=== PATIENT | female | born 1990 | race African-American/Black ===

== ENCOUNTER 2018-08-12 08:35 | Observation (INO) | payer OTHER ==
--- OUTSIDE RECORDS SUMMARY | 2018-08-12 08:40 | XMS REPORT | Clinical Summary ---
:1990 Author Organization Formerly [facility] Address [address] [place] [address] Care Team Providers Name Role Phone Radha Campos MD Primary Care Provider Allergies Active Allergy Reactions Severity Noted Date Comments Ondansetron Hcl (Pf) Nausea And Vomiting Low 07/10/2015 Medications Medication Sig Dispensed Refills Start Date End Date Status folic acid (FOLVITE) 1 MG Take 2 mg by 0 Active tabletIndications: folate mouth daily. deficiency penicillin v potassium Take 250 mg by 0 Active (VEETID) 250 MG tablet mouth every 12 (twelve) hours. HYDROmorphone (DILAUDID) Take 8 mg by 0 Active 8 MG tablet mouth every 6 (six) hours as needed for Pain. apixaban (ELIQUIS) 2.5 mg Take 2.5 mg by 0 Active Tab tablet mouth 2 (two) times daily. ALPRAZolam (XANAX) 1 MG Take 1 mg by 0 Active tablet mouth 2 (two) times daily as needed for Anxiety. PROAIR HFA 90 Inhale 1 puff 0 07/04/2018 Active mcg/actuation inhaler by mouth via inhaler every 6 (six) hours as needed. VITAMIN D2 50,000 unit Take 1 capsule 0 07/07/2018 Active capsule by mouth once a week. prochlorperazine Take 1 tablet 0 05/26/2018 Active (COMPAZINE) 10 MG tablet by mouth every 8 (eight) hours as needed nausea. Active Problems Problem Noted Date Leukocytosis 11/03/2015 Pneumonia 11/03/2015 Sickle cell anemia 07/11/2015 Sickle cell crisis 07/10/2015 Encounters Date Type Specialty Care Team Description 08/02/2018 - Hospital Encounter Oncology Dustin Jordan Sickle cell crisis (HCC) (Primary Dx); 08/10/2018 MD Woody Leukocytosis, unspecified type; Peter Reyes, Sickle cell pain crisis (HCC); Tamera Castano MD Sickle cell anemia with pain (HCC) Laith Mejia MD Changela, Kinjal M., MD 08/02/2018 Travel after 08/11/2017 Family History Medical History Relation Name Comments Unremarkable Brother Seizures Father Sickle cell trait Father Sickle cell trait Mother Unremarkable Sister Unremarkable Sister Relation Name Status Comments Brother Alive Father Alive Mother Alive Sister Alive Sister Alive Social History Tobacco Use Types Packs/Day Years Used Date Never Smoker Smokeless Tobacco: Never Used Alcohol Use Drinks/Week oz/Week Comments No Sex Assigned at Date Recorded Not on file Job Start Date Occupation Industry Not on file Not on file Not on file Travel History Travel Start Travel End No recent travel history available. Last Filed Vital Signs Vital Sign Reading Time Taken Blood Pressure 123/74 08/10/2018 11:00 AM CDT Pulse 75 08/10/2018 11:00 AM CDT Temperature 36.1 C (97 F) 08/10/2018 11:00 AM CDT Respiratory Rate 19 08/10/2018 11:59 AM CDT Oxygen Saturation 100% 08/10/2018 11:59 AM CDT Inhaled Oxygen Concentration - - Weight 74.8 kg (164 lb 12.8 oz) 08/04/2018 7:45 AM CDT Height 157.5 cm (5' 2") 08/02/2018 6:17 AM CDT Body Mass Index 30.14 08/04/2018 7:45 AM CDT Plan of Treatment Not on file Procedures Procedure Name Priority Date/Time Associated Comments Diagnosis TRANSFUSION SERVICE 08/10/2018 6:00 REPORT - SCAN PM CDT (CELLAVISION MANUAL Routine 08/10/2018 5:31 Results for this DIFF) AM CDT procedure are in the results section. CBC W/PLT COUNT & AUTO Routine 08/10/2018 5:31 Results for this DIFFERENTIAL AM CDT procedure are in the results section. CBC W/PLT COUNT & AUTO Routine 08/10/2018 5:31 Results for this DIFFERENTIAL AM CDT procedure are in the results section. RETICULOCYTE COUNT Routine 08/10/2018 5:31 Results for this AM CDT procedure are in the results section. PREPARE LEUKO-REDUCED Routine 08/09/2018 11:54 Results for this RBC PM CDT procedure are in the results section. TRANSFUSION SERVICE 08/09/2018 6:01 REPORT - SCAN PM CDT (CELLAVISION MANUAL Routine 08/09/2018 3:23 Results for this DIFF) AM CDT procedure are in the results section. CBC W/PLT COUNT & AUTO Routine 08/09/2018 3:23 Results for this DIFFERENTIAL AM CDT procedure are in the results section. CBC W/PLT COUNT & AUTO Routine 08/09/2018 3:23 Results for this DIFFERENTIAL AM CDT procedure are in the results section. RETICULOCYTE COUNT Routine 08/09/2018 3:23 Results for this AM CDT procedure are in the results section. TRANSFUSE Routine 08/08/2018 7:28 LEUKO-REDUCED RED PM CDT BLOOD CELLS TYPE AND SCREEN, Routine 08/08/2018 12:04 Results for this AUTOMATED PM CDT procedure are in the results section. CBC (HEMOGRAM ONLY) Routine 08/08/2018 9:48 Results for this AM CDT procedure are in the results section. (CELLAVISION MANUAL Routine 08/08/2018 5:20 Results for this DIFF) AM CDT procedure are in the results section. CBC W/PLT COUNT & AUTO Routine 08/08/2018 5:20 Results for this DIFFERENTIAL AM CDT procedure are in the results section. CBC W/PLT COUNT & AUTO Routine 08/08/2018 5:20 Results for this DIFFERENTIAL AM CDT procedure are in the results section. RETICULOCYTE COUNT Routine 08/08/2018 5:20 Results for this AM CDT procedure are in the results section. (CELLAVISION MANUAL CRISTINA 08/07/2018 4:31 Results for this DIFF) AM CDT procedure are in the results section. CBC W/PLT COUNT & AUTO Add-On 08/07/2018 4:31 Results for this DIFFERENTIAL AM CDT procedure are in the results section. CBC W/PLT COUNT & AUTO Add-On 08/07/2018 4:31 Results for this DIFFERENTIAL AM CDT procedure are in the results section. RETICULOCYTE COUNT Routine 08/07/2018 4:31 Results for this AM CDT procedure are in the results section. RETICULOCYTE COUNT Routine 08/06/2018 6:31 Results for this AM CDT procedure are in the results section. (CELLAVISION MANUAL Routine 08/05/2018 5:02 Results for this DIFF) AM CDT procedure are in the results section. CBC W/PLT COUNT & AUTO Routine 08/05/2018 5:02 Results for this DIFFERENTIAL AM CDT procedure are in the results section. RETICULOCYTE COUNT Routine 08/05/2018 5:02 Results for this AM CDT procedure are in the results section. CBC W/PLT COUNT & AUTO Routine 08/05/2018 5:02 Results for this DIFFERENTIAL AM CDT procedure are in the results section. PHOSPHORUS Routine 08/05/2018 5:02 Results for this AM CDT procedure are in the results section. MAGNESIUM Routine 08/05/2018 5:02 Results for this AM CDT procedure are in the results section. BASIC METABOLIC PANEL Routine 08/05/2018 5:02 Results for this (7) AM CDT procedure are in the results section. (CELLAVISION MANUAL Routine 08/04/2018 3:18 Results for this DIFF) AM CDT procedure are in the results section. CBC W/PLT COUNT & AUTO Routine 08/04/2018 3:18 Results for this DIFFERENTIAL AM CDT procedure are in the results section. RETICULOCYTE COUNT Routine 08/04/2018 3:18 Results for this AM CDT procedure are in the results section. CBC W/PLT COUNT & AUTO Routine 08/04/2018 3:18 Results for this DIFFERENTIAL AM CDT procedure are in the results section. PHOSPHORUS Routine 08/04/2018 3:18 Results for this AM CDT procedure are in the results section. MAGNESIUM Routine 08/04/2018 3:18 Results for this AM CDT procedure are in the results section. BASIC METABOLIC PANEL Routine 08/04/2018 3:18 Results for this (7) AM CDT procedure are in the results section. CBC W/PLT COUNT & AUTO Routine 08/03/2018 5:54 Results for this DIFFERENTIAL PM CDT procedure are in the results section. CBC W/PLT COUNT & AUTO Routine 08/03/2018 5:54 Results for this DIFFERENTIAL PM CDT procedure are in the results section. (CELLAVISION MANUAL Routine 08/03/2018 7:43 Results for this DIFF) AM CDT procedure are in the results section. CBC W/PLT COUNT & AUTO Routine 08/03/2018 7:43 Results for this DIFFERENTIAL AM CDT procedure are in the results section. CBC W/PLT COUNT & AUTO Routine 08/03/2018 7:43 Results for this DIFFERENTIAL AM CDT procedure are in the results section. RETICULOCYTE COUNT Routine 08/03/2018 7:43 Results for this AM CDT procedure are in the results section. (CELLAVISION MANUAL Routine 08/03/2018 2:46 Results for this DIFF) AM CDT procedure are in the results section. CBC W/PLT COUNT & AUTO Routine 08/03/2018 2:46 Results for this DIFFERENTIAL AM CDT procedure are in the results section. CBC W/PLT COUNT & AUTO Routine 08/03/2018 2:46 Results for this DIFFERENTIAL AM CDT procedure are in the results section. PHOSPHORUS Routine 08/03/2018 2:46 Results for this AM CDT procedure are in the results section. MAGNESIUM Routine 08/03/2018 2:46 Results for this AM CDT procedure are in the results section. BASIC METABOLIC PANEL Routine 08/03/2018 2:46 Results for this (7) AM CDT procedure are in the results section. CT CHEST PE TEST STAT 08/02/2018 1:37 Results for this DESIGN PM CDT procedure are in the results section. BLOOD CULTURE Routine 08/02/2018 11:18 Results for this AM CDT procedure are in the results section. SCREEN, Routine 08/02/2018 10:34 Results for this URINE AM CDT procedure are in the results section. URINALYSIS W/ REFLEX Routine 08/02/2018 10:34 Results for this URINE CULTURE AM CDT procedure are in the results section. BLOOD CULTURE Routine 08/02/2018 10:04 Results for this AM CDT procedure are in the results section. XR CHEST 2 VIEWS STAT 08/02/2018 3:49 Results for this AM CDT procedure are in the results section. CBC W/PLT COUNT & AUTO STAT 08/02/2018 2:23 Results for this DIFFERENTIAL AM CDT procedure are in the results section. RETICULOCYTE COUNT STAT 08/02/2018 2:23 Results for this AM CDT procedure are in the results section. COMPREHENSIVE STAT 08/02/2018 2:23 Results for this METABOLIC PANEL AM CDT procedure are in the results section. CBC W/PLT COUNT & AUTO STAT 08/02/2018 2:23 Results for this DIFFERENTIAL AM CDT procedure are in the results section. after 08/11/2017 Results TRANSFUSION SERVICE REPORT - SCAN (08/10/2018 6:00 PM CDT)Only the most recent of2 resultswithin the time period is included. Narrative Performed At Manual Differential (08/10/2018 5:31 AM CDT)Only the most recent of8 resultswithin the time period is included. % Neutros 55 % [facility] % Lymphs 26 % [facility] % Monos 13 % [facility] % Eos 1 % [facility] % Baso 2 % [facility] % Myelo 2 (H) 0 - 0 % [facility] % Promyelo 1 (H) 0 - 0 % [facility] # Neutros 7.26 (H) 1.56 - 6.13 K/ul [facility] # Lymphs 3.43 1.18 - 3.74 K/ul [facility] # Monos 1.72 (H) 0.24 - 0.36 K/uL [facility] # Eos 0.13 0.04 - 0.36 K/uL [facility] # Baso 0.26 (H) 0.01 - 0.08 K/uL [facility] # Myelo 0.26 (H) 0.00 - 0.00 K/uL [facility] # Promyelo 0.13 (H) 0.00 - 0.00 K/uL [facility] Total Counted 100 [facility] nRBC (manual) 20 (H) 0 - 0 /100 WBC [facility] WBC Morphology Normal [facility] Giant Platelet Present [facility] Polychromasia 2+ moderate [facility] Anisocytosis 1+ few [facility] Microcytes 1+ few [facility] Macrocytes 1+ few [facility] Poikilocytes 2+ moderate [facility] Target Cells 1+ few [facility] Schistocytes 1+ few [facility] Sickle Cells 2+ moderate [facility] Isabel Cells 1+ few [facility] Artifact Present [facility] Platelet Conc Adequate [facility] Specimen Blood Narrative Performed At Received comment: [facility] User comments: Slide comments: Performing Organization Address City/State/Zipcode Phone Number [facility] [address] [place] [address] [phone] CENTER CBC with platelet count + automated diff (08/10/2018 5:31 AM CDT)Only the most recent of10 resultswithin the time period is included. WBC 13.2 (H) 3.5 - 10.5 K/L [facility] RBC 2.47 (L) 3.93 - 5.22 M/L [facility] Hemoglobin 8.4 (L) 11.2 - 15.7 GM/DL [facility] Hematocrit 23.4 (L) 34.1 - 44.9 % [facility] MCV 94.7 79.4 - 94.8 fL [facility] MCH 34.0 (H) 25.6 - 32.2 pg [facility] MCHC 35.9 (H) 32.2 - 35.5 GM/DL [facility] RDW 22.4 (H) 11.7 - 14.4 % [facility] Platelets 448 150 - 450 K/CU MM [facility] MPV 10.9 9.4 - 12.3 fL [facility] nRBC 13 (H) 0 - 0 /100 WBC [facility] Specimen Blood Performing Organization Address [facility] Phone Number [address] [address] CENTER Reticulocyte count (08/10/2018 5:31 AM CDT)Only the most recent of9 resultswithin the time period is included. % Retic 25.0 (H) 0.5 - 1.7 % [facility] Specimen Blood Performing Organization Address [facility] Phone Number [facility] [address] [place] [phone] CENTER Prepare Leuko-Red RBC (08/09/2018 11:54 PM CDT) CROSSMATCH COMPATIBLE SAFETRACE TX Unit ABO O Pos SAFET[facility]ACE TX UNIT NUMBER [id number] [facility]ET[facility] TX Status TX_TIMEINCHART [facility] TX Blood Bank Product RED BLOOD CELLS [facility] [place] PRODUCT CODE [id number] [facility] [place] Specimen Other Performing Organization Address [facility] Phone Number [employer]AF[employer] [place] Transfuse Leuko-Red RBC (08/08/2018 7:28 PM CDT)Only the most recent of2 resultswithin the time period is included.Type and screen, automated (2018 12:04 PM CDT) ABO/RH AUTOMATED (BEAKER) O POSITIVE [facility] Ab Scrn NEGATIVE [facility] Specimen Blood - Portacath Performing Organization Address [facility] Phone Number [facility] [address] [place] [phone] CBC (Hemogram only) (08/08/2018 9:48 AM CDT) WBC 21.0 (H) 3.5 - 10.5 K/L [facility] RBC 1.77 (L) 3.93 - 5.22 M/L [facility] Hemoglobin 6.0 (LL) 11.2 - 15.7 GM/DL [facility] Hematocrit 16.9 (L) 34.1 - 44.9 % [facility] MCV 95.5 (H) 79.4 - 94.8 fL [facility] MCH 33.9 (H) 25.6 - 32.2 pg [facility] MCHC 35.5 32.2 - 35.5 GM/DL [facility] RDW 27.1 (H) 11.7 - 14.4 % [facility] Platelets 484 (H) 150 - 450 K/CU MM [facility] MPV 10.2 9.4 - 12.3 fL [facility] nRBC 13 (H) 0 - 0 /100 WBC [facility] Specimen Blood - Portacath Performing Organization Address City/[facility] Phone Number [address] [address] [phone] CENTER Phosphorus (08/05/2018 5:02 AM CDT)Only the most recent of3 resultswithin the time period is included. Phosphorus 3.8 2.3 - 4.7 mg/dL [facility] Specimen Blood - Central Venous Line Performing Organization Address [facility] Phone Number [address] [address] CENTER Magnesium (08/05/2018 5:02 AM CDT)Only the most recent of3 resultswithin the time period is included. Magnesium 1.8 1.6 - 2.6 mg/dL [facility] Specimen Blood - Central Venous Line Performing Organization Address [facility] Phone Number [address] [address] CENTER Basic metabolic panel (08/05/2018 5:02 AM CDT)Only the most recent of3 resultswithin the time period is included. Sodium 140 136 - 145 meq/L [facility] Potassium 3.6 3.5 - 5.1 meq/L [facility] Chloride 107 98 - 107 meq/L [facility] CO2 26 22 - 29 meq/L [facility] BUN 4 (L) 7 - 21 mg/dL [facility] Creatinine 0.57 0.57 - 1.25 mg/dL [facility] Glucose 109 (H) 70 - 105 mg/dL [facility] Calcium 8.8 8.4 - 10.2 mg/dL [facility] EGFR 155Comment: ESTIMATED GFR IS mL/min/1.73 sq m [facility] NOT ACCURATE [facility] CLE[facility] IN PREDICTING GLOMERULAR FILTRATION RATE. ESTIMATED GFR IS NOT APPLICABLE FOR DIALYSIS PATIENTS. Specimen Blood - Central Venous Line Narrative Performed At Specimen moderately icteric [facility] Performing Organization Address City/State/Zipcode Phone Number [facility] [address] [place] [address] chest for pulmonary embolus (08/02/2018 1:37 PM CDT) Narrative Performed At FINAL REPORT [employer] [facility] CT scan of the chest. MEDICAL HISTORY: Chest pain. COMPARISON STUDY: November 15, 2015. TECHNIQUE: Contiguous helical slices were acquired through the thorax post ministration of intravenous contrast. This exam was performed according to our department dose optimization program which includes automated exposure control, adjustment of the mA and/or kV according to the patient's size and/or use of iterative reconstruction technique. FINDINGS: The mediastinum demonstrates a 5 mm nodule in the left lobe of the thyroid gland for which no follow-up imaging is recommended. There is a small amount of pericardial fluid measuring approximately 7 mm. The heart is prominent in size. A left-sided Port-A-Cath is present. Some residual thymic tissue is seen. There are no pleural effusions. 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 The tracheobronchial tree is clear with no endobronchial lesions. The pulmonary parenchyma demonstrates a 1 cm cavitary lesion (previously 4.4 x 4.4 cm) in the right upper lobe. There is a 7 mm subpleural nodule in the left upper lobe, stable from previous on image 12. Other reticulonodular markings are seen scattered throughout the lung cruz with small groundglass opacities. Atelectasis or fibrosis in the lung bases. Bone windows demonstrate no acute abnormality. IMPRESSION: 1. Reticulonodular pulmonary opacities for which some degree of scarring or inflammatory change cannot be excluded but this is significantly less pronounced than on previous. 2. Cavitary lesion in the right upper lung field, significantly smaller than on previous. Signed: Ej Elaine MD Report Verified Date/Time:08/02/2018 14:01:29 Reading Location: [facility] [id number] Ortho Consult Reading Room Procedure Note Interface, External Ris In - 08/02/2018 2:03 PM CDT FINAL REPORT CT scan of the chest. MEDICAL HISTORY: Chest pain. COMPARISON STUDY: November 15, 2015. TECHNIQUE: Contiguous helical slices were acquired through the thorax post ministration of intravenous contrast. This exam was performed according to our department dose optimization program which includes automated exposure control, adjustment of the mA and/or kV according to the patient's size and/or use of iterative reconstruction technique. FINDINGS: The mediastinum demonstrates a 5 mm nodule in the left lobe of the thyroid gland for which no follow-up imaging is recommended. There is a small amount of pericardial fluid measuring approximately 7 mm. The heart is prominent in size. A left-sided Port-A-Cath is present. Some residual thymic tissue is seen. There are no pleural effusions. 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 The tracheobronchial tree is clear with no endobronchial lesions. The pulmonary parenchyma demonstrates a 1 cm cavitary lesion (previously 4.4 x 4.4 cm) in the right upper lobe. There is a 7 mm subpleural nodule in the left upper lobe, stable from previous on image 12. Other reticulonodular markings are seen scattered throughout the lung cruz with small groundglass opacities. Atelectasis or fibrosis in the lung bases. Bone windows demonstrate no acute abnormality. IMPRESSION: 1. Reticulonodular pulmonary opacities for which some degree of scarring or inflammatory change cannot be excluded but this is significantly less pronounced than on previous. 2. Cavitary lesion in the right upper lung field, significantly smaller than on previous. Signed: Ej Elaine MD Report Verified Date/Time: 08/02/2018 14:01:29 Reading Location: [address] Ortho Consult Reading Room Performing Organization Address [facility] Phone Number [facility] Blood Culture - Routine (Right Venipuncture) (08/02/2018 11:18 AM CDT)Only the most recent of2 resultswithin the time period is included. Result No growth in 5 days [facility] Specimen Blood - Central Venous Line Performing Organization Address [facility] [place] [address] [phone] CENTER Urinalysis w/Microscopic + Reflex to Culture (08/02/2018 10:34 AM CDT) Color, UA Yellow [facility] Clarity, UA Clear [facility] Specific [place], UA 1.008 1.001 - 1.035 [facility] pH, UA 5.5 5.0 - 8.0 [facility] Protein, UA 10 mg/dL (A) Negative [facility] Glucose, UA Negative Negative [facility] Ketones, UA Negative Negative [facility] Bilirubin, UA Negative Negative [facility] Blood, UA Negative Negative [facility] Nitrite, UA Negative Negative [facility] Leukocytes, UA Negative Negative [facility] Urobilinogen, UA 0.2 0.2 - 1.0 mg/dL [facility] RBC, UA 0 /HPF [facility] WBC, UA 1 /HPF [facility] Mucus Rare [facility] Squam Epithel, UA 1 /HPF [facility] Specimen Source [facility] Specimen Urine Performing Organization Address City/State/Zipcode Phone Number [facility] [address] [place] [phone] [facility] Screen, urine (08/02/2018 10:34 AM CDT) Preg Test, Ur Negative [facility] Specimen Urine Performing Organization Address [facility] Phone Number [address] [address] [facility] XR chest 2 views (08/02/2018 3:49 AM CDT) Narrative Performed At FINAL REPORT [facility] Examination: Two view Chest X-ray. CLINICAL HISTORY: Chest pain, history of sickle cell anemia COMPARISON: 7516 The cardiac silhouette is stable in its prominent size. There is central pulmonary vascular engorgement and bilateral perihilar interstitial opacity, suggesting pulmonary edema. There is no focal consolidation, pneumothorax, large pleural effusion or acute bony abnormality. A right upper lobe cavitary lesion seen on imaging at 2016 has resolved. A left IJ chest port is in place. Signed: Costa Ferris MD Report Verified Date/Time:08/02/2018 03:54:52 Reading Location: [address] Reading Room Procedure Note Interface, External Ris In - 08/02/2018 3:57 AM CDT FINAL REPORT Examination: Two view Chest X-ray. CLINICAL HISTORY: Chest pain, history of sickle cell anemia COMPARISON: 7516 The cardiac silhouette is stable in its prominent size. There is central pulmonary vascular engorgement and bilateral perihilar interstitial opacity, suggesting pulmonary edema. There is no focal consolidation, pneumothorax, large pleural effusion or acute bony abnormality. A right upper lobe cavitary lesion seen on imaging at 2016 has resolved. A left IJ chest port is in place. Signed: Costa Ferris MD Report Verified Date/Time: 08/02/2018 03:54:52 Reading Location: [address] Reading Room Performing Organization Address City/State/Zipcode Phone Number [facility] Comprehensive metabolic panel (08/02/2018 2:23 AM CDT) Protein, Total 9.0 (H) 6.0 - 8.5 gm/dL [facility] Albumin 4.9 3.5 - 5.0 g/dL [facility] Alkaline Phosphatase 66 30 - 115 U/L [facility] Total Bilirubin 3.1 (H) 0.1 - 1.2 mg/dL [facility] Sodium 143 135 - 148 meq/L [facility] Potassium 3.8 3.6 - 5.5 meq/L [facility] [facility] Chloride 109 (H) 98 - 106 meq/L [facility] CO2 26 24 - 32 meq/L [facility] BUN 2 (L) 10 - 26 mg/dL [facility] Creatinine 0.42 (L) 0.50 - 1.20 mg/dL [facility] Glucose 104 70 - 110 mg/dL [facility] Calcium 9.5 8.5 - 10.5 mg/dL [facility] AST 25 5 - 40 U/L [facility], [facility], [facility] ALT 18 5 - 50 U/L [facility], [facility], [facility] EGFR 221Comment: ESTIMATED mL/min/1.73 sq m [facility] [place] GFR IS NOT ACCURATE [facility], [facility] IN [facility], GLOMERULAR FILTRATION [facility] RATE. ESTIMATED GFR IS NOT APPLICABLE FOR DIALYSIS PATIENTS. Specimen Blood - Arm, Right Performing Organization Address City/State/Zipcode Phone Number [facility] [place] [id number] [place] [address] [facility], [facility], [facility] after 08/11/2017 Insurance Payer Benefit Plan / Subscriber ID Type Phone Address Group MEDICAID - MEDICAID [facility] [facility] xxxxxxxxx Medicaid Contracted [facility]GD CARE PLAN Advance Directives For more information, please contact:[facility] [place], [place] [phone] Code Status Date Activated Date Inactivated Comments Full Code 08/02/2018 7:12 AM 08/10/2018 4:40 PM This code status was determined by: Patient Full Code 07/10/2015 11:45 PM 07/14/2015 10:45 PM This code status was determined by: Patient
--- OUTSIDE RECORDS SUMMARY | 2018-08-12 08:42 | XMS REPORT | Continuity of Care Document ---
:1990 Author Organization Interface Problems Problem Status Onset Classification Date Comments Source Date Reported Abdominal pain Active Problem 05/08/2018 [facility] Acute bronchitis Active Problem 05/08/2018 [facility] Acute chest Active Problem 05/08/2018 [facility] syndrome [facility] Acute Active Problem 05/08/2018 [facility] streptococcal [facility] pharyngitis [facility] Anemia Active Problem 05/08/2018 [facility] Aphthous ulcer Active Problem 05/08/2018 [facility] Asthma Active Problem 05/08/2018 [facility] Bacteremia Active Problem 05/08/2018 [facility] Body aches Active Problem 05/08/2018 [facility] Bronchitis Active Problem 05/08/2018 [facility] Cannabis abuse Active Problem 05/08/2018 [facility] Chest pain Active Problem 05/08/2018 [facility] Constipation Active Problem 05/08/2018 [facility] Cough Active Problem 05/08/2018 [facility] DVT prophylaxis Active Problem 05/08/2018 [facility] Dehydration Active Problem 05/08/2018 [facility] Elevated Active Problem 05/08/2018 [facility] bilirubin [facility] Extremity pain Active Problem 05/08/2018 [facility] Fever Active Problem 05/08/2018 [facility] Generalized pain Active Problem 05/08/2018 [facility] 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 [facility] Hypokalemia Active Problem 05/08/2018 [facility] Hypotension Resolved Problem 05/08/2018 [facility] [id number] Active Problem 05/08/2018 [facility] [id number] Active Problem 05/08/2018 [facility] Itching Resolved Problem 05/08/2018 [facility] Leucocytosis Active Problem 05/08/2018 [facility] Leukocytosis Active Problem 05/08/2018 [facility] Pharyngitis Resolved Problem 05/08/2018 [facility] Pneumonia Active Problem 05/08/2018 [facility] Pneumonia Active Problem 05/08/2018 [facility] involving right [facility] lung [facility] Right lower lobe Active Problem 05/08/2018 [facility] pneumonia [facility] Sickle cell Active Problem 05/08/2018 [facility] anemia [facility] Sickle cell Active Problem 05/08/2018 [place] anemia with [facility] Sickle cell Active Problem 05/08/2018 [facility] disease [facility] Sickle cell pain Active Problem 05/08/2018 [facility] UTI Active Problem 05/08/2018 [facility] Pulmonary Resolved Problem 05/08/2018 [facility] embolism [facility] Upper Resolved Problem 05/08/2018 [facility] respiratory [facility] infection [facility] [id number] Diagnosis 04/11/2018 [facility] [id number] Diagnosis 04/11/2018 [facility] [id number] Diagnosis 04/11/2018 [facility] [id number] Diagnosis 04/11/2018 [facility] [id number] Diagnosis 04/11/2018 [facility] [id number] Diagnosis 04/11/2018 [facility] [id number] Diagnosis 04/11/2018 [facility] [id number] Diagnosis 04/11/2018 [facility] Medications Medication Details Route Status Patient Ordering Order Source Instructions Provider Date Alprazolam Twice A Day ORAL Active [facility] (Alprazolam*) 1 018 [facility] Mg Tab, 1 Mg Medical Oral Center Fluconazole For One Dose ORAL Active Castrejon [facility] (Diflucan 150 Only for 018 [facility] Mg *) 150 Mg Candidiasis Medical Tab, 1 Tab Oral Center Fluconazole For One Dose ORAL Active Castrejon [facility] (Diflucan 150 Only for 018 [facility] Mg *) 150 Mg Candidiasis Medical Tab Center Apixaban * Twice A Day ORAL Active Castrejon [facility] (Eliquis *) 5 for Pulmonary 018 [facility] Mg Tab Embolism Medical Center Cefdinir Twice A Day ORAL Active Castrejon [facility] (Omnicef) 300 for Uri 018 [facility] Mg Cap, 1 Cap Medical Oral Center Cefdinir Twice A Day ORAL Active Castrejon [facility] (Omnicef) 300 for [place] 018 Regional Mg Cap Medical Center Acetamin/Codein Every 6 Hours ORAL Active [place] [facility] e 300/30 Mg * As Needed for 018 Regional (Tylenol With Pain Medical Codeine #3 Center 300/30 Mg *) Tab, 1 Tab Oral Cefdinir Twice A Day ORAL Active [place] [facility] (Omnicef) 300 for Uti 018 Regional Mg Cap, 1 Cap Medical Oral Center Acetamin/Codein Every 6 Hours ORAL Active [place] [facility] e 300/30 Mg * As Needed for 018 [facility] (Tylenol With Pain Medical Codeine #3 Center 300/30 Mg *) Tab Cefdinir Twice A Day ORAL Active [place] [facility] (Omnicef) 300 for Uti 018 Regional Mg Cap Medical Center Hydromorphone Every 4 Hours ORAL Active [place] Hcl As Needed as 018 Regional (Hydromorphone needed for Ad Medical Hcl 4 Mg) 4 Mg Center Tab, 1 Tab Oral Rivaroxaban Daily ORAL Active [place] (Xarelto *) 20 018 [facility] Mg Tab, 1 Tab Medical Oral Center Rivaroxaban Active [facility] (Xarelto *) 15 018 [facility] Mg Tab, Medical Center Cefdinir Twice A Day ORAL Active Ben [facility] (Omnicef) 300 for Infection 017 Regional Mg Cap, 1 Cap Medical Oral Center Amoxicillin/Cla Twice A Day ORAL Active [place] [facility] vulanate for 017 Regional 875/125MG * Leukocytosis Medical (Augmentin*) Center 875 Mg Tab, 1 Tab Oral Cefdinir Every 12 Hours ORAL Active Castrejon [facility] (Omnicef) 300 for 016 [facility] Mg Cap, 300 Mg Pharyngitis Medical Oral Center Penicillin V Every 12 Hours ORAL Active [place] Potassium (Pen 016 [facility] V-K 250 Mg*) Medical 250 Mg Tab, 250 Center Mg Oral Folic Acid 1 Mg Daily ORAL Active [place] Tab, 2 Mg Oral 016 [facility] Folic Acid Daily ORAL Active [place] (Folic Acid 1 016 Regional Mg) 1 Mg Tab, 2 Medical Tab Oral Center Folic Acid 1 Mg Daily ORAL Active [place] Tab 016 [facility] Levofloxacin Daily ORAL Active Carlitos [facility] (Levaquin 500 016 Regional Mg*) 500 Mg Medical Tab, 1 Tab Oral Center Amoxicillin & Twice A Day ORAL Active Tonio [facility] Pot Clavulanate 016 Regional * (Augmentin *) Medical 875 Mg Tab, 1 Center Tab Oral Dextromethorpha Every 12 Hours ORAL Active Tonio [place] n-Guaifenesin * As Needed 015 Regional (Mucinex Dm Er Medical 30/600 Mg*) 1 Center Tab Tab, 1 Tab Oral Levofloxacin Once Daily ORAL Active Tonio [place] (Levaquin 500 015 Regional Mg*) 500 Mg Medical Tab, 500 Mg Center Oral Penicillin V Twice A Day ORAL Active [place] Potassium (Pen 015 [facility] V-K 250 Mg*) Medical 250 Mg Tab, 1 Center Tab Oral Hydromorphone Three Times ORAL Active Castrejon [facility] Hcl (Dilaudid 2 Daily As 015 Regional Mg*) 2 Mg Tab, Needed Medical 1 Tab Oral Center Acetaminophen Every 4 Hrs As ORAL Active Tonio [facility] W/ Codeine #3 * Needed as 015 [facility] (Tylenol needed for Medical Codeine #3 Pain Scale 3-7 Center 300MG/30MG *) 1 Tab Tab, 1 Tab Oral Acetaminophen Every 4 Hrs As ORAL Active Tonio [place] W/ Codeine #3 * Needed 015 Regional (Tylenol Medical Codeine #3 Center 300MG/30MG *) 1 Tab Tab, 1 Tab Oral Levofloxacin Daily ORAL Active Tonio [place] (Levaquin 500 015 Regional Mg*) 500 Mg Medical Tab, 500 Mg Center Oral Acetaminophen Every 4-6 ORAL Active Tonio [place] (Tylenol 325 Hours As 014 Regional Mg*) 325 Mg Needed as Medical Tab, 650 Mg needed for Center Oral Pain Scale 1-3 Pantoprazole * Daily ORAL Active Tonio [place] (Protonix Ec 40 014 Regional Mg*) 40 Mg Tab, Medical 40 Mg Oral Center Levofloxacin Daily ORAL Active Carlitos [facility] (Levaquin 500 014 Regional Mg*) 500 Mg Medical Tab, 500 Mg Center Oral Hydrocodone-Jorje Every 6 Hours ORAL Active Raslan [facility] taminophen As Needed 014 Regional 10/325MG* Medical ([place] 10/325 Center Mg *) 1 Tab Tab, 1 Tab Oral Levofloxacin Daily ORAL Active Raslan [place] (Levaquin 500 014 Regional Mg*) 500 Mg Medical Tab, 500 Mg Center Oral Cefdinir Every 12 Hours ORAL Active Raslan [place] (Omnicef) 300 014 Regional Mg Cap, 300 Mg Medical Oral Center Benzonatate Every 6 Hours ORAL Active Raslan [facility] (Tessalon *) As Needed as 013 Regional 100 Mg Cap, 100 needed for Medical Mg Oral Cough Center Cefdinir Every 12 Hours ORAL Active Raslan [place] (Omnicef) 300 013 Regional Mg Cap, 300 Mg Medical Oral Center Folic Acid Once Daily ORAL Active Raslan [place] (Folic Acid 1 013 Regional Mg) 1 Mg Tab, 1 Medical Mg Oral Center Hydromorphone Every 6 Hours ORAL Active [place] Hcl (Dilaudid 4 As Needed Regional Mg *) 4 Mg Tab Medical Center Alprazolam Twice A Day ORAL Active [place] (Alprazolam*) 1 Regional Mg Tab Medical Center Allergies, Adverse Reactions, Alerts Substance Category Reaction Severity Reaction Status Date Comments Source type Reported Ondansetron Severe Allergy to Active [facility] ([id number]) Substance 5 [facility] Sulfabenzamid Severe Allergy to Active [place] e Substance 8 [facility] ([id number]) [facility] Sulfacetamide Severe Allergy to Active [facility] ([id number]) Substance 8 [facility] Sulfathiazole Severe Allergy to Active [facility] ([id number]) Substance 8 [facility] Urea Severe Allergy to Active [facility] Substance 8 [facility] Immunizations Immunization Date Given Site Status Last Updated Comments Source Results Order Results Value Reference Date Interpretation Comments Source Name Range White blood 15.3 4.0 - 11.5 05/08 [place] cell count /2017 [facility] RBC count 2.28 3.80 - 05/08 [facility] 5.20 /2017 [facility] Blood 8.3 10.5 - 05/08 [place] hemoglobin 15.7 /2017 [facility] measurement Medical (mass/volume) Center Hematocrit 22.3 34.0 - 05/08 [place] 50.0 [facility] MCV (mean 97.8 78 - 98 05/08 [place] corpuscular /2017 [facility]) Medical determination Center Mean 36.2 26.2 - 05/08 [place] corpuscular 33.4 [facility] hemoglobin Medical ([facility]) Center determination Mean 37.0 31.5 - 05/08 [place] corpuscular 36.2 [facility] hemoglobin Medical concentration Center (MCHC) determination RDW 18.9 11.5 - 05/08 [place] 15.5 [facility] Platelets bld 317 137 - 338 05/08 [place] /2017 [facility] Blood platelet 6.1 8.4 - 11.8 05/08 [facility] mean volume /2017 [facility] Neutrophil 45 37.0 - 05/08 [place] count 80.0 [facility] Lymphocyte 53 10 - 50 05/08 [place] percentage /2017 [facility] Eosinophil 2 0 - 7 05/08 [place] count /2017 [facility] Absolute 2 0 05/08 [place] nucleated red /2017 [facility] blood cell Medical count Center Automated blood ADEQUATE ADEQUATE 05/08 [place] platelet count /2017 [facility] (count/volume) [facility] Blood 1+ 05/08 [place] polychromasia /2017 [facility] detection by Medical light Center microscopy Hypochromatic 1+ 05/08 [place] red blood cell /2017 [facility] detection Medical Center Poikilocyte 2+ 05/[place] detection [facility] Blood 1+ 05/08a anisocytosis /2017 [facility] Microcytosis SLIGHT 05/08a evaluation [facility] Macrocytes SLIGHT 05/[place] detection [facility] Target cell OCCASSIONAL 05/08rda detection [facility] Teardrop cell OCCASSIONAL 05/08rda detection [facility] Ovalocyte 1+ 05/08[place] detection [facility] Red blood cell OCCASSIONAL 05/08 stomatocyte /2017 [facility] Erythrocyte 1+ 05/08 sickle cell [facility] Glucose 86 74 - 106 05/08rda measurement [facility] Serum or plasma 6 - 05/08 urea nitrogen [facility] Medical (mass/volume) Center Osmolality ser 282 280 - 300 05/08 [facility] Creatinine 0.3 0.50 - 05/08 blood 0.90 [facility] Estimated null 05/08 glomerular Regional filtration rate Medical (GFR) Center determination Serum or plasma 20.0 - 05/08 urea [facility] nitrogen/creati Medical nine ratio Center Sodium level 143 135 - 145 05/08 [facility] Body fluid 4.2 3.5 - 5.2 05/08 potassium [facility] Chloride 109 98 - 108 05/08rda measurement [facility] CO2 23 21 - 32 05/08a [facility] Anion gap 15.2 - 05/08[place] measurement [facility] Calcium level 8.8 8.6 - 10.0 05/08[place] [facility] Total protein 6.4 6.6 - 8.7 05/08[place] [facility] Albumin 3.9 3.5 - 5.2 05/08[place] [facility] Globulin ser 2.5 05/08[place] [facility] Albumin-globuli 1.6 >1.0 12/27 [facility] n ratio ser [facility] Bilirubin total 4.4 0.0 - 1.2 05/08 [place] AST 21 15 - 32 05/08 [place] [facility] ALT (SGPT) 8 0 - 33 05/08 [place] ser/plas /2017 [facility] ALP ser/plas 69 35 - 105 05/08 [place] [facility] Color of Urine LIGHT YELLOW 05/07 [place] by Auto [facility] Medical Center Urine CLEAR CLEAR 05/07 [place] appearance [facility] determination [facility] Glucose NEGATIVE NEGATIVE 05/07 [facility] [Presence] in Regional Urine by Medical Automated test Center strip Urine total NEGATIVE NEGATIVE 05/07 [place] bilirubin [facility] measurement Medical (mass/volume) Center Ketones NEGATIVE NEGATIVE 05/07 [facility] [Mass/volume] Regional in Urine by Medical Automated test Center strip Specific 1.008 1.003 - 05/07 [place] gravity of 1.030 [facility] Urine by Medical Automated test Center strip Urine blood 2+ (MODERATE) NEGATIVE 05/07 [place] detection by [facility] dipstick Medical Center Urine pH 7.500 5 - 9 05/07 [facility] measurement /2017 [facility] Urine protein NEGATIVE NEGATIVE 05/07 [place] test by [facility] dipstick Medical Center Urine NORMAL 0.2 - 1.0 05/07 [place] urobilinogen [facility] detection Medical Center Nitrite ur NEGATIVE NEGATIVE 05/07 [place] dipstick [facility] Urine leukocyte NEGATIVE NEGATIVE 05/07 [place] esterase [facility] detection by Medical automated test Center strip RBC count ur null 0 - 5 05/07 [place] auto /2017 [facility] Leukocytes null 0 - 5 05/07 [place] [#/area] in Regional Urine sediment Medical by Automated Center count Epithelial null 0 - 5 05/07 [place] cells detection /2017 [facility] in urine Medical sediment by Center light microscopy Automated urine None Detected None 05/07 [place] sediment casts Detect Regional (number/area) Medical Center Urine Culture NO 05/07 [place] Reflexed [facility] Blood monocytes 8 0 - 12 12/26 [facility] manual count /2017 [facility] (number/volume) Medical Center Schistocytes RARE 05/07[place] detection [facility] Automated 2 0.00 - 20 05/07a erythrocyte [facility] sedimentation Medical rate (ESR) Center Serum beta NEGATIVE NEG 05/07 human chorionic [facility] gonadotropic [facility] ([facility]) Center detection Blood band 43.4 44.4 - 04/10a neutrophils/100 80.1 [facility] leukocytes Medical Center Body fluid 48.9 10.0 - 04/10a lymphocytes/100 50.0 [facility] leukocytes Medical Center [place] % 3.6 3.6 - 04/10 [place] 12.04 [facility] Eosinophil % 2.5 0.0 - 5.41 04/10 [place] [facility] Basophil % 1.7 0.0 - 0.79 04/10 [facility] Atypical 3 0 04/10a lymphocyte [facility] percentage Medical Center Phosphorus 3.9 2.5 - 4.5 04/10 [facility] Magnesium 1.8 1.6 - 2.6 04/10 [place] [facility] White blood 21.1 4.0 - 11.5 04/10a cell count [facility] RBC count 2.77 3.80 - 04/10[place] 5.20 [facility] Blood 9.0 10.5 - 04/10 [place] hemoglobin 15.7 [facility] measurement Medical (mass/volume) Center Hematocrit 26.6 34.0 - 04/10rda 50.0 [facility] MCV (mean 95.8 78 - 98 04/10[place] corpuscular /2017 [facility] volume) Medical determination Center Mean 32.4 26.2 - 04/10a corpuscular 33.4 [facility] hemoglobin Medical (MCH) Center determination Mean 33.8 31.5 - 04/10 [place] corpuscular 36.2 [facility] hemoglobin Medical concentration Center (MCHC) determination RDW 18.2 11.5 - 04/10[place] 15.5 [facility] Platelets bld 756 137 - 338 04/10rda [facility] Blood platelet 5.7 8.4 - 11.8 04/10 [place] mean volume /2017 [facility] Blood band 43.4 44.4 - 04/10a neutrophils/100 80.1 [facility] leukocytes [facility] Body fluid 48.9 10.0 - 04/10 [place] lymphocytes/100 50.0 [facility] leukocytes Medical [facility] [place] % 3.6 3.6 - 04/10 [place] 12.04 [facility] Eosinophil % 2.5 0.0 - 5.41 04/10 [place] [facility] Basophil % 1.7 0.0 - 0.79 04/10a [facility] Neutrophil 31 37.0 - 04/10a count 80.0 [facility] Lymphocyte 37 10 - 50 04/10 [place] percentage /2017 [facility] Atypical 3 0 04/10 [place] lymphocyte /2017 [facility] percentage [facility] Blood monocytes 20 0 - 12 04/10 [place] manual count /2017 [facility] (number/volume) Medical Center Eosinophil 9 0 - 7 04/10 [place] count /2017 [facility] Automated blood APPEAR ADEQUATE 04/10 [place] platelet count INCREASED /2017 [facility] (count/volume) Medical Center Blood 1+ 04/10[place] anisocytosis /2017 [facility] detection [facility] Erythrocyte 1+ 04/10 [place] sickle cell /2017 [facility] detection [facility] Serum or plasma 113 74 - 106 04/10a glucose /2017 [facility] measurement Medical (mass/volume) Center Serum or plasma 8 6 - 20 04/10a urea nitrogen [facility] measurement Medical (mass/volume) Center Osmolality ser 277 280 - 300 04/10 [place] [facility] Creatinine 0.5 0.50 - 04/10[place] measurement 0.90 [facility] Center Estimated null 04/10 glomerular /2017 [facility] filtration rate Medical (GFR) Center determination Serum or plasma 16.0 12 - 20 04/10 [place] urea /2017 [facility] nitrogen/creati Medical nine ratio Center Sodium level 139 135 - 145 04/10 [facility] Potassium 4.1 3.5 - 5.2 04/10 [facility] Chloride 105 98 - 108 04/10 [place] measurement [facility] CO2 24 21 - 32 04/10 [place] [facility] Anion gap 14.1 12 - 04/10[place] measurement [facility] Calcium level 9.0 8.6 - 10.0 04/10a [facility] Phosphorus 3.9 2.5 - 4.5 04/10a [facility] Magnesium 1.8 1.6 - 2.6 04/10 [facility] AST 16 15 - 32 04/10a [facility] ALP ser/plas 67 35 - 105 04/10a [facility] Vancomycin 5.7 04/06[place] trough [facility] Vancomycin 5.7 04/06 [place] trough [facility] Basophil % 1 0 - 3 04/05 [place] manual [facility] Basophil % 1 0 - 3 04/05 [place] manual [facility] Hypochromatic 1+ 04/05 [place] red blood cell [facility] Manual blood 1 0 - 3 04/04rda band [facility] neutrophils Medical form/100 Center leukocytes Automated blood LARGE NORMAL 04/04 platelet count [facility] (count/volume) [facility] Creatine kinase 27 20 - 180 04/04[place] measurement [facility] Troponin I null 0.0 - 0.5 04/04[place] ser/plas [facility] Serum or plasma null 0.0 - 3.6 04/04 creatine kinase [facility] MB (CK-MB) Medical measurement by Center immunoassay (mass/volume) Manual blood 1 0 - 3 04/04[place] band [facility] neutrophils Medical form/100 Center leukocytes Automated blood LARGE NORMAL 04/04a platelet count [facility] (count/volume) [facility] Troponin I null 0.0 - 0.5 04/04 [place] ser/plas 2018 [facility] Serum or plasma null 0.0 - 3.6 04/04a creatine kinase Regional MB (CK-MB) Medical measurement by Center immunoassay (mass/volume) Color of Urine YELLOW 04/04 [place] by Auto [facility] Medical Center Urine CLEAR CLEAR 04/04 [place] appearance [facility] determination Medical Center Glucose NEGATIVE NEGATIVE 04/04 [place] [Presence] in Regional Urine by Medical Automated test Center strip Urine total NEGATIVE NEGATIVE 04/04 [place] bilirubin [facility] measurement Medical (mass/volume) Center Ketones NEGATIVE NEGATIVE 04/04 [place] [Mass/volume] Regional in Urine by Medical Automated test Center strip Specific 1.014 1.003 - 04/04 [place] gravity of 1.030 [facility] Urine by Medical Automated test Center strip Urine blood 1+ (SMALL) NEGATIVE 04/04 [place] detection by [facility] [facility] Urine pH 6.000 5 - 9 04/04 [place] measurement /2017 [facility] Urine protein 1+ (30 mg/dL) NEGATIVE 04/04 [place] test by [facility] Urine NORMAL 0.2 - 1.0 04/04 [place] urobilinogen /2017 [facility] detection [facility] Center Nitrite ur NEGATIVE NEGATIVE 04/04 [place] dipstick /2017 [facility] Urine leukocyte NEGATIVE NEGATIVE 04/04 [place] esterase Regional detection by Medical automated test Center strip RBC count ur null 0 - 5 04/04 [place] auto [facility] Leukocytes null 0 - 5 04/04 [place] [#/area] in Regional Urine sediment Medical by Automated Center count Epithelial null 0 - 5 04/04 [place] cells detection Regional in urine Medical sediment by Center light microscopy Automated urine None Detected None 04/04 [place] sediment casts Detect [facility] (number/area) [facility] Center Urine Culture NO 04/04 [place] Reflexed [facility] Center Blood culture FINAL REPORT. 04/03 [place] /2017 [facility] Center Differential PATH REVIEW - 04/03 [place] Comment NEUTROPHILIA - Regional ANEMIA WITH Medical OCCASSIONAL Center SICKLE CELLS Differential PATH REVIEW - 04/03 [place] Comment NEUTROPHILIA - Regional ANEMIA WITH Medical OCCASSIONAL Center SICKLE CELLS Poikilocyte 2+ 04/02 [place] detection /2017 [facility] Target cell 2+ 04/02 [place] detection /2017 [facility] Prothrombin 10.9 10.3 - 04/01 [place] time 12. [facility] Whole blood INR 0.99 04/01 [place] measurement [facility] Whole blood INR 31.3 22. - 04/01 [place] measurement 37.0 [facility] Absolute 2 0 04/01 [place] nucleated red /2017 [facility] blood cell Medical count Center Schistocytes 1+ 04/01 [place] detection [facility] Prothrombin 10.9 10.3 - 04/01 [place] time 12. [facility] Whole blood INR 0.99 04/01 [place] measurement [facility] Whole blood INR 31.3 . - 04/01 [place] measurement 37.0 [facility] Platelet 1+ MACRO NORMAL 03/31 [place] morphology RBC. /2017 [facility] Platelet 1+ MACRO NORMAL 03/31 [place] morphology RBC. [facility] Bacterial urine Urine Bacteria [place] culture [facility] Vital Signs Vital Sign Value Date Comments Source Encounters Location Location Encounter Encounter Reason Attending ADM DC Status Source Details Type Number For Provider Date Date Visit Discharged [id number] [place] 03/31 04/11 [place] In[facility] 72 NAIMA MULLEN /2017 [facility] Discharged [id number] [place] 05/07 05/08 [place] In[facility] 93 NAIMA MULLEN /2017 [facility] (obs) [facility] Procedures Procedure Code Date Perfomer Comments Source X-ray of chest, [id number] 05/07/2018 IZZY [place] single view [facility] X-ray of chest, [id number] 04/09/2018 ISABELLA [facility] view [facility] TRANSFUSE NONAUT [id number] 04/03/2018 CARLITOS [place] RED BLOOD CELLS [facility], [id number] 04/03/2018 BEN [place] single view [facility] X-ray of chest, [id number] [facility] X-ray of chest, [id number] 03/31/2018 RIDDLE [place] single view [facility] Computed [id number] 03/31/2018 RIDDLE [place] tomography Regional angiography of [facility] chest for pulmonary embolism
--- OUTSIDE RECORDS SUMMARY | 2018-08-12 08:42 | XMS REPORT | Continuity of Care Document ---
:1990 Author Organization [facility] Address [address] [place] [address] Phone Unavailable Care Team Providers Name Role Phone TRAY SIDDIQUI PA-C Primary Care Physician Insurance Providers Guarantor Gume Ortega Address [address] [place] [address] Email [email or web address] Payer [facility] Policy Number [id number] Subscriber's Name Gume Ortega Relationship Self / Same As Patient Group Number [id number] Group Name NA Advance Directives Directive Response Recorded Date/Time Advance Directives No 01/29/16 12:37pm Advance Directive on File No 03/31/18 10:03pm Resuscitation Status Full Code 04/01/18 2:43pm Directive to Physicians/Living Will No 01/29/16 12:37pm Health Care Proxy No 01/29/16 12:37pm Organ Donor No 01/29/16 12:37pm Medical Power of Associate Chief Nurse No 01/29/16 12:37pm Patient/Family Given Education Material R/T Y - 03/31/18..AW 03/31/18 10: 03pm Directives? Chief Complaint and Reason for Visit Chief Complaint SICKLE CELL,PE Reason for Visit Anemia Sickle cell pain crisis Sickle cell disease Abdominal pain Fever Cough Acute chest syndrome Right lower lobe pneumonia Problems Medical Problem Onset Date Status Abdominal pain Unknown Acute Acute bronchitis Unknown Acute Acute chest syndrome Unknown Acute Acute streptococcal pharyngitis Unknown Acute Anemia Unknown Acute Aphthous ulcer Unknown Acute Asthma Unknown Acute Bacteremia Unknown Acute Body aches Unknown Acute Bronchitis Unknown Acute Cannabis abuse Unknown Acute Chest pain Unknown Acute Chest pain Unknown Acute Constipation Unknown Acute Cough Unknown Acute DVT prophylaxis Unknown Acute Dehydration Unknown Acute Elevated bilirubin Unknown Acute Extremity pain Unknown Acute Fever Unknown Acute Generalized pain Unknown Acute Generalized pain Unknown Acute 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 Hypokalemia Unknown Acute Hypotension Unknown Resolved [id number] Unknown Acute [id number] Unknown Acute Itching Unknown Resolved Leucocytosis Unknown Acute Leukocytosis Unknown Acute Pharyngitis Unknown Resolved Pneumonia Unknown Acute Pneumonia involving right lung Unknown Acute Right lower lobe pneumonia Unknown Sickle cell anemia Unknown Acute Sickle cell anemia Unknown Chronic Sickle cell anemia with crisis Unknown Acute Sickle cell disease Unknown Chronic Sickle cell pain crisis Unknown Acute Sickle cell pain crisis Unknown Acute Sickle cell pain crisis Unknown Acute Sickle cell pain crisis Unknown Acute Sickle cell pain crisis Unknown Acute Sickle cell pain crisis Unknown Acute Sickle cell pain crisis Unknown Acute Sickle cell pain crisis Unknown Acute Sickle cell pain crisis Unknown Acute Sickle cell pain crisis Unknown Acute Sickle cell pain crisis Unknown Acute Sickle cell pain crisis Unknown Acute Sickle cell pain crisis Unknown Chronic UTI (urinary tract infection) Unknown Acute UTI (urinary tract infection) Unknown Acute Past Problems Medical Problem Onset Date Status Pulmonary embolism Unknown Acute Upper respiratory infection Unknown Acute Medications Current Home Medications Medication Dose Units Route Directions Days Qty Instructions Start Date Acetamin/Codeine 1 Tab ORAL Every 6 Hours 30 Tablet 11/18/17 300/30 Mg * As Needed for (Tylenol With Pain Codeine #3 300/30 Mg *) Tab Alprazolam 1 Mg ORAL Twice A Day 60 Tablet (Alprazolam*) 1 Mg Tab Apixaban * 5 Mg ORAL Twice A Day 60 Tablet 04/10/18 (Eliquis *) 5 Mg for Pulmonary Tab Embolism Cefdinir 1 Cap ORAL Twice A Day 14 Cap 11/18/17 (Omnicef) 300 Mg for Uti Cap Cefdinir 1 Cap ORAL Twice A Day 10 Days 20 Cap 04/10/18 (Omnicef) 300 Mg for Uri Cap Fluconazole 1 Tab ORAL For One Dose 1 Days 1 Tablet 04/11/18 (Diflucan 150 Mg Only for *) 150 Mg Tab Candidiasis Folic Acid 1 Mg 2 Mg ORAL Daily 30 03/31/16 Tab Hydromorphone Hcl 8 Mg ORAL Every 4 Hours (Dilaudid 4 Mg *) As Needed 4 Mg Tab Past Home Medications Medication Directions Ordered Status Acetaminophen (Tylenol 325 Mg*) Every 4-6 Hours As Needed as 03/28/14 Discontinued 325 Mg Tab, 650 Mg Oral needed for Pain Scale 1-3 Acetaminophen W/ Codeine #3 * Every 4 Hrs As Needed as needed 09/22/14 Discontinued (Tylenol Codeine #3 300MG/30MG for Pain Scale 3-7 *) 1 Tab Tab, 1 Tab Oral Acetaminophen W/ Codeine #3 * Every 4 Hrs As Needed 08/14/14 Discontinued (Tylenol Codeine #3 300MG/30MG *) 1 Tab Tab, 1 Tab Oral Amoxicillin & Pot Clavulanate * Twice A Day 05/14/15 Discontinued (Augmentin *) 875 Mg Tab, 1 Tab Oral Amoxicillin/Clavulanate Twice A Day for Leukocytosis 06/20/16 Discontinued 875/125MG * (Augmentin*) 875 Mg Tab, 1 Tab Oral Benzonatate (Tessalon *) 100 Mg Every 6 Hours As Needed as 04/24/13 Discontinued Cap, 100 Mg Oral needed for Cough Cefdinir (Omnicef) 300 Mg Cap, 1 Twice A Day for Infection 07/13/16 Discontinued Cap Oral Cefdinir (Omnicef) 300 Mg Cap, Every 12 Hours for Pharyngitis 05/09/16 Discontinued 300 Mg Oral Cefdinir (Omnicef) 300 Mg Cap, Every 12 Hours 07/13/13 Discontinued 300 Mg Oral Cefdinir (Omnicef) 300 Mg Cap, Every 12 Hours 04/24/13 Discontinued 300 Mg Oral Dextromethorphan-Guaifenesin * Every 12 Hours As Needed 03/17/15 Discontinued (Mucinex Dm Er 30/600 Mg*) 1 Tab Tab, 1 Tab Oral Folic Acid (Folic Acid 1 Mg) 1 Daily Discontinued Mg Tab, 2 Tab Oral Folic Acid (Folic Acid 1 Mg) 1 Once Daily 04/24/13 Discontinued Mg Tab, 1 Mg Oral Hydrocodone-Acetaminophen Every 6 Hours As Needed 10/24/13 Discontinued 10/325MG* ([place] 10/325 Mg *) 1 Tab Tab, 1 Tab Oral Hydromorphone Hcl (Hydromorphone Every 4 Hours As Needed as Discontinued Hcl 4 Mg) 4 Mg Tab, 1 Tab Oral needed for Ad Hydromorphone Hcl (Dilaudid 2 Three Times Daily As Needed 12/14/14 Discontinued Mg*) 2 Mg Tab, 1 Tab Oral Levofloxacin (Levaquin 500 Mg*) Daily 02/10/16 Discontinued 500 Mg Tab, 1 Tab Oral Levofloxacin (Levaquin 500 Mg*) Once Daily 03/17/15 Discontinued 500 Mg Tab, 500 Mg Oral Levofloxacin (Levaquin 500 Mg*) Daily 08/14/14 Discontinued 500 Mg Tab, 500 Mg Oral Levofloxacin (Levaquin 500 Mg*) Daily 02/01/14 Discontinued 500 Mg Tab, 500 Mg Oral Levofloxacin (Levaquin 500 Mg*) Daily 10/24/13 Discontinued 500 Mg Tab, 500 Mg Oral Pantoprazole * (Protonix Ec 40 Daily 03/28/14 Discontinued Mg*) 40 Mg Tab, 40 Mg Oral Penicillin V Potassium (Pen V-K Every 12 Hours Discontinued 250 Mg*) 250 Mg Tab, 250 Mg Oral Penicillin V Potassium (Pen V-K Twice A Day Discontinued 250 Mg*) 250 Mg Tab, 1 Tab Oral Rivaroxaban (Xarelto *) 20 Mg Daily Discontinued Tab, 1 Tab Oral Rivaroxaban (Xarelto *) 15 Mg Discontinued Tab, Social History Social History Problem Response Recorded Date/Time Onset Date Status Hx Alcohol Use Yes 03/31/2018 10:03pm Not Applicable Not Applicable Hx Physical Abuse No 03/31/2018 10:03pm Not Applicable Not Applicable Smoking Status Start Date Stop Date Former smoker Hospital Discharge Instructions No hospital discharge instruction information available. Plan of Care Discharge Date 04/11/18 4:39pm Disposition PATIENT DISCHARGE HOME OR SELF Instructions/Education Provided Cefdinir capsules Pulmonary Embolism Apixaban oral tablets Community-Acquired Pneumonia, Adult, [id number] Forms Provided Portal Welcome Letter Prescriptions See Medication Section Care Plan and Goals OK TO DC IV AND DC HOME if Labs are improved FOLLOW-UP WITH PRIMARY CARE PROVIDER IN 1-2 WEEKS FOLLOW-UP WITH [facility] IN 1-2 WEEKS RETURN TO THE ER IF symptoms worsen CALL DR. MASON AT [phone] IF ANY QUESTIONS REGARDING HOSPITAL STAY. PLEASE CALL THE FLOOR AT [phone] IF ANY MEDICATION OR NURSING QUESTIONS Functional Status No functional status information available. Allergies, Adverse Reactions, Alerts Allergen Type Severity Reaction Status Last Updated Sulfabenzamide ([id number]) Allergy Severe Active 07/16/17 Sulfacetamide ([id number]) Allergy Severe Active 07/16/17 Sulfathiazole ([id number]) Allergy Severe Active 07/16/17 Urea Allergy Severe Active 07/16/17 Ondansetron ([id number]) Allergy Severe Active 08/11/14 Immunizations No immunization information available. Vital Signs Acute Vital Signs Vital Response Date/Time Blood Pressure 128/68 mm Hg 04/11/2018 4:14pm Pulse Pulse Rate (adult) 94 beats per minute (60 - 100) 04/11/2018 4:14pm Respiratory Rate 16 breaths per minute (10 - 24) 04/11/2018 4:14pm Temperature Source Oral 04/11/2018 4:14pm Results Laboratory Results Test Name Result Units Flags Reference Collection Result Comments Date/Time Date/Time White Blood 21.1 K/ul H 4.0-11.5 04/10/2018 04/10/2018 Count 8:07am 8:29am Red Blood 2.77 M/ul L 3.80-5.20 04/10/2018 04/10/2018 Count 8:07am 8:29am Hemoglobin 9.0 g/dl L 10.5-15.7 04/10/2018 04/10/2018 8:07am 8:29am Hematocrit 26.6 % L 34.0-50.0 04/10/2018 04/10/2018 8:07am 8:29am Mean 95.8 fl 78-98 04/10/2018 04/10/2018 Corpuscular 8:07am 8:29am Volume Mean 32.4 pg 26.2-33.4 04/10/2018 04/10/2018 Corpuscular 8:07am 8:29am Hemoglobin Mean 33.8 g/dl 31.5-36.2 04/10/2018 04/10/2018 Corpuscular 8:07am 8:29am Hemoglobin Concent Red Cell 18.2 % H 11.5-15.5 04/10/2018 04/10/2018 Distribution 8:07am 8:29am Width Platelet 756 K/ul H 137-338 04/10/2018 04/10/2018 Count 8:07am 8:29am Mean 5.7 fl L 8.4-11.8 04/10/2018 04/10/2018 Platelet 8:07am 8:29am Volume Neutrophils 43.4 % L 44.4-80.1 04/10/2018 04/10/2018 (%) (Auto) 8:07am 8:29am Lymphocytes 48.9 % 10.0-50.0 04/10/2018 04/10/2018 (%) (Auto) 8:07am 8:29am Monocytes 3.6 % 3.6-12.04 04/10/2018 04/10/2018 (%) (Auto) 8:07am 8:29am Eosinophils 2.5 % 0.0-5.41 04/10/2018 04/10/2018 (%) (Auto) 8:07am 8:29am Basophils 1.7 % H 0.0-0.79 04/10/2018 04/10/2018 (%) (Auto) 8:07am 8:29am Neutrophils 31 L 37.0-80.0 04/10/2018 04/10/2018 8:07am 11:00am Band 1 0-3 04/04/2018 04/04/2018 Neutrophils 5:08am 5:57am Lymphocytes 37 10-50 04/10/2018 04/10/2018 (Manual) 8:07am 11:00am Atypical 3 H 0 04/10/2018 04/10/2018 Lymphocytes 8:07am 11:00am Monocytes 20 H 0-12 04/10/2018 04/10/2018 (Manual) 8:07am 11:00am Eosinophils 9 H 0-7 04/10/2018 04/10/2018 (Manual) 8:07am 11:00am Basophils 1 0-3 04/05/2018 04/05/2018 (Manual) 4:02am 5:03am Nucleated 2 /100 WBC H 0 04/01/2018 04/01/2018 Red Blood 7:24am 8:29am Cells N/A 1+ MACRO NORMAL 03/31/2018 03/31/2018 RBC. 6:44pm 7:21pm 1+ ANISO NORMAL 03/31/2018 03/31/2018 RBC. 6:44pm 7:21pm 2+ POIK NORMAL 03/31/2018 03/31/2018 RBC. 6:44pm 7:21pm 1+ SICKLE NORMAL 03/31/2018 03/31/2018 CELLS RBC. 6:44pm 7:21pm 1+ ROULX NORMAL 03/31/2018 03/31/2018 RBC. 6:44pm 7:21pm Platelet APPEAR ADEQUATE 04/10/2018 04/10/2018 Estimate INCREASED 8:07am 11:00am Abnormal LARGE NORMAL 04/04/2018 04/04/2018 Platelet 5:08am 5:57am Morphology Hypochromasi 1+ H 04/05/2018 04/05/2018 a 4:02am 5:03am Poikilocytos 2+ 04/02/2018 04/02/2018 is 6:44am 7:48am Anisocytosis 1+ H 04/10/2018 04/10/2018 8:07am 11:00am Schistocytes 1+ H 04/01/2018 04/01/2018 7:24am 8:29am Target Cells 2+ H 04/02/2018 04/02/2018 6:44am 7:48am Sickle Cells 1+ H 04/10/2018 04/10/2018 8:07am 11:00am Differential PATH REVIEW 04/03/2018 04/09/2018 Comment 3:26am 5:05am - NEUTROPHILIA - ANEMIA WITH OCCASSIONAL SICKLE CELLS Prothrombin 10.9 SECONDS 10.3-12.3 04/01/2018 04/01/2018 Time 7:24am 7:57am THERAPEUTIC LEVEL: 1.5 to 1.9 times normal range of PT Prothromb 0.99 04/01/2018 04/01/2018 Time 7:24am 7:57am Recommended therapeutic range for patients receiving Internationa warfarin (coumadin) therapy: INR is 2.0 to 3.0 l Ratio Recommended range for patients with mechanical prosthetic heart valves: INR is 2.5 to 3.5 Activated 31.3 SECONDS 22.5-37.0 04/01/2018 04/01/2018 Partial 7:24am 7:57am Thromboplast Time Urine Color YELLOW 04/04/2018 04/04/2018 2:30am 2:43am Urine CLEAR CLEAR 04/04/2018 04/04/2018 Appearance 2:30am 2:43am Urine NEGATIVE NEGATIVE 04/04/2018 04/04/2018 Glucose 2:30am 2:43am Urine NEGATIVE NEGATIVE 04/04/2018 04/04/2018 Bilirubin 2:30am 2:43am Urine NEGATIVE NEGATIVE 04/04/2018 04/04/2018 Ketones 2:30am 2:43am Urine 1.014 1.003-1.03 04/04/2018 04/04/2018 Specific 0 2:30am 2:43am [place] Urine Blood 1+ (SMALL) H NEGATIVE 04/04/2018 04/04/2018 2:30am 2:43am Urine pH 6.000 5-9 04/04/2018 04/04/2018 2:30am 2:43am Urine 1+ (30 mg/dL) H NEGATIVE 04/04/2018 04/04/2018 Protein 2:30am 2:43am Urine NORMAL mg/dL 0.2-1.0 04/04/2018 04/04/2018 Urobilinogen 2:30am 2:43am Urine NEGATIVE NEGATIVE 04/04/2018 04/04/2018 Nitrate 2:30am 2:43am Urine NEGATIVE NEGATIVE 04/04/2018 04/04/2018 Leukocyte 2:30am 2:43am Esterase Urine RBC 1-5 /hpf 0-5 04/04/2018 04/04/2018 2:30am 2:43am Urine WBC 1-5 /hpf 0-5 04/04/2018 04/04/2018 2:30am 2:43am Urine 1-5 /hpf 0-5 04/04/2018 04/04/2018 Epithelial 2:30am 2:43am Cells Urine None Detected /hpf None 04/04/2018 04/04/2018 Bacteria Detect 2:30am 2:43am Urine Casts None Detected /lpf None 04/04/2018 04/04/2018 Detect 2:30am 2:43am Urine NO 04/04/2018 04/04/2018 Culture 2:30am 2:43am Reflexed Random 113 mg/dL H 74-106 04/10/2018 04/10/2018 Glucose 8:07am 8:43am Blood Urea 8 mg/dL 6-20 04/10/2018 04/10/2018 Nitrogen 8:07am 8:43am Serum 277 L 280-300 04/10/2018 04/10/2018 Osmolality 8:07am 8:43am Creatinine 0.5 mg/dL 0.50-0.90 04/10/2018 04/10/2018 8:07am 8:43am Glomerular > 60.00 04/10/2018 04/10/2018 GFR RESULTS ARE REPORTED IN mL/min/1.73m2. Filtration 8:07am 8:43am Rate Calc Normal GFR: >60mL/min Moderately decreased GFR: 30-59 mL/min Severely decreased GFR: 15-29 mL/min Kidney Failure (or Dialysis): <15 mL/min The calculated eGFR is not valid for patients younger than 18 years or older than 75 years. BUN/Creatini 16.0 12-04/10/2018 04/10/2018 ne Ratio 8:07am 8:43am Sodium Level 139 mmol/L 135-145 04/10/2018 04/10/2018 8:07am 8:43am Potassium 4.1 mmol/L 3.5-5.2 04/10/2018 04/10/2018 Level 8:07am 8:43am Chloride 105 mmol/L 98-108 04/10/2018 04/10/2018 Level 8:07am 8:43am Carbon 24 mmol/L 21-32 04/10/2018 04/10/2018 Dioxide 8:07am 8:43am Level Anion Gap 14.1 mEq/L 12-04/10/2018 04/10/2018 8:07am 8:43am Calcium 9.0 mg/dL 8.6-10.0 04/10/2018 04/10/2018 Level 8:07am 8:43am Phosphorus 3.9 mg/dL 2.5-4.5 04/10/2018 04/10/2018 Level 8:07am 8:43am Magnesium 1.8 mg/dL 1.6-2.6 04/10/2018 04/10/2018 Level 8:07am 8:43am Total 6.9 g/dL 6.6-8.7 04/10/2018 04/10/2018 Protein 8:07am 8:43am Albumin 3.3 g/dL L 3.5-5.2 04/10/2018 04/10/2018 8:07am 8:43am Globulin 3.6 gm/dL 04/10/2018 04/10/2018 8:07am 8:43am Albumin/Glob 0.9 >1.0 04/10/2018 04/10/2018 ulin Ratio 8:07am 8:43am Total 1.7 mg/dL H 0.0-1.2 04/10/2018 04/10/2018 Bilirubin 8:07am 8:43am Aspartate 16 U/L 15-32 04/10/2018 04/10/2018 Amino Transf 8:07am 8:43am (AST/SGOT) Alanine 11 U/L 0-33 04/10/2018 04/10/2018 Aminotransfe 8:07am 8:43am rase (ALT/SGPT) Total 67 U/L 35-105 04/10/2018 04/10/2018 Alkaline 8:07am 8:43am Phosphatase Vancomycin 5.7 ug/mL L 10-20 04/06/2018 04/06/2018 Level Trough 8:43pm 9:08pm Creatine 27 U/L 20-180 04/04/2018 04/04/2018 Kinase 5:08am 5:47am Troponin I < 0.30 ng/mL 0.0-0.5 04/04/2018 04/04/2018 Published clinical studies have shown elevations of cTnI in 5:08am 5:51am patients with myocardial injury, as seen in unstable angina pectoris, cardiac contusions, and heart transplants. Elevations have also been seen in patients with rhabdomyolysis and polymyositis. Elevated troponin levels point to myocardial injury, but are not necessarily indicative of an ischemic mechanism. The term TN should be used when there is evidence of cardiac damage, as detected by marker proteins in a clinical setting consistent with myocardial ischemia. If the clinical circumstance suggests that an ischemic mechanism is unlikely, other causes of cardiac injury should be considered. For diagnostic purposes, the results should always be assessed in conjunction with the patient's medical history, clinical examination and other findings. Creatine < 1.0 ng/ml 0.0-3.6 04/04/2018 04/04/2018 Kinase MB 5:08am 5:51am DIAGNOSTIC CITERIA: CKMB CKMB RELATIVE INDEX SUGGESTIVE OF NON-AMI < or=5 N/A CANO ZONE (INCONCLUSIVE) > 5 < or=4 SUGGESTIVE OF AMI >5 > 4 Microbiology Results Procedure Source Organism/Result Collection Result Date/Time Result Status Date/Time Blood Culture Blood FINAL REPORT. 04/03/2018 6:06pm 04/03/2018 6:12pm Final Procedures Procedure Status Date Provider(s) X-ray of chest, single view Completed 03/31/18 MEENU MONTALVOP Computed tomography angiography of chest Completed 03/31/18 MEENU MONTALVO ACNP for pulmonary embolism X-ray of chest, two views Completed 04/01/18 MEENU MONTALVO ACNP X-ray of chest, single view Completed 04/03/18 LEFTY CONTRERAS SOC ANALYST-C X-ray of chest, single view Completed 04/09/18 TYRON MASON MD Encounters Encounter Location Arrival/Admit Date Discharge/Depart Date Attending Provider Discharged [place] 03/31/18 8:01pm 04/11/18 4:39pm [place] MCNAMARA [facility] MD Medical Ctr Recent Diagnosis Anemia Sickle cell pain crisis Sickle cell disease Abdominal pain Fever Cough Acute chest syndrome Right lower lobe pneumonia
--- OUTSIDE RECORDS SUMMARY | 2018-08-12 08:43 | XMS REPORT | Continuity of Care Document ---
:1990 Author Organization [facility] Address [address] [place] [address] Phone Unavailable Care Team Providers Name Role Phone PHYSICIAN, NO Primary Care Physician Unavailable Insurance Providers Guarantor Gume Ortega Address [address] [place] [address] Email [email or web address] Policy Number [id number] Subscriber's Name Gume Ortega Relationship Self / Same As Patient Group Number [id number] Group Name NA Advance Directives Directive Response Recorded Date/Time Advance Directives No 01/29/16 12:37pm Advance Directive on File No 05/07/18 4:46am Directive to Physicians/Living Will No 01/29/16 12:37pm Health Care Proxy No 01/29/16 12:37pm Organ Donor No 01/29/16 12:37pm Medical Power of Tariff Publishing Agent No 01/29/16 12:37pm Patient/Family Given Education Material R/T Y - 05/07/18..AW 05/07/18 4: 46am Directives? Problems Medical Problem Onset Date Status Abdominal [...] Acute Hypokalemia Unknown Acute Hypotension Unknown Resolved [id number] Unknown Acute [id number] Unknown Acute Itching Unknown Resolved Leucocytosis Unknown [...] Route Directions Days Qty Instructions Start Date Apixaban * 5 Mg ORAL Twice A Day 60 Tablet 04/10/18 (Eliquis *) 5 Mg for Pulmonary Tab Embolism Hydromorphone Hcl 8 Mg ORAL Every 6 Hours (Dilaudid 4 Mg *) As Needed 4 Mg Tab Past Home Medications Medication Directions Ordered Status Acetamin/Codeine 300/30 Mg * Every 6 Hours As Needed for 11/18/17 Discontinued (Tylenol With Codeine #3 300/30 Pain Mg *) Tab, 1 Tab Oral Acetaminophen (Tylenol 325 Mg*) Every 4-6 Hours [...] *) 1 Tab Tab, 1 Tab Oral Alprazolam (Alprazolam*) 1 Mg Twice A Day Discontinued Tab, 1 Mg Oral Amoxicillin & Pot Clavulanate * Twice [...] Mg Cap, 1 Twice A Day for Uti 11/18/17 Discontinued Cap Oral Cefdinir (Omnicef) 300 Mg Cap, 1 Twice A Day for Uri 04/10/18 Discontinued Cap Oral Cefdinir (Omnicef) 300 Mg Cap, 1 Twice [...] Mg*) 1 Tab Tab, 1 Tab Oral Fluconazole (Diflucan 150 Mg *) For One Dose Only for 04/11/18 Discontinued 150 Mg Tab, 1 Tab Oral Candidiasis Folic Acid 1 Mg Tab, 2 Mg Oral Daily 03/31/16 Discontinued Folic Acid (Folic Acid 1 Mg) 1 Daily Discontinued Mg Tab, 2 Tab Oral Folic Acid (Folic Acid 1 Mg) 1 Once Daily 04/24/13 Discontinued Mg Tab, 1 Mg Oral Hydrocodone-Acetaminophen Every 6 Hours As Needed 10/24/13 Discontinued 10/325MG* (Whitney 10/325 Mg *) 1 Tab Tab, 1 [...] Onset Date Status Hx Alcohol Use Yes 05/07/2018 4:05am Not Applicable Not Applicable Hx Physical Abuse No 05/07/2018 4:05am Not Applicable Not Applicable Smoking Status Start Date Stop Date Former smoker Hospital Discharge Instructions No hospital discharge instruction information available. Plan of Care Discharge Date 05/08/18 2:06pm Disposition PATIENT DISCHARGE HOME OR SELF Instructions/Education Provided Sickle Cell Anemia, Adult, [id number] Forms Provided Portal Welcome Letter Prescriptions See Medication Section Additional Instructions/Education FOLLOW UP WITH PCP WITHIN 7 DAYS Functional Status No functional status information available. Allergies, Adverse Reactions, Alerts Allergen Type Severity Reaction Status Last Updated Sulfabenzamide ([id number]) Allergy Severe Active 07/16/17 Sulfacetamide ([id number]) Allergy Severe Active 07/16/17 Sulfathiazole ([id number]) Allergy Severe Active 07/16/17 Urea Allergy Severe Active 07/16/17 Ondansetron ([id number]) Allergy Severe Active 08/11/14 Immunizations No immunization information available. Vital Signs Acute Vital Signs Vital Response Date/Time Blood Pressure 110/54 mm Hg 05/08/2018 11:33am Pulse Pulse Rate (adult) 95 beats per minute (60 - 100) 05/08/2018 11:33am Respiratory Rate 17 breaths per minute (10 - 24) 05/08/2018 11:33am Temperature Source Oral 05/08/2018 11:33am Height 5 ft 4 in 05/07/2018 2:53am Weight 163.06 lb 05/08/2018 4:43am Body Mass Index 28.0 kg/m^2 05/08/2018 4:43am Results Laboratory Results Test Name Result Units Flags Reference Collection Result Comments Date/Time Date/Time White Blood 15.3 K/ul H 4.0-11.5 05/08/2018 05/08/2018 Count 5:31am 5:59am Red Blood 2.28 M/ul L 3.80-5.20 05/08/2018 05/08/2018 Count 5:31am 5:59am Hemoglobin 8.3 g/dl L 10.5-15.7 05/08/2018 05/08/2018 5:31am 5:59am Hematocrit 22.3 % L 34.0-50.0 05/08/2018 05/08/2018 5:31am 5:59am Mean 97.8 fl 78-98 05/08/2018 05/08/2018 Corpuscular 5:31am 5:59am Volume Mean 36.2 pg H 26.2-33.4 05/08/2018 05/08/2018 Corpuscular 5:31am 5:59am Hemoglobin Mean 37.0 g/dl H 31.5-36.2 05/08/2018 05/08/2018 Corpuscular 5:31am 5:59am Hemoglobin Concent Red Cell 18.9 % H 11.5-15.5 05/08/2018 05/08/2018 Distribution 5:31am 5:59am Width Platelet 317 K/ul # 137-338 05/08/2018 05/08/2018 Count 5:31am 5:59am Mean 6.1 fl L 8.4-11.8 05/08/2018 05/08/2018 Platelet 5:31am 5:59am Volume Neutrophils 45 37.0-80.0 05/08/2018 05/08/2018 5:31am 6:25am Lymphocytes 53 H 10-50 05/08/2018 05/08/2018 (Manual) 5:31am 6:25am Monocytes 8 0-12 05/07/2018 05/07/2018 (Manual) 3:13am 3:56am Eosinophils 2 0-7 05/08/2018 05/08/2018 (Manual) 5:31am 6:25am Nucleated 2 /100 WBC H 0 05/08/2018 05/08/2018 Red Blood 5:31am 6:25am Cells Platelet ADEQUATE ADEQUATE 05/08/2018 05/08/2018 Estimate 5:31am 6:25am Polychromasi 1+ 05/08/2018 05/08/2018 a 5:31am 6:25am Hypochromasi 1+ H 05/08/2018 05/08/2018 a 5:31am 6:25am Poikilocytos 2+ 05/08/2018 05/08/2018 is 5:31am 6:25am Anisocytosis 1+ H 05/08/2018 05/08/2018 5:31am 6:25am Microcytosis SLIGHT 05/08/2018 05/08/2018 5:31am 6:25am Macrocytosis SLIGHT H 05/08/2018 05/08/2018 5:31am 6:25am Schistocytes RARE H 05/07/2018 05/07/2018 3:13am 3:56am Target Cells OCCASSIONAL H 05/08/2018 05/08/2018 5:31am 6:25am Tear Drop OCCASSIONAL H 05/08/2018 05/08/2018 Cells 5:31am 6:25am Ovalocytes 1+ H 05/08/2018 05/08/2018 5:31am 6:25am Stomatocytes OCCASSIONAL H 05/08/2018 05/08/2018 5:31am 6:25am Sickle Cells 1+ H 05/08/2018 05/08/2018 5:31am 6:25am Erythrocyte 2 mm/hr 0.00-20 05/07/2018 05/07/2018 Sedimentatio 3:13am 4:00am n Rate Urine Color LIGHT YELLOW 05/07/2018 05/07/2018 4:17am 4:22am Urine CLEAR CLEAR 05/07/2018 05/07/2018 Appearance 4:17am 4:22am Urine NEGATIVE NEGATIVE 05/07/2018 05/07/2018 Glucose 4:17am 4:22am Urine NEGATIVE NEGATIVE 05/07/2018 05/07/2018 Bilirubin 4:17am 4:22am Urine NEGATIVE NEGATIVE 05/07/2018 05/07/2018 Ketones 4:17am 4:22am Urine 1.008 1.003-1.03 05/07/2018 05/07/2018 Specific 0 4:17am 4:22am [place] Urine Blood 2+ (MODERATE) H NEGATIVE 05/07/2018 05/07/2018 4:17am 4:22am Urine pH 7.500 5-9 05/07/2018 05/07/2018 4:17am 4:22am Urine NEGATIVE NEGATIVE 05/07/2018 05/07/2018 Protein 4:17am 4:22am Urine NORMAL mg/dL 0.2-1.0 05/07/2018 05/07/2018 Urobilinogen 4:17am 4:22am Urine NEGATIVE NEGATIVE 05/07/2018 05/07/2018 Nitrate 4:17am 4:22am Urine NEGATIVE NEGATIVE 05/07/2018 05/07/2018 Leukocyte 4:17am 4:22am Esterase Urine RBC 1-5 /hpf 0-5 05/07/2018 05/07/2018 4:17am 4:25am Urine WBC 1-5 /hpf 0-5 05/07/2018 05/07/2018 4:17am 4:25am Urine 1-5 /hpf 0-5 05/07/2018 05/07/2018 Epithelial 4:17am 4:25am Cells Urine None Detected /hpf None 05/07/2018 05/07/2018 Bacteria Detect 4:17am 4:25am Urine Casts None Detected /lpf None 05/07/2018 05/07/2018 Detect 4:17am 4:25am Urine NO 05/07/2018 05/07/2018 Culture 4:17am 4:25am Reflexed Random 86 mg/dL 74-106 05/08/2018 05/08/2018 Glucose 5:31am 6:18am Blood Urea 6 mg/dL 6-20 05/08/2018 05/08/2018 Nitrogen 5:31am 6:18am Serum 282 280-300 05/08/2018 05/08/2018 Osmolality 5:31am 6:18am Creatinine 0.3 mg/dL L 0.50-0.90 05/08/2018 05/08/2018 5:31am 6:18am Glomerular > 60.00 05/08/2018 05/08/2018 GFR RESULTS ARE REPORTED IN mL/min/1.73m2. Filtration 5:31am 6:18am Rate Calc Normal GFR: >60mL/min Moderately decreased GFR: 30-59 mL/min Severely decreased GFR: 15-29 mL/min Kidney Failure (or Dialysis): <15 mL/min The calculated eGFR is not valid for patients younger than 18 years or older than 75 years. BUN/Creatini 20.0 12-05/08/2018 05/08/2018 ne Ratio 5:31am 6:18am Sodium Level 143 mmol/L 135-145 05/08/2018 05/08/2018 5:31am 6:18am Potassium 4.2 mmol/L 3.5-5.2 05/08/2018 05/08/2018 Level 5:31am 6:18am Chloride 109 mmol/L H 98-108 05/08/2018 05/08/2018 Level 5:31am 6:18am Carbon 23 mmol/L 21-32 05/08/2018 05/08/2018 Dioxide 5:31am 6:18am Level Anion Gap 15.2 mEq/L 05-0105/08/2018 05/08/2018 5:31am 6:18am Calcium 8.8 mg/dL 8.6-10.0 05/08/2018 05/08/2018 Level 5:31am 6:18am Total 6.4 g/dL L 6.6-8.7 05/08/2018 05/08/2018 Protein 5:31am 6:18am Albumin 3.9 g/dL 3.5-5.2 05/08/2018 05/08/2018 5:31am 6:18am Globulin 2.5 gm/dL 05/08/2018 05/08/2018 5:31am 6:18am Albumin/Glob 1.6 >1.0 05/08/2018 05/08/2018 ulin Ratio 5:31am 6:18am Total 4.4 mg/dL H 0.0-1.2 05/08/2018 05/08/2018 Bilirubin 5:31am 6:18am Aspartate 21 U/L 15-32 05/08/2018 05/08/2018 Amino Transf 5:31am 6:18am (AST/SGOT) Alanine 8 U/L 0-33 05/08/2018 05/08/2018 Aminotransfe 5:31am 6:18am rase (ALT/SGPT) Total 69 U/L 35-105 05/08/2018 05/08/2018 Alkaline 5:31am 6:18am Phosphatase Serum NEGATIVE NEG 05/07/2018 05/07/2018 3:13am 3:42am If a negative result is obtained but is suspected, Test, a new specimen should be collected after 48-72 hours and Qualitative tested. If waiting 48 hrs is not medically advisable , the test result should be confirmed with at quantitative hCG assay. Neutrophils 43.4 % L 44.4-80.1 04/10/2018 04/10/2018 (%) (Auto) 8:07am 8:29am Lymphocytes 48.9 % 10.0-50.0 04/10/2018 04/10/2018 (%) (Auto) 8:07am 8:29am Monocytes 3.6 % 3.6-12.04 04/10/2018 04/10/2018 (%) (Auto) 8:07am 8:29am Eosinophils 2.5 % 0.0-5.41 04/10/2018 04/10/2018 (%) (Auto) 8:07am 8:29am Basophils 1.7 % H 0.0-0.79 04/10/2018 04/10/2018 (%) (Auto) 8:07am 8:29am Band 1 0-3 04/04/2018 04/04/2018 Neutrophils 5:08am 5:57am Atypical 3 H 0 04/10/2018 04/10/2018 Lymphocytes 8:07am 11:00am Basophils 1 0-3 04/05/2018 04/05/2018 (Manual) 4:02am 5:03am N/A 1+ MACRO NORMAL 03/31/2018 03/31/2018 RBC. 6:44pm 7:21pm 1+ ANISO NORMAL 03/31/2018 03/31/2018 RBC. 6:44pm 7:21pm 2+ POIK NORMAL 03/31/2018 03/31/2018 RBC. 6:44pm 7:21pm 1+ SICKLE NORMAL 03/31/2018 03/31/2018 CELLS RBC. 6:44pm 7:21pm 1+ ROULX NORMAL 03/31/2018 03/31/2018 RBC. 6:44pm 7:21pm Abnormal LARGE NORMAL 04/04/2018 04/04/2018 Platelet 5:08am 5:57am Morphology Differential PATH REVIEW 04/03/2018 04/09/2018 Comment 3:26am [...] 04/01/2018 04/01/2018 Partial 7:24am 7:57am Thromboplast Time Phosphorus 3.9 mg/dL 2.5-4.5 04/10/2018 04/10/2018 Level 8:07am 8:43am Magnesium 1.8 mg/dL 1.6-2.6 04/10/2018 04/10/2018 Level 8:07am 8:43am Vancomycin 5.7 ug/mL L 10-20 04/06/2018 04/06/2018 [...] indicative of an ischemic mechanism. The term [place] should be used when there is evidence [...] 6:12pm Final Procedures Procedure Status Date Provider(s) TRANSFUSE NONAUT RED BLOOD CELLS IN Completed 04/03/18 AMY ALONZO JR, MD PERIPH VEIN, PERC X-ray of chest, single view Completed 03/31/18 MEENU MONTALVO Computed tomography angiography of chest Completed 03/31/18 MEENU MONTALVOP for pulmonary embolism X-ray of chest, two views Completed 04/01/18 MEENU MONTALVO X-ray of chest, single view Completed 04/03/18 LEFTY CONTRERAS CNA CAREGIVER-C X-ray of chest, single view Completed 04/09/18 TYRON MASON MD X-ray of chest, single view Completed 05/07/18 CHAU MAGANA MD Encounters Encounter Location Arrival/Admit Date Discharge/Depart Date Attending Provider Discharged [place] 05/07/18 3:50am 05/08/18 2:06pm ORIANA MCNAMARA Inpatient (obs) [facility] Discharged [place] 03/31/18 8:01pm 04/11/18 4:39pm ORIANA MCNAMARA [facility]
--- OUTSIDE RECORDS SUMMARY | 2018-08-12 08:44 | XMS REPORT ---
:1990 Author Organization [facility] Address [address] [place] [address] Care Team Providers Name Role Phone ASHLEY WOODRUFF Unavailable Unavailable Payers Payer Name Policy Type Policy Number Effective Date Expiration Date Problems This patient has no known problems. Allergies, Adverse Reactions, Alerts Allergy Allergy Status Severity Reaction(s) Onset Inactive Treating Comments Name Type Date Date Clinician morphine DA Active SV 2009-07 00:00:0 0 TEGEDERM DA Active HI 2008-12 00:00:0 0 Medications This patient has no known medications. Results Test Description Test Time Test Comments Text Results Atomic Results Result Comments CBC W/PLT COUNT & AUTO DIFFERENTIAL 2018-08-10 08:25:00 Test Item Value Reference Range Comments WHITE BLOOD CELL COUNT (BEAKER) (test sqmy=417) 13.2 K/ L 3.5-10.5 RED BLOOD CELL COUNT (BEAKER) (test bres=604) 2.47 M/ L 3.93-5.22 HEMOGLOBIN (BEAKER) (test zdns=478) 8.4 GM/DL 11.2-15.7 HEMATOCRIT (BEAKER) (test qzdw=555) 23.4 % 34.1-44.9 MEAN CORPUSCULAR VOLUME (BEAKER) (test cpvb=890) 94.7 fL 79.4-94.8 MEAN CORPUSCULAR HEMOGLOBIN (BEAKER) (test usxj=215) 34.0 pg 25.6-32.2 MEAN CORPUSCULAR HEMOGLOBIN CONC (BEAKER) (test vexd=607) 35.9 GM/DL 32.2- 35.5 RED CELL DISTRIBUTION WIDTH (BEAKER) (test wsjo=539) 22.4 % 11.7-14.4 PLATELET COUNT (BEAKER) (test syur=601) 448 K/CU MM 150-450 MEAN PLATELET VOLUME (BEAKER) (test alvb=641) 10.9 fL 9.4-12.3 NUCLEATED RED BLOOD CELLS (BEAKER) (test ocln=958) 13 /100 WBC 0-0 (CELLAVISION MANUAL DIFF)2018-08-10 08:25:00 Test Item Value Reference Range Comments NEUTROPHILS - REL (CELLAVISION)(BEAKER) (test 55 % fyjj=2950) LYMPHOCYTES - REL (CELLAVISION)(BEAKER) (test 26 % vkyj=7482) MONOCYTES - REL (CELLAVISION)(BEAKER) (test 13 % rcfe=9925) EOSINOPHILS - REL (CELLAVISION)(BEAKER) (test 1 % fncm=1379) BASOPHILS - REL (CELLAVISION)(BEAKER) (test 2 % ngbv=1854) MYELOCYTES - REL (CELLAVISION)(BEAKER) (test 2 % 0-0 bkgc=9065) PROMYELOCYTES - REL (CELLAVSION)(BEAKER) (test 1 % 0-0 zyfv=6903) NEUTROPHILS - ABS (CELLAVISION)(BEAKER) (test 7.26 K/ul 1.56-6.13 mxir=8484) LYMPHOCYTES - ABS (CELLAVISION)(BEAKER) (test 3.43 K/ul 1.18-3.74 xpzw=7708) MONOCYTES - ABS (CELLAVISION)(BEAKER) (test 1.72 K/uL 0.24-0.36 ypts=2042) EOSINOPHILS - ABS (CELLAVISION)(BEAKER) (test 0.13 K/uL 0.04-0.36 youf=5142) BASOPHILS - ABS (CELLAVISION)(BEAKER) (test 0.26 K/uL 0.01-0.08 gfoe=8802) MYELOCYTES-ABS (CELLAVISION)(BEAKER) (test 0.26 K/uL 0.00-0.00 qgzs=7507) PROMYELOCYTES - ABS (CELLAVISION)(BEAKER) (test 0.13 K/uL 0.00-0.00 uslo=2643) TOTAL COUNTED (BEAKER) (test ggub=7386) 100 MANUAL NRBC PER 100 CELLS (BEAKER) (test 20 /100 WBC 0-0 zcbn=2489) WBC MORPHOLOGY (BEAKER) (test mpip=941) Normal GIANT PLATELETS (BEAKER) (test crjb=159) Present POLYCHROMATOPHILLIC RBCS(BEAKER) (test jhyu=655) 2+ moderate ANISOCYTOSIS (BEAKER) (test fkqe=623) 1+ few MICROCYTES (BEAKER) (test ysbq=715) 1+ few MACROCYTES (BEAKER) (test pgub=018) 1+ few POIKILOCYTES (BEAKER) (test bjjc=971) 2+ moderate TARGET CELLS (BEAKER) (test ffuo=340) 1+ few SCHISTOCYTES (BEAKER) (test lzdb=378) 1+ few SICKLE CELLS (BEAKER) (test bmhs=435) 2+ moderate MARISA CELLS (BEAKER) (test oyqi=780) 1+ few ARTIFACT (CELLAVISION)(BEAKER) (test thnb=0476) Present PLATELET CONCENTRATION (CELLAVISION)(BEAKER) Adequate (test oict=5576) Received comment: User comments: Slide comments:RETICULOCYTE [id number] 08: 06:00 Test Item Value Reference Range Comments RETICULOCYTE COUNT PCT (BEAKER) (test ikvo=487) 25.0 % 0.5-1.7 CBC W/PLT COUNT & AUTO [id number] 09:27:00 Test Item Value Reference Range Comments WHITE BLOOD CELL COUNT (BEAKER) (test uowm=916) 17.2 K/ L 3.5-10.5 RED BLOOD CELL COUNT (BEAKER) (test koeh=730) 2.38 M/ L 3.93-5.22 HEMOGLOBIN (BEAKER) (test sgpc=148) 8.0 GM/DL 11.2-15.7 HEMATOCRIT (BEAKER) (test inja=642) 22.6 % 34.1-44.9 MEAN CORPUSCULAR VOLUME (BEAKER) (test rkha=987) 95.0 fL 79.4-94.8 MEAN CORPUSCULAR HEMOGLOBIN (BEAKER) (test 33.6 pg 25.6-32.2 nidz=023) MEAN CORPUSCULAR HEMOGLOBIN CONC (BEAKER) (test 35.4 GM/DL 32.2-35.5 djrc=329) RED CELL DISTRIBUTION WIDTH (BEAKER) (test 23.0 % 11.7-14.4 vywn=962) PLATELET COUNT (BEAKER) (test etmz=811) 462 K/CU MM 150-450 MEAN PLATELET VOLUME (BEAKER) (test wvmk=988) 10.7 fL 9.4-12.3 NUCLEATED RED BLOOD CELLS (BEAKER) (test 16 /100 WBC 0-0 rrcw=973) (CELLAVISION MANUAL DIFF)2018-08-09 09:27:00 Test Item Value Reference Range Comments NEUTROPHILS - REL (CELLAVISION)(BEAKER) (test 58 % uijx=2604) LYMPHOCYTES - REL (CELLAVISION)(BEAKER) (test 22 % iedv=9104) MONOCYTES - REL (CELLAVISION)(BEAKER) (test 16 % jgxz=1293) BASOPHILS - REL (CELLAVISION)(BEAKER) (test 3 % rlff=2488) NEUTROPHILS - ABS (CELLAVISION)(BEAKER) (test 9.98 K/ul 1.56-6.13 yzmz=2568) LYMPHOCYTES - ABS (CELLAVISION)(BEAKER) (test 3.78 K/ul 1.18-3.74 dyni=0473) MONOCYTES - ABS (CELLAVISION)(BEAKER) (test 2.75 K/uL 0.24-0.36 bbzw=5959) BASOPHILS - ABS (CELLAVISION)(BEAKER) (test 0.52 K/uL 0.01-0.08 kvvr=3223) TOTAL COUNTED (BEAKER) (test fvml=0840) 100 MANUAL NRBC PER 100 CELLS (BEAKER) (test 29 /100 WBC 0-0 nfhb=7109) GIANT PLATELETS (BEAKER) (test zeab=849) Present PLASMACYTOID LYMPHS(BEAKER) (test ftsm=5177) Present POLYCHROMATOPHILLIC RBCS(BEAKER) (test viam=357) 2+ moderate HYPOCHROMIA (BEAKER) (test mxwo=566) 1+ few ANISOCYTOSIS (BEAKER) (test osvo=589) 2+ moderate MACROCYTES (BEAKER) (test opia=700) 2+ moderate POIKILOCYTES (BEAKER) (test rsvg=141) 2+ moderate TARGET CELLS (BEAKER) (test bjlf=597) 1+ few SICKLE CELLS (BEAKER) (test rqzq=324) 2+ moderate ELLIPTOCYTES (BEAKER) (test bcyc=733) 2+ moderate OVALOCYTES (BEAKER) (test zhrb=059) 1+ few BURT-JOLLY BODIES (BEAKER) (test uvxq=275) 2+ moderate ARTIFACT (CELLAVISION)(BEAKER) (test uzhv=6085) Present PAPPENHEIMER (CELLAVISION)(BEAKER) (test 1+ few bcly=2193) PLATELET CONCENTRATION (CELLAVISION)(BEAKER) Increased (test ruiy=2916) Received comment: User comments: Slide comments:RETICULOCYTE [id number] 05: 01:00 Test Item Value Reference Range Comments RETICULOCYTE COUNT PCT (BEAKER) (test noqq=044) 21.6 % 0.5-1.7 CBC W/PLT COUNT & AUTO [id number] 15:17:00 Test Item Value Reference Range Comments WHITE BLOOD CELL COUNT (BEAKER) (test coph=202) 23.1 K/ L 3.5-10.5 RED BLOOD CELL COUNT (BEAKER) (test huji=681) 1.76 M/ L 3.93-5.22 HEMOGLOBIN (BEAKER) (test fasv=162) 6.1 GM/DL 11.2-15.7 HEMATOCRIT (BEAKER) (test ndrf=607) 17.3 % 34.1-44.9 MEAN CORPUSCULAR VOLUME (BEAKER) (test fbdx=215) 98.3 fL 79.4-94.8 MEAN CORPUSCULAR HEMOGLOBIN (BEAKER) (test 34.7 pg 25.6-32.2 mzyh=820) MEAN CORPUSCULAR HEMOGLOBIN CONC (BEAKER) (test 35.3 GM/DL 32.2-35.5 kfbo=567) RED CELL DISTRIBUTION WIDTH (BEAKER) (test 27.9 % 11.7-14.4 lozp=963) PLATELET COUNT (BEAKER) (test ldpr=055) 502 K/CU MM 150-450 MEAN PLATELET VOLUME (BEAKER) (test qjnq=787) 10.9 fL 9.4-12.3 NUCLEATED RED BLOOD CELLS (BEAKER) (test 14 /100 WBC 0-0 uibl=682) (CELLAVISION MANUAL DIFF)2018-08-08 15:17:00 Test Item Value Reference Range Comments NEUTROPHILS - REL (CELLAVISION)(BEAKER) (test 52 % auum=2838) LYMPHOCYTES - REL (CELLAVISION)(BEAKER) (test 32 % pbgm=3479) MONOCYTES - REL (CELLAVISION)(BEAKER) (test 10 % wraa=6306) BASOPHILS - REL (CELLAVISION)(BEAKER) (test 3 % mwrd=4698) BANDS - REL (CELLAVISION)(BEAKER) (test 1 % 0-10 lyrh=2251) ATYPICAL LYMPHOCYTES - REL (CELLAVISION)(BEAKER) 2 % 0-0 (test xdhh=6694) NEUTROPHILS - ABS (CELLAVISION)(BEAKER) (test 12.01 K/ul 1.56-6.13 wncv=3281) LYMPHOCYTES - ABS (CELLAVISION)(BEAKER) (test 7.39 K/ul 1.18-3.74 wdmv=0236) MONOCYTES - ABS (CELLAVISION)(BEAKER) (test 2.31 K/uL 0.24-0.36 rcwm=5397) BASOPHILS - ABS (CELLAVISION)(BEAKER) (test 0.69 K/uL 0.01-0.08 dojd=0960) BANDS - ABS (CELLAVISION)(BEAKER) (test 0.23 K/uL 0.00-0.80 eyqd=3842) ATYPICAL LYMPHOCYTES - ABS (CELLAVISION)(BEAKER) 0.46 K/uL 0.00-0.00 (test jdob=1123) TOTAL COUNTED (BEAKER) (test bxay=0476) 100 MANUAL NRBC PER 100 CELLS (BEAKER) (test 14 /100 WBC 0-0 wehb=7493) WBC MORPHOLOGY (BEAKER) (test veoc=237) Normal GIANT PLATELETS (BEAKER) (test oyad=472) Present POLYCHROMATOPHILLIC RBCS(BEAKER) (test tmyb=876) 2+ moderate ANISOCYTOSIS (BEAKER) (test lmqo=443) 1+ few MACROCYTES (BEAKER) (test qxlh=896) 1+ few POIKILOCYTES (BEAKER) (test ubej=914) 2+ moderate TARGET CELLS (BEAKER) (test bfjp=902) 1+ few SICKLE CELLS (BEAKER) (test ujlo=571) 2+ moderate ELLIPTOCYTES (BEAKER) (test uhqi=761) 1+ few ARTIFACT (CELLAVISION)(BEAKER) (test ecjt=6647) Present PLATELET CONCENTRATION (CELLAVISION)(BEAKER) Increased (test scev=4356) Received comment: User comments: Slide comments:CBC (HEMOGRAM ONLY)2018-08-08 10 :10:00 Test Item Value Reference Range Comments WHITE BLOOD CELL COUNT (BEAKER) (test dgmg=644) 21.0 K/ L 3.5-10.5 RED BLOOD CELL COUNT (BEAKER) (test dpxi=257) 1.77 M/ L 3.93-5.22 HEMOGLOBIN (BEAKER) (test iaqu=058) 6.0 GM/DL 11.2-15.7 HEMATOCRIT (BEAKER) (test xkqa=470) 16.9 % 34.1-44.9 MEAN CORPUSCULAR VOLUME (BEAKER) (test dyzd=728) 95.5 fL 79.4-94.8 MEAN CORPUSCULAR HEMOGLOBIN (BEAKER) (test 33.9 pg 25.6-32.2 vusd=208) MEAN CORPUSCULAR HEMOGLOBIN CONC (BEAKER) (test 35.5 GM/DL 32.2-35.5 xnzn=124) RED CELL DISTRIBUTION WIDTH (BEAKER) (test 27.1 % 11.7-14.4 fjln=136) PLATELET COUNT (BEAKER) (test tkfg=751) 484 K/CU MM 150-450 MEAN PLATELET VOLUME (BEAKER) (test vizs=625) 10.2 fL 9.4-12.3 NUCLEATED RED BLOOD CELLS (BEAKER) (test 13 /100 WBC 0-0 dcyo=927) RETICULOCYTE [id number] 08:44:00 Test Item Value Reference Range Comments RETICULOCYTE COUNT PCT (BEAKER) (test giqk=864) 23.8 % 0.5-1.7 BLOOD [id number] 14:01:00 Test Item Value Reference Range Comments CULTURE (BEAKER) (test qdbr=0670) No growth in 5 days BLOOD [id number] 12:01:00 Test Item Value Reference Range Comments CULTURE (BEAKER) (test phte=2289) No growth in 5 days CBC W/PLT COUNT & AUTO [id number] 11:38:00 Test Item Value Reference Range Comments WHITE BLOOD CELL COUNT (BEAKER) (test psqm=524) 22.4 K/ L 3.5-10.5 RED BLOOD CELL COUNT (BEAKER) (test aqww=476) 1.95 M/ L 3.93-5.22 HEMOGLOBIN (BEAKER) (test ylyn=821) 6.6 GM/DL 11.2-15.7 HEMATOCRIT (BEAKER) (test baws=178) 18.8 % 34.1-44.9 MEAN CORPUSCULAR VOLUME (BEAKER) (test uscp=041) 96.4 fL 79.4-94.8 MEAN CORPUSCULAR HEMOGLOBIN (BEAKER) (test 33.8 pg 25.6-32.2 uylh=703) MEAN CORPUSCULAR HEMOGLOBIN CONC (BEAKER) (test 35.1 GM/DL 32.2-35.5 kjnl=592) RED CELL DISTRIBUTION WIDTH (BEAKER) (test 25.6 % 11.7-14.4 dghy=290) PLATELET COUNT (BEAKER) (test pdzn=862) 570 K/CU MM 150-450 MEAN PLATELET VOLUME (BEAKER) (test iftt=366) 11.1 fL 9.4-12.3 NUCLEATED RED BLOOD CELLS (BEAKER) (test 7 /100 WBC 0-0 srqq=617) (CELLAVISION MANUAL DIFF)2018-08-07 11:38:00 Test Item Value Reference Range Comments NEUTROPHILS - REL (CELLAVISION)(BEAKER) (test 42 % kkza=8985) LYMPHOCYTES - REL (CELLAVISION)(BEAKER) (test 44 % akjk=8842) MONOCYTES - REL (CELLAVISION)(BEAKER) (test 11 % qlia=4042) EOSINOPHILS - REL (CELLAVISION)(BEAKER) (test 2 % ztdy=7646) ATYPICAL LYMPHOCYTES - REL (CELLAVISION)(BEAKER) 1 % 0-0 (test saew=8940) NEUTROPHILS - ABS (CELLAVISION)(BEAKER) (test 9.41 K/ul 1.56-6.13 ojyj=9859) LYMPHOCYTES - ABS (CELLAVISION)(BEAKER) (test 9.86 K/ul 1.18-3.74 nkgx=4801) MONOCYTES - ABS (CELLAVISION)(BEAKER) (test 2.46 K/uL 0.24-0.36 oemg=6495) EOSINOPHILS - ABS (CELLAVISION)(BEAKER) (test 0.45 K/uL 0.04-0.36 yhhx=7277) ATYPICAL LYMPHOCYTES - ABS (CELLAVISION)(BEAKER) 0.22 K/uL 0.00-0.00 (test gxpc=9256) TOTAL COUNTED (BEAKER) (test pffw=1849) 100 MANUAL NRBC PER 100 CELLS (BEAKER) (test 10 /100 WBC 0-0 avic=0333) WBC MORPHOLOGY (BEAKER) (test pryn=863) Normal LARGE PLT(BEAKER) (test oxwa=6467) Present POLYCHROMATOPHILLIC RBCS(BEAKER) (test oqvf=889) 3+ many HYPOCHROMIA (BEAKER) (test xeng=138) 2+ moderate TARGET CELLS (BEAKER) (test vucj=528) 2+ moderate SICKLE CELLS (BEAKER) (test ikwk=599) 3+ many BURT-JOLLY BODIES (BEAKER) (test wonc=309) 1+ few ARTIFACT (CELLAVISION)(BEAKER) (test wfga=8130) Present PLATELET CONCENTRATION (CELLAVISION)(BEAKER) Increased (test ggay=5012) Received comment: User comments: Slide comments:RETICULOCYTE [id number] 07: 44:00 Test Item Value Reference Range Comments RETICULOCYTE COUNT PCT (BEAKER) (test rnvy=059) 27.0 % 0.5-1.7 RETICULOCYTE [id number] 07:19:00 Test Item Value Reference Range Comments RETICULOCYTE COUNT PCT (BEAKER) (test nurh=997) 22.7 % 0.5-1.7 CBC W/PLT COUNT & AUTO [id number] 12:07:00 Test Item Value Reference Range Comments WHITE BLOOD CELL COUNT (BEAKER) (test fgll=404) 19.2 K/ L 3.5-10.5 RED BLOOD CELL COUNT (BEAKER) (test qxtv=926) 1.96 M/ L 3.93-5.22 HEMOGLOBIN (BEAKER) (test bsjh=423) 6.7 GM/DL 11.2-15.7 HEMATOCRIT (BEAKER) (test lbaq=856) 18.3 % 34.1-44.9 MEAN CORPUSCULAR VOLUME (BEAKER) (test azzk=160) 93.4 fL 79.4-94.8 MEAN CORPUSCULAR HEMOGLOBIN (BEAKER) (test 34.2 pg 25.6-32.2 ugik=837) MEAN CORPUSCULAR HEMOGLOBIN CONC (BEAKER) (test 36.6 GM/DL 32.2-35.5 yetz=726) RED CELL DISTRIBUTION WIDTH (BEAKER) (test 21.9 % 11.7-14.4 uonz=588) PLATELET COUNT (BEAKER) (test iljy=233) 531 K/CU MM 150-450 MEAN PLATELET VOLUME (BEAKER) (test kjrd=091) 11.2 fL 9.4-12.3 NUCLEATED RED BLOOD CELLS (BEAKER) (test 2 /100 WBC 0-0 ejof=940) (CELLAVISION MANUAL DIFF)2018-08-05 12:07:00 Test Item Value Reference Range Comments NEUTROPHILS - REL (CELLAVISION)(BEAKER) (test 40 % xxym=6343) LYMPHOCYTES - REL (CELLAVISION)(BEAKER) (test 34 % exrv=1486) MONOCYTES - REL (CELLAVISION)(BEAKER) (test 14 % emfx=0988) EOSINOPHILS - REL (CELLAVISION)(BEAKER) (test 6 % mkti=8105) BASOPHILS - REL (CELLAVISION)(BEAKER) (test 2 % mrxo=3627) MYELOCYTES - REL (CELLAVISION)(BEAKER) (test 3 % 0-0 nvbq=5910) ATYPICAL LYMPHOCYTES - REL (CELLAVISION)(BEAKER) 2 % 0-0 (test qqip=9015) NEUTROPHILS - ABS (CELLAVISION)(BEAKER) (test 7.68 K/ul 1.56-6.13 vewk=2046) LYMPHOCYTES - ABS (CELLAVISION)(BEAKER) (test 6.53 K/ul 1.18-3.74 rjrr=8279) MONOCYTES - ABS (CELLAVISION)(BEAKER) (test 2.69 K/uL 0.24-0.36 wykr=2735) EOSINOPHILS - ABS (CELLAVISION)(BEAKER) (test 1.15 K/uL 0.04-0.36 npuf=7070) BASOPHILS - ABS (CELLAVISION)(BEAKER) (test 0.38 K/uL 0.01-0.08 fzhr=6156) MYELOCYTES-ABS (CELLAVISION)(BEAKER) (test 0.58 K/uL 0.00-0.00 qqln=8943) ATYPICAL LYMPHOCYTES - ABS (CELLAVISION)(BEAKER) 0.38 K/uL 0.00-0.00 (test vxch=3357) TOTAL COUNTED (BEAKER) (test kahs=6609) 100 MANUAL NRBC PER 100 CELLS (BEAKER) (test 1 /100 WBC 0-0 wevf=9655) SMUDGE CELLS (BEAKER) (test llsz=3784) Present GIANT PLATELETS (BEAKER) (test umbb=087) Present POLYCHROMATOPHILLIC RBCS(BEAKER) (test gmfg=202) 2+ moderate ANISOCYTOSIS (BEAKER) (test hezx=048) 2+ moderate POIKILOCYTES (BEAKER) (test wfeh=662) 2+ moderate SICKLE CELLS (BEAKER) (test exwr=982) 3+ many PLATELET CONCENTRATION (CELLAVISION)(BEAKER) Increased (test qpkh=5538) Received comment: User comments: Slide comments:RETICULOCYTE [id number] 06: 14:00 Test Item Value Reference Range Comments RETICULOCYTE COUNT PCT (BEAKER) (test ihch=462) 21.9 % 0.5-1.7 [id number] 06:02:00 Test Item Value Reference Range Comments PHOSPHORUS (BEAKER) (test rhqg=784) 3.8 mg/dL 2.3-4.7 [id number] 06:02:00 Test Item Value Reference Range Comments MAGNESIUM (BEAKER) (test wiyo=440) 1.8 mg/dL 1.6-2.6 BASIC METABOLIC [id number] 06:02:00 Test Item Value Reference Range Comments SODIUM (BEAKER) (test 140 meq/L 136-145 lhhg=854) POTASSIUM (BEAKER) (test 3.6 meq/L 3.5-5.1 mqzc=754) CHLORIDE (BEAKER) (test 107 meq/L 98-107 xurn=160) CO2 (BEAKER) (test 26 meq/L 22-29 jxmm=566) BLOOD UREA NITROGEN 4 mg/dL 7-21 (BEAKER) (test abfk=139) CREATININE (BEAKER) (test 0.57 mg/dL 0.57-1.25 ciyb=019) GLUCOSE RANDOM (BEAKER) 109 mg/dL 70-105 (test ixpv=911) CALCIUM (BEAKER) (test 8.8 mg/dL 8.4-10.2 blxo=795) EGFR (BEAKER) (test 155 mL/min/1.73 sq m ESTIMATED GFR IS NOT ardi=2107) ACCURATE CREATININE CLEARANCE IN PREDICTING GLOMERULAR FILTRATION RATE. ESTIMATED GFR IS NOT APPLICABLE FOR DIALYSIS PATIENTS. Specimen moderately ictericCBC W/PLT COUNT & AUTO [id number] 09: 09:00 Test Item Value Reference Range Comments WHITE BLOOD CELL COUNT (BEAKER) (test ssqb=806) 18.5 K/ L 3.5-10.5 RED BLOOD CELL COUNT (BEAKER) (test kzem=121) 2.02 M/ L 3.93-5.22 HEMOGLOBIN (BEAKER) (test maxd=374) 6.7 GM/DL 11.2-15.7 HEMATOCRIT (BEAKER) (test fumz=293) 18.7 % 34.1-44.9 MEAN CORPUSCULAR VOLUME (BEAKER) (test qoxf=376) 92.6 fL 79.4-94.8 MEAN CORPUSCULAR HEMOGLOBIN (BEAKER) (test 33.2 pg 25.6-32.2 kquc=708) MEAN CORPUSCULAR HEMOGLOBIN CONC (BEAKER) (test 35.8 GM/DL 32.2-35.5 myxn=215) RED CELL DISTRIBUTION WIDTH (BEAKER) (test 19.9 % 11.7-14.4 voqe=833) PLATELET COUNT (BEAKER) (test xlkj=928) 525 K/CU MM 150-450 MEAN PLATELET VOLUME (BEAKER) (test epjp=125) 10.9 fL 9.4-12.3 NUCLEATED RED BLOOD CELLS (BEAKER) (test 1 /100 WBC 0-0 fdht=024) (CELLAVISION MANUAL DIFF)2018-08-04 09:09:00 Test Item Value Reference Range Comments NEUTROPHILS - REL (CELLAVISION)(BEAKER) (test 28 % nqnt=2870) LYMPHOCYTES - REL (CELLAVISION)(BEAKER) (test 53 % mypx=9210) MONOCYTES - REL (CELLAVISION)(BEAKER) (test 13 % coea=7720) EOSINOPHILS - REL (CELLAVISION)(BEAKER) (test 3 % ktam=4223) BANDS - REL (CELLAVISION)(BEAKER) (test 3 % 0-10 whlu=1287) NEUTROPHILS - ABS (CELLAVISION)(BEAKER) (test 5.18 K/ul 1.56-6.13 jfaj=1245) LYMPHOCYTES - ABS (CELLAVISION)(BEAKER) (test 9.81 K/ul 1.18-3.74 zvtj=7715) MONOCYTES - ABS (CELLAVISION)(BEAKER) (test 2.41 K/uL 0.24-0.36 jjmv=8446) EOSINOPHILS - ABS (CELLAVISION)(BEAKER) (test 0.56 K/uL 0.04-0.36 moba=2824) BANDS - ABS (CELLAVISION)(BEAKER) (test 0.56 K/uL 0.00-0.80 genc=4881) TOTAL COUNTED (BEAKER) (test dpmc=0838) 100 MANUAL NRBC PER 100 CELLS (BEAKER) (test 2 /100 WBC 0-0 ptpy=2096) SMUDGE CELLS (BEAKER) (test unko=2607) Present GIANT PLATELETS (BEAKER) (test gaao=263) Present POLYCHROMATOPHILLIC RBCS(BEAKER) (test dxkr=426) 3+ many HYPOCHROMIA (BEAKER) (test teta=214) 1+ few ANISOCYTOSIS (BEAKER) (test lctu=448) 1+ few MICROCYTES (BEAKER) (test odog=486) 1+ few MACROCYTES (BEAKER) (test ohfl=222) 1+ few POIKILOCYTES (BEAKER) (test hkig=939) 3+ many SICKLE CELLS (BEAKER) (test qcxh=218) 2+ moderate BURT-JOLLY BODIES (BEAKER) (test whrj=921) 1+ few PLATELET CONCENTRATION (CELLAVISION)(BEAKER) Adequate (test oxbm=0371) Received comment: User comments: Slide comments:[id number] 04:11:00 Test Item Value Reference Range Comments PHOSPHORUS (BEAKER) (test etzo=362) 3.3 mg/dL 2.3-4.7 [id number] 04:11:00 Test Item Value Reference Range Comments MAGNESIUM (BEAKER) (test adga=544) 1.6 mg/dL 1.6-2.6 BASIC METABOLIC [id number] 04:11:00 Test Item Value Reference Range Comments SODIUM (BEAKER) (test 140 meq/L 136-145 xtra=579) POTASSIUM (BEAKER) (test 3.9 meq/L 3.5-5.1 fmix=670) CHLORIDE (BEAKER) (test 110 meq/L 98-107 tzua=490) CO2 (BEAKER) (test 22 meq/L 22-29 wxla=957) BLOOD UREA NITROGEN 4 mg/dL 7-21 (BEAKER) (test qvpd=329) CREATININE (BEAKER) (test 0.52 mg/dL 0.57-1.25 wynt=446) GLUCOSE RANDOM (BEAKER) 82 mg/dL 70-105 (test medm=337) CALCIUM (BEAKER) (test 8.6 mg/dL 8.4-10.2 mnkn=806) EGFR (BEAKER) (test 173 mL/min/1.73 sq m ESTIMATED GFR IS NOT nbmf=3162) ACCURATE CREATININE CLEARANCE IN PREDICTING GLOMERULAR FILTRATION RATE. ESTIMATED GFR IS NOT APPLICABLE FOR DIALYSIS PATIENTS. Specimen slightly ictericRETICULOCYTE [id number] 03:54:00 Test Item Value Reference Range Comments RETICULOCYTE COUNT PCT (BEAKER) (test hjmk=175) 20.4 % 0.5-1.7 CBC W/PLT COUNT & AUTO [id number] 18:30:00 Test Item Value Reference Range Comments WHITE BLOOD CELL COUNT (BEAKER) (test mcnt=487) 17.2 K/ L 3.5-10.5 RED BLOOD CELL COUNT (BEAKER) (test mtxf=214) 2.21 M/ L 3.93-5.22 HEMOGLOBIN (BEAKER) (test wzcy=556) 7.3 GM/DL 11.2-15.7 HEMATOCRIT (BEAKER) (test abrh=219) 20.5 % 34.1-44.9 MEAN CORPUSCULAR VOLUME (BEAKER) (test lqxy=154) 92.8 fL 79.4-94.8 MEAN CORPUSCULAR HEMOGLOBIN (BEAKER) (test 33.0 pg 25.6-32.2 vwdd=411) MEAN CORPUSCULAR HEMOGLOBIN CONC (BEAKER) (test 35.6 GM/DL 32.2-35.5 dfuy=706) RED CELL DISTRIBUTION WIDTH (BEAKER) (test 19.6 % 11.7-14.4 lcmv=854) PLATELET COUNT (BEAKER) (test yhxx=627) 550 K/CU MM 150-450 MEAN PLATELET VOLUME (BEAKER) (test aqmz=146) 11.0 fL 9.4-12.3 NUCLEATED RED BLOOD CELLS (BEAKER) (test 1 /100 WBC 0-0 rhec=746) CBC W/PLT COUNT & AUTO [id number] 10:51:00 Test Item Value Reference Range Comments WHITE BLOOD CELL COUNT (BEAKER) (test rahs=042) 15.2 K/ L 3.5-10.5 RED BLOOD CELL COUNT (BEAKER) (test zqrc=238) 2.01 M/ L 3.93-5.22 HEMOGLOBIN (BEAKER) (test wnru=301) 6.7 GM/DL 11.2-15.7 HEMATOCRIT (BEAKER) (test hadt=779) 18.8 % 34.1-44.9 MEAN CORPUSCULAR VOLUME (BEAKER) (test mtgo=095) 93.5 fL 79.4-94.8 MEAN CORPUSCULAR HEMOGLOBIN (BEAKER) (test 33.3 pg 25.6-32.2 vykm=540) MEAN CORPUSCULAR HEMOGLOBIN CONC (BEAKER) (test 35.6 GM/DL 32.2-35.5 qdss=853) RED CELL DISTRIBUTION WIDTH (BEAKER) (test 19.4 % 11.7-14.4 eomu=139) PLATELET COUNT (BEAKER) (test terb=687) 474 K/CU MM 150-450 MEAN PLATELET VOLUME (BEAKER) (test kbmn=841) 10.3 fL 9.4-12.3 NUCLEATED RED BLOOD CELLS (BEAKER) (test 1 /100 WBC 0-0 zamu=373) (CELLAVISION MANUAL DIFF)2018-08-03 10:51:00 Test Item Value Reference Range Comments NEUTROPHILS - REL (CELLAVISION)(BEAKER) (test 45 % udwh=3928) LYMPHOCYTES - REL (CELLAVISION)(BEAKER) (test 40 % kkhm=5021) MONOCYTES - REL (CELLAVISION)(BEAKER) (test 10 % suzk=8294) EOSINOPHILS - REL (CELLAVISION)(BEAKER) (test 2 % nhep=2032) BASOPHILS - REL (CELLAVISION)(BEAKER) (test 2 % zjuq=6286) ATYPICAL LYMPHOCYTES - REL (CELLAVISION)(BEAKER) 1 % 0-0 (test rbnv=8900) NEUTROPHILS - ABS (CELLAVISION)(BEAKER) (test 6.84 K/ul 1.56-6.13 aqkt=1433) LYMPHOCYTES - ABS (CELLAVISION)(BEAKER) (test 6.08 K/ul 1.18-3.74 psqd=2622) MONOCYTES - ABS (CELLAVISION)(BEAKER) (test 1.52 K/uL 0.24-0.36 inea=5989) EOSINOPHILS - ABS (CELLAVISION)(BEAKER) (test 0.30 K/uL 0.04-0.36 bhib=4761) BASOPHILS - ABS (CELLAVISION)(BEAKER) (test 0.30 K/uL 0.01-0.08 rzwl=9546) ATYPICAL LYMPHOCYTES - ABS (CELLAVISION)(BEAKER) 0.15 K/uL 0.00-0.00 (test gjgb=4020) TOTAL COUNTED (BEAKER) (test opmn=6919) 100 MANUAL NRBC PER 100 CELLS (BEAKER) (test 1 /100 WBC 0-0 ubfh=9148) WBC MORPHOLOGY (BEAKER) (test bgvj=593) Normal GIANT PLATELETS (BEAKER) (test jnaj=699) Present POLYCHROMATOPHILLIC RBCS(BEAKER) (test ospy=210) 2+ moderate HYPOCHROMIA (BEAKER) (test uilf=794) 1+ few ANISOCYTOSIS (BEAKER) (test yyzt=322) 2+ moderate MACROCYTES (BEAKER) (test zjjp=264) 1+ few POIKILOCYTES (BEAKER) (test binj=269) 2+ moderate TARGET CELLS (BEAKER) (test stur=897) 1+ few SCHISTOCYTES (BEAKER) (test ahah=336) 1+ few SICKLE CELLS (BEAKER) (test uxtj=743) 1+ few ELLIPTOCYTES (BEAKER) (test pnvf=246) 1+ few BURT-JOLLY BODIES (BEAKER) (test rwhd=972) 2+ moderate ARTIFACT (CELLAVISION)(BEAKER) (test toqu=9001) Present PLATELET CONCENTRATION (CELLAVISION)(BEAKER) Adequate (test puuq=6110) Received comment: User comments: Slide comments:RETICULOCYTE [id number] 10: 08:00 Test Item Value Reference Range Comments RETICULOCYTE COUNT PCT (BEAKER) (test idon=466) 14.4 % 0.5-1.7 CBC W/PLT COUNT & AUTO [id number] 09:30:00 Test Item Value Reference Range Comments WHITE BLOOD CELL COUNT 16.7 K/ L 3.5-10.5 (BEAKER) (test jkaj=311) RED BLOOD CELL COUNT (BEAKER) 2.13 M/ L 3.93-5.22 (test oykg=279) HEMOGLOBIN (BEAKER) (test 7.3 GM/DL 11.2-15.7 eoep=652) HEMATOCRIT (BEAKER) (test 20.1 % 34.1-44.9 xmkw=324) MEAN CORPUSCULAR VOLUME 94.4 fL 79.4-94.8 Discordant MCV results (BEAKER) (test kckt=879) compared to previous results; clinical correlation required. MEAN CORPUSCULAR HEMOGLOBIN 34.3 pg 25.6-32.2 (BEAKER) (test lyme=009) MEAN CORPUSCULAR HEMOGLOBIN 36.3 GM/DL 32.2-35.5 CONC (BEAKER) (test xtpr=486) RED CELL DISTRIBUTION WIDTH 18.7 % 11.7-14.4 (BEAKER) (test zffe=135) PLATELET COUNT (BEAKER) (test 512 K/CU MM 150-450 xfjt=092) MEAN PLATELET VOLUME (BEAKER) 10.5 fL 9.4-12.3 (test ohaz=432) NUCLEATED RED BLOOD CELLS 1 /100 WBC 0-0 (BEAKER) (test ddnq=433) (CELLAVISION MANUAL DIFF)2018-08-03 09:30:00 Test Item Value Reference Range Comments NEUTROPHILS - REL (CELLAVISION)(BEAKER) (test 28 % szip=6903) LYMPHOCYTES - REL (CELLAVISION)(BEAKER) (test 49 % ljjw=9984) MONOCYTES - REL (CELLAVISION)(BEAKER) (test 15 % kbfm=3818) EOSINOPHILS - REL (CELLAVISION)(BEAKER) (test 2 % obmb=4075) BASOPHILS - REL (CELLAVISION)(BEAKER) (test 3 % elww=3006) ATYPICAL LYMPHOCYTES - REL (CELLAVISION)(BEAKER) 3 % 0-0 (test mouo=1704) NEUTROPHILS - ABS (CELLAVISION)(BEAKER) (test 4.68 K/ul 1.56-6.13 ikpm=0537) LYMPHOCYTES - ABS (CELLAVISION)(BEAKER) (test 8.18 K/ul 1.18-3.74 sprn=1264) MONOCYTES - ABS (CELLAVISION)(BEAKER) (test 2.51 K/uL 0.24-0.36 mwfu=7048) EOSINOPHILS - ABS (CELLAVISION)(BEAKER) (test 0.33 K/uL 0.04-0.36 gtxe=3157) BASOPHILS - ABS (CELLAVISION)(BEAKER) (test 0.50 K/uL 0.01-0.08 iqnq=0153) ATYPICAL LYMPHOCYTES - ABS (CELLAVISION)(BEAKER) 0.50 K/uL 0.00-0.00 (test enqg=4994) TOTAL COUNTED (BEAKER) (test wlyc=6914) 100 WBC MORPHOLOGY (BEAKER) (test znxm=963) Normal GIANT PLATELETS (BEAKER) (test pftl=176) Present POLYCHROMATOPHILLIC RBCS(BEAKER) (test gorj=509) 1+ few ANISOCYTOSIS (BEAKER) (test vanm=692) 1+ few MACROCYTES (BEAKER) (test hgno=270) 1+ few POIKILOCYTES (BEAKER) (test kxjz=523) 2+ moderate TARGET CELLS (BEAKER) (test geok=442) 2+ moderate SICKLE CELLS (BEAKER) (test hslo=489) 1+ few ELLIPTOCYTES (BEAKER) (test ccve=844) 2+ moderate OVALOCYTES (BEAKER) (test ofic=853) 1+ few TEAR DROP CELLS (BEAKER) (test pgcy=204) 1+ few BURT-JOLLY BODIES (BEAKER) (test dydh=430) 1+ few ARTIFACT (CELLAVISION)(BEAKER) (test gjls=4131) Present PLATELET CONCENTRATION (CELLAVISION)(BEAKER) Increased (test nefs=2135) Received comment: User comments: Slide comments:[id number] 03:32:00 Test Item Value Reference Range Comments PHOSPHORUS (BEAKER) (test ftmf=914) 3.5 mg/dL 2.3-4.7 [id number] 03:32:00 Test Item Value Reference Range Comments MAGNESIUM (BEAKER) (test lyou=561) 1.8 mg/dL 1.6-2.6 BASIC METABOLIC [id number] 03:32:00 Test Item Value Reference Range Comments SODIUM (BEAKER) (test 141 meq/L 136-145 jdrs=521) POTASSIUM (BEAKER) (test 3.9 meq/L 3.5-5.1 jcgc=974) CHLORIDE (BEAKER) (test 111 meq/L 98-107 ovlr=024) CO2 (BEAKER) (test 23 meq/L 22-29 rwux=909) BLOOD UREA NITROGEN 5 mg/dL 7-21 (BEAKER) (test rvks=558) CREATININE (BEAKER) (test 0.54 mg/dL 0.57-1.25 tlwi=356) GLUCOSE RANDOM (BEAKER) 105 mg/dL 70-105 (test ppue=303) CALCIUM (BEAKER) (test 8.3 mg/dL 8.4-10.2 bcdh=038) EGFR (BEAKER) (test 165 mL/min/1.73 sq m ESTIMATED GFR IS NOT dpbx=6660) ACCURATE CREATININE CLEARANCE IN PREDICTING GLOMERULAR FILTRATION RATE. ESTIMATED GFR IS NOT APPLICABLE FOR DIALYSIS PATIENTS. Specimen slightly ictericCT, CHEST WITH IV CONTRAST- PE TEST [id number] 14 :01:00FINAL REPORT CT scan of the chest. MEDICAL HISTORY : Chest pain. COMPARISON STUDY: November 15, 2015. TECHNIQUE: Contiguous helical slices were acquired through the thorax post ministration of intravenous contrast. This exam was performed according to our department dose optimization program which includes automated exposure control, adjustment of the mA and/or kV according to the patient's size and/or use of iterative reconstruction technique. FINDINGS: The mediastinum demonstratesa 5 mm nodule in the left lobe [...] bases. Bone windows demonstrate no acute abnormality. IMPRESSION:1. Reticulonodular pulmonary opacities for which some degree of scarring or inflammatory change cannot be excluded but this is significantly less pronounced than on previous.2. Cavitary lesion in the right upper lung field, significantly smaller than on previous. Signed: jE Elaine Verified Date/Time: 08/02/2018 14:01:29 Reading Location: [address] Consult Reading Room Electronically signed by: EJ ELAINE M.D. on 02:01 PMURINALYSIS W/ REFLEX URINE [id number] 11:27:00 Test Item Value Reference Range Comments COLOR (BEAKER) (test ljxq=709) Yellow CLARITY (BEAKER) (test svbd=318) Clear SPECIFIC GRAVITY UA (BEAKER) (test xcrd=839) 1.008 1.001-1.035 PH UA (BEAKER) (test trzi=044) 5.5 5.0-8.0 PROTEIN UA (BEAKER) (test shoy=970) 10 mg/dL Negative GLUCOSE UA (BEAKER) (test bupa=174) Negative Negative KETONES UA (BEAKER) (test ytbr=722) Negative Negative BILIRUBIN UA (BEAKER) (test xyce=023) Negative Negative BLOOD UA (BEAKER) (test ejjd=900) Negative Negative NITRITE UA (BEAKER) (test hkee=764) Negative Negative LEUKOCYTE ESTERASE UA (BEAKER) (test gnnd=841) Negative Negative UROBILINOGEN UA (BEAKER) (test fwuw=387) 0.2 mg/dL 0.2-1.0 RBC UA (BEAKER) (test menc=845) 0 /HPF WBC UA (BEAKER) (test eqzp=688) 1 /HPF MUCUS (BEAKER) (test trhm=4921) Rare SQUAMOUS EPITHELIAL (BEAKER) (test sved=465) 1 /HPF SOURCE(BEAKER) (test nbco=9501) SCREEN, [id number] 11:15:00 Test Item Value Reference Range Comments TEST URINE (BEAKER) (test qzfm=886) Negative RETICULOCYTE [id number] 04:43:00 Test Item Value Reference Range Comments RETICULOCYTE COUNT PCT (BEAKER) (test djro=917) 13.2 % 0.5-1.7 RAD, CHEST, 2 [id number] 03:54:00Reason for exam:->SICKLE CELL PAIN CRISISIs the patient ?->UnknownShould this be performed at the bedside?->NoFINAL REPORT Examination: Two view Chest X-ray. CLINICAL [...] IJ chest port is in place. Signed: Marcy Ferris MDReport Verified Date/Time: 08/02/2018 03:54:52Reading Location: [address] Reading Room CBC W/PLT COUNT & AUTO [id number] 03:04:00 Test Item Value Reference Range Comments WHITE BLOOD CELL COUNT 17.8 K/ L 4.0-10.0 (BEAKER) (test wknv=845) RED BLOOD CELL COUNT (BEAKER) 2.76 M/ L 4.00-5.00 Morphology: 3+ ANISOCYTOSIS; (test ftse=537) 3+ POIKILOCYTOSIS; 2+ MACROCYTES; Few OVALOCYTES; 2+ SICKLE CELLS; 1+ Target Cells; and Few STOMATOCYTES seen on slide review. HEMOGLOBIN (BEAKER) (test 9.4 GM/DL 12.0-15.0 kkje=612) HEMATOCRIT (BEAKER) (test 29.1 % 36.0-45.0 ytsm=707) MEAN CORPUSCULAR VOLUME 105.3 fL 82.0-99.0 (BEAKER) (test gkvo=264) MEAN CORPUSCULAR HEMOGLOBIN 33.9 pg 27.0-33.0 (BEAKER) (test ixze=248) MEAN CORPUSCULAR HEMOGLOBIN 32.2 GM/DL 32.0-36.0 CONC (BEAKER) (test bbrr=576) RED CELL DISTRIBUTION WIDTH 13.3 % 10.3-14.2 (BEAKER) (test emhz=406) PLATELET COUNT (BEAKER) (test 687 K/CU MM 150-430 ndyc=494) MEAN PLATELET VOLUME (BEAKER) 7.8 fL 6.5-10.5 (test jenw=552) NEUTROPHILS RELATIVE PERCENT 56 % (BEAKER) (test anag=980) LYMPHOCYTES RELATIVE PERCENT 33 % (BEAKER) (test nncr=627) MONOCYTES RELATIVE PERCENT 8 % (BEAKER) (test bass=598) EOSINOPHILS RELATIVE PERCENT 1 % (BEAKER) (test vjrd=597) BASOPHILS RELATIVE PERCENT 1 % (BEAKER) (test kdpg=193) NEUTROPHILS ABSOLUTE COUNT 10.01 K/ L 1.80-8.00 (BEAKER) (test kjor=415) LYMPHOCYTES ABSOLUTE COUNT 5.89 K/ L 1.48-4.50 (BEAKER) (test agdo=511) MONOCYTES ABSOLUTE COUNT 1.44 K/ L 0.00-1.30 (BEAKER) (test bkmf=090) EOSINOPHILS ABSOLUTE COUNT 0.25 K/ L 0.00-0.50 (BEAKER) (test tkvw=028) BASOPHILS ABSOLUTE COUNT 0.20 K/ L 0.00-0.20 (BEAKER) (test vyue=883) COMPREHENSIVE METABOLIC [id number] 02:42:00 Test Item Value Reference Range Comments TOTAL PROTEIN (BEAKER) 9.0 gm/dL 6.0-8.5 (test iiwi=999) ALBUMIN (BEAKER) (test 4.9 g/dL 3.5-5.0 vttt=0374) ALKALINE PHOSPHATASE 66 U/L 30-115 (BEAKER) (test xnbt=051) BILIRUBIN TOTAL (BEAKER) 3.1 mg/dL 0.1-1.2 (test wltf=538) SODIUM (BEAKER) (test 143 meq/L 135-148 irhf=768) POTASSIUM (BEAKER) (test 3.8 meq/L 3.6-5.5 jtss=910) CHLORIDE (BEAKER) (test 109 meq/L 98-106 xihm=264) CO2 (BEAKER) (test 26 meq/L 24-32 pdir=150) BLOOD UREA NITROGEN 2 mg/dL 10-26 (BEAKER) (test hogu=943) CREATININE (BEAKER) (test 0.42 mg/dL 0.50-1.20 kdst=606) GLUCOSE RANDOM (BEAKER) 104 mg/dL 70-110 (test knat=480) CALCIUM (BEAKER) (test 9.5 mg/dL 8.5-10.5 edcd=751) AST (SGOT) (BEAKER) (test 25 U/L 5-40 snca=769) ALT (SGPT) (BEAKER) (test 18 U/L 5-50 okjt=701) EGFR (BEAKER) (test 221 mL/min/1.73 sq ESTIMATED GFR IS NOT fraj=6030) m ACCURATE CREATININE CLEARANCE IN PREDICTING GLOMERULAR FILTRATION RATE. ESTIMATED GFR IS NOT APPLICABLE FOR DIALYSIS PATIENTS.
[2018-08-12] MEDS ORDERED: PROMETHAZINE 25 MG/ML VIAL ONE (09:26)
[2018-08-12] MEDS ORDERED: NA CHLORIDE 0.9% 1,000 ML ONE ×2 (09:27→12:14)
[2018-08-12] MEDS ORDERED: MORPHINE 4 MG/ML SYR ONE (09:27)
[2018-08-12 09:29] LABS: Absolute Lymphocytes (CBC) 1.9 K/uL (0.7-4.9); Absolute Monocytes 2.7 K/uL (0.1-1.3); Absolute Neutrophil 14.6 K/uL (1.8-8.0); Basophils % 0.6 % (0-1.3); Eosinophils % 2.2 % (0-4.4); Hematocrit 31.2 % (36.0-45.0); Lymphocytes % 9.6 % (15.3-44.8); MPV 9.1 fL (7.6-11.3); Monocytes % 13.7 % (3.3-12.3); RBC Red Blood Cell Count 3.28 M/uL (3.86-4.86)
[2018-08-12 10:06] LABS: BUN Blood Urea Nitrogen 5 mg/dL (7-18); Bicarbonate 24 mmol/L (21-32); Glucose Level 100 mg/dL (74-106); Sodium Level 138 mmol/L (136-145)
[2018-08-12] MEDS ORDERED: HYDROMORPHONE HCL 1 MG/ML INJ ONE ×2 (10:16→11:17)
[2018-08-12 10:19] LABS: Potassium 2.9 mmol/L (3.5-5.1)
[2018-08-12] MEDS ORDERED: POTASSIUM CL SA 10 MEQ TAB PO ONE ×2 (10:37→18:00)
--- NOTE | 2018-08-12 10:48 | RAD REPORT ---
EXAM DESCRIPTION: RAD - Chest Single View - 08/12/2018 10:37 am CLINICAL HISTORY: pain, sickle cell Chest pain. COMPARISON: Chest Pa And Lat (2 Views) dated 09/11/2017; Chest Single View dated 11/25/2016; Chest Sing le View dated 11/02/2016; Chest Pa And Lat (2 Views) dated 09/22/2016 FINDINGS: Portable technique limits examination quality. The lungs are grossly clear. The heart is upper limit of normal in size. No displaced fractures.Left- sided port catheter has tip in the SVC. IMPRESSION: No acute intrathoracic process suspected.
[2018-08-12] MEDS ORDERED: NA CHLORIDE 0.9% 50 ML IV ONE (11:17)
[2018-08-12 11:31] LABS: Anisocytosis 2+; Blood Morphology Comment NOTED (NOT SEEN); Platelet Estimate ADEQ; Polychromasia 2+; Target Cells 1+
--- NOTE | 2018-08-12 11:42 | EDPHYS ---
Physician Documentation [facility] Name: Gume Ortega Age: 27 yrs Sex: Female : 1990 Arrival Date: 08/12/2018 Time: 08:37 Bed 14 Private MD: Kadeem Du ED Physician Nelson Duffy HPI: 08/12 09:42 This 27 yrs old Black Female presents to ER via Ambulatory with complaints of Vomiting, kb Nausea. 09:42 The patient presents to the emergency department with nausea, vomiting. Onset: The kb symptoms/episode began/occurred 2 week(s) ago. Possible causes: entire body pain. The symptoms are aggravated by nothing. The symptoms are alleviated by nothing. Associated signs and symptoms: Pertinent positives: nausea, vomiting, Pertinent negatives: abdominal pain, anorexia, belching, constipation, diarrhea, dysuria, fever, flatulence, GI bleeding, hematuria, vaginal discharge. Severity of symptoms: At their worst the symptoms were moderate in the emergency department the symptoms are unchanged. The patient has experienced similar episodes in the past. The patient has been recently seen by a physician:. Pt reports she had had pain to entire body since 08/02/18. States she was admitted to [facility] on 08/02/18 and discharged on 08/10/18, but was still having pain. Had blood transfusion while at [facility]. States she went to [facility] but they didn't do anything. . 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 - Social history:: Smoking status: . - Ebola Screening: : Patient denies travel to an Ebola-affected area in the 21 days before illness onset. ROS: 09:41 ENT: Negative for injury, pain, and discharge, Neck: Negative for injury, pain, and kb swelling, Cardiovascular: Negative for chest pain, palpitations, and edema, Respiratory: Negative for shortness of breath, cough, wheezing, and pleuritic chest pain, Back: Negative for injury and pain, MS/Extremity: Negative for injury and deformity, Skin: Negative for injury, rash, and discoloration, Neuro: Negative for headache, weakness, numbness, tingling, and seizure. 09:41 Constitutional: Positive for body aches, Negative for chills, fatigue, fever, malaise, poor PO intake, weight loss. 09:41 Abdomen/GI: Positive for nausea and vomiting, Negative for abdominal pain, diarrhea, constipation, abdominal cramps, abdominal distension, anorexia. Exam: 09:41 Constitutional: This is a well developed, well nourished patient who is awake, alert, kb and in no acute distress. Head/Face: Normocephalic, atraumatic. ENT: Nares patent. No nasal discharge, no septal abnormalities noted. Tympanic membranes are normal and external auditory canals are clear. Oropharynx with no redness, swelling, or masses, exudates, or evidence of obstruction, uvula midline. Mucous membranes moist. Neck: Trachea midline, no thyromegaly or masses palpated, and no cervical lymphadenopathy. Supple, full range of motion without nuchal rigidity, or vertebral point tenderness. No Meningismus. Chest/axilla: Normal chest wall appearance and motion. Nontender with no deformity. No lesions are appreciated. Cardiovascular: Regular rate and rhythm with a normal S1 and S2. No gallops, murmurs, or rubs. Normal PMI, no JVD. No pulse deficits. Respiratory: Lungs have equal breath sounds bilaterally, clear to auscultation and percussion. No rales, rhonchi or wheezes noted. No increased work of breathing, no retractions or nasal flaring. Abdomen/GI: Soft, non-tender, with normal bowel sounds. No distension or tympany. No guarding or rebound. No evidence of tenderness throughout. Skin: Warm, dry with normal turgor. Normal color with no rashes, no lesions, and no evidence of cellulitis. MS/ Extremity: Pulses equal, no cyanosis. Neurovascular intact. Full, normal range of motion. Neuro: Awake and alert, GCS 15, oriented to person, place, time, and situation. Cranial nerves II-XII grossly intact. Motor strength 5/5 in all extremities. Sensory grossly intact. Cerebellar exam normal. Normal gait. 11:45 ECG was reviewed by the Attending Physician. kb Vital Signs: 08:44 BP 144 / 99; Pulse 81; Resp 19; Temp 99.8(TE); Pulse Ox 98% on R/A; Weight 72.57 kg tw2 (R); Pain 10/10; 09:30 BP 149 / 91; Pulse 64; Resp 18; Pulse Ox 100% on R/A; rb1 10:30 BP 120 / 59; Pulse 61; Resp 17; Pulse Ox 97% on R/A; Pain 10/10; rb1 11:30 BP 147 / 91; Pulse 61; Resp 16; Pulse Ox 98% on R/A; rb1 12:30 BP 126 / 75; Pulse 57; Resp 16; Pulse Ox 96% on R/A; rb1 13:18 BP 138 / 80; Pulse 50; Resp 17; Pulse Ox 99% on R/A; rb1 14:13 BP 135 / 76; Pulse 63; Resp 16; Pulse Ox 99% on R/A; rb1 MDM: 08:45 Patient medically screened. kb 09:40 Data reviewed: vital signs, nurses notes. Data interpreted: Pulse oximetry: on room air kb is 98 %. Interpretation: normal. 11:38 Counseling: I had a detailed discussion with the patient and/or guardian regarding: the kb historical points, exam findings, and any diagnostic results supporting the discharge/admit diagnosis, lab results, radiology results, the need for further work-up and treatment in the hospital. ED course: Pt states pain is starting to get better. Dilaudid infusion in process. 11:39 Physician consultation: Candace Hunter MD was contacted at 11:39, regarding admission, kb to the medical/surgical unit. patient's condition, and will see patient in ED, shortly. 08/12 08:45 Order name: CBC with Diff; Complete Time: 11:36 kb 08/12 08:45 Order name: Basic Metabolic Panel; Complete Time: 10:20 kb 08/12 08:45 Order name: Retic Count; Complete Time: 11:36 kb 08/12 09:36 Order name: Manual Differential; Complete Time: 11:36 EDMS 08/12 10:03 Order name: Chest Single View XRAY; Complete Time: 11:02 kb 08/12 12:47 Order name: Test Serum, [facility] 08/12 10:03 Order name: EKG; Complete Time: 10:03 kb 08/12 08:45 Order name: IV Start; Complete Time: 09:25 kb 08/12 10:03 Order name: EKG - Nurse/Tech; Complete Time: 10:35 kb EC:45 Rate is 47 beats/min. Rhythm is regular. QRS [place] is Normal. GA interval is normal at kb 126 msec. QRS interval is normal at 84 msec. Clinical impression: Sinus bradycardia. Interpreted by me. Reviewed by me. Administered Medications: 09:24 Drug: morphine 4 mg Route: IVP; Site: Port-a-cath; rb1 09:40 Follow up: Response: No adverse reaction; Pain is unchanged, physician notified rb1 09:25 Drug: NS 0.9% 1000 ml Route: IV; Rate: 1000 ml; Site: Port-a-cath; rb1 10:44 Follow up: IV Status: Completed infusion rb1 09:25 Drug: Phenergan 12.5 mg Route: IVP; Site: Port-a-cath; rb1 09:40 Follow up: Response: No adverse reaction; Nausea is decreased rb1 10:08 Drug: Dilaudid 1 mg Route: IVP; Site: Port-a-cath; rb1 10:30 Follow up: Response: No adverse reaction; Pain is unchanged, physician notified rb1 10:31 Drug: Potassium Chloride 40 mEq Route: PO; rb1 11:00 Follow up: Response: No adverse reaction rb1 11:13 Drug: Dilaudid 1 mg Route: IVP; Site: Port-a-cath; rb1 11:30 Follow up: Response: No adverse reaction rb1 12:12 Follow up: Response: Pain is decreased rb1 12:10 Drug: NS 0.9% 1000 ml Route: IV; Rate: 1000 ml; Site: Port-a-cath; rb1 Disposition: 15:39 Co-signature as Attending Physician, Nelson Duffy MD I agree with the assessment and cassidy plan of care. Disposition: 08/12/18 11:41 Hospitalization ordered by Rita Mejia for Observation. Preliminary diagnosis are Other sickle-cell disorders with crisis, Acute pain, not elsewhere classified - intractable. - Bed requested for Telemetry/MedSurg (observation). - Status is Observation. rb1 - Condition is Stable. - Problem is new. - Symptoms are unchanged. UTI on Admission? No Signatures: Dispatcher [employer] EDMelissa Willoughby, HORACIO-C OCCASIONAL CAREGIVER-CkLuz Elena Ferrer, RN RN dw Nelson Duffy MD MD cha Barber, Rebecca, RN RN rb1 Tata Zarate RN RN tw2 Corrections: (The following items were deleted from the chart) 11:44 11:41 Hospitalization Ordered by Candace Hunter MD for Observation. Preliminary kb diagnosis is Other sickle-cell disorders with crisis; Acute pain, not elsewhere classified - intractable. Bed requested for Telemetry/MedSurg (observation). Status is Observation. Condition is Stable. Problem is new. Symptoms are unchanged. UTI on Admission? No. kb 13:13 11:44 08/12/2018 11:41 Hospitalization Ordered by Rita Mejia MD for Observation. dw Preliminary diagnosis is Other sickle-cell disorders with crisis; Acute pain, not elsewhere classified - intractable. Bed requested for Telemetry/MedSurg (observation). Status is Observation. Condition is Stable. Problem is new. Symptoms are unchanged. UTI on Admission? No. kb 14:13 13:13 08/12/2018 11:41 Hospitalization Ordered by Rita Mejia MD for Observation. rb1 Preliminary diagnosis is Other sickle-cell disorders with crisis; Acute pain, not elsewhere classified - intractable. Bed requested for Telemetry/MedSurg (observation). Status is Observation. Condition is Stable. Problem is new. Symptoms are unchanged. UTI on Admission? No. dw
--- NOTE | 2018-08-12 11:42 | ER ---
Nurse's Notes [facility] Name: Gume Ortega Age: 27 yrs Sex: Female : 1990 Arrival Date: 08/12/2018 Time: 08:37 Bed 14 Private MD: Kadeem Du Diagnosis: Other sickle-cell disorders with crisis;Acute pain, not elsewhere classified-intractable Presentation: 08/12 08:41 Presenting complaint: grandmother reports she was in the hospital and had sickle cell, tw2 she went to [place] but they gave me nausea medicines and i have been throwing up, i hurt everywhere. Transition of care: patient was not received from another setting of care. Onset of symptoms was August 12, 2018. Risk Assessment: Do you want to hurt yourself or someone else? Patient reports no desire to harm self or others. Initial Sepsis Screen: Does the patient meet any 2 criteria? Temp <36.0*C (96.8*F)) or > 38.3*C (100.9*F). No. Patient's initial sepsis screen is negative. Does the patient have a suspected source of infection? No. Patient's initial sepsis screen is negative. Care prior to arrival: None. 08:41 Method Of Arrival: Ambulatory tw2 08:41 Acuity: MARILUZ 3 tw2 Triage Assessment: 08:44 General: Appears uncomfortable, Behavior is anxious. Pain: Complains of pain in "all tw2 over". GI: Reports nausea, vomiting. RESEARCH ANTHROPOLOGIST: 08:44 LMP 08/07/2018 tw2 Historical: - Allergies: 08:43 Zofran; tw2 - Home Meds: 08:43 Dilaudid 8 mg oral tab 1 tab every 6 hours [Active]; folic acid 800 mcg Oral tab 1 tab tw2 once daily [Active]; Eliquis 2.5 mg oral tab 1 tab 2 times per day [Active]; - PMHx: 08:43 Sickle Cell; blood clot in lung; tw2 - PSHx: 08:43 port-a-cath right chest wall; tw2 08:45 Port-A-Cath left chest; rb1 - Immunization history:: Adult Immunizations. - Social history:: Smoking status: . - Ebola Screening: : Patient denies travel to an Ebola-affected area in the 21 days before illness onset. Screenin:46 Abuse screen: Denies threats or abuse. Nutritional screening: No deficits noted. rb1 Tuberculosis screening: No symptoms or risk factors identified. Fall Risk None identified. Assessment: 08:46 General: Appears uncomfortable, Behavior is cooperative, fussy. Pain: Complains of pain rb1 in generalized Pain currently is 10 out of 10 on a pain scale. Neuro: Level of Consciousness is awake, alert, obeys commands, Oriented to person, place, time, situation. Cardiovascular: Capillary refill < 3 seconds is brisk in bilateral fingers. Respiratory: Airway is patent Respiratory effort is even, unlabored, Respiratory pattern is tachypnea. GI: Abdomen is flat. : No signs and/or symptoms were reported regarding the genitourinary system. Derm: Skin is dry, Skin is normal, Skin temperature is warm. 09:45 Reassessment: Patient appears in no apparent distress at this time. No changes from rb1 previously documented assessment. 10:45 Reassessment: Patient appears in no apparent distress at this time. Patient and/or rb1 family updated on plan of care and expected duration. Pain level reassessed. Patient is alert, oriented x 3, equal unlabored respirations, skin warm/dry/pink. 11:00 Reassessment: Pt. is requesting pain medications; provider notified. rb1 11:33 Reassessment: Provider at bedside. rb1 12:00 Reassessment: Patient appears in no apparent distress at this time. Patient and/or rb1 family updated on plan of care and expected duration. Pain level reassessed. Patient is alert, oriented x 3, equal unlabored respirations, skin warm/dry/pink. 13:00 Reassessment: Pt. is resting with eyes closed, respirations even, unlabored. Call light rb1 within reach. Bed in low, locked position. 13:25 Reassessment: I tried to call report but was left on hold. rb1 13:30 Reassessment: I tried to call report but the nurse had taken a pt. downstairs because rb1 they were discharged. 13:37 Reassessment: Called report to SHYAM Haider. Information from the [facility] was given. All rb1 questions asked and answered. 14:00 Reassessment: Patient appears in no apparent distress at this time. Patient and/or rb1 family updated on plan of care and expected duration. Pain level reassessed. Patient is alert, oriented x 3, equal unlabored respirations, skin warm/dry/pink. Vital Signs: 08:44 BP 144 / 99; Pulse 81; Resp 19; Temp 99.8(TE); Pulse Ox 98% on R/A; Weight 72.57 kg tw2 (R); Pain 10/10; 09:30 BP 149 / 91; Pulse 64; Resp 18; Pulse Ox 100% on R/A; rb1 10:30 BP 120 / 59; Pulse 61; Resp 17; Pulse Ox 97% on R/A; Pain 10/10; rb1 11:30 BP 147 / 91; Pulse 61; Resp 16; Pulse Ox 98% on R/A; rb1 12:30 BP 126 / 75; Pulse 57; Resp 16; Pulse Ox 96% on R/A; rb1 13:18 BP 138 / 80; Pulse 50; Resp 17; Pulse Ox 99% on R/A; rb1 14:13 BP 135 / 76; Pulse 63; Resp 16; Pulse Ox 99% on R/A; rb1 ED Course: 08:37 Patient arrived in ED. mr 08:38 Kadeem Du is Private Physician. mr 08:42 Triage completed. tw2 08:42 Arm band placed on. tw2 08:45 [facility]C [facility]. kb 08:45 Nelson Duffy MD is Attending Physician. kb 08:46 Patient has correct armband on for positive identification. Placed in gown. Bed in low rb1 position. Call light in reach. Side rails up X 1. Pulse ox on. NIBP on. 08:54 Sadie Solis, RN is Primary Nurse. rb1 09:10 Accessed Port-a-Cath. using accessed w/ # 20 Peters needle, ,sterile technique, per [facility] protocol. Clean \\T\\ dry. Dressing intact. Good blood return. Flushes easily. 10:30 X-ray completed. Portable x-ray completed in exam room. jr1 10:31 Chest Single View XRAY In Process Unspecified. EDMS 10:39 EKG done, by bio medical technician. reviewed by Melissa OCONNELL. sm3 11:40 Candace Hunter MD is Hospitalizing Provider. kb 11:43 Rita Mejia MD is Hospitalizing Provider. kb 14:13 No provider procedures requiring assistance completed. Patient admitted, IV remains in rb1 place. Administered Medications: 09:24 Drug: morphine 4 mg Route: IVP; Site: Port-a-cath; rb1 09:40 Follow up: Response: No adverse reaction; Pain is unchanged, physician notified rb1 09:25 Drug: NS 0.9% 1000 ml Route: IV; Rate: 1000 ml; Site: Port-a-cath; rb1 10:44 Follow up: IV Status: Completed infusion rb1 09:25 Drug: Phenergan 12.5 mg Route: IVP; Site: Port-a-cath; rb1 09:40 Follow up: Response: No adverse reaction; Nausea is decreased rb1 10:08 Drug: Dilaudid 1 mg Route: IVP; Site: Port-a-cath; rb1 10:30 Follow up: Response: No adverse reaction; Pain is unchanged, physician notified rb1 10:31 Drug: Potassium Chloride 40 mEq Route: PO; rb1 11:00 Follow up: Response: No adverse reaction rb1 11:13 Drug: Dilaudid 1 mg Route: IVP; Site: Port-a-cath; rb1 11:30 Follow up: Response: No adverse reaction rb1 12:12 Follow up: Response: Pain is decreased rb1 12:10 Drug: NS 0.9% 1000 ml Route: IV; Rate: 1000 ml; Site: Port-a-cath; rb1 Outcome: 11:41 Decision to Hospitalize by Provider. kb 14:13 Patient left the ED. rb1 14:13 Admitted to Med/surg accompanied by tech, via wheelchair, room 230, with chart, Report rb1 called to SHYAM Haider 14:13 Condition: stable 14:13 Instructed on the need for admit. Signatures: Dispatcher [employer] EDMN Melissa Vazquez, ALICIAC FORGING DIE FINISHER-Harry YashLaura mr Dennis, Mamta jr1 Sadie Solis, RN RN rb1 Tata Zarate RN RN tw2 Ludy Mendez 3 Corrections: (The following items were deleted from the chart) 09:21 08:41 Presenting complaint: grandmother reports she was in the hospital and had sicle tw2 cell, she went to [place] but they gave me nausea medicines and i having been throwing up, i hurt everywhere tw2
[2018-08-12] MEDS ORDERED: ACETAMINOPHEN 500 MG TAB PO PRN (14:15)
[2018-08-12] MEDS: NA CHLORIDE 0.9% 1,000 ML IV SCH ×2 (14:44→23:53)
[2018-08-12] MEDS: HYDROMORPHONE HCL 1 MG/ML INJ IV PRN ×2 (14:49→21:06)
[2018-08-12] MEDS ORDERED: PROMETHAZINE 25 MG/ML VIAL IV ONE ×2 (15:24→21:25)
[2018-08-12 15:52] VITALS: BMI 28.0
[2018-08-12 15:52] LABS: Urine Appearance CLEAR; Urine Bilirubin NEGATIVE (NEG); Urine Blood 2+ (NEG); Urine Color DK YELLOW; Urine Glucose NEGATIVE (NEG); Urine Protein 2+ (NEG); Urine Urobilinogen 0.2 mg/dL (0.2-1.0)
[2018-08-12 15:59] LABS: Urine Microscopic Reflex ORDER UMIC
[2018-08-12 16:46] LABS: Urine Bacteria 20-50 /HPF (<20); Urine Culture Reflex Order REFLEXED
[2018-08-12 16:47] LABS: Urine Amorphous Sediment 2+ /HPF (NONE SEEN)
[2018-08-12] MEDS: APIXABAN 2.5 MG TABLET PO SCH (21:07)
--- NOTE | 2018-08-12 22:51 | HP ---
Date of Admission: 08/12/2018 The patient was seen and examined, chart reviewed, and case discussed with RN. Chief Complaint: Generalized pain, sickle cell crisis. History Of Present Illness: The patient is a 27-year-old female with past medical history of sickle cell disease, who was recently discharged from [facility] on 08/10/2018, for similar issues of sickle cell crisis. The patient spent a week over there and since discharge has gone to [facility] who gave her pain medications and released her. The patient comes in again with worsening symptoms, pain all over her body, shortness of breath, and not being able to tolerate a diet, having some nausea, has only thrown up once today , but not since she got to the ER. The patient's symptoms are constant, severe , and progressive. In the ER, her workup revealed a white count of 19,000, which is around her baseline. Hemoglobin was around 10.9. She has been transfused previously. Potassium was low at 2.9. The patient's chest x-ray did not show any acute intrathoracic process. The patient was then referred for admission. She was given Dilaudid through the IV diluted with normal saline and has had minimal relief. Past Medical History: Sickle cell disease, blood clot. Past Surgical History: Port-A-Cath placement. yeast pusher History: Last menstrual period is 08/07/2018. Allergies: TO ZOFRAN. Medications: List reviewed. The patient is on hydromorphone 8 mg p.o. q.6 hours, folic acid daily. Family History: Parents have sickle cell trait. Social History: The patient denies any tobacco use, alcohol use, or illicit drug use. Review of Systems: An 11-point system reviewed, negative except as per HPI. Physical Examination: Vital Signs: Blood pressure 144/99, pulse 81, respirations 19, temperature 98.8 , O2 98% on room air. General: Awake, alert, oriented x3, in some moderate distress. Ill-appearing female. HEENT: Normocephalic, atraumatic. PERRLA. EOMI. Moist mucous membranes. Oropharynx is clear. Conjunctivae are anicteric. Neck: Supple. No JVD. Trachea midline. CV: S1, S2. Regular rate and rhythm. No murmurs. Respiratory: Moving air well bilaterally. No wheezing or stridor. Gastrointestinal: Abdomen is soft, nontender, and nondistended. Positive bowel sounds. No guarding or rigidity. Extremities: No clubbing, cyanosis, or edema. No calf tenderness. Neuro: Cranial nerves 2-12 intact grossly. No focal neurological deficit. Speech is normal. Strength is 5/5 in bilateral upper and lower extremities. Musculoskeletal: Diffuse tenderness including lower extremities and upper extremities. Skin: No rashes. Normal skin turgor. Laboratory Data: Sodium 138, potassium 2.9, chloride 105, CO2 24, BUN 5, creatinine 0.54, glucose 100, calcium 9.4. WBC 19.8, H and H 10.9 and 31.2, platelets 497. Retic count is 9. Chest x-ray shows no acute intrathoracic process. Assessment And Plan: A 27-year-old female with: 1. Sickle cell crisis. We will continue with IV fluids. Monitor H and H. the patient was recently transfused at outside facility. We will monitor and follow retic count. 2. Acute hypokalemia, likely due to nausea and vomiting. We will replace and monitor. 3. Not intractable nausea and vomiting, improving. We will start her on diet , antiemetics p.r.n. 4. History of blood clots, apparently is on blood thinners. We will confirm dose and restart. Admit the patient to Med-Surg, place as observation. We will check serum test. The patient is allergic to Zofran. We will switch over to Phenergan for antiemetics. We will continue with IV fluid hydration, pain medications. The patient is narcotic dependent, takes 8 mg of p.o. Dilaudid every 6 hours. She follows with Dr. Inman in [place]. Likely discharge in the a.m. if the patient improves. /MARIA GUADALUPE Voice ID: [id number] JOSE
[2018-08-13] MEDS: HYDROMORPHONE HCL 1 MG/ML INJ IV PRN ×2 (03:01→09:33)
[2018-08-13 05:42] LABS: ALT/SGPT 35 U/L (12-78); AST/SGOT 20 U/L (15-37); Albumin 4.2 g/dL (3.4-5.0); Alkaline Phosphatase 82 U/L (45-117); BUN Blood Urea Nitrogen 4 mg/dL (7-18); Bicarbonate 26 mmol/L (21-32); Bilirubin Total 4.7 mg/dL (0.2-1.0); Glucose Level 105 mg/dL (74-106); Hematocrit 26.5 % (36.0-45.0); MPV 9.3 fL (7.6-11.3); Magnesium 1.8 mg/dL (1.8-2.4); Potassium 3.5 mmol/L (3.5-5.1); Protein, Total 7.7 g/dL (6.4-8.2); RBC Red Blood Cell Count 2.75 M/uL (3.86-4.86); Sodium Level 142 mmol/L (136-145)
[2018-08-13 06:54] LABS: Anisocytosis 2+; Blood Morphology Comment NOTED (NOT SEEN); Platelet Estimate ADEQ; Polychromasia 1+; Target Cells 1+
[2018-08-13] MEDS ORDERED: POTASSIUM 25 MEQ EFFERV TAB PO ONE (07:00)
[2018-08-13] MEDS ORDERED: MAGNESIUM SULFATE 1 gm IVPB 1 GM/100 ML BAG IV ONE (07:00)
[2018-08-13] MEDS: APIXABAN 2.5 MG TABLET PO SCH ×2 (09:34→21:48)
[2018-08-13] MEDS: FOLIC ACID 1 MG TABLET PO SCH (09:34)
[2018-08-13] MEDS: NA CHLORIDE 0.9% 1,000 ML IV SCH ×2 (09:35→21:00)
[2018-08-13] MEDS ORDERED: PROMETHAZINE 25 MG/ML VIAL IV ONE (11:26)
[2018-08-13] MEDS: HYDROMORPHONE ORAL 4 MG TAB PO PRN ×2 (15:27→21:48)
[2018-08-13] MEDS: METOCLOPRAMIDE 10 MG/2mL INJ IV PRN ×2 (17:48→23:21)
--- NOTE | 2018-08-13 20:50 | PN ---
Date of Progress Note: 08/13/2018 Subjective: The patient seen and examined. Chart reviewed and case discussed with RN. The patient having significant amount of nausea and vomiting, unable to tolerate any p.o. Complains of pain. Medications: List reviewed. Physical Examination: Vital Signs: Temperature 97.5, heart rate 54, blood pressure 145/76, respirations 18, O2 97% on room air. General: Awake, alert, oriented x3, ill-appearing female, in some mild distress. CV: S1 and S2. Regular rate and rhythm. Peripheral pulses present. Respiratory: Moving air well bilaterally. No wheezing or stridor. Gastrointestinal: Abdomen is soft, nontender, nondistended. Positive bowel sounds. Extremities: No clubbing, cyanosis, or edema. Neurologic: Nonfocal. Musculoskeletal: The patient has some tenderness of the upper extremities as well as the lower extre mities. Neurologic: Nonfocal. Laboratory Data: Sodium 142, potassium 3.5, chloride 110, CO2 26, BUN 4, creatinine 0.41, glucose 10 5, calcium 8.7, magnesium 1.8. WBC 19.4, H and H 9.3 and 26.5, platelets 383. Urine culture shows n o growth. Assessment And Plan: A 27-year-old female with: 1.Acute sickle cell crisis. We will continue with IV fluids. Adjust pain medications. Monitor H a nd H, transfuse as needed. 2.Acute hypokalemia, replaced. We will continue to monitor. 3.Non-intractable nausea and vomiting. The patient has significant amount of emesis, unable to tole rate p.o. We will switch down to liquid diet for now. Continue antiemetics. The patient claims she is allergic to Zofran. We will give Phenergan. 4.Apparent history of thromboembolism. Restart anticoagulation. 5.Deep venous thrombosis prophylaxis with blood thinner. Plan: Likely discharge once the patient is tolerating her diet and pain has improved. /MARIA GUADALUPE Voice ID: [id number] Report ID: [id number]
[2018-08-14] MEDS: NA CHLORIDE 0.9% 1,000 ML IV SCH (05:27)
[2018-08-14 05:51] LABS: BUN Blood Urea Nitrogen 4 mg/dL (7-18); Bicarbonate 28 mmol/L (21-32); Glucose Level 92 mg/dL (74-106); Magnesium 1.9 mg/dL (1.8-2.4); Potassium 3.4 mmol/L (3.5-5.1); Sodium Level 141 mmol/L (136-145)
[2018-08-14] MEDS: KCL 20 MEQ/100 mL IVPB 20 MEQ/100 ML BAG IV SCH ×2 (06:56→08:29)
[2018-08-14] MEDS: FOLIC ACID 1 MG TABLET PO SCH (08:28)
[2018-08-14] MEDS: METOCLOPRAMIDE 10 MG/2mL INJ IV PRN ×2 (08:29→14:43)
[2018-08-14] MEDS: APIXABAN 2.5 MG TABLET PO SCH (08:29)
[2018-08-14] MEDS: HYDROMORPHONE ORAL 4 MG TAB PO PRN ×2 (08:29→14:43)
[2018-08-14 11:04] VITALS: O2SAT 96
[2018-08-14 13:25] VITALS: BP 108/50; TEMP 96.9
[2018-08-14] MEDS ORDERED: HEPARIN 500 UNIT/5 ML SYR IV ONE (17:00)
--- NOTE | 2018-08-15 06:24 | DS ---
Date of Discharge: 08/14/2018 Discharge Diagnoses: 1. Acute sickle cell crisis, improved. 2. Acute hypokalemia, replaced. 3. Intractable nausea and vomiting, resolved. 4. History of thromboembolism, on anticoagulation. Hospital Course: The patient is a 27-year-old female with sickle cell disease, who was recently discharged from [facility] on 08/10/2018 after being admitted for a week for sickle cell anemia. The patient then went to [facility], was not admitted, and then came to [facility] for further evaluation. She was admitted for sickle cell crisis. Her white blood cell count was around her usual. She did have some hypokalemia, and she was unable to tolerate her diet due to nausea and vomiting. The patient was started on IV pain medications and antiemetics. The patient did improve and was able to tolerate a soft diet. White count remained stable as did her hemoglobin. Her urine culture grew out mixed hillary. Chest x-ray was clear. She did not seem to have acute chest syndrome. The patient states she used to follow up with Hematology in [place], has not gone due to inability to afford the appointment. The patient had slow improvement in her condition, however, was finally able to tolerate her diet, pain improved, and she was then cleared for discharge and was sent home in a stable condition. Activity: As tolerated. No driving or operating heavy machinery while on narcotics. Diet: Heart healthy. Followup: Follow up with primary care physician in 2-3 days. Follow up with employee development manager in 1-2 weeks. Return to ER for worsening condition. It should be noted that the patient did display behaviors, consistent with pain medication seeking behavior and does have narcotic dependency. Physical Examination: General: Awake, alert, oriented, no acute distress. CV: S1, S2. No murmurs. Respiratory: Moving air well bilaterally. Abdomen: Soft, nontender, nondistended. Positive bowel sounds. Extremities: No clubbing, cyanosis, edema. Neurologic: Nonfocal. SA/MODL Voice ID: [id number] Report ID: [id number] JOSE
--- NOTE | 2018-08-19 11:09 | EKG ---
Test Date: 2018-08-12 Test Time: 10:31:50 Heel Attacher: ELIZABETH MEASUREMENT RESULTS: Intervals: Rate: 47 OK: 126 QRSD: 84 QT: 510 QTc: 451 [place]: P: 27 OK: 126 QRS: 68 T: 81 INTERPRETIVE STATEMENTS: Marked sinus bradycardia T wave abnormality, consider anterior ischemia Abnormal ECG Compared to ECG 11/02/2016 19:03:05 T-wave abnormality now present Possible ischemia now present Electronically Signed On 08-12-18 17:01:03 CDT by Herman Gailndo
== END 2018-08-14 16:26 | disposition home or self-care (01) ==
LOC: ER 08:35 → ERHOLD 12:45 → 2ND 13:45
PROVIDERS: ADMIT Family Medicine; ATTEND Family Medicine
DX: D57.819 Other sickle-cell disorders with crisis, unspecified (principal); E87.6 Hypokalemia; R52 Pain, unspecified; Z79.01 Long term (current) use of anticoagulants; Z88.8 Allergy status to other drugs, medicaments and biological substances; Z86.718 Personal history of other venous thrombosis and embolism
CPT/HCPCS: 36415; 71045; 80048; 80053; 81003; 81015; 83735; 84132; 84703; 85025; 85044; 87086; 87088; 93005; 94760; 96361; 96374; 96375; 99285; G0378; J1170; J1642; J2550; J2765; J3475; J7030

== ENCOUNTER 2019-11-13 00:18 | Inpatient (IN) | payer OTHER ==
--- OUTSIDE RECORDS SUMMARY | 2019-11-13 00:21 | XMS REPORT | Clinical Summary ---
:[address] [facility] Address [address] [place] [address] Care Team Providers Name Role Phone Tasha Campos MD Primary Care Provider Allergies Active Allergy Reactions Severity Noted Date Comments Ondansetron Hcl (Pf) Nausea And Vomiting Low 07/10/2015 Medications Medication Sig Dispensed Refills Start Date End Date Status folic acid (FOLVITE) 1 MG Take 2 mg by 0 Active tabletIndications: mouth daily. inadequate folic acid penicillin v potassium Take 250 mg by [...] HFA 90 Inhale 1 puff 0 07/04/2018 A ctive mcg/actuation inhaler by mouth via inhaler every [...] cell anemia 07/11/2015 Sickle cell crisis 07/10/2015 Family History Medical History Relation Name Comments [...] travel history available. Last Filed Vital Signs Not on file Plan of Treatment Not on file Results Not on fileafter 11/12/2018 Insurance Payer Benefit Plan / Subscriber ID Type Phone Address Group MEDICAID - MEDICAID [employer] [facility] [employer] xxxxxxxxx Medicaid Contracted [facility] CARE PLAN Advance Directives For more information, please contact:[address] [phone] Code Status Date Activated Date Inactivated Comments Full Code 08/02/2018 7:12 AM 08/10/2018 4:40 PM This code status was determined by: Patient Full Code 07/10/2015 11:45 PM 07/14/2015 10:45 PM This code status was determined by: Patient
--- OUTSIDE RECORDS SUMMARY | 2019-11-13 00:24 | XMS REPORT | Continuity of Care Document ---
:1990 Author Organization [facility] t Address [address] [place] [address] Support Name Relationship Address Phone DENI Unavailable [address] [address] [facility] [phone] [address] [place] [address] DENI Unavailable 188[address] [address] [facility] [phone] [address] [facility] [place] [address] JORDAN Unavailable 108[address] Qgiv [facility] [phone] [place] [address] JORDAN Unavailable [address] [address] [facility] [phone] [place] [address] CLINTON DELEON MD E Admitting Provider [address] [facility] [address] [phone] [place] [address] JESSICA SIDDIQUI Primary Care Physician [address] [place] [address] [address] [place] [address] VIJAYA MULLEN, A Emergency Provider [address] [facility] [place] [place] [address] NAIMA MULLEN Attending Provider [address] [place] [address] JORDAN Next of Kin [address] [place] [address] IZZY MULLEN, E Emergency Provider [address] [facility] [address] [place] [address] PHYSICIAN Primary Care Physician Unavailable Unavailab chrissy GRISSOM MD Emergency Provider [address] [facility] [place] [address] OTHER, NAME IN NOTES Primary Care Physician Unavailable Sylvie caity SHIN MD, MD Emergency Provider [address] [facility] [phone] [place] [address] ISABELLA MULLEN, MORE Admitting Provider [address] [phone] [place] [address] [address] [place] [address] Care Team Providers Name Role Phone Shaikh PAZ, Tasha Primary Care Physician ERIBERTO WOODRUFF Attending Clinician Unavailable Antonia CARTER Admitting Clinician Unavailable Payers Payer Name Policy Type Policy Number Effective Date Expiration Date S ource Problems Condition Condition Condition Status Onset Resolution Last Treating Co mments Source Name Details Category Date Date Treatment Clinician Date Leukocytos Leukocytos Disease Active [facility] [place] Pneumonia Pneumonia Disease Active [facility] 00 [place] 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[facility] - anemia anemia 00:00: Medical 00 [place] 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[facility] 2- [facility] - crisis crisis 00:00: Medical 00 [place] Allergies, Adverse Reactions, Alerts Allergy Allergy Status Severity Reaction(s) Onset Inactive Treating Comm ents Source Name Type Date Date Clinician Ondanset Drug Active Nausea And [facility] brittney Hcl Intolera Vomiting 2 [facility] - (Pf) nce 00:00: Medical 00 [place] morphine DA Active [facility] 3[facility] [place] 00:00: d 00 [facility] TEGEDERM DA Active [facility] DRESSING [facility]- [place] 00:00: d 00 [facility] Family History Family Member Diagnosis Comments Start Date Stop Date Source Natural brother Unremarkable [facility] Natural father Seizures [facility] Natural father Sickle cell trait [facility] Natural mother Sickle cell trait [facility] Natural sister Unremarkable [facility] Social History Social Habit Start Date Stop Date Quantity Comments Source Sex Assigned At [facility] Smoking Status Start Date Stop Date Source [facility] smoker [facility] Ordered Filled Start Stop Current Ordering Indication Dosage Frequency Signature Comments Components Source Medication Medication Date Date Medication? Clinician (SIG) Name Name HYDROmorpho Yes 8mg Take [address] ne 3-23 by mouth [facility] - (DILAUDID) 06:08: every 6 Medi rita 8 MG tablet 04 (six) Center hours as needed for Pain. apixaban Yes 2.5mg Q.5D Take 2.[address] [facility] (ELIQUIS) 3-23 mg by [facility] - 2.5 mg Tab 06:08: mouth 2 [facility]i rita tablet 04 (two) Center times daily. ALPRAZolam 2018- Yes 1mg Take [address] (XANAX) 1 3-23 by mouth 2 Luke s - MG tablet 06:08: (two) Medical 04 times Center daily as needed for Anxiety. VITAMIN D2 2018- Yes 1{capsu Q7D Take [address] 50,000 unit 2-25 le} capsule by Ariana kes - capsule 00:00: mouth once Medi rita 00 a week. Center PROAIR HFA Yes 1{puff} Inhale [address] 90 2-22 puff by [facility] - mcg/actuati 00:00: mouth via M edical on inhaler 00 inhaler Center every 6 (six) hours as needed. prochlorper Yes 1{tbl} Take [address] azine 1-14 tablet by [facility] - (COMPAZINE) 00:00: mouth Medic al 10 MG 00 every 8 Center tablet (eight) hours as needed nausea. penicillin 2015- Yes 250mg Take [address] v potassium 2-28 mg by [facility] - (VEETID) 23:51: mouth Medical 250 MG 08 every 12 Center tablet (twelve) hours. folic acid Yes inadequate 2mg QD Take [address] (FOLVITE) 1 2-28 folic acid by mouth [facility] - MG tablet 23:51: daily. Medica l 07 Center Procedures This patient has no known procedures. Encounters Start End Encounter Admission Attending Care Care Encounter Source Date/Time Date/Time Type Type Clinicians Facility Department ID 2019-06-14 2019-06-14 Emergency E [facility] [id number] [facility]BL 16:16:00 16:16:00 2019-06-09 2019-06-09 Inpatient E [facility] [id number] [facility] 09:53:00 05:29:00 2019-06-05 2019-06-05 Emergency E [facility] [id number] [facility]BL 00:19:00 00:19:00 2019-04-29 2019-04-29 Emergency E SW SW 7517 SW 19:58:00 19:58:00 2019-03-26 2019-03-26 Emergency E [facility] [id number] [facility]BL 18:25:00 18:25:00 2019-03-09 2019-03-09 Emergency E [facility] [id number] MHBL 21:18:00 21:18:00 2019-03-07 2019-03-07 Emergency E [facility] [id number] MHBL 16:46:00 16:46:00 2019-01-12 2019-01-12 Emergency E [facility] [id number] MHBL 20:51:00 20:51:00 2019-01-05 2019-01-05 Emergency E [facility] [id number] MHBL 06:56:00 06:56:00 2019-01-03 2019-01-03 Emergency E [facility] [id number] MHBL 04:27:00 04:27:00 2018-07-20 2018-07-20 Emergency E [facility] [id number] [facility]BL 10:30:00 10:30:00 Results Test Description Test Time Test Comments Results Result Comments Source CBC W/PLT COUNT & AUTO DIFFERENTIAL 2018-08-10 08:25:00 Test Item Value Reference Range Interpretation Comme nts WHITE BLOOD CELL COUNT (BEAKER) (test code = 775) 13.2 K/ L 3.5- 10.5 H RED BLOOD CELL COUNT (BEAKER) (test code = 761) 2.47 M/ L 3.93-5 .22 L HEMOGLOBIN (BEAKER) (test code = 410) 8.4 GM/DL 11.2-15.7 L HEMATOCRIT (BEAKER) (test code = 411) 23.4 % 34.1-44.9 L MEAN CORPUSCULAR VOLUME (BEAKER) (test code = 753) 94.7 fL 79. 4-94.8 MEAN CORPUSCULAR HEMOGLOBIN (BEAKER) (test code = 751) 34.0 pg 25.6-32.2 H MEAN CORPUSCULAR HEMOGLOBIN CONC (BEAKER) (test code = 752) 35.9 GM/DL 32.2-35.5 H RED CELL DISTRIBUTION WIDTH (BEAKER) (test code = 412) 22.4 % 11.7-14.4 H PLATELET COUNT (BEAKER) (test code = 756) 448 K/CU MM 150-450 MEAN PLATELET VOLUME (BEAKER) (test code = 754) 10.9 fL 9.4-12 .3 NUCLEATED RED BLOOD CELLS (BEAKER) (test code = 413) 13 /100 WBC 0 -0 H (CELLAVISION MANUAL DIFF)2018-08-10 08:25:00 Test Item Value Reference Range Interpretation Comments NEUTROPHILS - REL 55 % (CELLAVISION)(BEAKER) (test code = 2816) LYMPHOCYTES - REL 26 % (CELLAVISION)(BEAKER) (test code = 2817) MONOCYTES - REL 13 % (CELLAVISION)(BEAKER) (test code = 2818) EOSINOPHILS - REL 1 % (CELLAVISION)(BEAKER) (test code = 2819) BASOPHILS - REL 2 % (CELLAVISION)(BEAKER) (test code = 2820) MYELOCYTES - REL 2 % 0-0 H (CELLAVISION)(BEAKER) (test code = 2822) PROMYELOCYTES - REL 1 % 0-0 H (CELLAVSION)(BEAKER) (test code = 2825) NEUTROPHILS - ABS 7.26 K/ul 1.56-6.13 H (CELLAVISION)(BEAKER) (test code = 2830) LYMPHOCYTES - ABS 3.43 K/ul 1.18-3.74 (CELLAVISION)(BEAKER) (test code = 2831) MONOCYTES - ABS 1.72 K/uL 0.24-0.36 H (CELLAVISION)(BEAKER) (test code = 2832) EOSINOPHILS - ABS 0.13 K/uL 0.04-0.36 (CELLAVISION)(BEAKER) (test code = 2834) BASOPHILS - ABS 0.26 K/uL 0.01-0.08 H (CELLAVISION)(BEAKER) (test code = 2835) MYELOCYTES-ABS 0.26 K/uL 0.00-0.00 H (CELLAVISION)(BEAKER) (test code = 2837) PROMYELOCYTES - ABS 0.13 K/uL 0.00-0.00 H (CELLAVISION)(BEAKER) (test code = 2838) TOTAL COUNTED (BEAKER) (test code 100 = 1351) MANUAL NRBC PER 100 CELLS 20 /100 WBC 0-0 H (BEAKER) (test code = 1353) WBC MORPHOLOGY (BEAKER) (test Normal code = 487) GIANT PLATELETS (BEAKER) (test Present code = 313) POLYCHROMATOPHILLIC RBCS(BEAKER) 2+ moderate (test code = 478) ANISOCYTOSIS (BEAKER) (test code 1+ few = 961) MICROCYTES (BEAKER) (test code = 1+ few 965) MACROCYTES (BEAKER) (test code = 1+ few 964) POIKILOCYTES (BEAKER) (test code 2+ moderate = 966) TARGET CELLS (BEAKER) (test code 1+ few = 480) SCHISTOCYTES (BEAKER) (test code 1+ few = 765) SICKLE CELLS (BEAKER) (test code 2+ moderate = 767) MARISA CELLS (BEAKER) (test code = 1+ few 474) ARTIFACT (CELLAVISION)(BEAKER) Present (test code = 3432) PLATELET CONCENTRATION Adequate (CELLAVISION)(BEAKER) (test code = 3438) Received comment: User comments: Slide comments:RETICULOCYTE [id number] 08:06:00 Test Item Value Reference Range Interpretation Comments RETICULOCYTE COUNT PCT (BEAKER) (test 25.0 % 0.5-1.7 H code = 575) CBC W/PLT COUNT & AUTO [id number] 09:27:00 Test Item Value Reference Range Interpretation Comments WHITE BLOOD CELL COUNT (BEAKER) 17.2 K/ L 3.5-10.5 H (test code = 775) RED BLOOD CELL COUNT (BEAKER) 2.38 M/ L 3.93-5.22 L (test code = 761) HEMOGLOBIN (BEAKER) (test code = 8.0 GM/DL 11.2-15.7 L 410) HEMATOCRIT (BEAKER) (test code = 22.6 % 34.1-44.9 L 411) MEAN CORPUSCULAR VOLUME (BEAKER) 95.0 fL 79.4-94.8 H (test code = 753) MEAN CORPUSCULAR HEMOGLOBIN 33.6 pg 25.6-32.2 H (BEAKER) (test code = 751) MEAN CORPUSCULAR HEMOGLOBIN CONC 35.4 GM/DL 32.2-35.5 (BEAKER) (test code = 752) RED CELL DISTRIBUTION WIDTH 23.0 % 11.7-14.4 H (BEAKER) (test code = 412) PLATELET COUNT (BEAKER) (test 462 K/CU MM 150-450 H code = 756) MEAN PLATELET VOLUME (BEAKER) 10.7 fL 9.4-12.3 (test code = 754) NUCLEATED RED BLOOD CELLS 16 /100 WBC 0-0 H (BEAKER) (test code = 413) (CELLAVISION MANUAL DIFF)2018-08-09 09:27:00 Test Item Value Reference Range Interpretation Comments NEUTROPHILS - REL 58 % (CELLAVISION)(BEAKER) (test code = 2816) LYMPHOCYTES - REL 22 % (CELLAVISION)(BEAKER) (test code = 2817) MONOCYTES - REL 16 % (CELLAVISION)(BEAKER) (test code = 2818) BASOPHILS - REL 3 % (CELLAVISION)(BEAKER) (test code = 2820) NEUTROPHILS - ABS 9.98 K/ul 1.56-6.13 H (CELLAVISION)(BEAKER) (test code = 2830) LYMPHOCYTES - ABS 3.78 K/ul 1.18-3.74 H (CELLAVISION)(BEAKER) (test code = 2831) MONOCYTES - ABS 2.75 K/uL 0.24-0.36 H (CELLAVISION)(BEAKER) (test code = 2832) BASOPHILS - ABS 0.52 K/uL 0.01-0.08 H (CELLAVISION)(BEAKER) (test code = 2835) TOTAL COUNTED (BEAKER) (test code 100 = 1351) MANUAL NRBC PER 100 CELLS 29 /100 WBC 0-0 H (BEAKER) (test code = 1353) GIANT PLATELETS (BEAKER) (test Present code = 313) PLASMACYTOID LYMPHS(BEAKER) (test Present code = 1677) POLYCHROMATOPHILLIC RBCS(BEAKER) 2+ moderate (test code = 478) HYPOCHROMIA (BEAKER) (test code = 1+ few 963) ANISOCYTOSIS (BEAKER) (test code 2+ moderate = 961) MACROCYTES (BEAKER) (test code = 2+ moderate 964) POIKILOCYTES (BEAKER) (test code 2+ moderate = 966) TARGET CELLS (BEAKER) (test code 1+ few = 480) SICKLE CELLS (BEAKER) (test code 2+ moderate = 767) ELLIPTOCYTES (BEAKER) (test code 2+ moderate = 962) OVALOCYTES (BEAKER) (test code = 1+ few 477) BURT-JOLLY BODIES (BEAKER) 2+ moderate (test code = 475) ARTIFACT (CELLAVISION)(BEAKER) Present (test code = 3432) PAPPENHEIMER 1+ few (CELLAVISION)(BEAKER) (test code = 3435) PLATELET CONCENTRATION Increased (CELLAVISION)(BEAKER) (test code = 3438) Received comment: User comments: Slide comments:RETICULOCYTE [id number] 05:01:00 Test Item Value Reference Range Interpretation Comments RETICULOCYTE COUNT PCT (BEAKER) (test 21.6 % 0.5-1.7 H code = 575) CBC W/PLT COUNT & AUTO [id number] 15:17:00 Test Item Value Reference Range Interpretation Comments WHITE BLOOD CELL COUNT (BEAKER) 23.1 K/ L 3.5-10.5 H (test code = 775) RED BLOOD CELL COUNT (BEAKER) 1.76 M/ L 3.93-5.22 L (test code = 761) HEMOGLOBIN (BEAKER) (test code = 6.1 GM/DL 11.2-15.7 L 410) HEMATOCRIT (BEAKER) (test code = 17.3 % 34.1-44.9 L 411) MEAN CORPUSCULAR VOLUME (BEAKER) 98.3 fL 79.4-94.8 H (test code = 753) MEAN CORPUSCULAR HEMOGLOBIN 34.7 pg 25.6-32.2 H (BEAKER) (test code = 751) MEAN CORPUSCULAR HEMOGLOBIN CONC 35.3 GM/DL 32.2-35.5 (BEAKER) (test code = 752) RED CELL DISTRIBUTION WIDTH 27.9 % 11.7-14.4 H (BEAKER) (test code = 412) PLATELET COUNT (BEAKER) (test 502 K/CU MM 150-450 H code = 756) MEAN PLATELET VOLUME (BEAKER) 10.9 fL 9.4-12.3 (test code = 754) NUCLEATED RED BLOOD CELLS 14 /100 WBC 0-0 H (BEAKER) (test code = 413) (CELLAVISION MANUAL DIFF)2018-08-08 15:17:00 Test Item Value Reference Range Interpretation Comments NEUTROPHILS - REL 52 % (CELLAVISION)(BEAKER) (test code = 2816) LYMPHOCYTES - REL 32 % (CELLAVISION)(BEAKER) (test code = 2817) MONOCYTES - REL 10 % (CELLAVISION)(BEAKER) (test code = 2818) BASOPHILS - REL 3 % (CELLAVISION)(BEAKER) (test code = 2820) BANDS - REL (CELLAVISION)(BEAKER) 1 % 0-10 (test code = 2826) ATYPICAL LYMPHOCYTES - REL 2 % 0-0 H (CELLAVISION)(BEAKER) (test code = 2829) NEUTROPHILS - ABS 12.01 K/ul 1.56-6.13 H (CELLAVISION)(BEAKER) (test code = 2830) LYMPHOCYTES - ABS 7.39 K/ul 1.18-3.74 H (CELLAVISION)(BEAKER) (test code = 2831) MONOCYTES - ABS 2.31 K/uL 0.24-0.36 H (CELLAVISION)(BEAKER) (test code = 2832) BASOPHILS - ABS 0.69 K/uL 0.01-0.08 H (CELLAVISION)(BEAKER) (test code = 2835) BANDS - ABS (CELLAVISION)(BEAKER) 0.23 K/uL 0.00-0.80 (test code = 2840) ATYPICAL LYMPHOCYTES - ABS 0.46 K/uL 0.00-0.00 H (CELLAVISION)(BEAKER) (test code = 2858) TOTAL COUNTED (BEAKER) (test code 100 = 1351) MANUAL NRBC PER 100 CELLS 14 /100 WBC 0-0 H (BEAKER) (test code = 1353) WBC MORPHOLOGY (BEAKER) (test Normal code = 487) GIANT PLATELETS (BEAKER) (test Present code = 313) POLYCHROMATOPHILLIC RBCS(BEAKER) 2+ moderate (test code = 478) ANISOCYTOSIS (BEAKER) (test code 1+ few = 961) MACROCYTES (BEAKER) (test code = 1+ few 964) POIKILOCYTES (BEAKER) (test code 2+ moderate = 966) TARGET CELLS (BEAKER) (test code 1+ few = 480) SICKLE CELLS (BEAKER) (test code 2+ moderate = 767) ELLIPTOCYTES (BEAKER) (test code 1+ few = 962) ARTIFACT (CELLAVISION)(BEAKER) Present (test code = 3432) PLATELET CONCENTRATION Increased (CELLAVISION)(BEAKER) (test code = 3438) Received comment: User comments: Slide comments:CBC (HEMOGRAM ONLY)2018-08-08 10:10:00 Test Item Value Reference Range Interpretation Comments WHITE BLOOD CELL COUNT (BEAKER) 21.0 K/ L 3.5-10.5 H (test code = 775) RED BLOOD CELL COUNT (BEAKER) 1.77 M/ L 3.93-5.22 L (test code = 761) HEMOGLOBIN (BEAKER) (test code = 6.0 GM/DL 11.2-15.7 LL 410) HEMATOCRIT (BEAKER) (test code = 16.9 % 34.1-44.9 L 411) MEAN CORPUSCULAR VOLUME (BEAKER) 95.5 fL 79.4-94.8 H (test code = 753) MEAN CORPUSCULAR HEMOGLOBIN 33.9 pg 25.6-32.2 H (BEAKER) (test code = 751) MEAN CORPUSCULAR HEMOGLOBIN CONC 35.5 GM/DL 32.2-35.5 (BEAKER) (test code = 752) RED CELL DISTRIBUTION WIDTH 27.1 % 11.7-14.4 H (BEAKER) (test code = 412) PLATELET COUNT (BEAKER) (test 484 K/CU MM 150-450 H code = 756) MEAN PLATELET VOLUME (BEAKER) 10.2 fL 9.4-12.3 (test code = 754) NUCLEATED RED BLOOD CELLS 13 /100 WBC 0-0 H (BEAKER) (test code = 413) RETICULOCYTE [id number] 08:44:00 Test Item Value Reference Range Interpretation Comments RETICULOCYTE COUNT PCT (BEAKER) (test 23.8 % 0.5-1.7 H code = 575) BLOOD [id number] 14:01:00 Test Item Value Reference Range Interpretation Comments CULTURE (BEAKER) (test No growth in 5 days code = 1095) BLOOD [id number] 12:01:00 Test Item Value Reference Range Interpretation Comments CULTURE (BEAKER) (test No growth in 5 days code = 1095) CBC W/PLT COUNT & AUTO [id number] 11:38:00 Test Item Value Reference Range Interpretation Comments WHITE BLOOD CELL COUNT (BEAKER) 22.4 K/ L 3.5-10.5 H (test code = 775) RED BLOOD CELL COUNT (BEAKER) 1.95 M/ L 3.93-5.22 L (test code = 761) HEMOGLOBIN (BEAKER) (test code = 6.6 GM/DL 11.2-15.7 L 410) HEMATOCRIT (BEAKER) (test code = 18.8 % 34.1-44.9 L 411) MEAN CORPUSCULAR VOLUME (BEAKER) 96.4 fL 79.4-94.8 H (test code = 753) MEAN CORPUSCULAR HEMOGLOBIN 33.8 pg 25.6-32.2 H (BEAKER) (test code = 751) MEAN CORPUSCULAR HEMOGLOBIN CONC 35.1 GM/DL 32.2-35.5 (BEAKER) (test code = 752) RED CELL DISTRIBUTION WIDTH 25.6 % 11.7-14.4 H (BEAKER) (test code = 412) PLATELET COUNT (BEAKER) (test 570 K/CU MM 150-450 H code = 756) MEAN PLATELET VOLUME (BEAKER) 11.1 fL 9.4-12.3 (test code = 754) NUCLEATED RED BLOOD CELLS 7 /100 WBC 0-0 H (BEAKER) (test code = 413) (CELLAVISION MANUAL DIFF)2018-08-07 11:38:00 Test Item Value Reference Range Interpretation Comments NEUTROPHILS - REL 42 % (CELLAVISION)(BEAKER) (test code = 2816) LYMPHOCYTES - REL 44 % (CELLAVISION)(BEAKER) (test code = 2817) MONOCYTES - REL 11 % (CELLAVISION)(BEAKER) (test code = 2818) EOSINOPHILS - REL 2 % (CELLAVISION)(BEAKER) (test code = 2819) ATYPICAL LYMPHOCYTES - REL 1 % 0-0 H (CELLAVISION)(BEAKER) (test code = 2829) NEUTROPHILS - ABS 9.41 K/ul 1.56-6.13 H (CELLAVISION)(BEAKER) (test code = 2830) LYMPHOCYTES - ABS 9.86 K/ul 1.18-3.74 H (CELLAVISION)(BEAKER) (test code = 2831) MONOCYTES - ABS 2.46 K/uL 0.24-0.36 H (CELLAVISION)(BEAKER) (test code = 2832) EOSINOPHILS - ABS 0.45 K/uL 0.04-0.36 H (CELLAVISION)(BEAKER) (test code = 2834) ATYPICAL LYMPHOCYTES - ABS 0.22 K/uL 0.00-0.00 H (CELLAVISION)(BEAKER) (test code = 2858) TOTAL COUNTED (BEAKER) (test code 100 = 1351) MANUAL NRBC PER 100 CELLS 10 /100 WBC 0-0 H (BEAKER) (test code = 1353) WBC MORPHOLOGY (BEAKER) (test Normal code = 487) LARGE PLT(BEAKER) (test code = Present 2156) POLYCHROMATOPHILLIC RBCS(BEAKER) 3+ many (test code = 478) HYPOCHROMIA (BEAKER) (test code = 2+ moderate 963) TARGET CELLS (BEAKER) (test code 2+ moderate = 480) SICKLE CELLS (BEAKER) (test code 3+ many = 767) BURT-JOLLY BODIES (BEAKER) 1+ few (test code = 475) ARTIFACT (CELLAVISION)(BEAKER) Present (test code = 3432) PLATELET CONCENTRATION Increased (CELLAVISION)(BEAKER) (test code = 3438) Received comment: User comments: Slide comments:RETICULOCYTE [id number] 07:44:00 Test Item Value Reference Range Interpretation Comments RETICULOCYTE COUNT PCT (BEAKER) (test 27.0 % 0.5-1.7 H code = 575) RETICULOCYTE [id number] 07:19:00 Test Item Value Reference Range Interpretation Comments RETICULOCYTE COUNT PCT (BEAKER) (test 22.7 % 0.5-1.7 H code = 575) CBC W/PLT COUNT & AUTO [id number] 12:07:00 Test Item Value Reference Range Interpretation Comments WHITE BLOOD CELL COUNT (BEAKER) 19.2 K/ L 3.5-10.5 H (test code = 775) RED BLOOD CELL COUNT (BEAKER) 1.96 M/ L 3.93-5.22 L (test code = 761) HEMOGLOBIN (BEAKER) (test code = 6.7 GM/DL 11.2-15.7 L 410) HEMATOCRIT (BEAKER) (test code = 18.3 % 34.1-44.9 L 411) MEAN CORPUSCULAR VOLUME (BEAKER) 93.4 fL 79.4-94.8 (test code = 753) MEAN CORPUSCULAR HEMOGLOBIN 34.2 pg 25.6-32.2 H (BEAKER) (test code = 751) MEAN CORPUSCULAR HEMOGLOBIN CONC 36.6 GM/DL 32.2-35.5 H (BEAKER) (test code = 752) RED CELL DISTRIBUTION WIDTH 21.9 % 11.7-14.4 H (BEAKER) (test code = 412) PLATELET COUNT (BEAKER) (test 531 K/CU MM 150-450 H code = 756) MEAN PLATELET VOLUME (BEAKER) 11.2 fL 9.4-12.3 (test code = 754) NUCLEATED RED BLOOD CELLS 2 /100 WBC 0-0 H (BEAKER) (test code = 413) (CELLAVISION MANUAL DIFF)2018-08-05 12:07:00 Test Item Value Reference Range Interpretation Comments NEUTROPHILS - REL 40 % (CELLAVISION)(BEAKER) (test code = 2816) LYMPHOCYTES - REL 34 % (CELLAVISION)(BEAKER) (test code = 2817) MONOCYTES - REL 14 % (CELLAVISION)(BEAKER) (test code = 2818) EOSINOPHILS - REL 6 % (CELLAVISION)(BEAKER) (test code = 2819) BASOPHILS - REL 2 % (CELLAVISION)(BEAKER) (test code = 2820) MYELOCYTES - REL 3 % 0-0 H (CELLAVISION)(BEAKER) (test code = 2822) ATYPICAL LYMPHOCYTES - REL 2 % 0-0 H (CELLAVISION)(BEAKER) (test code = 2829) NEUTROPHILS - ABS 7.68 K/ul 1.56-6.13 H (CELLAVISION)(BEAKER) (test code = 2830) LYMPHOCYTES - ABS 6.53 K/ul 1.18-3.74 H (CELLAVISION)(BEAKER) (test code = 2831) MONOCYTES - ABS 2.69 K/uL 0.24-0.36 H (CELLAVISION)(BEAKER) (test code = 2832) EOSINOPHILS - ABS 1.15 K/uL 0.04-0.36 H (CELLAVISION)(BEAKER) (test code = 2834) BASOPHILS - ABS 0.38 K/uL 0.01-0.08 H (CELLAVISION)(BEAKER) (test code = 2835) MYELOCYTES-ABS 0.58 K/uL 0.00-0.00 H (CELLAVISION)(BEAKER) (test code = 2837) ATYPICAL LYMPHOCYTES - ABS 0.38 K/uL 0.00-0.00 H (CELLAVISION)(BEAKER) (test code = 2858) TOTAL COUNTED (BEAKER) (test code 100 = 1351) MANUAL NRBC PER 100 CELLS 1 /100 WBC 0-0 H (BEAKER) (test code = 1353) SMUDGE CELLS (BEAKER) (test code Present = 1371) GIANT PLATELETS (BEAKER) (test Present code = 313) POLYCHROMATOPHILLIC RBCS(BEAKER) 2+ moderate (test code = 478) ANISOCYTOSIS (BEAKER) (test code 2+ moderate = 961) POIKILOCYTES (BEAKER) (test code 2+ moderate = 966) SICKLE CELLS (BEAKER) (test code 3+ many = 767) PLATELET CONCENTRATION Increased (CELLAVISION)(BEAKER) (test code = 3438) Received comment: User comments: Slide comments:RETICULOCYTE [id number] 06:14:00 Test Item Value Reference Range Interpretation Comments RETICULOCYTE COUNT PCT (BEAKER) (test 21.9 % 0.5-1.7 H code = 575) [id number] 06:02:00 Test Item Value Reference Range Interpretation Comments PHOSPHORUS (BEAKER) (test code = 3.8 mg/dL 2.3-4.7 604) [id number] 06:02:00 Test Item Value Reference Range Interpretation Comments MAGNESIUM (BEAKER) (test code = 1.8 mg/dL 1.6-2.6 627) BASIC METABOLIC [id number] 06:02:00 Test Item Value Reference Range Interpretation Comments SODIUM (BEAKER) 140 meq/L 136-145 (test code = 381) POTASSIUM (BEAKER) 3.6 meq/L 3.5-5.1 (test code = 379) CHLORIDE (BEAKER) 107 meq/L 98-107 (test code = 382) CO2 (BEAKER) (test 26 meq/L 22-29 code = 355) BLOOD UREA NITROGEN 4 mg/dL 7-21 L (BEAKER) (test code = 354) CREATININE (BEAKER) 0.57 mg/dL 0.57-1.25 (test code = 358) GLUCOSE RANDOM 109 mg/dL 70-105 H (BEAKER) (test code = 652) CALCIUM (BEAKER) 8.8 mg/dL 8.4-10.2 (test code = 697) EGFR (BEAKER) (test 155 mL/min/1.73 ESTIM ATED GFR IS code = 1092) sq m NOT ACCURATE CREATININE CLEARANCE IN PREDICTING GLOMERULAR FILTRATION RATE . ESTIMATED GFR I S NOT APPLICABLE FOR DIALYSIS PATIEN TS. Specimen moderately ictericCBC W/PLT COUNT & AUTO [id number] 09:09:00 Test Item Value Reference Range Interpretation Comments WHITE BLOOD CELL COUNT (BEAKER) 18.5 K/ L 3.5-10.5 H (test code = 775) RED BLOOD CELL COUNT (BEAKER) 2.02 M/ L 3.93-5.22 L (test code = 761) HEMOGLOBIN (BEAKER) (test code = 6.7 GM/DL 11.2-15.7 L 410) HEMATOCRIT (BEAKER) (test code = 18.7 % 34.1-44.9 L 411) MEAN CORPUSCULAR VOLUME (BEAKER) 92.6 fL 79.4-94.8 (test code = 753) MEAN CORPUSCULAR HEMOGLOBIN 33.2 pg 25.6-32.2 H (BEAKER) (test code = 751) MEAN CORPUSCULAR HEMOGLOBIN CONC 35.8 GM/DL 32.2-35.5 H (BEAKER) (test code = 752) RED CELL DISTRIBUTION WIDTH 19.9 % 11.7-14.4 H (BEAKER) (test code = 412) PLATELET COUNT (BEAKER) (test 525 K/CU MM 150-450 H code = 756) MEAN PLATELET VOLUME (BEAKER) 10.9 fL 9.4-12.3 (test code = 754) NUCLEATED RED BLOOD CELLS 1 /100 WBC 0-0 H (BEAKER) (test code = 413) (CELLAVISION MANUAL DIFF)[id number] 09:09:00 Test Item Value Reference Range Interpretation Comments NEUTROPHILS - REL 28 % (CELLAVISION)(BEAKER) (test code = 2816) LYMPHOCYTES - REL 53 % (CELLAVISION)(BEAKER) (test code = 2817) MONOCYTES - REL 13 % (CELLAVISION)(BEAKER) (test code = 2818) EOSINOPHILS - REL 3 % (CELLAVISION)(BEAKER) (test code = 2819) BANDS - REL (CELLAVISION)(BEAKER) 3 % 0-10 (test code = 2826) NEUTROPHILS - ABS 5.18 K/ul 1.56-6.13 (CELLAVISION)(BEAKER) (test code = 2830) LYMPHOCYTES - ABS 9.81 K/ul 1.18-3.74 H (CELLAVISION)(BEAKER) (test code = 2831) MONOCYTES - ABS 2.41 K/uL 0.24-0.36 H (CELLAVISION)(BEAKER) (test code = 2832) EOSINOPHILS - ABS 0.56 K/uL 0.04-0.36 H (CELLAVISION)(BEAKER) (test code = 2834) BANDS - ABS (CELLAVISION)(BEAKER) 0.56 K/uL 0.00-0.80 (test code = 2840) TOTAL COUNTED (BEAKER) (test code 100 = 1351) MANUAL NRBC PER 100 CELLS 2 /100 WBC 0-0 H (BEAKER) (test code = 1353) SMUDGE CELLS (BEAKER) (test code Present = 1371) GIANT PLATELETS (BEAKER) (test Present code = 313) POLYCHROMATOPHILLIC RBCS(BEAKER) 3+ many (test code = 478) HYPOCHROMIA (BEAKER) (test code = 1+ few 963) ANISOCYTOSIS (BEAKER) (test code 1+ few = 961) MICROCYTES (BEAKER) (test code = 1+ few 965) MACROCYTES (BEAKER) (test code = 1+ few 964) POIKILOCYTES (BEAKER) (test code 3+ many = 966) SICKLE CELLS (BEAKER) (test code 2+ moderate = 767) BURT-JOLLY BODIES (BEAKER) 1+ few (test code = 475) PLATELET CONCENTRATION Adequate (CELLAVISION)(BEAKER) (test code = 3438) Received comment: User comments: Slide comments:[id number] 04:11:00 Test Item Value Reference Range Interpretation Comments PHOSPHORUS (BEAKER) (test code = 3.3 mg/dL 2.3-4.7 604) [id number] 04:11:00 Test Item Value Reference Range Interpretation Comments MAGNESIUM (BEAKER) (test code = 1.6 mg/dL 1.6-2.6 627) BASIC METABOLIC [id number] 04:11:00 Test Item Value Reference Range Interpretation Comments SODIUM (BEAKER) 140 meq/L 136-145 (test code = 381) POTASSIUM (BEAKER) 3.9 meq/L 3.5-5.1 (test code = 379) CHLORIDE (BEAKER) 110 meq/L 98-107 H (test code = 382) CO2 (BEAKER) (test 22 meq/L 22-29 code = 355) BLOOD UREA NITROGEN 4 mg/dL 7-21 L (BEAKER) (test code = 354) CREATININE (BEAKER) 0.52 mg/dL 0.57-1.25 L (test code = 358) GLUCOSE RANDOM 82 mg/dL 70-105 (BEAKER) (test code = 652) CALCIUM (BEAKER) 8.6 mg/dL 8.4-10.2 (test code = 697) EGFR (BEAKER) (test 173 mL/min/1.73 ESTIM ATED GFR IS code = 1092) sq m NOT ACCURATE CREATININE CLEARANCE IN PREDICTING GLOMERULAR FILTRATION RATE . ESTIMATED GFR I S NOT APPLICABLE FOR DIALYSIS PATIEN TS. Specimen slightly ictericRETICULOCYTE [id number] 03:54:00 Test Item Value Reference Range Interpretation Comments RETICULOCYTE COUNT PCT (BEAKER) (test 20.4 % 0.5-1.7 H code = 575) CBC W/PLT COUNT & AUTO [id number] 18:30:00 Test Item Value Reference Range Interpretation Comments WHITE BLOOD CELL COUNT (BEAKER) 17.2 K/ L 3.5-10.5 H (test code = 775) RED BLOOD CELL COUNT (BEAKER) 2.21 M/ L 3.93-5.22 L (test code = 761) HEMOGLOBIN (BEAKER) (test code = 7.3 GM/DL 11.2-15.7 L 410) HEMATOCRIT (BEAKER) (test code = 20.5 % 34.1-44.9 L 411) MEAN CORPUSCULAR VOLUME (BEAKER) 92.8 fL 79.4-94.8 (test code = 753) MEAN CORPUSCULAR HEMOGLOBIN 33.0 pg 25.6-32.2 H (BEAKER) (test code = 751) MEAN CORPUSCULAR HEMOGLOBIN CONC 35.6 GM/DL 32.2-35.5 H (BEAKER) (test code = 752) RED CELL DISTRIBUTION WIDTH 19.6 % 11.7-14.4 H (BEAKER) (test code = 412) PLATELET COUNT (BEAKER) (test 550 K/CU MM 150-450 H code = 756) MEAN PLATELET VOLUME (BEAKER) 11.0 fL 9.4-12.3 (test code = 754) NUCLEATED RED BLOOD CELLS 1 /100 WBC 0-0 H (BEAKER) (test code = 413) CBC W/PLT COUNT & AUTO [id number] 10:51:00 Test Item Value Reference Range Interpretation Comments WHITE BLOOD CELL COUNT (BEAKER) 15.2 K/ L 3.5-10.5 H (test code = 775) RED BLOOD CELL COUNT (BEAKER) 2.01 M/ L 3.93-5.22 L (test code = 761) HEMOGLOBIN (BEAKER) (test code = 6.7 GM/DL 11.2-15.7 L 410) HEMATOCRIT (BEAKER) (test code = 18.8 % 34.1-44.9 L 411) MEAN CORPUSCULAR VOLUME (BEAKER) 93.5 fL 79.4-94.8 (test code = 753) MEAN CORPUSCULAR HEMOGLOBIN 33.3 pg 25.6-32.2 H (BEAKER) (test code = 751) MEAN CORPUSCULAR HEMOGLOBIN CONC 35.6 GM/DL 32.2-35.5 H (BEAKER) (test code = 752) RED CELL DISTRIBUTION WIDTH 19.4 % 11.7-14.4 H (BEAKER) (test code = 412) PLATELET COUNT (BEAKER) (test 474 K/CU MM 150-450 H code = 756) MEAN PLATELET VOLUME (BEAKER) 10.3 fL 9.4-12.3 (test code = 754) NUCLEATED RED BLOOD CELLS 1 /100 WBC 0-0 H (BEAKER) (test code = 413) (CELLAVISION MANUAL DIFF)2018-08-03 10:51:00 Test Item Value Reference Range Interpretation Comments NEUTROPHILS - REL 45 % (CELLAVISION)(BEAKER) (test code = 2816) LYMPHOCYTES - REL 40 % (CELLAVISION)(BEAKER) (test code = 2817) MONOCYTES - REL 10 % (CELLAVISION)(BEAKER) (test code = 2818) EOSINOPHILS - REL 2 % (CELLAVISION)(BEAKER) (test code = 2819) BASOPHILS - REL 2 % (CELLAVISION)(BEAKER) (test code = 2820) ATYPICAL LYMPHOCYTES - REL 1 % 0-0 H (CELLAVISION)(BEAKER) (test code = 2829) NEUTROPHILS - ABS 6.84 K/ul 1.56-6.13 H (CELLAVISION)(BEAKER) (test code = 2830) LYMPHOCYTES - ABS 6.08 K/ul 1.18-3.74 H (CELLAVISION)(BEAKER) (test code = 2831) MONOCYTES - ABS 1.52 K/uL 0.24-0.36 H (CELLAVISION)(BEAKER) (test code = 2832) EOSINOPHILS - ABS 0.30 K/uL 0.04-0.36 (CELLAVISION)(BEAKER) (test code = 2834) BASOPHILS - ABS 0.30 K/uL 0.01-0.08 H (CELLAVISION)(BEAKER) (test code = 2835) ATYPICAL LYMPHOCYTES - ABS 0.15 K/uL 0.00-0.00 H (CELLAVISION)(BEAKER) (test code = 2858) TOTAL COUNTED (BEAKER) (test code 100 = 1351) MANUAL NRBC PER 100 CELLS 1 /100 WBC 0-0 H (BEAKER) (test code = 1353) WBC MORPHOLOGY (BEAKER) (test Normal code = 487) GIANT PLATELETS (BEAKER) (test Present code = 313) POLYCHROMATOPHILLIC RBCS(BEAKER) 2+ moderate (test code = 478) HYPOCHROMIA (BEAKER) (test code = 1+ few 963) ANISOCYTOSIS (BEAKER) (test code 2+ moderate = 961) MACROCYTES (BEAKER) (test code = 1+ few 964) POIKILOCYTES (BEAKER) (test code 2+ moderate = 966) TARGET CELLS (BEAKER) (test code 1+ few = 480) SCHISTOCYTES (BEAKER) (test code 1+ few = 765) SICKLE CELLS (BEAKER) (test code 1+ few = 767) ELLIPTOCYTES (BEAKER) (test code 1+ few = 962) BURT-JOLLY BODIES (BEAKER) 2+ moderate (test code = 475) ARTIFACT (CELLAVISION)(BEAKER) Present (test code = 3432) PLATELET CONCENTRATION Adequate (CELLAVISION)(BEAKER) (test code = 3438) Received comment: User comments: Slide comments:RETICULOCYTE [id number] 10:08:00 Test Item Value Reference Range Interpretation Comments RETICULOCYTE COUNT PCT (BEAKER) (test 14.4 % 0.5-1.7 H code = 575) CBC W/PLT COUNT & AUTO [id number] 09:30:00 Test Item Value Reference Range Interpretation Comments WHITE BLOOD CELL COUNT 16.7 K/ L 3.5-10.5 H (BEAKER) (test code = 775) RED BLOOD CELL COUNT 2.13 M/ L 3.93-5.22 L (BEAKER) (test code = 761) HEMOGLOBIN (BEAKER) 7.3 GM/DL 11.2-15.7 L (test code = 410) HEMATOCRIT (BEAKER) 20.1 % 34.1-44.9 L (test code = 411) MEAN CORPUSCULAR 94.4 fL 79.4-94.8 Discordant MCV VOLUME (BEAKER) (test result s compared to code = 753) previous result s; clinical correl ation required. MEAN CORPUSCULAR 34.3 pg 25.6-32.2 H HEMOGLOBIN (BEAKER) (test code = 751) MEAN CORPUSCULAR 36.3 GM/DL 32.2-35.5 H HEMOGLOBIN CONC (BEAKER) (test code = 752) RED CELL DISTRIBUTION 18.7 % 11.7-14.4 H WIDTH (BEAKER) (test code = 412) PLATELET COUNT 512 K/CU MM 150-450 H (BEAKER) (test code = 756) MEAN PLATELET VOLUME 10.5 fL 9.4-12.3 (BEAKER) (test code = 754) NUCLEATED RED BLOOD 1 /100 WBC 0-0 H CELLS (BEAKER) (test code = 413) (CELLAVISION MANUAL DIFF)2018-08-03 09:30:00 Test Item Value Reference Range Interpretation Comments NEUTROPHILS - REL 28 % (CELLAVISION)(BEAKER) (test code = 2816) LYMPHOCYTES - REL 49 % (CELLAVISION)(BEAKER) (test code = 2817) MONOCYTES - REL 15 % (CELLAVISION)(BEAKER) (test code = 2818) EOSINOPHILS - REL 2 % (CELLAVISION)(BEAKER) (test code = 2819) BASOPHILS - REL 3 % (CELLAVISION)(BEAKER) (test code = 2820) ATYPICAL LYMPHOCYTES - REL 3 % 0-0 H (CELLAVISION)(BEAKER) (test code = 2829) NEUTROPHILS - ABS 4.68 K/ul 1.56-6.13 (CELLAVISION)(BEAKER) (test code = 2830) LYMPHOCYTES - ABS 8.18 K/ul 1.18-3.74 H (CELLAVISION)(BEAKER) (test code = 2831) MONOCYTES - ABS 2.51 K/uL 0.24-0.36 H (CELLAVISION)(BEAKER) (test code = 2832) EOSINOPHILS - ABS 0.33 K/uL 0.04-0.36 (CELLAVISION)(BEAKER) (test code = 2834) BASOPHILS - ABS 0.50 K/uL 0.01-0.08 H (CELLAVISION)(BEAKER) (test code = 2835) ATYPICAL LYMPHOCYTES - ABS 0.50 K/uL 0.00-0.00 H (CELLAVISION)(BEAKER) (test code = 2858) TOTAL COUNTED (BEAKER) (test code 100 = 1351) WBC MORPHOLOGY (BEAKER) (test Normal code = 487) GIANT PLATELETS (BEAKER) (test Present code = 313) POLYCHROMATOPHILLIC RBCS(BEAKER) 1+ few (test code = 478) ANISOCYTOSIS (BEAKER) (test code 1+ few = 961) MACROCYTES (BEAKER) (test code = 1+ few 964) POIKILOCYTES (BEAKER) (test code 2+ moderate = 966) TARGET CELLS (BEAKER) (test code 2+ moderate = 480) SICKLE CELLS (BEAKER) (test code 1+ few = 767) ELLIPTOCYTES (BEAKER) (test code 2+ moderate = 962) OVALOCYTES (BEAKER) (test code = 1+ few 477) TEAR DROP CELLS (BEAKER) (test 1+ few code = 481) BURT-JOLLY BODIES (BEAKER) 1+ few (test code = 475) ARTIFACT (CELLAVISION)(BEAKER) Present (test code = 3432) PLATELET CONCENTRATION Increased (CELLAVISION)(BEAKER) (test code = 3438) Received comment: User comments: Slide comments:[id number] 03:32:00 Test Item Value Reference Range Interpretation Comments PHOSPHORUS (BEAKER) (test code = 3.5 mg/dL 2.3-4.7 604) [id number] 03:32:00 Test Item Value Reference Range Interpretation Comments MAGNESIUM (BEAKER) (test code = 1.8 mg/dL 1.6-2.6 627) BASIC METABOLIC [id number] 03:32:00 Test Item Value Reference Range Interpretation Comments SODIUM (BEAKER) 141 meq/L 136-145 (test code = 381) POTASSIUM (BEAKER) 3.9 meq/L 3.5-5.1 (test code = 379) CHLORIDE (BEAKER) 111 meq/L 98-107 H (test code = 382) CO2 (BEAKER) (test 23 meq/L 22-29 code = 355) BLOOD UREA NITROGEN 5 mg/dL 7-21 L (BEAKER) (test code = 354) CREATININE (BEAKER) 0.54 mg/dL 0.57-1.25 L (test code = 358) GLUCOSE RANDOM 105 mg/dL 70-105 (BEAKER) (test code = 652) CALCIUM (BEAKER) 8.3 mg/dL 8.4-10.2 L (test code = 697) EGFR (BEAKER) (test 165 mL/min/1.73 ESTIM ATED GFR IS code = 1092) sq m NOT ACCURATE CREATININE CLEARANCE IN PREDICTING GLOMERULAR FILTRATION RATE . ESTIMATED GFR I S NOT APPLICABLE FOR DIALYSIS PATIEN TS. Specimen slightly ictericCT, CHEST WITH IV CONTRAST- PE TEST [id number] 14:01:00FINAL REPORT CT scan of the chest. MEDICAL [...] smaller than on previous. Signed: Ej Elaine MDReport Verified Date/Time: 08/02/2018 14:01:29 Reading Location: [facility] [id number] Ortho Consult Reading Room URINALYSIS W/ REFLEX URINE [id number] 11:27:00 Test Item Value Reference Range Interpretation Comments COLOR (BEAKER) (test code = 470) Yellow CLARITY (BEAKER) (test code = 469) Clear SPECIFIC GRAVITY UA (BEAKER) (test 1.008 1.001-1.035 code = 468) PH UA (BEAKER) (test code = 467) 5.5 5.0-8.0 PROTEIN UA (BEAKER) (test code = 10 mg/dL Negative A 464) GLUCOSE UA (BEAKER) (test code = Negative Negative 365) KETONES UA (BEAKER) (test code = Negative Negative 371) BILIRUBIN UA (BEAKER) (test code = Negative Negative 462) BLOOD UA (BEAKER) (test code = 461) Negative Negative NITRITE UA (BEAKER) (test code = Negative Negative 465) LEUKOCYTE ESTERASE UA (BEAKER) Negative Negative (test code = 466) UROBILINOGEN UA (BEAKER) (test code 0.2 mg/dL 0.2-1.0 = 463) RBC UA (BEAKER) (test code = 519) 0 /HPF WBC UA (BEAKER) (test code = 520) 1 /HPF MUCUS (BEAKER) (test code = 1574) Rare SQUAMOUS EPITHELIAL (BEAKER) (test 1 /HPF code = 516) SOURCE(BEAKER) (test code = 2795) SCREEN, [id number] 11:15:00 Test Item Value Reference Range Interpretation Comments TEST URINE (BEAKER) (test Negative code = 583) RETICULOCYTE [id number] 04:43:00 Test Item Value Reference Range Interpretation Comments RETICULOCYTE COUNT PCT (BEAKER) (test 13.2 % 0.5-1.7 H code = 575) RAD, CHEST, 2 [id number] 03:54:00Reason for exam:->SICKLE CELL PAIN CRISISIs the patient ?->UnknownShould this be performed at the bedside?->NoFINAL REPORT Examination: Two view Chest X-ray. CLINICAL HISTORY: Chest pain, history of sickle cell anemia COMPARISON: [id number] The cardiac silhouette is stable in its prominent size. There is central pulmonary vascular engorgement and bilateral perihilar interstitial opacity, sug gesting pulmonary edema. There is no focal consolidation, pneumothorax, large pleural effusion or acute bony abnormality. A right upper lobe cavitary lesion seen on imaging at 2016 has resolved. A left IJ chest port is in place. Signed: Costa Ferris MDReport Verified Date/Time: 08/02/2018 03:54:52Reading Location: [address] Reading Room CBC W/PLT COUNT & AUTO DIFFERENTIAL 2018-08-02 03:04:00 Test Item Value Reference Range Interpretation Comments WHITE BLOOD CELL 17.8 K/ L 4.0-10.0 H COUNT (BEAKER) (test code = 775) RED BLOOD CELL COUNT 2.76 M/ L 4.00-5.00 L Morphol ogy: 3+ (BEAKER) (test code = ANISOC YTOSIS; 3+ 761) POIKILOCYTOSIS; 2+ MACROCYTES; Few OVALOCYTES; 2+ SICKLE CELLS; 1+ Targe t Cells; and Few STOMATOCYTES se en on slide review. HEMOGLOBIN (BEAKER) 9.4 GM/DL 12.0-15.0 L (test code = 410) HEMATOCRIT (BEAKER) 29.1 % 36.0-45.0 L (test code = 411) MEAN CORPUSCULAR 105.3 fL 82.0-99.0 H VOLUME (BEAKER) (test code = 753) MEAN CORPUSCULAR 33.9 pg 27.0-33.0 H HEMOGLOBIN (BEAKER) (test code = 751) MEAN CORPUSCULAR 32.2 GM/DL 32.0-36.0 HEMOGLOBIN CONC (BEAKER) (test code = 752) RED CELL DISTRIBUTION 13.3 % 10.3-14.2 WIDTH (BEAKER) (test code = 412) PLATELET COUNT 687 K/CU MM 150-430 H (BEAKER) (test code = 756) MEAN PLATELET VOLUME 7.8 fL 6.5-10.5 (BEAKER) (test code = 754) NEUTROPHILS RELATIVE 56 % PERCENT (BEAKER) (test code = 429) LYMPHOCYTES RELATIVE 33 % PERCENT (BEAKER) (test code = 430) MONOCYTES RELATIVE 8 % PERCENT (BEAKER) (test code = 431) EOSINOPHILS RELATIVE 1 % PERCENT (BEAKER) (test code = 432) BASOPHILS RELATIVE 1 % PERCENT (BEAKER) (test code = 437) NEUTROPHILS ABSOLUTE 10.01 K/ L 1.80-8.00 H COUNT (BEAKER) (test code = 670) LYMPHOCYTES ABSOLUTE 5.89 K/ L 1.48-4.50 H COUNT (BEAKER) (test code = 414) MONOCYTES ABSOLUTE 1.44 K/ L 0.00-1.30 H COUNT (BEAKER) (test code = 415) EOSINOPHILS ABSOLUTE 0.25 K/ L 0.00-0.50 COUNT (BEAKER) (test code = 416) BASOPHILS ABSOLUTE 0.20 K/ L 0.00-0.20 COUNT (BEAKER) (test code = 417) COMPREHENSIVE METABOLIC [id number] 02:42:00 Test Item Value Reference Range Interpretation Comments TOTAL PROTEIN 9.0 gm/dL 6.0-8.5 H (BEAKER) (test code = 770) ALBUMIN (BEAKER) 4.9 g/dL 3.5-5.0 (test code = 1145) ALKALINE PHOSPHATASE 66 U/L 30-115 (BEAKER) (test code = 346) BILIRUBIN TOTAL 3.1 mg/dL 0.1-1.2 H (BEAKER) (test code = 377) SODIUM (BEAKER) (test 143 meq/L 135-148 code = 381) POTASSIUM (BEAKER) 3.8 meq/L 3.6-5.5 (test code = 379) CHLORIDE (BEAKER) 109 meq/L 98-106 H (test code = 382) CO2 (BEAKER) (test 26 meq/L 24-32 code = 355) BLOOD UREA NITROGEN 2 mg/dL 10-26 L (BEAKER) (test code = 354) CREATININE (BEAKER) 0.42 mg/dL 0.50-1.20 L (test code = 358) GLUCOSE RANDOM 104 mg/dL 70-110 (BiophytisAKER) (test code = 652) CALCIUM (BiophytisAKER) 9.5 mg/dL 8.5-10.5 (test code = 697) AST (SGOT) (BiophytisAKER) 25 U/L 5-40 (test code = 353) ALT (SGPT) (BiophytisAKER) 18 U/L 5-50 (test code = 347) EGFR (Talkable) (test 221 ESTIMATE D GFR IS code = 1092) mL/min/1.73 sq NOT ACCURA TE m CREATININE CLEARANCE IN PREDICTING GLOMERULAR FILTRATION RATE . ESTIMATED GFR I S NOT APPLICABLE FOR DIALYSIS PATIEN TS.
--- OUTSIDE RECORDS SUMMARY | 2019-11-13 00:25 | XMS REPORT | Continuity of Care Document ---
:1990 Author Organization [facility] Address [address] [place] [address] Care Team Providers Name Role Phone OTHER, NAME IN NOTES Primary Care Physician Unavailable Allergies, Adverse Reactions, Alerts Allergen Type Severity Reaction Last Verified Status Updated Sulfabenzamide Allergy Severe July 16, Yes Acti ve ([id number]) 2018 Morphine Allergy Moderate ITCHING September 17, Yes Active ([id number]) 2019 Sulfacetamide Allergy Severe July 16, Yes Activ e ([id number]) 2018 Sulfathiazole Allergy Severe July 16, Yes Activ e ([id number]) 2018 Urea ([id number]) Allergy Severe July 16, Yes Active 2018 Ondansetron Allergy Severe August 11, Yes Active ([id number]) 2014 Medications Medication Status Dose Units Route Sig Qty Days Start End Instruct ions Date Date Folic Acid Active 1 ORAL Daily 90 Hydromorphone Active 8 ORAL Every 6 Hcl Hours As Needed Acetamin/Codei Discontinu 1 ORAL Every 6 09 December Dece mbe ne 300/30 Mg * ed Hours 9th, r 26th, As 2017 2017 Needed 1:59pm for Pain Acetaminophen Discontinu 650 ORAL Every 14 March Calixto bruna ed 4-6 16th, 27th, Hours 2013 2014 As 12:10pm Needed as needed for Pain Scale 1-3 Acetaminophen Discontinu 1 ORAL Every 4 September W/ Codeine #3 ed Hrs As 13, 31, * Needed 2014 2014 as 11:57am needed for Pain Scale 3-7 Acetaminophen Discontinu 1 ORAL Every 4 August W/ Codeine #3 ed Hrs As 4th, 8th, * Needed 2014 2014 12:36pm Alprazolam Discontinu 1 ORAL Twice A 60 e ed Day r , 2018 Amoxicillin/Cl Discontinu 1 ORAL Twice A 14 June F ebruar avulanate ed Day for 8th, y 21st, Potassium Leukocy 2016 2017 tosis 12:21pm Amoxicillin/Cl Discontinu 1 ORAL Twice A 26 May Ma y avulanate ed Day 2nd, 3rd, Potassium 2016 2015 12:12pm Apixaban Discontinu 2.5 ORAL Twice A 60 09 October ed Day 2019 Apixaban Discontinu 5 ORAL Twice A 60 March ed Day for 29, 26th, Pulmona 2017 2018 ry 1:40am Embolis m Benzonatate Discontinu 100 ORAL Every 6 April ed Hours 13, 26, As 2012 2013 Needed 2:09pm as needed for Cough Cefdinir Discontinu 300 ORAL Twice A 20 November ed Day for 4th, 8th, Bronchi 2018 2019 tis 10:40am Cefdinir Discontinu 1 ORAL Twice A 10 August ed Day for 30, , Bronchi 2018 2018 tis 11:32am Cefdinir Discontinu 1 ORAL Twice A 23 November [facility] ed Day for 9, r 26, Uti 2017 2017 1:59pm Cefdinir Discontinu 1 ORAL Twice A 20 22 March [facility] ed Day for 29, r 26, Uri 2017 2017 1:40am Cefdinir Discontinu 1 ORAL Twice A July ed Day for 3rd, 6th, Infecti 2016 2018 on 1:16pm Cefdinir Discontinu 300 ORAL Every 21 April Februar ed 12 28th, y 21st, Hours 2015 2017 for 10:42am Pharyng itis Cefdinir Discontinu 300 ORAL Every July ed 12 3rd, 26th, Hours 2013 2013 12:08pm Cefdinir Discontinu 300 ORAL Every April ed 12 13th, 3rd, Hours 2012 2013 2:09pm Dextromethorph Discontinu 1 ORAL Every 22 March Dec embe an-Guaifenesin ed 12 5th, r 23rd, * Hours 2014 2014 As 10:09am Needed Fluconazole Discontinu 1 ORAL For One March Dece e ed Dose 30, r 26th, Only 2017 2018 for 4:37pm Candidi asis Folic Acid Discontinu 2 ORAL Daily 11 April Decembe ed 19, r , 2015 2017 12:28pm Folic Acid Discontinu 2 ORAL Daily Novembe ed r , 2015 Folic Acid Discontinu 1 ORAL Once April ed Daily , , 2012 2015 2:09pm Hydrocodone-Ac Discontinu 1 ORAL Every 6 30 October Octo anirudh etaminophen ed Hours 14, , 10/325MG* As 2013 2013 Needed 1:21pm Hydromorphone Discontinu 1 ORAL Every 4 60 November Hcl ed Hours 6th, As 2017 Needed as needed for Ad Hydromorphone Discontinu 1 ORAL Three 60 December Februa r Hcl ed Times , y 27, Daily 2014 2015 As 12:26pm Needed Levofloxacin Discontinu 1 ORAL Daily 10 Dece be ed r 30, r , 2015 2015 12:15pm Levofloxacin Discontinu 500 ORAL Once 19 March Dece be ed Daily , r , 2014 2014 10:09am Levofloxacin Discontinu 500 ORAL Daily August ed , , 2014 2014 12:36pm Levofloxacin Discontinu 500 ORAL Daily 10 Octob er ed r , , 2013 2013 4:04pm Levofloxacin Discontinu 500 ORAL Daily October ed 14, , 2013 2013 1:21pm Pantoprazole Discontinu 40 ORAL Daily 11 April Janua ry Sodium ed 16, , 2013 2014 12:10pm Penicillin V Discontinu 250 ORAL Every Decembe Potassium ed 12 r 28th, Hours 2015 Penicillin V Discontinu 1 ORAL Twice A 40 Octobe r Potassium ed Day 2014 Rivaroxaban Discontinu 1 ORAL Daily 09 December ed 2017 Rivaroxaban Discontinu July ed 2017 Problems Active Problems Medical Problem Onset Date Status [id number] Active [id number] Active Leukocytosis Active Sickle cell pain crisis Active Aphthous ulcer Active Pharyngitis Resolved Sickle cell pain crisis Active Sickle cell pain crisis Active Sickle cell pain crisis Active Acute bronchitis Active Chest pain Active Sickle cell pain crisis Active UTI (urinary tract infection) Active Pneumonia Active Sickle cell pain crisis Active Cannabis abuse Active Abdominal pain Active Constipation Active Sickle cell anemia Active Generalized pain Active Sickle cell pain crisis Active Chest pain Active Sickle cell pain crisis Active Sickle cell pain crisis Active Sickle cell pain crisis Active Sickle cell anemia Active Body aches Active Generalized pain Active Sickle cell pain crisis Active Anemia Active Elevated bilirubin Active Sickle cell pain crisis Active Asthma Active Sickle cell pain crisis Active Bronchitis Active Sickle cell anemia with crisis Active Hypokalemia Active Leucocytosis Active Homozygous sickle cell (SS) Active disease Acute streptococcal pharyngitis Active Pneumonia involving right lung Active Extremity pain Active Dehydration Active DVT prophylaxis Active Sickle cell disease Active Hypotension Resolved Bacteremia Active Itching Resolved UTI (urinary tract infection) Active Fever Active Cough Active Acute chest syndrome Active Right lower lobe pneumonia Active Respiratory infection Active Inactive/Resolved Problems Medical Problem Onset Date Status Upper respiratory infection Resolved Pulmonary embolism Resolved Procedures Procedure Date Performed Status X-ray of chest, single view September 18, 2019 completed X-ray of chest, single view September 23, 2019 completed Relevant Diagnostic Tests and/or Laboratory Data Laboratory Results Test Date/Time Result Interpretation Reference Result Perfo rming Range Comment Site White Blood September 20, 13.7 4.0-11.5 [facility], [address] [place] [address] X [address] 4:45am Red Blood September 20, 2.72 3.80-5.20 [facility], [address] [place] [address] X 24042 4:45am Hemoglobin September 20, 9.0 10.5-15.7 [facility], [address] [place] [address] X 50750 4:45am Hematocrit September 20, 25.3 34.0-50.0 [facility], [address] [place] [address] X 45516 4:45am Mean September 20, 93.0 86-100 [facility], 104 [facility] Corpuscular [address] [place] [address] Volume 4:45am Mean September 20, 33.1 26.2-33.4 [facility], 104 [facility] Corpuscular [address] [place] [address]92 Hemoglobin 4:45am Mean September 20, 35.6 30-34 [facility], 104 [facility] Corpuscular [address] [place] [address] Hemoglobin 4:45am Concent Red Cell September 20, 18.2 12.0-15.5 [facility], 104 [facility] Distribution [address] [place] [address] [place] [address] Width 4:45am Platelet September 20, 356 165-450 [facility], [address] [place] [address] X 17768 4:45am Absolute September 19, 27.4 [facility], [address] Immature 2019 [facility] X 28924 Platelet 4:03am Fraction Immature September 19, 12.3 0-8 [facility], [address] Platelet 2019 [facility] X 26827 Fraction 4:03am Mean Platelet September 20, 10.5 9.4-12.6 [facility], [address] Volume 2019 [facility] X 47643 4:45am Neutrophils September 20, 53.6 44.4-80.1 [facility], [address] (%) (Auto) 2019 [place] [id number] 4:45am Immature September 20, 0.4 0.0-0.4 [facility], [address] Granulocyte % 2019 [place] [address] (Auto) 4:45am Lymphocytes September 20, 30.5 10.0-50.0 [facility], [address] (%) (Auto) 2019 [place] [address] 4:45am Monocytes (%) September 20, 12.3 3.6-12.0 [facility], [address] (Auto) [address] [place] [address] X [address] 4:45am Eosinophils September 20, 2.3 0.0-5.4 [facility], [address] (%) (Auto) [address] [place], [place] [address] 4:45am Basophils (%) September 20, 0.9 0.1-1.2 [facility], [address] [facility] [address] (Auto) [address] [place] [address] X 27[address] 4:45am Neutrophils # September 20, 7.35 1.56-6.13 [facility], [address] (Auto) [address] [place] [address] X 69153 4:45am Absolute September 20, 0.1 0.0-0.03 [facility], [address] Immature 2019 [facility] X 77173 Granulocyte 4:45am (auto Lymphocytes # September 20, 4.2 1.18-3.74 [facility], [address] [facility] [address] (Auto) [address] [place] [address] X 83319 4:45am Monocytes # September 20, 1.69 0.24-0.86 [facility], [address] (Auto) [address] [place] [address] X 15034 4:45am Eosinophils # September 20, 0.31 0.04-0.36 [facility], [address] [facility] [address] (Auto) [address] [place] [address] X 14774 4:45am Basophils # September 20, 0.13 0.01-0.08 [facility], [address] (Auto) 2020 [facility] X 33737 4:45am Neutrophils September 18, 48 37.0-80.0 [facility], [address] 2020 [facility] X 90791 7:09am Band September 18, 1 0-3 [facility], [address] Neutrophils 2019 [facility] 39457 7:09am Lymphocytes September 18, 42 10-50 [facility], 10 4 [address] (Manual) 2020 [facility] X 81606 7:09am Monocytes September 18, 8 0-12 [facility], [address] (Manual) 2020 [facility] X 57421 7:09am Eosinophils September 18, 1 0-7 [facility], 10 4 [facility] (Manual) 2020 [facility] X 26959 7:09am Nucleated Red September 18, 2 0 [facility], [address] Blood Cells 2019 [facility] 33859 7:09am Nucleated Red September 20, 1 0-0.2 [facility], [address] Blood Cells % 2019 [facility] 68412 4:45am Nucleated Red September 20, 0 0 [facility], [address] Blood Cells # 2020 [facility] 51304 4:45am N/A September 17, 2+ NORMAL [facility], 104 2019 [place] [address] 1:24pm September 17, 1+ SICKLE NORMAL [facility], [address] 2020 CELLS RBC. [facility] 69408 1:24pm September 17, 1+ OVALOCYTES NORMAL [facility], [address] 2019 RBC. [facility] X 99560 1:24pm September 17, FEW TARGET NORMAL [facility], [address] 2020 CELLS RBC. [facility] X 87488 1:24pm September 17, FEW LARGE NORMAL [facility], [address] 2019 PLATELETS RBC. [facility] X 48022 1:24pm Differential September 18, [facility], [address] Comment 2019 [facility] X 97357 7:09am Platelet September 18, ADEQUATE [facility], [address] Estimate 2020 [facility] X 91344 7:09am Abnormal September 18, NORMAL [facility], [address] Platelet 2019 [facility] [address] Morphology 7:09am Hypochromasia September 18, [facility], 104 2019 [facility] X 42035 7:09am Poikilocytosi September 18, CALLED [facility], 104 2019 ();[place] [address] 7:09am RESULTS BROADCASTED TO (LOCATION) BY () Anisocytosis September 18, [facility], 1 04 2019 [facility] X 11622 7:09am Schistocytes September 18, [facility], 1 04 2019 [facility] X 66050 7:09am Target Cells September 18, [facility], 1 04 [place] [address] 7:09am Sickle Cells September 18, [facility], 1 04 2019 [place] [address] 7:09am Prothrombin September 17, 10.3-12.3 THERAPEUTIC [facility], 104 2019 LEVEL: 1.5 [facility] [address] 1:24pm to 1.9 times normal range of PT Prothromb September 17, Recommended [facility], 10 4 2019 therapeutic [facility] [address] International 1:24pm range for Ratio patients receiving warfarin (coumadin) therapy: INR is 2.0 to 3.0Recommende d range for patients with mechanical prosthetic heart valves: INR is 2.5 to 3.5 Activated September 17, 22.5-37.0 [facility], 104 Partial 2019 [place] [address] Thromboplast 1:24pm Time Urine Color September 17, [facility], 10 4 2019 [facility] X 88073 12:56pm Urine September 17, CLEAR [facility], 104 Appearance 2019 [place] [address] 12:56pm Urine Glucose September 17, NEGATIVE [facility], 104 (UA) 2019 [place] [address] 12:56pm Urine September 17, NEGATIVE [facility], 104 Bilirubin 2019 [place] [address] 12:56pm Urine Ketones September 17, NEGATIVE [facility], 104 2019 [facility] X 95502 12:56pm Urine September 17, 1.003-1.03 [facility], 104 Specific 2019 0 [place] [address] [place] 12:56pm Urine Blood September 17, NEGATIVE [facility], 10 4 2019 [facility] X 62197 12:56pm Urine pH September 17, 5-9 [facility], [address] [place] [address] X 71099 12:56pm Urine Protein September 17, NEGATIVE [facility], [address] [place] [address] T X 31553 12:56pm Urine September 17, 0.2-1.0 [facility], 104 [facility] Urobilinogen [address] [place] [address] 12:56pm Urine Nitrate September 17, NEGATIVE [facility], 104 2019 [place] X [address] 12:56pm Urine September 17, NEGATIVE [facility], 104 [facility] Leukocyte [address] [place] [address] X 408[address] Esterase 12:56pm Urine RBC September 17, 0-5 [facility], [address] [place] [address] X 19492 12:56pm Urine WBC September 17, 0-5 [facility], [address] [place] [address] X 76062 12:56pm Urine September 17, 0-5 [facility], 104 [facility] Epithelial 2019 [place] [address] Cells 12:56pm Urine September 17, None [facility], 104 Bacteria 2019 Detect [facility] X 37979 12:56pm Urine Casts September 17, None [facility], 10 4 2019 Detect [facility] X 05954 12:56pm Urine Culture September 17, [facility], 104 [facility] Reflexed [address] [place] [address] X 91896 12:56pm Random September 19, 74-106 [facility], 104 [facility] Glucose [address] [place] [address] X 57514 4:03am Blood Urea September 19, 6-20 [facility], 104 Nitrogen 2019 [facility] X 84112 4:03am Serum September 19, 280-300 [facility], 104 [facility] Osmolality 2019 [place] [address] 4:03am Creatinine September 19, 0.50-0.90 TEST RESULT [facility], [address] [place] [address] 4:03am DUE TO ICTERIC SPECIMEN. Glomerular September 19, GFR RESULTS [facility], Filtration 2019 [place] [address] Rate Calc 4:03am IN mL/min/1.73m2 .Normal GFR: >60mL/minMode rately decreased GFR: 30-59 mL/minSeverel y decreased GFR: 15-29 mL/minKidney Failure (or Dialysis): <15 mL/minThe calculated eGFR is not valid for patients younger than 18 years or older than 75 years. BUN/Creatinin September 19, 12- [facility], 104 e Ratio 2019 [facility] X 03470 4:03am Sodium Level September 19, 135-145 [facility], [address] X [address] 4:03am Potassium September 19, 3.5-5.2 [facility], [address] [place] [address] X 19134 4:03am Chloride September 19, 98-108 [facility], 104 [facility] Level [address] [place] [address] X 44595 4:03am Carbon September 19, 21-32 [facility], 104 [facility] Dioxide Level 2020 [place] [address] 4:03am Anion Gap September 19, 12- [facility], [address] X [address] 4:03am Calcium Level September 19, 8.6-10.0 [facility], [address] X [address] 4:03am Total Protein September 17, 6.6-8.7 [facility], [address] X [address] 1:24pm Albumin September 17, 3.5-5.2 [facility], [address] X [address] 1:24pm Globulin September 17, [facility], [address] [place] [address] X [address]9849 1:24pm Albumin/Globu September 17, >1.0 [facility], 104 [facility] william Ratio 2019 [facility] X 04819 1:24pm Total September 17, 0.0-1.2 [facility], 104 [facility] Bilirubin [address] [place] [address] X 96569 1:24pm Aspartate September 17, 15-32 [facility], 104 [facility] Amino Transf [address] [place] [address] (AST/SGOT) 1:24pm Alanine September 8th, 0-33 [facility], 104 [facility] Aminotransfer [address] [place] [address] ase 1:24pm (ALT/SGPT) Total September 17, 35-105 [facility], 104 [facility] Alkaline [address] [place] [address] X 79203 Phosphatase 1:24pm Diagnostic Imaging Reports Report Dictated Date/Time Dictated By Status September 18, 2019 3:16pm TONYA CHRISTIANSON MD completed Patient: GUME ORTEGA MMR#: [id number] : [address] AMY ALONZO JR, MD Pt Status: REG ER Pt Location: ER Date/Time: 09/18/19 1422 Primary Care Physician: TITA OTHER Technologist(s): DEMETRICE GONZALES Procedure(s): [id number] RAD/CHEST 1 VIEW Signed EXAMINATION: CHEST 1 VIEW. INDICATION: 29-year-old female with shor tness of breath. History of sickle cell anemia. COMPARISON: Chest radiograph dated 019. FINDINGS: Mild cardiomegaly; a left IJ approach ce ntral venous port is noted with tip in the right atrium. Slightly increased int erstitial markings bilaterally. No evidence of consolidation. No pleural ef fusion. No pneumothorax. No acute osseous abnormality. Visualized soft tis sues are unremarkable. IMPRESSION: Mild cardiomegaly with slightly increase d interstitial markings bilaterally. Findings are nonspecific but can be seen in the setting of acute chest syndrome in a patient with sickle cell anemia. Signed by: Tonya Christianson MD on 09/18/2019 3:16 PM Transcribed By: [employer] SIGNED <electronically signed by TONYA CHRISTIANSON MD> [id number] TONYA CHRISTIANSON MD September 21, 2019 11:04pm MATHIEU BLOUNT MD Patient: GUME ORTEGA MMR#: [id number] : 1990 Pt Location: [facility] Date/Time: 09/18/19 Primary Care Physician: TITA OTHER Signed [facility] Test Date: 2019-09-18 Pat Name: GUME Grimaldo epartment: KANU R oom: 224 M Gender: Female T echnician: TG : 1990 R equested By: MD SHIN Order Number: [id number] Tino alexandra MD: Mathieu Blount M.D. F.A.A.C Measurements Intervals A xis Rate: 67 P : -12 MA: 130 Q RS: 62 QRSD: 93 T : 58 QT: 412 QTc: 435 Interpretive Statements Sinus rhythm Electronically Signed On 09-21-2019 23:04 :31 CDT by [place].[facility] Transcribed By: [employer] SIGNED <electronically signed by MATHIEU BLOUNT MD> 03 03 MATHIEU BLOUNT MD Health Concerns Health Concerns may be documented in an alternate section. Advance Directives Advance Directive Response Recorded Date/Time Advance Directives No January 29, 2016 12:37pm Advance Directive on File No September 18, 2019 5:40pm Directive to Physicians/Living No January 29, 2016 12:37pm Will Health Care Proxy No January 29, 2016 12:37pm Organ Donor No January 29, 2016 12:37pm Medical Power of Malted Milk Supervisor No January 12:37pm Patient/Family Given Education No September 18, 2019 5:40pm Material R/T Directives? Chief Complaint and Reason for Visit Chief Complaint SICKLE CELL ANEMIA WITH NOLBERTO IS Reason for Visit Sickle cell pain crisis Anemia Sickle cell anemia with nolberto is Encounters Encounter Location(s) Arrival/Admit Date Discharge/Depart Date Provider(s) Discharged [place] September 18, 2019 September 23, 2019 3:38pm CLINTON DELEON, Inpatient (obs) [facility] 2:45pm AMY Castellanos MD Ctr Recent Diagnosis Onset Date Sickle cell pain crisis Anemia Sickle cell anemia with crisis Assessments Diagnosis Onset Date Resolution Status Sickle cell pain crisis Active Anemia Active Sickle cell anemia with Active crisis Functional Status No Functional Status information available Goals Acute Goals -OK TO DC IV AND DC HOME IF CXR IS NEGAT AYUSH -FOLLOW-UP WITH PCP IN 1-2 WEEKS -FOLLOW-UP WITH HEMATOLOGY TO DISCUSS TH E USE OF Crizanlizumab TO PREVENT SICKLE CELL PAIN CRISIS -RETURN TO THE ER IF SYMPTOMS WORSENS -CALL DR. MASON AT [phone] IF ANY QU ESTIONS REGARDING HOSPITAL STAY -PLEASE CALL THE FLOOR AT [phone] I F ANY MEDICATION OR NURSING QUESTIONS Immunizations No Immunization Information Available Mental Status No Mental Status Information Available Medical Equipment No Medical Equipment Information available Insurance Providers Guarantor Gume Ortega Address [address] [facility] [address] Contact Info. Home Phone: Payer Policy Id Coverage Id Subscriber's Subscriber Effective Expi ration Name Id Date Date [place] [id number] [place] [id number] [facility] Gume Cabrera [place] Plan of Treatment Oxbryta 1000mg po daily -to limit sickle cell pain crisis Future Tests Future scheduled test information is unavailable Pending Tests Pending diagnostic test information is unavailable Future Visits Future appointment information is unavailable Referrals to Other Providers Referral information is unavailable Future Procedures Future procedure information is unavailable Future Medications Future medication information is unavailable Patient Instructions Sickle Cell Anemia, Adult Social History Smoking Status Status Date of Observation Ex-smoker (finding) September 18, 2019 5:40pm Observation Status Observation Response Date of Response Hx Alcohol Use No September 18, 2019 6:15pm Hx Physical Abuse No September 18, 2019 6:15pm Assigned Sex Female Vital Signs Vital Reading Result Collection Date/Time Hospital Discharge Instructions Additional Instructions Instructions Physician Documentation [facility] follow up instructions * If you have any questions or concerns, please contact [phone] and ask for the hospitalist on duty. If you are having a medical emergency, please report to the nearest emergency room in your area. * Access your patient portal or follow up with your PCP regarding any procedures or tests that have not yet been resulted. Follow up with: PCP Follow up appointment in: 7 days Activity on discharge: as tolerated Diet on discharge: cardiac Condition on discharge: stable
[2019-11-13] MEDS ORDERED: NA CHLORIDE 0.9% 1,000 ML ONE ×2 (01:11→01:21)
[2019-11-13] MEDS ORDERED: MORPHINE 4 MG/ML SYR ONE (01:11)
[2019-11-13] MEDS ORDERED: PROMETHAZINE INJ 25 MG/ML AMP ONE (01:20)
[2019-11-13] MEDS ORDERED: FENTANYL CITR 100 MCG/2 ML ONE (01:21)
[2019-11-13 01:25] LABS: Absolute Lymphocytes (CBC) 6.7 K/uL (0.7-4.9); Basophils % 1.7 % (0-1.3); Hematocrit 22.5 % (36.0-45.0); Lymphocytes % 33.9 % (15.3-44.8); MPV 9.6 fL (7.6-11.3); RBC Red Blood Cell Count 2.28 M/uL (3.86-4.86)
[2019-11-13 01:40] LABS: ALT/SGPT 37 U/L (12-78); AST/SGOT 44 U/L (15-37); Albumin 3.9 g/dL (3.4-5.0); Alkaline Phosphatase 110 U/L (45-117); BUN Blood Urea Nitrogen 8 mg/dL (7-18); Bicarbonate 26 mmol/L (21-32); Bilirubin Direct 0.4 mg/dL (0-0.2); Bilirubin Total 2.5 mg/dL (0.2-1.0); Glucose Level 85 mg/dL (74-106); Lipase 70 U/L (73-393); Potassium 4.1 mmol/L (3.5-5.1); Protein, Total 7.3 g/dL (6.4-8.2); Sodium Level 141 mmol/L (136-145)
[2019-11-13] MEDS ORDERED: HYDROMORPHONE HCL 1 MG/ML INJ ONE (01:59)
[2019-11-13] MEDS ORDERED: DIPHENHYDRAMINE 50 MG/ML VIAL ONE ×2 (02:09→03:16)
[2019-11-13 02:11] LABS: Anisocytosis 1+; Blood Morphology Comment NOTED (NOT SEEN); Elliptocytes 2+; Hypochromasia 1+; Platelet Estimate ADEQ; Poikilocytosis 1+; Target Cells 1+; Urine White Blood Cell Casts OK
[2019-11-13] MEDS ORDERED: ACETAMINOPHEN 500 MG TAB PO PRN (02:35)
[2019-11-13] MEDS ORDERED: PROMETHAZINE 25 MG TABLET PO PRN (02:35)
--- NOTE | 2019-11-13 02:37 | ER ---
Nurse's Notes [facility] Name: Gume Ortega Age: 29 yrs Sex: Female : 1990 Arrival Date: 11/13/2019 Time: 00:25 Bed 2 Private MD: Diagnosis: Sickle-cell disorders-acute pain, elevated retic Presentation: 11/12 00:26 Chief complaint: EMS states: "The pt reported having a sickle cell crisis. she is jd3 reporting 10/10 pain all over. we tried 3 times for IV access with no success. we gave 50 mcg of Fentanyl X 2 internasal for pain and she is still reporting 10/10 pain. otherwise she has stable vitals and denies any COVID-19 symptoms.". Coronavirus screen: Proceed with normal triage. Ebola Screen: Patient negative for fever greater than or equal to 101.5 degrees Fahrenheit, and additional compatible Ebola Virus Disease symptoms. Initial Sepsis Screen: Does the patient meet any 2 criteria? No. Patient's initial sepsis screen is negative. Does the patient have a suspected source of infection? No. Patient's initial sepsis screen is negative. Risk Assessment: Do you want to hurt yourself or someone else? Patient reports no desire to harm self or others. Onset of symptoms was November 13, 2019. 00:26 Method Of Arrival: EMS: [facility] jd3 00:26 Acuity: MARILUZ 3 jd3 Triage Assessment: 03:40 General: Appears. jd3 03:41 General: Behavior is cooperative. Pain: Complains of pain in generalized. Neuro: Level rv of Consciousness is awake, alert, obeys commands, Oriented to person, place, time, situation. 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 - Social history:: Smoking status: Patient denies any tobacco usage or history of. Screenin:35 Abuse screen: Denies threats or abuse. Nutritional screening: No deficits noted. jd3 Tuberculosis screening: No symptoms or risk factors identified. Fall Risk Ambulatory Aid- None/Bed Rest/Nurse Assist (0 pts). Gait- Normal/Bed Rest/Wheelchair (0 pts) Mental Status- Oriented to own ability (0 pts). Total Jaime Fall Scale indicates No Risk (0-24 pts). Assessment: 02:00 Reassessment: Patient is alert, oriented x 3, equal unlabored respirations, skin rv warm/dry/pink. PATIENT IS STILL COMPLAINING OF GENERALIZED PAIN. Patient states symptoms have not improved. 02:00 Neuro: Level of Consciousness is awake, alert, obeys commands, Oriented to person, rv place, time, situation. Cardiovascular: Patient's skin is warm and dry. Rhythm is sinus rhythm. Respiratory: Airway is patent Respiratory effort is even, unlabored, Respiratory pattern is regular, symmetrical, Breath sounds are clear bilaterally. Vital Signs: 00:33 BP 107 / 80; Pulse 93; Resp 23 S; Temp 97.7(TE); Pulse Ox 95% on R/A; Weight 64.86 kg jd3 (R); Height 5 ft. 2 in. (157.48 cm) (R); Pain 10/10; 01:30 BP 130 / 95; Pulse 81; Resp 18; Pulse Ox 100% on 2 lpm NC; jd3 03:00 BP 137 / 34; Pulse 61; Resp 19; Pulse Ox 100% on 2 lpm NC; jd3 03:30 BP 100 / 52; Pulse 62; Resp 17; Temp 98; Pulse Ox 100% on 2 lpm NC; jd3 00:33 Body Mass Index 26.15 (64.86 kg, 157.48 cm) jd3 ED Course: 00:25 Patient arrived in ED. jd3 00:32 Triage completed. jd3 00:32 Mega Henry, SHYAM is Primary Nurse. rv 00:33 Accessed Port-a-Cath. using accessed w/ # 20 Peters needle, ,sterile technique, per hospital protocol. Good blood return. Flushes easily. 00:35 Arm band placed on. jd3 00:35 Patient has correct armband on for positive identification. Placed in gown. Bed in low jd3 position. Call light in reach. Side rails up X2. electronic device monitor on. Pulse ox on. NIBP on. 01:06 Gilbert Hassan MD is Attending Physician. tw4 02:36 Apolinar Castrejon MD is Hospitalizing Provider. snw 03:41 No provider procedures requiring assistance completed. IV is patent, with fluids rv infusing freely, with good blood return, Patient admitted, IV remains in place. Administered Medications: 01:03 CANCELLED (Other Intervention Used): morphine 5 mg IM once; RASS on ADMIN: Combtv4, snw Very Agttd3, Agttd2, Rstlss1, AlertClm0, Drwsy-1, Lt Sdtn-2, Mod Sdtn-3, Dp Sdtn-4, UnArsble-5 01:05 Drug: NS 0.9% 1000 ml Route: IV; Rate: 1 bolus; Site: Port-a-cath; mg2 03:37 Follow up: IV Status: Completed infusion; IV Intake: 1000ml rv 01:05 Drug: morphine 4 mg Route: IVP; Site: Port-a-cath; mg2 01:15 Follow up: Response: No adverse reaction; Marked relief of symptoms; Pain is unchanged, rv physician notified; RASS: Alert and Calm (0) 01:15 Drug: fentaNYL (PF) 50 mcg Route: IVP; Site: Port-a-cath; mg2 02:00 Follow up: Response: No adverse reaction; Pain is unchanged, physician notified; RASS: rv Alert and Calm (0) 01:15 Drug: Phenergan 25 mg Route: IVP; Site: Port-a-cath; mg2 03:38 Follow up: Response: No adverse reaction rv 01:24 Drug: NS 0.9% 1000 ml Route: IV; Rate: 1 bolus; Site: Port-a-cath; rv 03:38 Follow up: IV Status: Completed infusion; IV Intake: 1000ml rv 01:52 Drug: Dilaudid 1 mg {Note: rass 1.} Route: IVP; Site: Port-a-cath; rv 03:38 Follow up: Response: No adverse reaction; Marked relief of symptoms; Pain is decreased; rv RASS: Drowsy (-1) 02:00 Drug: Benadryl 25 mg Route: IVP; Site: Port-a-cath; rv 03:38 Follow up: Response: No adverse reaction rv 03:31 Drug: Benadryl 25 mg Route: IVP; Site: Port-a-cath; rv 03:39 Follow up: Response: Medication administered at discharge. rv Intake: 03:37 IV: 1000ml; Total: 1000ml. rv 03:38 IV: 1000ml; Total: 2000ml. rv Outcome: 02:37 Decision to Hospitalize by Provider. snw 03:41 Admitted to Med/surg accompanied by nurse, via wheelchair, room 206, on monitor, Report rv called to SATHYA HOWE 03:41 Condition: good 03:41 Instructed on the need for admit. 03:55 Patient left the ED. rv Signatures: Brooke Tinajero, HORACIO-C INVENTORY PLANNER-Csnw Gumaro Guzmán, RN RN jd3 Gilbert Hassan MD MD tw4 Mateusz Mccarthy RN RN mg2 Mega Henry RN RN rv
--- NOTE | 2019-11-13 02:37 | EDPHYS ---
Physician Documentation [facility] Name: Gume Ortega Age: 29 yrs Sex: Female : 1990 Arrival Date: 11/13/2019 Time: 00:25 Bed 2 Private MD: ED Physician Gilbert Hassan HPI: 11/12 03:18 This 29 yrs old Black Female presents to ER via EMS with complaints of Sickle Cell tw4 Crisis. 03:18 pain all over similar ot sickle cell crisis. Onset: The symptoms/episode began/occurred tw4 today. Severity of symptoms: At their worst the symptoms were moderate in the emergency department the symptoms are unchanged. The patient has not experienced similar symptoms in the past. 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 - Social history:: Smoking status: Patient denies any tobacco usage or history of. ROS: 03:18 Cardiovascular: Negative for chest pain, palpitations, and edema, Respiratory: Negative tw4 for shortness of breath, cough, wheezing, and pleuritic chest pain, Abdomen/GI: Negative for abdominal pain, nausea, vomiting, diarrhea, and constipation. 03:18 Skin: Negative for injury, rash, and discoloration, Neuro: Negative for headache, weakness, numbness, tingling, and seizure. 03:18 Constitutional: Positive for body aches, Negative for chills, fatigue, fever, malaise. 03:18 Abdomen/GI: Positive for 03:18 Back: Positive for pain at rest, Negative for injury or acute deformity, decreased range of motion, radiated pain, acute changes. 03:18 MS/extremity: Positive for pain, Negative for acute changes, decreased range of motion, deformity, ecchymosis. Exam: 03:18 Head/Face: Normocephalic, atraumatic. tw4 03:18 Chest/axilla: Normal chest wall appearance and motion. Nontender with no deformity. No lesions are appreciated. Cardiovascular: Regular rate and rhythm with a normal S1 and S2. No gallops, murmurs, or rubs. Normal PMI, no JVD. No pulse deficits. Respiratory: Lungs have equal breath sounds bilaterally, clear to auscultation and percussion. No rales, rhonchi or wheezes noted. No increased work of breathing, no retractions or nasal flaring. Abdomen/GI: Soft, non-tender, with normal bowel sounds. No distension or tympany. No guarding or rebound. No evidence of tenderness throughout. Back: No spinal tenderness. No costovertebral tenderness. Full range of motion. MS/ Extremity: Pulses equal, no cyanosis. Neurovascular intact. Full, normal range of motion. Neuro: Awake and alert, GCS 15, oriented to person, place, time, and situation. Cranial nerves II-XII grossly intact. Motor strength 5/5 in all extremities. Sensory grossly intact. Cerebellar exam normal. Normal gait. 03:18 Constitutional: The patient appears in obvious distress, moderately distressed. Vital Signs: 00:33 BP 107 / 80; Pulse 93; Resp 23 S; Temp 97.7(TE); Pulse Ox 95% on R/A; Weight 64.86 kg jd3 (R); Height 5 ft. 2 in. (157.48 cm) (R); Pain 10/10; 01:30 BP 130 / 95; Pulse 81; Resp 18; Pulse Ox 100% on 2 lpm NC; jd3 03:00 BP 137 / 34; Pulse 61; Resp 19; Pulse Ox 100% on 2 lpm NC; jd3 03:30 BP 100 / 52; Pulse 62; Resp 17; Temp 98; Pulse Ox 100% on 2 lpm NC; jd3 00:33 Body Mass Index 26.15 (64.86 kg, 157.48 cm) jd3 MDM: 01:28 Patient medically screened. tw4 03:19 Differential Diagnosis sepsis, flu, sickle cell crisis, myalgias, viral illness. Data tw4 reviewed: vital signs, nurses notes. Data reviewed: lab test result(s), CBC, electrolytes, hepatic panel. Data interpreted: Pulse oximetry: Interpretation: normal. Counseling: I had a detailed discussion with the patient and/or guardian regarding: the historical points, exam findings, and any diagnostic results supporting the discharge/admit diagnosis, lab results. Physician consultation: Apolinar Castrejon MD regarding admission, to the medical/surgical unit. patient's condition, and will see patient in ED. 11/12 01:07 Order name: Basic Metabolic Panel; Complete Time: 02:29 tw4 11/12 01:07 Order name: CBC with Diff; Complete Time: 02:29 tw4 11/12 01:07 Order name: Hepatic Function; Complete Time: 02:29 tw4 11/12 01:07 Order name: Lipase; Complete Time: 02:29 tw4 11/12 01:07 Order name: Retic Count; Complete Time: 02:29 tw4 11/12 02:11 Order name: CBC Smear Scan; Complete Time: 02:29 EDMS 11/12 02:39 Order name: CBC with Automated Diff EDMS 11/12 02:39 Order name: Comprehensive Metabolic Panel EDMS 11/12 02:39 Order name: Magnesium EDMS 11/12 02:39 Order name: Retic Count EDMS 11/12 00:56 Order name: Oxygen: 15L NRB; Complete Time: 01:17 snw 11/12 01:07 Order name: IV Saline Lock; Complete Time: 01:15 tw4 11/12 01:07 Order name: Labs collected and sent; Complete Time: 01:15 tw4 11/12 01:07 Order name: Oxygen: 2L NC; Complete Time: 01:15 tw4 11/12 02:37 Order name: CONS Pharmacy Consult EDGA 11/12 02:37 Order name: Regular EDMS Administered Medications: 01:03 CANCELLED (Other Intervention Used): morphine 5 mg IM once; RASS on ADMIN: Combtv4, snw Very Agttd3, Agttd2, Rstlss1, AlertClm0, Drwsy-1, Lt Sdtn-2, Mod Sdtn-3, Dp Sdtn-4, UnArsble-5 01:05 Drug: NS 0.9% 1000 ml Route: IV; Rate: 1 bolus; Site: Port-a-cath; mg2 03:37 Follow up: IV Status: Completed infusion; IV Intake: 1000ml rv 01:05 Drug: morphine 4 mg Route: IVP; Site: Port-a-cath; mg2 01:15 Follow up: Response: No adverse reaction; Marked relief of symptoms; Pain is unchanged, rv physician notified; RASS: Alert and Calm (0) 01:15 Drug: fentaNYL (PF) 50 mcg Route: IVP; Site: Port-a-cath; mg2 02:00 Follow up: Response: No adverse reaction; Pain is unchanged, physician notified; RASS: rv Alert and Calm (0) 01:15 Drug: Phenergan 25 mg Route: IVP; Site: Port-a-cath; mg2 03:38 Follow up: Response: No adverse reaction rv 01:24 Drug: NS 0.9% 1000 ml Route: IV; Rate: 1 bolus; Site: Port-a-cath; rv 03:38 Follow up: IV Status: Completed infusion; IV Intake: 1000ml rv 01:52 Drug: Dilaudid 1 mg {Note: rass 1.} Route: IVP; Site: Port-a-cath; rv 03:38 Follow up: Response: No adverse reaction; Marked relief of symptoms; Pain is decreased; rv RASS: Drowsy (-1) 02:00 Drug: Benadryl 25 mg Route: IVP; Site: Port-a-cath; rv 03:38 Follow up: Response: No adverse reaction rv 03:31 Drug: Benadryl 25 mg Route: IVP; Site: Port-a-cath; rv 03:39 Follow up: Response: Medication administered at discharge. rv Disposition: 11/13/19 02:37 Hospitalization ordered by Apolinar Castrejon for Observation. Preliminary diagnosis is Sickle-cell disorders - acute pain, elevated retic. - Bed requested for Telemetry/MedSurg (observation). - Status is Observation. rv - Condition is Stable. - Problem is chronic. - Symptoms have worsened. Signatures: Dispatcher [employer] EDMS Brooke Tinajero FNP-C WILDLIFE VETERINARIAN-Csnw Wendy Bar RN RN tl1 Gumaro Guzmán RN RN jd3 Gilbert Hassan MD MD tw4 Mateusz Mccarthy RN RN mg2 Mega Henry RN RN rv Corrections: (The following items were deleted from the chart) 01:03 00:55 morphine 5 mg IM once; RASS on ADMIN: Combtv4, Very Agttd3, Agttd2, Rstlss1, snw AlertClm0, Drwsy-1, Lt Sdtn-2, Mod Sdtn-3, Dp Sdtn-4, UnArsble-5 ordered. snw 02:42 02:37 Hospitalization Ordered by Apolinar Castrejon MD for Observation. Preliminary tl1 diagnosis is Sickle-cell disorders - acute pain, elevated retic. Bed requested for Telemetry/MedSurg (observation). Status is Observation. Condition is Stable. Problem is chronic. Symptoms have worsened. snw 03:55 02:42 11/13/2019 02:37 Hospitalization Ordered by Apolinar Castrejon MD for Observation. rv Preliminary diagnosis is Sickle-cell disorders - acute pain, elevated retic. Bed requested for Telemetry/MedSurg (observation). Status is Observation. Condition is Stable. Problem is chronic. Symptoms have worsened. tl1
[2019-11-13 04:13] VITALS: BMI 28.0
[2019-11-13] MEDS: HYDROMORPHONE HCL 2 MG/ML inj IV PRN ×5 (04:32→22:03)
[2019-11-13] MEDS: NA CHLORIDE 0.9% 1,000 ML IV SCH ×3 (04:33→14:23)
[2019-11-13 06:06] LABS: Absolute Lymphocytes (CBC) 7.2 K/uL (0.7-4.9); Basophils % 1.5 % (0-1.3); Lymphocytes % 37.7 % (15.3-44.8); MPV 8.7 fL (7.6-11.3); RBC Red Blood Cell Count 2.04 M/uL (3.86-4.86)
[2019-11-13 06:21] LABS: ALT/SGPT 30 U/L (12-78); Albumin 3.7 g/dL (3.4-5.0); Alkaline Phosphatase 99 U/L (45-117); BUN Blood Urea Nitrogen 8 mg/dL (7-18); Bicarbonate 25 mmol/L (21-32); Bilirubin Total 2.7 mg/dL (0.2-1.0); Glucose Level 91 mg/dL (74-106); Protein, Total 6.6 g/dL (6.4-8.2); Sodium Level 144 mmol/L (136-145)
[2019-11-13 06:24] LABS: AST/SGOT 41 U/L (15-37); Potassium 3.9 mmol/L (3.5-5.1)
[2019-11-13 07:06] LABS: Hematocrit 20.1 % (36.0-45.0)
[2019-11-13] MEDS: DIPHENHYDRAMINE 50 MG/ML VIAL IV PRN ×2 (08:17→18:19)
[2019-11-13] MEDS: FOLIC ACID 1 MG TABLET PO SCH (08:18)
[2019-11-13] MEDS: APIXABAN 2.5 MG TABLET PO SCH ×2 (08:18→21:42)
--- NOTE | 2019-11-13 09:22 | P.HP ---
Certification for Inpatient Patient admitted to: Inpatient With expected LOS: >2 Midnights Patient will require the following post-hospital care: None Practitioner: I am a practitioner with admitting privileges, knowledge of patient current condition, hospital course, and medical plan of care. Services: Services provided to patient in accordance with Admission requirements found in Title 42 Section 412.3 of the Code of Federal Regulations Patient History Date of Service: 11/13/19 Reason for admission: Sickle cell pain crisis History of Present Illness: Patient is a 21-year-old female well known to me who admits to the hospital with sickle cell pain crisis. Patient has a history of sickle cell. Patient gets admitted to the hospital about 3 to 4 times a year for flare ups. She is on chronic pain medications at home. She came to the hospital for further evaluation. In the emergency room her reticulocyte count was elevated. Patient was having severe pain. Decision was made to admit the patient to the hospital for further evaluation. Allergies ondansetron HCl [From Zofran] Allergy (Mild, Verified 08/02/12 16:51) Nausea/Vomiting ondansetron [From Zofran (as hydrochloride)] Allergy (Verified 09/17/16 02:07) Unknown Zofran (a Allergy (Uncoded 11/25/16 06:30) Unknown Zofran (as hyd Allergy (Uncoded 11/02/16 22:57) Unknown Home Medications: Folic Acid [Folic Acid*] 1 mg PO DAILY 08/01/12 Apixaban [Eliquis *] 1 tab PO BID 08/12/18 Hydromorphone [Dilaudid*] 8 mg PO Q6HR PRN 08/12/18 Promethazine HCl 1 tab PO PRN 11/13/19 - Past Medical/Surgical History Has patient received pneumonia vaccine in the past: No Diabetic: No -: sickle cell -: pneumonia -: port-a-cath placement - Family History Mother Medical History: Other (see notes) Notes: sickle cell trait Father Medical History: Other (see notes) Notes: sickle cell trait - Social History Smoking Status: Current some day smoker Alcohol use: Yes CD- Drugs: Yes Caffeine use: Yes Place of Residence: Home Review of Systems 10-point ROS is otherwise unremarkable Physical Examination - Vital Signs Temperature: 98.2 F Blood Pressure: 103/49 Pulse: 65 Respirations: 16 Pulse Ox (%): 93 - Physical Exam General: Alert, In no apparent distress, Oriented x3 HEENT: Atraumatic, PERRLA, Mucous membr. moist/pink, EOMI, Sclerae nonicteric Neck: Supple, 2+ carotid pulse no bruit, No LAD, Without JVD or thyroid abnormality Respiratory: Clear to auscultation bilaterally, Normal air movement Cardiovascular: Regular rate/rhythm, Normal S1 S2, No murmurs Gastrointestinal: Normal bowel sounds, Soft and benign, Non-distended, Tenderness Musculoskeletal: No clubbing, No swelling, Tenderness Integumentary: Tenderness/swelling Neurological: Normal gait, Normal speech, Normal strength at 5/5 x4 extr, Normal tone, Cranial nerves 3-12 intact, Normal affect Lymphatics: No axilla or inguinal lymphadenopathy - Studies Laboratory Data (last 24 hrs) 11/13/19 00:55: WBC 19.7 H, Hgb 8.2 L, Hct 22.5 L, Plt Count 435 H 11/13/19 00:55: Sodium 141, Potassium 4.1, BUN 8, Creatinine 0.55, Glucose 85, Total Bilirubin 2.5 H, AST 44 H, ALT 37, Alkaline Phosphatase 110, Lipase 70 L Assessment & Plan - Problems (Diagnosis) (1) Sickle cell pain crisis Current Visit: Yes Status: Acute - Plan Plan: 1. Continue with pain medication 2. Gentle hydration 3. Folic acid 4. Anti emetics 5. Monitor labs closely including retic count and hemoglobin 6. Monitor H&H closely 7. Type and screen for 2 units 8. GI and DVT prophylaxis Discharge Plan: Home Plan to discharge in: Greater than 2 days - Advance Directives Does patient have a Living Will: No Does patient have a Durable POA for Healthcare: No - Code Status/Comfort Care Code Status Assessed: Yes Code Status: Full Code Critical Care: No Time Spent Managing PTS Care (In Minutes): 45
[2019-11-13 11:23] LABS: Absolute Lymphocytes (CBC) 6.5 K/uL (0.7-4.9); Basophils % 0.5 % (0-1.3); Lymphocytes % 41.2 % (15.3-44.8); MPV 8.9 fL (7.6-11.3); RBC Red Blood Cell Count 1.87 M/uL (3.86-4.86)
[2019-11-13 11:52] LABS: Hematocrit 18.2 % (36.0-45.0)
[2019-11-13 12:41] LABS: Anisocytosis 2+; Blood Morphology Comment NOTED (NOT SEEN); Hypochromasia 1+; Poikilocytosis 1+; Polychromasia 1+; Urine White Blood Cell Casts OK
[2019-11-13 12:42] LABS: Platelet Estimate ADEQ
[2019-11-13] MEDS ORDERED: NA CHLORIDE 0.9% 250 ML ONE (21:08)
[2019-11-14] MEDS: NA CHLORIDE 0.9% 1,000 ML IV SCH ×3 (00:14→17:38)
[2019-11-14] MEDS: DIPHENHYDRAMINE 50 MG/ML VIAL IV PRN ×5 (00:14→22:18)
[2019-11-14] MEDS: HYDROMORPHONE HCL 2 MG/ML inj IV PRN ×6 (02:06→21:16)
[2019-11-14] MEDS: FOLIC ACID 1 MG TABLET PO SCH (09:08)
[2019-11-14] MEDS: APIXABAN 2.5 MG TABLET PO SCH ×2 (09:08→20:15)
--- NOTE | 2019-11-14 10:09 | P.PN ---
Subjective Date of Service: 11/14/19 Subjective: No new changes, No C/O voiced, Improving Review of Systems 10-point ROS is otherwise unremarkable Physical Examination - Vital Signs Temperature: 97.3 F Blood Pressure: 105/52 Pulse: 64 Respirations: 17 Pulse Ox (%): 99 - Physical Exam General: Alert, In no apparent distress, Oriented x3 Respiratory: Clear to auscultation bilaterally, Normal air movement Cardiovascular: Regular rate/rhythm, Normal S1 S2 Gastrointestinal: Normal bowel sounds, No tenderness Musculoskeletal: No tenderness Integumentary: No rashes Neurological: Normal speech, Normal tone, Normal affect Lymphatics: No axilla or inguinal lymphadenopathy - Studies Medications List Reviewed: Yes Assessment & Plan - Problems (Diagnosis) (1) Sickle cell pain crisis Current Visit: Yes Status: Acute - Plan Plan: 1. Continue with pain medication 2. Gentle hydration 3. Folic acid 4. Anti emetics 5. Monitor labs closely including retic count and hemoglobin 6. Monitor H&H closely 7. Transfuse 2 units of PRBCs 8. GI and DVT prophylaxis Discharge Plan: Home Plan to discharge in: 48 Hours - Advance Directives Does patient have a Living Will: No Does patient have a Durable POA for Healthcare: No - Code Status/Comfort Care Code Status: Full Code Critical Care: No Time Spent Managing PTS Care (In Minutes): 30
[2019-11-14] MEDS ORDERED: HYDROCORTISONE SUC 100 MG INJ IV ONE (11:00)
[2019-11-14] MEDS: hydrOXYzine HCL 25 MG TAB PO PRN (20:15)
[2019-11-15] MEDS ORDERED: NA CHLORIDE 0.9% 1,000 ML IV SCH (01:00)
[2019-11-15] MEDS: HYDROMORPHONE HCL 2 MG/ML inj IV PRN ×2 (01:22→05:15)
[2019-11-15 02:38] VITALS: O2SAT 98
[2019-11-15] MEDS: DIPHENHYDRAMINE 50 MG/ML VIAL IV PRN (04:04)
[2019-11-15] MEDS: NA CHLORIDE 0.9% 1,000 ML IV SCH ×2 (04:59→08:17)
[2019-11-15 06:23] LABS: Absolute Lymphocytes (CBC) 5.7 K/uL (0.7-4.9); Basophils % 0.9 % (0-1.3); Hematocrit 22.3 % (36.0-45.0); Lymphocytes % 41.7 % (15.3-44.8); MPV 9.2 fL (7.6-11.3); RBC Red Blood Cell Count 2.36 M/uL (3.86-4.86)
[2019-11-15 06:26] LABS: ALT/SGPT 112 U/L (12-78); AST/SGOT 154 U/L (15-37); Albumin 3.2 g/dL (3.4-5.0); Alkaline Phosphatase 114 U/L (45-117); BUN Blood Urea Nitrogen 9 mg/dL (7-18); Bicarbonate 27 mmol/L (21-32); Bilirubin Total 2.6 mg/dL (0.2-1.0); Glucose Level 90 mg/dL (74-106); Potassium 3.9 mmol/L (3.5-5.1); Sodium Level 140 mmol/L (136-145)
[2019-11-15] MEDS ORDERED: HYDROMORPHONE HCL 1 MG/ML INJ IV PRN (07:35)
[2019-11-15] MEDS ORDERED: HYDROCORTISONE SUC 100 MG INJ IV ONE (08:00)
[2019-11-15] MEDS ORDERED: HYDROMORPHONE ORAL 4 MG TAB PO PRN (08:00)
[2019-11-15] MEDS: APIXABAN 2.5 MG TABLET PO SCH (08:14)
[2019-11-15] MEDS: FOLIC ACID 1 MG TABLET PO SCH (08:14)
[2019-11-15 09:09] VITALS: BP 112/53; TEMP 97.1
[2019-11-15] MEDS: hydrOXYzine HCL 25 MG TAB PO PRN (09:28)
[2019-11-15] MEDS ORDERED: HEPARIN 500 UNIT/5 ML SYR IV PRN (10:41)
== END 2019-11-15 11:40 | disposition home or self-care (01) | DRG 812 ==
LOC: ER 00:18 → 2ND 03:42
PROVIDERS: ADMIT Hospitalist; ATTEND Hospitalist
PROC: 30233N1 Transfusion of Nonautologous Red Blood Cells into Peripheral Vein, Percutaneous Approach (ICD-10-PCS; principal; 2019-11-14)
DX: D57.00 Hb-SS disease with crisis, unspecified (principal); F17.200 Nicotine dependence, unspecified, uncomplicated; Z88.8 Allergy status to other drugs, medicaments and biological substances; Z79.01 Long term (current) use of anticoagulants; Z79.899 Other long term (current) drug therapy; Z11.59 Encounter for screening for other viral diseases
CPT/HCPCS: 36415; 36430; 80048; 80053; 80076; 83010; 83615; 83690; 83735; 85014; 85018; 85025; 85044; 86850; 86900; 86901; 96361; 96374; 96375; 99285; J1170; J1200; J1642; J1720; J2550; J3010; J7030; P9016; Q0169; U0002

== ENCOUNTER 2020-01-22 06:37 | Inpatient (IN) | payer OTHER ==
--- OUTSIDE RECORDS SUMMARY | 2020-01-22 06:40 | XMS REPORT | Clinical Summary ---
:1990 Author Organization [facility] Address [address] [place] [address] Care Team Providers Name Role Phone Tasha [...] Encounters Date Type Specialty Care Team Description 11/14/2019 Lab Requisition Lab after 01/21/2019 Family History Medical History Relation Name Comments [...] file Plan of Treatment Not on file Procedures Procedure Name Priority Date/Time Associated Diagnosis Comme nts SARS-COV2/RT-PCR Routine 11/13/2019 5:40 AM Resu lts for this ([facility]) CDT procedure are in the results section. after 01/21/2019 Results SARS-CoV2/RT-PCR ([facility]) (11/13/2019 5:40 AM CDT) SARS-COV2/RT-PCR Negative Not Detected, Negative [facility] SARS-COV-2 PERFORMING LAB [facility] Specimen Other Narrative Performed At Negative results do not preclude SARS-CoV-2 [facility] infection and should not be used as the sole basis for patient management decisions. Negative results must be combined with clinical observations, patient history, and epidemiological information. A false negative result may occur if a specimen is improperly collected, transported or handled. The limit of detection for this assay is 250 copies/mL. This SARS CoV-2 test is a rapid, real-time RT-PCR test intended for the qualitative detection of nucleic acid from SARS-CoV-2 in a nasopharyngeal swab specimen collected from individuals suspected of COVID-19 by their healthcare provider. This test has not been Food and Drug Administration (FDA) cleared or approved and has been authorized by FDA under an Emergency Use Authorization (EUA). This EUA will be effective until the declaration that circumstances exist justifying the authorization of the emergency use of in vitro diagnostic tests for detection and/or diagnosis of COVID-19 is terminated under Section 564(b)(2) of the Act or the EUA is revoked under Section 564(g) of the Act. Fact Sheet for Healthcare Providers: https://www.[employer]/Documents/Xpert%20Xpre ss%20SARS%20CoV-2/Fact%20Sheets/302-3802%20SAR S-COV-2%20HEALTHCARE%20PROVIDERS%20FACT%20SHEE T.pdf Fact Sheet for Healthcare Patients: https://www.[employer]/Documents/Xpert%20Xpre ss%20SARS%20CoV-2/Fact%20Sheets/302-3801%20SAR S-COV-2%20PATIENT%20FACT%20SHEET.pdf Performing Laboratory: [address] [place] [address] Performing Organization Address City/State/Zipcode Phone Number [address] [address] CENTER after 01/21/2019 Insurance Payer Benefit Plan / Subscriber ID Type Phone Address Group MEDICAID - MEDICAID [employer] [facility] [employer] xxxxxxxxx Medicaid Contracted [facility]GD CARE PLAN Advance Directives For more information, please contact:[address] [phone] Code Status Date Activated Date Inactivated Comments Full Code 08/02/2018 7:12 AM 08/10/2018 4:40 PM This code status was determined by: Patient Full Code 07/10/2015 11:45 PM 07/14/2015 10:45 PM This code status was determined by: Patient
--- OUTSIDE RECORDS SUMMARY | 2020-01-22 06:41 | XMS REPORT | Continuity of Care Document ---
:1990 Author Organization [facility] t Address [address] [place] [place] [address] Support Name Relationship Address Phone DENI Unavailable [id number] [facility] [phone] [address] [place] [address] DENI Unavailable [address] [facility] [phone] [address] [facility] [place] [address] JORDAN Unavailable [id number] [facility] [phone] [place] [address] JORDAN Unavailable [address] [facility] [phone] [place] [address] CLINTON DELEON MD E Admitting Provider [address] [facility] [address] [place] [address] JESSCIA SIDDIQUI Primary Care Physician [address] [place] [address] [address] [place] [address] VIJAYA MULLEN, A Emergency Provider [address] [place] [address] NAIMA MULLEN Attending Provider [address] [place] [address] JORDAN Next of Kin [address] [place] [address] IZZY MULLEN, E Emergency Provider [address] [facility] [address] [place] [address] PHYSICIAN Primary Care Physician Unavailable Unavailab chrissy GRISSOM MD Emergency Provider [address] [place] [address] OTHER, NAME IN NOTES Primary Care Physician Unavailable Sylvie caity SHIN MD, MD Emergency Provider [address] [place] [address] ISABELLA MULLEN, MORE Admitting Provider [address] [place] [address] [address] [place] [address] Care Team Providers Name Role Phone Shaikh PAZ, [facility] Primary [facility] Physician ERIBERTO WOODRUFF Attending Clinician Unavailable Antonia CARTER Admitting Clinician Unavailable Payers Payer Name Policy Policy Number Effective Expiration Source Type Date Date MEDICAID - MEDICAID MGD xxxxxxxxx [facility] - PLANxxxxxxxxxMedicaid Med ical Contracted Center Problems Condition Condition Condition Status Onset Resolution Last Treating Co mments Source Name Details Category Date Date Treatment Clinician Date Leukocytos Leukocytos Disease Active [facility] 00 [facility] Pneumonia Pneumonia Disease Active [facility] 00 [facility] 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[facility] 2[facility]29 [facility] - anemia anemia 00:00: Medical 00 [facility] 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[facility] 2[facility]28 [facility] - crisis crisis 00:00: Medical 00 [facility] Allergies, Adverse Reactions, Alerts Allergy Allergy Status Severity Reaction(s) Onset Inactive Treating Comm ents Source Name Type Date Date Clinician Ondanset Drug Active Nausea And [facility] brittney Hcl Intolera Vomiting 07-10 [facility] - (Pf) nce 00:00: Medical 00 [facility] morphine DA Active [facility] 3[facility]11 [place] 00:00: d 00 [facility] TEGEDERM DA Active [facility] DRESS[facility] 8-23 [place] 00:00: d 00 [facility] Family History Family Member Diagnosis Comments Start Date Stop Date Source Natural brother Unremarkable [facility] Natural father Seizures [facility] Natural father Sickle cell trait [facility] Natural mother Sickle cell trait [facility] Natural sister Unremarkable [facility] Social History Social Habit Start Date Stop Date Quantity Comments Source Sex Assigned At [facility] Smoking Status Start Date Stop Date Source Never smoker [facility] Medications Ordered Filled Start Stop Current Ordering Indication Dosage Frequency Signature Comments Components Source Medication Medication Date Date Medication? Clinician (SIG) Name Name HYDROmorpho Yes 8mg Take [address] ne 3-23 by mouth [facility] - (DILAUDID) 06:08: every 6 Medi rita 8 MG tablet 04 (six) Center hours as needed for Pain. apixaban 2019- Yes 2.5mg Q.5D Take 2.[address] [...] 23:51: daily. Medica l 07 Center Procedures Procedure Date / Time Performed Performing Clinician Sourc e SARS-COV2/RT-PCR ([facility] 2019-11-13 05:40:00 [facility] Encounters Start End Encounter Admission Attending Care Care Encounter Source Date/Time Date/Time Type Type Clinicians Facility Department ID 2019-06-14 2019-06-14 Emergency E [facility]BL MHBL [id number] [facility]BL 16:16:00 16:16:00 2019-06-09 2019-06-09 Inpatient E [facility] MED [id number] [facility] 09:53:00 05:29:00 2019-06-05 2019-06-05 Emergency E [facility]BL [facility]BL [id number] MHBL 00:19:00 00:19:00 2019-04-29 2019-04-29 Emergency E [facility] M[facility] [id number] MHSW 19:58:00 19:58:00 2019-03-26 2019-03-26 Emergency E [facility]BL [...] Time Test Comments Results Result Comments Source SARS-CoV2/RT-PCR ([facility] & Ref Labs) 2019-11-14 17:47:00 Test Item Value Reference Range Interpretation Comme nts SARS-COV2/RT-PCR (test code = Negative Not Detected, Negative 60991-1) SARS-COV-[address] [facility] (test code = 98339-0) RUSLAN (test code = RUSLAN) Negative results do not preclude SARS-CoV-2 infection and should not be used as [...] of the Act. Fact Sheet for Healthcare Providers:https://www.[facility]/Documents/Xpert%20Xpress %20SARS%20CoV-2/Fact%20Sheets /302-3802%01BJEL-XTX-9%20HEAL THCARE%20PROVIDERS%20FACT%20S HEET.pdf Fact Sheet for Healthcare Patients:https://www.[employer]/Documents/Xpert%20Xpress% 20SARS%20CoV-2/Fact%20Sheets/ 3023801%25LYWG-OOB-9%20PATIE NT%20FACT%20SHEET.pdf Performing Laboratory:[facility] [place] [address].[place], [place] [address] [place], [place] [address]ARS-COV2/RT-PCR ([facility] & REF LABS)2019-11-14 17:47:00 Test Item Value Reference Range Interpretation Comments SARS-COV2/RT-PCR (test code = Negative Not Detected, Negative 1432421) SARS-COV-[address] [facility] (test code = 1203132) Negative results do not preclude SARS-CoV-2 infection and should not be used as the sole basis for patient management decisions. Negative results must be combined with clinical observations, patient history, and epidemiological information. A false negative result may occur if a specimen is improperly collected, transported or handled.The limit of detection for this assay is 250 copies/mL.This SARS CoV-2 test is a rapid, real-time RT-PCR test intended for the qualitative detection of nucleic acid from SARS-CoV-2 in a nasopharyngeal swab specimen collected from individuals suspected of COVID-19 by their healthcare provider.This test has not been Food and Drug [...] is revoked under Section 564(g) of the Act.Fact Sheet for Healthcare Pro viders:https://www.[employer]/Documents/Xpert%20Xpress%20SARS%20CoV-2/Fact%20Sh eets/302-3802%02RVXZ-VVF-5%20HEALTHCARE%20PROVIDERS%20FACT%20SHEET.pdfFact Sheet for Healthcare Patients:https://www.[employer]/Documents/Xpert%20Xpress%20SARS%20CoV-2/Fact%20Sheets/302-3801%20SARS-COV -2%20PATIENT%20FACT%20SHEET.pdfPerforming Laboratory:[place] [address] [address] [place], [place] [address]WUT W/PLT COUNT & AUTO DIFFERENTIAL 2018-08-10 08:25:00 Test Item Value Reference Range Interpretation Comments WHITE BLOOD CELL COUNT (BEAKER) 13.2 K/ L 3.5-10.5 H (test code = 775) RED BLOOD CELL COUNT (BEAKER) 2.47 M/ L 3.93-5.22 L (test code = 761) HEMOGLOBIN (BEAKER) (test code = 8.4 GM/DL 11.2-15.7 L 410) HEMATOCRIT (BEAKER) (test code = 23.4 % 34.1-44.9 L 411) MEAN CORPUSCULAR VOLUME (BEAKER) 94.7 fL 79.4-94.8 (test code = 753) MEAN CORPUSCULAR HEMOGLOBIN 34.0 pg 25.6-32.2 H (BEAKER) (test code = 751) MEAN CORPUSCULAR HEMOGLOBIN CONC 35.9 GM/DL 32.2-35.5 H (BEAKER) (test code = 752) RED CELL DISTRIBUTION WIDTH 22.4 % 11.7-14.4 H (BEAKER) (test code = 412) PLATELET COUNT (BEAKER) (test 448 K/CU MM 150-450 code = 756) MEAN PLATELET VOLUME (BEAKER) 10.9 fL 9.4-12.3 (test code = 754) NUCLEATED RED BLOOD CELLS 13 /100 WBC 0-0 H (BEAKER) (test code = 413) (CELLAVISION MANUAL DIFF)2018-08-10 08:25:00 Test Item Value [...] 3438) Received comment: User comments: Slide comments:RETICULOCYTE [id number] 08:06:00 Test Item Value Reference Range Interpretation Comments RETICULOCYTE COUNT PCT (BEAKER) (test 25.0 % 0.5-1.7 H code = 575) CBC W/PLT COUNT & AUTO [id number] 09:27:00 Test Item Value Reference Range Interpretation [...] 3438) Received comment: User comments: Slide comments:RETICULOCYTE [id number] 05:01:00 Test Item Value Reference Range Interpretation Comments RETICULOCYTE COUNT PCT (BEAKER) (test 21.6 % 0.5-1.7 H code = 575) CBC W/PLT COUNT & AUTO [id number] 15:17:00 Test Item Value Reference Range Interpretation [...] H (BEAKER) (test code = 413) RETICULOCYTE [id number] 08:44:00 Test Item Value Reference Range Interpretation Comments RETICULOCYTE COUNT PCT (BEAKER) (test 23.8 % 0.5-1.7 H code = 575) BLOOD [id number] 14:01:00 Test Item Value Reference Range Interpretation Comments CULTURE (BEAKER) (test No growth in 5 days code = 1095) BLOOD [id number] 12:01:00 Test Item Value Reference Range Interpretation Comments CULTURE (BEAKER) (test No growth in 5 days code = 1095) CBC W/PLT COUNT & AUTO [id number] 11:38:00 Test Item Value Reference Range Interpretation [...] 3438) Received comment: User comments: Slide comments:RETICULOCYTE [id number] 07:44:00 Test Item Value Reference Range Interpretation Comments RETICULOCYTE COUNT PCT (BEAKER) (test 27.0 % 0.5-1.7 H code = 575) RETICULOCYTE [id number] 07:19:00 Test Item Value Reference Range Interpretation Comments RETICULOCYTE COUNT PCT (BEAKER) (test 22.7 % 0.5-1.7 H code = 575) CBC W/PLT COUNT & AUTO [id number] 12:07:00 Test Item Value Reference Range Interpretation [...] 3438) Received comment: User comments: Slide comments:RETICULOCYTE [id number] 06:14:00 Test Item Value Reference Range Interpretation Comments RETICULOCYTE COUNT PCT (BEAKER) (test 21.9 % 0.5-1.7 H code = 575) [id number] 06:02:00 Test Item Value Reference Range Interpretation Comments PHOSPHORUS (BEAKER) (test code = 3.8 mg/dL 2.3-4.7 604) [id number] 06:02:00 Test Item Value Reference Range Interpretation Comments MAGNESIUM (BEAKER) (test code = 1.8 mg/dL 1.6-2.6 627) BASIC METABOLIC [id number] 06:02:00 Test Item Value Reference Range Interpretation [...] Specimen moderately ictericCBC W/PLT COUNT & AUTO [id number] 09:09:00 Test Item Value Reference Range Interpretation [...] = 3438) Received comment: User comments: Slide comments:[id number] 04:11:00 Test Item Value Reference Range Interpretation Comments PHOSPHORUS (BEAKER) (test code = 3.3 mg/dL 2.3-4.7 604) [id number] 04:11:00 Test Item Value Reference Range Interpretation Comments MAGNESIUM (BEAKER) (test code = 1.6 mg/dL 1.6-2.6 627) BASIC METABOLIC [id number] 04:11:00 Test Item Value Reference Range Interpretation [...] FOR DIALYSIS PATIEN TS. Specimen slightly ictericRETICULOCYTE [id number] 03:54:00 Test Item Value Reference Range Interpretation Comments RETICULOCYTE COUNT PCT (BEAKER) (test 20.4 % 0.5-1.7 H code = 575) CBC W/PLT COUNT & AUTO [id number] 18:30:00 Test Item Value Reference Range Interpretation [...] = 413) CBC W/PLT COUNT & AUTO [id number] 10:51:00 Test Item Value Reference Range Interpretation [...] 3438) Received comment: User comments: Slide comments:RETICULOCYTE [id number] 10:08:00 Test Item Value Reference Range Interpretation Comments RETICULOCYTE COUNT PCT (BEAKER) (test 14.4 % 0.5-1.7 H code = 575) CBC W/PLT COUNT & AUTO [id number] 09:30:00 Test Item Value Reference Range Interpretation [...] = 3438) Received comment: User comments: Slide comments:[id number] 03:32:00 Test Item Value Reference Range Interpretation Comments PHOSPHORUS (BEAKER) (test code = 3.5 mg/dL 2.3-4.7 604) [id number] 03:32:00 Test Item Value Reference Range Interpretation Comments MAGNESIUM (BEAKER) (test code = 1.8 mg/dL 1.6-2.6 627) BASIC METABOLIC [id number] 03:32:00 Test Item Value Reference Range Interpretation [...] ictericCT, CHEST WITH IV CONTRAST- PE TEST [id number] 14:01:00FINAL REPORT CT scan of the chest. [...] MDReport Verified Date/Time: 08/02/2018 14:01:29 Reading Location: [facility] C013X Ortho Consult Reading Room URINALYSIS W/ REFLEX URINE [id number] 11:27:00 Test Item Value Reference Range Interpretation [...] 516) SOURCE(BEAKER) (test code = 2795) SCREEN, [id number] 11:15:00 Test Item Value Reference Range Interpretation Comments TEST URINE (BEAKER) (test Negative code = 583) RETICULOCYTE [id number] 04:43:00 Test Item Value Reference Range Interpretation Comments RETICULOCYTE COUNT PCT (BEAKER) (test 13.2 % 0.5-1.7 H code = 575) RAD, CHEST, 2 [id number] 03:54:00Reason for exam:->SICKLE CELL PAIN CRISISIs the [...] Ferris MDReport Verified Date/Time: 08/02/2018 03:54:52Reading Location: [address] Reading Room CBC W/PLT COUNT & [...] (BEAKER) (test code = 417) COMPREHENSIVE METABOLIC [id number] 02:42:00 Test Item Value Reference Range Interpretation [...] = 358) GLUCOSE RANDOM 104 mg/dL 70-110 (Quick2LAUNCHAKER) (test code = 652) CALCIUM (Quick2LAUNCHAKER) 9.5 mg/dL 8.5-10.5 (test code = 697) AST (SGOT) (Quick2LAUNCHAKER) 25 U/L 5-40 (test code = 353) ALT (SGPT) (Quick2LAUNCHAKER) 18 U/L 5-50 (test code = 347) EGFR (TimeLynes) (test 221 ESTIMATE D GFR IS code = 1092) mL/min/1.73 sq NOT ACCURA TE m CREATININE CLEARANCE IN PREDICTING GLOMERULAR FILTRATION RATE . ESTIMATED GFR I S NOT APPLICABLE FOR DIALYSIS PATIEN TS.
[2020-01-22 07:00] LABS: Hematocrit 21.1 % (36.0-45.0); Lymphocytes % 38.4 % (15.3-44.8); MPV 8.9 fL (7.6-11.3)
[2020-01-22] MEDS ORDERED: MORPHINE 4 MG/ML SYR ONE (07:02)
[2020-01-22] MEDS ORDERED: NA CHLORIDE 0.9% 1,000 ML ONE ×2 (07:02→10:20)
[2020-01-22 07:08] LABS: Protime INR 0.99
[2020-01-22 07:11] LABS: ALT/SGPT 62 U/L (12-78); AST/SGOT 78 U/L (15-37); Albumin 3.9 g/dL (3.4-5.0); Alkaline Phosphatase 123 U/L (45-117); BUN Blood Urea Nitrogen 9 mg/dL (7-18); Bicarbonate 24 mmol/L (21-32); Bilirubin Direct 0.5 mg/dL (0-0.2); Bilirubin Total 3.9 mg/dL (0.2-1.0); Glucose Level 104 mg/dL (74-106); Magnesium 2.2 mg/dL (1.8-2.4); Potassium 3.9 mmol/L (3.5-5.1); Protein, Total 7.3 g/dL (6.4-8.2); Sodium Level 138 mmol/L (136-145); Troponin (Emerg Dept Use Only) < 0.02 ng/mL (0.0-0.045)
[2020-01-22] MEDS ORDERED: DIPHENHYDRAMINE 50 MG/ML VIAL ONE (07:20)
--- NOTE | 2020-01-22 07:36 | EDPHYS ---
Physician Documentation [facility] Name: Gume Ortega Age: 29 yrs Sex: Female : 1990 Arrival Date: 01/22/2020 Time: 06:40 Bed 7 Private MD: ED Physician Apolinar Castro HPI: 01/21 06:49 This 29 yrs old Black Female presents to ER via EMS with complaints of Pain All Over. cp 06:49 Pain all over. cp 06:49 Onset: The symptoms/episode began/occurred this morning. Severity of symptoms: in the emergency department the symptoms are unchanged despite home interventions. The patient has experienced similar episodes in the past, multiple times. 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 - Social history:: Smoking status: Patient reports the use of cigarette tobacco products, WEED, Patient uses street drugs, marijuana. ROS: 06:49 Constitutional: Negative for body aches, chills, fever, poor PO intake. cp 06:50 Eyes: Negative for injury, pain, redness, and discharge. cp 06:50 ENT: Negative for ear pain, sore throat, difficulty swallowing, difficulty handling secretions. 06:50 Cardiovascular: Negative for edema, palpitations. 06:50 Respiratory: Negative for cough, shortness of breath, wheezing. 06:50 Abdomen/GI: Negative for vomiting, diarrhea, constipation. 06:50 Back: Negative for injury or acute deformity. 06:50 MS/extremity: Positive for pain all over, Negative for injury or acute deformity. 06:50 Neuro: Negative for altered mental status, headache, weakness. 06:50 All other systems are negative. cp Exam: 06:55 Constitutional: The patient appears in no acute distress, alert, awake, cp non-diaphoretic, non-toxic, well developed, well nourished, uncomfortable. 06:55 Head/Face: Normocephalic, atraumatic. cp 06:55 Eyes: Periorbital structures: appear normal, Conjunctiva: normal, no exudate, no injection, Sclera: no appreciated abnormality, Lids and lashes: appear normal, bilaterally. 06:55 ENT: External ear(s): are unremarkable, Nose: is normal, Mouth: Lips: moist, Oral mucosa: moist, Posterior pharynx: Airway: no evidence of obstruction, patent. 06:55 Neck: ROM/movement: is normal, is supple, no meningismus, no nuchal rigidity. 06:55 Chest/axilla: Inspection: normal, Palpation: is normal, no crepitus, no tenderness. 06:55 Cardiovascular: Rate: normal, Rhythm: regular, Edema: is not appreciated, JVD: is not appreciated. 06:55 Respiratory: the patient does not display signs of respiratory distress, Respirations: normal, no use of accessory muscles, no retractions, labored breathing, is not present, Breath sounds: are clear throughout, no decreased breath sounds, no stridor, no wheezing. 06:55 Abdomen/GI: Inspection: abdomen appears normal, Bowel sounds: active, all quadrants, Palpation: soft, in all quadrants, mild abdominal tenderness, in all quadrants. 06:55 Skin: cellulitis, is not appreciated, no rash present. 06:55 Neuro: Orientation: to person, place \T\ time. Mentation: is normal, Motor: moves all fours, strength is normal. 07:08 ECG was reviewed by the Attending Physician. cp Vital Signs: 06:40 BP 121 / 70; Pulse 77; Resp 17; Temp 97.8(TE); Pulse Ox 97% ; Weight 77.11 kg; rv 07:30 BP 104 / 58; Pulse 72; Resp 18; Pulse Ox 95% on R/A; em 09:45 BP 108 / 87; Pulse 82; Resp 18; Pulse Ox 98% on R/A; em MDM: 06:44 Patient medically screened. cp 07:33 Physician consultation: Apolinar Castrejon MD was called at 07:30, was contacted at 07:30, cp regarding admission, to the medical/surgical unit. patient's condition. 07:33 Data reviewed: vital signs, nurses notes, lab test result(s), EKG, and as a result, I will admit patient. 01/21 06:48 Order name: Basic Metabolic Panel; Complete Time: 07:21 cp 01/21 07:21 Interpretation: Normal except: CL 108; CA 8.3. cp 01/21 06:48 Order name: CBC with Diff 01/21 07:27 Interpretation: Normal except: WBC 20.8; RBC 2.20; HGB 7.8; HCT 21.1; MCH 35.2; MCHC cp 36.8; RDW 21.6; BASO% 2.0; NEUT A 10.0; LYMA 8.0; MNA 2.0. 01/21 06:48 Order name: LFT's; Complete Time: 07:21 cp 01/21 07:21 Interpretation: Normal except: AST 78; ALK 123; BILIT 3.9; BILID 0.5. 01/21 06:48 Order name: Magnesium; Complete Time: 07:21 01/21 06:48 Order name: PT-INR; Complete Time: 07:21 01/21 06:48 Order name: Troponin (emerg Dept Use Only); Complete Time: 07:21 01/21 06:48 Order name: Retic Count 01/21 09:16 Interpretation: Abnormal: RETIC% 17.02; RETICA 0.38. 01/21 06:48 Order name: UDS; Complete Time: 17:36 01/21 06:50 Order name: COVID-19 01/21 06:50 Order name: CORONAVIRUS; Complete Time: 17:36 EDMO 01/21 06:53 Order name: PTT, Activated Partial Thromb; Complete Time: 07:21 EDMS 01/21 08:07 Order name: Comprehensive Metabolic Panel EDMS 01/21 08:07 Order name: Comprehensive Metabolic Panel EDMS 01/21 08:07 Order name: Magnesium EDMS 01/21 08:07 Order name: Magnesium EDMS 01/21 08:07 Order name: Phosphorus EDMS 01/21 08:07 Order name: Phosphorus EDMS 01/21 08:07 Order name: Protime (+INR) EDMS 01/21 08:07 Order name: Protime (+INR) EDMS 01/21 08:07 Order name: PTT, Activated Partial Thromb EDMS 01/21 08:07 Order name: PTT, Activated Partial Thromb EDMS 01/21 08:08 Order name: Urinalysis; Complete Time: 17:36 EDMS 01/21 08:08 Order name: CBC with Automated Diff EDMS 01/21 08:08 Order name: CBC with Automated Diff EDMS 01/21 09:25 Order name: Manual Differential EDMS 01/21 10:17 Order name: Urine Dipstick--Ancillary (enter results) bd 01/21 10:17 Order name: Urine --Ancillary (enter results) bd 01/21 10:20 Order name: Urine --Ancillary; Complete Time: 17:36 EDMS 01/21 10:20 Order name: Urine Dipstick-Ancillary; Complete Time: 17:36 EDMS 01/21 06:48 Order name: XRAY Chest (1 view); Complete Time: 09:15 cp 01/21 06:48 Order name: EKG; Complete Time: 06:48 cp 01/21 06:48 Order name: Cardiac monitoring; Complete Time: 06:48 cp 01/21 06:48 Order name: EKG - Nurse/Tech; Complete Time: 07:04 cp 01/21 06:48 Order name: IV Saline Lock; Complete Time: 06:48 cp 01/21 06:48 Order name: Labs collected and sent; Complete Time: 06:48 cp 01/21 06:48 Order name: O2 Per Protocol; Complete Time: 06:48 cp 01/21 06:48 Order name: O2 Sat Monitoring; Complete Time: 06:48 cp 01/21 06:48 Order name: Urine Dipstick-Ancillary (obtain specimen); Complete Time: 10:41 cp 01/21 06:48 Order name: Urine Test (obtain specimen); Complete Time: 10:41 cp 01/21 07:24 Order name: US Abdomen Limited; Complete Time: 09:15 cp 01/21 08:07 Order name: Regular EDMS EC:08 Rate is 68 beats/min. Rhythm is regular. NC interval is normal. QRS interval is normal. cp QT interval is normal. T waves are Inverted in lead aVR. Interpreted by me. Reviewed by me. Administered Medications: 06:56 Drug: NS 0.9% 1000 ml Route: IV; Rate: 1 bolus; Site: right wrist; ea 09:30 Follow up: IV Status: Completed infusion; IV Intake: 1000ml em 06:56 Drug: morphine 4 mg {Note: rass 1.} Route: IVP; Site: right wrist; ea 07:10 Follow up: Response: No adverse reaction; Pain is unchanged, physician notified em 07:21 Drug: Benadryl 25 mg Route: IVP; Site: right wrist; em 07:30 Follow up: Response: No adverse reaction; Marked relief of symptoms em 07:30 Drug: Dilaudid 1 mg Route: IVP; Site: right wrist; em 09:30 Follow up: Response: No adverse reaction em 10:30 Drug: Rocephin 1 grams Route: IV; Rate: calculated rate; Site: Port-a-cath; em 10:41 Follow up: Response: No adverse reaction; IV Status: Completed infusion; IV Intake: 10mlem 10:30 Drug: NS 0.9% 1000 ml Route: IV; Rate: 1 bolus; Site: Port-a-cath; em 11:20 Follow up: IV Status: Completed infusion; IV Intake: 1000ml em 10:32 Drug: Dilaudid 1 mg Route: IVP; Site: Port-a-cath; em 11:20 Follow up: Response: No adverse reaction em Disposition: 16:19 Co-signature as Attending Physician, Apolinar Castro MD. [facility] Disposition: 01/22/20 07:35 Hospitalization ordered by Apolinar Castrejon for Inpatient Admission. Preliminary diagnosis is Other sickle-cell disorders with crisis, unspecified. - Bed requested for Telemetry/MedSurg (Inpatient). - Status is Inpatient Admission. em - Condition is Stable. - Problem is an acute exacerbation. - Symptoms have improved. Signatures: Dispatcher [employer] EDMS Carol Ann Crouch Edgar RN RN em Nelson Michaud PA PA cp Antunez, Elena, RN RN ea Alzahri, Mohammad, MD MD utMega Almonte RN RN rv Corrections: (The following items were deleted from the chart) 06:53 06:49 PTT, ACTIVATED+COAG.LAB.BRZ ordered. EDMS EDMS 07:22 07:21 Normal except: CL 108. cp cp 07:28 07:21 Normal except: WBC 20.8; RBC 2.20; HGB 7.8; HCT 21.1; MCH 35.2; MCHC 36.8; RDW cp 21.6; BASO% 2.0. cp 09:15 07:35 Hospitalization Ordered by Apolinar Castrejon MD for Inpatient Admission. Preliminary bd diagnosis is Other sickle-cell disorders with crisis, unspecified. Bed requested for Telemetry/MedSurg (Inpatient). Status is Inpatient Admission. Condition is Stable. Problem is an acute exacerbation. Symptoms have improved. cp 11:21 09:15 01/22/2020 07:35 Hospitalization Ordered by Apolinar Castrejon MD for Inpatient em Admission. Preliminary diagnosis is Other sickle-cell disorders with crisis, unspecified. Bed requested for Telemetry/MedSurg (Inpatient). Status is Inpatient Admission. Condition is Stable. Problem is an acute exacerbation. Symptoms have improved. bd
--- NOTE | 2020-01-22 07:36 | ER ---
Nurse's Notes [facility] Name: Gume Ortega Age: 29 yrs Sex: Female : 1990 Arrival Date: 01/22/2020 Time: 06:40 Bed 7 Private MD: Diagnosis: Other sickle-cell disorders with crisis, unspecified Presentation: 01/21 06:40 Chief complaint: EMS states: PATIENT IS COMPLAINING OF PAIN ALL OVER. HISTORY OF SICKLE rv CELL DSE. Coronavirus screen: Client denies travel out of the [place] in the last 14 days. Ebola Screen: No symptoms or risks identified at this time. Initial Sepsis Screen: Does the patient meet any 2 criteria? No. Patient's initial sepsis screen is negative. Does the patient have a suspected source of infection? No. Patient's initial sepsis screen is negative. Risk Assessment: Do you want to hurt yourself or someone else? Patient reports no desire to harm self or others. Onset of symptoms was January 22, 2020 at 06:00. 06:40 Method Of Arrival: EMS: [facility] 06:40 Acuity: MARILUZ 2 rv Triage Assessment: 06:42 General: Appears uncomfortable, ill, Behavior is calm, cooperative. Pain: Complains of rv pain in GENERALIZED. EENT: No signs and/or symptoms were reported regarding the EENT system. Neuro: Level of Consciousness is awake, alert, obeys commands, Oriented to person, place, time, situation. Cardiovascular: Patient's skin is warm and dry. Respiratory: Airway is patent Respiratory effort is even, Respiratory pattern is tachypnea. Derm: Skin is intact. 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 - Social history:: Smoking status: Patient reports the use of cigarette tobacco products, WEED, Patient uses street drugs, marijuana. Screenin:44 Abuse screen: Denies threats or abuse. Denies injuries from another. Nutritional rv screening: No deficits noted. Tuberculosis screening: No symptoms or risk factors identified. Fall Risk None identified. Assessment: 07:05 General: Appears in no apparent distress. uncomfortable, Behavior is cooperative, em crying, Denies fever. Pain: Complains of pain in "everywhere" Pain currently is 10 out of 10 on a pain scale. Neuro: Level of Consciousness is awake, alert, obeys commands, Oriented to person, place, time, situation, Appropriate for age. Cardiovascular: Capillary refill < 3 seconds Patient's skin is warm and dry. Respiratory: Airway is patent Respiratory effort is even, unlabored, Respiratory pattern is regular, symmetrical. Derm: Skin is intact, is healthy with good turgor, Skin is pink, warm \\T\\ dry. Musculoskeletal: Capillary refill < 3 seconds, Range of motion: intact in all extremities. 07:10 Reassessment: reports itchiness and pain is unchanged, provider notified. em 07:30 Reassessment: Patient appears in no apparent distress at this time. Patient and/or em family updated on plan of care and expected duration. Pain level reassessed. Patient is alert, oriented x 3, equal unlabored respirations, skin warm/dry/pink. Patient states feeling better. Patient states symptoms have improved. 08:30 Reassessment: Patient appears in no apparent distress at this time. Patient and/or em family updated on plan of care and expected duration. Pain level reassessed. Patient is alert, oriented x 3, equal unlabored respirations, skin warm/dry/pink. 10:15 Reassessment: Patient appears in no apparent distress at this time. reports pain em everywhere, provider notified, received new medication orders. Vital Signs: 06:40 BP 121 / 70; Pulse 77; Resp 17; Temp 97.8(TE); Pulse Ox 97% ; Weight 77.11 kg; rv 07:30 BP 104 / 58; Pulse 72; Resp 18; Pulse Ox 95% on R/A; em 09:45 BP 108 / 87; Pulse 82; Resp 18; Pulse Ox 98% on R/A; em ED Course: 06:40 Patient arrived in ED. rv 06:41 Nelson Michaud PA is PHCP. cp 06:41 Adriel Mcfadden MD is Attending Physician. cp 06:42 Triage completed. rv 06:44 Arm band placed on right wrist. Patient placed in the treatment room, on a stretcher, rv Patient notified of wait time. 06:44 Maintain EMS IV. Dressing intact. Good blood return noted. Site clean \\T\\ dry. Gauge \\T\\ rv site: G20 RIGHT WRIST. 06:46 Patient has correct armband on for positive identification. Pulse ox on. NIBP on. rv 06:56 XRAY Chest (1 view) In Process Unspecified. EDMS 07:09 Attending Physician role handed off by Adriel Mcfadden MD cp 07:09 Apolinar Castro MD is Attending Physician. cp 07:10 Haile Villafana RN is Primary Nurse. em 07:34 Apolinar Castrejon MD is Hospitalizing Provider. cp 07:48 US Abdomen Limited In Process Unspecified. EDMS 09:46 Diet: Patient given a regular meal tray. bd 10:25 No provider procedures requiring assistance completed. IV discontinued, intact, em bleeding controlled, No redness/swelling at site. Pressure dressing applied. 10:28 Accessed Port-a-Cath. using accessed w/ # 20 Peters needle, Clean \\T\\ dry. Dressing em intact. Good blood return. Flushes easily. 10:51 Urine --Ancillary (enter results) Sent. mh5 10:52 Urine Dipstick--Ancillary (enter results) Sent. 5 10:53 COVID-19 Sent. 5 Administered Medications: 06:56 Drug: NS 0.9% 1000 ml Route: IV; Rate: 1 bolus; Site: right wrist; ea 09:30 Follow up: IV Status: Completed infusion; IV Intake: 1000ml em 06:56 Drug: morphine 4 mg {Note: rass 1.} Route: IVP; Site: right wrist; ea 07:10 Follow up: Response: No adverse reaction; Pain is unchanged, physician notified em 07:21 Drug: Benadryl 25 mg Route: IVP; Site: right wrist; em 07:30 Follow up: Response: No adverse reaction; Marked relief of symptoms em 07:30 Drug: Dilaudid 1 mg Route: IVP; Site: right wrist; em 09:30 Follow up: Response: No adverse reaction em 10:30 Drug: Rocephin 1 grams Route: IV; Rate: calculated rate; Site: Port-a-cath; em 10:41 Follow up: Response: No adverse reaction; IV Status: Completed infusion; IV Intake: 10mlem 10:30 Drug: NS 0.9% 1000 ml Route: IV; Rate: 1 bolus; Site: Port-a-cath; em 11:20 Follow up: IV Status: Completed infusion; IV Intake: 1000ml em 10:32 Drug: Dilaudid 1 mg Route: IVP; Site: Port-a-cath; em 11:20 Follow up: Response: No adverse reaction em Intake: 09:30 IV: 1000ml; Total: 1000ml. em 10:41 IV: 10ml; Total: 1010ml. em 11:20 IV: 1000ml; Total: 2010ml. em Outcome: 07:35 Decision to Hospitalize by Provider. cp 11:16 Admitted to Med/surg accompanied by tech, via wheelchair, Report called to SHYAM Ayon em 11:16 Condition: stable 11:16 Instructed on the need for admit, Demonstrated understanding of instructions. 11:21 Patient left the ED. em Addendum: 01/25/2020 13:07 Addendum: COVID-19 Result: Negative result given to RN to notify pt. Notified pt of i w negative COVID 19 swab results. Pt advised that even with a negative test result they should remain in isolation until symptom free for 3 days without medication. Pt also advised to return to the ED for worsening symptoms. Signatures: Dispatcher [facility] EDCarol Ann Dietrich Edgar, RN RN em Williams, Irene, RN RN iw Page, Corey, PA PA cp Martinez, [facility] Irene Castro RN RN ea Vicente, Ronaldo, RN RN rv
[2020-01-22] MEDS ORDERED: HYDROMORPHONE HCL 1 MG/ML INJ ONE ×2 (07:37→10:20)
[2020-01-22] MEDS ORDERED: ONDANSETRON 4 MG/2 ML VIAL IV PRN (08:05)
--- NOTE | 2020-01-22 08:09 | P.HP ---
Certification for Inpatient Patient admitted to: Inpatient With expected LOS: >2 Midnights Patient will require the following post-hospital care: None Practitioner: I am a practitioner with admitting privileges, knowledge of patient current condition, hospital course, and medical plan of care. Services: Services provided to patient in accordance with Admission requirements found in Title 42 Section 412.3 of the Code of Federal Regulations Patient History Date of Service: 01/22/20 Reason for admission: Sickle cell pain crisis History of Present Illness: Patient is a 29yo who was admitted to the ER with diffuse pain. Patient's history of sickle cell disease. Patient apparently is going to a sickle cell pain crisis. Her hemoglobin is normally around 10. She is at 7.8. She has a leukocytosis. She is subjectively in excruciating pain. Heart rate is elevated. She had normally takes Dilaudid at home. She takes about 8 mg t.i.d.. She is not on hydroxyurea. She is not on any other sickle cell medications. Her drug screen also came back positive for marijuana. At this time, she will be admitted to the hospital for further evaluation. Will need to get her pain control. Her pain normally lasts from 3-7 days. Will monitor her closely and hopefully we can get her pain controlled over the next 48-72 hrs. Allergies ondansetron HCl [From Zofran] Allergy (Mild, Verified 08/02/12 16:51) Nausea/Vomiting Home Medications: Folic Acid [Folic Acid*] 1 mg PO DAILY 08/01/12 Apixaban [Eliquis *] 1 tab PO BID 08/12/18 Promethazine Tab [Phenergan*] 25 mg PO Q4H PRN #30 tab 11/15/19 Hydromorphone HCl [Dilaudid] 8 mg PO BID 01/22/20 hydrOXYzine HCL [Atarax*] 25 mg PO Q6HP PRN 01/22/20 - Past Medical/Surgical History Diabetic: No -: sickle cell -: pneumonia -: port-a-cath placement - Family History Mother Medical History: Other (see notes) Notes: sickle cell trait Father Medical History: Other (see notes) Notes: sickle cell trait - Social History Alcohol use: Yes CD- Drugs: Yes Caffeine use: Yes Review of Systems 10-point ROS is otherwise unremarkable Physical Examination - Vital Signs Temperature: 98 F Blood Pressure: 180/80 Pulse: 90 Respirations: 18 Pulse Ox (%): 97 - Physical Exam General: Alert, In no apparent distress, Oriented x3 HEENT: Atraumatic, PERRLA, Mucous membr. moist/pink, EOMI, Sclerae nonicteric Neck: Supple, 2+ carotid pulse no bruit, No LAD, Without JVD or thyroid abnormality Respiratory: Clear to auscultation bilaterally, Normal air movement Cardiovascular: Regular rate/rhythm, Normal S1 S2 Gastrointestinal: Normal bowel sounds, Soft and benign, Non-distended, No tenderness Musculoskeletal: No clubbing, No swelling, No tenderness Integumentary: No rashes Neurological: Normal gait, Normal speech, Normal strength at 5/5 x4 extr, Normal tone, Sensation intact, Cranial nerves 3-12 intact, Normal affect Lymphatics: No axilla or inguinal lymphadenopathy - Studies Laboratory Data (last 24 hrs) 01/22/20 06:49: APTT Cancelled 01/22/20 06:40: PT 11.7, INR 0.99, APTT 26.3 01/22/20 06:40: WBC 20.8 H*, Hgb 7.8 L*, Hct 21.1 L, Plt Count 335 01/22/20 06:40: Sodium 138, Potassium 3.9, BUN 9, Creatinine 0.68, Glucose 104, Magnesium 2.2, Total Bilirubin 3.9 H, AST 78 H, ALT 62, Alkaline Phosphatase 123 H Assessment & Plan - Problems (Diagnosis) (1) Hemolytic anemia Current Visit: Yes Status: Acute (2) Leucocytosis Current Visit: No Status: Acute (3) Sickle cell pain crisis Current Visit: No Status: Acute - Plan PLAN: 1. Continue with pain control 2. Continue with anti emetics 3. Monitor H&H and leukocytosis 4. Folic acid and will need to talk with patient regarding considering hydroxy urea. 5. Start Eliquis and patient will no longer need Lovenox 6. GI and DVT prophylaxis Discharge Plan: Home Plan to discharge in: Greater than 2 days - Advance Directives Does patient have a Living Will: No Does patient have a Durable POA for Healthcare: No - Code Status/Comfort Care Code Status Assessed: Yes Code Status: Full Code Critical Care: No Time Spent Managing PTS Care (In Minutes): 45
--- NOTE | 2020-01-22 08:22 | RAD REPORT ---
EXAM DESCRIPTION: RAD - Chest Single View - 01/22/2020 6:57 am CLINICAL HISTORY: PAIN Chest pain. COMPARISON: Chest Single View dated 08/12/2018; Chest Pa And Lat (2 Views) dated 09/11/2017; Chest Singl e View dated 11/25/2016; Chest Single View dated 11/02/2016 FINDINGS: Portable technique limits examination quality. The lungs are grossly clear. The heart is mildly prominent in size. No displaced fractures.Left-sided port catheter is unchanged in position. IMPRESSION: No acute intrathoracic process suspected.
--- NOTE | 2020-01-22 08:25 | RAD REPORT ---
EXAM DESCRIPTION: US - Abdomen Exam Limited - 01/22/2020 7:48 am CLINICAL HISTORY: elevated liver enzymes Abdominal pain COMPARISON: No comparisons FINDINGS: The gallbladder demonstrates several shadowing gallstones. No pericholecystic fluid or gal lbladder wall thickening. The common bile duct is mildly prominent measuring 6-7 mm. The liver demonstrates no findings of intrahepatic biliary dilatation. IMPRESSION: Extensive cholelithiasis. Mildly prominent common bile duct measuring 6-7 mm. If clinically indicated, followup MRCP may be of value.
[2020-01-22] MEDS ORDERED: CEFTRIAXONE/SWI 1gm 1 GM/10 ML SYR ONE (08:35)
[2020-01-22 09:24] LABS: Anisocytosis 2+; Blood Morphology Comment NOTED (NOT SEEN); Platelet Estimate ADEQ; Polychromasia 2+; Target Cells 1+
[2020-01-22 10:20] LABS: Urine Blood TRACE (NEG); Urine Glucose NEGATIVE (NEG); Urine Protein NEGATIVE (NEG); Urine Specific Gravity 1.015 (1.005-1.030)
[2020-01-22 10:45] LABS: Barbiturates NEGATIVE (NEGATIVE); Benzodiazepines NEGATIVE (NEGATIVE); Cocaine NEGATIVE (NEGATIVE); METHAMPHETAM NEGATIVE (NEGATIVE); Methadone NEGATIVE (NEGATIVE); Opiates POSITIVE (NEGATIVE); Phencyclidine NEGATIVE (NEGATIVE); THC Cannibis POSITIVE (NEGATIVE)
[2020-01-22 11:32] VITALS: BMI 31.1
[2020-01-22] MEDS: NA CHLORIDE 0.9% 1,000 ML IV SCH ×2 (11:53→20:19)
[2020-01-22] MEDS: ENOXAPARIN 40 MG/0.4 ML SQ SCH (11:56)
[2020-01-22 14:05] LABS: Urine Appearance CLEAR; Urine Bilirubin NEGATIVE (NEG); Urine Blood NEGATIVE (NEG); Urine Color YELLOW; Urine Glucose NEGATIVE (NEG); Urine Protein NEGATIVE (NEG)
[2020-01-22] MEDS: HYDROMORPHONE HCL 2 MG/ML inj IV PRN ×3 (14:23→22:00)
[2020-01-22 14:33] LABS: Urine Microscopic Reflex NO UMIC
[2020-01-22] MEDS: DIPHENHYDRAMINE 50 MG/ML VIAL IV PRN ×2 (16:06→23:27)
[2020-01-22] MEDS ORDERED: PROMETHAZINE 25 MG TABLET PO PRN (17:29)
[2020-01-22] MEDS: PROMETHAZINE INJ 25 MG/ML AMP IV PRN (20:19)
[2020-01-23] MEDS: HYDROMORPHONE HCL 2 MG/ML inj IV PRN ×6 (01:54→23:33)
[2020-01-23] MEDS: DIPHENHYDRAMINE 50 MG/ML VIAL IV PRN ×3 (03:28→20:25)
[2020-01-23 05:31] LABS: Absolute Lymphocytes (CBC) 5.8 K/uL (0.7-4.9); Basophils % 2.1 % (0-1.3); Hematocrit 19.2 % (36.0-45.0); Lymphocytes % 33.8 % (15.3-44.8); MPV 9.1 fL (7.6-11.3); RBC Red Blood Cell Count 2.01 M/uL (3.86-4.86)
[2020-01-23 05:35] LABS: Protime INR 1.03
[2020-01-23 05:52] LABS: ALT/SGPT 48 U/L (12-78); AST/SGOT 49 U/L (15-37); Albumin 3.7 g/dL (3.4-5.0); Alkaline Phosphatase 90 U/L (45-117); BUN Blood Urea Nitrogen 5 mg/dL (7-18); Bicarbonate 26 mmol/L (21-32); Bilirubin Total 4.1 mg/dL (0.2-1.0); Glucose Level 82 mg/dL (74-106); Magnesium 2.1 mg/dL (1.8-2.4); Phosphorus 3.2 mg/dL (2.5-4.9); Potassium 4.3 mmol/L (3.5-5.1); Protein, Total 7.4 g/dL (6.4-8.2); Sodium Level 139 mmol/L (136-145)
[2020-01-23] MEDS: NA CHLORIDE 0.9% 1,000 ML IV SCH ×2 (06:46→15:28)
[2020-01-23] MEDS: PROMETHAZINE INJ 25 MG/ML AMP IV PRN ×2 (08:53→21:30)
[2020-01-23] MEDS: ENOXAPARIN 40 MG/0.4 ML SQ SCH (08:53)
--- NOTE | 2020-01-23 09:15 | P.PN ---
Subjective Date of Service: 01/23/20 Patient's hemoglobin is decreased to 6.9. Patient will require blood transfusion. Will need to follow up as an outpatient with Hematology to discuss starting hydroxyurea. Other new sickle cell medications are out and she will need to talk with them to consider these as well. Review of Systems 10-point ROS is otherwise unremarkable Physical Examination - Vital Signs Temperature: 98 F Blood Pressure: 180/80 Pulse: 90 Respirations: 18 Pulse Ox (%): 97 - Physical Exam General: Alert, In no apparent distress, Oriented x3 Respiratory: Clear to auscultation bilaterally, Normal air movement Cardiovascular: Regular rate/rhythm, Normal S1 S2 Gastrointestinal: Normal bowel sounds, Soft and benign, Non-distended, No tenderness Musculoskeletal: No clubbing, No swelling, No tenderness Neurological: Normal speech, Normal strength at 5/5 x4 extr - Studies Laboratory Data (last 24 hrs) 01/22/20 06:40: WBC 20.8 H*, Hgb 7.8 L*, Hct 21.1 L, Plt Count 335 Microbiology Data (last 24 hrs): 01/22/20 07:00 Nasopharnyx Coronavirus COVID-19 PCR - Final Medications List Reviewed: Yes Assessment & Plan - Problems (Diagnosis) (1) Hemolytic anemia Current Visit: Yes Status: Acute (2) Leucocytosis Current Visit: No Status: Acute (3) Sickle cell pain crisis Current Visit: No Status: Acute - Plan PLAN: Continue with Benadryl as mentioned below: 1. Continue with pain control 2. Continue with anti emetics 3. Transfuse 2 units of packed red blood cells 4. Folic acid and will need to talk with patient regarding considering hydroxy urea. 5. Start Eliquis and patient will no longer need Lovenox 6. GI and DVT prophylaxis Discharge Plan: Home - Advance Directives Does patient have a Living Will: No Does patient have a Durable POA for Healthcare: No - Code Status/Comfort Care Code Status: Full Code Critical Care: No Time Spent Managing PTS Care (In Minutes): 35
[2020-01-23] MEDS ORDERED: NA CHLORIDE 0.9% 250 ML ONE (11:38)
[2020-01-23 18:05] LABS: Hematocrit 23.5 % (36.0-45.0)
[2020-01-23] MEDS: APIXABAN 2.5 MG TABLET PO SCH (20:20)
[2020-01-24] MEDS: NA CHLORIDE 0.9% 1,000 ML IV SCH ×3 (00:17→11:00)
[2020-01-24] MEDS: HYDROMORPHONE HCL 2 MG/ML inj IV PRN ×4 (03:39→16:52)
[2020-01-24 03:49] VITALS: O2SAT 97
[2020-01-24] MEDS: DIPHENHYDRAMINE 50 MG/ML VIAL IV PRN ×2 (04:28→10:46)
[2020-01-24] MEDS: APIXABAN 2.5 MG TABLET PO SCH (07:47)
[2020-01-24] MEDS ORDERED: FOLIC ACID 1 MG TABLET PO SCH (09:00)
[2020-01-24] MEDS: PROMETHAZINE INJ 25 MG/ML AMP IV PRN (09:12)
--- NOTE | 2020-01-24 09:49 | EKG ---
Test Date: 2020-01-22 Test Time: 06:58:08 Doughnut Machine Operator: KHOA MEASUREMENT RESULTS: Intervals: Rate: 68 GA: 124 QRSD: 82 QT: 402 QTc: 427 [place]: P: 18 GA: 124 QRS: 68 T: 61 INTERPRETIVE STATEMENTS: Normal sinus rhythm Normal ECG Compared to ECG 08/12/2018 10:31:50 Sinus bradycardia no longer present T-wave abnormality no longer present Possible ischemia no longer present Electronically Signed On 01-24-20 09:44:55 CDT by Jeremie Pan
[2020-01-24] MEDS ORDERED: hydrOXYzine HCL 25 MG TAB PO PRN (11:45)
[2020-01-24] MEDS ORDERED: PROMETHAZINE 25 MG TABLET PO PRN (11:45)
--- NOTE | 2020-01-24 11:53 | P.DS ---
Discharge Date: 01/24/20 Disposition: ROUTINE DISCHARGE Discharge Condition: GOOD Reason for Admission: Sickle cell pain crisis - Problems (1) Hemolytic anemia Current Visit: Yes Status: Acute (2) Leucocytosis Current Visit: No Status: Acute (3) Sickle cell pain crisis Current Visit: No Status: Acute Brief History of Present Illness: Patient is a 29yo who was admitted to the ER with diffuse pain. Patient's history of sickle cell disease. Patient apparently is going to a sickle cell pain crisis. Her hemoglobin is normally around 10. She is at 7.8. She has a leukocytosis. She is subjectively in excruciating pain. Heart rate is elevated. She had normally takes Dilaudid at home. She takes about 8 mg t.i.d.. She is not on hydroxyurea. She is not on any other sickle cell medications. Her drug screen also came back positive for marijuana. At this time, she will be admitted to the hospital for further evaluation. Will need to get her pain control. Her pain normally lasts from 3-7 days. Will monitor her closely and hopefully we can get her pain controlled over the next 48-72 hrs. Hospital Course: PATIENT'S PAIN IS IMPROVED. PATIENT REQUIRED 2 UNITS OF PACKED RED BLOOD CELLS AND HAS DONE WELL. AT THIS TIME, PATIENT IS STABLE FOR DISCHARGE WITH OUTPATIENT FOLLOW-UP. PATIENT IS OUT OF PAIN MEDICATION AND WILL ASSIST UNTIL SHE CAN SEE THE INFORMATION SUPPORT PROJECT MANAGER IN 1-2 WEEKS. Vital Signs/Physical Exam: Temp Pulse Resp BP Pulse Ox 98 F 90 18 180/80 H 97 01/24/20 11:48 01/24/20 11:48 01/24/20 11:48 01/24/20 11:48 01/24/20 11:48 General: Alert, In no apparent distress, Oriented x3 Laboratory Data at Discharge: WBC 17.1 K/uL (4.3-10.9) H D 01/23/20 04:56 Hgb 8.2 g/dL (12.0-15.0) L 01/23/20 17:35 Hgb Cancelled 01/23/20 17:35 Hct 23.5 % (36.0-45.0) L D 01/23/20 17:35 Hct Cancelled 01/23/20 17:35 Plt Count 319 K/uL (152-406) 01/23/20 04:56 PT 12.2 SECONDS (9.5-12.5) 01/23/20 04:56 INR 1.03 01/23/20 04:56 APTT 26.9 SECONDS (24.3-36.9) 01/23/20 04:56 Sodium 139 mmol/L (136-145) 01/23/20 04:56 Potassium 4.3 mmol/L (3.5-5.1) 01/23/20 04:56 BUN 5 mg/dL (7-18) L 01/23/20 04:56 Creatinine 0.45 mg/dL (0.55-1.3) L 01/23/20 04:56 Glucose 82 mg/dL (74-106) 01/23/20 04:56 Phosphorus 3.2 mg/dL (2.5-4.9) 01/23/20 04:56 Magnesium 2.1 mg/dL (1.8-2.4) 01/23/20 04:56 Total Bilirubin 4.1 mg/dL (0.2-1.0) H 01/23/20 04:56 AST 49 U/L (15-37) H 01/23/20 04:56 ALT 48 U/L (12-78) 01/23/20 04:56 Alkaline Phosphatase 90 U/L (45-117) 01/23/20 04:56 Home Medications: Folic Acid [Folic Acid*] 1 mg PO DAILY 08/01/12 Apixaban [Eliquis *] 1 tab PO BID 08/12/18 Promethazine Tab [Phenergan*] 25 mg PO Q4H PRN #30 tab 11/15/19 Hydromorphone HCl [Dilaudid] 8 mg PO BID 01/22/20 hydrOXYzine HCL [Atarax*] 25 mg PO Q6HP PRN 01/22/20 Patient Discharge Instructions: -OK TO DC IV AND DC HOME. -FOLLOW-UP WITH PRIMARY CARE PROVIDER IN 1-2 WEEKS. -FOLLOW-UP WITH HEMATOLOGY IN 1-2 WEEKS. - RETURN TO THE ER IF SYMPTOMS WORSEN. -CALL or TEXT DR. MASON AT [phone] IF ANY QUESTIONS REGARDING HOSPITAL STAY. -PLEASE CALL THE FLOOR AT [phone] IF ANY MEDICATION OR NURSING QUESTIONS. Diet: Regular Activity: Fall precautions Time spent managing pt's care (in minutes): 35
[2020-01-24 17:25] VITALS: BP 110/66; TEMP 97.4
[2020-01-24] MEDS ORDERED: HEPARIN 500 UNIT/5 ML SYR IV PRN (17:33)
[2020-01-24] MEDS ORDERED: HYDROMORPHONE ORAL 4 MG TAB PO SCH (21:00)
== END 2020-01-24 18:21 | disposition home or self-care (01) | DRG 812 ==
LOC: ER 06:37 → ERHOLD 08:12 → 2ND 10:54
PROVIDERS: ADMIT Hospitalist; ATTEND Hospitalist
PROC: 30233N1 Transfusion of Nonautologous Red Blood Cells into Peripheral Vein, Percutaneous Approach (ICD-10-PCS; principal; 2020-01-23)
DX: D57.00 Hb-SS disease with crisis, unspecified (principal); D72.829 Elevated white blood cell count, unspecified; Z88.8 Allergy status to other drugs, medicaments and biological substances; Z79.01 Long term (current) use of anticoagulants; Z79.899 Other long term (current) drug therapy; Z20.828 Contact with and (suspected) exposure to other viral communicable diseases
CPT/HCPCS: 36415; 36430; 71045; 76705; 80048; 80053; 80076; 80307; 81003; 81025; 83735; 84100; 84484; 85014; 85018; 85025; 85044; 85610; 85730; 86850; 86900; 86901; 93005; 99285; J0696; J1170; J1200; J1642; J1650; J2550; J7030; J7050; P9016; Q0169; U0002

== ENCOUNTER 2020-04-10 01:10 | Emergency (ER) | payer OTHER ==
--- OUTSIDE RECORDS SUMMARY | 2020-04-10 01:13 | XMS REPORT | Clinical Summary ---
:1990 Author Organization [facility] Address [address] [place] [address] Care Team Providers Name Role Phone Tasha [...] Team Description 11/14/2019 Lab Requisition Lab after 04/10/2019 Family History Medical History Relation Name Comments [...] Assigned at Date Recorded Not on file Last Filed Vital Signs Not on file Plan of Treatment Health Maintenance Due Date Last Done Comments PNEUMOCOCCAL VACCINE 0-64 YRS (1 of 3 - PCV13) 09/05/1997 LIPID PANEL 2011 CERVICAL CANCER SCREENING PAP ONLY (Age 21-65) 09/05/2012 INFLUENZA VACCINE (#1) 2020 Procedures Procedure Name Priority Date/Time Associated Diagnosis Comme nts SARS-COV2/RT-PCR Routine 11/13/2019 5:40 AM Resu lts for this ([facility]) CDT procedure are in the results section. after 04/10/2019 Results SARS-CoV2/RT-PCR ([facility]) (11/13/2019 5:40 AM CDT) SARS-COV2/RT-PCR Negative Not Detected, [facility] Negative [facility] SARS-COV-2 [facility] PERFORMING LAB [facility] Specimen Other - Nasopharyngeal wall structure (b fam structure) Narrative Performed At Negative results do not preclude SARS-CoV-2 [facility] infection and should not be used as [...] the Act. Fact Sheet for Healthcare Providers: https://www.HashTip/Documents/Xpert%20Xpre ss%20SARS%20CoV-2/Fact%20Sheets/3023802%20SAR S-COV-2%20HEALTHCARE%20PROVIDERS%20FACT%20SHEE T.pdf Fact Sheet for Healthcare Patients: https://www.HashTip/Documents/Xpert%20Xpre ss%20SARS%20CoV-2/Fact%20Sheets/3023801%20SAR S-COV-2%20PATIENT%20FACT%20SHEET.pdf Performing Laboratory: [address] [place] [address] Performing Organization Address City/State/Zipcode Phone Number [address] [address] CENTER after 04/10/2019 Insurance Payer Benefit Plan Subscriber ID Effective Dates Phone Address Type / Group MEDICAID - [facility] COMM [id number] 2015-Jose Juan Cabrera edicaid MEDICAID [id number] [employer] [facility] Advance Directives For more information, please contact: [phone] Code Status Date Activated Date Inactivated Comments Full Code 08/02/2018 7:12 AM 08/10/2018 4:40 PM This code status was determined by: Patient Full Code 07/10/2015 11:45 PM 07/14/2015 10:45 PM This code status was determined by: Patient
--- OUTSIDE RECORDS SUMMARY | 2020-04-10 01:15 | XMS REPORT | Continuity of Care Document ---
:1990 Author Organization [facility] t Address [address] [place] [address] Support Name Relationship Address Phone DENI Unavailable [phone] [address] [facility] [phone] [address] [facility] [place] [address] DENI Unavailable [id number] [email or web address] [facility] [phone] [address] [facility] [place] [address] JORDAN Unavailable [phone] [employer] [facility] [phone] [place] [address] JORDAN Unavailable [address] [employer] [facility] [phone] [place] [address] CLINTON DELEON MD E Admitting Provider [address] [facility] [address] [place] [address] JESSICA SIDDIQUI Primary Care Physician [address] [place] [address] [address] [place] [address] VIJAYA MULLEN, A Emergency Provider [address] [phone] [place] [address] NAIMA MULLEN Attending Provider [address] [place] [address] JORDAN Next of Kin N Y [address] [place] [address] IZZY MULLEN, E Emergency Provider [address] [facility] [address] [place] [address] PHYSICIAN Primary Care Physician Unavailable Unavailab chrissy GRISSOM MD, MD Emergency Provider [address] [place] [address] [phone] [place] [address] OTHER, NAME IN NOTES Primary Care Physician Unavailable Sylvie caity SHIN MD, MD Emergency Provider [address] [facility] [phone] [place] [address] ISABELLA MULLEN, MORE Admitting Provider [address] [place] [address] FRANCIS Primary Care Physician [address] [facility] [phone] [place] [address] [address] [place] [address] Care Team Providers Name Role Phone Shaikh PAZ, Tasha Primary Care Physician ERIBERTO WOODRUFF Attending Clinician Unavailable Antonia CARTER Admitting Clinician Unavailable Payers Payer Name Policy Type Policy Effective Date Expiration Date Sour ce Number MEDICAID - [id number] 2015 [facility] MEDICAID MGD 00:00:00 - Medical CAREMCD [facility] STAR [id number]/2015-PresentMedic aid Contracted Problems Condition Condition Condition Status Onset Resolution Last Treating Co mments Source Name Details Category Date Date Treatment Clinician Date Leukocytos Leukocytos Disease Active [facility] - 00:[facility]: Medical 00 [place] Pneumonia Pneumonia Disease Active [facility] 00 [place] 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[facility] cell 2-29 [facility] - anemia anemia 00:00: Medical 00 [place] 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[facility] cell 2-28 [facility] - crisis crisis 00:00: Medical 00 [place] Allergies, Adverse Reactions, Alerts Allergy Allergy Status Severity Reaction(s) Onset Inactive Treating Comm ents Source Name Type Date Date Clinician Ondanset Drug Active Nausea And [facility] Hcl Intolera Vomiting 2-28 [facility] - (Pf) nce 00:00: Medical 00 [place] morphine DA Active [facility] 3[facility]11 [place] 00:00: d 00 [facility] TEGEDERM DA Active [facility] DRESSING 8-23 [place] 00:00: d 00 [facility] Family History Family Member Diagnosis Comments Start Date Stop Date Source Natural brother Unremarkable [facility] Natural father Seizures [facility] Natural father Sickle cell trait [facility] Natural mother Sickle cell trait [facility] Natural sister Unremarkable [facility] Social History Social Habit Start Date Stop Date Quantity Comments Source Sex Assigned At [facility] Tobacco use and 2018-08-02 2018-08-[address] [facility] - exposure 00:00:00 00:00:00 [facility] Center Alcohol intake 2018-08-02 2018-08-[address] [facility] - 00:00:00 00:00:00 non-drinker of Medical Ce nter alcohol (finding) Smoking Status Start Date Stop Date Source Never smoker [facility] St kes - [facility] Medications Ordered Filled Start Stop Current Ordering Indication Dosage Frequency Signature Comments Components Source Medication Medication Date Date Medication? Clinician (SIG) Name Name folic acid Yes folate 2mg QD Take [address] (FOLVITE) 1 3-31 deficiency by mouth [facility] - MG tablet 14:39: daily. Medica l 58 Center penicillin Yes 250mg Take [address] v potassium 3-31 mg by [facility] - (VEETID) 14:39: mouth Medical 250 MG 58 every 12 Center tablet (twelve) hours. HYDROmorpho Yes 8mg Take [address] ne 3-31 by mouth [facility] - (DILAUDID) 14:39: every 6 Medi rita 8 MG tablet 58 (six) Center hours as needed for Pain. apixaban Yes 2.5mg Q.5D Take 2.[address] (ELIQUIS) 3-31 mg by [facility] - 2.5 mg Tab 14:39: mouth 2 Medi rita tablet 58 (two) Center times daily. ALPRAZolam Yes 1mg Take [address] (XANAX) 1 3-31 by mouth 2 Luke s - MG tablet 14:39: (two) Medical 58 times Center daily as needed for Anxiety. VITAMIN D2 Yes 1{capsu Q7D Take [address] 50,000 unit 2-25 le} capsule by Ariana kes - capsule 00:00: mouth once Medi rita 00 a week. Center PROAIR HFA 2018- Yes 1{puff} Inhale [address] 90 2-22 puff by [facility]ukes - mcg/actuati 00:00: mouth via M edical on inhaler 00 inhaler Center every 6 (six) hours as needed. prochlorper 2019- Yes 1{tbl} Take [address] azine 1-14 tablet by [place] - (COMPAZINE) 00:00: mouth Medic al 10 MG 00 every 8 Center tablet (eight) hours as needed nausea. Procedures Procedure Date / Time Performed Performing Clinician Sourc e SARS-COV2/RT-PCR ([facility] 2019-11-13 05:40:00 [facility] Center Plan of Care Planned Activity Planned Date Details Comments Source Future Scheduled 2020-01-12 INFLUENZA VACCINE (#1) [facility] - Test 00:00:00 [code = INFLUENZA Medical Ce nter VACCINE (#1)] Future Scheduled 2012-09-[address] [facility] - Test 00:00:00 malignant neoplasm of Medica l Center cervix (procedure) [code = 408235315] Future Scheduled [address] [facility] - Test 00:00:00 (procedure) [code = [facility] 37712280] Future Scheduled 1997-09-[address] [facility] - Test 00:00:00 0-64 YRS (1 of 3 - Medical C enter PCV13) [code = PNEUMOCOCCAL VACCINE 0-64 YRS (1 of 3 - PCV13)] Encounters Start End Encounter Admission Attending Care [...] MHBL 06:56:00 06:56:00 2019-01-03 2019-01-03 Emergency E [facility]BL [address] [facility] 04:27:00 04:27:00 2018-07-20 2018-07-20 [facility] 10:30:00 10:30:00 Results Test Description Test Time Test Comments Results Result Comments Source SARS-CoV2/RT-PCR ([facility] & Ref Labs) 2019-11-14 17:47:00 Test Item Value Reference Range Interpretation Comme nts SARS-COV2/RT-PCR (test code = Negative Not Detected, Negative 77915-1) SARS-COV-2 PERFORMING LAB [facility] (test code = 34274-0) RUSLAN (test code = RUSLAN) Negative results [...] of the Act. Fact Sheet for Healthcare Providers:https://www.TeraFirrma .EstatesDirect.com/Documents/Xpert%20Xpress %20SARS%20CoV-2/Fact%20Sheets /302-1102%78ZPXT-EST-7%20HEAL THCARE%20PROVIDERS%20FACT%20S HEET.pdf Fact Sheet for Healthcare Patients:https://www.PageLever/Documents/Xpert%20Xpress% 20SARS%20CoV-2/Fact%20Sheets/ 3023801%02GXIB-GRI-9%20PATIE NT%20FACT%20SHEET.pdf Performing Laboratory:[facility] [place] [address] [facility] & REF LABS)2019-11-14 17:47:00 Test Item Value Reference Range Interpretation Comments SARS-COV2/RT-PCR (test code = Negative Not Detected, Negative 1969739) SARS-COV-2 PERFORMING LAB [facility] (test code = 3031313) Negative results do not preclude SARS-CoV-2 infection [...] of the Act.Fact Sheet for Healthcare Pro viders:https://www.The New Hive/Documents/Xpert%20Xpress%20SARS%20CoV-2/Fact%20Sh eets/3023802%29KFKR-CJB-1%20HEALTHCARE%20PROVIDERS%20FACT%20SHEET.pdfFact Sheet for Healthcare Patients:https://www.[employer]/Documents/Xpert%20Xpress%20SARS%20CoV-2/Fact%20Sheets/3023801%20SARS-COV -2%20PATIENT%20FACT%20SHEET.pdfPerforming Laboratory:[facility], [place] [address]JSI W/PLT COUNT & AUTO DIFFERENTIAL 2018-08-10 08:25:00 [...] 3438) Received comment: User comments: Slide comments:RETICULOCYTE [id number] 08:06:00 Test Item Value Reference Range Interpretation Comments RETICULOCYTE COUNT PCT (BEAKER) (test 25.0 % 0.5-1.7 H code = 575) CBC W/PLT COUNT & AUTO [id number] 09:27:00 Test Item Value Reference Range Interpretation [...] 3438) Received comment: User comments: Slide comments:RETICULOCYTE [id number] 05:01:00 Test Item Value Reference Range Interpretation Comments RETICULOCYTE COUNT PCT (BEAKER) (test 21.6 % 0.5-1.7 H code = 575) CBC W/PLT COUNT & AUTO [id number] 15:17:00 Test Item Value Reference Range Interpretation [...] H (BEAKER) (test code = 413) RETICULOCYTE [id number] 08:44:00 Test Item Value Reference Range Interpretation Comments RETICULOCYTE COUNT PCT (BEAKER) (test 23.8 % 0.5-1.7 H code = 575) BLOOD [id number] 14:01:00 Test Item Value Reference Range Interpretation Comments CULTURE (BEAKER) (test No growth in 5 days code = 1095) BLOOD [id number] 12:01:00 Test Item Value Reference Range Interpretation Comments CULTURE (BEAKER) (test No growth in 5 days code = 1095) CBC W/PLT COUNT & AUTO [id number] 11:38:00 Test Item Value Reference Range Interpretation [...] 3438) Received comment: User comments: Slide comments:RETICULOCYTE [id number] 07:44:00 Test Item Value Reference Range Interpretation Comments RETICULOCYTE COUNT PCT (BEAKER) (test 27.0 % 0.5-1.7 H code = 575) RETICULOCYTE [id number] 07:19:00 Test Item Value Reference Range Interpretation Comments RETICULOCYTE COUNT PCT (BEAKER) (test 22.7 % 0.5-1.7 H code = 575) CBC W/PLT COUNT & AUTO [id number] 12:07:00 Test Item Value Reference Range Interpretation [...] 3438) Received comment: User comments: Slide comments:RETICULOCYTE [id number] 06:14:00 Test Item Value Reference Range Interpretation Comments RETICULOCYTE COUNT PCT (BEAKER) (test 21.9 % 0.5-1.7 H code = 575) [id number] 06:02:00 Test Item Value Reference Range Interpretation Comments PHOSPHORUS (BEAKER) (test code = 3.8 mg/dL 2.3-4.7 604) [id number] 06:02:00 Test Item Value Reference Range Interpretation Comments MAGNESIUM (BEAKER) (test code = 1.8 mg/dL 1.6-2.6 627) BASIC METABOLIC [id number] 06:02:00 Test Item Value Reference Range Interpretation [...] Specimen moderately ictericCBC W/PLT COUNT & AUTO [id number] 09:09:00 Test Item Value Reference Range Interpretation [...] = 3438) Received comment: User comments: Slide comments:[id number] 04:11:00 Test Item Value Reference Range Interpretation Comments PHOSPHORUS (BEAKER) (test code = 3.3 mg/dL 2.3-4.7 604) [id number] 04:11:00 Test Item Value Reference Range Interpretation Comments MAGNESIUM (BEAKER) (test code = 1.6 mg/dL 1.6-2.6 627) BASIC METABOLIC [id number] 04:11:00 Test Item Value Reference Range Interpretation [...] FOR DIALYSIS PATIEN TS. Specimen slightly ictericRETICULOCYTE [id number] 03:54:00 Test Item Value Reference Range Interpretation Comments RETICULOCYTE COUNT PCT (BEAKER) (test 20.4 % 0.5-1.7 H code = 575) CBC W/PLT COUNT & AUTO [id number] 18:30:00 Test Item Value Reference Range Interpretation [...] = 413) CBC W/PLT COUNT & AUTO [id number] 10:51:00 Test Item Value Reference Range Interpretation [...] 3438) Received comment: User comments: Slide comments:RETICULOCYTE [id number] 10:08:00 Test Item Value Reference Range Interpretation Comments RETICULOCYTE COUNT PCT (BEAKER) (test 14.4 % 0.5-1.7 H code = 575) CBC W/PLT COUNT & AUTO [id number] 09:30:00 Test Item Value Reference Range Interpretation [...] = 3438) Received comment: User comments: Slide comments:[id number] 03:32:00 Test Item Value Reference Range Interpretation Comments PHOSPHORUS (BEAKER) (test code = 3.5 mg/dL 2.3-4.7 604) [id number] 03:32:00 Test Item Value Reference Range Interpretation Comments MAGNESIUM (BEAKER) (test code = 1.8 mg/dL 1.6-2.6 627) BASIC METABOLIC [id number] 03:32:00 Test Item Value Reference Range Interpretation [...] ictericCT, CHEST WITH IV CONTRAST- PE TEST [id number] 14:01:00FINAL REPORT CT scan of the chest. [...] MDReport Verified Date/Time: 08/02/2018 14:01:29 Reading Location: [facility] C013X [facility] Consult Reading Room URINALYSIS W/ REFLEX URINE [id number] 11:27:00 Test Item Value Reference Range Interpretation [...] 516) SOURCE(BEAKER) (test code = 2795) SCREEN, [id number] 11:15:00 Test Item Value Reference Range Interpretation Comments TEST URINE (BEAKER) (test Negative code = 583) RETICULOCYTE [id number] 04:43:00 Test Item Value Reference Range Interpretation Comments RETICULOCYTE COUNT PCT (BEAKER) (test 13.2 % 0.5-1.7 H code = 575) RAD, CHEST, 2 [id number] 03:54:00Reason for exam:->SICKLE CELL PAIN CRISISIs the [...] Ferris MDReport Verified Date/Time: 08/02/2018 03:54:52Reading Location: [address] Reading Room CBC W/PLT COUNT & [...] (BEAKER) (test code = 417) COMPREHENSIVE METABOLIC [id number] 02:42:00 Test Item Value Reference Range Interpretation [...] = 358) GLUCOSE RANDOM 104 mg/dL 70-110 (BEAKER) (test code = 652) CALCIUM (BEAKER) 9.5 mg/dL 8.5-10.5 (test code = 697) AST (SGOT) (BEAKER) 25 U/L 5-40 (test code = 353) ALT (SGPT) (BEAKER) 18 U/L 5-50 (test code = 347) EGFR (BEAKER) (test 221 ESTIMATE D GFR IS code = 1092) mL/min/1.73 sq NOT ACCURA TE m CREATININE CLEARANCE IN PREDICTING GLOMERULAR FILTRATION RATE . ESTIMATED GFR I S NOT APPLICABLE FOR DIALYSIS PATIEN TS.
--- OUTSIDE RECORDS SUMMARY | 2020-04-10 01:15 | XMS REPORT | Continuity of Care Document ---
:1990 Author Organization [facility] Address [address] [place] [address] Care Team Providers Name Role Phone PENNY Primary Care Physician Allergies, Adverse Reactions, Alerts Allergen Type Severity Reaction Last Verified Status Updated Sulfabenzamide Allergy Severe July 16, Yes Acti ve ([id number]) 2017 Morphine Allergy Moderate ITCHING September 17, Yes Active ([id number]) 2019 Sulfacetamide Allergy Severe July 16, Yes Activ e ([id number]) 2017 Sulfathiazole Allergy Severe July 16, Yes Activ e ([id number]) 2018 Urea ([id number]) Allergy Severe July 16, Yes Active 2018 Ondansetron Allergy Severe August 11, Yes Active ([id number]) 2014 Medications Medication Status Dose Units Route Sig Qty Days Start End Instruct ions Date Date Azithromycin Active 1 ORAL As 1 KATHLEEN E 2 Directe r , TABLETS ON d for 2019 DAY 1, THEN 1 Infecti 9:42pm TABLET ON on DAYS 2-5 Folic Acid Active 1 ORAL Daily 90 Hydromorphone Active 8 ORAL Every 6 Hcl Hours As Needed Acetamin/Codei Discontinu 1 ORAL Every November Dece mbe ne 300/30 Mg * ed Hours 9, r 26, As 2017 2017 Needed 1:59pm for Pain Acetaminophen Discontinu 650 ORAL Every 26 March Calixto bruna ed 4-6 16th, 27th, Hours 2013 2014 As 12:10pm Needed as needed for Pain Scale 1-3 Acetaminophen Discontinu 1 ORAL Every 4 September W/ Codeine #3 ed Hrs As 13, 31st, * Needed 2014 2014 as 11:57am needed for Pain Scale 3-7 Acetaminophen Discontinu 1 ORAL Every 4 August W/ Codeine #3 ed Hrs As 4th, , * Needed 2014 2014 12:36pm Alprazolam Discontinu 1 ORAL Twice A 60 mb ed Day r , 2017 Amoxicillin/Cl Discontinu 1 ORAL Twice A 14 June F ebruar avulanate ed Day for 8th, y 21st, Potassium Leukocy 2016 2016 tosis 12:21pm Amoxicillin/Cl Discontinu 1 ORAL Twice A 26 May Ma y avulanate ed Day 2nd, 3rd, Potassium 2016 2015 12:12pm Apixaban Discontinu 2.5 ORAL Twice A 60 09 October ed Day , 2019 Apixaban Discontinu 5 ORAL Twice A 60 March ed Day for , 26, Pulmona 2017 2018 ry 1:40am Emb[place] m Benzonatate Discontinu 100 ORAL Every 6 April ed Hours 13, , As 2012 2013 Needed 2:09pm as needed for Cough Cefdinir Discontinu 300 ORAL Twice A 20 November ed Day for 4th, 8th, Bronchi 2018 2019 tis 10:40am Cefdinir Discontinu 1 ORAL Twice A 10 August ed Day for 30, , Bronchi 2018 2018 tis 11:32am Cefdinir Discontinu 1 ORAL Twice A 23 November [facility] ed Day for 9, r 26, Uti 2017 2017 1:59pm Cefdinir Discontinu 1 ORAL Twice A 20 22 March [facility] ed Day for 29, r 26th, Uri 2017 2017 1:40am Cefdinir Discontinu 1 ORAL Twice A July ed Day for 3rd, 6th, Infecti 2016 2018 on 1:16pm Cefdinir Discontinu 300 ORAL Every 21 April Februar ed 12 28th, y 21st, Hours 2015 2017 for 10:42am Pharyng itis Cefdinir Discontinu 300 ORAL Every July ed 12 , 26th, Hours 2013 2013 12:08pm Cefdinir Discontinu 300 ORAL Every April ed 12 13th, 3rd, Hours 2012 2013 2:09pm Dextromethorph Discontinu 1 ORAL Every 22 March Dec embe an-Guaifenesin ed 12 5th, r 23rd, * Hours 2014 2014 As 10:09am Needed Fluconazole Discontinu 1 ORAL For One 1 13 March Dece e ed Dose 30, r 26, Only 2017 2017 for 4:37pm Candidi asis Folic Acid Discontinu 2 ORAL Daily 11 April Decembe ed , r , 2015 2017 12:28pm Folic Acid Discontinu 2 ORAL Daily 90 Novembe ed r 19, 2015 Folic Acid Discontinu 1 ORAL Once April ed Daily 13, , 2012 2015 2:09pm Hydrocodone-Ac Discontinu 1 ORAL Every 6 20 October Octo anirudh etaminophen ed Hours 14th, 10th, 10/325MG* As 2013 2013 Needed 1:21pm Hydromorphone Discontinu 1 ORAL Every 4 60 November Hcl ed Hours , As 2017 Needed as needed for Ad Hydromorphone Discontinu 1 ORAL Three 60 Decemberua r Hcl ed Times , y 27, Daily 2014 2015 As 12:26pm Needed Levofloxacin Discontinu 1 ORAL Daily 10 Dece be ed r 30, r , 2015 2015 12:15pm Levofloxacin Discontinu 500 ORAL Once 19 March Dece be ed Daily , r , 2014 2014 10:09am Levofloxacin Discontinu 500 ORAL Daily 5 August ed 4th, , 2014 2014 12:36pm Levofloxacin Discontinu 500 ORAL Daily 10 Octob er ed r , , 2013 2013 4:04pm Levofloxacin Discontinu 500 ORAL Daily October ed 14, , 2013 2013 1:21pm Pantoprazole Discontinu 40 ORAL Daily Marchua ry Sodium ed 16, , 2013 2014 12:10pm Penicillin V Discontinu 250 ORAL Every Decembe Potassium ed 12 r 28th, Hours 2015 Penicillin V Discontinu 1 ORAL Twice A 40 Octobe r Potassium ed Day 2014 Rivaroxaban Discontinu 1 ORAL Daily 09 December ed 2017 Rivaroxaban Discontinu July ed 2017 Problems Active Problems Medical Problem Onset Date Status [id number] Active [id number] Active Leukocytosis Active Sickle cell pain crisis [...] Performed Status X-ray of chest, single view February 08, 2020 completed Relevant Diagnostic Tests and/or Laboratory Data Laboratory Results Test Date/Time Result Interpretation Reference Result Comment Performing Range Site White Blood Count January 4.0-11.5 [facility], [address] [facility] 85229 8:31pm Red Blood Count January 3.80-5.20 [facility] , 104 2019 [facility] 18603 8:31pm Hemoglobin January 10.5-15.7 [facility], 104 [address] [facility] 80976 8:31pm Hematocrit January 34.0-50.0 [facility], 2019 [facility] 81621 8:31pm Mean Corpuscular January 86-100 [facility], 104 Volume 2019 [facility] 38825 8:31pm Mean Corpuscular January 26.2-33.4 [facility], 104 [facility] Hemoglobin 2019 [facility] 28441 8:31pm Mean Corpuscular January 30-34 [facility], 104 [facility] Hemoglobin 2019 [facility] [address]128 Concent 8:31pm Red Cell January 12.0-15.5 [facility], 104 [facility] Distribution 2019 [facility] [address] Width 8:31pm Platelet Count January 165-450 [facility], 104 [facility] 2019 [facility] 60171 8:31pm Absolute Immature January MR , 104 Platelet Fraction 2019 [facility] 25188 8:31pm Immature Platelet Janine 0-8 [facility], [address] Fraction 2019 [facility] 03627 8:31pm Mean Platelet Janine 9.4-12.6 [facility], [address] Volume 2019 [facility] 57537 8:31pm Neutrophils Janine 37.0-80.0 [facility], [address] 2019 [facility] 70070 8:31pm Lymphocytes Janine 10-50 [facility], [address] (Manual) 2019 [facility] 40273 8:31pm Monocytes Janine 0-12 [facility], [address] (Manual) 2019 [facility] 75589 8:31pm Eosinophils Janine 0-7 [facility], [address] (Manual) 2019 [facility] 26030 8:31pm Nucleated Red Janine 0-0.2 [facility], [address] Blood Cells % 2019 [place] [address] 8:31pm Nucleated Red Janine 0 [facility], [address] Blood Cells # 2019 [place] [address] 8:31pm Platelet Estimate Janine [facility]DEQUATE MR , [address] 2019 [facility] 22317 8:31pm Polychromasia Janine [facility], [address] [facility] 69013 8:31pm Hypochromasia Janine [facility], [address] [facility] 62344 8:31pm Poikilocytosis Janine CALLED (SHYAM HYDE , 104 2019 A[facility]);[place] [address] 8:31pm RESULTS BROADCASTED TO (ED) BY (CT) Anisocytosis January CALLED (HSYAM CALVO, 104 2019 [facility]);[place] [id number] 8:31pm RESULTS BROADCASTED TO (ED) BY (CT) Macrocytosis January [facility], 1 04 2019 [facility] 43918 8:31pm Target Cells January [facility], 1 04 2019 [facility] 52554 8:31pm Ovalocytes Janine CALLED (SHYAM CALVO, 10 4 2019 [facility]);[place] [id number] 8:31pm RESULTS BROADCASTED TO (ED) BY (CT) Smudge Cells January [facility], 1 2019 [facility] 78762 8:31pm Giant Platelets January [facility] , 104 2019 [facility] 45574 8:31pm Sickle Cells January [facility], 2019 (ARNAV);[place] [facility] [address] 8:31pm wilfred Critical RESULTS to (ED) By (CT) Random Glucose January 74-106 [facility], 2019 [facility] 21451 8:31pm Blood Urea January 16- [facility], [address] Nitrogen 2019 [facility] 68568 8:31pm Serum Osmolality January 280-300 [facility], ST 2019 [facility] 51996 8:31pm Creatinine January 0.50-0.90 TEST RESULT [facility], 2019 [facility] 03468 8:31pm DUE TO ICTERIC SPECIMEN. Glomerular January GFR RESULTS ARE [facility], Filtration Rate 2019 REPORTED IN [place] [id number] Calc 8:31pm mL/min/1.73m2.N ormal GFR: >60mL/minModera tely decreased GFR: 30-59 mL/minSeverely decreased GFR: 15-29 mL/minKidney Failure (or Dialysis): <15 mL/minThe calculated eGFR is not valid for patients younger than 18 years or older than 75 years. BUN/Creatinine January 22 [facility], 104 Ratio 2019 [facility] 63328 8:31pm Sodium Level January 135-145 [facility], 2019 [facility] 17923 8:31pm Potassium Level January 3.5-5.2 [facility] , 2019 [facility] 33832 8:31pm Chloride Level January 98-108 [facility], 2019 [facility] 99487 8:31pm Carbon Dioxide January 21-32 [facility], 104 Level 2019 [facility] 71252 8:31pm Anion Gap January 22- [facility], 104 2019 [facility] 33538 8:31pm Calcium Level January 8.6-10.0 [facility], 2019 [facility] 33892 8:31pm Magnesium Level Janine 1.6-2.6 [facility] , [address] 2019 [facility] 86495 8:31pm Total Protein Janine 6.6-8.7 [facility], 104 2019 [facility] 64751 8:31pm Albumin Janine 3.5-5.2 [facility], [address] [facility] 59530 8:31pm Globulin Janine [facility], [address] [facility] 92989 8:31pm Albumin/Globulin Janine >1.0 [facility] , [address] Ratio 2019 [facility] 25060 8:31pm Total Bilirubin Janine 0.0-1.2 [facility] , 104 [address] [facility] 02239 8:31pm Aspartate Amino Janine 15-32 [facility] , [address] Transf (AST/SGOT) 2019 [facility] 15979 8:31pm Alanine Janine 0-33 [facility], 104 Aminotransferase 2019 [facility] 28479 (ALT/SGPT) 8:31pm VI-Lnn-L-Type Janine 0-125 [facility], 104 [facility] Natriuretic 2019 [facility] [address] Peptide 8:31pm Total Alkaline Janine 35-105 [facility], 104 [facility] Phosphatase 2019 [facility] 60981 8:31pm Creatine Kinase Janine 20-180 [facility] , 104 [facility] 2019 [facility] 50466 8:31pm Troponin I Janine 0.0-0.5 Published [facility], 104 [facility] 2019 [facility] 0[address] 8:31pm studies have shown elevations of cTnI in patients with myocardial injury, as seen in unstable angina pectoris, cardiac contusions, and heart transplants. Elevations have also been seen in patients with rhabdomyolysis and polymyositis.El evated troponin levels point to myocardial injury, but are not necessarily indicative of an ischemic mechanism. The term NE should be used when there is evidence of cardiac damage, as detected by marker proteins in a clinical setting consistent with myocardial ischemia. If the clinical circumstance suggests that an ischemic mechanism is unlikely, other causes of cardiac injury should be considered.For diagnostic purposes, the results should always be assessed in conjunction with the patient's medical history, clinical examination and other findings. Creatine Kinase Janine 0.0-3.6 DIAGNOSTIC [facility], [address] 2019 CITERIA: [facility] 94801 8:31pm CKMB CKMB RELATIVE INDEX -----SUGGESTIVE OF NON-AMI < or = 5 N/AGRAY ZONE (INCONCLUSIVE) > 5 < or = 4SUGGESTIVE OF AMI >5 > 4 Myoglobin February 04 [facility], [address] 2019 [facility] 61422 8:31pm Health Concerns Health Concerns may be documented in an alternate section. Advance Directives Advance Directive Response Recorded Date/Time Advance Directives No January 29, 2016 12:37pm Advance Directive on File No January 5:52pm Directive to Physicians/Living No January 29, 2016 12:37pm Will Health Care Proxy No January 29, 2016 12:37pm Organ Donor No January 29, 2016 12:37pm Medical Power of It Systems Manager No January 12:37pm Chief Complaint and Reason for Visit Chief Complaint General Complaint Reason for Visit [id number] Encounters Encounter Location(s) Arrival/Admit Date Discharge/Depart Date Provider(s) Departed [place] February 07, February 08, 2020 AMARILIS BE PH, MD Emergency Room [place] [address] 5:31pm 10:19pm Ctr Assessments No Assessments Information Available Functional Status No Functional Status information available Goals Goals may be documented in an alternate section. Immunizations No Immunization Information Available Mental Status No Mental Status Information Available Medical Equipment No Medical Equipment Information available Insurance Providers Guarantor Gume Ortega Address [address] [facility] [address] Contact Info. Home Phone: Payer Policy Id Coverage Id Subscriber's Subscriber Effective Expi ration Name Id Date Date Lindsey [id number] [place] [id number] [facility] Gume Cabrera [place] Plan of Treatment Future Tests Future scheduled test information is unavailable Pending Tests Pending diagnostic test information is unavailable Future Visits Future appointment information is unavailable Referrals to Other Providers Reason for Referral Start Provider Provider Contact Provider Address Referral Date Information MORIS FRANCIS Work Phone: [phone] [facility] [address] [facility] [address] Future Procedures Future procedure information is unavailable Future Medications Future medication information is unavailable Patient Instructions Nonspecific Chest Pain, Adult Sickle Cell Testing Acute Bronchitis, Adult Social History Smoking Status Status Date of Observation Ex-smoker (finding) February 08, 2020 5:52pm Observation Status Observation Response Date of Response Hx Alcohol Use No September 18, 2019 6:15pm Hx Physical Abuse No February 08, 2020 5:52pm Assigned Sex Female Vital Signs Vital Reading Result Collection Date/Time Weight 156 [lb_av] February 08, 2020 5:52pm BMI (Body Mass Index) 28.5 kg/m2 February 07 5:52pm
[2020-04-10] MEDS ORDERED: NA CHLORIDE 0.9% 1,000 ML ONE ×2 (01:42→03:47)
[2020-04-10] MEDS ORDERED: PROMETHAZINE INJ 25 MG/ML AMP ONE (01:42)
[2020-04-10] MEDS ORDERED: HYDROMORPHONE HCL 1 MG/ML INJ ONE ×2 (01:42→03:47)
[2020-04-10] MEDS ORDERED: FOLIC ACID 5 MG/ML VIAL ONE (01:43)
[2020-04-10] MEDS ORDERED: NA CHLORIDE 0.9% 50 ML ONE (01:44)
[2020-04-10 02:38] LABS: Protime INR 1.06
[2020-04-10 02:44] LABS: C-Reactive Protein 6.21 mg/L (<3.00)
[2020-04-10 02:53] LABS: Absolute Lymphocytes (CBC) 6.3 K/uL (0.7-4.9)
[2020-04-10] MEDS ORDERED: DIPHENHYDRAMINE 50 MG/ML VIAL ONE (02:56)
[2020-04-10 03:00] LABS: ALT/SGPT 17 U/L (12-78); AST/SGOT 25 U/L (15-37); Albumin 3.9 g/dL (3.4-5.0); Alkaline Phosphatase 82 U/L (45-117); BUN Blood Urea Nitrogen 5 mg/dL (7-18); Bicarbonate 27 mmol/L (21-32); Bilirubin Direct 0.4 mg/dL (0-0.2); Bilirubin Total 4.1 mg/dL (0.2-1.0); Glucose Level 101 mg/dL (74-106); Magnesium 2.3 mg/dL (1.8-2.4); NT PRO-BNP 103 pg/mL (<125); Potassium 3.4 mmol/L (3.5-5.1); Protein, Total 7.4 g/dL (6.4-8.2); Sodium Level 140 mmol/L (136-145); Troponin (Emerg Dept Use Only) < 0.02 ng/mL (0.0-0.045)
[2020-04-10 03:01] LABS: Basophils % 1.7 % (0-1.3); Hematocrit 22.3 % (36.0-45.0); Lymphocytes % 43.5 % (15.3-44.8); MPV 8.9 fL (7.6-11.3); RBC Red Blood Cell Count 2.27 M/uL (3.86-4.86)
[2020-04-10 03:18] LABS: Anisocytosis 1+; Blood Morphology Comment NOTED (NOT SEEN); Hypochromasia 2+; Platelet Estimate ADEQ; Poikilocytosis 1+; White Blood Cell Scan OK (OK)
[2020-04-10 03:19] LABS: Elliptocytes 2+
--- NOTE | 2020-04-10 06:42 | EDPHYS ---
Physician Documentation [facility] Name: Gume Ortega Age: 29 yrs Sex: Female : 1990 Arrival Date: 04/10/2020 Time: 01:12 Bed 16 Private MD: ED Physician Adriel Mcfadden HPI: 04/10 01:28 This 29 yrs old Black Female presents to ER via EMS with complaints of Sickle Cell snw Crisis. 01:28 Pt with generalized pain, sickle cell disease.. Onset: The symptoms/episode snw began/occurred suddenly, today. Severity of symptoms: At their worst the symptoms were moderate severe in the emergency department the symptoms are unchanged. The patient has experienced similar episodes in the past, chronically. sees PCP in [place]. Historical: - Allergies: 01:18 Zofran; lp1 - Home Meds: 01:18 Dilaudid 8 mg Oral tab 1 tab every 6 hours [Active]; Eliquis 2.5 mg Oral tab 1 tab 2 lp1 times per day [Active]; folic acid 800 mcg Oral tab 1 tab once daily [Active]; - PMHx: 01:18 blood clot in lung; Sickle Cell; lp1 - Immunization history:: Adult Immunizations up to date. - Social history:: Smoking status: Patient denies any tobacco usage or history of. Patient uses street drugs, marijuana. ROS: 01:22 Constitutional: Negative for fever, chills, and weight loss, bodyaches started this am snw but it didn't seem too bad. Pt states all of the sudden she had severe pain everywhere. Last po dilaudid yesterday. Pt is taking folate, eliquis, and two different sickle cell "sprinkles" Exam: 01:20 Constitutional: This is a well developed, well nourished patient who is awake, alert, snw and in no acute distress. Head/Face: Normocephalic, atraumatic. Eyes: Pupils equal round and reactive to light, extra-ocular motions intact. Lids and lashes normal. Conjunctiva and sclera are non-icteric and not injected. Cornea within normal limits. Periorbital areas with no swelling, redness, or edema. ENT: Nares patent. No nasal discharge, no septal abnormalities noted. Tympanic membranes are normal and external auditory canals are clear. Oropharynx with no redness, swelling, or masses, exudates, or evidence of obstruction, uvula midline. Mucous membranes moist. Neck: Trachea midline, no thyromegaly or masses palpated, and no cervical lymphadenopathy. Supple, full range of motion without nuchal rigidity, or vertebral point tenderness. No Meningismus. Chest/axilla: Normal chest wall appearance and motion. Nontender with no deformity. No lesions are appreciated. Cardiovascular: Regular rate and rhythm with a normal S1 and S2. No gallops, murmurs, or rubs. Normal PMI, no JVD. No pulse deficits. Respiratory: Lungs have equal breath sounds bilaterally, clear to auscultation and percussion. No rales, rhonchi or wheezes noted. No increased work of breathing, no retractions or nasal flaring. Abdomen/GI: Soft, non-tender, with normal bowel sounds. No distension or tympany. No guarding or rebound. No evidence of tenderness throughout. Back: No spinal tenderness. No costovertebral tenderness. Full range of motion. Skin: Warm, dry with normal turgor. Normal color with no rashes, no lesions, and no evidence of cellulitis. MS/ Extremity: Pulses equal, no cyanosis. Neurovascular intact. Full, normal range of motion. Neuro: Awake and alert, GCS 15, oriented to person, place, time, and situation. Cranial nerves II-XII grossly intact. Motor strength 5/5 in all extremities. Sensory grossly intact. Cerebellar exam normal. Normal gait. Psych: Awake, alert, with orientation to person, place and time. Behavior, mood, and affect are within normal limits. 01:39 ECG was reviewed by the Attending Physician. [facility] Vital Signs: 01:15 BP 117 / 76; Pulse 73; Resp 18; Temp 98.4(O); Pulse Ox 97% on R/A; Weight 69.4 kg (R); lp1 Height 5 ft. 2 in. (157.48 cm); Pain 10/10; 03:30 BP 119 / 47; Pulse 60; Resp 16; Pulse Ox 100% on 2 lpm NC; lp1 04:00 BP 112 / 41; Pulse 84; Resp 14; Pulse Ox 100% on 2 lpm NC; lp1 04:59 BP 104 / 57; Pulse 56; Resp 14; Pulse Ox 100% on 2 lpm NC; lp1 05:46 BP 88 / 64; Pulse 60; Resp 14; Pulse Ox 100% on 2 lpm NC; Pain 7/10; lp1 06:11 BP 98 / 54; Pulse 64; Resp 16; Pulse Ox 100% on 2 lpm NC; lp1 06:36 BP 95 / 57; Pulse 61; Resp 16; Pulse Ox 100% on 2 lpm NC; lp1 06:42 BP 103 / 59; Pulse 60; Resp 16; Pulse Ox 99% on R/A; lp1 01:15 Body Mass Index 27.98 (69.40 kg, 157.48 cm) lp1 MDM: 01:55 Patient medically screened. 04/10 01:17 Order name: Basic Metabolic Panel; Complete Time: 03:20 04/10 01:17 Order name: CBC with Diff; Complete Time: 03:20 04/10 01:17 Order name: LFT's; Complete Time: 03:20 04/10 01:17 Order name: Magnesium; Complete Time: 03:20 04/10 01:17 Order name: NT PRO-BNP; Complete Time: 03:20 04/10 01:17 Order name: PT-INR; Complete Time: 03:20 04/10 01:17 Order name: Troponin (emerg Dept Use Only); Complete Time: 03:20 04/10 01:17 Order name: Retic Count; Complete Time: 03:20 04/10 01:19 Order name: CRP; Complete Time: 03:20 04/10 01:19 Order name: Procalcitonin 04/10 01:19 Order name: Blood Culture Adult (2) 04/10 01:17 Order name: XRAY Chest (1 view) 04/10 01:17 Order name: EKG; Complete Time: 01:17 04/10 01:17 Order name: Cardiac monitoring; Complete Time: 01:25 04/10 01:17 Order name: EKG - Nurse/Tech; Complete Time: 02:12 04/10 01:17 Order name: IV Saline Lock; Complete Time: 02:12 04/10 01:19 Order name: Lipase; Complete Time: 03:20 04/10 01:20 Order name: COVID-19 snw 04/10 03:04 Order name: CBC Smear Scan; Complete Time: 03:20 EDMS 04/10 01:17 Order name: Labs collected and sent; Complete Time: 02:12 snw 04/10 01:17 Order name: O2 Per Protocol; Complete Time: 01:25 snw 04/10 01:17 Order name: O2 Sat Monitoring; Complete Time: 01:25 snw EC:39 Rate is 57 beats/min. Rhythm is regular. QRS [place] is Normal. MS interval is normal. QRS snw interval is normal. QT interval is normal. T waves are Normal. No ST changes noted. Clinical impression: Sinus bradycardia. Administered Medications: 01:50 Drug: foLIC Acid 1 mg Route: IVPB; Site: Port-a-cath; lp1 02:30 Follow up: IV Status: Completed infusion lp1 01:50 Drug: Dilaudid 1 mg {Note: RASS 0.} Route: IVP; Site: Port-a-cath; lp1 03:00 Follow up: Response: No adverse reaction; No change in condition lp1 01:50 Drug: NS 0.9% 1000 ml Route: IV; Rate: 1 bolus; Site: Port-a-cath; lp1 03:30 Follow up: IV Status: Completed infusion; IV Intake: 1000ml lp1 01:50 Drug: Phenergan 25 mg Route: IVP; Site: Port-a-cath; lp1 03:15 Follow up: Response: No change in condition lp1 02:45 Drug: Benadryl 25 mg Route: IVP; Site: Port-a-cath; lp1 03:30 Follow up: Response: No adverse reaction lp1 03:35 Drug: Dilaudid 1 mg Route: IVP; Site: Port-a-cath; sg 04:30 Follow up: Response: No adverse reaction lp1 03:35 Drug: NS 0.9% 1000 ml Route: IV; Rate: 1000 ml; Site: Port-a-cath; sg 05:15 Follow up: IV Status: Completed infusion; IV Intake: 1000ml lp1 06:55 Drug: Hep-Lock 100 units {Note: For removal of port; per patient, given with removal of lp1 access.} Route: IVP; Site: Port-a-cath; 06:55 Follow up: Response: No adverse reaction lp1 Disposition: 06:41 Co-signature as Attending Physician, Adriel Mcfadden MD. [email or web address] Disposition: 04/10/20 06:42 Discharged to Home. Impression: Sickle Cell Pain Crisis. - Condition is Stable. - Discharge Instructions: Sickle Cell Anemia, Adult, [id number]. - Medication Reconciliation Form, Thank You Letter, Antibiotic Education, Prescription Opioid Use form. - Follow up: Private Physician; When: 1 - 2 days; Reason: Worsening of condition, Recheck today's complaints, Continuance of care, Re-evaluation by your physician. - Problem is an acute exacerbation. - Symptoms have improved. Signatures: Dispatcher [employer] EDMS Reyes Richards, RN RN Brooke Laureano, SENIOR MEDICAL BILLING SPECIALIST-C SENIOR MEDICAL BILLING SPECIALIST-Csnw Noy Pretty RN RN lp1 Adriel Mcfadden MD MD 7 Corrections: (The following items were deleted from the chart) 07:21 06:42 04/10/2020 06:42 Discharged to Home. Impression: Sickle Cell Pain Crisis. lp1 Condition is Stable. Forms are Medication Reconciliation Form, Thank You Letter, Antibiotic Education, Prescription Opioid Use. Follow up: Private Physician; When: 1 - 2 days; Reason: Worsening of condition, Recheck today's complaints, Continuance of care, Re-evaluation by your physician. Problem is an acute exacerbation. Symptoms have improved. [facility]
--- NOTE | 2020-04-10 06:42 | ER ---
Nurse's Notes [facility] Name: Gume Ortega Age: 29 yrs Sex: Female : 1990 Arrival Date: 04/10/2020 Time: 01:12 Bed 16 Private MD: Diagnosis: Sickle Cell Pain Crisis Presentation: 04/10 01:15 Chief complaint: EMS states: Called for patient with hx of sickle cell crisis, reports lp1 minor pain throughout day, but has become severe tonight. Coronavirus screen: Client denies travel out of the [place] in the last 14 days. At this time, the client does not indicate any symptoms associated with coronavirus-19. Ebola Screen: No symptoms or risks identified at this time. Initial Sepsis Screen: Does the patient meet any 2 criteria? No. Patient's initial sepsis screen is negative. Does the patient have a suspected source of infection? No. Patient's initial sepsis screen is negative. Risk Assessment: Do you want to hurt yourself or someone else? Patient reports no desire to harm self or others. Onset of symptoms was April 09, 2020. 01:15 Method Of Arrival: EMS: [facility] lp1 01:15 Acuity: MARILUZ 3 lp1 Historical: - Allergies: 01:18 Zofran; lp1 - Home Meds: 01:18 Dilaudid 8 mg Oral tab 1 tab every 6 hours [Active]; Eliquis 2.5 mg Oral tab 1 tab 2 lp1 times per day [Active]; folic acid 800 mcg Oral tab 1 tab once daily [Active]; - PMHx: 01:18 blood clot in lung; Sickle Cell; lp1 - Immunization history:: Adult Immunizations up to date. - Social history:: Smoking status: Patient denies any tobacco usage or history of. Patient uses street drugs, marijuana. Screenin:18 Abuse screen: Denies threats or abuse. Denies injuries from another. Nutritional lp1 screening: No deficits noted. Tuberculosis screening: No symptoms or risk factors identified. Fall Risk None identified. Assessment: 01:30 General: Appears uncomfortable, Behavior is restless. Pain: Complains of pain in lp1 generalized body Pain currently is 10 out of 10 on a pain scale. Noted to be crying, grimacing, moaning. Neuro: Level of Consciousness is awake, alert, obeys commands, Oriented to person, place, time, situation. Cardiovascular: Patient's skin is warm and dry. Respiratory: Respiratory effort is even, unlabored, Respiratory pattern is regular, Breath sounds are clear bilaterally. GI: Abdomen is non-distended. : No signs and/or symptoms were reported regarding the genitourinary system. EENT: No signs and/or symptoms were reported regarding the EENT system. Derm: Skin is intact, Skin is dry, Skin is normal. Musculoskeletal: No deficits noted. 02:20 Reassessment: provider notified of patient complaint of itching, states "that happens lp1 sometimes with the Phenergan, but Benadryl helps"; Verbal order from Provider for Benadryl 25mg IV now. 03:03 Reassessment:. sg 03:19 Reassessment: Patient appears in no apparent distress at this time. pt on her call sg light, reports that still hurting. notified that the patient is complaining of pain at this time. no new orders received. 03:35 Reassessment: pt medicated for pain as ordered, see EMAR, pt reports will feel better sg after this round of medication. 04:06 Reassessment: Patient appears drowsy, reports continued pain at this time. lp1 05:10 Reassessment: Patient appears in no apparent distress at this time. Patient resting, lp1 eyes closed, respirations even. 05:46 Reassessment: Patient resting, quietly on arrival to room, awakened and complaint of lp1 continued pain to generalized body, rated 7/10. 06:36 Reassessment: Dr. mcfadden at bedside to reassess patient, expresses wanting to go home. lp1 Vital Signs: 01:15 BP 117 / 76; Pulse 73; Resp 18; Temp 98.4(O); Pulse Ox 97% on R/A; Weight 69.4 kg (R); lp1 Height 5 ft. 2 in. (157.48 cm); Pain 10/10; 03:30 BP 119 / 47; Pulse 60; Resp 16; Pulse Ox 100% on 2 lpm NC; lp1 04:00 BP 112 / 41; Pulse 84; Resp 14; Pulse Ox 100% on 2 lpm NC; lp1 04:59 BP 104 / 57; Pulse 56; Resp 14; Pulse Ox 100% on 2 lpm NC; lp1 05:46 BP 88 / 64; Pulse 60; Resp 14; Pulse Ox 100% on 2 lpm NC; Pain 7/10; lp1 06:11 BP 98 / 54; Pulse 64; Resp 16; Pulse Ox 100% on 2 lpm NC; lp1 06:36 BP 95 / 57; Pulse 61; Resp 16; Pulse Ox 100% on 2 lpm NC; lp1 06:42 BP 103 / 59; Pulse 60; Resp 16; Pulse Ox 99% on R/A; lp1 01:15 Body Mass Index 27.98 (69.40 kg, 157.48 cm) lp1 ED Course: 01:12 Patient arrived in ED. am2 01:12 Adriel Mcfadden MD is Attending Physician. [facility] 01:15 Noy Pretty, RN is Primary Nurse. lp1 01:17 Triage completed. lp1 01:17 Arm band placed on. lp1 01:18 Patient has correct armband on for positive identification. french polisher on. Pulse lp1 ox on. NIBP on. 01:50 Accessed Port-a-Cath. using accessed w/ # 20 Peters needle, ,sterile technique, per [facility] protocol. Clean \\T\\ dry. Dressing intact. Good blood return. Flushes easily. 01:50 Initial lab(s) drawn, by me, sent to lab. lp1 01:55 Brooke Michelle FNP-C is PHCP. snw 02:02 XRAY Chest (1 view) In Process Unspecified. EDMS 02:13 COVID swab sent to lab. lp1 03:03 Notified ED physician of a critical lab result(s). Hgb 7.8. sg 05:25 No provider procedures requiring assistance completed. lp1 Administered Medications: 01:50 Drug: foLIC Acid 1 mg Route: IVPB; Site: Port-a-cath; lp1 02:30 Follow up: IV Status: Completed infusion lp1 01:50 Drug: Dilaudid 1 mg {Note: RASS 0.} Route: IVP; Site: Port-a-cath; lp1 03:00 Follow up: Response: No adverse reaction; No change in condition lp1 01:50 Drug: NS 0.9% 1000 ml Route: IV; Rate: 1 bolus; Site: Port-a-cath; lp1 03:30 Follow up: IV Status: Completed infusion; IV Intake: 1000ml lp1 01:50 Drug: Phenergan 25 mg Route: IVP; Site: Port-a-cath; lp1 03:15 Follow up: Response: No change in condition lp1 02:45 Drug: Benadryl 25 mg Route: IVP; Site: Port-a-cath; lp1 03:30 Follow up: Response: No adverse reaction lp1 03:35 Drug: Dilaudid 1 mg Route: IVP; Site: Port-a-cath; sg 04:30 Follow up: Response: No adverse reaction lp1 03:35 Drug: NS 0.9% 1000 ml Route: IV; Rate: 1000 ml; Site: Port-a-cath; sg 05:15 Follow up: IV Status: Completed infusion; IV Intake: 1000ml lp1 06:55 Drug: Hep-Lock 100 units {Note: For removal of port; per patient, given with removal of lp1 access.} Route: IVP; Site: Port-a-cath; 06:55 Follow up: Response: No adverse reaction lp1 Intake: 03:30 IV: 1000ml; Total: 1000ml. lp1 05:15 IV: 1000ml; Total: 2000ml. lp1 Outcome: 06:42 Discharge ordered by . mhSasha 07:21 Patient left the ED. lp1 Signatures: Dispatcher [employer] Reyes Metz RN RN sg Brooke Michelle, PACKAGE DELIVERY DRIVER-C PACKAGE DELIVERY DRIVER-Noy Sainz RN RN lp1 Ching Matt Maurice, MD MD 7
[2020-04-10] MEDS ORDERED: HEPARIN 500 UNIT/5 ML SYR IV ONE (06:55)
--- NOTE | 2020-04-10 09:19 | RAD REPORT ---
EXAM DESCRIPTION: RAD - Chest Single View - 04/10/2020 2:02 am CLINICAL HISTORY: PAIN, sickle cell crisis COMPARISON: Portable January 21 TECHNIQUE: AP portable chest image was obtained 04/10/2020 2:02 am . FINDINGS: No diffuse pulmonary edema, mass or consolidation. Interstitial markings are mildly promin ent. Heart size is upper normal. Upper vasculature also mildly prominent. Left-sided Port-A-Cath chad ins in place. No measurable pleural effusion and no pneumothorax. No acute bony abnormality seen. No acute aortic findings suspected. IMPRESSION: Heart, vasculature and lung markings are all minimally prominent, similar or fractionall y increased from comparison. Mild edema or volume overload is suspected.
[2020-04-10 09:58] VITALS: TEMP 98.4
[2020-04-10 10:10] VITALS: BP 103/59; O2SAT 99
== END 2020-04-10 07:21 | disposition home or self-care (01) ==
LOC: ER 01:10
DX: D57.00 Hb-SS disease with crisis, unspecified (principal); Z20.828 Contact with and (suspected) exposure to other viral communicable diseases; Z86.711 Personal history of pulmonary embolism; Z79.01 Long term (current) use of anticoagulants; Z79.891 Long term (current) use of opiate analgesic
CPT/HCPCS: 36415; 71045; 80048; 80076; 83690; 83735; 83880; 84145; 84484; 85025; 85044; 85610; 86140; 86850; 86900; 86901; 87040; 93005; 96361; 96365; 96375; 99285; J1170; J1200; J1642; J2550; J7030; U0002

== ENCOUNTER 2020-04-10 07:58 | Inpatient (IN) | payer OTHER ==
--- OUTSIDE RECORDS SUMMARY | 2020-04-10 08:01 | XMS REPORT | Clinical Summary ---
:1990 Author Organization [facility] Address [address] [place] [address] Care Team Providers Name Role Phone Tasha [...] the results section. after 04/10/2019 Results SARS-CoV2/RT-PCR ([facility]) (11/13/2019 5:40 AM CDT) SARS-COV2/RT-PCR Negative Not Detected, [facility] Negative [facility] SARS-COV-2 [facility] PERFORMING LAB [facility] Specimen Other - Nasopharyngeal wall structure (b fam structure) Narrative Performed At Negative results do not preclude SARS-CoV-2 [facility] infection and should not be used as [...] the Act. Fact Sheet for Healthcare Providers: https://www.Just[employer]/Documents/Xpert%20Xpre ss%20SARS%20CoV-2/Fact%20Sheets/3023802%20SAR S-COV-2%20HEALTHCARE%20PROVIDERS%20FACT%20SHEE T.pdf Fact Sheet for Healthcare Patients: https://www.[employer]/Documents/Xpert%20Xpre ss%20SARS%20CoV-2/Fact%20Sheets/3023801%20SAR S-COV-2%20PATIENT%20FACT%20SHEET.pdf Performing Laboratory: [address] [place] [address] Performing Organization Address City/State/Zipcode Phone Number [address] [address] CENTER after 04/10/2019 Insurance Payer Benefit Plan Subscriber ID Effective Dates Phone Address Type / Group MEDICAID - [facility] [id number] 2015-Jose Juan Cabrera edicaid MEDICAID MGD STAR PLAN [facility] Advance Directives For more information, please contact: [phone] Code Status Date Activated Date Inactivated Comments Full Code 08/02/2018 7:12 AM 08/10/2018 4:40 PM This code status was determined by: Patient Full Code 07/10/2015 11:45 PM 07/14/2015 10:45 PM This code status was determined by: Patient
--- OUTSIDE RECORDS SUMMARY | 2020-04-10 08:03 | XMS REPORT | Continuity of Care Document ---
:1990 Author Organization [facility] t Address [address] [place] [address] Support Name Relationship Address Phone DENI Unavailable [id number] [address] [facility] [phone] [address] [facility] [place] [address] DENI Unavailable [id number] [address] [facility] [phone] [address] [facility] [place] [address] JORDAN Unavailable [address] i-nexus [facility] [phone] [place] [address] JORDAN Unavailable [phone] i-nexus [facility] [phone] [place] [address] CLINTON DELEON MD E Admitting Provider [address] [facility] [address] [phone] [place] [address] JESSICA SIDDIQUI Primary Care Physician [address] [place] [address] [address] [place] [address] VIJAYA MULLEN, A Emergency Provider [address] [phone] [place] [address] NAIMA MULLEN Attending Provider [address] [place] [address] JORDAN Next of Kin [address] [place] [address] IZZY MULLEN, E Emergency Provider [address] [place] [address] PHYSICIAN Primary Care Physician Unavailable Unavailab chrissy GRISSOM MD, MD Emergency Provider [address] [place] [address] [phone] [place] [address] OTHER, NAME IN NOTES Primary Care Physician Unavailable Sylvie caity SHIN MD, MD Emergency Provider [address] [facility] [place] [address] ISABELLA MULLEN, MORE Admitting Provider [address] [phone] [place] [address] FRANCIS Primary Care Physician [address] [facility] [phone] [place] [address] [address] [place] [address] Care Team Providers Name Role Phone Shaikh PAZ, Tasha Primary Care Physician ERIBERTO WOODRUFF Attending Clinician Unavailable Antonia CARTER Admitting Clinician Unavailable Payers Payer Name Policy Type Policy Effective Date Expiration Date Sour ce Number MEDICAID - [id number] 2015 [facility] MEDICAID MGD 00:00:00 - Medical CAREMCD [facility] STAR [id number]/2015-PresentMedic aid Contracted Problems Condition Condition Condition Status Onset Resolution Last Treating Co mments Source Name Details Category Date Date Treatment Clinician Date Leukocytos Leukocytos Disease Active [facility] 00 [facility] Pneumonia Pneumonia Disease Active [facility] 00 [facility] 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[facility]29 [facility] - anemia anemia 00:00: Medical 00 [facility] 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[facility]28 [facility] - crisis crisis 00:00: Medical 00 [facility] Allergies, Adverse Reactions, Alerts Allergy Allergy Status Severity Reaction(s) Onset Inactive Treating Comm ents Source Name Type Date Date Clinician Ondanset Drug Active Nausea And [facility] Hcl Intolera Vomiting 2-28 [facility] - (Pf) nce 00:00: Medical 00 [facility] morphine DA Active [facility] 3[facility] [place] 00:00: d 00 [facility] TEGEDERM DA Active [facility] DRESSING 8-23 [place] 00:00: d 00 [facility] Family History Family Member Diagnosis Comments Start Date Stop Date Source Natural brother Unremarkable [facility] Natural father Seizures [facility] Natural father Sickle cell trait [facility] Natural mother Sickle cell trait [facility] Natural sister Unremarkable [facility] Social History Social Habit Start Date Stop Date Quantity Comments Source Sex Assigned At [facility] Tobacco use and 2018-08-02 2018-08-[address] [facility] - exposure 00[facility]00:00 [facility]:00 [facility] Alcohol intake 2018-08-02 2018-08-[address] [facility] - 00:00:00 00:00:00 non-drinker of Medical Ce nter alcohol (finding) Smoking Status Start Date Stop Date Source Never smoker [facility] - [facility] Medications Ordered Filled Start Stop Current Ordering [...] Time Performed Performing Clinician Sourc e SARS-COV2/RT-PCR ([facility] 2019-11-13 05:40:00 [facility] [...] Medica l Center cervix (procedure) [code = 978736872] Future Scheduled [address] [facility] - Test 00:00:00 (procedure) [code = [facility] 35697236] Future Scheduled 1997-09-[address] [...] MHBL 06:56:00 06:56:00 2019-01-03 2019-01-03 Emergency E [facility] MHBL [address] [facility] 04:27:00 04:27:00 2018-07-20 2018-07-20 [facility] 10:30:00 10:30:00 Results Test Description Test Time Test Comments Results Result Comments Source SARS-CoV2/RT-PCR ([facility]) 2019-11-14 17:47:00 Test Item Value Reference Range Interpretation Comme nts SARS-COV2/RT-PCR (test code = Negative Not Detected, Negative 94085-1) SARS-COV-[address] [facility] (test code = 45452-5) RUSLAN (test code = RUSLAN) Negative results [...] of the Act. Fact Sheet for Healthcare Providers:https://www.Par[employer] .[employer] ([employer])/Documents/Xpert%20Xpress %20SARS%20CoV-2/Fact%20Sheets /302-7652%06OMIJ-IUG-4%20HEAL THCARE%20PROVIDERS%20FACT%20S HEET.pdf Fact Sheet for Healthcare Patients:https://www.[employer]/Documents/Xpert%20Xpress% 20SARS%20CoV-2/Fact%20Sheets/ 3023801%41CMTR-ALS-2%20PATIE NT%20FACT%20SHEET.pdf Performing Laboratory:[facility] [place] [address] [facility])2019-11-14 17:47:00 Test Item Value Reference Range Interpretation Comments SARS-COV2/RT-PCR (test code = Negative Not Detected, Negative 1674690) SARS-COV-[address] [facility] (test code = 5954670) Negative results do not preclude SARS-CoV-2 infection [...] of the Act.Fact Sheet for Healthcare Pro viders:https://www.[employer]Wed [employer])/Documents/Xpert%20Xpress%20SARS%20CoV-2/Fact%20Sh eets/3023802%20KLDM-WHR-3%20HEALTHCARE%20PROVIDERS%20FACT%20SHEET.pdfFact Sheet for Healthcare Patients:https://www.DrawQuest/Documents/Xpert%20Xpress%20SARS%20CoV-2/Fact%20Sheets/3023801%20SARS-COV -2%20PATIENT%20FACT%20SHEET.pdfPerforming Laboratory:[facility], [place] [address]JQK W/PLT COUNT & AUTO DIFFERENTIAL 2018-08-10 08:25:00 [...] 3438) Received comment: User comments: Slide comments:RETICULOCYTE [id number] 08:06:00 Test Item Value Reference Range Interpretation Comments RETICULOCYTE COUNT PCT (BEAKER) (test 25.0 % 0.5-1.7 H code = 575) CBC W/PLT COUNT & AUTO [id number] 09:27:00 Test Item Value Reference Range Interpretation [...] 3438) Received comment: User comments: Slide comments:RETICULOCYTE [id number] 05:01:00 Test Item Value Reference Range Interpretation Comments RETICULOCYTE COUNT PCT (BEAKER) (test 21.6 % 0.5-1.7 H code = 575) CBC W/PLT COUNT & AUTO [id number] 15:17:00 Test Item Value Reference Range Interpretation [...] H (BEAKER) (test code = 413) RETICULOCYTE [id number] 08:44:00 Test Item Value Reference Range Interpretation Comments RETICULOCYTE COUNT PCT (BEAKER) (test 23.8 % 0.5-1.7 H code = 575) BLOOD [id number] 14:01:00 Test Item Value Reference Range Interpretation Comments CULTURE (BEAKER) (test No growth in 5 days code = 1095) BLOOD [id number] 12:01:00 Test Item Value Reference Range Interpretation Comments CULTURE (BEAKER) (test No growth in 5 days code = 1095) CBC W/PLT COUNT & AUTO [id number] 11:38:00 Test Item Value Reference Range Interpretation [...] 3438) Received comment: User comments: Slide comments:RETICULOCYTE [id number] 07:44:00 Test Item Value Reference Range Interpretation Comments RETICULOCYTE COUNT PCT (BEAKER) (test 27.0 % 0.5-1.7 H code = 575) RETICULOCYTE [id number] 07:19:00 Test Item Value Reference Range Interpretation Comments RETICULOCYTE COUNT PCT (BEAKER) (test 22.7 % 0.5-1.7 H code = 575) CBC W/PLT COUNT & AUTO [id number] 12:07:00 Test Item Value Reference Range Interpretation [...] 3438) Received comment: User comments: Slide comments:RETICULOCYTE [id number] 06:14:00 Test Item Value Reference Range Interpretation Comments RETICULOCYTE COUNT PCT (BEAKER) (test 21.9 % 0.5-1.7 H code = 575) [id number] 06:02:00 Test Item Value Reference Range Interpretation Comments PHOSPHORUS (BEAKER) (test code = 3.8 mg/dL 2.3-4.7 604) [id number] 06:02:00 Test Item Value Reference Range Interpretation Comments MAGNESIUM (BEAKER) (test code = 1.8 mg/dL 1.6-2.6 627) BASIC METABOLIC [id number] 06:02:00 Test Item Value Reference Range Interpretation [...] Specimen moderately ictericCBC W/PLT COUNT & AUTO [id number] 09:09:00 Test Item Value Reference Range Interpretation [...] = 3438) Received comment: User comments: Slide comments:[id number] 04:11:00 Test Item Value Reference Range Interpretation Comments PHOSPHORUS (BEAKER) (test code = 3.3 mg/dL 2.3-4.7 604) [id number] 04:11:00 Test Item Value Reference Range Interpretation Comments MAGNESIUM (BEAKER) (test code = 1.6 mg/dL 1.6-2.6 627) BASIC METABOLIC [id number] 04:11:00 Test Item Value Reference Range Interpretation [...] FOR DIALYSIS PATIEN TS. Specimen slightly ictericRETICULOCYTE [id number] 03:54:00 Test Item Value Reference Range Interpretation Comments RETICULOCYTE COUNT PCT (BEAKER) (test 20.4 % 0.5-1.7 H code = 575) CBC W/PLT COUNT & AUTO [id number] 18:30:00 Test Item Value Reference Range Interpretation [...] = 413) CBC W/PLT COUNT & AUTO [id number] 10:51:00 Test Item Value Reference Range Interpretation [...] 3438) Received comment: User comments: Slide comments:RETICULOCYTE [id number] 10:08:00 Test Item Value Reference Range Interpretation Comments RETICULOCYTE COUNT PCT (BEAKER) (test 14.4 % 0.5-1.7 H code = 575) CBC W/PLT COUNT & AUTO [id number] 09:30:00 Test Item Value Reference Range Interpretation [...] = 3438) Received comment: User comments: Slide comments:[id number] 03:32:00 Test Item Value Reference Range Interpretation Comments PHOSPHORUS (BEAKER) (test code = 3.5 mg/dL 2.3-4.7 604) [id number] 03:32:00 Test Item Value Reference Range Interpretation Comments MAGNESIUM (BEAKER) (test code = 1.8 mg/dL 1.6-2.6 627) BASIC METABOLIC [id number] 03:32:00 Test Item Value Reference Range Interpretation [...] ictericCT, CHEST WITH IV CONTRAST- PE TEST [id number] 14:01:00FINAL REPORT CT scan of the chest. [...] MDReport Verified Date/Time: 08/02/2018 14:01:29 Reading Location: [facility] C013X [facility] Consult Reading Room URINALYSIS W/ REFLEX URINE [id number] 11:27:00 Test Item Value Reference Range Interpretation [...] 516) SOURCE(BEAKER) (test code = 2795) SCREEN, [id number] 11:15:00 Test Item Value Reference Range Interpretation Comments TEST URINE (BEAKER) (test Negative code = 583) RETICULOCYTE [id number] 04:43:00 Test Item Value Reference Range Interpretation Comments RETICULOCYTE COUNT PCT (BEAKER) (test 13.2 % 0.5-1.7 H code = 575) RAD, CHEST, 2 [id number] 03:54:00Reason for exam:->SICKLE CELL PAIN CRISISIs the [...] [place] MDReport Verified Date/Time: 08/02/2018 03:54:52Reading Location: [address] Reading Room CBC W/PLT COUNT & [...] (BEAKER) (test code = 417) COMPREHENSIVE METABOLIC [id number] 02:42:00 Test Item Value Reference Range Interpretation [...]
--- NOTE | 2020-04-10 08:39 | ER ---
Nurse's Notes [facility] Name: Gume Ortgea Age: 29 yrs Sex: Female : 1990 Arrival Date: 04/10/2020 Time: 07:59 Bed 14 Private MD: Diagnosis: Other sickle-cell disorders with crisis, unspecified Presentation: 04/10 08:09 Chief complaint: Patient states: was just d/c from the ER for pain all over, was given iw Dilaudid and Phenergan, was feeling better but when she went to the lobby the pain came back. Coronavirus screen: At this time, the client does not indicate any symptoms associated with coronavirus-19. Ebola Screen: Patient negative for fever greater than or equal to 101.5 degrees Fahrenheit, and additional compatible Ebola Virus Disease symptoms Patient denies exposure to infectious person. Patient denies travel to an Ebola-affected area in the 21 days before illness onset. No symptoms or risks identified at this time. Initial Sepsis Screen: Does the patient meet any 2 criteria? No. Patient's initial sepsis screen is negative. Does the patient have a suspected source of infection? No. Patient's initial sepsis screen is negative. Risk Assessment: Do you want to hurt yourself or someone else? Patient reports no desire to harm self or others. Onset of symptoms was April 10, 2020. 08:09 Method Of Arrival: Wheelchair iw 08:09 Acuity: MARILUZ 3 iw Historical: - Allergies: 08:12 Zofran; iw - Home Meds: 08:12 Dilaudid 8 mg Oral tab 1 tab every 6 hours [Active]; Eliquis 2.5 mg Oral tab 1 tab 2 iw times per day [Active]; folic acid 800 mcg Oral tab 1 tab once daily [Active]; - PMHx: 08:12 blood clot in lung; Sickle Cell; iw - PSHx: 08:12 None; iw - Immunization history:: Adult Immunizations Adult Immunizations. - Social history:: Smoking status: Patient uses street drugs, marijuana. - Family history:: not pertinent. - Hospitalizations: : No recent hospitalization is reported. Screenin:20 Abuse screen: Denies threats or abuse. Nutritional screening: No deficits noted. rb3 Tuberculosis screening: No symptoms or risk factors identified. Fall Risk None identified. Assessment: 08:20 General: Appears distressed, uncomfortable, Behavior is crying. Pain: Complains of pain rb3 in generalized Pain currently is 10 out of 10 on a pain scale. Neuro: Level of Consciousness is awake, alert, obeys commands, Oriented to person, place, time, situation. Cardiovascular: Capillary refill < 3 seconds. Respiratory: Airway is patent Respiratory effort is even, unlabored, Respiratory pattern is regular, symmetrical. GI: No signs and/or symptoms were reported involving the gastrointestinal system. : No signs and/or symptoms were reported regarding the genitourinary system. Derm: Skin is dry, Skin is normal, Skin temperature is warm. 09:30 Reassessment: Patient appears in no apparent distress at this time. No changes from rb3 previously documented assessment. 10:30 Reassessment: Pt. is resting with eyes closed, respirations even, unlabored. rb3 11:30 Reassessment: Patient appears in no apparent distress at this time. Patient and/or rb3 family updated on plan of care and expected duration. Pain level reassessed. Patient is alert, oriented x 3, equal unlabored respirations, skin warm/dry/pink. 12:30 Reassessment: Pt. is resting with eyes closed, respirations even, unlabored. rb3 13:30 Reassessment: Patient appears in no apparent distress at this time. No changes from rb3 previously documented assessment. 14:00 Reassessment: Tried to call report, left on hold. rb3 14:05 Reassessment: Pt. is resting with eyes, closed. Respirations even, unlabored. rb3 14:13 Reassessment: Gave report to SHYAM Shay. Information from the [facility] was given. All rb3 questions asked and answered. 16:21 Reassessment: Called pharmacy to credit the pt. for Zofran that was pulled around rb3 12:00, unable to administer due to an allergy. They will credit the pt. Vital Signs: 08:09 BP 116 / 98; Pulse 81; Resp 16; Temp 97.6; Pulse Ox 100% on R/A; Weight 69.4 kg; Height iw 5 ft. 2 in. (157.48 cm); Pain 10/10; 09:30 BP 118 / 55; Pulse 82; Resp 19; Pulse Ox 98% ; rb3 10:30 BP 104 / 56; Pulse 75; Resp 15; Pulse Ox 96% ; rb3 11:30 BP 110 / 64; Pulse 66; Resp 14; Pulse Ox 96% ; rb3 12:30 BP 108 / 55; Pulse 71; Resp 15; Pulse Ox 97% ; rb3 13:30 BP 110 / 70; Pulse 66; Resp 15; Pulse Ox 96% ; rb3 14:14 BP 116 / 69; Pulse 72; Resp 17; Pulse Ox 96% ; rb3 08:09 Body Mass Index 27.98 (69.40 kg, 157.48 cm) iw ED Course: 07:59 Patient arrived in ED. as 08:11 Triage completed. iw 08:12 Arm band placed on. iw 08:20 Patient has correct armband on for positive identification. Bed in low position. Call rb3 light in reach. Side rails up X 1. Pulse ox on. NIBP on. Warm blanket given. 08:23 Ariel Moreno MD is Attending Physician. rn 08:36 Sadie Solis, SHYAM is Primary Nurse. rb3 08:38 Damian Hart MD is Hospitalizing Provider. rn 08:50 Inserted Port-A-Cath left upper chest. rb3 14:26 No provider procedures requiring assistance completed. Patient admitted, IV remains in rb3 place. Administered Medications: 08:55 Drug: Dilaudid 1 mg Route: IVP; Site: Port-a-cath; rb3 09:10 Follow up: Response: No adverse reaction; Pain is decreased rb3 08:55 Drug: NS 0.9% 1000 ml Route: IV; Rate: 75 ml/hr; Site: Port-a-cath; rb3 14:26 Follow up: IV Status: Infusion continued upon admission; rate changed 100 ml/h rb3 Intake: Outcome: 08:39 Decision to Hospitalize by Provider. rn 14:26 Admitted to Med/surg accompanied by tech, via wheelchair, room 217, with chart, Report rb3 called to SHYAM Shay 14:26 Condition: stable 14:26 Instructed on the need for admit. 14:27 Patient left the ED. rb3 Signatures: Eufemia Lyle Irene, RN RN iw Ariel Moreno MD MD rn Barber, Rebecca, SHYAM RN rb3 Corrections: (The following items were deleted from the chart) 08:12 08:09 Chief complaint: Patient states: was just d/c from the hospital for pain all iw over, was given Dilaudid and Phenergan, was feeling better but when she went to the lobby the pain came back iw : 09:04 General: Appears distressed, uncomfortable, Behavior is crying, rb3 rb3 : 09:04 Pain: Complains of pain in generalized Pain currently is 10 out of 10 on a pain rb3 scale. rb3 09:04 Neuro: Level of Consciousness is awake, alert, obeys commands, Oriented to rb3 person, place, time, situation, rb3 : 09:04 Cardiovascular: rb3 rb3 09:04 Cardiovascular: Capillary refill < 3 seconds rb3 rb3 09:04 Respiratory: Airway is patent Respiratory effort is even, unlabored, Respiratory rb3 pattern is regular, symmetrical, rb3 : 09:04 GI: No signs and/or symptoms were reported involving the gastrointestinal system. rb3 rb3 :04 : No signs and/or symptoms were reported regarding the genitourinary system. [id number] :04 Derm: Skin is dry, Skin is normal, Skin temperature is warm rb3 rb3
--- NOTE | 2020-04-10 08:39 | EDPHYS ---
Physician Documentation [facility] Name: Gume Ortega Age: 29 yrs Sex: Female : 1990 Arrival Date: 04/10/2020 Time: 07:59 Bed 14 Private MD: ED Physician Ariel Moreno HPI: 04/10 08:34 This 29 yrs old Black Female presents to ER via Wheelchair with complaints of Pain All rn Over. 08:34 Pt seen just before signing back in by Dr. Mcfadden, offered admission overnight for rn sickle cell pain/crisis, declined admission, as soon as discharged, signed back in for pain, pain all over, identical to previous pain, non-focal, no sob or productive cough. No fever or recent illness. . Onset: The symptoms/episode began/occurred at an unknown time. Severity of symptoms: At their worst the symptoms were moderate in the emergency department the symptoms are unchanged. The patient has experienced similar episodes in the past. The patient has been recently seen by a physician: The patient has been recently seen at the [facility] Emergency Department. Historical: - Allergies: 08:12 Zofran; iw - Home Meds: 08:12 Dilaudid 8 mg Oral tab 1 tab every 6 hours [Active]; Eliquis 2.5 mg Oral tab 1 tab 2 iw times per day [Active]; folic acid 800 mcg Oral tab 1 tab once daily [Active]; - PMHx: 08:12 blood clot in lung; Sickle Cell; iw - PSHx: 08:12 None; iw - Immunization history:: Adult Immunizations Adult Immunizations. - Social history:: Smoking status: Patient uses street drugs, marijuana. - Family history:: not pertinent. - Hospitalizations: : No recent hospitalization is reported. ROS: 08:34 Constitutional: Negative for fever, chills, and weight loss, Eyes: Negative for injury, rn pain, redness, and discharge, Neck: Negative for injury, pain, and swelling, Cardiovascular: Negative for chest pain, palpitations, and edema, Respiratory: Negative for shortness of breath, cough, wheezing, and pleuritic chest pain, Abdomen/GI: Negative for abdominal pain, diarrhea, and constipation, Back: Negative for injury and pain, : Negative for injury, bleeding, discharge, and swelling, MS/Extremity: Negative for injury and deformity, Skin: Negative for injury, rash, and discoloration, Neuro: Negative for headache, weakness, numbness, tingling, and seizure. Exam: 08:34 Constitutional: This is a well developed, well nourished patient who is awake, alert, rn crying in pain Head/Face: Normocephalic, atraumatic. Eyes: Pupils equal round and reactive to light, extra-ocular motions intact. Periorbital areas with no swelling, redness, or edema. ENT: MMM Cardiovascular: Regular rate and rhythm. No pulse deficits. Respiratory: Hyperventilating Abdomen/GI: soft, non-tender Skin: Warm, dry MS/ Extremity: Pulses equal, no cyanosis. Neurovascular intact. Full, normal range of motion. Equal circumference. Neuro: Awake and alert, GCS 15 Vital Signs: 08:09 BP 116 / 98; Pulse 81; Resp 16; Temp 97.6; Pulse Ox 100% on R/A; Weight 69.4 kg; Height iw 5 ft. 2 in. (157.48 cm); Pain 10/10; 09:30 BP 118 / 55; Pulse 82; Resp 19; Pulse Ox 98% ; rb3 10:30 BP 104 / 56; Pulse 75; Resp 15; Pulse Ox 96% ; rb3 11:30 BP 110 / 64; Pulse 66; Resp 14; Pulse Ox 96% ; rb3 12:30 BP 108 / 55; Pulse 71; Resp 15; Pulse Ox 97% ; rb3 13:30 BP 110 / 70; Pulse 66; Resp 15; Pulse Ox 96% ; rb3 14:14 BP 116 / 69; Pulse 72; Resp 17; Pulse Ox 96% ; rb3 08:09 Body Mass Index 27.98 (69.40 kg, 157.48 cm) iw MDM: 08:23 Patient medically screened. rn 08:34 Differential Diagnosis sickle cell disease, sickle cell crisis. Data reviewed: vital rn signs, nurses notes, old medical records, lab test result(s), and as a result, I will admit patient. Counseling: I had a detailed discussion with the patient and/or guardian regarding: the historical points, exam findings, and any diagnostic results supporting the discharge/admit diagnosis, lab results, the need for further work-up and treatment in the hospital. Response to treatment: the patient's symptoms have mildly improved after treatment, and as a result, I will admit patient. Admission orders: after a detailed discussion of the patient's condition and case, the admit orders are written by me. ED course: Pt with intractable pain, just discharged, stable, admitted to Dr. Hart for intractable pain . 04/10 09:14 Order name: Urinalysis EDMS 04/10 09:14 Order name: CBC with Automated Diff EDMS 04/10 09:14 Order name: CBC with Automated Diff EDMS 04/10 09:14 Order name: Comprehensive Metabolic Panel EDMD 04/10 09:14 Order name: Comprehensive Metabolic Panel EDMD 04/10 09:14 Order name: Blood Culture EDMD 04/10 08:31 Order name: IV Start; Complete Time: 08:58 rn 04/10 09:14 Order name: CONS Pharmacy Consult EDMD 04/10 09:14 Order name: CONS Pharmacy Consult EDMD 04/10 09:14 Order name: Regular EDMS Administered Medications: 08:55 Drug: Dilaudid 1 mg Route: IVP; Site: Port-a-cath; rb3 09:10 Follow up: Response: No adverse reaction; Pain is decreased rb3 08:55 Drug: NS 0.9% 1000 ml Route: IV; Rate: 75 ml/hr; Site: Port-a-cath; rb3 14:26 Follow up: IV Status: Infusion continued upon admission; rate changed 100 ml/h rb3 Disposition: 04/10/20 08:39 Hospitalization ordered by Damian Hart for Observation. Preliminary diagnosis is Other sickle-cell disorders with crisis, unspecified. - Bed requested for Telemetry/MedSurg (observation). - Status is Observation. rb3 - Condition is Stable. - Problem is an acute exacerbation. - Symptoms have improved. Signatures: Dispatcher [employer] EDMD Kayla Kohler RN RN iw Nieto, Roman, MD MD rn Botello, Elizabeth eb Barber, Rebecca, RN RN rb3 Corrections: (The following items were deleted from the chart) 13:39 08:39 Hospitalization Ordered by Damian Hart MD for Observation. Preliminary eb diagnosis is Other sickle-cell disorders with crisis, unspecified. Bed requested for Telemetry/MedSurg (observation). Status is Observation. Condition is Stable. Problem is an acute exacerbation. Symptoms have improved. rn 14:27 13:39 04/10/2020 08:39 Hospitalization Ordered by Damian Hart MD for Observation. rb3 Preliminary diagnosis is Other sickle-cell disorders with crisis, unspecified. Bed requested for Telemetry/MedSurg (observation). Status is Observation. Condition is Stable. Problem is an acute exacerbation. Symptoms have improved. eb
[2020-04-10] MEDS ORDERED: HYDROMORPHONE HCL 1 MG/ML INJ ONE (08:52)
[2020-04-10] MEDS ORDERED: NA CHLORIDE 0.9% 1,000 ML ONE (08:52)
[2020-04-10] MEDS ORDERED: CEFTRIAXONE 1 GM/NS 50 ML 1 GM/50 ML BAG IV SCH (09:00)
[2020-04-10] MEDS ORDERED: ONDANSETRON 4 MG/2 ML VIAL IV PRN (09:13)
--- NOTE | 2020-04-10 09:19 | P.HP ---
Certification for Inpatient With expected LOS: >2 Midnights Patient will require the following post-hospital care: None Practitioner: I am a practitioner with admitting privileges, knowledge of patient current condition, hospital course, and medical plan of care. Services: Services provided to patient in accordance with Admission requirements found in Title 42 Section 412.3 of the Code of Federal Regulations Patient History Date of Service: 04/10/20 Reason for admission: Generalize pain sickle cell crisis History of Present Illness: Patient is 29 years of age admitted with generalized pain he was here last [facility] discharged came back here to the emergency room she is hurting all over severe pain the history of sickle cell with crisis last relapse was in November appears to be in significant distress Allergies ondansetron HCl [From Zofran] Allergy (Mild, Verified 08/02/12 16:51) Nausea/Vomiting Home Medications: Folic Acid [Folic Acid*] 1 mg PO DAILY 08/01/12 Apixaban [Eliquis *] 1 tab PO BID 08/12/18 Promethazine Tab [Phenergan*] 25 mg PO Q4H PRN #30 tab 11/15/19 Hydromorphone HCl [Dilaudid] 8 mg PO BID 01/22/20 hydrOXYzine HCL [Atarax*] 25 mg PO Q6HP PRN 01/22/20 Hydromorphone HCl [Dilaudid] 8 mg PO BID 15 Days #30 tablet 01/24/20 - Past Medical/Surgical History Diabetic: No -: sickle cell -: pneumonia -: port-a-cath placement - Family History Mother -: Other (see notes) Notes: sickle cell trait Father -: Other (see notes) Notes: sickle cell trait - Social History Alcohol use: Yes CD- Drugs: Yes Caffeine use: Yes Review of Systems is unable to be obtained Physical Examination - Physical Exam General: Severe distress Neck: Supple Respiratory: Clear to auscultation bilaterally Cardiovascular: No edema, Regular rate/rhythm Gastrointestinal: Normal bowel sounds, Soft and benign Musculoskeletal: No clubbing, No swelling, No warmth Integumentary: No breakdown Assessment and Plan - Problems (Diagnosis) (1) Sickle cell crisis Onset Date: 09/17/16 Current Visit: No Status: Acute Plan: Patient is 29 years of age admitted with sickle cell crisis patient's chest x- rays clear with admit for IV antibiotics cultures blood and urine pain relief IV fluids oxygen - Advance Directives Does patient have a Living Will: No Does patient have a Durable POA for Healthcare: No
[2020-04-10] MEDS: NA CHLORIDE 0.9% 1,000 ML IV SCH ×2 (10:00→20:03)
[2020-04-10] MEDS: MORPHINE 4 MG/ML SYR IV PRN ×2 (12:15→16:43)
[2020-04-10] MEDS ORDERED: MORPHINE 4 MG/ML SYR ONE (12:16)
[2020-04-10] MEDS ORDERED: ONDANSETRON 4 MG/2 ML VIAL ONE (12:17)
[2020-04-10] MEDS: KETOROLAC 30 MG/ML INJ IV PRN ×2 (14:36→20:03)
[2020-04-10 14:43] VITALS: BMI 28.0
[2020-04-10] MEDS: CEFTRIAXONE/SWI 1gm 1 GM/10 ML SYR IV SCH (15:41)
[2020-04-10] MEDS: HYDROMORPHONE HCL 2 MG/ML inj IV PRN ×2 (17:55→22:07)
[2020-04-11] MEDS: KETOROLAC 30 MG/ML INJ IV PRN ×3 (01:08→22:12)
[2020-04-11] MEDS: HYDROMORPHONE HCL 2 MG/ML inj IV PRN ×5 (02:02→20:30)
[2020-04-11 04:27] LABS: Absolute Lymphocytes (CBC) 7.1 K/uL (0.7-4.9); Basophils % 0.6 % (0-1.3); Lymphocytes % 41.6 % (15.3-44.8); MPV 9.2 fL (7.6-11.3)
[2020-04-11 04:29] LABS: Hematocrit 17.7 % (36.0-45.0)
[2020-04-11 04:36] LABS: ALT/SGPT 16 U/L (12-78); AST/SGOT 30 U/L (15-37); Albumin 3.5 g/dL (3.4-5.0); Alkaline Phosphatase 70 U/L (45-117); BUN Blood Urea Nitrogen 3 mg/dL (7-18); Bicarbonate 26 mmol/L (21-32); Bilirubin Total 3.5 mg/dL (0.2-1.0); Glucose Level 92 mg/dL (74-106); Protein, Total 7.1 g/dL (6.4-8.2); Sodium Level 145 mmol/L (136-145)
[2020-04-11] MEDS: NA CHLORIDE 0.9% 1,000 ML IV SCH ×2 (05:03→18:51)
[2020-04-11] MEDS: PROMETHAZINE INJ 25 MG/ML AMP IV PRN ×2 (05:32→13:24)
[2020-04-11 05:35] LABS: Anisocytosis 1+; Blood Morphology Comment NOTED (NOT SEEN); Platelet Estimate ADEQ; Polychromasia 3+; Target Cells 2+; White Blood Cell Scan OK (OK)
[2020-04-11] MEDS: CEFTRIAXONE/SWI 1gm 1 GM/10 ML SYR IV SCH (08:15)
[2020-04-11] MEDS ORDERED: CEFTRIAXONE/SWI 1gm 1 GM/10 ML SYR IV SCH (09:00)
[2020-04-11 12:00] LABS: Absolute Lymphocytes (CBC) 2.8 K/uL (0.7-4.9); Basophils % 1.3 % (0-1.3); Lymphocytes % 16.9 % (15.3-44.8); MPV 8.5 fL (7.6-11.3); RBC Red Blood Cell Count 1.77 M/uL (3.86-4.86)
[2020-04-11 12:04] LABS: Hematocrit 16.3 % (36.0-45.0)
[2020-04-11 15:52] LABS: Ferritin 1242.4 ng/mL (8-388)
[2020-04-11 18:31] LABS: Urine Appearance CLOUDY; Urine Bilirubin NEGATIVE (NEG); Urine Blood 3+ (NEG); Urine Color DK YELLOW; Urine Glucose NEGATIVE (NEG); Urine Protein NEGATIVE (NEG); Urine Urobilinogen 0.2 mg/dL (0.2-1.0); Urine pH 5.5 (5.0-7.0)
[2020-04-11 18:35] LABS: Urine Bacteria <20 /HPF (<20); Urine Microscopic Reflex ORDER UMIC; Urine Mucus 1+ /HPF (NONE SEEN); Urine RBC <5 /HPF (NONE SEEN)
[2020-04-11 22:32] LABS: Hematocrit 19.7 % (36.0-45.0)
[2020-04-12] MEDS: HYDROMORPHONE HCL 2 MG/ML inj IV PRN ×6 (00:59→22:42)
[2020-04-12] MEDS: NA CHLORIDE 0.9% 1,000 ML IV SCH ×4 (02:00→20:34)
[2020-04-12] MEDS: PROMETHAZINE INJ 25 MG/ML AMP IV PRN ×3 (05:29→21:27)
[2020-04-12] MEDS: KETOROLAC 30 MG/ML INJ IV PRN (06:20)
[2020-04-12] MEDS: CEFTRIAXONE/SWI 1gm 1 GM/10 ML SYR IV SCH (08:10)
--- NOTE | 2020-04-12 08:33 | P.PN ---
Subjective Date of Service: 04/11/20 Subjective: No new changes, No C/O voiced, Improving Review of Systems 10-point ROS is otherwise unremarkable Physical Examination - Vital Signs Temperature: 97.9 F Blood Pressure: 118/76 Pulse: 69 Respirations: 16 Pulse Ox (%): 92 - Physical Exam General: Alert, In no apparent distress, Oriented x3 Respiratory: Clear to auscultation bilaterally, Normal air movement Cardiovascular: Regular rate/rhythm, Normal S1 S2, No murmurs Gastrointestinal: Normal bowel sounds, Soft and benign, Non-distended, No tenderness Musculoskeletal: No clubbing, No swelling, No tenderness Neurological: Sensation intact, Cranial nerves 3-12 intact - Studies Medications List Reviewed: Yes Assessment & Plan - Problems (Diagnosis) (1) Hemolytic anemia Current Visit: No Status: Acute (2) Sickle cell pain crisis Current Visit: No Status: Acute - Plan Plan: 1. Proceed with blood transfusion 2. Monitor H&H 3. Pain control 4. O2 per protocol 5. GI and DVT prophylaxis Discharge Plan: Home Plan to discharge in: Greater than 2 days - Advance Directives Does patient have a Living Will: No Does patient have a Durable POA for Healthcare: No - Code Status/Comfort Care Code Status Assessed: Yes Code Status: Full Code Critical Care: No Time Spent Managing PTS Care (In Minutes): 35
[2020-04-12] MEDS ORDERED: PROMETHAZINE 25 MG TABLET PO PRN (08:34)
[2020-04-12] MEDS ORDERED: hydrOXYzine HCL 25 MG TAB PO PRN (08:34)
[2020-04-12] MEDS: HYDROMORPHONE ORAL 4 MG TAB PO SCH ×2 (09:00→20:33)
[2020-04-12] MEDS: VENLAFAXINE HCL 25 MG PO SCH ×2 (09:00→20:45)
[2020-04-12] MEDS ORDERED: HYDROCODONE/APAP 10/325 TAB PO PRN (10:24)
[2020-04-12] MEDS: FOLIC ACID 1 MG TABLET PO SCH (10:27)
[2020-04-12] MEDS: APIXABAN 2.5 MG TABLET PO SCH ×2 (10:27→20:33)
[2020-04-12 12:10] LABS: BUN Blood Urea Nitrogen 2 mg/dL (7-18); Bicarbonate 28 mmol/L (21-32); Glucose Level 82 mg/dL (74-106); Sodium Level 145 mmol/L (136-145)
[2020-04-12 12:14] LABS: Potassium 3.7 mmol/L (3.5-5.1)
[2020-04-12 12:46] LABS: Absolute Lymphocytes (CBC) 3.2 K/uL (0.7-4.9); Basophils % 1.8 % (0-1.3); Lymphocytes % 22.6 % (15.3-44.8); MPV 9.2 fL (7.6-11.3); RBC Red Blood Cell Count 2.15 M/uL (3.86-4.86)
[2020-04-12] MEDS ORDERED: NA CHLORIDE 0.9% 250 ML ONE (15:40)
[2020-04-12] MEDS ORDERED: FUROSEMIDE 20 MG/ 2ML VIAL IV ONE (18:19)
[2020-04-12 20:49] LABS: Hematocrit 24.8 % (36.0-45.0)
[2020-04-12 22:00] VITALS: TEMP 98.5
[2020-04-13] MEDS: KETOROLAC 30 MG/ML INJ IV PRN (00:58)
[2020-04-13] MEDS: HYDROMORPHONE HCL 2 MG/ML inj IV PRN ×2 (02:59→06:31)
[2020-04-13 03:03] VITALS: BP 136/76
[2020-04-13] MEDS: NA CHLORIDE 0.9% 1,000 ML IV SCH (04:58)
--- NOTE | 2020-04-13 08:57 | P.PN ---
Subjective Date of Service: 04/12/20 Patient still having significant pain. Her hemoglobin is still low. Will go ahead and transfuse an additional unit of packed red blood cells. I have spoken with her and she does not have her pain medication at home. Will give her 1 week supply and anticipate being able to discharge her tomorrow. Review of Systems 10-point ROS is otherwise unremarkable Physical Examination - Vital Signs Temperature: 98.5 F Blood Pressure: 136/76 Pulse: 56 Respirations: 18 Pulse Ox (%): 99 - Physical Exam General: Alert, In no apparent distress, Oriented x3 Respiratory: Clear to auscultation bilaterally, Normal air movement Cardiovascular: Regular rate/rhythm, Normal S1 S2 Gastrointestinal: Normal bowel sounds, Soft and benign, Non-distended, No tenderness Musculoskeletal: No clubbing, No swelling, No tenderness Integumentary: No rashes Neurological: Normal speech, Normal tone, Normal affect Lymphatics: No axilla or inguinal lymphadenopathy - Studies Medications List Reviewed: Yes Assessment & Plan - Problems (Diagnosis) (1) Hemolytic anemia Current Visit: No Status: Acute (2) Sickle cell pain crisis Current Visit: No Status: Acute - Plan Plan: 1. Proceed with blood transfusion 2. Monitor H&H 3. Pain control 4. O2 per protocol 5. GI and DVT prophylaxis - Advance Directives Does patient have a Living Will: No Does patient have a Durable POA for Healthcare: No - Code Status/Comfort Care Code Status: Full Code
[2020-04-13] MEDS: VENLAFAXINE HCL 25 MG PO SCH (09:00)
[2020-04-13] MEDS: FOLIC ACID 1 MG TABLET PO SCH (09:01)
[2020-04-13] MEDS: APIXABAN 2.5 MG TABLET PO SCH (09:01)
[2020-04-13] MEDS: CEFTRIAXONE/SWI 1gm 1 GM/10 ML SYR IV SCH (09:01)
[2020-04-13] MEDS: HYDROMORPHONE ORAL 4 MG TAB PO SCH (09:02)
[2020-04-13 09:13] VITALS: O2SAT 97
[2020-04-13] MEDS ORDERED: HEPARIN 500 UNIT/5 ML SYR IV PRN (11:41)
--- NOTE | 2020-04-21 15:03 | P.DS ---
Discharge Date: 04/13/20 Disposition: ROUTINE DISCHARGE Discharge Condition: GOOD Reason for Admission: Generalize pain sickle cell crisis - Problems (1) Hemolytic anemia Status: Acute (2) Sickle cell pain crisis Status: Acute Brief History of Present Illness: Patient is a 29-year-old female with a history of sickle cell. She was admitted to the hospital for sickle cell pain crisis. She was treated with IV fluids and pain control. Patient will be admitted to the hospital for inpatient treatment. Hospital Course: At this time, patient is clinically doing well. Patient's symptoms are improved. Patient's pain is controlled. At this time, patient is stable for discharge home with outpatient follow with hematology. Vital Signs/Physical Exam: Temp Pulse Resp BP Pulse Ox 98.5 F 56 18 136/76 99 04/21/20 15:01 04/21/20 15:01 04/21/20 15:01 04/21/20 15:01 04/21/20 15:01 General: Alert, In no apparent distress, Oriented x3 Laboratory Data at Discharge: WBC 14.3 K/uL (4.3-10.9) H D 04/12/20 11:00 Hgb 9.1 g/dL (12.0-15.0) L 04/12/20 20:35 Hct 24.8 % (36.0-45.0) L D 04/12/20 20:35 Plt Count 339 K/uL (152-406) 04/12/20 11:00 Sodium 145 mmol/L (136-145) 04/12/20 11:00 Potassium 3.7 mmol/L (3.5-5.1) 04/12/20 11:00 BUN 2 mg/dL (7-18) L 04/12/20 11:00 Creatinine 0.40 mg/dL (0.55-1.3) L 04/12/20 11:00 Glucose 82 mg/dL (74-106) 04/12/20 11:00 Total Bilirubin 3.5 mg/dL (0.2-1.0) H 04/11/20 03:34 AST 30 U/L (15-37) 04/11/20 03:34 ALT 16 U/L (12-78) 04/11/20 03:34 Alkaline Phosphatase 70 U/L (45-117) 04/11/20 03:34 Home Medications: Folic Acid [Folic Acid*] 1 mg PO DAILY 08/01/12 Apixaban [Eliquis *] 1 tab PO BID 08/12/18 Promethazine Tab [Phenergan*] 25 mg PO Q4H PRN #30 tab 11/15/19 hydrOXYzine HCL [Atarax*] 25 mg PO Q6HP PRN 01/22/20 Venlafaxine HCl [Effexor] 25 mg PO BID 04/10/20 Hydrocodone Bit/Acetaminophen [Hydrocodon-Acetaminophn 10-325] 10 - 325 mg PO Q4H PRN 04/12/20 Hydromorphone HCl [Dilaudid] 8 mg PO BID PRN #20 04/13/20 New Medications: Hydromorphone HCl [Dilaudid] 8 mg PO BID PRN #20 PRN Reason: Pain Scale 8-10 (Severe) Patient Discharge Instructions: OK TO DC IV AND DC HOME. FOLLOW-UP WITH PRIMARY CARE PROVIDER IN 1-2 WEEKS. FOLLOW-UP WITH PAINT FACTORY WORKER IN 1-2 WEEKS. RETURN TO THE ER IF SYMPTOMS WORSEN. CALL or TEXT DR. MASON AT [phone] IF ANY QUESTIONS REGARDING HOSPITAL STAY. PLEASE CALL THE FLOOR AT [phone] IF ANY MEDICATION OR NURSING QUESTIONS. Diet: Regular Activity: Ad gina Time spent managing pt's care (in minutes): 35
== END 2020-04-13 12:10 | disposition home or self-care (01) | DRG 812 ==
LOC: ER 07:58 → ERHOLD 09:22 → 2ND 14:12
PROVIDERS: ADMIT Internal Medicine Sleep Medicine; ATTEND Hospitalist
PROC: 30233N1 Transfusion of Nonautologous Red Blood Cells into Peripheral Vein, Percutaneous Approach (ICD-10-PCS; principal; 2020-04-11)
DX: D57.00 Hb-SS disease with crisis, unspecified (principal); Z79.01 Long term (current) use of anticoagulants; Z79.899 Other long term (current) drug therapy
CPT/HCPCS: 36415; 36430; 71045; 80048; 80053; 80076; 81003; 81015; 82728; 83540; 83690; 83735; 83880; 84145; 84466; 84484; 85014; 85018; 85025; 85044; 85610; 86140; 86850; 86900; 86901; 86922; 87040; 87086; 87088; 93005; 94760; 96361; 96365; 96374; 96375; 99285; J0696; J1170; J1200; J1642; J1940; J2405; J2550; J7030; J7050; P9016; U0002

== ENCOUNTER 2020-05-19 11:12 | Emergency (ER) | payer OTHER ==
--- OUTSIDE RECORDS SUMMARY | 2020-05-19 11:16 | XMS REPORT | Clinical Summary ---
:1990 Author Organization [facility] Address [address] [place] [address] Care Team Providers Name Role Phone Tasha [...] Team Description 11/14/2019 Lab Requisition Lab after 05/19/2019 Family History Medical History Relation Name Comments [...] procedure are in the results section. after 05/19/2019 Results SARS-CoV2/RT-PCR ([facility]) (11/13/2019 5:40 AM CDT) SARS-COV2/RT-PCR Negative Not Detected, [facility] Negative [facility] [facility]OV-2 [facility] [place] Specimen Other - Nasopharyngeal wall structure (b fam structure) Narrative Performed At Negative results do not preclude SARS-CoV-2 [facility] infection and should not be [...] the Act. Fact Sheet for Healthcare Providers: https://www.[employer]/Documents/Xpert%20Xpre ss%20SARS%20CoV-2/Fact%20Sheets/3023802%20SAR S-COV-2%20HEALTHCARE%20PROVIDERS%20FACT%20SHEE T.pdf Fact Sheet for Healthcare Patients: https://www.[employer]/Documents/Xpert%20Xpre ss%20SARS%20CoV-2/Fact%20Sheets/3023801%20SAR S-COV-2%20PATIENT%20FACT%20SHEET.pdf Performing Laboratory: [address] [place] [address] Performing Organization Address City/State/Zipcode Phone Number [address] [address] CENTER after 05/19/2019 Insurance Payer Benefit Plan Subscriber ID Effective Dates Phone Address Type / Group MEDICAID - [facility] COMM [id number] 2015-Jose Juan Cabrera edicaid MEDICAID [employer] [facility] Advance Directives For more information, please contact: [phone] Code Status Date Activated Date Inactivated Comments Full Code 08/02/2018 7:12 AM 08/10/2018 4:40 PM This code status was determined by: Patient Full Code 07/10/2015 11:45 PM 07/14/2015 10:45 PM This code status was determined by: Patient
--- OUTSIDE RECORDS SUMMARY | 2020-05-19 11:17 | XMS REPORT | Continuity of Care Document ---
:1990 Author Organization [facility] t Address [address] [place] [address] Support Name Relationship Address Phone DENI Unavailable [address] [address] [facility] [phone] [address] [facility] [place] [address] DENI Unavailable [address] [address] [facility] [phone] [address] [facility] [place] [address] JORDAN Unavailable [address] [facility] [phone] [place] [address] JORDAN Unavailable [address] [facility] [phone] [place] [address] CLINTON DELEON MD E Admitting Provider [address] [facility] [address] [phone] [place] [address] JESSICA SIDDIQUI Primary Care Physician [address] [place] [address] [address] [place] [address] VIJAYA MULLEN, A Emergency Provider [address] [place] [address] NAIMA MULLEN Attending Provider [address] [place] [address] JORDAN Next of Kin N Y [address] [place] [address] IZZY MULLEN, E Emergency Provider [address] [facility] [address] [place] [address] PHYSICIAN Primary Care Physician Unavailable Unavailab chrissy GRISSOM MD, MD Emergency Provider [address] [place] [address] [phone] [place] [address] OTHER, NAME IN NOTES Primary Care Physician Unavailable Sylvie caity SHIN MD, MD Emergency Provider [address] [place] [address] ISABELLA MULLEN, MORE Admitting Provider [address] [place] [address] FRANCIS Primary Care Physician [address] [facility] [phone] [place] [address] [address] [place] [address] Care Team Providers Name Role Phone Tasha Campos MD Primary Care Physician ERIBERTO WOODRUFF Attending Clinician Unavailable Antonia CARTER Admitting Clinician Unavailable Payers Payer Name Policy Type Policy Effective Date Expiration Date Sour ce Number MEDICAID - [id number] 2015 [facility] MEDICAID MGD 00:00:00 - Medical CAREMCD COMM Center STAR [id number]/2015-PresentMedic aid Contracted Problems Condition Condition Condition Status Onset Resolution Last Treating Co mments Source Name Details Category Date Date Treatment Clinician Date Leukocytos Leukocytos Disease Active [facility] - 00:00: Medical 00 [facility] Pneumonia Pneumonia Disease Active [facility] - 00:[facility]: Medical 00 [facility] 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[facility] cell 2[facility]29 [facility] - anemia anemia 00:00: Medical 00 [facility] 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[facility] cell cell 2-28 [facility] - crisis crisis 00:00: Medical 00 [facility] Allergies, Adverse Reactions, Alerts Allergy Allergy Status Severity Reaction(s) Onset Inactive Treating Comm ents Source Name Type Date Date Clinician Ondanset Drug Active Nausea And [facility] brittney Hcl Intolera Vomiting 2-28 [facility] - (Pf) nce 00:00: Medical 00 [facility] morphine DA Active [facility] 3[facility]11 [place] 00:00: d 00 [facility] TEGEDERM DA Active [facility] DR[facility] 8-23 [place] 00:00: d 00 [facility] Family History Family Member Diagnosis Comments Start Date Stop Date Source Natural brother Unremarkable [facility] Natural father Seizures [facility] Natural father Sickle cell trait [facility] Natural mother Sickle cell trait [facility] Natural sister Unremarkable [facility] Social History Social Habit Start Date Stop Date Quantity Comments Source Sex Assigned At [facility] Tobacco use and 2018-08-02 2018-08-02 Never used JUDITH Torres Ariana kes - exposure 00:00:00 00:00:00 [facility] Center Alcohol intake 2018-08-02 2018-08-02 Current JUDITH Torres Gladys es - 00:00:00 00:00:00 non-drinker of Medical Ce nter alcohol (finding) Smoking Status Start Date Stop Date Source Never smoker [facility] Medications Ordered Filled Start Stop Current Ordering Indication Dosage Frequency Signature Comments Components Source Medication Medication Date Date Medication? Clinician (SIG) Name Name folic acid 2018- Yes folate 2mg QD Take [address] (FOLVITE) 1 3-31 deficiency by mouth [facility] - MG tablet 14:39: daily. Medica l 58 Center penicillin 2018- Yes 250mg Take [address] v potassium 3-31 mg by [facility] - (VEETID) 14:39: mouth Medical 250 MG 58 every 12 Center tablet (twelve) hours. HYDROmorpho 2019- Yes 8mg Take [address] ne 3-31 by mouth [facility] - (DILAUDID) 14:39: every 6 Medi rita 8 MG tablet 58 (six) Center hours as needed for Pain. apixaban 2018- Yes 2.5mg Q.5D Take 2.[address] (ELIQUIS) 3-31 mg by [facility]ukes - 2.5 mg Tab 14:39: mouth 2 Medi rita tablet 58 (two) Center times daily. ALPRAZolam 2018- Yes 1mg Take [address] (XANAX) 1 3-31 by mouth 2 Luke s - MG tablet 14:39: (two) Medical 58 times Center daily as needed for Anxiety. VITAMIN D2 2019- Yes 1{capsu Q7D Take [address] 50,000 unit 2-25 le} capsule by Ariana kes - capsule 00:00: mouth once Medi rita 00 a week. Center PROAIR HFA 2019-0 Yes 1{puff} Inhale [address] 90 2-22 puff by [facility]ukes - mcg/actuati 00:00: mouth via M edical on inhaler 00 inhaler Center every 6 (six) hours as needed. prochlorper 2019-0 Yes 1{tbl} Take [address] azine 1-14 tablet by Rufina - (COMPAZINE) 00:00: mouth Medic al 10 MG 00 every 8 Center tablet (eight) hours as needed nausea. Procedures Procedure Date / Time Performed Performing Clinician Sourc e SARS-COV2/RT-PCR ([facility] 2019-11-13 05:40:00 [facility] REF [facility]) Medical [facility] Plan of Care Planned Activity Planned Date Details Comments Source Future Scheduled 2020-01-12 INFLUENZA VACCINE (#1) [facility] - Test 00:00:00 [code = INFLUENZA Medical Ce nter VACCINE (#1)] Future Scheduled 2012-09-[address] Gladys es - Test 00:00:00 malignant neoplasm of Medica [facility] cervix (procedure) [code = 540048159] Future Scheduled [address] [facility] - Test 00:00:00 (procedure) [code = [facility] 20013622] Future Scheduled 1997-09-[address] [...] [facility]BL 20:51:00 20:51:00 2019-01-05 2019-01-05 Emergency [facility] 06:56:00 06:56:00 2019-01-03 2019-01-03 Emergency E [facility] 04:27:00 04:27:00 2018-07-20 2018-07-20 Emergency E [facility] 10:30:00 10:30:00 Results Test Description Test Time Test Comments Results Result Comments Source SARS-CoV2/RT-PCR ([facility] & Ref Labs) 2019-11-14 17:47:00 Test Item Value Reference Range Interpretation Comme nts SARS-COV2/RT-PCR (test code = Negative Not Detected, Negative 63702-2) SARS-COV-2 [facility] (test code = 60877-1) RUSLAN (test code = RUSLAN) Negative results [...] of the Act. Fact Sheet for Healthcare Providers:https://www.SquareOne .Hover 3D/Documents/Xpert%20Xpress %20SARS%20CoV-2/Fact%20Sheets /302-3802%12HONH-AJV-9%20HEAL THCARE%20PROVIDERS%20FACT%20S HEET.pdf Fact Sheet for Healthcare Patients:https://www.O'ol Blue/Documents/Xpert%20Xpress% 20SARS%20CoV-2/Fact%20Sheets/ 302-3801%99IYBO-VFO-1%20PATIE NT%20FACT%20SHEET.pdf Performing Laboratory:[facility] [place] [address] [facility]F [facility]2019-11-14 17:47:00 Test Item Value Reference Range Interpretation Comments SARS-COV2/RT-PCR (test code = Negative Not Detected, Negative 8399294) SARS-COV-2 PERFORMING LAB [facility] (test code = 7879113) Negative results do not preclude SARS-CoV-2 infection [...] of the Act.Fact Sheet for Healthcare Pro viders:https://www.SquareOne.Hover 3D/Documents/Xpert%20Xpress%20SARS%20CoV-2/Fact%20Sh eets/302-3802%26GYRU-ODA-9%20HEALTHCARE%20PROVIDERS%20FACT%20SHEET.pdfFact Sheet for Healthcare Patients:https://www.Ebury.Hover 3D/Documents/Xpert%20Xpress%20SARS%20CoV-2/Fact%20Sheets/302-3801%20SARS-COV -2%20PATIENT%20FACT%20SHEET.pdfPerforming Laboratory:[facility], [place] [address]BWL W/PLT COUNT & AUTO DIFFERENTIAL 2018-08-10 08:25:00 [...] 3438) Received comment: User comments: Slide comments:RETICULOCYTE [id number] 08:06:00 Test Item Value Reference Range Interpretation Comments RETICULOCYTE COUNT PCT (BEAKER) (test 25.0 % 0.5-1.7 H code = 575) CBC W/PLT COUNT & AUTO [id number] 09:27:00 Test Item Value Reference Range Interpretation [...] 3438) Received comment: User comments: Slide comments:RETICULOCYTE [id number] 05:01:00 Test Item Value Reference Range Interpretation Comments RETICULOCYTE COUNT PCT (BEAKER) (test 21.6 % 0.5-1.7 H code = 575) CBC W/PLT COUNT & AUTO [id number] 15:17:00 Test Item Value Reference Range Interpretation [...] H (BEAKER) (test code = 413) RETICULOCYTE [id number] 08:44:00 Test Item Value Reference Range Interpretation Comments RETICULOCYTE COUNT PCT (BEAKER) (test 23.8 % 0.5-1.7 H code = 575) BLOOD [id number] 14:01:00 Test Item Value Reference Range Interpretation Comments CULTURE (BEAKER) (test No growth in 5 days code = 1095) BLOOD [id number] 12:01:00 Test Item Value Reference Range Interpretation Comments CULTURE (BEAKER) (test No growth in 5 days code = 1095) CBC W/PLT COUNT & AUTO [id number] 11:38:00 Test Item Value Reference Range Interpretation [...] 3438) Received comment: User comments: Slide comments:RETICULOCYTE [id number] 07:44:00 Test Item Value Reference Range Interpretation Comments RETICULOCYTE COUNT PCT (BEAKER) (test 27.0 % 0.5-1.7 H code = 575) RETICULOCYTE [id number] 07:19:00 Test Item Value Reference Range Interpretation Comments RETICULOCYTE COUNT PCT (BEAKER) (test 22.7 % 0.5-1.7 H code = 575) CBC W/PLT COUNT & AUTO [id number] 12:07:00 Test Item Value Reference Range Interpretation [...] 3438) Received comment: User comments: Slide comments:RETICULOCYTE [id number] 06:14:00 Test Item Value Reference Range Interpretation Comments RETICULOCYTE COUNT PCT (BEAKER) (test 21.9 % 0.5-1.7 H code = 575) [id number] 06:02:00 Test Item Value Reference Range Interpretation Comments PHOSPHORUS (BEAKER) (test code = 3.8 mg/dL 2.3-4.7 604) [id number] 06:02:00 Test Item Value Reference Range Interpretation Comments MAGNESIUM (BEAKER) (test code = 1.8 mg/dL 1.6-2.6 627) BASIC METABOLIC [id number] 06:02:00 Test Item Value Reference Range Interpretation [...] Specimen moderately ictericCBC W/PLT COUNT & AUTO [id number] 09:09:00 Test Item Value Reference Range Interpretation [...] = 3438) Received comment: User comments: Slide comments:[id number] 04:11:00 Test Item Value Reference Range Interpretation Comments PHOSPHORUS (BEAKER) (test code = 3.3 mg/dL 2.3-4.7 604) [id number] 04:11:00 Test Item Value Reference Range Interpretation Comments MAGNESIUM (BEAKER) (test code = 1.6 mg/dL 1.6-2.6 627) BASIC METABOLIC [id number] 04:11:00 Test Item Value Reference Range Interpretation [...] FOR DIALYSIS PATIEN TS. Specimen slightly ictericRETICULOCYTE [id number] 03:54:00 Test Item Value Reference Range Interpretation Comments RETICULOCYTE COUNT PCT (BEAKER) (test 20.4 % 0.5-1.7 H code = 575) CBC W/PLT COUNT & AUTO [id number] 18:30:00 Test Item Value Reference Range Interpretation [...] = 413) CBC W/PLT COUNT & AUTO [id number] 10:51:00 Test Item Value Reference Range Interpretation [...] 3438) Received comment: User comments: Slide comments:RETICULOCYTE [id number] 10:08:00 Test Item Value Reference Range Interpretation Comments RETICULOCYTE COUNT PCT (BEAKER) (test 14.4 % 0.5-1.7 H code = 575) CBC W/PLT COUNT & AUTO [id number] 09:30:00 Test Item Value Reference Range Interpretation [...] = 3438) Received comment: User comments: Slide comments:[id number] 03:32:00 Test Item Value Reference Range Interpretation Comments PHOSPHORUS (BEAKER) (test code = 3.5 mg/dL 2.3-4.7 604) [id number] 03:32:00 Test Item Value Reference Range Interpretation Comments MAGNESIUM (BEAKER) (test code = 1.8 mg/dL 1.6-2.6 627) BASIC METABOLIC [id number] 03:32:00 Test Item Value Reference Range Interpretation [...] ictericCT, CHEST WITH IV CONTRAST- PE TEST [id number] 14:01:00FINAL REPORT CT scan of the chest. [...] MDReport Verified Date/Time: 08/02/2018 14:01:29 Reading Location: [facility] C013X [facility] Reading Room URINALYSIS W/ REFLEX URINE [id number] 11:27:00 Test Item Value Reference Range Interpretation [...] 516) SOURCE(BEAKER) (test code = 2795) SCREEN, [id number] 11:15:00 Test Item Value Reference Range Interpretation Comments TEST URINE (BEAKER) (test Negative code = 583) RETICULOCYTE [id number] 04:43:00 Test Item Value Reference Range Interpretation Comments RETICULOCYTE COUNT PCT (BEAKER) (test 13.2 % 0.5-1.7 H code = 575) RAD, CHEST, 2 [id number] 03:54:00Reason for exam:->SICKLE CELL PAIN CRISISIs the [...] chest port is in place. Signed: Costa Eaton MDReport Verified Date/Time: 08/02/2018 03:54:52Reading Location: [address] Reading Room CBC W/PLT COUNT & [...] (BEAKER) (test code = 417) COMPREHENSIVE METABOLIC [id number] 02:42:00 Test Item Value Reference Range Interpretation [...]
[2020-05-19] MEDS ORDERED: PROMETHAZINE INJ 25 MG/ML AMP ONE (12:55)
[2020-05-19] MEDS ORDERED: NA CHLORIDE 0.9% 1,000 ML ONE (12:56)
[2020-05-19] MEDS ORDERED: HYDROMORPHONE HCL 1 MG/ML INJ ONE ×3 (12:56→16:45)
[2020-05-19 13:24] LABS: Absolute Lymphocytes (CBC) 5.1 K/uL (0.7-4.9); Basophils % 1.6 % (0-1.3); Hematocrit 25.9 % (36.0-45.0); Lymphocytes % 32.4 % (15.3-44.8); MPV 9.3 fL (7.6-11.3); RBC Red Blood Cell Count 2.65 M/uL (3.86-4.86)
[2020-05-19 13:36] LABS: BUN Blood Urea Nitrogen 3 mg/dL (7-18); Bicarbonate 27 mmol/L (21-32); Glucose Level 87 mg/dL (74-106); Potassium 3.3 mmol/L (3.5-5.1); Sodium Level 142 mmol/L (136-145)
[2020-05-19] MEDS ORDERED: DIPHENHYDRAMINE 50 MG/ML VIAL ONE (16:06)
--- NOTE | 2020-05-19 16:35 | ER ---
Nurse's Notes [facility] Name: Gume Ortega Age: 29 yrs Sex: Female : 1990 Arrival Date: 05/19/2020 Time: 11:12 Bed 26 [facility] MD: Diagnosis: Sickle-cell disorders;Other sickle-cell disorders with crisis Presentation: 05/19 11:21 Chief complaint: Patient states: sickle cell crisis that started today at 0800, reports em pain everywhere, denies N/V or fever. Coronavirus screen: Client denies travel out of the [place] in the last 14 days. Ebola Screen: Patient negative for fever greater than or equal to 101.5 degrees Fahrenheit, and additional compatible Ebola Virus Disease symptoms Patient denies exposure to infectious person. Patient denies travel to an Ebola-affected area in the 21 days before illness onset. No symptoms or risks identified at this time. Initial Sepsis Screen: Does the patient meet any 2 criteria? No. Patient's initial sepsis screen is negative. Does the patient have a suspected source of infection? No. Patient's initial sepsis screen is negative. Risk Assessment: Do you want to hurt yourself or someone else? Patient reports no desire to harm self or others. Onset of symptoms. 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 - Social history:: Smoking status: Patient denies any tobacco usage or history of. Patient uses street drugs, marijuana. Screenin:45 Abuse screen: Denies threats or abuse. Nutritional screening: No deficits noted. vg1 Tuberculosis screening: No symptoms or risk factors identified. Fall Risk No fall in past 12 months (0 pts). No secondary diagnosis (0 pts). IV access (20 points). Ambulatory Aid- None/Bed Rest/Nurse Assist (0 pts). Gait- Weak (10 pts.). Mental Status- Oriented to own ability (0 pts). Total Jaime Fall Scale indicates No Risk (0-24 pts). Assessment: 12:40 General: Appears uncomfortable, Behavior is cooperative, anxious. Pain: Complains of vg1 pain in generalized pain. Pain currently is 10 out of 10 on a pain scale. Neuro: Level of Consciousness is awake, alert, obeys commands, Oriented to person, place, time, situation. Cardiovascular: Patient's skin is warm and dry. Respiratory: Airway is patent Respiratory effort is even, labored, Respiratory pattern is regular, symmetrical, tachypnea. GI: No signs and/or symptoms were reported involving the gastrointestinal system. : No signs and/or symptoms were reported regarding the genitourinary system. EENT: No signs and/or symptoms were reported regarding the EENT system. Derm: Skin is intact, is healthy with good turgor. Musculoskeletal: Circulation, motion, and sensation intact. 13:26 Reassessment: Patient states is still in pain. States pain medication did not help. vg1 Provider Notified. 14:30 Reassessment: Patient states is still in pain. Rates pain 10/10. Provider Notified. vg1 15:36 Reassessment: Patient appears in no apparent distress at this time. No changes from vg1 previously documented assessment. States feels a little better, but body still hurts. Rated pain 7/10. Patient requested for Benadryl. Stated that Dr Castrejon usually gives her Benadryl with Dilaudid and Phenergan. Provider Notified. 15:48 Reassessment: Received VO from Dr Menezes to administer 25mg of Benadryl IVP x1. vg1 17:11 Reassessment: Patient appears in no apparent distress at this time. Patient up for d/c. 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 Patient states feeling better. Vital Signs: 11:21 BP 153 / 95; Pulse 64; Resp 18; Temp 98.9(O); Pulse Ox 99% on R/A; Weight 72.57 kg; em Height 5 ft. 2 in. (157.48 cm); Pain 10/10; 13:00 BP 115 / 66; Pulse 66; Resp 22; Pulse Ox 100% on 2 lpm NC; vg1 14:30 BP 112 / 64; Pulse 62; Resp 14; Pulse Ox 100% on 2 lpm NC; vg1 15:00 BP 103 / 53; Pulse 50; Resp 16; Pulse Ox 100% on 2 lpm NC; vg1 15:30 BP 107 / 62; Pulse 52; Resp 12; Pulse Ox 100% on 2 lpm NC; vg1 16:00 BP 109 / 57; Pulse 51; Resp 22; Pulse Ox 100% on 2 lpm NC; vg1 16:30 BP 108 / 54; Pulse 50; Resp 16; Pulse Ox 100% on 2 lpm NC; vg1 11:21 Body Mass Index 29.26 (72.57 kg, 157.48 cm) em ED Course: 11:12 Patient arrived in ED. rg4 11:23 Triage completed. em 11:24 Arm band placed on. em 12:22 Cihco Menezes MD is Attending Physician. kdr 12:34 Yi Cardozo RN is Primary Nurse. vg1 12:45 Patient has correct armband on for positive identification. Placed in gown. Bed in low vg1 position. Call light in reach. Side rails up X2. front desk monitor on. Pulse ox on. NIBP on. 16:44 No provider procedures requiring assistance completed. vg1 17:12 IV discontinued, intact, bleeding controlled, No redness/swelling at site. Pressure vg1 dressing applied. Administered Medications: 13:10 Drug: Dilaudid 1 mg {Note: rass 1.} Route: IVP; Site: left subclavian; vg1 14:36 Follow up: Response: No adverse reaction; Pain is unchanged, physician notified vg1 13:10 Drug: Phenergan 12.5 mg Route: IVP; Site: left subclavian; vg1 14:37 Follow up: Response: No adverse reaction vg1 13:10 Drug: NS 0.9% 1000 ml Route: IV; Rate: 1 bolus; Site: left subclavian; vg1 14:37 Follow up: IV Status: Completed infusion; IV Intake: 1000ml vg1 14:45 Drug: Dilaudid 1 mg {Note: rass 1.} Route: IVP; Site: left subclavian; vg1 15:49 Follow up: Response: No adverse reaction; Anxiety decreased; RASS: Alert and Calm (0) vg1 15:57 Drug: Benadryl 25 mg Route: IVP; Site: left subclavian; vg1 17:13 Follow up: Response: No adverse reaction vg1 16:34 Drug: Dilaudid 1 mg Route: IVP; Site: left subclavian; vg1 17:13 Follow up: Response: Anxiety decreased; RASS: Alert and Calm (0) vg1 Intake: 14:37 IV: 1000ml; Total: 1000ml. vg1 Outcome: 16:35 Discharge ordered by . kdr 17:13 Discharged to home via wheelchair. vg1 17:13 Condition: good 17:13 Discharge instructions given to patient, Instructed on discharge instructions, follow up and referral plans. Demonstrated understanding of instructions, follow-up care. 17:45 Patient left the ED. vg1 Signatures: Chico Menezes MD MD kdr Munoz, Edgar, RN RN em Garcia, Rubi rg4 Garcia, Victoria RN RN vg1 Corrections: (The following items were deleted from the chart) 13:20 13:05 General: Appears uncomfortable, Behavior is cooperative, anxious, vg1 vg1 13:20 13:05 Pain: Complains of pain in generalized pain. Pain currently is 10 out of 10 on a vg1 pain scale. vg1 13:20 13:05 Neuro: Level of Consciousness is awake, alert, obeys commands, Oriented to vg1 person, place, time, situation, vg1 13:20 13:05 Cardiovascular: Patient's skin is warm and dry. vg1 vg1 13:20 13:05 Respiratory: Airway is patent Respiratory effort is even, labored, Respiratory vg1 pattern is regular, symmetrical, tachypnea vg1 13:20 13:05 GI: No signs and/or symptoms were reported involving the gastrointestinal system. vg1 vg1 13:20 13:05 : No signs and/or symptoms were reported regarding the genitourinary system. vg1vg1 13:20 13:05 EENT: No signs and/or symptoms were reported regarding the EENT system. vg1 vg1 13:20 13:05 Derm: Skin is intact, is healthy with good turgor, vg1 vg1 13:20 13:05 Musculoskeletal: Circulation, motion, and sensation intact. vg1 vg1
--- NOTE | 2020-05-19 16:35 | EDPHYS ---
Physician Documentation [facility] Name: Gume Ortega Age: 29 yrs Sex: Female : 1990 Arrival Date: 05/19/2020 Time: 11:12 Bed 26 Private MD: ED Physician Chico Menezes HPI: 05/19 12:47 This 29 yrs old Black Female presents to ER via Wheelchair with complaints of Sickle kdr Cell Crisis. 12:47 The patient started to have pain at 8:00 AM today. she tried to go back to sleep but kdr couldn't really rest secondary to the pain.. Onset: The symptoms/episode began/occurred suddenly, at 08:00. Severity of symptoms: At their worst the symptoms were moderate in the emergency department the symptoms are unchanged. The patient has experienced similar episodes in the past, multiple times. The patient has not recently seen a physician. 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 - Social history:: Smoking status: Patient denies any tobacco usage or history of. Patient uses street drugs, marijuana. ROS: 12:47 Constitutional: Negative for fever, chills, and weight loss, Eyes: Negative for injury, kdr pain, redness, and discharge, Neck: Negative for injury, pain, and swelling, Cardiovascular: Negative for chest pain, palpitations, and edema, Respiratory: Negative for shortness of breath, cough, wheezing, and pleuritic chest pain, Abdomen/GI: Negative for abdominal pain, nausea, vomiting, diarrhea, and constipation, Back: Negative for injury and pain, : Negative for injury, bleeding, discharge, and swelling, MS/Extremity: Negative for injury and deformity, Skin: Negative for injury, rash, and discoloration, Psych: Negative for depression, anxiety, suicide ideation, homicidal ideation, and hallucinations, Allergy/Immunology: Negative for hives, rash, and allergies, Endocrine: Negative for neck swelling, polydipsia, polyuria, polyphagia, and marked weight changes, Hematologic/Lymphatic: Negative for swollen nodes, abnormal bleeding, and unusual bruising. 12:47 Neuro: Positive for altered mental status, dizziness, seizure activity, speech changes, weakness. Exam: 12:47 Constitutional: This is a well developed, well nourished patient who is awake, alert, kdr and in moderate distress. Head/Face: Normocephalic, atraumatic. Eyes: Pupils equal round and reactive to light, extra-ocular motions intact. Lids and lashes normal. Conjunctiva and sclera are non-icteric and not injected. Cornea within normal limits. Periorbital areas with no swelling, redness, or edema. Neck: Trachea midline, no thyromegaly or masses palpated, and no cervical lymphadenopathy. Supple, full range of motion without nuchal rigidity, or vertebral point tenderness. No Meningismus. Chest/axilla: Normal chest wall appearance and motion. Nontender with no deformity. No lesions are appreciated. Cardiovascular: Regular rate and rhythm with a normal S1 and S2. No gallops, murmurs, or rubs. Normal PMI, no JVD. No pulse deficits. Respiratory: Lungs have equal breath sounds bilaterally, clear to auscultation and percussion. No rales, rhonchi or wheezes noted. No increased work of breathing, no retractions or nasal flaring. Abdomen/GI: Soft, non-tender, with normal bowel sounds. No distension or tympany. No guarding or rebound. No evidence of tenderness throughout. Back: No spinal tenderness. No costovertebral tenderness. Full range of motion. Skin: Warm, dry with normal turgor. Normal color with no rashes, no lesions, and no evidence of cellulitis. MS/ Extremity: Pulses equal, no cyanosis. Neurovascular intact. Full, normal range of motion. Neuro: Awake and alert, GCS 15, oriented to person, place, time, and situation. Cranial nerves II-XII grossly intact. Motor strength 5/5 in all extremities. Sensory grossly intact. Cerebellar exam normal. Gait limited by cast on right foot Psych: Awake, alert, with orientation to person, place and time. Behavior, mood, and affect are within normal limits. 14:28 ECG was reviewed by the Attending Physician. kdr Vital Signs: 11:21 BP 153 / 95; Pulse 64; Resp 18; Temp 98.9(O); Pulse Ox 99% on R/A; Weight 72.57 kg; em Height 5 ft. 2 in. (157.48 cm); Pain 10/10; 13:00 BP 115 / 66; Pulse 66; Resp 22; Pulse Ox 100% on 2 lpm NC; vg1 14:30 BP 112 / 64; Pulse 62; Resp 14; Pulse Ox 100% on 2 lpm NC; vg1 15:00 BP 103 / 53; Pulse 50; Resp 16; Pulse Ox 100% on 2 lpm NC; vg1 15:30 BP 107 / 62; Pulse 52; Resp 12; Pulse Ox 100% on 2 lpm NC; vg1 16:00 BP 109 / 57; Pulse 51; Resp 22; Pulse Ox 100% on 2 lpm NC; vg1 16:30 BP 108 / 54; Pulse 50; Resp 16; Pulse Ox 100% on 2 lpm NC; vg1 11:21 Body Mass Index 29.26 (72.57 kg, 157.48 cm) em MDM: 16:35 Patient medically screened. kdr 17:46 Data reviewed: vital signs, nurses notes, lab test result(s). Counseling: I had a kdr detailed discussion with the patient and/or guardian regarding: the historical points, exam findings, and any diagnostic results supporting the discharge/admit diagnosis, lab results, radiology results, the need for outpatient follow up. 05/19 12:26 Order name: CBC with Diff; Complete Time: 14:21 kdr 05/19 12:26 Order name: Chem 7; Complete Time: 14:21 kdr 05/19 12:26 Order name: Retic Count; Complete Time: 14:21 kdr 05/19 14:22 Order name: Troponin (emerg Dept Use Only) kdr 05/19 12:26 Order name: Oxygen Per Protocol: 2 L NC; Complete Time: 13:11 kdr 05/19 14:22 Order name: EKG - Nurse/Tech; Complete Time: 14:36 kdr EC:28 Rate is 64 beats/min. Rhythm is regular, Sinus Rhythm with Unifocal PVCs. QRS [place] is kdr Normal. DE interval is normal. QRS interval is normal. QT interval is normal. Clinical impression: NSR w/ Non-specific ST/T Changes, No evidence of ischemia, and Bigeminy. Administered Medications: 13:10 Drug: Dilaudid 1 mg {Note: rass 1.} Route: IVP; Site: left subclavian; vg1 14:36 Follow up: Response: No adverse reaction; Pain is unchanged, physician notified vg1 13:10 Drug: Phenergan 12.5 mg Route: IVP; Site: left subclavian; vg1 14:37 Follow up: Response: No adverse reaction vg1 13:10 Drug: NS 0.9% 1000 ml Route: IV; Rate: 1 bolus; Site: left subclavian; vg1 14:37 Follow up: IV Status: Completed infusion; IV Intake: 1000ml vg1 14:45 Drug: Dilaudid 1 mg {Note: rass 1.} Route: IVP; Site: left subclavian; vg1 15:49 Follow up: Response: No adverse reaction; Anxiety decreased; RASS: Alert and Calm (0) vg1 15:57 Drug: Benadryl 25 mg Route: IVP; Site: left subclavian; vg1 17:13 Follow up: Response: No adverse reaction vg1 16:34 Drug: Dilaudid 1 mg Route: IVP; Site: left subclavian; vg1 17:13 Follow up: Response: Anxiety decreased; RASS: Alert and Calm (0) vg1 Disposition: 05/19/20 16:35 Discharged to Home. Impression: Sickle-cell disorders, Other sickle-cell disorders with crisis. - Condition is Stable. - Discharge Instructions: Sickle Cell Anemia, Adult, [id number]. - Medication Reconciliation Form, Thank You Letter form. - Follow up: Private Physician; When: 2 - 3 days; Reason: If symptoms return, Further diagnostic work-up, Recheck today's complaints, Continuance of care, Re-evaluation by your physician. - Problem is an acute exacerbation. - Symptoms have improved. Signatures: Dispatcher [employer] EDChico Alexis MD MD kdr Munoz, Edgar RN RN Yi Szymanski RN RN vg1 Corrections: (The following items were deleted from the chart) 13:12 12:47 Constitutional: This is a well developed, well nourished patient who is awake, kdr alert, and in no acute distress. Head/Face: Normocephalic, atraumatic. Eyes: Pupils equal round and reactive to light, extra-ocular motions intact. Lids and lashes normal. Conjunctiva and sclera are non-icteric and not injected. Cornea within normal limits. Periorbital areas with no swelling, redness, or edema. Neck: Trachea midline, no thyromegaly or masses palpated, and no cervical lymphadenopathy. Supple, full range of motion without nuchal rigidity, or vertebral point tenderness. No Meningismus. Chest/axilla: Normal chest wall appearance and motion. Nontender with no deformity. No lesions are appreciated. Cardiovascular: Regular rate and rhythm with a normal S1 and S2. No gallops, murmurs, or rubs. Normal PMI, no JVD. No pulse deficits. Respiratory: Lungs have equal breath sounds bilaterally, clear to auscultation and percussion. No rales, rhonchi or wheezes noted. No increased work of breathing, no retractions or nasal flaring. Abdomen/GI: Soft, non-tender, with normal bowel sounds. No distension or tympany. No guarding or rebound. No evidence of tenderness throughout. Back: No spinal tenderness. No costovertebral tenderness. Full range of motion. Skin: Warm, dry with normal turgor. Normal color with no rashes, no lesions, and no evidence of cellulitis. MS/ Extremity: Pulses equal, no cyanosis. Neurovascular intact. Full, normal range of motion. Neuro: Awake and alert, GCS 15, oriented to person, place, time, and situation. Cranial nerves II-XII grossly intact. Motor strength 5/5 in all extremities. Sensory grossly intact. Cerebellar exam normal. Gait limited by cast on right foot Psych: Awake, alert, with orientation to person, place and time. Behavior, mood, and affect are within normal limits. kdr 17:45 16:35 05/19/2020 16:35 Discharged to Home. Impression: Sickle-cell disorders; Other vg1 sickle-cell disorders with crisis. Condition is Stable. Forms are Medication Reconciliation Form, Thank You Letter, Antibiotic Education, Prescription Opioid Use. Follow up: Private Physician; When: 2 - 3 days; Reason: If symptoms return, Further diagnostic work-up, Recheck today's complaints, Continuance of care, Re-evaluation by your physician. Problem is an acute exacerbation. Symptoms have improved. kdr
[2020-05-19] MEDS ORDERED: HEPARIN 500 UNIT/5 ML SYR IV ONE (17:17)
[2020-05-19 17:52] VITALS: TEMP 98.9
[2020-05-19 17:57] VITALS: O2SAT 100
[2020-05-19 18:04] VITALS: BP 108/54
--- NOTE | 2020-05-20 22:35 | EKG ---
Test Date: 2020-05-19 Test Time: 14:05:19 Family Sociologist: JIMMY MEASUREMENT RESULTS: Intervals: Rate: 64 VA: 128 QRSD: 82 QT: 468 QTc: 482 [place]: P: 45 VA: 128 QRS: 43 T: 47 INTERPRETIVE STATEMENTS: Sinus rhythm with frequent premature ventricular complexes in a pattern of bigeminy Prolonged QT Abnormal ECG Compared to ECG 04/10/2020 01:34:55 Ventricular premature complex(es) now present Prolonged QT interval now present Sinus bradycardia no longer present Sinus arrhythmia no longer present Electronically Signed On 05-20-20 22:29:54 SUPERVISOR ENGINE REPAIR by Jeremie Pan
== END 2020-05-19 17:45 | disposition home or self-care (01) ==
LOC: ER 11:12
DX: D57.819 Other sickle-cell disorders with crisis, unspecified (principal); Z79.01 Long term (current) use of anticoagulants; Z86.718 Personal history of other venous thrombosis and embolism
CPT/HCPCS: 96361; 93005; 85025; 80048; 36415; 85044; 84484; 96375; 96374; 99284; J2550; J1200; J1170 ×3; J1642; J7030

== ENCOUNTER 2020-07-14 08:10 | Emergency (ER) | payer OTHER ==
--- OUTSIDE RECORDS SUMMARY | 2020-07-14 08:16 | XMS REPORT | Continuity of Care Document ---
:1990 Author Organization [facility] t Address [address] [place] [address] Support Name Relationship Address Phone DENI Unavailable [id number] [facility] [phone] [address] [facility] [place] [address] DENI Unavailable [address] [facility] [phone] [address] [facility] [place] [address] JORDAN Unavailable [id number] [facility] [phone] [place] [address] JORDAN Unavailable [address] [facility] [phone] [place] [address] CLINTON DELEON MD E Admitting Provider [address] [facility] [address] [place] [address] JESSICA SIDDIQUI Primary Care Physician [address] [place] [address] [address] [place] [address] VIJAYA MULLEN, A Emergency Provider [address] [facility] [address] [place] [address] NAIMA MULLEN Attending Provider [address] [place] [address] JORDAN Next of [address] [place] [address] IZZY MULLEN, E Emergency Provider [address] [facility] [address] [place] [address] PHYSICIAN Primary Care Physician Unavailable Unavailab chrissy GRISSOM MD, MD Emergency Provider [address] [place] [address] OTHER, NAME IN NOTES Primary Care Physician Unavailable Sylvie caity SHIN MD, MD Emergency Provider [address] [facility] [phone] [place] [address] ISABELLA MULLEN MD MORE Admitting Provider [address] [place] [address] FRANCIS Primary Care Physician [address] [facility] [phone] [place] [address] MD AMRITA A Emergency Provider [facility] [place] [address] [address] [place] [address] Care Team Providers Name Role Phone Shaikh PAZ, Tasha Primary Care Physician ERIBERTO WOODRUFF Attending Clinician Unavailable Antonia CARTER Admitting Clinician Unavailable Payers Payer Name Policy Type Policy Effective Date Expiration Date Sour ce Number MEDICAID - [id number] 2015 [facility] MEDICAID MGD 00:00:00 - Medical CAREFORMERLY [facility] Center STAR [id number]/2015-PresentMedic aid Contracted Problems Condition Condition Condition Status Onset Resolution Last Treating Co mments Source Name Details Category Date Date Treatment Clinician Date Leukocytos Leukocytos Disease Active [facility] 00 [place] Pneumonia Pneumonia Disease Active [facility] 00 [place] 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[facility] cell [facility]29 [facility] - anemia anemia 00:00: Medical 00 [place] 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[facility] cell cell 2[facility]28 [facility] - crisis crisis 00:00: Medical 00 Center Allergies, Adverse Reactions, Alerts Allergy Allergy Status Severity Reaction(s) Onset Inactive Treating Comm ents Source Name Type Date Date Clinician Ondanset Drug Active Nausea And [facility] Hcl Intolera Vomiting 2-28 [facility] - (Pf) nce 00:00: Medical 00 [place] morphine DA Active [facility] 3[facility]11 [place] 00:00: d 00 [facility] TEGEDERM DA Active [facility] DR[facility]23 [place] 00:00: d 00 [facility] Family History Family Member Diagnosis Comments Start Date Stop Date Source Natural sister Unremarkable [facility] Natural brother Unremarkable [facility] Natural father Seizures [facility] Natural father Sickle cell trait [facility] Natural mother Sickle cell trait [facility] Social History Social Habit Start Date Stop Date Quantity Comments Source Sex Assigned At JUDITH Hanley [facility] Tobacco use and 2018-08-02 2018-08-02 Never used JUDITH Hanley - exposure 00:00:00 00:00:00 [facility] Alcohol intake 2018-08-02 2018-08-02 Current JUDITH Nieves es - 00:00:00 00:00:00 non-drinker of Medical Ce nter alcohol (finding) Smoking Status Start Date Stop Date Source Never smoker [facility] Medications Ordered Filled Start Stop Current Ordering Indication Dosage Frequency Signature Comments Components Source Medication Medication Date Date Medication? Clinician (SIG) Name Name folic acid Yes folate 2mg QD Take [address] (FOLVITE) 1 3-31 deficiency by mouth [facility] - MG tablet 14:39: daily. Medica l [facility] Center penicillin 0 Yes 250mg Take [address] [...] daily as needed for Anxiety. VITAMIN D2 2019-0 Yes 1{capsu Q7D Take [address] 50,000 unit 2-25 le} capsule by Ariana henaos - capsule 00:00: mouth once Medi rita [...] Procedure Date / Time Performed Performing Clinician Sour e SARS-COV2/RT-PCR ([facility] 2019-11-13 05:40:00 [facility] [...] Medica l Center cervix (procedure) [code = 075764479] Future Scheduled [address] [facility] - Test 00:00:00 (procedure) [code = Medical Center 58413581] Future Scheduled 1997-09-[address] [...] [facility]BL 16:46:00 16:46:00 2019-01-12 2019-01-12 [facility] 20:51:00 20:51:00 2019-01-05 2019-01-05 Emergency E BL BL 7512 BL 06:56:00 06:56:00 2019-01-03 2019-01-03 Emergency E [facility] BL 7511 BL 04:27:00 04:27:00 2018-07-20 2018-07-20 [facility] 10:30:00 10:30:00 Results Test Description Test Time Test Comments Results Result Comments Source SARS-CoV2/RT-PCR ([facility] Ref Labs) 2019-11-14 17:47:00 Test Item Value Reference Range Interpretation Comme nts SARS-COV2/RT-PCR (test code = Negative Not Detected, Negative 46590-7) SARS-COV-2 PERFORMING LAB [facility] (test code = 22534-1) RUSLAN (test code = RUSLAN) Negative results [...] of the Act. Fact Sheet for Healthcare Providers:https://www.Fitocracy .Crystal Clear Vision/Documents/Xpert%20Xpress %20SARS%20CoV-2/Fact%20Sheets /302-3432%91LYMR-IQS-7%20HEAL THCARE%20PROVIDERS%20FACT%20S HEET.pdf Fact Sheet for Healthcare Patients:https://www.Klique/Documents/Xpert%20Xpress% 20SARS%20CoV-2/Fact%20Sheets/ 3023801%47IUQK-LNI-2%20PATIE NT%20FACT%20SHEET.pdf Performing Laboratory:[facility] [place] [address] [facility])2019-11-14 17:47:00 Test Item Value Reference Range Interpretation Comments SARS-COV2/RT-PCR (test code = Negative Not Detected, Negative 9482600) SARS-COV-2 PERFORMING LAB [facility] (test code = 4083143) Negative results do not preclude SARS-CoV-2 infection [...] of the Act.Fact Sheet for Healthcare Pro viders:https://www.Prospectvision/Documents/Xpert%20Xpress%20SARS%20CoV-2/Fact%20Sh eets/3023802%92OHNE-KLY-3%20HEALTHCARE%20PROVIDERS%20FACT%20SHEET.pdfFact Sheet for Healthcare Patients:https://www.Wear My Tags/Documents/Xpert%20Xpress%20SARS%20CoV-2/Fact%20Sheets/302-3801%20SARS-COV -2%20PATIENT%20FACT%20SHEET.pdfPerforming Laboratory:[facility], [place] [address]SNZ W/PLT COUNT & AUTO DIFFERENTIAL 2018-08-10 08:25:00 [...] 3438) Received comment: User comments: Slide comments:RETICULOCYTE [id number] 08:06:00 Test Item Value Reference Range Interpretation Comments RETICULOCYTE COUNT PCT (BEAKER) (test 25.0 % 0.5-1.7 H code = 575) CBC W/PLT COUNT & AUTO [id number] 09:27:00 Test Item Value Reference Range Interpretation [...] 3438) Received comment: User comments: Slide comments:RETICULOCYTE [id number] 05:01:00 Test Item Value Reference Range Interpretation Comments RETICULOCYTE COUNT PCT (BEAKER) (test 21.6 % 0.5-1.7 H code = 575) CBC W/PLT COUNT & AUTO [id number] 15:17:00 Test Item Value Reference Range Interpretation [...] H (BEAKER) (test code = 413) RETICULOCYTE [id number] 08:44:00 Test Item Value Reference Range Interpretation Comments RETICULOCYTE COUNT PCT (BEAKER) (test 23.8 % 0.5-1.7 H code = 575) BLOOD [id number] 14:01:00 Test Item Value Reference Range Interpretation Comments CULTURE (BEAKER) (test No growth in 5 days code = 1095) BLOOD [id number] 12:01:00 Test Item Value Reference Range Interpretation Comments CULTURE (BEAKER) (test No growth in 5 days code = 1095) CBC W/PLT COUNT & AUTO [id number] 11:38:00 Test Item Value Reference Range Interpretation [...] 3438) Received comment: User comments: Slide comments:RETICULOCYTE [id number] 07:44:00 Test Item Value Reference Range Interpretation Comments RETICULOCYTE COUNT PCT (BEAKER) (test 27.0 % 0.5-1.7 H code = 575) RETICULOCYTE [id number] 07:19:00 Test Item Value Reference Range Interpretation Comments RETICULOCYTE COUNT PCT (BEAKER) (test 22.7 % 0.5-1.7 H code = 575) CBC W/PLT COUNT & AUTO [id number] 12:07:00 Test Item Value Reference Range Interpretation [...] 3438) Received comment: User comments: Slide comments:RETICULOCYTE [id number] 06:14:00 Test Item Value Reference Range Interpretation Comments RETICULOCYTE COUNT PCT (BEAKER) (test 21.9 % 0.5-1.7 H code = 575) [id number] 06:02:00 Test Item Value Reference Range Interpretation Comments PHOSPHORUS (BEAKER) (test code = 3.8 mg/dL 2.3-4.7 604) [id number] 06:02:00 Test Item Value Reference Range Interpretation Comments MAGNESIUM (BEAKER) (test code = 1.8 mg/dL 1.6-2.6 627) BASIC METABOLIC [id number] 06:02:00 Test Item Value Reference Range Interpretation [...] Specimen moderately ictericCBC W/PLT COUNT & AUTO [id number] 09:09:00 Test Item Value Reference Range Interpretation [...] = 3438) Received comment: User comments: Slide comments:[id number] 04:11:00 Test Item Value Reference Range Interpretation Comments PHOSPHORUS (BEAKER) (test code = 3.3 mg/dL 2.3-4.7 604) [id number] 04:11:00 Test Item Value Reference Range Interpretation Comments MAGNESIUM (BEAKER) (test code = 1.6 mg/dL 1.6-2.6 627) BASIC METABOLIC [id number] 04:11:00 Test Item Value Reference Range Interpretation [...] FOR DIALYSIS PATIEN TS. Specimen slightly ictericRETICULOCYTE [id number] 03:54:00 Test Item Value Reference Range Interpretation Comments RETICULOCYTE COUNT PCT (BEAKER) (test 20.4 % 0.5-1.7 H code = 575) CBC W/PLT COUNT & AUTO [id number] 18:30:00 Test Item Value Reference Range Interpretation [...] = 413) CBC W/PLT COUNT & AUTO [id number] 10:51:00 Test Item Value Reference Range Interpretation [...] 3438) Received comment: User comments: Slide comments:RETICULOCYTE [id number] 10:08:00 Test Item Value Reference Range Interpretation Comments RETICULOCYTE COUNT PCT (BEAKER) (test 14.4 % 0.5-1.7 H code = 575) CBC W/PLT COUNT & AUTO [id number] 09:30:00 Test Item Value Reference Range Interpretation [...] = 3438) Received comment: User comments: Slide comments:[id number] 03:32:00 Test Item Value Reference Range Interpretation Comments PHOSPHORUS (BEAKER) (test code = 3.5 mg/dL 2.3-4.7 604) [id number] 03:32:00 Test Item Value Reference Range Interpretation Comments MAGNESIUM (BEAKER) (test code = 1.8 mg/dL 1.6-2.6 627) BASIC METABOLIC [id number] 03:32:00 Test Item Value Reference Range Interpretation [...] ictericCT, CHEST WITH IV CONTRAST- PE TEST [id number] 14:01:00FINAL REPORT CT scan of the chest. [...] MDReport Verified Date/Time: 08/02/2018 14:01:29 Reading Location: [address] Consult Reading Room URINALYSIS W/ REFLEX URINE [id number] 11:27:00 Test Item Value Reference Range Interpretation [...] 516) SOURCE(BEAKER) (test code = 2795) SCREEN, [id number] 11:15:00 Test Item Value Reference Range Interpretation Comments TEST URINE (BEAKER) (test Negative code = 583) RETICULOCYTE [id number] 04:43:00 Test Item Value Reference Range Interpretation Comments RETICULOCYTE COUNT PCT (BEAKER) (test 13.2 % 0.5-1.7 H code = 575) RAD, CHEST, 2 [id number] 03:54:00Reason for exam:->SICKLE CELL PAIN CRISISIs the [...] [place] MDReport Verified Date/Time: 08/02/2018 03:54:52Reading Location: [address] Reading Room CBC W/PLT COUNT & [...] (BEAKER) (test code = 417) COMPREHENSIVE METABOLIC [id number] 02:42:00 Test Item Value Reference Range Interpretation [...]
[2020-07-14] MEDS ORDERED: NA CHLORIDE 0.9% 1,000 ML ONE (08:56)
[2020-07-14] MEDS ORDERED: DIPHENHYDRAMINE 50 MG/ML VIAL ONE ×2 (09:02→11:09)
[2020-07-14] MEDS ORDERED: HYDROMORPHONE HCL 2 MG/ML inj ONE (09:03)
[2020-07-14] MEDS ORDERED: NA CHLORIDE 0.9% 100 ML ONE (09:03)
[2020-07-14] MEDS ORDERED: PROMETHAZINE INJ 25 MG/ML AMP ONE (09:03)
[2020-07-14 09:31] LABS: BUN Blood Urea Nitrogen 7 mg/dL (7-18); Bicarbonate 23 mmol/L (21-32); Glucose Level 90 mg/dL (74-106); Potassium 4.1 mmol/L (3.5-5.1); Sodium Level 141 mmol/L (136-145)
--- NOTE | 2020-07-14 09:40 | RAD REPORT ---
EXAM DESCRIPTION: RAD - Chest Single View - 07/14/2020 9:19 am CLINICAL HISTORY: CHEST PAIN, sickle cell disease COMPARISON: Portable March 2020 TECHNIQUE: AP portable chest image was obtained 07/14/2020 9:19 am . FINDINGS: No new mass, consolidation or pulmonary edema. Prominent interstitial pattern has not garcia ged. Mild cardiomegaly stable. Vasculature within normal limits. Left-sided Port-A-Cath is in place. No measurable pleural effusion and no pneumothorax. No acute bony abnormality seen. No acute aortic f indings suspected. IMPRESSION: No acute cardiopulmonary process. Chest findings are stable from March 2020.
[2020-07-14 10:02] LABS: Absolute Lymphocytes (CBC) 3.1 K/uL (0.7-4.9); Basophils % 3.1 % (0-1.3); Hematocrit 22.2 % (36.0-45.0); Lymphocytes % 25.7 % (15.3-44.8); MPV 9.5 fL (7.6-11.3); RBC Red Blood Cell Count 2.39 M/uL (3.86-4.86)
[2020-07-14 10:20] LABS: Platelet Estimate ADEQ
[2020-07-14 10:21] LABS: Anisocytosis 1+; Blood Morphology Comment NOTED (NOT SEEN); Platelets, Giant P; Target Cells 1+
[2020-07-14 10:22] LABS: Howell-Jolly Bodies NOTED
[2020-07-14] MEDS ORDERED: HYDROMORPHONE HCL 1 MG/ML INJ ONE (10:33)
[2020-07-14] MEDS ORDERED: NA CHLORIDE 0.9% 50 ML ONE (10:33)
--- NOTE | 2020-07-14 11:16 | ER ---
Nurse's Notes [facility] Name: Gume Ortega Age: 29 yrs Sex: Female : 1990 Arrival Date: 07/14/2020 Time: 08:14 Bed 13 Private MD: Neil Benitez E Diagnosis: Sickle-cell/Hb-C disease with crisis Presentation: 07/14 08:22 Chief complaint: Patient states: Pain all over since yesterday. Coronavirus screen: [facility] Client denies travel out of the [place] in the last 14 days. At this time, the client does not indicate any symptoms associated with coronavirus-19. Ebola Screen: No symptoms or risks identified at this time. Initial Sepsis Screen: Does the patient meet any 2 criteria? RR > 20 per min. HR > 90 bpm. Yes Does the patient have a suspected source of infection? No. Patient's initial sepsis screen is negative. Risk Assessment: Do you want to hurt yourself or someone else? Patient reports no desire to harm self or others. Onset of symptoms was July 13, 2020. Care prior to arrival: None. 08:22 Method Of Arrival: Ambulatory [facility] 08:22 Acuity: MARILUZ 2 [facility] Triage Assessment: 08:25 General: Appears in no apparent distress. uncomfortable, Behavior is cooperative, jl7 anxious. Pain: Complains of pain in all over Pain currently is 10 out of 10 on a pain scale. Pain began 1 day ago. Is continuous. Neuro: Level of Consciousness is awake, alert, obeys commands, Oriented to person, place, time, situation. Cardiovascular: Patient's skin is warm and dry. Respiratory: Airway is patent Respiratory effort is even, unlabored, Respiratory pattern is symmetrical, tachypnea. Derm: Skin is dry, Skin is normal, Skin temperature is warm. 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 - Social history:: Smoking status: Patient denies any tobacco usage or history of. Patient uses street drugs, marijuana. Screenin:30 Abuse screen: Denies threats or abuse. Denies injuries from another. Nutritional jl7 screening: No deficits noted. Tuberculosis screening: No symptoms or risk factors identified. Fall Risk IV access (20 points). Total Jaime Fall Scale indicates No Risk (0-24 pts). Assessment: 08:30 General: See triage assessment. jl7 09:39 Reassessment: Patient appears in no apparent distress at this time. Patient and/or jl7 family updated on plan of care and expected duration. Pain level reassessed. Patient is alert, oriented x 3, equal unlabored respirations, skin warm/dry/pink. pain rated 6/10 at this time Patient states feeling better. 10:08 Reassessment: Pt requesting more pain medication, ERD notified, see MAR for orders. jl7 10:14 Reassessment: Small abrasion to left thumb, pt requested a Band-Aid, band-aide applied jl7 to abrasion. 11:03 Reassessment: Pt requesting more Benadryl, ERD notified, see MAR for orders. jl7 11:52 Reassessment: Port-a-cath dc'd initially without being flushed. Patient told of need to sr5 reaccess port-a-cath in order to flush. Port-a-cath reaccessed with 20g Peters needles x 1 attempt, flushed with 10 mL NS and 4 mL Heparin 100units/mL. Port-a-cath then dc'd, bandage applied, no active bleeding at time of discharge. Patient discharged via wheelchair, and picked up by family. Vital Signs: 08:22 BP 129 / 78; Pulse 92; Resp 21 S; Temp 98.2(O); Pulse Ox 95% on R/A; Weight 63.5 kg; jl7 Height 5 ft. 2 in. (157.48 cm); Pain 10/10; 09:39 BP 98 / 56; Pulse 62; Resp 17; Pulse Ox 99% ; Pain 7/10; jl7 10:14 BP 103 / 56; Pulse 66; Resp 17; Pulse Ox 99% ; jl7 11:04 BP 109 / 61; Pulse 88; Resp 17; Pulse Ox 100% ; Pain 5/10; jl7 08:22 Body Mass Index 25.60 (63.50 kg, 157.48 cm) jl7 ED Course: 08:14 Patient arrived in ED. mr 08:14 Neil Benitez MD is Private Physician. mr 08:17 Mateusz Butler RN is Primary Nurse. jl7 08:24 Triage completed. jl7 08:25 Arm band placed on right wrist. jl7 08:30 Patient has correct armband on for positive identification. Placed in gown. Bed in low jl7 position. Call light in reach. Side rails up X 1. Pulse ox on. NIBP on. 08:36 Chico Menezes MD is Attending Physician. kdr 08:55 Initial lab(s) drawn, by ri, sent to lab. Accessed Port-a-Cath. using 20G Nexia IV jl7 catheter ,sterile technique, per hospital protocol. Clean \T\ dry. Dressing intact. Good blood return. Flushes easily. 09:19 CXR XRAY In Process Unspecified. EDMS 10:25 Dressings: Band aid x 1 left thumb. jl7 11:15 Neil Benitez MD is Referral Physician. kdr 11:53 No provider procedures requiring assistance completed. IV discontinued, intact, jl7 bleeding controlled, No redness/swelling at site. Pressure dressing applied, Cath flushed with 5mL Heplock. Administered Medications: 08:58 Drug: Benadryl 25 mg Route: IVP; Site: Port-a-cath; jl7 09:38 Follow up: Response: No adverse reaction 7 09:00 Drug: NS 0.9% 1000 ml Route: IV; Rate: 1 bolus; Site: Port-a-cath; jl7 09:04 Follow up: administered in 100 mL NS over 1 hour jl7 09:00 Drug: Phenergan 12.5 mg Route: IVP; Site: Port-a-cath; jl7 09:38 Follow up: Response: No adverse reaction jl7 09:04 Drug: Dilaudid 2 mg Route: IVP; Site: Port-a-cath; jl7 09:38 Follow up: Response: Pain is decreased jl7 10:03 Follow up: infusion completed jl7 10:23 Drug: Dilaudid 1 mg {Note: placed in 100 mL NS.} Route: IVP; Site: Port-a-cath; jl7 10:52 Follow up: Response: No adverse reaction; Pain is decreased jl7 10:55 Drug: Benadryl 25 mg Route: IVP; Site: Port-a-cath; jl7 11:06 Follow up: Response: No adverse reaction jl7 11:30 Drug: Benadryl 50 mg Route: PO; jl7 11:53 Follow up: Response: No adverse reaction jl7 Intake: Outcome: 11:15 Discharge ordered by . kdr 11:53 Discharged to home via wheelchair, with family. jl7 11:53 Condition: stable 11:53 Discharge instructions given to patient, Instructed on discharge instructions, follow up and referral plans. Demonstrated understanding of instructions, follow-up care. 11:54 Patient left the ED. jl7 Signatures: Dispatcher [employer] EDMS Chico Menezes MD MD kdr Rivera, Mary mr Nick Link, RN RN sr5 Mateusz Butler RN RN jl7 Corrections: (The following items were deleted from the chart) 09:39 08:30 Reassessment: Patient appears in no apparent distress at this time. Patient jl7 and/or family updated on plan of care and expected duration. Pain level reassessed. Patient is alert, oriented x 3, equal unlabored respirations, skin warm/dry/pink. pain rated 6/10 at this time Patient states feeling better. jl7
--- NOTE | 2020-07-14 11:16 | EDPHYS ---
Physician Documentation [facility] Name: Gume Ortega Age: 29 yrs Sex: Female : 1990 Arrival Date: 07/14/2020 Time: 08:14 Bed 13 Private MD: Neil Benitez E ED Physician Chico Menezes HPI: 07/14 09:01 This 29 yrs old Black Female presents to ER via Ambulatory with complaints of Sickle kdr Cell Crisis. 09:01 The patient started to have generalized pain similar to her prior SCC pain at 9:00 PM kdr last night. She denies any other recurrences since her last visit in May. Onset: The symptoms/episode began/occurred gradually, last night. Severity of symptoms: At their worst the symptoms were moderate severe incapacitating just prior to arrival, in the emergency department the symptoms are unchanged. The patient has experienced similar episodes in the past, multiple times. The patient has not recently seen a physician. 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 - Social history:: Smoking status: Patient denies any tobacco usage or history of. Patient uses street drugs, marijuana. ROS: 09:01 Constitutional: Negative for fever, chills, and weight loss - generalized pain similar kdr to her prior SCC discomfort Eyes: Negative for injury, pain, redness, and discharge, ENT: Negative for injury, pain, and discharge, Neck: Negative for injury, pain, and swelling, Cardiovascular: Negative for chest pain, palpitations, and edema, Respiratory: Negative for shortness of breath, cough, wheezing, and pleuritic chest pain, Abdomen/GI: Negative for abdominal pain, nausea, vomiting, diarrhea, and constipation, Back: Negative for injury and pain, : Negative for injury, bleeding, discharge, and swelling, MS/Extremity: Negative for injury and deformity, Skin: Negative for injury, rash, and discoloration, Neuro: Negative for headache, weakness, numbness, tingling, and seizure activity. Psych: Negative for depression, anxiety, suicide ideation, homicidal ideation, and hallucinations, Allergy/Immunology: Negative for hives, rash, and allergies, Endocrine: Negative for neck swelling, polydipsia, polyuria, polyphagia, and marked weight changes, Hematologic/Lymphatic: Negative for swollen nodes, abnormal bleeding, and unusual bruising. Exam: 09:01 Constitutional: This is a well developed, well nourished patient who is awake, alert, kdr and in mild distress. Head/Face: Normocephalic, atraumatic. Eyes: Pupils equal round and reactive to light, extra-ocular motions intact. Lids and lashes normal. Conjunctiva and sclera are non-icteric and not injected. Cornea within normal limits. Periorbital areas with no swelling, redness, or edema. Neck: Trachea midline, no thyromegaly or masses palpated, and no cervical lymphadenopathy. Supple, full range of motion without nuchal rigidity, or vertebral point tenderness. No Meningismus. Chest/axilla: Normal chest wall appearance and motion. Nontender with no deformity. No lesions are appreciated. Cardiovascular: Regular rate and rhythm with a normal S1 and S2. No gallops, murmurs, or rubs. Normal PMI, no JVD. No pulse deficits. Respiratory: Lungs have equal breath sounds bilaterally, clear to auscultation and percussion. No rales, rhonchi or wheezes noted. No increased work of breathing, no retractions or nasal flaring. Abdomen/GI: Soft, non-tender, with normal bowel sounds. No distension or tympany. No guarding or rebound. No evidence of tenderness throughout. Back: No spinal tenderness. No costovertebral tenderness. Full range of motion. Skin: Warm, dry with normal turgor. Normal color with no rashes, no lesions, and no evidence of cellulitis. MS/ Extremity: Pulses equal, no cyanosis. Neurovascular intact. Full, normal range of motion. Neuro: Awake and alert, GCS 15, oriented to person, place, time, and situation. Cranial nerves II-XII grossly intact. Motor strength 5/5 in all extremities. Sensory grossly intact. Cerebellar exam normal. Normal gait. Psych: Awake, alert, with orientation to person, place and time. Behavior, mood, and affect are within normal limits. Vital Signs: 08:22 BP 129 / 78; Pulse 92; Resp 21 S; Temp 98.2(O); Pulse Ox 95% on R/A; Weight 63.5 kg; jl7 Height 5 ft. 2 in. (157.48 cm); Pain 10/10; 09:39 BP 98 / 56; Pulse 62; Resp 17; Pulse Ox 99% ; Pain 7/10; jl7 10:14 BP 103 / 56; Pulse 66; Resp 17; Pulse Ox 99% ; jl7 11:04 BP 109 / 61; Pulse 88; Resp 17; Pulse Ox 100% ; Pain 5/10; jl7 08:22 Body Mass Index 25.60 (63.50 kg, 157.48 cm) [facility] MDM: 09:01 Data reviewed: vital signs, nurses notes, lab test result(s), radiologic studies. kdr Counseling: I had a detailed discussion with the patient and/or guardian regarding: the historical points, exam findings, and any diagnostic results supporting the discharge/admit diagnosis, lab results, radiology results. 11:15 Patient medically screened. kdr 07/14 08:37 Order name: CBC with Diff; Complete Time: 11:17 kdr 07/14 08:37 Order name: Chem 7; Complete Time: 09:41 kdr 07/14 08:37 Order name: Retic Count; Complete Time: 11:17 kdr 07/14 08:37 Order name: CXR XRAY; Complete Time: 09:41 kdr 07/14 10:19 Order name: Manual Differential; Complete Time: 11:17 EDMS Administered Medications: 08:58 Drug: Benadryl 25 mg Route: IVP; Site: Port-a-cath; 09:38 Follow up: Response: No adverse reaction 09:00 Drug: NS 0.9% 1000 ml Route: IV; Rate: 1 bolus; Site: Port-a-cath; 09:04 Follow up: administered in 100 mL NS over 1 hour 09:00 Drug: Phenergan 12.5 mg Route: IVP; Site: Port-a-cath; jl7 09:38 Follow up: Response: No adverse reaction jl7 09:04 Drug: Dilaudid 2 mg Route: IVP; Site: Port-a-cath; jl7 09:38 Follow up: Response: Pain is decreased jl7 10:03 Follow up: infusion completed 7 10:23 Drug: Dilaudid 1 mg {Note: placed in 100 mL NS.} Route: IVP; Site: Port-a-cath; jl7 10:52 Follow up: Response: No adverse reaction; Pain is decreased jl7 10:55 Drug: Benadryl 25 mg Route: IVP; Site: Port-a-cath; jl7 11:06 Follow up: Response: No adverse reaction jl7 11:30 Drug: Benadryl 50 mg Route: PO; jl7 11:53 Follow up: Response: No adverse reaction jl7 Disposition: 07/14/20 11:15 Discharged to Home. Impression: Sickle-cell/Hb-C disease with crisis. - Condition is Stable. - Discharge Instructions: Sickle Cell Anemia, Adult, [id number]. - Medication Reconciliation Form, Thank You Letter form. - Follow up: Neil Benitez MD; When: 2 - 3 days; Reason: If symptoms return, Further diagnostic work-up, Recheck today's complaints, Continuance of care, Re-evaluation by your physician. - Problem is an acute exacerbation. - Symptoms have improved. Signatures: Dispatcher [employer] EDMS Chico Menezes MD MD kdr Mateusz Butler RN RN jl7 Corrections: (The following items were deleted from the chart) 11:54 11:15 07/14/2020 11:15 Discharged to Home. Impression: Sickle-cell/Hb-C disease with jl7 crisis. Condition is Stable. Forms are Medication Reconciliation Form, Thank You Letter, Antibiotic Education, Prescription Opioid Use. Follow up: Neil Benitez; When: 2 - 3 days; Reason: If symptoms return, Further diagnostic work-up, Recheck today's complaints, Continuance of care, Re-evaluation by your physician. Problem is an acute exacerbation. Symptoms have improved. kdr
[2020-07-14] MEDS ORDERED: DIPHENHYDRAMINE 25 MG TAB/CAP ONE (11:43)
[2020-07-14] MEDS ORDERED: HEPARIN 500 UNIT/5 ML SYR IV ONE (11:44)
[2020-07-14 12:01] VITALS: TEMP 98.2
[2020-07-14 12:05] VITALS: BP 109/61; O2SAT 100
== END 2020-07-14 11:54 | disposition home or self-care (01) ==
LOC: ER 08:10
DX: D57.00 Hb-SS disease with crisis, unspecified (principal); Z86.711 Personal history of pulmonary embolism
CPT/HCPCS: 85025; 80048; 36415; 85044; 71045; 96375; 96374; 99284; J2550; J1200 ×2; J1170 ×2; J1642; J7030

== ENCOUNTER 2020-08-31 13:59 | Emergency (ER) | payer OTHER ==
--- OUTSIDE RECORDS SUMMARY | 2020-08-31 14:04 | XMS REPORT | Continuity of Care Document ---
:1990 Author Organization [facility] t Address [address] [place] [address] Support Name Relationship Address Phone DENI Unavailable [id number] [facility] [phone] [address] [facility] [place] [address] DENI Unavailable [address] [facility] [phone] [address] [facility] [place] [address] JORDAN Unavailable [address] [facility] [phone] [place] [address] JORDAN Unavailable [address] [facility] [phone] [place] [address] CLINTON DELEON MD E Admitting Provider 1717 [facility] [address] [place] [address] JESSICA SIDDIQUI Primary Care Physician [address] [facility] [address] [place] [address] VIJAYA MULLEN MD A Emergency Provider [address] [facility] [place] [address] NAIMA MULLEN Attending Provider [address] [place] [address] JORDAN Next of Kin N Y [address] [place] [address] IZZY MULLEN, E Emergency Provider [address] [facility] [place] [place] [address] [place] [address] PHYSICIAN Primary Care Physician Unavailable Unavailab chrissy GRISSOM MD, MD Emergency Provider [address] [place] [address] OTHER, NAME IN NOTES Primary Care Physician Unavailable Sylvie caity SHIN MD, MD Emergency Provider [address] [place] [address] ISABELLA MULLEN MD MORE Admitting Provider [address] [place] [address] FRANCIS Primary Care Physician [address] [facility] [place] [address] MD AMRITA A Emergency Provider [facility] [place] [address] [address] [place] [address] Care Team Providers Name Role Phone Shaikh PAZ, Tasha Primary Care Physician ERIBERTO WOODRUFF Attending Clinician Unavailable Antonia CARTER Admitting Clinician Unavailable Payers Payer Name Policy Type Policy Effective Date Expiration Date Sour ce Number MEDICAID - [id number] 2015 [facility] MEDICAID MGD 00:00:00 - Medical [facility] Center STAR [id number]/2015-PresentMedic aid Contracted Problems Condition Condition Condition Status Onset Resolution Last Treating Co mments Source Name Details Category Date Date Treatment Clinician Date Leukocytos Leukocytos Disease Active [facility] Pneumonia Pneumonia Disease Active [facility] 00 [place] 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[facility]29 [facility] - anemia anemia 00:00: Medical 00 [place] 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[facility] 2[facility]28 [facility] - crisis crisis 00:00: Medical 00 Center Allergies, Adverse Reactions, Alerts Allergy Allergy Status Severity Reaction(s) Onset Inactive Treating Comm ents Source Name Type Date Date Clinician Ondanset Drug Active Nausea And [facility]ney Hcl Intolera Vomiting 2-28 [facility] - (Pf) nce 00:00: Medical 00 Center morphine DA Active [facility] 3[facility]11 [place] 00:00: d 00 [facility] TEGEDERM DA Active [facility] DRESSING 8-23 [place] 00:00: d 00 Medical [place] Family History Family Member Diagnosis Comments Start Date Stop Date Source Natural sister Unremarkable [facility] Natural brother Unremarkable [facility] Natural father Seizures [facility] Natural father Sickle cell trait [facility] Natural mother Sickle cell trait [facility] Social History Social Habit Start Date Stop Date Quantity Comments Source Sex Assigned At [facility] St Ariana ashford [facility] Tobacco use and 2018-08-02 2018-08-02 Never used [facility] Ariana dejon - exposure 00:00:00 00:00:00 [facility] Alcohol intake 2018-08-02 2018-08-02 Current JUDITH Nieves es - 00:00:00 00:00:00 non-drinker of Medical Ce nter alcohol (finding) Smoking Status Start Date Stop Date Source Never smoker [facility] dejon [facility] Center Medications Ordered Filled Start Stop Current [...] St 50,000 unit 2-25 le} capsule by [facility] - capsule 00:00: mouth once Medi rita 00 a week. Center PROAIR HFA 2018-0 Yes 1{puff} Inhale [address] 90 2-22 puff by [facility] - mcg/actuati 00:00: mouth via M edical on inhaler 00 inhaler Center every 6 (six) hours as needed. prochlorper 2018-0 Yes 1{tbl} Take [address] azine 1-14 tablet by [facility] - (COMPAZINE) 00:00: mouth Medic al 10 MG 00 every 8 Center tablet (eight) hours as needed nausea. Procedures Procedure Date / Time Performed Performing Clinician Sour e SARS-COV2/RT-PCR ([facility] 2019-11-13 05:40:00 [facility] [...] Medica l Center cervix (procedure) [code = 636534385] Future Scheduled [address] [facility] - Test 00:00:00 (procedure) [code = Medical Center 61007440] Future Scheduled 1997-09-[address] [...] 2019-06-09 2019-06-09 Inpatient E [facility] MED [id number] SW 09:53:00 05:29:00 2019-06-05 2019-06-05 Emergency E MHBL MHBL 7518 MHBL 00:19:00 00:19:00 2019-04-29 2019-04-29 Emergency E MHSW MHSW 7517 MHSW 19:58:00 19:58:00 2019-03-26 2019-03-26 Emergency E MHBL MHBL 7516 MHBL 18:25:00 18:25:00 2019-03-09 2019-03-09 Emergency E MHBL MHBL 7515 MHBL 21:18:00 21:18:00 2019-03-07 2019-03-07 Emergency E MHBL MHBL 7514 MHBL 16:46:00 16:46:00 2019-01-12 2019-01-12 Emergency E BL MHBL 7513 BL 20:51:00 20:51:00 2019-01-05 2019-01-05 Emergency E MHBL BL 7512 BL 06:56:00 06:56:00 2019-01-03 2019-01-03 Emergency E MHBL BL 7511 BL 04:27:00 04:27:00 2018-07-20 2018-07-20 Emergency E BL BL 7510 BL 10:30:00 10:30:00 Results Test Description Test Time Test Comments Results Result Comments Source SARS-CoV2/RT-PCR ([facility]) 2019-11-14 17:47:00 Test Item Value Reference Range Interpretation Comme nts SARS-COV2/RT-PCR (test code = Negative Not Detected, Negative 91655-7) SARS-COV-2 [facility] (test code = 47267-2) RUSLAN (test code = RUSLAN) Negative results [...] of the Act. Fact Sheet for Healthcare Providers:https://www.IQ Elite .RECESS./Documents/Xpert%20Xpress %20SARS%20CoV-2/Fact%20Sheets /302-3802%37HIFB-GPB-3%20HEAL THCARE%20PROVIDERS%20FACT%20S HEET.pdf Fact Sheet for Healthcare Patients:https://www.Responsys/Documents/Xpert%20Xpress% 20SARS%20CoV-2/Fact%20Sheets/ 3023801%32FONH-JFH-7%20PATIE NT%20FACT%20SHEET.pdf Performing Laboratory:[facility], [place] [address] [place], [place] [address]ARS-COV2/RT-PCR ([facility])2019-11-14 17:47:00 Test Item Value Reference Range Interpretation Comments SARS-COV2/RT-PCR (test code = Negative Not Detected, Negative 4482156) SARS-COV-2 PERFORMING LAB [facility] (test code = 7763036) Negative results do not preclude SARS-CoV-2 infection [...] of the Act.Fact Sheet for Healthcare Pro viders:https://www.SendUs/Documents/Xpert%20Xpress%20SARS%20CoV-2/Fact%20Sh eets/3023802%46EMWD-BIS-5%20HEALTHCARE%20PROVIDERS%20FACT%20SHEET.pdfFact Sheet for Healthcare Patients:https://www.Gezlong/Documents/Xpert%20Xpress%20SARS%20CoV-2/Fact%20Sheets/302-3801%20SARS-COV -2%20PATIENT%20FACT%20SHEET.pdfPerforming Laboratory:[facility], [place] [address]HTP W/PLT COUNT & AUTO DIFFERENTIAL 2018-08-10 08:25:00 [...] 3438) Received comment: User comments: Slide comments:RETICULOCYTE [id number] 08:06:00 Test Item Value Reference Range Interpretation Comments RETICULOCYTE COUNT PCT (BEAKER) (test 25.0 % 0.5-1.7 H code = 575) CBC W/PLT COUNT & AUTO [id number] 09:27:00 Test Item Value Reference Range Interpretation [...] 3438) Received comment: User comments: Slide comments:RETICULOCYTE [id number] 05:01:00 Test Item Value Reference Range Interpretation Comments RETICULOCYTE COUNT PCT (BEAKER) (test 21.6 % 0.5-1.7 H code = 575) CBC W/PLT COUNT & AUTO [id number] 15:17:00 Test Item Value Reference Range Interpretation [...] H (BEAKER) (test code = 413) RETICULOCYTE [id number] 08:44:00 Test Item Value Reference Range Interpretation Comments RETICULOCYTE COUNT PCT (BEAKER) (test 23.8 % 0.5-1.7 H code = 575) BLOOD [id number] 14:01:00 Test Item Value Reference Range Interpretation Comments CULTURE (BEAKER) (test No growth in 5 days code = 1095) BLOOD [id number] 12:01:00 Test Item Value Reference Range Interpretation Comments CULTURE (BEAKER) (test No growth in 5 days code = 1095) CBC W/PLT COUNT & AUTO [id number] 11:38:00 Test Item Value Reference Range Interpretation [...] 3438) Received comment: User comments: Slide comments:RETICULOCYTE [id number] 07:44:00 Test Item Value Reference Range Interpretation Comments RETICULOCYTE COUNT PCT (BEAKER) (test 27.0 % 0.5-1.7 H code = 575) RETICULOCYTE [id number] 07:19:00 Test Item Value Reference Range Interpretation Comments RETICULOCYTE COUNT PCT (BEAKER) (test 22.7 % 0.5-1.7 H code = 575) CBC W/PLT COUNT & AUTO [id number] 12:07:00 Test Item Value Reference Range Interpretation [...] 3438) Received comment: User comments: Slide comments:RETICULOCYTE [id number] 06:14:00 Test Item Value Reference Range Interpretation Comments RETICULOCYTE COUNT PCT (BEAKER) (test 21.9 % 0.5-1.7 H code = 575) [id number] 06:02:00 Test Item Value Reference Range Interpretation Comments PHOSPHORUS (BEAKER) (test code = 3.8 mg/dL 2.3-4.7 604) [id number] 06:02:00 Test Item Value Reference Range Interpretation Comments MAGNESIUM (BEAKER) (test code = 1.8 mg/dL 1.6-2.6 627) BASIC METABOLIC [id number] 06:02:00 Test Item Value Reference Range Interpretation [...] Specimen moderately ictericCBC W/PLT COUNT & AUTO [id number] 09:09:00 Test Item Value Reference Range Interpretation [...] = 3438) Received comment: User comments: Slide comments:[id number] 04:11:00 Test Item Value Reference Range Interpretation Comments PHOSPHORUS (BEAKER) (test code = 3.3 mg/dL 2.3-4.7 604) [id number] 04:11:00 Test Item Value Reference Range Interpretation Comments MAGNESIUM (BEAKER) (test code = 1.6 mg/dL 1.6-2.6 627) BASIC METABOLIC [id number] 04:11:00 Test Item Value Reference Range Interpretation [...] FOR DIALYSIS PATIEN TS. Specimen slightly ictericRETICULOCYTE [id number] 03:54:00 Test Item Value Reference Range Interpretation Comments RETICULOCYTE COUNT PCT (BEAKER) (test 20.4 % 0.5-1.7 H code = 575) CBC W/PLT COUNT & AUTO [id number] 18:30:00 Test Item Value Reference Range Interpretation [...] = 413) CBC W/PLT COUNT & AUTO [id number] 10:51:00 Test Item Value Reference Range Interpretation [...] 3438) Received comment: User comments: Slide comments:RETICULOCYTE [id number] 10:08:00 Test Item Value Reference Range Interpretation Comments RETICULOCYTE COUNT PCT (BEAKER) (test 14.4 % 0.5-1.7 H code = 575) CBC W/PLT COUNT & AUTO [id number] 09:30:00 Test Item Value Reference Range Interpretation [...] = 3438) Received comment: User comments: Slide comments:[id number] 03:32:00 Test Item Value Reference Range Interpretation Comments PHOSPHORUS (BEAKER) (test code = 3.5 mg/dL 2.3-4.7 604) [id number] 03:32:00 Test Item Value Reference Range Interpretation Comments MAGNESIUM (BEAKER) (test code = 1.8 mg/dL 1.6-2.6 627) BASIC METABOLIC [id number] 03:32:00 Test Item Value Reference Range Interpretation [...] ictericCT, CHEST WITH IV CONTRAST- PE TEST [id number] 14:01:00FINAL REPORT CT scan of the chest. [...] MDReport Verified Date/Time: 08/02/2018 14:01:29 Reading Location: [place] [address]X [facility] Reading Room URINALYSIS W/ REFLEX URINE [id number] 11:27:00 Test Item Value Reference Range Interpretation [...] 516) SOURCE(BEAKER) (test code = 2795) SCREEN, [id number] 11:15:00 Test Item Value Reference Range Interpretation Comments TEST URINE (BEAKER) (test Negative code = 583) RETICULOCYTE [id number] 04:43:00 Test Item Value Reference Range Interpretation Comments RETICULOCYTE COUNT PCT (BEAKER) (test 13.2 % 0.5-1.7 H code = 575) RAD, CHEST, 2 [id number] 03:54:00Reason for exam:->SICKLE CELL PAIN CRISISIs the [...] Ferris MDReport Verified Date/Time: 08/02/2018 03:54:52Reading Location: [address] Reading Room CBC W/PLT COUNT & [...] (BEAKER) (test code = 417) COMPREHENSIVE METABOLIC [id number] 02:42:00 Test Item Value Reference Range Interpretation [...]
[2020-08-31] MEDS ORDERED: PROMETHAZINE INJ 25 MG/ML AMP ONE (17:22)
[2020-08-31 17:23] LABS: Absolute Lymphocytes (CBC) 4.1 K/uL (0.7-4.9); Basophils % 0.5 % (0-1.3); Hematocrit 25.2 % (36.0-45.0); Lymphocytes % 25.8 % (15.3-44.8); MPV 8.2 fL (7.6-11.3); RBC Red Blood Cell Count 2.64 M/uL (3.86-4.86)
[2020-08-31] MEDS ORDERED: NA CHLORIDE 0.9% 1,000 ML ONE (17:23)
[2020-08-31] MEDS ORDERED: HYDROMORPHONE HCL 1 MG/ML INJ ONE ×2 (17:23→18:33)
[2020-08-31 17:59] LABS: BUN Blood Urea Nitrogen 6 mg/dL (7-18); Bicarbonate 26 mmol/L (21-32); Glucose Level 96 mg/dL (74-106); Potassium 3.4 mmol/L (3.5-5.1); Sodium Level 139 mmol/L (136-145)
--- NOTE | 2020-08-31 18:29 | EDPHYS ---
Physician Documentation [facility] Name: Gume Ortega Age: 29 yrs Sex: Female : 1990 Arrival Date: 08/31/2020 Time: 14:01 Bed 7 Private MD: Neil Benitez E ED Physician Ariel Moreno HPI: 08/31 17:01 This 29 yrs old Black Female presents to ER via Ambulatory with complaints of Sickle rn Cell Crisis. 17:01 Reports 2 days of generalized pain identical to previous sickle cell crises. Does not rn feel sick, no fever, no cough or sob. Last blood transfusion this past month. . Onset: The symptoms/episode began/occurred yesterday. Severity of symptoms: At their worst the symptoms were moderate in the emergency department the symptoms are unchanged. The patient has experienced similar episodes in the past. The patient has been recently seen by a physician:. Historical: - Allergies: 14:21 Zofran; ll1 - Home Meds: 16:16 alprazolam 1 mg Oral tab [Active]; Dilaudid 8 mg Oral tab 1 tab every 6 hours [Active]; tr6 Eliquis 2.5 mg Oral tab 1 tab 2 times per day [Active]; folic acid 800 mcg Oral tab 1 tab once daily [Active]; Vitamin D Oral [Active]; - PMHx: 14:21 blood clot in lung; Sickle Cell; ll1 - PSHx: 14:21 port-a-cath; ll1 - Immunization history:: Flu vaccine is not up to date. - Social history:: Smoking status: Patient denies any tobacco usage or history of. - Family history:: not pertinent. - Hospitalizations: : No recent hospitalization is reported. ROS: 17:01 Constitutional: Negative for fever, chills, and weight loss, Eyes: Negative for injury, rn pain, redness, and discharge, Neck: Negative for injury, pain, and swelling, Cardiovascular: Negative for chest pain, palpitations, and edema, Respiratory: Negative for shortness of breath, cough, wheezing, and pleuritic chest pain, Abdomen/GI: Negative for abdominal pain, nausea, vomiting, diarrhea, and constipation, Back: Negative for injury and pain, MS/Extremity: Negative for injury and deformity, Skin: Negative for injury, rash, and discoloration, Neuro: Negative for headache, weakness, numbness, tingling, and seizure. Exam: 17:01 Constitutional: This is a well developed, well nourished patient who is awake, alert, rn and in no acute distress. Head/Face: Normocephalic, atraumatic. Cardiovascular: Regular rate and rhythm. No pulse deficits. Respiratory: No increased work of breathing, no retractions or nasal flaring. Abdomen/GI: soft, non-tender Skin: Warm, dry with normal turgor. Normal color with no rashes, no lesions, and no evidence of cellulitis. MS/ Extremity: Pulses equal, no cyanosis. Neurovascular intact. Full, normal range of motion. Equal circumference. Neuro: Awake and alert, GCS 15 Vital Signs: 14:21 BP 107 / 72; Pulse 70; Resp 17; Temp 98.3; Pulse Ox 98% ; Weight 72.57 kg; Height 5 ft. ll1 2 in. (157.48 cm); Pain 10/10; 17:18 BP 116 / 61; Pulse 85; Resp 16; Pulse Ox 100% ; tr6 18:29 BP 106 / 70; Pulse 61; Resp 17; Pulse Ox 100% on R/A; tw2 14:21 Body Mass Index 29.26 (72.57 kg, 157.48 cm) ll1 MDM: 16:22 Patient medically screened. rn 18:28 Differential Diagnosis sickle cell crisis. Data reviewed: vital signs, nurses notes, staff internist office based only test result(s), and as a result, I will discharge patient. Counseling: I had a detailed discussion with the patient and/or guardian regarding: the historical points, exam findings, and any diagnostic results supporting the discharge/admit diagnosis, lab results, the need for outpatient follow up, to return to the emergency department if symptoms worsen or persist or if there are any questions or concerns that arise at home. Response to treatment: the patient's symptoms have markedly improved after treatment, and as a result, I will discharge patient. Special discussion: I discussed with the patient/guardian in detail that at this point there is no indication for admission to the hospital. It is understood, however, that if the symptoms persist or worsen the patient needs to return immediately for re-evaluation. 08/31 16:36 Order name: CBC with Diff; Complete Time: 17:54 rn 08/31 16:36 Order name: BMP rn 08/31 16:36 Order name: Retic Count; Complete Time: 17:54 rn 08/31 16:36 Order name: IV Start: access port; Complete Time: 17:17 rn Administered Medications: 17:17 Drug: Dilaudid (HYDROmorphone) 1 mg Route: IVP; Site: Port-a-cath; tr6 17:30 Follow up: Response: No adverse reaction; Pain is decreased tr6 17:18 Drug: Phenergan 25 mg Route: IVP; Site: Port-a-cath; tr6 17:18 Drug: NS 0.9% 1000 ml Route: IV; Rate: 1000 ml; Site: Port-a-cath; tr6 18:42 Follow up: IV Intake: 1000ml tw2 18:18 Drug: Dilaudid (HYDROmorphone) 1 mg Route: IVP; Site: Port-a-cath; tr6 18:42 Follow up: Response: No adverse reaction; Marked relief of symptoms; Pain is decreased; tw2 Other 18:30 Drug: Benadryl (diphenhydrAMINE) 25 mg Route: IVP; Site: Port-a-cath; tw2 18:46 Follow up: Response: No adverse reaction; Marked relief of symptoms tw2 Disposition: 08/31/20 18:28 Discharged to Home. Impression: Other sickle-cell disorders with crisis, unspecified. - Condition is Stable. - Discharge Instructions: Sickle Cell Anemia, Adult, Kfxu-[id number]-Hlie. - Medication Reconciliation Form, Thank You Letter, Antibiotic Education, Prescription Opioid Use, Work release form, Family Work Release form. - Follow up: Private Physician; When: As needed; Reason: Recheck today's complaints, Re-evaluation by your physician. - Problem is chronic. - Symptoms have improved. Signatures: Dispatcher [employer] EDMS Ariel Moreno MD MD rn Wise, Tara, RN RN tw2 Mariposa Urbina RN RN ll1 Judi Craven RN RN tr6 Corrections: (The following items were deleted from the chart) 18:49 18:28 08/31/2020 18:28 Discharged to Home. Impression: Other sickle-cell disorders with tw2 crisis, unspecified. Condition is Stable. Discharge Instructions: Sickle Cell Anemia, Adult, [id number]. Forms are Medication Reconciliation Form, Thank You Letter, Antibiotic Education, Prescription Opioid Use. Follow up: Private Physician; When: As needed; Reason: Recheck today's complaints, Re-evaluation by your physician. Problem is chronic. Symptoms have improved. rn
--- NOTE | 2020-08-31 18:29 | ER ---
Nurse's Notes [facility] Name: Gume Ortega Age: 29 yrs Sex: Female : 1990 Arrival Date: 08/31/2020 Time: 14:01 Bed 7 Private MD: Neil Benitez E Diagnosis: Other sickle-cell disorders with crisis, unspecified Presentation: 08/31 14:21 Chief complaint: Patient states: Pain all over since yesterday. No SOB or cough. States ll1 she is having a sickle cell crisis. Coronavirus screen: Client denies travel out of the [place] in the last 14 days. At this time, the client does not indicate any symptoms associated with coronavirus-19. Ebola Screen: Patient denies travel to an Ebola-affected area in the 21 days before illness onset. Initial Sepsis Screen: Does the patient meet any 2 criteria? No. Patient's initial sepsis screen is negative. Does the patient have a suspected source of infection? No. Patient's initial sepsis screen is negative. Risk Assessment: Do you want to hurt yourself or someone else? Patient reports no desire to harm self or others. Onset of symptoms was August 30, 2020. 14:21 Method Of Arrival: Ambulatory ll1 14:21 Acuity: MARILUZ 3 ll1 Historical: - Allergies: 14:21 Zofran; ll1 - Home Meds: 16:16 alprazolam 1 mg Oral tab [Active]; Dilaudid 8 mg Oral tab 1 tab every 6 hours [Active]; tr6 Eliquis 2.5 mg Oral tab 1 tab 2 times per day [Active]; folic acid 800 mcg Oral tab 1 tab once daily [Active]; Vitamin D Oral [Active]; - PMHx: 14:21 blood clot in lung; Sickle Cell; ll1 - PSHx: 14:21 port-a-cath; ll1 - Immunization history:: Flu vaccine is not up to date. - Social history:: Smoking status: Patient denies any tobacco usage or history of. - Family history:: not pertinent. - Hospitalizations: : No recent hospitalization is reported. Screenin:14 Nutritional screening: No deficits noted. Tuberculosis screening: No symptoms or risk tr6 factors identified. Fall Risk None identified. 18:44 Abuse screen: pt denies any abuse. tw2 Assessment: 16:18 General: Appears pt c/o generalized pain. Pain: Aggravated by pt c/o generalized pain. tr6 Neuro: No deficits noted. Cardiovascular: No deficits noted. Respiratory: No deficits noted. GI: No deficits noted. : No deficits noted. EENT: No deficits noted. Derm: No deficits noted. Musculoskeletal: No deficits noted. Injury Description:. 18:44 Reassessment: Patient appears in no apparent distress at this time. No changes from tw2 previously documented assessment. Patient and/or family updated on plan of care and expected duration. Pain level reassessed. Patient is alert, oriented x 3, equal unlabored respirations, skin warm/dry/pink. Patient denies pain at this time. Patient states feeling better. Patient states symptoms have improved. discharge instructions reviewed with pt. pt verbalized understanding. Vital Signs: 14:21 BP 107 / 72; Pulse 70; Resp 17; Temp 98.3; Pulse Ox 98% ; Weight 72.57 kg; Height 5 ft. ll1 2 in. (157.48 cm); Pain 10/10; 17:18 BP 116 / 61; Pulse 85; Resp 16; Pulse Ox 100% ; tr6 18:29 BP 106 / 70; Pulse 61; Resp 17; Pulse Ox 100% on R/A; tw2 14:21 Body Mass Index 29.26 (72.57 kg, 157.48 cm) ll1 ED Course: 14:01 Patient arrived in ED. am2 14:01 Neil Benitez MD is Private Physician. am2 14:21 Arm band placed on. ll1 14:22 Triage completed. ll1 16:11 Judi Craven, SHYAM is Primary Nurse. jl7 16:12 Patient has correct armband on for positive identification. Placed in gown. Bed in low tr6 position. Call light in reach. Side rails up X2. Pulse ox on. NIBP on. Door closed. Noise minimized. Visitors limited. Lights dimmed. Warm blanket given. Head of bed. Diet: Patient is NPO. npo pending w/u. 16:20 No apparent distress. pt resting comfortably in bed. pending MD orders. will continue tr6 to monitor. 16:22 Ariel Moreno MD is Attending Physician. rn 17:00 Inserted klarissa cath to left chest successfully accessed by this RN. tr6 17:17 Retic Count Sent. tr6 17:17 BMP Sent. tr6 17:17 CBC with Diff Sent. tr6 18:43 IV discontinued, bleeding controlled, No redness/swelling at site. Pressure dressing tw2 applied. Administered Medications: 17:17 Drug: Dilaudid (HYDROmorphone) 1 mg Route: IVP; Site: Port-a-cath; tr6 17:30 Follow up: Response: No adverse reaction; Pain is decreased tr6 17:18 Drug: Phenergan 25 mg Route: IVP; Site: Port-a-cath; tr6 17:18 Drug: NS 0.9% 1000 ml Route: IV; Rate: 1000 ml; Site: Port-a-cath; tr6 18:42 Follow up: IV Intake: 1000ml tw2 18:18 Drug: Dilaudid (HYDROmorphone) 1 mg Route: IVP; Site: Port-a-cath; tr6 18:42 Follow up: Response: No adverse reaction; Marked relief of symptoms; Pain is decreased; tw2 Other 18:30 Drug: Benadryl (diphenhydrAMINE) 25 mg Route: IVP; Site: Port-a-cath; tw2 18:46 Follow up: Response: No adverse reaction; Marked relief of symptoms tw2 Intake: 18:42 IV: 1000ml; Total: 1000ml. tw2 Outcome: 18:28 Discharge ordered by . rn 18:49 Patient left the ED. tw2 Signatures: Ariel Moreno MD MD rn Wise, Tara, RN RN tw2 Mateusz Butler RN RN jl7 Ching Matt 2 Mariposa Urbina RN RN ll1 Judi Craven RN RN tr6
[2020-08-31] MEDS ORDERED: DIPHENHYDRAMINE 50 MG/ML VIAL ONE (18:50)
[2020-08-31] MEDS ORDERED: HEPARIN 500 UNIT/5 ML SYR IV ONE (18:55)
[2020-08-31 18:56] VITALS: TEMP 98.3
[2020-08-31 18:57] VITALS: O2SAT 100
[2020-08-31 18:58] VITALS: BP 106/70
== END 2020-08-31 18:49 | disposition home or self-care (01) ==
LOC: ER 13:59
DX: D57.819 Other sickle-cell disorders with crisis, unspecified (principal); Z79.02 Long term (current) use of antithrombotics/antiplatelets; Z88.8 Allergy status to other drugs, medicaments and biological substances
CPT/HCPCS: 85025; 80048; 36415; 85044; J2550; J1200; J1170 ×2; J1642; J7030; 96374; 96375; 99284

== ENCOUNTER 2020-09-29 22:32 | Inpatient (IN) | payer OTHER ==
--- OUTSIDE RECORDS SUMMARY | 2020-09-29 22:37 | XMS REPORT | Continuity of Care Document ---
:1990 Author Organization [facility] t Address [address] [place] [address] Support Name Relationship Address Phone DENI Unavailable [id number] [facility] [phone] [address] [place] [address] DENI Unavailable [phone] [facility] [phone] [address] [facility] [place] [address] JORDAN Unavailable [phone] [facility] [phone] [place] [address] JORDAN Unavailable [phone] [facility] [phone] [place] [address] CLINTON DELEON MD E Admitting Provider [address] [facility] [address] [place] [address] JESSICA SIDDIQUI Primary Care Physician [address] [facility] [address] [place] [address] VIJAYA MULLEN MD A Emergency Provider [address] [facility] [place] [address] NAIMA MULLEN Attending Provider [address] [place] [address] JORDAN Next of Kin [address] [place] [address] IZZY MULLEN, E Emergency Provider [address] [facility] [address] [place] [address] PHYSICIAN Primary Care Physician Unavailable Unavailab chrissy GRISSOM MD, MD Emergency Provider [address] [place] [address] OTHER, NAME IN NOTES Primary Care Physician Unavailable Sylvie vailable KIP MULLEN MD Emergency Provider [address] [place] [address] ISABELLA MULLEN MD MORE Admitting Provider [address] [place] [address] FRANCIS Primary Care Physician [address] [facility] [place] [address] MD AMRITA A Emergency Provider [place] [address] [address] [place] [address] Care Team Providers Name Role Phone Shaikh PAZ, Tasha Primary Care Physician ERIBERTO WOODRUFF Attending Clinician Unavailable Antonia CARTER Admitting Clinician Unavailable Payers Payer Name Policy Type Policy Effective Date Expiration Date Sour ce Number MEDICAID - [id number] 2015 [facility] MEDICAID MGD 00:00:00 [facility] [id number]/2015-PresentMedic aid Contracted Problems Condition Condition Condition Status Onset Resolution Last Treating Co mments Source Name Details Category Date Date Treatment Clinician Date Leukocytos Leukocytos Disease Active [facility] 00 [place] Pneumonia Pneumonia Disease [facility] 00 [place] 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[facility] - anemia anemia 00:00: Medical 00 [place] 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[facility] - crisis crisis 00:00: Medical 00 Center Allergies, Adverse Reactions, Alerts Allergy Allergy Status Severity Reaction(s) Onset Inactive Treating Comm ents Source Name Type Date Date Clinician Ondanset Drug Active Nausea And [facility] Hcl Intolera Vomiting 2-28 [facility] - (Pf) nce 00:00: Medical 00 [place] morphine DA Active [facility] 3[facility]11 [place] 00:00: d 00 [facility] TEGEDERM DA Active [facility] DRESS[facility]23 [place] 00:00: d 00 [facility] Family History Family Member Diagnosis Comments Start Date Stop Date Source Natural sister Unremarkable [facility] Natural brother Unremarkable [facility] Natural father Seizures [facility] Natural father Sickle cell trait [facility] Natural mother Sickle cell trait [facility] Social History Social Habit Start Date Stop Date Quantity Comments Source [facility] Tobacco use and 2018-08-02 2018-08-02 Never used [facility] dejon - exposure 00:00:00 00:00:00 [facility] Alcohol intake 2018-08-02 2018-08-02 Current [facility] Gladys es - 00:00:00 00:00:00 non-drinker of Medical Ce nter alcohol (finding) Smoking Status Start Date Stop Date Source Never smoker [facility] dejon [facility] Center Medications Ordered Filled Start Stop Current [...] 2.5 mg Tab 14:39: mouth 2 Medi riat tablet 58 (two) Center times daily. ALPRAZolam [...] Time Performed Performing Clinician Sourc e SARS-COV2/RT-PCR ([facility] 2019-11-13 05:40:00 [facility] [...] Medica l Center cervix (procedure) [code = 379880189] Future Scheduled [address] [facility] - Test 00:00:00 (procedure) [code = Medical Center 94456186] Future Scheduled 1997-09-[address] [...] 16:46:00 16:46:00 2019-01-12 2019-01-12 Emergency E BL BL [id number] BL 20:51:00 20:51:00 2019-01-05 2019-01-05 Emergency E MHBL BL 7512 BL 06:56:00 06:56:00 2019-01-03 2019-01-03 Emergency E MHBL BL 7511 BL 04:27:00 04:27:00 2018-07-20 2018-07-20 Emergency E BL BL 7510 BL 10:30:00 10:30:00 Results Test Description Test Time Test Comments Results Result Comments Source SARS-CoV2/RT-PCR ([facility]) 2019-11-14 17:47:00 Test Item Value Reference Range Interpretation Comme nts SARS-COV2/RT-PCR (test code = Negative Not Detected, Negative 69205-3) SARS-COV-2 [facility] (test code = 83906-5) RUSLAN (test code = RUSLAN) Negative results [...] of the Act. Fact Sheet for Healthcare Providers:https://www.[employer] .[employer]/Documents/Xpert%20Xpress %20SARS%20CoV-2/Fact%20Sheets /302-2702%54ANNW-UGA-8%20HEAL THCARE%20PROVIDERS%20FACT%20S HEET.pdf Fact Sheet for Healthcare Patients:https://www.[employer]/Documents/Xpert%20Xpress% 20SARS%20CoV-2/Fact%20Sheets/ 3023801%02RJMK-ZRG-2%20PATIE NT%20FACT%20SHEET.pdf Performing Laboratory:[facility] [place] [address] [facility])2019-11-14 17:47:00 Test Item Value Reference Range Interpretation Comments SARS-COV2/RT-PCR (test code = Negative Not Detected, Negative 5159347) SARS-COV-[address] [facility] (test code = 5500009) Negative results do not preclude SARS-CoV-2 infection [...] of the Act.Fact Sheet for Healthcare Pro viders:https://www.[employer]/Documents/Xpert%20Xpress%20SARS%20CoV-2/Fact%20Sh eets/302-2572%37QUBK-DIA-8%20HEALTHCARE%20PROVIDERS%20FACT%20SHEET.pdfFact Sheet for Healthcare Patients:https://www.[employer]/Documents/Xpert%20Xpress%20SARS%20CoV-2/Fact%20Sheets/302-3801%20SARS-COV -2%20PATIENT%20FACT%20SHEET.pdfPerforming Laboratory:[facility], [place] [address]XBM W/PLT COUNT & AUTO DIFFERENTIAL 2018-08-10 08:25:00 [...] 3438) Received comment: User comments: Slide comments:RETICULOCYTE [id number] 08:06:00 Test Item Value Reference Range Interpretation Comments RETICULOCYTE COUNT PCT (BEAKER) (test 25.0 % 0.5-1.7 H code = 575) CBC W/PLT COUNT & AUTO [id number] 09:27:00 Test Item Value Reference Range Interpretation [...] 3438) Received comment: User comments: Slide comments:RETICULOCYTE [id number] 05:01:00 Test Item Value Reference Range Interpretation Comments RETICULOCYTE COUNT PCT (BEAKER) (test 21.6 % 0.5-1.7 H code = 575) CBC W/PLT COUNT & AUTO [id number] 15:17:00 Test Item Value Reference Range Interpretation [...] H (BEAKER) (test code = 413) RETICULOCYTE [id number] 08:44:00 Test Item Value Reference Range Interpretation Comments RETICULOCYTE COUNT PCT (BEAKER) (test 23.8 % 0.5-1.7 H code = 575) BLOOD [id number] 14:01:00 Test Item Value Reference Range Interpretation Comments CULTURE (BEAKER) (test No growth in 5 days code = 1095) BLOOD [id number] 12:01:00 Test Item Value Reference Range Interpretation Comments CULTURE (BEAKER) (test No growth in 5 days code = 1095) CBC W/PLT COUNT & AUTO [id number] 11:38:00 Test Item Value Reference Range Interpretation [...] 3438) Received comment: User comments: Slide comments:RETICULOCYTE [id number] 07:44:00 Test Item Value Reference Range Interpretation Comments RETICULOCYTE COUNT PCT (BEAKER) (test 27.0 % 0.5-1.7 H code = 575) RETICULOCYTE [id number] 07:19:00 Test Item Value Reference Range Interpretation Comments RETICULOCYTE COUNT PCT (BEAKER) (test 22.7 % 0.5-1.7 H code = 575) CBC W/PLT COUNT & AUTO [id number] 12:07:00 Test Item Value Reference Range Interpretation [...] 3438) Received comment: User comments: Slide comments:RETICULOCYTE [id number] 06:14:00 Test Item Value Reference Range Interpretation Comments RETICULOCYTE COUNT PCT (BEAKER) (test 21.9 % 0.5-1.7 H code = 575) [id number] 06:02:00 Test Item Value Reference Range Interpretation Comments PHOSPHORUS (BEAKER) (test code = 3.8 mg/dL 2.3-4.7 604) [id number] 06:02:00 Test Item Value Reference Range Interpretation Comments MAGNESIUM (BEAKER) (test code = 1.8 mg/dL 1.6-2.6 627) BASIC METABOLIC [id number] 06:02:00 Test Item Value Reference Range Interpretation [...] Specimen moderately ictericCBC W/PLT COUNT & AUTO [id number] 09:09:00 Test Item Value Reference Range Interpretation [...] = 3438) Received comment: User comments: Slide comments:[id number] 04:11:00 Test Item Value Reference Range Interpretation Comments PHOSPHORUS (BEAKER) (test code = 3.3 mg/dL 2.3-4.7 604) [id number] 04:11:00 Test Item Value Reference Range Interpretation Comments MAGNESIUM (BEAKER) (test code = 1.6 mg/dL 1.6-2.6 627) BASIC METABOLIC [id number] 04:11:00 Test Item Value Reference Range Interpretation [...] FOR DIALYSIS PATIEN TS. Specimen slightly ictericRETICULOCYTE [id number] 03:54:00 Test Item Value Reference Range Interpretation Comments RETICULOCYTE COUNT PCT (BEAKER) (test 20.4 % 0.5-1.7 H code = 575) CBC W/PLT COUNT & AUTO [id number] 18:30:00 Test Item Value Reference Range Interpretation [...] = 413) CBC W/PLT COUNT & AUTO [id number] 10:51:00 Test Item Value Reference Range Interpretation [...] 3438) Received comment: User comments: Slide comments:RETICULOCYTE [id number] 10:08:00 Test Item Value Reference Range Interpretation Comments RETICULOCYTE COUNT PCT (BEAKER) (test 14.4 % 0.5-1.7 H code = 575) CBC W/PLT COUNT & AUTO [id number] 09:30:00 Test Item Value Reference Range Interpretation [...] = 3438) Received comment: User comments: Slide comments:[id number] 03:32:00 Test Item Value Reference Range Interpretation Comments PHOSPHORUS (BEAKER) (test code = 3.5 mg/dL 2.3-4.7 604) [id number] 03:32:00 Test Item Value Reference Range Interpretation Comments MAGNESIUM (BEAKER) (test code = 1.8 mg/dL 1.6-2.6 627) BASIC METABOLIC [id number] 03:32:00 Test Item Value Reference Range Interpretation [...] ictericCT, CHEST WITH IV CONTRAST- PE TEST [id number] 14:01:00FINAL REPORT CT scan of the chest. [...] MDReport Verified Date/Time: 08/02/2018 14:01:29 Reading Location: [address] Reading Room URINALYSIS W/ REFLEX URINE [id number] 11:27:00 Test Item Value Reference Range Interpretation [...] 516) SOURCE(BEAKER) (test code = 2795) SCREEN, [id number] 11:15:00 Test Item Value Reference Range Interpretation Comments TEST URINE (BEAKER) (test Negative code = 583) RETICULOCYTE [id number] 04:43:00 Test Item Value Reference Range Interpretation Comments RETICULOCYTE COUNT PCT (BEAKER) (test 13.2 % 0.5-1.7 H code = 575) RAD, CHEST, 2 [id number] 03:54:00Reason for exam:->SICKLE CELL PAIN CRISISIs the [...] chest port is in place. Signed: Costa Ferriseport Verified Date/Time: 08/02/2018 03:54:52Reading Location: [address] Reading Room CBC W/PLT COUNT & [...] (BEAKER) (test code = 417) COMPREHENSIVE METABOLIC [id number] 02:42:00 Test Item Value Reference Range Interpretation [...]
[2020-09-30] MEDS ORDERED: FOLIC ACID 5 MG/ML VIAL ONE (00:04)
[2020-09-30] MEDS ORDERED: HYDROMORPHONE HCL 1 MG/ML INJ ONE ×3 (00:04→09:28)
[2020-09-30] MEDS ORDERED: PROMETHAZINE INJ 25 MG/ML AMP ONE ×2 (00:04→09:27)
[2020-09-30 00:19] LABS: Absolute Lymphocytes (CBC) 6.1 K/uL (0.7-4.9); Basophils % 1.4 % (0-1.3); Hematocrit 27.4 % (36.0-45.0); Lymphocytes % 39.6 % (15.3-44.8); MPV 8.2 fL (7.6-11.3); RBC Red Blood Cell Count 2.85 M/uL (3.86-4.86)
[2020-09-30 00:23] LABS: Protime INR 1.05
[2020-09-30 00:37] LABS: ALT/SGPT 26 U/L (12-78); AST/SGOT 18 U/L (15-37); Albumin 3.7 g/dL (3.4-5.0); Alkaline Phosphatase 81 U/L (45-117); BUN Blood Urea Nitrogen 6 mg/dL (7-18); Bicarbonate 27 mmol/L (21-32); Bilirubin Direct 0.3 mg/dL (0-0.2); Bilirubin Total 1.8 mg/dL (0.2-1.0); Glucose Level 88 mg/dL (74-106); NT PRO-BNP 20 pg/mL (<125); Potassium 3.9 mmol/L (3.5-5.1); Protein, Total 7.4 g/dL (6.4-8.2); Sodium Level 140 mmol/L (136-145); Troponin (Emerg Dept Use Only) < 0.02 ng/mL (0.0-0.045)
--- NOTE | 2020-09-30 01:56 | ER ---
Nurse's Notes [facility] Name: Gume Ortega Age: 30 yrs Sex: Female : 1990 Arrival Date: 09/29/2020 Time: 22:35 Bed 7 Private MD: Diagnosis: Sickle-cell/Hb-C disease;Sickle-cell/Hb-C disease with crisis Presentation: 09/29 22:47 Chief complaint: Patient states: I think I am having a sickle cell crisis that started iw today. Pain all over and I lost my dilaudid and I have been out for 1 week. Coronavirus screen: Client denies travel out of the [place] in the last 14 days. Ebola Screen: Patient negative for fever greater than or equal to 101.5 degrees Fahrenheit, and additional compatible Ebola Virus Disease symptoms Patient denies exposure to infectious person. Patient denies travel to an Ebola-affected area in the 21 days before illness onset. Initial Sepsis Screen: Does the patient meet any 2 criteria? No. Patient's initial sepsis screen is negative. Does the patient have a suspected source of infection? No. Patient's initial sepsis screen is negative. Risk Assessment: Do you want to hurt yourself or someone else? Patient reports no desire to harm self or others. Onset of symptoms was September 29, 2020. 22:47 Method Of Arrival: Ambulatory iw 22:47 Acuity: MARILUZ 3 iw Triage Assessment: 23:38 General: Appears in no apparent distress. Behavior is calm, cooperative. Pain: ak2 Complains of pain in generalized. 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 - Social history:: Smoking status: Patient uses street drugs, marijuana. Screenin:37 Abuse screen: Denies threats or abuse. Denies injuries from another. Nutritional ak2 screening: No deficits noted. Tuberculosis screening: No symptoms or risk factors identified. Fall Risk None identified. Vital Signs: 22:50 BP 124 / 67; Pulse 77; Resp 20; Temp 98.5; Pulse Ox 100% ; Weight 72.57 kg; Height 5 iw ft. 2 in. (157.48 cm); Pain 10/10; 09/30 02:44 BP 110 / 63; Pulse 60; Resp 16; Temp 98.7; Pulse Ox 98% on R/A; ak2 09/29 22:50 Body Mass Index 29.26 (72.57 kg, 157.48 cm) iw ED Course: 09/29 22:35 Patient arrived in ED. bp1 22:48 Triage completed. iw 22:51 Arm band placed on right wrist. iw 23:31 Nelson Duffy MD is Attending Physician. cassidy 23:32 Garcia Oakes is Primary Nurse. ak2 23:37 Patient has correct armband on for positive identification. ak2 23:37 No provider procedures requiring assistance completed. Inserted saline lock: 20 gauge ak2 in left. 09/30 00:10 XRAY Chest (1 view) In Process Unspecified. EDMS 01:54 Jas Redd is Hospitalizing Provider. cassidy 10:38 Patient admitted, IV remains in place. ld1 Administered Medications: 09/29 23:46 Drug: Phenergan (promethazine) 12.5 mg Route: IVP; Site: right antecubital; ak2 09/30 00:40 Follow up: Response: No adverse reaction rr5 09/29 23:47 Drug: foLIC Acid 1 mg Route: IVPB; Site: right antecubital; ak2 09/30 00:40 Follow up: IV Status: Completed infusion rr5 09/29 23:47 Drug: Dilaudid (HYDROmorphone) 1 mg Route: IVP; Site: right antecubital; ak2 09/30 00:40 Follow up: Response: No adverse reaction; Pain is decreased; RASS: Alert and Calm (0) rr5 02:19 Drug: Phenergan (promethazine) 12.5 mg Route: IVP; Site: left antecubital; ak2 03:20 Follow up: Response: No adverse reaction rr5 02:19 Drug: Rocephin (cefTRIAXone) 1 grams Route: IV; Rate: per protocol; Site: left ak2 antecubital; 03:00 Follow up: Response: No adverse reaction; IV Status: Completed infusion; IV Intake: 46kxac2 02:20 Drug: NS 0.9% 1000 ml Route: IV; Rate: 1 bolus; Site: left antecubital; ak2 03:20 Follow up: Response: No adverse reaction; IV Status: Completed infusion; IV Intake: rr5 1000ml 02:20 Drug: NS 0.9% 1000 ml Route: IV; Rate: 125 ml/hr; Site: left antecubital; ak2 06:25 Follow up: Response: No adverse reaction; IV Status: Infusion continued upon admission; rr5 IV Intake: 500ml 02:20 Drug: Dilaudid (HYDROmorphone) 1 mg Route: IVP; Site: left antecubital; ak2 03:20 Follow up: Response: No adverse reaction; Pain is decreased; RASS: Alert and Calm (0) rr5 03:31 CANCELLED (cancelled): Dilaudid (HYDROmorphone) 0.5 mg IVP once; RASS on ADMIN: ak2 Combtv4, Very Agttd3, Agttd2, Rstlss1, AlertClm0, Drwsy-1, Lt Sdtn-2, Mod Sdtn-3, Dp Sdtn-4, UnArsble-5 Intake: 03:00 IV: 10ml; Total: 10ml. rr5 03:20 IV: 1000ml; Total: 1010ml. rr5 06:25 IV: 500ml; Total: 1510ml. rr5 Outcome: 01:55 Decision to Hospitalize by Provider. cassidy 10:37 Admitted to Med/surg accompanied by tech, via wheelchair, room 216, on monitor, with ld1 chart, Report called to SHYAM Horner 10:37 Condition: stable 10:37 Discharge instructions given to patient, Instructed on discharge instructions, follow up and referral plans. Demonstrated understanding of instructions, follow-up care. 10:56 Patient left the ED. ld1 Signatures: Dispatcher [employer] Nelson Montiel MD MD cha Williams, Irene, RN RN iw Roque, Raymond, RN RN rr5 Kaylee Edwards Lauren, RN RN ld1 Garcia Oakes2 Corrections: (The following items were deleted from the chart) 09/29 22:50 22:47 Chief complaint: Patient states: I think I am having a sickle cell crisis that iw started today. Pain all over iw 22:50 22:47 Initial Sepsis Screen: Does the patient meet any 2 criteria? No. Patient's iw initial sepsis screen is negative. Does the patient have a suspected source of infection? No. Patient's initial sepsis screen is negative. iw
--- NOTE | 2020-09-30 01:56 | EDPHYS ---
Physician Documentation [facility] Name: Gume Ortega Age: 30 yrs Sex: Female : 1990 Arrival Date: 09/29/2020 Time: 22:35 Bed 7 Private MD: ED Physician Nelson Duffy HPI: 09/29 23:43 This 30 yrs old Black Female presents to ER via Ambulatory with complaints of Sickle cassidy Cell Crisis. 23:43 pain all over. Onset: The symptoms/episode began/occurred 2 day(s) ago. Severity of cassdiy symptoms: At their worst the symptoms were mild moderate in the emergency department the symptoms are unchanged. The patient has not experienced similar symptoms in the past. [employer]: 22:50 LMP 09/26/2020 iw Historical: - Allergies: 22:49 Zofran; iw - Home Meds: 22:49 alprazolam 1 mg Oral tab [Active]; Dilaudid 8 mg Oral tab 1 tab every 6 hours [Active]; iw Eliquis 2.5 mg Oral tab 1 tab 2 times per day [Active]; folic acid 800 mcg Oral tab 1 tab once daily [Active]; Vitamin D Oral [Active]; - PMHx: 22:49 blood clot in lung; Sickle Cell; iw - Immunization history:: Adult Immunizations up to date. - Social history:: Smoking status: Patient uses street drugs, marijuana. ROS: 23:43 Constitutional: Negative for fever, chills, and weight loss, Eyes: Negative for injury, cassidy pain, redness, and discharge, ENT: Negative for injury, pain, and discharge, Neck: Negative for injury, pain, and swelling, Cardiovascular: Negative for chest pain, palpitations, and edema, Respiratory: Negative for shortness of breath, cough, wheezing, and pleuritic chest pain, Abdomen/GI: Negative for abdominal pain, nausea, vomiting, diarrhea, and constipation, Back: Negative for injury and pain, : Negative for injury, bleeding, discharge, and swelling, MS/Extremity: Negative for injury and deformity, Skin: Negative for injury, rash, and discoloration, Neuro: Negative for headache, weakness, numbness, tingling, and seizure, Allergy/Immunology: Negative for hives, rash, and allergies, Endocrine: Negative for neck swelling, polydipsia, polyuria, polyphagia, and marked weight changes, Hematologic/Lymphatic: Negative for swollen nodes, abnormal bleeding, and unusual bruising. Exam: 23:43 Constitutional: This is a well developed, well nourished patient who is awake, alert, cassidy and in no acute distress. Head/Face: Normocephalic, atraumatic. Eyes: Pupils equal round and reactive to light, extra-ocular motions intact. Lids and lashes normal. Conjunctiva and sclera are non-icteric and not injected. Cornea within normal limits. Periorbital areas with no swelling, redness, or edema. ENT: Nares patent. No nasal discharge, no septal abnormalities noted. Tympanic membranes are normal and external auditory canals are clear. Oropharynx with no redness, swelling, or masses, exudates, or evidence of obstruction, uvula midline. Mucous membranes moist. Neck: Trachea midline, no thyromegaly or masses palpated, and no cervical lymphadenopathy. Supple, full range of motion without nuchal rigidity, or vertebral point tenderness. No Meningismus. Chest/axilla: Normal chest wall appearance and motion. Nontender with no deformity. No lesions are appreciated. Cardiovascular: Regular rate and rhythm with a normal S1 and S2. No gallops, murmurs, or rubs. Normal PMI, no JVD. No pulse deficits. Respiratory: Lungs have equal breath sounds bilaterally, clear to auscultation and percussion. No rales, rhonchi or wheezes noted. No increased work of breathing, no retractions or nasal flaring. Abdomen/GI: Soft, non-tender, with normal bowel sounds. No distension or tympany. No guarding or rebound. No evidence of tenderness throughout. Back: No spinal tenderness. No costovertebral tenderness. Full range of motion. Skin: Warm, dry with normal turgor. Normal color with no rashes, no lesions, and no evidence of cellulitis. MS/ Extremity: Pulses equal, no cyanosis. Neurovascular intact. Full, normal range of motion. Neuro: Awake and alert, GCS 15, oriented to person, place, time, and situation. Cranial nerves II-XII grossly intact. Motor strength 5/5 in all extremities. Sensory grossly intact. Cerebellar exam normal. Normal gait. Psych: Awake, alert, with orientation to person, place and time. Behavior, mood, and affect are within normal limits. Vital Signs: 22:50 BP 124 / 67; Pulse 77; Resp 20; Temp 98.5; Pulse Ox 100% ; Weight 72.57 kg; Height 5 iw ft. 2 in. (157.48 cm); Pain 10; 09/30 02:44 BP 110 / 63; Pulse 60; Resp 16; Temp 98.7; Pulse Ox 98% on R/A; ak2 09/29 22:50 Body Mass Index 29.26 (72.57 kg, 157.48 cm) iw MDM: 09/29 23:31 Patient medically screened. [facility] 23:44 Data reviewed: vital signs, nurses notes, lab test result(s), EKG, radiologic studies, cassidy plain films. Data interpreted: specialist physicians: rate is 77 beats/min, rhythm is regular. Test interpretation: by ED physician or midlevel provider: ECG, plain radiologic studies. Counseling: I had a detailed discussion with the patient and/or guardian regarding: the historical points, exam findings, and any diagnostic results supporting the discharge/admit diagnosis, lab results, radiology results. 09/29 23:42 Order name: Basic Metabolic Panel [facility] 09/29 23:42 Order name: CBC with Diff [facility] 09/29 23:42 Order name: LFT's [facility] 09/29 23:42 Order name: Magnesium [facility] 09/29 23:42 Order name: NT PRO-BNP [facility] 09/29 23:42 Order name: PT-INR [facility] 09/29 23:42 Order name: Troponin (emerg Dept Use Only); Complete Time: 01:36 [facility] 09/29 23:42 Order name: Retic Count; Complete Time: 01:36 [facility] 09/29 23:43 Order name: Basic Metabolic Panel; Complete Time: 01:36 [facility] 09/29 23:43 Order name: CBC with Automated Diff; Complete Time: 01:36 [facility] 09/29 23:43 Order name: Liver (Hepatic) Function; Complete Time: 01:36 [facility] 09/29 23:43 Order name: Magnesium; Complete Time: 01:36 [facility] 09/29 23:43 Order name: NT PRO-BNP; Complete Time: 01:36 [facility] 09/29 23:43 Order name: Protime (+INR); Complete Time: 01:36 [facility] 09/29 23:42 Order name: XRAY Chest (1 view) [facility] 09/30 01:53 Order name: Blood Culture Adult (2) [facility] 09/30 04:00 Order name: SARS-COV-2 RT PCR [facility] 09/30 06:04 Order name: Hemoglobin [facility] 09/30 06:04 Order name: Hematocrit [facility] 09/30 06:27 Order name: Comprehensive Metabolic Panel [facility] 09/29 23:42 Order name: EKG; Complete Time: 23:43 [facility] 09/29 23:42 Order name: Cardiac monitoring; Complete Time: 06:33 [facility] 09/29 23:42 Order name: EKG - Nurse/Tech; Complete Time: 06:33 [facility] 09/29 23:42 Order name: IV Saline Lock; Complete Time: 06:33 [facility] 09/29 23:42 Order name: Labs collected and sent; Complete Time: 06:33 [facility] 09/29 23:42 Order name: O2 Per Protocol; Complete Time: 06:33 [facility] 09/29 23:42 Order name: O2 Sat Monitoring; Complete Time: 06:33 [facility] 09/29 23:42 Order name: Oxygen; Complete Time: 06:32 [facility] Administered Medications: 23:46 Drug: Phenergan (promethazine) 12.5 mg Route: IVP; Site: right antecubital; mo2 09/30 00:40 Follow up: Response: No adverse reaction rr 09/29 23:47 Drug: foLIC Acid 1 mg Route: IVPB; Site: right antecubital; [facility] 09/30 00:40 Follow up: IV Status: Completed infusion rr 09/29 23:47 Drug: Dilaudid (HYDROmorphone) 1 mg Route: IVP; Site: right antecubital; mo2 09/30 00:40 Follow up: Response: No adverse reaction; Pain is decreased; RASS: Alert and Calm (0) rr5 02:19 Drug: Phenergan (promethazine) 12.5 mg Route: IVP; Site: left antecubital; mo2 03:20 Follow up: Response: No adverse reaction rr5 02:19 Drug: Rocephin (cefTRIAXone) 1 grams Route: IV; Rate: per protocol; Site: left ak2 antecubital; 03:00 Follow up: Response: No adverse reaction; IV Status: Completed infusion; IV Intake: 15mxty0 02:20 Drug: NS 0.9% 1000 ml Route: IV; Rate: 1 bolus; Site: left antecubital; ak2 03:20 Follow up: Response: No adverse reaction; IV Status: Completed infusion; IV Intake: rr5 1000ml 02:20 Drug: NS 0.9% 1000 ml Route: IV; Rate: 125 ml/hr; Site: left antecubital; ak2 06:25 Follow up: Response: No adverse reaction; IV Status: Infusion continued upon admission; rr5 IV Intake: 500ml 02:20 Drug: Dilaudid (HYDROmorphone) 1 mg Route: IVP; Site: left antecubital; ak2 03:20 Follow up: Response: No adverse reaction; Pain is decreased; RASS: Alert and Calm (0) rr5 03:31 CANCELLED (cancelled): Dilaudid (HYDROmorphone) 0.5 mg IVP once; RASS on ADMIN: ak2 Combtv4, Very Agttd3, Agttd2, Rstlss1, AlertClm0, Drwsy-1, Lt Sdtn-2, Mod Sdtn-3, Dp Sdtn-4, UnArsble-5 Disposition: 09/30/20 01:55 Hospitalization ordered by Jas Redd for Observation. Preliminary diagnosis are Sickle-cell/Hb-C disease, Sickle-cell/Hb-C disease with crisis. - Bed requested for Telemetry/MedSurg (observation). - Status is Observation. ld1 - Condition is Stable. - Problem is new. - Symptoms have improved. Signatures: Dispatcher [employer] EDIN Luz Elena Charlton RN RN dw Anderson, Corey, MD MD cha Williams, Irene RN Wendy Meyer RN RN tl1 Livia Worthy RN RN ld1 Garcia Oakes ak2 Moshe An RN rr5 Corrections: (The following items were deleted from the chart) 03:17 02:55 CORONAVIRUS+ ordered. [facility] EDMS 03:31 03:29 Dilaudid (HYDROmorphone) 0.5 mg IVP once; RASS on ADMIN: Combtv4, Very Agttd3, ak2 Agttd2, Rstlss1, AlertClm0, Drwsy-1, Lt Sdtn-2, Mod Sdtn-3, Dp Sdtn-4, UnArsble-5 ordered. ak2 04:04 01:55 Hospitalization Ordered by Jas Redd for Observation. Preliminary diagnosis tl1 is Sickle-cell/Hb-C disease; Sickle-cell/Hb-C disease with crisis. Bed requested for Telemetry/MedSurg (observation). Status is Observation. Condition is Stable. Problem is new. Symptoms have improved. cassidy 10:07 04:04 09/30/2020 01:55 Hospitalization Ordered by Jas Redd for Observation. dw Preliminary diagnosis is Sickle-cell/Hb-C disease; Sickle-cell/Hb-C disease with crisis. Bed requested for [facility] ER HOLD. Status is Observation. Condition is Stable. Problem is new. Symptoms have improved. tl1 10:56 10:07 09/30/2020 01:55 Hospitalization Ordered by Jas Redd for Observation. ld1 Preliminary diagnosis is Sickle-cell/Hb-C disease; Sickle-cell/Hb-C disease with crisis. Bed requested for Telemetry/MedSurg (observation). Status is Observation. Condition is Stable. Problem is new. Symptoms have improved. dw
--- NOTE | 2020-09-30 04:43 | P.HP ---
Certification for Inpatient Patient admitted to: Observation With expected LOS: <2 Midnights Patient will require the following post-hospital care: None Practitioner: I am a practitioner with admitting privileges, knowledge of patient current condition, hospital course, and medical plan of care. Services: Services provided to patient in accordance with Admission requirements found in Title 42 Section 412.3 of the Code of Federal Regulations Patient History Date of Service: 09/30/20 Reason for admission: sickle cell crisis History of Present Illness: Ms. Ortega is a 30 yo F with sickle cell disease here today for sickle cell pain crisis. She reports 10 full body pain and SOB. WBC 15.4. H/H 9.2/27.4. Allergies ondansetron HCl [From Zofran] Allergy (Mild, Verified 08/02/12 16:51) Nausea/Vomiting Home Medications: Folic Acid [Folic Acid*] 1 mg PO DAILY 08/01/12 Apixaban [Eliquis *] 1 tab PO BID 08/12/18 Promethazine Tab [Phenergan*] 25 mg PO Q4H PRN #30 tab 11/15/19 hydrOXYzine HCL [Atarax*] 25 mg PO Q6HP PRN 01/22/20 Venlafaxine HCl [Effexor] 25 mg PO BID 04/10/20 Hydrocodone Bit/Acetaminophen [Hydrocodon-Acetaminophn 10-325] 10 - 325 mg PO Q4H PRN 04/12/20 Hydromorphone HCl [Dilaudid] 8 mg PO TID #40 tablet 09/16/20 - Past Medical/Surgical History Diabetic: No -: sickle cell -: port-a-cath placement - Family History Mother -: Other (see notes) Notes: sickle cell trait Father -: Other (see notes) Notes: sickle cell trait - Social History Alcohol use: Yes CD- Drugs: Yes Caffeine use: Yes Place of Residence: Home Review of Systems 10-point ROS is otherwise unremarkable Respiratory: Shortness of Breath Musculoskeletal: Neck Pain, Shoulder Pain, Arm Pain, Back Pain, Hand Pain, Leg Pain, Foot Pain, As per HPI Physical Examination - Physical Exam General: Alert, Oriented x3, Cooperative HEENT: Atraumatic, Normocephalic, PERRLA, Mucous membr. moist/pink, EOMI, Sclerae nonicteric Neck: Supple, 2+ carotid pulse no bruit, JVD not distended, No Thyromegaly, No LAD Respiratory: Clear to auscultation bilaterally, Normal air movement Cardiovascular: No edema, Normal pulses, Regular rate/rhythm, Normal S1 S2, No gallops, No rubs, No murmurs Capillary refill: <2 Seconds Gastrointestinal: Normal bowel sounds, Soft and benign, Non-distended, No ascites, No tenderness, No masses, No rebound, No guarding Musculoskeletal: No clubbing, No swelling, No contractures, No erythema, No warmth, Tenderness Integumentary: No rashes, No breakdown, No significant lesion, No tenderness/swelling, No erythema, No warmth, No cyanosis Neurological: Normal speech, Normal strength at 5/5 x4 extr, Normal tone, Sensation intact, Cranial nerves 3-12 intact, Normal affect Lymphatics: No axilla or inguinal lymphadenopathy - Studies Laboratory Data (last 24 hrs) 09/29/20 23:55: PT 12.1, INR 1.05 09/29/20 23:55: WBC 15.40 H, Hgb 9.2 L, Hct 27.4 L, Plt Count 527 H 09/29/20 23:55: Sodium 140, Potassium 3.9, BUN 6 L, Creatinine 0.45 L, Glucose 88, Magnesium 2.0, Total Bilirubin 1.8 H, AST 18, ALT 26, Alkaline Phosphatase 81 Assessment and Plan - Problems (Diagnosis) (1) Anemia, sickle cell with crisis Current Visit: No Status: Acute (2) Hemolytic anemia Current Visit: No Status: Acute Qualifiers: Hemolytic anemia type: hereditary hemolytic anemia, other Qualified Code(s): D58.8 - Other specified hereditary hemolytic anemias (3) Leucocytosis Current Visit: No Status: Acute Qualifiers: Leukocytosis type: unspecified Qualified Code(s): D72.829 - Elevated white blood cell count, unspecified - Plan 1.5 dilaudid IV q4hr phenergan PRN for nausea trend H/H O2 as needed gentle IVF hydration urinalysis pending continue eliquis 2.5 BID, alprazolam 1mg daily pRN Discharge Plan: Home Plan to discharge in: 24 Hours - Advance Directives Does patient have a Living Will: No Does patient have a Durable POA for Healthcare: No - Code Status/Comfort Care Code Status Assessed: Yes (full code) Critical Care: No Time Spent Managing Pts Care (In Minutes): 70
[2020-09-30] MEDS ORDERED: ALPRAZOLAM 1 MG TABLET PO PRN (05:02)
[2020-09-30] MEDS: NA CHLORIDE 0.9% 1,000 ML IV SCH ×3 (05:02→20:51)
[2020-09-30 05:20] VITALS: BMI 29.2
[2020-09-30] MEDS: HYDROMORPHONE HCL 1 MG/ML INJ IV PRN ×5 (05:36→22:29)
[2020-09-30 05:58] LABS: Hematocrit 26.1 % (36.0-45.0)
[2020-09-30] MEDS ORDERED: HYDROMORPHONE HCL 0.5 MG/0.5 ML INJ ONE (05:58)
[2020-09-30 06:27] LABS: ALT/SGPT 25 U/L (12-78); AST/SGOT 21 U/L (15-37); Albumin 3.4 g/dL (3.4-5.0); Alkaline Phosphatase 80 U/L (45-117); BUN Blood Urea Nitrogen 6 mg/dL (7-18); Bicarbonate 26 mmol/L (21-32); Bilirubin Total 1.5 mg/dL (0.2-1.0); Glucose Level 95 mg/dL (74-106); Potassium 4.1 mmol/L (3.5-5.1); Protein, Total 6.8 g/dL (6.4-8.2); Sodium Level 141 mmol/L (136-145)
--- NOTE | 2020-09-30 08:40 | RAD REPORT ---
EXAM DESCRIPTION: RAD - Chest Single View - 09/30/2020 12:09 am CLINICAL HISTORY: COUGH Chest pain. COMPARISON: Chest Single View dated 07/14/2020; Chest Single View dated 04/10/2020; Chest Single View dated 01/22/2020; Chest Single View dated 08/12/2018 FINDINGS: Portable technique limits examination quality. The lungs are grossly clear. The heart is normal in size. Left-sided port catheter has tip in the rig ht atrium. IMPRESSION: No acute intrathoracic process suspected.
[2020-09-30] MEDS: APIXABAN 2.5 MG TABLET PO SCH ×2 (09:00→20:50)
[2020-09-30] MEDS: PROMETHAZINE INJ 25 MG/ML AMP IV PRN ×4 (09:17→22:30)
[2020-09-30] MEDS ORDERED: APIXABAN 5 MG TABLET ONE (09:28)
[2020-09-30 18:33] LABS: Urine Appearance CLEAR (Clear); Urine Bilirubin NEGATIVE (Negataive); Urine Blood 2+ (Negative); Urine Color YELLOW (Yellow); Urine Glucose NEGATIVE (Negative); Urine Protein NEGATIVE (Negative); Urine Urobilinogen 0.2 mg/dL (0.2-1.0); Urine pH 5.5 (5.0-7.0)
[2020-09-30 18:42] LABS: Urine Microscopic Reflex ORDER UMIC
[2020-09-30 18:54] LABS: Urine Bacteria <20 /HPF (<20)
[2020-09-30 18:55] LABS: Urine Amorphous Sediment TRACE /HPF (NONE SEEN)
--- NOTE | 2020-09-30 18:56 | P.PN ---
Date of Service: 09/30/20 Patient seen and examined. She is complaining of itching. No complain of pain to me. Sclerae not icteric. UA no bilirubin and urobilinogen. Reticulocyte count elevated. Nucleated RBC likely contributing to Leukocytosis. Continue supportive measures. IV hydrate Pain management as needed. Patient requesting for Benadryl for pruritus. Ordered oral Benadryl. Monitor for 1 more day. Possible discharge in am.
[2020-09-30] MEDS: DIPHENHYDRAMINE 25 MG TAB/CAP PO PRN (20:50)
[2020-10-01] MEDS: PROMETHAZINE INJ 25 MG/ML AMP IV PRN ×6 (02:38→22:58)
[2020-10-01] MEDS: HYDROMORPHONE HCL 1 MG/ML INJ IV PRN ×6 (02:40→22:57)
[2020-10-01] MEDS: NA CHLORIDE 0.9% 1,000 ML IV SCH ×3 (06:37→21:02)
[2020-10-01 07:46] LABS: Hematocrit 23.9 % (36.0-45.0)
[2020-10-01 07:48] LABS: ALT/SGPT 22 U/L (12-78); AST/SGOT 24 U/L (15-37); Albumin 3.1 g/dL (3.4-5.0); Alkaline Phosphatase 75 U/L (45-117); BUN Blood Urea Nitrogen 8 mg/dL (7-18); Bicarbonate 26 mmol/L (21-32); Bilirubin Total 1.5 mg/dL (0.2-1.0); Glucose Level 85 mg/dL (74-106); Phosphorus 4.1 mg/dL (2.5-4.9); Potassium 4.3 mmol/L (3.5-5.1); Protein, Total 6.2 g/dL (6.4-8.2); Sodium Level 144 mmol/L (136-145)
[2020-10-01] MEDS: APIXABAN 2.5 MG TABLET PO SCH ×2 (10:00→20:11)
--- NOTE | 2020-10-01 16:36 | P.PN ---
Subjective Date of Service: 10/01/20 Chief Complaint: sickle cell crisis Patient still complaining of generalized body pains. Hemoglobin dropped from 9 to 8. Blood pressure is on the low side. Intermittently hypotensive. Physical Examination - Vital Signs Temperature: 98.3 F Blood Pressure: 84/47 Pulse: 63 Respirations: 16 Pulse Ox (%): 96 - Physical Exam General: Alert, In no apparent distress Neck: JVD not distended Respiratory: Other (Nonlabored breathing.) Cardiovascular: No edema, Regular rate/rhythm, Normal S1 S2 Gastrointestinal: Soft and benign, Non-distended Musculoskeletal: No swelling Integumentary: No rashes Assessment And Plan - Current Problems (Diagnosis) (1) Chronic anemia Current Visit: Yes Status: Acute (2) Sickle cell crisis Onset Date: 09/17/16 Current Visit: No Status: Acute (3) Leucocytosis Current Visit: No Status: Acute Qualifiers: Leukocytosis type: unspecified Qualified Code(s): D72.829 - Elevated white blood cell count, unspecified - Plan No significant evidence of hemolysis. Continue supportive measures for sickle cell painful crisis. Continue IV hydration. IV opiates p.r.n. for pain. Antipruritics as needed. Monitor CBC daily. Transfuse p.r.n. for hemoglobin less than 7. Check BMP in a.m.
[2020-10-01] MEDS: DIPHENHYDRAMINE 25 MG TAB/CAP PO PRN (20:11)
[2020-10-02] MEDS: NA CHLORIDE 0.9% 1,000 ML IV SCH ×2 (00:58→09:45)
[2020-10-02] MEDS: PROMETHAZINE INJ 25 MG/ML AMP IV PRN ×4 (03:14→14:45)
[2020-10-02] MEDS: HYDROMORPHONE HCL 1 MG/ML INJ IV PRN ×4 (03:15→14:45)
[2020-10-02] MEDS: APIXABAN 2.5 MG TABLET PO SCH (08:49)
[2020-10-02 10:43] VITALS: O2SAT 94
--- NOTE | 2020-10-02 15:35 | P.DS ---
Admission Date: 09/30/20 Discharge Date: 10/02/20 Disposition: ROUTINE DISCHARGE Discharge Condition: FAIR Reason for Admission: sickle cell crisis - Problems (1) Chronic anemia Current Visit: Yes Status: Acute (2) Sickle cell crisis Onset Date: 09/17/16 Current Visit: No Status: Acute (3) Leucocytosis Current Visit: No Status: Acute Qualifiers: Leukocytosis type: unspecified Qualified Code(s): D72.829 - Elevated white blood cell count, unspecified Brief History of Present Illness: 30-year-old woman with a history of sickle cell disease presented to the emergency department with a complaint of stiffness and pain crisis. Patient reported 10/10 whole-body pain and shortness of breath. WBC count was 15.4. Chest x-ray shows no acute infiltrate. Patient hospitalized for further management. Hospital Course: Patient admitted to the medical floor and treated with supportive measures including IV hydration, IV hydromorphone p.r.n. for pain. Patient clinically improved with treatment. Vital stable, hemoglobin stable. UA and blood chemistry did not suggest hemolysis. Patient deemed stable for discharge. Vital Signs/Physical Exam: Temp Pulse Resp BP Pulse Ox 98.6 F 75 18 101/45 L 95 10/02/20 12:00 10/02/20 12:00 10/02/20 14:45 10/02/20 12:00 10/02/20 14:45 General: Alert, In no apparent distress, Oriented x3 HEENT: Mucous membr. moist/pink Neck: JVD not distended Respiratory: Clear to auscultation bilaterally, Normal air movement Cardiovascular: No edema, Regular rate/rhythm, Normal S1 S2 Gastrointestinal: Normal bowel sounds, Soft and benign, Non-distended, No tenderness Musculoskeletal: No swelling Integumentary: No rashes, No erythema Neurological: Normal strength at 5/5 x4 extr, Cranial nerves 3-12 intact Laboratory Data at Discharge: WBC 15.40 K/uL (4.3-10.9) H 09/29/20 23:55 Hgb 8.0 g/dL (12.0-15.0) L 10/01/20 06:40 Hct 23.9 % (36.0-45.0) L 10/01/20 06:40 Plt Count 527 K/uL (152-406) H 09/29/20 23:55 PT 12.1 SECONDS (9.5-12.5) 09/29/20 23:55 INR 1.05 09/29/20 23:55 Sodium 144 mmol/L (136-145) 10/01/20 06:40 Potassium 4.3 mmol/L (3.5-5.1) 10/01/20 06:40 BUN 8 mg/dL (7-18) 10/01/20 06:40 Creatinine 0.43 mg/dL (0.55-1.3) L 10/01/20 06:40 Glucose 85 mg/dL (74-106) 10/01/20 06:40 Phosphorus 4.1 mg/dL (2.5-4.9) 10/01/20 06:40 Magnesium 2.0 mg/dL (1.8-2.4) 10/01/20 06:40 Total Bilirubin 1.5 mg/dL (0.2-1.0) H 10/01/20 06:40 AST 24 U/L (15-37) 10/01/20 06:40 ALT 22 U/L (12-78) 10/01/20 06:40 Alkaline Phosphatase 75 U/L (45-117) 10/01/20 06:40 Home Medications: Folic Acid [Folic Acid*] 1 mg PO DAILY 08/01/12 Apixaban [Eliquis *] 1 tab PO BID 08/12/18 Promethazine Tab [Phenergan*] 25 mg PO Q4H PRN #30 tab 11/15/19 Hydromorphone HCl [Dilaudid] 8 mg PO TID #40 tablet 09/16/20 ALPRAZolam [Xanax*] 1 mg PO BIDP PRN 09/30/20 Cholecalciferol (Vitamin D3) [Vitamin D 1000 Iu Tab*] 1,000 unit PO EVERY 7TH DAY 09/30/20 Diet: Regular Activity: Ad gina Followup: Neil Benitez MD [Primary Care Provider] - 1 Week Time spent managing pt's care (in minutes): 28
[2020-10-02] MEDS ORDERED: HEPARIN SOD 100 UNIT/ML FLUSH IV PRN (16:37)
[2020-10-02] MEDS ORDERED: HEPARIN 500 UNIT/5 ML SYR IV ONE (17:06)
[2020-10-02 18:48] VITALS: BP 114/56; TEMP 98.9
== END 2020-10-02 16:53 | disposition home or self-care (01) | DRG 812 ==
LOC: ER 22:32 → ERHOLD 09-30 03:46 → 2ND 09-30 10:24
PROVIDERS: ADMIT Internal Medicine; ATTEND Internal Medicine
DX: D57.00 Hb-SS disease with crisis, unspecified (principal); D72.829 Elevated white blood cell count, unspecified; Z88.8 Allergy status to other drugs, medicaments and biological substances; Z79.01 Long term (current) use of anticoagulants; Z79.899 Other long term (current) drug therapy; Z20.822 Contact with and (suspected) exposure to COVID-19
CPT/HCPCS: 36415; 71045; 80048; 80053; 80076; 81003; 81015; 83735; 83880; 84100; 84484; 85014; 85018; 85025; 85044; 85610; 87040; 93005; 94760; 99285; J1170; J1642; J2550; J7030; U0003

== ENCOUNTER 2020-10-12 07:01 | Emergency (ER) | payer OTHER ==
--- OUTSIDE RECORDS SUMMARY | 2020-10-12 07:05 | XMS REPORT | Continuity of Care Document ---
:1990 Author Organization [facility] t Address [address] [place] [place] [address] Support Name Relationship Address Phone DENI Unavailable [id number] [facility] [phone] [address] [facility] [place] [address] DENI Unavailable [address] [facility] [phone] [address] [facility] [place] [address] JORDAN Unavailable [phone] [facility] [phone] [place] [address] JORDAN Unavailable [id number] [facility] [phone] [place] [address] CLINTON DELEON MD E Admitting Provider [address] [facility] [address] [place] [address] JESSICA SIDDIQUI Primary Care Physician [address] [facility] [address] [phone] [place] [address] VIJAYA MULLEN MD A Emergency Provider [address] [facility] [place] [address] NAIMA MULLEN Attending Provider [address] [place] [address] JORDAN Next of Kin N Y [address] [place] [address] IZZY MULLEN, E Emergency Provider [address] [facility] [address] [place] [address] PHYSICIAN Primary Care Physician Unavailable Unavailab chrissy GRISSOM MD, MD Emergency Provider [address] [phone] [place] [address] OTHER, NAME IN NOTES Primary Care Physician Unavailable Sylvie caity SHIN MD, MD Emergency Provider [address] [facility] [phone] [place] [address] ISABELLA MULLEN MD MORE Admitting Provider [address] [place] [address] FRANCIS Primary Care Physician [address] [facility] [place] [address] MD AMRITA A Emergency Provider [facility] [phone] [place] [address] [address] [place] [address] Care Team Providers Name Role Phone Shaikh PAZ, Tasha Primary Care Physician ERIBERTO WOODRUFF Attending Clinician Unavailable Antonia CARTER Admitting Clinician Unavailable Payers Payer Name Policy Type Policy Effective Date Expiration Date Sour ce Number MEDICAID - [id number] 2015 [facility] MEDICAID MGD 00:00:00 - Medical [facility]EMCD [facility] Center STAR AHALsncha88803/2015-PresentMedic aid Contracted Problems Condition Condition Condition Status Onset Resolution Last Treating Co mments Source Name Details Category Date Date Treatment Clinician Date Leukocytos Leukocytos Disease Active [facility] Pneumonia Pneumonia Disease [facility] 00 [place] 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[facility] - anemia anemia 00:00: Medical 00 [place] 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[facility] cell [...] SV [facility] 3[facility] [place] 00:00: d 00 [facility] TEGEDERM DA Active IN [facility] DRESSING 8-23 [place] 00:00: d 00 Medical [place] Family History Family Member Diagnosis Comments Start Date Stop Date Source Natural sister Unremarkable [facility] Natural brother Unremarkable [facility] Natural father Seizures [facility] Natural father Sickle cell trait [facility] Natural mother Sickle cell trait [facility] Social History Social Habit Start Date Stop Date Quantity Comments Source Sex Assigned At [facility] St Ariana ashford [facility] Tobacco use and 2018-08-02 2018-08-02 Never used [facility] Ariana dejon - exposure 00:00:00 00:00:00 [facility] Alcohol intake 2018-08-02 2018-08-02 Current JUDITH Nieves es - 00:00:00 00:00:00 non-drinker of Medical Ce nter alcohol (finding) Smoking Status Start Date Stop Date Source Never smoker [facility] dejon [facility] Medications Ordered Filled Start Stop [...] St 50,000 unit 2-25 le} capsule by [facility] - capsule 00:00: mouth once [...] Time Performed Performing Clinician Sour e SARS-COV2/RT-PCR ([facility] 2019-11-13 05:40:00 [facility] [...] Medica l Center cervix (procedure) [code = 320138781] Future Scheduled [address] [facility] - Test 00:00:00 (procedure) [code = Medical Center 59413358] Future Scheduled 1997-09-[address] [...] Test Comments Results Result Comments Source SARS-CoV2/RT-PCR ([facility] & Ref Labs) 2019-11-14 17:47:00 Test Item Value Reference Range Interpretation Comme nts SARS-COV2/RT-PCR (test code = Negative Not Detected, Negative 10326-0) SARS-COV-2 [facility] (test code = 88309-5) RUSLAN (test code = RUSLAN) Negative results [...] of the Act. Fact Sheet for Healthcare Providers:https://www.[employer] .Rent Here/Documents/Xpert%20Xpress %20SARS%20CoV-2/Fact%20Sheets /302-3802%46VYHQ-GLF-9%20HEAL THCARE%20PROVIDERS%20FACT%20S HEET.pdf Fact Sheet for Healthcare Patients:https://www.Shopperception/Documents/Xpert%20Xpress% 20SARS%20CoV-2/Fact%20Sheets/ 3023801%00HGZB-QNN-4%20PATIE NT%20FACT%20SHEET.pdf Performing Laboratory:[facility], [place] [address] [place], [place] [address]ARS-COV2/RT-PCR ([facility])2019-11-14 17:47:00 Test Item Value Reference Range Interpretation Comments SARS-COV2/RT-PCR (test code = Negative Not Detected, Negative 5389542) SARS-COV-2 PERFORMING LAB [facility] (test code = 5327380) Negative results do not preclude SARS-CoV-2 infection [...] of the Act.Fact Sheet for Healthcare Pro viders:https://www.Yeexoo/Documents/Xpert%20Xpress%20SARS%20CoV-2/Fact%20Sh eets/3023802%06HBTQ-CWJ-5%20HEALTHCARE%20PROVIDERS%20FACT%20SHEET.pdfFact Sheet for Healthcare Patients:https://www.Big Stage/Documents/Xpert%20Xpress%20SARS%20CoV-2/Fact%20Sheets/302-3801%20SARS-COV -2%20PATIENT%20FACT%20SHEET.pdfPerforming Laboratory:[facility], [place] [address]YWS W/PLT COUNT & AUTO DIFFERENTIAL 2018-08-10 08:25:00 [...] 3438) Received comment: User comments: Slide comments:RETICULOCYTE [id number] 08:06:00 Test Item Value Reference Range Interpretation Comments RETICULOCYTE COUNT PCT (BEAKER) (test 25.0 % 0.5-1.7 H code = 575) CBC W/PLT COUNT & AUTO [id number] 09:27:00 Test Item Value Reference Range Interpretation [...] 3438) Received comment: User comments: Slide comments:RETICULOCYTE [id number] 05:01:00 Test Item Value Reference Range Interpretation Comments RETICULOCYTE COUNT PCT (BEAKER) (test 21.6 % 0.5-1.7 H code = 575) CBC W/PLT COUNT & AUTO [id number] 15:17:00 Test Item Value Reference Range Interpretation [...] H (BEAKER) (test code = 413) RETICULOCYTE [id number] 08:44:00 Test Item Value Reference Range Interpretation Comments RETICULOCYTE COUNT PCT (BEAKER) (test 23.8 % 0.5-1.7 H code = 575) BLOOD [id number] 14:01:00 Test Item Value Reference Range Interpretation Comments CULTURE (BEAKER) (test No growth in 5 days code = 1095) BLOOD [id number] 12:01:00 Test Item Value Reference Range Interpretation Comments CULTURE (BEAKER) (test No growth in 5 days code = 1095) CBC W/PLT COUNT & AUTO [id number] 11:38:00 Test Item Value Reference Range Interpretation [...] 3438) Received comment: User comments: Slide comments:RETICULOCYTE [id number] 07:44:00 Test Item Value Reference Range Interpretation Comments RETICULOCYTE COUNT PCT (BEAKER) (test 27.0 % 0.5-1.7 H code = 575) RETICULOCYTE [id number] 07:19:00 Test Item Value Reference Range Interpretation Comments RETICULOCYTE COUNT PCT (BEAKER) (test 22.7 % 0.5-1.7 H code = 575) CBC W/PLT COUNT & AUTO [id number] 12:07:00 Test Item Value Reference Range Interpretation [...] 3438) Received comment: User comments: Slide comments:RETICULOCYTE [id number] 06:14:00 Test Item Value Reference Range Interpretation Comments RETICULOCYTE COUNT PCT (BEAKER) (test 21.9 % 0.5-1.7 H code = 575) [id number] 06:02:00 Test Item Value Reference Range Interpretation Comments PHOSPHORUS (BEAKER) (test code = 3.8 mg/dL 2.3-4.7 604) [id number] 06:02:00 Test Item Value Reference Range Interpretation Comments MAGNESIUM (BEAKER) (test code = 1.8 mg/dL 1.6-2.6 627) BASIC METABOLIC [id number] 06:02:00 Test Item Value Reference Range Interpretation [...] Specimen moderately ictericCBC W/PLT COUNT & AUTO [id number] 09:09:00 Test Item Value Reference Range Interpretation [...] = 3438) Received comment: User comments: Slide comments:[id number] 04:11:00 Test Item Value Reference Range Interpretation Comments PHOSPHORUS (BEAKER) (test code = 3.3 mg/dL 2.3-4.7 604) [id number] 04:11:00 Test Item Value Reference Range Interpretation Comments MAGNESIUM (BEAKER) (test code = 1.6 mg/dL 1.6-2.6 627) BASIC METABOLIC [id number] 04:11:00 Test Item Value Reference Range Interpretation [...] FOR DIALYSIS PATIEN TS. Specimen slightly ictericRETICULOCYTE [id number] 03:54:00 Test Item Value Reference Range Interpretation Comments RETICULOCYTE COUNT PCT (BEAKER) (test 20.4 % 0.5-1.7 H code = 575) CBC W/PLT COUNT & AUTO [id number] 18:30:00 Test Item Value Reference Range Interpretation [...] = 413) CBC W/PLT COUNT & AUTO [id number] 10:51:00 Test Item Value Reference Range Interpretation [...] 3438) Received comment: User comments: Slide comments:RETICULOCYTE [id number] 10:08:00 Test Item Value Reference Range Interpretation Comments RETICULOCYTE COUNT PCT (BEAKER) (test 14.4 % 0.5-1.7 H code = 575) CBC W/PLT COUNT & AUTO [id number] 09:30:00 Test Item Value Reference Range Interpretation [...] = 3438) Received comment: User comments: Slide comments:[id number] 03:32:00 Test Item Value Reference Range Interpretation Comments PHOSPHORUS (BEAKER) (test code = 3.5 mg/dL 2.3-4.7 604) [id number] 03:32:00 Test Item Value Reference Range Interpretation Comments MAGNESIUM (BEAKER) (test code = 1.8 mg/dL 1.6-2.6 627) BASIC METABOLIC [id number] 03:32:00 Test Item Value Reference Range Interpretation [...] ictericCT, CHEST WITH IV CONTRAST- PE TEST [id number] 14:01:00FINAL REPORT CT scan of the chest. [...] MDReport Verified Date/Time: 08/02/2018 14:01:29 Reading Location: [place] [address] [facility] Reading Room URINALYSIS W/ REFLEX URINE [id number] 11:27:00 Test Item Value Reference Range Interpretation [...] 516) SOURCE(BEAKER) (test code = 2795) SCREEN, [id number] 11:15:00 Test Item Value Reference Range Interpretation Comments TEST URINE (BEAKER) (test Negative code = 583) RETICULOCYTE [id number] 04:43:00 Test Item Value Reference Range Interpretation Comments RETICULOCYTE COUNT PCT (BEAKER) (test 13.2 % 0.5-1.7 H code = 575) RAD, CHEST, 2 [id number] 03:54:00Reason for exam:->SICKLE CELL PAIN CRISISIs the [...] [place]is MDReport Verified Date/Time: 08/02/2018 03:54:52Reading Location: [address] Reading Room CBC W/PLT COUNT & [...] (BEAKER) (test code = 417) COMPREHENSIVE METABOLIC [id number] 02:42:00 Test Item Value Reference Range Interpretation [...]
[2020-10-12] MEDS ORDERED: MORPHINE 4 MG/ML SYR ONE (08:23)
[2020-10-12] MEDS ORDERED: NA CHLORIDE 0.9% 1,000 ML ONE ×2 (08:24→09:48)
[2020-10-12 08:43] LABS: Absolute Lymphocytes (CBC) 3.7 K/uL (0.7-4.9); Basophils % 1.2 % (0-1.3); Hematocrit 25.5 % (36.0-45.0); Lymphocytes % 18.2 % (15.3-44.8); MPV 8.5 fL (7.6-11.3); RBC Red Blood Cell Count 2.67 M/uL (3.86-4.86)
[2020-10-12] MEDS ORDERED: HYDROMORPHONE HCL 1 MG/ML INJ ONE ×2 (08:50→09:48)
[2020-10-12 08:54] LABS: ALT/SGPT 24 U/L (12-78); AST/SGOT 23 U/L (15-37); Albumin 3.9 g/dL (3.4-5.0); Alkaline Phosphatase 90 U/L (45-117); BUN Blood Urea Nitrogen 13 mg/dL (7-18); Bicarbonate 27 mmol/L (21-32); Bilirubin Total 2.9 mg/dL (0.2-1.0); Glucose Level 95 mg/dL (74-106); Potassium 4.1 mmol/L (3.5-5.1); Protein, Total 7.3 g/dL (6.4-8.2); Sodium Level 139 mmol/L (136-145)
--- NOTE | 2020-10-12 09:10 | RAD REPORT ---
EXAM DESCRIPTION: RAD - Chest Single View - 10/12/2020 9:02 am CLINICAL HISTORY: CHEST PAIN Chest pain. COMPARISON: Chest Single View dated 09/29/2020; Chest Single View dated 07/14/2020; Chest Single View d ated 04/10/2020; Chest Single View dated 01/22/2020 FINDINGS: Portable technique limits examination quality. The lungs are grossly clear. The heart is normal in size. No displaced fractures.Left-sided port cath eter its tip at the junction of the SVC and right atrium. IMPRESSION: No acute intrathoracic process suspected.
[2020-10-12] MEDS ORDERED: PROMETHAZINE INJ 25 MG/ML AMP ONE (09:15)
[2020-10-12 09:16] LABS: Blood Morphology Comment NOTED (NOT SEEN); Platelet Estimate ADEQ
[2020-10-12 09:17] LABS: Anisocytosis SLIGHT; Basophilic Stippling 1+; Howell-Jolly Bodies NOTED; Polychromasia SLIGHT
--- NOTE | 2020-10-12 11:29 | EDPHYS ---
Physician Documentation [facility] Name: Gume Ortega Age: 30 yrs Sex: Female : 1990 Arrival Date: 10/12/2020 Time: 07:04 Bed 8 Private MD: ED Physician Gilbert Hassan HPI: 10/12 18:26 This 30 yrs old Black Female presents to ER via Ambulatory with complaints of Sickle tw4 Cell Crisis. 18:26 "pain all over". Onset: The symptoms/episode began/occurred just prior to arrival, tw4 today. Severity of symptoms: At their worst the symptoms were moderate in the emergency department the symptoms are unchanged. The patient has not experienced similar symptoms in the past. 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 - Social history:: Smoking status: unknown. ROS: 18:26 Constitutional: Negative for fever, chills, and weight loss, Eyes: Negative for injury, tw4 pain, redness, and discharge, Cardiovascular: Negative for chest pain, palpitations, and edema, Respiratory: Negative for shortness of breath, cough, wheezing, and pleuritic chest pain, Abdomen/GI: Negative for abdominal pain, nausea, vomiting, diarrhea, and constipation, Back: Negative for injury and pain. 18:26 Skin: Negative for injury, rash, and discoloration, Neuro: Negative for headache, weakness, numbness, tingling, and seizure. 18:26 MS/extremity: Positive for pain, of the right arm, left arm, right leg and left leg, Negative for injury or acute deformity, abrasion, bite, contusion, decreased range of motion. Exam: 18:26 Constitutional: This is a well developed, well nourished patient who is awake, alert, tw4 and in no acute distress. Head/Face: Normocephalic, atraumatic. Neck: Trachea midline, no thyromegaly or masses palpated, and no cervical lymphadenopathy. Supple, full range of motion without nuchal rigidity, or vertebral point tenderness. No Meningismus. Chest/axilla: Normal chest wall appearance and motion. Nontender with no deformity. No lesions are appreciated. Cardiovascular: Regular rate and rhythm with a normal S1 and S2. No gallops, murmurs, or rubs. Normal PMI, no JVD. No pulse deficits. Respiratory: Lungs have equal breath sounds bilaterally, clear to auscultation and percussion. No rales, rhonchi or wheezes noted. No increased work of breathing, no retractions or nasal flaring. Abdomen/GI: Soft, non-tender, with normal bowel sounds. No distension or tympany. No guarding or rebound. No evidence of tenderness throughout. Skin: Warm, dry with normal turgor. Normal color with no rashes, no lesions, and no evidence of cellulitis. MS/ Extremity: Pulses equal, no cyanosis. Neurovascular intact. Full, normal range of motion. Neuro: Awake and alert, GCS 15, oriented to person, place, time, and situation. Cranial nerves II-XII grossly intact. Motor strength 5/5 in all extremities. Sensory grossly intact. Cerebellar exam normal. Normal gait. Vital Signs: 07:14 BP 115 / 74; Pulse 78; Resp 18; Temp 98.4; Pulse Ox 98% on R/A; Weight 72.57 kg; Height ph 5 ft. 2 in. (157.48 cm); Pain 10/10; 08:30 BP 110 / 79; Pulse 61; Resp 21; Pulse Ox 99% ; Pain 10/10; jl7 09:00 BP 114 / 69; Pulse 61; Resp 15; Pulse Ox 59% ; Pain 8/10; jl7 10:13 BP 113 / 62; Pulse 56; Resp 16 S; Pulse Ox 97% on R/A; ca1 11:06 BP 95 / 58; Pulse 63; Resp 18 S; Pulse Ox 98% on R/A; ca1 11:19 BP 105 / 60; Pulse 55; Resp 18 S; Pulse Ox 98% on R/A; ca1 12:09 BP 94 / 56; Pulse 62; Resp 16 S; Weight 44.45 kg (M); ca1 12:09 Body Mass Index 17.92 (44.45 kg, 157.48 cm) ca1 MDM: 07:28 Patient medically screened. tw4 18:27 Differential Diagnosis altered mental status. Data reviewed: vital signs, nurses notes. tw Data interpreted: Pulse oximetry: Interpretation: normal. Counseling: I had a detailed discussion with the patient and/or guardian regarding: the historical points, exam findings, and any diagnostic results supporting the discharge/admit diagnosis. Medication response: diluadid. Response to treatment: the patient's symptoms have markedly improved after treatment, and as a result, I will discharge patient, administer pain medication. Special discussion: I discussed with the patient/guardian in detail that at this point there is no indication for admission to the hospital. It is understood, however, that if the symptoms persist or worsen the patient needs to return immediately for re-evaluation. 10/12 07:37 Order name: CBC with Diff; Complete Time: 09:26 10/12 07:37 Order name: CMP; Complete Time: 09:10/12 07:37 Order name: Retic Count; Complete Time: 09:26 10/12 08:52 Order name: CXR XRAY; Complete Time: 09:10/12 09:17 Order name: Manual Differential; Complete Time: 09: EDMS Administered Medications: 08:10 Drug: NS 0.9% 1000 ml Route: IV; Rate: 1 bolus; Site: Port-a-cath; 08:30 Drug: Dilaudid (HYDROmorphone) 1 mg Route: IVP; Site: Port-a-cath; 09:00 Follow up: Response: No adverse reaction; Pain is decreased jl 08:36 Not Given (pt reports allergy to med): morphine 4 mg IVP once; RASS on ADMIN: Combtv4, jl7 Very Agttd3, Agttd2, Rstlss1, AlertClm0, Drwsy-1, Lt Sdtn-2, Mod Sdtn-3, Dp Sdtn-4, UnArsble-5 08:50 Drug: Phenergan (promethazine) 25 mg Route: IVP; Site: Port-a-cath; 09:00 Follow up: Response: No adverse reaction; Nausea is decreased jl7 09:30 Drug: Dilaudid (HYDROmorphone) 1 mg Route: IVP; Site: Port-a-cath; [facility] 11:06 Follow up: Response: No adverse reaction; Pain is unchanged, physician notified; RASS: ca1 Restless (+1) 09:30 Drug: NS 0.9% 1000 ml Route: IV; Rate: 1 bolus; Site: Port-a-cath; [facility] 11:30 Follow up: Response: No adverse reaction; IV Status: Completed infusion; IV Intake: ca1 2000ml 11:20 Drug: fentaNYL (PF) 50 mcg {Note: rass 0.} Route: IVP; Site: Port-a-cath; [facility] 12:07 Follow up: Response: No adverse reaction; Pain is decreased; RASS: Alert and Calm (0) ca1 12:07 Drug: HEParin Flush (100 units/mL) 500 units Route: IVP; Site: Port-a-cath; [facility] 12:07 Follow up: Response: Medication administered at discharge. ca1 Disposition: 10/12/20 11:28 Discharged to Home. Impression: Sickle-cell/Hb-C disease with crisis. - Condition is Stable. - Discharge Instructions: Sickle Cell Anemia, Adult. - Prescriptions for Tylenol- Codeine #3 300-30 mg Oral Tablet - take 2 tablets by ORAL route every 4-6 hours As needed; 10 tablet. Ibuprofen 800 mg Oral Tablet - take 1 tablet by ORAL route every 12 hours As needed take with food; 20 tablet. - Medication Reconciliation Form, Thank You Letter, Antibiotic Education, Prescription Opioid Use form. - Follow up: Private Physician; When: Upon discharge from the Emergency Department; Reason: Recheck today's complaints, Continuance of care, Re-evaluation by your physician. - Problem is an ongoing problem. - Symptoms have improved. Signatures: Dispatcher [employer] Lexis Blair RN RN aMteusz Butler RN RN jl7 Gilbert Hassan MD MD tw4 Carolina Cerda RN RN ca1 Corrections: (The following items were deleted from the chart) 12:13 11:28 10/12/2020 11:28 Discharged to Home. Impression: Sickle-cell/Hb-C disease with ca1 crisis. Condition is Stable. Forms are Medication Reconciliation Form, Thank You Letter, Antibiotic Education, Prescription Opioid Use. Follow up: Private Physician; When: Upon discharge from the Emergency Department; Reason: Recheck today's complaints, Continuance of care, Re-evaluation by your physician. Problem is an ongoing problem. Symptoms have improved. tw4
--- NOTE | 2020-10-12 11:29 | ER ---
Nurse's Notes [facility] Name: Gume Ortega Age: 30 yrs Sex: Female : 1990 Arrival Date: 10/12/2020 Time: 07:04 Bed 8 Private MD: Diagnosis: Sickle-cell/Hb-C disease with crisis Presentation: 10/12 07:14 Chief complaint: Patient states: Pain all over that started a few hours ago, hx of ph sickle cell, also reports N/V, denies fever. Coronavirus screen: Client denies travel out of the [place] in the last 14 days. Ebola Screen: No symptoms or risks identified at this time. Initial Sepsis Screen: Does the patient meet any 2 criteria? No. Patient's initial sepsis screen is negative. Does the patient have a suspected source of infection? No. Patient's initial sepsis screen is negative. Risk Assessment: Do you want to hurt yourself or someone else? Patient reports no desire to harm self or others. Onset of symptoms was October 12, 2020. 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 - Social history:: Smoking status: unknown. Screenin:10 Abuse screen: Denies threats or abuse. Denies injuries from another. Nutritional jl7 screening: No deficits noted. Tuberculosis screening: No symptoms or risk factors identified. Fall Risk IV access (20 points). Total Jaime Fall Scale indicates No Risk (0-24 pts). Assessment: 07:45 General: Appears in no apparent distress. uncomfortable, Behavior is calm, cooperative, jl7 appropriate for age. Pain: Complains of pain in all over Pain currently is 10 out of 10 on a pain scale. Neuro: Level of Consciousness is awake, alert, obeys commands, Oriented to person, place, time, situation. Cardiovascular: Denies chest pain, Patient's skin is warm and dry. Respiratory: Airway is patent Respiratory effort is even, unlabored, Respiratory pattern is regular, symmetrical, Denies shortness of breath. Derm: Skin is dry, Skin is normal, Skin temperature is warm. 08:45 Reassessment: Pt reports nausea, ERD notified, see MAR for orders. jl7 09:25 Reassessment: Pt requesting more pain medication, reports pain level of an 8/10, ERD jl7 notified, see MAR for oders. 10:13 Reassessment: Patient appears in no apparent distress at this time. Patient and/or ca1 family updated on plan of care and expected duration. Pain level reassessed. Patient is alert, oriented x 3, equal unlabored respirations, skin warm/dry/pink. 11:05 Reassessment: Patient appears in no apparent distress at this time. Patient and/or ca1 family updated on plan of care and expected duration. Pain level reassessed. Patient is alert, oriented x 3, equal unlabored respirations, skin warm/dry/pink. Patient states symptoms have not improved. 11:18 Reassessment: VO Fentanyl 50 mcg when SBP >100. See MAR. ca1 12:09 Reassessment: Patient appears in no apparent distress at this time. Patient is alert, ca1 oriented x 3, equal unlabored respirations, skin warm/dry/pink. Vital Signs: 07:14 BP 115 / 74; Pulse 78; Resp 18; Temp 98.4; Pulse Ox 98% on R/A; Weight 72.57 kg; Height ph 5 ft. 2 in. (157.48 cm); Pain 10/10; 08:30 BP 110 / 79; Pulse 61; Resp 21; Pulse Ox 99% ; Pain 10/10; jl7 09:00 BP 114 / 69; Pulse 61; Resp 15; Pulse Ox 59% ; Pain 8/10; jl7 10:13 BP 113 / 62; Pulse 56; Resp 16 S; Pulse Ox 97% on R/A; ca1 11:06 BP 95 / 58; Pulse 63; Resp 18 S; Pulse Ox 98% on R/A; ca1 11:19 BP 105 / 60; Pulse 55; Resp 18 S; Pulse Ox 98% on R/A; ca1 12:09 BP 94 / 56; Pulse 62; Resp 16 S; Weight 44.45 kg (M); ca1 12:09 Body Mass Index 17.92 (44.45 kg, 157.48 cm) ca1 ED Course: 07:04 Patient arrived in ED. as 07:16 Triage completed. ph 07:17 Mateusz Butler, RN is Primary Nurse. jl7 07:17 Arm band placed on Patient placed in an exam room, on a stretcher, on pulse oximetry. ph 07:17 Patient has correct armband on for positive identification. Bed in low position. Call ph light in reach. Side rails up X 1. Pulse ox on. NIBP on. Door closed. Noise minimized. Warm blanket given. 07:28 Gilbert Hassan MD is Attending Physician. tw4 08:10 Initial lab(s) drawn, by me, sent to lab. Accessed Port-a-Cath. using ,sterile [facility] technique, per hospital protocol. Clean \T\ dry. Dressing intact. Good blood return. Flushes easily. 20G 1.5 in. PowerLoc Max. 09:01 CXR XRAY In Process Unspecified. EDMS 12:09 No provider procedures requiring assistance completed. IV discontinued, intact, ca1 bleeding controlled, No redness/swelling at site. Pressure dressing applied. Administered Medications: 08:10 Drug: NS 0.9% 1000 ml Route: IV; Rate: 1 bolus; Site: Port-a-cath; 7 08:30 Drug: Dilaudid (HYDROmorphone) 1 mg Route: IVP; Site: Port-a-cath; 7 09:00 Follow up: Response: No adverse reaction; Pain is decreased jl7 08:36 Not Given (pt reports allergy to med): morphine 4 mg IVP once; RASS on ADMIN: Combtv4, jl7 Very Agttd3, Agttd2, Rstlss1, AlertClm0, Drwsy-1, Lt Sdtn-2, Mod Sdtn-3, Dp Sdtn-4, UnArsble-5 08:50 Drug: Phenergan (promethazine) 25 mg Route: IVP; Site: Port-a-cath; jl7 09:00 Follow up: Response: No adverse reaction; Nausea is decreased jl7 09:30 Drug: Dilaudid (HYDROmorphone) 1 mg Route: IVP; Site: Port-a-cath; jl7 11:06 Follow up: Response: No adverse reaction; Pain is unchanged, physician notified; RASS: ca1 Restless (+1) 09:30 Drug: NS 0.9% 1000 ml Route: IV; Rate: 1 bolus; Site: Port-a-cath; jl7 11:30 Follow up: Response: No adverse reaction; IV Status: Completed infusion; IV Intake: ca1 2000ml 11:20 Drug: fentaNYL (PF) 50 mcg {Note: rass 0.} Route: IVP; Site: Port-a-cath; ca1 12:07 Follow up: Response: No adverse reaction; Pain is decreased; RASS: Alert and Calm (0) ca1 12:07 Drug: HEParin Flush (100 units/mL) 500 units Route: IVP; Site: Port-a-cath; ca1 12:07 Follow up: Response: Medication administered at discharge. ca1 Intake: 11:30 IV: 2000ml; Total: 2000ml. ca1 Outcome: 11:28 Discharge ordered by . katlyn 12:09 Discharged to home via wheelchair, with family. ca1 12:09 Condition: stable 12:09 Discharge instructions given to patient, Instructed on discharge instructions, follow up and referral plans. no drinking with medication, no driving heavy equipment, medication usage, Demonstrated understanding of instructions, follow-up care, medications, Prescriptions given X 2. 12:13 Patient left the ED. ca1 Signatures: Dispatcher [employer] EDEufemia Meehan Patricia, RN SHYAM Mateusz Butler RN RN jl7 Gilbert Hassan MD MD tw4 Acob, Cheryl, RN RN ca1 Corrections: (The following items were deleted from the chart) 12:10 12:09 Discharge instructions given to patient, Instructed on discharge instructions, ca1 follow up and referral plans. medication usage, Demonstrated understanding of instructions, follow-up care, medications, Prescriptions given X 2, ca1
[2020-10-12] MEDS ORDERED: FENTANYL CITR 100 MCG/2 ML ONE (11:42)
[2020-10-12] MEDS ORDERED: HEPARIN 500 UNIT/5 ML SYR IV ONE (12:12)
[2020-10-12 12:23] VITALS: TEMP 98.4
[2020-10-12 12:41] VITALS: O2SAT 98
[2020-10-12 12:43] VITALS: BP 94/56
== END 2020-10-12 12:13 | disposition home or self-care (01) ==
LOC: ER 07:01
DX: D57.219 Sickle-cell/Hb-C disease with crisis, unspecified (principal); Z86.711 Personal history of pulmonary embolism; Z79.01 Long term (current) use of anticoagulants; Z88.5 Allergy status to narcotic agent; Z88.8 Allergy status to other drugs, medicaments and biological substances
CPT/HCPCS: 85025; 36415; 85044; 80053; 71045; J2550; J3010; J1170 ×2; J1642; J7030 ×2; 96361; 96374; 96375; 99284

== ENCOUNTER 2020-11-24 14:22 | Inpatient (IN) | payer OTHER ==
--- OUTSIDE RECORDS SUMMARY | 2020-11-24 14:26 | XMS REPORT | Continuity of Care Document ---
:1990 Author Organization [facility] t Address [address] [place] [address] Support Name Relationship Address Phone DENI Unavailable [id number] [facility] [phone] [address] [place] [address] DENI Unavailable [address] [facility] [phone] [address] [place] [address] JORDAN Unavailable [address] [facility] [phone] [place] [address] JORDAN Unavailable [address] [facility] [phone] [place] [address] CLINTON DELEON MD E Admitting Provider [address] [facility] [address] [place] [address] JESSICA SIDDIQUI Primary Care Physician [address] [facility] [address] [place] [address] VIJAYA MULLEN MD A Emergency Provider [address] [facility] [place] [address] NAIMA MULLEN Attending Provider [address] [place] [address] JORDAN Next of Kin [address] [place] [address] IZZY MULLEN, E Emergency Provider [address] [facility] [address] [place] [address] PHYSICIAN Primary Care Physician Unavailable Unavailab chrissy GRISSOM MD, MD Emergency Provider [address] [phone] [place] [address] OTHER, NAME IN NOTES Primary Care Physician Unavailable Sylvie caity SHIN MD, MD Emergency Provider [address] [facility] [phone] [place] [address] ISABELLA MULLEN MD MORE Admitting Provider [address] [place] [address] FRANCIS Primary Care Physician [address] [facility] [facility] [place] [address] MD AMRITA A Emergency Provider [facility] [phone] [place] [address] [place] [address] Care Team Providers Name Role Phone Shaikh [...] is [facility] 00 [place] Pneumonia Pneumonia Disease Active [facility] 00 [place] 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[facility] cell 2-29 [facility] - anemia anemia 00:00: Medical 00 [place] 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[facility] cell cell 2-28 [facility] - crisis crisis 00:00: Medical 00 Center Allergies, Adverse Reactions, Alerts Allergy Allergy Status Severity Reaction(s) Onset Inactive Treating Comm ents Source Name Type Date Date Clinician Ondanset Drug Active Nausea And [facility] Hcl Intolera Vomiting 2-28 [facility] - (Pf) nce 00:00: Medical 00 [place] morphine DA Active [facility] 3[facility]11 [place] 00:00: d 00 [facility] TEGEDERM DA Active [facility] DRESSING 8-23 [place] 00:00: d 00 [facility] Family History Family Member Diagnosis Comments Start Date Stop Date Source Natural brother Unremarkable [facility] Natural father Seizures [facility] Natural father Sickle cell trait [facility] Natural mother Sickle cell trait [facility] Natural sister Unremarkable [facility] Social History Social Habit Start Date Stop Date Quantity Comments Source Sex Assigned [facility] Tobacco use and 2018-08-02 2018-08-02 Never used [facility] - exposure 00:00:00 00:00:00 Medical Center Alcohol intake 2018-08-02 2018-08-[address] [facility] - 00:00:00 00:00:00 non-drinker of Medical Ce nter alcohol (finding) Smoking Status Start Date Stop Date Source Never sm[facility] Medications Ordered Filled Start Stop Current Ordering Indication Dosage Frequency Signature Comments Components Source Medication Medication Date Date Medication? Clinician (SIG) Name Name folic acid Yes folate 2mg QD Take [address] (FOLVITE) 1 3-31 deficiency by mouth [facility] - MG tablet 14:39: daily. Medica l 58 Center penicillin 2019- Yes 250mg Take [address] [...] rita 00 a week. Center PROAIR HFA 2019- Yes 1{puff} Inhale [address] 90 2-22 puff by [facility] - mcg/actuati 00:00: mouth via M edical on inhaler 00 inhaler Center every 6 (six) hours as needed. prochlorper 2019- Yes 1{tbl} Take [address] azine 1-14 tablet by [facility] - (COMPAZINE) 00:00: mouth Medic al 10 MG 00 every 8 Center tablet (eight) hours as needed nausea. Procedures This patient has no known procedures. Plan of Care Planned Activity Planned Date Details Comments Source Future Scheduled 2020-01-12 INFLUENZA VACCINE (#1) [facility] - Test 00:00:00 [code = INFLUENZA Medical Ce nter VACCINE (#1)] Future Scheduled 2012-09-[address] [facility] - Test 00:00:00 malignant neoplasm of Medica l Center cervix (procedure) [code = 422837340] Future Scheduled [address] [facility] - Test 00:00:00 (procedure) [code = Medical Center 11293071] Future Scheduled 1997-09-[address] [address] [...] [facility]BL 04:27:00 04:27:00 2018-07-20 2018-07-20 Emergency E [facility] [address] [facility] 10:30:00 10:30:00 Results Test Description Test Time Test Comments Results Result Comments Source SARS-COV2/RT-PCR ([facility]) 2019-11-14 17:47:00 Test Item Value Reference Range Interpretation Comme nts SARS-COV2/RT-PCR (test code = 2941787) Negative Not Detected, N egative SARS-COV-2 PERFORMING LAB (test code = 2998864) [facility] Negative results do not preclude SARS-CoV-2 infection [...] of the Act.Fact Sheet for Healthcare Pro viders:https://www.Contraqer.GrayBug/Documents/Xpert%20Xpress%20SARS%20CoV-2/Fact%20Sh eets/302-3242%64WDMY-HSK-7%20HEALTHCARE%20PROVIDERS%20FACT%20SHEET.pdfFact Sheet for Healthcare Patients:https://www.Visual Mining.GrayBug/Documents/Xpert%20Xpress%20SARS%20CoV-2/Fact%20Sheets/3023801%20SARS-COV -2%20PATIENT%20FACT%20SHEET.pdfPerforming Laboratory:[place] [address], [place] [address]VHA W/PLT COUNT & AUTO DIFFERENTIAL 2018-08-10 08:25:00 [...] 3438) Received comment: User comments: Slide comments:RETICULOCYTE [id number] 08:06:00 Test Item Value Reference Range Interpretation Comments RETICULOCYTE COUNT PCT (BEAKER) (test 25.0 % 0.5-1.7 H code = 575) CBC W/PLT COUNT & AUTO [id number] 09:27:00 Test Item Value Reference Range Interpretation [...] 3438) Received comment: User comments: Slide comments:RETICULOCYTE [id number] 05:01:00 Test Item Value Reference Range Interpretation Comments RETICULOCYTE COUNT PCT (BEAKER) (test 21.6 % 0.5-1.7 H code = 575) CBC W/PLT COUNT & AUTO [id number] 15:17:00 Test Item Value Reference Range Interpretation [...] H (BEAKER) (test code = 413) RETICULOCYTE [id number] 08:44:00 Test Item Value Reference Range Interpretation Comments RETICULOCYTE COUNT PCT (BEAKER) (test 23.8 % 0.5-1.7 H code = 575) BLOOD [id number] 14:01:00 Test Item Value Reference Range Interpretation Comments CULTURE (BEAKER) (test No growth in 5 days code = 1095) BLOOD [id number] 12:01:00 Test Item Value Reference Range Interpretation Comments CULTURE (BEAKER) (test No growth in 5 days code = 1095) CBC W/PLT COUNT & AUTO [id number] 11:38:00 Test Item Value Reference Range Interpretation [...] 3438) Received comment: User comments: Slide comments:RETICULOCYTE [id number] 07:44:00 Test Item Value Reference Range Interpretation Comments RETICULOCYTE COUNT PCT (BEAKER) (test 27.0 % 0.5-1.7 H code = 575) RETICULOCYTE [id number] 07:19:00 Test Item Value Reference Range Interpretation Comments RETICULOCYTE COUNT PCT (BEAKER) (test 22.7 % 0.5-1.7 H code = 575) CBC W/PLT COUNT & AUTO [id number] 12:07:00 Test Item Value Reference Range Interpretation [...] 3438) Received comment: User comments: Slide comments:RETICULOCYTE [id number] 06:14:00 Test Item Value Reference Range Interpretation Comments RETICULOCYTE COUNT PCT (BEAKER) (test 21.9 % 0.5-1.7 H code = 575) [id number] 06:02:00 Test Item Value Reference Range Interpretation Comments PHOSPHORUS (BEAKER) (test code = 3.8 mg/dL 2.3-4.7 604) [id number] 06:02:00 Test Item Value Reference Range Interpretation Comments MAGNESIUM (BEAKER) (test code = 1.8 mg/dL 1.6-2.6 627) BASIC METABOLIC [id number] 06:02:00 Test Item Value Reference Range Interpretation [...] Specimen moderately ictericCBC W/PLT COUNT & AUTO [id number] 09:09:00 Test Item Value Reference Range Interpretation [...] = 3438) Received comment: User comments: Slide comments:[id number] 04:11:00 Test Item Value Reference Range Interpretation Comments PHOSPHORUS (BEAKER) (test code = 3.3 mg/dL 2.3-4.7 604) [id number] 04:11:00 Test Item Value Reference Range Interpretation Comments MAGNESIUM (BEAKER) (test code = 1.6 mg/dL 1.6-2.6 627) BASIC METABOLIC [id number] 04:11:00 Test Item Value Reference Range Interpretation [...] FOR DIALYSIS PATIEN TS. Specimen slightly ictericRETICULOCYTE [id number] 03:54:00 Test Item Value Reference Range Interpretation Comments RETICULOCYTE COUNT PCT (BEAKER) (test 20.4 % 0.5-1.7 H code = 575) CBC W/PLT COUNT & AUTO [id number] 18:30:00 Test Item Value Reference Range Interpretation [...] = 413) CBC W/PLT COUNT & AUTO [id number] 10:51:00 Test Item Value Reference Range Interpretation [...] 3438) Received comment: User comments: Slide comments:RETICULOCYTE [id number] 10:08:00 Test Item Value Reference Range Interpretation Comments RETICULOCYTE COUNT PCT (BEAKER) (test 14.4 % 0.5-1.7 H code = 575) CBC W/PLT COUNT & AUTO [id number] 09:30:00 Test Item Value Reference Range Interpretation [...] = 3438) Received comment: User comments: Slide comments:[id number] 03:32:00 Test Item Value Reference Range Interpretation Comments PHOSPHORUS (BEAKER) (test code = 3.5 mg/dL 2.3-4.7 604) [id number] 03:32:00 Test Item Value Reference Range Interpretation Comments MAGNESIUM (BEAKER) (test code = 1.8 mg/dL 1.6-2.6 627) BASIC METABOLIC [id number] 03:32:00 Test Item Value Reference Range Interpretation [...] ictericCT, CHEST WITH IV CONTRAST- PE TEST [id number] 14:01:00FINAL REPORT CT scan of the chest. [...] MDReport Verified Date/Time: 08/02/2018 14:01:29 Reading Location: [address] Reading Room URINALYSIS W/ REFLEX URINE [id number] 11:27:00 Test Item Value Reference Range Interpretation [...] 516) SOURCE(BEAKER) (test code = 2795) SCREEN, [id number] 11:15:00 Test Item Value Reference Range Interpretation Comments TEST URINE (BEAKER) (test Negative code = 583) RETICULOCYTE [id number] 04:43:00 Test Item Value Reference Range Interpretation Comments RETICULOCYTE COUNT PCT (BEAKER) (test 13.2 % 0.5-1.7 H code = 575) RAD, CHEST, 2 [id number] 03:54:00Reason for exam:->SICKLE CELL PAIN CRISISIs the [...] port is in place. Signed: Costa Ferris Verified Date/Time: 08/02/2018 03:54:52Reading Location: [address] Reading Room CBC W/PLT COUNT & [...] (BEAKER) (test code = 417) COMPREHENSIVE METABOLIC [id number] 02:42:00 Test Item Value Reference Range Interpretation [...]
[2020-11-24] MEDS ORDERED: PROMETHAZINE INJ 25 MG/ML AMP ONE ×2 (15:56→20:30)
[2020-11-24] MEDS ORDERED: NA CHLORIDE 0.9% 1,000 ML ONE ×2 (15:57→20:31)
[2020-11-24] MEDS ORDERED: HYDROMORPHONE HCL 1 MG/ML INJ ONE ×4 (15:57→23:47)
[2020-11-24 18:15] LABS: Absolute Lymphocytes (CBC) 2.9 K/uL (0.7-4.9); Basophils % 0.7 % (0-1.3); Lymphocytes % 11.4 % (15.3-44.8); MPV 7.9 fL (7.6-11.3)
[2020-11-24 18:26] LABS: Hematocrit 20.9 % (36.0-45.0)
[2020-11-24 18:48] LABS: ALT/SGPT 21 U/L (12-78); AST/SGOT 21 U/L (15-37); Albumin 4.1 g/dL (3.4-5.0); Alkaline Phosphatase 65 U/L (45-117); BUN Blood Urea Nitrogen 6 mg/dL (7-18); Bicarbonate 25 mmol/L (21-32); Glucose Level 91 mg/dL (74-106); Potassium 3.7 mmol/L (3.5-5.1); Protein, Total 7.5 g/dL (6.4-8.2); Sodium Level 143 mmol/L (136-145)
[2020-11-24 18:50] LABS: Bilirubin Total 5.2 mg/dL (0.2-1.0)
--- NOTE | 2020-11-24 19:50 | EDPHYS ---
Physician Documentation [facility] Name: Gume Ortega Age: 30 yrs Sex: Female : 1990 Arrival Date: 11/24/2020 Time: 14:23 Bed 14 Private MD: Neil Benitez E ED Physician Chico Menezes HPI: 11/24 15:20 This 30 yrs old Black Female presents to ER via Wheelchair with complaints of Sickle pm1 Cell Crisis, Nausea/Vomiting. 15:20 The patient presents to the emergency department with nausea, vomiting. Onset: The pm1 symptoms/episode began/occurred 2 day(s) ago. Possible causes: unknown. The symptoms are aggravated by nothing. The symptoms are alleviated by nothing. Associated signs and symptoms: Pertinent positives: generalized bodyaches, Pertinent negatives: abdominal pain, dysuria, fever. Severity of symptoms: in the emergency department the symptoms are worse. The patient has experienced similar episodes in the past, several times, sickle cell crisis. The patient has not recently seen a physician. Historical: - Allergies: 14:37 Morphine; aa5 14:37 Zofran; aa5 - Home Meds: 14:37 alprazolam 1 mg Oral tab [Active]; Dilaudid 8 mg Oral tab 1 tab every 6 hours [Active]; aa5 Eliquis 2.5 mg Oral tab 1 tab 2 times per day [Active]; folic acid 800 mcg Oral tab 1 tab once daily [Active]; Vitamin D Oral [Active]; - PMHx: 14:37 blood clot in lung; Sickle Cell; aa5 - Immunization history:: Adult Immunizations unknown. - Social history:: Smoking status: Patient/guardian denies using tobacco, Patient uses street drugs, marijuana. ROS: 15:20 Constitutional: Negative for fever, chills, and weight loss, Cardiovascular: Negative pm1 for chest pain, palpitations, and edema, Respiratory: Negative for shortness of breath, cough, wheezing, and pleuritic chest pain. 15:20 Back: Negative for injury and pain, : Negative for injury, bleeding, discharge, and swelling, Skin: Negative for injury, rash, and discoloration, Neuro: Negative for headache, weakness, numbness, tingling, and seizure. 15:20 Constitutional: Positive for body aches. 15:20 Abdomen/GI: Positive for nausea and vomiting, Negative for abdominal pain, diarrhea, constipation. 15:20 MS/extremity: Positive for joint pain, Negative for injury or acute deformity, decreased range of motion. 15:20 All other systems are negative. Exam: 15:20 Constitutional: This is a well developed, well nourished patient who is awake, alert, pm1 and in no acute distress. Head/Face: Normocephalic, atraumatic. 15:20 Back: No spinal tenderness. No costovertebral tenderness. Full range of motion. Skin: Warm, dry with normal turgor. Normal color with no rashes, no lesions, and no evidence of cellulitis. MS/ Extremity: Pulses equal, no cyanosis. Neurovascular intact. Full, normal range of motion. 15:20 Eyes: Exam is negative for acute changes, Extraocular movements: intact throughout, Conjunctiva: no acute changes, no injection. 15:20 ENT: Mouth: Lips: cracked, Oral mucosa: normal, pink and intact, dry. 15:20 Chest/axilla: Exam negative for acute changes, Palpation: no acute changes. 15:20 Cardiovascular: Rate: normal, Rhythm: regular, Pulses: no pulse deficits are appreciated, Edema: is not appreciated. 15:20 Respiratory: Exam negative for acute changes, respiratory distress, shortness of breath, Breath sounds: are clear throughout. 15:20 Abdomen/GI: Inspection: abdomen appears normal, Palpation: abdomen is soft and non-tender, in all quadrants. 15:20 Neuro: Exam negative for acute changes, Orientation: is normal, Mentation: is normal, Motor: is normal, moves all fours. Vital Signs: 14:37 BP 133 / 78; Pulse 80; Resp 24 S; Temp 98.8(TE); Pulse Ox 100% on R/A; aa5 16:00 BP 107 / 57; Pulse 54; Resp 15; Pulse Ox 100% on R/A; bb 16:30 BP 105 / 63; Pulse 50; Resp 20; Pulse Ox 100% on R/A; bb 17:00 BP 107 / 63; Pulse 59; Resp 20; Pulse Ox 100% on R/A; bb 17:30 BP 105 / 50; Pulse 59; Resp 17; Pulse Ox 99% on R/A; bb 17:45 Pain 6/10; kg 18:00 BP 95 / 51; Pulse 61; Resp 17; Pulse Ox 98% on R/A; bb 18:30 BP 103 / 61; Pulse 54; Resp 16; Pulse Ox 99% on R/A; bb 19:21 BP 110 / 73; Pulse 74; Resp 16; Pulse Ox 98% on R/A; ak2 21:34 BP 105 / 69; Pulse 67; Resp 16; Pulse Ox 98% on 2 lpm NC; ak2 23:13 BP 111 / 59; Pulse 70; Resp 16; Pulse Ox 99% on R/A; ak2 MDM: 14:58 Patient medically screened. pm1 19:03 Counseling: I had a detailed discussion with the patient and/or guardian regarding: the pm1 historical points, exam findings, and any diagnostic results supporting the discharge/admit diagnosis, lab results, the need for further work-up and treatment in the hospital. 19:49 Data reviewed: vital signs. pm1 19:49 Physician consultation: Han AGUILAR regarding admission, patient's condition, and pm1 will see patient in ED. 11/24 15:20 Order name: Urine Microscopic Only pm1 11/24 15:20 Order name: Urine Microscopic Only EDKS 11/24 15:22 Order name: CBC with Diff; Complete Time: 00:08 pm1 11/24 15:22 Order name: Retic Count; Complete Time: 00:08 pm1 11/24 15:22 Order name: CMP; Complete Time: 18:50 pm1 11/24 18:52 Order name: Flu; Complete Time: 00:08 pm11/24 20:06 Order name: Manual Differential; Complete Time: 00:08 EDKS 11/24 21:37 Order name: SARS-COV-2 RT PCR; Complete Time: 00:08 EDKS 11/25 03:55 Order name: Type and Screen EDKS 11/25 06:28 Order name: Urinalysis EDKS 11/25 06:31 Order name: CBC with Automated Diff EDKS 11/25 06:40 Order name: Urine Microscopic Only EDKS 11/25 06:59 Order name: Comprehensive Metabolic Panel EDKS 11/24 15:20 Order name: EKG; Complete Time: 15:20 pm11/24 15:20 Order name: EKG - Nurse/Tech; Complete Time: 20:08 pm11/24 19:13 Order name: Chest Single View XRAY; Complete Time: 00:08 pm1 11/25 06:59 Order name: Phosphorus EDMS 11/25 06:59 Order name: Magnesium EDMS Administered Medications: 15:44 Drug: Phenergan (promethazine) 12.5 mg Route: IVP; Site: Port-a-cath; kg 20:08 Follow up: Response: Marked relief of symptoms kg 15:45 Drug: NS 0.9% 1000 ml Route: IV; Rate: 1000 ml; Site: Port-a-cath; kg 17:03 Follow up: Response: No adverse reaction; IV Status: Completed infusion; IV Intake: kg 1000ml 15:46 Drug: Dilaudid (HYDROmorphone) 1 mg Route: IVP; Site: Port-a-cath; kg 16:00 Follow up: Response: No adverse reaction; No change in condition kg 17:03 Drug: Dilaudid (HYDROmorphone) 1 mg Route: IVP; Site: Port-a-cath; kg 17:45 Follow up: Pain 6/10 Adult; Response: No adverse reaction; Pain is decreased kg 19:15 Drug: Dilaudid (HYDROmorphone) 1 mg Route: IVP; Site: Port-a-cath; kg 21:35 Follow up: Response: Pain is decreased ak2 19:18 Drug: NS 0.9% 1000 ml Route: IV; Rate: 1000 ml; Site: Port-a-cath; kg 21:35 Drug: Phenergan (promethazine) 12.5 mg Route: IVP; Site: Port-a-cath; ak2 21:36 Follow up: Response: Nausea is decreased ak2 23:27 Drug: Dilaudid (HYDROmorphone) 1 mg Route: IVP; Site: Port-a-cath; ak2 23:28 Follow up: Response: Pain is decreased ak2 Disposition: 11/25 18:03 Co-signature as Attending Physician, Chico Menezes MD I agree with the assessment and kdr plan of care. Disposition Summary: 11/24/20 19:50 Hospitalization Ordered Hospitalization Status: Inpatient Admission pm1 Provider: Han Curry pm1 Condition: Stable pm1 Problem: new pm1 Symptoms: have improved pm1 Bed/Room Type: Standard pm1 Location: Telemetry/MedSurg (Inpatient)(11/25/20 12:41) dw Room Assignment: 208(11/25/20 12:41) dw Diagnosis - Other sickle-cell disorders with crisis pm1 - Vomiting pm1 Forms: - Medication Reconciliation Form pm1 - SBAR form pm1 Signatures: Dispatcher [employer] EDMS Luz Elena Charlton RN RN dw Chico Menezes MD MD kdr Calderon, Audri, RN RN aa5 Nelson Michaud PA PA Phoenix Grubbs NP DECORATOR HAND pm1 Trim, Ted tt3 Lisa Prince RN RN kg Garcia Oakes ak2 Corrections: (The following items were deleted from the chart) 11/24 20:42 18:52 CORONAVIRUS+MR.LAB.BRZ ordered. EDKS EDKS 23:29 19:50 Telemetry/MedSurg (Inpatient) pm1 tt3 23:29 19:50 pm1 tt3 11/25 12:41 11/24 23:29 [facility] ER HOLD tt3 dw 11/25 12:41 11/24 23:29 ERHOLD- tt3 dw
--- NOTE | 2020-11-24 19:50 | ER ---
Nurse's Notes [facility] Name: Gume Ortega Age: 30 yrs Sex: Female : 1990 Arrival Date: 11/24/2020 Time: 14:23 Bed 14 Private MD: Neil Benitez E Diagnosis: Other sickle-cell disorders with crisis;Vomiting Presentation: 11/24 14:37 Chief complaint: Patient states: sickle cell crisis, increased pain, nausea and aa5 vomiting x 2 days ago. 14:37 Coronavirus screen: nausea, vomiting. Ebola Screen: Patient negative for fever greater aa5 than or equal to 101.5 degrees Fahrenheit, and additional compatible Ebola Virus Disease symptoms. Initial Sepsis Screen: Does the patient meet any 2 criteria? RR > 20 per min. Does the patient have a suspected source of infection? No. Patient's initial sepsis screen is negative. Risk Assessment: Do you want to hurt yourself or someone else? Patient reports no desire to harm self or others. Onset of symptoms was November 2020. 14:37 Acuity: MARILUZ 3 aa5 14:37 Method Of Arrival: Wheelchair aa5 Triage Assessment: 19:21 General: Appears in no apparent distress. Behavior is calm, cooperative. ak2 Historical: - Allergies: 14:37 Morphine; aa5 14:37 Zofran; aa5 - Home Meds: 14:37 alprazolam 1 mg Oral tab [Active]; Dilaudid 8 mg Oral tab 1 tab every 6 hours [Active]; aa5 Eliquis 2.5 mg Oral tab 1 tab 2 times per day [Active]; folic acid 800 mcg Oral tab 1 tab once daily [Active]; Vitamin D Oral [Active]; - PMHx: 14:37 blood clot in lung; Sickle Cell; aa5 - Immunization history:: Adult Immunizations unknown. - Social history:: Smoking status: Patient/guardian denies using tobacco, Patient uses street drugs, marijuana. Screenin:21 Abuse screen: Denies threats or abuse. Denies injuries from another. Nutritional ak2 screening: No deficits noted. Tuberculosis screening: No symptoms or risk factors identified. Fall Risk None identified. Assessment: 15:25 General: Appears distressed, uncomfortable, Behavior is cooperative, appropriate for kg age, anxious, restless. Pain: Complains of pain in Generalized Pain currently is 103 out of 10 on a pain scale. at worst was 10 out of 10 on a pain scale. level that patient reports is acceptable is 6 out of 10 on a pain scale. Quality of pain is described as burning, aching, sharp, shooting, Pain began 2-3 days ago. Alleviated by medications. Neuro: No deficits noted. Cardiovascular: No deficits noted. Heart tones S1 S2. Respiratory: No deficits noted. Airway is patent Breath sounds are clear bilaterally. GI: Abdomen is flat, Pt is actively vomiting bile, Bowel sounds present X 4 quads. : No deficits noted. EENT: No deficits noted. Derm: No deficits noted. Musculoskeletal: No deficits noted. 19:20 Reassessment: Patient and/or family updated on plan of care and expected duration. Pain ak2 level reassessed. Pain: Complains of pain in face, scalp, back, chest, abdomen, right arm, left arm, right leg and left leg. 23:13 Reassessment: Patient and/or family updated on plan of care and expected duration. Pain ak2 level reassessed. 23:28 Reassessment: Patient and/or family updated on plan of care and expected duration. Pain ak2 level reassessed. 11/25 06:59 General: t bili:6.2, physician aware. ak2 Vital Signs: 11/24 14:37 BP 133 / 78; Pulse 80; Resp 24 S; Temp 98.8(TE); Pulse Ox 100% on R/A; aa5 16:00 BP 107 / 57; Pulse 54; Resp 15; Pulse Ox 100% on R/A; bb 16:30 BP 105 / 63; Pulse 50; Resp 20; Pulse Ox 100% on R/A; bb 17:00 BP 107 / 63; Pulse 59; Resp 20; Pulse Ox 100% on R/A; bb 17:30 BP 105 / 50; Pulse 59; Resp 17; Pulse Ox 99% on R/A; bb 17:45 Pain 6/10; kg 18:00 BP 95 / 51; Pulse 61; Resp 17; Pulse Ox 98% on R/A; bb 18:30 BP 103 / 61; Pulse 54; Resp 16; Pulse Ox 99% on R/A; bb 19:21 BP 110 / 73; Pulse 74; Resp 16; Pulse Ox 98% on R/A; ak2 21:34 BP 105 / 69; Pulse 67; Resp 16; Pulse Ox 98% on 2 lpm NC; ak2 23:13 BP 111 / 59; Pulse 70; Resp 16; Pulse Ox 99% on R/A; ak2 ED Course: 14:23 Patient arrived in ED. am2 14:23 Neil Benitez MD is Private Physician. am2 14:37 Arm band placed on. aa5 14:39 Phoenix Reis NP is PHCP. pm1 14:39 Chico Menezes MD is Attending Physician. pm1 14:44 Triage completed. aa5 14:52 Lisa Prince, SHYAM is Primary Nurse. kg 17:37 EKG done, by ED staff, reviewed by Phoenix Reis NP. mb4 19:21 Patient has correct armband on for positive identification. ak2 19:21 No provider procedures requiring assistance completed. ak2 19:50 Han Curry PA is Hospitalizing Provider. pm1 19:54 Chest Single View XRAY In Process Unspecified. EDMS 20:03 Inserted saline lock: ,using aseptic technique. Accessed PORT Left chest. kg Administered Medications: 15:44 Drug: Phenergan (promethazine) 12.5 mg Route: IVP; Site: Port-a-cath; kg 20:08 Follow up: Response: Marked relief of symptoms kg 15:45 Drug: NS 0.9% 1000 ml Route: IV; Rate: 1000 ml; Site: Port-a-cath; kg 17:03 Follow up: Response: No adverse reaction; IV Status: Completed infusion; IV Intake: kg 1000ml 15:46 Drug: Dilaudid (HYDROmorphone) 1 mg Route: IVP; Site: Port-a-cath; kg 16:00 Follow up: Response: No adverse reaction; No change in condition kg 17:03 Drug: Dilaudid (HYDROmorphone) 1 mg Route: IVP; Site: Port-a-cath; kg 17:45 Follow up: Pain 6/10 Adult; Response: No adverse reaction; Pain is decreased kg 19:15 Drug: Dilaudid (HYDROmorphone) 1 mg Route: IVP; Site: Port-a-cath; kg 21:35 Follow up: Response: Pain is decreased ak2 19:18 Drug: NS 0.9% 1000 ml Route: IV; Rate: 1000 ml; Site: Port-a-cath; kg 21:35 Drug: Phenergan (promethazine) 12.5 mg Route: IVP; Site: Port-a-cath; ak2 21:36 Follow up: Response: Nausea is decreased ak2 23:27 Drug: Dilaudid (HYDROmorphone) 1 mg Route: IVP; Site: Port-a-cath; ak2 23:28 Follow up: Response: Pain is decreased ak2 Intake: 17:03 IV: 1000ml; Total: 1000ml. kg Outcome: 19:50 Decision to Hospitalize by Provider. pm1 11/25 14:22 Patient left the ED. iw Signatures: Dispatcher [employer] EDKorin Gtz RN RN bb Kayla Kohler RN RN iw Johanne Mascorro RN RN aa5 Phoenix Reis, CANDELARIO [employer] REPAIRER pm1 Ching Matt am2 Gena Henry mb4 Lisa Prince RN RN kg Garcia Oakes nj2
[2020-11-24 20:07] LABS: Blood Morphology Comment NOTED (NOT SEEN); Platelet Estimate ADEQ
--- NOTE | 2020-11-24 20:40 | RAD REPORT ---
EXAM DESCRIPTION: RAD - Chest Single View - 11/24/2020 7:54 pm CLINICAL HISTORY: PAIN COMPARISON: Portable October 12 TECHNIQUE: AP portable chest image was obtained 11/24/2020 7:54 pm . FINDINGS: No dense mass or consolidation. Interstitial markings are not substantially different from comparison. Heart size is prominent. Pulmonary vasculature within normal limits. Left-sided Port-A-C ath is in place. No measurable pleural effusion and no pneumothorax. No acute bony abnormality seen. No acute aortic findings suspected. IMPRESSION: No acute cardiopulmonary process. Chest is not substantially different from comparison.
--- NOTE | 2020-11-24 23:44 | P.HP ---
Certification for Inpatient Patient admitted to: Inpatient With expected LOS: >2 Midnights Patient will require the following post-hospital care: None Practitioner: I am a practitioner with admitting privileges, knowledge of patient current condition, hospital course, and medical plan of care. Services: Services provided to patient in accordance with Admission requirements found in Title 42 Section 412.3 of the Code of Federal Regulations Patient History Date of Service: 11/24/20 Reason for admission: vaso-occlusive crisis History of Present Illness: Ms. Ortega is a 30 yo F with sickle cell anemia here today for 1 day of intractable nausea and vomiting and whole body pain. She reports night sweats and chills. Denies abdominal pain. Allergies ondansetron HCl [From Zofran] Allergy (Mild, Verified 08/02/12 16:51) Nausea/Vomiting Home Medications: Folic Acid [Folic Acid*] 1 mg PO DAILY 08/01/12 Apixaban [Eliquis *] 1 tab PO BID 08/12/18 Promethazine Tab [Phenergan*] 25 mg PO Q4H PRN #30 tab 11/15/19 Hydromorphone HCl [Dilaudid] 8 mg PO TID #40 tablet 09/16/20 ALPRAZolam [Xanax*] 1 mg PO BIDP PRN 09/30/20 Cholecalciferol (Vitamin D3) [Vitamin D 1000 Iu Tab*] 1,000 unit PO EVERY 7TH DAY 09/30/20 - Past Medical/Surgical History Diabetic: No -: sickle cell -: port-a-cath placement - Family History Mother -: Other (see notes) Notes: sickle cell trait Father -: Other (see notes) Notes: sickle cell trait - Social History Smoking Status: Never smoker Alcohol use: Yes CD- Drugs: Yes Caffeine use: Yes Place of Residence: Home Review of Systems General: Chills, Sweats Gastrointestinal: Nausea, Vomiting Musculoskeletal: Neck Pain, Shoulder Pain, Arm Pain, Back Pain, Hand Pain, Leg Pain, Foot Pain Physical Examination - Physical Exam General: Alert, In no apparent distress HEENT: Atraumatic, PERRLA, Mucous membr. moist/pink, EOMI, Sclerae nonicteric Neck: Supple, 2+ carotid pulse no bruit, No LAD, Without JVD or thyroid abnormality Respiratory: Clear to auscultation bilaterally, Normal air movement Cardiovascular: Regular rate/rhythm, Normal S1 S2 Gastrointestinal: Normal bowel sounds, No tenderness Musculoskeletal: Tenderness Integumentary: No rashes Neurological: Normal speech, Normal strength at 5/5 x4 extr, Normal tone, Normal affect Lymphatics: No axilla or inguinal lymphadenopathy - Studies Laboratory Data (last 24 hrs) 11/24/20 17:50: Sodium 143, Potassium 3.7, BUN 6 L, Creatinine 0.42 L, Glucose 91, Total Bilirubin 5.2 H*, AST 21, ALT 21, Alkaline Phosphatase 65 11/24/20 17:50: WBC 25.10 H*, Hgb 7.2 L, Hct 20.9 L*, Plt Count 362 Microbiology Data (last 24 hrs): 11/24/20 19:51 Nasopharnyx Influenza Type A Antigen Screen - Final 11/24/20 19:51 Nasopharnyx Influenza Type B Antigen Screen - Final Assessment and Plan - Plan Assessment vaso-occlusive crisis, sickle cell anemia Plan continue IV pain medication, IV antiemetics and benadryl continue home eliquis dose type + screen, will transfuse for Hgb <7 continue IVF, O2 prn blood cultures, urinalysis pending Discharge Plan: Home Plan to discharge in: 48 Hours - Advance Directives Does patient have a Living Will: No Does patient have a Durable POA for Healthcare: No - Code Status/Comfort Care Code Status Assessed: Yes (full code) Critical Care: No Time Spent Managing Pts Care (In Minutes): 70
[2020-11-24] MEDS ORDERED: ACETAMINOPHEN 500 MG TAB PO PRN (23:48)
[2020-11-24] MEDS: APIXABAN 2.5 MG TABLET PO SCH (23:48)
[2020-11-24] MEDS: NA CHLORIDE 0.9% 1,000 ML IV SCH (23:48)
[2020-11-25 00:04] VITALS: BMI 28.0
[2020-11-25] MEDS ORDERED: APIXABAN 5 MG TABLET ONE ×2 (01:34→09:42)
[2020-11-25] MEDS: PROMETHAZINE INJ 25 MG/ML AMP IV PRN ×4 (02:46→18:10)
[2020-11-25] MEDS: HYDROMORPHONE HCL 1 MG/ML INJ IV PRN ×5 (02:46→21:09)
[2020-11-25] MEDS ORDERED: PROMETHAZINE INJ 25 MG/ML AMP ONE ×3 (02:58→11:42)
[2020-11-25] MEDS ORDERED: HYDROMORPHONE HCL 1 MG/ML INJ ONE ×3 (02:58→11:42)
[2020-11-25 06:20] LABS: Absolute Lymphocytes (CBC) 4.7 K/uL (0.7-4.9); Basophils % 1.3 % (0-1.3); Lymphocytes % 18.8 % (15.3-44.8); MPV 8.4 fL (7.6-11.3); RBC Red Blood Cell Count 2.14 M/uL (3.86-4.86)
[2020-11-25 06:27] LABS: Urine Appearance CLOUDY (Clear); Urine Bilirubin NEGATIVE (Negative); Urine Blood NEGATIVE (Negative); Urine Color DK YELLOW (Yellow); Urine Glucose NEGATIVE (Negative); Urine Protein NEGATIVE (Negative); Urine Urobilinogen 0.2 mg/dL (0.2-1.0); Urine pH 5.5 (5.0-7.0)
[2020-11-25 06:28] LABS: Urine Microscopic Reflex ORDER UMIC
[2020-11-25 06:31] LABS: Hematocrit 20.2 % (36.0-45.0)
[2020-11-25 06:39] LABS: Urine Bacteria 20-50 /HPF (<20); Urine RBC NONE SEEN /HPF (NONE SEEN); Urine Trichomonas PRESENT (NONE SEEN)
[2020-11-25] MEDS: DIPHENHYDRAMINE 50 MG/ML VIAL IV PRN ×2 (06:44→18:14)
[2020-11-25 06:51] LABS: ALT/SGPT 20 U/L (12-78); AST/SGOT 22 U/L (15-37); Alkaline Phosphatase 62 U/L (45-117); BUN Blood Urea Nitrogen 6 mg/dL (7-18); Bicarbonate 25 mmol/L (21-32); Glucose Level 86 mg/dL (74-106); Phosphorus 2.6 mg/dL (2.5-4.9); Potassium 3.6 mmol/L (3.5-5.1); Sodium Level 142 mmol/L (136-145)
[2020-11-25 06:59] LABS: Bilirubin Total 6.2 mg/dL (0.2-1.0)
[2020-11-25] MEDS ORDERED: DIPHENHYDRAMINE 50 MG/ML VIAL ONE (07:04)
[2020-11-25] MEDS: APIXABAN 2.5 MG TABLET PO SCH ×2 (09:00→21:11)
[2020-11-25] MEDS ORDERED: PNEUMOCOCCAL VACCINE 0.5 ML IMVAC ONE (09:00)
[2020-11-25] MEDS ORDERED: NA CHLORIDE 0.9% 1,000 ML ONE (09:43)
[2020-11-25] MEDS: NA CHLORIDE 0.9% 1,000 ML IV SCH ×2 (09:48→18:11)
--- NOTE | 2020-11-25 11:44 | EKG ---
Test Date: 2020-11-24 Test Time: 17:31:44 Glass Artist: CHASTITY MEASUREMENT RESULTS: Intervals: Rate: 59 HI: 130 QRSD: 82 QT: 462 QTc: 457 [place]: P: -3 HI: 130 QRS: 54 T: 55 INTERPRETIVE STATEMENTS: Sinus bradycardia Otherwise normal ECG Compared to ECG 09/30/2020 00:17:00 No significant changes Electronically Signed On 11-25-20 11:42:07 CDT by Jeremie Pan
--- NOTE | 2020-11-25 17:41 | P.PN ---
Subjective Date of Service: 11/25/20 Chief Complaint: vaso-occlusive crisis Patient complaining of pain all over. She has severe leukocytosis. Bilirubin trended up. No fever. Blood pressure is borderline low. Physical Examination - Vital Signs Temperature: 97.6 F Blood Pressure: 105/53 Pulse: 62 Respirations: 18 Pulse Ox (%): 95 - Physical Exam General: Alert, In no apparent distress, Oriented x3 HEENT: PERRLA, Scleral icterus Neck: JVD not distended Respiratory: Clear to auscultation bilaterally, Normal air movement Cardiovascular: No edema, Regular rate/rhythm, Normal S1 S2 Gastrointestinal: Normal bowel sounds, Soft and benign, Non-distended, No tenderness Musculoskeletal: No swelling Integumentary: No rashes Neurological: Normal strength at 5/5 x4 extr - Studies Laboratory Data (last 24 hrs) 11/24/20 17:50: Sodium 143, Potassium 3.7, BUN 6 L, Creatinine 0.42 L, Glucose 91, Total Bilirubin 5.2 H*, AST 21, ALT 21, Alkaline Phosphatase 65 11/24/20 17:50: WBC 25.10 H*, Hgb 7.2 L, Hct 20.9 L*, Plt Count 362 Microbiology Data (last 24 hrs): 11/24/20 19:51 Nasopharnyx Influenza Type A Antigen Screen - Final 11/24/20 19:51 Nasopharnyx Influenza Type B Antigen Screen - Final Assessment And Plan - Current Problems (Diagnosis) (1) Anemia, sickle cell with crisis Current Visit: No Status: Acute (2) Sickle cell pain crisis Current Visit: No Status: Acute (3) Hemolytic anemia Current Visit: No Status: Acute Qualifiers: Hemolytic anemia type: hereditary hemolytic anemia, other Qualified Code(s): D58.8 - Other specified hereditary hemolytic anemias - Plan Continue supportive measures with aggressive IV hydration Pain management as needed. Empiric IV antibiotic Monitor CBC, blood chemistry and LFT.
[2020-11-25] MEDS: CEFTRIAXONE/SWI 1gm 1 GM/10 ML SYR IVP SCH (18:16)
[2020-11-25] MEDS: VANCOMYCIN 1.25 GM in NA CHLORIDE 0.9% 250 ML IVPB SCH (21:06)
[2020-11-26] MEDS: HYDROCODONE/APAP 10/325 TAB PO PRN ×3 (00:37→20:23)
[2020-11-26] MEDS: NA CHLORIDE 0.9% 1,000 ML IV SCH ×3 (00:38→16:40)
[2020-11-26] MEDS: HYDROMORPHONE HCL 1 MG/ML INJ IV PRN ×5 (01:48→22:23)
[2020-11-26] MEDS: DIPHENHYDRAMINE 50 MG/ML VIAL IV PRN ×3 (01:52→22:22)
[2020-11-26] MEDS: PROMETHAZINE INJ 25 MG/ML AMP IV PRN ×5 (01:55→22:18)
[2020-11-26 06:28] LABS: BUN Blood Urea Nitrogen 3 mg/dL (7-18); Bicarbonate 25 mmol/L (21-32); Glucose Level 82 mg/dL (74-106); Potassium 3.4 mmol/L (3.5-5.1); Sodium Level 143 mmol/L (136-145)
[2020-11-26] MEDS ORDERED: POTASSIUM CL SA 10 MEQ TAB PO ONE (08:00)
[2020-11-26] MEDS: APIXABAN 2.5 MG TABLET PO SCH ×2 (08:54→20:23)
[2020-11-26] MEDS: CEFTRIAXONE/SWI 1gm 1 GM/10 ML SYR IVP SCH (08:54)
[2020-11-26] MEDS: VANCOMYCIN 1.25 GM in NA CHLORIDE 0.9% 250 ML IVPB SCH ×2 (10:04→20:24)
--- NOTE | 2020-11-26 14:03 | P.PN ---
Subjective Date of Service: 11/26/20 Chief Complaint: vaso-occlusive crisis Patient reports no changes from yesterday. She reports generalized body aches. She has severe leukocytosis. Bilirubin trended up. No fever. . Physical Examination - Vital Signs Temperature: 97.6 F Blood Pressure: 105/53 Pulse: 62 Respirations: 18 Pulse Ox (%): 95 - Physical Exam General: Alert, In no apparent distress HEENT: Mucous membr. moist/pink Neck: JVD not distended Respiratory: Clear to auscultation bilaterally, Normal air movement Cardiovascular: No edema, Regular rate/rhythm, Normal S1 S2 Gastrointestinal: Soft and benign, Non-distended, No tenderness Musculoskeletal: No swelling Integumentary: No rashes, No erythema Neurological: Normal speech, Normal strength at 5/5 x4 extr Assessment And Plan - Current Problems (Diagnosis) (1) Anemia, sickle cell with crisis Current Visit: No Status: Acute (2) Sickle cell pain crisis Current Visit: No Status: Acute (3) Hemolytic anemia Current Visit: No Status: Acute Qualifiers: Hemolytic anemia type: hereditary hemolytic anemia, other Qualified Code(s): D58.8 - Other specified hereditary hemolytic anemias (4) Gram-positive bacteremia Current Visit: Yes Status: Acute - Plan Continue supportive measures with aggressive IV hydration Pain management as needed. Empiric IV vancomycin and Rocephin. Repeat blood cultures. Follow blood culture 11/25 for organism identification and sensitivity. Monitor CBC, blood chemistry and LFT.
[2020-11-27] MEDS: HYDROCODONE/APAP 10/325 TAB PO PRN ×3 (02:19→22:57)
[2020-11-27] MEDS: NA CHLORIDE 0.9% 1,000 ML IV SCH ×3 (02:19→17:25)
[2020-11-27] MEDS: HYDROMORPHONE HCL 1 MG/ML INJ IV PRN ×5 (02:24→20:29)
[2020-11-27] MEDS: PROMETHAZINE INJ 25 MG/ML AMP IV PRN ×3 (02:57→17:31)
[2020-11-27 05:48] LABS: Basophils % 0.6 % (0-1.3); Lymphocytes % 31.1 % (15.3-44.8); MPV 8.6 fL (7.6-11.3); RBC Red Blood Cell Count 1.87 M/uL (3.86-4.86)
[2020-11-27 05:58] LABS: Hematocrit 17.9 % (36.0-45.0)
[2020-11-27 06:07] LABS: ALT/SGPT 21 U/L (12-78); AST/SGOT 25 U/L (15-37); Albumin 3.1 g/dL (3.4-5.0); Alkaline Phosphatase 54 U/L (45-117); BUN Blood Urea Nitrogen 2 mg/dL (7-18); Bicarbonate 26 mmol/L (21-32); Bilirubin Total 3.8 mg/dL (0.2-1.0); Glucose Level 82 mg/dL (74-106); Potassium 3.5 mmol/L (3.5-5.1); Protein, Total 5.8 g/dL (6.4-8.2); Sodium Level 144 mmol/L (136-145)
[2020-11-27] MEDS: CEFTRIAXONE/SWI 1gm 1 GM/10 ML SYR IVP SCH (08:36)
[2020-11-27] MEDS: APIXABAN 2.5 MG TABLET PO SCH ×2 (08:37→20:29)
[2020-11-27] MEDS ORDERED: POTASSIUM CL SA 10 MEQ TAB PO ONE (09:00)
[2020-11-27] MEDS: VANCOMYCIN 1.25 GM in NA CHLORIDE 0.9% 250 ML IVPB SCH (10:07)
[2020-11-27] MEDS: DIPHENHYDRAMINE 50 MG/ML VIAL IV PRN (12:15)
--- NOTE | 2020-11-27 14:20 | P.PN ---
Subjective Date of Service: 11/27/20 Chief Complaint: vaso-occlusive crisis Patient states she is feeling better. Hemoglobin dropped to 6.3. Leukocytosis is improving. Bilirubin is not trending down. No fever. . Physical Examination - Vital Signs Temperature: 98.0 F Blood Pressure: 89/45 Pulse: 65 Respirations: 18 Pulse Ox (%): 92 - Physical Exam General: Alert, In no apparent distress, Oriented x3 HEENT: Mucous membr. moist/pink Neck: JVD not distended Respiratory: Clear to auscultation bilaterally, Normal air movement Cardiovascular: Regular rate/rhythm, Normal S1 S2 Gastrointestinal: Normal bowel sounds, Soft and benign, Non-distended, No tenderness Musculoskeletal: No swelling, No tenderness Integumentary: No rashes, No erythema Neurological: Normal strength at 5/5 x4 extr Assessment And Plan - Current Problems (Diagnosis) (1) Anemia, sickle cell with crisis Current Visit: No Status: Acute (2) Sickle cell pain crisis Current Visit: No Status: Acute (3) Hemolytic anemia Current Visit: No Status: Acute Qualifiers: Hemolytic anemia type: hereditary hemolytic anemia, other Qualified Code(s): D58.8 - Other specified hereditary hemolytic anemias (4) Gram-positive bacteremia Current Visit: Yes Status: Acute - Plan Continue supportive measures with aggressive IV hydration. Transfuse 1 unit PRBC. Pain management as needed. Blood cultures growing coagulase negative Staph. IV vancomycin and Rocephin. Awaiting repeat blood cultur result. Monitor CBC, blood chemistry and LFT.
[2020-11-27] MEDS: VANCOMYCIN 1.5 GM in NA CHLORIDE 0.9% 500 ML IVPB SCH (22:54)
[2020-11-27 23:51] LABS: Hematocrit 22.7 % (36.0-45.0)
[2020-11-28] MEDS: HYDROMORPHONE HCL 1 MG/ML INJ IV PRN ×6 (00:48→21:09)
[2020-11-28] MEDS: PROMETHAZINE INJ 25 MG/ML AMP IV PRN ×6 (00:48→21:09)
[2020-11-28] MEDS: DIPHENHYDRAMINE 50 MG/ML VIAL IV PRN ×3 (01:35→19:34)
[2020-11-28] MEDS: NA CHLORIDE 0.9% 1,000 ML IV SCH ×3 (04:50→17:39)
[2020-11-28 05:30] LABS: Basophils % 0.7 % (0-1.3); Hematocrit 22.7 % (36.0-45.0); Lymphocytes % 32.5 % (15.3-44.8); MPV 9.2 fL (7.6-11.3); RBC Red Blood Cell Count 2.32 M/uL (3.86-4.86)
[2020-11-28 05:48] LABS: ALT/SGPT 31 U/L (12-78); AST/SGOT 36 U/L (15-37); Albumin 3.3 g/dL (3.4-5.0); Alkaline Phosphatase 62 U/L (45-117); BUN Blood Urea Nitrogen 5 mg/dL (7-18); Bicarbonate 27 mmol/L (21-32); Bilirubin Total 2.9 mg/dL (0.2-1.0); Glucose Level 110 mg/dL (74-106); Potassium 3.3 mmol/L (3.5-5.1); Sodium Level 144 mmol/L (136-145)
[2020-11-28] MEDS: APIXABAN 2.5 MG TABLET PO SCH ×2 (08:55→20:40)
[2020-11-28] MEDS: CEFTRIAXONE/SWI 1gm 1 GM/10 ML SYR IVP SCH (08:55)
[2020-11-28] MEDS: FOLIC ACID 1 MG TABLET PO SCH (08:55)
[2020-11-28] MEDS ORDERED: POTASSIUM 25 MEQ EFFERV TAB PO ONE (09:00)
[2020-11-28] MEDS ORDERED: POTASSIUM CL SA 10 MEQ TAB PO ONE ×2 (09:00→17:00)
[2020-11-28] MEDS ORDERED: VITAMIN D 1000 UNIT TAB PO SCH (09:00)
[2020-11-28] MEDS: VANCOMYCIN 1.5 GM in NA CHLORIDE 0.9% 500 ML IVPB SCH ×2 (12:28→21:14)
--- NOTE | 2020-11-28 14:13 | P.PN ---
Subjective Date of Service: 11/28/20 Chief Complaint: vaso-occlusive crisis Patient feels she is improving. Status post 1 unit PRBC transfusion. Posttransfusion hemoglobin up to 7.7. Leukocytosis is improving. Bilirubin is trending down. No fever. . Physical Examination - Vital Signs Temperature: 97.9 F Blood Pressure: 109/58 Pulse: 62 Respirations: 18 Pulse Ox (%): 98 - Physical Exam General: Alert, In no apparent distress HEENT: Mucous membr. moist/pink Neck: Supple, JVD not distended Respiratory: Clear to auscultation bilaterally, Normal air movement, Diminished Cardiovascular: No edema, Regular rate/rhythm, Normal S1 S2 Gastrointestinal: Normal bowel sounds, Soft and benign, Non-distended Musculoskeletal: No swelling, No tenderness Integumentary: No rashes, No erythema Neurological: Normal strength at 5/5 x4 extr Assessment And Plan - Current Problems (Diagnosis) (1) Anemia, sickle cell with crisis Current Visit: No Status: Acute (2) Sickle cell pain crisis Current Visit: No Status: Acute (3) Hemolytic anemia Current Visit: No Status: Acute Qualifiers: Hemolytic anemia type: hereditary hemolytic anemia, other Qualified Code(s): D58.8 - Other specified hereditary hemolytic anemias (4) Gram-positive bacteremia Current Visit: Yes Status: Acute - Plan Continue supportive measures with aggressive IV hydration. Transfuse 1 unit PRBC. Posttransfusion hemoglobin up to 7 Pain management as needed. Blood cultures growing coagulase negative Staph. IV vancomycin and Rocephin. Awaiting repeat blood culture result. Monitor CBC, blood chemistry and LFT.
[2020-11-29] MEDS: PROMETHAZINE INJ 25 MG/ML AMP IV PRN ×6 (01:10→21:32)
[2020-11-29] MEDS: HYDROMORPHONE HCL 1 MG/ML INJ IV PRN ×6 (01:12→21:32)
[2020-11-29] MEDS: DIPHENHYDRAMINE 50 MG/ML VIAL IV PRN ×3 (02:21→18:46)
[2020-11-29] MEDS: NA CHLORIDE 0.9% 1,000 ML IV SCH ×3 (02:25→12:35)
[2020-11-29 06:19] LABS: Absolute Lymphocytes (CBC) 4.9 K/uL (0.7-4.9); BUN Blood Urea Nitrogen 6 mg/dL (7-18); Basophils % 1.2 % (0-1.3); Bicarbonate 28 mmol/L (21-32); Glucose Level 84 mg/dL (74-106); Hematocrit 22.1 % (36.0-45.0); Lymphocytes % 28.6 % (15.3-44.8); MPV 9.6 fL (7.6-11.3); Potassium 3.6 mmol/L (3.5-5.1); RBC Red Blood Cell Count 2.27 M/uL (3.86-4.86); Sodium Level 144 mmol/L (136-145)
--- NOTE | 2020-11-29 07:58 | P.PN ---
Subjective Date of Service: 11/29/20 Chief Complaint: vaso-occlusive crisis Subjective: No new changes (feels about the same, a little better. pain medication helps. no new complaints.) Physical Examination - Vital Signs Temperature: 98.2 F Blood Pressure: 126/67 Pulse: 50 Respirations: 16 Pulse Ox (%): 98 Assessment & Plan Physician Review Additional Text: Physical Exam General: Alert, appears uncomfortable HEENT: Mucous membr. moist/pink Respiratory: Clear to auscultation bilaterally, Normal air movement, Diminished Cardiovascular: No edema, Regular rate/rhythm, Normal S1 S2 Gastrointestinal: soft, nontender, nondistended Musculoskeletal: No swelling, No tenderness Integumentary: No rashes, No erythema Problem List Anemia, sickle cell pain with crisis Hemolytic anemia, sickle cell Gram-positive bacteremia -continue supportive measures - IVF hydration -s/p 1uPRBC, maintain hgb >7.0 -pain management PRN -blood cx: staph epi, resistant / intermediate resistant to vanc/rocephin that patient is receiving -discussed with ID, given immuno-compromised due to sickle cell, recommends holding antibiotics and observing for now -repeat blood culture pending Dispo: anticipate dc home in ~ 2 days Time Spent Managing Pts Care (In Minutes): 40
[2020-11-29] MEDS ORDERED: POTASSIUM CL SA 10 MEQ TAB PO ONE (09:00)
[2020-11-29] MEDS: FOLIC ACID 1 MG TABLET PO SCH (09:27)
[2020-11-29] MEDS: CEFTRIAXONE/SWI 1gm 1 GM/10 ML SYR IVP SCH (09:27)
[2020-11-29] MEDS: APIXABAN 2.5 MG TABLET PO SCH ×2 (09:27→20:25)
[2020-11-29] MEDS: VANCOMYCIN 1.5 GM in NA CHLORIDE 0.9% 500 ML IVPB SCH (10:06)
--- NOTE | 2020-11-29 11:18 | P.CNS ---
Date of Consult: 11/29/20 Chief Complaint: vaso-occlusive crisis History of Present Illness: Stew is a 30-year-old female with a past medical history of sickle cell anemia who presented to the emergency department with nausea vomiting and pain crisis. Patient states she had pain throughout her whole body. WBC elevated on admission, afebrile. Blood cultures taken grew Staph epi and both anaerobic and anaerobic bottles. Repeat code blood cultures obtained. Patient empirically started on vancomycin and Rocephin. Antibiotics had been discontinued, patient remains afebrile. Continue to monitor closely. Patient currently denies nausea, vomiting, diarrhea, shortness breath, chest pain. Allergies ondansetron HCl [From Zofran] Allergy (Mild, Verified 08/02/12 16:51) Nausea/Vomiting Home Medications: Folic Acid [Folic Acid*] 1 mg PO DAILY 08/01/12 Apixaban [Eliquis *] 1 tab PO BID 08/12/18 Promethazine Tab [Phenergan*] 25 mg PO Q4H PRN #30 tab 11/15/19 Hydromorphone HCl [Dilaudid] 8 mg PO TID #40 tablet 09/16/20 ALPRAZolam [Xanax*] 1 mg PO BIDP PRN 09/30/20 Cholecalciferol (Vitamin D3) [Vitamin D 1000 Iu Tab*] 1,000 unit PO EVERY 7TH DAY 09/30/20 - Past Medical/Surgical History Diabetic: No -: sickle cell -: port-a-cath placement - Family History Mother Medical History: Other (see notes) Notes: sickle cell trait Father Medical History: Other (see notes) Notes: sickle cell trait - Social History Smoking Status: Unknown if ever smoked Alcohol use: Yes CD- Drugs: Yes Caffeine use: Yes Place of Residence: Home Review of Systems 10-point ROS is otherwise unremarkable Physical Examination Temp Pulse Resp BP Pulse Ox 97.3 F 56 18 108/67 98 11/29/20 08:00 11/29/20 08:00 11/29/20 09:57 11/29/20 08:00 11/29/20 09:57 General: Alert, In no apparent distress, Oriented x3 HEENT: Atraumatic, Normocephalic Neck: Supple, JVD not distended Respiratory: Clear to auscultation bilaterally, Normal air movement Cardiovascular: Normal pulses Capillary refill: <2 Seconds Gastrointestinal: Normal bowel sounds, Soft and benign Musculoskeletal: No clubbing, No swelling Conclusions/Impression: Assessment: -positive blood cultures likely contamination -sickle cell crisis Plan: -blood cultures taken on 11/25 grew Staph epidermidis and anaerobic and anaerobic bottles. Repeat cultures taken on 11/28 are pending. UA negative. Patient remains afebrile, continue to monitor. No antibiotics needed at this time. -medical management per primary team continue monitor CBC and BMP -continue monitor for signs infection Plan of care discussed with Dr. Jurado Thank you for consultation.
[2020-11-29] MEDS ORDERED: LINEZOLID 600 MG IVPB 600 MG/300 ML BAG IV SCH (21:00)
[2020-11-30] MEDS: NA CHLORIDE 0.9% 1,000 ML IV SCH ×3 (00:48→21:16)
[2020-11-30 05:23] LABS: ALT/SGPT 50 U/L (12-78); AST/SGOT 34 U/L (15-37); Albumin 3.3 g/dL (3.4-5.0); Alkaline Phosphatase 73 U/L (45-117); BUN Blood Urea Nitrogen 5 mg/dL (7-18); Bicarbonate 30 mmol/L (21-32); Bilirubin Total 2.1 mg/dL (0.2-1.0); Glucose Level 88 mg/dL (74-106); Magnesium 1.6 mg/dL (1.8-2.4); Potassium 3.6 mmol/L (3.5-5.1); Protein, Total 6.1 g/dL (6.4-8.2); Sodium Level 143 mmol/L (136-145)
[2020-11-30] MEDS: PROMETHAZINE INJ 25 MG/ML AMP IV PRN ×5 (05:37→21:52)
[2020-11-30] MEDS: HYDROMORPHONE HCL 1 MG/ML INJ IV PRN ×5 (05:37→21:52)
[2020-11-30 06:21] LABS: Absolute Lymphocytes (CBC) 3.5 K/uL (0.7-4.9); Basophils % 1.4 % (0-1.3); Hematocrit 21.7 % (36.0-45.0); MPV 8.7 fL (7.6-11.3); RBC Red Blood Cell Count 2.22 M/uL (3.86-4.86)
[2020-11-30] MEDS: APIXABAN 2.5 MG TABLET PO SCH ×2 (08:52→21:15)
[2020-11-30] MEDS: FOLIC ACID 1 MG TABLET PO SCH (08:52)
[2020-11-30] MEDS ORDERED: POTASSIUM CL SA 10 MEQ TAB PO ONE (09:00)
[2020-11-30] MEDS ORDERED: MAGNESIUM SULFATE 1 gm IVPB 1 GM/100 ML BAG IV ONE (09:00)
--- NOTE | 2020-11-30 09:30 | P.PN ---
Subjective Date of Service: 11/30/20 Chief Complaint: vaso-occlusive crisis Patient seen examined at bedside, blood cultures show no growth at 24 hr, Continue to monitor. Review of Systems 10-point ROS is otherwise unremarkable Physical Examination - Vital Signs Temperature: 98.5 F Blood Pressure: 100/48 Pulse: 69 Respirations: 17 Pulse Ox (%): 95 - Studies Laboratory Last Values WBC 25.10 K/uL (4.3-10.9) H* 11/24/20 17:50 RBC 2.20 M/uL (3.86-4.86) L 11/24/20 17:50 Hgb 7.2 g/dL (12.0-15.0) L 11/24/20 17:50 Hct 20.9 % (36.0-45.0) L* 11/24/20 17:50 MCV 95.0 fL (80-100) 11/24/20 17:50 MCH 32.7 pg (27.0-35.0) 11/24/20 17:50 MCHC 34.4 g/dL (32.0-36.0) 11/24/20 17:50 RDW 19.6 % (12.1-15.2) H 11/24/20 17:50 Plt Count 362 K/uL (152-406) 11/24/20 17:50 MPV 7.9 fL (7.6-11.3) 11/24/20 17:50 Neutrophils % 73.8 % (41.7-73.7) H 11/24/20 17:50 Lymphocytes % 11.4 % (15.3-44.8) L 11/24/20 17:50 Monocytes % 13.8 % (3.3-12.3) H 11/24/20 17:50 Eosinophils % 0.3 % (0-4.4) 11/24/20 17:50 Basophils % 0.7 % (0-1.3) 11/24/20 17:50 Absolute Neutrophils 18.6 K/uL (1.8-8.0) H 11/24/20 17:50 Segmented Neutrophils 79 % (40-80) 11/24/20 17:50 Absolute Lymphocytes 2.9 K/uL (0.7-4.9) 11/24/20 17:50 Lymphocytes 11 % (15-42) L 11/24/20 17:50 Monocytes 10 % (0-10) 11/24/20 17:50 Absolute Monocytes 3.5 K/uL (0.1-1.3) H 11/24/20 17:50 Absolute Eosinophils 0.1 K/uL (0-0.5) 11/24/20 17:50 Absolute Basophils 0.2 K/uL (0-0.5) 11/24/20 17:50 Platelet Estimate Adeq 11/24/20 17:50 Sickle Cells 1+ (NONE SEEN) H 11/24/20 17:50 Morphology Comment Noted (NOT SEEN) 11/24/20 17:50 Absolute Retic 0.23 M/uL (0.02-0.11) H 11/24/20 17:50 Percent Retic 10.52 % (0.4-2.05) H 11/24/20 17:50 Sodium 143 mmol/L (136-145) 11/24/20 17:50 Potassium 3.7 mmol/L (3.5-5.1) 11/24/20 17:50 Chloride 112 mmol/L (98-107) H 11/24/20 17:50 Carbon Dioxide 25 mmol/L (21-32) 11/24/20 17:50 BUN 6 mg/dL (7-18) L 11/24/20 17:50 Creatinine 0.42 mg/dL (0.55-1.3) L 11/24/20 17:50 Estimated GFR > 90 mL/min (=/>90) 11/24/20 17:50 Glucose 91 mg/dL (74-106) 11/24/20 17:50 Calcium 8.5 mg/dL (8.5-10.1) 11/24/20 17:50 Total Bilirubin 5.2 mg/dL (0.2-1.0) H* 11/24/20 17:50 AST 21 U/L (15-37) 11/24/20 17:50 ALT 21 U/L (12-78) 11/24/20 17:50 Alkaline Phosphatase 65 U/L (45-117) 11/24/20 17:50 Serum Total Protein 7.5 g/dL (6.4-8.2) 11/24/20 17:50 Albumin 4.1 g/dL (3.4-5.0) 11/24/20 17:50 Globulin 3.4 g/dL (2.3-3.5) 11/24/20 17:50 Albumin/Globulin Ratio 1.2 (1.1-1.8) 11/24/20 17:50 Urine RBC Cancelled 11/24/20 15:20 Urine WBC Cancelled 11/24/20 15:20 Ur Squamous Epith Cells Cancelled 11/24/20 15:20 Ur Urothelial Cells Cancelled 11/24/20 15:20 Calcium Oxalate Crystal Cancelled 11/24/20 15:20 Uric Acid Crystals Cancelled 11/24/20 15:20 Triple Phos Crystals Cancelled 11/24/20 15:20 Other Crystals Cancelled 11/24/20 15:20 Amorphous Sediment Cancelled 11/24/20 15:20 Glitter Cells Cancelled 11/24/20 15:20 Urine Bacteria Cancelled 11/24/20 15:20 Hyaline Casts Cancelled 11/24/20 15:20 Fine Granular Casts Cancelled 11/24/20 15:20 Coarse Granular Casts Cancelled 11/24/20 15:20 Waxy Casts Cancelled 11/24/20 15:20 RBC Casts Cancelled 11/24/20 15:20 WBC Casts Cancelled 11/24/20 15:20 Urine Mucus Cancelled 11/24/20 15:20 Urine Other Cancelled 11/24/20 15:20 Urine Trichomonas Cancelled 11/24/20 15:20 Urine Yeast Cancelled 11/24/20 15:20 Ur Yeast w Hyphae Cancelled 11/24/20 15:20 Urine Yeast (Budding) Cancelled 11/24/20 15:20 Urine Sperm Cancelled 11/24/20 15:20 Urine Culture Reflexed Cancelled 11/24/20 15:20 Urine Total Volume Cancelled 11/24/20 15:20 SARS-CoV-2 RNA (RT-PCR) Negative (NEGATIVE) 11/24/20 19:50 Assessment And Plan - Plan Physical Exam: General: Alert, In no apparent distress, Oriented x3 HEENT: Atraumatic, Normocephalic Neck: Supple, JVD not distended Respiratory: Clear to auscultation bilaterally, Normal air movement Cardiovascular: Normal pulses Capillary refill: <2 Seconds Gastrointestinal: Normal bowel sounds, Soft and benign Musculoskeletal: No clubbing, No swelling Conclusions/Impression: Assessment: -positive blood cultures likely contamination -sickle cell crisis Plan: -blood cultures taken on 11/25 grew Staph epidermidis and anaerobic and anaerobic bottles. Repeat cultures taken on 11/28: NG @ 24hr. UA negative. Patient remains afebrile, continue to monitor. No antibiotics needed at this time. -medical management per primary team continue monitor CBC and BMP -continue monitor for signs infection Plan of care discussed with Dr. Jurado Thank you for consultation. Physician Review Additional Text: Physical Exam General: Alert, appears uncomfortable HEENT: Mucous membr. moist/pink Respiratory: Clear to auscultation bilaterally, Normal air movement, Diminished Cardiovascular: No edema, Regular rate/rhythm, Normal S1 S2 Gastrointestinal: soft, nontender, nondistended Musculoskeletal: No swelling, No tenderness Integumentary: No rashes, No erythema Problem List Anemia, sickle cell pain with crisis Hemolytic anemia, sickle cell Gram-positive bacteremia -continue supportive measures - IVF hydration -s/p 1uPRBC, maintain hgb >7.0 -pain management PRN -blood cx: staph epi, resistant / intermediate resistant to vanc/rocephin that patient is receiving -discussed with ID, given immuno-compromised due to sickle cell, recommends holding antibiotics and observing for now -repeat blood culture pending Dispo: anticipate dc home in ~ 2 days
[2020-11-30] MEDS: DIPHENHYDRAMINE 50 MG/ML VIAL IV PRN ×2 (09:52→17:45)
--- NOTE | 2020-11-30 11:16 | P.PN ---
Subjective Date of Service: 11/30/20 Chief Complaint: vaso-occlusive crisis Subjective: Improving (slight improvement in pain, eating ok, ambulating in room. still occasionally up to 8-10 /10 pain) Review of Systems 10-point ROS is otherwise unremarkable Physical Examination - Vital Signs Temperature: 98.5 F Blood Pressure: 114/61 Pulse: 69 Respirations: 17 Pulse Ox (%): 95 Assessment & Plan Physician Review Additional Text: Physical Exam General: Alert, appears uncomfortable HEENT: Mucous membr. moist/pink Respiratory: Clear to auscultation bilaterally, Normal air movement, nonlabored on rom air Cardiovascular: No edema, Regular rate/rhythm, Normal S1 S2 Gastrointestinal: soft, nontender, nondistended Musculoskeletal: No swelling Integumentary: No rashes, No erythema Problem List Anemia, sickle cell pain with crisis Hemolytic anemia, sickle cell Gram-positive bacteremia -continue supportive measures - IVF hydration decreased on 11/29 -s/p 1uPRBC, maintain hgb >7.0 -pain management PRN -blood cx: staph epi, resistant / intermediate resistant to vanc/rocephin that patient is receiving -discussed with ID, recommends holding antibiotics and observing for now - remains afebrile, repeat blood cultures no growth x24 hours Dispo: anticipate dc home in ~ 2 days Time Spent Managing Pts Care (In Minutes): 35
[2020-11-30] MEDS: metroNIDAZOLE 500 MG TABLET PO SCH ×2 (16:49→21:15)
[2020-12-01] MEDS: HYDROMORPHONE HCL 1 MG/ML INJ IV PRN ×4 (01:46→18:49)
[2020-12-01] MEDS: DIPHENHYDRAMINE 50 MG/ML VIAL IV PRN ×4 (01:46→21:58)
[2020-12-01] MEDS: PROMETHAZINE INJ 25 MG/ML AMP IV PRN ×5 (01:47→21:50)
[2020-12-01] MEDS: NA CHLORIDE 0.9% 1,000 ML IV SCH ×2 (04:35→06:04)
[2020-12-01 06:30] LABS: Absolute Lymphocytes (CBC) 3.7 K/uL (0.7-4.9); Basophils % 1.4 % (0-1.3); Hematocrit 22.7 % (36.0-45.0); Lymphocytes % 22.1 % (15.3-44.8); MPV 9.7 fL (7.6-11.3); RBC Red Blood Cell Count 2.31 M/uL (3.86-4.86)
[2020-12-01 06:35] LABS: BUN Blood Urea Nitrogen 9 mg/dL (7-18); Bicarbonate 28 mmol/L (21-32); Glucose Level 88 mg/dL (74-106); Magnesium 1.9 mg/dL (1.8-2.4); Potassium 3.7 mmol/L (3.5-5.1); Sodium Level 142 mmol/L (136-145)
[2020-12-01] MEDS: FOLIC ACID 1 MG TABLET PO SCH (08:57)
[2020-12-01] MEDS: APIXABAN 2.5 MG TABLET PO SCH ×2 (08:57→21:50)
[2020-12-01] MEDS: metroNIDAZOLE 500 MG TABLET PO SCH ×2 (08:57→21:50)
[2020-12-01] MEDS ORDERED: POTASSIUM CL SA 10 MEQ TAB PO ONE (09:00)
--- NOTE | 2020-12-01 09:41 | P.PN ---
Subjective Date of Service: 12/01/20 Chief Complaint: vaso-occlusive crisis Patient seen examined at bedside, afebrile, leukocytosis down trending. Review of Systems 10-point ROS is otherwise unremarkable Physical Examination - Vital Signs Temperature: 97.6 F Blood Pressure: 103/62 Pulse: 56 Respirations: 15 Pulse Ox (%): 96 - Studies Laboratory Last Values WBC 25.10 K/uL (4.3-10.9) H* 11/24/20 17:50 RBC 2.20 M/uL (3.86-4.86) L 11/24/20 17:50 Hgb 7.2 g/dL (12.0-15.0) L 11/24/20 17:50 Hct 20.9 % (36.0-45.0) L* 11/24/20 17:50 MCV 95.0 fL (80-100) 11/24/20 17:50 MCH 32.7 pg (27.0-35.0) 11/24/20 17:50 MCHC 34.4 g/dL (32.0-36.0) 11/24/20 17:50 RDW 19.6 % (12.1-15.2) H 11/24/20 17:50 Plt Count 362 K/uL (152-406) 11/24/20 17:50 MPV 7.9 fL (7.6-11.3) 11/24/20 17:50 Neutrophils % 73.8 % (41.7-73.7) H 11/24/20 17:50 Lymphocytes % 11.4 % (15.3-44.8) L 11/24/20 17:50 Monocytes % 13.8 % (3.3-12.3) H 11/24/20 17:50 Eosinophils % 0.3 % (0-4.4) 11/24/20 17:50 Basophils % 0.7 % (0-1.3) 11/24/20 17:50 Absolute Neutrophils 18.6 K/uL (1.8-8.0) H 11/24/20 17:50 Segmented Neutrophils 79 % (40-80) 11/24/20 17:50 Absolute Lymphocytes 2.9 K/uL (0.7-4.9) 11/24/20 17:50 Lymphocytes 11 % (15-42) L 11/24/20 17:50 Monocytes 10 % (0-10) 11/24/20 17:50 Absolute Monocytes 3.5 K/uL (0.1-1.3) H 11/24/20 17:50 Absolute Eosinophils 0.1 K/uL (0-0.5) 11/24/20 17:50 Absolute Basophils 0.2 K/uL (0-0.5) 11/24/20 17:50 Platelet Estimate Adeq 11/24/20 17:50 Sickle Cells 1+ (NONE SEEN) H 11/24/20 17:50 Morphology Comment Noted (NOT SEEN) 11/24/20 17:50 Absolute Retic 0.23 M/uL (0.02-0.11) H 11/24/20 17:50 Percent Retic 10.52 % (0.4-2.05) H 11/24/20 17:50 Sodium 143 mmol/L (136-145) 11/24/20 17:50 Potassium 3.7 mmol/L (3.5-5.1) 11/24/20 17:50 Chloride 112 mmol/L (98-107) H 11/24/20 17:50 Carbon Dioxide 25 mmol/L (21-32) 11/24/20 17:50 BUN 6 mg/dL (7-18) L 11/24/20 17:50 Creatinine 0.42 mg/dL (0.55-1.3) L 11/24/20 17:50 Estimated GFR > 90 mL/min (=/>90) 11/24/20 17:50 Glucose 91 mg/dL (74-106) 11/24/20 17:50 Calcium 8.5 mg/dL (8.5-10.1) 11/24/20 17:50 Total Bilirubin 5.2 mg/dL (0.2-1.0) H* 11/24/20 17:50 AST 21 U/L (15-37) 11/24/20 17:50 ALT 21 U/L (12-78) 11/24/20 17:50 Alkaline Phosphatase 65 U/L (45-117) 11/24/20 17:50 Serum Total Protein 7.5 g/dL (6.4-8.2) 11/24/20 17:50 Albumin 4.1 g/dL (3.4-5.0) 11/24/20 17:50 Globulin 3.4 g/dL (2.3-3.5) 11/24/20 17:50 Albumin/Globulin Ratio 1.2 (1.1-1.8) 11/24/20 17:50 Urine RBC Cancelled 11/24/20 15:20 Urine WBC Cancelled 11/24/20 15:20 Ur Squamous Epith Cells Cancelled 11/24/20 15:20 Ur Urothelial Cells Cancelled 11/24/20 15:20 Calcium Oxalate Crystal Cancelled 11/24/20 15:20 Uric Acid Crystals Cancelled 11/24/20 15:20 Triple Phos Crystals Cancelled 11/24/20 15:20 Other Crystals Cancelled 11/24/20 15:20 Amorphous Sediment Cancelled 11/24/20 15:20 Glitter Cells Cancelled 11/24/20 15:20 Urine Bacteria Cancelled 11/24/20 15:20 Hyaline Casts Cancelled 11/24/20 15:20 Fine Granular Casts Cancelled 11/24/20 15:20 Coarse Granular Casts Cancelled 11/24/20 15:20 Waxy Casts Cancelled 11/24/20 15:20 RBC Casts Cancelled 11/24/20 15:20 WBC Casts Cancelled 11/24/20 15:20 Urine Mucus Cancelled 11/24/20 15:20 Urine Other Cancelled 11/24/20 15:20 Urine Trichomonas Cancelled 11/24/20 15:20 Urine Yeast Cancelled 11/24/20 15:20 Ur Yeast w Hyphae Cancelled 11/24/20 15:20 Urine Yeast (Budding) Cancelled 11/24/20 15:20 Urine Sperm Cancelled 11/24/20 15:20 Urine Culture Reflexed Cancelled 11/24/20 15:20 Urine Total Volume Cancelled 11/24/20 15:20 SARS-CoV-2 RNA (RT-PCR) Negative (NEGATIVE) 11/24/20 19:50 Assessment And Plan - Plan Physical Exam: General: Alert, In no apparent distress, Oriented x3 HEENT: Atraumatic, Normocephalic Neck: Supple, JVD not distended Respiratory: Clear to auscultation bilaterally, Normal air movement Cardiovascular: Normal pulses Capillary refill: <2 Seconds Gastrointestinal: Normal bowel sounds, Soft and benign Musculoskeletal: No clubbing, No swelling Conclusions/Impression: Assessment: -positive blood cultures likely contamination -sickle cell crisis Plan: -blood cultures taken on 11/25 grew Staph epidermidis and anaerobic and anaerobic bottles. Repeat cultures taken on 11/28: NGTD. UA negative. Patient remains afebrile, continue to monitor. No antibiotics needed at this time. -medical management per primary team continue monitor CBC and BMP -continue monitor for signs infection Plan of care discussed with Dr. Jurado Thank you for consultation.
[2020-12-01] MEDS ORDERED: HYDROMORPHONE HCL 1 MG/ML INJ IV PRN (13:31)
--- NOTE | 2020-12-01 13:34 | P.PN ---
Subjective Date of Service: 12/01/20 Chief Complaint: vaso-occlusive crisis Subjective: Improving (reports feels slightly better, PO pain medication doesn't seem to help much, but states dilaudid helps. states she has been eating/ambulating. no nausea/vomiting, no new symptoms) Review of Systems 10-point ROS is otherwise unremarkable Physical Examination - Vital Signs Temperature: 97.0 F Blood Pressure: 109/51 Pulse: 63 Respirations: 16 Pulse Ox (%): 94 Assessment & Plan Physician Review Additional Text: Physical Exam General: Alert, NAD HEENT: Mucous membr. moist/pink Respiratory: Clear to auscultation bilaterally, Normal air movement, nonlabored on rom air Cardiovascular: No edema, Regular rate/rhythm, Normal S1 S2 Gastrointestinal: soft, nontender, nondistended Musculoskeletal: No swelling Integumentary: No rashes, No erythema Problem List Anemia, sickle cell pain with crisis Hemolytic anemia, sickle cell Gram-positive bacteremia -continue supportive measures -dc IVF -s/p 1uPRBC, maintain hgb >7.0 -pain management PRN - will decrease frequency of dilaudid -blood cx: staph epi, resistant / intermediate resistant to vanc/rocephin that patient was receiving -discussed with ID, recommends holding antibiotics and observing -remains afebrile, repeat blood cultures no growth -continue to hold antibiotics -review of EMR reveals urine + trichomonas on admission, patient denies any symptoms, flagyl started 11/30 Dispo: anticipate dc home in ~ 1-2 days Time Spent Managing Pts Care (In Minutes): 30
[2020-12-01] MEDS: HYDROMORPHONE ORAL 4 MG TAB PO PRN ×2 (15:46→23:26)
[2020-12-02] MEDS: HYDROMORPHONE HCL 1 MG/ML INJ IV PRN ×2 (02:58→10:59)
[2020-12-02] MEDS: PROMETHAZINE INJ 25 MG/ML AMP IV PRN ×2 (05:51→10:58)
[2020-12-02] MEDS: HYDROMORPHONE ORAL 4 MG TAB PO PRN (05:51)
[2020-12-02] MEDS: DIPHENHYDRAMINE 50 MG/ML VIAL IV PRN (05:57)
[2020-12-02 06:24] LABS: Hematocrit 23.7 % (36.0-45.0); MPV 9.3 fL (7.6-11.3); RBC Red Blood Cell Count 2.42 M/uL (3.86-4.86)
[2020-12-02 06:47] LABS: BUN Blood Urea Nitrogen 10 mg/dL (7-18); Bicarbonate 27 mmol/L (21-32); Glucose Level 106 mg/dL (74-106); Magnesium 1.8 mg/dL (1.8-2.4); Potassium 3.5 mmol/L (3.5-5.1); Sodium Level 141 mmol/L (136-145)
[2020-12-02] MEDS ORDERED: MAGNESIUM SULFATE 1 gm IVPB 1 GM/100 ML BAG IV ONE (09:00)
[2020-12-02] MEDS ORDERED: POTASSIUM CL SA 10 MEQ TAB PO ONE (09:00)
[2020-12-02] MEDS: FOLIC ACID 1 MG TABLET PO SCH (10:21)
[2020-12-02] MEDS: metroNIDAZOLE 500 MG TABLET PO SCH (10:21)
[2020-12-02] MEDS: APIXABAN 2.5 MG TABLET PO SCH (10:22)
--- NOTE | 2020-12-02 11:00 | P.PN ---
Subjective Date of Service: 12/02/20 Chief Complaint: vaso-occlusive crisis Patient seen examined at bedside, no acute complaints. States pain is improving. Review of Systems 10-point ROS is otherwise unremarkable Physical Examination - Vital Signs Temperature: 98.0 F Blood Pressure: 107/62 Pulse: 56 Respirations: 15 Pulse Ox (%): 97 - Studies Laboratory Last Values WBC 25.10 K/uL (4.3-10.9) H* 11/24/20 17:50 RBC 2.20 M/uL (3.86-4.86) L 11/24/20 17:50 Hgb 7.2 g/dL (12.0-15.0) L 11/24/20 17:50 Hct 20.9 % (36.0-45.0) L* 11/24/20 17:50 MCV 95.0 fL (80-100) 11/24/20 17:50 MCH 32.7 pg (27.0-35.0) 11/24/20 17:50 MCHC 34.4 g/dL (32.0-36.0) 11/24/20 17:50 RDW 19.6 % (12.1-15.2) H 11/24/20 17:50 Plt Count 362 K/uL (152-406) 11/24/20 17:50 MPV 7.9 fL (7.6-11.3) 11/24/20 17:50 Neutrophils % 73.8 % (41.7-73.7) H 11/24/20 17:50 Lymphocytes % 11.4 % (15.3-44.8) L 11/24/20 17:50 Monocytes % 13.8 % (3.3-12.3) H 11/24/20 17:50 Eosinophils % 0.3 % (0-4.4) 11/24/20 17:50 Basophils % 0.7 % (0-1.3) 11/24/20 17:50 Absolute Neutrophils 18.6 K/uL (1.8-8.0) H 11/24/20 17:50 Segmented Neutrophils 79 % (40-80) 11/24/20 17:50 Absolute Lymphocytes 2.9 K/uL (0.7-4.9) 11/24/20 17:50 Lymphocytes 11 % (15-42) L 11/24/20 17:50 Monocytes 10 % (0-10) 11/24/20 17:50 Absolute Monocytes 3.5 K/uL (0.1-1.3) H 11/24/20 17:50 Absolute Eosinophils 0.1 K/uL (0-0.5) 11/24/20 17:50 Absolute Basophils 0.2 K/uL (0-0.5) 11/24/20 17:50 Platelet Estimate Adeq 11/24/20 17:50 Sickle Cells 1+ (NONE SEEN) H 11/24/20 17:50 Morphology Comment Noted (NOT SEEN) 11/24/20 17:50 Absolute Retic 0.23 M/uL (0.02-0.11) H 11/24/20 17:50 Percent Retic 10.52 % (0.4-2.05) H 11/24/20 17:50 Sodium 143 mmol/L (136-145) 11/24/20 17:50 Potassium 3.7 mmol/L (3.5-5.1) 11/24/20 17:50 Chloride 112 mmol/L (98-107) H 11/24/20 17:50 Carbon Dioxide 25 mmol/L (21-32) 11/24/20 17:50 BUN 6 mg/dL (7-18) L 11/24/20 17:50 Creatinine 0.42 mg/dL (0.55-1.3) L 11/24/20 17:50 Estimated GFR > 90 mL/min (=/>90) 11/24/20 17:50 Glucose 91 mg/dL (74-106) 11/24/20 17:50 Calcium 8.5 mg/dL (8.5-10.1) 11/24/20 17:50 Total Bilirubin 5.2 mg/dL (0.2-1.0) H* 11/24/20 17:50 AST 21 U/L (15-37) 11/24/20 17:50 ALT 21 U/L (12-78) 11/24/20 17:50 Alkaline Phosphatase 65 U/L (45-117) 11/24/20 17:50 Serum Total Protein 7.5 g/dL (6.4-8.2) 11/24/20 17:50 Albumin 4.1 g/dL (3.4-5.0) 11/24/20 17:50 Globulin 3.4 g/dL (2.3-3.5) 11/24/20 17:50 Albumin/Globulin Ratio 1.2 (1.1-1.8) 11/24/20 17:50 Urine RBC Cancelled 11/24/20 15:20 Urine WBC Cancelled 11/24/20 15:20 Ur Squamous Epith Cells Cancelled 11/24/20 15:20 Ur Urothelial Cells Cancelled 11/24/20 15:20 Calcium Oxalate Crystal Cancelled 11/24/20 15:20 Uric Acid Crystals Cancelled 11/24/20 15:20 Triple Phos Crystals Cancelled 11/24/20 15:20 Other Crystals Cancelled 11/24/20 15:20 Amorphous Sediment Cancelled 11/24/20 15:20 Glitter Cells Cancelled 11/24/20 15:20 Urine Bacteria Cancelled 11/24/20 15:20 Hyaline Casts Cancelled 11/24/20 15:20 Fine Granular Casts Cancelled 11/24/20 15:20 Coarse Granular Casts Cancelled 11/24/20 15:20 Waxy Casts Cancelled 11/24/20 15:20 RBC Casts Cancelled 11/24/20 15:20 WBC Casts Cancelled 11/24/20 15:20 Urine Mucus Cancelled 11/24/20 15:20 Urine Other Cancelled 11/24/20 15:20 Urine Trichomonas Cancelled 11/24/20 15:20 Urine Yeast Cancelled 11/24/20 15:20 Ur Yeast w Hyphae Cancelled 11/24/20 15:20 Urine Yeast (Budding) Cancelled 11/24/20 15:20 Urine Sperm Cancelled 11/24/20 15:20 Urine Culture Reflexed Cancelled 11/24/20 15:20 Urine Total Volume Cancelled 11/24/20 15:20 SARS-CoV-2 RNA (RT-PCR) Negative (NEGATIVE) 11/24/20 19:50 Assessment And Plan - Plan Physical Exam: General: Alert, In no apparent distress, Oriented x3 HEENT: Atraumatic, Normocephalic Neck: Supple, JVD not distended Respiratory: Clear to auscultation bilaterally, Normal air movement Cardiovascular: Normal pulses Capillary refill: <2 Seconds Gastrointestinal: Normal bowel sounds, Soft and benign Musculoskeletal: No clubbing, No swelling Conclusions/Impression: Assessment: -positive blood cultures likely contamination -sickle cell crisis Plan: -blood cultures taken on 11/25 grew Staph epidermidis and anaerobic and anaerobic bottles. Repeat cultures taken on 11/28: NGTD. UA negative. Patient remains afebrile, continue to monitor. No antibiotics needed at this time. -medical management per primary team continue monitor CBC and BMP -continue monitor for signs infection Plan of care discussed with Dr. Jurado Thank you for consultation.
--- NOTE | 2020-12-02 12:09 | P.DS ---
Admission Date: 11/24/20 Discharge Date: 12/02/20 Disposition: ROUTINE DISCHARGE Discharge Condition: GOOD Reason for Admission: vaso-occlusive crisis Procedures: CXR (11/24): No acute cardiopulmonary process. No dense mass or consolidation. Interstitial markings are not substantially different from comparison. Heart size is prominent. Pulmonary vasculature within normal limits. Left-sided Port-A-Cath is in place. No measurable pleural effusion and no pneumothorax. No acute bony abnormality seen. No acute aortic findings suspected. Problem List Anemia, sickle cell pain with crisis Hemolytic anemia, sickle cell Gram-positive bacteremia, contaminant Trichomonos+ urine without symptoms Brief History of Present Illness: Ms. Ortega is a 30 yo F with sickle cell anemia here today for 1 day of intractable nausea and vomiting and whole body pain. She reports night sweats and chills. Denies abdominal pain. Found to be in sickle cell crisis. Admitted for further management. Hospital Course: Patient was admitted and treated for sickle cell crisis. She was empirically covered with antibiotics. She had eventual improvement of her symptoms. Her hospitalization was complicated by acute on chronic anemia, hemoglobin decreased to 6.3, requiring 1 unit PRBC transfusion. Patient's hemoglobin was stable after receiving the transfusion. Patient's pain medications were transitioned to an oral regimen, the patient was eventually discharged home to continue on. Initial blood culture was positive for coagulase-negative staph. Patient did not have any fever, but did have leukocytosis on admission. She had no skin lesions or cellulitis. Case was discussed with infectious disease. Repeat blood cultures were negative. ID recommended discontinuation of antibiotics as this finding is likely contamination. Patient was monitored off antibiotics and remained afebrile and continued to improve. On admission her urine was positive for trichomonas. Patient denied any symptoms. She was started on Flagyl for empiric treatment, and discharged to complete a total of 7 days. Vital Signs/Physical Exam: Temp Pulse Resp BP Pulse Ox 98.0 F 56 16 107/62 97 12/02/20 11:01 12/02/20 11:01 12/02/20 11:29 12/02/20 11:01 12/02/20 11:29 General: Alert, In no apparent distress, Oriented x3 HEENT: Mucous membr. moist/pink Respiratory: Clear to auscultation bilaterally, Normal air movement Cardiovascular: No edema, Regular rate/rhythm, Normal S1 S2 Gastrointestinal: Soft and benign, Non-distended, No tenderness Musculoskeletal: No erythema, No tenderness Integumentary: No rashes, No significant lesion Neurological: Normal speech, Normal strength at 5/5 x4 extr, Normal affect Laboratory Data at Discharge: WBC 18.00 K/uL (4.3-10.9) H 12/02/20 05:51 Hgb 8.3 g/dL (12.0-15.0) L 12/02/20 05:51 Hct 23.7 % (36.0-45.0) L 12/02/20 05:51 Plt Count 437 K/uL (152-406) H 12/02/20 05:51 Sodium 141 mmol/L (136-145) 12/02/20 05:51 Potassium 3.5 mmol/L (3.5-5.1) 12/02/20 05:51 BUN 10 mg/dL (7-18) 12/02/20 05:51 Creatinine 0.50 mg/dL (0.55-1.3) L 12/02/20 05:51 Glucose 106 mg/dL (74-106) 12/02/20 05:51 Phosphorus 2.6 mg/dL (2.5-4.9) 11/25/20 06:02 Magnesium 1.8 mg/dL (1.8-2.4) 12/02/20 05:51 Total Bilirubin 2.1 mg/dL (0.2-1.0) H 11/30/20 04:28 AST 34 U/L (15-37) 11/30/20 04:28 ALT 50 U/L (12-78) 11/30/20 04:28 Alkaline Phosphatase 73 U/L (45-117) 11/30/20 04:28 Home Medications: Folic Acid [Folic Acid*] 1 mg PO DAILY 08/01/12 Apixaban [Eliquis *] 1 tab PO BID 08/12/18 Promethazine Tab [Phenergan*] 25 mg PO Q4H PRN #30 tab 11/15/19 ALPRAZolam [Xanax*] 1 mg PO BIDP PRN 09/30/20 Cholecalciferol (Vitamin D3) [Vitamin D 1000 Iu Tab*] 1,000 unit PO EVERY 7TH DAY 09/30/20 Hydromorphone HCl [Dilaudid] 8 mg PO TID PRN 5 Days #15 tablet 12/02/20 metroNIDAZOLE [Flagyl*] 500 mg PO BID 5 Days #10 tablet 12/02/20 New Medications: Hydromorphone HCl [Dilaudid] 8 mg PO TID PRN 5 Days #15 tablet PRN Reason: Pain Scale 8-10 (Severe) metroNIDAZOLE [Flagyl*] 500 mg PO BID 5 Days #10 tablet Physician Discharge Instructions: PROBLEM: Sickle Cell Crisis GOAL: Clear understanding of disease process INSTRUCTIONS: Diet: Regular Activity: As tolerated Call 911 or go to the ED if your symptoms worsen. You were found to be in a sickle cell crisis. You were treated with IV fluid and pain medication. One of your blood cultures grew some bacteria that was likely a contamination and not a true infection. Infectious disease team was consulted and agreed. You were monitored off antibiotics and continued to improve. Your urine was positive for trichomonas, which you were asymptomatic from. You are discharged with 5 more days of flagyl to treat this. follow up with your PCP in 3-5 days Diet: Regular Activity: Ad gina Followup: Neil Benitez MD [Primary Care Provider] - Time spent managing pt's care (in minutes): 40
[2020-12-02 12:46] VITALS: O2SAT 98
[2020-12-02] MEDS ORDERED: HEPARIN 500 UNIT/5 ML SYR IV PRN (13:08)
[2020-12-02 13:58] VITALS: BP 110/56; TEMP 97.6
== END 2020-12-02 13:45 | disposition home or self-care (01) | DRG 812 ==
LOC: ER 14:22 → ERHOLD 20:08 → 2ND 11-25 13:58
PROVIDERS: ADMIT Internal Medicine; ATTEND Hospitalist
PROC: 30233N1 Transfusion of Nonautologous Red Blood Cells into Peripheral Vein, Percutaneous Approach (ICD-10-PCS; principal; 2020-11-27)
DX: D57.00 Hb-SS disease with crisis, unspecified (principal); R78.81 Bacteremia; D72.829 Elevated white blood cell count, unspecified; B95.7 Other staphylococcus as the cause of diseases classified elsewhere; B96.89 Other specified bacterial agents as the cause of diseases classified elsewhere; Z88.5 Allergy status to narcotic agent; Z88.8 Allergy status to other drugs, medicaments and biological substances; Z79.01 Long term (current) use of anticoagulants; Z79.899 Other long term (current) drug therapy; Z20.822 Contact with and (suspected) exposure to COVID-19
CPT/HCPCS: 36415; 71045; 80048; 80053; 80202; 81003; 81015; 83735; 84100; 84132; 85014; 85018; 85025; 85027; 85044; 86850; 86900; 86901; 87040; 87077; 87086; 87088; 87186; 87205; 87804; 93005; 94760; 96361; 96374; 96375; 99284; J0696; J1170; J1200; J1642; J2550; J3370; J3475; J7030; J7040; J7050; P9016; U0003

== ENCOUNTER 2020-12-15 05:18 | Emergency (ER) | payer OTHER ==
--- OUTSIDE RECORDS SUMMARY | 2020-12-15 05:22 | XMS REPORT | Continuity of Care Document ---
:1990 Author Organization [facility] t Address [address] [place] [address] Support Name Relationship Address Phone DENI Unavailable [id number] [facility] [phone] [address] [address] [facility] [place] [address] DENI Unavailable [id number] [facility] [phone] [address] [facility] [place] [address] JORDAN Unavailable [id number] [facility] [phone] [place] [address] JORDAN Unavailable [address] [facility] [phone] [place] [address] CLINTON DELEON MD E Admitting Provider [address] [facility] [address] [place] [address] JESSICA SIDDIQUI Primary Care Physician [address] [facility] [address] [place] [address] VIJAYA MULLEN MD A Emergency Provider [address] [facility] [place] [address] NAIMA MULLEN Attending Provider [address] [place] [address] JORDAN Next of Kin [address] [place] [address] IZZY MULLEN, E Emergency Provider [address] [facility] [address] [place] [address] PHYSICIAN Primary Care Physician Unavailable Unavailab chrissy GRISSOM MD, MD Emergency Provider [address] [phone] [place] [address] OTHER, NAME IN NOTES Primary Care Physician Unavailable Sylvie caity SHIN MD, MD Emergency Provider [address] [place] [address] ISABELLA MULLEN MD MORE Admitting Provider [address] [place] [address] FRANCIS Primary Care Physician [address] [facility] [place] [address] MD AMRITA A Emergency Provider [facility] [place] [address] [address] [place] [address] Care Team Providers Name Role Phone Shaikh [...] [facility] 00 [place] Pneumonia Pneumonia Disease Active [facility] 00 [place] 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[facility] anemia anemia 00:00: Medical 00 [place] 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[facility] crisis crisis 00:00: Medical 00 Center Allergies, Adverse Reactions, Alerts Allergy Allergy Status Severity Reaction(s) Onset Inactive Treating Comm ents Source Name Type Date Date Clinician Ondanset Drug Active Nausea And [facility] Hcl Intolera Vomiting 2-28 [facility] - (Pf) nce 00:00: Medical 00 [place] morphine DA Active [facility] 3[facility]11 [place] 00:00: d 00 [facility] TEGEDERM DA Active [place] [facility] 8-23 [place] 00:00: d 00 [facility] Family History Family Member Diagnosis Comments Start Date Stop Date Source Natural brother Unremarkable [facility] Natural father Seizures [facility] Natural father Sickle cell trait [facility] Natural mother Sickle cell trait [facility] Natural sister Unremarkable [facility] Social History Social Habit Start Date Stop Date Quantity Comments Source Sex Assigned At [facility] Tobacco use and 2018-08-02 2018-08-02 Never used [facility] - exposure 00:00:00 00:00:00 Medical Center Alcohol [...] Medica l Center cervix (procedure) [code = 393391282] Future Scheduled [address] [facility] - Test 00:00:00 (procedure) [code = Medical Center 47464892] Future Scheduled 1997-09-[address] [facility] [address] [...] [facility] 04:27:00 04:27:00 2018-07-20 2018-07-20 Emergency E [facility] [address] [facility] 10:30:00 10:30:00 Results Test Description Test Time Test Comments Results Result Comments Source SARS-COV2/RT-PCR ([facility]) 2019-11-14 17:47:00 Test Item Value Reference Range Interpretation Comme nts SARS-COV2/RT-PCR (test code = 5616136) Negative Not Detected, N egative SARS-COV-2 PERFORMING LAB (test code = 1224779) [facility] Negative results do not preclude SARS-CoV-2 infection [...] of the Act.Fact Sheet for Healthcare Pro viders:https://www.Realitycheck.[employer]cal [employer]/Documents/Xpert%20Xpress%20SARS%20CoV-2/Fact%20Sh eets/302-4452%86NFIJ-JRD-7%20HEALTHCARE%20PROVIDERS%20FACT%20SHEET.pdfFact Sheet for Healthcare Patients:https://www.Happy Kidz.[employer]/Documents/Xpert%20Xpress%20SARS%20CoV-2/Fact%20Sheets/3023801%20SARS-COV -2%20PATIENT%20FACT%20SHEET.pdfPerforming Laboratory:[place] [address], [place] [address]VPA W/PLT COUNT & AUTO DIFFERENTIAL 2018-08-10 08:25:00 [...] 3438) Received comment: User comments: Slide comments:RETICULOCYTE [id number] 08:06:00 Test Item Value Reference Range Interpretation Comments RETICULOCYTE COUNT PCT (BEAKER) (test 25.0 % 0.5-1.7 H code = 575) CBC W/PLT COUNT & AUTO [id number] 09:27:00 Test Item Value Reference Range Interpretation [...] 3438) Received comment: User comments: Slide comments:RETICULOCYTE [id number] 05:01:00 Test Item Value Reference Range Interpretation Comments RETICULOCYTE COUNT PCT (BEAKER) (test 21.6 % 0.5-1.7 H code = 575) CBC W/PLT COUNT & AUTO [id number] 15:17:00 Test Item Value Reference Range Interpretation [...] H (BEAKER) (test code = 413) RETICULOCYTE [id number] 08:44:00 Test Item Value Reference Range Interpretation Comments RETICULOCYTE COUNT PCT (BEAKER) (test 23.8 % 0.5-1.7 H code = 575) BLOOD [id number] 14:01:00 Test Item Value Reference Range Interpretation Comments CULTURE (BEAKER) (test No growth in 5 days code = 1095) BLOOD [id number] 12:01:00 Test Item Value Reference Range Interpretation Comments CULTURE (BEAKER) (test No growth in 5 days code = 1095) CBC W/PLT COUNT & AUTO [id number] 11:38:00 Test Item Value Reference Range Interpretation [...] 3438) Received comment: User comments: Slide comments:RETICULOCYTE [id number] 07:44:00 Test Item Value Reference Range Interpretation Comments RETICULOCYTE COUNT PCT (BEAKER) (test 27.0 % 0.5-1.7 H code = 575) RETICULOCYTE [id number] 07:19:00 Test Item Value Reference Range Interpretation Comments RETICULOCYTE COUNT PCT (BEAKER) (test 22.7 % 0.5-1.7 H code = 575) CBC W/PLT COUNT & AUTO [id number] 12:07:00 Test Item Value Reference Range Interpretation [...] 3438) Received comment: User comments: Slide comments:RETICULOCYTE [id number] 06:14:00 Test Item Value Reference Range Interpretation Comments RETICULOCYTE COUNT PCT (BEAKER) (test 21.9 % 0.5-1.7 H code = 575) [id number] 06:02:00 Test Item Value Reference Range Interpretation Comments PHOSPHORUS (BEAKER) (test code = 3.8 mg/dL 2.3-4.7 604) [id number] 06:02:00 Test Item Value Reference Range Interpretation Comments MAGNESIUM (BEAKER) (test code = 1.8 mg/dL 1.6-2.6 627) BASIC METABOLIC [id number] 06:02:00 Test Item Value Reference Range Interpretation [...] Specimen moderately ictericCBC W/PLT COUNT & AUTO [id number] 09:09:00 Test Item Value Reference Range Interpretation [...] = 3438) Received comment: User comments: Slide comments:[id number] 04:11:00 Test Item Value Reference Range Interpretation Comments PHOSPHORUS (BEAKER) (test code = 3.3 mg/dL 2.3-4.7 604) [id number] 04:11:00 Test Item Value Reference Range Interpretation Comments MAGNESIUM (BEAKER) (test code = 1.6 mg/dL 1.6-2.6 627) BASIC METABOLIC [id number] 04:11:00 Test Item Value Reference Range Interpretation [...] FOR DIALYSIS PATIEN TS. Specimen slightly ictericRETICULOCYTE [id number] 03:54:00 Test Item Value Reference Range Interpretation Comments RETICULOCYTE COUNT PCT (BEAKER) (test 20.4 % 0.5-1.7 H code = 575) CBC W/PLT COUNT & AUTO [id number] 18:30:00 Test Item Value Reference Range Interpretation [...] = 413) CBC W/PLT COUNT & AUTO [id number] 10:51:00 Test Item Value Reference Range Interpretation [...] 3438) Received comment: User comments: Slide comments:RETICULOCYTE [id number] 10:08:00 Test Item Value Reference Range Interpretation Comments RETICULOCYTE COUNT PCT (BEAKER) (test 14.4 % 0.5-1.7 H code = 575) CBC W/PLT COUNT & AUTO [id number] 09:30:00 Test Item Value Reference Range Interpretation [...] = 3438) Received comment: User comments: Slide comments:[id number] 03:32:00 Test Item Value Reference Range Interpretation Comments PHOSPHORUS (BEAKER) (test code = 3.5 mg/dL 2.3-4.7 604) [id number] 03:32:00 Test Item Value Reference Range Interpretation Comments MAGNESIUM (BEAKER) (test code = 1.8 mg/dL 1.6-2.6 627) BASIC METABOLIC [id number] 03:32:00 Test Item Value Reference Range Interpretation [...] ictericCT, CHEST WITH IV CONTRAST- PE TEST [id number] 14:01:00FINAL REPORT CT scan of the chest. [...] MDReport Verified Date/Time: 08/02/2018 14:01:29 Reading Location: [address] Reading Room URINALYSIS W/ REFLEX URINE [id number] 11:27:00 Test Item Value Reference Range Interpretation [...] 516) SOURCE(BEAKER) (test code = 2795) SCREEN, [id number] 11:15:00 Test Item Value Reference Range Interpretation Comments TEST URINE (BEAKER) (test Negative code = 583) RETICULOCYTE [id number] 04:43:00 Test Item Value Reference Range Interpretation Comments RETICULOCYTE COUNT PCT (BEAKER) (test 13.2 % 0.5-1.7 H code = 575) RAD, CHEST, 2 [id number] 03:54:00Reason for exam:->SICKLE CELL PAIN CRISISIs the [...] [place] Verified Date/Time: 08/02/2018 03:54:52Reading Location: [address] Reading Room CBC W/PLT COUNT & [...] (BEAKER) (test code = 417) COMPREHENSIVE METABOLIC [id number] 02:42:00 Test Item Value Reference Range Interpretation [...]
[2020-12-15] MEDS ORDERED: PROMETHAZINE INJ 25 MG/ML AMP ONE ×2 (06:44→09:29)
[2020-12-15] MEDS ORDERED: HYDROMORPHONE HCL 1 MG/ML INJ ONE ×2 (06:44→08:38)
[2020-12-15] MEDS ORDERED: KETOROLAC 30 MG/ML INJ ONE (06:44)
[2020-12-15 06:47] LABS: Absolute Lymphocytes (CBC) 5.9 K/uL (0.7-4.9); Basophils % 0.9 % (0-1.3); Lymphocytes % 34.6 % (15.3-44.8); MPV 8.5 fL (7.6-11.3); RBC Red Blood Cell Count 2.74 M/uL (3.86-4.86)
[2020-12-15 06:48] LABS: ALT/SGPT 53 U/L (12-78); AST/SGOT 39 U/L (15-37); Alkaline Phosphatase 91 U/L (45-117); BUN Blood Urea Nitrogen 8 mg/dL (7-18); Bicarbonate 26 mmol/L (21-32); Bilirubin Direct 0.5 mg/dL (0-0.2); Glucose Level 95 mg/dL (74-106); Potassium 3.8 mmol/L (3.5-5.1); Protein, Total 7.4 g/dL (6.4-8.2); Sodium Level 142 mmol/L (136-145)
[2020-12-15] MEDS ORDERED: DIPHENHYDRAMINE 50 MG/ML VIAL ONE (07:18)
[2020-12-15] MEDS ORDERED: NA CHLORIDE 0.9% 0 ML ONE (08:05)
[2020-12-15] MEDS ORDERED: NA CHLORIDE 0.9% 1,000 ML ONE (08:08)
--- NOTE | 2020-12-15 11:04 | EDPHYS ---
Physician Documentation [facility] Name: Gume Ortega Age: 30 yrs Sex: Female : 1990 Arrival Date: 12/15/2020 Time: 05:20 Bed Treatment Private MD: ED Physician Yrn Jacobsen HPI: 12/15 07:59 This 30 yrs old Black Female presents to ER via Wheelchair with complaints of Sickle jr8 Cell Crisis. 07:59 This is a 30-year-old female with a history of sickle cell disease that presented to [facility] the emergency room with acute diffuse pain throughout her body. Stated that she had her normal sickle cell infusion but could not give us the medication yesterday to help with her crisis but does not seem to be helping. Stated that she is having diffuse pain everywhere at this time. Denies shortness of breath or any other complaints.. Severity of symptoms: At their worst the symptoms were moderate in the emergency department the symptoms are unchanged. The patient has experienced similar episodes in the past, several times. The patient has been recently seen by a physician:. 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 - Social history:: Smoking status: Patient denies any tobacco usage or history of. Patient uses street drugs, marijuana, Patient/guardian denies using alcohol. ROS: 07:59 Eyes: Negative for injury, pain, redness, and discharge, ENT: Negative for injury, jr8 pain, and discharge, Neck: Negative for injury, pain, and swelling, Cardiovascular: Negative for chest pain, palpitations, and edema, Respiratory: Negative for shortness of breath, cough, wheezing, and pleuritic chest pain, Abdomen/GI: Negative for abdominal pain, nausea, vomiting, diarrhea, and constipation, Back: Negative for injury and pain, MS/Extremity: Negative for injury and deformity, Skin: Negative for injury, rash, and discoloration, Neuro: Negative for headache, weakness, numbness, tingling, and seizure. 07:59 Constitutional: Positive for Diffuse joint pain and myalgias. Exam: 07:59 Eyes: Pupils equal round and reactive to light, extra-ocular motions intact. Lids and jr8 lashes normal. Conjunctiva and sclera are non-icteric and not injected. Cornea within normal limits. Periorbital areas with no swelling, redness, or edema. ENT: Nares patent. No nasal discharge, no septal abnormalities noted. Tympanic membranes are normal and external auditory canals are clear. Oropharynx with no redness, swelling, or masses, exudates, or evidence of obstruction, uvula midline. Mucous membranes moist. Neck: Trachea midline, no thyromegaly or masses palpated, and no cervical lymphadenopathy. Supple, full range of motion without nuchal rigidity, or vertebral point tenderness. No Meningismus. Cardiovascular: Regular rate and rhythm with a normal S1 and S2. No gallops, murmurs, or rubs. Normal PMI, no JVD. No pulse deficits. Respiratory: Lungs have equal breath sounds bilaterally, clear to auscultation and percussion. No rales, rhonchi or wheezes noted. No increased work of breathing, no retractions or nasal flaring. Abdomen/GI: Soft, non-tender, with normal bowel sounds. No distension or tympany. No guarding or rebound. No evidence of tenderness throughout. Back: No spinal tenderness. No costovertebral tenderness. Full range of motion. Skin: Warm, dry with normal turgor. Normal color with no rashes, no lesions, and no evidence of cellulitis. MS/ Extremity: Pulses equal, no cyanosis. Neurovascular intact. Full, normal range of motion. Neuro: Awake and alert, GCS 15, oriented to person, place, time, and situation. Cranial nerves II-XII grossly intact. Motor strength 5/5 in all extremities. Sensory grossly intact. 07:59 Constitutional: The patient appears alert, awake, in obvious pain, uncomfortable. Vital Signs: 05:45 BP 120 / 42; Pulse 78; Resp 20 S; Temp 98.3(O); Pulse Ox 98% on R/A; Weight 69.4 kg bb (R); Height 5 ft. 2 in. (157.48 cm) (R); Pain 10/10; 06:30 BP 129 / 66; Pulse 76; Resp 16; Pulse Ox 99% on R/A; jb4 08:37 BP 104 / 65; Pulse 62; Resp 16; Pulse Ox 100% on R/A; ss 10:10 BP 89 / 47; Pulse 62; Resp 13; Pulse Ox 100% on Nebulizer Mask; Pain 6/10; ss 10:24 BP 93 / 45; Pulse 68; Resp 14; ss 11:02 BP 117 / 81; Pulse 71; Resp 15; Pulse Ox 97% on R/A; ss 05:45 Body Mass Index 27.98 (69.40 kg, 157.48 cm) bb MDM: 06:10 Patient medically screened. jr8 10:57 Data reviewed: vital signs, nurses notes, lab test result(s), and as a result, I will jr8 discharge patient. Data interpreted: Pulse oximetry: on room air is 100 %. Interpretation: normal. Counseling: I had a detailed discussion with the patient and/or guardian regarding: the historical points, exam findings, and any diagnostic results supporting the discharge/admit diagnosis, lab results, the need for outpatient follow up, a family practitioner, to return to the emergency department if symptoms worsen or persist or if there are any questions or concerns that arise at home. Response to treatment: the patient's symptoms have markedly improved after treatment. ED course: Patient's reticulocyte count within normal limits. Hemodynamically stable at this time. Pain well controlled at this time. No other concerning findings on labs. Will send patient home to follow-up with primary care and specialist.. 12/15 06:12 Order name: CBC with Diff; Complete Time: 07:18 12/15 06:12 Order name: Basic Metabolic Panel; Complete Time: 07:18 12/15 06:12 Order name: LFT's; Complete Time: 07:18 12/15 06:12 Order name: Retic Count; Complete Time: 07:18 12/15 06:12 Order name: IV; Complete Time: 06:34 Administered Medications: 06:15 Not Given (Physician Discretion): fentaNYL (PF) 50 mcg IVP once; RASS on ADMIN: jr8 Combtv4, Very Agttd3, Agttd2, Rstlss1, AlertClm0, Drwsy-1, Lt Sdtn-2, Mod Sdtn-3, Dp Sdtn-4, UnArsble-5 06:39 Drug: Promethazine 12.5 mg Route: IVP; Site: Port-a-cath; jb4 07:30 Follow up: Response: No adverse reaction; Nausea is decreased ss 06:42 Drug: Ketorolac 30 mg Route: IVP; Site: Port-a-cath; jb4 09:01 Follow up: Response: No adverse reaction; No change in condition ss 06:45 Drug: Dilaudid (HYDROmorphone) 1 mg Route: IVP; Site: Port-a-cath; jb4 07:30 Follow up: Response: No adverse reaction; No change in condition ss 06:54 Drug: Benadryl (diphenhydrAMINE) 25 mg Route: IVP; Site: Port-a-cath; bb 09:01 Follow up: Response: No adverse reaction ss 08:04 Drug: NS 0.9% 1000 ml Route: IV; Rate: 1000 ml; Site: Port-a-cath; ss 10:19 Follow up: IV Status: Completed infusion; IV Intake: 1000ml ss 08:20 Drug: Dilaudid (HYDROmorphone) 1 mg Route: IVP; Site: Port-a-cath; jb4 09:01 Follow up: Response: No adverse reaction; Pain is decreased ss 09:14 Drug: Phenergan (promethazine) 12.5 mg Route: IVP; Site: Port-a-cath; ss 09:30 Follow up: Response: No adverse reaction ss Disposition Summary: 12/15/20 11:02 Discharge Ordered Location: Home jr8 Problem: new jr8 Symptoms: have improved jr8 Condition: Stable jr8 Diagnosis - Sickle-cell thalassemia with crisis jr8 Followup: jr8 - With: Private Physician - When: 2 - 3 days - Reason: Recheck today's complaints, Continuance of care, Re-evaluation by your physician Discharge Instructions: - Discharge Summary Sheet jr8 - Sickle Cell Anemia, Adult jr8 Forms: - Medication Reconciliation Form jr8 - Thank You Letter jr8 - Antibiotic Education jr8 - Prescription Opioid Use jr8 Addendum: 12/16/2020 19:05 Co-signature as Attending Physician, Yrn caballero Signatures: Dispatcher [employer] EDYrn Gandhi MD MD pkl Ballard, Brenda, RN RN bb Radha Ram, RN RN ss Georges Benavidez PA PA jr8 Steve Villavicencio, RN RN jb4
--- NOTE | 2020-12-15 11:04 | ER ---
Nurse's Notes [facility] Name: Gume Ortega Age: 30 yrs Sex: Female : 1990 Arrival Date: 12/15/2020 Time: 05:20 Bed Treatment Private MD: Diagnosis: Sickle-cell thalassemia with crisis Presentation: 12/15 05:45 Chief complaint: Patient states: she is having a sickle cell pain crisis which started bb 2 days ago she had a treatment by her waste salvager yesterday but it is not helping pain is 10/10. Coronavirus screen: At this time, the client does not indicate any symptoms associated with coronavirus-19. Ebola Screen: No symptoms or risks identified at this time. Initial Sepsis Screen: Does the patient meet any 2 criteria? No. Patient's initial sepsis screen is negative. Does the patient have a suspected source of infection? No. Patient's initial sepsis screen is negative. Risk Assessment: Do you want to hurt yourself or someone else? Patient reports no desire to harm self or others. Onset of symptoms was December 12, 2020. 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 - Social history:: Smoking status: Patient denies any tobacco usage or history of. Patient uses street drugs, marijuana, Patient/guardian denies using alcohol. Screenin:00 Abuse screen: Denies threats or abuse. Nutritional screening: No deficits noted. jb4 Tuberculosis screening: No symptoms or risk factors identified. Fall Risk None identified. Assessment: 06:00 General: Appears in no apparent distress. uncomfortable, Behavior is calm, cooperative, jb4 appropriate for age. Pain: Complains of pain in Generalized body aches. Pain does not radiate. Pain currently is 10 out of 10 on a pain scale. Neuro: Level of Consciousness is awake, alert, obeys commands, Oriented to person, place, time, situation. Cardiovascular: Patient's skin is warm and dry. Respiratory: Airway is patent Respiratory effort is even, unlabored, Respiratory pattern is regular, symmetrical. GI: No signs and/or symptoms were reported involving the gastrointestinal system. : No signs and/or symptoms were reported regarding the genitourinary system. EENT: No signs and/or symptoms were reported regarding the EENT system. Derm: Skin is intact, Skin is dry, Skin is normal, Skin temperature is warm. Musculoskeletal: Circulation, motion, and sensation intact. Range of motion: intact in all extremities. 09:22 Reassessment: NRB \T\ 15 L placed on patient per verbal order from LAUREN Chaudhari to see if it will help improve patient even more. Will reevaluate in 15-20 minutes. 10:10 Reassessment: Pt is resting with eyes closed, lights off for comfort. Resting with ss blanket over her head. Awakens easily. Reports feeling better. pain has decreased to 6/10. Vital Signs: 05:45 BP 120 / 42; Pulse 78; Resp 20 S; Temp 98.3(O); Pulse Ox 98% on R/A; Weight 69.4 kg bb (R); Height 5 ft. 2 in. (157.48 cm) (R); Pain 10/10; 06:30 BP 129 / 66; Pulse 76; Resp 16; Pulse Ox 99% on R/A; jb4 08:37 BP 104 / 65; Pulse 62; Resp 16; Pulse Ox 100% on R/A; ss 10:10 BP 89 / 47; Pulse 62; Resp 13; Pulse Ox 100% on Nebulizer Mask; Pain 6/10; ss 10:24 BP 93 / 45; Pulse 68; Resp 14; ss 11:02 BP 117 / 81; Pulse 71; Resp 15; Pulse Ox 97% on R/A; ss 05:45 Body Mass Index 27.98 (69.40 kg, 157.48 cm) bb ED Course: 05:20 Patient arrived in ED. wm 05:47 Triage completed. bb 05:47 Arm band placed on Patient placed in an exam room, on a stretcher, on pulse oximetry. bb 05:50 Yrn Jacobsen MD is Attending Physician. pkl 06:00 Patient has correct armband on for positive identification. Bed in low position. Call jb4 light in reach. Side rails up X 1. Pulse ox on. NIBP on. 06:00 Accessed Port-a-Cath. using accessed w/ # 20 Peters needle, ,sterile technique, per [facility] protocol. Clean \T\ dry. Good blood return. Flushes easily. 06:10 Georges Benaviedz PA is PHCP. jr8 06:10 Yrn Jacobsen MD is Attending Physician. jr8 06:18 Steve Villavicencio, SHYAM is Primary Nurse. jb4 11:03 No provider procedures requiring assistance completed. ss 11:20 IV discontinued, intact, bleeding controlled, No redness/swelling at site. Pressure ss dressing applied. Administered Medications: 06:15 Not Given (Physician Discretion): fentaNYL (PF) 50 mcg IVP once; RASS on ADMIN: jr8 Combtv4, Very Agttd3, Agttd2, Rstlss1, AlertClm0, Drwsy-1, Lt Sdtn-2, Mod Sdtn-3, Dp Sdtn-4, UnArsble-5 06:39 Drug: Promethazine 12.5 mg Route: IVP; Site: Port-a-cath; [facility] 07:30 Follow up: Response: No adverse reaction; Nausea is decreased ss 06:42 Drug: Ketorolac 30 mg Route: IVP; Site: Port-a-cath; 4 09:01 Follow up: Response: No adverse reaction; No change in condition ss 06:45 Drug: Dilaudid (HYDROmorphone) 1 mg Route: IVP; Site: Port-a-cath; [facility] 07:30 Follow up: Response: No adverse reaction; No change in condition ss 06:54 Drug: Benadryl (diphenhydrAMINE) 25 mg Route: IVP; Site: Port-a-cath; 09:01 Follow up: Response: No adverse reaction ss 08:04 Drug: NS 0.9% 1000 ml Route: IV; Rate: 1000 ml; Site: Port-a-cath; 10:19 Follow up: IV Status: Completed infusion; IV Intake: 1000ml ss 08:20 Drug: Dilaudid (HYDROmorphone) 1 mg Route: IVP; Site: Port-a-cath; [facility] 09:01 Follow up: Response: No adverse reaction; Pain is decreased ss 09:14 Drug: Phenergan (promethazine) 12.5 mg Route: IVP; Site: Port-a-cath; 09:30 Follow up: Response: No adverse reaction ss Intake: 10:19 IV: 1000ml; Total: 1000ml. ss Outcome: 11:02 Discharge ordered by . christie 11:20 Discharged to home ambulatory. ss 11:20 Condition: improved 11:20 Discharge instructions given to patient, Instructed on discharge instructions, follow up and referral plans. Demonstrated understanding of instructions, follow-up care. 11:20 Patient left the ED. ss Signatures: Yrn Jacobsen MD MD pkl Ballard, Brenda, RN RN Radha Mcgee RN RN ss Georges Benavidez PA PA jr8 Steve Villavicencio RN RN jbMona Blum
[2020-12-15 11:27] VITALS: TEMP 98.3
[2020-12-15] MEDS ORDERED: HEPARIN 500 UNIT/5 ML SYR IV ONE (11:30)
[2020-12-15 11:35] VITALS: BP 117/81; O2SAT 97
== END 2020-12-15 11:20 | disposition home or self-care (01) ==
LOC: ER 05:18
DX: D57.418 Sickle-cell thalassemia, unspecified, with crisis with other specified complication (principal); Z88.2 Allergy status to sulfonamides; Z88.5 Allergy status to narcotic agent; Z88.8 Allergy status to other drugs, medicaments and biological substances
CPT/HCPCS: 96361; 85025; 80048; 36415; 85044; 80076; 96375; 96374; 99284; J2550 ×2; J1200; J1170 ×2; J1642; J7030

== ENCOUNTER 2020-12-20 23:16 | Observation (INO) | payer OTHER ==
--- OUTSIDE RECORDS SUMMARY | 2020-12-20 23:20 | XMS REPORT | Continuity of Care Document ---
:1990 Author Organization [facility] t Address [address] [place] [address] Support Name Relationship Address Phone DENI [facility]available [address] [facility] [phone] [address] [facility] [place] [address] DENI Unavailable [phone] [facility] [phone] [address] [facility] [place] [address] JORDAN Unavailable [address] [facility] [phone] [place] [address] JORDAN Unavailable [phone] [facility] [phone] [place] [address] CLINTON DELEON MD E Admitting Provider [address] [facility] [address] [phone] [place] [address] JESSICA SIDDIQUI Primary Care Physician [address] [facility] [address] [place] [address] VIJAYA MULLEN MD A Emergency Provider [address] [facility] [place] [address] NAIMA MULLEN Attending Provider [address] [place] [address] JORDAN Next of Kin N Y [address] [place] [address] IZZY MULLEN, E Emergency Provider [address] [facility] [address] [place] [address] PHYSICIAN Primary Care Physician Unavailable Unavailab chrissy GRISSOM MD, MD Emergency Provider [address] [place] [address] OTHER, NAME IN NOTES Primary Care Physician Unavailable Sylvie caity SHIN MD, MD Emergency Provider [address] [facility] [phone] [place] [address] ISABELLA MULLEN MD MORE Admitting Provider [address] [place] [address] FRANCIS Primary Care Physician [address] [facility] [phone] [place] [address] MD AMRITA A Emergency Provider [facility] [phone] [place] [address] MD ADRIANA Emergency Provider Unavailable Unavailable Jordan Brother [address] [place] [address] Care Team Providers Name Role Phone Shaikh [...] is [facility] 00 [place] Pneumonia Pneumonia Disease Active [facility] 00 [place] 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[facility] - anemia anemia 00:00: Medical 00 [place] 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[facility] - crisis crisis 00:00: Medical 00 [place] Allergies, Adverse Reactions, Alerts Allergy Allergy Status Severity Reaction(s) Onset Inactive Treating Comm ents Source Name Type Date Date Clinician Ondanset Drug Active Nausea And [facility] Hcl Intolera Vomiting 2-28 [facility] - (Pf) nce 00:00: Medical 00 [place] morphine DA Active [facility] 3[facility]11 [place] 00:00: d 00 [facility] TEGEDERM DA Active [place] [facility] 8[facility]23 [place] 00:00: d 00 [facility] Family History Family Member Diagnosis Comments Start Date Stop Date Source Natural brother Unremarkable [facility] Natural father Seizures [facility] Natural father Sickle cell trait [facility] Natural mother Sickle cell trait [facility] Natural sister Unremarkable [facility] Social History Social Habit Start Date Stop Date Quantity Comments Source Sex Assigned At [facility] Tobacco use and 2018-08-02 2018-08-[address] [facility] kes - exposure 00:00:00 00:00:00 [facility] Alcohol intake 2018-08-02 2018-08-[address] [facility] - 00:00:00 00:00:00 non-drinker of Medical Ce nter alcohol (finding) Smoking Status Start Date Stop Date Source Never smoker [facility] kes - [facility] Medications Ordered Filled Start Stop [...] Medica l Center cervix (procedure) [code = 194092340] Future Scheduled [address] [facility] - Test 00:00:00 (procedure) [code = Medical Center 34098105] Future Scheduled 1997-09-[address] [...] [facility] 04:27:00 04:27:00 2018-07-20 2018-07-20 Emergency E [facility] [address] [facility] 10:30:00 10:30:00 Results Test Description Test Time Test Comments Results Result Comments Source SARS-COV2/RT-PCR ([facility]) 2019-11-14 17:47:00 Test Item Value Reference Range Interpretation Comme nts SARS-COV2/RT-PCR (test code = 5145527) Negative Not Detected, N egative SARS-COV-2 PERFORMING LAB (test code = 6511939) [facility] Negative results do not preclude [...] of the Act.Fact Sheet for Healthcare Pro viders:https://www.[employer].Gizmoz/Documents/Xpert%20Xpress%20SARS%20CoV-2/Fact%20Sh eets/302-8042%71ITFB-ZTW-3%20HEALTHCARE%20PROVIDERS%20FACT%20SHEET.pdfFact Sheet for Healthcare Patients:https://www.[employer].Gizmoz/Documents/Xpert%20Xpress%20SARS%20CoV-2/Fact%20Sheets/3023801%20SARS-COV -2%20PATIENT%20FACT%20SHEET.pdfPerforming Laboratory:[facility], [place] [address]PAO W/PLT COUNT & AUTO DIFFERENTIAL 2018-08-10 08:25:00 [...] 3438) Received comment: User comments: Slide comments:RETICULOCYTE [id number] 08:06:00 Test Item Value Reference Range Interpretation Comments RETICULOCYTE COUNT PCT (BEAKER) (test 25.0 % 0.5-1.7 H code = 575) CBC W/PLT COUNT & AUTO [id number] 09:27:00 Test Item Value Reference Range Interpretation [...] 3438) Received comment: User comments: Slide comments:RETICULOCYTE [id number] 05:01:00 Test Item Value Reference Range Interpretation Comments RETICULOCYTE COUNT PCT (BEAKER) (test 21.6 % 0.5-1.7 H code = 575) CBC W/PLT COUNT & AUTO [id number] 15:17:00 Test Item Value Reference Range Interpretation [...] H (BEAKER) (test code = 413) RETICULOCYTE [id number] 08:44:00 Test Item Value Reference Range Interpretation Comments RETICULOCYTE COUNT PCT (BEAKER) (test 23.8 % 0.5-1.7 H code = 575) BLOOD [id number] 14:01:00 Test Item Value Reference Range Interpretation Comments CULTURE (BEAKER) (test No growth in 5 days code = 1095) BLOOD [id number] 12:01:00 Test Item Value Reference Range Interpretation Comments CULTURE (BEAKER) (test No growth in 5 days code = 1095) CBC W/PLT COUNT & AUTO [id number] 11:38:00 Test Item Value Reference Range Interpretation [...] 3438) Received comment: User comments: Slide comments:RETICULOCYTE [id number] 07:44:00 Test Item Value Reference Range Interpretation Comments RETICULOCYTE COUNT PCT (BEAKER) (test 27.0 % 0.5-1.7 H code = 575) RETICULOCYTE [id number] 07:19:00 Test Item Value Reference Range Interpretation Comments RETICULOCYTE COUNT PCT (BEAKER) (test 22.7 % 0.5-1.7 H code = 575) CBC W/PLT COUNT & AUTO [id number] 12:07:00 Test Item Value Reference Range Interpretation [...] 3438) Received comment: User comments: Slide comments:RETICULOCYTE [id number] 06:14:00 Test Item Value Reference Range Interpretation Comments RETICULOCYTE COUNT PCT (BEAKER) (test 21.9 % 0.5-1.7 H code = 575) [id number] 06:02:00 Test Item Value Reference Range Interpretation Comments PHOSPHORUS (BEAKER) (test code = 3.8 mg/dL 2.3-4.7 604) [id number] 06:02:00 Test Item Value Reference Range Interpretation Comments MAGNESIUM (BEAKER) (test code = 1.8 mg/dL 1.6-2.6 627) BASIC METABOLIC [id number] 06:02:00 Test Item Value Reference Range Interpretation [...] Specimen moderately ictericCBC W/PLT COUNT & AUTO [id number] 09:09:00 Test Item Value Reference Range Interpretation [...] = 3438) Received comment: User comments: Slide comments:[id number] 04:11:00 Test Item Value Reference Range Interpretation Comments PHOSPHORUS (BEAKER) (test code = 3.3 mg/dL 2.3-4.7 604) [id number] 04:11:00 Test Item Value Reference Range Interpretation Comments MAGNESIUM (BEAKER) (test code = 1.6 mg/dL 1.6-2.6 627) BASIC METABOLIC [id number] 04:11:00 Test Item Value Reference Range Interpretation [...] FOR DIALYSIS PATIEN TS. Specimen slightly ictericRETICULOCYTE [id number] 03:54:00 Test Item Value Reference Range Interpretation Comments RETICULOCYTE COUNT PCT (BEAKER) (test 20.4 % 0.5-1.7 H code = 575) CBC W/PLT COUNT & AUTO [id number] 18:30:00 Test Item Value Reference Range Interpretation [...] = 413) CBC W/PLT COUNT & AUTO [id number] 10:51:00 Test Item Value Reference Range Interpretation [...] 3438) Received comment: User comments: Slide comments:RETICULOCYTE [id number] 10:08:00 Test Item Value Reference Range Interpretation Comments RETICULOCYTE COUNT PCT (BEAKER) (test 14.4 % 0.5-1.7 H code = 575) CBC W/PLT COUNT & AUTO [id number] 09:30:00 Test Item Value Reference Range Interpretation [...] = 3438) Received comment: User comments: Slide comments:[id number] 03:32:00 Test Item Value Reference Range Interpretation Comments PHOSPHORUS (BEAKER) (test code = 3.5 mg/dL 2.3-4.7 604) [id number] 03:32:00 Test Item Value Reference Range Interpretation Comments MAGNESIUM (BEAKER) (test code = 1.8 mg/dL 1.6-2.6 627) BASIC METABOLIC [id number] 03:32:00 Test Item Value Reference Range Interpretation [...] ictericCT, CHEST WITH IV CONTRAST- PE TEST [id number] 14:01:00FINAL REPORT CT scan of the chest. [...] MDReport Verified Date/Time: 08/02/2018 14:01:29 Reading Location: [facility] C013X [facility] Consult Reading Room URINALYSIS W/ REFLEX URINE [id number] 11:27:00 Test Item Value Reference Range Interpretation [...] 516) SOURCE(BEAKER) (test code = 2795) SCREEN, [id number] 11:15:00 Test Item Value Reference Range Interpretation Comments TEST URINE (BEAKER) (test Negative code = 583) RETICULOCYTE [id number] 04:43:00 Test Item Value Reference Range Interpretation Comments RETICULOCYTE COUNT PCT (BEAKER) (test 13.2 % 0.5-1.7 H code = 575) RAD, CHEST, 2 [id number] 03:54:00Reason for exam:->SICKLE CELL PAIN CRISISIs the [...] [place] MDReport Verified Date/Time: 08/02/2018 03:54:52Reading Location: [address] Reading Room CBC W/PLT COUNT & [...] (BEAKER) (test code = 417) COMPREHENSIVE METABOLIC [id number] 02:42:00 Test Item Value Reference Range Interpretation [...]
[2020-12-21] MEDS ORDERED: PROMETHAZINE INJ 25 MG/ML AMP ONE ×5 (02:24→17:11)
[2020-12-21] MEDS ORDERED: HYDROMORPHONE HCL 1 MG/ML INJ ONE ×3 (02:24→17:12)
[2020-12-21] MEDS ORDERED: FOLIC ACID 5 MG/ML VIAL ONE (02:25)
[2020-12-21] MEDS ORDERED: NA CHLORIDE 0.9% 1,000 ML ONE ×2 (02:25→08:28)
[2020-12-21] MEDS ORDERED: NA CHLORIDE 0.9% 50 ML ONE (02:25)
[2020-12-21 02:38] LABS: Protime INR 1.1
[2020-12-21 02:40] LABS: Absolute Lymphocytes (CBC) 6.4 K/uL (0.7-4.9); Basophils % 1.2 % (0-1.3); Hematocrit 23.1 % (36.0-45.0); Lymphocytes % 31.4 % (15.3-44.8); MPV 8.8 fL (7.6-11.3); RBC Red Blood Cell Count 2.36 M/uL (3.86-4.86)
[2020-12-21 02:52] LABS: ALT/SGPT 34 U/L (12-78); AST/SGOT 19 U/L (15-37); Albumin 4.3 g/dL (3.4-5.0); Alkaline Phosphatase 93 U/L (45-117); BUN Blood Urea Nitrogen 9 mg/dL (7-18); Bicarbonate 25 mmol/L (21-32); Bilirubin Direct 0.5 mg/dL (0-0.2); Bilirubin Total 2.5 mg/dL (0.2-1.0); Glucose Level 90 mg/dL (74-106); NT PRO-BNP 100 pg/mL (<125); Potassium 3.9 mmol/L (3.5-5.1); Protein, Total 7.6 g/dL (6.4-8.2); Sodium Level 143 mmol/L (136-145); Troponin (Emerg Dept Use Only) < 0.02 ng/mL (0.0-0.045)
--- NOTE | 2020-12-21 03:18 | ER ---
Nurse's Notes [facility] Name: Gume Ortega Age: 30 yrs Sex: Female : 1990 Arrival Date: 12/20/2020 Time: 23:18 Bed 30 Private MD: Diagnosis: Other sickle-cell disorders with crisis;Anemia, unspecified;Elevated white blood cell count;Other malaise and fatigue Presentation: 12/20 23:32 Chief complaint: Patient states: Pain all over. Sickle cell crisis. Pt stated, " I've kg had this pain for a month. I 'm on a new treatment but it isn't working. My regular Dr. can't get me in till the .". Coronavirus screen: Client denies travel out of the [place] in the last 14 days. At this time, unable to obtain information related to travel outside the [place] At this time, the client does not indicate any symptoms associated with coronavirus-19. Ebola Screen: Patient negative for fever greater than or equal to 101.5 degrees Fahrenheit, and additional compatible Ebola Virus Disease symptoms Patient denies exposure to infectious person. Patient denies travel to an Ebola-affected area in the 21 days before illness onset. Initial Sepsis Screen: Does the patient meet any 2 criteria? No. Patient's initial sepsis screen is negative. Does the patient have a suspected source of infection? No. Patient's initial sepsis screen is negative. Risk Assessment: Do you want to hurt yourself or someone else? Patient reports no desire to harm self or others. Onset of symptoms was December 20, 2020 at 19:00. 23:32 Method Of Arrival: Wheelchair kg 23:32 Acuity: MARILUZ 3 kg Triage Assessment: 23:34 General: Appears uncomfortable, Behavior is cooperative, appropriate for age, anxious, kg restless. Pain: Complains of pain in Generalized Pain currently is 10 out of 10 on a pain scale. at worst was 10 out of 10 on a pain scale. level that patient reports is acceptable is 5 out of 10 on a pain scale. Quality of pain is described as Pt stated. " I feel like my bones are breaking or getting ran over." Pain began 4 hours ago. Pt stated its been going on for a month but got out of control tonight at 1900. 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 - Social history:: Smoking status: Patient denies any tobacco usage or history of. Patient uses street drugs, marijuana. Screenin:38 Abuse screen: Denies threats or abuse. Denies injuries from another. Nutritional kg screening: No deficits noted. Tuberculosis screening: No symptoms or risk factors identified. Fall Risk None identified. Assessment: 12/21 06:00 General: Appears in no apparent distress. Behavior is calm, cooperative, appropriate lp1 for age. Neuro: Level of Consciousness is awake, alert, obeys commands. Respiratory: Respiratory effort is even, unlabored. Derm: Skin is intact, Skin is dry, Skin is normal. 06:00 Musculoskeletal: No deficits noted. lp1 Vital Signs: 12/20 23:32 BP 129 / 94; Pulse 92; Resp 22; Temp 98.5(O); Pulse Ox 100% on R/A; Weight 70.76 kg kg (R); Height 5 ft. 2 in. (157.48 cm) (R); Pain 10/10; 23:32 Body Mass Index 28.53 (70.76 kg, 157.48 cm) kg ED Course: 23:18 Patient arrived in ED. wm 23:34 Triage completed. kg 23:34 Arm band placed on right wrist. kg 23:38 Patient has correct armband on for positive identification. kg 23:38 No provider procedures requiring assistance completed. kg 12/21 01:31 Nelson Duffy MD is Attending Physician. [facility] 01:40 Noy Pretty, SHYAM is Primary Nurse. lp1 01:52 XRAY Chest (1 view) In Process Unspecified. EDMS 02:00 Accessed Port-a-Cath. using ,sterile technique. lp1 03:12 Jas Redd is Hospitalizing Provider. cassidy 06:30 Patient admitted, IV remains in place. lp1 15:04 Primary Nurse role handed off by Noy Pretty RN bd Administered Medications: 02:23 Drug: Phenergan (promethazine) 12.5 mg Route: IVP; Site: left subclavian; lp1 04:32 Follow up: Response: No adverse reaction lp1 02:24 Drug: NS 0.9% 1000 ml Route: IV; Rate: 1 bolus; Site: Port-a-cath; lp1 06:23 Follow up: IV Status: Completed infusion; IV Intake: 1000ml lp1 02:24 Drug: Dilaudid (HYDROmorphone) 1 mg Route: IVP; Site: left subclavian; lp1 04:32 Follow up: Response: No adverse reaction lp1 02:25 Drug: foLIC Acid 1 mg Route: IVPB; Site: Port-a-cath; lp1 06:23 Follow up: IV Status: Completed infusion; IV Intake: 50ml lp1 03:51 Drug: Dilaudid (HYDROmorphone) 1 mg Route: IVP; Site: Port-a-cath; lp1 04:32 Follow up: Response: No adverse reaction lp1 03:51 Drug: Phenergan (promethazine) 12.5 mg Route: IVP; Site: Port-a-cath; lp1 04:32 Follow up: Response: No adverse reaction lp1 06:22 Follow up: Response: No adverse reaction lp1 Intake: 06:23 IV: 1000ml; Total: 1000ml. lp1 06:23 IV: 50ml; Total: 1050ml. lp1 Outcome: 03:17 Decision to Hospitalize by Provider. cassidy 06:30 Admitted to ER Hold. Please see [facility] for further documentation. lp1 06:30 Condition: stable 06:30 Instructed on the need for admit. 18:20 Patient left the ED. aa5 Signatures: Dispatcher [employer] EDMS Carol Ann Crouch Corey, MD MD cha Calderon, Audri RN RN aa5 Noy Pretty, RN RN lp1 Lisa Prince, RN RN kg Vernon, Mona
--- NOTE | 2020-12-21 03:18 | EDPHYS ---
Physician Documentation [facility] Name: Gume Ortega Age: 30 yrs Sex: Female : 1990 Arrival Date: 12/20/2020 Time: 23:18 Bed 30 Private MD: ED Physician Nelson Duffy HPI: 12/21 01:35 This 30 yrs old Black Female presents to ER via Wheelchair with complaints of Sickle cassidy Cell Crisis. 01:35 pain all over, ssd. Onset: The symptoms/episode began/occurred 1 day(s) ago. Severity cassidy of symptoms: At their worst the symptoms were mild moderate in the emergency department the symptoms are unchanged. The patient has not experienced similar symptoms in the past. The patient has experienced similar episodes in the past, multiple times. 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 - Social history:: Smoking status: Patient denies any tobacco usage or history of. Patient uses street drugs, marijuana. ROS: 12/21 01:35 Constitutional: Negative for fever, chills, and weight loss, Eyes: Negative for injury, cassidy pain, redness, and discharge, ENT: Negative for injury, pain, and discharge, Neck: Negative for injury, pain, and swelling, Cardiovascular: Negative for chest pain, palpitations, and edema, Respiratory: Negative for shortness of breath, cough, wheezing, and pleuritic chest pain, Abdomen/GI: Negative for abdominal pain, nausea, vomiting, diarrhea, and constipation, Back: Negative for injury and pain, : Negative for injury, bleeding, discharge, and swelling, Skin: Negative for injury, rash, and discoloration, Neuro: Negative for headache, weakness, numbness, tingling, and seizure, Psych: Negative for depression, anxiety, suicide ideation, homicidal ideation, and hallucinations, Allergy/Immunology: Negative for hives, rash, and allergies, Endocrine: Negative for neck swelling, polydipsia, polyuria, polyphagia, and marked weight changes, Hematologic/Lymphatic: Negative for swollen nodes, abnormal bleeding, and unusual bruising. MS/extremity: Positive for decreased range of motion, pain, of the right arm, left arm, right leg and left leg. Exam: 01:35 Constitutional: This is a well developed, well nourished patient who is awake, alert, cassidy and in no acute distress. Head/Face: Normocephalic, atraumatic. Eyes: Pupils equal round and reactive to light, extra-ocular motions intact. Lids and lashes normal. Conjunctiva and sclera are non-icteric and not injected. Cornea within normal limits. Periorbital areas with no swelling, redness, or edema. ENT: Nares patent. No nasal discharge, no septal abnormalities noted. Tympanic membranes are normal and external auditory canals are clear. Oropharynx with no redness, swelling, or masses, exudates, or evidence of obstruction, uvula midline. Mucous membranes moist. Neck: Trachea midline, no thyromegaly or masses palpated, and no cervical lymphadenopathy. Supple, full range of motion without nuchal rigidity, or vertebral point tenderness. No Meningismus. Chest/axilla: Normal chest wall appearance and motion. Nontender with no deformity. No lesions are appreciated. Cardiovascular: Regular rate and rhythm with a normal S1 and S2. No gallops, murmurs, or rubs. Normal PMI, no JVD. No pulse deficits. Respiratory: Lungs have equal breath sounds bilaterally, clear to auscultation and percussion. No rales, rhonchi or wheezes noted. No increased work of breathing, no retractions or nasal flaring. Abdomen/GI: Soft, non-tender, with normal bowel sounds. No distension or tympany. No guarding or rebound. No evidence of tenderness throughout. Back: No spinal tenderness. No costovertebral tenderness. Full range of motion. Female : Normal external genitalia. Skin: Warm, dry with normal turgor. Normal color with no rashes, no lesions, and no evidence of cellulitis. MS/ Extremity: Pulses equal, no cyanosis. Neurovascular intact. Full, normal range of motion. Neuro: Awake and alert, GCS 15, oriented to person, place, time, and situation. Cranial nerves II-XII grossly intact. Motor strength 5/5 in all extremities. Sensory grossly intact. Cerebellar exam normal. Normal gait. Psych: Awake, alert, with orientation to person, place and time. Behavior, mood, and affect are within normal limits. 01:35 Musculoskeletal/extremity: Extremities: all appear grossly normal, with no appreciated pain with palpation, DVT Exam: No signs of deep vein thrombosis. no pain, no swelling, no tenderness, negative Homans' sign noted on exam, no appreciated bluish discoloration, no erythema, no increased warmth. 05:14 ECG was reviewed by the Attending Physician. [facility] Vital Signs: 12/20 23:32 BP 129 / 94; Pulse 92; Resp 22; Temp 98.5(O); Pulse Ox 100% on R/A; Weight 70.76 kg kg (R); Height 5 ft. 2 in. (157.48 cm) (R); Pain 10; 23:32 Body Mass Index 28.53 (70.76 kg, 157.48 cm) kg MDM: 12/21 01:36 Differential Diagnosis. Data reviewed: vital signs, nurses notes, lab test result(s), [facility] EKG, radiologic studies, plain films. Data interpreted: shelter monitor: rate is 92 beats/min, rhythm is regular. Test interpretation: by ED physician or midlevel provider: ECG, plain radiologic studies. Counseling: I had a detailed discussion with the patient and/or guardian regarding: the historical points, exam findings, and any diagnostic results supporting the discharge/admit diagnosis, the presence of at least one elevated blood pressure reading (>120/80) during this emergency department visit, lab results, radiology results, the need for outpatient follow up, for definitive care, 01:38 Patient medically screened. [facility] 12/21 01:34 Order name: Basic Metabolic Panel [facility] 12/21 01:34 Order name: CBC with Diff [facility] 12/21 01:34 Order name: LFT's [facility] 12/21 01:34 Order name: Magnesium [facility] 12/21 01:34 Order name: NT PRO-BNP [facility] 12/21 01:34 Order name: PT-INR; Complete Time: 03:09 [facility] 12/21 01:34 Order name: Troponin (emerg Dept Use Only); Complete Time: 03:09 [facility] 12/21 01:34 Order name: Retic Count [facility] 12/21 01:34 Order name: Basic Metabolic Panel; Complete Time: 03:09 [facility] 12/21 01:34 Order name: CBC with Automated Diff [facility] 12/21 01:34 Order name: Liver (Hepatic) Function; Complete Time: 03:09 [facility] 12/21 01:34 Order name: Magnesium; Complete Time: 03:09 [facility] 12/21 01:34 Order name: NT PRO-BNP; Complete Time: 03:09 [facility] 12/21 02:52 Order name: Manual Differential [facility] 12/21 01:34 Order name: XRAY Chest (1 view) [facility] 12/21 03:51 Order name: Blood Culture [facility] 12/21 03:51 Order name: Urinalysis W/Microscopic [facility] 12/21 05:23 Order name: COVID-19 : Document "Date of Symptom Onset" if Symptomatic. [facility] 12/21 06:33 Order name: Urine Dipstick-Ancillary [facility] 12/21 08:00 Order name: SARS-COV-2 RT PCR [facility] 12/21 08:38 Order name: Comprehensive Metabolic Panel [facility] 12/21 08:38 Order name: Phosphorus [facility] 12/21 08:38 Order name: Magnesium [facility] 12/21 13:44 Order name: Type and Screen [facility] 12/21 01:34 Order name: EKG; Complete Time: 01:34 [facility] 12/21 01:34 Order name: Cardiac monitoring; Complete Time: 07:32 [facility] 12/21 01:34 Order name: EKG - Nurse/Tech; Complete Time: 05:04 [facility] 12/21 01:34 Order name: IV Saline Lock; Complete Time: 02:59 [facility] 12/21 01:34 Order name: Labs collected and sent; Complete Time: 03:00 [facility] 12/21 01:34 Order name: O2 Per Protocol; Complete Time: 01:47 [facility] 12/21 01:34 Order name: O2 Sat Monitoring; Complete Time: 01:47 [facility] 12/21 01:34 Order name: Urine Dipstick-Ancillary (obtain specimen); Complete Time: 06:48 cassidy 12/21 01:34 Order name: Urine Test (obtain specimen); Complete Time: 06:28 cassidy 12/21 01:34 Order name: Oxygen; Complete Time: 07:32 [facility] EC:14 Rate is 75 beats/min. Rhythm is regular. QRS [place] is Normal. RI interval is normal. QRS cassidy interval is normal. QT interval is normal. No Q waves. T waves are Normal. No ST changes noted. Clinical impression: Normal ECG, NSR w/ Non-specific ST/T Changes, and No evidence of ischemia. Interpreted by me. Reviewed by me. Administered Medications: 02:23 Drug: Phenergan (promethazine) 12.5 mg Route: IVP; Site: left subclavian; lp1 04:32 Follow up: Response: No adverse reaction lp1 02:24 Drug: NS 0.9% 1000 ml Route: IV; Rate: 1 bolus; Site: Port-a-cath; lp1 06:23 Follow up: IV Status: Completed infusion; IV Intake: 1000ml lp1 02:24 Drug: Dilaudid (HYDROmorphone) 1 mg Route: IVP; Site: left subclavian; lp1 04:32 Follow up: Response: No adverse reaction lp1 02:25 Drug: foLIC Acid 1 mg Route: IVPB; Site: Port-a-cath; lp1 06:23 Follow up: IV Status: Completed infusion; IV Intake: 50ml lp1 03:51 Drug: Dilaudid (HYDROmorphone) 1 mg Route: IVP; Site: Port-a-cath; lp1 04:32 Follow up: Response: No adverse reaction lp1 03:51 Drug: Phenergan (promethazine) 12.5 mg Route: IVP; Site: Port-a-cath; lp1 04:32 Follow up: Response: No adverse reaction lp1 06:22 Follow up: Response: No adverse reaction lp1 Disposition Summary: 12/21/20 03:17 Hospitalization Ordered Hospitalization Status: Observation cassidy Provider: Jas Redd cha Condition: Stable cassidy Problem: new cassidy Symptoms: have improved cassidy Bed/Room Type: Standard cassidy Location: Telemetry/MedSurg (Inpatient)(12/21/20 17:20) aa5 Room Assignment: [facility](12/21/20 17:20) aa5 Diagnosis - Other sickle-cell disorders with crisis cassidy - Anemia, unspecified cassidy - Elevated white blood cell count cassidy - Other malaise and fatigue cassidy Discharge Instructions: - Discharge Summary Sheet cassidy - Anemia cassidy - Sickle Cell Anemia, Adult cassidy - Sickle Cell Anemia, Adult, [id number] cassidy Forms: - Medication Reconciliation Form cassidy - SBAR form cassidy Signatures: Dispatcher [employer] EDMS Nelson Duffy MD MD cha Ballard, Brenda RN RN bb Johanne Mascorro RN RN aa5 Noy Pretty RN RN lp1 Lisa Prince RN RN kg Corrections: (The following items were deleted from the chart) 06:59 05:23 CORONAVIRUS ordered. [facility] EDMS 07:22 03:17 Telemetry/MedSurg (observation) [facility] bb 07:22 03:17 cassidy bb 17:20 07:22 [facility] ER HOLD bb aa5 17:20 07:22 ERHOLD- bb aa5
[2020-12-21 03:27] LABS: Blood Morphology Comment NOTED (NOT SEEN); Platelet Estimate ADEQ; Polychromasia 3+
[2020-12-21] MEDS ORDERED: HYDROMORPHONE HCL 2 MG/ML inj ONE ×2 (03:38→13:16)
--- NOTE | 2020-12-21 04:24 | P.HP ---
Certification for Inpatient Patient admitted to: Inpatient With expected LOS: <2 Midnights Patient will require the following post-hospital care: None Practitioner: I am a practitioner with admitting privileges, knowledge of patient current condition, hospital course, and medical plan of care. Services: Services provided to patient in accordance with Admission requirements found in Title 42 Section 412.3 of the Code of Federal Regulations <Han Curry - Last Filed: 12/21/20 04:20> Patient History Date of Service: 12/21/20 Reason for admission: sickle cell crisis History of Present Illness: Ms. Ortega is a 30 yo F with sickle cell anemia who presents with two weeks of increased pain. She is unable to see her locator until January and he cannot refill her dilaudid over the phone so she has been out of pain medication. She denies night sweats, chills, nausea, vomiting, diarrhea and abdominal pain. WBC 20.5. Hemoglobin 8.0. - Past Medical/Surgical History Diabetic: No -: sickle cell -: port-a-cath placement - Family History Mother -: Other (see notes) Notes: sickle cell trait Father -: Other (see notes) Notes: sickle cell trait - Social History Smoking Status: Never smoker Alcohol use: Yes CD- Drugs: Yes Caffeine use: Yes Place of Residence: Home <Han Curry - Last Filed: 12/21/20 04:20> Date of Service: 12/22/20 <Apolinar Castrejon - Last Filed: 12/22/20 15:07> Allergies ondansetron HCl [From Zofran] Allergy (Mild, Verified 08/02/12 16:51) Nausea/Vomiting morphine Allergy (Verified 12/21/20 21:22) Nausea/Vomiting Sulfa (Sulfonamide Antibiotics) Allergy (Verified 12/21/20 21:22) Nausea/Vomiting Home Medications: Folic Acid [Folic Acid*] 1 mg PO DAILY 08/01/12 Apixaban [Eliquis *] 1 tab PO BID 08/12/18 Promethazine Tab [Phenergan*] 25 mg PO Q4H PRN #30 tab 11/15/19 ALPRAZolam [Xanax*] 1 mg PO BIDP PRN 09/30/20 Cholecalciferol (Vitamin D3) [Vitamin D 1000 Iu Tab*] 1,000 unit PO EVERY 7TH DAY 09/30/20 Apixaban [Eliquis *] 2.5 mg PO BID #60 tablet 12/21/20 Cefdinir [Omnicef] 300 mg PO BID #20 capsule 12/21/20 Hydromorphone HCl [Dilaudid] 8 mg PO TID PRN 30 Days #60 tablet 12/21/20 Hydromorphone [Dilaudid] 8 mg PO Q8HP PRN #60 tab 12/21/20 Review of Systems 10-point ROS is otherwise unremarkable Musculoskeletal: Neck Pain, Shoulder Pain, Arm Pain, Back Pain, Hand Pain, Leg Pain, Foot Pain <Han Curry - Last Filed: 12/21/20 04:20> Physical Examination - Physical Exam General: Alert, In no apparent distress HEENT: Atraumatic, PERRLA, Mucous membr. moist/pink, EOMI, Sclerae nonicteric Neck: Supple, 2+ carotid pulse no bruit, No LAD, Without JVD or thyroid abnormality Respiratory: Clear to auscultation bilaterally, Normal air movement Cardiovascular: Regular rate/rhythm, Normal S1 S2 Gastrointestinal: Normal bowel sounds, No tenderness Musculoskeletal: Tenderness Integumentary: No rashes Neurological: Normal gait, Normal speech, Normal strength at 5/5 x4 extr, Normal tone, Normal affect Lymphatics: No axilla or inguinal lymphadenopathy - Studies Laboratory Data (last 24 hrs) 12/21/20 02:10: PT 12.7 H, INR 1.10 12/21/20 02:10: WBC 20.50 H* D, Hgb 8.0 L, Hct 23.1 L, Plt Count 508 H 12/21/20 02:10: Sodium 143, Potassium 3.9, BUN 9, Creatinine 0.61, Glucose 90, Magnesium 2.0, Total Bilirubin 2.5 H, AST 19, ALT 34, Alkaline Phosphatase 93 <Han Curry - Last Filed: 12/21/20 04:20> Assessment and Plan - Problems (Diagnosis) (1) Anemia, sickle cell with crisis Status: Chronic (2) Leucocytosis Status: Chronic Qualifiers: Leukocytosis type: unspecified (3) Sickle cell crisis Onset Date: 09/17/16 Status: Chronic - Plan IV dilaudid PRN, phenergan PRN, benadryl PRN eliquis 2.5 BID continue IVF, O2 as needed UA, type + screen, blood cultures pending Discharge Plan: Home Plan to discharge in: 48 Hours - Advance Directives Does patient have a Living Will: No Does patient have a Durable POA for Healthcare: No - Code Status/Comfort Care Code Status Assessed: Yes (full code ) Critical Care: No Time Spent Managing Pts Care (In Minutes): 70 <Han Curry - Last Filed: 12/21/20 04:20> - Problems (Diagnosis) (1) Sickle cell pain crisis Status: Acute (2) Chronic pain Status: Acute <Apolinar Castrejon - Last Filed: 12/22/20 15:07> Date of Service: 12/21/20 Subjective Agree with plan of care as mentioned above Review of Systems 10-point ROS is otherwise unremarkable Physical Examination - Vital Signs Reviewed - Physical Exam General: Alert, In no apparent distress, Oriented x3 Respiratory: Clear to auscultation bilaterally, Normal air movement Cardiovascular: Regular rate/rhythm, Normal S1 S2 Gastrointestinal: Normal bowel sounds, No tenderness Neurological: Normal speech, Normal tone, Normal affect Assessment & Plan - Problems (Diagnosis) (1) Sickle cell pain crisis Current Visit: Yes Status: Acute (2) Chronic pain Current Visit: Yes Status: Acute - Plan Plan: 1. Continue with pain control 2. Gentle hydration 3. Blood transfusion 4. Anticipate discharge home after transfusion 5. GI and DVT prophylaxis <Apolinar Castrejon - Last Filed: 12/22/20 15:07>
[2020-12-21] MEDS ORDERED: DIPHENHYDRAMINE 50 MG/ML VIAL ONE ×4 (04:27→17:11)
[2020-12-21 06:33] LABS: Urine Blood Negative (Negative); Urine Glucose Negative (Negative); Urine Protein Negative (Negative)
[2020-12-21] MEDS: NA CHLORIDE 0.9% 1,000 ML IV SCH ×3 (07:21→21:20)
[2020-12-21] MEDS ORDERED: DIPHENHYDRAMINE 50 MG/ML VIAL IV PRN (07:21)
[2020-12-21] MEDS ORDERED: ACETAMINOPHEN 500 MG TAB PO PRN (07:21)
[2020-12-21] MEDS ORDERED: HYDROMORPHONE HCL 1 MG/ML INJ IV PRN (07:21)
--- NOTE | 2020-12-21 07:34 | RAD REPORT ---
EXAM DESCRIPTION: RAD - Chest Single View - 12/21/2020 1:52 am CLINICAL HISTORY: PALPITATIONS COMPARISON: Chest Single View dated 11/24/2020; Chest Single View dated 10/12/2020; Chest Single View d ated 09/29/2020; Chest Single View dated 07/14/2020 FINDINGS: No evidence of edema or pneumonia. The heart size is within normal limits.No acute osseous abnormality. No significant pleural effusions or pneumothorax. Left IJ approach Port-A-Cath with tip overlying the right atrium. IMPRESSION: No acute cardiopulmonary disease.
[2020-12-21 08:37] LABS: ALT/SGPT 30 U/L (12-78); AST/SGOT 18 U/L (15-37); Albumin 3.9 g/dL (3.4-5.0); Alkaline Phosphatase 84 U/L (45-117); BUN Blood Urea Nitrogen 8 mg/dL (7-18); Bicarbonate 25 mmol/L (21-32); Bilirubin Total 2.7 mg/dL (0.2-1.0); Glucose Level 83 mg/dL (74-106); Magnesium 2.1 mg/dL (1.8-2.4); Phosphorus 3.8 mg/dL (2.5-4.9); Potassium 3.9 mmol/L (3.5-5.1); Sodium Level 143 mmol/L (136-145)
[2020-12-21] MEDS: APIXABAN 2.5 MG TABLET PO SCH ×2 (09:00→21:27)
[2020-12-21 11:53] VITALS: BMI 28.5
--- NOTE | 2020-12-21 13:00 | EKG ---
Test Date: 2020-12-21 Test Time: 04:57:39 Dictaphone Transcriber: RODY MEASUREMENT RESULTS: Intervals: Rate: 75 OR: 146 QRSD: 78 QT: 408 QTc: 455 Sunset: P: 24 OR: 146 QRS: 53 T: 50 INTERPRETIVE STATEMENTS: Normal sinus rhythm Normal ECG Compared to ECG 11/24/2020 17:31:44 Sinus bradycardia no longer present Electronically Signed On 12-21-20 12:59:17 CDT by Jeremie Pan
[2020-12-21] MEDS: DIPHENHYDRAMINE 50 MG/ML VIAL IV PRN ×3 (13:02→21:15)
[2020-12-21] MEDS: HYDROMORPHONE HCL 1 MG/ML INJ IV PRN ×3 (13:02→21:15)
[2020-12-21] MEDS: PROMETHAZINE INJ 25 MG/ML AMP IV PRN ×3 (13:03→21:14)
[2020-12-21] MEDS ORDERED: NA CHLORIDE 0.9% 250 ML ONE (22:42)
[2020-12-22] MEDS: PROMETHAZINE INJ 25 MG/ML AMP IV PRN ×4 (01:00→13:21)
[2020-12-22] MEDS: HYDROMORPHONE HCL 1 MG/ML INJ IV PRN ×4 (01:00→13:21)
[2020-12-22] MEDS: DIPHENHYDRAMINE 50 MG/ML VIAL IV PRN ×4 (01:00→13:21)
[2020-12-22] MEDS ORDERED: NA CHLORIDE 0.9% 250 ML ONE (03:11)
--- NOTE | 2020-12-22 03:29 | P.PN ---
Subjective Date of Service: 12/21/20 Subjective: No new changes, No C/O voiced Patient doing well & awaiting blood transfusion to be completed and then can discharge home Review of Systems 10-point ROS is otherwise unremarkable Physical Examination - Vital Signs Temperature: 98.0 F Blood Pressure: 123/55 Pulse: 80 Respirations: 18 Pulse Ox (%): 98 - Physical Exam General: Alert, In no apparent distress, Oriented x3 HEENT: Atraumatic, PERRLA, EOMI Neck: Supple, JVD not distended Respiratory: Clear to auscultation bilaterally, Normal air movement Cardiovascular: Regular rate/rhythm, Normal S1 S2 Gastrointestinal: Normal bowel sounds, No tenderness Musculoskeletal: No tenderness Integumentary: No rashes Neurological: Normal speech, Normal tone, Normal affect Lymphatics: No axilla or inguinal lymphadenopathy - Studies Medications List Reviewed: Yes Assessment & Plan - Problems (Diagnosis) (1) Sickle cell pain crisis Current Visit: Yes Status: Acute (2) Chronic pain Current Visit: Yes Status: Acute - Plan Plan: 1. Continue with pain control 2. Gentle hydration 3. Blood transfusion 4. Anticipate discharge home after transfusion 5. GI and DVT prophylaxis - Advance Directives Does patient have a Living Will: No Does patient have a Durable POA for Healthcare: No
[2020-12-22] MEDS: APIXABAN 2.5 MG TABLET PO SCH (09:22)
[2020-12-22 10:56] LABS: Absolute Lymphocytes (CBC) 6.5 K/uL (0.7-4.9); Basophils % 0.9 % (0-1.3); Hematocrit 26.8 % (36.0-45.0); Lymphocytes % 35.4 % (15.3-44.8); MPV 9.5 fL (7.6-11.3); RBC Red Blood Cell Count 2.85 M/uL (3.86-4.86)
--- NOTE | 2020-12-22 11:00 | P.PN ---
Subjective Date of Service: 12/22/20 Patient doing well & awaiting blood transfusion to be completed and then can discharge home Review of Systems 10-point ROS is otherwise unremarkable Genitourinary: Hematuria Physical Examination - Vital Signs Temperature: 97.7 F Blood Pressure: 121/77 Pulse: 93 Respirations: 22 Pulse Ox (%): 90 - Physical Exam General: Alert, In no apparent distress, Oriented x3 Respiratory: Clear to auscultation bilaterally, Normal air movement Cardiovascular: Regular rate/rhythm, Normal S1 S2 Gastrointestinal: Normal bowel sounds, Soft and benign, Non-distended, No tenderness Musculoskeletal: No clubbing, No swelling - Studies Medications List Reviewed: Yes Assessment & Plan - Problems (Diagnosis) (1) Sickle cell pain crisis Status: Acute (2) Chronic pain Status: Acute - Plan Plan: Continue with plan of care as mentioned below: 1. Continue with pain control; will go ahead and prescribe her oral narcotics at discharge 2. Gentle hydration; status post blood transfusion. 2 units of packed red blood cells pending. Afterwards can Hep-Lock IV 3. Prophylactic antibiotic therapy 4. Anticipate discharge home after transfusion 5. GI and DVT prophylaxis Discharge Plan: Home Plan to discharge in: Greater than 2 days - Advance Directives Does patient have a Living Will: No Does patient have a Durable POA for Healthcare: No - Code Status/Comfort Care Code Status Assessed: Yes Code Status: Full Code Critical Care: No Time Spent Managing PTS Care (In Minutes): 35
[2020-12-22 11:09] LABS: ALT/SGPT 30 U/L (12-78); AST/SGOT 22 U/L (15-37); Albumin 3.8 g/dL (3.4-5.0); Alkaline Phosphatase 78 U/L (45-117); BUN Blood Urea Nitrogen 7 mg/dL (7-18); Bicarbonate 27 mmol/L (21-32); Bilirubin Total 3.2 mg/dL (0.2-1.0); Glucose Level 98 mg/dL (74-106); Magnesium 1.9 mg/dL (1.8-2.4); Phosphorus 3.6 mg/dL (2.5-4.9); Potassium 3.6 mmol/L (3.5-5.1); Sodium Level 141 mmol/L (136-145)
[2020-12-22] MEDS ORDERED: POTASSIUM CL SA 10 MEQ TAB PO ONE (11:44)
[2020-12-22] MEDS ORDERED: HEPARIN 500 UNIT/5 ML SYR IV PRN (12:03)
[2020-12-22 12:31] VITALS: O2SAT 96
[2020-12-22 15:07] VITALS: BP 121/77; TEMP 97.7
--- NOTE | 2020-12-22 15:15 | P.DS ---
Discharge Date: 12/22/20 Disposition: ROUTINE DISCHARGE Discharge Condition: GOOD Reason for Admission: sickle cell crisis - Problems (1) Sickle cell pain crisis Status: Acute (2) Chronic pain Status: Acute Brief History of Present Illness: Patient is a 30-year-old female who was well known to me from multiple admissions for sickle cell pain crisis. She normally requires blood transfusion as she hemolyzed his whenever she goes into a pain crisis. Her hemoglobin was 8.0 on arrival. We went ahead and transfused her 2 units of packed red blood cells. Patient was admitted for sickle cell pain crisis management. Hospital Course: Patient was hydrated and because of her low hemoglobin we went ahead and transfused her 2 units of packed red blood cells. She also receives prophylaxis that she had a significant leukocytosis. She follows up with a lithographic retoucher apprentice in [place] but has not been able to see him lately. Will go ahead and restart her pain medication and after the blood transfusion she should be stable for discharge. Outpatient follow with her lithographic retoucher apprentice in 2-4 weeks. Vital Signs/Physical Exam: Temp Pulse Resp BP Pulse Ox 97.7 F 93 H 22 H 121/77 90 L 12/22/20 15:06 12/22/20 15:06 12/22/20 15:06 12/22/20 15:06 12/22/20 15:06 General: Alert, In no apparent distress, Oriented x3 Laboratory Data at Discharge: WBC 18.30 K/uL (4.3-10.9) H 12/22/20 09:20 Hgb 9.3 g/dL (12.0-15.0) L 12/22/20 09:20 Hct 26.8 % (36.0-45.0) L D 12/22/20 09:20 Plt Count 412 K/uL (152-406) H 12/22/20 09:20 PT 12.7 SECONDS (9.5-12.5) H 12/21/20 02:10 INR 1.10 12/21/20 02:10 Sodium 141 mmol/L (136-145) 12/22/20 09:20 Potassium Cancelled 12/22/20 Unknown BUN 7 mg/dL (7-18) 12/22/20 09:20 Creatinine 0.54 mg/dL (0.55-1.3) L 12/22/20 09:20 Glucose 98 mg/dL (74-106) 12/22/20 09:20 Phosphorus 3.6 mg/dL (2.5-4.9) 12/22/20 09:20 Magnesium 1.9 mg/dL (1.8-2.4) 12/22/20 09:20 Total Bilirubin 3.2 mg/dL (0.2-1.0) H 12/22/20 09:20 AST 22 U/L (15-37) 12/22/20 09:20 ALT 30 U/L (12-78) 12/22/20 09:20 Alkaline Phosphatase 78 U/L (45-117) 12/22/20 09:20 Home Medications: Folic Acid [Folic Acid*] 1 mg PO DAILY 08/01/12 Apixaban [Eliquis *] 1 tab PO BID 08/12/18 Promethazine Tab [Phenergan*] 25 mg PO Q4H PRN #30 tab 11/15/19 ALPRAZolam [Xanax*] 1 mg PO BIDP PRN 09/30/20 Cholecalciferol (Vitamin D3) [Vitamin D 1000 Iu Tab*] 1,000 unit PO EVERY 7TH DAY 09/30/20 Apixaban [Eliquis *] 2.5 mg PO BID #60 tablet 12/21/20 Cefdinir [Omnicef] 300 mg PO BID #20 capsule 12/21/20 Hydromorphone HCl [Dilaudid] 8 mg PO TID PRN 30 Days #60 tablet 12/21/20 Hydromorphone [Dilaudid] 8 mg PO Q8HP PRN #60 tab 12/21/20 New Medications: Hydromorphone HCl [Dilaudid] 8 mg PO TID PRN 30 Days #60 tablet PRN Reason: Pain Scale 8-10 (Severe) Hydromorphone [Dilaudid] 8 mg PO Q8HP PRN #60 tab PRN Reason: Pain Apixaban [Eliquis *] 2.5 mg PO BID #60 tablet Cefdinir [Omnicef] 300 mg PO BID #20 capsule Diet: Regular Activity: Fall precautions Followup: Neil Benitez MD [Primary Care Provider] - Time spent managing pt's care (in minutes): 35
== END 2020-12-22 13:43 | disposition home or self-care (01) ==
LOC: ER 23:16 → INTOOBSV 12-21 03:51 → ERHOLD 12-21 03:51 → 2ND 12-21 17:49
PROVIDERS: ADMIT Hospitalist; ATTEND Hospitalist
DX: D57.00 Hb-SS disease with crisis, unspecified (principal); Z79.01 Long term (current) use of anticoagulants; Z88.6 Allergy status to analgesic agent; Z88.2 Allergy status to sulfonamides
CPT/HCPCS: 36430 ×2; 93005; 87040; 85025 ×2; 80048; 36415 ×2; 86900; 83735 ×3; 86850; 84100 ×2; 85610; 85044; 86901; 80076; 81003; 84484; 80053 ×2; 83880; 71045; 94760 ×2; 99285; U0003; J2550 ×10; J1200 ×9; J1170 ×10; J1642; G0378 ×2; P9016 ×2; J7050 ×2; J7030 ×3

== ENCOUNTER 2021-01-22 00:03 | Emergency (ER) | payer OTHER ==
--- OUTSIDE RECORDS SUMMARY | 2021-01-22 00:09 | XMS REPORT | Continuity of Care Document ---
:[address] [facility] t Address [address] [place] [address] Support Name Relationship Address Phone DENI Unavailable [id number] [facility] [facility] [phone] [place] [address] DENI Unavailable [phone] ARNALDO [facility] [phone] [address] [facility] [address] [place] [address] JORDAN Unavailable [address] WINNIETEETEE [facility] [phone] [place] [address] JORDAN Unavailable [address] [facility] [phone] [place] [address] [address] [place] [address] CLINTON DELEON MD E Admitting Provider [address] [facility] [address] [place] [address] JESSICA SIDDIQUI Primary Care Physician [address] [place] [address] [phone] [place] [address] VIJAYA MULLEN MD A Emergency Provider [address] [place] [address] NAIMA MULLEN Attending Provider [address] [place] [address] JORDAN Next of Kin [address] [place] [address] IZZY MULLEN, E Emergency Provider [address] [facility] [address] [place] [address] PHYSICIAN Primary Care Physician Unavailable Unavailab chrissy GRISSOM MD, MD Emergency Provider [address] [phone] [place] [address] OTHER, NAME IN NOTES Primary Care Physician Unavailable Sylvie caity SHIN MD, MD Emergency Provider [address] [place] [address] ISABELLA MULLEN MD MORE Admitting Provider [address] [phone] [place] [address] FRANCIS Primary Care Physician [address] [facility] [phone] [place] [address] MD AMRITA A Emergency Provider [facility] [phone] [place] [address] MD ADRIANA Emergency Provider Unavailable Unavailable Care Team Providers Name Role Phone Shaikh PAZ, [facility] Primary Care Physician ERIBERTO WOODRUFF Attending Clinician Unavailable Antonia CARTER Admitting Clinician Unavailable Payers Payer Name Policy Type Policy Number Effective Date Expiration Date S ource Problems Condition Condition Condition Status Onset Resolution Last Treating Co mments Source Name Details Category Date Date Treatment Clinician Date Leukocytos Leukocytos Disease Active [facility] 00 [place] Pneumonia Pneumonia Disease Active [facility] - [facility] 00 [place] 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[facility] cell 2-29 [facility] - anemia anemia 00:00: Medical 00 [place] 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[facility] cell 2-28 [facility] - crisis crisis 00:00: Medical 00 [place] Allergies, Adverse Reactions, Alerts Allergy Allergy Status Severity Reaction(s) Onset Inactive Treating Comm ents Source Name Type Date Date Clinician Ondanset Drug Active Nausea And [facility]ney Hcl Intolera Vomiting 2-28 [facility] - (Pf) nce 00:00: Medical 00 [place] morphine DA Active [facility] 3[facility]11 [place] 00:00: d 00 [facility] TEGEDERM DA Active [facility] DRESSING 8-23 [place] 00:00: d 00 [facility] Family History Family Member Diagnosis Comments Start Date Stop Date Source Natural father Sickle cell trait [facility] Natural father Seizures [facility] Natural mother Sickle cell trait [facility] Natural sister Unremarkable [facility] [place] [facility] Natural brother Unremarkable [facility] Social History Social Habit Start Date Stop Date Quantity Comments Source Alcohol intake 2018-08-02 2018-08-02 Current [facility] - 00:00:00 00:00:00 non-drinker of Medical Ce nter alcohol (finding) Tobacco use and 2015-07-10 2015-07-10 Never used JUDITH Arellano kes - exposure 00:00:00 00:00:00 Medical Center Sex [birth year] JUD[facility] - 00:00:00 [facility]:00 [facility] Center Smoking Status Start Date Stop Date Source Never smoker [facility] Medications Ordered Filled Start Stop Current Ordering Indication Dosage Frequency Signature Comments Components Source Medication Medication Date Date Medication? Clinician (SIG) Name Name folic acid Yes folate 2mg QD Take [address] (FOLVITE) 1 3-31 deficiency by mouth [facility] - MG tablet 14:39: daily. Medica l 58 Center penicillin 2018-0 Yes 250mg Take [address] v potassium 3-31 mg by [facility] - (VEETID) 14:39: mouth Medical 250 MG 58 every 12 Center tablet (twelve) hours. HYDROmorpho 2019-0 Yes 8mg Take [address] ne 3-31 by mouth [facility] - (DILAUDID) 14:39: every 6 Medi rita 8 MG tablet 58 (six) Center hours as needed for Pain. apixaban 2019-0 Yes 2.5mg Q.5D Take 2.[address] (ELIQUIS) 3-31 mg by [facility] - 2.5 mg Tab 14:39: mouth 2 Medi rita tablet 58 (two) Center times daily. ALPRAZolam 2019-0 Yes 1mg Take [address] (XANAX) 1 3-31 by mouth 2 Luke s - MG tablet 14:39: (two) Medical 58 times Center daily as needed for Anxiety. folic acid 0 Yes folate 2mg QD Take [address] (FOLVITE) 1 3-31 deficiency by mouth [facility] - MG tablet 14:39: daily. Medica l 58 Center penicillin 2019-0 Yes 250mg Take [address] v potassium 3-31 mg by [facility] - (VEETID) 14:39: mouth Medical 250 MG 58 every 12 Center tablet (twelve) hours. HYDROmorpho 2019-0 Yes 8mg Take [address] ne 3-31 by mouth [facility] - (DILAUDID) 14:39: every 6 Medi rita 8 MG tablet 58 (six) Center hours as needed for Pain. apixaban 2019-0 Yes 2.5mg Q.5D Take 2.[address] (ELIQUIS) 3-31 mg by [facility]ukes - 2.5 mg Tab 14:39: mouth 2 Medi rita tablet 58 (two) Center times daily. ALPRAZolam 2019-0 Yes 1mg Take [address] (XANAX) 1 3-31 by mouth 2 Luke s - MG tablet 14:39: (two) Medical 58 times Center daily as needed for Anxiety. folic acid 2019-0 Yes folate 2mg QD Take [address] (FOLVITE) 1 3-31 deficiency by mouth [facility] - MG tablet 14:39: daily. Medica l 58 Center penicillin 2019-0 Yes 250mg Take [address] v potassium 3-31 mg by [facility] - (VEETID) 14:39: mouth Medical 250 MG 58 every 12 Center tablet (twelve) hours. HYDROmorpho 2019-0 Yes 8mg Take [address] ne 3-31 by mouth [facility] - (DILAUDID) 14:39: every 6 Medi rita 8 MG tablet 58 (six) Center hours as needed for Pain. apixaban 2019-0 Yes 2.5mg Q.5D Take 2.[address] (ELIQUIS) 3-31 mg by [facility]ukes - 2.5 mg Tab 14:39: mouth 2 Medi rita tablet 58 (two) Center times daily. ALPRAZolam 2019-0 Yes 1mg Take [address] (XANAX) 1 3-31 by mouth 2 Luke s - MG tablet 14:39: (two) Medical 58 times Center daily as needed for Anxiety. VITAMIN D2 2019-0 Yes 1{capsu Q7D Take [address] 50,000 unit 2-25 le} capsule by Ariana kes - capsule 00:00: mouth once Medi rita 00 a week. Center VITAMIN D2 2019-0 Yes 1{capsu Q7D Take [address] 50,000 unit 2-25 le} capsule by Ariana kes - capsule 00:00: mouth once Medi rita 00 a week. Center VITAMIN D2 2019-0 Yes 1{capsu Q7D Take [address] 50,000 unit 2-25 le} capsule by Ariana kes - capsule 00:00: mouth once Medi rita 00 a week. Center PROAIR HFA Yes 1{puff} Inhale [address] 90 2-22 puff by [facility]ukes - mcg/actuati 00:00: mouth via M edical on inhaler 00 inhaler Center every 6 (six) hours as needed. PROAIR HFA Yes 1{puff} Inhale [address] 90 2-22 puff by [facility]ukes - mcg/actuati 00:00: mouth via M edical on inhaler 00 inhaler Center every 6 (six) hours as needed. PROAIR HFA Yes 1{puff} Inhale [address] 90 2-22 puff by [facility]ukes - mcg/actuati 00:00: mouth via M edical on inhaler 00 inhaler Center every 6 (six) hours as needed. prochlorper Yes 1{tbl} Take [address] azine 1-14 tablet by [facility]ukes - (COMPAZINE) 00:00: mouth Medic al 10 MG 00 every 8 Center tablet (eight) hours as needed nausea. prochlorper Yes 1{tbl} Take [address] azine 1-14 tablet by [facility]ukes - (COMPAZINE) 00:00: mouth Medic al 10 MG 00 every 8 Center tablet (eight) hours as needed nausea. prochlorper Yes 1{tbl} Take 1 CH I [...] Medical Ce nter VACCINE (#1)] Future Scheduled 2020-01-12 INFLUENZA VACCINE (#1) [facility] - Test 00:00:00 [code = INFLUENZA Medical Ce nter VACCINE (#1)] Future Scheduled 2020-01-12 INFLUENZA VACCINE (#1) [facility] - Test 00:00:00 [code = INFLUENZA Medical Ce nter VACCINE (#1)] Future Scheduled 2012-09-[address] [facility] - Test 00:00:00 malignant neoplasm of Medica l Center cervix (procedure) [code = 404169261] Future Scheduled 2012-09-[address] [facility] - Test 00:00:00 malignant neoplasm of Medica l Center cervix (procedure) [code = 801820773] Future Scheduled 2012-09-[address] [facility] - Test 00:00:00 [facility] [code = 374960319] Future Scheduled [address] - Test 00:00:00 (procedure) [code = [facility] 28383705] Future Scheduled [address] - Test 00:00:00 (procedure) [code = [facility] 32391448] Future Scheduled [address] - Test 00:00:00 (procedure) [code = [facility] 73177488] Future Scheduled 1997-09-[address] [facility] - Test 00:00:00 0-64 YRS (1 of 3 - Medical C enter PCV13) [code = PNEUMOCOCCAL VACCINE 0-64 YRS (1 of 3 - PCV13)] Future Scheduled 1997-09-[address] [facility] - Test 00:00:00 0-64 YRS (1 of 3 - Medical C enter PCV13) [code = PNEUMOCOCCAL VACCINE 0-64 YRS (1 of 3 - PCV13)] Future Scheduled 1997-09-[address] [facility] - Test 00:00:00 0-64 YRS (1 of 3 - Medical C enter PCV13) [code = PNEUMOCOCCAL VACCINE 0-64 YRS (1 of 3 - PCV13)] Encounters Start End Encounter Admission Attending Care Care Encounter Source Date/Time Date/Time Type Type Clinicians Facility Department ID 2019-06-14 2019-06-14 Emergency E [facility] BL [id number] BL 16:16:00 16:16:00 2019-06-09 2019-06-09 Inpatient E SW MED [id number] SW 09:53:00 05:29:00 2019-06-05 2019-06-05 Emergency E MHBL [facility]BL [id number] [facility]BL 00:19:00 00:19:00 2019-04-29 2019-04-29 Emergency E SW [facility] [id number] [facility] 19:58:00 19:58:00 2019-03-26 2019-03-26 Emergency E [facility] [...] Test Comments Results Result Comments Source SARS-COV2/RT-PCR ([facility]) 2019-11-14 17:47:00 Test Item Value Reference Range Interpretation Comme nts SARS-COV2/RT-PCR (test code = 5750219) Negative Not Detected, N egative SARS-COV-2 PERFORMING LAB (test code = 7078763) [facility] [place] Negative results do not preclude SARS-CoV-2 infection [...] of the Act.Fact Sheet for Healthcare Pro viders:https://www.Floc[employer].Kredits/Documents/Xpert%20Xpress%20SARS%20CoV-2/Fact%20Sh eets/302-3802%60DACA-LUV-8%20HEALTHCARE%20PROVIDERS%20FACT%20SHEET.pdfFact Sheet for Healthcare Patients:https://www.[employer].Kredits/Documents/Xpert%20Xpress%20SARS%20CoV-2/Fact%20Sheets/302-3801%20SARS-COV -2%20PATIENT%20FACT%20SHEET.pdfPerforming Laboratory:[place] [address], [place] [address]GBX W/PLT COUNT & AUTO DIFFERENTIAL 2018-08-10 08:25:00 [...] 3438) Received comment: User comments: Slide comments:RETICULOCYTE [id number] 08:06:00 Test Item Value Reference Range Interpretation Comments RETICULOCYTE COUNT PCT (BEAKER) (test 25.0 % 0.5-1.7 H code = 575) CBC W/PLT COUNT & AUTO [id number] 09:27:00 Test Item Value Reference Range Interpretation [...] 3438) Received comment: User comments: Slide comments:RETICULOCYTE [id number] 05:01:00 Test Item Value Reference Range Interpretation Comments RETICULOCYTE COUNT PCT (BEAKER) (test 21.6 % 0.5-1.7 H code = 575) CBC W/PLT COUNT & AUTO [id number] 15:17:00 Test Item Value Reference Range Interpretation [...] K/uL 0.00-0.00 H (CELLAVISION)(BEAKER) (test code = 4818) TOTAL COUNTED (BEAKER) (test code 100 = [...] H (BEAKER) (test code = 413) RETICULOCYTE [id number] 08:44:00 Test Item Value Reference Range Interpretation Comments RETICULOCYTE COUNT PCT (BEAKER) (test 23.8 % 0.5-1.7 H code = 575) BLOOD [id number] 14:01:00 Test Item Value Reference Range Interpretation Comments CULTURE (BEAKER) (test No growth in 5 days code = 1095) BLOOD [id number] 12:01:00 Test Item Value Reference Range Interpretation Comments CULTURE (BEAKER) (test No growth in 5 days code = 1095) CBC W/PLT COUNT & AUTO [id number] 11:38:00 Test Item Value Reference Range Interpretation [...] 3438) Received comment: User comments: Slide comments:RETICULOCYTE [id number] 07:44:00 Test Item Value Reference Range Interpretation Comments RETICULOCYTE COUNT PCT (BEAKER) (test 27.0 % 0.5-1.7 H code = 575) RETICULOCYTE [id number] 07:19:00 Test Item Value Reference Range Interpretation Comments RETICULOCYTE COUNT PCT (BEAKER) (test 22.7 % 0.5-1.7 H code = 575) CBC W/PLT COUNT & AUTO [id number] 12:07:00 Test Item Value Reference Range Interpretation [...] 3438) Received comment: User comments: Slide comments:RETICULOCYTE [id number] 06:14:00 Test Item Value Reference Range Interpretation Comments RETICULOCYTE COUNT PCT (BEAKER) (test 21.9 % 0.5-1.7 H code = 575) [id number] 06:02:00 Test Item Value Reference Range Interpretation Comments PHOSPHORUS (BEAKER) (test code = 3.8 mg/dL 2.3-4.7 604) [id number] 06:02:00 Test Item Value Reference Range Interpretation Comments MAGNESIUM (BEAKER) (test code = 1.8 mg/dL 1.6-2.6 627) BASIC METABOLIC [id number] 06:02:00 Test Item Value Reference Range Interpretation [...] Specimen moderately ictericCBC W/PLT COUNT & AUTO [id number] 09:09:00 Test Item Value Reference Range Interpretation [...] = 3438) Received comment: User comments: Slide comments:[id number] 04:11:00 Test Item Value Reference Range Interpretation Comments PHOSPHORUS (BEAKER) (test code = 3.3 mg/dL 2.3-4.7 604) [id number] 04:11:00 Test Item Value Reference Range Interpretation Comments MAGNESIUM (BEAKER) (test code = 1.6 mg/dL 1.6-2.6 627) BASIC METABOLIC [id number] 04:11:00 Test Item Value Reference Range Interpretation [...] FOR DIALYSIS PATIEN TS. Specimen slightly ictericRETICULOCYTE [id number] 03:54:00 Test Item Value Reference Range Interpretation Comments RETICULOCYTE COUNT PCT (BEAKER) (test 20.4 % 0.5-1.7 H code = 575) CBC W/PLT COUNT & AUTO [id number] 18:30:00 Test Item Value Reference Range Interpretation [...] = 413) CBC W/PLT COUNT & AUTO [id number] 10:51:00 Test Item Value Reference Range Interpretation [...] 3438) Received comment: User comments: Slide comments:RETICULOCYTE [id number] 10:08:00 Test Item Value Reference Range Interpretation Comments RETICULOCYTE COUNT PCT (BEAKER) (test 14.4 % 0.5-1.7 H code = 575) CBC W/PLT COUNT & AUTO [id number] 09:30:00 Test Item Value Reference Range Interpretation [...] = 3438) Received comment: User comments: Slide comments:[id number] 03:32:00 Test Item Value Reference Range Interpretation Comments PHOSPHORUS (BEAKER) (test code = 3.5 mg/dL 2.3-4.7 604) [id number] 03:32:00 Test Item Value Reference Range Interpretation Comments MAGNESIUM (BEAKER) (test code = 1.8 mg/dL 1.6-2.6 627) BASIC METABOLIC [id number] 03:32:00 Test Item Value Reference Range Interpretation [...] ictericCT, CHEST WITH IV CONTRAST- PE TEST [id number] 14:01:00FINAL REPORT CT scan of the chest. [...] MDReport Verified Date/Time: 08/02/2018 14:01:29 Reading Location: [facility] B1 C013X Ortho Consult Reading Room URINALYSIS W/ REFLEX URINE [id number] 11:27:00 Test Item Value Reference Range Interpretation [...] 516) SOURCE(BEAKER) (test code = 2795) SCREEN, [id number] 11:15:00 Test Item Value Reference Range Interpretation Comments TEST URINE (BEAKER) (test Negative code = 583) RETICULOCYTE [id number] 04:43:00 Test Item Value Reference Range Interpretation Comments RETICULOCYTE COUNT PCT (BEAKER) (test 13.2 % 0.5-1.7 H code = 575) RAD, CHEST, 2 [id number] 03:54:00Reason for exam:->SICKLE CELL PAIN CRISISIs the [...] Ferris MDReport Verified Date/Time: 08/02/2018 03:54:52Reading Location: [address] Reading Room CBC W/PLT COUNT & [...] (BEAKER) (test code = 417) COMPREHENSIVE METABOLIC [id number] 02:42:00 Test Item Value Reference Range Interpretation [...] 8.5-10.5 (test code = 697) AST (SGOT) (Benu NetworksAKER) 25 U/L 5-40 (test code = 353) ALT (SGPT) (Benu NetworksAKER) 18 U/L 5-50 (test code = 347) EGFR (Benu NetworksAKER) (test 221 ESTIMATE D GFR IS code = 1092) mL/min/1.73 sq NOT ACCURA TE m CREATININE CLEARANCE IN PREDICTING GLOMERULAR FILTRATION RATE . ESTIMATED GFR I S NOT APPLICABLE FOR DIALYSIS PATIEN TS.
[2021-01-22] MEDS ORDERED: HYDROMORPHONE HCL 1 MG/ML INJ ONE ×3 (02:10→07:09)
[2021-01-22] MEDS ORDERED: NA CHLORIDE 0.9% 1,000 ML ONE (02:10)
[2021-01-22] MEDS ORDERED: METOCLOPRAMIDE 10 MG/2mL INJ ONE (02:39)
[2021-01-22 03:59] LABS: Absolute Lymphocytes (CBC) 1.4 K/uL (0.7-4.9); Basophils % 1.5 % (0-1.3); Hematocrit 22.7 % (36.0-45.0); Lymphocytes % 11.6 % (15.3-44.8); MPV 8.5 fL (7.6-11.3); RBC Red Blood Cell Count 2.41 M/uL (3.86-4.86)
--- NOTE | 2021-01-22 06:29 | EDPHYS ---
Physician Documentation [facility] Name: Gume Ortega Age: 30 yrs Sex: Female : 1990 Arrival Date: 01/22/2021 Time: 00:05 Bed 24 Private MD: ED Physician Gilbert Hassan HPI: 01/22 01:45 This 30 yrs old Black Female presents to ER via Ambulatory with complaints of Chest cp Pain, Sickle Cell Crisis. 01:45 The patient or guardian reports chest pain that is located primarily in the substernal cp area. 01:45 The pain does not radiate. Associated signs and symptoms: Pertinent positives: cp shortness of breath, Pertinent negatives: abdominal pain, cough, diaphoresis, lower extremity pain, lower extremity swelling, vomiting. 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 - Social history:: Smoking status: Patient denies any tobacco usage or history of. Patient uses street drugs, marijuana. ROS: 01:50 Constitutional: Negative for body aches, chills, fever, poor PO intake. cp 01:50 Eyes: Negative for injury, pain, redness, and discharge. cp 01:50 Cardiovascular: Positive for chest pain. 01:50 Respiratory: Negative for cough, shortness of breath, wheezing. 01:50 Abdomen/GI: Positive for nausea, Negative for abdominal pain, vomiting, diarrhea, constipation. 01:50 Back: Negative for radiated pain. cp 01:50 Neuro: Negative for altered mental status, headache, syncope, weakness. 01:50 All other systems are negative. Exam: 01:55 Constitutional: The patient appears in no acute distress, alert, awake, cp non-diaphoretic, non-toxic, well developed, well nourished, uncomfortable. 01:55 Head/Face: Normocephalic, atraumatic. cp 01:55 Eyes: Periorbital structures: appear normal, Conjunctiva: normal, no exudate, no injection, Sclera: no appreciated abnormality, Lids and lashes: appear normal, bilaterally. 01:55 ENT: External ear(s): are unremarkable, Nose: is normal, Mouth: Lips: moist, Oral mucosa: moist, Posterior pharynx: Airway: no evidence of obstruction, patent. 01:55 Chest/axilla: Palpation: crepitus, is not appreciated. 01:55 Cardiovascular: Rate: normal, Edema: is not appreciated, JVD: is not appreciated. 01:55 Respiratory: the patient does not display signs of respiratory distress, Respirations: shallow respirations, that is mild, Breath sounds: are clear throughout, no decreased breath sounds, no stridor, no wheezing. 01:55 Abdomen/GI: Inspection: abdomen appears normal, Palpation: abdomen is soft and non-tender, in all quadrants. 01:55 Back: pain, is absent, ROM is normal. cp 01:55 Neuro: Orientation: to person, place \T\ time. Mentation: is normal. cp 03:57 ECG was reviewed by the Attending Physician. cp Vital Signs: 00:59 BP 117 / 61; Pulse 99; Resp 18; Temp 100.0(O); Pulse Ox 98% on R/A; Weight 70.76 kg; em Height 5 ft. 2 in. (157.48 cm); 07:12 BP 110 / 68; Pulse 93; Resp 18; Pulse Ox 96% on R/A; lh3 00:59 Body Mass Index 28.53 (70.76 kg, 157.48 cm) em MDM: 01:39 Patient medically screened. cp 04:20 Transition of care: After a detail discussion of the patient's case, care is cp transferred to Gilbert Hassan MD. 04:20 Data reviewed: vital signs, nurses notes, lab test result(s). 01/22 01:35 Order name: CBC with Diff 01/22 04:20 Interpretation: Normal except: WBC 12.10; RBC 2.41; HGB 7.8; HCT 22.7; RDW 16.8; LYM% cp 11.6; MN% 24.4; BASO% 1.5; MNA 2.9. 01/22 01:35 Order name: XRAY Chest (1 view) 01/22 05:38 Order name: SARS-COV-2 RT PCR EDMS 01/22 01:35 Order name: EKG; Complete Time: 01:35 cp 01/22 01:35 Order name: Cardiac monitoring; Complete Time: 01:50 cp 01/22 01:35 Order name: EKG - Nurse/Tech; Complete Time: 04:39 cp 01/22 01:35 Order name: IV Saline Lock; Complete Time: 01:51 cp 01/22 01:35 Order name: Labs collected and sent; Complete Time: 01:51 cp 01/22 01:35 Order name: O2 Per Protocol; Complete Time: 01:51 cp 01/22 01:35 Order name: O2 Sat Monitoring; Complete Time: 01:51 cp EC:57 Rate is 78 beats/min. Rhythm is regular. NE interval is normal. QRS interval is normal. cp QT interval is normal. T waves are Inverted in lead aVR. Interpreted by me. Reviewed by me. Administered Medications: 01:50 Drug: Dilaudid (HYDROmorphone) 1 mg Route: IVP; Site: Port-a-cath; 3 04:36 Follow up: Response: No adverse reaction lh3 01:50 Drug: NS 0.9% 1000 ml Route: IV; Rate: 1 bolus; Site: Port-a-cath; lh3 02:40 Drug: Reglan (metoCLOPramide) 10 mg Route: IVP; Site: Port-a-cath; lh3 04:36 Follow up: Response: No adverse reaction lh3 03:55 Drug: Dilaudid (HYDROmorphone) 1 mg Route: IVP; Site: Port-a-cath; 3 05:05 Follow up: Response: No adverse reaction lh3 06:47 Drug: Dilaudid (HYDROmorphone) 1 mg Route: IVP; Site: Port-a-cath; lh3 06:49 Drug: HEParin Flush (100 units/mL) 500 units Route: IVP; Site: Port-a-cath; 3 Disposition: 01/23 06:46 Co-signature as Attending Physician, Gilbert Hassan MD I agree with the assessment and tw4 plan of care. Disposition Summary: 01/22/21 06:28 Discharge Ordered Location: Home tw4 Problem: new tw4 Symptoms: have improved tw4 Condition: Stable tw4 Diagnosis - Other sickle-cell disorders with crisis tw4 Followup: tw4 - With: Private Physician - When: Upon discharge from the Emergency Department - Reason: Recheck today's complaints, Continuance of care, Re-evaluation by your physician Discharge Instructions: - Discharge Summary Sheet tw4 - Sickle Cell Anemia, Adult tw4 Forms: - Medication Reconciliation Form tw4 - Thank You Letter tw4 - Antibiotic Education tw4 - Prescription Opioid Use 4 Signatures: Dispatcher [employer] Haile Tyler, RN RN em Nelson Michaud PA PA cp Wadley, Terrence, MD MD tw4 Hemalatha Colby RN RN lh3 Corrections: (The following items were deleted from the chart) 01/22 04:35 01:39 CORONAVIRUS+MR.LAB.BRZ ordered. EDMO EDMS
--- NOTE | 2021-01-22 06:29 | ER ---
Nurse's Notes [facility] Name: Gume Ortega Age: 30 yrs Sex: Female : 1990 Arrival Date: 01/22/2021 Time: 00:05 Bed 24 Private MD: Diagnosis: Other sickle-cell disorders with crisis Presentation: 01/22 00:59 Chief complaint: Patient states: chest pain that started few hours ago, hx of sickle em cell, also reports nausea, denies fever or cough. Coronavirus screen: Vaccine status: Patient reports being unvaccinated. Ebola Screen: Patient negative for fever greater than or equal to 101.5 degrees Fahrenheit, and additional compatible Ebola Virus Disease symptoms Patient denies exposure to infectious person. Patient denies travel to an Ebola-affected area in the 21 days before illness onset. No symptoms or risks identified at this time. Initial Sepsis Screen: Does the patient meet any 2 criteria? HR > 90 bpm. No. Patient's initial sepsis screen is negative. Does the patient have a suspected source of infection? No. Patient's initial sepsis screen is negative. Risk Assessment: Do you want to hurt yourself or someone else? Patient reports no desire to harm self or others. Onset of symptoms was January 22, 2021. 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 - Social history:: Smoking status: Patient denies any tobacco usage or history of. Patient uses street drugs, marijuana. Screenin:00 Abuse screen: Denies threats or abuse. Nutritional screening: No deficits noted. lh3 Tuberculosis screening: No symptoms or risk factors identified. Fall Risk None identified. Vital Signs: 00:59 BP 117 / 61; Pulse 99; Resp 18; Temp 100.0(O); Pulse Ox 98% on R/A; Weight 70.76 kg; em Height 5 ft. 2 in. (157.48 cm); 07:12 BP 110 / 68; Pulse 93; Resp 18; Pulse Ox 96% on R/A; lh3 00:59 Body Mass Index 28.53 (70.76 kg, 157.48 cm) ED Course: 00:05 Patient arrived in ED. cf2 01:00 Triage completed. em 01:00 Arm band placed on. em 01:34 Nelson Michaud PA is PHCP. cp 01:34 Gilbert Hassan MD is Attending Physician. cp 01:43 Hemalatha Colby RN is Primary Nurse. lh3 01:58 XRAY Chest (1 view) In Process Unspecified. EDMS 05:00 environmental monitoring technician on. Pulse ox on. NIBP on. lh3 05:00 No provider procedures requiring assistance completed. Inserted port-a-cath. Patient lh3 maintains SpO2 saturation greater than 95% on room air. 07:12 Patient has correct armband on for positive identification. Placed in gown. Bed in low lh3 position. Call light in reach. Side rails up X 1. Side rails up X2. Administered Medications: 01:50 Drug: Dilaudid (HYDROmorphone) 1 mg Route: IVP; Site: Port-a-cath; 3 04:36 Follow up: Response: No adverse reaction lh3 01:50 Drug: NS 0.9% 1000 ml Route: IV; Rate: 1 bolus; Site: Port-a-cath; 3 02:40 Drug: Reglan (metoCLOPramide) 10 mg Route: IVP; Site: Port-a-cath; lh3 04:36 Follow up: Response: No adverse reaction 3 03:55 Drug: Dilaudid (HYDROmorphone) 1 mg Route: IVP; Site: Port-a-cath; 3 05:05 Follow up: Response: No adverse reaction lh3 06:47 Drug: Dilaudid (HYDROmorphone) 1 mg Route: IVP; Site: Port-a-cath; 3 06:49 Drug: HEParin Flush (100 units/mL) 500 units Route: IVP; Site: Port-a-cath; 3 Outcome: 05:00 Discharged to home via wheelchair. 3 05:00 Condition: stable 05:00 Discharge instructions given to patient, Instructed on discharge instructions, follow up and referral plans. Demonstrated understanding of instructions, follow-up care. 06:28 Discharge ordered by . tw4 07:19 Patient left the ED. 3 Signatures: Dispatcher [employer] Haile Tyler, RN RN Nelson Freeman PA PA cp Wadley, Terrence, MD MD tw4 Myles Winston 2 Hemalatha Colby, SHYAM RN 3
[2021-01-22] MEDS ORDERED: HEPARIN 500 UNIT/5 ML SYR IV ONE (07:13)
[2021-01-22 07:24] VITALS: TEMP 100
[2021-01-22 07:25] VITALS: BP 110/68; O2SAT 96
--- NOTE | 2021-01-22 12:13 | RAD REPORT ---
EXAM DESCRIPTION: RAD - Chest Single View - 01/22/2021 1:59 am CLINICAL HISTORY: CHEST PAIN Chest pain. COMPARISON: Chest Single View dated 12/21/2020; Chest Single View dated 11/24/2020; Chest Single View dated 10/12/2020; Chest Single View dated 09/29/2020 FINDINGS: Portable technique limits examination quality. The lungs are grossly clear. The heart is normal in size. Left-sided port catheter has tip in the rig ht [facility]. IMPRESSION: No acute intrathoracic process suspected.
== END 2021-01-22 07:19 | disposition home or self-care (01) ==
LOC: ER 00:03
DX: U07.1 COVID-19 (principal); D57.819 Other sickle-cell disorders with crisis, unspecified; Z88.2 Allergy status to sulfonamides; Z88.5 Allergy status to narcotic agent; Z88.8 Allergy status to other drugs, medicaments and biological substances
CPT/HCPCS: 93005; 85025; 36415; 71045; 96375; 96374; 99284; U0003; J2765; J1170 ×3; J1642; J7030

== ENCOUNTER 2021-02-14 12:41 | Inpatient (IN) | payer OTHER ==
[2021-02-14] MEDS ORDERED: NA CHLORIDE 0.9% 1,000 ML ONE (13:53)
[2021-02-14] MEDS ORDERED: METOCLOPRAMIDE 10 MG/2mL INJ ONE (14:15)
[2021-02-14] MEDS ORDERED: HYDROMORPHONE HCL 2 MG/ML inj ONE (14:16)
[2021-02-14 14:31] LABS: BUN Blood Urea Nitrogen 5 mg/dL (7-18); Bicarbonate 24 mmol/L (21-32); Glucose Level 91 mg/dL (74-106); Potassium 3.7 mmol/L (3.5-5.1); Sodium Level 141 mmol/L (136-145)
[2021-02-14 14:37] LABS: Basophils % 1.3 % (0-1.3); Hematocrit 28.4 % (36.0-45.0); MPV 8.9 fL (7.6-11.3); RBC Red Blood Cell Count 3.05 M/uL (3.86-4.86)
[2021-02-14] MEDS ORDERED: HYDROMORPHONE HCL 1 MG/ML INJ ONE ×3 (14:54→21:13)
[2021-02-14] MEDS ORDERED: NA CHLORIDE 0.9% 50 ML ONE (14:57)
--- NOTE | 2021-02-14 15:34 | EDPHYS ---
Physician Documentation [facility] Name: Gume Ortega Age: 30 yrs Sex: Female : 1990 Arrival Date: 02/14/2021 Time: 12:43 Bed 11 Private MD: Neil Benitez E ED Physician Ariel Moreno HPI: 02/14 15:47 This 30 yrs old Black Female presents to ER via Ambulatory with complaints of Sickle kb Cell Crisis. 15:47 Pt reports she is having a sickle cell crisis. States she has had pain to entire body kb since this morning. Onset: The symptoms/episode began/occurred this morning. Severity of symptoms: At their worst the symptoms were moderate severe in the emergency department the symptoms are unchanged. The patient has experienced similar episodes in the past. The patient has not recently seen a physician. Historical: - Allergies: 12:44 Morphine; sv 12:44 Sulfa (Sulfonamide Antibiotics); sv 12:44 Zofran; sv - PMHx: 12:44 blood clot in lung; Sickle Cell; sv - PSHx: 12:44 Port placed to Left Chest; sv - Immunization history:: Adult Immunizations up to date. - Social history:: Smoking status: Patient denies any tobacco usage or history of. Patient uses street drugs, marijuana. ROS: 15:46 Constitutional: Negative for fever, chills, and weight loss. kb 15:46 Constitutional: Positive for pain all over. 15:46 All other systems are negative. Exam: 15:46 Head/Face: Normocephalic, atraumatic. ENT: Moist Mucous membranes Respiratory: kb Respirations even and unlabored. No increased work of breathing, no retractions or nasal flaring. Skin: Warm, dry with normal turgor. Normal color. MS/ Extremity: Pulses equal, no cyanosis. Neurovascular intact. Full, normal range of motion. Neuro: Awake and alert, GCS 15, oriented to person, place, time, and situation. Moves all extremities. Normal gait. Psych: Awake, alert, with orientation to person, place and time. Behavior, mood, and affect are within normal limits. 15:46 Constitutional: The patient appears alert, awake, in obvious pain. Vital Signs: 12:45 BP 125 / 58; Pulse 78; Resp 20; Temp 97.3; Pulse Ox 98% ; Weight 70.76 kg; Height 5 ft. sv 2 in. (157.48 cm); Pain 10/10; 14:20 Pain 8/10; oh 19:10 BP 99 / 63; Pulse 63; Resp 18; Pulse Ox 99% on R/A; oh 20:51 BP 91 / 67; Pulse 64; Resp 18; Temp 98.2; Pulse Ox 98% ; wr 12:45 Body Mass Index 28.53 (70.76 kg, 157.48 cm) sv MDM: 13:07 Patient medically screened. kb 15:45 Data reviewed: vital signs, nurses notes. Data interpreted: Pulse oximetry: on room air kb is 98 %. Interpretation: normal. Counseling: I had a detailed discussion with the patient and/or guardian regarding: the historical points, exam findings, and any diagnostic results supporting the discharge/admit diagnosis, lab results, the need for further work-up and treatment in the hospital. Physician consultation: was called at 15:45, Discussed case with CANDELARIO German who is doing admissions for hospitalist. Pt will be admitted to [facility]. 02/14 13:07 Order name: CBC with Diff kb 02/14 13:07 Order name: Basic Metabolic Panel kb 02/14 13:07 Order name: Retic Count kb 02/14 13:08 Order name: CBC with Automated Diff EDMS 02/14 13:08 Order name: Basic Metabolic Panel; Complete Time: 14:36 EDMS 02/14 13:08 Order name: Retic Count; Complete Time: 15:45 EDMS 02/14 15:37 Order name: Manual Differential EDMS 02/14 16:02 Order name: SARS-COV-2 RT PCR; Complete Time: 17:15 EDMS 02/14 17:46 Order name: T4 Free EDMS 02/14 17:46 Order name: Thyroid Stimulating Hormone EDMS 02/14 17:47 Order name: Urinalysis EDMS 02/14 17:47 Order name: Basic Metabolic Panel EDMS 02/14 17:47 Order name: Basic Metabolic Panel EDMS 02/14 13:07 Order name: IV Start; Complete Time: 13:58 kb 02/14 17:46 Order name: Regular EDMS 02/14 17:47 Order name: CBC with Automated Diff EDMS 02/14 17:47 Order name: CBC with Automated Diff EDMS 02/14 17:47 Order name: Troponin I EDMS 02/14 17:47 Order name: Troponin I EDMS Administered Medications: 13:47 Drug: NS 0.9% 1000 ml Route: IV; Rate: 1000 ml; Site: Port-a-cath; oh 13:57 Drug: Dilaudid (HYDROmorphone) 1 mg Route: IVP; Site: Port-a-cath; oh 14:20 Follow up: Pain 8/10 Adult; Response: No adverse reaction oh 13:57 Drug: Reglan (metoCLOPramide) 10 mg Route: IVP; Site: Port-a-cath; oh 14:21 Follow up: Response: No adverse reaction oh 14:35 Drug: Dilaudid (HYDROmorphone) 1 mg Route: IVP; Site: Port-a-cath; oh 17:23 Drug: Dilaudid (HYDROmorphone) 1 mg Route: IVP; Site: Port-a-cath; oh Disposition Summary: 02/14/21 15:33 Hospitalization Ordered Hospitalization Status: Observation kb Provider: Apolinar Castrejon Location: Telemetry/MedSurg (observation) kb Condition: Stable kb Symptoms: are unchanged kb Bed/Room Type: Standard kb Problem: an acute exacerbation(02/14/21 15:33) kb Room Assignment: 223(02/14/21 20:01) tl1 Diagnosis - Elevated white blood cell count kb - Other sickle-cell disorders with crisis kb Forms: - Medication Reconciliation Form kb - SBAR form kb Addendum: 02/17/2021 08:39 Co-signature as Attending Physician, Ariel Moreno MD. r n 08:39 I agree with the assessment and plan of care. Attestation: The patient's history, exam r n findings, diagnostics, and a summary of any interventions or procedures was reviewed in detail with Melissa OCONNELL. Signatures: Dispatcher [employer] FROILANME Melissa Vazquez FNP-C FNP-Ckb Verde, Stephanie RN Ariel Valle MD MD rn Lasagna, Tonya, RN RN tl1 Louis Lackey Oneka, RN RN oh Corrections: (The following items were deleted from the chart) 02/14 15:33 15:33 chronic kb kb 16:02 15:50 CORONAVIRUS+.BRZ ordered. EDMS EDMS 19:57 15:33 kb tl1 20:01 19:57 204 tl1 tl1
--- NOTE | 2021-02-14 15:34 | ER ---
Nurse's Notes [facility] Name: Gume Ortega Age: 30 yrs Sex: Female : 1990 Arrival Date: 02/14/2021 Time: 12:43 Bed 11 Private MD: Neil Benitez E Diagnosis: Elevated white blood cell count;Other sickle-cell disorders with crisis Presentation: 02/14 12:44 Chief complaint: Patient states: sickle cell crisis since 0600 today. Coronavirus sv screen: Vaccine status: Patient reports being unvaccinated. Client denies travel out of the [place] in the last 14 days. Ebola Screen: No symptoms or risks identified at this time. Risk Assessment: Do you want to hurt yourself or someone else? Patient reports no desire to harm self or others. Onset of symptoms was February 14, 2021. 12:44 Method Of Arrival: Ambulatory sv 12:44 Acuity: MARILUZ 3 sv 12:45 Initial Sepsis Screen: Does the patient meet any 2 criteria? No. Patient's initial sv sepsis screen is negative. Does the patient have a suspected source of infection? No. Patient's initial sepsis screen is negative. Triage Assessment: 12:46 General: Appears in no apparent distress. uncomfortable, Behavior is cooperative, sv restless. Neuro: Level of Consciousness is awake, alert, obeys commands, Gait is steady. Respiratory: Respiratory effort is even, unlabored. Historical: - Allergies: 12:44 Morphine; sv 12:44 Sulfa (Sulfonamide Antibiotics); sv 12:44 Zofran; sv - PMHx: 12:44 blood clot in lung; Sickle Cell; sv - PSHx: 12:44 Port placed to Left Chest; sv - Immunization history:: Adult Immunizations up to date. - Social history:: Smoking status: Patient denies any tobacco usage or history of. Patient uses street drugs, marijuana. Screenin:53 Abuse screen: Denies. Nutritional screening: No deficits noted. Tuberculosis screening: wr No symptoms or risk factors identified. Fall Risk None identified. Assessment: 13:58 Pain: Complains of pain in heand and generalize body ache, hx of sickle cell. oh 19:10 Reassessment: pt awaiting bed, report given to night rn. oh Vital Signs: 12:45 BP 125 / 58; Pulse 78; Resp 20; Temp 97.3; Pulse Ox 98% ; Weight 70.76 kg; Height 5 ft. sv 2 in. (157.48 cm); Pain 10/10; 14:20 Pain 8/10; oh 19:10 BP 99 / 63; Pulse 63; Resp 18; Pulse Ox 99% on R/A; oh 20:51 BP 91 / 67; Pulse 64; Resp 18; Temp 98.2; Pulse Ox 98% ; wr 12:45 Body Mass Index 28.53 (70.76 kg, 157.48 cm) sv ED Course: 12:43 Patient arrived in ED. mr 12:43 Neil Benitez MD is Private Physician. mr 12:44 Triage completed. sv 12:44 Arm band placed on. sv 12:47 Yoav Luther, SHYAM is Primary Nurse. oh 13:07 Melissa Vazquez FNP-C is PHCP. kb 13:07 Ariel Moreno MD is Attending Physician. kb 13:58 Accessed Port-a-Cath. Blood collected. oh 14:38 Notified Nurse Practitioner and/or Physician Media Developer of a critical lab result(s), sv [id number]-[id number]. 15:33 Apolinar Castrejon MD is Hospitalizing Provider. kb 20:54 Patient has correct armband on for positive identification. wr 20:55 Patient have Right Chem Port. wr Administered Medications: 13:47 Drug: NS 0.9% 1000 ml Route: IV; Rate: 1000 ml; Site: Port-a-cath; oh 13:57 Drug: Dilaudid (HYDROmorphone) 1 mg Route: IVP; Site: Port-a-cath; oh 14:20 Follow up: Pain 8/10 Adult; Response: No adverse reaction oh 13:57 Drug: Reglan (metoCLOPramide) 10 mg Route: IVP; Site: Port-a-cath; oh 14:21 Follow up: Response: No adverse reaction oh 14:35 Drug: Dilaudid (HYDROmorphone) 1 mg Route: IVP; Site: Port-a-cath; oh 17:23 Drug: Dilaudid (HYDROmorphone) 1 mg Route: IVP; Site: Port-a-cath; oh Outcome: 15:33 Decision to Hospitalize by Provider. kb 20:54 Condition: stable wr 20:55 Admitted to Med/surg wr 21:20 Patient left the ED. wr Signatures: Melissa Vazquez, ANISH LEONARD-Brandi Orozco, RN RN Laura Collado Willena wr Harriott, Oneka, RN RN oh Corrections: (The following items were deleted from the chart) 12:47 12:45 Pulse 78bpm; Resp 20bpm; Pulse Ox 98%; Temp 97.3F; 70.76 kg; Height 5 ft. 2 in.; sv BMI: 28.5; Pain 10/10; sv
[2021-02-14 15:37] LABS: Anisocytosis 1+; Blood Morphology Comment NOTED (NOT SEEN); Platelet Estimate INCR; Poikilocytosis 1+; Polychromasia SLIGHT; Target Cells 1+
[2021-02-14] MEDS ORDERED: LABETALOL 20 MG/4ML SYRINGE IV PRN (17:40)
[2021-02-14] MEDS ORDERED: ONDANSETRON 4 MG/2 ML VIAL IV PRN (17:43)
[2021-02-14] MEDS ORDERED: HYDROCODONE/APAP 10/325 TAB PO PRN (17:43)
[2021-02-14] MEDS ORDERED: ACETAMINOPHEN 500 MG TAB PO PRN (17:43)
[2021-02-14] MEDS ORDERED: ALPRAZOLAM 1 MG TABLET PO PRN (17:43)
[2021-02-14] MEDS ORDERED: HYDROMORPHONE HCL 1 MG/ML INJ IV PRN (17:48)
--- NOTE | 2021-02-14 17:49 | P.HP ---
Certification for Inpatient Patient admitted to: Inpatient With expected LOS: >2 Midnights Patient will require the following post-hospital care: None Practitioner: I am a practitioner with admitting privileges, knowledge of patient current condition, hospital course, and medical plan of care. Services: Services provided to patient in accordance with Admission requirements found in Title 42 Section 412.3 of the Code of Federal Regulations Patient History Date of Service: 02/15/21 Reason for admission: Sickle cell crisis History of Present Illness: Patient is 30-year-old female with a past medical history significant for PE, sickle cell anemia, cannabis use disorder who presents with complaint of generalized body pains onset this morning. Patient rated pain as 10/10 and described as aching in quality. Patient reports associated signs and symptoms of cough. Patient denies any other signs or symptoms. Symptoms are aggravated or relieved. Patient decided to present to the hospital due to worsening symptoms. Allergies ondansetron HCl [From Zofran] Allergy (Mild, Verified 08/02/12 16:51) Nausea/Vomiting morphine Allergy (Verified 12/21/20 21:22) Nausea/Vomiting Sulfa (Sulfonamide Antibiotics) Allergy (Verified 12/21/20 21:22) Nausea/Vomiting Home Medications: Folic Acid [Folic Acid*] 1 mg PO DAILY 08/01/12 Promethazine Tab [Phenergan*] 25 mg PO Q4H PRN #30 tab 11/15/19 ALPRAZolam [Xanax*] 1 mg PO BIDP PRN 09/30/20 Cholecalciferol (Vitamin D3) [Vitamin D 1000 Iu Tab*] 1,000 unit PO EVERY 7TH DAY 09/30/20 Apixaban [Eliquis *] 2.5 mg PO BID #60 tablet 12/21/20 Hydromorphone HCl [Dilaudid] 8 mg PO TID PRN 30 Days #60 tablet 12/21/20 - Past Medical/Surgical History Diabetic: No -: sickle cell -: pneumonia -: port-a-cath placement - Family History Mother -: Other (see notes) Notes: sickle cell trait Father -: Other (see notes) Notes: sickle cell trait - Social History Smoking Status: Current every day smoker Smoking therapy provided: Yes Patient receptive to therapy: Yes Alcohol use: Yes CD- Drugs: No Caffeine use: Yes Review of Systems General: As per HPI Eyes: Unremarkable ENT: Unremarkable Respiratory: Cough Cardiovascular: Unremarkable Gastrointestinal: Unremarkable Genitourinary: Unremarkable Musculoskeletal: Other (Generalized body pain) Integumentary: Unremarkable Lymphatics: Unremarkable Physical Examination - Physical Exam General: Alert, In no apparent distress HEENT: Atraumatic, PERRLA, Mucous membr. moist/pink, EOMI, Sclerae nonicteric Neck: Supple, 2+ carotid pulse no bruit, No LAD, Without JVD or thyroid abnormality Respiratory: Clear to auscultation bilaterally, Normal air movement Cardiovascular: Regular rate/rhythm, Normal S1 S2 Gastrointestinal: Normal bowel sounds, No tenderness Musculoskeletal: Tenderness Integumentary: No rashes, No breakdown Neurological: Normal gait, Normal speech, Normal tone, Normal affect Lymphatics: No axilla or inguinal lymphadenopathy - Studies Laboratory Data (last 24 hrs) 02/14/21 13:53: Sodium 141, Potassium 3.7, BUN 5 L, Creatinine 0.43 L, Glucose 91 02/14/21 13:53: WBC 21.80 H*, Hgb 9.9 L, Hct 28.4 L, Plt Count 527 H Assessment and Plan - Plan --Sickle cell crisis. Patient started on IV hydration. Continue home medications. --Acute pain. We will manage pain with current pain medication regimen --Leukocytosis. Chronic. Blood cultures to rule out any infectious process. Co ntinue supportive care. --Sickle cell anemia. H&H stable. We will continue to monitor hemoglobin and transfuse if less than 7. --Cannabis use disorder. Patient counseled on drug cessation. --Anxiety disorder. Xanax as needed. --History of PE. Continue Eliquis. --DVT prophylaxis with Eliquis I have had discussion about advanced directives with the patient during this hospital admission. Addressed code status and goals of care. Spent more than 30 minutes. Case discussed withpatient and nurse. The following document was completed using voice recognition software. This can produce farm demonstrator errors that can at times significantly distort words and phrases. Please interpret any aspect of the note that is nonsensical in light of this fact. Discharge Plan: Home Plan to discharge in: 48 Hours - Advance Directives Does patient have a Living Will: No Does patient have a Durable POA for Healthcare: No - Code Status/Comfort Care Code Status Assessed: Yes Code Status: Full Code Physician Review: Patient Assessed, Agree with Above Assessment and Plan Critical Care: No
[2021-02-14 18:24] LABS: Thyroid Stimulating Hormone 0.374 uIU/mL (0.360-3.740)
[2021-02-14] MEDS: HYDROMORPHONE HCL 1 MG/ML INJ IV PRN (21:00)
[2021-02-14] MEDS ORDERED: ONDANSETRON 4 MG/2 ML VIAL ONE (21:13)
[2021-02-14] MEDS ORDERED: POTASSIUM CL SA 10 MEQ TAB PO ONE (22:05)
[2021-02-14 22:15] VITALS: BMI 27.6
[2021-02-14] MEDS: APIXABAN 2.5 MG TABLET PO SCH (22:19)
[2021-02-14] MEDS: NA CHLORIDE 0.9% 1,000 ML IV SCH (22:19)
[2021-02-15] MEDS: PROMETHAZINE INJ 25 MG/ML AMP IV PRN ×4 (00:14→21:59)
[2021-02-15] MEDS: HYDROMORPHONE HCL 1 MG/ML INJ IV PRN ×8 (00:14→21:59)
[2021-02-15] MEDS ORDERED: DIPHENHYDRAMINE 25 MG TAB/CAP PO ONE (00:55)
[2021-02-15 01:04] LABS: Urine Appearance CLEAR (Clear); Urine Bilirubin NEGATIVE (Negative); Urine Blood NEGATIVE (Negative); Urine Color YELLOW (Yellow); Urine Glucose NEGATIVE (Negative); Urine Microscopic Reflex NO UMIC; Urine Protein NEGATIVE (Negative); Urine pH 6.5 (5.0-7.0)
[2021-02-15] MEDS: NA CHLORIDE 0.9% 1,000 ML IV SCH ×2 (06:12→16:43)
[2021-02-15 06:18] LABS: Basophils % 0.8 % (0-1.3); Lymphocytes % 38.5 % (15.3-44.8); MPV 8.5 fL (7.6-11.3)
[2021-02-15 06:27] LABS: BUN Blood Urea Nitrogen 6 mg/dL (7-18); Bicarbonate 25 mmol/L (21-32); Glucose Level 89 mg/dL (74-106); Potassium 3.9 mmol/L (3.5-5.1); Sodium Level 142 mmol/L (136-145); Troponin I < 0.02 ng/mL (0.0-0.045)
[2021-02-15] MEDS: FOLIC ACID 1 MG TABLET PO SCH (08:59)
[2021-02-15] MEDS: APIXABAN 2.5 MG TABLET PO SCH ×2 (08:59→20:33)
[2021-02-15] MEDS ORDERED: VITAMIN D 1000 UNIT TAB PO SCH (09:00)
[2021-02-15] MEDS ORDERED: POTASSIUM CL SA 10 MEQ TAB PO ONE (09:00)
--- NOTE | 2021-02-15 17:29 | P.PN ---
Subjective Date of Service: 02/15/21 Chief Complaint: Sickle cell crisis Patient complaining of generalized body pain. Physical Examination - Vital Signs Temperature: 98.2 F Blood Pressure: 109/54 Pulse: 73 Respirations: 16 Pulse Ox (%): 99 - Physical Exam General: Alert, In no apparent distress HEENT: Scleral icterus Neck: JVD not distended Respiratory: Other (Nonlabored breathing) Cardiovascular: Regular rate/rhythm, Normal S1 S2 Gastrointestinal: Soft and benign, Non-distended Musculoskeletal: No swelling Integumentary: No rashes Neurological: Normal strength at 5/5 x4 extr Assessment And Plan - Current Problems (Diagnosis) (1) Sickle cell pain crisis Current Visit: No Status: Acute (2) Leucocytosis Current Visit: No Status: Chronic Qualifiers: Leukocytosis type: unspecified - Plan Continue supportive measures. IV hydration. IV antibiotics given leukocytosis. Pain management as needed. Obtain blood cultures. UA is negative. Continue folic acid. Hemoglobin is down to 8.4. This is likely dilutional from IV fluid. Continue to monitor CBC. Physician Review: Patient Assessed, Agree with Above Assessment and Plan
[2021-02-16] MEDS: HYDROMORPHONE HCL 1 MG/ML INJ IV PRN ×7 (00:50→20:57)
[2021-02-16] MEDS: NA CHLORIDE 0.9% 1,000 ML IV SCH ×3 (00:52→20:56)
[2021-02-16 06:34] LABS: ALT/SGPT 26 U/L (12-78); AST/SGOT 22 U/L (15-37); Albumin 3.5 g/dL (3.4-5.0); Alkaline Phosphatase 92 U/L (45-117); BUN Blood Urea Nitrogen 7 mg/dL (7-18); Bicarbonate 26 mmol/L (21-32); Bilirubin Total 3.5 mg/dL (0.2-1.0); Glucose Level 93 mg/dL (74-106); Protein, Total 6.7 g/dL (6.4-8.2); Sodium Level 144 mmol/L (136-145)
[2021-02-16] MEDS: PROMETHAZINE INJ 25 MG/ML AMP IV PRN ×3 (06:46→17:54)
[2021-02-16] MEDS: FOLIC ACID 1 MG TABLET PO SCH (08:18)
[2021-02-16] MEDS: APIXABAN 2.5 MG TABLET PO SCH ×2 (08:18→20:56)
[2021-02-16 09:29] LABS: BUN Blood Urea Nitrogen 6 mg/dL (7-18); Bicarbonate 26 mmol/L (21-32); Glucose Level 98 mg/dL (74-106); Potassium 3.9 mmol/L (3.5-5.1); Sodium Level 142 mmol/L (136-145)
[2021-02-16 09:54] LABS: Basophils % 1.2 % (0-1.3); Hematocrit 23.4 % (36.0-45.0); Lymphocytes % 42.7 % (15.3-44.8); MPV 9.1 fL (7.6-11.3); RBC Red Blood Cell Count 2.52 M/uL (3.86-4.86)
[2021-02-16] MEDS ORDERED: HYDROMORPHONE HCL 1 MG/ML INJ IV PRN (15:34)
--- NOTE | 2021-02-16 15:37 | P.PN ---
Subjective Date of Service: 02/16/21 Chief Complaint: Sickle cell crisis Patient complaining of generalized body pain. Leukocytosis improved. Physical Examination - Vital Signs Temperature: 97.6 F Blood Pressure: 91/47 Pulse: 71 Respirations: 16 Pulse Ox (%): 96 - Physical Exam General: Alert, In no apparent distress HEENT: Mucous membr. moist/pink Neck: JVD not distended Respiratory: Clear to auscultation bilaterally, Normal air movement Cardiovascular: Regular rate/rhythm, Normal S1 S2 Gastrointestinal: Soft and benign, Non-distended Musculoskeletal: No swelling Neurological: Normal strength at 5/5 x4 extr Assessment And Plan - Current Problems (Diagnosis) (1) Sickle cell pain crisis Current Visit: No Status: Acute (2) Leucocytosis Current Visit: No Status: Chronic Qualifiers: Leukocytosis type: unspecified - Plan Continue supportive measures. IV hydration. IV antibiotics given leukocytosis. Pain management as needed. Wean IV opioid Blood cultures are pending. UA is negative. Continue folic acid. Continue to monitor CBC. Transfuse p.r.n. for hemoglobin less than 7.
[2021-02-17] MEDS: HYDROMORPHONE HCL 1 MG/ML INJ IV PRN ×6 (00:07→16:18)
[2021-02-17] MEDS: PROMETHAZINE INJ 25 MG/ML AMP IV PRN ×2 (00:49→09:06)
[2021-02-17 05:49] LABS: Absolute Lymphocytes (CBC) 7.3 K/uL (0.7-4.9); Basophils % 0.8 % (0-1.3); Hematocrit 23.1 % (36.0-45.0); Lymphocytes % 39.6 % (15.3-44.8); RBC Red Blood Cell Count 2.53 M/uL (3.86-4.86)
[2021-02-17] MEDS: NA CHLORIDE 0.9% 1,000 ML IV SCH (06:01)
[2021-02-17 07:03] LABS: ALT/SGPT 25 U/L (12-78); AST/SGOT 25 U/L (15-37); Albumin 3.7 g/dL (3.4-5.0); Alkaline Phosphatase 94 U/L (45-117); BUN Blood Urea Nitrogen 8 mg/dL (7-18); Bicarbonate 24 mmol/L (21-32); Bilirubin Total 3.7 mg/dL (0.2-1.0); Glucose Level 94 mg/dL (74-106); Sodium Level 142 mmol/L (136-145)
[2021-02-17] MEDS: APIXABAN 2.5 MG TABLET PO SCH (09:05)
[2021-02-17] MEDS: FOLIC ACID 1 MG TABLET PO SCH (09:10)
--- NOTE | 2021-02-17 10:33 | RAD REPORT ---
EXAM DESCRIPTION: RAD - Chest Single View - 02/17/2021 10:18 am CLINICAL HISTORY: Leukocytosis Chest pain. COMPARISON: Chest Single View dated 01/22/2021; Chest Single View dated 12/21/2020; Chest Single View dated 11/24/2020; Chest Single View dated 10/12/2020 FINDINGS: Portable technique limits examination quality. [id number] bilateral interstitial lung opacities are present. The heart is mildly enlarged in s ize. Left-sided port catheter is unchanged in position. IMPRESSION: Mild bilateral interstitial lung opacities has a more chronic appearance. However, a mil d bronchitis or viral infection could be present.
--- NOTE | 2021-02-17 11:30 | P.DS ---
Admission Date: 02/14/21 Discharge Date: 02/17/21 Disposition: ROUTINE DISCHARGE Discharge Condition: FAIR Reason for Admission: Sickle cell crisis - Problems (1) Sickle cell pain crisis Current Visit: No Status: Acute (2) Leucocytosis Current Visit: No Status: Chronic Qualifiers: Leukocytosis type: unspecified Qualified Code(s): D72.829 - Elevated white blood cell count, unspecified Brief History of Present Illness: 30-year-old woman with a past medical history significant for PE, sickle cell anemia, cannabis use disorder presented with complaint of generalized body pains. Patient rated pain as 10/10 and described as aching in quality. Blood work unremarkable except leukocytosis and anemia which is chronic for her. Patient hospitalized for further management of suspected sickle cell painful crisis. Hospital Course: Patient admitted to the medical floor and treated supportively IV fluids and opioids for pain. She has chronic leukocytosis likely secondary to hem atopoeisis. Blood cultures yielded no growth. UA negative for UTI. Chest x- ray demonstrated chronic findings. Patient's pain scale was consistent, 10/10 every 3 hrs at the time her Dilaudid is due. She will give a pain scale of 0 in between doses which appears inconsistent for a patient with chronic pain on oral Dilaudid 8 mg tid at home. Patient refused oral dilaudid even when I offered to put her on her home dose dilaudid. No sympathetic reaction to pain like tachycardia. These observations are suspicious for aberrant opioid use. Patient noted to be quite functional during my interaction. Noted no limit to her movement including sitting up in bed at ease with no back support. Patient discharged with Augmentin for possible upper respiratory infection. Vital Signs/Physical Exam: Temp Pulse Resp BP Pulse Ox 98.5 F 77 14 105/61 98 02/17/21 08:00 02/17/21 08:00 02/17/21 08:00 02/17/21 08:00 02/17/21 08:00 General: Alert, In no apparent distress, Oriented x3 Neck: JVD not distended Respiratory: Other (Nonlabored breathing) Cardiovascular: Regular rate/rhythm Gastrointestinal: Non-distended Musculoskeletal: No swelling Integumentary: No rashes Neurological: Other (No focal motor deficit.) Laboratory Data at Discharge: WBC 18.50 K/uL (4.3-10.9) H 02/17/21 05:42 Hgb 8.2 g/dL (12.0-15.0) L 02/17/21 05:42 Hct 23.1 % (36.0-45.0) L 02/17/21 05:42 Plt Count 465 K/uL (152-406) H 02/17/21 05:42 Sodium 142 mmol/L (136-145) 02/17/21 05:42 Potassium 4.0 mmol/L (3.5-5.1) 02/17/21 05:42 BUN 8 mg/dL (7-18) 02/17/21 05:42 Creatinine 0.60 mg/dL (0.55-1.3) 02/17/21 05:42 Glucose 94 mg/dL (74-106) 02/17/21 05:42 Total Bilirubin 3.7 mg/dL (0.2-1.0) H 02/17/21 05:42 AST 25 U/L (15-37) 02/17/21 05:42 ALT 25 U/L (12-78) 02/17/21 05:42 Alkaline Phosphatase 94 U/L (45-117) 02/17/21 05:42 Troponin I < 0.02 ng/mL (0.0-0.045) 02/15/21 05:55 Home Medications: Folic Acid [Folic Acid*] 1 mg PO DAILY 08/01/12 Promethazine Tab [Phenergan*] 25 mg PO Q4H PRN #30 tab 11/15/19 ALPRAZolam [Xanax*] 1 mg PO BIDP PRN 09/30/20 Cholecalciferol (Vitamin D3) [Vitamin D 1000 Iu Tab*] 1,000 unit PO EVERY 7TH DAY 09/30/20 Apixaban [Eliquis *] 2.5 mg PO BID #60 tablet 12/21/20 Hydromorphone HCl [Dilaudid] 8 mg PO TID PRN 30 Days #60 tablet 12/21/20 Amoxicillin/Potassium Clav [Augmentin 875-125 Tablet] 1 each PO BID #10 tablet 02/17/21 New Medications: Amoxicillin/Potassium Clav [Augmentin 875-125 Tablet] 1 each PO BID #10 tablet Diet: Regular Activity: Ad gina Followup: Neil Benitez MD [Primary Care Provider] - Time spent managing pt's care (in minutes): 32
[2021-02-17 16:42] VITALS: BP 112/66; TEMP 98.1
[2021-02-17] MEDS ORDERED: HEPARIN 500 UNIT/5 ML SYR IV SCH (17:00)
[2021-02-17 17:02] VITALS: O2SAT 96
== END 2021-02-17 18:17 | disposition home or self-care (01) | DRG 812 ==
LOC: ER 12:41 → 2ND 17:37
PROVIDERS: ADMIT Internal Medicine; ATTEND Internal Medicine
DX: D57.00 Hb-SS disease with crisis, unspecified (principal); D70.4 Cyclic neutropenia; J06.9 Acute upper respiratory infection, unspecified; F41.9 Anxiety disorder, unspecified; F12.90 Cannabis use, unspecified, uncomplicated; F17.210 Nicotine dependence, cigarettes, uncomplicated; Z86.711 Personal history of pulmonary embolism; Z88.2 Allergy status to sulfonamides; Z20.822 Contact with and (suspected) exposure to COVID-19
CPT/HCPCS: 36415; 71045; 80048; 80053; 81003; 84439; 84443; 84484; 85025; 85044; 87040; 96374; 96375; 99285; J1170; J1642; J2405; J2550; J2765; J7030; U0003

== ENCOUNTER 2021-04-13 08:53 | Emergency (ER) | payer OTHER ==
--- OUTSIDE RECORDS SUMMARY | 2021-04-13 08:57 | XMS REPORT | Continuity of Care Document ---
:1990 Author Organization [facility] t Address [address] [place] [address] Support Name Relationship Address Phone DENI Unavailable [address] [facility] [phone] [address] [facility] [place] [address] DENI Unavailable [address] [facility] [phone] [address] [facility] [place] [address] JORDAN OR [facility] [address] [phone] [place] [address] JORDAN Unavailable [address] [facility] [phone] [place] [address] JORDAN Unavailable [address] [facility] [phone] [place] [address] [address] [place] [address] CLINTON DELEON MD E Admitting Provider [address] [facility] [address] [place] [address] JESSICA SIDDIQUI Primary Care Physician Donna [address] [facility] [place] [address] VIJAYA MULLEN MD A Emergency Provider [address] [facility] [place] [address] NAIMA MULLEN Attending Provider [address] [place] [address] JORDAN Next of Kin [address] [place] [address] IZZY MULLEN, E Emergency Provider [address] [facility] [address] [place] [address] PHYSICIAN Primary Care Physician Unavailable Unavailab chrissy GRISSOM MD, MD Emergency Provider [address] [place] [address] OTHER, NAME IN NOTES Primary Care Physician Unavailable Sylvie vailable GIANNONE MD, MD Emergency Provider [address] [place] [address] ISABELLA MULLEN MD MORE Admitting Provider [address] [place] [address] FRANCIS Primary Care Physician [address] [place] [address] MD AMRITA A Emergency Provider [facility] [address] MD ADRIANA Emergency Provider Unavailable Unavailable MD Lester KUMAR Emergency Provider [address] [place] [address] [place] [address] MD AMAN Emergency Provider [address] [facility] [place] [place] [address] Care Team Providers Name Role Phone Tasha Campos MD Primary Care Physician [place] SHAH Attending Clinician Unavailable ERIBERTO WOODRUFF Attending Clinician Unavailable Antonia CARTER Admitting Clinician Unavailable Payers Payer Name Policy Type Policy Number Effective Date Expiration Date S ource Problems Condition Condition Condition Status Onset Resolution Last Treating Co mments Source Name Details Category Date Date Treatment Clinician Date Leukocytos Leukocytos Disease Active [facility] [place] Pneumonia Pneumonia Disease Active [facility] [place] 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[facility] - anemia anemia 00:00: Medical 00 [place] 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[facility] - crisis crisis 00:00: Medical 00 [place] Allergies, Adverse Reactions, Alerts Allergy Allergy Status Severity Reaction(s) Onset Inactive Treating Comm ents Source Name Type Date Date Clinician Ondanset Drug Active Nausea And [facility] Hcl Intolera Vomiting 2[facility]28 [facility] - (Pf) nce 00:00: Medical 00 [place] morphine DA Active [facility] 3[facility]11 [place] 00:00: d 00 [facility] TEGEDERM DA Active [facility] DRESSING 8-23 [place] 00:00: d 00 [facility] Family History Family Member Diagnosis Comments Start Date Stop Date Source Natural mother Sickle cell trait [facility] Natural sister Unremarkable [facility] Natural brother Unremarkable [facility] Natural father Seizures [facility] Natural father Sickle cell trait [facility] Social History Social Habit Start Date Stop Date Quantity Comments Source Alcohol intake 2018-08-02 2018-08-02 Current [facility] - 00:00:00 00:00:00 non-drinker of Medical Ce nter alcohol (finding) Tobacco use and 2015-07-10 2015-07-10 Never used [facility] julianos - exposure 00:00:00 00:00:00 [facility] Sex Assigned At [birth year] [facility] Ariana kes - 00:00:00 00:00:00 [facility] Smoking Status Start Date Stop Date Source Never smoker [facility] Medications Ordered Filled Start Stop [...] daily as needed for Anxiety. folic acid Yes folate 2mg QD Take [...] daily as needed for Anxiety. folic acid 2018-0 Yes folate 2mg QD Take 2 mg [...] mouth once Medi rita 00 a week. [place] VITAMIN D2 Yes 1{capsu Q7D Take [address] [facility],000 unit 2-25 le} capsule by Ariana kes - capsule 00:00: mouth once Medi rita 00 a week. [place] VITAMIN D2 Yes 1{capsu Q7D Take [address] 50,000 unit 2-25 le} capsule by Ariana kes - capsule 00:00: mouth once Medi rita 00 a week. [place] VITAMIN D2 Yes 1{capsu Q7D Take 1 [...] tablet (eight) hours as needed nausea. prochlorper 2019-0 Yes 1{tbl} Take [address] azine 1-14 tablet by [facility] - (COMPAZINE) 00:00: mouth Medic al 10 MG 00 every 8 Center tablet (eight) hours as needed nausea. prochlorper 2019-0 Yes 1{tbl} Take [address] azine 1-14 tablet by [facility] - (COMPAZINE) 00:00: mouth Medic al 10 MG 00 every 8 Center tablet (eight) hours as needed nausea. prochlorper 2019-0 Yes 1{tbl} Take [address] azine 1-14 tablet by [facility] - (COMPAZINE) 00:00: mouth Medic al 10 MG 00 every 8 Center tablet (eight) hours as needed nausea. prochlorper 2019-0 Yes 1{tbl} Take [address] azine 1-14 tablet by [facility] - (COMPAZINE) 00:00: mouth Medic al 10 MG 00 every 8 Center tablet (eight) hours as needed nausea. Procedures This patient has no known procedures. Plan of Care Planned Activity Planned Date Details Comments Source Future Scheduled 2021-01-11 INFLUENZA VACCINE (#1) [facility] 00:00:00 [code = INFLUENZA Medical Ce nter VACCINE (#1)] Future Scheduled 2021-01-11 INFLUENZA VACCINE (#1) [facility] Test 00:00:00 [code = INFLUENZA Medical Ce nter VACCINE (#1)] Future Scheduled 2020-05-[address] [facility] - Test 00:00:00 (12+) [code = Medical Center DEPRESSION SCREENING (12+)] Future Scheduled 2020-05-[address] [facility] - Test 00:00:00 (12+) [code = Medical Center DEPRESSION SCREENING (12+)] Future Scheduled 2020-01-12 INFLUENZA VACCINE (#1) C [...] Medica l Center cervix (procedure) [code = 445041602] Future Scheduled 2012-09-[address] [facility] - Test 00:00:00 malignant neoplasm of Medica l Center cervix (procedure) [code = 178147387] Future Scheduled 2012-09-[address] [facility] - Test 00:00:00 malignant neoplasm of Medica l Center cervix (procedure) [code = 106622125] Future Scheduled 2012-09-[address] [facility] - Test 00:00:00 malignant neoplasm of Medica l Center cervix (procedure) [code = 616777727] Future Scheduled 2012-09-[address] [facility] - Test 00:00:00 malignant neoplasm of Medica l Center cervix (procedure) [code = 099415007] Future Scheduled [address] [facility] - Test 00:00:00 (procedure) [code = [facility] [id number]] Future Scheduled [address] [facility] - Test 00:00:00 (procedure) [code = [facility] [id number]] Future Scheduled [address] [facility] - Test 00:00:00 (procedure) [code = [facility] 18819708] Future Scheduled [address] [facility] - Test 00:00:00 (procedure) [code = [facility] 58367129] Future Scheduled [address] [facility] - Test 00:00:00 (procedure) [code = [facility] [id number]] Future Scheduled 2010-09-05 DTAP/TDAP/TD VACCINES [facility] Test 00:00:00 (1 - Tdap) [code = Medical C enter DTAP/TDAP/TD VACCINES (1 - Tdap)] Future Scheduled 2010-09-05 DTAP/TDAP/TD VACCINES [facility] Test 00:00:00 (1 - Tdap) [code = Medical C enter DTAP/TDAP/TD VACCINES (1 - Tdap)] Future Scheduled 2003 COVID-19 VACCINE (1) [facility] - Test 00:00:00 [code = COVID-[address] VACCINE (1)] Future Scheduled 2003 COVID-19 VACCINE (1) [facility] Test 00:00:00 [code = COVID-[address] VACCINE (1)] Future Scheduled 1997-09-[address] [...] - Test 00:00:00 0-64 YRS (1 of 4 - Medical C enter PCV13) [code = PNEUMOCOCCAL VACCINE 0-64 YRS (1 of 4 - PCV13)] Future Scheduled 1997-09-[address] [facility] - Test 00:00:00 0-64 YRS (1 of 4 - Medical C enter PCV13) [code = PNEUMOCOCCAL VACCINE 0-64 YRS (1 of 4 - PCV13)] Encounters Start End Encounter Admission Attending Care Care Encounter Source Date/Time Date/Time Type Type Clinicians Facility Department ID 2021-04-04 2021-04-04 Emergency E JENNIFER [facility] BL [id number] [facility] 02:21:00 06:06:00 2021-02-18 2021-02-18 Inpatient E [facility] MED [id number] [facility] 16:11:00 11:44:00 2019-06-14 2019-06-14 Emergency E [facility]BL [facility]BL [id number] [facility]BL 16:16:00 16:16:00 2019-06-09 2019-06-09 Inpatient E [facility] MED [id number] [facility] 09:53:00 05:29:00 2019-06-05 2019-06-05 Emergency E [facility]BL [facility]BL [id number] [facility]BL 00:19:00 00:19:00 2019-04-29 2019-04-29 Emergency E [facility] SW [id number] [facility]W 19:58:00 19:58:00 2019-03-26 2019-03-26 Emergency [...] Test Comments Results Result Comments Source SARS-COV2/RT-PCR ([facility]) 2019-11-14 17:47:00 Test Item Value Reference Range Interpretation Comme nts SARS-COV2/RT-PCR (test code = 6556349) Negative Not Detected, N egative SARS-COV-2 PERFORMING LAB (test code = 7218463) [facility] Negative results do not preclude SARS-CoV-2 infection [...] of the Act.Fact Sheet for Healthcare Pro viders:https://www.[employer]/Documents/Xpert%20Xpress%20SARS%20CoV-2/Fact%20Sh eets/302-3802%51AVAF-VEG-9%20HEALTHCARE%20PROVIDERS%20FACT%20SHEET.pdfFact Sheet for Healthcare Patients:https://www.[facility]/Documents/Xpert%20Xpress%20SARS%20CoV-2/Fact%20Sheets/302-3801%20SARS-COV -2%20PATIENT%20FACT%20SHEET.pdfPerforming Laboratory:[address] [place], [place] [address]HSW W/PLT COUNT & AUTO DIFFERENTIAL 2018-08-10 08:25:00 [...] 3438) Received comment: User comments: Slide comments:RETICULOCYTE [id number] 08:06:00 Test Item Value Reference Range Interpretation Comments RETICULOCYTE COUNT PCT (BEAKER) (test 25.0 % 0.5-1.7 H code = 575) CBC W/PLT COUNT & AUTO [id number] 09:27:00 Test Item Value Reference Range Interpretation [...] 3438) Received comment: User comments: Slide comments:RETICULOCYTE [id number] 05:01:00 Test Item Value Reference Range Interpretation Comments RETICULOCYTE COUNT PCT (BEAKER) (test 21.6 % 0.5-1.7 H code = 575) CBC W/PLT COUNT & AUTO [id number] 15:17:00 Test Item Value Reference Range Interpretation [...] H (BEAKER) (test code = 413) RETICULOCYTE [id number] 08:44:00 Test Item Value Reference Range Interpretation Comments RETICULOCYTE COUNT PCT (BEAKER) (test 23.8 % 0.5-1.7 H code = 575) BLOOD [id number] 14:01:00 Test Item Value Reference Range Interpretation Comments CULTURE (BEAKER) (test No growth in 5 days code = 1095) BLOOD [id number] 12:01:00 Test Item Value Reference Range Interpretation Comments CULTURE (BEAKER) (test No growth in 5 days code = 1095) CBC W/PLT COUNT & AUTO [id number] 11:38:00 Test Item Value Reference Range Interpretation [...] 3438) Received comment: User comments: Slide comments:RETICULOCYTE [id number] 07:44:00 Test Item Value Reference Range Interpretation Comments RETICULOCYTE COUNT PCT (BEAKER) (test 27.0 % 0.5-1.7 H code = 575) RETICULOCYTE [id number] 07:19:00 Test Item Value Reference Range Interpretation Comments RETICULOCYTE COUNT PCT (BEAKER) (test 22.7 % 0.5-1.7 H code = 575) CBC W/PLT COUNT & AUTO [id number] 12:07:00 Test Item Value Reference Range Interpretation [...] 3438) Received comment: User comments: Slide comments:RETICULOCYTE [id number] 06:14:00 Test Item Value Reference Range Interpretation Comments RETICULOCYTE COUNT PCT (BEAKER) (test 21.9 % 0.5-1.7 H code = 575) [id number] 06:02:00 Test Item Value Reference Range Interpretation Comments PHOSPHORUS (BEAKER) (test code = 3.8 mg/dL 2.3-4.7 604) [id number] 06:02:00 Test Item Value Reference Range Interpretation Comments MAGNESIUM (BEAKER) (test code = 1.8 mg/dL 1.6-2.6 627) BASIC METABOLIC [id number] 06:02:00 Test Item Value Reference Range Interpretation [...] Specimen moderately ictericCBC W/PLT COUNT & AUTO [id number] 09:09:00 Test Item Value Reference Range Interpretation [...] = 3438) Received comment: User comments: Slide comments:[id number] 04:11:00 Test Item Value Reference Range Interpretation Comments PHOSPHORUS (BEAKER) (test code = 3.3 mg/dL 2.3-4.7 604) [id number] 04:11:00 Test Item Value Reference Range Interpretation Comments MAGNESIUM (BEAKER) (test code = 1.6 mg/dL 1.6-2.6 627) BASIC METABOLIC [id number] 04:11:00 Test Item Value Reference Range Interpretation [...] FOR DIALYSIS PATIEN TS. Specimen slightly ictericRETICULOCYTE [id number] 03:54:00 Test Item Value Reference Range Interpretation Comments RETICULOCYTE COUNT PCT (BEAKER) (test 20.4 % 0.5-1.7 H code = 575) CBC W/PLT COUNT & AUTO [id number] 18:30:00 Test Item Value Reference Range Interpretation [...] = 413) CBC W/PLT COUNT & AUTO [id number] 10:51:00 Test Item Value Reference Range Interpretation [...] 3438) Received comment: User comments: Slide comments:RETICULOCYTE [id number] 10:08:00 Test Item Value Reference Range Interpretation Comments RETICULOCYTE COUNT PCT (BEAKER) (test 14.4 % 0.5-1.7 H code = 575) CBC W/PLT COUNT & AUTO [id number] 09:30:00 Test Item Value Reference Range Interpretation [...] = 3438) Received comment: User comments: Slide comments:[id number] 03:32:00 Test Item Value Reference Range Interpretation Comments PHOSPHORUS (BEAKER) (test code = 3.5 mg/dL 2.3-4.7 604) [id number] 03:32:00 Test Item Value Reference Range Interpretation Comments MAGNESIUM (BEAKER) (test code = 1.8 mg/dL 1.6-2.6 627) BASIC METABOLIC [id number] 03:32:00 Test Item Value Reference Range Interpretation [...] ictericCT, CHEST WITH IV CONTRAST- PE TEST [id number] 14:01:00FINAL REPORT CT scan of the chest. [...] MDReport Verified Date/Time: 08/02/2018 14:01:29 Reading Location: [facility] B1 C013X Ortho Consult Reading Room URINALYSIS W/ REFLEX URINE [id number] 11:27:00 Test Item Value Reference Range Interpretation [...] 516) SOURCE(BEAKER) (test code = 2795) SCREEN, [id number] 11:15:00 Test Item Value Reference Range Interpretation Comments TEST URINE (BEAKER) (test Negative code = 583) RETICULOCYTE [id number] 04:43:00 Test Item Value Reference Range Interpretation Comments RETICULOCYTE COUNT PCT (BEAKER) (test 13.2 % 0.5-1.7 H code = 575) RAD, CHEST, 2 [id number] 03:54:00Reason for exam:->SICKLE CELL PAIN CRISISIs the [...] [place] MDReport Verified Date/Time: 08/02/2018 03:54:52Reading Location: [address] Reading Room CBC W/PLT COUNT & [...] (BEAKER) (test code = 417) COMPREHENSIVE METABOLIC [id number] 02:42:00 Test Item Value Reference Range Interpretation [...] = 358) GLUCOSE RANDOM 104 mg/dL 70-110 (ID90TAKER) (test code = 652) CALCIUM (ID90TAKER) 9.5 mg/dL 8.5-10.5 (test code = 697) AST (SGOT) (ID90TAKER) 25 U/L 5-40 (test code = 353) ALT (SGPT) ([employer]) 18 U/L 5-50 (test code = 347) EGFR ([employer]) (test 221 ESTIMATE D GFR IS code = 1092) mL/min/1.73 sq NOT ACCURA TE m CREATININE CLEARANCE IN PREDICTING GLOMERULAR FILTRATION RATE . ESTIMATED GFR I S NOT APPLICABLE FOR DIALYSIS PATIEN TS.
[2021-04-13] MEDS ORDERED: [UNRECOGNIZED DRUG - OTHER] IM ONE (09:19)
[2021-04-13] MEDS ORDERED: NA CHLORIDE 0.9% 1,000 ML ONE (09:23)
[2021-04-13 09:45] LABS: Absolute Lymphocytes (CBC) 3.4 K/uL (0.7-4.9); Hematocrit 38.4 % (36.0-45.0); Lymphocytes % 22.8 % (15.3-44.8); MPV 8.3 fL (7.6-11.3); RBC Red Blood Cell Count 4.11 M/uL (3.86-4.86)
[2021-04-13 10:07] LABS: ALT/SGPT 20 U/L (12-78); AST/SGOT 19 U/L (15-37); Albumin 3.7 g/dL (3.4-5.0); Alkaline Phosphatase 90 U/L (45-117); BUN Blood Urea Nitrogen 8 mg/dL (7-18); Bicarbonate 25 mmol/L (21-32); Bilirubin Direct 0.4 mg/dL (0-0.2); Bilirubin Total 2.1 mg/dL (0.2-1.0); Glucose Level 101 mg/dL (74-106); Potassium 3.7 mmol/L (3.5-5.1); Protein, Total 7.8 g/dL (6.4-8.2); Sodium Level 139 mmol/L (136-145)
[2021-04-13] MEDS ORDERED: HYDROMORPHONE HCL 2 MG/ML inj ONE ×2 (10:54→13:11)
[2021-04-13] MEDS ORDERED: ONDANSETRON 4 MG/2 ML VIAL ONE (10:55)
[2021-04-13 11:01] LABS: Anisocytosis SLIGHT; Blood Morphology Comment NOTED (NOT SEEN); Elliptocytes 1+; Platelet Estimate ADEQ; Poikilocytosis SLIGHT; White Blood Cell Scan OK (OK)
--- NOTE | 2021-04-13 13:40 | EDPHYS ---
Physician Documentation [facility] Name: Gume Ortega Age: 30 yrs Sex: Female : 1990 Arrival Date: 04/13/2021 Time: 08:55 Bed 15 Private MD: ED Physician Chico Menezes HPI: 04/13 10:45 This 30 yrs old Black Female presents to ER via Ambulatory with complaints of Sickle kdr Cell Crisis. 10:45 The patient complains of diffuse pain chest and abdomen.. She states that this is her kdr normal sickle cell pain. She has been out of her pain medications for about a month. She has no other associated symptoms. Onset: The symptoms/episode began/occurred gradually, 1 month(s) ago. Severity of symptoms: At their worst the symptoms were moderate in the emergency department the symptoms are unchanged. The patient has experienced similar episodes in the past, chronically. The patient has been recently seen by a physician: Patient related to the nursing staff that she had several admissions in the past month at other facility. 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 - Social history:: Smoking status: Patient denies any tobacco usage or history of. Patient uses street drugs, marijuana. ROS: 10:45 Constitutional: Negative for fever, chills, and weight loss, Eyes: Negative for injury, kdr pain, redness, and discharge, ENT: Negative for injury, pain, and discharge, Neck: Negative for injury, pain, and swelling, Respiratory: Negative for shortness of breath, cough, wheezing, and pleuritic chest pain, Abdomen/GI: Negative for abdominal pain, nausea, vomiting, diarrhea, and constipation, Back: Negative for injury and pain, : Negative for injury, bleeding, discharge, and swelling, MS/Extremity: Negative for injury and deformity, Skin: Negative for injury, rash, and discoloration, Neuro: Negative for headache, weakness, numbness, tingling, and seizure activity. Psych: Negative for depression, anxiety, suicide ideation, homicidal ideation, and hallucinations, Allergy/Immunology: Negative for hives, rash, and allergies, Endocrine: Negative for neck swelling, polydipsia, polyuria, polyphagia, and marked weight changes, Hematologic/Lymphatic: Negative for swollen nodes, abnormal bleeding, and unusual bruising. 10:45 Cardiovascular: Positive for chest pain, Typical sickle cell pain. Exam: 10:45 Constitutional: This is a well developed, well nourished patient who is awake, alert, kdr and in no acute distress. Head/Face: Normocephalic, atraumatic. Eyes: Pupils equal round and reactive to light, extra-ocular motions intact. Lids and lashes normal. Conjunctiva and sclera are non-icteric and not injected. Cornea within normal limits. Periorbital areas with no swelling, redness, or edema. Neck: Trachea midline, no thyromegaly or masses palpated, and no cervical lymphadenopathy. Supple, full range of motion without nuchal rigidity, or vertebral point tenderness. No Meningismus. Chest/axilla: Normal chest wall appearance and motion. Nontender with no deformity. No lesions are appreciated. Cardiovascular: Regular rate and rhythm with a normal S1 and S2. No gallops, murmurs, or rubs. Normal PMI, no JVD. No pulse deficits. Respiratory: Lungs have equal breath sounds bilaterally, clear to auscultation and percussion. No rales, rhonchi or wheezes noted. No increased work of breathing, no retractions or nasal flaring. Abdomen/GI: Soft, non-tender, with normal bowel sounds. No distension or tympany. No guarding or rebound. No evidence of tenderness throughout. Back: No spinal tenderness. No costovertebral tenderness. Full range of motion. Skin: Warm, dry with normal turgor. Normal color with no rashes, no lesions, and no evidence of cellulitis. MS/ Extremity: Pulses equal, no cyanosis. Neurovascular intact. Full, normal range of motion. Neuro: Awake and alert, GCS 15, oriented to person, place, time, and situation. Cranial nerves II-XII grossly intact. Motor strength 5/5 in all extremities. Sensory grossly intact. Cerebellar exam normal. Normal gait. Psych: Awake, alert, with orientation to person, place and time. Behavior, mood, and affect are within normal limits. Vital Signs: 08:59 BP 122 / 76; Pulse 71; Resp 15; Temp 97.6; Pulse Ox 100% ; Weight 71.21 kg; Height 5 jl7 ft. 2 in. (157.48 cm); Pain 10/10; 11:30 BP 118 / 58; Pulse 78; Resp 17; Temp 97.8; Pulse Ox 100% ; jh6 12:32 BP 116 / 62; Pulse 55; Resp 18; Pulse Ox 100% ; jh6 13:38 BP 101 / 61; Pulse 48; Resp 18; Temp 97.6(O); Pulse Ox 100% ; Pain 5/10; jh6 08:59 Body Mass Index 28.71 (71.21 kg, 157.48 cm) jl7 MDM: 10:45 Data reviewed: vital signs, nurses notes, lab test result(s), radiologic studies. kdr Counseling: I had a detailed discussion with the patient and/or guardian regarding: the historical points, exam findings, and any diagnostic results supporting the discharge/admit diagnosis, lab results, radiology results, the need for outpatient follow up. 13:39 Patient medically screened. [facility] 04/13 09:07 Order name: Basic Metabolic Panel [facility] 04/13 09:07 Order name: CBC with Diff kdr 04/13 09:07 Order name: Hepatic Function kdr 04/13 09:07 Order name: Retic Count kdr 04/13 09:08 Order name: Basic Metabolic Panel; Complete Time: 10:44 EDMS 04/13 09:08 Order name: CBC with Automated Diff; Complete Time: 13:37 EDMS 04/13 09:08 Order name: Liver (Hepatic) Function; Complete Time: 10:44 EDMS 04/13 11:01 Order name: CBC Smear Scan; Complete Time: 13:37 EDMS 04/13 12:14 Order name: US Carotid Artery Bilateral; Complete Time: 15:01 [facility] 04/13 09:07 Order name: IV Saline Lock; Complete Time: 09:38 kdr 04/13 09:07 Order name: Labs collected and sent; Complete Time: :38 kdr Administered Medications: 09:37 Drug: NS 0.9% 1000 ml Route: IV; Rate: 1 bolus; Site: Port-a-cath; 6 11:10 Not Given (Patient Refused; states that is makes her vomitt): Zofran (Ondansetron) 4 mg [facility] IVP once; over 2 minutes 11:11 Drug: Dilaudid (HYDROmorphone) 2 mg Route: IVP; Site: Port-a-cath; 6 13:28 Drug: Dilaudid (HYDROmorphone) 2 mg Route: IVP; Site: Port-a-cath; 6 13:43 Follow up: Response: Pain is decreased [facility] 13:55 Drug: Hep-Lock 500 units Route: IVP; Site: Port-a-cath; 6 14:07 Follow up: Response: No adverse reaction [facility] Disposition Summary: 04/13/21 13:39 Discharge Ordered Location: Home kdr Problem: an acute exacerbation kdr Symptoms: have improved kdr Condition: Stable kdr Diagnosis - Other sickle-cell disorders with crisis kdr - Dehydration kdr Followup: kdr - With: Private Physician - When: 2 - 3 days - Reason: If symptoms return, Further diagnostic work-up, Recheck today's complaints, Continuance of care, Re-evaluation by your physician Discharge Instructions: - Discharge Summary Sheet kdr - Sickle Cell Anemia, Adult kdr Forms: - Medication Reconciliation Form kdr - Thank You Letter kdr - Work release form [facility] Signatures: Dispatcher [employer] Chico Mazariegos MD MD kdr Kayla Kohler, RN Mateusz Donis RN RN jl7 [employer] HealthcareMamta baca RN RN jh6
--- NOTE | 2021-04-13 13:40 | RAD REPORT ---
EXAM DESCRIPTION: US - CP - 04/13/2021 1:02 pm CLINICAL HISTORY: Pain and swelling to the left superior carotid artery COMPARISON: No comparisons TECHNIQUE: Real-time sonographic evaluation of both carotid systems was performed. Doppler interroga tion was performed with waveform tracing bilaterally. FINDINGS: Normal high resistance waveforms are noted in both external carotid arteries. The common c arotid arteries and internal carotid arteries show normal low resistance waveforms. No significant plaque formation is seen. Peak systolic and end diastolic velocity values and the ICA/ CCA ratios are in the non-hemodynamically significant range. Antegrade flow seen in both vertebral arteries. Bilateral cervical chain lymph nodes are enlarged. One of the left cervical chain lymph nodes measure s 35 mm x 9 mm. IMPRESSION: No significant atherosclerotic changes noted. No evidence of a hemodynamically significant stenosis. Left cervical chain lymphadenopathy of uncertain etiology.
--- NOTE | 2021-04-13 13:40 | ER ---
Nurse's Notes [facility] Name: Gume Ortega Age: 30 yrs Sex: Female : 1990 Arrival Date: 04/13/2021 Time: 08:55 Bed 15 Private MD: Diagnosis: Other sickle-cell disorders with crisis;Dehydration Presentation: 04/13 08:59 Chief complaint: Patient states: Pain all over, swelling to left side of neck x 1 day, jl7 reports "This is where I had my first blood clot 5 years ago.". Coronavirus screen: At this time, the client does not indicate any symptoms associated with coronavirus-19. Ebola Screen: No symptoms or risks identified at this time. Initial Sepsis Screen: Does the patient meet any 2 criteria? No. Patient's initial sepsis screen is negative. Does the patient have a suspected source of infection? No. Patient's initial sepsis screen is negative. Risk Assessment: Do you want to hurt yourself or someone else? Patient reports no desire to harm self or others. Onset of symptoms was April 12, 2021. Care prior to arrival: None. 08:59 Method Of Arrival: Ambulatory [facility] 08:59 Acuity: MARILUZ 3 jl7 Triage Assessment: 09:02 General: Appears in no apparent distress. uncomfortable, Behavior is calm, cooperative, jl7 appropriate for age. Pain: Complains of pain in all over Pain currently is 10 out of 10 on a pain scale. 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 - Social history:: Smoking status: Patient denies any tobacco usage or history of. Patient uses street drugs, marijuana. Screenin:36 Abuse screen: Denies threats or abuse. Nutritional screening: No deficits noted. jh6 Tuberculosis screening: No symptoms or risk factors identified. Fall Risk None identified. Assessment: 09:35 General: Appears in no apparent distress. comfortable, Behavior is calm, cooperative. jh6 Pain: Complains of pain in left jaw Pain currently is 10 out of 10 on a pain scale. Quality of pain is described as aching. 11:39 Reassessment: Patient is alert, oriented x 3, equal unlabored respirations, skin jh6 warm/dry/pink. Patient states feeling better. 12:32 Reassessment: Patient is alert, oriented x 3, equal unlabored respirations, skin jh6 warm/dry/pink. Patient states symptoms have not improved. states that the pain is getting worse again. pt states that she normally takes Dilaudid at home 8mg but is out until the 23rd of this mo. States that she has pain meds at home but they do not work as well as the Dilaudid. 13:40 Reassessment: Patient is alert, oriented x 3, equal unlabored respirations, skin jh6 warm/dry/pink. Patient states symptoms have improved. General: Appears comfortable, Behavior is calm. Vital Signs: 08:59 BP 122 / 76; Pulse 71; Resp 15; Temp 97.6; Pulse Ox 100% ; Weight 71.21 kg; Height 5 jl7 ft. 2 in. (157.48 cm); Pain 10/10; 11:30 BP 118 / 58; Pulse 78; Resp 17; Temp 97.8; Pulse Ox 100% ; jh6 12:32 BP 116 / 62; Pulse 55; Resp 18; Pulse Ox 100% ; jh6 13:38 BP 101 / 61; Pulse 48; Resp 18; Temp 97.6(O); Pulse Ox 100% ; Pain 5/10; jh6 08:59 Body Mass Index 28.71 (71.21 kg, 157.48 cm) jl7 ED Course: 08:55 Patient arrived in ED. as 09:02 Triage completed. jl7 09:02 Arm band placed on right wrist. jl7 09:07 Chico Menezes MD is Attending Physician. kdr 09:09 Hastedt, Mamta, RN is Primary Nurse. jh6 09:34 Inserted port lt side of chest. jh6 09:35 Initial lab(s) drawn, by al, sent to lab. jh6 09:37 Side rails up X 1. Adult w/ patient. jh6 09:37 CBC with Automated Diff Sent. jh6 09:37 Liver (Hepatic) Function Sent. jh6 09:37 Basic Metabolic Panel Sent. jh6 13:01 US Carotid Artery Bilateral In Process Unspecified. EDMS 14:07 No provider procedures requiring assistance completed. IV discontinued, intact, jh6 bleeding controlled, No redness/swelling at site. Pressure dressing applied. Administered Medications: 09:37 Drug: NS 0.9% 1000 ml Route: IV; Rate: 1 bolus; Site: Port-a-cath; jh6 11:10 Not Given (Patient Refused; states that is makes her vomitt): Zofran (Ondansetron) 4 mg 6 IVP once; over 2 minutes 11:11 Drug: Dilaudid (HYDROmorphone) 2 mg Route: IVP; Site: Port-a-cath; 6 13:28 Drug: Dilaudid (HYDROmorphone) 2 mg Route: IVP; Site: Port-a-cath; 6 13:43 Follow up: Response: Pain is decreased jh6 13:55 Drug: Hep-Lock 500 units Route: IVP; Site: Port-a-cath; jh6 14:07 Follow up: Response: No adverse reaction 6 Outcome: 13:39 Discharge ordered by . kdr 14:08 Discharged to home ambulatory. jh6 14:08 Condition: good 14:08 Discharge instructions given to patient, Instructed on discharge instructions, follow up and referral plans. Demonstrated understanding of instructions, follow-up care. 14:09 Patient left the ED. jh6 Signatures: Dispatcher [employer] EDMS Chico Menezes MD MD kdr Martinez, Amelia as Leal, Jahala, RN RN jl7 Mamta Sam, RN RN jh6
[2021-04-13] MEDS ORDERED: HEPARIN 500 UNIT/5 ML SYR IV ONE (13:51)
[2021-04-13 14:32] VITALS: O2SAT 100
[2021-04-13 14:36] VITALS: BP 101/61; TEMP 97.6
== END 2021-04-13 14:09 | disposition home or self-care (01) ==
LOC: ER 08:53
DX: D57.819 Other sickle-cell disorders with crisis, unspecified (principal); E86.0 Dehydration; Z88.2 Allergy status to sulfonamides
CPT/HCPCS: 85025; 80048; 36415; 85044; 80076; 93880; 96375; 96374; 99284; J1170 ×2; J1642; J3315; J7030; J2405

== ENCOUNTER 2021-06-29 12:48 | Emergency (ER) | payer OTHER ==
--- OUTSIDE RECORDS SUMMARY | 2021-06-29 12:52 | XMS REPORT | Continuity of Care Document ---
:1990 Author Organization [facility] t Address [address] [place] [place] [address] Support Name Relationship Address Phone CLINTON DELEON MD E Admitting Provider 17[address] [facility] [address] [place] [address] JESSICA SIDDIQUI Primary Care Physician [address] [facility] [id number] [phone] [place] [address] VIJAYA MULLEN MD A Emergency Provider 2869 [facility] [place] [address] NAIMA MULLEN Attending Provider [address] [place] [address] JORDAN Next of Kin [address] [place] [address] IZZY MULLEN, E Emergency Provider [address] [facility] [address] [place] [address] PHYSICIAN Primary Care Physician Unavailable Unavailab chrissy GRISSOM MD, MD Emergency Provider [address] [phone] [place] [address] OTHER, NAME IN NOTES Primary Care Physician Unavailable Sylvie vailacharity SHIN MD, MD Emergency Provider [address] [place] [address] ISABELLA MULLEN MD MORE Admitting Provider [address] [phone] [place] [address] FRANCIS Primary Care Physician [address] [place] [address] MD AMRITA A Emergency Provider [place] [address] MD ADRIANA Emergency Provider Unavailable Unavailable MD STACY S Emergency Provider [address] [place] [id number] MD AMAN Emergency Provider [address] [phone] [place] [id number] [address] [place] [id number] [address] [phone] [place] [id number] [address] [place] [address] Jordan Brother [address] [place] [id number] DENI Unavailable [address] [facility] [phone] [place] [id number] JORDAN Unavailable [address] [facility] [phone] [place] [address] JORDAN Unavailable [address] [facility] [phone] [place] [address] Care Team Providers Name Role Phone Shaikh PAZ, [facility] Primary Care Physician BRENDA Attending Clinician Unavailable JOSE CORREA Attending Clinician Unavailable [place] SHAH Attending Clinician Unavailable Kaur MCCLOUD Attending Clinician Unavailable ERIBERTO WOODRUFF Attending Clinician Unavailable BRENDA Admitting Clinician Unavailable YANETH PEGUERO Admitting Clinician Unavailable Antonia CARTER Admitting Clinician Unavailable Payers Payer Name Policy Type Policy Number Effective Date Expiration Date S ource Problems Condition Condition Condition Status Onset Resolution Last Treating Co mments Source Name Details Category Date Date Treatment Clinician Date Leukocytos Leukocytos Disease Active [facility] [place] Pneumonia Pneumonia Disease [facility] [place] 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[facility] - anemia anemia 00:00: Medical 00 [place] 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[facility] - crisis crisis 00:00: Medical 00 [place] Allergies, Adverse Reactions, Alerts Allergy Allergy Status Severity Reaction(s) Onset Inactive Treating Comm ents Source Name Type Date Date Clinician Ondanset Drug Active Nausea And [facility] Hcl Intolera Vomiting 2- [facility] - (Pf) nce 00:00: Medical 00 [place] morphine DA Active SV 2009-0 [facility] 3[facility]11 [place] 00:00: d 00 [facility] TEGEDERM DA Active [place] 2008-0 [facility]ESS[facility] 8[facility]23 [place] 00:[facility] Family History Family Member Diagnosis Comments Start Date Stop Date Source Natural mother Sickle cell trait [facility] Natural sister Unremarkable [facility] Natural brother Unremarkable [facility] Natural father Seizures [facility] Natural father Sickle cell trait [facility] Social History Social Habit Start Date Stop Date Quantity Comments Source Alcohol intake 2018-08-02 2018-08-02 Current [facility] es - 00:00:00 00:00:00 non-drinker of Medical nter alcohol (finding) Tobacco use and 2015-07-10 2015-07-10 Never used [facility] Ariana kes - exposure 00:00:00 00:00:00 [facility] Sex Ass[birth year] [facility] - 00:00:00 00:00:00 [facility] Smoking Status Start Date Stop Date Source Never smoker [facility] Medications Ordered Filled Start Stop Current [...] mouth once Medi rita 00 a week. [place] VITAMIN D2 Yes 1{capsu Q7D Take [address] [facility]000 unit 2-25 le} capsule by Ariana kes - capsule 00:00: mouth once Medi rita 00 a week. [place] VITAMIN D2 Yes 1{capsu Q7D Take [address] [facility],000 unit 2-25 le} capsule by Ariana kes - capsule 00:00: mouth once Medi rita 00 a week. [place] VITAMIN D2 Yes 1{capsu Q7D Take [address] [facility],000 unit 2-25 le} capsule by Ariana kes - capsule 00:00: mouth once Medi rita 00 a week. [place] VITAMIN D2 Yes 1{capsu Q7D Take 1 [...] tablet (eight) hours as needed nausea. prochlorper 2019- Yes 1{tbl} Take 1 [facility] [...] [facility] cervix (procedure) [code = 905395556] Future Scheduled 2012-09-[address] [facility] - Test 00:00:00 malignant neoplasm of [facility] cervix (procedure) [code = 128598041] Future Scheduled 2012-09-[address] [facility] - Test 00:00:00 malignant ne[facility] cervix (procedure) [code = 993386388] Future Scheduled 2012-09-[address] [facility] - Test 00:00:00 malignant neoplasm of [facility] cervix (procedure) [code = 241225992] Future Scheduled 2012-09-[address] [facility] - Test 00:00:00 malignant neoplasm of [facility] Center cervix (procedure) [code = 231277417] Future Scheduled [address] [facility] - Test 00:00:00 (procedure) [code = [facility] 52906225] Future Scheduled [address] [facility] - Test 00:00:00 (procedure) [code = [facility] 20140078] Future Scheduled [address] [facility] - Test 00:00:00 (procedure) [code = [facility] 57038669] Future Scheduled [address] [facility] - Test 00:00:00 (procedure) [code = [facility] 26338033] Future Scheduled [address] [facility] - Test 00:00:00 (procedure) [code = [facility] 62458946] Future Scheduled 2010-09-05 DTAP/TDAP/TD VACCINES CH I [...] Date/Time Type Type Clinicians Facility Department ID 2021-06-05 2021-06-08 Inpatient E PERLITA GUTIERREZ MED 7526 [facility] 04:10:00 13:24:00 [facility] 2021-06-03 2021-06-03 Emergency E SUNNY GABRIELE [facility] 02:02:00 14:43:00 RAHEL 2021-04-04 2021-04-04 Emergency E JENNIFER SHAH [facility] 7524 [facility] 02:21:00 06:06:00 2021-02-26 2021-03-04 Inpatient E AME, [facility] 7523 [facility] 15:00:00 16:50:00 AAMIR 2021-02-18 2021-02-23 Inpatient E BRENDA, [facility] MED 7521 [facility] 16:11:00 16:32:00 [facility] 2019-06-14 2019-06-14 Emergency E MHBL [facility] 7520 [...] Test Comments Results Result Comments Source SARS-COV2/RT-PCR ([facility]) 2019-11-14 17:47:00 Test Item Value Reference Range Interpretation Comme nts SARS-COV2/RT-PCR (test code = 3191819) Negative Not Detected, N egative SARS-COV-2 PERFORMING LAB (test code = 6485792) [facility] Negative results do not preclude SARS-CoV-2 infection [...] of the Act.Fact Sheet for Healthcare Pro viders:https://www.[employer] ([employer]).[employer] ([employer]OOF)/Documents/Xpert%20Xpress%20SARS%20CoV-2/Fact%20Sh eets/302-3802%82DAXB-HCB-0%20HEALTHCARE%20PROVIDERS%20FACT%20SHEET.pdfFact Sheet for Healthcare Patients:https://www.[employer] ([employer])/Documents/Xpert%20Xpress%20SARS%20CoV-2/Fact%20Sheets/302-3801%20SARS-COV -2%20PATIENT%20FACT%20SHEET.pdfPerforming Laboratory:[address] StreetvanessaUniversity Of New [place] Hospitals, [place] [address]UGG W/PLT COUNT & AUTO DIFFERENTIAL 2018-08-10 08:25:00 [...] 3438) Received comment: User comments: Slide comments:RETICULOCYTE [id number] 08:06:00 Test Item Value Reference Range Interpretation Comments RETICULOCYTE COUNT PCT (BEAKER) (test 25.0 % 0.5-1.7 H code = 575) CBC W/PLT COUNT & AUTO [id number] 09:27:00 Test Item Value Reference Range Interpretation [...] 3438) Received comment: User comments: Slide comments:RETICULOCYTE [id number] 05:01:00 Test Item Value Reference Range Interpretation Comments RETICULOCYTE COUNT PCT (BEAKER) (test 21.6 % 0.5-1.7 H code = 575) CBC W/PLT COUNT & AUTO [id number] 15:17:00 Test Item Value Reference Range Interpretation [...] H (BEAKER) (test code = 413) RETICULOCYTE [id number] 08:44:00 Test Item Value Reference Range Interpretation Comments RETICULOCYTE COUNT PCT (BEAKER) (test 23.8 % 0.5-1.7 H code = 575) BLOOD [id number] 14:01:00 Test Item Value Reference Range Interpretation Comments CULTURE (BEAKER) (test No growth in 5 days code = 1095) BLOOD [id number] 12:01:00 Test Item Value Reference Range Interpretation Comments CULTURE (BEAKER) (test No growth in 5 days code = 1095) CBC W/PLT COUNT & AUTO [id number] 11:38:00 Test Item Value Reference Range Interpretation [...] (BEAKER) (test code 3+ many = 767) BUTR-JOLLY BODIES (BEAKER) 1+ few (test code = 475) ARTIFACT (CELLAVISION)(BEAKER) Present (test code = 3432) PLATELET CONCENTRATION Increased (CELLAVISION)(BEAKER) (test code = 3438) Received comment: User comments: Slide comments:RETICULOCYTE [id number] 07:44:00 Test Item Value Reference Range Interpretation Comments RETICULOCYTE COUNT PCT (BEAKER) (test 27.0 % 0.5-1.7 H code = 575) RETICULOCYTE [id number] 07:19:00 Test Item Value Reference Range Interpretation Comments RETICULOCYTE COUNT PCT (BEAKER) (test 22.7 % 0.5-1.7 H code = 575) CBC W/PLT COUNT & AUTO [id number] 12:07:00 Test Item Value Reference Range Interpretation [...] 3438) Received comment: User comments: Slide comments:RETICULOCYTE [id number] 06:14:00 Test Item Value Reference Range Interpretation Comments RETICULOCYTE COUNT PCT (BEAKER) (test 21.9 % 0.5-1.7 H code = 575) [id number] 06:02:00 Test Item Value Reference Range Interpretation Comments PHOSPHORUS (BEAKER) (test code = 3.8 mg/dL 2.3-4.7 604) [id number] 06:02:00 Test Item Value Reference Range Interpretation Comments MAGNESIUM (BEAKER) (test code = 1.8 mg/dL 1.6-2.6 627) BASIC METABOLIC [id number] 06:02:00 Test Item Value Reference Range Interpretation [...] Specimen moderately ictericCBC W/PLT COUNT & AUTO [id number] 09:09:00 Test Item Value Reference Range Interpretation [...] = 3438) Received comment: User comments: Slide comments:[id number] 04:11:00 Test Item Value Reference Range Interpretation Comments PHOSPHORUS (BEAKER) (test code = 3.3 mg/dL 2.3-4.7 604) [id number] 04:11:00 Test Item Value Reference Range Interpretation Comments MAGNESIUM (BEAKER) (test code = 1.6 mg/dL 1.6-2.6 627) BASIC METABOLIC [id number] 04:11:00 Test Item Value Reference Range Interpretation [...] FOR DIALYSIS PATIEN TS. Specimen slightly ictericRETICULOCYTE [id number] 03:54:00 Test Item Value Reference Range Interpretation Comments RETICULOCYTE COUNT PCT (BEAKER) (test 20.4 % 0.5-1.7 H code = 575) CBC W/PLT COUNT & AUTO [id number] 18:30:00 Test Item Value Reference Range Interpretation [...] = 413) CBC W/PLT COUNT & AUTO [id number] 10:51:00 Test Item Value Reference Range Interpretation [...] 3438) Received comment: User comments: Slide comments:RETICULOCYTE [id number] 10:08:00 Test Item Value Reference Range Interpretation Comments RETICULOCYTE COUNT PCT (BEAKER) (test 14.4 % 0.5-1.7 H code = 575) CBC W/PLT COUNT & AUTO [id number] 09:30:00 Test Item Value Reference Range Interpretation [...] = 3438) Received comment: User comments: Slide comments:[id number] 03:32:00 Test Item Value Reference Range Interpretation Comments PHOSPHORUS (BEAKER) (test code = 3.5 mg/dL 2.3-4.7 604) [id number] 03:32:00 Test Item Value Reference Range Interpretation Comments MAGNESIUM (BEAKER) (test code = 1.8 mg/dL 1.6-2.6 627) BASIC METABOLIC [id number] 03:32:00 Test Item Value Reference Range Interpretation [...] ictericCT, CHEST WITH IV CONTRAST- PE TEST [id number] 14:01:00FINAL REPORT CT scan of the chest. [...] Reading Location: [facility] C013X [facility] Consult Reading Room URINALYSIS W/ REFLEX URINE [id number] 11:27:00 Test Item Value Reference Range Interpretation [...] 516) SOURCE(BEAKER) (test code = 2795) SCREEN, [id number] 11:15:00 Test Item Value Reference Range Interpretation Comments TEST URINE (BEAKER) (test Negative code = 583) RETICULOCYTE [id number] 04:43:00 Test Item Value Reference Range Interpretation Comments RETICULOCYTE COUNT PCT (BEAKER) (test 13.2 % 0.5-1.7 H code = 575) RAD, CHEST, 2 [id number] 03:54:00Reason for exam:->SICKLE CELL PAIN CRISISIs the [...] [place] Verified Date/Time: 08/02/2018 03:54:52Reading Location: [address] Reading Room CBC W/PLT COUNT & [...] (BEAKER) (test code = 417) COMPREHENSIVE METABOLIC [id number] 02:42:00 Test Item Value Reference Range Interpretation [...]
[2021-06-29] MEDS ORDERED: HYDROMORPHONE HCL 2 MG/ML inj ONE ×5 (14:42→19:35)
[2021-06-29] MEDS ORDERED: NA CHLORIDE 0.9% 1,000 ML ONE (14:42)
[2021-06-29 14:54] LABS: Absolute Lymphocytes (CBC) 5.7 K/uL (0.7-4.9); Lymphocytes % 26.7 % (15.3-44.8); MPV 7.9 fL (7.6-11.3); RBC Red Blood Cell Count 2.63 M/uL (3.86-4.86)
[2021-06-29] MEDS ORDERED: PROMETHAZINE INJ 25 MG/ML AMP ONE (15:03)
[2021-06-29 15:04] LABS: Protime INR 1.18
[2021-06-29 15:16] LABS: ALT/SGPT 34 U/L (12-78); AST/SGOT 30 U/L (15-37); Albumin 3.7 g/dL (3.4-5.0); Alkaline Phosphatase 83 U/L (45-117); BUN Blood Urea Nitrogen 3 mg/dL (7-18); Bicarbonate 26 mmol/L (21-32); Bilirubin Direct 0.4 mg/dL (0-0.2); Bilirubin Total 4.3 mg/dL (0.2-1.0); Glucose Level 100 mg/dL (74-106); Magnesium 1.8 mg/dL (1.8-2.4); NT PRO-BNP 26 pg/mL (<125); Sodium Level 140 mmol/L (136-145)
--- NOTE | 2021-06-29 15:47 | RAD REPORT ---
EXAM DESCRIPTION: RAD - Chest Single View - 06/29/2021 2:37 pm CLINICAL HISTORY: CHEST PAIN, sickle cell crisis COMPARISON: Portable chest February 2021 TECHNIQUE: AP portable chest image was obtained 06/29/2021 2:37 pm . FINDINGS: No new mass or consolidation of the lung parenchyma. Interstitial pattern matches comparis on. Minimal edema or infiltrate could be masked in the lower lung cruz by the chronic interstitial pattern. Left-sided Port-A-Cath in place. Heart and vasculature are normal. No measurable pleural effusion and no pneumothorax. No acute bony abnormality seen. No acute aortic findings suspected. IMPRESSION: No acute cardiopulmonary process. No significant change from comparison.
[2021-06-29 15:50] LABS: Anisocytosis 1+; Blood Morphology Comment NOTED (NOT SEEN); Platelet Estimate INCR; Platelets, Giant PRESENT; Toxic Granulation 1+
[2021-06-29 15:58] LABS: RBC Red Blood Cell Count 2.61 M/uL (3.86-4.86)
[2021-06-29] MEDS ORDERED: POTASSIUM CL SA 10 MEQ TAB PO ONE (17:12)
[2021-06-29] MEDS ORDERED: KCL 20 MEQ/100 mL IVPB 100 ML IV ONE (17:13)
[2021-06-29] MEDS ORDERED: DIPHENHYDRAMINE 50 MG/ML VIAL ONE (17:27)
--- NOTE | 2021-06-29 19:23 | ER ---
Nurse's Notes [facility] Name: Gume Ortega Age: 30 yrs Sex: Female : 1990 Arrival Date: 06/29/2021 Time: 12:51 Bed 25 Private MD: Diagnosis: Other sickle-cell disorders with crisis Presentation: 06/29 13:51 Chief complaint: Patient states: she is hurting everywhere. Pt reports that she take ap3 Dilaudid and the medication is not helping. Coronavirus screen: At this time, the client does not indicate any symptoms associated with coronavirus-19. Ebola Screen: No symptoms or risks identified at this time. Initial Sepsis Screen: Does the patient meet any 2 criteria? No. Patient's initial sepsis screen is negative. Does the patient have a suspected source of infection? No. Patient's initial sepsis screen is negative. Risk Assessment: Do you want to hurt yourself or someone else? Patient reports no desire to harm self or others. Onset of symptoms was June 29, 2021. 13:51 Method Of Arrival: Wheelchair ap3 13:51 Acuity: MARILUZ 3 ap3 Triage Assessment: 13:53 General: Appears in no apparent distress. uncomfortable, Behavior is cooperative, ap3 appropriate for age. Pain: Complains of pain in "all over" Pain currently is 10 out of 10 on a pain scale. Neuro: Level of Consciousness is awake, alert, obeys commands, Oriented to person, place, time, situation, Appropriate for age Speech is normal. Cardiovascular: Patient's skin is warm and dry. Respiratory: Airway is patent. DATABASE ADMIN: 13:54 LMP 06/11/2021 ap3 Historical: - Allergies: 13:52 Morphine; ap3 13:52 Sulfa (Sulfonamide Antibiotics); ap3 13:52 Zofran; ap3 - Home Meds: 13:52 alprazolam 1 mg Oral tab [Active]; dilaudid 8 mg every 6 hours [Active]; Eliquis 2.5 mg ap3 Oral tab 1 tab 2 times per day [Active]; Folic Acid Oral [Active]; Vitamin D Oral [Active]; - PMHx: 13:52 Anxiety; blood clot in lung; Sickle Cell; ap3 - PSHx: 13:52 Port placed to Left Chest; ap3 - Immunization history:: Client reports receiving the 1st dose of the Covid vaccine, Pneumococcal vaccine is up to date. - Social history:: Smoking status: Patient denies any tobacco usage or history of. Patient uses street drugs, marijuana. Screenin:54 Abuse screen: Denies threats or abuse. Nutritional screening: No deficits noted. ap3 Tuberculosis screening: No symptoms or risk factors identified. 14:28 Fall Risk None identified. ab2 Assessment: 14:26 General: Appears in no apparent distress. uncomfortable, Behavior is calm, cooperative, ab2 appropriate for age, crying. Pain: Complains of pain in whole body. 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 Gait is steady, Speech is normal, Facial symmetry appears normal. Cardiovascular: No deficits noted. Heart tones S1 S2 Patient's skin is warm and dry. Respiratory: No deficits noted. Airway is patent Respiratory effort is even, unlabored, Respiratory pattern is regular, symmetrical, Breath sounds are clear bilaterally. GI: No deficits noted. No signs and/or symptoms were reported involving the gastrointestinal system. Abdomen is round non-distended, Bowel sounds present X 4 quads. : No deficits noted. No signs and/or symptoms were reported regarding the genitourinary system. EENT: No deficits noted. No signs and/or symptoms were reported regarding the EENT system. Derm: No deficits noted. No signs and/or symptoms reported regarding the dermatologic system. Skin is intact, is healthy with good turgor, Skin is dry, Skin is pink, warm \\T\\ dry. Skin temperature is warm. Musculoskeletal: No deficits noted. No signs and/or symptoms reported regarding the musculoskeletal system. 15:41 Reassessment: Patient appears in no apparent distress at this time. Port accessed in ab2 left chest. 18:43 Reassessment: Patient appears in no apparent distress at this time. Patient states ab2 symptoms have improved. 19:41 Reassessment: Port flushed with heparin and removed. pt tolerated well. ab2 Vital Signs: 13:51 BP 122 / 58; Pulse 81; Resp 17; Temp 98.5; Pulse Ox 98% ; Weight 70.76 kg; Height 5 ft. ap3 6 in. (167.64 cm); Pain 10/10; 15:28 BP 116 / 70; Pulse 55; Resp 16; Pulse Ox 99% on R/A; ab2 17:15 BP 107 / 48; Pulse 74; Resp 16; Pulse Ox 98% on R/A; ab2 18:22 BP 94 / 45; Pulse 67; Resp 16; Pulse Ox 98% on R/A; ab2 19:22 BP 103 / 64; Pulse 72; Resp 16; Pulse Ox 98% on R/A; ab2 13:51 Body Mass Index 25.18 (70.76 kg, 167.64 cm) ap3 ED Course: 12:51 Patient arrived in ED. ds1 13:52 Triage completed. ap3 13:54 Arm band placed on right wrist. ap3 14:21 Chico Menezes MD is Attending Physician. kdr 14:23 Piotr Perez is Primary Nurse. ab2 14:28 Patient has correct armband on for positive identification. Bed in low position. Call ab2 light in reach. Side rails up X2. 14:28 No provider procedures requiring assistance completed. ab2 14:37 XRAY Chest (1 view) In Process Unspecified. EDMS 14:50 Inserted. ab2 14:52 Basic Metabolic Panel Sent. ab2 14:52 CBC with Diff Sent. ab2 14:52 LFT's Sent. ab2 14:52 Magnesium Sent. ab2 14:52 NT PRO-BNP Sent. ab2 14:52 PT-INR Sent. ab2 14:52 Troponin HS Sent. ab2 19:42 IV discontinued, intact, bleeding controlled, No redness/swelling at site. Pressure ab2 dressing applied. Administered Medications: 14:49 Drug: NS 0.9% 1000 ml Route: IV; Rate: 1 bolus; Site: Other; ab2 18:44 Follow up: Response: No adverse reaction; IV Status: Completed infusion ab2 14:50 Drug: Dilaudid (HYDROmorphone) 2 mg Route: IVP; Site: Other; ab2 18:44 Follow up: Response: No adverse reaction ab2 15:05 Drug: Phenergan (promethazine) 25 mg Route: IVP; Site: Other; ab2 18:44 Follow up: Response: No adverse reaction ab2 15:39 Drug: Dilaudid (HYDROmorphone) 2 mg Route: IVP; Site: Other; ab2 18:44 Follow up: Response: No adverse reaction ab2 16:55 Drug: Dilaudid (HYDROmorphone) 2 mg Route: IVP; Site: Other; ab2 18:43 Follow up: Response: No adverse reaction ab2 17:16 Drug: Potassium Chloride 40 mEq Route: PO; ab2 18:44 Follow up: Response: No adverse reaction ab2 17:17 Drug: Potassium Chloride 20 mEq Route: IV; Rate: calculated rate; Site: Other; ab2 18:44 Follow up: Response: No adverse reaction; IV Status: Completed infusion ab2 17:32 Drug: Dilaudid (HYDROmorphone) 2 mg Route: IVP; Site: Other; ab2 18:43 Follow up: Response: No adverse reaction ab2 17:33 Drug: Benadryl (diphenhydrAMINE) 25 mg Route: IVP; Site: Other; ab2 18:43 Follow up: Response: No adverse reaction ab2 19:35 Drug: Dilaudid (HYDROmorphone) 2 mg Route: IVP; Site: Other; ab2 19:42 Follow up: Response: No adverse reaction ab2 Outcome: 19:22 Discharge ordered by MD. kdr 19:41 Discharged to home via wheelchair, with family. ab2 19:41 Condition: good 19:41 Discharge instructions given to patient, Instructed on discharge instructions, follow up and referral plans. medication usage, Demonstrated understanding of instructions, follow-up care, medications, Prescriptions given X 2. 19:43 Patient left the ED. ab2 Signatures: Dispatcher [employer] EDMS Chico Menezes MD MD kdr Sanford, Demi ds1 Ching Flores RN RN ap3 Piotr Perez ab2 Corrections: (The following items were deleted from the chart) 15:41 14:50 Inserted ab2 ab2
--- NOTE | 2021-06-29 19:23 | EDPHYS ---
Physician Documentation [facility] Name: Gume Ortega Age: 30 yrs Sex: Female : 1990 Arrival Date: 06/29/2021 Time: 12:51 Bed 25 Private MD: ED Physician Chico Menezes HPI: 06/29 20:02 This 30 yrs old Black Female presents to ER via Wheelchair with complaints of Sickle kdr Cell Crisis. 20:02 Patient has a history of sickle cell disease and periodically presents with an kdr exacerbation that is not controlled by her home medication regimen. That is the case today. She denies any unusual aspect of this presentation as compared to prior ED visits. Subsequently we began a a program of hydration and titrated pain management with Dilaudid IV. Patient responded well to this management. Onset: The symptoms/episode began/occurred 2 day(s) ago. Severity of symptoms: At their worst the symptoms were mild moderate in the emergency department the symptoms are unchanged. The patient has experienced similar episodes in the past, multiple times. The patient has not recently seen a physician. 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 - Social history:: Smoking status: Patient denies any tobacco usage or history of. Patient uses street drugs, marijuana. ROS: 20:02 Constitutional: Negative for fever, chills, and weight loss, Eyes: Negative for injury, kdr pain, redness, and discharge, ENT: Negative for injury, pain, and discharge, Neck: Negative for injury, pain, and swelling, Cardiovascular: Negative for chest pain, palpitations, and edema, Respiratory: Negative for shortness of breath, cough, wheezing, and pleuritic chest pain, Abdomen/GI: Negative for abdominal pain, nausea, vomiting, diarrhea, and constipation, Back: Negative for injury and pain, : Negative for injury, bleeding, discharge, and swelling, Skin: Negative for injury, rash, and discoloration, Neuro: Negative for headache, weakness, numbness, tingling, and seizure activity. Psych: Negative for depression, anxiety, suicide ideation, homicidal ideation, and hallucinations, Allergy/Immunology: Negative for hives, rash, and allergies, Endocrine: Negative for neck swelling, polydipsia, polyuria, polyphagia, and marked weight changes, Hematologic/Lymphatic: Negative for swollen nodes, abnormal bleeding, and unusual bruising. 20:02 MS/extremity: Positive for Patient generally hurting all over without any focal, localized pain site. This is typical for her sickle cell crisis presentation. Exam: 20:02 Constitutional: This is a well developed, well nourished patient who is awake, alert, kdr and in no acute distress. Head/Face: Normocephalic, atraumatic. Eyes: Pupils equal round and reactive to light, extra-ocular motions intact. Lids and lashes normal. Conjunctiva and sclera are non-icteric and not injected. Cornea within normal limits. Periorbital areas with no swelling, redness, or edema. Chest/axilla: Normal chest wall appearance and motion. Nontender with no deformity. No lesions are appreciated. Cardiovascular: Regular rate and rhythm with a normal S1 and S2. No gallops, murmurs, or rubs. Normal PMI, no JVD. No pulse deficits. Respiratory: Lungs have equal breath sounds bilaterally, clear to auscultation and percussion. No rales, rhonchi or wheezes noted. No increased work of breathing, no retractions or nasal flaring. Abdomen/GI: Soft, non-tender, with normal bowel sounds. No distension or tympany. No guarding or rebound. No evidence of tenderness throughout. Back: No spinal tenderness. No costovertebral tenderness. Full range of motion. Skin: Warm, dry with normal turgor. Normal color with no rashes, no lesions, and no evidence of cellulitis. MS/ Extremity: Pulses equal, no cyanosis. Neurovascular intact. Full, normal range of motion. Neuro: Awake and alert, GCS 15, oriented to person, place, time, and situation. Cranial nerves II-XII grossly intact. Motor strength 5/5 in all extremities. Sensory grossly intact. Cerebellar exam normal. Normal gait. Psych: Awake, alert, with orientation to person, place and time. Behavior, mood, and affect are within normal limits. Vital Signs: 13:51 BP 122 / 58; Pulse 81; Resp 17; Temp 98.5; Pulse Ox 98% ; Weight 70.76 kg; Height 5 ft. ap3 6 in. (167.64 cm); Pain 10/10; 15:28 BP 116 / 70; Pulse 55; Resp 16; Pulse Ox 99% on R/A; ab2 17:15 BP 107 / 48; Pulse 74; Resp 16; Pulse Ox 98% on R/A; ab2 18:22 BP 94 / 45; Pulse 67; Resp 16; Pulse Ox 98% on R/A; ab2 19:22 BP 103 / 64; Pulse 72; Resp 16; Pulse Ox 98% on R/A; ab2 13:51 Body Mass Index 25.18 (70.76 kg, 167.64 cm) ap3 MDM: 19:22 Patient medically screened. kdr 20:02 Data reviewed: vital signs, nurses notes, lab test result(s). Counseling: I had a kdr detailed discussion with the patient and/or guardian regarding: the historical points, exam findings, and any diagnostic results supporting the discharge/admit diagnosis, lab results, the need for outpatient follow up. 20:06 ED course: Patient responded well to the interventions given was happy with the care kdr provided the plan for discharge and follow-up. 20:21 ED course: The laboratory findings, it was noted that the patient's white count was kdr elevated similar to her prior visit. At that time of the prior visit, she was admitted to the hospital and given IV antibiotics though a source was not found. I contacted the patient at the number on the chart. I informed her of the elevated white count and that we had admitted her on her prior visit when it was at this level. She acknowledged that information. I invited her to return to the ED if she was feeling worse or not getting better in any way. I also informed her that I would call her tomorrow at about this time to check on her and make sure that she was still doing well. Again I reiterated that if she were getting worse in any way that she should come back as soon as possible. She indicated that she would do so if things were not improving.. 06/29 14:22 Order name: Basic Metabolic Panel; Complete Time: 16:13 kdr 06/29 14:22 Order name: CBC with Diff; Complete Time: 16: kdr 06/29 14:22 Order name: LFT's; Complete Time: 16: kdr 06/29 14:22 Order name: Magnesium; Complete Time: 16: kdr 06/29 14:22 Order name: NT PRO-BNP; Complete Time: 16: kdr 06/29 14:22 Order name: PT-INR; Complete Time: 16: kdr 06/29 14:22 Order name: Troponin HS; Complete Time: 16: kdr 06/29 14:22 Order name: XRAY Chest (1 view); Complete Time: 16: kdr 06/29 15:25 Order name: Retic Count; Complete Time: 16: kdr 06/29 15:50 Order name: Manual Differential; Complete Time: 16:13 EDMS 06/29 14:22 Order name: EKG; Complete Time: 14:23 kdr 06/29 14:22 Order name: Cardiac monitoring; Complete Time: 14:52 kdr 06/29 14:22 Order name: EKG - Nurse/Tech; Complete Time: 14:36 kdr 06/29 14:22 Order name: IV Saline Lock; Complete Time: 14:52 kdr 06/29 14:22 Order name: Labs collected and sent; Complete Time: 14:52 kdr 06/29 14:22 Order name: O2 Per Protocol; Complete Time: 14:52 kdr 06/29 14:22 Order name: O2 Sat Monitoring; Complete Time: 14:52 kdr 06/29 14:25 Order name: Oxygen; Complete Time: 14:52 kdr Administered Medications: 14:49 Drug: NS 0.9% 1000 ml Route: IV; Rate: 1 bolus; Site: Other; ab2 18:44 Follow up: Response: No adverse reaction; IV Status: Completed infusion ab2 14:50 Drug: Dilaudid (HYDROmorphone) 2 mg Route: IVP; Site: Other; ab2 18:44 Follow up: Response: No adverse reaction ab2 15:05 Drug: Phenergan (promethazine) 25 mg Route: IVP; Site: Other; ab2 18:44 Follow up: Response: No adverse reaction ab2 15:39 Drug: Dilaudid (HYDROmorphone) 2 mg Route: IVP; Site: Other; ab2 18:44 Follow up: Response: No adverse reaction ab2 16:55 Drug: Dilaudid (HYDROmorphone) 2 mg Route: IVP; Site: Other; ab2 18:43 Follow up: Response: No adverse reaction ab2 17:16 Drug: Potassium Chloride 40 mEq Route: PO; ab2 18:44 Follow up: Response: No adverse reaction ab2 17:17 Drug: Potassium Chloride 20 mEq Route: IV; Rate: calculated rate; Site: Other; ab2 18:44 Follow up: Response: No adverse reaction; IV Status: Completed infusion ab2 17:32 Drug: Dilaudid (HYDROmorphone) 2 mg Route: IVP; Site: Other; ab2 18:43 Follow up: Response: No adverse reaction ab2 17:33 Drug: Benadryl (diphenhydrAMINE) 25 mg Route: IVP; Site: Other; ab2 18:43 Follow up: Response: No adverse reaction ab2 19:35 Drug: Dilaudid (HYDROmorphone) 2 mg Route: IVP; Site: Other; ab2 19:42 Follow up: Response: No adverse reaction ab2 Disposition Summary: 06/29/21 19:22 Discharge Ordered Location: Home kdr Problem: new kdr Symptoms: have improved kdr Condition: Stable kdr Diagnosis - Other sickle-cell disorders with crisis kdr Followup: kdr - With: Private Physician - When: 2 - 3 days - Reason: If symptoms return, Further diagnostic work-up, Recheck today's complaints, Continuance of care, Re-evaluation by your physician Discharge Instructions: - Discharge Summary Sheet kdr - Sickle Cell Anemia, Adult, [id number] kdr Forms: - Medication Reconciliation Form kdr - Thank You Letter kdr - Prescription Opioid Use kdr Prescriptions: - promethazine 25 mg Oral Tablet - take 1 tablet by ORAL route every 6 hours As needed; 20 tablet; Refills: 0, kdr Product Selection Permitted - Tylenol-Codeine #3 300 mg-30 mg Oral - take 1 tablet by ORAL route every 4-6 hours As needed; 12 tablet; Refills: 0, kdr Product Selection Permitted Signatures: Dispatcher [employer] Chico Mazariegos MD MD kdr Prokisch, Amanda, RN RN ap3 Piotr Perez
[2021-06-29] MEDS ORDERED: HEPARIN 500 UNIT/5 ML SYR IV ONE (19:38)
[2021-06-29 20:05] VITALS: TEMP 98.5
[2021-06-29 20:08] VITALS: O2SAT 98
[2021-06-29 20:10] VITALS: BP 103/64
--- NOTE | 2021-06-30 13:07 | EKG ---
Test Date: 2021-06-29 Test Time: 14:50:29 Funding Coordinator: GIANNA MEASUREMENT RESULTS: Intervals: Rate: 68 SD: 126 QRSD: 76 QT: 394 QTc: 418 [place]: P: 35 SD: 126 QRS: 65 T: 57 INTERPRETIVE STATEMENTS: Normal sinus rhythm with sinus arrhythmia Normal ECG Compared to ECG 01/22/2021 03:51:45 No significant changes Electronically Signed On 06-30-21 13:03:07 CASTING AGENT by Jeremie Pan
== END 2021-06-29 19:43 | disposition home or self-care (01) ==
LOC: ER 12:48
DX: D57.819 Other sickle-cell disorders with crisis, unspecified (principal); F41.9 Anxiety disorder, unspecified; Z79.01 Long term (current) use of anticoagulants; Z88.2 Allergy status to sulfonamides; Z88.5 Allergy status to narcotic agent
CPT/HCPCS: 96365; 96361; 93005; 85025; 80048; 36415; 83735; 85610; 85044; 80076; 84484; 83880; 71045; 96375; 99284; J2550; J1200; J3480; J1170 ×5; J1642; J7030

== ENCOUNTER 2021-06-30 16:10 | Inpatient (IN) | payer OTHER ==
--- OUTSIDE RECORDS SUMMARY | 2021-06-30 16:14 | XMS REPORT | Continuity of Care Document ---
:1990 Author Organization [facility] t Address [address] [place] [address] Support Name Relationship Address Phone [address] [place] [address] [address] [place] [address] DENI Unavailable [phone] [facility] [phone] [place] [address] [place] [address] [address] [facility] [address] [phone] [place] [address] [place] [address] [address] [facility] [address] [phone] [place] [address] JORDAN Unavailable [id number] [facility] [phone] [place] [address] JORDAN Unavailable [phone] [facility] [phone] [place] [address] CLINTON DELEON MD E Admitting Provider [address] [facility] [address] [place] [address] JESSICA SIDDIQUI Primary Care Physician [address] [facility] [address] [phone] [place] [address] VIJAYA MULLEN MD A Emergency Provider [address] [place] [address] NAIMA MULLEN Attending Provider [address] [place] [address] IZZY MULLEN, E Emergency Provider [address] [facility] [address] [place] [address] PHYSICIAN Primary Care Physician Unavailable Unavailab chrissy GRISSOM MD, MD Emergency Provider [address] [place] [address] OTHER, NAME IN NOTES Primary Care Physician Unavailable Sylvie caity GRANTE MD, MD Emergency Provider [address] [place] [address] ISABELLA MULLEN MD MORE Admitting Provider [address] [phone] [place] [address] FRANCIS Primary Care Physician [address] [place] [address] MD AMRITA A Emergency Provider [facility] [address] MD ADRIANA Emergency Provider Unavailable Unavailable MD Lester KUMAR Emergency Provider [address] [place] [address] MD AMAN Emergency Provider [address] [phone] [place] [address] [place] [address] Care Team Providers Name Role Phone Tasha Campos MD Primary Care Physician BRENDA Attending Clinician Unavailable [...] [facility] 00 [place] Pneumonia Pneumonia Disease Active [facility] 00 [place] 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[facility] cell 2-29 [facility] - anemia anemia 00:00: Medical 00 [place] 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[facility] cell cell 2- [facility] - crisis crisis 00:00: Medical 00 [place] Allergies, Adverse Reactions, Alerts Allergy Allergy Status Severity Reaction(s) Onset Inactive Treating Comm ents Source Name Type Date Date Clinician Ondanset Drug Active Nausea And [facility] Hcl Intolera Vomiting - [facility] (Pf[facility] 00 Center morphine DA Active [facility] 2010-0 [facility] 3-11 [place] 00:00: d 00 Medical [place] TEGEDERM DA Active [facility] 2008-[facility]ESS[facility] 8[facility]23 [place] 00:[facility] Family History Family Member Diagnosis Comments Start Date Stop Date Source Natural mother Sickle cell trait [facility] Natural sister Unremarkable [facility] Natural brother Unremarkable [facility] Natural father Seizures [facility] Natural father Sickle cell trait [facility] Social History Social Habit Start Date Stop Date Quantity Comments Source Alcohol intake 2018-08-02 2018-08-[address] [facility] es - 00:00:00 00:00:00 non-drinker of Medical nter alcohol (finding) Tobacco use and 2015-07-10 2015-07-10 Never used [facility] St Ariana kes - exposure 00:00:00 00:00:00 [facility] Sex Ass[birth year] At [birth year] [facility] - 00:00:00 00:00:00 [facility] Smoking Status Start Date Stop Date Source Never smoker [facility] Medications Ordered Filled Start Stop Current [...] tablet 58 (two) Center times daily. ALPRAZolam 0 Yes 1mg Take 1 mg [facility] I [...] mouth once Medi rita 00 a week. [place] VITAMIN D2 Yes 1{capsu Q7D Take [address] [facility],000 unit 2-25 le} capsule by Ariana kes - capsule 00:00: mouth once Medi rtia 00 a week. [place] VITAMIN D2 Yes 1{capsu Q7D Take [address] 50,000 unit 2-25 le} capsule by Ariana kes - capsule 00:00: mouth once Medi rita 00 a week. [place] VITAMIN D2 Yes 1{capsu Q7D Take [address] 50,000 unit 2-25 le} capsule by Ariana kes - capsule 00:00: mouth once Medi rita 00 a week. [place] VITAMIN D2 Yes 1{capsu Q7D Take [address] 50,000 unit 2-25 le} capsule by Ariana kes - capsule 00:00: mouth once Medi rita 00 a week. [place] PROAIR HFA Yes 1{puff} Inhale 1 [facility] [...] [facility] l Center cervix (procedure) [code = 635393932] Future Scheduled 2012-09-[address] [facility] - Test 00:00:00 malignant neoplasm of [facility]ica [facility] Center cervix (procedure) [code = 895875808] Future Scheduled 2012-09-[address] [facility] - Test 00:00:00 malignant neoplasm of [facility] Center cervix (procedure) [code = 338858388] Future Scheduled 2012-09-[address] [facility] - Test 00:00:00 malignant neoplasm of [facility] Center cervix (procedure) [code = 326409974] Future Scheduled 2012-09-[address] [facility] - Test 00:00:00 malignant neoplasm of [facility] Center cervix (procedure) [code = 260310654] Future Scheduled [address] [facility] - Test 00:00:00 (procedure) [code = [facility] 15085858] Future Scheduled [address] [facility] - Test 00:00:00 (procedure) [code = [facility] 72251458] Future Scheduled [address] [facility] - Test 00:00:00 (procedure) [code = [facility] 02036838] Future Scheduled [address] [facility] - Test 00:00:00 (procedure) [code = [facility] 75619410] Future Scheduled [address] [facility] - Test 00:00:00 (procedure) [code = [facility] 76072544] Future Scheduled 2010-09-05 DTAP/TDAP/TD VACCINES CH I [...] 2021-06-08 Inpatient E PERLITA GUTIERREZ MED [address] [facility] 04:10:00 13:24:00 AUR[place]A 2021-06-03 2021-06-03 Emergency E SUNNY GABRIELE [facility] [facility] 02:02:00 14:43:00 RAHEL 2021-04-04 2021-04-04 Emergency E JENNIFER SHAH [facility]24 [facility] 02:21:00 06:06:00 2021-02-26 2021-03-04 Inpatient E AME [id number] 15:00:00 16:50:00 AAMIR 2021-02-18 [...] Test Comments Results Result Comments Source SARS-COV2/RT-PCR ([facility]) 2019-11-14 17:47:00 Test Item Value Reference Range Interpretation Comme nts SARS-COV2/RT-PCR (test code = 5234828) Negative Not Detected, N egative SARS-COV-2 PERFORMING LAB (test code = 5629453) [facility] Negative results do not preclude [...] of the Act.Fact Sheet for Healthcare Pro viders:https://www.[employer].Humansized/Documents/Xpert%20Xpress%20SARS%20CoV-2/Fact%20Sh eets/302-3802%99RYLT-MAL-2%20HEALTHCARE%20PROVIDERS%20FACT%20SHEET.pdfFact Sheet for Healthcare Patients:https://www.Sticky id.Humansized/Documents/Xpert%20Xpress%20SARS%20CoV-2/Fact%20Sheets/302-3801%20SARS-COV -2%20PATIENT%20FACT%20SHEET.pdfPerforming Laboratory:[facility] [place] [address], [place] [address]FET W/PLT COUNT & AUTO DIFFERENTIAL 2018-08-10 08:25:00 [...] 3438) Received comment: User comments: Slide comments:RETICULOCYTE [id number] 08:06:00 Test Item Value Reference Range Interpretation Comments RETICULOCYTE COUNT PCT (BEAKER) (test 25.0 % 0.5-1.7 H code = 575) CBC W/PLT COUNT & AUTO [id number] 09:27:00 Test Item Value Reference Range Interpretation [...] 3438) Received comment: User comments: Slide comments:RETICULOCYTE [id number] 05:01:00 Test Item Value Reference Range Interpretation Comments RETICULOCYTE COUNT PCT (BEAKER) (test 21.6 % 0.5-1.7 H code = 575) CBC W/PLT COUNT & AUTO [id number] 15:17:00 Test Item Value Reference Range Interpretation [...] H (BEAKER) (test code = 413) RETICULOCYTE [id number] 08:44:00 Test Item Value Reference Range Interpretation Comments RETICULOCYTE COUNT PCT (BEAKER) (test 23.8 % 0.5-1.7 H code = 575) BLOOD [id number] 14:01:00 Test Item Value Reference Range Interpretation Comments CULTURE (BEAKER) (test No growth in 5 days code = 1095) BLOOD [id number] 12:01:00 Test Item Value Reference Range Interpretation Comments CULTURE (BEAKER) (test No growth in 5 days code = 1095) CBC W/PLT COUNT & AUTO [id number] 11:38:00 Test Item Value Reference Range Interpretation [...] 3438) Received comment: User comments: Slide comments:RETICULOCYTE [id number] 07:44:00 Test Item Value Reference Range Interpretation Comments RETICULOCYTE COUNT PCT (BEAKER) (test 27.0 % 0.5-1.7 H code = 575) RETICULOCYTE [id number] 07:19:00 Test Item Value Reference Range Interpretation Comments RETICULOCYTE COUNT PCT (BEAKER) (test 22.7 % 0.5-1.7 H code = 575) CBC W/PLT COUNT & AUTO [id number] 12:07:00 Test Item Value Reference Range Interpretation [...] 3438) Received comment: User comments: Slide comments:RETICULOCYTE [id number] 06:14:00 Test Item Value Reference Range Interpretation Comments RETICULOCYTE COUNT PCT (BEAKER) (test 21.9 % 0.5-1.7 H code = 575) [id number] 06:02:00 Test Item Value Reference Range Interpretation Comments PHOSPHORUS (BEAKER) (test code = 3.8 mg/dL 2.3-4.7 604) [id number] 06:02:00 Test Item Value Reference Range Interpretation Comments MAGNESIUM (BEAKER) (test code = 1.8 mg/dL 1.6-2.6 627) BASIC METABOLIC [id number] 06:02:00 Test Item Value Reference Range Interpretation [...] Specimen moderately ictericCBC W/PLT COUNT & AUTO [id number] 09:09:00 Test Item Value Reference Range Interpretation [...] = 3438) Received comment: User comments: Slide comments:[id number] 04:11:00 Test Item Value Reference Range Interpretation Comments PHOSPHORUS (BEAKER) (test code = 3.3 mg/dL 2.3-4.7 604) [id number] 04:11:00 Test Item Value Reference Range Interpretation Comments MAGNESIUM (BEAKER) (test code = 1.6 mg/dL 1.6-2.6 627) BASIC METABOLIC [id number] 04:11:00 Test Item Value Reference Range Interpretation [...] FOR DIALYSIS PATIEN TS. Specimen slightly ictericRETICULOCYTE [id number] 03:54:00 Test Item Value Reference Range Interpretation Comments RETICULOCYTE COUNT PCT (BEAKER) (test 20.4 % 0.5-1.7 H code = 575) CBC W/PLT COUNT & AUTO [id number] 18:30:00 Test Item Value Reference Range Interpretation [...] = 413) CBC W/PLT COUNT & AUTO [id number] 10:51:00 Test Item Value Reference Range Interpretation [...] K/uL 0.00-0.00 H (CELLAVISION)(BEAKER) (test code = 1168) TOTAL COUNTED (BEAKER) (test code 100 = [...] 3438) Received comment: User comments: Slide comments:RETICULOCYTE [id number] 10:08:00 Test Item Value Reference Range Interpretation Comments RETICULOCYTE COUNT PCT (BEAKER) (test 14.4 % 0.5-1.7 H code = 575) CBC W/PLT COUNT & AUTO [id number] 09:30:00 Test Item Value Reference Range Interpretation [...] = 3438) Received comment: User comments: Slide comments:[id number] 03:32:00 Test Item Value Reference Range Interpretation Comments PHOSPHORUS (BEAKER) (test code = 3.5 mg/dL 2.3-4.7 604) [id number] 03:32:00 Test Item Value Reference Range Interpretation Comments MAGNESIUM (BEAKER) (test code = 1.8 mg/dL 1.6-2.6 627) BASIC METABOLIC [id number] 03:32:00 Test Item Value Reference Range Interpretation [...] ictericCT, CHEST WITH IV CONTRAST- PE TEST [id number] 14:01:00FINAL REPORT CT scan of the chest. [...] MDReport Verified Date/Time: 08/02/2018 14:01:29 Reading Location: [facility] C013X [facility] Consult Reading Room URINALYSIS W/ REFLEX URINE [id number] 11:27:00 Test Item Value Reference Range Interpretation [...] 516) SOURCE(BEAKER) (test code = 2795) SCREEN, [id number] 11:15:00 Test Item Value Reference Range Interpretation Comments TEST URINE (BEAKER) (test Negative code = 583) RETICULOCYTE [id number] 04:43:00 Test Item Value Reference Range Interpretation Comments RETICULOCYTE COUNT PCT (BEAKER) (test 13.2 % 0.5-1.7 H code = 575) RAD, CHEST, 2 [id number] 03:54:00Reason for exam:->SICKLE CELL PAIN CRISISIs the [...] [place] MDReport Verified Date/Time: 08/02/2018 03:54:52Reading Location: [address] Reading Room CBC W/PLT COUNT & [...] (BEAKER) (test code = 417) COMPREHENSIVE METABOLIC [id number] 02:42:00 Test Item Value Reference Range Interpretation [...]
[2021-06-30] MEDS ORDERED: HYDROMORPHONE HCL 2 MG/ML inj ONE ×2 (16:35→17:55)
[2021-06-30] MEDS ORDERED: PROMETHAZINE INJ 25 MG/ML AMP ONE (16:35)
[2021-06-30] MEDS ORDERED: NA CHLORIDE 0.9% 1,000 ML ONE (16:35)
[2021-06-30 16:58] LABS: Absolute Lymphocytes (CBC) 6.3 K/uL (0.7-4.9); Hematocrit 25.7 % (36.0-45.0); Lymphocytes % 34.2 % (15.3-44.8); MPV 8.8 fL (7.6-11.3)
[2021-06-30 17:12] LABS: BUN Blood Urea Nitrogen 3 mg/dL (7-18); Bicarbonate 27 mmol/L (21-32); Glucose Level 89 mg/dL (74-106); Potassium 3.7 mmol/L (3.5-5.1); Sodium Level 140 mmol/L (136-145)
--- NOTE | 2021-06-30 18:22 | EDPHYS ---
Physician Documentation [facility] Name: Gume Ortega Age: 30 yrs Sex: Female : 1990 Arrival Date: 06/30/2021 Time: 16:14 Bed 13 Private MD: ED Physician Ariel Moreno HPI: 06/30 17:35 This 30 yrs old Black Female presents to ER via EMS with complaints of pain all over. kb 17:35 Pt states she is having a sickle cell crisis. Reports pain all over. Came yesterday and kb didn't want to be admitted, was told to return for worsening symptoms. . Onset: The symptoms/episode began/occurred yesterday. Severity of symptoms: At their worst the symptoms were moderate severe in the emergency department the symptoms are unchanged. The patient has experienced similar episodes in the past, chronically. The patient has not recently seen a physician. Historical: - Allergies: 16:16 Morphine; ww 16:16 Sulfa (Sulfonamide Antibiotics); ww 16:16 Zofran; ww 16:16 Fentanyl; ww - Home Meds: 16:16 alprazolam 1 mg Oral tab [Active]; dilaudid 8 mg every 6 hours [Active]; Eliquis 2.5 mg ww Oral tab 1 tab 2 times per day [Active]; Folic Acid Oral [Active]; Vitamin D Oral [Active]; - PMHx: 16:16 Anxiety; Sickle Cell; blood clot in lung; ww - PSHx: 16:16 Port placed to Left Chest; ww - Immunization history:: Client reports receiving the 1st dose of the Covid vaccine. - Social history:: Smoking status: Patient denies any tobacco usage or history of. Patient uses street drugs, marijuana. ROS: 17:35 Constitutional: Negative for fever, chills, and weight loss. kb 17:35 Constitutional: Positive for pain all over. 17:35 All other systems are negative. Exam: 17:35 Constitutional: This is a well developed, well nourished patient who is awake, alert, kb and in no acute distress. Head/Face: Normocephalic, atraumatic. ENT: Moist Mucous membranes Cardiovascular: Regular rate and rhythm with a normal S1 and S2. No gallops, murmurs, or rubs. No pulse deficits. Respiratory: Respirations even and unlabored. No increased work of breathing. Talking in full sentences Skin: Warm, dry with normal turgor. Normal color. MS/ Extremity: Pulses equal, no cyanosis. Neurovascular intact. Full, normal range of motion. Neuro: Awake and alert, GCS 15, oriented to person, place, time, and situation. Moves all extremities. Normal gait. Psych: Awake, alert, with orientation to person, place and time. Behavior, mood, and affect are within normal limits. Vital Signs: 16:15 BP 141 / 53; Pulse 73; Resp 16; Temp 98.3; Pulse Ox 100% ; Weight 70.76 kg; Height 5 ww ft. 2 in. (157.48 cm); Pain 10/10; 17:04 BP 110 / 64; Pulse 67; Resp 18; Pulse Ox 95% on R/A; ww 17:18 BP 95 / 84; Pulse 57; Resp 18; Pulse Ox 100% on R/A; ww 17:57 BP 101 / 73; Pulse 53; Resp 18; Pulse Ox 99% on R/A; ww 19:58 BP 116 / 52 LA Sitting (auto/reg); Pulse 76 MON; Resp 15 S; Temp 98.2; Pulse Ox 97% on sv1 R/A; Pain 10/10; 16:15 Body Mass Index 28.53 (70.76 kg, 157.48 cm) MDM: 16:19 Patient medically screened. 17:33 Data reviewed: vital signs, nurses notes. Data interpreted: Pulse oximetry: on room air kb is 100 %. Interpretation: normal. Counseling: I had a detailed discussion with the patient and/or guardian regarding: the historical points, exam findings, and any diagnostic results supporting the discharge/admit diagnosis, lab results, the need for further work-up and treatment in the hospital. ED course: Adequate reticulocyte index. 18:21 Physician consultation: Enoch OCONNELL was contacted at 18:21, regarding admission, patient's condition, in the emergency department to see patient at 18:21. 06/30 16:20 Order name: CBC with Diff; Complete Time: 17:05 kb 06/30 16:20 Order name: Basic Metabolic Panel; Complete Time: 17:25 kb 06/30 16:20 Order name: Retic Count; Complete Time: 17:05 kb 06/30 16:41 Order name: SARS-COV-2 RT PCR (Document "Date of Onset" if Symptomatic); Complete Time: eb 18:39 06/30 16:20 Order name: IV Start; Complete Time: 16:35 kb Administered Medications: 16:35 Drug: NS 0.9% 1000 ml Route: IV; Rate: 1000 ml; Site: Port-a-cath; ww 16:35 Drug: Dilaudid (HYDROmorphone) 2 mg Route: IVP; Site: Port-a-cath; ww 16:48 Drug: Phenergan (promethazine) 12.5 mg Route: IVP; Site: Port-a-cath; ww 17:56 Drug: Dilaudid (HYDROmorphone) 2 mg Route: IVP; Site: Port-a-cath; ww 19:51 Drug: Benadryl (diphenhydrAMINE) 50 mg Route: IVP; Site: left subclavian; sv1 19:51 Follow up: Response: No adverse reaction sv1 Disposition: 07/01 07:09 Co-signature as Attending Physician, Ariel Moreno MD I agree with the assessment and rn plan of care. Attestation: The patient's history, exam findings, diagnostics, and a summary of any interventions or procedures was reviewed in detail with Melissa OCONNELL. Disposition Summary: 06/30/21 18:22 Hospitalization Ordered Hospitalization Status: Observation kb Provider: Mary Velez Location: Telemetry/MedSurg (observation) kb Condition: Stable kb Problem: new kb Symptoms: are unchanged kb Bed/Room Type: Standard Room Assignment: 220(06/30/21 19:45) Diagnosis - Other sickle-cell disorders with crisis kb - Elevated white blood cell count kb Forms: - Medication Reconciliation Form kb - SBAR form kb Signatures: Dispatcher [employer] Melissa Pickard FNP-C FNP-Ckb Nieto, Roman, MD MD rn Attema, Lee, FNP-C FNP-Niecy Bassett RN RN Reyes Madrid RN RN sv1 Carisa Espinoza RN RN ww Corrections: (The following items were deleted from the chart) 06/30 19:45 18:22 kb
--- NOTE | 2021-06-30 18:22 | ER ---
Nurse's Notes [facility] Name: Gume Ortega Age: 30 yrs Sex: Female : 1990 Arrival Date: 06/30/2021 Time: 16:14 Bed 13 Private MD: Diagnosis: Other sickle-cell disorders with crisis;Elevated white blood cell count Presentation: 06/30 16:15 Chief complaint: Patient states: Pain all over her body. Has Sickle Cell. Was here ww yesterday but did not want to be admitted and now the pain is getting worse. Coronavirus screen: Vaccine status: Patient reports receiving the 1st dose of the Covid vaccine. Ebola Screen: Patient denies travel to an Ebola-affected area in the 21 days before illness onset. Initial Sepsis Screen: Does the patient meet any 2 criteria? No. Patient's initial sepsis screen is negative. Does the patient have a suspected source of infection? No. Patient's initial sepsis screen is negative. Risk Assessment: Do you want to hurt yourself or someone else? Patient reports no desire to harm self or others. Onset of symptoms is unknown. 16:15 Method Of Arrival: EMS 16:15 Acuity: MARILUZ 3 Triage Assessment: 16:16 General: Appears uncomfortable, Behavior is cooperative. Pain: Complains of pain in ww generalized body pain. EENT: No signs and/or symptoms were reported regarding the EENT system. Neuro: Level of Consciousness is awake, alert, obeys commands, Oriented to person, place, time, situation, Moves all extremities. Speech is normal. Cardiovascular: Capillary refill < 3 seconds Patient's skin is warm and dry. Respiratory: Airway is patent Respiratory effort is even, unlabored, Respiratory pattern is regular, symmetrical. GI: No signs and/or symptoms were reported involving the gastrointestinal system. : No signs and/or symptoms were reported regarding the genitourinary system. Derm: No signs and/or symptoms reported regarding the dermatologic system. Skin is intact. Historical: - Allergies: 16:16 Morphine; ww 16:16 Sulfa (Sulfonamide Antibiotics); ww 16:16 Zofran; ww 16:16 Fentanyl; ww - Home Meds: 16:16 alprazolam 1 mg Oral tab [Active]; dilaudid 8 mg every 6 hours [Active]; Eliquis 2.5 mg ww Oral tab 1 tab 2 times per day [Active]; Folic Acid Oral [Active]; Vitamin D Oral [Active]; - PMHx: 16:16 Anxiety; Sickle Cell; blood clot in lung; ww - PSHx: 16:16 Port placed to Left Chest; ww - Immunization history:: Client reports receiving the 1st dose of the Covid vaccine. - Social history:: Smoking status: Patient denies any tobacco usage or history of. Patient uses street drugs, marijuana. Screenin:18 Abuse screen: Denies threats or abuse. Denies injuries from another. Nutritional ww screening: No deficits noted. Tuberculosis screening: No symptoms or risk factors identified. Fall Risk None identified. Assessment: 17:04 Reassessment: Patient appears in no apparent distress at this time. No changes from ww previously documented assessment. Patient and/or family updated on plan of care and expected duration. Pain level reassessed. Patient is alert, oriented x 3, equal unlabored respirations, skin warm/dry/pink. 18:48 Reassessment: Patient appears in no apparent distress at this time. No changes from ww previously documented assessment. Patient and/or family updated on plan of care and expected duration. Pain level reassessed. Patient is alert, oriented x 3, equal unlabored respirations, skin warm/dry/pink. assisted to bathroom and placed back in bed. 19:56 Reassessment: C/O pain 10/10. The provider has been notified. Report was called to sv1 Fiona HOWE . Vital Signs: 16:15 BP 141 / 53; Pulse 73; Resp 16; Temp 98.3; Pulse Ox 100% ; Weight 70.76 kg; Height 5 ww ft. 2 in. (157.48 cm); Pain 10/10; 17:04 BP 110 / 64; Pulse 67; Resp 18; Pulse Ox 95% on R/A; ww 17:18 BP 95 / 84; Pulse 57; Resp 18; Pulse Ox 100% on R/A; ww 17:57 BP 101 / 73; Pulse 53; Resp 18; Pulse Ox 99% on R/A; ww 19:58 BP 116 / 52 LA Sitting (auto/reg); Pulse 76 MON; Resp 15 S; Temp 98.2; Pulse Ox 97% on sv1 R/A; Pain 10/10; 16:15 Body Mass Index 28.53 (70.76 kg, 157.48 cm) ED Course: 16:14 Patient arrived in ED. ap3 16:14 Carisa Espinoza, RN is Primary Nurse. ww 16:16 Triage completed. ww 16:16 Arm band placed on right wrist. ww 16:18 Patient has correct armband on for positive identification. Placed in gown. Bed in low ww position. Call light in reach. Side rails up X 1. monitoring manager on. Pulse ox on. NIBP on. 16:19 [facility] Vazquez [facility]C [facility]. kb 16:19 Ariel Moreno MD is Attending Physician. kb 16:36 Accessed Port-a-Cath. using accessed w/ #19 Peters needle, ,sterile technique, per [address] protocol. Clean \T\ dry. Dressing intact. Good blood return. Flushes easily. 16:36 Retic Count Sent. ld1 16:36 Basic Metabolic Panel Sent. ld1 16:37 CBC with Diff Sent. ld1 18:22 Mary Velez MD is Hospitalizing Provider. kb Administered Medications: 16:35 Drug: NS 0.9% 1000 ml Route: IV; Rate: 1000 ml; Site: Port-a-cath; ww 16:35 Drug: Dilaudid (HYDROmorphone) 2 mg Route: IVP; Site: Port-a-cath; ww 16:48 Drug: Phenergan (promethazine) 12.5 mg Route: IVP; Site: Port-a-cath; ww 17:56 Drug: Dilaudid (HYDROmorphone) 2 mg Route: IVP; Site: Port-a-cath; ww 19:51 Drug: Benadryl (diphenhydrAMINE) 50 mg Route: IVP; Site: left subclavian; sv1 19:51 Follow up: Response: No adverse reaction sv1 Outcome: 18:22 Decision to Hospitalize by Provider. kb 20:15 Patient left the ED. mw2 Signatures: Melissa Vazquez FNP-C FNP-Ching Parikh RN SHYAM ap3 Marisol Kendall mw2 Livia Worthy RN RN ld1 Reyes [place] RN RN sv1 Carisa Espinoza RN RN
[2021-06-30] MEDS ORDERED: DIPHENHYDRAMINE 50 MG/ML VIAL ONE (19:20)
--- NOTE | 2021-06-30 20:07 | P.HP ---
Certification for Inpatient Patient admitted to: Inpatient With expected LOS: >2 Midnights Patient will require the following post-hospital care: None Practitioner: I am a practitioner with admitting privileges, knowledge of patient current condition, hospital course, and medical plan of care. Services: Services provided to patient in accordance with Admission requirements found in Title 42 Section 412.3 of the Code of Federal Regulations Patient History Date of Service: 06/30/21 Reason for admission: Sickle cell crisis History of Present Illness: 30-year-old -[place] female with history of sickle cell anemia, pulmonary embolism presents the emergency department for generalized pain. Patient reports she is currently in a sickle cell crisis was seen in the emergency department yesterday and given pain medications but has gotten worse and her home medications not helping. Patient was evaluated in the emergency department her labs were significant for white blood cell count 18.3 hemoglobin 8.7 medical 25.7 absolute retake 0.45% reticulocyte 17.35 Covid negative. Patient with severe generalized pain requiring multiple doses of IV narcotic pain medication, ED provider wishes to admit for further evaluation and management of sickle cell crisis. Allergies ondansetron HCl [From Zofran] Allergy (Mild, Verified 08/02/12 16:51) Nausea/Vomiting morphine Allergy (Verified 12/21/20 21:22) Nausea/Vomiting Sulfa (Sulfonamide Antibiotics) Allergy (Verified 12/21/20 21:22) Nausea/Vomiting Home Medications: Folic Acid [Folic Acid*] 1 mg PO DAILY 08/01/12 Promethazine Tab [Phenergan*] 25 mg PO Q4H PRN #30 tab 11/15/19 ALPRAZolam [Xanax*] 1 mg PO BIDP PRN 09/30/20 Cholecalciferol (Vitamin D3) [Vitamin D 1000 Iu Tab*] 1,000 unit PO EVERY 7TH DAY 09/30/20 Apixaban [Eliquis *] 2.5 mg PO BID #60 tablet 12/21/20 Hydromorphone HCl [Dilaudid] 8 mg PO TID PRN 30 Days #60 tablet 12/21/20 Amoxicillin/Potassium Clav [Augmentin 875-125 Tablet] 1 each PO BID #10 tablet 02/17/21 - Past Medical/Surgical History Diabetic: No -: sickle cell -: pneumonia -: blod clot left lung -: port-a-cath placement Psychosocial/ Personal History: Patient lives at home with her girlfriend - Family History Mother -: Other (see notes) Notes: sickle cell trait Father -: Other (see notes) Notes: sickle cell trait - Social History Smoking Status: Never smoker Alcohol use: Yes CD- Drugs: No Caffeine use: Yes Place of Residence: Home Review of Systems 10-point ROS is otherwise unremarkable General: Other (Severe generalized pain), As per HPI Physical Examination - Physical Exam General: Alert, In no apparent distress, Oriented x3 HEENT: Atraumatic, PERRLA, Mucous membr. moist/pink, EOMI, Sclerae nonicteric Neck: Supple, 2+ carotid pulse no bruit, No LAD, Without JVD or thyroid abnormality Respiratory: Clear to auscultation bilaterally, Normal air movement Cardiovascular: Regular rate/rhythm, Normal S1 S2 Gastrointestinal: Normal bowel sounds, No tenderness Musculoskeletal: No tenderness Integumentary: No rashes Neurological: Normal gait, Normal speech, Normal strength at 5/5 x4 extr, Normal tone, Normal affect Lymphatics: No axilla or inguinal lymphadenopathy - Studies Laboratory Data (last 24 hrs) 06/30/21 16:35: Sodium 140, Potassium 3.7, BUN 3 L, Creatinine 0.42 L, Glucose 89 06/30/21 16:35: WBC 18.30 H, Hgb 8.7 L, Hct 25.7 L, Plt Count 536 H Assessment and Plan - Plan Assessment: Sickle cell anemia with crisis History of pulmonary embolism Plan: Sickle cell anemia with crisis: IV Dilaudid, as needed antiemetics and Benadryl. Daily CBC, reticulocyte counts. Patient reports her typical hospitalizations are 3 to 5 days sometimes longer depending. Patient without signs of systemic infection denies fever reports pain is similar to previous sickle crisis. Will obtain chest x-ray. History of pulmonary embolism: Continue Eliquis 2.5 p.o. twice daily. DVT PPX: Continue Eliquis Code status: Full Discharge Plan: Home Plan to discharge in: 72 Hours - Advance Directives Does patient have a Living Will: No Does patient have a Durable POA for Healthcare: No - Code Status/Comfort Care Code Status Assessed: Yes (Full) Critical Care: No Time Spent Managing Pts Care (In Minutes): 55
[2021-06-30] MEDS ORDERED: ONDANSETRON 4 MG/2 ML VIAL IV PRN (20:20)
[2021-06-30] MEDS: HYDROMORPHONE HCL 2 MG/ML inj IV PRN (20:34)
[2021-06-30] MEDS: NA CHLORIDE 0.9% 1,000 ML IV SCH (20:35)
[2021-06-30 20:57] VITALS: BMI 28.5
[2021-06-30] MEDS: APIXABAN 2.5 MG TABLET PO SCH (21:08)
[2021-06-30] MEDS: PROMETHAZINE INJ 25 MG/ML AMP IV PRN (21:08)
--- NOTE | 2021-06-30 21:26 | RAD REPORT ---
EXAM DESCRIPTION: Lucretia Single View06/30/2021 9:12 pm CLINICAL HISTORY: Chest pain COMPARISON: June 29, 2021 FINDINGS: The lungs appear clear of acute infiltrate. The heart is mildly enlarged. Central venous catheter in place IMPRESSION: No acute abnormalities displayed
[2021-07-01] MEDS: HYDROMORPHONE HCL 2 MG/ML inj IV PRN ×6 (00:16→20:22)
[2021-07-01 03:50] LABS: Hematocrit 22.6 % (36.0-45.0); Lymphocytes % 36.9 % (15.3-44.8); MPV 8.7 fL (7.6-11.3); RBC Red Blood Cell Count 2.28 M/uL (3.86-4.86)
[2021-07-01] MEDS: PROMETHAZINE INJ 25 MG/ML AMP IV PRN ×5 (04:11→20:22)
[2021-07-01 04:14] LABS: ALT/SGPT 27 U/L (12-78); AST/SGOT 18 U/L (15-37); Albumin 3.1 g/dL (3.4-5.0); Alkaline Phosphatase 77 U/L (45-117); BUN Blood Urea Nitrogen 3 mg/dL (7-18); Bicarbonate 29 mmol/L (21-32); Bilirubin Total 3.1 mg/dL (0.2-1.0); Glucose Level 104 mg/dL (74-106); Potassium 3.5 mmol/L (3.5-5.1); Protein, Total 6.2 g/dL (6.4-8.2); Sodium Level 140 mmol/L (136-145); Thyroid Stimulating Hormone 0.648 uIU/mL (0.360-3.740)
[2021-07-01 04:29] LABS: Anisocytosis 1+; Blood Morphology Comment NOTED (NOT SEEN); Elliptocytes 2+; Hypochromasia 2+; Platelet Estimate INCR; Platelets, Giant FEW; Poikilocytosis 2+; Polychromasia 1+; Target Cells 2+; Teardrop Cell 1+
[2021-07-01 04:30] LABS: Burr Cells 1+
[2021-07-01] MEDS: DIPHENHYDRAMINE 50 MG/ML VIAL IV PRN ×5 (04:49→22:04)
[2021-07-01] MEDS: NA CHLORIDE 0.9% 1,000 ML IV SCH ×2 (05:13→16:42)
[2021-07-01] MEDS: APIXABAN 2.5 MG TABLET PO SCH ×2 (08:21→20:21)
[2021-07-01] MEDS ORDERED: POTASSIUM CL SA 10 MEQ TAB PO ONE (09:00)
--- NOTE | 2021-07-01 12:46 | P.PN ---
Subjective Date of Service: 07/01/21 Chief Complaint: Sickle cell crisis Subjective: No new changes Physical Examination - Vital Signs Temperature: 97.3 F Blood Pressure: 119/62 Pulse: 70 Respirations: 18 Pulse Ox (%): 100 - Studies Laboratory Data (last 24 hrs) 06/30/21 16:35: Sodium 140, Potassium 3.7, BUN 3 L, Creatinine 0.42 L, Glucose 89 06/30/21 16:35: WBC 18.30 H, Hgb 8.7 L, Hct 25.7 L, Plt Count 536 H Assessment And Plan Physician Review: Patient Assessed, Agree with Above Assessment and Plan Physician Review Additional Text: 07/01/21 12:44 - Physical Exam General: Alert, In no apparent distress, Oriented x3 HEENT: Atraumatic, PERRLA, Mucous membr. moist/pink, EOMI, Sclerae nonicteric Neck: Supple, 2+ carotid pulse no bruit, No LAD, Without JVD or thyroid abnormality Respiratory: Clear to auscultation bilaterally, Normal air movement Cardiovascular: Regular rate/rhythm, Normal S1 S2 Gastrointestinal: Normal bowel sounds, No tenderness Musculoskeletal: No tenderness Integumentary: No rashes Neurological: Normal gait, Normal speech, Normal strength at 5/5 x4 extr, Normal tone, Normal affect Lymphatics: No axilla or inguinal lymphadenopathy Assessment and Plan Sickle cell anemia with Acute pain crisis History of pulmonary embolism Leukocytosis Plan: Sickle cell anemia with crisis: See persistent pain symptoms Continue IV every 4 Dilaudid, as needed antiemetics and Benadryl. We will add OxyContin twice daily for better control of pain Continue gentle IV fluid Leukocytosis still persistent as well as trending the hemoglobin, continue to monitor Follow-up pending urinalysis to rule out associated UTI chest x-ray reviewedno acute infiltrate noted daily History of pulmonary embolism: Continue Eliquis 2.5 p.o. twice daily. DVT PPX: Continue Eliquis Code status: Full Discharge Plan: Home Plan to discharge in: 72 Hours Critical Care: No Time Spent Managing PTS Care (In Minutes): 35
[2021-07-01] MEDS: OXYCODONE *CR* 10 MG TAB PO SCH ×2 (13:53→22:04)
[2021-07-02] MEDS: PROMETHAZINE INJ 25 MG/ML AMP IV PRN ×6 (00:18→21:03)
[2021-07-02] MEDS: HYDROMORPHONE HCL 2 MG/ML inj IV PRN ×6 (00:19→21:04)
[2021-07-02 00:48] LABS: Urine Appearance CLEAR (Clear); Urine Bilirubin NEGATIVE (Negative); Urine Blood NEGATIVE (Negative); Urine Color YELLOW (Yellow); Urine Glucose NEGATIVE (Negative); Urine Protein NEGATIVE (Negative); Urine Urobilinogen 0.2 mg/dL (0.2-1.0); Urine pH 6.5 (5.0-7.0)
[2021-07-02 00:50] LABS: Urine Microscopic Reflex NO UMIC
[2021-07-02] MEDS: NA CHLORIDE 0.9% 1,000 ML IV SCH ×2 (02:00→08:37)
[2021-07-02] MEDS: DIPHENHYDRAMINE 50 MG/ML VIAL IV PRN ×4 (02:00→23:10)
[2021-07-02 04:45] LABS: Hematocrit 22.1 % (36.0-45.0); Lymphocytes % 38.7 % (15.3-44.8); MPV 8.4 fL (7.6-11.3); RBC Red Blood Cell Count 2.25 M/uL (3.86-4.86)
[2021-07-02 04:52] LABS: ALT/SGPT 23 U/L (12-78); AST/SGOT 17 U/L (15-37); Albumin 3.1 g/dL (3.4-5.0); Alkaline Phosphatase 74 U/L (45-117); BUN Blood Urea Nitrogen 8 mg/dL (7-18); Bicarbonate 30 mmol/L (21-32); Bilirubin Total 2.5 mg/dL (0.2-1.0); Glucose Level 98 mg/dL (74-106); Protein, Total 5.9 g/dL (6.4-8.2); Sodium Level 142 mmol/L (136-145)
[2021-07-02] MEDS: APIXABAN 2.5 MG TABLET PO SCH ×2 (08:36→21:06)
[2021-07-02] MEDS: OXYCODONE *CR* 10 MG TAB PO SCH ×2 (09:49→23:12)
--- NOTE | 2021-07-02 12:16 | P.PN ---
Subjective Date of Service: 07/02/21 Chief Complaint: Sickle cell crisis Subjective: No new changes (- c/o still pain but better with added oxycontin) Physical Examination - Vital Signs Temperature: 98.4 F Blood Pressure: 108/56 Pulse: 71 Respirations: 18 Pulse Ox (%): 93 - Physical Exam General: Alert, In no apparent distress, Oriented x3 HEENT: Atraumatic, Normocephalic Neck: Supple, 2+ carotid pulse no bruit Respiratory: Clear to auscultation bilaterally, Normal air movement Cardiovascular: No edema, Normal pulses, Regular rate/rhythm Gastrointestinal: Normal bowel sounds, Soft and benign Musculoskeletal: No clubbing, No swelling Assessment And Plan Physician Review: Patient Assessed, Agree with Above Assessment and Plan Physician Review Additional Text: 07/01/21 12:44 - Physical Exam General: Alert, In no apparent distress, Oriented x3 HEENT: Atraumatic, PERRLA, Mucous membr. moist/pink, EOMI, Sclerae nonicteric Neck: Supple, 2+ carotid pulse no bruit, No LAD, Without JVD or thyroid abnormality Respiratory: Clear to auscultation bilaterally, Normal air movement Cardiovascular: Regular rate/rhythm, Normal S1 S2 Gastrointestinal: Normal bowel sounds, No tenderness Musculoskeletal: No tenderness Integumentary: No rashes Neurological: Normal gait, Normal speech, Normal strength at 5/5 x4 extr, Normal tone, Normal affect Lymphatics: No axilla or inguinal lymphadenopathy Assessment and Plan Sickle cell anemia with Acute pain crisis History of pulmonary embolism Leukocytosis Plan: Sickle cell anemia with crisis: still persistent pain symptoms Continue IV every 4 Dilaudid, as needed antiemetics and Benadryl. increase OxyContin twice daily for better control of pain still persistent elevated WBC, but appears chronic , may be from reticulocytemia Continue gentle IV fluid UA negative for infection chest x-ray reviewedno acute infiltrate noted daily Will need pain clinic as outpt History of pulmonary embolism: Continue Eliquis 2.5 p.o. twice daily. DVT PPX: Continue Eliquis Code status: Full Discharge Plan: Home Plan to discharge in: 24-48 Hours
[2021-07-03] MEDS: PROMETHAZINE INJ 25 MG/ML AMP IV PRN ×6 (01:14→20:46)
[2021-07-03] MEDS: HYDROMORPHONE HCL 2 MG/ML inj IV PRN ×6 (01:16→20:44)
[2021-07-03 06:52] LABS: MPV 8.3 fL (7.6-11.3); RBC Red Blood Cell Count 2.11 M/uL (3.86-4.86)
[2021-07-03 06:58] LABS: Hematocrit 20.7 % (36.0-45.0)
[2021-07-03 07:06] LABS: ALT/SGPT 22 U/L (12-78); AST/SGOT 17 U/L (15-37); Albumin 3.2 g/dL (3.4-5.0); Alkaline Phosphatase 80 U/L (45-117); BUN Blood Urea Nitrogen 8 mg/dL (7-18); Bicarbonate 30 mmol/L (21-32); Bilirubin Total 3.2 mg/dL (0.2-1.0); Glucose Level 95 mg/dL (74-106); Sodium Level 140 mmol/L (136-145)
[2021-07-03] MEDS: APIXABAN 2.5 MG TABLET PO SCH ×2 (09:00→20:24)
[2021-07-03] MEDS: DIPHENHYDRAMINE 50 MG/ML VIAL IV PRN ×4 (09:32→20:47)
[2021-07-03] MEDS: OXYCODONE *CR* 10 MG TAB PO SCH ×2 (10:44→22:03)
[2021-07-03 12:27] LABS: Anisocytosis 2+; Blood Morphology Comment NOTED (NOT SEEN); Hypochromasia 1+; Platelet Estimate ADEQ; Poikilocytosis 2+; Polychromasia 1+; Target Cells FEW
[2021-07-03] MEDS: ALPRAZOLAM 1 MG TABLET PO PRN (12:45)
--- NOTE | 2021-07-03 17:06 | P.PN ---
Subjective Date of Service: 07/03/21 Subjective: No new changes, No C/O voiced, Improving Review of Systems 10-point ROS is otherwise unremarkable Physical Examination - Vital Signs Temperature: 98.2 F Blood Pressure: 107/58 Pulse: 80 Respirations: 20 Pulse Ox (%): 99 - Physical Exam General: Alert, In no apparent distress, Oriented x3 Respiratory: Clear to auscultation bilaterally, Normal air movement Cardiovascular: Regular rate/rhythm, Normal S1 S2 Gastrointestinal: Normal bowel sounds, Soft and benign, Non-distended, No tenderness Musculoskeletal: No clubbing, No swelling, No tenderness Integumentary: No rashes Neurological: Normal speech, Normal tone, Normal affect Lymphatics: No axilla or inguinal lymphadenopathy - Studies Medications List Reviewed: Yes Assessment & Plan - Problems (Diagnosis) (1) Sickle cell pain crisis Current Visit: No Status: Acute - Plan Plan: 1. Monitor H&H 2. Pain control 3. Gentle hydration 4. Monitor iron studies 5. GI DVT prophylaxis - Advance Directives Does patient have a Living Will: No Does patient have a Durable POA for Healthcare: No Physician Review: Patient Assessed, Agree with Above Assessment and Plan
[2021-07-03] MEDS: NA CHLORIDE 0.9% 1,000 ML IV SCH (17:22)
[2021-07-03] MEDS: clonazePAM 0.5 MG TAB PO SCH (20:45)
[2021-07-04] MEDS: NA CHLORIDE 0.9% 1,000 ML IV SCH ×4 (00:17→20:53)
[2021-07-04] MEDS: HYDROMORPHONE HCL 2 MG/ML inj IV PRN ×6 (00:34→20:48)
[2021-07-04] MEDS: PROMETHAZINE INJ 25 MG/ML AMP IV PRN ×6 (00:35→20:51)
[2021-07-04] MEDS: DIPHENHYDRAMINE 50 MG/ML VIAL IV PRN ×6 (00:35→20:51)
[2021-07-04 04:40] LABS: Absolute Lymphocytes (CBC) 6.1 K/uL (0.7-4.9); Lymphocytes % 31.4 % (15.3-44.8); MPV 8.8 fL (7.6-11.3); RBC Red Blood Cell Count 2.09 M/uL (3.86-4.86)
[2021-07-04 04:58] LABS: Hematocrit 20.5 % (36.0-45.0)
[2021-07-04 05:22] LABS: ALT/SGPT 18 U/L (12-78); AST/SGOT 20 U/L (15-37); Albumin 3.1 g/dL (3.4-5.0); Alkaline Phosphatase 81 U/L (45-117); BUN Blood Urea Nitrogen 10 mg/dL (7-18); Bicarbonate 28 mmol/L (21-32); Bilirubin Total 3.3 mg/dL (0.2-1.0); Folic Acid, (Folate) 7.9 ng/mL (3.1-17.5); Glucose Level 98 mg/dL (74-106); Magnesium 1.8 mg/dL (1.8-2.4); Protein, Total 6.1 g/dL (6.4-8.2); Sodium Level 140 mmol/L (136-145)
[2021-07-04] MEDS ORDERED: MAGNESIUM SULFATE 1 gm IVPB 1 GM/100 ML BAG IV ONE (07:00)
[2021-07-04] MEDS: clonazePAM 0.5 MG TAB PO SCH ×3 (08:43→20:04)
[2021-07-04] MEDS: APIXABAN 2.5 MG TABLET PO SCH ×2 (08:43→19:57)
[2021-07-04] MEDS: OXYCODONE *CR* 10 MG TAB PO SCH ×2 (09:48→20:03)
[2021-07-04] MEDS ORDERED: NA CHLORIDE 0.9% 250 ML ONE (12:36)
[2021-07-04 15:54] VITALS: O2SAT 96
[2021-07-05] MEDS: DIPHENHYDRAMINE 50 MG/ML VIAL IV PRN ×6 (00:48→21:11)
[2021-07-05] MEDS: HYDROMORPHONE HCL 2 MG/ML inj IV PRN ×6 (00:49→21:14)
[2021-07-05] MEDS: PROMETHAZINE INJ 25 MG/ML AMP IV PRN ×6 (00:51→21:12)
[2021-07-05] MEDS: NA CHLORIDE 0.9% 1,000 ML IV SCH ×3 (03:20→15:38)
[2021-07-05] MEDS ORDERED: NA CHLORIDE 0.9% 250 ML ONE (04:15)
[2021-07-05] MEDS: clonazePAM 0.5 MG TAB PO SCH ×3 (08:27→22:47)
[2021-07-05] MEDS: APIXABAN 2.5 MG TABLET PO SCH ×2 (08:30→21:00)
[2021-07-05] MEDS: OXYCODONE *CR* 10 MG TAB PO SCH (10:06)
[2021-07-05 10:41] LABS: Absolute Lymphocytes (CBC) 4.3 K/uL (0.7-4.9); Hematocrit 29.3 % (36.0-45.0); Lymphocytes % 24.8 % (15.3-44.8); MPV 8.1 fL (7.6-11.3); RBC Red Blood Cell Count 3.09 M/uL (3.86-4.86)
[2021-07-05 11:51] LABS: Anisocytosis 1+; Blood Morphology Comment NOTED (NOT SEEN); Platelet Estimate ADEQ; White Blood Cell Scan OK (OK)
--- NOTE | 2021-07-05 12:56 | P.PN ---
Date of Service: 07/04/21 Subjective Subjective: Pain better controlled. Anxiolytics have helped. Review of Systems 10-point ROS is otherwise unremarkable Physical Examination - Vital Signs Reviewed - Physical Exam General: Alert, In no apparent distress, Oriented x3 Respiratory: Clear to auscultation bilaterally, Normal air movement Cardiovascular: Regular rate/rhythm, Normal S1 S2 Gastrointestinal: Normal bowel sounds, Soft and benign, Non-distended, No tenderness Musculoskeletal: No clubbing, No swelling, No tenderness Integumentary: No rashes Neurological: Normal speech, Normal tone, Normal affect Lymphatics: No axilla or inguinal lymphadenopathy - Studies Medications List Reviewed: Yes Assessment & Plan - Problems (Diagnosis) (1) Sickle cell pain crisis Current Visit: No Status: Acute - Plan Plan to transfuse 2 units of packed red blood cells 1. Monitor H&H 2. Pain control 3. Gentle hydration 4. Monitor iron studies 5. GI DVT prophylaxis - Advance Directives Does patient have a Living Will: No Does patient have a Durable POA for Healthcare: No Physician Review: Patient Assessed, Agree with Above Assessment and Plan
--- NOTE | 2021-07-05 12:56 | P.DS ---
Discharge Date: 07/05/21 Disposition: ROUTINE DISCHARGE Discharge Condition: GOOD Reason for Admission: Sickle cell crisis - Problems (1) Sickle cell pain crisis Current Visit: No Status: Acute Brief History of Present Illness: 30-year-old -Luxembourger female with history of sickle cell anemia, pulmonary embolism presents the emergency department for generalized pain. Magno burk reports she is currently in a sickle cell crisis was seen in the emergency department yesterday and given pain medications but has gotten worse and her home medications not helping. Patient was evaluated in the emergency department her labs were significant for white blood cell count 18.3 hemoglobin 8.7 medical 25.7 absolute retake 0.45% reticulocyte 17.35 Covid negative. Patient with semaj re generalized pain requiring multiple doses of IV narcotic pain medication, ED provider wishes to admit for further evaluation and management of sickle cell crisis. Hospital Course: Patient is done well during hospital stay. Her pain is better controlled. She got 2 units of packed red blood cells. H&H is stable. Patient will be discharged on anxiolytics as well as pain medication. Outpatient follow-up with hematology. Vital Signs/Physical Exam: Temp Pulse Resp BP Pulse Ox 98.2 F 80 20 107/58 L 99 07/05/21 12:55 07/05/21 12:55 07/05/21 12:55 07/05/21 12:55 07/05/21 12:55 General: Alert, In no apparent distress, Oriented x3 Laboratory Data at Discharge: WBC 17.40 K/uL (4.3-10.9) H 07/05/21 10:31 Hgb 10.0 g/dL (12.0-15.0) L D 07/05/21 10:31 Hct 29.3 % (36.0-45.0) L D 07/05/21 10:31 Plt Count 435 K/uL (152-406) H 07/05/21 10:31 Sodium 140 mmol/L (136-145) 07/04/21 04:10 Potassium 4.0 mmol/L (3.5-5.1) 07/04/21 04:10 BUN 10 mg/dL (7-18) 07/04/21 04:10 Creatinine 0.56 mg/dL (0.55-1.3) 07/04/21 04:10 Glucose 98 mg/dL (74-106) 07/04/21 04:10 Magnesium Cancelled 07/04/21 05:00 Total Bilirubin 3.3 mg/dL (0.2-1.0) H 07/04/21 04:10 AST 20 U/L (15-37) 07/04/21 04:10 ALT 18 U/L (12-78) 07/04/21 04:10 Alkaline Phosphatase 81 U/L (45-117) 07/04/21 04:10 Home Medications: Folic Acid [Folic Acid*] 1 mg PO DAILY 08/01/12 Promethazine Tab [Phenergan*] 25 mg PO Q4H PRN #30 tab 11/15/19 ALPRAZolam [Xanax*] 1 mg PO BIDP PRN 09/30/20 Cholecalciferol (Vitamin D3) [Vitamin D 1000 Iu Tab*] 1,000 unit PO EVERY 7TH DAY 09/30/20 Apixaban [Eliquis *] 2.5 mg PO BID #60 tablet 12/21/20 Hydromorphone HCl [Dilaudid] 8 mg PO TID PRN 30 Days #60 tablet 12/21/20 Physician Discharge Instructions: -DC IV and DC home -Follow-up with PCP in 1 to 2 weeks -Please call Dr. Castrejon at [phone] if any questions regarding hospital stay -Please call nursing station at [phone] if any nursing or medication questions -Return to the emergency room if symptoms worsen Diet: AHA Activity: Fall precautions Followup: NONE,NONE [Primary Care Provider] - 1-2 Weeks (Follow up with your PCP, Dr. Inman - call to schedule an appointment ) Time spent managing pt's care (in minutes): 35
[2021-07-05] MEDS ORDERED: CYANOCOBALAMIN 1000MCG/ML INJ IM ONE (13:47)
--- NOTE | 2021-07-05 14:36 | RAD REPORT ---
EXAM DESCRIPTION: RAD - Chest Single View - 07/05/2021 2:24 pm CLINICAL HISTORY: pneumonia Chest pain. COMPARISON: Chest Single View dated 06/30/2021; Chest Single View dated 06/29/2021; Chest Single View dated 02/17/2021; Chest Single View dated 01/22/2021 FINDINGS: Portable technique limits examination quality. The lungs are grossly clear. The heart is normal in size. No displaced fractures.Left port catheter i ts tip in the SVC. IMPRESSION: No acute intrathoracic process suspected.
[2021-07-05] MEDS: OXYCODONE *CR* 20 MG TAB PO SCH (20:28)
[2021-07-06] MEDS: DIPHENHYDRAMINE 50 MG/ML VIAL IV PRN ×3 (01:27→09:21)
[2021-07-06] MEDS: HYDROMORPHONE HCL 2 MG/ML inj IV PRN ×3 (01:28→09:03)
[2021-07-06] MEDS: PROMETHAZINE INJ 25 MG/ML AMP IV PRN ×3 (01:30→09:17)
[2021-07-06] MEDS: ALPRAZOLAM 1 MG TABLET PO PRN (03:50)
[2021-07-06] MEDS: NA CHLORIDE 0.9% 1,000 ML IV SCH (03:50)
[2021-07-06 03:54] VITALS: TEMP 97.8
[2021-07-06 06:49] LABS: Absolute Lymphocytes (CBC) 4.6 K/uL (0.7-4.9); Hematocrit 28.6 % (36.0-45.0); MPV 8.2 fL (7.6-11.3); RBC Red Blood Cell Count 2.99 M/uL (3.86-4.86)
[2021-07-06 07:04] LABS: ALT/SGPT 18 U/L (12-78); AST/SGOT 20 U/L (15-37); Albumin 3.4 g/dL (3.4-5.0); Alkaline Phosphatase 79 U/L (45-117); BUN Blood Urea Nitrogen 10 mg/dL (7-18); Bicarbonate 28 mmol/L (21-32); Bilirubin Total 2.5 mg/dL (0.2-1.0); Glucose Level 96 mg/dL (74-106); Potassium 4.1 mmol/L (3.5-5.1); Protein, Total 6.4 g/dL (6.4-8.2); Sodium Level 139 mmol/L (136-145)
[2021-07-06] MEDS: OXYCODONE *CR* 20 MG TAB PO SCH (09:00)
[2021-07-06] MEDS: clonazePAM 0.5 MG TAB PO SCH (09:03)
[2021-07-06] MEDS: APIXABAN 2.5 MG TABLET PO SCH (09:04)
[2021-07-06] MEDS ORDERED: HEPARIN 500 UNIT/5 ML SYR IV PRN (11:23)
[2021-07-06 13:14] VITALS: BP 116/65
== END 2021-07-06 01:00 | disposition home or self-care (01) | DRG 812 ==
LOC: ER 16:10 → 2ND 20:05 → UNDODISIN 07-04 17:05
PROVIDERS: ADMIT Internal Medicine; ATTEND Hospitalist
DX: D57.00 Hb-SS disease with crisis, unspecified (principal); D72.829 Elevated white blood cell count, unspecified; Z88.5 Allergy status to narcotic agent; Z88.1 Allergy status to other antibiotic agents; Z88.8 Allergy status to other drugs, medicaments and biological substances; Z79.01 Long term (current) use of anticoagulants; Z79.899 Other long term (current) drug therapy; Z86.711 Personal history of pulmonary embolism; Z20.822 Contact with and (suspected) exposure to COVID-19
CPT/HCPCS: 36415; 36430; 71045; 80048; 80053; 80076; 81003; 82607; 82746; 83540; 83735; 83880; 84145; 84439; 84443; 84484; 85025; 85044; 85610; 85660; 86850; 86900; 86901; 86902; 93005; 96361; 96365; 96375; 99284; 99285; J1170; J1200; J1642; J2550; J3420; J3475; J3480; J7030; J7050; P9016; U0003

== ENCOUNTER 2021-07-09 00:50 | Inpatient (IN) | payer OTHER ==
--- OUTSIDE RECORDS SUMMARY | 2021-07-09 00:55 | XMS REPORT | Continuity of Care Document ---
:1990 Author Organization [facility] t Address [address] [place] [place] [address] Support Name Relationship Address Phone [address] [place] [address] [address] [place] [address] DENI Unavailable [address] [facility] [phone] [place] [address] RAE OT N [facility] [address] [phone] [place] [address] [place] [address] [address] [facility] [address] [place] [address] JORDAN Unavailable [address] [facility] [phone] [place] [address] JORDAN Unavailable [address] [facility] [phone] [place] [address] [address] [place] [address] CLINTON DELEON MD E Admitting Provider [address] [facility] [address] [place] [address] JESSICA SIDDIQUI Primary Care Physician [address] [facility] [address] [phone] [place] [address] VIJAYA MULLEN MD A Emergency Provider [address] [place] [address] NAIMA MULLEN Attending Provider [address] [place] [address] IZZY MULLEN, E Emergency Provider [address] [facility] [address] [place] [address] PHYSICIAN Primary Care Physician Unavailable Unavailab chrissy GRISSOM MD, MD Emergency Provider [address] [place] [address] OTHER, NAME IN NOTES Primary Care Physician Unavailable Sylvie vailable KIP MULLEN MD Emergency Provider [address] [place] [address] ISABELLA MULLEN MD MORE Admitting Provider [address] [place] [address] FRANCIS Primary Care Physician [address] [facility] [address] MD AMRITA A Emergency Provider [facility] [address] MD ADRIANA Emergency Provider Unavailable Unavailable MD STACY S Emergency Provider [address] [place] [address] MD AMAN Emergency Provider [address] [place] [address] Care Team Providers Name Role Phone Shaikh APZ, [facility] Primary Care Physician BRENDA Attending Clinician [...] is 6[facility] 00 [place] Pneumonia Pneumonia Disease Active [facility] 00 [place] 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[facility] - anemia anemia 00:00: Medical 00 [place] 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[facility] - crisis crisis 00:00: Medical 00 [place] Allergies, Adverse Reactions, Alerts Allergy Allergy Status Severity Reaction(s) Onset Inactive Treating Comm ents Source Name Type Date Date Clinician Ondanset Drug Active Nausea And [facility] Hcl Intolera Vomiting - [facility] - (Pf[facility] Medical 00 Center morphine DA Active SV 2010-0 [facility] 3[facility]11 [place] 00:00: d 00 Medical [place] TEGEDERM DA Active PA 2008-0 [facility] DRESSING 8[facility]23 [place] 00:[facility]: d 00 [facility] Family History Family Member Diagnosis Comments Start Date Stop Date Source Natural mother Sickle cell trait [facility] Natural sister Unremarkable [facility] Natural brother Unremarkable [facility] Natural father Seizures [facility] Natural father Sickle cell trait [facility] Social History Social Habit Start Date Stop Date Quantity Comments Source Alcohol intake 2018-08-02 2018-08-[address] [facility] es - 00:00:00 00:00:00 non-drinker of Medical nter alcohol (finding) Tobacco use and 2015-07-10 2015-07-[address] [facility] St Ariana kes - exposure 00:00:00 00:00:00 [facility] Sex Assigned At [address] [facility] [address] [facility] - 00:00:00 00:00:00 [facility] Smoking Status Start Date Stop Date Source Never smoker [facility] Medications Ordered Filled Start Stop [...] mouth once Medi rita 00 a week. [place] VITAMIN D2 Yes 1{capsu Q7D Take [address] 50,000 unit 2-25 le} capsule by Ariana kes - capsule 00:00: mouth once Medi rita 00 a week. [place] VITAMIN D2 Yes 1{capsu Q7D Take [address] 50,000 unit 2-25 le} capsule by Ariana kes - capsule 00:00: mouth once Medi rita 00 a week. [place] VITAMIN D2 Yes 1{capsu Q7D Take [address] 50,000 unit 2-25 le} capsule by Ariana kes - capsule 00:00: mouth once Medi rita 00 a week. [place] VITAMIN D2 Yes 1{capsu Q7D Take [address] 50,000 unit 2-25 le} capsule by Ariana kes - capsule 00:00: mouth once Medi rita 00 a week. [place] PROAIR HFA Yes 1{puff} Inhale 1 [facility] [...] [facility] cervix (procedure) [code = 590892158] Future Scheduled 2012-09-[address] [facility] - Test 00:00:00 malignant neoplasm of [facility]ica [facility] Center cervix (procedure) [code = 550380125] Future Scheduled 2012-09-[address] [facility] - Test 00:00:00 malignant neoplasm [facility] cervix (procedure) [code = 530334021] Future Scheduled 2012-09-[address] [facility] - Test 00:00:00 malignant neoplasm of [facility]ica [facility] Center cervix (procedure) [code = 428842053] Future Scheduled 2012-09-[address] [facility] - Test 00:00:00 malignant neoplasm of Medica [facility] Center cervix (procedure) [code = 780758010] Future Scheduled [address] [facility] - Test 00:00:00 (procedure) [code = [facility] 40819387] Future Scheduled [address] [facility] - Test 00:00:00 (procedure) [code = [facility] 55771456] Future Scheduled [address] [facility] - Test 00:00:00 (procedure) [code = [facility] 81255761] Future Scheduled [address] [facility] - Test 00:00:00 (procedure) [code = [facility] 88918010] Future Scheduled [address] [facility] - Test 00:00:00 (procedure) [code = [facility] 87395012] Future Scheduled 2010-09-05 DTAP/TDAP/TD VACCINES CH I [...] 2021-06-08 Inpatient E PERLITA GUTIERREZ MED [address] [facility] 04:10:00 13:24:00 [facility] 2021-06-03 2021-06-03 Emergency E SUNNY GABRIELE [facility] [address] [facility] 02:02:00 14:43:00 RAHEL 2021-04-04 2021-04-04 Emergency [...] Comments Results Result Comments Source SARS-COV2/RT-PCR ([facility]) 2019-11-14 17:47:00 Test Item Value Reference Range Interpretation Comme nts SARS-COV2/RT-PCR (test code = 0982468) Negative Not Detected, N egative SARS-COV-2 PERFORMING LAB (test code = 6242857) [facility] Negative results do not preclude [...] of the Act.Fact Sheet for Healthcare Pro viders:https://www.Realie.[employer]/Documents/Xpert%20Xpress%20SARS%20CoV-2/Fact%20Sh eets/302-3802%99EETO-QNF-5%20HEALTHCARE%20PROVIDERS%20FACT%20SHEET.pdfFact Sheet for Healthcare Patients:https://www.C-Note id.[employer]/Documents/Xpert%20Xpress%20SARS%20CoV-2/Fact%20Sheets/302-3801%20SARS-COV -2%20PATIENT%20FACT%20SHEET.pdfPerforming Laboratory:[facility] [place] [address], [place] [address] W/PLT COUNT & AUTO DIFFERENTIAL 2018-08-10 08:25:00 [...] 3438) Received comment: User comments: Slide comments:RETICULOCYTE [id number] 08:06:00 Test Item Value Reference Range Interpretation Comments RETICULOCYTE COUNT PCT (BEAKER) (test 25.0 % 0.5-1.7 H code = 575) CBC W/PLT COUNT & AUTO [id number] 09:27:00 Test Item Value Reference Range Interpretation [...] 3438) Received comment: User comments: Slide comments:RETICULOCYTE [id number] 05:01:00 Test Item Value Reference Range Interpretation Comments RETICULOCYTE COUNT PCT (BEAKER) (test 21.6 % 0.5-1.7 H code = 575) CBC W/PLT COUNT & AUTO [id number] 15:17:00 Test Item Value Reference Range Interpretation [...] H (BEAKER) (test code = 413) RETICULOCYTE [id number] 08:44:00 Test Item Value Reference Range Interpretation Comments RETICULOCYTE COUNT PCT (BEAKER) (test 23.8 % 0.5-1.7 H code = 575) BLOOD [id number] 14:01:00 Test Item Value Reference Range Interpretation Comments CULTURE (BEAKER) (test No growth in 5 days code = 1095) BLOOD [id number] 12:01:00 Test Item Value Reference Range Interpretation Comments CULTURE (BEAKER) (test No growth in 5 days code = 1095) CBC W/PLT COUNT & AUTO [id number] 11:38:00 Test Item Value Reference Range Interpretation [...] 3438) Received comment: User comments: Slide comments:RETICULOCYTE [id number] 07:44:00 Test Item Value Reference Range Interpretation Comments RETICULOCYTE COUNT PCT (BEAKER) (test 27.0 % 0.5-1.7 H code = 575) RETICULOCYTE [id number] 07:19:00 Test Item Value Reference Range Interpretation Comments RETICULOCYTE COUNT PCT (BEAKER) (test 22.7 % 0.5-1.7 H code = 575) CBC W/PLT COUNT & AUTO [id number] 12:07:00 Test Item Value Reference Range Interpretation [...] 3438) Received comment: User comments: Slide comments:RETICULOCYTE [id number] 06:14:00 Test Item Value Reference Range Interpretation Comments RETICULOCYTE COUNT PCT (BEAKER) (test 21.9 % 0.5-1.7 H code = 575) [id number] 06:02:00 Test Item Value Reference Range Interpretation Comments PHOSPHORUS (BEAKER) (test code = 3.8 mg/dL 2.3-4.7 604) [id number] 06:02:00 Test Item Value Reference Range Interpretation Comments MAGNESIUM (BEAKER) (test code = 1.8 mg/dL 1.6-2.6 627) BASIC METABOLIC [id number] 06:02:00 Test Item Value Reference Range Interpretation [...] Specimen moderately ictericCBC W/PLT COUNT & AUTO [id number] 09:09:00 Test Item Value Reference Range Interpretation [...] = 3438) Received comment: User comments: Slide comments:[id number] 04:11:00 Test Item Value Reference Range Interpretation Comments PHOSPHORUS (BEAKER) (test code = 3.3 mg/dL 2.3-4.7 604) [id number] 04:11:00 Test Item Value Reference Range Interpretation Comments MAGNESIUM (BEAKER) (test code = 1.6 mg/dL 1.6-2.6 627) BASIC METABOLIC [id number] 04:11:00 Test Item Value Reference Range Interpretation [...] FOR DIALYSIS PATIEN TS. Specimen slightly ictericRETICULOCYTE [id number] 03:54:00 Test Item Value Reference Range Interpretation Comments RETICULOCYTE COUNT PCT (BEAKER) (test 20.4 % 0.5-1.7 H code = 575) CBC W/PLT COUNT & AUTO [id number] 18:30:00 Test Item Value Reference Range Interpretation [...] = 413) CBC W/PLT COUNT & AUTO [id number] 10:51:00 Test Item Value Reference Range Interpretation [...] K/uL 0.00-0.00 H (CELLAVISION)(BEAKER) (test code = 3308) TOTAL COUNTED (BEAKER) (test code 100 = [...] 3438) Received comment: User comments: Slide comments:RETICULOCYTE [id number] 10:08:00 Test Item Value Reference Range Interpretation Comments RETICULOCYTE COUNT PCT (BEAKER) (test 14.4 % 0.5-1.7 H code = 575) CBC W/PLT COUNT & AUTO [id number] 09:30:00 Test Item Value Reference Range Interpretation [...] = 3438) Received comment: User comments: Slide comments:[id number] 03:32:00 Test Item Value Reference Range Interpretation Comments PHOSPHORUS (BEAKER) (test code = 3.5 mg/dL 2.3-4.7 604) [id number] 03:32:00 Test Item Value Reference Range Interpretation Comments MAGNESIUM (BEAKER) (test code = 1.8 mg/dL 1.6-2.6 627) BASIC METABOLIC [id number] 03:32:00 Test Item Value Reference Range Interpretation [...] ictericCT, CHEST WITH IV CONTRAST- PE TEST [id number] 14:01:00FINAL REPORT CT scan of the chest. [...] MDReport Verified Date/Time: 08/02/2018 14:01:29 Reading Location: [facility] C013X [facility] Consult Reading Room URINALYSIS W/ REFLEX URINE [id number] 11:27:00 Test Item Value Reference Range Interpretation [...] 516) SOURCE(BEAKER) (test code = 2795) SCREEN, [id number] 11:15:00 Test Item Value Reference Range Interpretation Comments TEST URINE (BEAKER) (test Negative code = 583) RETICULOCYTE [id number] 04:43:00 Test Item Value Reference Range Interpretation Comments RETICULOCYTE COUNT PCT (BEAKER) (test 13.2 % 0.5-1.7 H code = 575) RAD, CHEST, 2 [id number] 03:54:00Reason for exam:->SICKLE CELL PAIN CRISISIs the [...] [place] MDReport Verified Date/Time: 08/02/2018 03:54:52Reading Location: [address] Reading Room CBC W/PLT COUNT [...] (BEAKER) (test code = 417) COMPREHENSIVE METABOLIC [id number] 02:42:00 Test Item Value Reference Range Interpretation [...]
[2021-07-09] MEDS ORDERED: PROMETHAZINE INJ 25 MG/ML AMP ONE ×2 (01:10→03:07)
[2021-07-09] MEDS ORDERED: HYDROMORPHONE HCL 2 MG/ML inj ONE ×2 (01:10→02:12)
[2021-07-09] MEDS ORDERED: NA CHLORIDE 0.9% 1,000 ML ONE ×2 (01:10→03:07)
[2021-07-09 01:28] LABS: Absolute Lymphocytes (CBC) 3.3 K/uL (0.7-4.9); Hematocrit 24.8 % (36.0-45.0); Lymphocytes % 22.5 % (15.3-44.8); RBC Red Blood Cell Count 2.68 M/uL (3.86-4.86)
[2021-07-09 01:29] LABS: Protime INR 2.25
[2021-07-09] MEDS ORDERED: DIPHENHYDRAMINE 50 MG/ML VIAL ONE (01:35)
[2021-07-09 01:52] LABS: ALT/SGPT 19 U/L (12-78); AST/SGOT 27 U/L (15-37); Albumin 3.9 g/dL (3.4-5.0); Alkaline Phosphatase 81 U/L (45-117); BUN Blood Urea Nitrogen 7 mg/dL (7-18); Bicarbonate 22 mmol/L (21-32); Bilirubin Direct 0.5 mg/dL (0-0.2); Bilirubin Total 2.1 mg/dL (0.2-1.0); Glucose Level 90 mg/dL (74-106); Magnesium 1.7 mg/dL (1.8-2.4); NT PRO-BNP 17 pg/mL (<125); Potassium 3.5 mmol/L (3.5-5.1); Protein, Total 6.9 g/dL (6.4-8.2); Sodium Level 141 mmol/L (136-145)
--- NOTE | 2021-07-09 01:53 | EDPHYS ---
Physician Documentation [facility] Name: Gume Ortega Age: 30 yrs Sex: Female : 1990 Arrival Date: 07/09/2021 Time: 00:53 Bed 7 Private MD: ED Physician Adriel Mcfadden HPI: 07/09 01:01 This 30 yrs old Black Female presents to ER via EMS with complaints of pain all over. kb 01:01 Pt reports pain all over, exactly like other sickle cell crisis she has had in the kb past. Onset: The symptoms/episode began/occurred 1 week(s) ago. Severity of symptoms: At their worst the symptoms were moderate in the emergency department the symptoms are unchanged. The patient has not experienced similar symptoms in the past. The patient has been recently been admitted at [facility], was discharged earlier this week. CLERICAL GRADER: 01:22 LMP N/A - Irregular menses st1 Historical: - Allergies: 01:20 Fentanyl; st1 01:20 Morphine; st1 01:20 Sulfa (Sulfonamide Antibiotics); st1 01:20 Zofran; st1 - PMHx: 01:20 Anxiety; blood clot in lung; Sickle Cell; st1 - PSHx: 01:20 Port placed to Left Chest; st1 - Immunization history:: Client reports receiving the 1st dose of the Covid vaccine, Pfizer . - Social history:: Smoking status: Patient denies any tobacco usage or history of. Patient uses street drugs, marijuana, Patient/guardian denies using alcohol, IV drugs. ROS: 01:03 Constitutional: Negative for fever, chills, and weight loss. kb 01:03 Constitutional: Positive for pain all over. 01:03 Respiratory: Positive for shortness of breath, Negative for cough, dyspnea on exertion, hemoptysis, orthopnea, pleurisy, sputum production, wheezing. 01:03 All other systems are negative. Exam: 01:04 Constitutional: This is a well developed, well nourished patient who is awake, alert, kb and in no acute distress. Head/Face: Normocephalic, atraumatic. ENT: Moist Mucous membranes Cardiovascular: Regular rate and rhythm with a normal S1 and S2. No gallops, murmurs, or rubs. No pulse deficits. Respiratory: Respirations even and unlabored. No increased work of breathing. Talking in full sentences Skin: Warm, dry with normal turgor. Normal color. MS/ Extremity: Pulses equal, no cyanosis. Neurovascular intact. Full, normal range of motion. Neuro: Awake and alert, GCS 15, oriented to person, place, time, and situation. Moves all extremities. Normal gait. Psych: Awake, alert, with orientation to person, place and time. Behavior, mood, and affect are within normal limits. 01:33 ECG was reviewed by the Attending Physician. Vital Signs: 01:25 BP 109 / 61; Pulse 99; Resp 20; Temp 97.7; Pulse Ox 100% on R/A; Weight 70.76 kg; st1 Height 5 ft. 2 in. (157.48 cm); Pain 10/10; 03:27 BP 105 / 57; Pulse 84; Resp 16; Pulse Ox 99% on R/A; st1 01:25 Body Mass Index 28.53 (70.76 kg, 157.48 cm) st1 MDM: 00:56 Patient medically screened. 01:02 Data reviewed: vital signs, nurses notes. Data interpreted: Pulse oximetry: on room air kb is 100 %. Interpretation: normal. 01:51 Counseling: I had a detailed discussion with the patient and/or guardian regarding: the historical points, exam findings, and any diagnostic results supporting the discharge/admit diagnosis, lab results, radiology results, the need for further work-up and treatment in the hospital. 01:51 Physician consultation: Macie AGUILAR was contacted at 01:51, regarding admission, to the medical/surgical unit. patient's condition. 07/09 00:59 Order name: Basic Metabolic Panel 07/09 00:59 Order name: CBC with Diff 07/09 00:59 Order name: LFT's; Complete Time: :53 kb 07/09 00:59 Order name: Magnesium; Complete Time: :53 kb 07/09 00:59 Order name: NT PRO-BNP; Complete Time: :53 kb 07/09 00:59 Order name: PT-INR; Complete Time: 01:31 kb 07/09 00:59 Order name: Troponin HS; Complete Time: :53 kb 07/09 00:59 Order name: XRAY Chest (1 view) 07/09 00:59 Order name: Retic Count kb 07/09 01:02 Order name: Basic Metabolic Panel; Complete Time: 01:53 EDMS 07/09 01:31 Order name: CBC Smear Scan EDMS 07/09 02:17 Order name: COVID-19 SARS RT PCR (Document "Date of Onset" if Symptomatic) mw2 07/09 00:59 Order name: EKG; Complete Time: 01:02 kb 07/09 00:59 Order name: Cardiac monitoring; Complete Time: 01:29 kb 07/09 00:59 Order name: EKG - Nurse/Tech; Complete Time: 01:29 kb 07/09 00:59 Order name: IV Saline Lock; Complete Time: 01:17 kb 07/09 00:59 Order name: Labs collected and sent; Complete Time: 01:17 kb 07/09 00:59 Order name: O2 Per Protocol; Complete Time: 01:17 kb 07/09 00:59 Order name: O2 Sat Monitoring; Complete Time: 01:17 kb EC:33 Rate is 83 beats/min. Rhythm is regular. QRS [place] is Normal. [place] interval is normal at kb 122 msec. QRS interval is normal at 84 msec. QT interval is normal at 382 msec. Administered Medications: 01:18 Drug: Phenergan (promethazine) 12.5 mg Route: IVP; Site: Port-a-cath; st1 01:18 Drug: Dilaudid (HYDROmorphone) 2 mg Route: IVP; Site: Port-a-cath; st1 01:18 Drug: NS 0.9% 1000 ml Route: IV; Rate: 1000 ml; Site: Port-a-cath; st1 01:34 Drug: Benadryl (diphenhydrAMINE) 25 mg Route: IVP; Site: Port-a-cath; st1 02:07 Not Given (Duplicate Order): Dilaudid (HYDROmorphone) 1 mg IVP once; Mix into 50cc NS st1 and infuse over 30 minutes 02:14 Drug: Dilaudid (HYDROmorphone) 1 mg Route: IVP; Site: Port-a-cath; st1 Disposition: 05:03 Co-signature as Attending Physician, Adriel Mcfadden MD. mh7 Disposition Summary: 07/09/21 01:52 Hospitalization Ordered Hospitalization Status: Observation kb Provider: Jas Redd Location: Telemetry/MedSurg (observation) kb Condition: Stable kb Problem: an acute exacerbation kb Symptoms: are unchanged kb Bed/Room Type: Standard Room Assignment: 215(07/09/21 03:26) mw Diagnosis - Other sickle-cell disorders with crisis kb Forms: - Medication Reconciliation Form kb - SBAR form kb Signatures: Dispatcher [employer] Melissa Pickard, Chasity Carrasco RN RN Adriel Avila MD MD mh7 Hiwot Shah RN RN st1 Corrections: (The following items were deleted from the chart) 01:02 01:01 The patient has not recently seen a physician, itz 03:26 01:52 kb mw
--- NOTE | 2021-07-09 01:53 | ER ---
Nurse's Notes [facility] Name: Gume Ortega Age: 30 yrs Sex: Female : 1990 Arrival Date: 07/09/2021 Time: 00:53 Bed 7 Private MD: Diagnosis: Other sickle-cell disorders with crisis Presentation: 07/09 00:58 Chief complaint: EMS states: sickle cell pain which is generalized. Coronavirus screen: st1 Vaccine status: Patient reports receiving the 1st dose of the Covid vaccine. pfizer. Ebola Screen: No symptoms or risks identified at this time. Initial Sepsis Screen: Does the patient meet any 2 criteria? No. Patient's initial sepsis screen is negative. Does the patient have a suspected source of infection? No. Patient's initial sepsis screen is negative. Risk Assessment: Do you want to hurt yourself or someone else? Patient reports no desire to harm self or others. 00:58 Method Of Arrival: EMS: [facility] st1 00:58 Acuity: MARILUZ 3 st1 01:24 Onset of symptoms was July 08, 2021. st1 Triage Assessment: 01:21 General: Appears in no apparent distress. uncomfortable, slender, well groomed, st1 Behavior is calm, cooperative. Pain: Complains of pain in Generalized pain Pain currently is 10 out of 10 on a pain scale. at worst was 10 out of 10 on a pain scale. Quality of pain is described as aching. 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 - Social history:: Smoking status: Patient denies any tobacco usage or history of. Patient uses street drugs, marijuana, Patient/guardian denies using alcohol, IV drugs. Screenin:23 Abuse screen: Denies threats or abuse. Nutritional screening: No deficits noted. st1 Tuberculosis screening: No symptoms or risk factors identified. Fall Risk None identified. No fall in past 12 months (0 pts). Secondary diagnosis (15 points) Sickle Cell . IV access (20 points). Ambulatory Aid- None/Bed Rest/Nurse Assist (0 pts). Gait- Weak (10 pts.). Mental Status- Oriented to own ability (0 pts). Total Jaime Fall Scale indicates Low Risk Score (25-44 pts). Assessment: 01:23 Reassessment: Patient appears in no apparent distress at this time. Patient and/or st1 family updated on plan of care and expected duration. Pain level reassessed. Patient is alert, oriented x 3, equal unlabored respirations, skin warm/dry/pink. Respiratory: No deficits noted. Vital Signs: 01:25 BP 109 / 61; Pulse 99; Resp 20; Temp 97.7; Pulse Ox 100% on R/A; Weight 70.76 kg; st1 Height 5 ft. 2 in. (157.48 cm); Pain 10/10; 03:27 BP 105 / 57; Pulse 84; Resp 16; Pulse Ox 99% on R/A; st1 01:25 Body Mass Index 28.53 (70.76 kg, 157.48 cm) st1 ED Course: 00:53 Patient arrived in ED. mw2 00:56 Melissa Vazquez FNP-C [facility] kb 00:56 Adriel Mcfadden MD is Attending Physician. kb 00:58 Hiwot Shah, SHYAM is Primary Nurse. st1 01:00 Triage completed. st1 01:17 Troponin HS Sent. st1 01:17 PT-INR Sent. st1 01:17 NT PRO-BNP Sent. st1 01:17 Magnesium Sent. st1 01:17 LFT's Sent. st1 01:17 CBC with Diff Sent. st1 01:18 Basic Metabolic Panel Sent. st1 01:18 Retic Count Sent. st1 01:18 Basic Metabolic Panel Sent. st1 01:19 Inserted Port- left subclavian. st1 01:22 Arm band placed on left wrist. st1 01:24 Patient has correct armband on for positive identification. Placed in gown. Bed in low st1 position. Call light in reach. Side rails up X2. patient monitor on. Pulse ox on. NIBP on. :27 XRAY Chest (1 view) In Process Unspecified. EDMS 01:52 Jas Redd is Hospitalizing Provider. kb 02:30 COVID-19 SARS RT PCR (Document "Date of Onset" if Symptomatic) Sent. st1 03:29 No provider procedures requiring assistance completed. st1 03:35 Patient admitted, IV remains in place. st1 Administered Medications: 01:18 Drug: Phenergan (promethazine) 12.5 mg Route: IVP; Site: Port-a-cath; st1 01:18 Drug: Dilaudid (HYDROmorphone) 2 mg Route: IVP; Site: Port-a-cath; st1 01:18 Drug: NS 0.9% 1000 ml Route: IV; Rate: 1000 ml; Site: Port-a-cath; st1 01:34 Drug: Benadryl (diphenhydrAMINE) 25 mg Route: IVP; Site: Port-a-cath; st1 02:07 Not Given (Duplicate Order): Dilaudid (HYDROmorphone) 1 mg IVP once; Mix into 50cc NS st1 and infuse over 30 minutes 02:14 Drug: Dilaudid (HYDROmorphone) 1 mg Route: IVP; Site: Port-a-cath; st1 Outcome: 01:52 Decision to Hospitalize by Provider. kb 03:33 Admitted to Tele accompanied by tech, via stretcher, room 215, with chart, Report st1 called to SHYAM Dickens 03:33 Condition: stable 03:33 Instructed on the need for admit, Demonstrated understanding of Admission to hospital 03:47 Patient left the ED. st1 Signatures: Dispatcher [employer] EDMelissa Willoughby, [facility]-Marisol Hanson mw2 Hiwot Shah, RN RN st1
[2021-07-09 02:02] LABS: Anisocytosis 1+; Blood Morphology Comment NOTED (NOT SEEN); Burr Cells 1+; Elliptocytes 2+; Ovalocytes 1+; Platelet Estimate INCR; Poikilocytosis 1+; Stomatocytes 1+; White Blood Cell Scan OK (OK)
[2021-07-09] MEDS ORDERED: NA CHLORIDE 0.9% 50 ML ONE (02:13)
--- NOTE | 2021-07-09 02:32 | P.HP ---
Certification for Inpatient Patient admitted to: Inpatient With expected LOS: >2 Midnights Patient will require the following post-hospital care: None Practitioner: I am a practitioner with admitting privileges, knowledge of patient current condition, hospital course, and medical plan of care. Services: Services provided to patient in accordance with Admission requirements found in Title 42 Section 412.3 of the Code of Federal Regulations Patient History Date of Service: 07/09/21 Reason for admission: Sickle Cell Crsis History of Present Illness: Patient is a 30-year-old black female with sickle cell and history of pulmonary embolism who presents to the ED with complaints of pain all over and shortness of breath. She reports this is her typical sickle cell pain and denies any new symptoms. Labs significant for WBC 14.9, hemoglobin 8.6 (around baseline), magnesium 1.7, retic 0.09, chest x-ray pending. Will admit patient for pain management and IV fluid hydration. Allergies ondansetron HCl [From Zofran] Allergy (Mild, Verified 08/02/12 16:51) Nausea/Vomiting morphine Allergy (Verified 12/21/20 21:22) Nausea/Vomiting Sulfa (Sulfonamide Antibiotics) Allergy (Verified 12/21/20 21:22) Nausea/Vomiting Home medications list reviewed: Yes Home Medications: Folic Acid [Folic Acid*] 1 mg PO DAILY 08/01/12 Promethazine Tab [Phenergan*] 25 mg PO Q4H PRN #30 tab 11/15/19 ALPRAZolam [Xanax*] 1 mg PO BIDP PRN 09/30/20 Cholecalciferol (Vitamin D3) [Vitamin D 1000 Iu Tab*] 1,000 unit PO EVERY 7TH DAY 09/30/20 Apixaban [Eliquis *] 2.5 mg PO BID #60 tablet 12/21/20 Hydromorphone HCl [Dilaudid] 8 mg PO TID PRN 30 Days #60 tablet 12/21/20 clonazePAM [Klonopin] 0.5 mg PO BID PRN #40 tab 07/05/21 - Past Medical/Surgical History Diabetic: No -: sickle cell -: pneumonia -: blod clot left lung -: port-a-cath placement Psychosocial/ Personal History: Patient lives at home with her girlfriend - Family History Mother -: Other (see notes) Notes: sickle cell trait Father -: Other (see notes) Notes: sickle cell trait - Social History Smoking Status: Never smoker Alcohol use: No CD- Drugs: Yes Caffeine use: No Review of Systems 10-point ROS is otherwise unremarkable General: Weakness, As per HPI Respiratory: Shortness of Breath Physical Examination - Physical Exam General: Alert, In no apparent distress HEENT: Atraumatic, PERRLA, Mucous membr. moist/pink, EOMI, Sclerae nonicteric Neck: Supple, 2+ carotid pulse no bruit, No LAD, Without JVD or thyroid abnormality Respiratory: Clear to auscultation bilaterally, Normal air movement Cardiovascular: Regular rate/rhythm, Normal S1 S2 Gastrointestinal: Normal bowel sounds, No tenderness Musculoskeletal: Tenderness Integumentary: No rashes Neurological: Normal speech, Normal strength at 5/5 x4 extr, Normal tone, Normal affect - Studies Laboratory Data (last 24 hrs) 07/09/21 01:15: PT 26.1 H, INR 2.25 07/09/21 01:15: WBC 14.90 H, Hgb 8.6 L, Hct 24.8 L, Plt Count 415 H 07/09/21 01:15: Sodium 141, Potassium 3.5, BUN 7, Creatinine 0.48 L, Glucose 90, Magnesium 1.7 L, Total Bilirubin 2.1 H, AST 27, ALT 19, Alkaline Phosphatase 81 Assessment and Plan - Problems (Diagnosis) (1) History of pulmonary embolism Current Visit: No Status: Chronic (2) Sickle cell pain crisis Current Visit: Yes Status: Acute - Plan -Patient will be admitted for pain control Dilaudid 2 mg, promethazine 12.5, and diphenhydramine q4hr PRN -Patient's hemoglobin is 8 and appears around her baseline -Patient's WBC is 14 and appears below her baseline -Patient reports shortness of breath. chest x-ray pending. -Patient denies any new problems at this DVT PPx: Eliquis CODE STATUS: Full Discharge Plan: Home Plan to discharge in: Greater than 2 days - Advance Directives Does patient have a Living Will: No Does patient have a Durable POA for Healthcare: No - Code Status/Comfort Care Code Status Assessed: Yes (Full) Physician Review: Patient Assessed, Agree with Above Assessment and Plan Critical Care: No Time Spent Managing Pts Care (In Minutes): 70
[2021-07-09] MEDS ORDERED: MAGNESIUM SULFATE 1 gm IVPB 1 GM/100 ML BAG IV ONE (03:00)
[2021-07-09] MEDS: NA CHLORIDE 0.9% 1,000 ML IV SCH ×2 (03:00→12:22)
[2021-07-09] MEDS: PROMETHAZINE INJ 25 MG/ML AMP IV PRN ×4 (03:10→20:27)
[2021-07-09] MEDS: HYDROMORPHONE HCL 2 MG/ML inj IV PRN ×5 (04:28→20:27)
[2021-07-09] MEDS: DIPHENHYDRAMINE 50 MG/ML VIAL IV PRN ×5 (04:28→20:27)
[2021-07-09 05:13] LABS: RBC Red Blood Cell Count 2.92 M/uL (3.86-4.86)
[2021-07-09 05:38] VITALS: BMI 27.6
--- NOTE | 2021-07-09 08:44 | RAD REPORT ---
EXAM DESCRIPTION: RAD - Chest Single View - 07/09/2021 1:27 am CLINICAL HISTORY: PAIN COMPARISON: Chest Single View dated 07/05/2021; Chest Single View dated 06/30/2021; Chest Single View dated 06/29/2021; Chest Single View dated 02/17/2021 FINDINGS: Lines: Left IJ approach Port-A-Cath with tip overlying the right atrium. Lungs: No evidence of edema or pneumonia. Pleural: No significant pleural effusions or pneumothorax. Cardiac: The heart size is within normal limits. Bones: No acute fractures. Other: IMPRESSION: No acute cardiopulmonary disease.
[2021-07-09] MEDS: ALPRAZOLAM 1 MG TABLET PO SCH ×2 (08:49→20:26)
[2021-07-09] MEDS: APIXABAN 2.5 MG TABLET PO SCH ×2 (08:49→20:26)
[2021-07-09] MEDS ORDERED: INFLUENZA VACCINE (for 6+ mo) 0.5 ML DOSE IMVAC ONE (09:00)
[2021-07-09 12:44] LABS: Urine Appearance CLEAR (Clear); Urine Bilirubin NEGATIVE (Negative); Urine Blood NEGATIVE (Negative); Urine Color YELLOW (Yellow); Urine Glucose NEGATIVE (Negative); Urine Protein NEGATIVE (Negative); Urine Specific Gravity 1.015 (1.005-1.030); Urine Urobilinogen 0.2 mg/dL (0.2-1.0); Urine pH 6.5 (5.0-7.0)
[2021-07-09 12:51] LABS: Urine Microscopic Reflex NO UMIC
--- NOTE | 2021-07-09 15:10 | P.PN ---
Date of Service: 07/09/21 Patient seen and examined. She is complaining of generalized joint pains. Diagnosis: Sickle cell painful crisis History of pulmonary embolism. Plan: Continue IV hydration. Pain management as needed Continue apixaban Monitor blood chemistry, LFT and CBC.
[2021-07-10] MEDS: NA CHLORIDE 0.9% 1,000 ML IV SCH ×3 (00:25→16:15)
[2021-07-10] MEDS: DIPHENHYDRAMINE 50 MG/ML VIAL IV PRN ×6 (00:28→20:20)
[2021-07-10] MEDS: PROMETHAZINE INJ 25 MG/ML AMP IV PRN ×6 (00:28→20:18)
[2021-07-10] MEDS: HYDROMORPHONE HCL 2 MG/ML inj IV PRN ×6 (00:28→20:17)
[2021-07-10 05:11] LABS: Absolute Lymphocytes (CBC) 5.5 K/uL (0.7-4.9); Hematocrit 24.3 % (36.0-45.0); Lymphocytes % 38.2 % (15.3-44.8); MPV 8.9 fL (7.6-11.3); RBC Red Blood Cell Count 2.65 M/uL (3.86-4.86)
[2021-07-10 05:22] LABS: ALT/SGPT 25 U/L (12-78); AST/SGOT 31 U/L (15-37); Albumin 3.4 g/dL (3.4-5.0); Alkaline Phosphatase 83 U/L (45-117); BUN Blood Urea Nitrogen 11 mg/dL (7-18); Bicarbonate 27 mmol/L (21-32); Bilirubin Total 2.2 mg/dL (0.2-1.0); Glucose Level 90 mg/dL (74-106); Potassium 4.1 mmol/L (3.5-5.1); Protein, Total 6.5 g/dL (6.4-8.2); Sodium Level 141 mmol/L (136-145)
[2021-07-10] MEDS: ALPRAZOLAM 1 MG TABLET PO SCH ×2 (08:48→20:17)
[2021-07-10] MEDS: APIXABAN 2.5 MG TABLET PO SCH ×2 (08:49→20:16)
--- NOTE | 2021-07-10 08:50 | EKG ---
Test Date: 2021-07-09 Test Time: 01:29:26 Leather Cleaner: KVNG MEASUREMENT RESULTS: Intervals: Rate: 83 ME: 122 QRSD: 84 QT: 382 QTc: 448 Vici: P: 67 ME: 122 QRS: 80 T: 68 INTERPRETIVE STATEMENTS: Normal sinus rhythm Normal ECG Compared to ECG 06/29/2021 14:50:29 Sinus arrhythmia no longer present Electronically Signed On 07-10-21 08:47:48 MATTRESS INSPECTOR by Jeremie Pan
--- NOTE | 2021-07-10 17:18 | P.PN ---
Subjective Date of Service: 07/10/21 Chief Complaint: Sickle Cell Crsis Patient report persistent pain in her joints and abdomen. She has no fever. She is tolerating diet and wants her diet advanced. Physical Examination - Vital Signs Temperature: 97.7 F Blood Pressure: 112/58 Pulse: 74 Respirations: 22 Pulse Ox (%): 98 Assessment And Plan - Plan Physical Exam General: Alert, NAD HEENT: Mucous membr. moist/pink, Sclerae nonicteric Neck: Supple, No LAD, Without JVD. Respiratory: Clear to auscultation bilaterally, Normal air movement Cardiovascular: Regular rate/rhythm, Normal S1 S2 Gastrointestinal: Normal bowel sounds, No tenderness Musculoskeletal: Tenderness-shoulder joints. Integumentary: No rashes Neurological: Normal speech, Normal strength at 5/5 x4 extr, Normal tone, Normal affect Plan: Continue supportive measures with IV hydration. IV opiate as needed for pain. Advance diet as tolerated. Reticulocyte count significantly improved. Bilirubin level unchanged. UA negative for UTI. Chest x-ray is unremarkable. No indication for antibiotics. Continue to monitor CBC and CMP Possible discharge in a.m.
[2021-07-11] MEDS: PROMETHAZINE INJ 25 MG/ML AMP IV PRN ×6 (00:51→23:54)
[2021-07-11] MEDS: DIPHENHYDRAMINE 50 MG/ML VIAL IV PRN ×6 (00:52→23:54)
[2021-07-11] MEDS: HYDROMORPHONE HCL 2 MG/ML inj IV PRN ×6 (00:52→23:54)
[2021-07-11] MEDS: NA CHLORIDE 0.9% 1,000 ML IV SCH ×4 (00:52→21:03)
[2021-07-11 05:51] LABS: Absolute Lymphocytes (CBC) 5.8 K/uL (0.7-4.9); MPV 8.1 fL (7.6-11.3); RBC Red Blood Cell Count 2.66 M/uL (3.86-4.86)
[2021-07-11 06:08] LABS: ALT/SGPT 31 U/L (12-78); AST/SGOT 37 U/L (15-37); Albumin 3.6 g/dL (3.4-5.0); Alkaline Phosphatase 98 U/L (45-117); BUN Blood Urea Nitrogen 13 mg/dL (7-18); Bicarbonate 26 mmol/L (21-32); Glucose Level 87 mg/dL (74-106); Protein, Total 6.9 g/dL (6.4-8.2); Sodium Level 140 mmol/L (136-145)
--- NOTE | 2021-07-11 06:19 | P.PN ---
Date of Service: 07/11/21 Subjective: IV pain medication helps, but does not last long enough Overall feels about the same, maybe slightly better Continues with nausea, no diarrhea ROS: 10 point ROS as noted above, otherwise negative Physical exam GEN: Alert, oriented, appears uncomfortable HEENT: Normal conjunctiva, sclera anicteric CV: Regular rate and rhythm, no edema Pulm: Nonlabored respirations on room air ABD: Soft, nontender, nondistended Integumentary: No rashes Neuro: Normal speech, moves extremities Problem List Sickle cell crisis/pain h/o PE Continue IV hydration, diet as tolerated Antiemetics as needed Restart home p.o. Dilaudid regimen, 8 mg 3 times daily IV pain medication as needed for breakthrough WBC stable Hemoglobin and reticulocyte count stable/improved Work-up otherwise negative for acute infection, no indication for antibiotics Continue to monitor closely VTE: home eliquis Code: Full Dispo: home, likely 1-2 days Time Spent Managing Pts Care (In Minutes): 35
[2021-07-11] MEDS: ALPRAZOLAM 1 MG TABLET PO SCH ×2 (09:53→21:03)
[2021-07-11] MEDS: APIXABAN 2.5 MG TABLET PO SCH ×2 (09:53→21:03)
[2021-07-11] MEDS: HYDROMORPHONE ORAL 4 MG TAB PO SCH ×2 (11:49→17:37)
[2021-07-12] MEDS: HYDROMORPHONE ORAL 4 MG TAB PO SCH ×3 (01:01→16:47)
[2021-07-12] MEDS: DIPHENHYDRAMINE 50 MG/ML VIAL IV PRN ×4 (03:35→17:21)
[2021-07-12] MEDS: PROMETHAZINE INJ 25 MG/ML AMP IV PRN ×5 (03:35→20:58)
[2021-07-12] MEDS: HYDROMORPHONE HCL 2 MG/ML inj IV PRN ×3 (03:36→13:33)
[2021-07-12 03:46] LABS: Absolute Lymphocytes (CBC) 6.1 K/uL (0.7-4.9); Hematocrit 21.5 % (36.0-45.0); Lymphocytes % 33.4 % (15.3-44.8); MPV 8.5 fL (7.6-11.3); RBC Red Blood Cell Count 2.39 M/uL (3.86-4.86)
[2021-07-12 04:00] LABS: ALT/SGPT 35 U/L (12-78); AST/SGOT 34 U/L (15-37); Albumin 3.5 g/dL (3.4-5.0); Alkaline Phosphatase 90 U/L (45-117); BUN Blood Urea Nitrogen 13 mg/dL (7-18); Bicarbonate 27 mmol/L (21-32); Bilirubin Total 1.7 mg/dL (0.2-1.0); Glucose Level 85 mg/dL (74-106); Potassium 3.9 mmol/L (3.5-5.1); Protein, Total 6.7 g/dL (6.4-8.2); Sodium Level 140 mmol/L (136-145)
[2021-07-12] MEDS: NA CHLORIDE 0.9% 1,000 ML IV SCH ×2 (06:20→16:50)
--- NOTE | 2021-07-12 06:36 | P.PN ---
Date of Service: 07/12/21 Subjective: Reports improvement in pain control with combination of p.o. and IV Dilaudid Still with ongoing pain No new symptoms, no worsening of symptoms Hemoglobin slightly decreased today ROS: 10 point ROS as noted above, otherwise negative Physical exam GEN: Alert, oriented, appears uncomfortable CV: Regular rate and rhythm, no edema Pulm: Nonlabored respirations on room air ABD: Soft, nontender, nondistended Integumentary: No rashes Neuro: Normal speech, moves extremities Problem List Sickle cell crisis/pain h/o PE Continue IV hydration, diet as tolerated Antiemetics as needed Restarted home p.o. Dilaudid regimen, 8 mg 3 times daily on 07/11 IV pain medication as needed for breakthrough slight increase in leukocytosis Hgb slightly decreased, retic count slightly increased Work-up otherwise negative for acute infection, no indication for antibiotics, remains afebrile Continue to monitor closely if no significant improvement tomorrow, will consider heme consult VTE: home eliquis Code: Full Dispo: home, likely 2-3 days Time Spent Managing Pts Care (In Minutes): 35
[2021-07-12 07:44] LABS: RBC Red Blood Cell Count 2.42 M/uL (3.86-4.86)
[2021-07-12] MEDS: ALPRAZOLAM 1 MG TABLET PO SCH ×2 (09:04→20:54)
[2021-07-12] MEDS: APIXABAN 2.5 MG TABLET PO SCH ×2 (09:04→20:58)
[2021-07-12] MEDS ORDERED: HYDROMORPHONE HCL 0.5 MG/0.5 ML INJ ONE (20:29)
[2021-07-12] MEDS ORDERED: DIPHENHYDRAMINE 50 MG/ML VIAL ONE (20:30)
[2021-07-13] MEDS: HYDROMORPHONE HCL 2 MG/ML inj IV PRN ×6 (00:45→22:04)
[2021-07-13] MEDS: PROMETHAZINE INJ 25 MG/ML AMP IV PRN ×6 (00:56→22:03)
[2021-07-13] MEDS ORDERED: PROMETHAZINE INJ 25 MG/ML AMP ONE (00:56)
[2021-07-13] MEDS: HYDROMORPHONE ORAL 4 MG TAB PO SCH ×3 (01:00→17:00)
[2021-07-13] MEDS: DIPHENHYDRAMINE 50 MG/ML VIAL IV PRN ×5 (05:21→22:03)
--- NOTE | 2021-07-13 06:18 | P.PN ---
Date of Service: 07/13/21 Subjective: feels she is making improvement slowly current pain regimen is helping tolerating diet, ambulating to bathroom slowly ROS: 10 point ROS as noted above, otherwise negative Physical exam GEN: Alert, oriented, appears slightly uncomfortable, sitting up, eating breakfast CV: Regular rate and rhythm, no edema Pulm: Nonlabored respirations on room air ABD: Soft, nontender, nondistended Integumentary: No rashes Neuro: Normal speech, moves extremities Problem List Sickle cell crisis/pain h/o PE decrease IVF Antiemetics as needed Restarted home p.o. Dilaudid regimen, 8 mg 3 times daily on 07/11 IV pain medication as needed for breakthrough Hgb slightly decreased, retic count slightly increased. stable today Work-up otherwise negative for acute infection, no indication for antibiotics, remains afebrile Continue to monitor closely VTE: Home, Eliquis Code: Full Dispo: home, likely 2-3 days Time Spent Managing Pts Care (In Minutes): 35
[2021-07-13 06:55] LABS: Absolute Lymphocytes (CBC) 5.7 K/uL (0.7-4.9); Hematocrit 22.4 % (36.0-45.0); Lymphocytes % 35.3 % (15.3-44.8); MPV 8.8 fL (7.6-11.3); RBC Red Blood Cell Count 2.41 M/uL (3.86-4.86)
[2021-07-13] MEDS: NA CHLORIDE 0.9% 1,000 ML IV SCH ×3 (07:00→14:32)
[2021-07-13 07:07] LABS: ALT/SGPT 49 U/L (12-78); AST/SGOT 37 U/L (15-37); Albumin 3.8 g/dL (3.4-5.0); Alkaline Phosphatase 102 U/L (45-117); BUN Blood Urea Nitrogen 12 mg/dL (7-18); Bicarbonate 26 mmol/L (21-32); Bilirubin Total 1.9 mg/dL (0.2-1.0); Glucose Level 122 mg/dL (74-106); Potassium 3.7 mmol/L (3.5-5.1); Protein, Total 7.4 g/dL (6.4-8.2); Sodium Level 141 mmol/L (136-145)
[2021-07-13] MEDS ORDERED: POTASSIUM CL SA 10 MEQ TAB PO ONE (09:00)
[2021-07-13] MEDS: ALPRAZOLAM 1 MG TABLET PO SCH ×2 (09:38→20:56)
[2021-07-13] MEDS: APIXABAN 2.5 MG TABLET PO SCH ×2 (09:39→20:56)
[2021-07-14] MEDS: HYDROMORPHONE ORAL 4 MG TAB PO SCH ×3 (01:00→17:58)
[2021-07-14] MEDS: PROMETHAZINE INJ 25 MG/ML AMP IV PRN ×6 (02:20→23:46)
[2021-07-14] MEDS: HYDROMORPHONE HCL 2 MG/ML inj IV PRN ×6 (02:20→23:45)
[2021-07-14] MEDS: DIPHENHYDRAMINE 50 MG/ML VIAL IV PRN ×6 (02:20→23:45)
--- NOTE | 2021-07-14 06:24 | P.PN ---
Date of Service: 07/14/21 Subjective: in pain this morning, in between dosing. just received PO dilaudid Otherwise states he stays getting slightly better, slowly Tolerating p.o., able to ambulate to bathroom Denies any shortness of breath ROS: 10 point ROS as noted above, otherwise negative Physical exam GEN: Alert, oriented, appears slightly uncomfortable CV: Regular rate and rhythm, no edema Pulm: Nonlabored respirations on room air, clear to auscultation bilaterally ABD: Soft, nontender, nondistended Integumentary: No rashes / lesions Neuro: Normal speech, moves extremities Problem List Sickle cell crisis/pain h/o PE IV fluids decreased on 07/13, continue current Antiemetics as needed Restarted home p.o. Dilaudid regimen, 8 mg 3 times daily on 07/11 IV pain medication as needed for breakthrough Pain is slowly improving Hemoglobin stable Reticulocyte count slightly increasing Leukocytosis slightly increased as well Remains afebrile Work-up otherwise negative for acute infection, no indication for antibiotics, r emains afebrile Continue to monitor closely VTE: Home Eliquis Code: Full Dispo: home, likely 07/16-07/17 Time Spent Managing Pts Care (In Minutes): 35
[2021-07-14 07:32] LABS: Absolute Lymphocytes (CBC) 6.9 K/uL (0.7-4.9); Hematocrit 21.7 % (36.0-45.0); Lymphocytes % 34.8 % (15.3-44.8); MPV 9.8 fL (7.6-11.3); RBC Red Blood Cell Count 2.36 M/uL (3.86-4.86)
[2021-07-14 07:50] LABS: ALT/SGPT 59 U/L (12-78); AST/SGOT 52 U/L (15-37); Albumin 3.4 g/dL (3.4-5.0); Alkaline Phosphatase 115 U/L (45-117); BUN Blood Urea Nitrogen 13 mg/dL (7-18); Bicarbonate 29 mmol/L (21-32); Bilirubin Total 1.5 mg/dL (0.2-1.0); Glucose Level 86 mg/dL (74-106); Potassium 3.9 mmol/L (3.5-5.1); Protein, Total 6.6 g/dL (6.4-8.2); Sodium Level 139 mmol/L (136-145)
[2021-07-14] MEDS: ALPRAZOLAM 1 MG TABLET PO SCH ×2 (09:08→19:56)
[2021-07-14] MEDS: APIXABAN 2.5 MG TABLET PO SCH ×2 (09:45→19:57)
[2021-07-14 13:35] LABS: Platelet Estimate ADEQ
[2021-07-14 13:36] LABS: Anisocytosis 2+; Blood Morphology Comment NOTED (NOT SEEN); Hypochromasia 1+; Polychromasia 2+; Target Cells 1+
[2021-07-14] MEDS: NA CHLORIDE 0.9% 1,000 ML IV SCH (19:58)
[2021-07-15] MEDS: HYDROMORPHONE ORAL 4 MG TAB PO SCH ×3 (00:51→17:45)
[2021-07-15] MEDS: HYDROMORPHONE HCL 2 MG/ML inj IV PRN ×5 (03:41→20:26)
[2021-07-15] MEDS: PROMETHAZINE INJ 25 MG/ML AMP IV PRN ×5 (03:41→20:26)
[2021-07-15] MEDS: DIPHENHYDRAMINE 50 MG/ML VIAL IV PRN ×5 (03:41→20:26)
--- NOTE | 2021-07-15 06:39 | P.PN ---
Date of Service: 07/15/21 Subjective: Feels like each day getting chest very slightly better Still requiring scheduled p.o. Dilaudid, with IV breakthrough every 4 hours Leukocytosis and reticulocyte count up trending Hemoglobin stable Denies shortness of breath, reports right posterior chest feels discomfort with taking a deep breath ROS: 10 point ROS as noted above, otherwise negative Physical exam GEN: Alert, oriented, appears slightly uncomfortable, sitting up, eating break fast CV: Regular rate and rhythm, trace b/l pedal edema Pulm: Nonlabored respirations on room air, clear to auscultation bilaterally ABD: Soft, nontender, nondistended Integumentary: No rashes / lesions MSK: no posterior thoracic tenderness, no CVA tenderness Neuro: Normal speech, moves extremities Problem List Sickle cell crisis/pain h/o PE IV fluids decreased on 07/13, continue current rate @50 /hr Restarted home p.o. Dilaudid regimen, 8 mg 3 times daily on 07/11 IV pain medication as needed for breakthrough Pain is slowly improving Hemoglobin stable Leukocytosis, reticulocyte count increasing Remains afebrile Right-sided posterior thoracic discomfort, given ongoing pain, and increasing leukocytosis will obtain CT for further evaluation Work-up otherwise negative for acute infection, no indication for antibiotics, remains afebrile Continue to monitor closely VTE: Home Eliquis Code: Full Dispo: home, likely 07/17-07/18 Time Spent Managing Pts Care (In Minutes): 35
[2021-07-15 07:32] LABS: Absolute Lymphocytes (CBC) 6.4 K/uL (0.7-4.9); Hematocrit 21.4 % (36.0-45.0); MPV 8.3 fL (7.6-11.3)
[2021-07-15 07:53] LABS: ALT/SGPT 78 U/L (12-78); AST/SGOT 55 U/L (15-37); Albumin 3.4 g/dL (3.4-5.0); Alkaline Phosphatase 97 U/L (45-117); BUN Blood Urea Nitrogen 9 mg/dL (7-18); Bicarbonate 30 mmol/L (21-32); Bilirubin Total 1.4 mg/dL (0.2-1.0); Glucose Level 107 mg/dL (74-106); Potassium 3.9 mmol/L (3.5-5.1); Protein, Total 6.6 g/dL (6.4-8.2); Sodium Level 140 mmol/L (136-145)
[2021-07-15] MEDS: ALPRAZOLAM 1 MG TABLET PO SCH ×2 (08:46→21:29)
[2021-07-15] MEDS: APIXABAN 2.5 MG TABLET PO SCH ×2 (08:49→20:27)
[2021-07-15] MEDS: NA CHLORIDE 0.9% 1,000 ML IV SCH (08:49)
[2021-07-15 09:32] LABS: Platelet Estimate ADEQ; Platelets, Giant FEW
[2021-07-15 09:33] LABS: Anisocytosis 1+; Blood Morphology Comment NOTED (NOT SEEN); Elliptocytes 1+; Howell-Jolly Bodies NOTED; Polychromasia 2+
--- NOTE | 2021-07-15 17:45 | RAD REPORT ---
EXAM DESCRIPTION: CTChest Abdomen Pelvis W Cont - 07/15/2021 5:30 pm CLINICAL HISTORY: R posterior thoracic discomfort COMPARISON: No comparisons TECHNIQUE: CT of the chest, abdomen, and pelvis was performed. All CT scans are performed using dose optimization technique as appropriate and may include automated exposure control or mA/KV adjustment according to patient size. FINDINGS: Thorax: Chest Wall: No abnormal mass left upper chest wall Port-A-Cath. Lungs: Scattered prominent clusters of interstitial markings that may reflect scarring. No acute proc ess in the lungs identified . Pleura: No effusions or pneumothorax. Rosemary/Mediastinum: No lymphadenopathy. Aorta/Pulmonary Arteries: Unremarkable Heart: Normal size. Abdomen/Pelvis: Liver: No acute abnormality or suspicious lesions. Biliary: Cholelithiasis. The gallbladder is contracted. Stomach: No significant focal abnormality. Duodenum: No significant focal abnormality. Pancreas: No significant abnormality. 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 Adrenal: No suspicious lesions. Kidney/ureter: No hydronephrosis. No renal calculi. Retroperitoneum: No retroperitoneal adenopathy. Vascular: No aneurysm. Bowel: Large stool burden in the colon. No bowel obstruction. Normal appendix. Peritoneum: Pelvic free fluid. Bladder: Circumferential bladder wall thickening. Reproductive: No adnexal masses. Bones: No acute fracture. Other: n/a IMPRESSION: No acute findings within the chest, abdomen, or pelvis. Large colonic stool burden suggesting constipation. No bowel obstruction. Circumferential bladder wall thickening. Correlate with urinalysis to exclude cystitis. Cholelithiasis. No CT evidence of acute cholecystitis.
[2021-07-15] MEDS ORDERED: POLYETHYL GLY 3350 17 GM/DOSE PO PRN (18:06)
[2021-07-15] MEDS: BISACODYL E.C. 5 MG TAB PO SCH (20:27)
[2021-07-16] MEDS: DIPHENHYDRAMINE 50 MG/ML VIAL IV PRN ×6 (00:25→20:35)
[2021-07-16] MEDS: PROMETHAZINE INJ 25 MG/ML AMP IV PRN ×6 (00:25→20:34)
[2021-07-16] MEDS: HYDROMORPHONE HCL 2 MG/ML inj IV PRN ×6 (00:25→20:35)
[2021-07-16] MEDS: HYDROMORPHONE ORAL 4 MG TAB PO SCH ×3 (02:11→18:07)
[2021-07-16] MEDS: NA CHLORIDE 0.9% 1,000 ML IV SCH ×2 (04:32→08:34)
[2021-07-16 05:35] LABS: Absolute Lymphocytes (CBC) 6.4 K/uL (0.7-4.9); Lymphocytes % 32.4 % (15.3-44.8); MPV 8.1 fL (7.6-11.3); RBC Red Blood Cell Count 2.14 M/uL (3.86-4.86)
[2021-07-16 06:03] LABS: BUN Blood Urea Nitrogen 11 mg/dL (7-18); Bicarbonate 29 mmol/L (21-32); Glucose Level 96 mg/dL (74-106); Magnesium 1.9 mg/dL (1.8-2.4); Sodium Level 140 mmol/L (136-145)
[2021-07-16 06:12] LABS: Hematocrit 20.1 % (36.0-45.0)
--- NOTE | 2021-07-16 06:19 | P.PN ---
Date of Service: 07/16/21 Subjective: Reports feels some very mild improvement Has some spikes of pain when pain medication wears off Denies shortness of breath No new symptoms/no new pains No dysuria, no urinary frequency, no UTI complaints ROS: 10 point ROS as noted above, otherwise negative Physical exam GEN: Alert, oriented, uncomfortable appearing CV: Regular rate and rhythm, no edema Pulm: Nonlabored respirations on room air, clear to auscultation bilaterally ABD: Soft, nontender, nondistended Integumentary: No rashes / lesions MSK: no posterior thoracic tenderness, no CVA tenderness Neuro: Normal speech, moves extremities Problem List Sickle cell crisis/pain h/o PE, on eliquis IV fluids decreased on 07/13, continue current rate @50 /hr Restarted home p.o. Dilaudid regimen, 8 mg 3 times daily on 07/11, increased to 4 times daily on 07/16 IV pain medication as needed for breakthrough Pain is slowly improving Hgb slowly downtrending, now <7.0, will transfuse 1u PRBC, retic count increased remains afebrile CT chest/abd/pelvis: no acute process, mod stool burden, circumferential bladder wall thickening; started stool softeners. patient reports normal/regular BMs daily here Work-up otherwise negative for acute infection, no indication for antibiotics, remains afebrile Continue to monitor closely VTE: Home Eliquis Code: Full Dispo: home, ~2-3 days, pending further improvement in pain, hgb stable, improved cell counts Time Spent Managing Pts Care (In Minutes): 35
[2021-07-16] MEDS: APIXABAN 2.5 MG TABLET PO SCH ×2 (08:33→20:34)
[2021-07-16] MEDS: BISACODYL E.C. 5 MG TAB PO SCH (08:33)
[2021-07-16] MEDS: ALPRAZOLAM 1 MG TABLET PO SCH ×2 (09:02→20:34)
[2021-07-16 09:25] LABS: Platelet Estimate INCR; White Blood Cell Scan OK (OK)
[2021-07-16 09:26] LABS: Anisocytosis 1+; Blood Morphology Comment NOTED (NOT SEEN); Hypochromasia 1+; Platelets, Giant PRESENT; Poikilocytosis 1+; Polychromasia 2+
[2021-07-16] MEDS ORDERED: NA CHLORIDE 0.9% 250 ML IV SCH (11:00)
[2021-07-16] MEDS ORDERED: NA CHLORIDE 0.9% 250 ML ONE (20:55)
[2021-07-17] MEDS: PROMETHAZINE INJ 25 MG/ML AMP IV PRN ×6 (00:31→21:36)
[2021-07-17] MEDS: DIPHENHYDRAMINE 50 MG/ML VIAL IV PRN ×6 (00:34→21:35)
[2021-07-17] MEDS: HYDROMORPHONE HCL 2 MG/ML inj IV PRN ×6 (00:35→21:35)
[2021-07-17] MEDS: HYDROMORPHONE ORAL 4 MG TAB PO SCH ×4 (01:52→17:59)
[2021-07-17 05:06] LABS: Absolute Lymphocytes (CBC) 5.2 K/uL (0.7-4.9); Hematocrit 26.4 % (36.0-45.0); Lymphocytes % 24.9 % (15.3-44.8); MPV 8.3 fL (7.6-11.3); RBC Red Blood Cell Count 2.83 M/uL (3.86-4.86)
[2021-07-17 05:12] LABS: BUN Blood Urea Nitrogen 8 mg/dL (7-18); Bicarbonate 30 mmol/L (21-32); C-Reactive Protein 7.13 mg/L (<3.00); Glucose Level 73 mg/dL (74-106); Sodium Level 139 mmol/L (136-145)
[2021-07-17 05:35] LABS: Blood Morphology Comment NOTED (NOT SEEN); Platelet Estimate ADEQ; Polychromasia 3+; Target Cells 1+
--- NOTE | 2021-07-17 06:17 | P.PN ---
Date of Service: 07/17/21 Subjective: Feeling slightly better with increased regimen Denies dysuria, denies hematuria, denies any change in urinary habits, remains afebrile ROS: 10 point ROS as noted above, otherwise negative Physical exam GEN: Alert, oriented CV: Regular rate and rhythm, no edema Pulm: Nonlabored respirations on room air, clear to auscultation bilaterally ABD: Soft, nontender, nondistended Integumentary: No rashes / lesions MSK: no CVA tenderness Neuro: Normal speech, moves extremities Problem List Sickle cell crisis/pain h/o PE, on eliquis IV fluids decreased on 07/13, continue current rate @50 /hr Restarted home p.o. Dilaudid regimen, 8 mg 3 times daily on 07/11, increased to 4 times daily on 07/16 IV pain medication as needed for breakthrough Pain is slowly improving Hgb slowly downtrended, <7.0, s/p 1uPRBC on 07/16, hgb improved remains afebrile CT chest/abd/pelvis: no acute process, mod stool burden, circumferential bladder wall thickening; denies UTI symptoms started stool softeners. patient reports normal/regular BMs daily here Work-up otherwise negative for acute infection, no indication for antibiotics, remains afebrile Continue to monitor closely check UA, however patient states she is asymptomatic VTE: Home Eliquis Code: Full Dispo: home, ~2-3 days, pending further improvement in pain, hgb stable, improved cell counts Time Spent Managing Pts Care (In Minutes): 35
[2021-07-17] MEDS: BISACODYL E.C. 5 MG TAB PO SCH (08:48)
[2021-07-17] MEDS: ALPRAZOLAM 1 MG TABLET PO SCH ×2 (08:48→21:34)
[2021-07-17] MEDS: APIXABAN 2.5 MG TABLET PO SCH ×2 (08:48→21:34)
[2021-07-17] MEDS: NA CHLORIDE 0.9% 1,000 ML IV SCH (08:49)
[2021-07-17 16:02] LABS: Urine Appearance CLEAR (Clear); Urine Bilirubin NEGATIVE (Negative); Urine Blood 3+ (Negative); Urine Color YELLOW (Yellow); Urine Glucose NEGATIVE (Negative); Urine Protein NEGATIVE (Negative); Urine Urobilinogen 0.2 mg/dL (0.2-1.0); Urine pH 6.5 (5.0-7.0)
[2021-07-17 16:09] LABS: Urine Microscopic Reflex ORDER UMIC
[2021-07-17 16:38] LABS: Urine Bacteria <20 /HPF (<20); Urine Mucus 1+ /HPF (NONE SEEN)
[2021-07-18] MEDS: HYDROMORPHONE ORAL 4 MG TAB PO SCH ×4 (00:13→17:51)
[2021-07-18] MEDS: HYDROMORPHONE HCL 2 MG/ML inj IV PRN ×6 (01:47→22:47)
[2021-07-18] MEDS: DIPHENHYDRAMINE 50 MG/ML VIAL IV PRN ×6 (01:47→22:48)
[2021-07-18] MEDS: PROMETHAZINE INJ 25 MG/ML AMP IV PRN ×6 (01:47→22:50)
[2021-07-18] MEDS: NA CHLORIDE 0.9% 1,000 ML IV SCH ×3 (01:48→20:06)
[2021-07-18 05:29] LABS: Absolute Lymphocytes (CBC) 4.6 K/uL (0.7-4.9); Hematocrit 26.5 % (36.0-45.0); Lymphocytes % 25.7 % (15.3-44.8); MPV 7.9 fL (7.6-11.3); RBC Red Blood Cell Count 2.88 M/uL (3.86-4.86)
[2021-07-18 05:43] LABS: BUN Blood Urea Nitrogen 12 mg/dL (7-18); Bicarbonate 29 mmol/L (21-32); Glucose Level 93 mg/dL (74-106); Potassium 4.1 mmol/L (3.5-5.1); Sodium Level 139 mmol/L (136-145)
[2021-07-18] MEDS: APIXABAN 2.5 MG TABLET PO SCH ×2 (08:22→20:06)
[2021-07-18] MEDS: BISACODYL E.C. 5 MG TAB PO SCH (08:22)
--- NOTE | 2021-07-18 16:45 | P.PN ---
Subjective Date of Service: 07/18/21 Chief Complaint: Sickle Cell Crsis Patient report generalized bodily pain She has no fever. Physical Examination - Vital Signs Temperature: 98.1 F Blood Pressure: 112/57 Pulse: 88 Respirations: 14 Pulse Ox (%): 96 Assessment And Plan - Plan Physical Exam General: Alert, NAD HEENT: Mucous membr. moist/pink, Sclerae nonicteric Neck: Supple, No LAD, Without JVD. Respiratory: Clear to auscultation bilaterally, Normal air movement Cardiovascular: Regular rate/rhythm, Normal S1 S2 Gastrointestinal: Normal bowel sounds, No tenderness Musculoskeletal: Tenderness-shoulder joints. Integumentary: No rashes Neurological: Normal speech, Normal strength at 5/5 x4 extr, Normal tone, Normal affect Problem List Sickle cell crisis/pain h/o PE, on eliquis Plan: Continue supportive measures with IV hydration. Patient transition to oral pain regimen. She still has significant leukocytosis, elevated LDH and a high reticulocyte count. Continue supportive measures. UA with mild evidence of UTI. Monitor CBC to follow leukocytosis. We will give a shot of IV Rocephin empirically. Continue to monitor CBC and CMP Possible discharge in a.m. Physician Review: Patient Assessed, Agree with Above Assessment and Plan
[2021-07-18] MEDS: CEFTRIAXONE 1,000 MG in NA CHLORIDE 0.9% 50 ML IVPB SCH (17:06)
[2021-07-19] MEDS: DIPHENHYDRAMINE 50 MG/ML VIAL IV PRN ×3 (02:50→11:05)
[2021-07-19] MEDS: HYDROMORPHONE HCL 2 MG/ML inj IV PRN ×3 (02:50→11:06)
[2021-07-19] MEDS: PROMETHAZINE INJ 25 MG/ML AMP IV PRN ×3 (02:50→11:04)
[2021-07-19] MEDS: HYDROMORPHONE ORAL 4 MG TAB PO SCH ×2 (06:02)
[2021-07-19 06:10] LABS: Absolute Lymphocytes (CBC) 3.7 K/uL (0.7-4.9); Hematocrit 27.8 % (36.0-45.0); Lymphocytes % 22.2 % (15.3-44.8); MPV 8.1 fL (7.6-11.3); RBC Red Blood Cell Count 2.96 M/uL (3.86-4.86)
[2021-07-19 06:26] LABS: ALT/SGPT 145 U/L (12-78); AST/SGOT 94 U/L (15-37); Albumin 3.4 g/dL (3.4-5.0); Alkaline Phosphatase 128 U/L (45-117); BUN Blood Urea Nitrogen 12 mg/dL (7-18); Bicarbonate 29 mmol/L (21-32); Bilirubin Total 1.5 mg/dL (0.2-1.0); Glucose Level 86 mg/dL (74-106); Potassium 4.2 mmol/L (3.5-5.1); Sodium Level 139 mmol/L (136-145)
[2021-07-19] MEDS: APIXABAN 2.5 MG TABLET PO SCH (08:30)
[2021-07-19] MEDS: BISACODYL E.C. 5 MG TAB PO SCH (08:30)
[2021-07-19] MEDS: CEFTRIAXONE 1,000 MG in NA CHLORIDE 0.9% 50 ML IVPB SCH (08:30)
--- NOTE | 2021-07-19 08:50 | P.DS ---
Admission Date: 07/09/21 Discharge Date: 07/19/21 Disposition: ROUTINE DISCHARGE Discharge Condition: FAIR Reason for Admission: Sickle Cell Crsis Brief History of Present Illness: Patient is a 30-year-old black female with sickle cell and history of pulmonary embolism who presents to the ED with complaints of pain all over and shortness of breath. She reports this is her typical sickle cell pain and denies any new symptoms. Labs significant for WBC 14.9, hemoglobin 8.6 (around baseline), magnesium 1.7, retic 0.09, chest x-ray showed no acute infiltrate. Patient hospitalized for further management of sickle cell crisis. Hospital Course: Diagnosis Sickle cell crisis/pain History of pulmonary embolism Patient admitted to the medical floor and treated with supportive measures with IV hydration and IV opiate as needed for pain. Patient developed leukocytosis, blood cultures yielded no growth, initial UA did not suggest UTI, repeat UA was positive, followed by urine culture which yielded moderate GNR growth. Patient slowly improved with treatment. IV opioids was subsequently transitioned to oral. She received 2 doses of IV Rocephin for possible UTI. She also received 1 unit of PRBC transfusion for hemoglobin of 6.9. Posttransfusion hemoglobin was stable. She has clinically improved and deemed stable for discharge. Vital Signs/Physical Exam: Temp Pulse Resp BP Pulse Ox 97.1 F 79 17 99/57 L 97 07/19/21 08:00 07/19/21 08:00 07/19/21 08:00 07/19/21 08:00 07/19/21 08:00 General: Alert, In no apparent distress, Oriented x3 HEENT: Mucous membr. moist/pink Neck: JVD not distended Respiratory: Clear to auscultation bilaterally, Normal air movement Cardiovascular: No edema, Regular rate/rhythm, Normal S1 S2 Gastrointestinal: Soft and benign, Non-distended, No tenderness Musculoskeletal: No swelling Integumentary: No rashes Neurological: Normal strength at 5/5 x4 extr, Cranial nerves 3-12 intact Laboratory Data at Discharge: WBC 16.70 K/uL (4.3-10.9) H 07/19/21 05:40 Hgb 9.5 g/dL (12.0-15.0) L 07/19/21 05:40 Hct 27.8 % (36.0-45.0) L 07/19/21 05:40 Plt Count 532 K/uL (152-406) H 07/19/21 05:40 PT 26.1 SECONDS (9.5-12.5) H 07/09/21 01:15 INR 2.25 07/09/21 01:15 Sodium 139 mmol/L (136-145) 07/19/21 05:40 Potassium 4.2 mmol/L (3.5-5.1) 07/19/21 05:40 BUN 12 mg/dL (7-18) 07/19/21 05:40 Creatinine 0.47 mg/dL (0.55-1.3) L 07/19/21 05:40 Glucose 86 mg/dL (74-106) 07/19/21 05:40 Magnesium 1.9 mg/dL (1.8-2.4) 07/16/21 05:15 Total Bilirubin 1.5 mg/dL (0.2-1.0) H 07/19/21 05:40 AST 94 U/L (15-37) H 07/19/21 05:40 ALT 145 U/L (12-78) H 07/19/21 05:40 Alkaline Phosphatase 128 U/L (45-117) H 07/19/21 05:40 Home Medications: Folic Acid [Folic Acid*] 1 mg PO DAILY 08/01/12 Promethazine Tab [Phenergan*] 25 mg PO Q4H PRN #30 tab 11/15/19 ALPRAZolam [Xanax*] 1 mg PO BIDP PRN 09/30/20 Cholecalciferol (Vitamin D3) [Vitamin D 1000 Iu Tab*] 1,000 unit PO EVERY 7TH DAY 09/30/20 Apixaban [Eliquis *] 2.5 mg PO BID #60 tablet 12/21/20 Hydromorphone HCl [Dilaudid] 8 mg PO TID PRN 30 Days #60 tablet 12/21/20 clonazePAM [Klonopin*] 0.5 mg PO BID PRN #40 tab 07/05/21 Polyethyl Gly 3350 [Glycolax*] 17 gm PO DAILYPRN PRN #30 udbot 07/19/21 New Medications: Polyethyl Gly 3350 [Glycolax*] 17 gm PO DAILYPRN PRN #30 udbot PRN Reason: Constipation Diet: AHA Activity: Ad gina Time spent managing pt's care (in minutes): 36
[2021-07-19] MEDS: NA CHLORIDE 0.9% 1,000 ML IV SCH (10:32)
[2021-07-19] MEDS ORDERED: HEPARIN 500 UNIT/5 ML SYR IV PRN (11:03)
[2021-07-19 12:02] VITALS: O2SAT 95
[2021-07-19 12:37] VITALS: BP 105/69; TEMP 98.4
== END 2021-07-19 11:54 | disposition home or self-care (01) | DRG 812 ==
LOC: ER 00:50 → ERHOLD 02:38 → 2ND 03:34
PROVIDERS: ADMIT Internal Medicine; ATTEND Internal Medicine
PROC: 30233N1 Transfusion of Nonautologous Red Blood Cells into Peripheral Vein, Percutaneous Approach (ICD-10-PCS; principal; 2021-07-16)
DX: D57.00 Hb-SS disease with crisis, unspecified (principal); N39.0 Urinary tract infection, site not specified; Z86.711 Personal history of pulmonary embolism; Z79.01 Long term (current) use of anticoagulants; Z88.2 Allergy status to sulfonamides; Z20.822 Contact with and (suspected) exposure to COVID-19
CPT/HCPCS: 36415; 36430; 71045; 71260; 74177; 80048; 80053; 80076; 81003; 81015; 81025; 82947; 83615; 83735; 83880; 84484; 85025; 85044; 85610; 85660; 86140; 86850; 86900; 86901; 86902; 86922; 87086; 87088; 93005; 96374; 96375; 99285; J1170; J1200; J1642; J2550; J3475; J7030; J7050; P9016; Q9967; U0003

== ENCOUNTER 2021-09-02 16:18 | Emergency (ER) | payer OTHER ==
--- OUTSIDE RECORDS SUMMARY | 2021-09-02 16:22 | XMS REPORT | Continuity of Care Document ---
:[address] [facility] t Address [address] [place] [address] Support Name Relationship Address Phone DENI Unavailable [id number] [address] [facility] [phone] [place] [address] DENI Unavailable [phone] [facility] [phone] [address] [facility] [place] [address] JORDAN MO N [facility] [address] [place] [address] [place] [address] [address] [facility] [address] [phone] [place] [address] [place] [address] [address] [facility] [address] [place] [address] JORDAN Unavailable [phone] [facility] [phone] [place] [address] JORDAN Unavailable [address] [facility] [phone] [place] [address] [address] [place] [address] CLINTON DELEON MD E Admitting Provider [address] [facility] [address] [phone] [place] [address] JESSICA SIDDIQUI Primary Care Physician Donna [address] [place] [address] VIJAYA MULLEN MD A Emergency Provider [address] [place] [address] NAIMA MULLEN Attending Provider [address] [place] [address] JORDAN Next of Kin [address] [place] [address] IZZY MULLEN, E Emergency Provider [address] [facility] [address] [place] [address] PHYSICIAN Primary Care Physician Unavailable Unavailab chrissy GRISSOM MD, MD Emergency Provider [address] [place] [address] OTHER, NAME IN NOTES Primary Care Physician Unavailable Sylvie caity SHIN MD, MD Emergency Provider [address] [place] [address] ISABELLA MULLEN MD MORE Admitting Provider [address] [place] [address] FRANCIS Primary Care Physician [address] [facility] [place] [address] MD AMRITA A Emergency Provider [facility] [place] [address] MD ADRIANA Emergency Provider Unavailable Unavailable MD STACY S Emergency Provider [address] [place] [address] MD AAMN Emergency Provider [address] [phone] [place] [address] Care Team Providers Name Role Phone Shaikh PAZ, [facility] Primary Care Physician BRENDA Attending Clinician Unavailable [...] [facility] 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[facility] anemia anemia 00:[facility] Medical 00 Center 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[facility] crisis crisis 00:[facility]: Medical 00 Center Allergies, Adverse Reactions, Alerts Allergy Allergy Status Severity Reaction(s) Onset Inactive Treating Comm ents Source Name Type Date Date Clinician Ondanset Drug Active Nausea And [facility] Hcl Intolera Vomiting 2- [facility] - (Pf[facility] Medical 00 Center morphine DA Active SV 2009- [facility] 3[facility]11 [place] 00:00: d 00 Medical [place] TEGEDERM DA Active [facility] DRESSING 01-02 [place] [facility] Family History Family Member Diagnosis Comments Start Date Stop Date Source Natural mother Sickle cell trait [facility] Natural sister Unremarkable [facility] Natural brother Unremarkable [facility] Natural father Seizures [facility] Natural father Sickle cell trait [facility] Social History Social Habit Start Date Stop Date Quantity Comments Source Alcohol intake 2018-08-02 2018-08-02 Current [facility] - 00:00:00 00:00:00 non-drinker of Medical Ce nter alcohol (finding) Tobacco use and 2015-07-10 2015-07-10 Never used [facility] St kes - exposure 00:00:00 00:00:00 [facility] Center Sex Assigned At [birth year] [facility] [address] Ariana kes - 00:00:00 00:00:00 [facility] Center Smoking Status Start Date Stop Date Source Never smoker [facility] Medications Ordered Filled Start Stop [...] mouth once Medi rita 00 a week. [place] VITAMIN D2 Yes 1{capsu Q7D Take [address] 50,000 unit 2-25 le} capsule by Ariana kes - capsule 00:00: mouth once Medi rita 00 a week. [place] VITAMIN D2 Yes 1{capsu Q7D Take [address] 50,000 unit 2-25 le} capsule by Ariana kes - capsule 00:00: mouth once Medi rita 00 a week. [place] VITAMIN D2 Yes 1{capsu Q7D Take [address] 50,000 unit 2-25 le} capsule by Ariana kes - capsule 00:00: mouth once Medi rita 00 a week. [place] VITAMIN D2 Yes 1{capsu Q7D Take [address] 50,000 unit 2-25 le} capsule by Ariana kes - capsule 00:00: mouth once Medi rita 00 a week. [place] PROAIR HFA Yes 1{puff} Inhale 1 [facility] [...] tablet (eight) hours as needed nausea. prochlorper 2018- Yes 1{tbl} Take [address] [...] Medica l Center cervix (procedure) [code = 983021750] Future Scheduled 2012-09-[address] [facility] - Test 00:00:00 malignant neoplasm of Medica l Center cervix (procedure) [code = 810493182] Future Scheduled 2012-09-[address] [facility] - Test 00:00:00 malignant neoplasm of Medica [facility] Center cervix (procedure) [code = 727694463] Future Scheduled 2012-09-[address] [facility] - Test 00:00:00 malignant neoplasm of Medica [facility] Center cervix (procedure) [code = 808406091] Future Scheduled 2012-09-[address] [facility] - Test 00:00:00 malignant neoplasm of Medica [facility] Center cervix (procedure) [code = 557127483] Future Scheduled [address] [facility] - Test 00:00:00 (procedure) [code = [facility] 61235736] Future Scheduled [address] [facility] - Test 00:00:00 (procedure) [code = [facility] 41761334] Future Scheduled [address] [facility] - Test 00:00:00 (procedure) [code = [facility] 90599967] Future Scheduled [address] [facility] - Test 00:00:00 (procedure) [code = [facility] 13124477] Future Scheduled [address] - Test 00:00:00 (procedure) [code = [facility] 66206631] Future Scheduled 2010-09-05 DTAP/TDAP/TD VACCINES CH I [...] 2021-06-08 Inpatient E PERLITA GUTIERREZ MED 7526 [address] 04:10:00 13:24:00 [place] 2021-06-03 2021-06-03 Emergency E SUNNY, MHBL MHBL 7525 MHBL 02:02:00 14:43:00 RAHEL 2021-04-04 2021-04-04 Emergency E [...] Test Comments Results Result Comments Source SARS-COV2/RT-PCR ([facility]) 2019-11-14 17:47:00 Test Item Value Reference Range Interpretation Comme nts SARS-COV2/RT-PCR (test code = 9284740) Negative Not Detected, N egative SARS-COV-2 PERFORMING LAB (test code = 1983605) [facility] Negative results do not preclude SARS-CoV-2 infection [...] of the Act.Fact Sheet for Healthcare Pro viders:https://www.[employer]/Documents/Xpert%20Xpress%20SARS%20CoV-2/Fact%20Sh eets/3023802%20FDNU-OIH-9%20HEALTHCARE%20PROVIDERS%20FACT%20SHEET.pdfFact Sheet for Healthcare Patients:https://www.[employer]/Documents/Xpert%20Xpress%20SARS%20CoV-2/Fact%20Sheets/3023801%20SARS-COV -2%20PATIENT%20FACT%20SHEET.pdfPerforming Laboratory:[facility], [place] [address]EKQ W/PLT COUNT & AUTO DIFFERENTIAL 2018-08-10 08:25:00 [...] 3438) Received comment: User comments: Slide comments:RETICULOCYTE [id number] 08:06:00 Test Item Value Reference Range Interpretation Comments RETICULOCYTE COUNT PCT (BEAKER) (test 25.0 % 0.5-1.7 H code = 575) CBC W/PLT COUNT & AUTO [id number] 09:27:00 Test Item Value Reference Range Interpretation [...] 3438) Received comment: User comments: Slide comments:RETICULOCYTE [id number] 05:01:00 Test Item Value Reference Range Interpretation Comments RETICULOCYTE COUNT PCT (BEAKER) (test 21.6 % 0.5-1.7 H code = 575) CBC W/PLT COUNT & AUTO [id number] 15:17:00 Test Item Value Reference Range Interpretation [...] H (BEAKER) (test code = 413) RETICULOCYTE [id number] 08:44:00 Test Item Value Reference Range Interpretation Comments RETICULOCYTE COUNT PCT (BEAKER) (test 23.8 % 0.5-1.7 H code = 575) BLOOD [id number] 14:01:00 Test Item Value Reference Range Interpretation Comments CULTURE (BEAKER) (test No growth in 5 days code = 1095) BLOOD [id number] 12:01:00 Test Item Value Reference Range Interpretation Comments CULTURE (BEAKER) (test No growth in 5 days code = 1095) CBC W/PLT COUNT & AUTO [id number] 11:38:00 Test Item Value Reference Range Interpretation [...] 3438) Received comment: User comments: Slide comments:RETICULOCYTE [id number] 07:44:00 Test Item Value Reference Range Interpretation Comments RETICULOCYTE COUNT PCT (BEAKER) (test 27.0 % 0.5-1.7 H code = 575) RETICULOCYTE [id number] 07:19:00 Test Item Value Reference Range Interpretation Comments RETICULOCYTE COUNT PCT (BEAKER) (test 22.7 % 0.5-1.7 H code = 575) CBC W/PLT COUNT & AUTO [id number] 12:07:00 Test Item Value Reference Range Interpretation [...] 3438) Received comment: User comments: Slide comments:RETICULOCYTE [id number] 06:14:00 Test Item Value Reference Range Interpretation Comments RETICULOCYTE COUNT PCT (BEAKER) (test 21.9 % 0.5-1.7 H code = 575) [id number] 06:02:00 Test Item Value Reference Range Interpretation Comments PHOSPHORUS (BEAKER) (test code = 3.8 mg/dL 2.3-4.7 604) [id number] 06:02:00 Test Item Value Reference Range Interpretation Comments MAGNESIUM (BEAKER) (test code = 1.8 mg/dL 1.6-2.6 627) BASIC METABOLIC [id number] 06:02:00 Test Item Value Reference Range Interpretation [...] Specimen moderately ictericCBC W/PLT COUNT & AUTO [id number] 09:09:00 Test Item Value Reference Range Interpretation [...] = 3438) Received comment: User comments: Slide comments:[id number] 04:11:00 Test Item Value Reference Range Interpretation Comments PHOSPHORUS (BEAKER) (test code = 3.3 mg/dL 2.3-4.7 604) [id number] 04:11:00 Test Item Value Reference Range Interpretation Comments MAGNESIUM (BEAKER) (test code = 1.6 mg/dL 1.6-2.6 627) BASIC METABOLIC [id number] 04:11:00 Test Item Value Reference Range Interpretation [...] FOR DIALYSIS PATIEN TS. Specimen slightly ictericRETICULOCYTE [id number] 03:54:00 Test Item Value Reference Range Interpretation Comments RETICULOCYTE COUNT PCT (BEAKER) (test 20.4 % 0.5-1.7 H code = 575) CBC W/PLT COUNT & AUTO [id number] 18:30:00 Test Item Value Reference Range Interpretation [...] = 413) CBC W/PLT COUNT & AUTO [id number] 10:51:00 Test Item Value Reference Range Interpretation [...] K/uL 0.00-0.00 H (CELLAVISION)(BEAKER) (test code = 6758) TOTAL COUNTED (BEAKER) (test code 100 = [...] 3438) Received comment: User comments: Slide comments:RETICULOCYTE [id number] 10:08:00 Test Item Value Reference Range Interpretation Comments RETICULOCYTE COUNT PCT (BEAKER) (test 14.4 % 0.5-1.7 H code = 575) CBC W/PLT COUNT & AUTO [id number] 09:30:00 Test Item Value Reference Range Interpretation [...] = 3438) Received comment: User comments: Slide comments:[id number] 03:32:00 Test Item Value Reference Range Interpretation Comments PHOSPHORUS (BEAKER) (test code = 3.5 mg/dL 2.3-4.7 604) [id number] 03:32:00 Test Item Value Reference Range Interpretation Comments MAGNESIUM (BEAKER) (test code = 1.8 mg/dL 1.6-2.6 627) BASIC METABOLIC [id number] 03:32:00 Test Item Value Reference Range Interpretation [...] ictericCT, CHEST WITH IV CONTRAST- PE TEST [id number] 14:01:00FINAL REPORT CT scan of the chest. [...] MDReport Verified Date/Time: 08/02/2018 14:01:29 Reading Location: [address] Consult Reading Room URINALYSIS W/ REFLEX URINE [id number] 11:27:00 Test Item Value Reference Range Interpretation [...] 516) SOURCE(BEAKER) (test code = 2795) SCREEN, [id number] 11:15:00 Test Item Value Reference Range Interpretation Comments TEST URINE (BEAKER) (test Negative code = 583) RETICULOCYTE [id number] 04:43:00 Test Item Value Reference Range Interpretation Comments RETICULOCYTE COUNT PCT (BEAKER) (test 13.2 % 0.5-1.7 H code = 575) RAD, CHEST, 2 [id number] 03:54:00Reason for exam:->SICKLE CELL PAIN CRISISIs the [...] [place] MDReport Verified Date/Time: 08/02/2018 03:54:52Reading Location: [address] Reading Room CBC W/PLT COUNT & [...] (BEAKER) (test code = 417) COMPREHENSIVE METABOLIC [id number] 02:42:00 Test Item Value Reference Range Interpretation [...]
[2021-09-02] MEDS ORDERED: PROMETHAZINE INJ 25 MG/ML AMP ONE ×2 (17:52→21:14)
[2021-09-02] MEDS ORDERED: HYDROMORPHONE HCL 1 MG/ML INJ ONE ×3 (17:52→21:14)
[2021-09-02] MEDS ORDERED: NA CHLORIDE 0.9% 1,000 ML ONE (17:53)
[2021-09-02] MEDS ORDERED: DIPHENHYDRAMINE 50 MG/ML VIAL ONE ×2 (18:38→21:14)
[2021-09-02 18:58] LABS: Hematocrit 23.9 % (36.0-45.0); Lymphocytes % 27.6 % (15.3-44.8); MPV 7.8 fL (7.6-11.3); RBC Red Blood Cell Count 2.48 M/uL (3.86-4.86)
[2021-09-02 19:16] LABS: Bicarbonate 26 mmol/L (21-32); Potassium 4.1 mmol/L (3.5-5.1); Sodium Level 141 mmol/L (136-145)
[2021-09-02 19:17] LABS: ALT/SGPT 33 U/L (12-78); AST/SGOT 24 U/L (15-37); Albumin 3.6 g/dL (3.4-5.0); Alkaline Phosphatase 85 U/L (45-117); BUN Blood Urea Nitrogen 11 mg/dL (7-18); Bilirubin Direct 0.4 mg/dL (0-0.2); Bilirubin Total 3.3 mg/dL (0.2-1.0); Glucose Level 97 mg/dL (74-106); Protein, Total 6.7 g/dL (6.4-8.2)
[2021-09-02 19:31] LABS: Troponin High Sensitivity < 3.0 pg/mL (<58.9)
--- NOTE | 2021-09-02 21:03 | EDPHYS ---
Physician Documentation [facility] Name: Gume Ortega Age: 30 yrs Sex: Female : 1990 Arrival Date: 09/02/2021 Time: 16:20 Bed 13 Private MD: ED Physician Apolinar Castro HPI: 09/02 17:45 This 30 yrs old Black Female presents to ER via Wheelchair with complaints of Sickle ma2 Cell Crisis. 17:45 Patient has generalized body aches for 2 days describes as severe aches constant, both ma2 lower extremities, and both arms, she described as similar to her prior sickle cell crisis, denies chest pain cough or shortness of breath, denies fever. Denies joint pain. 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 - Social history:: Smoking status: Patient denies any tobacco usage or history of. Patient/guardian denies using alcohol, street drugs, The patient lives with family. - Family history:: not pertinent. ROS: 17:45 Constitutional: Negative for fever, chills, and weight loss. ma2 17:45 All other systems are negative. Exam: 17:45 Constitutional: This is a well developed, well nourished patient who is awake, alert, ma2 and in no acute distress. Head/Face: Normocephalic, atraumatic. Eyes: Pupils equal round and reactive to light, extra-ocular motions intact. Lids and lashes normal. Conjunctiva and sclera are non-icteric and not injected. Cornea within normal limits. Periorbital areas with no swelling, redness, or edema. ENT: Nares patent. No nasal discharge, no septal abnormalities noted. Tympanic membranes are normal and external auditory canals are clear. Oropharynx with no redness, swelling, or masses, exudates, or evidence of obstruction, uvula midline. Mucous membranes moist. Neck: Trachea midline, no thyromegaly or masses palpated, and no cervical lymphadenopathy. Supple, full range of motion without nuchal rigidity, or vertebral point tenderness. No Meningismus. Chest/axilla: Normal chest wall appearance and motion. Nontender with no deformity. No lesions are appreciated. Cardiovascular: Regular rate and rhythm with a normal S1 and S2. No gallops, murmurs, or rubs. Normal PMI, no JVD. No pulse deficits. Respiratory: Lungs have equal breath sounds bilaterally, clear to auscultation and percussion. No rales, rhonchi or wheezes noted. No increased work of breathing, no retractions or nasal flaring. Abdomen/GI: Soft, non-tender, with normal bowel sounds. No distension or tympany. No guarding or rebound. No evidence of tenderness throughout. Back: No spinal tenderness. No costovertebral tenderness. Full range of motion. Skin: Warm, dry with normal turgor. Normal color with no rashes, no lesions, and no evidence of cellulitis. MS/ Extremity: Pulses equal, no cyanosis. Neurovascular intact. Full, normal range of motion. Neuro: Awake and alert, GCS 15, oriented to person, place, time, and situation. Cranial nerves II-XII grossly intact. Motor strength 5/5 in all extremities. Sensory grossly intact. Cerebellar exam normal. Normal gait. Psych: Awake, alert, with orientation to person, place and time. Behavior, mood, and affect are within normal limits. Vital Signs: 16:44 BP 116 / 61; Pulse 74; Resp 16; Temp 99.3(TE); Pulse Ox 100% ; Weight 73.94 kg; Height vg1 5 ft. 2 in. (157.48 cm); Pain 10/10; 18:30 BP 112 / 68; Pulse 72; Resp 18; Pulse Ox 97% on R/A; ph 20:30 BP 100 / 53; Pulse 54; Resp 17; Pulse Ox 100% on R/A; ph 16:44 Body Mass Index 29.81 (73.94 kg, 157.48 cm) vg1 MDM: 17:45 Differential Diagnosis Sickle cell crisis versus anemia versus body aches, will check ma2 reticulocyte count as well. Data reviewed: vital signs, nurses notes. Counseling: I had a detailed discussion with the patient and/or guardian regarding: the historical points, exam findings, and any diagnostic results supporting the discharge/admit diagnosis, the presence of at least one elevated blood pressure reading (>120/80) during this emergency department visit, the need for further work-up and treatment in the hospital. Response to treatment: the patient's symptoms have markedly improved after treatment. 19:13 Patient medically screened. [facility] 09/02 16:50 Order name: Basic Metabolic Panel; Complete Time: 19:34 [facility] 09/02 16:50 Order name: CBC with Diff; Complete Time: 19:25 [facility] 09/02 16:50 Order name: LFT's; Complete Time: 19:34 [facility] 09/02 16:50 Order name: Troponin HS; Complete Time: 19:34 [facility] 09/02 16:50 Order name: Sed Rate; Complete Time: 19:25 [facility] 09/02 17:00 Order name: COVID-19 SARS RT PCR (Document "Date of Onset" if Symptomatic); Complete ss Time: 20:07 Administered Medications: 17:46 Not Given (Other Intervention Used): morphine 4 mg IVP once; RASS on ADMIN: Combtv4, ph Very Agttd3, Agttd2, Rstlss1, AlertClm0, Drwsy-1, Lt Sdtn-2, Mod Sdtn-3, Dp Sdtn-4, UnArsble-5 17:47 Not Given (Other Intervention Used): Zofran (Ondansetron) 4 mg IVP once; over 2 minutes ph 18:05 Drug: Phenergan (promethazine) 25 mg Route: IVP; Site: Port-a-cath; ph 19:23 Follow up: Response: No adverse reaction ph 18:07 Drug: Dilaudid (HYDROmorphone) 1 mg Route: IVP; Site: Port-a-cath; ph 19:23 Follow up: Response: No adverse reaction ph 18:45 Drug: NS 0.9% 1000 ml Route: IV; Rate: 1 bolus; Site: Port-a-cath; ph 21:27 Follow up: Response: No adverse reaction; IV Status: Completed infusion; IV Intake: ph 1000ml 18:45 Drug: Benadryl (diphenhydrAMINE) 50 mg Route: IVP; Site: Port-a-cath; ph 19:23 Follow up: Response: No adverse reaction ph 19:40 Drug: Dilaudid (HYDROmorphone) 1 mg Route: IVP; Site: Port-a-cath; ph 21:27 Follow up: Response: No adverse reaction ph 21:20 Drug: Dilaudid (HYDROmorphone) 1 mg Route: IVP; Site: Port-a-cath; ph 21:27 Follow up: Response: No adverse reaction ph 21:20 Drug: diphenhydrAMINE 50 mg Route: IVP; Site: Port-a-cath; ph 21:27 Follow up: Response: No adverse reaction ph 21:20 Drug: Promethazine 12.5 mg Route: IVP; Site: Port-a-cath; ph 21:27 Follow up: Response: No adverse reaction ph Disposition Summary: 09/02/21 21:02 Discharge Ordered Location: Home [facility] Condition: Stable [facility] Diagnosis - Other sickle-cell disorders with crisis [facility] Followup: ma2 - With: Private Physician - When: Tomorrow - Reason: Wound Recheck, If symptoms return Discharge Instructions: - Discharge Summary Sheet ma2 - Sickle Cell Anemia, Adult, [id number] [facility] Forms: - Medication Reconciliation Form [facility] - Thank You Letter [facility] - Antibiotic Education [facility] - Prescription Opioid Use [facility] Prescriptions: - Diclofenac Sodium 75 mg Oral Tablet Sustained Release - take 1 tablet by ORAL route 2 times per day; 30 tablet; Refills: 0, Product ma2 Selection Permitted Signatures: Dispatcher [employer] Domenic Elena PA PA jmm Hall, Patricia, RN RN ph Apolinar Castro MD MD ma2 Yi Cardozo RN RN vg1
--- NOTE | 2021-09-02 21:03 | ER ---
Nurse's Notes [facility] Name: Gume Ortega Age: 30 yrs Sex: Female : 1990 Arrival Date: 09/02/2021 Time: 16:20 Bed 13 Private MD: Diagnosis: Other sickle-cell disorders with crisis Presentation: 09/02 16:44 Chief complaint: Patient states: all over body pain; states "i have sickle cell and I vg1 know its acting up". Coronavirus screen: Vaccine status: Patient reports receiving the 1st dose of the Covid vaccine. Client denies travel out of the [place] in the last 14 days. Ebola Screen: Patient denies exposure to infectious person. Patient denies travel to an Ebola-affected area in the 21 days before illness onset. Initial Sepsis Screen: Does the patient meet any 2 criteria? No. Patient's initial sepsis screen is negative. Does the patient have a suspected source of infection? No. Patient's initial sepsis screen is negative. Risk Assessment: Do you want to hurt yourself or someone else? Patient reports no desire to harm self or others. Onset of symptoms was September 02, 2021. 16:44 Method Of Arrival: Wheelchair vg1 16:44 Acuity: MARILUZ 3 vg1 Triage Assessment: 16:45 General: Appears uncomfortable, Behavior is cooperative. Pain: Complains of pain in vg1 generalized body Pain currently is 10 out of 10 on a pain scale. 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 - Social history:: Smoking status: Patient denies any tobacco usage or history of. Patient/guardian denies using alcohol, street drugs, The patient lives with family. - Family history:: not pertinent. Screenin:04 Abuse screen: Denies threats or abuse. Denies injuries from another. Nutritional ph screening: No deficits noted. Tuberculosis screening: No symptoms or risk factors identified. Fall Risk None identified. Assessment: 18:25 General: Appears in no apparent distress. comfortable, Behavior is calm, cooperative, ph appropriate for age, Denies fever. Pain: Complains of pain in "all over". Neuro: Level of Consciousness is awake, alert, obeys commands, Oriented to person, place, time, situation. Cardiovascular: Capillary refill < 3 seconds in bilateral fingers Patient's skin is warm and dry. Respiratory: Airway is patent Respiratory effort is even, unlabored. GI: No signs and/or symptoms were reported involving the gastrointestinal system. Derm: Skin is intact, Skin is pink, warm \\T\\ dry. Musculoskeletal: Circulation, motion, and sensation intact. Range of motion: intact in all extremities. 19:44 Reassessment: Patient and/or family updated on plan of care and expected duration. Pain ph level reassessed. Patient is alert, oriented x 3, equal unlabored respirations, skin warm/dry/pink. C/o pain all over 10/10, ERP notified, medicated as oredered. 21:30 Reassessment: Patient and/or family updated on plan of care and expected duration. Pain ph level reassessed. Patient is alert, oriented x 3, equal unlabored respirations, skin warm/dry/pink. Patient states feeling better. Vital Signs: 16:44 BP 116 / 61; Pulse 74; Resp 16; Temp 99.3(TE); Pulse Ox 100% ; Weight 73.94 kg; Height vg1 5 ft. 2 in. (157.48 cm); Pain 10/10; 18:30 BP 112 / 68; Pulse 72; Resp 18; Pulse Ox 97% on R/A; ph 20:30 BP 100 / 53; Pulse 54; Resp 17; Pulse Ox 100% on R/A; ph 16:44 Body Mass Index 29.81 (73.94 kg, 157.48 cm) vg1 ED Course: 16:20 Patient arrived in ED. rg4 16:45 Triage completed. vg1 16:45 Arm band placed on Patient placed. vg1 16:49 Apolinar Castro MD is Attending Physician. ma2 17:03 Lexis Guerra RN is Primary Nurse. ph 17:05 Patient has correct armband on for positive identification. Placed in gown. Bed in low ph position. Call light in reach. Side rails up X 1. Pulse ox on. NIBP on. Door closed. Noise minimized. Warm blanket given. 18:26 Accessed Port-a-Cath. using accessed w/ # 20 Peters needle, ,sterile technique, Good ph blood return. Flushes easily. 19:03 Domenic Lacey PA is PHCP. [facility] 19:29 Primary Nurse role handed off by Lexis Guerra RN mw2 20:44 Lexis Guerra RN is Primary Nurse. ph 21:28 No provider procedures requiring assistance completed. Port-a-cath DC 'd, intact, no ph redness, swelling, or drainage, Band-Aid applied. Administered Medications: 17:46 Not Given (Other Intervention Used): morphine 4 mg IVP once; RASS on ADMIN: Combtv4, ph Very Agttd3, Agttd2, Rstlss1, AlertClm0, Drwsy-1, Lt Sdtn-2, Mod Sdtn-3, Dp Sdtn-4, UnArsble-5 17:47 Not Given (Other Intervention Used): Zofran (Ondansetron) 4 mg IVP once; over 2 minutes ph 18:05 Drug: Phenergan (promethazine) 25 mg Route: IVP; Site: Port-a-cath; ph 19:23 Follow up: Response: No adverse reaction ph 18:07 Drug: Dilaudid (HYDROmorphone) 1 mg Route: IVP; Site: Port-a-cath; ph 19:23 Follow up: Response: No adverse reaction ph 18:45 Drug: NS 0.9% 1000 ml Route: IV; Rate: 1 bolus; Site: Port-a-cath; ph 21:27 Follow up: Response: No adverse reaction; IV Status: Completed infusion; IV Intake: ph 1000ml 18:45 Drug: Benadryl (diphenhydrAMINE) 50 mg Route: IVP; Site: Port-a-cath; ph 19:23 Follow up: Response: No adverse reaction ph 19:40 Drug: Dilaudid (HYDROmorphone) 1 mg Route: IVP; Site: Port-a-cath; ph 21:27 Follow up: Response: No adverse reaction ph 21:20 Drug: Dilaudid (HYDROmorphone) 1 mg Route: IVP; Site: Port-a-cath; ph 21:27 Follow up: Response: No adverse reaction ph 21:20 Drug: diphenhydrAMINE 50 mg Route: IVP; Site: Port-a-cath; ph 21:27 Follow up: Response: No adverse reaction ph 21:20 Drug: Promethazine 12.5 mg Route: IVP; Site: Port-a-cath; ph 21:27 Follow up: Response: No adverse reaction ph Intake: 21:27 IV: 1000ml; Total: 1000ml. ph Outcome: 21:02 Discharge ordered by . hima 21:31 Discharged to home ambulatory, with significant other. ph 21:31 Condition: stable 21:31 Discharge instructions given to patient, family, Instructed on discharge instructions, follow up and referral plans. Demonstrated understanding of instructions, follow-up care. 21:31 Patient left the ED. ph Signatures: Domenic Lacey PA PA jmm Hall, Patricia RN RN ph Heide Cardozo rg4 Apolinar Castro MD MD ma2 Marisol Kendall 2 Yi Cardozo RN RN vg1
[2021-09-02] MEDS ORDERED: LIDOCAINE 1% MPF 2 ML AMPULE ONE (21:15)
[2021-09-02] MEDS ORDERED: HEPARIN 500 UNIT/5 ML SYR IV ONE (21:29)
[2021-09-02 21:36] VITALS: TEMP 99.3
[2021-09-02 21:38] VITALS: BP 100/53; O2SAT 100
== END 2021-09-02 21:31 | disposition home or self-care (01) ==
LOC: ER 16:18
DX: D57.819 Other sickle-cell disorders with crisis, unspecified (principal); F41.9 Anxiety disorder, unspecified; Z79.01 Long term (current) use of anticoagulants; Z88.2 Allergy status to sulfonamides; Z88.5 Allergy status to narcotic agent; Z88.8 Allergy status to other drugs, medicaments and biological substances; Z20.822 Contact with and (suspected) exposure to COVID-19
CPT/HCPCS: 96361; 85025; 80048; 36415; 80076; 85652; 84484; 96375; 96374; 99284; U0003; J2550 ×2; J1200 ×2; J1170 ×3; J1642; J7030

== ENCOUNTER 2021-09-15 01:59 | Inpatient (IN) | payer OTHER ==
--- OUTSIDE RECORDS SUMMARY | 2021-09-15 02:04 | XMS REPORT | Continuity of Care Document ---
:1990 Author Organization [facility] t Address [address] [place] [address] Support Name Relationship Address Phone DENI Unavailable [address] [facility] [phone] [address] [facility] [place] [address] DENI Unavailable [address] [facility] [phone] [address] [facility] [place] [address] JORDAN MO N [facility] [address] [place] [address] [place] [address] [phone] [place] [address] [place] [address] [facility] [address] [place] [address] JORDAN Unavailable [address] [facility] [phone] [place] [address] JORDAN Unavailable [phone] [facility] [phone] [place] [address] [address] [place] [address] CLINTON DELEON MD E Admitting Provider [address] [facility] [address] [place] [address] JESSICA SIDDIQUI Primary Care Physician [address] [facility] [address] [place] [address] VIJAYA MULLEN MD A Emergency Provider [address] [facility] [place] [address] NAIMA MULLEN Attending Provider [address] [place] [address] JORDAN Next of Kin [address] [place] [address] IZZY MULLEN, E Emergency Provider [address] [facility] [address] [place] [address] PHYSICIAN Primary Care Physician Unavailable Unavailab chrissy GRISSOM MD, MD Emergency Provider [address] [place] [address] OTHER, NAME IN NOTES Primary Care Physician Unavailable Sylvie franciscoilacharity SHIN MD, MD Emergency Provider [address] [place] [address] ISABELLA MULLEN MD MORE Admitting Provider [address] [place] [address] FRANCIS Primary Care Physician [address] [facility] [place] [address] MD AMRITA A Emergency Provider [facility] [address] MD ADRIANA Emergency Provider Unavailable Unavailable MD STACY S Emergency Provider [address] [place] [address] MD AMAN Emergency Provider [address] [place] [address] Care Team Providers Name Role Phone Shaikh PAZ, [facility] Primary Care Physician BRENDA Attending Clinician [...] [facility] Pneumonia [...] [facility] 3[facility]11 [place] 00:00: d 00 Medical [place] TEGEDERM DA Active [place] [facility]02 [place] 00:[facility]: d 00 [facility] Center Family History Family Member Diagnosis Comments Start Date Stop Date Source Natural mother Sickle cell trait [facility] Natural sister Unremarkable [facility] Natural brother Unremarkable [facility] Natural father Seizures [facility] Natural father Sickle cell trait [facility] Social History Social Habit Start Date Stop Date Quantity Comments Source Alcohol intake 2018-08-02 2018-08-[address] [facility] [address] [facility] - 00:00:00 00:00:00 non-drinker of Medical nter alcohol (finding) Tobacco use and 2015-07-10 2015-07-10 Never used [facility] - exposure 00:00:00 00:00:00 [facility] Center Sex Assigned At 1990 [address] [facility] [address] Ariana kes - 00:00:00 00:00:00 [facility] Center Smoking Status Start Date Stop Date Source Never smoker [facility] Medications Ordered Filled Start Stop [...] mouth once Medi rita 00 a week. [place] VITAMIN D2 Yes 1{capsu Q7D Take [address] [facility],000 unit 2-25 le} capsule by Ariana kes - capsule 00:00: mouth once Medi rita 00 a week. [place] VITAMIN D2 Yes 1{capsu Q7D Take [address] [facility],000 unit 2-25 le} capsule by Ariana kes - capsule 00:00: mouth once Medi riat 00 a week. [place] VITAMIN D2 Yes 1{capsu Q7D Take [address] [facility],000 unit 2-25 le} capsule by Ariana kes - capsule 00:00: mouth once Medi rita 00 a week. [place] VITAMIN D2 Yes 1{capsu Q7D Take 1 [...] 6 (six) hours as needed. PROAIR HFA 2019-0 Yes 1{puff} Inhale 1 [...] tablet (eight) hours as needed nausea. prochlorper 2018-0 Yes 1{tbl} Take 1 [facility] [...] Medica l Center cervix (procedure) [code = 754513255] Future Scheduled 2012-09-[address] [facility] - Test 00:00:00 malignant neoplasm of Medica l Center cervix (procedure) [code = 582422377] Future Scheduled 2012-09-[address] [facility] - Test 00:00:00 malignant neoplasm of Medica l Center cervix (procedure) [code = 960403322] Future Scheduled 2012-09-[address] [facility] - Test 00:00:00 malignant neoplasm of Medica [facility] Center cervix (procedure) [code = 922506397] Future Scheduled 2012-09-[address] [facility] - Test 00:00:00 malignant neoplasm of Medica l Center cervix (procedure) [code = 267785297] Future Scheduled [address] [facility] - Test 00:00:00 (procedure) [code = [facility] 26460214] Future Scheduled [address] [facility] - Test 00:00:00 (procedure) [code = [facility] 74558384] Future Scheduled [address] [facility] - Test 00:00:00 (procedure) [code = [facility] 46905136] Future Scheduled [address] [facility] - Test 00:00:00 (procedure) [code = [facility] 68936228] Future Scheduled [address] [facility] - Test 00:00:00 (procedure) [code = [facility] 07024966] Future Scheduled 2010-09-05 DTAP/TDAP/TD VACCINES CH I [...] Comments Results Result Comments Source SARS-COV2/RT-PCR ([facility]) 2019-11-14 17:47:00 Test Item Value Reference Range Interpretation Comme nts SARS-COV2/RT-PCR (test code = 3856711) Negative Not Detected, N egative SARS-COV-2 PERFORMING LAB (test code = 9225269) [facility] Negative results do not preclude SARS-CoV-2 [...] of the Act.Fact Sheet for Healthcare Pro viders:https://www.PutPlace/Documents/Xpert%20Xpress%20SARS%20CoV-2/Fact%20Sh eets/3023802%38THDH-LRV-1%20HEALTHCARE%20PROVIDERS%20FACT%20SHEET.pdfFact Sheet for Healthcare Patients:https://www.[employer]/Documents/Xpert%20Xpress%20SARS%20CoV-2/Fact%20Sheets/3023801%20SARS-COV -2%20PATIENT%20FACT%20SHEET.pdfPerforming Laboratory:[facility], [place] [address]PFC W/PLT COUNT & AUTO DIFFERENTIAL 2018-08-10 08:25:00 [...] 3438) Received comment: User comments: Slide comments:RETICULOCYTE [id number] 08:06:00 Test Item Value Reference Range Interpretation Comments RETICULOCYTE COUNT PCT (BEAKER) (test 25.0 % 0.5-1.7 H code = 575) CBC W/PLT COUNT & AUTO [id number] 09:27:00 Test Item Value Reference Range Interpretation [...] 3438) Received comment: User comments: Slide comments:RETICULOCYTE [id number] 05:01:00 Test Item Value Reference Range Interpretation Comments RETICULOCYTE COUNT PCT (BEAKER) (test 21.6 % 0.5-1.7 H code = 575) CBC W/PLT COUNT & AUTO [id number] 15:17:00 Test Item Value Reference Range Interpretation [...] H (BEAKER) (test code = 413) RETICULOCYTE [id number] 08:44:00 Test Item Value Reference Range Interpretation Comments RETICULOCYTE COUNT PCT (BEAKER) (test 23.8 % 0.5-1.7 H code = 575) BLOOD [id number] 14:01:00 Test Item Value Reference Range Interpretation Comments CULTURE (BEAKER) (test No growth in 5 days code = 1095) BLOOD [id number] 12:01:00 Test Item Value Reference Range Interpretation Comments CULTURE (BEAKER) (test No growth in 5 days code = 1095) CBC W/PLT COUNT & AUTO [id number] 11:38:00 Test Item Value Reference Range Interpretation [...] 3438) Received comment: User comments: Slide comments:RETICULOCYTE [id number] 07:44:00 Test Item Value Reference Range Interpretation Comments RETICULOCYTE COUNT PCT (BEAKER) (test 27.0 % 0.5-1.7 H code = 575) RETICULOCYTE [id number] 07:19:00 Test Item Value Reference Range Interpretation Comments RETICULOCYTE COUNT PCT (BEAKER) (test 22.7 % 0.5-1.7 H code = 575) CBC W/PLT COUNT & AUTO [id number] 12:07:00 Test Item Value Reference Range Interpretation [...] 3438) Received comment: User comments: Slide comments:RETICULOCYTE [id number] 06:14:00 Test Item Value Reference Range Interpretation Comments RETICULOCYTE COUNT PCT (BEAKER) (test 21.9 % 0.5-1.7 H code = 575) [id number] 06:02:00 Test Item Value Reference Range Interpretation Comments PHOSPHORUS (BEAKER) (test code = 3.8 mg/dL 2.3-4.7 604) [id number] 06:02:00 Test Item Value Reference Range Interpretation Comments MAGNESIUM (BEAKER) (test code = 1.8 mg/dL 1.6-2.6 627) BASIC METABOLIC [id number] 06:02:00 Test Item Value Reference Range Interpretation [...] Specimen moderately ictericCBC W/PLT COUNT & AUTO [id number] 09:09:00 Test Item Value Reference Range Interpretation [...] = 3438) Received comment: User comments: Slide comments:[id number] 04:11:00 Test Item Value Reference Range Interpretation Comments PHOSPHORUS (BEAKER) (test code = 3.3 mg/dL 2.3-4.7 604) [id number] 04:11:00 Test Item Value Reference Range Interpretation Comments MAGNESIUM (BEAKER) (test code = 1.6 mg/dL 1.6-2.6 627) BASIC METABOLIC [id number] 04:11:00 Test Item Value Reference Range Interpretation [...] FOR DIALYSIS PATIEN TS. Specimen slightly ictericRETICULOCYTE [id number] 03:54:00 Test Item Value Reference Range Interpretation Comments RETICULOCYTE COUNT PCT (BEAKER) (test 20.4 % 0.5-1.7 H code = 575) CBC W/PLT COUNT & AUTO [id number] 18:30:00 Test Item Value Reference Range Interpretation [...] = 413) CBC W/PLT COUNT & AUTO [id number] 10:51:00 Test Item Value Reference Range Interpretation [...] K/uL 0.00-0.00 H (CELLAVISION)(BEAKER) (test code = 9718) TOTAL COUNTED (BEAKER) (test code 100 = [...] 3438) Received comment: User comments: Slide comments:RETICULOCYTE [id number] 10:08:00 Test Item Value Reference Range Interpretation Comments RETICULOCYTE COUNT PCT (BEAKER) (test 14.4 % 0.5-1.7 H code = 575) CBC W/PLT COUNT & AUTO [id number] 09:30:00 Test Item Value Reference Range Interpretation [...] = 3438) Received comment: User comments: Slide comments:[id number] 03:32:00 Test Item Value Reference Range Interpretation Comments PHOSPHORUS (BEAKER) (test code = 3.5 mg/dL 2.3-4.7 604) [id number] 03:32:00 Test Item Value Reference Range Interpretation Comments MAGNESIUM (BEAKER) (test code = 1.8 mg/dL 1.6-2.6 627) BASIC METABOLIC [id number] 03:32:00 Test Item Value Reference Range Interpretation [...] ictericCT, CHEST WITH IV CONTRAST- PE TEST [id number] 14:01:00FINAL REPORT CT scan of the chest. [...] MDReport Verified Date/Time: 08/02/2018 14:01:29 Reading Location: [address] Reading Room URINALYSIS W/ REFLEX URINE [id number] 11:27:00 Test Item Value Reference Range Interpretation [...] 516) SOURCE(BEAKER) (test code = 2795) SCREEN, [id number] 11:15:00 Test Item Value Reference Range Interpretation Comments TEST URINE (BEAKER) (test Negative code = 583) RETICULOCYTE [id number] 04:43:00 Test Item Value Reference Range Interpretation Comments RETICULOCYTE COUNT PCT (BEAKER) (test 13.2 % 0.5-1.7 H code = 575) RAD, CHEST, 2 [id number] 03:54:00Reason for exam:->SICKLE CELL PAIN CRISISIs the [...] [place] MDReport Verified Date/Time: 08/02/2018 03:54:52Reading Location: [address] Reading Room CBC W/PLT COUNT & [...] (BEAKER) (test code = 417) COMPREHENSIVE METABOLIC [id number] 02:42:00 Test Item Value Reference Range Interpretation [...]
[2021-09-15] MEDS ORDERED: PROMETHAZINE INJ 25 MG/ML AMP ONE (02:27)
[2021-09-15] MEDS ORDERED: HYDROMORPHONE HCL 2 MG/ML inj ONE ×2 (02:28→03:49)
[2021-09-15] MEDS ORDERED: NA CHLORIDE 0.9% 1,000 ML ONE ×3 (02:28→10:50)
[2021-09-15] MEDS ORDERED: FAMOTIDINE 20 MG/2 ML VIAL IV ONE (02:28)
[2021-09-15] MEDS ORDERED: NA CHLORIDE 0.9% 100 ML IV ONE ×2 (02:28→03:49)
[2021-09-15] MEDS ORDERED: NA CHLORIDE 0.9% 50 ML ONE (02:28)
[2021-09-15 02:42] LABS: Absolute Lymphocytes (CBC) 6.8 K/uL (0.7-4.9); Hematocrit 23.2 % (36.0-45.0); Lymphocytes % 41.6 % (15.3-44.8); MPV 8.2 fL (7.6-11.3); RBC Red Blood Cell Count 2.38 M/uL (3.86-4.86)
[2021-09-15 02:56] LABS: BUN Blood Urea Nitrogen 4 mg/dL (7-18); Bicarbonate 27 mmol/L (21-32); Glomerular Filtration Rate > 90 mL/min (=/>90); Glucose Level 86 mg/dL (74-106); Potassium 4.4 mmol/L (3.5-5.1); Sodium Level 142 mmol/L (136-145); Troponin High Sensitivity 4.1 pg/mL (<58.9)
[2021-09-15] MEDS ORDERED: DIPHENHYDRAMINE 50 MG/ML VIAL ONE ×2 (03:49→06:56)
[2021-09-15] MEDS ORDERED: HYDROMORPHONE HCL 1 MG/ML INJ ONE ×3 (05:48→16:59)
--- NOTE | 2021-09-15 06:19 | EDPHYS ---
Physician Documentation [facility] Name: Gume Ortega Age: 31 yrs Sex: Female : 1990 Arrival Date: 09/15/2021 Time: 02:00 Bed 7 Private MD: ED Physician Chico Menezes HPI: 09/15 03:18 This 31 yrs old Black Female presents to ER via EMS with complaints of Chest pain, kdr sickle cell crisis. 03:18 Patient states she awoke around midnight with chest pain. This is a common presentation kdr for her with regard to her sickle cell disease. She denies any new aspect or changed aspect to her presentation this evening. Her last visit for such complaints was mid August she has been in her usual state of health over the last few days.. Onset: The symptoms/episode began/occurred suddenly, just prior to arrival. Severity of symptoms: At their worst the symptoms were mild moderate just prior to arrival, in the emergency department the symptoms are unchanged. The patient has not recently seen a physician. 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 - Social history:: Smoking status: unknown. ROS: 03:18 Constitutional: Negative for fever, chills, and weight loss, Eyes: Negative for injury, kdr pain, redness, and discharge, ENT: Negative for injury, pain, and discharge, Neck: Negative for injury, pain, and swelling, Respiratory: Negative for shortness of breath, cough, wheezing, and pleuritic chest pain, Abdomen/GI: Negative for abdominal pain, nausea, vomiting, diarrhea, and constipation, Back: Negative for injury and pain, : Negative for injury, bleeding, discharge, and swelling, MS/Extremity: Negative for injury and deformity, Skin: Negative for injury, rash, and discoloration, Neuro: Negative for headache, weakness, numbness, tingling, and seizure activity. Psych: Negative for depression, anxiety, suicide ideation, homicidal ideation, and hallucinations, Allergy/Immunology: Negative for hives, rash, and allergies, Endocrine: Negative for neck swelling, polydipsia, polyuria, polyphagia, and marked weight changes, Hematologic/Lymphatic: Negative for swollen nodes, abnormal bleeding, and unusual bruising. 03:18 Cardiovascular: Positive for chest pain, Negative for edema, orthopnea, palpitations, paroxysmal nocturnal dyspnea. Exam: 03:18 Constitutional: This is a well developed, well nourished patient who is awake, alert, kdr and in no acute distress. Head/Face: Normocephalic, atraumatic. Eyes: Pupils equal round and reactive to light, extra-ocular motions intact. Lids and lashes normal. Conjunctiva and sclera are non-icteric and not injected. Cornea within normal limits. Periorbital areas with no swelling, redness, or edema. Neck: Trachea midline, no thyromegaly or masses palpated, and no cervical lymphadenopathy. Supple, full range of motion without nuchal rigidity, or vertebral point tenderness. No Meningismus. Chest/axilla: Normal chest wall appearance and motion. Nontender with no deformity. No lesions are appreciated. Cardiovascular: Regular rate and rhythm with a normal S1 and S2. No gallops, murmurs, or rubs. Normal PMI, no JVD. No pulse deficits. Respiratory: Lungs have equal breath sounds bilaterally, clear to auscultation and percussion. No rales, rhonchi or wheezes noted. No increased work of breathing, no retractions or nasal flaring. Back: No spinal tenderness. No costovertebral tenderness. Full range of motion. Skin: Warm, dry with normal turgor. Normal color with no rashes, no lesions, and no evidence of cellulitis. MS/ Extremity: Pulses equal, no cyanosis. Neurovascular intact. Full, normal range of motion. Neuro: Awake and alert, GCS 15, oriented to person, place, time, and situation. Cranial nerves II-XII grossly intact. Motor strength 5/5 in all extremities. Sensory grossly intact. Cerebellar exam normal. Normal gait. Psych: Awake, alert, with orientation to person, place and time. Behavior, mood, and affect are within normal limits. 03:18 Abdomen/GI: Inspection: abdomen appears normal, Bowel sounds: normal, Palpation: soft. 05:41 ECG was reviewed by the Attending Physician. kdr Vital Signs: 02:00 BP 100 / 76; Pulse 95; Resp 21; Temp 98.4(TE); Pulse Ox 99% on R/A; Weight 73.94 kg; sm5 Height 5 ft. 2 in. (157.48 cm); Pain 10/10; 03:27 BP 111 / 41; Pulse 66; Resp 22; Pulse Ox 100% on 4 lpm NC; ll3 04:47 BP 90 / 59; Pulse 73; Resp 19; Pulse Ox 100% on R/A; sm5 05:51 BP 89 / 55; Pulse 60; Resp 18; Pulse Ox 100% on R/A; sm5 06:33 BP 102 / 71; Pulse 51; Resp 16; Pulse Ox 99% on R/A; sm5 02:00 Body Mass Index 29.81 (73.94 kg, 157.48 cm) 5 MDM: 03:18 Data reviewed: vital signs, nurses notes, lab test result(s), radiologic studies. kdr Counseling: I had a detailed discussion with the patient and/or guardian regarding: the historical points, exam findings, and any diagnostic results supporting the discharge/admit diagnosis, lab results, radiology results, the need for outpatient follow up. 06:18 Patient medically screened. kdr 09/15 02:03 Order name: Basic Metabolic Panel; Complete Time: 03:03 kdr 09/15 02:03 Order name: CBC with Diff; Complete Time: 03:03 kdr 09/15 02:03 Order name: Troponin HS; Complete Time: 03:03 kdr 09/15 02:03 Order name: Retic Count; Complete Time: 03:03 kdr 09/15 06:15 Order name: Troponin High Sensitivity kdr 09/15 02:03 Order name: XRAY Chest (1 view) kdr 09/15 06:52 Order name: SARS-COV-2 RT PCR EDMS 09/15 02:03 Order name: EKG; Complete Time: 02:03 kdr 09/15 02:03 Order name: Cardiac monitoring; Complete Time: 02:35 kdr 09/15 02:03 Order name: EKG - Nurse/Tech; Complete Time: 03:20 kdr 09/15 02:03 Order name: IV Saline Lock; Complete Time: 02:35 kdr 09/15 02:03 Order name: Labs collected and sent; Complete Time: 02:35 kdr 09/15 02:03 Order name: O2 Per Protocol; Complete Time: :18 kdr 09/15 02:03 Order name: O2 Sat Monitoring; Complete Time: :18 kdr 09/15 02:16 Order name: Oxygen: 4 l/NC; Complete Time: : kdr EC:41 Rate is 68 beats/min. Rhythm is regular, Sinus Rhythm with No ectopy. QRS Naches is kdr Normal. VA interval is normal. QRS interval is normal. Clinical impression: NSR w/ Non-specific ST/T Changes. Administered Medications: 02:35 Drug: Dilaudid (HYDROmorphone) 2 mg Route: IVP; Site: Port-a-cath; 5 04:04 Follow up: Response: Pain is unchanged, physician notified 5 02:35 Drug: Pepcid (famotidine) 20 mg Route: IVP; Site: Port-a-cath; sm5 04:05 Follow up: Response: No adverse reaction 5 02:35 Drug: Phenergan (promethazine) 25 mg Route: IVP; Site: Port-a-cath; sm5 04:05 Follow up: Response: No adverse reaction 5 03:18 Drug: NS 0.9% 1000 ml Route: IV; Rate: 1 bolus; Site: Port-a-cath; 3 06:57 Follow up: IV Status: Completed infusion; IV Intake: 1000ml sm5 03:57 Drug: Benadryl (diphenhydrAMINE) 25 mg Route: IVP; Site: Port-a-cath; sm5 04:47 Follow up: Response: No adverse reaction 5 03:57 Drug: Dilaudid (HYDROmorphone) 2 mg Route: IVP; Site: Port-a-cath; sm5 04:46 Follow up: Response: Pain is unchanged, physician notified 5 05:45 Drug: Dilaudid (HYDROmorphone) 1 mg Route: IVP; Site: Port-a-cath; [facility] 06:23 Follow up: Response: RASS: Drowsy (-1) [facility] 06:55 Drug: Benadryl (diphenhydrAMINE) 25 mg Route: IVP; Site: Port-a-cath; [facility] 17:16 Follow up: Response: No adverse reaction bp 06:55 Drug: SOLU-Medrol (methylPrednisoLONE) 125 mg Route: IVP; Site: Port-a-cath; [facility] 17:16 Follow up: Response: No adverse reaction bp 06:56 Drug: NS 0.9% 1000 ml Route: IV; Rate: 1 bolus; Site: Port-a-cath; [facility] 17:16 Follow up: IV Status: Completed infusion; IV Intake: 1000ml bp Disposition Summary: 09/15/21 06:18 Hospitalization Ordered Hospitalization Status: Observation kdr Provider: Apolinar Castrejon Condition: Fair kdr Problem: an acute exacerbation kdr Symptoms: have improved kdr Bed/Room Type: Standard kdr Location: Telemetry/MedSurg (observation)(09/15/21 16:43) kj1 Room Assignment: 229(09/15/21 16:43) kj1 Diagnosis - Chest pain, unspecified kdr - Other sickle-cell disorders with crisis kdr Forms: - Medication Reconciliation Form kdr - SBAR form kdr Signatures: Dispatcher [employer] EDMS Chasity Mariscal RN RN mw Chico Menezes MD MD kdr Jackson, Kandis kj1 Layton Travis RN RN ll3 Taylor Patel RN RN sm5 Macie Lakhani PA PA sb3 Mathew Navarrete RN bp Corrections: (The following items were deleted from the chart) 06:38 06:18 Telemetry/MedSurg (observation) kdr mw 06:38 06:18 kdr mw 06:52 06:33 COVID 19 CPL+MRKAREN.REBEKAH ordered. EDMS EDMS 16:43 06:38 [facility] ER HOLD mw kj1 16:43 06:38 ERHOLD- mw kj1
--- NOTE | 2021-09-15 06:19 | ER ---
Nurse's Notes [facility] Name: Gume Ortega Age: 31 yrs Sex: Female : 1990 Arrival Date: 09/15/2021 Time: 02:00 Bed 7 Private MD: Diagnosis: Chest pain, unspecified;Other sickle-cell disorders with crisis Presentation: 09/15 02:00 Chief complaint: EMS states: pt has hx of sickle cell and woke up at midnight in pain. [facility] Coronavirus screen: Vaccine status: Patient reports receiving the 1st dose of the Covid vaccine. Ebola Screen: No symptoms or risks identified at this time. Initial Sepsis Screen: Does the patient meet any 2 criteria? No. Patient's initial sepsis screen is negative. Does the patient have a suspected source of infection? No. Patient's initial sepsis screen is negative. Risk Assessment: Do you want to hurt yourself or someone else? Patient reports no desire to harm self or others. Onset of symptoms was September 15, 2021. 02:00 Method Of Arrival: EMS: [facility] 02:00 Acuity: MARILUZ 3 [facility] Triage Assessment: 02:04 General: Appears uncomfortable, Behavior is cooperative. Pain: Complains of pain in 5 generalized. Neuro: No deficits noted. Level of Consciousness is awake, alert, obeys commands, Oriented to person, place, time, situation. Cardiovascular: No deficits noted. Capillary refill < 3 seconds Patient's skin is warm and dry. Respiratory: No deficits noted. Airway is patent Trachea midline Respiratory effort is even. 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 - Social history:: Smoking status: unknown. Screenin:05 Abuse screen: Denies threats or abuse. Denies injuries from another. Nutritional 5 screening: No deficits noted. Tuberculosis screening: No symptoms or risk factors identified. Fall Risk None identified. Assessment: 02:04 General: See triage assessment.. ll3 03:27 Reassessment: Patient and/or family updated on plan of care and expected duration. Pain ll3 level reassessed. Patient is alert, oriented x 3, equal unlabored respirations, skin warm/dry/pink. C/o pain all over 02/19, states pain meds didn't help, ERP notified. 06:33 Reassessment: repeat ekg completed per Dr. Menezes's verbal order. 5 06:57 Reassessment: pt asleep in bed. 5 07:00 Reassessment: RECD REPORT FROM TAYLOR HOWE. 31YO BF P/W PAIN ALL OVER, H/O SICKLE CELL. bp 17:37 Reassessment: pt to 228 per floor nurse. jd3 Vital Signs: 02:00 BP 100 / 76; Pulse 95; Resp 21; Temp 98.4(TE); Pulse Ox 99% on R/A; Weight 73.94 kg; 5 Height 5 ft. 2 in. (157.48 cm); Pain 02/19; 03:27 BP 111 / 41; Pulse 66; Resp 22; Pulse Ox 100% on 4 lpm NC; ll3 04:47 BP 90 / 59; Pulse 73; Resp 19; Pulse Ox 100% on R/A; sm5 05:51 BP 89 / 55; Pulse 60; Resp 18; Pulse Ox 100% on R/A; sm5 06:33 BP 102 / 71; Pulse 51; Resp 16; Pulse Ox 99% on R/A; 5 02:00 Body Mass Index 29.81 (73.94 kg, 157.48 cm) [facility] ED Course: 02:00 Patient arrived in ED. 5 02:00 Chico Menezes MD is Attending Physician. kdr 02:03 Triage completed. 5 02:04 Arm band placed on right wrist. 5 02:05 Taylor Patel, SHYAM is Primary Nurse. 5 02:22 XRAY Chest (1 view) In Process Unspecified. EDMS 02:35 Accessed Medi-Port. using accessed w/ # 20 Peters needle, ,sterile technique, per [address] protocol. Clean \T\ dry. Dressing intact. Good blood return. Flushes easily. 02:36 Patient has correct armband on for positive identification. Bed in low position. Call [facility] light in reach. Side rails up X2. 02:37 Initial lab(s) drawn, by me, sent to lab. 5 06:17 Apolinar Castrejon MD is Hospitalizing Provider. kdr 06:43 Troponin High Sensitivity Sent. 5 17:14 No provider procedures requiring assistance completed. Patient admitted, IV remains in bp place. Administered Medications: 02:35 Drug: Dilaudid (HYDROmorphone) 2 mg Route: IVP; Site: Port-a-cath; 5 04:04 Follow up: Response: Pain is unchanged, physician notified [facility] 02:35 Drug: Pepcid (famotidine) 20 mg Route: IVP; Site: Port-a-cath; 5 04:05 Follow up: Response: No adverse reaction 5 02:35 Drug: Phenergan (promethazine) 25 mg Route: IVP; Site: Port-a-cath; 5 04:05 Follow up: Response: No adverse reaction 5 03:18 Drug: NS 0.9% 1000 ml Route: IV; Rate: 1 bolus; Site: Port-a-cath; 3 06:57 Follow up: IV Status: Completed infusion; IV Intake: 1000ml 5 03:57 Drug: Benadryl (diphenhydrAMINE) 25 mg Route: IVP; Site: Port-a-cath; 5 04:47 Follow up: Response: No adverse reaction 5 03:57 Drug: Dilaudid (HYDROmorphone) 2 mg Route: IVP; Site: Port-a-cath; 5 04:46 Follow up: Response: Pain is unchanged, physician notified 5 05:45 Drug: Dilaudid (HYDROmorphone) 1 mg Route: IVP; Site: Port-a-cath; 5 06:23 Follow up: Response: RASS: Drowsy (-1) [facility] 06:55 Drug: Benadryl (diphenhydrAMINE) 25 mg Route: IVP; Site: Port-a-cath; [facility] 17:16 Follow up: Response: No adverse reaction bp 06:55 Drug: SOLU-Medrol (methylPrednisoLONE) 125 mg Route: IVP; Site: Port-a-cath; 5 17:16 Follow up: Response: No adverse reaction bp 06:56 Drug: NS 0.9% 1000 ml Route: IV; Rate: 1 bolus; Site: Port-a-cath; 5 17:16 Follow up: IV Status: Completed infusion; IV Intake: 1000ml bp Intake: 06:57 IV: 1000ml; Total: 1000ml. 5 17:16 IV: 1000ml; Total: 2000ml. bp Outcome: 06:18 Decision to Hospitalize by Provider. kdr 17:14 Admitted to Med/surg accompanied by tech, via wheelchair, room 231, with chart, Report bp called to TJ RN 17:14 Condition: stable 17:14 Instructed on the need for admit. 17:25 Patient left the ED. bp Signatures: Dispatcher [employer] EDMS Chico Menezes MD MD kdr Davies, Jonathon RN RN jMathew Toribio, RN RN Judi Donnelly 5 Layton Travis RN RN ll3 Taylor Patel RN RN 5 Corrections: (The following items were deleted from the chart) 06:52 06:43 COVID 19 CPL+ drawn and sent. [facility] EDOK
[2021-09-15] MEDS ORDERED: METHYLPREDNISOLONE 125 MG INJ ONE (06:56)
[2021-09-15] MEDS ORDERED: ONDANSETRON 4 MG/2 ML VIAL IV PRN (09:13)
[2021-09-15] MEDS ORDERED: ACETAMINOPHEN 500 MG TAB PO PRN (09:13)
[2021-09-15] MEDS: ENOXAPARIN 40 MG/0.4 ML SQ SCH (09:13)
[2021-09-15] MEDS: NA CHLORIDE 0.9% 1,000 ML IV SCH ×2 (09:13→18:41)
[2021-09-15] MEDS: HYDROMORPHONE HCL 1 MG/ML INJ IV PRN ×3 (10:00→20:50)
[2021-09-15] MEDS ORDERED: ENOXAPARIN 40 MG/0.4 ML SQ ONE (10:50)
[2021-09-15] MEDS ORDERED: PROMETHAZINE INJ 25 MG/ML AMP IV PRN (12:52)
--- NOTE | 2021-09-15 14:33 | EKG ---
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
[2021-09-15] MEDS ORDERED: IPRATROPIUM BROM 0.5MG/2.5ML ONE (14:40)
[2021-09-15] MEDS ORDERED: Levofloxacin500mg IV 500 MG/100 ML BAG IV ONE (14:40)
[2021-09-15] MEDS ORDERED: ALBUTEROL 2.5 MG/3 ML NEB SOL ONE (14:40)
--- NOTE | 2021-09-15 15:44 | P.HP ---
Certification for Inpatient Patient admitted to: Inpatient With expected LOS: >2 Midnights Practitioner: I am a practitioner with admitting privileges, knowledge of patient current condition, hospital course, and medical plan of care. Services: Services provided to patient in accordance with Admission requirements found in Title 42 Section 412.3 of the Code of Federal Regulations Patient History Date of Service: 09/15/21 Reason for admission: Bodily pains History of Present Illness: 31-year-old woman with a history of sickle cell disease presented emergency department with a complaint of chest pain and generalized bodily pain which wakes her up from sleep in the middle of the night. Patient presented to the ED where blood work shows elevated reticulocyte count, leukocytosis and anemia. Patient diagnosed with sickle cell crisis, supportive measures initiated with IV fluids and IV opiate as needed for pain. Patient is admitted for further management. Allergies ondansetron HCl [From Zofran] Allergy (Mild, Verified 07/09/21 05:43) Nausea/Vomiting morphine Allergy (Verified 07/09/21 05:43) Nausea/Vomiting Sulfa (Sulfonamide Antibiotics) Allergy (Verified 07/09/21 05:43) Nausea/Vomiting Home Medications: Folic Acid [Folic Acid*] 1 mg PO DAILY 08/01/12 Promethazine Tab [Phenergan*] 25 mg PO Q4H PRN #30 tab 11/15/19 ALPRAZolam [Xanax*] 1 mg PO BIDP PRN 09/30/20 Cholecalciferol (Vitamin D3) [Vitamin D 1000 Iu Tab*] 1,000 unit PO EVERY 7TH DAY 09/30/20 Apixaban [Eliquis *] 2.5 mg PO BID #60 tablet 12/21/20 Hydromorphone HCl [Dilaudid] 8 mg PO TID PRN 30 Days #60 tablet 12/21/20 clonazePAM [Klonopin*] 0.5 mg PO BID PRN #40 tab 07/05/21 Polyethyl Gly 3350 [Glycolax*] 17 gm PO DAILYPRN PRN #30 udbot 07/19/21 - Past Medical/Surgical History Diabetic: No -: sickle cell -: pneumonia -: blod clot left lung -: port-a-cath placement Psychosocial/ Personal History: Patient lives at home with her girlfriend - Family History Mother -: Other (see notes) Notes: sickle cell trait Father -: Other (see notes) Notes: sickle cell trait - Social History Smoking Status: Current some day smoker Alcohol use: No CD- Drugs: Yes Caffeine use: No Review of Systems Other: Except as documented, all other systems reviewed and negative. Physical Examination - Vital Signs Blood Pressure: 107/59 Pulse: 73 Respirations: 15 Pulse Ox (%): 99 - Physical Exam General: Alert, In no apparent distress, Oriented x3 HEENT: Mucous membr. moist/pink Neck: Supple, JVD not distended Respiratory: Clear to auscultation bilaterally, Normal air movement Cardiovascular: No edema, Regular rate/rhythm, Normal S1 S2, No murmurs Capillary refill: <2 Seconds Gastrointestinal: Normal bowel sounds, Soft and benign, Non-distended, No tenderness Musculoskeletal: No swelling, No tenderness Integumentary: No rashes, No erythema Neurological: Normal speech, Normal strength at 5/5 x4 extr, Cranial nerves 3-12 intact Lymphatics: No axilla or inguinal lymphadenopathy - Studies Laboratory Data (last 24 hrs) 09/15/21 02:30: WBC 16.3 H, Hgb 8.0 L, Hct 23.2 L, Plt Count 374 D 09/15/21 02:30: Sodium 142, Potassium 4.4, BUN 4 L, Creatinine 0.48 L, Glucose 86 Assessment and Plan - Problems (Diagnosis) (1) Sickle cell pain crisis Current Visit: No Status: Acute (2) History of pulmonary embolism Current Visit: No Status: Chronic (3) Leucocytosis Current Visit: No Status: Chronic Qualifiers: Leukocytosis type: unspecified Qualified Code(s): D72.829 - Elevated white blood cell count, unspecified - Plan Admit patient to the medical floor. Supportive measures with IV hydration, IV opioids as needed for pain. Antiemetics as needed. Monitor CBC to follow hemoglobin, leukocytosis and reticulocyte count. Continue Eliquis for history of pulm embolism. Patient stated she has not been on hydroxyurea because it is giving her suicidal thoughts in the past. - Advance Directives Does patient have a Living Will: No Does patient have a Durable POA for Healthcare: No
[2021-09-15] MEDS ORDERED: HYDROMORPHONE HCL 1 MG/ML INJ IV ONE (21:15)
[2021-09-16] MEDS: NA CHLORIDE 0.9% 1,000 ML IV SCH ×2 (00:52→09:24)
[2021-09-16] MEDS: HYDROMORPHONE HCL 1 MG/ML INJ IV PRN ×5 (05:25→21:58)
[2021-09-16 05:54] LABS: Absolute Lymphocytes (CBC) 4.6 K/uL (0.7-4.9); Lymphocytes % 24.6 % (15.3-44.8); MPV 8.5 fL (7.6-11.3); RBC Red Blood Cell Count 2.01 M/uL (3.86-4.86)
[2021-09-16 06:12] LABS: Hematocrit 19.8 % (36.0-45.0)
[2021-09-16 06:16] LABS: ALT/SGPT 17 U/L (12-78); AST/SGOT 13 U/L (15-37); Albumin 3.3 g/dL (3.4-5.0); Alkaline Phosphatase 67 U/L (45-117); BUN Blood Urea Nitrogen 6 mg/dL (7-18); Bicarbonate 26 mmol/L (21-32); Bilirubin Total 3.7 mg/dL (0.2-1.0); Glomerular Filtration Rate > 90 mL/min (=/>90); Glucose Level 96 mg/dL (74-106); Magnesium 1.7 mg/dL (1.8-2.4); Phosphorus 2.8 mg/dL (2.5-4.9); Potassium 4.1 mmol/L (3.5-5.1); Protein, Total 5.9 g/dL (6.4-8.2); Sodium Level 158 mmol/L (136-145); Thyroid Stimulating Hormone 0.109 uIU/mL (0.360-3.740)
[2021-09-16 08:14] LABS: Anisocytosis 2+; Blood Morphology Comment NOTED (NOT SEEN); Platelet Estimate INCR; Polychromasia 1+
[2021-09-16 08:15] LABS: Howell-Jolly Bodies NOTED; Poikilocytosis 1+
[2021-09-16] MEDS ORDERED: MAGNESIUM SULFATE 1 gm IVPB 1 GM/100 ML BAG IV ONE (09:00)
[2021-09-16] MEDS: ENOXAPARIN 40 MG/0.4 ML SQ SCH (09:20)
[2021-09-16] MEDS: DIPHENHYDRAMINE 50 MG/ML VIAL IV PRN ×2 (10:14→16:54)
--- NOTE | 2021-09-16 13:53 | P.PN ---
Subjective Date of Service: 09/16/21 Chief Complaint: Bodily pains Patient is complaining of persistent generalized bodily pain. She states her urine color is clear. She has been afebrile. Serial sodium level has increased. Physical Examination - Vital Signs Temperature: 97.8 F Blood Pressure: 94/54 Pulse: 78 Respirations: 18 Pulse Ox (%): 94 - Physical Exam General: Alert, Oriented x3, Mild distress (Due to pain) HEENT: Mucous membr. moist/pink Neck: JVD not distended Respiratory: Clear to auscultation bilaterally, Normal air movement Cardiovascular: No edema, Regular rate/rhythm, Normal S1 S2 Gastrointestinal: Soft and benign, Non-distended, No tenderness Musculoskeletal: No swelling Integumentary: No rashes, No cyanosis Neurological: Normal speech, Normal strength at 5/5 x4 extr Assessment And Plan - Current Problems (Diagnosis) (1) Sickle cell pain crisis Current Visit: No Status: Acute (2) History of pulmonary embolism Current Visit: No Status: Chronic (3) Leucocytosis Current Visit: No Status: Chronic Qualifiers: Leukocytosis type: unspecified Qualified Code(s): D72.829 - Elevated white blood cell count, unspecified - Plan Continue supportive measures with IV hydration, IV opioids as needed for pain. Change IV normal saline to half-normal saline given hypernatremia. Monitor BMP. Hemoglobin dropped to 7. White cell count increased. Obtain blood cultures, start empiric IV Rocephin. Monitor CBC to follow hemoglobin, leukocytosis and reticulocyte count. Continue Eliquis for history of pulm embolism.
[2021-09-16] MEDS: NACHLORIDE 0.45% 1,000 ML IV SCH ×2 (14:23→22:04)
[2021-09-16] MEDS: CEFTRIAXONE 1,000 MG in NA CHLORIDE 0.9% 50 ML IVPB SCH (14:25)
[2021-09-16 18:47] LABS: Urine Bilirubin Negative (Negative); Urine Blood Trace-intact (Negative); Urine Color Yellow (Yellow); Urine Glucose Negative (Negative); Urine Protein Negative (Negative); Urine Specific Gravity 1.015 (1.005-1.030); Urine Urobilinogen 0.2 mg/dL (0.2-1.0)
[2021-09-16 19:03] LABS: Urine Appearance SL CLOUDY (Clear); Urine Bacteria 20-50 /HPF (<20); Urine Microscopic Reflex ORDER UMIC; Urine RBC <5 /HPF (NONE SEEN)
[2021-09-16 19:05] LABS: Urine Amorphous Sediment 1+ /HPF (NONE SEEN); Urine Mucus 1+ /HPF (NONE SEEN)
[2021-09-17] MEDS: HYDROMORPHONE HCL 1 MG/ML INJ IV PRN ×6 (02:02→22:13)
[2021-09-17] MEDS: DIPHENHYDRAMINE 50 MG/ML VIAL IV PRN ×3 (02:02→17:56)
[2021-09-17 06:24] LABS: BUN Blood Urea Nitrogen 8 mg/dL (7-18); Bicarbonate 29 mmol/L (21-32); Glomerular Filtration Rate > 90 mL/min (=/>90); Glucose Level 87 mg/dL (74-106); Magnesium 1.7 mg/dL (1.8-2.4); Potassium 3.8 mmol/L (3.5-5.1); Sodium Level 142 mmol/L (136-145)
[2021-09-17] MEDS ORDERED: MAGNESIUM SULFATE 1 gm IVPB 1 GM/100 ML BAG IV ONE (09:00)
[2021-09-17] MEDS ORDERED: POTASSIUM 25 MEQ EFFERV TAB PO ONE (09:00)
[2021-09-17] MEDS: NACHLORIDE 0.45% 1,000 ML IV SCH ×3 (09:56→21:53)
[2021-09-17] MEDS: CEFTRIAXONE 1,000 MG in NA CHLORIDE 0.9% 50 ML IVPB SCH (09:57)
[2021-09-17] MEDS: ENOXAPARIN 40 MG/0.4 ML SQ SCH (09:57)
[2021-09-17 10:16] LABS: Lymphocytes % 40.6 % (15.3-44.8); MPV 8.2 fL (7.6-11.3); RBC Red Blood Cell Count 2.05 M/uL (3.86-4.86)
[2021-09-17 10:31] LABS: Hematocrit 20.1 % (36.0-45.0)
[2021-09-17 10:42] VITALS: BMI 29.7
--- NOTE | 2021-09-17 12:30 | P.PN ---
Subjective Date of Service: 09/17/21 Chief Complaint: Bodily pains Patient reports no improvement in her pain. She has been afebrile. Leukocytosis is worse today. Reticulocyte count trended up. Physical Examination - Vital Signs Temperature: 98.1 F Blood Pressure: 109/58 Pulse: 66 Respirations: 14 Pulse Ox (%): 93 - Physical Exam General: Alert, In no apparent distress, Oriented x3 Neck: JVD not distended Respiratory: Clear to auscultation bilaterally, Normal air movement Cardiovascular: No edema, Regular rate/rhythm, Normal S1 S2 Gastrointestinal: Soft and benign, Non-distended Musculoskeletal: No swelling Integumentary: No rashes, No cyanosis Neurological: Normal strength at 5/5 x4 extr Assessment And Plan - Current Problems (Diagnosis) (1) Sickle cell pain crisis Current Visit: No Status: Acute (2) History of pulmonary embolism Current Visit: No Status: Chronic (3) Leucocytosis Current Visit: No Status: Chronic Qualifiers: Leukocytosis type: unspecified Qualified Code(s): D72.829 - Elevated white blood cell count, unspecified - Plan Leukocytosis trending up, reticulocyte count also trending up. Hypernatremia resolved. Continue supportive measures with IV wytahqjos-jqxo-jzuyuo saline, IV opioids as needed for pain. 1 blood culture bottle growing gram-positive cocci in clusters. Anaerobic culture bottle still pending Continue IV Rocephin. Added vancomycin. Monitor BMP. And CBC Hemoglobin dropped to 6.8. Continue to monitor and transfuse PRBC if hemoglobin continues to drop. Repeat blood cultures Continue Eliquis for history of pulm embolism.
[2021-09-17] MEDS ORDERED: VANCOMYCIN 1.75 GM in NA CHLORIDE 0.9% 500 ML IVPB ONE (16:00)
[2021-09-17] MEDS: PROMETHAZINE INJ 25 MG/ML AMP IV PRN (18:43)
[2021-09-18] MEDS: HYDROMORPHONE HCL 1 MG/ML INJ IV PRN ×6 (02:20→23:01)
[2021-09-18] MEDS: PROMETHAZINE INJ 25 MG/ML AMP IV PRN ×5 (02:21→23:02)
[2021-09-18] MEDS: DIPHENHYDRAMINE 50 MG/ML VIAL IV PRN ×3 (02:29→23:05)
[2021-09-18] MEDS: VANCOMYCIN 1.25 GM in NA CHLORIDE 0.9% 250 ML IVPB SCH ×2 (04:09→16:11)
[2021-09-18] MEDS: NACHLORIDE 0.45% 1,000 ML IV SCH ×4 (06:00→19:01)
[2021-09-18 06:40] LABS: Lymphocytes % 18.4 % (15.3-44.8); MPV 8.6 fL (7.6-11.3); RBC Red Blood Cell Count 2.01 M/uL (3.86-4.86)
[2021-09-18 07:02] LABS: BUN Blood Urea Nitrogen 5 mg/dL (7-18); Bicarbonate 31 mmol/L (21-32); Glomerular Filtration Rate > 90 mL/min (=/>90); Glucose Level 107 mg/dL (74-106); Potassium 3.5 mmol/L (3.5-5.1); Sodium Level 140 mmol/L (136-145)
[2021-09-18] MEDS ORDERED: POTASSIUM 25 MEQ EFFERV TAB PO ONE (09:00)
--- NOTE | 2021-09-18 09:03 | EKG ---
Test Date: 2021-09-15 Test Time: 06:16:55 Heavy Equipment Service Manager: APRIL MEASUREMENT RESULTS: Intervals: Rate: 54 MS: 138 QRSD: 86 QT: 446 QTc: 422 [place]: P: 2 MS: 138 QRS: 37 T: 36 INTERPRETIVE STATEMENTS: Sinus bradycardia with sinus arrhythmia Otherwise normal ECG Compared to ECG 09/15/2021 02:57:55 Sinus rhythm no longer present Myocardial infarct finding no longer present Electronically Signed On 09-18-21 08:57:10 CDT by Jeremie Pan
[2021-09-18] MEDS: ENOXAPARIN 40 MG/0.4 ML SQ SCH (10:07)
[2021-09-18] MEDS: CEFTRIAXONE 1,000 MG in NA CHLORIDE 0.9% 50 ML IVPB SCH (10:07)
--- NOTE | 2021-09-18 11:14 | RAD REPORT ---
EXAM DESCRIPTION: RAD - Chest Single View - 09/15/2021 2:20 am CLINICAL HISTORY: Chest pain COMPARISON: Chest 1 View AP 07/09/[address] chest 07/15/2021 report without images TECHNIQUE: Chest 1 View AP FINDINGS: Trachea midline. Heart size and pulmonary vessels within normal limits. Lungs clear without evidence of consolidation, mass, or significant pulmonary edema. No significant pleural effusion or pneumothorax. Mild symmetric bilateral lower lungs/chest density most likely represents overlying breast/chest wall attenuation artifact. Bones unremarkable. Left-sided port catheter with tip overlying right atrium. IMPRESSION: 1. Left-sided port catheter with tip overlying right atrium. 2. Otherwise, unremarkable chest radiograph. Electronically signed by: Cipriano Corona MD 09/15/2021 2:35 AM CDT Due to temporary technical issues with the PACS/Fluency reporting system, reports are being signed by the in house radiologist without review as a courtesy to ensure prompt reporting. The interpreting r adiologist is fully responsible for the content of the report.
--- NOTE | 2021-09-18 13:46 | P.PN ---
Subjective Date of Service: 09/18/21 Chief Complaint: Bodily pains Patient complaining of persistent generalized bodily pain. She has been afebrile. Oral intake is good. Physical Examination - Vital Signs Temperature: 99.3 F Blood Pressure: 109/56 Pulse: 89 Respirations: 18 Pulse Ox (%): 98 - Physical Exam General: Alert, In no apparent distress, Oriented x3 HEENT: Mucous membr. moist/pink Neck: JVD not distended Respiratory: Clear to auscultation bilaterally, Normal air movement Cardiovascular: No edema, Regular rate/rhythm, Normal S1 S2 Gastrointestinal: Soft and benign, Non-distended, No tenderness Musculoskeletal: No swelling Integumentary: No rashes Neurological: Normal strength at 5/5 x4 extr Assessment And Plan - Current Problems (Diagnosis) (1) Sickle cell pain crisis Current Visit: No Status: Acute (2) History of pulmonary embolism Current Visit: No Status: Chronic (3) Leucocytosis Current Visit: No Status: Chronic Qualifiers: Leukocytosis type: unspecified Qualified Code(s): D72.829 - Elevated white blood cell count, unspecified - Plan Leukocytosis significantly up. Hypernatremia resolved. Continue supportive measures with IV jgifdhcvj-sczp-seaucq saline, IV opioids as needed for pain. 1 blood culture bottle growing gram-positive cocci in clusters. Repeat blood culture is pending Continue IV Rocephin and vancomycin. Monitor BMP and CBC Hemoglobin at 6.9. Continue to monitor and transfuse PRBC if hemoglobin continues to drop. Continue Eliquis for history of pulm embolism.
[2021-09-19] MEDS: HYDROMORPHONE HCL 1 MG/ML INJ IV PRN ×6 (02:54→22:23)
[2021-09-19] MEDS: NACHLORIDE 0.45% 1,000 ML IV SCH ×3 (02:55→16:46)
[2021-09-19] MEDS: PROMETHAZINE INJ 25 MG/ML AMP IV PRN ×6 (02:55→22:23)
[2021-09-19 03:40] LABS: Absolute Lymphocytes (CBC) 5.6 K/uL (0.7-4.9); Lymphocytes % 38.3 % (15.3-44.8); MPV 8.7 fL (7.6-11.3); RBC Red Blood Cell Count 2.14 M/uL (3.86-4.86)
[2021-09-19 03:53] LABS: Albumin 3.2 g/dL (3.4-5.0); Magnesium 1.6 mg/dL (1.8-2.4); Phosphorus 3.6 mg/dL (2.5-4.9); Potassium 3.7 mmol/L (3.5-5.1); Protein, Total 5.9 g/dL (6.4-8.2)
[2021-09-19] MEDS: VANCOMYCIN 1.25 GM in NA CHLORIDE 0.9% 250 ML IVPB SCH (05:05)
[2021-09-19] MEDS ORDERED: MAGNESIUM SULFATE 1 gm IVPB 1 GM/100 ML BAG IV ONE (05:28)
--- NOTE | 2021-09-19 06:50 | P.PN ---
Date of Service: 09/19/21 Subjective: Reports pain is about the same, maybe slightly better No new/worsening symptoms, no focal area that is more severe Appetite improving ROS: 10 point ROS as noted above, otherwise negative Physical exam GEN: Alert, oriented, uncomfortable appearing HEENT: Normal conjunctiva, sclera anicteric CV: Regular rate and rhythm, no edema Pulm: Non-labored respirations on room air ABD: Soft, nontender, nondistended Integumentary: No rashes Neuro: Normal speech, normal affect Problem List sickle cell pain crisis h/o PE, on eliquis Leukocytosis Leukocytosis improving, likely reactive, and not truly infectious Hemoglobin stable Continue supportive measures with IV fluids, IV opioids as needed for pain, patient still requiring every 4 hours Blood culture growing cons, DC vancomycin, suspect contaminant monitor labs Transfuse if hemoglobin drops further Resume Eliquis VTE: eliquis Code: full Dispo: home, 2-3 days Time Spent Managing Pts Care (In Minutes): 35
[2021-09-19] MEDS ORDERED: POTASSIUM CL SA 10 MEQ TAB PO ONE ×2 (07:00→09:00)
[2021-09-19] MEDS: DIPHENHYDRAMINE 50 MG/ML VIAL IV PRN ×3 (07:45→22:23)
[2021-09-19] MEDS ORDERED: DOCUSATE NA 100 MG CAP PO PRN (09:28)
[2021-09-19] MEDS: ENOXAPARIN 40 MG/0.4 ML SQ SCH (09:31)
[2021-09-19] MEDS: CEFTRIAXONE 1,000 MG in NA CHLORIDE 0.9% 50 ML IVPB SCH (09:31)
[2021-09-19] MEDS: DOCUSATE NA 100 MG CAP PO SCH (10:08)
[2021-09-19] MEDS: APIXABAN 2.5 MG TABLET PO SCH (20:54)
[2021-09-20] MEDS: HYDROMORPHONE HCL 1 MG/ML INJ IV PRN ×6 (02:16→21:03)
[2021-09-20] MEDS: PROMETHAZINE INJ 25 MG/ML AMP IV PRN ×6 (02:16→21:03)
[2021-09-20 05:08] LABS: MPV 8.6 fL (7.6-11.3); RBC Red Blood Cell Count 2.02 M/uL (3.86-4.86)
[2021-09-20 05:12] LABS: Hematocrit 20.9 % (36.0-45.0)
[2021-09-20 05:44] LABS: Magnesium 1.5 mg/dL (1.8-2.4); Potassium 3.8 mmol/L (3.5-5.1)
--- NOTE | 2021-09-20 05:58 | P.PN ---
Date of Service: 09/20/21 Subjective: no significant change feels pain medication wears off and has moderate-severe pain before she can get next dose no new symptoms, +flatus, non dysuria, tolerating PO ROS: 10 point ROS as noted above, otherwise negative Physical exam GEN: Alert, oriented, uncomfortable appearing HEENT: Normal conjunctiva, sclera anicteric CV: Regular rate and rhythm, no edema Pulm: Non-labored respirations on room air ABD: Soft, nondistended Integumentary: No rashes Neuro: Normal speech, normal affect Problem List sickle cell pain /crisis h/o PE, on eliquis Leukocytosis Leukocytosis improving, likely reactive, and not truly infectious etiology Hemoglobin stable Continue supportive measures restarted home dilaudid dosing on 09/20, with IV dilaudid for breakthrough. Monitor blood pressure. patient runs low at baseline Blood culture growing CONS, DC vancomycin, suspect contaminant continue rocephin - f/u urine culture, patient denies UTI symptoms monitor labs Transfuse if hemoglobin drops further Resumed Riyaquis 09/19 VTE: eliquis Code: full Dispo: home, 2-3 days Time Spent Managing Pts Care (In Minutes): 35
[2021-09-20] MEDS: DIPHENHYDRAMINE 50 MG/ML VIAL IV PRN ×3 (06:08→21:03)
[2021-09-20] MEDS: NACHLORIDE 0.45% 1,000 ML IV SCH ×2 (06:16→12:44)
[2021-09-20] MEDS ORDERED: Magnesium Sulfate 2gm IVPB 2 G/50 ML BAG IV ONE (06:34)
[2021-09-20] MEDS ORDERED: POTASSIUM CL SA 10 MEQ TAB PO ONE (09:00)
[2021-09-20] MEDS: CEFTRIAXONE 1,000 MG in NA CHLORIDE 0.9% 50 ML IVPB SCH (09:43)
[2021-09-20] MEDS ORDERED: NA CHLORIDE 0.9% 50 ML ONE (09:44)
[2021-09-20] MEDS: APIXABAN 2.5 MG TABLET PO SCH ×2 (09:44→21:02)
[2021-09-20] MEDS: DOCUSATE NA 100 MG CAP PO SCH (09:44)
[2021-09-20] MEDS ORDERED: CEFTRIAXONE 1000 MG/VIAL ONE (09:45)
[2021-09-20] MEDS ORDERED: NA CHLORIDE 0.9% 500 ML IV ONE (12:54)
[2021-09-20] MEDS: HYDROMORPHONE ORAL 4 MG TAB PO PRN (14:39)
[2021-09-21] MEDS: NACHLORIDE 0.45% 1,000 ML IV SCH ×2 (00:49→18:38)
[2021-09-21] MEDS: PROMETHAZINE INJ 25 MG/ML AMP IV PRN ×6 (00:49→20:25)
[2021-09-21] MEDS: HYDROMORPHONE HCL 1 MG/ML INJ IV PRN ×6 (00:49→20:24)
[2021-09-21] MEDS: DIPHENHYDRAMINE 50 MG/ML VIAL IV PRN ×3 (04:33→18:38)
[2021-09-21 04:54] LABS: Hematocrit 21.8 % (36.0-45.0); MPV 8.9 fL (7.6-11.3); RBC Red Blood Cell Count 2.09 M/uL (3.86-4.86)
[2021-09-21 05:14] LABS: Albumin 3.2 g/dL (3.4-5.0); Magnesium 1.7 mg/dL (1.8-2.4); Potassium 3.9 mmol/L (3.5-5.1); Protein, Total 6.2 g/dL (6.4-8.2)
[2021-09-21] MEDS: CEFTRIAXONE 1,000 MG in NA CHLORIDE 0.9% 50 ML IVPB SCH (08:29)
[2021-09-21] MEDS: APIXABAN 2.5 MG TABLET PO SCH ×2 (08:29→20:19)
[2021-09-21] MEDS: DOCUSATE NA 100 MG CAP PO SCH (08:29)
[2021-09-21] MEDS ORDERED: POTASSIUM CL SA 10 MEQ TAB PO ONE (09:00)
[2021-09-21] MEDS: HYDROMORPHONE ORAL 4 MG TAB PO PRN ×2 (10:35→18:38)
--- NOTE | 2021-09-21 17:44 | P.PN ---
Date of Service: 09/21/21 Subjective: felt pain was slightly better when received PO dilaudid and IV breakthrough didn't get PO dilaudid overnight no new / worsening of symptoms ROS: 10 point ROS as noted above, otherwise negative Physical exam GEN: Alert, oriented, uncomfortable appearing at times HEENT: Normal conjunctiva, sclera anicteric CV: Regular rate and rhythm, no edema Pulm: Non-labored respirations on room air ABD: Soft, nondistended Integumentary: No rashes MSK: diffuse soreness/tenderness Neuro: Normal speech, normal affect Problem List sickle cell pain /crisis h/o PE, on eliquis Leukocytosis Leukocytosis improving, likely reactive, and not truly infectious etiology; cultures negative / blood grew CONS - contaminant. dc rocephin Hemoglobin stable Continue supportive measures restarted home dilaudid dosing on 09/20, with IV dilaudid for breakthrough. Monitor blood pressure. patient runs low at baseline continue gentle IVF Transfuse if hemoglobin drops further Resumed Eliquis 09/19 VTE: eliquis Code: full Dispo: home, ~2 days Time Spent Managing Pts Care (In Minutes): 35
[2021-09-22] MEDS: DIPHENHYDRAMINE 50 MG/ML VIAL IV PRN ×3 (00:30→21:24)
[2021-09-22] MEDS: HYDROMORPHONE HCL 1 MG/ML INJ IV PRN ×6 (00:30→21:07)
[2021-09-22] MEDS: PROMETHAZINE INJ 25 MG/ML AMP IV PRN ×6 (00:30→21:24)
[2021-09-22] MEDS ORDERED: MAGNESIUM SULFATE 1 gm IVPB 1 GM/100 ML BAG IV ONE (02:06)
[2021-09-22] MEDS: HYDROMORPHONE ORAL 4 MG TAB PO PRN (02:25)
[2021-09-22] MEDS: NACHLORIDE 0.45% 1,000 ML IV SCH (04:44)
[2021-09-22 05:16] LABS: Potassium 4.3 mmol/L (3.5-5.1)
--- NOTE | 2021-09-22 06:33 | P.PN ---
Date of Service: 09/22/21 Subjective: pain better controlled with PO dilaudid and IV for breakthrough ROS: 10 point ROS as noted above, otherwise negative Physical exam GEN: Alert, oriented HEENT: Normal conjunctiva, sclera anicteric CV: Regular rate and rhythm, no edema Pulm: Non-labored respirations on room air ABD: Soft, nondistended Integumentary: No rashes, no lesions MSK: diffuse soreness/tenderness Neuro: Normal speech, normal affect Problem List sickle cell pain /crisis h/o PE, on eliquis Leukocytosis Leukocytosis improved, likely reactive, and not truly infectious etiology; cultures negative / blood grew CONS - contaminant. dc'd rocephin on 09/21 Hemoglobin stable Continue supportive measures restarted home dilaudid dosing on 09/20, with IV dilaudid for breakthrough. Monitor blood pressure. patient runs low at baseline scheduled PO pain medication, IV for breakthrough dc IVF and monitor Transfuse if hemoglobin drops further Resumed Eliquis 09/19 repeat labs in AM VTE: eliquis Code: full Dispo: home, ~2 days Time Spent Managing Pts Care (In Minutes): 35
[2021-09-22] MEDS: APIXABAN 2.5 MG TABLET PO SCH ×2 (08:33→21:25)
[2021-09-22] MEDS: DOCUSATE NA 100 MG CAP PO SCH (08:33)
[2021-09-22] MEDS: HYDROMORPHONE ORAL 4 MG TAB PO SCH ×2 (11:33→18:00)
[2021-09-23] MEDS: HYDROMORPHONE HCL 1 MG/ML INJ IV PRN ×7 (01:07→23:45)
[2021-09-23] MEDS: PROMETHAZINE INJ 25 MG/ML AMP IV PRN ×7 (01:08→23:46)
[2021-09-23] MEDS: HYDROMORPHONE ORAL 4 MG TAB PO SCH ×3 (02:43→17:58)
[2021-09-23] MEDS: DIPHENHYDRAMINE 50 MG/ML VIAL IV PRN ×4 (05:08→23:46)
[2021-09-23 05:57] LABS: Absolute Lymphocytes (CBC) 4.3 K/uL (0.7-4.9); Lymphocytes % 26.2 % (15.3-44.8); MPV 8.8 fL (7.6-11.3); RBC Red Blood Cell Count 2.11 M/uL (3.86-4.86)
[2021-09-23 06:10] LABS: Albumin 3.6 g/dL (3.4-5.0); Potassium 4.3 mmol/L (3.5-5.1)
[2021-09-23 06:14] LABS: Hematocrit 20.7 % (36.0-45.0)
[2021-09-23 07:31] LABS: Smudge Cells FEW
[2021-09-23 07:32] LABS: Platelet Estimate ADEQ
[2021-09-23 07:33] LABS: ACANTHOCYTE 1+; Anisocytosis 1+; Blood Morphology Comment NOTED (NOT SEEN); Hypochromasia 1+; Platelets, Giant FEW; Poikilocytosis 1+
[2021-09-23] MEDS: APIXABAN 2.5 MG TABLET PO SCH ×2 (08:46→21:54)
[2021-09-23] MEDS: DOCUSATE NA 100 MG CAP PO SCH (08:47)
--- NOTE | 2021-09-23 12:41 | P.PN ---
Date of Service: 09/23/21 Subjective: pain better controlled with PO dilaudid and IV for breakthrough no new / worsening symptoms, no abdominal pain no constipation, no diarrhea, no nausea ROS: 10 point ROS as noted above, otherwise negative Physical exam GEN: Alert, oriented HEENT: Normal conjunctiva, sclera anicteric CV: Regular rate and rhythm, no edema Pulm: Non-labored respirations on room air ABD: Soft, nondistended, nontender MSK: diffuse soreness/tenderness Neuro: Normal speech, normal affect Problem List sickle cell pain /crisis h/o PE, on eliquis elevated LFTs Leukocytosis improved, likely reactive, and not truly infectious etiology; cultures negative / blood grew CONS - contaminant. dc'd rocephin on 09/21 Hemoglobin stable Continue supportive measures restarted home dilaudid dosing on 09/20, with IV dilaudid for breakthrough. Monitor blood pressure. patient runs low at baseline increase PO dilaudid to QID from TID, decrease IV dilaudid from 1mg to 0.5mg for breakthrough monitor hgb Resumed Eliquis 09/19 lfts slightly increased, have fluctuated in the past, no RUQ tenderness; repeat in AM, if increasing, will further evaluate with U/S VTE: eliquis Code: full Dispo: home, ~2 days Time Spent Managing Pts Care (In Minutes): 35
[2021-09-24] MEDS: HYDROMORPHONE ORAL 4 MG TAB PO SCH ×3 (02:39→17:45)
[2021-09-24] MEDS: HYDROMORPHONE HCL 1 MG/ML INJ IV PRN ×6 (03:47→23:25)
[2021-09-24] MEDS: PROMETHAZINE INJ 25 MG/ML AMP IV PRN ×6 (03:48→23:24)
[2021-09-24 05:42] LABS: MPV 8.4 fL (7.6-11.3); RBC Red Blood Cell Count 2.18 M/uL (3.86-4.86)
[2021-09-24 05:47] LABS: Hematocrit 20.6 % (36.0-45.0)
[2021-09-24 06:16] LABS: Albumin 3.9 g/dL (3.4-5.0); Bilirubin Direct 0.8 mg/dL (0-0.2); Bilirubin Total 3.6 mg/dL (0.2-1.0); Potassium 4.6 mmol/L (3.5-5.1); Protein, Total 7.5 g/dL (6.4-8.2)
[2021-09-24 06:31] LABS: Magnesium 1.9 mg/dL (1.8-2.4)
[2021-09-24] MEDS: DIPHENHYDRAMINE 50 MG/ML VIAL IV PRN ×3 (07:51→23:24)
[2021-09-24] MEDS: APIXABAN 2.5 MG TABLET PO SCH ×2 (07:51→20:45)
[2021-09-24] MEDS: DOCUSATE NA 100 MG CAP PO SCH (07:51)
[2021-09-24 12:01] LABS: Ferritin 3363.7 ng/mL (8-388)
--- NOTE | 2021-09-24 13:02 | P.PN ---
Date of Service: 09/24/21 Subjective: pain better controlled with PO dilaudid and IV for breakthrough, reports continued improvement no new / worsening symptoms, no abdominal pain, no diarrhea, no constipation, no vision changes ROS: 10 point ROS as noted above, otherwise negative Physical exam GEN: Alert, oriented HEENT: Normal conjunctiva, EOMI CV: Regular rate and rhythm, no edema Pulm: Non-labored respirations on room air ABD: Soft, nondistended, nontender Integumentary: no rash / no lesion Neuro: Normal speech, normal affect Problem List Sickle cell pain /crisis h/o PE, on eliquis elevated LFTs chronic leukocytosis, acute elevation likely reactive. blood grew CONS in only 1 bottle, afebrile - felt to be a contaminant. Initially received rocephin for empiric coverage, Vanc added due to blood culture prelim. Vanc (09/17-09/19), Rocephin (09/16- 09/21) Pain slowly improving, transitioned to PO dilaudid QID from TID on 09/23 still requiring iv breakthrough - weaned down to 0.5mg q4h patient reports 8-10/10 pain at times between PO dosing H/H, retic count stable no new pains / worsening of pain LFTs uptrending now no RUQ pain, no symptoms RUQ U/S to eval liver / gallbladder, prior CT 07/2021 with cholelithiasis check iron studies, may contribute if significantly elevated r/o hepatitis increased LFTs may be secondary to rocephin/vanc she received earlier in hospitalization. much less likely - from Eliquis, reported in ~1% of patients on eliquis; she has been on eliquis for quite some time, was initially held but restarted 09/19 VTE: eliquis Code: full Dispo: home, ~2 days Time Spent Managing Pts Care (In Minutes): 35
--- NOTE | 2021-09-24 18:09 | RAD REPORT ---
EXAM DESCRIPTION: US - Abdomen Exam Complete - 09/24/2021 5:52 pm CLINICAL HISTORY: Abdominal pain/elevated liver function test enzymes COMPARISON: July 2021 cat scan FINDINGS: The liver is enlarged with a normal echotexture Multiple gallstones. The gallbladder wall is upper limits normal thickness. The biliary tree is leslye l caliber. The pancreas is normal in size and echotexture The right kidney measures 11 centimeters with a normal echotexture. The left kidney measures 10 centimeters with a normal echotexture. The spleen is small and poorly visualized The abdominal aorta and inferior vena cava appear unremarkable IMPRESSION: Cholelithiasis Hepatomegaly
[2021-09-25] MEDS: HYDROMORPHONE ORAL 4 MG TAB PO SCH ×3 (02:19→18:38)
[2021-09-25] MEDS: HYDROMORPHONE HCL 1 MG/ML INJ IV PRN ×6 (03:35→23:19)
[2021-09-25] MEDS: PROMETHAZINE INJ 25 MG/ML AMP IV PRN ×6 (03:37→23:18)
[2021-09-25 05:41] LABS: Absolute Lymphocytes (CBC) 5.1 K/uL (0.7-4.9); Lymphocytes % 22.3 % (15.3-44.8); MPV 8.3 fL (7.6-11.3); RBC Red Blood Cell Count 2.22 M/uL (3.86-4.86)
[2021-09-25 05:48] LABS: Hematocrit 20.6 % (36.0-45.0)
[2021-09-25 05:55] LABS: Albumin 3.9 g/dL (3.4-5.0); Bilirubin Direct 0.9 mg/dL (0-0.2); Bilirubin Total 3.9 mg/dL (0.2-1.0); Potassium 4.5 mmol/L (3.5-5.1); Protein, Total 7.5 g/dL (6.4-8.2)
--- NOTE | 2021-09-25 06:33 | P.PN ---
Date of Service: 09/25/21 Subjective: generalized pain improving, no abd pain/tenderness no new or worsening symptoms ROS: 10 point ROS as noted above, otherwise negative Physical exam GEN: Alert, oriented HEENT: mild scleral icterus CV: Regular rate and rhythm, no edema Pulm: Non-labored respirations on room air ABD: Soft, nondistended, nontender Integumentary: no rash / no lesion Neuro: Normal speech, normal affect Problem List Sickle cell pain /crisis h/o PE, on eliquis elevated LFTs chronic leukocytosis, acute elevation likely reactive. blood grew CONS in only 1 bottle, afebrile - felt to be a contaminant. Initially received rocephin for empiric coverage, Vanc added due to blood culture prelim. Vanc (09/17-09/19), Rocephin (09/16- 09/21) Pain slowly improving, transitioned to PO dilaudid QID from TID on 09/23 still requiring iv breakthrough - weaned down to 0.5mg q4h patient reports 8-10/10 pain at times between PO dosing H/H, retic count stable no new pains / worsening of pain LFTs uptrending now no RUQ pain, no symptoms check iron studies, may contribute if significantly elevated RUQ U/S: hepatomegaly, +cholelithiasis, borderline GB wall thickening, prior CT 07/2021 with cholelithiasis r/o hepatitis, panel sent increased LFTs may be secondary to rocephin/vanc she received earlier in hospitalization. much less likely - from Eliquis, reported in ~1% of patients on eliquis; she has been on eliquis for quite some time, was initially held but restarted 09/19 MRCP ordered 09/25, r/o small stone in CBD GI consulted VTE: eliquis Code: full Dispo: home, ~2 days Time Spent Managing Pts Care (In Minutes): 35
[2021-09-25 07:20] LABS: Anisocytosis 1+; Blood Morphology Comment NOTED (NOT SEEN); Platelet Estimate INCR; Platelets, Giant FEW; Polychromasia 2+; Target Cells 1+
[2021-09-25 07:33] LABS: RBC Red Blood Cell Count 2.07 M/uL (3.86-4.86)
[2021-09-25] MEDS: DIPHENHYDRAMINE 50 MG/ML VIAL IV PRN ×3 (07:44→23:17)
[2021-09-25] MEDS: DOCUSATE NA 100 MG CAP PO SCH (11:03)
[2021-09-25] MEDS: APIXABAN 2.5 MG TABLET PO SCH ×2 (11:03→19:56)
--- NOTE | 2021-09-25 13:53 | RAD REPORT ---
EXAM DESCRIPTION: MRI - Cholangiogram - 09/25/2021 1:45 pm CLINICAL HISTORY: r/o choledocho Abdominal pain. COMPARISON: Abdomen Exam Complete dated 09/24/2021 FINDINGS: Three-dimensional MRCP was performed using maximum intensity projection reconstruction on the same work station. No intrahepatic biliary tree dilatation is seen. The common bile duct is normal caliber without evide nce of retained stone, stricture or mass. The pancreatic duct is not pathologically dilated. Cholelithiasis. Limited T2 sequences through the abdomen demonstrates no bulky adenopathy, significant free fluid or abscess. IMPRESSION: Cholelithiasis. No common bile duct stone or biliary dilatation.
[2021-09-26] MEDS: HYDROMORPHONE ORAL 4 MG TAB PO SCH ×3 (02:08→18:23)
[2021-09-26] MEDS: HYDROMORPHONE HCL 1 MG/ML INJ IV PRN ×5 (03:30→20:18)
[2021-09-26] MEDS: PROMETHAZINE INJ 25 MG/ML AMP IV PRN ×5 (03:31→20:19)
[2021-09-26 05:22] LABS: Absolute Lymphocytes (CBC) 5.5 K/uL (0.7-4.9); Lymphocytes % 24.7 % (15.3-44.8); MPV 8.2 fL (7.6-11.3); RBC Red Blood Cell Count 2.16 M/uL (3.86-4.86)
[2021-09-26 05:28] LABS: Hematocrit 20.1 % (36.0-45.0)
[2021-09-26 05:49] LABS: Albumin 3.9 g/dL (3.4-5.0); Bilirubin Total 3.3 mg/dL (0.2-1.0); Protein, Total 7.7 g/dL (6.4-8.2)
[2021-09-26 05:50] LABS: Magnesium 2.1 mg/dL (1.8-2.4); Potassium 4.6 mmol/L (3.5-5.1)
[2021-09-26] MEDS: DOCUSATE NA 100 MG CAP PO SCH (07:49)
[2021-09-26] MEDS: APIXABAN 2.5 MG TABLET PO SCH ×2 (07:49→20:19)
[2021-09-26] MEDS: DIPHENHYDRAMINE 50 MG/ML VIAL IV PRN ×2 (08:00→16:34)
--- NOTE | 2021-09-26 16:41 | P.PN ---
Subjective Date of Service: 09/26/21 Chief Complaint: Bodily pains Patient reports she is feeling about the same as yesterday. She reports generalized joint pains. She has been afebrile. Oral intake is good. Physical Examination - Vital Signs Temperature: 98.4 F Blood Pressure: 108/63 Pulse: 87 Respirations: 18 Pulse Ox (%): 96 - Physical Exam General: Alert, In no apparent distress, Oriented x3 HEENT: Mucous membr. moist/pink, EOMI, Sclerae nonicteric Neck: JVD not distended Respiratory: Clear to auscultation bilaterally, Normal air movement Cardiovascular: No edema, Regular rate/rhythm, Normal S1 S2, No murmurs Gastrointestinal: Normal bowel sounds, Soft and benign, Non-distended, No tenderness Musculoskeletal: No swelling, No tenderness Integumentary: No rashes, No erythema, No cyanosis Neurological: Normal speech, Normal strength at 5/5 x4 extr, Cranial nerves 3-12 intact Assessment And Plan - Current Problems (Diagnosis) (1) Sickle cell pain crisis Current Visit: No Status: Acute (2) History of pulmonary embolism Current Visit: No Status: Chronic (3) Leucocytosis Current Visit: No Status: Chronic Qualifiers: Leukocytosis type: unspecified Qualified Code(s): D72.829 - Elevated white blood cell count, unspecified - Plan Leukocytosis significantly up and not improving. Hypernatremia resolved. High reticulocyte count. LDH is elevated along with elevated LFT. LFTs trending down. Patient with suspected hemolytic crisis. Leukocytosis likely reactive. MRCP shows cholelithiasis, no CBD stone. Patient completed 5 days of IV Rocephin and a few days of IV vancomycin. Given persistent leukocytosis will treat empirically with oral Augmentin. Continue supportive measures with IV dbcwdvhdd-wheo-sbzipe saline, IV opioids as needed for pain. 1 blood culture bottle growing gram-positive cocci in clusters. Repeat blood culture: No growth. GI consulted for elevated liver enzymes. Case discussed with hematology oncology; Dr. Fulton. Given elevated LDH patient m ay be experiencing ongoing hemolytic crisis. Hemoglobin is stable around 7. Monitor BMP and CBC Continue Eliquis for history of pulm embolism.
--- NOTE | 2021-09-26 18:02 | RAD REPORT ---
EXAM DESCRIPTION: RAD - Chest Single View - 09/26/2021 5:42 pm CLINICAL HISTORY: Sickle cell with leukocytosis. Chest pain. COMPARISON: Chest Single View dated 09/15/2021; Chest Single View dated 07/09/2021; Chest Single View d ated 07/05/2021; Chest Single View dated 06/30/2021 FINDINGS: Portable technique limits examination quality. The lungs are grossly clear. The heart is normal in size. No displaced fractures.A port catheter has tip at the SVC/right atrial junction. IMPRESSION: No acute intrathoracic process suspected.
[2021-09-27] MEDS: PROMETHAZINE INJ 25 MG/ML AMP IV PRN ×6 (00:15→21:16)
[2021-09-27] MEDS: DIPHENHYDRAMINE 50 MG/ML VIAL IV PRN ×3 (00:17→17:11)
[2021-09-27] MEDS: HYDROMORPHONE HCL 1 MG/ML INJ IV PRN ×6 (00:18→21:09)
[2021-09-27] MEDS: HYDROMORPHONE ORAL 4 MG TAB PO SCH ×3 (02:01→18:15)
[2021-09-27 05:31] LABS: Absolute Lymphocytes (CBC) 8.1 K/uL (0.7-4.9); Hematocrit 21.6 % (36.0-45.0); Lymphocytes % 31.8 % (15.3-44.8); MPV 8.7 fL (7.6-11.3)
[2021-09-27 05:57] LABS: Albumin 3.8 g/dL (3.4-5.0); Bilirubin Total 3.1 mg/dL (0.2-1.0); Protein, Total 7.6 g/dL (6.4-8.2)
[2021-09-27 05:58] LABS: Potassium 4.1 mmol/L (3.5-5.1)
[2021-09-27] MEDS: DOCUSATE NA 100 MG CAP PO SCH (09:10)
[2021-09-27] MEDS: APIXABAN 2.5 MG TABLET PO SCH ×2 (09:10→20:14)
[2021-09-27] MEDS: NA CHLORIDE 0.9% 1,000 ML IV SCH ×2 (13:52→22:01)
--- NOTE | 2021-09-27 18:03 | P.PN ---
Subjective Date of Service: 09/27/21 Chief Complaint: Bodily pains No major changes from yesterday. She has been afebrile. Oral intake is good. She denies any loss of appetite. She denies any abdominal pain or shortness of breath. Physical Examination - Vital Signs Temperature: 97.7 F Blood Pressure: 101/51 Pulse: 86 Respirations: 18 Pulse Ox (%): 95 - Physical Exam General: Alert, In no apparent distress, Oriented x3 HEENT: Mucous membr. moist/pink Neck: JVD not distended Respiratory: Clear to auscultation bilaterally, Normal air movement Cardiovascular: No edema, Regular rate/rhythm, Normal S1 S2 Gastrointestinal: Normal bowel sounds, Soft and benign, Non-distended, No tenderness Musculoskeletal: No swelling, No tenderness Integumentary: No rashes, No cyanosis Neurological: Normal strength at 5/5 x4 extr Assessment And Plan - Current Problems (Diagnosis) (1) Sickle cell pain crisis Current Visit: No Status: Acute (2) History of pulmonary embolism Current Visit: No Status: Chronic (3) Leucocytosis Current Visit: No Status: Chronic Qualifiers: Leukocytosis type: unspecified Qualified Code(s): D72.829 - Elevated white blood cell count, unspecified - Plan Leukocytosis significantly up and not improving. Hypernatremia resolved. High reticulocyte count. LDH is elevated along with elevated LFT. LFTs trending down though. Patient with suspected hemolytic crisis. Leukocytosis likely reactive. MRCP shows cholelithiasis, no CBD stone. Patient completed 5 days of IV Rocephin and a few days of IV vancomycin. Given persistent leukocytosis will treat empirically with oral Augmentin. Repeat UA to evaluate for hemolysis and UTI Continue supportive measures with IV zsxbkaocx-mrxe-xnpqis saline, IV opioids as needed for pain. 1 blood culture bottle growing gram-positive cocci in clusters. Repeat blood culture: No growth. GI consulted for elevated liver enzymes. Hepatitis labs ordered. Case discussed with hematology oncology; Dr. Fulton. Given elevated LDH patient may be experiencing ongoing hemolytic crisis. Hemoglobin is stable around 7. Monitor BMP and CBC and LDH. Continue Eliquis for history of pulm embolism.
[2021-09-27] MEDS: AMOX/K CLAV 875 MG TAB PO SCH (20:13)
[2021-09-28] MEDS: DIPHENHYDRAMINE 50 MG/ML VIAL IV PRN ×3 (01:00→16:54)
[2021-09-28] MEDS: HYDROMORPHONE HCL 1 MG/ML INJ IV PRN ×6 (01:01→20:33)
[2021-09-28] MEDS: PROMETHAZINE INJ 25 MG/ML AMP IV PRN ×6 (01:02→20:33)
[2021-09-28] MEDS: HYDROMORPHONE ORAL 4 MG TAB PO SCH ×3 (01:48→18:00)
[2021-09-28] MEDS: NA CHLORIDE 0.9% 1,000 ML IV SCH ×3 (04:58→20:39)
[2021-09-28 05:45] LABS: Absolute Lymphocytes (CBC) 7.7 K/uL (0.7-4.9); Hematocrit 23.1 % (36.0-45.0); Lymphocytes % 35.9 % (15.3-44.8); MPV 7.9 fL (7.6-11.3); RBC Red Blood Cell Count 2.33 M/uL (3.86-4.86)
[2021-09-28 06:03] LABS: Potassium 4.2 mmol/L (3.5-5.1)
[2021-09-28 08:19] LABS: Anisocytosis 2+; Blood Morphology Comment NOTED (NOT SEEN); Platelet Estimate INCR
[2021-09-28 08:20] LABS: Hypochromasia 1+; Ovalocytes 1+; Polychromasia 2+; Target Cells 1+
[2021-09-28] MEDS: APIXABAN 2.5 MG TABLET PO SCH ×2 (09:02→20:33)
[2021-09-28] MEDS: DOCUSATE NA 100 MG CAP PO SCH (09:02)
[2021-09-28] MEDS: AMOX/K CLAV 875 MG TAB PO SCH ×2 (09:02→20:32)
--- NOTE | 2021-09-28 13:17 | P.PN ---
Subjective Date of Service: 09/28/21 Chief Complaint: Bodily pains Patient reports feeling better today She has been afebrile. Oral intake is good. Physical Examination - Vital Signs Temperature: 97.5 F Blood Pressure: 105/57 Pulse: 81 Respirations: 18 Pulse Ox (%): 95 - Physical Exam General: Alert, In no apparent distress, Oriented x3 HEENT: Mucous membr. moist/pink, Sclerae nonicteric Neck: JVD not distended Respiratory: Clear to auscultation bilaterally, Normal air movement Cardiovascular: No edema, Regular rate/rhythm, Normal S1 S2 Gastrointestinal: Soft and benign, Non-distended, No tenderness Musculoskeletal: No swelling, No tenderness Integumentary: No rashes, No erythema, No cyanosis Neurological: Normal strength at 5/5 x4 extr Assessment And Plan - Current Problems (Diagnosis) (1) Sickle cell pain crisis Current Visit: No Status: Acute (2) History of pulmonary embolism Current Visit: No Status: Chronic (3) Leucocytosis Current Visit: No Status: Chronic Qualifiers: Leukocytosis type: unspecified Qualified Code(s): D72.829 - Elevated white blood cell count, unspecified - Plan Leukocytosis trending down. High reticulocyte count. LDH is elevated along with elevated LFT. LFTs and LDH trending down though. Patient with suspected hemolytic crisis. Hopefully labs are on a downtrend. MRCP shows cholelithiasis, no CBD stone. Patient completed 5 days of IV Rocephin and a few days of IV vancomycin. Given persistent leukocytosis, continue with oral Augmentin. Repeat UA to evaluate for hemolysis and UTI Continue supportive measures with IV opgxcqzdj-yexi-asrsat saline, IV opioids as needed for pain. 1 blood culture bottle growing gram-positive cocci in clusters. Repeat blood culture: No growth. GI consulted for elevated liver enzymes. Tumor markers pending. Case discussed with hematology oncology; Dr. Fulton. Given elevated LDH patient may be experiencing ongoing hemolytic crisis. Hemoglobin has been stable. Aggressive IV hydration Monitor BMP and CBC and LDH. Continue Eliquis for history of pulm embolism. Planning to discharge once significant improvement seen in LDH, LFT and leukocytosis.
[2021-09-28 21:11] LABS: Urine Appearance Clear (Clear); Urine Bilirubin Negative (Negative); Urine Blood Negative (Negative); Urine Color Yellow (Yellow); Urine Glucose Negative (Negative); Urine Microscopic Reflex NO UMIC; Urine Protein Negative (Negative); Urine Specific Gravity 1.015 (1.005-1.030); Urine Urobilinogen 0.2 mg/dL (0.2-1.0)
[2021-09-29] MEDS: PROMETHAZINE INJ 25 MG/ML AMP IV PRN ×5 (00:30→20:34)
[2021-09-29] MEDS: HYDROMORPHONE HCL 1 MG/ML INJ IV PRN ×5 (00:30→20:33)
[2021-09-29] MEDS: DIPHENHYDRAMINE 50 MG/ML VIAL IV PRN ×3 (00:30→20:48)
[2021-09-29] MEDS: HYDROMORPHONE ORAL 4 MG TAB PO SCH ×3 (02:29→18:00)
[2021-09-29] MEDS: NA CHLORIDE 0.9% 1,000 ML IV SCH ×3 (05:08→20:35)
[2021-09-29] MEDS: AMOX/K CLAV 875 MG TAB PO SCH ×2 (08:30→20:35)
[2021-09-29] MEDS: DOCUSATE NA 100 MG CAP PO SCH (08:31)
[2021-09-29] MEDS: APIXABAN 2.5 MG TABLET PO SCH ×2 (08:31→20:35)
[2021-09-29 11:12] LABS: Absolute Lymphocytes (CBC) 8.1 K/uL (0.7-4.9); Hematocrit 23.1 % (36.0-45.0); Lymphocytes % 41.5 % (15.3-44.8); MPV 7.8 fL (7.6-11.3); RBC Red Blood Cell Count 2.33 M/uL (3.86-4.86)
[2021-09-29 11:28] LABS: Potassium 3.5 mmol/L (3.5-5.1)
[2021-09-29 11:56] LABS: Platelet Estimate ADEQ
[2021-09-29 11:57] LABS: Anisocytosis 3+; Blood Morphology Comment NOTED (NOT SEEN); Macrocytosis 1+
[2021-09-29 15:57] LABS: Alpha Fetoprotein-Tumor Marker 2.7 ng/mL (<6.1)
--- NOTE | 2021-09-29 17:20 | P.PN ---
Subjective Date of Service: 09/29/21 Chief Complaint: Bodily pains Patient states he feels better today. No reported fever. She denies abdominal pain or shortness of breath. She is ambulatory. Physical Examination - Vital Signs Temperature: 97.9 F Blood Pressure: 135/79 Pulse: 84 Respirations: 18 Pulse Ox (%): 97 - Physical Exam General: Alert, In no apparent distress HEENT: Mucous membr. moist/pink Neck: JVD not distended Respiratory: Clear to auscultation bilaterally, Normal air movement Cardiovascular: No edema, Regular rate/rhythm, Normal S1 S2 Gastrointestinal: Soft and benign, Non-distended, No tenderness Musculoskeletal: No swelling Integumentary: No rashes Neurological: Normal strength at 5/5 x4 extr Assessment And Plan - Current Problems (Diagnosis) (1) Sickle cell pain crisis Current Visit: No Status: Acute (2) History of pulmonary embolism Current Visit: No Status: Chronic (3) Leucocytosis Current Visit: No Status: Chronic Qualifiers: Leukocytosis type: unspecified Qualified Code(s): D72.829 - Elevated white blood cell count, unspecified - Plan Leukocytosis continue to trend down along with LDH. High reticulocyte count. LFT elevated but trending down. Patient with suspected hemolytic crisis. MRCP shows cholelithiasis, no CBD stone. Patient completed 5 days of IV Rocephin and a few days of IV vancomycin. Given persistent leukocytosis, restarted on oral Augmentin. Repeat UA suggestive for UTI but no evidence of hemolysis. Urine culture grew mixed hillary. Continue supportive measures with IV azknntqro-nixb-vkmkwj saline, IV opioids as needed for pain. 1 blood culture bottle growing gram-positive cocci in clusters. Repeat blood culture: No growth. GI consulted for elevated liver enzymes. Tumor markers pending. Case discussed with hematology oncology; Dr. Fulton. Given elevated LDH patient may be experiencing ongoing hemolytic crisis. Hemoglobin has been stable. Continue aggressive IV hydration Monitor BMP and CBC and LDH. Continue Eliquis for history of pulm embolism.
[2021-09-30] MEDS: PROMETHAZINE INJ 25 MG/ML AMP IV PRN ×4 (00:12→12:00)
[2021-09-30] MEDS: HYDROMORPHONE HCL 1 MG/ML INJ IV PRN ×4 (00:14→12:00)
[2021-09-30] MEDS: HYDROMORPHONE ORAL 4 MG TAB PO SCH ×2 (02:01→10:00)
[2021-09-30] MEDS: DIPHENHYDRAMINE 50 MG/ML VIAL IV PRN ×2 (04:14→12:00)
[2021-09-30] MEDS: NA CHLORIDE 0.9% 1,000 ML IV SCH ×2 (04:20→13:00)
[2021-09-30 05:34] VITALS: O2SAT 99
[2021-09-30 06:26] LABS: Absolute Lymphocytes (CBC) 7.3 K/uL (0.7-4.9); Lymphocytes % 38.1 % (15.3-44.8); RBC Red Blood Cell Count 1.99 M/uL (3.86-4.86)
[2021-09-30 06:31] LABS: Hematocrit 19.6 % (36.0-45.0)
[2021-09-30 06:46] LABS: Potassium 3.9 mmol/L (3.5-5.1)
[2021-09-30] MEDS ORDERED: POTASSIUM CL SA 10 MEQ TAB PO ONE (07:11)
[2021-09-30 07:29] LABS: Hematocrit 19.4 % (36.0-45.0)
[2021-09-30] MEDS: AMOX/K CLAV 875 MG TAB PO SCH (08:24)
[2021-09-30] MEDS: DOCUSATE NA 100 MG CAP PO SCH (08:24)
[2021-09-30] MEDS: APIXABAN 2.5 MG TABLET PO SCH (08:24)
--- NOTE | 2021-09-30 10:26 | P.DS ---
Admission Date: 09/15/21 Discharge Date: 09/30/21 Disposition: ROUTINE DISCHARGE Discharge Condition: FAIR Reason for Admission: Bodily pains - Problems (1) Sickle cell pain crisis Current Visit: No Status: Acute (2) History of pulmonary embolism Current Visit: No Status: Chronic (3) Leucocytosis Current Visit: No Status: Chronic Qualifiers: Leukocytosis type: unspecified Qualified Code(s): D72.829 - Elevated white blood cell count, unspecified Brief History of Present Illness: 31-year-old woman with a history of sickle cell disease presented emergency department with a complaint of chest pain and generalized bodily pain which wakes her up from sleep in the middle of the night. Patient presented to the ED where blood work shows elevated reticulocyte count, leukocytosis and anemia. Patient diagnosed with sickle cell crisis, supportive measures initiated with IV fluids and IV opiate as needed for pain. Patient admitted for further management. Hospital Course: Patient admitted to the medical floor and treated with supportive measures including IV normal saline, antiemetics and pain medications as needed. Patient developed severe leukocytosis, chest x-ray showed no infiltrate, initial UA no evidence of UTI. She was treated with empiric antibiotics briefly. Noted high reticulocyte count. LFT became elevated along with elevated LDH. Patient with suspected hemolytic crisis. MRCP down to evaluate the elevated liver enzyme showed cholelithiasis, no CBD stone. Patient completed 5 days of IV Rocephin and a few days of IV vancomycin due to leukocytosis. I suspect leukocytosis to be related to overestimated total white cell count due to presence of mutated immature red cells and also reactive bone marrow proliferation. Case was discussed with hematology-oncology Dr. Fulton who recommended hydration and supportive measures. Patient states that she has not tolerated hydroxyurea in the past due to suicidal thoughts. Repeat UA suggested the presence of UTI. Urine culture yielded mixed growth. Patient was started on oral Augmentin. Her LDH was elevated, UA showed normal urobilinogen or bilirubin to confirm hemolysis. Patient treated with aggressive IV fluid. LDH trended down. WBC also trended down. Patient noted to have iron overload with iron saturation of 79%. She was using IV hydromorphone and Benadryl [id number]. Suspected aberrant opioid use. 1 blood culture bottle growing gram-positive cocci in clusters. Repeat blood culture: No growth. GI consulted for elevated liver enzymes. Tumor markers -alpha-fetoprotein was within normal limits Continued Eliquis for history of pulm embolism. Vitals have been stable. Patient has been very functional, moving around in bed with ease, ambulatory, eating well. She is discharged to follow-up with her section hand Ana María. Plan of care, test results discussed with her and all questions answered. Patient plans to follow-up with her section hand next week. She is informed she will need repeat CBC next week. Vital Signs/Physical Exam: Temp Pulse Resp BP Pulse Ox 98.4 F 106 H 18 119/74 99 09/30/21 08:00 09/30/21 08:00 09/30/21 08:54 09/30/21 08:00 09/30/21 08:54 General: Alert, In no apparent distress, Oriented x3 HEENT: Mucous membr. moist/pink, Sclerae nonicteric Neck: JVD not distended Respiratory: Clear to auscultation bilaterally, Normal air movement Cardiovascular: No edema, Regular rate/rhythm, Normal S1 S2 Gastrointestinal: Soft and benign, Non-distended, No tenderness Musculoskeletal: No swelling, No tenderness Integumentary: No rashes, No erythema Neurological: Normal strength at 5/5 x4 extr Laboratory Data at Discharge: WBC 19.1 K/uL (4.3-10.9) H 09/30/21 06:15 Hgb 6.7 g/dL (12.0-15.0) L* 09/30/21 07:26 Hct 19.4 % (36.0-45.0) L* 09/30/21 07:26 Plt Count 444 K/uL (152-406) H 09/30/21 06:15 Sodium 141 mmol/L (136-145) 09/30/21 06:15 Potassium 3.9 mmol/L (3.5-5.1) 09/30/21 06:15 BUN 10 mg/dL (7-18) 09/30/21 06:15 Creatinine 0.47 mg/dL (0.55-1.3) L 09/30/21 06:15 Glucose 96 mg/dL (74-106) 09/30/21 06:15 Phosphorus 3.6 mg/dL (2.5-4.9) 09/19/21 03:05 Magnesium 2.1 mg/dL (1.8-2.4) 09/26/21 05:00 Total Bilirubin 3.1 mg/dL (0.2-1.0) H 09/27/21 04:46 AST 86 U/L (15-37) H 09/27/21 04:46 ALT 125 U/L (12-78) H 09/27/21 04:46 Alkaline Phosphatase 185 U/L (45-117) H 09/27/21 04:46 Home Medications: Folic Acid [Folic Acid*] 1 mg PO DAILY 08/01/12 Promethazine Tab [Phenergan*] 25 mg PO Q4H PRN #30 tab 11/15/19 ALPRAZolam [Xanax*] 1 mg PO BIDP PRN 09/30/20 Cholecalciferol (Vitamin D3) [Vitamin D 1000 Iu Tab*] 1,000 unit PO EVERY 7TH DAY 09/30/20 Apixaban [Eliquis *] 2.5 mg PO BID #60 tablet 12/21/20 Hydromorphone HCl [Dilaudid] 8 mg PO TID PRN 30 Days #60 tablet 12/21/20 clonazePAM [Klonopin*] 0.5 mg PO BID PRN #40 tab 07/05/21 Polyethyl Gly 3350 [Glycolax*] 17 gm PO DAILYPRN PRN #30 udbot 07/19/21 Amox/Clavulanate [Augmentin 875-125 Tab*] 875 mg PO BID #10 tab 09/30/21 New Medications: Amox/Clavulanate [Augmentin 875-125 Tab*] 875 mg PO BID #10 tab Diet: Regular Activity: Ad gina Followup: NONE,NONE [Primary Care Provider] - Time spent managing pt's care (in minutes): 38
[2021-09-30] MEDS ORDERED: HEPARIN SOD 100 UNIT/ML FLUSH IV PRN (11:00)
[2021-09-30] MEDS ORDERED: HEPARIN 500 UNIT/5 ML SYR IV PRN (12:00)
[2021-09-30 12:37] VITALS: BP 109/54; TEMP 97.5
== END 2021-09-30 13:20 | disposition home or self-care (01) | DRG 812 ==
LOC: ER 01:59 → ERHOLD 09:08 → 2ND 17:11
PROVIDERS: ADMIT Internal Medicine; ATTEND Internal Medicine
DX: D57.00 Hb-SS disease with crisis, unspecified (principal); N39.0 Urinary tract infection, site not specified; E87.0 Hyperosmolality and hypernatremia; D72.829 Elevated white blood cell count, unspecified; R79.89 Other specified abnormal findings of blood chemistry; K80.20 Calculus of gallbladder without cholecystitis without obstruction; Z86.711 Personal history of pulmonary embolism; Z79.01 Long term (current) use of anticoagulants; Z88.2 Allergy status to sulfonamides; Z20.822 Contact with and (suspected) exposure to COVID-19
CPT/HCPCS: 36415; 71045; 74181; 76700; 80048; 80053; 80074; 80202; 81003; 81015; 82103; 82105; 82248; 82390; 82728; 83010; 83540; 83615; 83735; 84100; 84443; 84466; 84484; 85014; 85018; 85025; 85027; 85044; 86038; 86255; 87040; 87086; 87088; 87205; 93005; 96361; 96374; 96375; 99285; J1170; J1200; J1642; J1650; J2550; J2930; J3370; J3475; J3490; J7030; J7040; J7050; U0003

== ENCOUNTER 2021-10-15 04:53 | Inpatient (IN) | payer OTHER ==
--- OUTSIDE RECORDS SUMMARY | 2021-10-15 04:58 | XMS REPORT | Continuity of Care Document ---
:1990 Author Organization [facility] t Address [address] [place] [address] Support Name Relationship Address Phone [address] [phone] [place] [address] [address] [place] [address] DENI Unavailable [address] [place] [phone] [place] [address] [place] [address] [address] [facility] [address] [phone] [place] [address] [place] [address] [address] [facility] [address] [place] [address] JORDAN Unavailable [phone] [facility] [phone] [place] [address] JORDAN Unavailable [phone] [facility] [phone] [place] [address] [address] [place] [address] CLINTON DELEON MD E Admitting Provider 17[address] [facility] [address] [place] [address] JESSICA SIDDIQUI Primary Care Physician [address] [facility] [address] [phone] [place] [address] VIJAYA MULLEN MD A Emergency Provider [address] [facility] [place] [address] NAIMA MULLEN Attending Provider [address] [place] [address] IZZY MULLEN, E Emergency Provider [address] [facility] [address] [place] [address] PHYSICIAN Primary Care Physician Unavailable Unavailab chrissy GRISSOM MD, MD Emergency Provider [address] [place] [address] OTHER, NAME IN NOTES Primary Care Physician Unavailable Sylvie vailable KIP MULLEN MD Emergency Provider [address] [place] [address] ISABELLA MULLEN MD MORE Admitting Provider [address] [place] [address] FRANCIS Primary Care Physician [address] [facility] [place] [address] MD AMRITA A Emergency Provider [facility] [place] [address] MD ADRIANA Emergency Provider Unavailable Unavailable MD STACY S Emergency Provider [address] [place] [address] MD AMAN Emergency Provider [phone] [place] [address] Care Team Providers Name Role Phone Shaikh PAZ, [facility] Primary Care Physician BRENDA Attending Clinician [...] [facility] is [facility] 00 [place] Pneumonia Pneumonia Disease Active [facility] 00 [place] 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 00:00: Medical [place] 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[facility] cell 2-28 [facility] crisis crisis 00:00: Medical 00 [place] Allergies, Adverse Reactions, Alerts Allergy Allergy Status Severity Reaction(s) Onset Inactive Treating Comm ents Source Name Type Date Date Clinician Ondanset Drug Active Nausea And [facility] Hcl Intolera Vomiting 2-28 [facility] (Pf) nce 00:[facility]: Medical 00 [place] morphine DA Active SV 2010-0 [facility] 3[facility]11 [place] [facility]: d [facility] TEGEDERM DA Active ID 2008-0 [facility] DRESSING 8-23 [place] [facility] Family History Family Member Diagnosis Comments Start Date Stop Date Source Natural mother Sickle cell trait [facility] Natural [facility] Natural brother Unremarkable [facility] Natural father Seizures [facility] Natural father Sickle cell trait [facility] Social History Social Habit Start Date Stop Date Quantity Comments Source Alcohol intake 2018-08-02 2018-08-[address] [facility] 00:[facility]00 00:00:00 non-drinker of Medical Ce nter alcohol (finding) Tobacco use and 2015-07-10 2015-07-[address] [facility] [address] [facility] exposure 00:00:00 00:00:00 [facility] Center Sex Assigned At [address] [facility] 00:[facility]00 [facility]00 [facility] Smoking Status Start Date Stop Date Source Never smoker [facility] Medications Ordered Filled Start Stop Current Ordering Indication Dosage Frequency Signature Comments Components Source Medication Medication Date Date Medication? Clinician (SIG) Name Name folic acid Yes folate 2mg QD Take [address] (FOLVITE) 1 3-31 deficiency by mouth [facility] MG tablet 14:39: daily. Medica l 58 Center penicillin 0 Yes 250mg Take [address] v potassium 3-31 mg by [facility] (VEETID) 14:39: mouth Medical 250 MG 58 every 12 Center tablet (twelve) hours. HYDROmorpho 2018-0 Yes 8mg Take [address] ne 3-31 by mouth [facility] (DILAUDID) 14:39: every 6 Medi rita 8 MG tablet 58 (six) Center hours as needed for Pain. apixaban 2018-0 Yes 2.5mg Q.5D Take 2.[address] (ELIQUIS) 3-31 mg by [facility] 2.5 mg Tab 14:39: mouth 2 Medi rita tablet 58 (two) Center times daily. ALPRAZolam 2018-0 Yes 1mg Take [address] (XANAX) 1 3-31 by mouth 2 Luke s MG tablet 14:39: (two) Medical 58 times Center daily as needed for Anxiety. folic acid 2019-0 Yes folate 2mg QD Take [address] (FOLVITE) 1 3-31 deficiency by mouth [facility] MG tablet 14:39: daily. Medica l 58 Center penicillin 2019-0 Yes 250mg Take [address] v potassium 3-31 mg by [facility]ukes (VEETID) 14:39: mouth Medical 250 MG 58 every 12 Center tablet (twelve) hours. HYDROmorpho 2019-0 Yes 8mg Take [address] ne 3-31 by mouth [facility] (DILAUDID) 14:39: every 6 Medi rita 8 MG tablet 58 (six) Center hours as needed for Pain. apixaban 2019-0 Yes 2.5mg Q.5D Take 2.[address] (ELIQUIS) 3-31 mg by [facility]ukes 2.5 mg Tab 14:39: mouth 2 Medi rita tablet 58 (two) Center times daily. ALPRAZolam 2019-0 Yes 1mg Take [address] (XANAX) 1 3-31 by mouth 2 Luke s MG tablet 14:39: (two) Medical 58 times Center daily as needed for Anxiety. folic acid 2018-0 Yes folate 2mg QD Take [address] (FOLVITE) 1 3-31 deficiency by mouth [facility] MG tablet 14:39: daily. Medica l 58 Center penicillin 2019-0 Yes 250mg Take [address] v potassium 3-31 mg by [facility]ukes (VEETID) 14:39: mouth Medical 250 MG 58 every 12 Center tablet (twelve) hours. HYDROmorpho 2019-0 Yes 8mg Take [address] ne 3-31 by mouth [facility] (DILAUDID) 14:39: every 6 Medi rita 8 MG tablet 58 (six) Center hours as needed for Pain. apixaban 2019-0 Yes 2.5mg Q.5D Take 2.[address] (ELIQUIS) 3-31 mg by [facility]ukes 2.5 mg Tab 14:39: mouth 2 Medi rita tablet 58 (two) Center times daily. ALPRAZolam 2019-0 Yes 1mg Take [address] (XANAX) 1 3-31 by mouth 2 Luke s MG tablet 14:39: (two) Medical 58 times Center daily as needed for Anxiety. folic acid 2019-0 Yes folate 2mg QD Take [address] (FOLVITE) 1 3-31 deficiency by mouth [facility] MG tablet 14:39: daily. Medica l 58 Center penicillin 2019-0 Yes 250mg Take [address] v potassium 3-31 mg by [facility]ukes (VEETID) 14:39: mouth Medical 250 MG 58 every 12 Center tablet (twelve) hours. HYDROmorpho 2019-0 Yes 8mg Take [address] ne 3-31 by mouth [facility] (DILAUDID) 14:39: every 6 Medi rita 8 MG tablet 58 (six) Center hours as needed for Pain. apixaban 2019-0 Yes 2.5mg Q.5D Take 2.[address] (ELIQUIS) 3-31 mg by [facility]ukes 2.5 mg Tab 14:39: mouth 2 Medi rita tablet 58 (two) Center times daily. ALPRAZolam 2019-0 Yes 1mg Take [address] (XANAX) 1 3-31 by mouth 2 Luke s MG tablet 14:39: (two) Medical 58 times Center daily as needed for Anxiety. folic acid 0 Yes folate 2mg QD Take [address] (FOLVITE) 1 3-31 deficiency by mouth [facility] MG tablet 14:39: daily. Medica l 58 Center penicillin 2019-0 Yes 250mg Take [address] v potassium 3-31 mg by [facility] (VEETID) 14:39: mouth Medical 250 MG 58 every 12 Center tablet (twelve) hours. HYDROmorpho 2019-0 Yes 8mg Take [address] ne 3-31 by mouth [facility] (DILAUDID) 14:39: every 6 Medi rita 8 MG tablet 58 (six) Center hours as needed for Pain. apixaban 2019-0 Yes 2.5mg Q.5D Take 2.[address] (ELIQUIS) 3-31 mg by [facility]ukes 2.5 mg Tab 14:39: mouth 2 Medi rita tablet 58 (two) Center times daily. ALPRAZolam 2019-0 Yes 1mg Take [address] (XANAX) 1 3-31 by mouth 2 Luke s MG tablet 14:39: (two) Medical 58 times Center daily as needed for Anxiety. VITAMIN D2 2019-0 Yes 1{capsu Q7D Take [address] 50,000 unit 2-25 le} capsule by [facility]ana kes capsule 00:00: mouth once Medi rita 00 a week. [place] VITAMIN D2 Yes 1{capsu Q7D Take [address] 50,000 unit 2-25 le} capsule by [facility]ana kes capsule 00:00: mouth once Medi rita 00 a week. [place] VITAMIN D2 Yes 1{capsu Q7D Take [address] 50,000 unit 2-25 le} capsule by [facility]ana kes capsule 00:00: mouth once Medi rita 00 a week. [place] VITAMIN D2 Yes 1{capsu Q7D Take [address] 50,000 unit 2-25 le} capsule by Ariana kes capsule 00:00: mouth once Medi rita 00 a week. [place] VITAMIN D2 Yes 1{capsu Q7D Take [address] 50,000 unit 2-25 le} capsule by Ariana kes capsule 00:00: mouth once Medi rita 00 a week. [place] PROAIR HFA Yes 1{puff} Inhale [address] 90 2-22 puff by [facility]ukes mcg/actuati 00:00: mouth via M edical on inhaler 00 inhaler Center every 6 (six) hours as needed. PROAIR HFA Yes 1{puff} Inhale [address] 90 2-22 puff by [facility]ukes mcg/actuati 00:00: mouth via M edical on inhaler 00 inhaler Center every 6 (six) hours as needed. PROAIR HFA Yes 1{puff} Inhale [address] 90 2-22 puff by Lukes mcg/actuati 00:00: mouth via M edical on inhaler 00 inhaler Center every 6 (six) hours as needed. PROAIR HFA Yes 1{puff} Inhale [address] 90 2-22 puff by Lukes mcg/actuati 00:00: mouth via M edical on inhaler 00 inhaler Center every 6 (six) hours as needed. PROAIR HFA Yes 1{puff} Inhale [address] 90 2-22 puff by Lukes mcg/actuati 00:00: mouth via M edical on inhaler 00 inhaler Center every 6 (six) hours as needed. prochlorper 2018- Yes 1{tbl} Take [address] azine 1-14 tablet by [facility]ukes (COMPAZINE) 00:00: mouth Medic al 10 MG 00 every 8 Center tablet (eight) hours as needed nausea. prochlorper 2019-0 Yes 1{tbl} Take [address] azine 1-14 tablet by [facility]ukes (COMPAZINE) 00:00: mouth Medic al 10 MG 00 every 8 Center tablet (eight) hours as needed nausea. prochlorper 2019-0 Yes 1{tbl} Take [address] azine 1-14 tablet by Lukes (COMPAZINE) 00:00: mouth Medic al 10 MG 00 every 8 Center tablet (eight) hours as needed nausea. prochlorper 2019-0 Yes 1{tbl} Take [address] azine 1-14 tablet by Lukes (COMPAZINE) 00:00: mouth Medic al 10 MG 00 every 8 Center tablet (eight) hours as needed nausea. prochlorper 2019-0 Yes 1{tbl} Take [address] azine 1-14 tablet by [facility]ukes (COMPAZINE) 00:00: mouth Medic al 10 MG 00 every 8 Center tablet (eight) hours as needed nausea. Procedures This patient has no known procedures. Plan of Care Planned Activity Planned Date Details Comments Source Future Scheduled 2021-01-11 INFLUENZA VACCINE (#1) [facility] 00:00:00 [code = INFLUENZA Medical Ce nter VACCINE (#1)] Future Scheduled 2021-01-11 INFLUENZA VACCINE (#1) [facility] 00:00:00 [code = INFLUENZA Medical Ce nter VACCINE (#1)] Future Scheduled 2020-05-[address] [facility] Test 00:00:00 (12+) [code = [facility] Center DEPRESSION SCREENING (12+)] Future Scheduled 2020-05-[address] [facility] Test 00:00:00 (12+) [code = Medical Center DEPRESSION SCREENING (12+)] Future Scheduled 2020-01-12 INFLUENZA VACCINE (#1) [facility] 00:00:00 [code = INFLUENZA Medical Ce nter VACCINE (#1)] Future Scheduled 2020-01-12 INFLUENZA VACCINE (#1) [facility] 00:00:00 [code = INFLUENZA Medical Ce nter VACCINE (#1)] Future Scheduled 2020-01-12 INFLUENZA VACCINE (#1) [facility] 00:00:00 [code = INFLUENZA Medical Ce nter VACCINE (#1)] Future Scheduled 2012-09-[address] [facility] 00:00:00 malignant neoplasm of Medica l Center cervix (procedure) [code = 288365364] Future Scheduled 2012-09-[address] [facility] Test 00:00:00 malignant neoplasm of Medica l Center cervix (procedure) [code = 350386899] Future Scheduled 2012-09-[address] [facility] Test 00:00:00 malignant neoplasm of Medica l Center cervix (procedure) [code = 402623431] Future Scheduled 2012-09-[address] [facility] Test 00:00:00 malignant neoplasm of Medica l Center cervix (procedure) [code = 757197642] Future Scheduled 2012-09-[address] [facility] Test 00:00:00 malignant neoplasm of Medica l Center cervix (procedure) [code = 621549481] Future Scheduled [address] [facility] Test 00:00:00 (procedure) [code = [facility] 16467902] Future Scheduled [address] [facility] Test 00:00:00 (procedure) [code = [facility] 02550178] Future Scheduled [address] [facility] Test 00:00:00 (procedure) [code = [facility] 49102840] Future Scheduled [address] [facility] Test 00:00:00 (procedure) [code = [facility] 32087449] Future Scheduled [address] [facility] Test 00:00:00 (procedure) [code = [facility] 92186226] Future Scheduled 2010-09-05 DTAP/TDAP/TD VACCINES [facility] 00:00:00 (1 - Tdap) [code = Medical C enter DTAP/TDAP/TD VACCINES (1 - Tdap)] Future Scheduled 2010-09-05 DTAP/TDAP/TD VACCINES [facility] 00:00:00 (1 - Tdap) [code = Medical C enter DTAP/TDAP/TD VACCINES (1 - Tdap)] Future Scheduled 2003 COVID-19 VACCINE (1) [facility] 00:00:00 [code = COVID-[address] VACCINE (1)] Future Scheduled 2003 COVID-19 VACCINE (1) [facility] 00:00:00 [code = COVID-[address] VACCINE (1)] Future Scheduled 1997-09-[address] [facility] Test 00:00:00 0-64 YRS (1 of 3 - Medical C enter PCV13) [code = PNEUMOCOCCAL VACCINE 0-64 YRS (1 of 3 - PCV13)] Future Scheduled 1997-09-[address] [facility] Test 00:00:00 0-64 YRS (1 of 3 - Medical C enter PCV13) [code = PNEUMOCOCCAL VACCINE 0-64 YRS (1 of 3 - PCV13)] Future Scheduled 1997-09-[address] [facility] Test 00:00:00 0-64 YRS (1 of 3 - Medical C enter PCV13) [code = PNEUMOCOCCAL VACCINE 0-64 YRS (1 of 3 - PCV13)] Future Scheduled 1997-09-[address] [facility] Test 00:00:00 0-64 YRS (1 of 4 - Medical C enter PCV13) [code = PNEUMOCOCCAL VACCINE 0-64 YRS (1 of 4 - PCV13)] Future Scheduled 1997-09-[address] [facility] Test 00:00:00 0-64 YRS (1 of 4 - Medical C enter PCV13) [code = PNEUMOCOCCAL VACCINE 0-64 YRS (1 of 4 - PCV13)] Encounters Start End Encounter Admission Attending Care Care Encounter Source Date/Time Date/Time Type Type Clinicians Facility Department ID 2021-06-05 2021-06-08 Inpatient E BRENDA, [facility] MED [id number] [facility] 04:10:00 13:24:00 AURORA 2021-06-03 2021-06-03 Emergency E SUNNY [facility] 7525 [facility] 02:02:00 14:43:00 RAHEL 2021-04-04 2021-04-04 Emergency E JENNIFER SHAH [facility] 7524 [facility] 02:21:00 06:06:00 2021-02-26 2021-03-04 Inpatient E AME [facility] 7523 [facility] 15:00:00 16:50:00 AAMIR 2021-02-18 2021-02-23 Inpatient E SAJJA, [facility] MED 7521 [facility] 16:11:00 16:32:00 AURORA [...] Time Test Comments Results Result Comments Source HEPATITIS C ANTIBODY 2021-09-26 11:45:17 Test Item Value Reference Range Interpretation Comme nts HEPATITIS C ANTIBODY (BEAKER) (test code = 367) Nonreactive Nonrea ctive Credit Consultant ID - DBHEPATITIS A ANTIBODY, [id number] 11:45:17 Test Item Value Reference Range Interpretation Comments HEPATITIS A IGM ANTIBODY (BEAKER) Nonreactive Nonreactive (test code = 498) Credit Consultant ID - DBHEPATITIS B CORE ANTIBODY, [id number] 11:45:17 Test Item Value Reference Range Interpretation Comments HEPATITIS B CORE TOTAL ANTIBODY Nonreactive Nonreactive (BEAKER) (test code = 497) Credit Consultant ID - DBHEPATITIS B SURFACE [id number] 11:45:12 Test Item Value Reference Range Interpretation Comments HEPATITIS B SURFACE ANTIGEN (2) Nonreactive Nonreactive (BEAKER) (test code = 2585) Specimen is considered negative for HBsAg.HEPATITIS PANEL, [id number] 19:51:14 Test Item Value Reference Range Interpretation Comments HEPATITIS A IGM ANTIBODY (BEAKER) Nonreactive Nonreactive (test code = 498) HEPATITIS B CORE IGM ANTIBODY Nonreactive Nonreactive (BEAKER) (test code = 645) HEPATITIS C ANTIBODY (BEAKER) Nonreactive Nonreactive (test code = 367) HEPATITIS B SURFACE ANTIGEN (2) Nonreactive Nonreactive (BEAKER) (test code = 2585) Credit Consultant ID - DBHEPATITIS A ANTIBODY, [id number] 19:51:14 Test Item Value Reference Range Interpretation Comments HEPATITIS A IGM ANTIBODY (BEAKER) Nonreactive Nonreactive (test code = 498) HEPATITIS B CORE ANTIBODY, [id number] 19:51:14 Test Item Value Reference Range Interpretation Comments HEPATITIS B CORE IGM ANTIBODY Nonreactive Nonreactive (BEAKER) (test code = 645) HEPATITIS B SURFACE [id number] 19:51:14 Test Item Value Reference Range Interpretation Comments HEPATITIS B SURFACE ANTIGEN (2) Nonreactive Nonreactive (BEAKER) (test code = 2585) Specimen is considered negative for HBsAg.HEPATITIS C [id number] 19:51:14 Test Item Value Reference Range Interpretation Comments HEPATITIS C ANTIBODY (BEAKER) Nonreactive Nonreactive (test code = 367) SARS-COV2/RT-PCR ([facility])2019-11-14 17:47:00 Test Item Value Reference Range Interpretation Comments SARS-COV2/RT-PCR (test code = Negative Not Detected, Negative [id number]) SARS-COV-2 PERFORMING LAB [facility] (test code = 1326901) Negative results do not preclude SARS-CoV-2 infection [...] of the Act.Fact Sheet for Healthcare Pro viders:https://www.CritiSense/Documents/Xpert%20Xpress%20SARS%20CoV-2/Fact%20Sh eets/3023802%05KAUA-XLK-6%20HEALTHCARE%20PROVIDERS%20FACT%20SHEET.pdfFact Sheet for Healthcare Patients:https://www.iHealthNetworks/Documents/Xpert%20Xpress%20SARS%20CoV-2/Fact%20Sheets/3023801%20SARS-COV -2%20PATIENT%20FACT%20SHEET.pdfPerforming Laboratory:[facility], [place] [address]PMP W/PLT COUNT & AUTO DIFFERENTIAL 2018-08-10 08:25:00 [...] 3438) Received comment: User comments: Slide comments:RETICULOCYTE [id number] 08:06:00 Test Item Value Reference Range Interpretation Comments RETICULOCYTE COUNT PCT (BEAKER) (test 25.0 % 0.5-1.7 H code = 575) CBC W/PLT COUNT & AUTO [id number] 09:27:00 Test Item Value Reference Range Interpretation [...] 3438) Received comment: User comments: Slide comments:RETICULOCYTE [id number] 05:01:00 Test Item Value Reference Range Interpretation Comments RETICULOCYTE COUNT PCT (BEAKER) (test 21.6 % 0.5-1.7 H code = 575) CBC W/PLT COUNT & AUTO [id number] 15:17:00 Test Item Value Reference Range Interpretation [...] H (BEAKER) (test code = 413) RETICULOCYTE [id number] 08:44:00 Test Item Value Reference Range Interpretation Comments RETICULOCYTE COUNT PCT (BEAKER) (test 23.8 % 0.5-1.7 H code = 575) BLOOD [id number] 14:01:00 Test Item Value Reference Range Interpretation Comments CULTURE (BEAKER) (test No growth in 5 days code = 1095) BLOOD [id number] 12:01:00 Test Item Value Reference Range Interpretation Comments CULTURE (BEAKER) (test No growth in 5 days code = 1095) CBC W/PLT COUNT & AUTO [id number] 11:38:00 Test Item Value Reference Range Interpretation [...] 3438) Received comment: User comments: Slide comments:RETICULOCYTE [id number] 07:44:00 Test Item Value Reference Range Interpretation Comments RETICULOCYTE COUNT PCT (BEAKER) (test 27.0 % 0.5-1.7 H code = 575) RETICULOCYTE [id number] 07:19:00 Test Item Value Reference Range Interpretation Comments RETICULOCYTE COUNT PCT (BEAKER) (test 22.7 % 0.5-1.7 H code = 575) CBC W/PLT COUNT & AUTO [id number] 12:07:00 Test Item Value Reference Range Interpretation [...] PLATELET CONCENTRATION Increased (CELLAVISION)(BEAKER) (test code = 6698) Received comment: User comments: Slide comments:RETICULOCYTE [id number] 06:14:00 Test Item Value Reference Range Interpretation Comments RETICULOCYTE COUNT PCT (BEAKER) (test 21.9 % 0.5-1.7 H code = 575) [id number] 06:02:00 Test Item Value Reference Range Interpretation Comments PHOSPHORUS (BEAKER) (test code = 3.8 mg/dL 2.3-4.7 604) [id number] 06:02:00 Test Item Value Reference Range Interpretation Comments MAGNESIUM (BEAKER) (test code = 1.8 mg/dL 1.6-2.6 627) BASIC METABOLIC [id number] 06:02:00 Test Item Value Reference Range Interpretation [...] Specimen moderately ictericCBC W/PLT COUNT & AUTO [id number] 09:09:00 Test Item Value Reference Range Interpretation [...] = 3438) Received comment: User comments: Slide comments:[id number] 04:11:00 Test Item Value Reference Range Interpretation Comments PHOSPHORUS (BEAKER) (test code = 3.3 mg/dL 2.3-4.7 604) [id number] 04:11:00 Test Item Value Reference Range Interpretation Comments MAGNESIUM (BEAKER) (test code = 1.6 mg/dL 1.6-2.6 627) BASIC METABOLIC [id number] 04:11:00 Test Item Value Reference Range Interpretation [...] FOR DIALYSIS PATIEN TS. Specimen slightly ictericRETICULOCYTE [id number] 03:54:00 Test Item Value Reference Range Interpretation Comments RETICULOCYTE COUNT PCT (BEAKER) (test 20.4 % 0.5-1.7 H code = 575) CBC W/PLT COUNT & AUTO [id number] 18:30:00 Test Item Value Reference Range Interpretation [...] = 413) CBC W/PLT COUNT & AUTO [id number] 10:51:00 Test Item Value Reference Range Interpretation [...] 3438) Received comment: User comments: Slide comments:RETICULOCYTE [id number] 10:08:00 Test Item Value Reference Range Interpretation Comments RETICULOCYTE COUNT PCT (BEAKER) (test 14.4 % 0.5-1.7 H code = 575) CBC W/PLT COUNT & AUTO [id number] 09:30:00 Test Item Value Reference Range Interpretation [...] = 3438) Received comment: User comments: Slide comments:[id number] 03:32:00 Test Item Value Reference Range Interpretation Comments PHOSPHORUS (BEAKER) (test code = 3.5 mg/dL 2.3-4.7 604) [id number] 03:32:00 Test Item Value Reference Range Interpretation Comments MAGNESIUM (BEAKER) (test code = 1.8 mg/dL 1.6-2.6 627) BASIC METABOLIC [id number] 03:32:00 Test Item Value Reference Range Interpretation [...] ictericCT, CHEST WITH IV CONTRAST- PE TEST [id number] 14:01:00FINAL REPORT CT scan of the chest. [...] MDReport Verified Date/Time: 08/02/2018 14:01:29 Reading Location: [place] [address]X [facility] Consult Reading Room URINALYSIS W/ REFLEX URINE [id number] 11:27:00 Test Item Value Reference Range Interpretation [...] 516) SOURCE(BEAKER) (test code = 2795) SCREEN, [id number] 11:15:00 Test Item Value Reference Range Interpretation Comments TEST URINE (BEAKER) (test Negative code = 583) RETICULOCYTE [id number] 04:43:00 Test Item Value Reference Range Interpretation Comments RETICULOCYTE COUNT PCT (BEAKER) (test 13.2 % 0.5-1.7 H code = 575) RAD, CHEST, 2 [id number] 03:54:00Reason for exam:->SICKLE CELL PAIN CRISISIs the [...] [place] MDReport Verified Date/Time: 08/02/2018 03:54:52Reading Location: [address] Reading Room CBC W/PLT COUNT & [...] (BEAKER) (test code = 417) COMPREHENSIVE METABOLIC [id number] 02:42:00 Test Item Value Reference Range Interpretation [...]
[2021-10-15] MEDS ORDERED: PROMETHAZINE INJ 25 MG/ML AMP ONE ×2 (05:39→07:29)
[2021-10-15] MEDS ORDERED: NA CHLORIDE 0.9% 50 ML ONE (05:40)
[2021-10-15] MEDS ORDERED: DIPHENHYDRAMINE 50 MG/ML VIAL ONE (05:40)
[2021-10-15] MEDS ORDERED: HYDROMORPHONE HCL 0.5 MG/0.5 ML INJ ONE ×2 (05:40→06:23)
[2021-10-15 05:50] LABS: Absolute Lymphocytes (CBC) 6.5 K/uL (0.7-4.9); Hematocrit 25.9 % (36.0-45.0); Lymphocytes % 40.8 % (15.3-44.8); MCV 98.2 fL (80-100); MPV 7.4 fL (7.6-11.3); RBC Red Blood Cell Count 2.64 M/uL (3.86-4.86)
[2021-10-15] MEDS ORDERED: Ringers Lactate 1,000 ML IV ONE ×2 (05:53→07:31)
[2021-10-15 06:00] LABS: Potassium 3.7 mmol/L (3.5-5.1)
[2021-10-15 06:25] LABS: Urine Blood Negative (Negative); Urine Glucose Negative (Negative); Urine Protein Negative (Negative)
--- NOTE | 2021-10-15 06:41 | EDPHYS ---
Physician Documentation [facility] Name: Gume Ortega Age: 31 yrs Sex: Female : 1990 Arrival Date: 10/15/2021 Time: 04:56 Bed 6 Private MD: ED Physician Miky Leahy HPI: 10/15 05:30 This 31 yrs old Black Female presents to ER via Ambulatory with complaints of Pain All ms3 Over. 05:30 31-year-old female with past medical history of sickle cell and pulmonary embolism ms3 presents for generalized body pain. Patient states her pain is severe. Patient denies alleviating or inciting factors.. Onset: The symptoms/episode began/occurred acutely, today. 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 - Social history:: Smoking status: Patient uses marijuana. ROS: 05:30 Constitutional: Negative for fever, and chills. Neck: Negative for injury, pain, and ms3 swelling, Cardiovascular: Negative for chest pain, and palpitations. Respiratory: Negative for shortness of breath, cough, wheezing, and pleuritic chest pain, Abdomen/GI: Negative for abdominal pain, nausea, vomiting, diarrhea, and constipation, Back: Negative for injury and pain, Skin: Negative for injury, rash, and discoloration. 05:30 MS/extremity: Positive for pain. 05:30 All other systems are negative. Exam: 05:30 Constitutional: This is a well developed, well nourished patient who is awake, alert, ms3 and in no acute distress. Head/Face: Normocephalic, atraumatic. Eyes: Pupils equal round and reactive to light, extra-ocular motions intact. Lids and lashes normal. Conjunctiva and sclera are non-icteric and not injected. Periorbital areas with no swelling, redness, or edema. Neck: Trachea midline, no cervical lymphadenopathy. Supple, full range of motion without nuchal rigidity, or vertebral point tenderness. No Meningismus. Chest/axilla: Normal chest wall appearance and motion. Nontender with no deformity. Cardiovascular: Regular rate and rhythm with a normal S1 and S2. No gallops, murmurs, or rubs. Normal PMI, no JVD. No pulse deficits. Respiratory: Lungs have equal breath sounds bilaterally, clear to auscultation and percussion. No rales, rhonchi or wheezes noted. No increased work of breathing, no retractions or nasal flaring. Abdomen/GI: Soft, non-tender, with normal bowel sounds. No distension or tympany. No guarding or rebound. No evidence of tenderness throughout. Skin: Warm, dry with normal turgor. Normal color with no rashes, no lesions, and no evidence of cellulitis. MS/ Extremity: Pulses equal, no cyanosis. Neurovascular intact. Full, normal range of motion. Psych: Awake, alert, with orientation to person, place and time. Behavior, mood, and affect are within normal limits. Vital Signs: 05:14 Weight 74.84 kg; Height 5 ft. 2 in. (157.48 cm); Pain 10/10; ke1 05:15 BP 126 / 90; Pulse 75; Resp 18; Temp 98.8(O); Pulse Ox 100% on R/A; Weight 74.84 kg; oe Height 5 ft. 2 in. (157.48 cm); Pain 10/10; 07:00 BP 98 / 56; Pulse 71; Resp 12 S; Pulse Ox 93% on 2 lpm NC; Pain 10/10; jg9 08:15 BP 101 / 50; Pulse 67; Resp 10 S; Pulse Ox 95% on 2 lpm NC; jg9 09:00 BP 115 / 78; Pulse 60; Resp 12 S; Pulse Ox 100% 2 lpm ; Pain 7/10; jg9 05:15 Body Mass Index 30.18 (74.84 kg, 157.48 cm) oe MDM: 05:14 Patient medically screened. ms3 05:30 Differential Diagnosis Sickle cell vs anemia . ms3 06:40 Data reviewed: vital signs, nurses notes, lab test result(s), and as a result, I will ms3 admit patient. Counseling: I had a detailed discussion with the patient and/or guardian regarding: the historical points, exam findings, and any diagnostic results supporting the discharge/admit diagnosis, lab results, the need for further work-up and treatment in the hospital. ED course: Discussed case with Dr eRdd and he accepts patient as inpatient admission. All questions answered. Discussed plan with patient and she agrees with plan. Patient states her pain remains an 810.. 10/15 05:29 Order name: CBC with Diff; Complete Time: 06:13 ms3 10/15 05:29 Order name: BMP; Complete Time: 06:13 ms3 10/15 05:29 Order name: Retic Count; Complete Time: 06:13 ms3 10/15 06:25 Order name: Urine --Ancillary (enter results) wm 10/15 06:25 Order name: Urine Dipstick-Ancillary; Complete Time: 06:36 EDMS 10/15 08:27 Order name: SARS-COV-2 RT PCR (Document "Date of Onset" if Symptomatic) eb 10/15 09:38 Order name: SARS-COV-2 RT PCR EDVT 10/15 05:29 Order name: Urine Dipstick-Ancillary (obtain specimen); Complete Time: 06:43 ms3 10/15 05:29 Order name: Urine Test (obtain specimen); Complete Time: 06:36 ms3 Administered Medications: 09:05 Discontinued: Lactated Ringers Solution 1000 ml IV at 150 ml/hr continuous jg9 05:32 Not Given (Other Intervention Used): Phenergan (promethazine) 25 mg IM once tw5 05:50 Drug: Dilaudid (HYDROmorphone) 1 mg Route: IVP; Site: Port-a-cath; tw5 07:21 Follow up: Response: No adverse reaction jg9 05:50 Drug: Benadryl (diphenhydrAMINE) 25 mg Route: IVP; Site: Port-a-cath; tw5 07:20 Follow up: Response: No adverse reaction jg9 05:50 Drug: Phenergan (promethazine) 12.5 mg Route: IVP; Site: Port-a-cath; tw5 07:15 Follow up: Response: No adverse reaction; Nausea is decreased jg9 05:50 Drug: Lactated Ringers Solution 1000 ml Route: IV; Rate: 4000 ml/hr; Site: Port-a-cath; tw5 07:33 Follow up: IV Status: Completed infusion; IV Intake: 1000ml jg9 06:21 Drug: Dilaudid (HYDROmorphone) 1 mg Route: IVP; Site: Port-a-cath; bb 07:20 Follow up: Response: No adverse reaction; Pain is unchanged, physician notified jg9 07:32 Drug: Phenergan (promethazine) 12.5 mg {Note: diluted in 10mL solution.} Route: IVP; jg9 Site: Other; 09:05 Follow up: Response: No adverse reaction; Nausea is decreased jg9 07:33 Drug: Dilaudid (HYDROmorphone) 1 mg {Note: RASS-0.} Route: IVP; Site: Other; jg9 09:05 Follow up: Response: No adverse reaction; Pain is decreased jg9 07:38 Drug: Lactated Ringers Solution 1000 ml Route: IV; Rate: 150 ml/hr; Site: Other; jg9 09:05 Follow up: IV Status: Order to discontinue infusion; IV Intake: 250ml jg9 Disposition Summary: 10/15/21 06:40 Hospitalization Ordered Hospitalization Status: Inpatient Admission ms3 Provider: Jas Redd ms3 [facility] ms3 Condition: Stable ms3 Problem: an acute exacerbation ms3 Symptoms: have improved ms3 Bed/Room Type: Standard ms3 Room Assignment: 221(10/15/21 12:52) dw Diagnosis - Other sickle-cell disorders with crisis, unspecified ms3 - Other specified anemias ms3 Forms: - Medication Reconciliation Form ms3 - SBAR form ms3 Signatures: Dispatcher [employer] Luz Elena Rodriguez RN RN dw Ballard, Brenda, RN RN bb Miky Leahy DO DO ms3 Judi Espinoza tw5 Mamta Vines RN RN jg9 Scooter Prescott RN RN ke1 Corrections: (The following items were deleted from the chart) 12:52 06:40 ms3 dw
--- NOTE | 2021-10-15 06:41 | ER ---
Nurse's Notes [facility] Name: Gume Ortega Age: 31 yrs Sex: Female : 1990 Arrival Date: 10/15/2021 Time: 04:56 Bed 6 Private MD: Diagnosis: Other sickle-cell disorders with crisis, unspecified;Other specified anemias Presentation: 10/15 05:11 Chief complaint: Patient states: i have sickle cell and i am hurting all over. ke1 Coronavirus screen: Vaccine status: Patient reports receiving the 1st dose of the Covid vaccine. Ebola Screen: No symptoms or risks identified at this time. Risk Assessment: Do you want to hurt yourself or someone else? Patient reports no desire to harm self or others. Onset of symptoms was October 15, 2021. 05:11 Method Of Arrival: Ambulatory [facility] 05:11 Acuity: MARILUZ 3 ke1 05:14 Initial Sepsis Screen: Does the patient meet any 2 criteria? No. Patient's initial [facility] sepsis screen is negative. Does the patient have a suspected source of infection? No. Patient's initial sepsis screen is negative. Triage Assessment: 05:14 General: Appears uncomfortable, Behavior is appropriate for age. Pain: Complains of ke1 pain in general body pain Pain currently is 10 out of 10 on a pain scale. at worst was 10 out of 10 on a pain scale. level that patient reports is acceptable is 5 out of 10 on a pain scale. 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 - Social history:: Smoking status: Patient uses marijuana. Screenin:16 Abuse screen: Denies threats or abuse. Nutritional screening: No deficits noted. ke1 Tuberculosis screening: No symptoms or risk factors identified. Fall Risk None identified. Assessment: 05:18 Reassessment: see triage. ke1 05:51 Pain: Complains of pain in "All over the body." Pain currently is 10 out of 10 on a tw5 pain scale. Cardiovascular: No deficits noted. Respiratory: No deficits noted. Vital Signs: 05:14 Weight 74.84 kg; Height 5 ft. 2 in. (157.48 cm); Pain 10/10; ke1 05:15 BP 126 / 90; Pulse 75; Resp 18; Temp 98.8(O); Pulse Ox 100% on R/A; Weight 74.84 kg; oe Height 5 ft. 2 in. (157.48 cm); Pain 10/10; 07:00 BP 98 / 56; Pulse 71; Resp 12 S; Pulse Ox 93% on 2 lpm NC; Pain 10/10; jg9 08:15 BP 101 / 50; Pulse 67; Resp 10 S; Pulse Ox 95% on 2 lpm NC; jg9 09:00 BP 115 / 78; Pulse 60; Resp 12 S; Pulse Ox 100% 2 lpm ; Pain 7/10; jg9 05:15 Body Mass Index 30.18 (74.84 kg, 157.48 cm) oe ED Course: 04:56 Patient arrived in ED. ja2 04:57 Miky Leahy DO is Attending Physician. ms3 05:04 Scooter Prescott, RN is Primary Nurse. ke1 05:12 Triage completed. ke1 05:16 Patient has correct armband on for positive identification. Bed in low position. Call [facility] light in reach. 05:16 No provider procedures requiring assistance completed. Accessed Port-a-Cath. by Judi hollis RN. 05:51 Pulse ox on. NIBP on. Door closed. Noise minimized. Lights dimmed. Moved to private tw5 room. Warm blanket given. Verbal reassurance given. 05:52 Retic Count Sent. tw5 05:52 BMP Sent. tw5 05:52 CBC with Diff Sent. tw5 05:52 Oxygen administration via nasal cannula \\T\\ 2L/min. tw5 06:38 Jas Redd is Hospitalizing Provider. ms3 07:00 Arm band placed on left wrist. jg9 09:10 SARS-COV-2 RT PCR (Document "Date of Onset" if Symptomatic) Sent. jg9 13:52 Patient admitted, IV remains in place. jg9 Administered Medications: 09:05 Discontinued: Lactated Ringers Solution 1000 ml IV at 150 ml/hr continuous jg9 05:32 Not Given (Other Intervention Used): Phenergan (promethazine) 25 mg IM once tw5 05:50 Drug: Dilaudid (HYDROmorphone) 1 mg Route: IVP; Site: Port-a-cath; tw5 07:21 Follow up: Response: No adverse reaction jg9 05:50 Drug: Benadryl (diphenhydrAMINE) 25 mg Route: IVP; Site: Port-a-cath; tw 07:20 Follow up: Response: No adverse reaction jg9 05:50 Drug: Phenergan (promethazine) 12.5 mg Route: IVP; Site: Port-a-cath; tw5 07:15 Follow up: Response: No adverse reaction; Nausea is decreased jg9 05:50 Drug: Lactated Ringers Solution 1000 ml Route: IV; Rate: 4000 ml/hr; Site: Port-a-cath; tw5 07:33 Follow up: IV Status: Completed infusion; IV Intake: 1000ml jg9 06:21 Drug: Dilaudid (HYDROmorphone) 1 mg Route: IVP; Site: Port-a-cath; bb 07:20 Follow up: Response: No adverse reaction; Pain is unchanged, physician notified jg9 07:32 Drug: Phenergan (promethazine) 12.5 mg {Note: diluted in 10mL solution.} Route: IVP; jg9 Site: Other; 09:05 Follow up: Response: No adverse reaction; Nausea is decreased jg9 07:33 Drug: Dilaudid (HYDROmorphone) 1 mg {Note: RASS-0.} Route: IVP; Site: Other; jg9 09:05 Follow up: Response: No adverse reaction; Pain is decreased jg9 07:38 Drug: Lactated Ringers Solution 1000 ml Route: IV; Rate: 150 ml/hr; Site: Other; jg9 09:05 Follow up: IV Status: Order to discontinue infusion; IV Intake: 250ml jg9 Medication: 05:51 VIS not applicable for this client. tw5 Intake: 07:33 IV: 1000ml; Total: 1000ml. jg9 09:05 IV: 250ml; Total: 1250ml. jg9 Outcome: 06:40 Decision to Hospitalize by Provider. ms3 13:51 Admitted to Med/surg accompanied by tech, via wheelchair, room 221, Report called to chad Ray RN 13:51 Condition: stable 13:52 Patient left the ED. jg9 Signatures: Korin Rosas, RN RN bb Herrera Baker Marcus, DO ms3 Dede Garrett Tiffany tw5 Mamta Vines RN RN jg9 Scooter Prescott RN RN ke1 Corrections: (The following items were deleted from the chart) 07:34 07:20 Response: No adverse reaction; Nausea is decreased jg9 jg9
[2021-10-15] MEDS ORDERED: HYDROMORPHONE HCL 1 MG/ML INJ ONE (07:30)
--- NOTE | 2021-10-15 08:30 | P.HP ---
Certification for Inpatient Patient admitted to: Inpatient With expected LOS: >2 Midnights Practitioner: I am a practitioner with admitting privileges, knowledge of patient current condition, hospital course, and medical plan of care. Services: Services provided to patient in accordance with Admission requirements found in Title 42 Section 412.3 of the Code of Federal Regulations Patient History Date of Service: 10/15/21 Allergies ondansetron HCl [From Zofran] Allergy (Mild, Verified 07/09/21 05:43) Nausea/Vomiting morphine Allergy (Verified 07/09/21 05:43) Nausea/Vomiting Sulfa (Sulfonamide Antibiotics) Allergy (Verified 07/09/21 05:43) Nausea/Vomiting Home Medications: Folic Acid [Folic Acid*] 1 mg PO DAILY 08/01/12 Promethazine Tab [Phenergan*] 25 mg PO Q4H PRN #30 tab 11/15/19 ALPRAZolam [Xanax*] 1 mg PO BIDP PRN 09/30/20 Cholecalciferol (Vitamin D3) [Vitamin D 1000 Iu Tab*] 1,000 unit PO EVERY 7TH DAY 09/30/20 Apixaban [Eliquis *] 2.5 mg PO BID #60 tablet 12/21/20 Hydromorphone HCl [Dilaudid] 8 mg PO TID PRN 30 Days #60 tablet 12/21/20 clonazePAM [Klonopin*] 0.5 mg PO BID PRN #40 tab 07/05/21 Polyethyl Gly 3350 [Glycolax*] 17 gm PO DAILYPRN PRN #30 udbot 07/19/21 Amox/Clavulanate [Augmentin 875-125 Tab*] 875 mg PO BID #10 tab 09/30/21 - Past Medical/Surgical History Diabetic: No -: sickle cell -: pneumonia -: blod clot left lung -: port-a-cath placement Psychosocial/ Personal History: Patient lives at home with her girlfriend - Family History Mother -: Other (see notes) Notes: sickle cell trait Father -: Other (see notes) Notes: sickle cell trait - Social History Alcohol use: No CD- Drugs: Yes Caffeine use: No Physical Examination - Studies Laboratory Data (last 24 hrs) 10/15/21 05:40: Sodium 142, Potassium 3.7, BUN 5 L, Creatinine 0.49 L, Glucose 101 10/15/21 05:40: WBC 16.0 H, Hgb 9.1 L, Hct 25.9 L, Plt Count 559 H Assessment and Plan - Advance Directives Does patient have a Living Will: No Does patient have a Durable POA for Healthcare: No
[2021-10-15] MEDS ORDERED: ONDANSETRON 4 MG/2 ML VIAL IV PRN (08:56)
[2021-10-15] MEDS ORDERED: ACETAMINOPHEN 500 MG TAB PO PRN (08:56)
[2021-10-15] MEDS ORDERED: HYDROMORPHONE HCL 1 MG/ML INJ IV PRN (08:56)
[2021-10-15] MEDS: NA CHLORIDE 0.9% 1,000 ML IV SCH ×2 (09:00→18:16)
[2021-10-15] MEDS: DIPHENHYDRAMINE 25 MG TAB/CAP PO PRN ×2 (12:00→14:50)
[2021-10-15] MEDS: HYDROMORPHONE HCL 1 MG/ML INJ IV PRN ×4 (12:00→22:14)
--- NOTE | 2021-10-15 12:07 | P.HP ---
Certification for Inpatient Patient admitted to: Inpatient With expected LOS: >2 Midnights Practitioner: I am a practitioner with admitting privileges, knowledge of patient current condition, hospital course, and medical plan of care. Services: Services provided to patient in accordance with Admission requirements found in Title 42 Section 412.3 of the Code of Federal Regulations Patient History Date of Service: 10/15/21 Reason for admission: General bodily pains History of Present Illness: 31-year-old with a history of sickle cell disease, multiple hospitalization for painful crisis presented to the emergency department with a complaint of uncontrolled generalized body pains with a concern for sickle cell crisis. Patient was hospitalized and discharged a couple of weeks ago for sickle cell painful crisis. She had a prolonged stay due to refractory leukocytosis and elevated LFT. Today patient has leukocytosis, elevated reticulocyte count, not hypoxic. No fever and does not meet criteria for sepsis. Her pain was uncontrolled in the ED and ED provider wishes to hospitalize her for further management. Allergies ondansetron HCl [From Zofran] Allergy (Mild, Verified 07/09/21 05:43) Nausea/Vomiting morphine Allergy (Verified 07/09/21 05:43) Nausea/Vomiting Sulfa (Sulfonamide Antibiotics) Allergy (Verified 07/09/21 05:43) Nausea/Vomiting Home Medications: Folic Acid [Folic Acid*] 1 mg PO DAILY 08/01/12 Promethazine Tab [Phenergan*] 25 mg PO Q4H PRN #30 tab 11/15/19 ALPRAZolam [Xanax*] 1 mg PO BIDP PRN 09/30/20 Cholecalciferol (Vitamin D3) [Vitamin D 1000 Iu Tab*] 1,000 unit PO EVERY 7TH DAY 09/30/20 Apixaban [Eliquis *] 2.5 mg PO BID #60 tablet 12/21/20 Hydromorphone HCl [Dilaudid] 8 mg PO TID PRN 30 Days #60 tablet 12/21/20 clonazePAM [Klonopin*] 0.5 mg PO BID PRN #40 tab 07/05/21 Polyethyl Gly 3350 [Glycolax*] 17 gm PO DAILYPRN PRN #30 udbot 07/19/21 Amox/Clavulanate [Augmentin 875-125 Tab*] 875 mg PO BID #10 tab 09/30/21 - Past Medical/Surgical History Has patient received pneumonia vaccine in the past: Yes Diabetic: No -: sickle cell -: pneumonia -: blood clot left lung -: port-a-cath placement Psychosocial/ Personal History: Patient lives at home with her girlfriend - Family History Mother -: Other (see notes) Notes: sickle cell trait Father -: Other (see notes) Notes: sickle cell trait - Social History Smoking Status: Current every day smoker Alcohol use: No CD- Drugs: No Caffeine use: No Review of Systems Other: Except as documented, all other systems reviewed and negative. Physical Examination - Physical Exam General: Alert, In no apparent distress, Oriented x3 HEENT: PERRLA, Mucous membr. moist/pink, Scleral icterus (Mild icterus) Neck: Supple, JVD not distended Respiratory: Clear to auscultation bilaterally, Normal air movement Cardiovascular: No edema, Regular rate/rhythm, Normal S1 S2 Capillary refill: <2 Seconds Gastrointestinal: Normal bowel sounds, Soft and benign, Non-distended, No tenderness Musculoskeletal: No swelling, No tenderness Integumentary: No rashes, No erythema, No cyanosis Neurological: Normal speech, Normal strength at 5/5 x4 extr Lymphatics: No axilla or inguinal lymphadenopathy - Studies Laboratory Data (last 24 hrs) 10/15/21 05:40: Sodium 142, Potassium 3.7, BUN 5 L, Creatinine 0.49 L, Glucose 101 10/15/21 05:40: WBC 16.0 H, Hgb 9.1 L, Hct 25.9 L, Plt Count 559 H Assessment and Plan - Problems (Diagnosis) (1) Sickle cell pain crisis Current Visit: No Status: Acute (2) History of pulmonary embolism Current Visit: No Status: Chronic (3) Leucocytosis Current Visit: No Status: Chronic Qualifiers: Leukocytosis type: unspecified Qualified Code(s): D72.829 - Elevated white blood cell count, unspecified - Plan Admit to the medical floor. Supportive measures with IV hydration with normal saline. Pain management as needed, antiemetics as needed. Obtain blood culture Continue Eliquis Monitor CBC to follow leukocytosis. Hematology oncology consulted. Plan is to discuss her multiple hospitalizations with her oncologist at [place] for her input. - Advance Directives Does patient have a Living Will: No Does patient have a Durable POA for Healthcare: No
[2021-10-15] MEDS ORDERED: DIPHENHYDRAMINE 25 MG TAB/CAP ONE (12:09)
[2021-10-15] MEDS: PROMETHAZINE INJ 25 MG/ML AMP IV PRN ×2 (18:25→22:14)
[2021-10-15] MEDS ORDERED: DIPHENHYDRAMINE 25 MG TAB/CAP PO PRN (18:29)
[2021-10-15] MEDS ORDERED: DIPHENHYDRAMINE 50 MG/ML VIAL IV PRN (19:20)
[2021-10-16] MEDS: PROMETHAZINE INJ 25 MG/ML AMP IV PRN ×6 (01:57→21:33)
[2021-10-16] MEDS: NA CHLORIDE 0.9% 1,000 ML IV SCH ×3 (01:58→17:15)
[2021-10-16] MEDS: HYDROMORPHONE HCL 1 MG/ML INJ IV PRN ×6 (01:59→21:29)
[2021-10-16] MEDS: DIPHENHYDRAMINE 50 MG/ML VIAL IV PRN ×4 (03:00→21:32)
[2021-10-16 04:49] LABS: Absolute Lymphocytes (CBC) 6.6 K/uL (0.7-4.9); Hematocrit 22.6 % (36.0-45.0); Lymphocytes % 39.7 % (15.3-44.8); MCV 97.5 fL (80-100); MPV 7.9 fL (7.6-11.3); RBC Red Blood Cell Count 2.32 M/uL (3.86-4.86)
[2021-10-16 04:59] LABS: Albumin 3.5 g/dL (3.4-5.0); Magnesium 1.8 mg/dL (1.8-2.4); Phosphorus 3.8 mg/dL (2.5-4.9); Protein, Total 6.4 g/dL (6.4-8.2)
[2021-10-16 05:02] LABS: Bilirubin Total 5.7 mg/dL (0.2-1.0)
[2021-10-16 11:14] VITALS: BMI 29.9
--- NOTE | 2021-10-16 17:15 | P.PN ---
Subjective Date of Service: 10/16/21 Chief Complaint: General bodily pains Patient reports no change in bodily pain. She is using the IV opioid [id number]. Physical Examination - Vital Signs Temperature: 98.0 F Blood Pressure: 106/51 Pulse: 82 Respirations: 16 Pulse Ox (%): 92 - Physical Exam General: Alert, In no apparent distress, Oriented x3 HEENT: Mucous membr. moist/pink Neck: JVD not distended Respiratory: Clear to auscultation bilaterally, Normal air movement Cardiovascular: No edema, Regular rate/rhythm, Normal S1 S2 Gastrointestinal: Soft and benign, Non-distended, No tenderness Musculoskeletal: No swelling Integumentary: No rashes Neurological: Normal strength at 5/5 x4 extr Assessment And Plan - Current Problems (Diagnosis) (1) Sickle cell pain crisis Current Visit: No Status: Acute (2) History of pulmonary embolism Current Visit: No Status: Chronic (3) Leucocytosis Current Visit: No Status: Chronic Qualifiers: Leukocytosis type: unspecified Qualified Code(s): D72.829 - Elevated white blood cell count, unspecified - Plan Continue supportive measures with IV hydration. Pain management as needed Antiemetic Monitor CBC Monitor renal function and LFTs. Noted elevated bilirubin but normal liver enzymes. Possible discharge in a.m.
[2021-10-17] MEDS: HYDROMORPHONE HCL 1 MG/ML INJ IV PRN ×6 (01:30→21:12)
[2021-10-17] MEDS: PROMETHAZINE INJ 25 MG/ML AMP IV PRN ×6 (01:31→21:15)
[2021-10-17] MEDS: DIPHENHYDRAMINE 50 MG/ML VIAL IV PRN ×4 (01:36→21:17)
[2021-10-17] MEDS: NA CHLORIDE 0.9% 1,000 ML IV SCH ×3 (01:36→17:39)
[2021-10-17 04:53] LABS: Absolute Lymphocytes (CBC) 6.2 K/uL (0.7-4.9); Hematocrit 21.8 % (36.0-45.0); Lymphocytes % 33.8 % (15.3-44.8); MCV 99.4 fL (80-100); MPV 7.9 fL (7.6-11.3); RBC Red Blood Cell Count 2.19 M/uL (3.86-4.86)
[2021-10-17 05:22] LABS: Albumin 3.1 g/dL (3.4-5.0); Bilirubin Direct 0.4 mg/dL (0-0.2); Bilirubin Total 4.3 mg/dL (0.2-1.0); Magnesium 1.7 mg/dL (1.8-2.4); Potassium 3.8 mmol/L (3.5-5.1); Protein, Total 5.7 g/dL (6.4-8.2)
[2021-10-17 05:36] LABS: Anisocytosis 1+; Blood Morphology Comment NOTED (NOT SEEN); Platelet Estimate INCR; Polychromasia 3+
--- NOTE | 2021-10-17 06:46 | P.PN ---
Date of Service: 10/17/21 Subjective: generalized pain, about the same no significant change getting IV dilaudid ROS: 10 point ROS as noted above, otherwise negative Physical exam GEN: Alert, oriented HEENT: normal conjunctiva, mild sclera icterus CV: Regular rate and rhythm, no edema Pulm: Non-labored respirations on room air ABD: Soft, nondistended, nontender Integumentary: no rash / no lesion Neuro: Normal speech, normal affect Problem List Sickle cell pain /crisis h/o PE, on eliquis hyperbilirubinemia h/o recent elevated LFTs chronic leukocytosis no focal symptom continue pain meds PRN retic count increased bili decreased continue IVF trend labs LFTs ok 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
[2021-10-17] MEDS ORDERED: POTASSIUM CL SA 10 MEQ TAB PO ONE (09:00)
[2021-10-17] MEDS ORDERED: MAGNESIUM SULFATE 1 gm IVPB 1 GM/100 ML BAG IV ONE (09:00)
[2021-10-18] MEDS: NA CHLORIDE 0.9% 1,000 ML IV SCH ×3 (01:08→17:46)
[2021-10-18] MEDS: HYDROMORPHONE HCL 1 MG/ML INJ IV PRN ×6 (01:09→21:31)
[2021-10-18] MEDS: PROMETHAZINE INJ 25 MG/ML AMP IV PRN ×6 (01:13→21:27)
[2021-10-18] MEDS: DIPHENHYDRAMINE 50 MG/ML VIAL IV PRN ×6 (01:18→21:32)
[2021-10-18 04:55] LABS: Absolute Lymphocytes (CBC) 4.6 K/uL (0.7-4.9); Lymphocytes % 28.1 % (15.3-44.8); MCV 100.9 fL (80-100); MPV 8.3 fL (7.6-11.3); RBC Red Blood Cell Count 2.05 M/uL (3.86-4.86)
[2021-10-18 05:11] LABS: Hematocrit 20.6 % (36.0-45.0)
[2021-10-18 05:21] LABS: Albumin 3.1 g/dL (3.4-5.0); Bilirubin Total 3.4 mg/dL (0.2-1.0); Magnesium 1.8 mg/dL (1.8-2.4); Protein, Total 5.8 g/dL (6.4-8.2)
--- NOTE | 2021-10-18 07:28 | P.PN ---
Date of Service: 10/18/21 Subjective: very severe painful episode this morning; was improving last night felt likes bones were breaking this morning - like she feels when bad sickle crisis generalized pain, not in particular area/location no abd pain ROS: 10 point ROS as noted above, otherwise negative Physical exam GEN: Alert, oriented HEENT: normal conjunctiva, mild sclera icterus CV: Regular rate and rhythm, no edema Pulm: Non-labored respirations on room air ABD: Soft, nondistended, nontender Integumentary: no rash / no lesion Neuro: Normal speech, normal affect Problem List Sickle cell pain /crisis h/o PE, on eliquis hyperbilirubinemia h/o recent elevated LFTs chronic leukocytosis, stable; afebrile no focal symptoms continue pain meds PRN retic count increased; stable hgb trend slowing down bili decreasing continue IVF trend labs LFTs ok 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
[2021-10-18] MEDS: APIXABAN 2.5 MG TABLET PO SCH ×2 (09:22→21:32)
[2021-10-19] MEDS: PROMETHAZINE INJ 25 MG/ML AMP IV PRN ×6 (01:17→21:27)
[2021-10-19] MEDS: HYDROMORPHONE HCL 1 MG/ML INJ IV PRN ×6 (01:20→21:26)
[2021-10-19] MEDS: DIPHENHYDRAMINE 50 MG/ML VIAL IV PRN ×6 (01:23→21:27)
[2021-10-19] MEDS: NA CHLORIDE 0.9% 1,000 ML IV SCH ×3 (01:25→17:40)
[2021-10-19 04:48] LABS: Hematocrit 22.1 % (36.0-45.0); Lymphocytes % 38.5 % (15.3-44.8); MCV 102.5 fL (80-100); MPV 8.4 fL (7.6-11.3); RBC Red Blood Cell Count 2.15 M/uL (3.86-4.86)
[2021-10-19 05:06] LABS: Albumin 3.4 g/dL (3.4-5.0); Bilirubin Total 3.2 mg/dL (0.2-1.0); Potassium 4.2 mmol/L (3.5-5.1); Protein, Total 6.4 g/dL (6.4-8.2)
--- NOTE | 2021-10-19 06:41 | P.PN ---
Date of Service: 10/19/21 Subjective: no acute events overnight slight improvement ROS: 10 point ROS as noted above, otherwise negative Physical exam GEN: Alert, oriented HEENT: normal conjunctiva, mild sclera icterus CV: Regular rate and rhythm, no edema Pulm: Non-labored respirations on room air ABD: Soft, nondistended, nontender Neuro: Normal speech, normal affect Problem List Sickle cell pain /crisis h/o PE, on eliquis hyperbilirubinemia h/o recent elevated LFTs chronic leukocytosis, stable; afebrile no focal symptoms continue pain meds PRN retic count increased; stable but remains elevated hgb stable today bili decreasing continue IVF trend labs LFTs ok 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
--- NOTE | 2021-10-19 07:36 | RAD REPORT ---
EXAM DESCRIPTION: RAD - Chest Single View - 10/19/2021 5:01 am CLINICAL HISTORY: eval pulm edema/effusions COMPARISON: Portable 09/26/2021 and 09/15/2021 TECHNIQUE: AP portable chest image was obtained 10/19/2021 5:01 am . FINDINGS: Left-sided Port-A-Cath remains in place, unchanged in positioning. No additional tube or l ine seen. Increased interstitial opacification is present compared to prior imaging. Patchy airspace opacities are present in the lower right lung field and minimally in the upper right lung field. Heart size is upper normal. Central vasculature is slightly increased. Trachea is midline. No measura ble pleural effusion and no pneumothorax. No acute bony abnormality seen. No acute aortic findings phelan spected. IMPRESSION: Mild diffuse pulmonary edema pattern is seen. There is additional airspace opacification in the right lower lung field that is probably part of the pulmonary edema but a concurrent pneumonia cannot be excluded.
[2021-10-19] MEDS ORDERED: MAGNESIUM SULFATE 1 gm IVPB 1 GM/100 ML BAG IV ONE (09:00)
[2021-10-19] MEDS: APIXABAN 2.5 MG TABLET PO SCH ×2 (09:24→21:27)
[2021-10-20] MEDS ORDERED: HYDROMORPHONE HCL 1 MG/ML INJ IV ONE ×2 (00:01→13:21)
[2021-10-20] MEDS: NA CHLORIDE 0.9% 1,000 ML IV SCH ×3 (01:24→13:59)
[2021-10-20] MEDS: PROMETHAZINE INJ 25 MG/ML AMP IV PRN ×6 (01:44→21:22)
[2021-10-20] MEDS: HYDROMORPHONE HCL 1 MG/ML INJ IV PRN ×4 (01:44→13:15)
[2021-10-20] MEDS: DIPHENHYDRAMINE 50 MG/ML VIAL IV PRN ×5 (01:44→21:21)
[2021-10-20 05:09] LABS: Absolute Lymphocytes (CBC) 2.4 K/uL (0.7-4.9); Hematocrit 22.6 % (36.0-45.0); Lymphocytes % 9.4 % (15.3-44.8); MCV 101.6 fL (80-100); MPV 8.4 fL (7.6-11.3); RBC Red Blood Cell Count 2.22 M/uL (3.86-4.86)
[2021-10-20 05:20] LABS: Bilirubin Total 2.9 mg/dL (0.2-1.0); Magnesium 1.7 mg/dL (1.8-2.4); Potassium 3.9 mmol/L (3.5-5.1); Protein, Total 7.1 g/dL (6.4-8.2)
[2021-10-20 05:41] LABS: Anisocytosis 2+; Blood Morphology Comment NOTED (NOT SEEN); Hypochromasia 2+; Platelet Estimate INCR; Polychromasia 1+; Target Cells 1+
[2021-10-20] MEDS ORDERED: MAGNESIUM SULFATE 1 gm IVPB 1 GM/100 ML BAG IV ONE (06:30)
--- NOTE | 2021-10-20 06:38 | P.PN ---
Date of Service: 10/20/21 Subjective: worsening pain, generalized, no specific area no abd pain, no nausea/vomiting feels like bones are breaking - similar to when she gets "bad episodes" ROS: 10 point ROS as noted above, otherwise negative Physical exam GEN: moderate distress HEENT: normal conjunctiva, mild sclera icterus CV: Regular rate and rhythm, no edema Pulm: Non-labored respirations on room air ABD: Soft, nondistended, nontender Neuro: Normal speech, normal affect Problem List Sickle cell pain /crisis h/o PE, on eliquis hyperbilirubinemia h/o recent elevated LFTs leukocytosis increased; suspect reactive, with worsening pain empirically cover with rocephin - started 10/20 no focal symptoms continue pain meds PRN; increase dilaudid to 2mg q4h retic count stable but remains elevated hgb stable bili decreasing decrease IVF rate trend labs LFTs ok patient unable to follow up with senior web services developer as outpatient due to timing, only discharged ~2 weeks ago VTE: eliquis Code: full Dispo: home, ~2-3 days Time Spent Managing Pts Care (In Minutes): 35
[2021-10-20] MEDS ORDERED: POTASSIUM CL SA 10 MEQ TAB PO ONE (09:00)
[2021-10-20] MEDS: CEFTRIAXONE 1,000 MG in NA CHLORIDE 0.9% 50 ML IVPB SCH (09:19)
[2021-10-20] MEDS: APIXABAN 2.5 MG TABLET PO SCH ×2 (09:19→20:20)
[2021-10-20] MEDS: HYDROMORPHONE HCL 2 MG/ML inj IV PRN ×2 (17:21→21:21)
[2021-10-21] MEDS: DIPHENHYDRAMINE 50 MG/ML VIAL IV PRN ×6 (01:19→21:28)
[2021-10-21] MEDS: PROMETHAZINE INJ 25 MG/ML AMP IV PRN ×5 (01:20→21:24)
[2021-10-21] MEDS: HYDROMORPHONE HCL 2 MG/ML inj IV PRN ×6 (01:20→21:26)
[2021-10-21 05:42] LABS: Absolute Lymphocytes (CBC) 7.4 K/uL (0.7-4.9); Lymphocytes % 29.8 % (15.3-44.8); MCV 99.6 fL (80-100); RBC Red Blood Cell Count 2.08 M/uL (3.86-4.86)
[2021-10-21 05:54] LABS: Hematocrit 20.7 % (36.0-45.0)
[2021-10-21 07:01] LABS: C-Reactive Protein 28.9 mg/L (<3.00); Magnesium 1.9 mg/dL (1.8-2.4)
[2021-10-21] MEDS: CEFTRIAXONE 1,000 MG in NA CHLORIDE 0.9% 50 ML IVPB SCH (09:29)
[2021-10-21] MEDS: APIXABAN 2.5 MG TABLET PO SCH ×2 (09:29→21:24)
[2021-10-21] MEDS: NA CHLORIDE 0.9% 1,000 ML IV SCH (09:32)
--- NOTE | 2021-10-21 16:09 | P.PN ---
Date of Service: 10/21/21 Subjective: pain stable, with increased dilaudid no worsening feels slightly longer pain lasting in left calf - feels better when she squeezes it no other focal pain - just generalized, throughout all bones/body ROS: 10 point ROS as noted above, otherwise negative Physical exam GEN: NAD HEENT: normal conjunctiva, sclerae anicteric CV: Regular rate and rhythm, no edema Pulm: Non-labored respirations on room air ABD: Soft, nondistended, nontender MSK: nontender along large bones/joints, nl ROM without pain Neuro: Normal speech, normal affect Problem List Sickle cell pain /crisis h/o PE, on eliquis hyperbilirubinemia h/o recent elevated LFTs leukocytosis increased; suspect reactive, with worsening pain empirically covered with rocephin - started 10/20; cultures obtained 10/20 no focal symptoms continue pain meds PRN; increase dilaudid to 2mg q4h on 10/20 retic elevated; slightly decreased today hgb stable bili decreasing dc IVF, patient euvolemic LFTs ok patient unable to follow up with medical parasitologist as outpatient due to timing, only discharged ~2 weeks ago VTE: eliquis Code: full Dispo: home, ~3-4 days Time Spent Managing Pts Care (In Minutes): 35
[2021-10-22] MEDS: PROMETHAZINE INJ 25 MG/ML AMP IV PRN ×6 (01:11→22:36)
[2021-10-22] MEDS: DIPHENHYDRAMINE 50 MG/ML VIAL IV PRN ×6 (01:12→22:39)
[2021-10-22] MEDS: HYDROMORPHONE HCL 2 MG/ML inj IV PRN ×2 (01:12→05:12)
[2021-10-22 05:25] LABS: Absolute Lymphocytes (CBC) 4.1 K/uL (0.7-4.9); Lymphocytes % 19.1 % (15.3-44.8); MCV 96.4 fL (80-100); MPV 7.8 fL (7.6-11.3); RBC Red Blood Cell Count 2.01 M/uL (3.86-4.86)
[2021-10-22 05:47] LABS: Hematocrit 19.4 % (36.0-45.0)
[2021-10-22 05:49] LABS: C-Reactive Protein 26.7 mg/L (<3.00)
[2021-10-22 07:48] LABS: Anisocytosis 2+; Blood Morphology Comment NOTED (NOT SEEN); Macrocytosis 1+; Platelet Estimate ADEQ; Platelets, Giant FEW; Poikilocytosis 1+; Polychromasia 1+
[2021-10-22 07:49] LABS: Howell-Jolly Bodies NOTED
[2021-10-22] MEDS: HYDROMORPHONE HCL 2 MG/ML inj IV SCH ×5 (08:02→22:38)
[2021-10-22] MEDS: APIXABAN 2.5 MG TABLET PO SCH ×2 (09:33→20:10)
[2021-10-22] MEDS: CEFTRIAXONE 1,000 MG in NA CHLORIDE 0.9% 50 ML IVPB SCH (09:33)
--- NOTE | 2021-10-22 17:05 | P.PN ---
Date of Service: 10/22/21 Subjective: pain remains high but not worsening, more comfortable on higher dilaudid, 2mg q4h PRN no focal symptoms, no new symptoms ROS: 10 point ROS as noted above, otherwise negative Physical exam GEN: uncomfortable appearing HEENT: normal conjunctiva, sclerae anicteric CV: Regular rate and rhythm, no edema Pulm: Non-labored respirations on room air ABD: Soft, nondistended, nontender MSK: nontender along large bones/joints, nl ROM without pain Neuro: Normal speech, normal affect Problem List Sickle cell pain /crisis h/o PE, on eliquis hyperbilirubinemia, improving h/o recent elevated LFTs leukocytosis increased; suspect reactive, with worsening pain empirically covered with rocephin - started 10/20; cultures obtained 10/20 - no growth to date remains afebrile no focal symptoms continue pain meds PRN; increase dilaudid to 2mg q4h on 10/20; schedule dilaudid on 10/22 retic elevated; slightly decreased hgb stable bili decreasing dc IVF 10/21, patient euvolemic LFTs ok patient unable to follow up with platform power technician as outpatient due to timing, only discharged ~2 weeks ago VTE: eliquis Code: full Dispo: home, ~3 days Time Spent Managing Pts Care (In Minutes): 35
[2021-10-23] MEDS: PROMETHAZINE INJ 25 MG/ML AMP IV PRN ×6 (02:31→22:32)
[2021-10-23] MEDS: HYDROMORPHONE HCL 2 MG/ML inj IV SCH ×6 (02:33→22:33)
[2021-10-23] MEDS: DIPHENHYDRAMINE 50 MG/ML VIAL IV PRN ×6 (02:35→22:33)
[2021-10-23 05:27] LABS: Absolute Lymphocytes (CBC) 3.9 K/uL (0.7-4.9); Lymphocytes % 23.2 % (15.3-44.8); MCV 95.8 fL (80-100); MPV 7.9 fL (7.6-11.3); RBC Red Blood Cell Count 1.84 M/uL (3.86-4.86)
[2021-10-23 05:39] LABS: Hematocrit 17.6 % (36.0-45.0)
[2021-10-23 05:59] LABS: Albumin 3.3 g/dL (3.4-5.0); Bilirubin Total 2.3 mg/dL (0.2-1.0); Potassium 3.9 mmol/L (3.5-5.1); Protein, Total 6.6 g/dL (6.4-8.2)
--- NOTE | 2021-10-23 06:36 | P.PN ---
Date of Service: 10/23/21 Subjective: pain slightly improved; on scheduled dilaudid still feels at times like her bones are breaking, but improved no focal pain - generalized. no abd pain/fullness, no n/v eating well ROS: 10 point ROS as noted above, otherwise negative Physical exam GEN: alert/oriented, slightly uncomfortable appearing HEENT: normal conjunctiva, sclerae anicteric CV: Regular rate and rhythm, no edema Pulm: Non-labored respirations on room air ABD: Soft, nondistended, nontender MSK: nontender along large bones/joints, nl ROM without pain Problem List Sickle cell pain /crisis h/o PE, on eliquis hyperbilirubinemia, improving h/o recent elevated LFTs leukocytosis increased; suspect reactive, with worsening pain; now downtrending empirically covered with rocephin - started 10/20; cultures obtained 10/20 - no growth to date remains afebrile no focal symptoms increased dilaudid to 2mg q4h on 10/20; schedule dilaudid on 10/22 retic elevated; slightly decreased today hgb down this morning, LDH down bili decreasing dc'd IVF 10/21, patient euvolemic LFTs ok patient unable to follow up with data scientist as outpatient due to timing, only discharged ~2 weeks ago discussed making appointment now, likely will take weeks to get in VTE: arabella Code: full Dispo: home, ~2-3 days Time Spent Managing Pts Care (In Minutes): 35
[2021-10-23] MEDS: APIXABAN 2.5 MG TABLET PO SCH ×2 (08:18→20:57)
[2021-10-23] MEDS: CEFTRIAXONE 1,000 MG in NA CHLORIDE 0.9% 50 ML IVPB SCH (08:19)
[2021-10-23] MEDS ORDERED: POTASSIUM CL SA 10 MEQ TAB PO ONE (09:00)
[2021-10-24] MEDS: DIPHENHYDRAMINE 50 MG/ML VIAL IV PRN ×6 (02:37→22:30)
[2021-10-24] MEDS: PROMETHAZINE INJ 25 MG/ML AMP IV PRN ×6 (02:37→22:31)
[2021-10-24] MEDS: HYDROMORPHONE HCL 2 MG/ML inj IV SCH ×6 (02:37→22:30)
[2021-10-24 02:58] LABS: Absolute Lymphocytes (CBC) 4.7 K/uL (0.7-4.9); Lymphocytes % 25.1 % (15.3-44.8); MCV 95.6 fL (80-100); MPV 8.1 fL (7.6-11.3); RBC Red Blood Cell Count 2.04 M/uL (3.86-4.86)
[2021-10-24 03:15] LABS: Hematocrit 19.5 % (36.0-45.0)
[2021-10-24 06:34] LABS: Albumin 3.6 g/dL (3.4-5.0); Bilirubin Total 2.2 mg/dL (0.2-1.0); Potassium 4.1 mmol/L (3.5-5.1); Protein, Total 7.2 g/dL (6.4-8.2)
[2021-10-24] MEDS: CEFTRIAXONE 1,000 MG in NA CHLORIDE 0.9% 50 ML IVPB SCH (08:25)
[2021-10-24] MEDS: APIXABAN 2.5 MG TABLET PO SCH ×2 (08:25→20:32)
--- NOTE | 2021-10-24 18:02 | P.PN ---
Subjective Date of Service: 10/24/21 Chief Complaint: General bodily pains No new complaint except generalized bodily pains. Physical Examination - Vital Signs Temperature: 98.0 F Blood Pressure: 132/58 Pulse: 94 Respirations: 16 Pulse Ox (%): 100 Assessment And Plan - Current Problems (Diagnosis) (1) Sickle cell pain crisis Current Visit: No Status: Acute (2) History of pulmonary embolism Current Visit: No Status: Chronic (3) Leucocytosis Current Visit: No Status: Chronic Qualifiers: Leukocytosis type: unspecified Qualified Code(s): D72.829 - Elevated white blood cell count, unspecified - Plan Physical exam GEN: alert/oriented. HEENT: normal conjunctiva, sclerae anicteric CV: Regular rate and rhythm, no edema Pulm: Non-labored respirations on room air, clear to auscultation bilaterally. ABD: Soft, nondistended, nontender MSK: nontender, ROM without pain Problem List Sickle cell pain /crisis h/o PE, on eliquis hyperbilirubinemia, improving h/o recent elevated LFTs I called her hematology oncologist office. Her white cell count usually elevated and she is currently at baseline. empirically covered with rocephin - started 10/20; cultures obtained 10/20 - no growth to date remains afebrile no focal symptoms Patient getting Dilaudid. Hemoglobin 6.9, Off IVF 10/21, patient euvolemic LFTs within normal limit.
[2021-10-25] MEDS: PROMETHAZINE INJ 25 MG/ML AMP IV PRN ×6 (02:30→22:40)
[2021-10-25] MEDS: DIPHENHYDRAMINE 50 MG/ML VIAL IV PRN ×6 (02:31→22:40)
[2021-10-25] MEDS: HYDROMORPHONE HCL 2 MG/ML inj IV SCH ×6 (02:31→22:39)
[2021-10-25 10:42] LABS: Absolute Lymphocytes (CBC) 6.2 K/uL (0.7-4.9); Lymphocytes % 32.8 % (15.3-44.8); MCV 96.4 fL (80-100); MPV 8.2 fL (7.6-11.3); RBC Red Blood Cell Count 2.15 M/uL (3.86-4.86)
[2021-10-25] MEDS: CEFTRIAXONE 1,000 MG in NA CHLORIDE 0.9% 50 ML IVPB SCH (10:46)
[2021-10-25 10:47] LABS: Hematocrit 20.7 % (36.0-45.0)
[2021-10-25] MEDS: APIXABAN 2.5 MG TABLET PO SCH ×2 (10:47→21:37)
[2021-10-25] MEDS ORDERED: NA CHLORIDE 0.9% 250 ML ONE (21:48)
[2021-10-26] MEDS: PROMETHAZINE INJ 25 MG/ML AMP IV PRN ×4 (02:41→15:03)
[2021-10-26] MEDS: HYDROMORPHONE HCL 2 MG/ML inj IV SCH ×4 (02:41→15:02)
[2021-10-26] MEDS: DIPHENHYDRAMINE 50 MG/ML VIAL IV PRN ×4 (02:41→15:03)
[2021-10-26 07:38] LABS: Absolute Lymphocytes (CBC) 8.3 K/uL (0.7-4.9); Hematocrit 25.8 % (36.0-45.0); Lymphocytes % 45.3 % (15.3-44.8); RBC Red Blood Cell Count 2.66 M/uL (3.86-4.86)
--- NOTE | 2021-10-26 07:50 | P.PN ---
Subjective Date of Service: 10/25/21 Patient known to me from multiple prior hospitalizations. History of sickle cell pain crisis. She is been in the hospital for over a week. She was in the hospital for over 2 weeks on last admission. She normally runs out of her pain medication and she is seeing Dr. Inman in [place]. She gets pain control from him as well as being on a trial for sickle cell. She gets an infusion once a month. She is slightly anemic and we will give her 1 unit. At this time, she is doing well and plan to discharge her home with outpatient follow-up. Review of Systems 10-point ROS is otherwise unremarkable Physical Examination - Vital Signs Temperature: 98.0 F Blood Pressure: 96/55 Pulse: 72 Respirations: 13 Pulse Ox (%): 94 - Physical Exam General: Alert, In no apparent distress HEENT: Atraumatic, PERRLA, EOMI Neck: Supple, JVD not distended Respiratory: Clear to auscultation bilaterally, Normal air movement Cardiovascular: Regular rate/rhythm, Normal S1 S2 Gastrointestinal: Normal bowel sounds, No tenderness Musculoskeletal: No tenderness Integumentary: No rashes Neurological: Normal speech, Normal tone, Normal affect Lymphatics: No axilla or inguinal lymphadenopathy - Studies Medications List Reviewed: Yes Assessment & Plan - Problems (Diagnosis) (1) Sickle cell pain crisis Current Visit: No Status: Acute - Plan Plan: 1. Pain control 2. Transfuse 1 unit of packed red blood cells 3. Continue with outpatient treatment with Dr. Inman 4. Pain control will continue as an outpatient 5. GI DVT prophylaxis - Advance Directives Does patient have a Living Will: No Does patient have a Durable POA for Healthcare: No
[2021-10-26 08:16] VITALS: O2SAT 93
[2021-10-26] MEDS: APIXABAN 2.5 MG TABLET PO SCH (09:11)
[2021-10-26 13:54] VITALS: BP 120/77; TEMP 98.7
[2021-10-26] MEDS ORDERED: HEPARIN 500 UNIT/5 ML SYR IV ONE (15:00)
== END 2021-10-26 16:51 | disposition home or self-care (01) | DRG 812 ==
LOC: ER 04:53 → ERHOLD 08:22 → 2ND 13:45
PROVIDERS: ADMIT Internal Medicine; ATTEND Internal Medicine
PROC: 30233N1 Transfusion of Nonautologous Red Blood Cells into Peripheral Vein, Percutaneous Approach (ICD-10-PCS; principal; 2021-10-25)
DX: D57.00 Hb-SS disease with crisis, unspecified (principal); D72.829 Elevated white blood cell count, unspecified; Z86.711 Personal history of pulmonary embolism; E80.6 Other disorders of bilirubin metabolism; F17.210 Nicotine dependence, cigarettes, uncomplicated; Z88.2 Allergy status to sulfonamides; Z20.822 Contact with and (suspected) exposure to COVID-19
CPT/HCPCS: 36415; 36430; 71045; 80048; 80053; 81003; 81025; 82248; 83010; 83615; 83735; 84100; 84145; 85025; 85044; 85660; 86140; 86850; 86900; 86901; 86902; 86922; 87040; 99285; J1170; J1200; J1642; J2550; J3475; J7030; J7050; J7120; P9016; U0003

== ENCOUNTER 2021-12-04 15:57 | Inpatient (IN) | payer OTHER ==
--- OUTSIDE RECORDS SUMMARY | 2021-12-04 16:02 | XMS REPORT | Continuity of Care Document ---
:1990 Author Organization [facility] t Address [address] [place] [address] Support Name Relationship Address Phone [phone] [place] [address] [place] [address] [place] [address] DENI Unavailable [address] [address] [phone] [place] [address] [place] [address] [address] [facility] [address] [phone] [place] [address] [place] [address] [address] [facility] [address] [place] [address] JORDAN Unavailable [address] [facility] [phone] [place] [address] JORDAN Unavailable [address] [facility] [phone] [place] [address] [address] [place] [address] CLINTON DELEON MD E Admitting Provider [address] [facility] [address] [place] [address] JESSICA SIDDIQUI Primary Care Physician [address] [facility] [address] [place] [address] VIJAYA MULLEN MD A Emergency Provider [address] [facility] [place] [address] NAIMA MULLEN Attending Provider [address] [place] [address] IZZY MULLEN, E Emergency Provider [address] [facility] [address] [place] [address] PHYSICIAN Primary Care Physician Unavailable Unavailab chrisys GRISSOM MD, MD Emergency Provider [address] [place] [address] OTHER, NAME IN NOTES Primary Care Physician Unavailable Sylvie vailable KIP MULLEN MD Emergency Provider [address] [place] [address] ISABELLA MULLEN MD MORE Admitting Provider [address] [phone] [place] [address] FRANCIS Primary Care Physician [address] [facility] [place] [address] MD AMRITA A Emergency Provider [facility] [place] [address] MD ADRIANA Emergency Provider Unavailable Unavailable MD STACY S Emergency Provider [address] [phone] [place] [address] MD AMAN Emergency Provider [address] [phone] [place] [address] Care Team Providers Name Role Phone Shaikh PAZ, [facility] Primary Care Physician BRENDA Attending Clinician [...] is is [facility] 00 [place] Pneumonia Pneumonia Disease Active [facility] 00 [place] 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 00:00: Medical [place] 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[facility] cell 2[facility]28 [facility] crisis crisis 00:00: Medical 00 [place] Allergies, Adverse Reactions, Alerts Allergy Allergy Status Severity Reaction(s) Onset Inactive Treating Comm ents Source Name Type Date Date Clinician Ondanset Drug Active Nausea And [facility] Hcl Intolera Vomiting 2-28 [facility] (Pf[facility]: Medical 00 [place] morphine DA Active SV 2010-0 [facility] 3[facility] [place] [facility] TEGEDERM DA Active IN 2008-0 [facility]ESSING 8[facility]23 [place] [facility] Family History Family Member Diagnosis Comments Start Date Stop Date Source Natural mother Sickle cell trait [facility] Natural [facility] Natural brother Unremarkable [facility] Natural father Seizures [facility] Natural father Sickle cell trait [facility] Social History Social Habit Start Date [...] Start Date Stop Date Source Never smoker [facility] Medications Ordered Filled Start Stop Current [...] mouth once Medi rita 00 a week. [place] VITAMIN D2 Yes 1{capsu Q7D Take [address] [facility]000 unit 2-25 le} capsule by Ariana kes capsule 00:00: mouth once Medi rita 00 a week. [place] VITAMIN D2 Yes 1{capsu Q7D Take [address] [facility],000 unit 2-25 le} capsule by Ariana kes capsule 00:00: mouth once Medi rita 00 a week. [place] VITAMIN D2 Yes 1{capsu Q7D Take [address] [facility],000 unit 2-25 le} capsule by Ariana kes capsule 00:00: mouth once Medi rita 00 a week. [place] VITAMIN D2 Yes 1{capsu Q7D Take [address] [facility],000 unit 2-25 le} capsule by Ariana kes capsule 00:00: mouth once Medi rita 00 a week. [place] PROAIR HFA Yes 1{puff} Inhale 1 [facility] Test 00:00:00 (12+) [code = [facility] DEPRESSION SCREENING (12+)] Future Scheduled 2020-05-13 [...] [facility] Center cervix (procedure) [code = 076939609] Future Scheduled 2012-09-[address] [facility] Test 00:00:00 malignant neoplasm of [facility] cervix (procedure) [code = 111237991] Future Scheduled 2012-09-[address] [facility] Test 00:00:00 malignant ne[facility] cervix (procedure) [code = 758847955] Future Scheduled 2012-09-[address] [facility] Test 00:00:00 malignant ne[facility] cervix (procedure) [code = 340633108] Future Scheduled 2012-09-[address] [facility] Test 00:00:00 malignant neoplasm of [facility] cervix (procedure) [code = 958784658] Future Scheduled [address] [facility] Test 00:00:00 (procedure) [code = [facility] 53977813] Future Scheduled [address] [facility] Test 00:00:00 (procedure) [code = [facility] 17089386] Future Scheduled [address] [facility] Test 00:00:00 (procedure) [code = [facility] 92708726] Future Scheduled [address] [facility] Test 00:00:00 (procedure) [code = [facility] 82724917] Future Scheduled [address] [facility] Test 00:00:00 (procedure) [code = [facility] 35304784] Future Scheduled 2010-09-05 DTAP/TDAP/TD VACCINES CH I [...] Department ID 2021-06-05 2021-06-08 Inpatient E BRENDA, [facility] MED [address] [facility] 04:10:00 13:24:00 AURORA 2021-06-03 2021-06-03 Emergency E [facility] [address] [facility] 02:02:00 14:43:00 RAHEL 2021-04-04 2021-04-04 Emergency E [facility] [address] [facility] 02:21:00 06:06:00 2021-02-26 2021-03-04 Inpatient E [facility] [address] [facility] 15:00:00 16:50:00 AAMIR 2021-02-18 2021-02-23 Inpatient E [...] (test code = 367) Nonreactive Nonrea ctive Slag Worker ID - DBHEPATITIS A ANTIBODY, [id number] 11:45:17 Test Item Value Reference Range Interpretation Comments HEPATITIS A IGM ANTIBODY (BEAKER) Nonreactive Nonreactive (test code = 498) Slag Worker ID - DBHEPATITIS B CORE ANTIBODY, [id number] 11:45:17 Test Item Value Reference Range Interpretation Comments HEPATITIS B CORE TOTAL ANTIBODY Nonreactive Nonreactive (BEAKER) (test code = 497) Slag Worker ID - DBHEPATITIS B SURFACE [id number] 11:45:12 Test Item Value Reference Range Interpretation Comments HEPATITIS B SURFACE ANTIGEN (2) Nonreactive Nonreactive (BEAKER) (test code = 2585) Specimen is considered negative for HBsAg.HEPATITIS PANEL, [id number] 19:51:14 Test Item Value Reference Range Interpretation Comments HEPATITIS A IGM ANTIBODY (BEAKER) Nonreactive Nonreactive (test code = 498) HEPATITIS B CORE IGM ANTIBODY Nonreactive Nonreactive (BEAKER) (test code = 645) HEPATITIS C ANTIBODY (BEAKER) Nonreactive Nonreactive (test code = 367) HEPATITIS B SURFACE ANTIGEN (2) Nonreactive Nonreactive (BEAKER) (test code = 2585) Slag Worker ID - DBHEPATITIS A ANTIBODY, [id number] 19:51:14 Test Item Value Reference Range Interpretation Comments HEPATITIS A IGM ANTIBODY (BEAKER) Nonreactive Nonreactive (test code = 498) HEPATITIS B CORE ANTIBODY, [id number] 19:51:14 Test Item Value Reference Range Interpretation Comments HEPATITIS B CORE IGM ANTIBODY Nonreactive Nonreactive (BEAKER) (test code = 645) HEPATITIS B SURFACE [id number] 19:51:14 Test Item Value Reference Range Interpretation Comments HEPATITIS B SURFACE ANTIGEN (2) Nonreactive Nonreactive (BEAKER) (test code = 2585) Specimen is considered negative for HBsAg.HEPATITIS C [id number] 19:51:14 Test Item Value Reference Range Interpretation Comments HEPATITIS C ANTIBODY (BEAKER) Nonreactive Nonreactive (test code = 367) SARS-COV2/RT-PCR ([facility])2019-11-14 17:47:00 Test Item Value Reference Range Interpretation Comments SARS-COV2/RT-PCR (test code = Negative Not Detected, Negative 8792124) SARS-COV-2 PERFORMING LAB [facility] (test code = 9057562) Negative results do not preclude SARS-CoV-2 infection [...] of the Act.Fact Sheet for Healthcare Pro viders:https://www.[employer]/Documents/Xpert%20Xpress%20SARS%20CoV-2/Fact%20Sh eets/3023802%48TXNM-MWW-6%20HEALTHCARE%20PROVIDERS%20FACT%20SHEET.pdfFact Sheet for Healthcare Patients:https://www.[employer]/Documents/Xpert%20Xpress%20SARS%20CoV-2/Fact%20Sheets/3023801%20SARS-COV -2%20PATIENT%20FACT%20SHEET.pdfPerforming Laboratory:[facility], [place] [address]DBI W/PLT COUNT & AUTO DIFFERENTIAL 2018-08-10 08:25:00 [...] 3438) Received comment: User comments: Slide comments:RETICULOCYTE [id number] 08:06:00 Test Item Value Reference Range Interpretation Comments RETICULOCYTE COUNT PCT (BEAKER) (test 25.0 % 0.5-1.7 H code = 575) CBC W/PLT COUNT & AUTO [id number] 09:27:00 Test Item Value Reference Range Interpretation [...] 3438) Received comment: User comments: Slide comments:RETICULOCYTE [id number] 05:01:00 Test Item Value Reference Range Interpretation Comments RETICULOCYTE COUNT PCT (BEAKER) (test 21.6 % 0.5-1.7 H code = 575) CBC W/PLT COUNT & AUTO [id number] 15:17:00 Test Item Value Reference Range Interpretation [...] H (BEAKER) (test code = 413) RETICULOCYTE [id number] 08:44:00 Test Item Value Reference Range Interpretation Comments RETICULOCYTE COUNT PCT (BEAKER) (test 23.8 % 0.5-1.7 H code = 575) BLOOD [id number] 14:01:00 Test Item Value Reference Range Interpretation Comments CULTURE (BEAKER) (test No growth in 5 days code = 1095) BLOOD [id number] 12:01:00 Test Item Value Reference Range Interpretation Comments CULTURE (BEAKER) (test No growth in 5 days code = 1095) CBC W/PLT COUNT & AUTO [id number] 11:38:00 Test Item Value Reference Range Interpretation [...] 3438) Received comment: User comments: Slide comments:RETICULOCYTE [id number] 07:44:00 Test Item Value Reference Range Interpretation Comments RETICULOCYTE COUNT PCT (BEAKER) (test 27.0 % 0.5-1.7 H code = 575) RETICULOCYTE [id number] 07:19:00 Test Item Value Reference Range Interpretation Comments RETICULOCYTE COUNT PCT (BEAKER) (test 22.7 % 0.5-1.7 H code = 575) CBC W/PLT COUNT & AUTO [id number] 12:07:00 Test Item Value Reference Range Interpretation [...] PLATELET CONCENTRATION Increased (CELLAVISION)(BEAKER) (test code = 7228) Received comment: User comments: Slide comments:RETICULOCYTE [id number] 06:14:00 Test Item Value Reference Range Interpretation Comments RETICULOCYTE COUNT PCT (BEAKER) (test 21.9 % 0.5-1.7 H code = 575) [id number] 06:02:00 Test Item Value Reference Range Interpretation Comments PHOSPHORUS (BEAKER) (test code = 3.8 mg/dL 2.3-4.7 604) [id number] 06:02:00 Test Item Value Reference Range Interpretation Comments MAGNESIUM (BEAKER) (test code = 1.8 mg/dL 1.6-2.6 627) BASIC METABOLIC [id number] 06:02:00 Test Item Value Reference Range Interpretation [...] Specimen moderately ictericCBC W/PLT COUNT & AUTO [id number] 09:09:00 Test Item Value Reference Range Interpretation [...] = 3438) Received comment: User comments: Slide comments:[id number] 04:11:00 Test Item Value Reference Range Interpretation Comments PHOSPHORUS (BEAKER) (test code = 3.3 mg/dL 2.3-4.7 604) [id number] 04:11:00 Test Item Value Reference Range Interpretation Comments MAGNESIUM (BEAKER) (test code = 1.6 mg/dL 1.6-2.6 627) BASIC METABOLIC [id number] 04:11:00 Test Item Value Reference Range Interpretation [...] FOR DIALYSIS PATIEN TS. Specimen slightly ictericRETICULOCYTE [id number] 03:54:00 Test Item Value Reference Range Interpretation Comments RETICULOCYTE COUNT PCT (BEAKER) (test 20.4 % 0.5-1.7 H code = 575) CBC W/PLT COUNT & AUTO [id number] 18:30:00 Test Item Value Reference Range Interpretation [...] = 413) CBC W/PLT COUNT & AUTO [id number] 10:51:00 Test Item Value Reference Range Interpretation [...] 3438) Received comment: User comments: Slide comments:RETICULOCYTE [id number] 10:08:00 Test Item Value Reference Range Interpretation Comments RETICULOCYTE COUNT PCT (BEAKER) (test 14.4 % 0.5-1.7 H code = 575) CBC W/PLT COUNT & AUTO [id number] 09:30:00 Test Item Value Reference Range Interpretation [...] = 3438) Received comment: User comments: Slide comments:[id number] 03:32:00 Test Item Value Reference Range Interpretation Comments PHOSPHORUS (BEAKER) (test code = 3.5 mg/dL 2.3-4.7 604) [id number] 03:32:00 Test Item Value Reference Range Interpretation Comments MAGNESIUM (BEAKER) (test code = 1.8 mg/dL 1.6-2.6 627) BASIC METABOLIC [id number] 03:32:00 Test Item Value Reference Range Interpretation [...] ictericCT, CHEST WITH IV CONTRAST- PE TEST [id number] 14:01:00FINAL REPORT CT scan of the chest. [...] MDReport Verified Date/Time: 08/02/2018 14:01:29 Reading Location: [place] [address]X [facility] Consult Reading Room URINALYSIS W/ REFLEX URINE [id number] 11:27:00 Test Item Value Reference Range Interpretation [...] 516) SOURCE(BEAKER) (test code = 2795) SCREEN, [id number] 11:15:00 Test Item Value Reference Range Interpretation Comments TEST URINE (BEAKER) (test Negative code = 583) RETICULOCYTE [id number] 04:43:00 Test Item Value Reference Range Interpretation Comments RETICULOCYTE COUNT PCT (BEAKER) (test 13.2 % 0.5-1.7 H code = 575) RAD, CHEST, 2 [id number] 03:54:00Reason for exam:->SICKLE CELL PAIN CRISISIs the [...] [place] MDReport Verified Date/Time: 08/02/2018 03:54:52Reading Location: [address] Reading Room CBC W/PLT COUNT & [...] (BEAKER) (test code = 417) COMPREHENSIVE METABOLIC [id number] 02:42:00 Test Item Value Reference Range Interpretation [...]
[2021-12-04 16:56] LABS: Urine Blood Trace-lysed (Negative); Urine Glucose Negative (Negative); Urine Protein Negative (Negative); Urine Specific Gravity 1.015 (1.005-1.030); Urine pH 6.5 (5.0-7.0)
[2021-12-04] MEDS ORDERED: PROMETHAZINE INJ 25 MG/ML AMP ONE (16:58)
[2021-12-04] MEDS ORDERED: NA CHLORIDE 0.9% 1,000 ML ONE ×2 (16:59→19:37)
[2021-12-04] MEDS ORDERED: HYDROMORPHONE HCL 1 MG/ML INJ ONE ×3 (16:59→19:45)
[2021-12-04 17:23] LABS: Albumin 3.9 g/dL (3.4-5.0); Bilirubin Direct 0.6 mg/dL (0-0.2); Bilirubin Total 3.6 mg/dL (0.2-1.0); Magnesium 1.9 mg/dL (1.8-2.4); Potassium 3.8 mmol/L (3.5-5.1); Troponin High Sensitivity 3.5 pg/mL (<58.9)
[2021-12-04 17:28] LABS: Urine Specific Gravity/Preg 1.015 (1.005-1.030)
[2021-12-04 17:43] LABS: Absolute Lymphocytes (CBC) 3.4 K/uL (0.7-4.9); Lymphocytes % 26.7 % (15.3-44.8); MPV 8.9 fL (7.6-11.3)
[2021-12-04] MEDS ORDERED: DIPHENHYDRAMINE 50 MG/ML VIAL ONE ×3 (17:49→22:47)
--- NOTE | 2021-12-04 17:50 | RAD REPORT ---
EXAM DESCRIPTION: RAD - Chest Single View - 12/04/2021 5:01 pm CLINICAL HISTORY: COUGH COMPARISON: Portable 10/19/2021 TECHNIQUE: AP portable chest image was obtained 12/04/2021 5:01 pm . FINDINGS: Baseline interstitial markings are prominent. Lung markings are more prominent in each bas e, similar to comparison. Focal scarring in the right upper lung field also without interval change. Left subclavian Port-A-Cath is in place. Mild cardiomegaly is present. Central vasculature is mildly prominent. These findings are not clearl y different from comparison. No measurable pleural effusion and no pneumothorax. No acute bony abnormality seen. No acute aortic findings suspected. IMPRESSION: No acute cardiopulmonary process. Baseline chest findings could mask mild edema or infiltrate.
[2021-12-04 18:29] LABS: Hematocrit 22.2 % (36.0-45.0); MCV 98.8 fL (80-100); RBC Red Blood Cell Count 2.24 M/uL (3.86-4.86)
--- NOTE | 2021-12-04 19:37 | EDPHYS ---
Physician Documentation [facility] Name: Gume Ortega Age: 31 yrs Sex: Female : 1990 Arrival Date: 12/04/2021 Time: 16:08 Bed 28 Private MD: ED Physician Nelson Duffy HPI: 12/04 16:25 This 31 yrs old Black Female presents to ER via EMS with complaints of Sickle Cell cp Crisis. 16:25 Pain all over. Patient with history of sickle cell disease. cp 16:25 Onset: The symptoms/episode began/occurred 4 day(s) ago. Severity of symptoms: in the cp emergency department the symptoms are unchanged despite home interventions. Patient denies fever. Historical: - Allergies: 16:10 Fentanyl; eh3 16:10 Morphine; eh3 16:10 Sulfa (Sulfonamide Antibiotics); eh3 16:10 Zofran; eh3 - Home Meds: 16:10 alprazolam 1 mg Oral tab [Active]; dilaudid 8 mg every 6 hours [Active]; Folic Acid eh3 Oral [Active]; Vitamin D Oral [Active]; - PMHx: 16:10 Anxiety; blood clot in lung; Sickle Cell; eh3 - PSHx: 16:10 Port placed to Left Chest; eh3 - Immunization history:: Adult Immunizations up to date, Client reports receiving the 1st dose of the Covid vaccine, Pneumococcal vaccine is up to date, Flu vaccine is not up to date. - Social history:: Patient uses marijuana, Patient/guardian denies using alcohol, tobacco products, Smoking status: Patient denies any tobacco usage or history of. ROS: 16:30 Constitutional: Positive for body aches, pain all over, Negative for body aches, cp chills, fever, poor PO intake. 16:30 Eyes: Negative for injury, pain, redness, and discharge. cp 16:30 ENT: Negative for drainage from ear(s), ear pain, sore throat, difficulty swallowing, difficulty handling secretions. 16:30 Cardiovascular: Negative for chest pain, edema, palpitations. 16:30 Respiratory: Negative for cough, shortness of breath, wheezing. 16:30 Abdomen/GI: Negative for abdominal pain, vomiting, diarrhea, constipation. 16:30 MS/extremity: Negative for injury or acute deformity. 16:30 Skin: Negative for cellulitis, rash. 16:30 Neuro: Negative for altered mental status, headache, weakness. 16:30 All other systems are negative. Exam: 16:35 Constitutional: The patient appears in no acute distress, alert, awake, cp non-diaphoretic, non-toxic, well developed, well nourished, in obvious pain, uncomfortable. 16:35 Head/Face: Normocephalic, atraumatic. cp 16:35 Eyes: Periorbital structures: appear normal, Pupils: equal, round, and reactive to light and accomodation, Extraocular movements: intact throughout, Conjunctiva: normal, no exudate, no injection, Sclera: no appreciated abnormality, Lids and lashes: appear normal, bilaterally. 16:35 ENT: External ear(s): are unremarkable, Nose: is normal, Mouth: Lips: moist, Oral mucosa: pink and intact, moist, Posterior pharynx: Airway: no evidence of obstruction, patent. 16:35 Neck: ROM/movement: Meningeal signs: are not present, nuchal rigidity, is not appreciated. 16:35 Chest/axilla: Inspection: normal. 16:35 Cardiovascular: Rate: normal, Rhythm: regular, Edema: is not appreciated, JVD: is not appreciated. 16:35 Respiratory: the patient does not display signs of respiratory distress, Respirations: normal, no use of accessory muscles, no retractions, labored breathing, is not present, Breath sounds: are clear throughout, no decreased breath sounds, no stridor, no wheezing. 16:35 Abdomen/GI: Inspection: abdomen appears normal, Bowel sounds: active, all quadrants, Palpation: abdomen is soft and non-tender, in all quadrants. 16:35 Neuro: Orientation: to person, place \\T\\ time. Mentation: is normal, Cerebellar function: is grossly normal, Motor: moves all fours, strength is normal, Sensation: is normal. 16:55 ECG was reviewed by the Attending Physician. cp Vital Signs: 16:09 BP 110 / 73; Pulse 72; Resp 20; Pulse Ox 94% on R/A; Pain 10/10; eh3 17:16 BP 107 / 68; Pulse 51; Resp 10; Temp 98.3(TE); Pulse Ox 93% on R/A; Weight 83.91 kg; ld1 Height 5 ft. 3 in. (160.02 cm); Pain 0/10; 17:48 BP 115 / 81; Pulse 62; Resp 18; Pulse Ox 93% on R/A; Pain 9/10; ld1 19:09 BP 102 / 71; Pulse 63; Resp 18; Pulse Ox 92% on R/A; ld1 17:16 Body Mass Index 32.77 (83.91 kg, 160.02 cm) ld1 MDM: 16:14 Patient medically screened. [facility] 19:35 Data reviewed: vital signs, nurses notes, lab test result(s), EKG, radiologic studies, cp plain films. 19:35 Test interpretation: by ED physician or midlevel provider: ECG, plain radiologic cp studies. Physician consultation: Macie AGUILAR regarding admission. 12/04 16:21 Order name: Basic Metabolic Panel; Complete Time: 17:39 cp 12/04 17:39 Interpretation: Normal except: BUN 4; CRE 0.46. cp 12/04 16:21 Order name: CBC with Diff; Complete Time: 21:51 cp 12/04 18:34 Interpretation: Normal except: WBC 12.9; RBC 2.24; HGB 7.8; HCT 22.2; PLT 455; RDW cp 19.8; MN% 16.8; BASO% 1.5; MNA 2.2. 12/04 16:21 Order name: LFT's; Complete Time: 17:39 cp 12/04 17:39 Interpretation: Normal except: BILIT 3.6; BILID 0.6. cp 12/04 16:21 Order name: Magnesium; Complete Time: 17:39 cp 12/04 16:21 Order name: Troponin HS; Complete Time: 17:39 cp 12/04 16:21 Order name: COVID-19 SARS RT PCR (Document "Date of Onset" if Symptomatic); Complete cp Time: 18:34 12/04 18:34 Interpretation: Abnormal: SARSCOV2 RT PCR POSITIVE. cp 12/04 16:21 Order name: Retic Count; Complete Time: 21:51 cp 12/04 18:35 Interpretation: Abnormal: RETIC% 18.79; RETICA 0.42. cp 12/04 16:56 Order name: Urine Dipstick-Ancillary; Complete Time: 17:39 EDAR 12/04 17:08 Order name: Urine --Ancillary (enter results); Complete Time: 17:39 bd 12/04 21:47 Order name: Manual Differential; Complete Time: 21:51 EDMS 12/05 03:19 Order name: Basic Metabolic Panel; Complete Time: 03:39 EDMS 12/05 03:19 Order name: Phosphorus; Complete Time: 03:39 EDMS 12/05 03:19 Order name: Magnesium; Complete Time: 03:39 EDMS 12/05 03:22 Order name: CBC with Automated Diff; Complete Time: 05:07 EDAR 12/04 16:21 Order name: XRAY Chest (1 view); Complete Time: 17:57 cp 12/04 17:57 Interpretation: Report review. 12/04 16:21 Order name: EKG; Complete Time: 16:22 cp 12/04 16:21 Order name: Cardiac monitoring; Complete Time: 16:26 cp 12/04 16:21 Order name: EKG - Nurse/Tech; Complete Time: 17:06 cp 12/05 03:22 Order name: Retic Count; Complete Time: 05:07 EDAR 12/05 03:56 Order name: Manual Differential; Complete Time: 05:07 EDAR 12/04 16:21 Order name: IV Saline Lock; Complete Time: 17:06 cp 12/04 16:21 Order name: Labs collected and sent; Complete Time: 17: cp 12/04 16:21 Order name: O2 Per Protocol; Complete Time: 16:26 cp 12/04 16:21 Order name: O2 Sat Monitoring; Complete Time: 16:26 cp 12/04 16:21 Order name: Urine Dipstick-Ancillary (obtain specimen); Complete Time: 17:06 cp 12/04 16:21 Order name: Urine Test (obtain specimen); Complete Time: 17:06 cp EC:55 Rate is 64 beats/min. Rhythm is regular. PA interval is normal. QRS interval is normal. cp QT interval is normal. T waves are Inverted in lead aVR. Interpreted by me. Reviewed by me. Administered Medications: 17:05 Drug: Phenergan (promethazine) 12.5 mg Route: IVP; Site: Port-a-cath; ld1 17:06 Drug: NS 0.9% 1000 ml Route: IV; Rate: 1000 ml/hr; Site: Port-a-cath; ld1 19:41 Follow up: Response: No adverse reaction; IV Status: Completed infusion; IV Intake: ld1 1000ml 17:06 Drug: Dilaudid (HYDROmorphone) 1 mg Route: IVP; Site: Port-a-cath; ld1 17:47 Drug: Dilaudid (HYDROmorphone) 1 mg Route: IVP; Site: Port-a-cath; ld1 19:41 Follow up: Response: No adverse reaction ld1 17:47 Drug: Benadryl (diphenhydrAMINE) 12.5 mg Route: IVP; Site: Port-a-cath; ld1 19:42 Follow up: Response: No adverse reaction ld1 19:28 Not Given (Patient Refused): Bebtelovimab 175 mg IV at calculated rate once; as a ld1 single dose 19:35 Drug: foLIC Acid 1 mg Route: IVPB; Site: Port-a-cath; ld1 19:42 Follow up: Response: No adverse reaction ld1 19:35 Drug: NS 0.9% 1000 ml Route: IV; Rate: 125 ml/hr; Site: Port-a-cath; ld1 19:41 Drug: Dilaudid (HYDROmorphone) 1 mg Route: IVP; Site: Port-a-cath; ld1 19:41 Drug: Benadryl (diphenhydrAMINE) 12.5 mg Route: IVP; Site: Port-a-cath; ld1 Disposition Summary: 12/04/21 19:35 Hospitalization Ordered Hospitalization Status: Inpatient Admission cp Provider: Macie Lakhani cp Condition: Stable cp Problem: new cp Symptoms: have improved cp Bed/Room Type: Standard cp Location: [facility] ER HOLD(12/04/21 20:09) Room Assignment: ERHOLD-(12/04/21 20:09) cg Diagnosis - SARS-associated coronavirus as the cause of diseases classified elsewhere cp - Other sickle-cell disorders with crisis, unspecified cp Forms: - Medication Reconciliation Form cp - SBAR form cp Signatures: Dispatcher [employer] EDNelson Vieira MD MD cha Page, Corey, PA PA cp Garcia, Cindy, RN RN Livia Worthy RN RN ld1 Macie Lakhani PA PA 3 Angely Guerra 3 Corrections: (The following items were deleted from the chart) :35 Telemetry/MedSurg (Inpatient) [facility] : [facility]
--- NOTE | 2021-12-04 19:37 | ER ---
Nurse's Notes [facility] Name: Gume Ortega Age: 31 yrs Sex: Female : 1990 Arrival Date: 12/04/2021 Time: 16:08 Bed 28 Private MD: Diagnosis: SARS-associated coronavirus as the cause of diseases classified elsewhere;Other sickle-cell disorders with crisis, unspecified Presentation: 12/04 16:09 Chief complaint: Patient states: sickle cell crisis, started 4 days ago. Pt complaining eh3 of 10/10 pain all over. Coronavirus screen: Vaccine status: Patient reports receiving the 1st dose of the Covid vaccine. At this time, the client does not indicate any symptoms associated with coronavirus-19. Ebola Screen: No symptoms or risks identified at this time. Initial Sepsis Screen: Does the patient meet any 2 criteria? No. Patient's initial sepsis screen is negative. Does the patient have a suspected source of infection? No. Patient's initial sepsis screen is negative. Risk Assessment: Do you want to hurt yourself or someone else? Patient reports no desire to harm self or others. Onset of symptoms was December 04, 2021. 16:09 Method Of Arrival: EMS: [facility] 3 16:09 Acuity: MARILUZ 3 eh3 Triage Assessment: 16:10 General: Appears distressed, uncomfortable, Behavior is cooperative, appropriate for eh3 age, restless. Pain: Complains of pain in all over Pain currently is 10 out of 10 on a pain scale. Pain began 2-3 days ago. Is continuous. Historical: - Allergies: 16:10 Fentanyl; eh3 16:10 Morphine; eh3 16:10 Sulfa (Sulfonamide Antibiotics); eh3 16:10 Zofran; eh3 - Home Meds: 16:10 alprazolam 1 mg Oral tab [Active]; dilaudid 8 mg every 6 hours [Active]; Folic Acid eh3 Oral [Active]; Vitamin D Oral [Active]; - PMHx: 16:10 Anxiety; blood clot in lung; Sickle Cell; eh3 - PSHx: 16:10 Port placed to Left Chest; eh3 - Immunization history:: Adult Immunizations up to date, Client reports receiving the 1st dose of the Covid vaccine, Pneumococcal vaccine is up to date, Flu vaccine is not up to date. - Social history:: Patient uses marijuana, Patient/guardian denies using alcohol, tobacco products, Smoking status: Patient denies any tobacco usage or history of. Screenin:15 Abuse screen: Denies threats or abuse. Denies injuries from another. Nutritional eh3 screening: No deficits noted. Tuberculosis screening: No symptoms or risk factors identified. Fall Risk None identified. Assessment: 17:49 General: Appears in no apparent distress. uncomfortable, Behavior is calm, cooperative, ld1 appropriate for age. Pain: Complains of pain in all over Pain does not radiate. Pain currently is 9 out of 10 on a pain scale. Quality of pain is described as aching, throbbing. Neuro: Level of Consciousness is awake, alert, obeys commands, Oriented to person, place, time, situation, Appropriate for age. Cardiovascular: Capillary refill < 3 seconds Patient's skin is warm and dry. Rhythm is sinus rhythm. Respiratory: Airway is patent Respiratory effort is even, unlabored. GI: Abdomen is flat, non-distended. : No signs and/or symptoms were reported regarding the genitourinary system. EENT: No signs and/or symptoms were reported regarding the EENT system. Derm: No signs and/or symptoms reported regarding the dermatologic system. Musculoskeletal: Reports pain in all over pain. Vital Signs: 16:09 BP 110 / 73; Pulse 72; Resp 20; Pulse Ox 94% on R/A; Pain 10/10; eh3 17:16 BP 107 / 68; Pulse 51; Resp 10; Temp 98.3(TE); Pulse Ox 93% on R/A; Weight 83.91 kg; ld1 Height 5 ft. 3 in. (160.02 cm); Pain 0/10; 17:48 BP 115 / 81; Pulse 62; Resp 18; Pulse Ox 93% on R/A; Pain 9/10; ld1 19:09 BP 102 / 71; Pulse 63; Resp 18; Pulse Ox 92% on R/A; ld1 17:16 Body Mass Index 32.77 (83.91 kg, 160.02 cm) ld1 ED Course: 16:08 Patient arrived in ED. eh3 16:10 Triage completed. eh3 16:10 Arm band placed on right wrist. eh3 16:11 Nelson Michaud PA is PHCP. cp 16:11 Nelson Duffy MD is Attending Physician. cp 16:15 Patient has correct armband on for positive identification. Bed in low position. Call eh3 light in reach. Side rails up X2. 16:25 Livia Worthy, RN is Primary Nurse. ld1 17:03 XRAY Chest (1 view) In Process Unspecified. EDMS 17:06 COVID-19 SARS RT PCR (Document "Date of Onset" if Symptomatic) Sent. ld1 17:06 Accessed Port-a-Cath. using accessed w/ #19 Peters needle, ,sterile technique, per [address] protocol. Clean \\T\\ dry. Dressing intact. Good blood return. Difficult to flush. 17:49 No provider procedures requiring assistance completed. ld1 19:35 Macie Lakhani PA is Hospitalizing Provider. cp Administered Medications: 17:05 Drug: Phenergan (promethazine) 12.5 mg Route: IVP; Site: Port-a-cath; ld1 17:06 Drug: NS 0.9% 1000 ml Route: IV; Rate: 1000 ml/hr; Site: Port-a-cath; ld1 19:41 Follow up: Response: No adverse reaction; IV Status: Completed infusion; IV Intake: ld1 1000ml 17:06 Drug: Dilaudid (HYDROmorphone) 1 mg Route: IVP; Site: Port-a-cath; ld1 17:47 Drug: Dilaudid (HYDROmorphone) 1 mg Route: IVP; Site: Port-a-cath; ld1 19:41 Follow up: Response: No adverse reaction ld1 17:47 Drug: Benadryl (diphenhydrAMINE) 12.5 mg Route: IVP; Site: Port-a-cath; ld1 19:42 Follow up: Response: No adverse reaction ld1 19:28 Not Given (Patient Refused): Bebtelovimab 175 mg IV at calculated rate once; as a ld1 single dose 19:35 Drug: foLIC Acid 1 mg Route: IVPB; Site: Port-a-cath; ld1 19:42 Follow up: Response: No adverse reaction ld1 19:35 Drug: NS 0.9% 1000 ml Route: IV; Rate: 125 ml/hr; Site: Port-a-cath; ld1 19:41 Drug: Dilaudid (HYDROmorphone) 1 mg Route: IVP; Site: Port-a-cath; ld1 19:41 Drug: Benadryl (diphenhydrAMINE) 12.5 mg Route: IVP; Site: Port-a-cath; ld1 Medication: 17:49 VIS not applicable for this client. ld1 Intake: 19:41 IV: 1000ml; Total: 1000ml. ld1 Outcome: 19:35 Decision to Hospitalize by Provider. joe 12/06 15:39 Patient left the ED. jd3 Signatures: Dispatcher [employer] EDMS Nelson Michaud PA PA cp Davies, Jonathon, RN RN jd3 Livia Worthy RN RN ld1 Angely Guerra 3
[2021-12-04] MEDS ORDERED: FOLIC ACID 5 MG/ML VIAL ONE (19:39)
--- NOTE | 2021-12-04 19:56 | P.HP ---
Certification for Inpatient Patient admitted to: Inpatient With expected LOS: <2 Midnights Patient will require the following post-hospital care: None Practitioner: I am a practitioner with admitting privileges, knowledge of patient current condition, hospital course, and medical plan of care. Services: Services provided to patient in accordance with Admission requirements found in Title 42 Section 412.3 of the Code of Federal Regulations Patient History Date of Service: 12/04/21 Reason for admission: Sickle Cell Crisis History of Present Illness: Patient is a 31-year-old female with sickle cell anemia who is frequently hospitalized who presented to the ED with complaints of pain all over. She reports her pain is the same as her previous crises. Today, patient's labs appear better than her baseline but was incidentally COVID positive. WBC 12.9 (baseline 18), hgb 7.8 (baseline 7), retic count 18. No fever and does not meet criteria for sepsis. Her pain was uncontrolled in the ED and ED provider wishes to hospitalize her for further management. During previous hospitalization about 1 month ago, attending spoke to her sickle cell physician who has had her on a once a month treatment for trial medication that has been FDA approved that works to limit sickle cell pain crisis. Patient takes Dilaudid 8 mg TID at home. Allergies ondansetron HCl [From Zofran] Allergy (Mild, Verified 07/09/21 05:43) Nausea/Vomiting morphine Allergy (Verified 07/09/21 05:43) Nausea/Vomiting Sulfa (Sulfonamide Antibiotics) Allergy (Verified 07/09/21 05:43) Nausea/Vomiting Home medications list reviewed: Yes Home Medications: Folic Acid [Folic Acid*] 1 mg PO DAILY 08/01/12 Cholecalciferol (Vitamin D3) [Vitamin D 1000 Iu Tab*] 1,000 unit PO EVERY 7TH DAY 09/30/20 Apixaban [Eliquis *] 2.5 mg PO BID #60 tablet 12/21/20 Hydromorphone HCl [Dilaudid] 8 mg PO TID PRN 30 Days #60 tablet 10/25/21 ALPRAZolam [Xanax*] 1 mg PO BIDP PRN #30 tab 10/26/21 Amox/Clavulanate [Augmentin 875-125 Tab*] 875 mg PO BID #10 tab 10/26/21 Polyethyl Gly 3350 [Glycolax*] 17 gm PO DAILYPRN PRN #30 udbot 10/26/21 Promethazine Tab [Phenergan*] 25 mg PO Q4H PRN #30 tab 10/26/21 - Past Medical/Surgical History Diabetic: No -: Sickle Cell Anemia -: Pulmonary Embolism -: port-a-cath placement Psychosocial/ Personal History: Patient lives at home with her girlfriend - Family History Mother -: Other (see notes) Notes: sickle cell trait Father -: Other (see notes) Notes: sickle cell trait - Social History Smoking Status: Never smoker Alcohol use: No CD- Drugs: Yes Caffeine use: No Place of Residence: Home Review of Systems General: As per HPI Physical Examination - Physical Exam General: Alert, In no apparent distress, Mild distress HEENT: Atraumatic, PERRLA, EOMI, Sclerae nonicteric Neck: Supple, Without JVD or thyroid abnormality Respiratory: Clear to auscultation bilaterally, Normal air movement Cardiovascular: Regular rate/rhythm, Normal S1 S2 Gastrointestinal: Normal bowel sounds, No tenderness Musculoskeletal: No tenderness Integumentary: No rashes Neurological: Normal speech, Normal strength at 5/5 x4 extr, Normal tone, Normal affect - Studies Laboratory Data (last 24 hrs) 12/04/21 16:45: WBC 12.9 H, Hgb 7.8 L, Hct 22.2 L, Plt Count 455 H 12/04/21 16:45: Sodium 141, Potassium 3.8, BUN 4 L, Creatinine 0.46 L, Glucose 78, Magnesium 1.9, Total Bilirubin 3.6 H, AST 29, ALT 29, Alkaline Phosphatase 80 Assessment and Plan - Problems (Diagnosis) (1) Sickle cell pain crisis Current Visit: Yes Status: Acute (2) COVID-19 Current Visit: Yes Status: Acute (3) Chronic anemia Current Visit: Yes Status: Chronic (4) History of pulmonary embolism Current Visit: Yes Status: Chronic - Plan -Supportive measures with IV NS -Pain management and antiemetics as needed. -WBC lower than baseline and hgb stable. Monitor CBC. -Retic count daily -Supplemental O2 PRN. Monitor pulse ox -Vitamin C, zinc, and folic acid daily -Incidentally COVID+. Isolation precautions in place. Patient denies symptoms. She had 1 dose of COVID vaccine. Declined antibodies in ED. -Monitor and replete electrolytes per protocol -Reconcile and continue home medications -Continue home eliquis for VTE ppx -Full code Discharge Plan: Home Plan to discharge in: 48 Hours - Advance Directives Does patient have a Living Will: No Does patient have a Durable POA for Healthcare: No - Code Status/Comfort Care Code Status Assessed: Yes (Full) Critical Care: No Time Spent Managing Pts Care (In Minutes): 50
[2021-12-04 21:45] LABS: Anisocytosis 2+; Blood Morphology Comment NOTED (NOT SEEN); Platelet Estimate INCR; Platelets, Giant OCC
[2021-12-04 21:46] LABS: Poikilocytosis 2+; Polychromasia 2+
[2021-12-04] MEDS: NA CHLORIDE 0.9% 1,000 ML IV SCH (21:48)
[2021-12-04] MEDS ORDERED: ALBUTEROL 2.5 MG/3 ML NEB SOL NEB PRN (21:48)
[2021-12-04] MEDS: APIXABAN 2.5 MG TABLET PO SCH (21:48)
[2021-12-04] MEDS: PROMETHAZINE INJ 25 MG/ML AMP IV PRN (21:50)
[2021-12-04] MEDS: HYDROMORPHONE HCL 2 MG/ML inj IV PRN (21:50)
[2021-12-04] MEDS ORDERED: APIXABAN 5 MG TABLET ONE (22:06)
[2021-12-04] MEDS: DIPHENHYDRAMINE 50 MG/ML VIAL IV PRN (22:42)
[2021-12-05] MEDS ORDERED: PROMETHAZINE INJ 25 MG/ML AMP ONE ×7 (01:58→21:53)
[2021-12-05] MEDS ORDERED: HYDROMORPHONE HCL 2 MG/ML inj ONE ×3 (01:59→09:59)
[2021-12-05] MEDS ORDERED: DIPHENHYDRAMINE 50 MG/ML VIAL ONE ×6 (01:59→21:53)
[2021-12-05] MEDS: PROMETHAZINE INJ 25 MG/ML AMP IV PRN ×6 (02:11→21:50)
[2021-12-05] MEDS: HYDROMORPHONE HCL 2 MG/ML inj IV PRN ×3 (02:12→10:00)
[2021-12-05] MEDS: DIPHENHYDRAMINE 50 MG/ML VIAL IV PRN ×6 (02:13→21:51)
[2021-12-05 03:14] LABS: Hematocrit 21.7 % (36.0-45.0); MCV 98.4 fL (80-100); MPV 8.3 fL (7.6-11.3); RBC Red Blood Cell Count 2.21 M/uL (3.86-4.86)
[2021-12-05 03:19] LABS: Magnesium 1.8 mg/dL (1.8-2.4); Phosphorus 3.4 mg/dL (2.5-4.9); Potassium 3.8 mmol/L (3.5-5.1)
[2021-12-05 03:55] LABS: Blood Morphology Comment NOTED (NOT SEEN); Platelet Estimate ADEQ
[2021-12-05 03:56] LABS: Polychromasia 2+; Target Cells 2+
[2021-12-05 04:22] VITALS: BMI 32.8
[2021-12-05] MEDS: FOLIC ACID 1 MG TABLET PO SCH (09:00)
[2021-12-05] MEDS: ZINC SULFATE 220 MG CAP PO SCH (09:00)
[2021-12-05] MEDS: ASCORBIC ACID 500 MG TABLET PO SCH (09:00)
[2021-12-05] MEDS: APIXABAN 2.5 MG TABLET PO SCH ×2 (09:00→21:00)
[2021-12-05] MEDS ORDERED: NALOXONE 0.4 MG/ML VIAL IV PRN (09:23)
--- NOTE | 2021-12-05 09:26 | P.PN ---
Subjective Date of Service: 12/05/21 Chief Complaint: Sickle Cell Crisis Subjective: No new changes Physical Examination - Vital Signs Temperature: 98.1 F Blood Pressure: 96/66 Pulse: 57 Respirations: 15 Pulse Ox (%): 100 - Physical Exam General: Alert, Oriented x3 HEENT: Atraumatic, Normocephalic Respiratory: Normal air movement Gastrointestinal: Soft and benign Musculoskeletal: No swelling Neurological: Normal speech - Studies Laboratory Data (last 24 hrs) 12/04/21 16:45: WBC 12.9 H, Hgb 7.8 L, Hct 22.2 L, Plt Count 455 H 12/04/21 16:45: Sodium 141, Potassium 3.8, BUN 4 L, Creatinine 0.46 L, Glucose 78, Magnesium 1.9, Total Bilirubin 3.6 H, AST 29, ALT 29, Alkaline Phosphatase 80
[2021-12-05] MEDS ORDERED: ASCORBIC ACID 500 MG TABLET ONE (09:58)
[2021-12-05] MEDS ORDERED: FOLIC ACID 1 MG TABLET ONE (09:59)
[2021-12-05] MEDS ORDERED: APIXABAN 5 MG TABLET ONE ×2 (10:00→21:53)
[2021-12-05] MEDS ORDERED: ZINC SULFATE 220 MG CAP ONE (10:00)
--- NOTE | 2021-12-05 12:38 | EKG ---
Test Date: 2021-12-04 Test Time: 16:50:21 Fagoter: [id number] MEASUREMENT RESULTS: Intervals: Rate: 64 KS: 142 QRSD: 76 QT: 422 QTc: 435 [place]on: P: 14 KS: 142 QRS: 71 T: 55 INTERPRETIVE STATEMENTS: Normal sinus rhythm Normal ECG Compared to ECG 09/15/2021 06:16:55 Sinus bradycardia no longer present Sinus arrhythmia no longer present Electronically Signed On 12-05-21 12:36:51 CDT by Dev Zavala
[2021-12-05] MEDS ORDERED: HYDROMORPHONE ORAL 4 MG TAB PO PRN (13:44)
[2021-12-05] MEDS: HYDROMORPHONE ORAL 4 MG TAB PO SCH ×2 (14:00→20:00)
[2021-12-05] MEDS: HYDROMORPHONE HCL 1 MG/ML INJ IV PRN ×3 (14:14→21:52)
[2021-12-05] MEDS ORDERED: HYDROMORPHONE HCL 1 MG/ML INJ ONE ×3 (14:14→21:53)
[2021-12-05] MEDS ORDERED: PROMETHAZINE 25 MG/SUPP PR ONE (14:28)
[2021-12-05] MEDS ORDERED: ALBUTEROL 2.5 MG/3 ML NEB SOL NEB PRN (15:00)
[2021-12-05] MEDS: NA CHLORIDE 0.9% 1,000 ML IV SCH ×2 (17:48→21:52)
[2021-12-05] MEDS ORDERED: NA CHLORIDE 0.9% 1,000 ML ONE (21:54)
[2021-12-06] MEDS: HYDROMORPHONE ORAL 4 MG TAB PO SCH ×3 (01:38→14:00)
[2021-12-06] MEDS ORDERED: DIPHENHYDRAMINE 50 MG/ML VIAL ONE ×4 (01:49→13:54)
[2021-12-06] MEDS ORDERED: PROMETHAZINE INJ 25 MG/ML AMP ONE ×4 (01:49→13:53)
[2021-12-06] MEDS ORDERED: HYDROMORPHONE HCL 1 MG/ML INJ ONE ×4 (01:50→13:54)
[2021-12-06] MEDS: NA CHLORIDE 0.9% 1,000 ML IV SCH (03:48)
[2021-12-06] MEDS: PROMETHAZINE INJ 25 MG/ML AMP IV PRN ×3 (06:00→14:18)
[2021-12-06] MEDS: DIPHENHYDRAMINE 50 MG/ML VIAL IV PRN ×3 (06:01→14:19)
[2021-12-06] MEDS: HYDROMORPHONE HCL 1 MG/ML INJ IV PRN ×3 (06:01→14:16)
[2021-12-06] MEDS ORDERED: ZINC SULFATE 220 MG CAP ONE (11:22)
[2021-12-06] MEDS: ZINC SULFATE 220 MG CAP PO SCH (11:22)
[2021-12-06] MEDS: ASCORBIC ACID 500 MG TABLET PO SCH (11:22)
[2021-12-06] MEDS ORDERED: ASCORBIC ACID 500 MG TABLET ONE (11:22)
[2021-12-06] MEDS: APIXABAN 2.5 MG TABLET PO SCH (11:22)
[2021-12-06] MEDS: FOLIC ACID 1 MG TABLET PO SCH (11:22)
[2021-12-06] MEDS ORDERED: FOLIC ACID 1 MG TABLET ONE (11:22)
--- NOTE | 2021-12-06 13:14 | P.DS ---
Admission Date: 12/04/21 Discharge Date: 12/06/21 Disposition: ROUTINE DISCHARGE Discharge Condition: GOOD Reason for Admission: Sickle Cell Crisis Brief History of Present Illness: Patient is a 31-year-old female with sickle cell anemia who is frequently hospitalized who presented to the ED with complaints of pain all over. She reports her pain is the same as her previous crises. Today, patient's labs appear better than her baseline but was incidentally COVID positive. WBC 12.9 (baseline 18), hgb 7.8 (baseline 7), retic count 18. No fever and does not meet criteria for sepsis. Her pain was uncontrolled in the ED and ED provider wishes to hospitalize her for further management. During previous hospitalization about 1 month ago, attending spoke to her sickle cell physician who has had her on a once a month treatment for trial medication that has been FDA approved that works to limit sickle cell pain crisis. Patient takes Dilaudid 8 mg TID at home. Hospital Course: Was put into the acute medicine service for management of COVID-19 disease and suspected sickle cell crisis. She was started on IV fluid and pain control with Dilaudid. She improved significantly with above measures however she continues to have persistent pain which we deemed chronic secondary to sickle cell anemia related issue. 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 Vital Signs/Physical Exam: Temp Pulse Resp BP Pulse Ox 99.1 F 66 15 101/58 L 99 12/06/21 00:00 12/06/21 12:00 12/06/21 12:00 12/06/21 12:00 12/06/21 12:00 General: Alert, Oriented x3 HEENT: Atraumatic, Normocephalic Neck: Supple Cardiovascular: Regular rate/rhythm, Normal S1 S2 Gastrointestinal: Soft and benign Musculoskeletal: No swelling Neurological: Normal speech Laboratory Data at Discharge: WBC 11.9 K/uL (4.3-10.9) H 12/05/21 02:50 Hgb 7.7 g/dL (12.0-15.0) L 12/05/21 02:50 Hct 21.7 % (36.0-45.0) L 12/05/21 02:50 Plt Count 402 K/uL (152-406) 12/05/21 02:50 Sodium 142 mmol/L (136-145) 12/05/21 02:50 Potassium 3.8 mmol/L (3.5-5.1) 12/05/21 02:50 BUN 4 mg/dL (7-18) L 12/05/21 02:50 Creatinine 0.51 mg/dL (0.55-1.3) L 12/05/21 02:50 Glucose 77 mg/dL (74-106) 12/05/21 02:50 Phosphorus 3.4 mg/dL (2.5-4.9) 12/05/21 02:50 Magnesium 1.8 mg/dL (1.8-2.4) 12/05/21 02:50 Total Bilirubin 3.6 mg/dL (0.2-1.0) H 12/04/21 16:45 AST 29 U/L (15-37) 12/04/21 16:45 ALT 29 U/L (12-78) 12/04/21 16:45 Alkaline Phosphatase 80 U/L (45-117) 12/04/21 16:45 Home Medications: Folic Acid [Folic Acid*] 1 mg PO DAILY 08/01/12 Cholecalciferol (Vitamin D3) [Vitamin D 1000 Iu Tab*] 1,000 unit PO EVERY 7TH DAY 09/30/20 Apixaban [Eliquis *] 2.5 mg PO BID #60 tablet 12/21/20 Hydromorphone HCl [Dilaudid] 8 mg PO TID PRN 30 Days #60 tablet 10/25/21 ALPRAZolam [Xanax*] 1 mg PO BIDP PRN #30 tab 10/26/21 Polyethyl Gly 3350 [Glycolax*] 17 gm PO DAILYPRN PRN #30 udbot 10/26/21 Promethazine Tab [Phenergan*] 25 mg PO Q4H PRN #30 tab 10/26/21 Apixaban [Eliquis *] 2.5 mg PO BID 12/06/21 Ascorbic Acid [Vitamin C*] 500 mg PO DAILY 12/06/21 Hydromorphone [Dilaudid*] 4 mg PO Q6H PRN 5 Days #20 tab 07/27/22 New Medications: Hydromorphone [Dilaudid*] 4 mg PO Q6H PRN 5 Days #20 tab PRN Reason: Pain Scale 8-10 (Severe) Diet: Regular Activity: Ad gina Followup: Neil Benitez MD [Primary Care Provider] -
[2021-12-06] MEDS ORDERED: HEPARIN 500 UNIT/5 ML SYR IV PRN (13:41)
[2021-12-06] MEDS ORDERED: HEPARIN 500 UNIT/5 ML SYR IV ONE (13:57)
[2021-12-06 17:44] VITALS: TEMP 98.3
[2021-12-06 17:50] VITALS: BP 102/71; O2SAT 92
== END 2021-12-06 15:31 | disposition home or self-care (01) | DRG 811 ==
LOC: ER 15:57 → ERHOLD 19:46
PROVIDERS: ADMIT Internal Medicine Nephrology; ATTEND Internal Medicine
DX: D57.00 Hb-SS disease with crisis, unspecified (principal); U07.1 COVID-19; G89.29 Other chronic pain; F41.9 Anxiety disorder, unspecified; Z88.2 Allergy status to sulfonamides; Z88.6 Allergy status to analgesic agent; Z88.8 Allergy status to other drugs, medicaments and biological substances; Z86.711 Personal history of pulmonary embolism; Z79.01 Long term (current) use of anticoagulants
CPT/HCPCS: 36415; 71045; 80048; 80076; 81003; 81025; 83735; 84100; 84484; 85025; 85044; 93005; 96361; 96374; 96375; 99285; J1170; J1200; J1642; J2550; J7030; U0003

== ENCOUNTER 2021-12-13 17:33 | Inpatient (IN) | payer OTHER ==
--- OUTSIDE RECORDS SUMMARY | 2021-12-13 17:55 | XMS REPORT | Continuity of Care Document ---
:1990 Author Organization [facility] t Address [address] [place] [address] Support Name Relationship Address Phone [facility] [address] [place] [address] VARUN ORTEGA N Y [address] [place] [address] REHAN CHEEMA Unavailable [id number] [facility] [phone] [place] [address] ESTHER MCBRIDE OT N [facility] [address] [phone] [place] [address] [place] [address] [address] [facility] [address] [phone] [place] [address] MARÍA ELENA ORTEGA Unavailable [address] [facility] [phone] [place] [address] NELDA ORTEGA Unavailable [address] [facility] [phone] [place] [address] Pre[address] Ortega Brother [address] [place] [address] MD AMY ALONZO JR Admitting Provider [address] [facility] [address] [place] [address] TRAY SIDDIQUI PA-C Primary Care Physician [address] [place] [address] MD CAROLINA LILLY MD A Emergency Provider [address] [facility] [address] [phone] [place] [address] NAIMA MULLEN, ORIANA Attending Provider [address] [place] [address] CHAU MAGANA MD Emergency Provider [address] [facility] [address] [place] [address] PHYSICIAN, NO Primary Care Physician Unavailable Unavailab MD AMARILIS Jones MD Emergency Provider [address] [place] [address] OTHER, ENTER NAME IN Primary Care Physician Unavailable Unav ailable NOTES MD JENNIFER SHIN MD Emergency Provider [address] [place] [address] MD TYRON MASON MD Admitting Provider [address] [phone] [place] [address] MORIS FRANCIS Primary Care Physician [address] [place] [address] MD RODNEY CROWE Emergency Provider [place] [address] MD TYLER WRIGHT Emergency Provider Unavailable Unavailable MD SAMUEL KUMAR Emergency Provider [address] [place] [address] MD LESLY NEWTON Emergency Provider [address] [facility] [place] [address] Care Team Providers Name Role Phone Shaikh PAZ, Radha [facility] Primary Care Physician [phone] AUR[facility]A GUTIERREZ Attending Clinician Unavailable RAHEL CORREA Attending Clinician Unavailable JENNIFER SHAH Attending Clinician Unavailable AAMIR MCCLOUD I Attending Clinician Unavailable ASHLEY WOODRUFF Attending Clinician Unavailable AURORA GUTIERREZ Admitting Clinician Unavailable ENRIQUE PEGUERO Admitting Clinician Unavailable EARL CARTER Admitting Clinician Unavailable Payers Payer Name Policy Type Policy Number Effective Date Expiration Date S ource Problems Condition Condition Condition Status Onset Resolution Last Treating Co mments Source Name Details Category Date Date Treatment Clinician Date Leukocytos Leukocytos Disease Active [facility] [place] Pneumonia Pneumonia Disease [facility] 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 [facility] Center 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[facility] crisis crisis 00:[facility] 00 Center Allergies, Adverse Reactions, Alerts Allergy Allergy Status Severity Reaction(s) Onset Inactive Treating Comm ents Source Name Type Date Date Clinician Ondanset Drug Active Nausea And [facility] Hcl Intolera Vomiting 07[facility]10 [facility] (Pf[facility] 00 Center morphine DA Active [facility] 3[facility] [place] [facility] TEGEDERM DA Active [facility] DRESSING [facility]- [place] [facility] Family History Family Member Diagnosis Comments Start Date Stop Date Source Natural mother Sickle cell trait [facility] Natural sister Unremarkable [facility] Natural brother Unremarkable [facility] Natural father Seizures [facility] Natural father Sickle cell trait [facility] Social History Social Habit Start Date Stop Date Quantity Comments Source Alcohol intake 2018-08-02 2018-08-[address] [facility] 00:00:00 00:00:00 non-drinker of Medical Ce nter alcohol (finding) Tobacco use and 2015-07-10 2015-07-[address] [facility] kes exposure 00:00:00 00:00:00 Medical Center Sex Assigned At [address] [facility] Ariana kes 00:00:00 00:00:00 [facility] Smoking Status Start Date Stop Date Source Never smoker [facility] Medications Ordered Filled Start Stop Current [...] tablet 58 (two) Center times daily. ALPRAZolam 2019- Yes 1mg Take [address] (XANAX) 1 3-31 by mouth 2 [facility] s MG tablet 14:39: (two) Medical 58 times Center daily as needed for Anxiety. VITAMIN D2 Yes 1{capsu Q7D Take [address] 50,000 unit 2-25 le} capsule by Ariana kes capsule 00:00: mouth once Medi rita 00 a week. [place] VITAMIN D2 Yes 1{capsu Q7D Take [address] 50,000 unit 2-25 le} capsule by Ariana kes capsule 00:00: mouth once Medi rita 00 a week. [place] VITAMIN D2 Yes 1{capsu Q7D Take [address] 50,000 unit 2-25 le} capsule by Ariana kes capsule 00:00: mouth once Medi rita 00 a week. [place] VITAMIN D2 Yes 1{capsu Q7D Take [address] 50,000 unit 2-25 le} capsule by Ariana kes capsule 00:00: mouth once Medi rita 00 a week. [place] VITAMIN D2 Yes 1{capsu Q7D Take 1 [...] Medica l Center cervix (procedure) [code = 108083437] Future Scheduled 2012-09-[address] [facility] Test 00:00:00 malignant neoplasm of Medica l Center cervix (procedure) [code = 574356520] Future Scheduled 2012-09-[address] [facility] Test 00:00:00 malignant neoplasm of Medica l Center cervix (procedure) [code = 006627211] Future Scheduled 2012-09-[address] [facility] Test 00:00:00 malignant neoplasm of Medica l Center cervix (procedure) [code = 220902204] Future Scheduled 2012-09-[address] [facility] Test 00:00:00 malignant neoplasm of Medica l Center cervix (procedure) [code = 229084804] Future Scheduled [address] Test 00:00:00 (procedure) [code = [facility] 52584976] Future Scheduled [address] [facility] Test 00:00:00 (procedure) [code = [facility] 39382938] Future Scheduled [address] [facility] Test 00:00:00 (procedure) [code = [facility] 52560992] Future Scheduled [address] [facility] Test 00:00:00 (procedure) [code = [facility] 78662715] Future Scheduled [address] [facility] Test 00:00:00 (procedure) [code = [facility] 09307527] Future Scheduled 2010-09-05 DTAP/TDAP/TD VACCINES CH I [...] 2021-06-08 Inpatient E PERLITA GUTIERREZ MED [address] [facility] 04:10:00 13:24:00 AURORA 2021-06-03 2021-06-03 Emergency E SUNNY GABRIELE [facility] [address] [facility] 02:02:00 14:43:00 RAHEL 2021-04-04 2021-04-04 Emergency E JENNIFER SHAH [facility] [id number] [facility] 02:21:00 06:06:00 2021-02-26 2021-03-04 Inpatient E AME [facility] 7523 [facility] 15:00:00 16:50:00 AAMIR [...] (test code = 367) Nonreactive Nonrea ctive Scales Inspector ID - DBHEPATITIS A ANTIBODY, [id number] 11:45:17 Test Item Value Reference Range Interpretation Comments HEPATITIS A IGM ANTIBODY (BEAKER) Nonreactive Nonreactive (test code = 498) Scales Inspector ID - DBHEPATITIS B CORE ANTIBODY, [id number] 11:45:17 Test Item Value Reference Range Interpretation Comments HEPATITIS B CORE TOTAL ANTIBODY Nonreactive Nonreactive (BEAKER) (test code = 497) Scales Inspector ID - DBHEPATITIS B SURFACE [id number] 11:45:12 Test Item Value Reference Range Interpretation Comments HEPATITIS B SURFACE ANTIGEN (2) Nonreactive Nonreactive (BEAKER) (test code = 2585) Specimen is considered negative for HBsAg.HEPATITIS PANEL, [id number] 19:51:14 Test Item Value Reference Range Interpretation Comments HEPATITIS A IGM ANTIBODY (BEAKER) Nonreactive Nonreactive (test code = 498) HEPATITIS B CORE IGM ANTIBODY Nonreactive Nonreactive (BEAKER) (test code = 645) HEPATITIS C ANTIBODY (BEAKER) Nonreactive Nonreactive (test code = 367) HEPATITIS B SURFACE ANTIGEN (2) Nonreactive Nonreactive (BEAKER) (test code = 2585) Scales Inspector ID - DBHEPATITIS A ANTIBODY, [id number] 19:51:14 Test Item Value Reference Range Interpretation Comments HEPATITIS A IGM ANTIBODY (BEAKER) Nonreactive Nonreactive (test code = 498) HEPATITIS B CORE ANTIBODY, [id number] 19:51:14 Test Item Value Reference Range Interpretation Comments HEPATITIS B CORE IGM ANTIBODY Nonreactive Nonreactive (BEAKER) (test code = 645) HEPATITIS B SURFACE [id number] 19:51:14 Test Item Value Reference Range Interpretation Comments HEPATITIS B SURFACE ANTIGEN (2) Nonreactive Nonreactive (BEAKER) (test code = 2585) Specimen is considered negative for HBsAg.HEPATITIS C [id number] 19:51:14 Test Item Value Reference Range Interpretation Comments HEPATITIS C ANTIBODY (BEAKER) Nonreactive Nonreactive (test code = 367) SARS-COV2/RT-PCR ([facility])2019-11-14 17:47:00 Test Item Value Reference Range Interpretation Comments SARS-COV2/RT-PCR (test code = Negative Not Detected, Negative 3113074) SARS-COV-2 PERFORMING LAB [facility] (test code = 2945842) Negative results do not preclude SARS-CoV-2 infection [...] of the Act.Fact Sheet for Healthcare Pro viders:https://www.Wapi/Documents/Xpert%20Xpress%20SARS%20CoV-2/Fact%20Sh eets/302-3802%84OOUV-AKK-0%20HEALTHCARE%20PROVIDERS%20FACT%20SHEET.pdfFact Sheet for Healthcare Patients:https://www.Rubysophic/Documents/Xpert%20Xpress%20SARS%20CoV-2/Fact%20Sheets/302-3801%20SARS-COV -2%20PATIENT%20FACT%20SHEET.pdfPerforming Laboratory:[facility] [place], [place] [address]YRT W/PLT COUNT & AUTO DIFFERENTIAL 2018-08-10 08:25:00 [...] 3438) Received comment: User comments: Slide comments:RETICULOCYTE [id number] 08:06:00 Test Item Value Reference Range Interpretation Comments RETICULOCYTE COUNT PCT (BEAKER) (test 25.0 % 0.5-1.7 H code = 575) CBC W/PLT COUNT & AUTO [id number] 09:27:00 Test Item Value Reference Range Interpretation [...] 3438) Received comment: User comments: Slide comments:RETICULOCYTE [id number] 05:01:00 Test Item Value Reference Range Interpretation Comments RETICULOCYTE COUNT PCT (BEAKER) (test 21.6 % 0.5-1.7 H code = 575) CBC W/PLT COUNT & AUTO [id number] 15:17:00 Test Item Value Reference Range Interpretation [...] H (BEAKER) (test code = 413) RETICULOCYTE [id number] 08:44:00 Test Item Value Reference Range Interpretation Comments RETICULOCYTE COUNT PCT (BEAKER) (test 23.8 % 0.5-1.7 H code = 575) BLOOD [id number] 14:01:00 Test Item Value Reference Range Interpretation Comments CULTURE (BEAKER) (test No growth in 5 days code = 1095) BLOOD [id number] 12:01:00 Test Item Value Reference Range Interpretation Comments CULTURE (BEAKER) (test No growth in 5 days code = 1095) CBC W/PLT COUNT & AUTO [id number] 11:38:00 Test Item Value Reference Range Interpretation [...] 3438) Received comment: User comments: Slide comments:RETICULOCYTE [id number] 07:44:00 Test Item Value Reference Range Interpretation Comments RETICULOCYTE COUNT PCT (BEAKER) (test 27.0 % 0.5-1.7 H code = 575) RETICULOCYTE [id number] 07:19:00 Test Item Value Reference Range Interpretation Comments RETICULOCYTE COUNT PCT (BEAKER) (test 22.7 % 0.5-1.7 H code = 575) CBC W/PLT COUNT & AUTO [id number] 12:07:00 Test Item Value Reference Range Interpretation [...] 3438) Received comment: User comments: Slide comments:RETICULOCYTE [id number] 06:14:00 Test Item Value Reference Range Interpretation Comments RETICULOCYTE COUNT PCT (BEAKER) (test 21.9 % 0.5-1.7 H code = 575) [id number] 06:02:00 Test Item Value Reference Range Interpretation Comments PHOSPHORUS (BEAKER) (test code = 3.8 mg/dL 2.3-4.7 604) [id number] 06:02:00 Test Item Value Reference Range Interpretation Comments MAGNESIUM (BEAKER) (test code = 1.8 mg/dL 1.6-2.6 627) BASIC METABOLIC [id number] 06:02:00 Test Item Value Reference Range Interpretation [...] Specimen moderately ictericCBC W/PLT COUNT & AUTO [id number] 09:09:00 Test Item Value Reference Range Interpretation [...] = 3438) Received comment: User comments: Slide comments:[id number] 04:11:00 Test Item Value Reference Range Interpretation Comments PHOSPHORUS (BEAKER) (test code = 3.3 mg/dL 2.3-4.7 604) [id number] 04:11:00 Test Item Value Reference Range Interpretation Comments MAGNESIUM (BEAKER) (test code = 1.6 mg/dL 1.6-2.6 627) BASIC METABOLIC [id number] 04:11:00 Test Item Value Reference Range Interpretation [...] FOR DIALYSIS PATIEN TS. Specimen slightly ictericRETICULOCYTE [id number] 03:54:00 Test Item Value Reference Range Interpretation Comments RETICULOCYTE COUNT PCT (BEAKER) (test 20.4 % 0.5-1.7 H code = 575) CBC W/PLT COUNT & AUTO [id number] 18:30:00 Test Item Value Reference Range Interpretation [...] = 413) CBC W/PLT COUNT & AUTO [id number] 10:51:00 Test Item Value Reference Range Interpretation [...] K/uL 0.00-0.00 H (CELLAVISION)(BEAKER) (test code = 1848) TOTAL COUNTED (BEAKER) (test code 100 = [...] 3438) Received comment: User comments: Slide comments:RETICULOCYTE [id number] 10:08:00 Test Item Value Reference Range Interpretation Comments RETICULOCYTE COUNT PCT (BEAKER) (test 14.4 % 0.5-1.7 H code = 575) CBC W/PLT COUNT & AUTO [id number] 09:30:00 Test Item Value Reference Range Interpretation [...] K/uL 0.00-0.00 H (CELLAVISION)(BEAKER) (test code = 4288) TOTAL COUNTED (BEAKER) (test code 100 = [...] = 3438) Received comment: User comments: Slide comments:[id number] 03:32:00 Test Item Value Reference Range Interpretation Comments PHOSPHORUS (BEAKER) (test code = 3.5 mg/dL 2.3-4.7 604) [id number] 03:32:00 Test Item Value Reference Range Interpretation Comments MAGNESIUM (BEAKER) (test code = 1.8 mg/dL 1.6-2.6 627) BASIC METABOLIC [id number] 03:32:00 Test Item Value Reference Range Interpretation [...] ictericCT, CHEST WITH IV CONTRAST- PE TEST [id number] 14:01:00FINAL REPORT CT scan of the chest. [...] iterative reconstruction technique. FINDINGS: The mediastinum demonstrates a5 mm nodule in the left lobe of [...] is a 7 mm subpleural nodule in theleft upper lobe, stable from previous on image 12. Other reticulonodular markings are seen scatteredthroughout the lung cruz with small groundglass opacities. Atelectasis or fibrosis in the lung bases. Bone windows demonstrate no acute abnormality. IMPRESSION:1. Reticulonodular pulmonary opacities for which some degree of scarring or inflammatory change cannot be excluded but this is significantlyless pronounced than on previous.2. Cavitary lesion in the right upper lung field, significantly smaller than on previous. Signed: Ej Elaine MDReport Verified Date/Time: 08/02/2018 14:01:29 Reading Location: [facility] C0X [facility] Consult Reading Room URINALYSIS W/ REFLEX URINE CULTURE 2018-08-02 11:27:00 Test Item Value Reference Range Interpretation [...] 516) SOURCE(BEAKER) (test code = 2795) SCREEN, [id number] 11:15:00 Test Item Value Reference Range Interpretation Comments TEST URINE (BEAKER) (test Negative code = 583) RETICULOCYTE [id number] 04:43:00 Test Item Value Reference Range Interpretation Comments RETICULOCYTE COUNT PCT (BEAKER) (test 13.2 % 0.5-1.7 H code = 575) RAD, CHEST, 2 [id number] 03:54:00Reason for exam:->SICKLE CELL PAIN CRISISIs the patient ?->UnknownShould this be performed at the bedside?->NoFINAL REPORT Examination: Two view Chest X- ray. CLINICAL HISTORY: Chest pain, history of sickle cell anemia COMPARISON: 7516 The cardiac silhouette is stable in its prominent size.There is central pulmonary vascular engorgement and bilateral perihilar interstitial opacity, suggesting pulmonary edema. There is no focal consolidation, pneumothorax, large pleural effusion or acute bony abnormality. A right upper lobe cavitary lesion seen on imaging at 2016 has resolved. A left IJ chest port is in place. Signed: Costa Eaton MDReport Verified Date/Time: 08/02/2018 03:54:52 Reading Location: [address] Reading Room CBC W/PLT COUNT & AUTO [id number] 03:04:00 Test Item Value Reference Range Interpretation [...] (BEAKER) (test code = 417) COMPREHENSIVE METABOLIC [id number] 02:42:00 Test Item Value Reference Range Interpretation [...]
[2021-12-13 19:56] LABS: Hematocrit 25.7 % (36.0-45.0); Lymphocytes % 4.5 % (15.3-44.8); MCV 98.4 fL (80-100); MPV 8.4 fL (7.6-11.3); RBC Red Blood Cell Count 2.61 M/uL (3.86-4.86)
[2021-12-13 20:01] LABS: Protime INR 1.12
[2021-12-13 20:10] LABS: Potassium 3.1 mmol/L (3.5-5.1)
[2021-12-13] MEDS ORDERED: PROMETHAZINE INJ 25 MG/ML AMP ONE (20:10)
[2021-12-13] MEDS ORDERED: HYDROMORPHONE HCL 1 MG/ML INJ ONE ×2 (20:11→21:23)
[2021-12-13] MEDS ORDERED: NA CHLORIDE 0.9% 1,000 ML ONE (20:11)
--- NOTE | 2021-12-13 21:02 | EDPHYS ---
Physician Documentation [facility] Name: Gume Ortega Age: 31 yrs Sex: Female : 1990 Arrival Date: 12/13/2021 Time: 17:38 Bed 13 Private MD: ED Physician Ariel Moreno HPI: 12/13 19:36 This 31 yrs old Black Female presents to ER via EMS with complaints of Sickle Cell rn Crisis. 19:36 Pt reports having sickle crisis, began yesterday, worse today, describes it as "pain rn all over". Identical to previous episodes. No fever/cough/chest pain. Does report abd pain and nausea/vomiting. . Onset: The symptoms/episode began/occurred yesterday. Severity of symptoms: At their worst the symptoms were moderate in the emergency department the symptoms are unchanged. The patient has experienced similar episodes in the past. The patient has not recently seen a physician. 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 - Family history:: not pertinent. - Hospitalizations: : The patient was recently seen at [facility]. ROS: 19:36 Constitutional: Negative for fever, chills, and weight loss, Eyes: Negative for injury, rn pain, redness, and discharge, Neck: Negative for injury, pain, and swelling, Cardiovascular: Negative for chest pain, palpitations, and edema, Respiratory: Negative for shortness of breath, cough, wheezing, and pleuritic chest pain, Abdomen/GI: Negative for diarrhea, and constipation Back: Negative for injury and pain, MS/Extremity: Negative for injury and deformity, Skin: Negative for injury, rash, and discoloration, Neuro: Negative for headache, weakness, numbness, tingling, and seizure. Exam: 19:36 Constitutional: This is a well developed, well nourished patient who is awake, alert, rn appears uncomfortable Head/Face: Normocephalic, atraumatic. Eyes: Periorbital areas with no swelling, redness, or edema. ENT: dry MM Cardiovascular: Regular rate and rhythm. No pulse deficits. Respiratory: No increased work of breathing, no retractions or nasal flaring. Abdomen/GI: soft, no focal tenderness or rebound Skin: Warm, dry MS/ Extremity: Pulses equal, no cyanosis Neuro: Awake and alert, GCS 15 Vital Signs: 17:35 BP 170 / 96; Pulse 64; Resp 17; Temp 98.1(TE); Pulse Ox 100% on R/A; Weight 77.56 kg tw2 (R); Height 5 ft. 2 in. (157.48 cm); Pain 10/10; 17:35 Body Mass Index 31.28 (77.56 kg, 157.48 cm) tw2 MDM: 19:10 Patient medically screened. rn 20:50 Differential Diagnosis sickle cell crisis. Data reviewed: vital signs, nurses notes, rn trauma test result(s), and as a result, I will admit patient. Counseling: I had a detailed discussion with the patient and/or guardian regarding: the historical points, exam findings, and any diagnostic results supporting the discharge/admit diagnosis, lab results, the need for further work-up and treatment in the hospital. Response to treatment: There is no appreciated change of the patient's symptoms at this time, and as a result, I will admit patient. Admission orders: after a detailed discussion of the patient's condition and case, the admit orders are written by me. ED course: Pt still crying in pain, will repeat dilaudid dose and admit to hospitalist service.. 12/13 19:13 Order name: CBC with Diff; Complete Time: :51 rn 12/13 19:13 Order name: Basic Metabolic Panel; Complete Time: 20:51 rn 12/13 19:13 Order name: Protime (+inr); Complete Time: 20: rn 12/13 19:13 Order name: Ptt, Activated; Complete Time: 20: rn 12/13 19:13 Order name: Retic Count; Complete Time: 21:51 rn 12/13 19:13 Order name: Type And Screen; Complete Time: 20:51 rn 12/13 19:13 Order name: Urine Microscopic Only rn 12/13 20:44 Order name: Manual Differential; Complete Time: 21:51 EDMS 12/14 00:55 Order name: SARS RAPID bb 12/14 01:20 Order name: SARS-COV-2 Antigen Rapid EDMS 12/14 06:32 Order name: CBC with Automated Diff EDMS 12/14 06:32 Order name: Retic Count EDMS 12/14 06:32 Order name: Comprehensive Metabolic Panel EDMS 12/14 08:49 Order name: Manual Differential EDMS 12/13 19:13 Order name: IV Start; Complete Time: 20:15 rn 12/13 19:13 Order name: O2 Sat Monitoring; Complete Time: 20:15 rn 12/14 08:47 Order name: RAD EDMS Administered Medications: 20:10 Drug: Phenergan (promethazine) 12.5 mg Route: IVP; Site: Port-a-cath; 12/14 00:37 Follow up: Response: No adverse reaction [facility] 12/13 20:10 Drug: NS 0.9% 1000 ml Route: IV; Rate: 1000 ml; [facility]; 21:00 Follow up: IV Status: Completed infusion; IV Intake: 1000ml [facility] 20:12 Drug: Dilaudid (HYDROmorphone) 1 mg Route: IVP; Site: Port-a-cath; 12/14 00:37 Follow up: Response: No adverse reaction [facility] 12/13 21:19 Drug: Dilaudid (HYDROmorphone) 1 mg Route: IVP; Site: Port-a-cath; [facility] 12/14 01:19 Drug: Potassium Chloride 20 mEq Route: IV; Rate: calculated rate; Site: Port-a-[place] [address] Disposition Summary: 12/13/21 21:02 Hospitalization Ordered Hospitalization Status: Observation rn Provider: Jimenez Salinas rn Condition: Stable rn Problem: an acute exacerbation rn Symptoms: are unchanged rn Bed/Room Type: Standard rn Location: Telemetry/MedSurg (observation)(12/14/21 09:57) eb Room Assignment: [facility](12/14/21 09:57) eb Diagnosis - Other sickle-cell disorders with crisis rn Forms: - Medication Reconciliation Form rn - SBAR form rn Signatures: Dispatcher [employer] Korin Voss, RN RN Ariel Katz MD MD rn Attema, Lee, TEACHER OF THE EMOTIONALLY DISTURBED-C TEACHER OF THE EMOTIONALLY DISTURBED-Cla1 Tata Zarate RN RN tw2 Virginia Lizarraga Tiffany 5 Taylor Patel RN RN sm5 Corrections: (The following items were deleted from the chart) 12/13 20: 21:02 Telemetry/MedSurg (observation) josey 21:02 rn tw5 12/14 09:57 12/13 21:28 [facility] ER HOLD [facility] eb 12/14 09:57 12/13 21:28 ERHOLD- [facility] eb
--- NOTE | 2021-12-13 21:02 | ER ---
Nurse's Notes [facility] Name: Gume Ortega Age: 31 yrs Sex: Female : 1990 Arrival Date: 12/13/2021 Time: 17:38 Bed 13 Private MD: Diagnosis: Other sickle-cell disorders with crisis Presentation: 12/13 17:35 Chief complaint: EMS states: pt is having a sickle cell crisis. pt states pain 02/19. tw2 vs stable. 98% RA, unsuccessful attempt at iv. Coronavirus screen: At this time, the client does not indicate any symptoms associated with coronavirus-19. Ebola Screen: Patient denies travel to an Ebola-affected area in the 21 days before illness onset. Initial Sepsis Screen: Does the patient meet any 2 criteria? No. Patient's initial sepsis screen is negative. Does the patient have a suspected source of infection? No. Patient's initial sepsis screen is negative. Risk Assessment: Do you want to hurt yourself or someone else? Patient reports no desire to harm self or others. Onset of symptoms was December 13, 2021. 17:35 Method Of Arrival: EMS: [facility] tw2 17:35 Acuity: MARILUZ 2 tw2 Triage Assessment: 17:44 General: Appears uncomfortable, Behavior is cooperative, anxious. Pain: Complains of tw2 pain in all over. Neuro: Level of Consciousness is awake, alert, obeys commands, Oriented to person, place, time, situation. Respiratory: Airway is patent Respiratory effort is even, unlabored, Respiratory pattern is regular, symmetrical. 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 - Family history:: not pertinent. - Hospitalizations: : The patient was recently seen at [facility]. Screenin:45 Abuse screen: Denies threats or abuse. Nutritional screening: No deficits noted. tw2 Tuberculosis screening: No symptoms or risk factors identified. Fall Risk None identified. Assessment: 17:38 Reassessment: pt given blanket and remains in w/c after moving from EMS stretcher in tw2 lobby at this time. 17:54 Reassessment: pt is laying on the floor states she is "more comfortable". charge nurse tw2 notified. 18:40 Reassessment: No changes from previously documented assessment. Patient and/or family ll1 updated on plan of care and expected duration. Pain level reassessed. Vital Signs: 17:35 BP 170 / 96; Pulse 64; Resp 17; Temp 98.1(TE); Pulse Ox 100% on R/A; Weight 77.56 kg tw2 (R); Height 5 ft. 2 in. (157.48 cm); Pain 10/10; 17:35 Body Mass Index 31.28 (77.56 kg, 157.48 cm) tw2 ED Course: 17:38 Patient arrived in ED. rg4 17:43 Triage completed. tw2 17:43 Arm band placed on. tw2 17:55 Warm blanket given. tw2 18:40 Patient placed in an exam room, on a stretcher. ll1 19:10 Ariel Moreno MD is Attending Physician. rn 20:53 Taylor Patel RN is Primary Nurse. [facility] 21:01 Jimenez Salinas MD is Hospitalizing Provider. rn Administered Medications: 20:10 Drug: Phenergan (promethazine) 12.5 mg Route: IVP; Site: Port-a-cath; 12/14 00:37 Follow up: Response: No adverse reaction [facility] 12/13 20:10 Drug: NS 0.9% 1000 ml Route: IV; Rate: 1000 ml; Site: Port-a-cath; bb 21:00 Follow up: IV Status: Completed infusion; IV Intake: 1000ml [facility] 20:12 Drug: Dilaudid (HYDROmorphone) 1 mg Route: IVP; Site: Port-a-cath; 12/14 00:37 Follow up: Response: No adverse reaction [facility] 12/13 21:19 Drug: Dilaudid (HYDROmorphone) 1 mg Route: IVP; Site: Port-a-cath; [facility] 12/14 01:19 Drug: Potassium Chloride 20 mEq Route: IV; Rate: calculated rate; Site: Port-a-cath; [facility] Medication: 12/13 18:41 VIS not applicable for this client. ll1 Intake: 21:00 IV: 1000ml; Total: 1000ml. [facility] Outcome: 21:02 Decision to Hospitalize by Provider. rn 12/14 11:14 Admitted to Tele room 212, Report called to [facility] 11:14 Condition: [facility] 11:14 Instructed on the need for admit. 11:42 Patient left the ED. eb Signatures: Korin Rosas, RN RN Ariel Katz MD MD rn Wise, Tara, RN RN 2 Heide Cardozo 4 Virginia Lizarraga Lynsay, RN RN 1 Mamta Sam RN RN [facility] Taylor Patel RN RN [facility] Corrections: (The following items were deleted from the chart) 12/13 17:58 17:54 Reassessment: pt is laying on the floor states she is more comfortable. tw2 tw2
[2021-12-13 21:07] LABS: Anisocytosis 2+; Blood Morphology Comment NOTED (NOT SEEN); Platelet Estimate ADEQ; Polychromasia 3+; Target Cells 1+
--- NOTE | 2021-12-13 22:24 | P.HP ---
Certification for Inpatient Patient admitted to: Inpatient With expected LOS: >2 Midnights Patient will require the following post-hospital care: None Practitioner: I am a practitioner with admitting privileges, knowledge of patient current condition, hospital course, and medical plan of care. Services: Services provided to patient in accordance with Admission requirements found in Title 42 Section 412.3 of the Code of Federal Regulations <Enoch Chavez - Last Filed: 12/13/21 22:20> Patient History Date of Service: 12/13/21 Reason for admission: Sickle cell crisis History of Present Illness: 31-year-old female with history of sickle cell anemia, previous pulmonary embolism on chronic anticoagulation therapy presents emergency department for acute generalized pain and suspected sickle cell crisis. She reports her pain began this morning with associated with a couple episodes of vomiting which she reports is not atypical for her during sickle cell crisis. She denies any fever, chills or other new/acute symptoms other than generalized pain. She was evaluated in the emergency department her labs were significant for leukocytosis with white blood cell count 12.7 hemoglobin 8.1 hematocrit 25.7 platelets 550 absolute retake count 0.48 potassium of 3.1. Patient still with significant pain after multiple rounds of IV narcotic pain medication in the emergency department ED provider wishes to admit for sickle cell crisis. - Past Medical/Surgical History Diabetic: No -: Sickle Cell Anemia -: Pulmonary Embolism -: blood clot left lung -: port-a-cath placement Psychosocial/ Personal History: Patient lives at home with her girlfriend - Family History Mother -: Other (see notes) Notes: sickle cell trait Father -: Other (see notes) Notes: sickle cell trait - Social History Alcohol use: No CD- Drugs: Yes Caffeine use: No Place of Residence: Home <Enoch Chavez - Last Filed: 12/13/21 22:20> Date of Service: 12/14/21 <Jimenez Salinas - Last Filed: 12/14/21 15:24> Allergies ondansetron HCl [From Zofran] Allergy (Mild, Verified 07/09/21 05:43) Nausea/Vomiting morphine Allergy (Verified 07/09/21 05:43) Nausea/Vomiting Sulfa (Sulfonamide Antibiotics) Allergy (Verified 07/09/21 05:43) Nausea/Vomiting Home Medications: Folic Acid [Folic Acid*] 1 mg PO DAILY 08/01/12 Cholecalciferol (Vitamin D3) [Vitamin D 1000 Iu Tab*] 1,000 unit PO EVERY 7TH DAY 09/30/20 Apixaban [Eliquis *] 2.5 mg PO BID #60 tablet 12/21/20 Hydromorphone HCl [Dilaudid] 8 mg PO TID PRN 30 Days #60 tablet 10/25/21 Polyethyl Gly 3350 [Glycolax*] 17 gm PO DAILYPRN PRN #30 udbot 10/26/21 Promethazine Tab [Phenergan*] 25 mg PO Q4H PRN #30 tab 10/26/21 Apixaban [Eliquis *] 2.5 mg PO BID 12/06/21 Ascorbic Acid [Vitamin C*] 500 mg PO DAILY 12/06/21 Voxelotor [Oxbryta] 500 mg PO DAILY 12/14/21 Review of Systems 10-point ROS is otherwise unremarkable General: Other (Generalized pain) <Enoch Chavez - Last Filed: 12/13/21 22:20> Physical Examination - Physical Exam General: Alert, In no apparent distress, Oriented x3 HEENT: Atraumatic, PERRLA, Mucous membr. moist/pink, EOMI, Sclerae nonicteric Neck: Supple, 2+ carotid pulse no bruit, No LAD, Without JVD or thyroid abnormality Respiratory: Clear to auscultation bilaterally, Normal air movement Cardiovascular: Regular rate/rhythm, Normal S1 S2 Gastrointestinal: Normal bowel sounds, No tenderness Musculoskeletal: No tenderness Integumentary: No rashes Neurological: Normal speech, Normal strength at 5/5 x4 extr, Normal tone, Normal affect - Studies Laboratory Data (last 24 hrs) 12/13/21 19:25: PT 12.4, INR 1.12, APTT 64.0 H 12/13/21 19:25: Sodium 140, Potassium 3.1 L, BUN 3 L, Creatinine 0.39 L, Glucose 103 12/13/21 19:25: WBC 21.7 H* D, Hgb 9.1 L, Hct 25.7 L D, Plt Count 550 H D <Enoch Chavez - Last Filed: 12/13/21 22:20> - Studies Laboratory Data (last 24 hrs) 12/13/21 19:25: PT 12.4, INR 1.12, APTT 64.0 H 12/13/21 19:25: Sodium 140, Potassium 3.1 L, BUN 3 L, Creatinine 0.39 L, Glucose 103 12/13/21 19:25: WBC 21.7 H* D, Hgb 9.1 L, Hct 25.7 L D, Plt Count 550 H D <Jimenez Salinas - Last Filed: 12/14/21 15:24> Assessment and Plan - Plan Assessment: Sickle cell crisis History of PE on chronic anticoagulation Hypokalemia Plan: Sickle cell crisis: As needed Dilaudid, supplemental oxygen, IV fluids. Daily labs with reticulocyte count. Patient denies any fever, chills or other new ROS findings aside from acute generalized pain similar to her previous sickle cell crisis. History of PE on chronic anticoagulation: Continue Eliquis 2.5 mg p.o. twice daily, patient has been compliant with this medication. Hypokalemia: Protocol in place. DVT PPX:Continue eliquis Code status:Full Discharge Plan: Home Plan to discharge in: 72 Hours - Advance Directives Does patient have a Living Will: No Does patient have a Durable POA for Healthcare: No - Code Status/Comfort Care Code Status Assessed: Yes (Full code) Critical Care: No Time Spent Managing Pts Care (In Minutes): 70 <Enoch Chavez - Last Filed: 12/13/21 22:20> Physician Review: Patient Assessed, Agree with Above Assessment and Plan <Jimenez Salinas - Last Filed: 12/14/21 15:24>
[2021-12-14] MEDS: Ringers Lactate 1,000 ML IV SCH ×3 (00:41→21:32)
[2021-12-14] MEDS ORDERED: ONDANSETRON 4 MG/2 ML VIAL IV PRN (00:41)
[2021-12-14] MEDS ORDERED: NA CHLORIDE 0.9% 250 ML ONE (01:00)
[2021-12-14] MEDS ORDERED: KCL 20 MEQ/100 mL IVPB 100 ML IV ONE (01:01)
[2021-12-14 01:20] LABS: SARS-CoV-2 Antigen Rapid Res Negative (Negative)
[2021-12-14] MEDS: HYDROMORPHONE HCL 1 MG/ML INJ IV PRN ×6 (02:11→21:23)
[2021-12-14] MEDS ORDERED: HYDROMORPHONE HCL 1 MG/ML INJ ONE ×2 (02:12→08:00)
[2021-12-14] MEDS: PROMETHAZINE INJ 25 MG/ML AMP IV PRN ×4 (03:45→21:24)
[2021-12-14] MEDS ORDERED: PROMETHAZINE INJ 25 MG/ML AMP ONE ×2 (03:50→07:59)
[2021-12-14] MEDS ORDERED: NA CHLORIDE 0.9% 50 ML ONE (03:50)
[2021-12-14] MEDS ORDERED: Ringers Lactate 1,000 ML IV ONE (06:15)
[2021-12-14 06:19] VITALS: BMI 31.2
[2021-12-14 06:23] LABS: Absolute Lymphocytes (CBC) 5.7 K/uL (0.7-4.9); Hematocrit 22.5 % (36.0-45.0); Lymphocytes % 25.9 % (15.3-44.8); MCV 98.4 fL (80-100); MPV 8.2 fL (7.6-11.3); RBC Red Blood Cell Count 2.28 M/uL (3.86-4.86)
[2021-12-14 06:32] LABS: Albumin 3.9 g/dL (3.4-5.0); Bilirubin Total 3.9 mg/dL (0.2-1.0); Potassium 3.3 mmol/L (3.5-5.1); Protein, Total 6.9 g/dL (6.4-8.2)
[2021-12-14] MEDS ORDERED: POTASSIUM CL SA 10 MEQ TAB PO ONE ×2 (08:24→08:42)
[2021-12-14] MEDS: APIXABAN 2.5 MG TABLET PO SCH ×2 (08:34→21:24)
[2021-12-14] MEDS ORDERED: APIXABAN 5 MG TABLET ONE (08:44)
--- NOTE | 2021-12-14 08:47 | RAD REPORT ---
EXAM DESCRIPTION: RAD - Chest Single View - 12/14/2021 6:46 am CLINICAL HISTORY: rule out acute chest syndrome Chest pain. COMPARISON: Chest Single View dated 12/04/2021; Chest Single View dated 10/19/2021; Chest Single View d ated 09/26/2021; Chest Single View dated 09/15/2021 FINDINGS: Portable technique limits examination quality. The lungs are grossly clear. The heart is normal in size. No displaced fractures.Left-sided port cath eter has its tip unchanged. IMPRESSION: No acute intrathoracic process suspected.
[2021-12-14 08:48] LABS: Anisocytosis 1+; Blood Morphology Comment NOTED (NOT SEEN); Hypochromasia 2+; Platelet Estimate INCR; Poikilocytosis 1+; Polychromasia 2+
[2021-12-14 08:49] LABS: Target Cells FEW
[2021-12-14] MEDS ORDERED: DIPHENHYDRAMINE 50 MG/ML VIAL ONE (08:49)
--- NOTE | 2021-12-14 15:29 | P.PN ---
Subjective Date of Service: 12/14/21 Chief Complaint: Sickle cell crisis Subjective: No new changes No acute events overnight. She reports generalized body aches, which she grades a 10/10 in severity. She states that she has had acute chest syndrome in the past, but this had happened years ago. She denies any current chest pain or shortness of breath. Review of Systems 10-point ROS is otherwise unremarkable Musculoskeletal: Other (generalized body pain) Physical Examination - Vital Signs Temperature: 97.8 F Blood Pressure: 118/70 Pulse: 52 Respirations: 16 Pulse Ox (%): 100 - Physical Exam General: Alert, In no apparent distress, Oriented x3 HEENT: Atraumatic, PERRLA, Mucous membr. moist/pink, EOMI, Sclerae nonicteric Neck: Supple, JVD not distended Respiratory: Clear to auscultation bilaterally, Normal air movement Cardiovascular: No edema, Regular rate/rhythm, No gallops, No rubs, No murmurs Gastrointestinal: Normal bowel sounds, Soft and benign, Non-distended, No tenderness, No rebound, No guarding Musculoskeletal: No clubbing Integumentary: No rashes Neurological: Normal affect - Studies Laboratory Data (last 24 hrs) 12/13/21 19:25: PT 12.4, INR 1.12, APTT 64.0 H 12/13/21 19:25: Sodium 140, Potassium 3.1 L, BUN 3 L, Creatinine 0.39 L, Glucose 103 12/13/21 19:25: WBC 21.7 H* D, Hgb 9.1 L, Hct 25.7 L D, Plt Count 550 H D Medications List Reviewed: Yes Assessment And Plan - Plan # Acute Sickle Cell Vaso-Occlusive Pain Crisis She reports generalized body pain, similar to her prior episodes of sickle cell pain crisis. She reports prior history of acute chest syndrome "several years ago." Will further evaluate with a chest x-ray - Evaluation thus far: - Hgb = 9.1(near baseline) - No thrombocytopenia, acute anemia, or splenic tenderness to suggest splenic/hepatic sequestration - Reticulocyte count = 0.48 - Chest x-ray = ordered - Peripheral blood smear = pending - Management plan: - IV hydration Lactated Ringers' @ 100 mL/hr - Pain control: - PRN acetaminophen, hydromorphone - Incentive spirometry - Continue home folic acid, oxbryta (voxelotor) - Wanted to trial hydroxyurea - but she reports that she is intolerant to this # History of Pulmonary Embolism - Continue home apixaban Jimenez Salinas M.D. Discharge Plan: Home Plan to discharge in: Greater than 2 days Physician Review: Patient Assessed, Agree with Above Assessment and Plan
[2021-12-15] MEDS: HYDROMORPHONE HCL 1 MG/ML INJ IV PRN ×8 (00:20→23:15)
[2021-12-15] MEDS: PROMETHAZINE INJ 25 MG/ML AMP IV PRN ×5 (01:25→23:13)
[2021-12-15 06:25] LABS: Absolute Lymphocytes (CBC) 5.5 K/uL (0.7-4.9); Hematocrit 22.4 % (36.0-45.0); Lymphocytes % 31.7 % (15.3-44.8); MPV 8.3 fL (7.6-11.3); RBC Red Blood Cell Count 2.26 M/uL (3.86-4.86)
[2021-12-15 06:42] LABS: Albumin 3.5 g/dL (3.4-5.0); Bilirubin Total 3.4 mg/dL (0.2-1.0); Potassium 3.4 mmol/L (3.5-5.1); Protein, Total 6.2 g/dL (6.4-8.2)
[2021-12-15] MEDS: Ringers Lactate 1,000 ML IV SCH ×2 (07:14→16:47)
[2021-12-15] MEDS: VOXELOTOR 500 MG PO SCH (09:00)
[2021-12-15] MEDS ORDERED: POTASSIUM CL SA 10 MEQ TAB PO ONE (09:00)
[2021-12-15] MEDS: APIXABAN 2.5 MG TABLET PO SCH ×2 (09:39→20:08)
--- NOTE | 2021-12-15 14:28 | P.PN ---
Subjective Date of Service: 12/15/21 Chief Complaint: Sickle cell crisis Subjective: No new changes No acute events overnight. She reports that her generalized body aches are only slightly improved compared to yesterday. She grades her pain a 9-10/10 in severity. Review of Systems 10-point ROS is otherwise unremarkable General: Other (generalized body pain) Physical Examination - Vital Signs Temperature: 97.7 F Blood Pressure: 118/65 Pulse: 51 Respirations: 18 Pulse Ox (%): 95 - Studies Medications List Reviewed: Yes Assessment And Plan - Plan - Physical Exam General: Alert, In no apparent distress, Oriented x3 HEENT: Atraumatic, PERRLA, Mucous membr. moist/pink, EOMI, Sclerae nonicteric Neck: Supple, JVD not distended Respiratory: Clear to auscultation bilaterally, Normal air movement Cardiovascular: No edema, Regular rate/rhythm, No gallops, No rubs, No murmurs Gastrointestinal: Normal bowel sounds, Soft and benign, Non-distended, No tenderness, No rebound, No guarding Musculoskeletal: No clubbing Integumentary: No rashes Neurological: Normal affect # Acute Sickle Cell Vaso-Occlusive Pain Crisis She reports generalized body pain, similar to her prior episodes of sickle cell pain crisis. She reports prior history of acute chest syndrome "several years ago." - Evaluation thus far: - Presenting Hgb = 9.1 (near baseline) - No thrombocytopenia, acute anemia, or splenic tenderness to suggest splenic/hepatic sequestration - Reticulocyte count = 0.48 - Chest x-ray = "no acute intrathoracic process suspected." - Peripheral blood smear = 2+ sickle cells - Management plan: - IV hydration Lactated Ringers' @ 100 mL/hr - Pain control: - PRN acetaminophen, hydromorphone - Incentive spirometry - Continue home folic acid, oxbryta (voxelotor) - Wanted to trial hydroxyurea - but she reports that she is intolerant to this # History of Pulmonary Embolism - Continue home apixaban Jimenez Salinas M.D. Discharge Plan: Home
[2021-12-15] MEDS: FOLIC ACID 1 MG TABLET PO SCH (16:47)
[2021-12-15 17:50] LABS: Specific Gravity 1.015 (1.005-1.030)
[2021-12-15] MEDS: DIPHENHYDRAMINE 50 MG/ML VIAL IV PRN (20:06)
[2021-12-16] MEDS: HYDROMORPHONE HCL 1 MG/ML INJ IV PRN ×8 (02:43→23:58)
[2021-12-16] MEDS: DIPHENHYDRAMINE 50 MG/ML VIAL IV PRN ×4 (02:44→23:55)
[2021-12-16] MEDS: Ringers Lactate 1,000 ML IV SCH ×3 (02:49→21:21)
[2021-12-16] MEDS: PROMETHAZINE INJ 25 MG/ML AMP IV PRN ×4 (05:19→23:50)
[2021-12-16 06:31] LABS: Hematocrit 21.5 % (36.0-45.0); MCV 98.3 fL (80-100); MPV 9.4 fL (7.6-11.3); RBC Red Blood Cell Count 2.19 M/uL (3.86-4.86)
[2021-12-16 06:36] LABS: Lymphocytes % 23.3 % (15.3-44.8)
[2021-12-16 06:37] LABS: Absolute Lymphocytes (CBC) 3.3 K/uL (0.7-4.9)
[2021-12-16 06:50] LABS: Albumin 3.4 g/dL (3.4-5.0); Potassium 3.8 mmol/L (3.5-5.1)
[2021-12-16 07:02] LABS: Bilirubin Total 6.9 mg/dL (0.2-1.0)
[2021-12-16 08:47] LABS: Bilirubin Direct 0.6 mg/dL (0-0.2)
[2021-12-16] MEDS: APIXABAN 2.5 MG TABLET PO SCH ×2 (08:50→21:16)
[2021-12-16] MEDS: FOLIC ACID 1 MG TABLET PO SCH (08:50)
[2021-12-16 08:55] LABS: Bilirubin Total 6.9 mg/dL (0.2-1.0)
[2021-12-16] MEDS: VOXELOTOR 500 MG PO SCH (08:55)
[2021-12-16] MEDS ORDERED: POTASSIUM CL SA 10 MEQ TAB PO ONE (09:00)
--- NOTE | 2021-12-16 12:34 | P.PN ---
Subjective Date of Service: 12/16/21 Chief Complaint: Sickle cell crisis Subjective: Improving No acute events overnight. She reports that her generalized body aches have been persistent. She grades her pain a 6-7/10 in severity. She reports that hydromorphone is helping her symptoms. Review of Systems 10-point ROS is otherwise unremarkable Musculoskeletal: Other (generalized body aches) Physical Examination - Vital Signs Temperature: 97.2 F Blood Pressure: 97/52 Pulse: 58 Respirations: 14 Pulse Ox (%): 93 - Studies Medications List Reviewed: Yes Assessment And Plan - Plan - Physical Exam General: Alert, In no apparent distress, Oriented x3 HEENT: Atraumatic, PERRLA, Mucous membr. moist/pink, EOMI, Sclerae nonicteric Neck: Supple, JVD not distended Respiratory: Clear to auscultation bilaterally, Normal air movement Cardiovascular: No edema, Regular rate/rhythm, No gallops, No rubs, No murmurs Gastrointestinal: Normal bowel sounds, Soft and benign, Non-distended, No tenderness, No rebound, No guarding Musculoskeletal: No clubbing Integumentary: No rashes Neurological: Normal affect # Acute Sickle Cell Vaso-Occlusive Pain Crisis She reports generalized body pain, similar to her prior episodes of sickle cell pain crisis. She reports prior history of acute chest syndrome "several years ago." - Evaluation thus far: - Presenting Hgb = 9.1 (near baseline) - No thrombocytopenia, acute anemia, or splenic tenderness to suggest splenic/hepatic sequestration - Reticulocyte count = 0.48 - Chest x-ray = "no acute intrathoracic process suspected." - Peripheral blood smear = 2+ sickle cells - Management plan: - IV hydration Lactated Ringers' @ 100 mL/hr - Pain control: - PRN acetaminophen, hydromorphone - Monitor respiratory status - Incentive spirometry - Continue home folic acid, oxbryta (voxelotor) - Wanted to trial hydroxyurea - but she reports that she is intolerant to this # History of Pulmonary Embolism - Continue home apixaban - Continue current plan of care Jimenez Salinas M.D. Discharge Plan: Home Plan to discharge in: Greater than 2 days
[2021-12-17] MEDS: HYDROMORPHONE HCL 1 MG/ML INJ IV PRN ×7 (02:47→21:33)
[2021-12-17] MEDS: PROMETHAZINE INJ 25 MG/ML AMP IV PRN ×4 (05:36→18:42)
[2021-12-17 05:40] LABS: Hematocrit 21.2 % (36.0-45.0); Lymphocytes % 31.5 % (15.3-44.8); MCV 96.5 fL (80-100); MPV 8.3 fL (7.6-11.3); RBC Red Blood Cell Count 2.19 M/uL (3.86-4.86)
[2021-12-17] MEDS: DIPHENHYDRAMINE 50 MG/ML VIAL IV PRN ×3 (05:40→18:41)
[2021-12-17] MEDS: Ringers Lactate 1,000 ML IV SCH ×2 (05:44→15:51)
[2021-12-17 06:04] LABS: Albumin 3.4 g/dL (3.4-5.0); Bilirubin Direct 0.5 mg/dL (0-0.2); Potassium 3.7 mmol/L (3.5-5.1); Protein, Total 5.9 g/dL (6.4-8.2)
[2021-12-17 06:05] LABS: Bilirubin Total 7.6 mg/dL (0.2-1.0)
[2021-12-17] MEDS: FOLIC ACID 1 MG TABLET PO SCH (08:22)
[2021-12-17] MEDS: APIXABAN 2.5 MG TABLET PO SCH (08:22)
[2021-12-17 08:34] LABS: Platelet Estimate INCR
[2021-12-17 08:35] LABS: Anisocytosis 1+; Blood Morphology Comment NOTED (NOT SEEN); Hypochromasia 1+; Macrocytosis 1+; Platelets, Giant 2+
[2021-12-17] MEDS: VOXELOTOR 500 MG PO SCH (09:00)
[2021-12-17] MEDS ORDERED: POTASSIUM CL SA 10 MEQ TAB PO ONE (09:00)
--- NOTE | 2021-12-17 11:12 | RAD REPORT ---
EXAM DESCRIPTION: US - Liver Only - 12/17/2021 6:49 am CLINICAL HISTORY: Abdominal pain. Hyperbilirubinemia COMPARISON: October 2021 ultrasound FINDINGS: The liver has a normal echotexture. It is enlarged. Hepatopetal flow Multiple gallstones. Gallbladder wall is mildly thickened. Borderline common bile duct dilatation IMPRESSION: Hepatomegaly Cholelithiasis Mild gallbladder wall thickening may indicate cholecystitis Borderline dilatation common bile duct
--- NOTE | 2021-12-17 11:41 | P.PN ---
Subjective Date of Service: 12/17/21 Chief Complaint: Sickle cell crisis No acute events overnight. She reports that her generalized body aches continues to worsen. This morning, she grades her pain a 8-9/10 in severity. She reports that hydromorphone is helping her symptoms. Her bilirubin is up-trending. Review of Systems 10-point ROS is otherwise unremarkable General: Unremarkable (generalized pain) Physical Examination - Vital Signs Temperature: 98.8 F Blood Pressure: 102/45 Pulse: 67 Respirations: 14 Pulse Ox (%): 99 - Studies Medications List Reviewed: Yes Assessment And Plan - Plan - Physical Exam General: Alert, In no apparent distress, Oriented x3 HEENT: Atraumatic, PERRLA, Mucous membr. moist/pink, EOMI, Sclerae nonicteric Neck: Supple, JVD not distended Respiratory: Clear to auscultation bilaterally, Normal air movement Cardiovascular: No edema, Regular rate/rhythm, No gallops, No rubs, No murmurs Gastrointestinal: Normal bowel sounds, Soft and benign, Non-distended, Tenderness in right upper quadrant, No rebound, No guarding Musculoskeletal: No clubbing Integumentary: No rashes Neurological: Normal affect # Acute Sickle Cell Vaso-Occlusive Pain Crisis She reports generalized body pain, similar to her prior episodes of sickle cell pain crisis. She reports prior history of acute chest syndrome "several years ago." - Evaluation thus far: - Presenting Hgb = 9.1 (near baseline) - No thrombocytopenia, acute anemia, or splenic tenderness to suggest splenic/hepatic sequestration - Reticulocyte count = 0.48 - Chest x-ray = "no acute intrathoracic process suspected." - Peripheral blood smear = 2+ sickle cells - Management plan: - IV hydration Lactated Ringers' @ 100 mL/hr - Pain control: - PRN acetaminophen, hydromorphone - Monitor respiratory status - Incentive spirometry - Continue home folic acid, oxbryta (voxelotor) - Wanted to trial hydroxyurea - but she reports that she is intolerant to this # Concern for Acute Cholecystitis # Indirect Hyperbilirubinemia # Cholelithiasis - General Surgery consulted and spoke with Dr. Moore - recommendations appreciated - Started Piperacillin-Tazobactam 3.375 g IV q8hr - Lactated Ringers' at 100 mL/hr - Pain control as mentioned above - RUQ evaluated = "hepatomegaly. Cholelithiasis. Mild gallbladder wall thickening may indicate cholecystitis. Borderline dilatation common bile duct " - NPO - Pre-operative labs ordered: - PT/INR - Type & screen # History of Pulmonary Embolism - Switch apixaban to enoxaparin in anticipation for surgery Jimenez Salinas M.D. Discharge Plan: Home Plan to discharge in: Greater than 2 days
[2021-12-17 13:41] LABS: Protime INR 1.4
[2021-12-17] MEDS: PIPER TAZO 3.375 GM in NA CHLORIDE 0.9% 100 ML IV SCH (15:52)
--- NOTE | 2021-12-17 20:37 | P.CNS ---
Date of Consult: 12/17/21 PC: I was asked to see this patient in regards to an ultrasound that demonstrates numerous gallstones, as the patient is in a sickle cell crisis, and she has been having some abdominal pain. HPC: Patient has been in the hospital for a while. She actually states at the moment she has no abdominal pain but did have some nausea early which is unusual for her. At the current time she says she is fairly miserable. PSHx: Has had a Port-A-Cath placement PMHx: Sickle cell Social Hx: Allergic to morphine, sulfa, Sys R: States that she is actually doing quite well at home. O/E: Awake alert stable at the moment HEENT: Not jaundiced Chest: Chest movement equal bilaterally Abd: Abdomen is soft, no guarding or rebound in the right upper quadrant Filion: Intact Data: Has cholelithiasis with some fluid seen around the gallbladder indicating possible cholecystitis on ultrasound. Impression: Sickle cell crisis Plan: Patient is currently on antibiotics. She is having a sickle cell crisis at the moment. She is on numerous blood thinners. She has minimal abdominal tenderness at the moment. My recommendation would be to get her through crisis, evaluate her gallbladder at that time. Obviously gallstones are not uncommon in sickle cell anemia. She may want to have her gallbladder removed if we not do not do in this acute setting as an outpatient in a few weeks time. I will continue to follow with you thank you
[2021-12-17] MEDS: ENOXAPARIN 80 MG/0.8 ML SQ SCH (21:47)
[2021-12-18] MEDS: HYDROMORPHONE HCL 1 MG/ML INJ IV PRN ×5 (00:12→11:56)
[2021-12-18] MEDS: DIPHENHYDRAMINE 50 MG/ML VIAL IV PRN ×4 (00:13→18:34)
[2021-12-18] MEDS: PROMETHAZINE INJ 25 MG/ML AMP IV PRN ×5 (00:13→22:14)
[2021-12-18] MEDS: PIPER TAZO 3.375 GM in NA CHLORIDE 0.9% 100 ML IV SCH ×3 (00:14→17:24)
[2021-12-18] MEDS: Ringers Lactate 1,000 ML IV SCH ×3 (03:26→22:19)
[2021-12-18 04:07] LABS: Absolute Lymphocytes (CBC) 4.1 K/uL (0.7-4.9); Lymphocytes % 24.2 % (15.3-44.8); MCV 97.1 fL (80-100); MPV 9.4 fL (7.6-11.3)
[2021-12-18 04:14] LABS: Bicarbonate 30 mmol/L (21-32); Glomerular Filtration Rate 127 ml/min (=/>90); Glucose Level 91 mg/dL (74-106); Potassium 3.5 mmol/L (3.5-5.1); Sodium Level 140 mmol/L (136-145)
[2021-12-18 04:15] LABS: BUN Blood Urea Nitrogen < 3 mg/dL (7-18)
[2021-12-18] MEDS ORDERED: POTASSIUM CL SA 10 MEQ TAB PO ONE (04:17)
[2021-12-18 04:26] LABS: Hematocrit 20.4 % (36.0-45.0)
[2021-12-18] MEDS: VOXELOTOR 500 MG PO SCH (09:00)
[2021-12-18] MEDS: FOLIC ACID 1 MG TABLET PO SCH (09:03)
[2021-12-18] MEDS: ENOXAPARIN 80 MG/0.8 ML SQ SCH ×2 (09:03→22:13)
[2021-12-18] MEDS: METHYLPREDNISOLONE 125 MG INJ IV SCH ×2 (11:57→17:25)
--- NOTE | 2021-12-18 14:34 | P.PN ---
Subjective Date of Service: 12/18/21 Subjective: No new changes, Other (Still with severe pain.) Review of Systems 10-point ROS is otherwise unremarkable Physical Examination - Vital Signs Temperature: 97.9 F Blood Pressure: 107/57 Pulse: 72 Respirations: 16 Pulse Ox (%): 95 - Physical Exam General: Alert, In no apparent distress HEENT: Atraumatic, PERRLA, EOMI Neck: Supple, JVD not distended Respiratory: Clear to auscultation bilaterally, Normal air movement Cardiovascular: Regular rate/rhythm, Normal S1 S2 Gastrointestinal: Normal bowel sounds, No tenderness Musculoskeletal: No tenderness Integumentary: No rashes Neurological: Normal speech, Normal tone, Normal affect Lymphatics: No axilla or inguinal lymphadenopathy - Studies Medications List Reviewed: Yes Assessment & Plan - Problems (Diagnosis) (1) Sickle cell pain crisis Current Visit: Yes Status: Acute (2) Hemolytic anemia Current Visit: No Status: Acute Qualifiers: Hemolytic anemia type: hereditary hemolytic anemia, other Qualified Code(s): D58.8 - Other specified hereditary hemolytic anemias - Plan Plan: 1. Continue with IV steroids 2. Pain control 3. Gentle hydration 4. Surgery recommending CT imaging 5. Gi DVT prophylaxis Discharge Plan: Home Plan to discharge in: Greater than 2 days - Advance Directives Does patient have a Living Will: No Does patient have a Durable POA for Healthcare: No Physician Review: Patient Assessed, Agree with Above Assessment and Plan Critical Care: No Time Spent Managing PTS Care (In Minutes): 35
[2021-12-18] MEDS: HYDROMORPHONE HCL 2 MG/ML inj IV PRN ×3 (14:59→22:14)
--- NOTE | 2021-12-18 17:48 | P.PN ---
Date of Service: 12/18/21 S: Patient has no specific complaints about her abdomen. States that her pain mainly is in her bones. Even that appears to be a lightened up a little bit today. O: Abdomen is soft, nontender A: Surgically stable P: Patient is abdomen remains benign, does not require any surgical intervention right now. We will follow with you.
[2021-12-19] MEDS: METHYLPREDNISOLONE 125 MG INJ IV SCH ×4 (00:31→17:23)
[2021-12-19] MEDS: PIPER TAZO 3.375 GM in NA CHLORIDE 0.9% 100 ML IV SCH ×3 (00:32→17:22)
[2021-12-19] MEDS: PROMETHAZINE INJ 25 MG/ML AMP IV PRN ×6 (02:00→21:02)
[2021-12-19] MEDS: DIPHENHYDRAMINE 50 MG/ML VIAL IV PRN ×4 (02:02→21:02)
[2021-12-19] MEDS: HYDROMORPHONE HCL 2 MG/ML inj IV PRN ×6 (02:03→20:57)
[2021-12-19 04:38] LABS: Absolute Lymphocytes (CBC) 0.8 K/uL (0.7-4.9); Hematocrit 22.9 % (36.0-45.0); Lymphocytes % 5.1 % (15.3-44.8); MCV 100.6 fL (80-100); RBC Red Blood Cell Count 2.28 M/uL (3.86-4.86)
[2021-12-19 05:13] LABS: Albumin 3.9 g/dL (3.4-5.0); Bilirubin Total 3.7 mg/dL (0.2-1.0); Magnesium 1.5 mg/dL (1.8-2.4); Potassium 3.7 mmol/L (3.5-5.1)
[2021-12-19] MEDS: ENOXAPARIN 80 MG/0.8 ML SQ SCH ×2 (08:22→21:04)
[2021-12-19] MEDS: Ringers Lactate 1,000 ML IV SCH ×2 (08:23→17:22)
[2021-12-19] MEDS: FOLIC ACID 1 MG TABLET PO SCH (08:23)
[2021-12-19] MEDS: VOXELOTOR 500 MG PO SCH (08:24)
--- NOTE | 2021-12-19 08:39 | RAD REPORT ---
EXAM DESCRIPTION: CTAbdomen Pelvis W Contrast - 12/19/2021 8:14 am CLINICAL HISTORY: Questionable acute cholecystitis/sickle cell dz COMPARISON: Liver Only dated 12/17/2021; Chest Single View dated 12/14/2021; Cholangiogram dated 09/26/19 22; Chest Abdomen Pelvis W Cont dated 07/15/2021 TECHNIQUE: CT of the abdomen and pelvis was performed. All CT scans are performed using dose optimization technique as appropriate and may include automated exposure control or mA/KV adjustment according to patient size. FINDINGS: Lower chest: Port-A-Cath tip at the right atrium. Liver: Too small to characterize liver lesions which are likely benign. Biliary: Cholelithiasis. The gallbladder is contracted and the wall is thickened. Stomach: No significant focal abnormality. Duodenum: No significant focal abnormality. Pancreas: No significant abnormality. Spleen: Shrunken spleen. Adrenal: No suspicious lesions. Kidney/ureter: No hydronephrosis. No renal calculi. New small wedge-shaped defects in left kidney. Retroperitoneum: No retroperitoneal adenopathy. Vascular: No aneurysm. Bowel: No significant focal abnormality. Peritoneum: Free fluid in the pelvis which is presumably physiologic. Fat containing inguinal hernias . Bladder: Grossly unremarkable. Reproductive: No adnexal masses. Bones: No acute fracture. Other: n/a IMPRESSION: 1. Cholelithiasis with contracted gallbladder with wall thickening. While acute cholecys titis is within the differential, typically the gallbladder is dilated rather than contracted. No kathy iary ductal dilatation. If there is persistent clinical concern, could consider HIDA scan to confirm cystic duct patency. 2. New small wedge-shaped defects in the left kidney could represent pyelonephritis or small acute or subacute splenic infarcts.
[2021-12-19] MEDS ORDERED: POTASSIUM CL SA 10 MEQ TAB PO ONE (09:00)
[2021-12-19] MEDS ORDERED: HYDROMORPHONE HCL 1 MG/ML INJ IV ONE (12:05)
--- NOTE | 2021-12-19 20:31 | P.PN ---
Date of Service: 12/19/21 Subjective Subjective: No new changes, Other (Still with severe pain.) Review of Systems 10-point ROS is otherwise unremarkable Physical Examination - Vital Signs reviewed - Physical Exam General: Alert, In no apparent distress Respiratory: Clear to auscultation bilaterally, Normal air movement Cardiovascular: Regular rate/rhythm, Normal S1 S2 Gastrointestinal: Normal bowel sounds, No tenderness Neurological: Normal speech, Normal tone, Normal affect Assessment & Plan - Problems (Diagnosis) (1) Sickle cell pain crisis Current Visit: Yes Status: Acute (2) Hemolytic anemia Current Visit: No Status: Acute Qualifiers: Hemolytic anemia type: hereditary hemolytic anemia, other Qualified Code(s): D58.8 - Other specified hereditary hemolytic anemias PLAN: 1. Pain control 2. CT pending 3. Appreciate Surgery consult - Advance Directives Does patient have a Living Will: No Does patient have a Durable POA for Healthcare: No Physician Review: Patient Assessed, Agree with Above Assessment and Plan
[2021-12-20] MEDS: HYDROMORPHONE HCL 2 MG/ML inj IV PRN ×7 (00:30→23:32)
[2021-12-20] MEDS: METHYLPREDNISOLONE 125 MG INJ IV SCH ×2 (00:31→05:29)
[2021-12-20] MEDS: PROMETHAZINE INJ 25 MG/ML AMP IV PRN ×7 (00:32→23:33)
[2021-12-20] MEDS: PIPER TAZO 3.375 GM in NA CHLORIDE 0.9% 100 ML IV SCH ×3 (00:32→16:06)
[2021-12-20] MEDS ORDERED: FENTANYL CITR 100 MCG/2 ML IV ONE (02:19)
[2021-12-20] MEDS ORDERED: HYDROMORPHONE HCL 1 MG/ML INJ IV ONE ×2 (02:32→11:55)
[2021-12-20] MEDS: Ringers Lactate 1,000 ML IV SCH ×4 (03:21→22:49)
[2021-12-20] MEDS: DIPHENHYDRAMINE 50 MG/ML VIAL IV PRN ×3 (04:18→23:32)
[2021-12-20 04:56] LABS: Potassium 3.9 mmol/L (3.5-5.1)
[2021-12-20] MEDS: ENOXAPARIN 80 MG/0.8 ML SQ SCH ×2 (08:03→19:51)
[2021-12-20] MEDS: FOLIC ACID 1 MG TABLET PO SCH (08:04)
[2021-12-20] MEDS: VOXELOTOR 500 MG PO SCH (08:25)
[2021-12-20] MEDS ORDERED: POTASSIUM CL SA 10 MEQ TAB PO ONE (09:00)
[2021-12-20] MEDS: predniSONE 20 MG TAB PO SCH ×2 (11:04→19:51)
[2021-12-20 11:26] LABS: Absolute Lymphocytes (CBC) 1.2 K/uL (0.7-4.9); Hematocrit 22.4 % (36.0-45.0); Lymphocytes % 3.4 % (15.3-44.8); MCV 101.1 fL (80-100); MPV 8.9 fL (7.6-11.3); RBC Red Blood Cell Count 2.21 M/uL (3.86-4.86)
[2021-12-20 11:43] LABS: Albumin 4.2 g/dL (3.4-5.0); Bilirubin Total 4.1 mg/dL (0.2-1.0); Potassium 4.3 mmol/L (3.5-5.1); Protein, Total 7.5 g/dL (6.4-8.2)
[2021-12-20] MEDS ORDERED: Ringers Lactate 1,000 ML IV ONE (11:49)
[2021-12-20 14:13] LABS: Platelet Estimate INCR; Toxic Granulation 1+
[2021-12-20 14:14] LABS: Anisocytosis 1+; Blood Morphology Comment NOTED (NOT SEEN)
[2021-12-20] MEDS: HYDROMORPHONE ORAL 4 MG TAB PO PRN (18:20)
[2021-12-21] MEDS: PIPER TAZO 3.375 GM in NA CHLORIDE 0.9% 100 ML IV SCH ×3 (01:00→17:44)
[2021-12-21] MEDS ORDERED: NA CHLORIDE 0.9% 250 ML ONE (01:19)
[2021-12-21] MEDS: HYDROMORPHONE ORAL 4 MG TAB PO PRN (01:50)
[2021-12-21] MEDS: HYDROMORPHONE HCL 2 MG/ML inj IV PRN ×7 (03:03→22:54)
[2021-12-21] MEDS: PROMETHAZINE INJ 25 MG/ML AMP IV PRN ×6 (03:03→22:51)
[2021-12-21] MEDS: DIPHENHYDRAMINE 50 MG/ML VIAL IV PRN ×3 (06:39→20:19)
[2021-12-21 07:08] LABS: Absolute Lymphocytes (CBC) 1.5 K/uL (0.7-4.9); Hematocrit 24.7 % (36.0-45.0); Lymphocytes % 3.9 % (15.3-44.8); MCV 94.9 fL (80-100); MPV 8.8 fL (7.6-11.3); Potassium 3.5 mmol/L (3.5-5.1)
[2021-12-21 08:17] LABS: Blood Morphology Comment NOTED (NOT SEEN); Platelet Estimate ADEQ
[2021-12-21 08:18] LABS: Anisocytosis 1+; Hypochromasia 1+; Poikilocytosis 2+; Polychromasia 1+; Target Cells 1+
[2021-12-21] MEDS: VOXELOTOR 500 MG PO SCH (09:00)
[2021-12-21] MEDS ORDERED: POTASSIUM 25 MEQ EFFERV TAB PO ONE (09:00)
[2021-12-21] MEDS: Ringers Lactate 1,000 ML IV SCH ×3 (09:35→15:50)
[2021-12-21] MEDS: ENOXAPARIN 80 MG/0.8 ML SQ SCH ×2 (09:37→20:18)
[2021-12-21] MEDS: predniSONE 20 MG TAB PO SCH ×2 (09:38→20:18)
[2021-12-21] MEDS: FOLIC ACID 1 MG TABLET PO SCH (09:38)
[2021-12-22] MEDS: PIPER TAZO 3.375 GM in NA CHLORIDE 0.9% 100 ML IV SCH ×3 (01:53→16:51)
[2021-12-22] MEDS: Ringers Lactate 1,000 ML IV SCH ×4 (01:54→18:29)
[2021-12-22] MEDS: DIPHENHYDRAMINE 50 MG/ML VIAL IV PRN ×4 (01:59→22:47)
[2021-12-22] MEDS: HYDROMORPHONE HCL 2 MG/ML inj IV PRN ×7 (02:00→22:47)
[2021-12-22] MEDS: PROMETHAZINE INJ 25 MG/ML AMP IV PRN ×5 (04:48→22:47)
[2021-12-22 06:41] LABS: Absolute Lymphocytes (CBC) 0.3 K/uL (0.7-4.9); Hematocrit 27.3 % (36.0-45.0); Lymphocytes % 0.9 % (15.3-44.8); MCV 96.6 fL (80-100); MPV 9.3 fL (7.6-11.3); RBC Red Blood Cell Count 2.83 M/uL (3.86-4.86)
[2021-12-22 06:44] LABS: Albumin 3.8 g/dL (3.4-5.0); Potassium 3.7 mmol/L (3.5-5.1); Protein, Total 7.3 g/dL (6.4-8.2)
[2021-12-22] MEDS: ENOXAPARIN 80 MG/0.8 ML SQ SCH (08:35)
[2021-12-22] MEDS: predniSONE 20 MG TAB PO SCH (08:36)
[2021-12-22] MEDS: FOLIC ACID 1 MG TABLET PO SCH (08:36)
[2021-12-22] MEDS: VOXELOTOR 500 MG PO SCH (08:40)
[2021-12-22] MEDS ORDERED: POTASSIUM CL SA 10 MEQ TAB PO ONE (09:00)
[2021-12-22 10:46] LABS: Anisocytosis 1+; Blood Morphology Comment NOTED (NOT SEEN); Hypochromasia 2+; Platelet Estimate INCR; Poikilocytosis 2+; Polychromasia 2+; Smudge Cells PRESENT; Target Cells 1+
--- NOTE | 2021-12-22 17:09 | P.PN ---
Date of Service: 12/20/21 Subjective Subjective: No new changes, Other (Still with severe pain.) Review of Systems 10-point ROS is otherwise unremarkable Physical Examination - Vital Signs reviewed - Physical Exam General: Alert, In no apparent distress Respiratory: Clear to auscultation bilaterally, Normal air movement Cardiovascular: Regular rate/rhythm, Normal S1 S2 Gastrointestinal: Normal bowel sounds, No tenderness Neurological: Normal speech, Normal tone, Normal affect Assessment & Plan - Problems (Diagnosis) (1) Sickle cell pain crisis Current Visit: Yes Status: Acute (2) Hemolytic anemia with leukocytosis Current Visit: No Status: Acute Qualifiers: Hemolytic anemia type: hereditary hemolytic anemia, other Qualified Code(s): D58.8 - Other specified hereditary hemolytic anemias - Advance Directives Does patient have a Living Will: No Does patient have a Durable POA for Healthcare: No Physician Review: Patient Assessed, Agree with Above Assessment and Plan PLAN: 1. IV abx added 2. Oral steroids 3. Pain control 4. GI/DVT prophylaxis
--- NOTE | 2021-12-22 17:09 | P.PN ---
Date of Service: 12/21/21 Subjective Subjective: Doing well with no new complaints Review of Systems 10-point ROS is otherwise unremarkable Physical Examination - Vital Signs reviewed - Physical Exam General: Alert, In no apparent distress Respiratory: Clear to auscultation bilaterally, Normal air movement Cardiovascular: Regular rate/rhythm, Normal S1 S2 Gastrointestinal: Normal bowel sounds, No tenderness Neurological: Normal speech, Normal tone, Normal affect Assessment & Plan - Problems (Diagnosis) (1) Sickle cell pain crisis Current Visit: Yes Status: Acute (2) Hemolytic anemia with leukocytosis Current Visit: No Status: Acute Qualifiers: Hemolytic anemia type: hereditary hemolytic anemia, other Qualified Code(s): D58.8 - Other specified hereditary hemolytic anemias - Advance Directives Does patient have a Living Will: No Does patient have a Durable POA for Healthcare: No Physician Review: Patient Assessed, Agree with Above Assessment and Plan PLAN: 1. IV abx added 2. Oral steroids 3. Pain control 4. GI/DVT prophylaxis
[2021-12-22] MEDS ORDERED: NA CHLORIDE 0.9% 500 ML IV ONE (18:20)
[2021-12-23] MEDS: HYDROMORPHONE HCL 2 MG/ML inj IV PRN ×8 (01:51→22:50)
[2021-12-23] MEDS: PIPER TAZO 3.375 GM in NA CHLORIDE 0.9% 100 ML IV SCH ×3 (01:51→16:54)
[2021-12-23] MEDS: Ringers Lactate 1,000 ML IV SCH ×3 (01:52→21:39)
[2021-12-23] MEDS: PROMETHAZINE INJ 25 MG/ML AMP IV PRN ×4 (04:27→22:50)
[2021-12-23] MEDS: DIPHENHYDRAMINE 50 MG/ML VIAL IV PRN ×4 (04:27→22:51)
[2021-12-23] MEDS: predniSONE 20 MG TAB PO SCH (08:15)
[2021-12-23] MEDS: FOLIC ACID 1 MG TABLET PO SCH (08:15)
[2021-12-23] MEDS: VOXELOTOR 500 MG PO SCH (08:25)
[2021-12-23 13:18] LABS: Absolute Lymphocytes (CBC) 0.3 K/uL (0.7-4.9); Hematocrit 25.3 % (36.0-45.0); Lymphocytes % 1.1 % (15.3-44.8); MCV 99.4 fL (80-100); MPV 9.5 fL (7.6-11.3); RBC Red Blood Cell Count 2.55 M/uL (3.86-4.86)
[2021-12-23 13:27] LABS: Potassium 3.5 mmol/L (3.5-5.1)
--- NOTE | 2021-12-23 16:57 | RAD REPORT ---
EXAM DESCRIPTION: Lucretia Single View12/23/2021 4:46 pm CLINICAL HISTORY: Shortness of breath COMPARISON: December 14, 2021 FINDINGS: The lung bases are hazy. Upper lobes appear clear. The heart is borderline enlarged. The tip of a central venous catheter within proximal right atrium IMPRESSION: Lung bases are hazy. This could be secondary to overlying soft tissue or infiltrates. P A and lateral chest series recommended
[2021-12-24] MEDS: PIPER TAZO 3.375 GM in NA CHLORIDE 0.9% 100 ML IV SCH ×3 (00:44→16:42)
[2021-12-24] MEDS: HYDROMORPHONE HCL 2 MG/ML inj IV PRN ×8 (01:45→23:04)
[2021-12-24] MEDS: DIPHENHYDRAMINE 50 MG/ML VIAL IV PRN ×4 (04:50→23:04)
[2021-12-24] MEDS: PROMETHAZINE INJ 25 MG/ML AMP IV PRN ×4 (04:50→23:04)
[2021-12-24] MEDS ORDERED: NA CHLORIDE 0.9% 100 ML ONE (08:12)
[2021-12-24] MEDS: predniSONE 20 MG TAB PO SCH (08:23)
[2021-12-24] MEDS: FOLIC ACID 1 MG TABLET PO SCH (08:23)
[2021-12-24] MEDS: VOXELOTOR 500 MG PO SCH (09:00)
[2021-12-24] MEDS: Ringers Lactate 1,000 ML IV SCH ×2 (10:28→20:00)
[2021-12-24 12:56] LABS: Absolute Lymphocytes (CBC) 0.2 K/uL (0.7-4.9); Hematocrit 24.8 % (36.0-45.0); Lymphocytes % 0.6 % (15.3-44.8); MCV 98.7 fL (80-100); MPV 9.3 fL (7.6-11.3); RBC Red Blood Cell Count 2.52 M/uL (3.86-4.86)
[2021-12-24 13:09] LABS: Potassium 3.6 mmol/L (3.5-5.1)
[2021-12-24] MEDS ORDERED: POTASSIUM CL SA 10 MEQ TAB PO ONE (14:00)
--- NOTE | 2021-12-24 16:25 | RAD REPORT ---
EXAM DESCRIPTION: US - Renal Ultrasound-Complete - 12/24/2021 4:16 pm CLINICAL HISTORY: pyelonephritis/infarct Flank pain COMPARISON: Abdomen Exam Complete dated 09/24/2021; Abdomen Pelvis W Contrast dated 12/19/2021 FINDINGS: Both kidneys are normal in size, shape and echotexture. The right kidney measures 11.9 x 4.9 x 4.4 cm. No hydronephrosis, focal mass or perinephric fluid. The left kidney measures 10.3 x 6.3 x 5.5 cm. No hydronephrosis, focal mass or perinephric fluid. The urinary bladder is incompletely distended without gross abnormality seen. IMPRESSION: Unremarkable renal sonogram.
--- NOTE | 2021-12-24 23:50 | P.PN ---
Date of Service: 12/22/21 Subjective Subjective: Pain is improving. ; she said her pain got worse after she had CT with contrast. Overall, she is feeling much better and she appears to be going backwards her baseline. However with her leukocytosis be in the 30,000 range I do not feel comfortable discharging her. She also had questionable renal infarct however renal function is stable. Renal ultrasound pending. Review of Systems 10-point ROS is otherwise unremarkable Physical Examination - Vital Signs reviewed - Physical Exam General: Alert, In no apparent distress Respiratory: Clear to auscultation bilaterally, Normal air movement Cardiovascular: Regular rate/rhythm, Normal S1 S2 Gastrointestinal: Normal bowel sounds, No tenderness Neurological: Normal speech, Normal tone, Normal affect Assessment & Plan - Problems (Diagnosis) (1) Sickle cell pain crisis Current Visit: Yes Status: Acute (2) Hemolytic anemia with leukocytosis Current Visit: No Status: Acute Qualifiers: Hemolytic anemia type: hereditary hemolytic anemia, other Qualified Code(s): D58.8 - Other specified hereditary hemolytic anemias PLAN: 1. IV abx added for leukocytosis; as white count improves and we should be able to DC this. 2. Oral steroids ; tapering dose 3. Pain control; continue with pain control 4. renal ultrasound pending 5. unlikely to be renal infarct as renal function has remained stable 6. surgery will follow up as an outpatient. CT with no evidence of acute cholecystitis 7. GI/DVT prophylaxis
--- NOTE | 2021-12-24 23:53 | P.PN ---
Date of Service: 12/23/21 Subjective Subjective: Patient white blood cell count has continued to decrease. Clinical symptoms continued to improve. Anticipate discharge over the next 24-48 hours if leukocytosis continues to get better. Review of Systems 10-point ROS is otherwise unremarkable Physical Examination - Vital Signs reviewed - Physical Exam General: Alert, In no apparent distress Respiratory: Clear to auscultation bilaterally, Normal air movement Cardiovascular: Regular rate/rhythm, Normal S1 S2 Gastrointestinal: Normal bowel sounds, No tenderness Neurological: Normal speech, Normal tone, Normal affect Assessment & Plan - Problems (Diagnosis) (1) Sickle cell pain crisis Current Visit: Yes Status: Acute (2) Hemolytic anemia with leukocytosis Current Visit: No Status: Acute Qualifiers: Hemolytic anemia type: hereditary hemolytic anemia, other Qualified Code(s): D58.8 - Other specified hereditary hemolytic anemias PLAN: 1. IV abx added for leukocytosis; as white count improves and we should be able to DC this. 2. Oral steroids ; tapering dose 3. Pain control; continue with pain control 4. renal ultrasound pending 5. unlikely to be renal infarct as renal function has remained stable 6. surgery will follow up as an outpatient. CT with no evidence of acute cholecystitis 7. GI/DVT prophylaxis
--- NOTE | 2021-12-24 23:55 | P.PN ---
Date of Service: 12/24/21 Subjective Subjective: Patient renal ultrasound is negative. White blood cell count remained stable. Continued to improve and into the 20,000 range. Anticipate discharge over the next 24-48 hours the patient states she is improving. CT of the chest pending. Respiratory status is stable. No shortness of breath at this point. Review of Systems 10-point ROS is otherwise unremarkable Physical Examination - Vital Signs reviewed - Physical Exam General: Alert, In no apparent distress Respiratory: Clear to auscultation bilaterally Cardiovascular: Regular rate/rhythm, Normal S1 S2 Gastrointestinal: Normal bowel sounds, No tenderness Neurological: Normal speech, Normal tone, Normal affect Assessment & Plan - Problems (Diagnosis) (1) Sickle cell pain crisis Current Visit: Yes Status: Acute (2) Hemolytic anemia with leukocytosis Current Visit: No Status: Acute Qualifiers: Hemolytic anemia type: hereditary hemolytic anemia, other Qualified Code(s): D58.8 - Other specified hereditary hemolytic anemias PLAN: Continue with plan of care as mentioned below: 1. IV abx added for leukocytosis; as white count improves and we should be able to DC this. 2. Oral steroids ; tapering dose 3. Pain control; continue with pain control 4. renal ultrasound without evidence of a renal infarct 5. repeat liver function testing 6. surgery will follow up as an outpatient. CT with no evidence of acute cholecystitis 7. GI/DVT prophylaxis
[2021-12-25] MEDS: PIPER TAZO 3.375 GM in NA CHLORIDE 0.9% 100 ML IV SCH ×3 (01:38→17:25)
[2021-12-25] MEDS: HYDROMORPHONE HCL 2 MG/ML inj IV PRN ×8 (01:43→22:45)
[2021-12-25] MEDS: PROMETHAZINE INJ 25 MG/ML AMP IV PRN ×4 (04:43→22:48)
[2021-12-25] MEDS: DIPHENHYDRAMINE 50 MG/ML VIAL IV PRN ×4 (04:44→22:47)
[2021-12-25] MEDS: Ringers Lactate 1,000 ML IV SCH ×2 (05:36→16:22)
[2021-12-25] MEDS: FOLIC ACID 1 MG TABLET PO SCH (07:51)
[2021-12-25] MEDS: predniSONE 20 MG TAB PO SCH (07:51)
[2021-12-25] MEDS: VOXELOTOR 500 MG PO SCH (07:53)
[2021-12-25 08:20] LABS: Absolute Lymphocytes (CBC) 5.4 K/uL (0.7-4.9); Hematocrit 24.8 % (36.0-45.0); Lymphocytes % 19.6 % (15.3-44.8); MCV 97.5 fL (80-100); MPV 8.4 fL (7.6-11.3); RBC Red Blood Cell Count 2.54 M/uL (3.86-4.86)
--- NOTE | 2021-12-25 09:01 | RAD REPORT ---
EXAM DESCRIPTION: CT - Thorax Wo Con CLINICAL HISTORY: Chest pain dyspnea COMPARISON: CTANGIO CHEST FOR PE dated 08/07/2012; Chest Single View dated 12/23/2021 FINDINGS: Mild infiltrate is present in both lung bases, greater on the left. Small amount of bilate ral pleural fluid, also greater on the left. No pneumothorax. Left-sided port catheter is noted with its tip in the SVC. No axillary, mediastinal or hilar adenopathy. No concerning bony finding. No gross upper abdominal finding. All CT scans are performed using dose optimization technique as appropriate and may include automated exposure control or mA/KV adjustment according to patient size. IMPRESSION: Bibasilar lung infiltrates are present, greater on the left with small amounts of pleura l fluid.Infection or aspiration is felt to be the most likely etiology.
[2021-12-25] MEDS ORDERED: HYDROMORPHONE HCL 0.5 MG/0.5 ML INJ IV ONE (12:35)
--- NOTE | 2021-12-25 19:18 | P.PN ---
Subjective Date of Service: 12/25/21 Chief Complaint: Sickle cell crisis No acute events overnight. She reports diffuse myalgias. She grades her pain a 9/10 in severity. She reports bilateral lower rib pain, that started yesterday. Review of Systems 10-point ROS is otherwise unremarkable General: Malaise Musculoskeletal: Other (generalized body pain) Physical Examination - Vital Signs Temperature: 97.0 F Blood Pressure: 103/46 Pulse: 78 Respirations: 16 Pulse Ox (%): 98 - Physical Exam General: Alert, In no apparent distress, Oriented x3 HEENT: Atraumatic, PERRLA, Mucous membr. moist/pink, EOMI, Sclerae nonicteric Neck: Supple, JVD not distended Respiratory: Diminished (bilateral bases) Cardiovascular: No edema, Regular rate/rhythm, Normal S1 S2, No gallops, No rubs, No murmurs Gastrointestinal: Normal bowel sounds, Soft and benign, Non-distended, No tenderness, No rebound, No guarding Musculoskeletal: No clubbing Integumentary: No rashes Neurological: Normal speech, Normal affect - Studies Medications List Reviewed: Yes Assessment And Plan - Plan # Acute Sickle Cell Vaso-Occlusive Pain Crisis with concern for Acute Chest Syndrome She reports generalized body pain, similar to her prior episodes of sickle cell pain crisis. She reports prior history of acute chest syndrome "several years ago." - Evaluation thus far: - Presenting Hgb = 9.1 (near baseline) - No thrombocytopenia, acute anemia, or splenic tenderness to suggest splenic/hepatic sequestration - Reticulocyte count = 0.48 - Chest x-ray = "no acute intrathoracic process suspected." - Peripheral blood smear = 2+ sickle cells - Management plan: - IV hydration Lactated Ringers' @ 100 mL/hr - Pain control: - PRN acetaminophen, hydromorphone - Monitor respiratory status - Incentive spirometry - Continue home folic acid, oxbryta (voxelotor) - Wanted to trial hydroxyurea - but she reports that she is intolerant to this - CT chest = "bibasilar lung infiltrates are present, greater on the left with small amounts of pleural fluid.Infection or aspiration is felt to be the most likely etiology." - This is concerning for acute chest syndrome, continue piperacillin- tazobactam and initiate transfer for higher level of care of Hematology consultation # Concern for Acute Cholecystitis (CT returned negative) # Indirect Hyperbilirubinemia # Cholelithiasis - General Surgery consulted and spoke with Dr. Moore - recommendations appreciated - Recommends non-surgical management - Piperacillin-Tazobactam 3.375 g IV q8hr - Pain control as mentioned above - RUQ evaluated = "hepatomegaly. Cholelithiasis. Mild gallbladder wall thickening may indicate cholecystitis. Borderline dilatation common bile duct " # History of Pulmonary Embolism - Switch apixaban to enoxaparin while hospitalized Jimenez Salinas M.D. Discharge Plan: Transfer
[2021-12-25] MEDS: ENOXAPARIN 80 MG/0.8 ML SQ SCH (19:57)
[2021-12-26] MEDS: PIPER TAZO 3.375 GM in NA CHLORIDE 0.9% 100 ML IV SCH ×3 (00:21→16:12)
[2021-12-26] MEDS: Ringers Lactate 1,000 ML IV SCH ×3 (01:31→20:22)
[2021-12-26] MEDS: HYDROMORPHONE HCL 2 MG/ML inj IV PRN ×8 (01:32→21:44)
[2021-12-26] MEDS: PROMETHAZINE INJ 25 MG/ML AMP IV PRN ×4 (04:40→21:44)
[2021-12-26] MEDS: DIPHENHYDRAMINE 50 MG/ML VIAL IV PRN ×4 (04:40→21:44)
[2021-12-26 07:23] LABS: Absolute Lymphocytes (CBC) 4.9 K/uL (0.7-4.9); Hematocrit 24.6 % (36.0-45.0); Lymphocytes % 18.1 % (15.3-44.8); MCV 94.9 fL (80-100); MPV 8.2 fL (7.6-11.3)
[2021-12-26 08:02] LABS: Albumin 3.1 g/dL (3.4-5.0); Bilirubin Total 1.3 mg/dL (0.2-1.0); Potassium 3.3 mmol/L (3.5-5.1); Protein, Total 6.7 g/dL (6.4-8.2)
[2021-12-26] MEDS ORDERED: POTASSIUM CL SA 10 MEQ TAB PO ONE (08:07)
[2021-12-26 08:45] LABS: Anisocytosis SLIGHT; Blood Morphology Comment NOTED (NOT SEEN); Macrocytosis SLIGHT; Platelet Estimate ADEQ; Polychromasia 1+
[2021-12-26] MEDS: VOXELOTOR 500 MG PO SCH (09:00)
[2021-12-26] MEDS: predniSONE 20 MG TAB PO SCH (10:21)
[2021-12-26] MEDS: ENOXAPARIN 80 MG/0.8 ML SQ SCH ×2 (10:21→20:22)
[2021-12-26] MEDS: FOLIC ACID 1 MG TABLET PO SCH (10:21)
--- NOTE | 2021-12-26 15:45 | P.PN ---
Subjective Date of Service: 12/26/21 Chief Complaint: Sickle cell crisis Subjective: Improving No acute events overnight. She reports diffuse myalgias, with partial response to hydromorphone. She grades her pain an 8/10 in severity. She reports bilateral lower rib pain is unchanged compared to yesterday. Review of Systems 10-point ROS is otherwise unremarkable Musculoskeletal: Other (generalized body aches, worse in bilateral lower ribs) Physical Examination - Vital Signs Temperature: 97.5 F Blood Pressure: 109/52 Pulse: 86 Respirations: 18 Pulse Ox (%): 96 - Studies Medications List Reviewed: Yes Assessment And Plan - Plan - Physical Exam General: Alert, In no apparent distress, Oriented x3 HEENT: Atraumatic, PERRLA, Mucous membr. moist/pink, EOMI, Sclerae nonicteric Neck: Supple, JVD not distended Respiratory: Diminished (bilateral bases) Cardiovascular: No edema, Regular rate/rhythm, Normal S1 S2, No gallops, No rubs, No murmurs Gastrointestinal: Normal bowel sounds, Soft and benign, Non-distended, No tenderness, No rebound, No guarding Musculoskeletal: No clubbing Integumentary: No rashes Neurological: Normal speech, Normal affect # Acute Sickle Cell Vaso-Occlusive Pain Crisis with concern for Acute Chest Syndrome She reports generalized body pain, similar to her prior episodes of sickle cell pain crisis. She reports prior history of acute chest syndrome "several years ago." - Evaluation thus far: - Presenting Hgb = 9.1 (near baseline) - No thrombocytopenia, acute anemia, or splenic tenderness to suggest splenic/hepatic sequestration - Reticulocyte count = 0.48 - Chest x-ray = "no acute intrathoracic process suspected." - Peripheral blood smear = 2+ sickle cells - Management plan: - IV hydration Lactated Ringers' @ 100 mL/hr - Pain control: - PRN acetaminophen, hydromorphone - Monitor respiratory status - Incentive spirometry - Continue home folic acid, oxbryta (voxelotor) - Wanted to trial hydroxyurea - but she reports that she is intolerant to this - CT chest = "bibasilar lung infiltrates are present, greater on the left with small amounts of pleural fluid.Infection or aspiration is felt to be the most likely etiology." - This is concerning for acute chest syndrome, continue piperacillin- tazobactam + doxycycline and initiated transfer for higher level of care of Hematology consultation - She has been accepted to [facility] by Dr. Benavides (Internal Medicine) - she is pending a Med/Surg bed # Concern for Acute Cholecystitis (CT returned negative) # Indirect Hyperbilirubinemia # Cholelithiasis - General Surgery consulted and spoke with Dr. Moore - recommendations appreciated - Recommends non-surgical management - Piperacillin-Tazobactam 3.375 g IV q8hr - Pain control as mentioned above - RUQ evaluated = "hepatomegaly. Cholelithiasis. Mild gallbladder wall thickening may indicate cholecystitis. Borderline dilatation common bile duct " # History of Pulmonary Embolism - Switch apixaban to enoxaparin while hospitalized Jimenez Salinas M.D. Discharge Plan: Transfer ([facility] when Med/Surg bed available) Plan to discharge in: Unknown
[2021-12-26] MEDS: DOXYCYCLINE 100 MG in NA CHLORIDE 0.9% 100 ML IVPB SCH (20:22)
[2021-12-27] MEDS: PIPER TAZO 3.375 GM in NA CHLORIDE 0.9% 100 ML IV SCH ×4 (00:31→23:48)
[2021-12-27] MEDS: HYDROMORPHONE HCL 2 MG/ML inj IV PRN ×9 (00:34→23:46)
[2021-12-27] MEDS: PROMETHAZINE INJ 25 MG/ML AMP IV PRN ×4 (03:24→21:06)
[2021-12-27] MEDS: DIPHENHYDRAMINE 50 MG/ML VIAL IV PRN ×4 (03:24→21:06)
[2021-12-27 03:50] LABS: Hematocrit 24.8 % (36.0-45.0); Lymphocytes % 16.1 % (15.3-44.8); MCV 95.7 fL (80-100); MPV 8.4 fL (7.6-11.3); RBC Red Blood Cell Count 2.59 M/uL (3.86-4.86)
[2021-12-27 04:02] LABS: Potassium 3.9 mmol/L (3.5-5.1)
[2021-12-27] MEDS ORDERED: POTASSIUM CL SA 10 MEQ TAB PO ONE (05:00)
[2021-12-27] MEDS ORDERED: HYDROMORPHONE HCL 1 MG/ML INJ IV ONE (05:05)
[2021-12-27] MEDS: Ringers Lactate 1,000 ML IV SCH ×2 (05:16→16:45)
[2021-12-27] MEDS ORDERED: HYDROMORPHONE HCL 1 MG/ML INJ ONE (05:21)
[2021-12-27] MEDS: DOXYCYCLINE 100 MG in NA CHLORIDE 0.9% 100 ML IVPB SCH ×2 (08:26→21:07)
[2021-12-27] MEDS: VOXELOTOR 500 MG PO SCH (09:00)
[2021-12-27] MEDS: FOLIC ACID 1 MG TABLET PO SCH (09:23)
[2021-12-27] MEDS: ENOXAPARIN 80 MG/0.8 ML SQ SCH ×2 (09:24→21:07)
[2021-12-27] MEDS: predniSONE 20 MG TAB PO SCH (09:24)
--- NOTE | 2021-12-27 17:57 | P.PN ---
Subjective Date of Service: 12/27/21 Chief Complaint: Sickle cell crisis No acute events overnight. She grades her generalized pain an 9-10/10 in severity today. She reports bilateral lower rib pain is persistent and unchanged. Review of Systems 10-point ROS is otherwise unremarkable Musculoskeletal: Other (genmeralized body pain) Physical Examination - Vital Signs Temperature: 97.8 F Blood Pressure: 106/56 Pulse: 82 Respirations: 16 Pulse Ox (%): 95 - Studies Medications List Reviewed: Yes Assessment And Plan - Plan - Physical Exam General: Alert, In no apparent distress, Oriented x3 HEENT: Atraumatic, PERRLA, Mucous membr. moist/pink, EOMI, Sclerae nonicteric Neck: Supple, JVD not distended Respiratory: Diminished (bilateral bases) Cardiovascular: No edema, Regular rate/rhythm, Normal S1 S2, No gallops, No rubs, No murmurs Gastrointestinal: Normal bowel sounds, Soft and benign, Non-distended, No tenderness, No rebound, No guarding Musculoskeletal: No clubbing Integumentary: No rashes Neurological: Normal speech, Normal affect # Acute Sickle Cell Vaso-Occlusive Pain Crisis with concern for Acute Chest Syndrome She reports generalized body pain, similar to her prior episodes of sickle cell pain crisis. She reports prior history of acute chest syndrome "several years ago." - Evaluation thus far: - Presenting Hgb = 9.1 (near baseline) - No thrombocytopenia, acute anemia, or splenic tenderness to suggest splenic/hepatic sequestration - Reticulocyte count = 0.48 - Chest x-ray = "no acute intrathoracic process suspected." - Peripheral blood smear = 2+ sickle cells - Management plan: - IV hydration Lactated Ringers' @ 100 mL/hr - Pain control: - PRN acetaminophen, hydromorphone - Monitor respiratory status - Incentive spirometry - Continue home folic acid, oxbryta (voxelotor) - Wanted to trial hydroxyurea - but she reports that she is intolerant to this - CT chest = "bibasilar lung infiltrates are present, greater on the left with small amounts of pleural fluid.Infection or aspiration is felt to be the most likely etiology." - This is concerning for acute chest syndrome, continue piperacillin- tazobactam + doxycycline and initiated transfer for higher level of care of Hematology consultation - She has been accepted to [facility] by Dr. Benavides (Internal Medicine) - she is pending a Med/Surg bed # Concern for Acute Cholecystitis (CT returned negative) # Indirect Hyperbilirubinemia # Cholelithiasis - General Surgery consulted and spoke with Dr. Moore - recommendations appreciated - Recommends non-surgical management - Piperacillin-Tazobactam 3.375 g IV q8hr - Pain control as mentioned above - RUQ evaluated = "hepatomegaly. Cholelithiasis. Mild gallbladder wall thickening may indicate cholecystitis. Borderline dilatation common bile duct " # History of Pulmonary Embolism - Switch apixaban to enoxaparin while hospitalized - Continue current plan of care - awaiting bed availability at [facility] Jimenez Salinas M.D. Discharge Plan: Transfer Plan to discharge in: Unknown
[2021-12-28] MEDS: HYDROMORPHONE HCL 2 MG/ML inj IV PRN ×6 (02:20→17:21)
[2021-12-28] MEDS: DIPHENHYDRAMINE 50 MG/ML VIAL IV PRN ×4 (02:22→20:21)
[2021-12-28] MEDS: PROMETHAZINE INJ 25 MG/ML AMP IV PRN ×4 (02:23→20:21)
[2021-12-28] MEDS ORDERED: HYDROMORPHONE HCL 1 MG/ML INJ IV ONE ×2 (03:56→16:05)
[2021-12-28 04:29] LABS: Absolute Lymphocytes (CBC) 5.3 K/uL (0.7-4.9); Hematocrit 23.7 % (36.0-45.0); Lymphocytes % 17.8 % (15.3-44.8); MPV 8.1 fL (7.6-11.3); RBC Red Blood Cell Count 2.47 M/uL (3.86-4.86)
[2021-12-28 04:47] LABS: Potassium 3.9 mmol/L (3.5-5.1)
[2021-12-28] MEDS: Ringers Lactate 1,000 ML IV SCH ×2 (05:00→16:13)
[2021-12-28] MEDS: PIPER TAZO 3.375 GM in NA CHLORIDE 0.9% 100 ML IV SCH (08:24)
[2021-12-28] MEDS: ENOXAPARIN 80 MG/0.8 ML SQ SCH ×2 (08:25→20:20)
[2021-12-28] MEDS: FOLIC ACID 1 MG TABLET PO SCH (08:25)
[2021-12-28] MEDS: DOXYCYCLINE 100 MG in NA CHLORIDE 0.9% 100 ML IVPB SCH (08:25)
[2021-12-28] MEDS: predniSONE 20 MG TAB PO SCH (08:25)
[2021-12-28] MEDS: VOXELOTOR 500 MG PO SCH (08:26)
[2021-12-28] MEDS ORDERED: POTASSIUM CL SA 10 MEQ TAB PO ONE (09:00)
[2021-12-28 09:07] VITALS: O2SAT 98
--- NOTE | 2021-12-28 17:25 | P.DS ---
Admission Date: 12/13/21 Discharge Date: 12/28/21 Disposition: TRANSFER TO [facility] Comment: [facility] Discharge Condition: GOOD Reason for Admission: Sickle cell crisis Consultations: 1. General Surgery Hospital Course: DIAGNOSES: # Acute Sickle Cell Vaso-Occlusive Pain Crisis with concern for Acute Chest Syndrome # Concern for Acute Cholecystitis (CT returned negative) # Indirect Hyperbilirubinemia # Cholelithiasis # History of Pulmonary Embolism HOSPITAL COURSE: Ms. Gume Ortega is a pleasant 31 year old female with a past medical history significant for sickle cell anemia and a history of pulmonary embolism who was admitted to the [facility] on 12/13/2021 for generalized body aches. She was admitted to the hospital for an acute sickle cell vaso-occlusive pain crisis. She was admitted to the Medicine service for further treatment. Her hospitalization was complicated by hyperbilirubinumeia on 12/16/2021. A RUQ ultrasound was obtained, which revealed, "hepatomegaly. Cholelithiasis. Mild gallbladder wall thickening may indicate cholecystitis. Borderline dilatation common bile duct." A CT abdomen/pelvis revealed, "1. Cholelithiasis with contracted gallbladder with wall thickening. While acute cholecystitis is within the differential, typically the gallbladder is dilated rather than contracted. No biliary ductal dilatation. If there is persistent clinical concern, could consider HIDA scan to confirm cystic duct patency. 2. New small wedge-shaped defects in the left kidney could represent pyelonephritis or small acute or subacute splenic infarcts." General Surgery was consulted and Dr. Moore evaluated her. He recommended non-surgical management. Several days ago, she began developing bilateral lower rib pain and repeat imaging was obtained. Her repeat imaging was concerning for bilateral basilar lung infiltrates, which were new compared to prior images. Given her history of acute chest syndrome, requested transfer to [facility] for a formal hematology consultation. I have completed doc-to-doc with Dr. Kym Squires ([facility] Hospitalist), who has generously accepted her for transfer. On 12/28/2021, she was seen on rounds and deemed medically stable for discharge. She was given the opportunity to ask questions and reported no further questions. Furthermore, all questions were answered to the best of my ability. Today, I personally spent 35 minutes on her case, of which greater than 50% of the time was spent in patient education, counseling, and coordination of care as described above. - Physical Exam General: Alert, In no apparent distress, Oriented x3 HEENT: Atraumatic, PERRLA, Mucous membr. moist/pink, EOMI, Sclerae nonicteric Neck: Supple, JVD not distended Respiratory: Diminished (bilateral bases) Cardiovascular: No edema, Regular rate/rhythm, Normal S1 S2, No gallops, No rubs, No murmurs Gastrointestinal: Normal bowel sounds, Soft and benign, Non-distended, No tenderness, No rebound, No guarding Musculoskeletal: No clubbing Integumentary: No rashes Neurological: Normal speech, Normal affect Vital Signs/Physical Exam: Temp Pulse Resp BP Pulse Ox 98.0 F 66 16 117/56 L 94 12/28/21 15:50 12/28/21 15:50 12/28/21 15:50 12/28/21 15:50 12/28/21 15:50 Laboratory Data at Discharge: WBC 29.50 K/uL (4.3-10.9) H* 12/28/21 04:10 Hgb 8.2 g/dL (12.0-15.0) L 12/28/21 04:10 Hct 23.7 % (36.0-45.0) L 12/28/21 04:10 Plt Count 614 K/uL (152-406) H 12/28/21 04:10 PT 15.5 SECONDS (9.5-12.5) H 12/17/21 13:10 INR 1.40 12/17/21 13:10 APTT 64.0 SECONDS (24.3-36.9) H 12/13/21 19:25 Sodium 136 mmol/L (136-145) 12/28/21 04:10 Potassium 3.9 mmol/L (3.5-5.1) 12/28/21 04:10 BUN 7 mg/dL (7-18) 12/28/21 04:10 Creatinine 0.53 mg/dL (0.55-1.3) L 12/28/21 04:10 Glucose 127 mg/dL (74-106) H 12/28/21 04:10 Magnesium 1.5 mg/dL (1.8-2.4) L 12/19/21 04:25 Total Bilirubin 1.3 mg/dL (0.2-1.0) H 12/26/21 07:00 AST 21 U/L (15-37) 12/26/21 07:00 ALT 62 U/L (12-78) 12/26/21 07:00 Alkaline Phosphatase 86 U/L (45-117) 12/26/21 07:00 Home Medications: Folic Acid [Folic Acid*] 1 mg PO DAILY 08/01/12 Cholecalciferol (Vitamin D3) [Vitamin D 1000 Iu Tab*] 1,000 unit PO EVERY 7TH DAY 09/30/20 Apixaban [Eliquis *] 2.5 mg PO BID #60 tablet 12/21/20 Hydromorphone HCl [Dilaudid] 8 mg PO TID PRN 30 Days #60 tablet 10/25/21 Polyethyl Gly 3350 [Glycolax*] 17 gm PO DAILYPRN PRN #30 udbot 10/26/21 Promethazine Tab [Phenergan*] 25 mg PO Q4H PRN #30 tab 10/26/21 Ascorbic Acid [Vitamin C*] 500 mg PO DAILY 12/06/21 Voxelotor [Oxbryta] 500 mg PO DAILY 12/14/21 Diet: Regular Activity: Ad gina Followup: NONE,NONE [Primary Care Provider] - Time spent managing pt's care (in minutes): 35
[2021-12-28 20:08] VITALS: BP 121/62; TEMP 97.4
[2021-12-28] MEDS ORDERED: DOXYCYCLINE 100 MG CAP PO SCH (21:00)
== END 2021-12-28 20:46 | disposition short-term general hospital (02) | DRG 812 ==
LOC: ER 17:33 → ERHOLD 22:15 → 2ND 12-14 10:08
PROVIDERS: ADMIT Internal Medicine; ATTEND Internal Medicine
PROC: 30233N1 Transfusion of Nonautologous Red Blood Cells into Peripheral Vein, Percutaneous Approach (ICD-10-PCS; principal; 2021-12-13)
DX: D57.00 Hb-SS disease with crisis, unspecified (principal); K80.20 Calculus of gallbladder without cholecystitis without obstruction; E87.6 Hypokalemia; E80.6 Other disorders of bilirubin metabolism; D72.829 Elevated white blood cell count, unspecified; Z88.1 Allergy status to other antibiotic agents; Z88.5 Allergy status to narcotic agent; Z79.01 Long term (current) use of anticoagulants; Z86.711 Personal history of pulmonary embolism; Z79.899 Other long term (current) drug therapy; Z20.822 Contact with and (suspected) exposure to COVID-19
CPT/HCPCS: 36415; 36430; 71045; 71250; 74177; 76705; 76770; 80048; 80053; 80076; 81025; 82247; 82248; 83010; 83605; 83615; 83735; 84132; 85025; 85044; 85610; 85660; 85730; 86850; 86880; 86900; 86901; 86902; 87811; 94010; 94760; 96361; 96374; 96375; 99285; J1170; J1200; J2405; J2543; J2550; J2930; J3010; J3480; J7030; J7040; J7050; J7120; J7512; P9016; Q9967; U0003

== ENCOUNTER 2022-01-03 12:50 | Inpatient (IN) | payer OTHER ==
--- OUTSIDE RECORDS SUMMARY | 2022-01-03 17:17 | XMS REPORT | Continuity of Care Document ---
:1990 Author Organization [facility] t Address [address] [place] [address] Support Name Relationship Address Phone [address] [phone] [place] [address] [address] [place] [address] [address] [phone] [place] [address] DENAE CHEEMA Unavailable [phone] MARIA M KENDRICK Unavailable [phone] REHAN CHEEMA Unavailable [phone] [facility] [phone] [place] [address] [address] [place] [address] [place] [address] [place] [address] [phone] [place] [address] MARÍA ELENA EL Unavailable [address] [facility] [phone] [place] [address] NELDA EL Unavailable [phone] [facility] [phone] [place] [address] MD AMY ALONZO JR Admitting Provider 1717 [facility] JEAN [address] [place] [address] TRAY SIDDIQUI PA-C Primary Care Physician Donna SMITH [address] [place] [address] MD CAROLINA LILLY MD A Emergency Provider [address] [place] [address] ORIANA MCNAMARA MD Attending Provider [address] [place] [address] IZZY MULLEN, CHAU Castellanos Emergency Provider [address] [place] [address] PHYSICIAN, NO Primary Care Physician Unavailable Unavailab MD AMARILIS Jones MD Emergency Provider [address] [place] [address] [place] [address] OTHER, ENTER NAME IN Primary Care Physician Unavailable Unav ailable NOTES KIP MULLEN MD JENNIFER Emergency Provider [address] [place] [address] MD TYRON MASON MD Admitting Provider [address] [place] [address] MORIS FRANCIS Primary Care Physician 201 [facility] [phone] [place] [address] MD AMRITA [facility] Emergency Provider [facility] [place] [address] MD TYLER WRIGHT Emergency Provider Unavailable Unavailable MD SAMUEL KUMAR Emergency Provider [address] [place] [address] [place] [address] MD LESLY NEWTON Emergency Provider [address] [place] [address] Care Team Providers Name Role Phone ARMONDWASHINGTON AQUIL Primary Care Physician Unavailable MAURICIO GRISSOM Attending Clinician Unavailable KRISTINA BALL Attending Clinician Unavailable JOSE DAMON Attending Clinician Unavailable AURORA GUTIERREZ Attending Clinician Unavailable RAHEL CORREARUSTY Attending Clinician Unavailable JENNIFER SHAH Attending Clinician Unavailable AAMIR MCCLOUD I Attending Clinician Unavailable ASHELY WOODRUFF Attending Clinician Unavailable MEENU RODRIGUEZ Admitting Clinician Unavailable AURORA GUTIERREZ Admitting Clinician Unavailable ENRIQUE PEGUERO Admitting Clinician Unavailable EARL CARTER Admitting Clinician Unavailable Payers Payer Name Policy Type Policy Number Effective Date Expiration Date Lester ibarra [facility] [id number] 2021 00:00:00 PLAN Problems Condition Condition Condition Status Onset Resolution Last Treating Co mments Source Name Details Category Date Date Treatment Clinician Date Leukocytos Leukocytos Disease Active [facility] Pneumonia Pneumonia Disease Active [facility] 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[facility] 229 [facility] anemia anemia [facility] Center 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[facility] crisis crisis 00[facility] 00 Center Allergies, Adverse Reactions, Alerts Allergy Allergy Status Severity Reaction(s) Onset Inactive Treating Comm ents Source Name Type Date Date Clinician FENTANYL Allergy Active [facility] MORPHINE Allergy Active [facility] SULFA Allergy Active [facility] (SULFONA [facility]18 [facility] MIDE 00:00: Medical ANTIBIOT 00 Center ICS) ONDANSET Allergy Active Low N\T\V [facility] RISHABH HCL 2-28 (PF) 00:00: 00 Ondanset Drug Active Nausea And [facility] r[facility]abh Hcl Intolera Vomiting 2-28 [facility] (Pf) nce 00:00: Medical 00 [place] morphine DA Active [facility] 3[facility] [place] 00:00: d 00 [facility] TEGEDERM DA Active [facility] DRESSING 8-23 [place] 00:00: d 00 [facility] Family History Family Member Diagnosis Comments Start Date Stop Date Source Natural mother Sickle cell trait [facility] Natural sister Unremarkable [facility] Natural brother Unremarkable [facility] Natural father Seizures [facility] Natural father Sickle cell trait [facility] Social History Social Habit Start Date Stop Date Quantity Comments Source Alcohol intake 2018-08-02 2018[facility]08-02 [facility] non-drinker of Medical Ce nter alcohol (finding) Tobacco use and 2015-07-10 2015-07-10 Never used [facility] exposure 00:00:00 00:00:00 [facility] Center Sex Ass[birth year] At [birth year] [facility] 00:00:00 00:00:00 Medical Center Smoking Status Start Date Stop Date Source Never sm[facility] Medications Ordered Filled Start Stop Current [...] mouth once Medi rita 00 a week. [place] VITAMIN D2 Yes 1{capsu Q7D Take [address] [facility],000 unit 2-25 le} capsule by Ariana kes capsule 00:00: mouth once Medi rita 00 a week. [place] VITAMIN D2 Yes 1{capsu Q7D Take [address] [facility],000 unit 2-25 le} capsule by Ariana kes capsule 00:00: mouth once Medi rita 00 a week. [place] VITAMIN D2 Yes 1{capsu Q7D Take [address] [facility],000 unit 2-25 le} capsule by Ariana kes capsule 00:00: mouth once Medi rita 00 a week. [place] VITAMIN D2 Yes 1{capsu Q7D Take [address] [facility],000 unit 2-25 le} capsule by Ariana kes capsule 00:00: mouth once Medi rita 00 a week. [place] PROAIR HFA 2018- Yes 1{puff} Inhale 1 [...] 6 (six) hours as needed. PROAIR HFA 2018-0 Yes 1{puff} Inhale 1 [...] Center tablet (eight) hours as needed nausea. Vital Signs Vital Name Observation Time Observation Value Comments Source WEIGHT 2022-01-03 05:27:00 72.485 kg WEIGHT 2022-01-02 05:00:00 72.213 kg WEIGHT 2022-01-01 05:18:00 71.986 kg WEIGHT 2021-12-31 06:20:00 72.938 kg WEIGHT 2021-12-29 04:45:00 72.576 kg HEIGHT 2021-12-28 22:08:00 157.5 cm WEIGHT 2021-12-28 22:08:00 72.893 kg WEIGHT 2022-01-03 05:27:00 72.485 kg WEIGHT 2022-01-02 05:00:00 72.213 kg WEIGHT 2022-01-01 05:18:00 71.986 kg WEIGHT 2021-12-31 06:20:00 72.938 kg WEIGHT 2021-12-29 04:45:00 72.576 kg HEIGHT 2021-12-28 22:08:00 157.5 cm WEIGHT 2021-12-28 22:08:00 72.893 kg Procedures This patient has no known procedures. [...] [facility] 00:00:00 (12+) [code = [facility] Center DEPRESSION SCREENING (12+)] Future Scheduled 2020-05-[address] [facility] Test 00:00:00 (12+) [code = [facility] Center DEPRESSION SCREENING (12+)] Future Scheduled 2020-01-12 [...] Medica l Center cervix (procedure) [code = 886239441] Future Scheduled 2012-09-[address] [facility] 00:00:00 malignant neoplasm of Medica l Center cervix (procedure) [code = 410574538] Future Scheduled 2012-09-[address] [facility] Test 00:00:00 malignant neoplasm of Medica [facility] Center cervix (procedure) [code = 406448371] Future Scheduled 2012-09-[address] [facility] Test 00:00:00 malignant neoplasm of Medica [facility] Center cervix (procedure) [code = 867410246] Future Scheduled 2012-09-[address] [facility] Test 00:00:00 malignant neoplasm of Medica l Center cervix (procedure) [code = 526428505] Future Scheduled [address] [facility] Test 00:00:00 (procedure) [code = [facility] 92662395] Future Scheduled [address] [facility] Test 00:00:00 (procedure) [code = [facility] 00540156] Future Scheduled [address] [facility] Test 00:00:00 (procedure) [code = [facility] [id number]] Future Scheduled [address] [facility] Test 00:00:00 (procedure) [code = [facility] 86720324] Future Scheduled [address] [facility] Test 00:00:00 (procedure) [code = [facility] 86270530] Future Scheduled 2010-09-05 DTAP/TDAP/TD VACCINES CH I [...] Date/Time Type Type Clinicians Facility Department ID 2022-01-09 2022-01-09 Outpatient SATISH GRISSOM [facility] [id number] [facility] 00:00:00 00:00:00 MAURICIO 2021-12-28 2022-01-03 Inpatient UR QUINN, KRISTINA [facility] General Med 2 [id number] [facility] 21:57:00 15:59:00 2021-06-05 2021-06-08 Inpatient E BRENDA [facility] MED [id number] [address] 04:10:00 13:24:00 AURORA 2021-06-03 2021-06-03 [facility] [...] Source CBC W/PLT COUNT & AUTO DIFFERENTIAL 2022-01-03 07:10:44 Test Item Value Reference Range Interpretation Comme nts WHITE BLOOD CELL COUNT (BEAKER) (test code = 775) 28.4 K/ L 3.5- 10.5 H RED BLOOD CELL COUNT (BEAKER) (test code = 761) 2.13 M/ L 3.93-5 .22 L HEMOGLOBIN (BEAKER) (test code = 410) 7.0 GM/DL 11.2-15.7 L HEMATOCRIT (BEAKER) (test code = 411) 19.8 % 34.1-44.9 L MEAN CORPUSCULAR VOLUME (BEAKER) (test code = 753) 93.0 fL 79. 4-94.8 MEAN CORPUSCULAR HEMOGLOBIN (BEAKER) (test code = 751) 32.9 pg 25.6-32.2 H MEAN CORPUSCULAR HEMOGLOBIN CONC (BEAKER) (test code = 752) 35.4 GM/DL 32.2-35.5 RED CELL DISTRIBUTION WIDTH (BEAKER) (test code = 412) 22.2 % 11.7-14.4 H PLATELET COUNT (BEAKER) (test code = 756) 582 K/CU MM 150-450 H MEAN PLATELET VOLUME (BEAKER) (test code = 754) 9.8 fL 9.4-12 .3 NUCLEATED RED BLOOD CELLS (BEAKER) (test code = 413) 3 /100 WBC 0 -0 H (CELLAVISION MANUAL DIFF)2022-01-03 07:10:44 Test Item Value Reference Range Interpretation Comments NEUTROPHILS - REL 49 % (CELLAVISION)(BEAKER) (test code = 2816) LYMPHOCYTES - REL 32 % (CELLAVISION)(BEAKER) (test code = 2817) MONOCYTES - REL 12 % (CELLAVISION)(BEAKER) (test code = 2818) EOSINOPHILS - REL 2 % (CELLAVISION)(BEAKER) (test code = 2819) BASOPHILS - REL 1 % (CELLAVISION)(BEAKER) (test code = 2820) METAMYELOCYTES - REL 1 % 0-0 H (CELLAVISION)(BEAKER) (test code = 2821) MYELOCYTES - REL 1 % 0-0 H (CELLAVISION)(BEAKER) (test code = 2822) BANDS - REL (CELLAVISION)(BEAKER) 1 % 0-10 (test code = 2826) ATYPICAL LYMPHOCYTES - REL 1 % 0-0 H (CELLAVISION)(BEAKER) (test code = 2829) NEUTROPHILS - ABS 13.92 K/ul 1.56-6.13 H (CELLAVISION)(BEAKER) (test code = 2830) LYMPHOCYTES - ABS 9.09 K/ul 1.18-3.74 H (CELLAVISION)(BEAKER) (test code = 2831) MONOCYTES - ABS 3.41 K/uL 0.24-0.36 H (CELLAVISION)(BEAKER) (test code = 2832) EOSINOPHILS - ABS 0.57 K/uL 0.04-0.36 H (CELLAVISION)(BEAKER) (test code = 2834) BASOPHILS - ABS 0.28 K/uL 0.01-0.08 H (CELLAVISION)(BEAKER) (test code = 2835) METAMYELOCYTES - ABS 0.28 K/uL 0.00-0.00 H (CELLAVISION)(BEAKER) (test code = 2836) MYELOCYTES-ABS 0.28 K/uL 0.00-0.00 H (CELLAVISION)(BEAKER) (test code = 2837) BANDS - ABS (CELLAVISION)(BEAKER) 0.28 K/uL 0.00-0.80 (test code = 2840) ATYPICAL LYMPHOCYTES - ABS 0.28 K/uL 0.00-0.00 H (CELLAVISION)(BEAKER) (test code = 3168) TOTAL COUNTED (BEAKER) (test code 100 = 1351) MANUAL NRBC PER 100 CELLS 5 /100 WBC 0-0 H (BEAKER) (test code = 1353) WBC MORPHOLOGY (BEAKER) (test Normal code = 487) GIANT PLATELETS (BEAKER) (test Present code = 313) POLYCHROMATOPHILLIC RBCS(BEAKER) 3+ many (test code = 478) ANISOCYTOSIS (BEAKER) (test code 1+ few = 961) MACROCYTES (BEAKER) (test code = 1+ few 964) POIKILOCYTES (BEAKER) (test code 2+ moderate = 966) SICKLE CELLS (BEAKER) (test code 1+ few = 767) ELLIPTOCYTES (BEAKER) (test code 1+ few = 962) ARTIFACT (CELLAVISION)(BEAKER) Present (test code = 3432) PLATELET CONCENTRATION Increased (CELLAVISION)(BEAKER) (test code = 0768) Lounge Car Attendant ID - emanuel Srikanth comments: Slide comments:BASIC METABOLIC PANEL 2022-01-03 04:33:47 Test Item Value Reference Range Interpretation Comments SODIUM (BEAKER) 135 meq/L 136-145 L (test code = 381) POTASSIUM 4.5 meq/L 3.5-5.1 (BEAKER) (test code = 379) CHLORIDE (BEAKER) 105 meq/L 98-107 (test code = 382) CO2 (BEAKER) 23 meq/L 22-29 (test code = 355) BLOOD UREA 10 mg/dL 7-21 NITROGEN (BEAKER) (test code = 354) CREATININE 0.54 mg/dL 0.57-1.25 L (BEAKER) (test code = 358) GLUCOSE RANDOM 102 mg/dL 70-105 (BEAKER) (test code = 652) CALCIUM (BEAKER) 8.8 mg/dL 8.4-10.2 (test code = 697) EGFR (BEAKER) 127 Interpretatio n of eGFR (test code = mL/min/1.73 values Stage De scription 1092) sq m Result G1 Starr l or high >=90 G2 Mildly decreased 60-89 G3a Mildl y to moderately 45-5 9 G3b Moderately to s everely 30-44 G4 Severl y decreased 15-29 G5 Kidney failure <15Reported eGF R is based on the CKD-EPI 2020 equation that d oes not use a race coefficientEsti mated GFR is not as accur ate as Creatinine Joy [facility] in predicting glom erular filtration rate . Estimated GFR is not appl icable for dialysis patien ts Lounge Car Attendant ID - PIETER MSpecimen slightly ictericSARS-COV2/RT-PCR ([facility])2022-01-03 01:56:54 Test Item Value Reference Range Interpretation Comments SARS-COV2/RT-PCR (test Negative Not Detected, Negative, code = 6262958) See external report for linked test SARS-COV-2 PERFORMING LAB [facility] JESUS (test code = 5801224) Negative result for this test determines that SARS-CoV-2 RNA was not present in the specimen above the Limit of Detection (LOD). However, Negative results do not preclude SARS-CoV-2 infection and should not be used as the sole basis for treatment or patient management decisions. Negative results must be combined with clinical observations, patient history, and epidemiological information. A false negative result may occur if a specimen is improperly collected, transported or handled. A false negative result should be considered if patient's recent exposures or clinical presentation indicate that COVID-19 (SARS-CoV-2) is likely and diagnostic tests for other causes of illness are negative. Re-testing should be considered in cases of suspected false negatives.The limit of detection for this assay is 800 copies/mL.This SARS CoV-2 test is a real-time RT-PCR test intended for the qualitative detection of nucleic acid from SARS-CoV-2 in a nasopharyngeal swab specimen collected from individuals suspected of COVID-19 by their healthcare provider.This test has not been Food and Drug Administration (FDA) cleared or approved. This is a modified version of an approved Emergency Use Authorization (EUA) and is in the process of review by the FDA. Once authorized by the FDA, the issued EUA will be effective until the declaration that circumstances exist justifying the authorization of the emergency use ofin vitro diagnostic tests for detection and/or diagnosis of COVID-19 is terminated under Section 564(b)(2) of the Act or the EUA is revoked under Section 564(g) of the Act.Fact Sheet for Healthcare Prov iders:https://www.2Nite2Nite.net/sites/default/files/product/documents/Fact_Sheet_HC _Ocquttvrk_Fsex_ZXCF-ZpS-3.pdfFact Sheet for Healthcare Patients:https://www.2Nite2Nite.net/sites/default/files/product/docume nts/Qctk_Ilydt_Vwqzlygr_Afbx_BIGP-IjM-5.pdfPerforming Laboratory:[facility] [place] [address](CELLAVISION MANUAL DIFF) 2022-01-02 07:09:24 Test Item Value Reference Range Interpretation Comments NEUTROPHILS - REL 58 % (CELLAVISION)(BEAKER) (test code = 2816) LYMPHOCYTES - REL 21 % (CELLAVISION)(BEAKER) (test code = 2817) MONOCYTES - REL 15 % (CELLAVISION)(BEAKER) (test code = 2818) EOSINOPHILS - REL 3 % (CELLAVISION)(BEAKER) (test code = 2819) BASOPHILS - REL 2 % (CELLAVISION)(BEAKER) (test code = 2820) BANDS - REL (CELLAVISION)(BEAKER) 1 % 0-10 (test code = 2826) NEUTROPHILS - ABS 17.81 K/ul 1.56-6.13 H (CELLAVISION)(BEAKER) (test code = 2830) LYMPHOCYTES - ABS 6.45 K/ul 1.18-3.74 H (CELLAVISION)(BEAKER) (test code = 2831) MONOCYTES - ABS 4.61 K/uL 0.24-0.36 H (CELLAVISION)(BEAKER) (test code = 2832) EOSINOPHILS - ABS 0.92 K/uL 0.04-0.36 H (CELLAVISION)(BEAKER) (test code = 2834) BASOPHILS - ABS 0.61 K/uL 0.01-0.08 H (CELLAVISION)(BEAKER) (test code = 2835) BANDS - ABS (CELLAVISION)(BEAKER) 0.31 K/uL 0.00-0.80 (test code = 2840) TOTAL COUNTED (BEAKER) (test code 100 = 1351) MANUAL NRBC PER 100 CELLS 3 /100 WBC 0-0 H (BEAKER) (test code = 1353) WBC MORPHOLOGY (BEAKER) (test Normal code = 487) PLT MORPHOLOGY (BEAKER) (test Normal code = 486) POLYCHROMATOPHILLIC RBCS(BEAKER) 2+ moderate (test code = 478) ANISOCYTOSIS (BEAKER) (test code 2+ moderate = 961) MACROCYTES (BEAKER) (test code = 2+ moderate 964) POIKILOCYTES (BEAKER) (test code 2+ moderate = 966) TARGET CELLS (BEAKER) (test code 1+ few = 480) SICKLE CELLS (BEAKER) (test code 2+ moderate = 767) ARTIFACT (CELLAVISION)(BEAKER) Present (test code = 3432) PAPPENHEIMER 1+ few (CELLAVISION)(BEAKER) (test code = 3435) PLATELET CONCENTRATION Increased (CELLAVISION)(BEAKER) (test code = 3438) Lounge Car Attendant ID - Martine OverholtUser comments: Slide comments:CBC W/PLT COUNT & AUTO [id number] 07:09:23 Test Item Value Reference Range Interpretation Comments WHITE BLOOD CELL COUNT (BEAKER) 30.7 K/ L 3.5-10.5 H (test code = 775) RED BLOOD CELL COUNT (BEAKER) 2.20 M/ L 3.93-5.22 L (test code = 761) HEMOGLOBIN (BEAKER) (test code = 7.3 GM/DL 11.2-15.7 L 410) HEMATOCRIT (BEAKER) (test code = 20.6 % 34.1-44.9 L 411) MEAN CORPUSCULAR VOLUME (BEAKER) 93.6 fL 79.4-94.8 (test code = 753) MEAN CORPUSCULAR HEMOGLOBIN 33.2 pg 25.6-32.2 H (BEAKER) (test code = 751) MEAN CORPUSCULAR HEMOGLOBIN CONC 35.4 GM/DL 32.2-35.5 (BEAKER) (test code = 752) RED CELL DISTRIBUTION WIDTH 21.6 % 11.7-14.4 H (BEAKER) (test code = 412) PLATELET COUNT (BEAKER) (test 561 K/CU MM 150-450 H code = 756) MEAN PLATELET VOLUME (BEAKER) 9.2 fL 9.4-12.3 L (test code = 754) NUCLEATED RED BLOOD CELLS 3 /100 WBC 0-0 H (BEAKER) (test code = 413) BASIC METABOLIC [id number] 03:43:56 Test Item Value Reference Range Interpretation Comments SODIUM (BEAKER) 135 meq/L 136-145 L (test code = 381) POTASSIUM 4.5 meq/L 3.5-5.1 (BEAKER) (test code = 379) CHLORIDE (BEAKER) 101 meq/L 98-107 (test code = 382) CO2 (BEAKER) 26 meq/L 22-29 (test code = 355) BLOOD UREA 15 mg/dL 7-21 NITROGEN (BEAKER) (test code = 354) CREATININE 0.69 mg/dL 0.57-1.25 (BEAKER) (test code = 358) GLUCOSE RANDOM 102 mg/dL 70-105 (BEAKER) (test code = 652) CALCIUM (BEAKER) 9.2 mg/dL 8.4-10.2 (test code = 697) EGFR (BEAKER) 120 Interpretatio n of eGFR (test code = mL/min/1.73 values Stage De scription 1092) sq m Result G1 Starr l or high >=90 G2 Mildly decreased 60-89 G3a Mildl y to moderately 45-5 9 G3b Moderately to s everely 30-44 G4 Severl y decreased 15-29 G5 Kidney failure <15Reported eGF R is based on the CKD-EPI 2020 equation that d oes not use a race coefficientEsti mated GFR is not as accur ate as Creatinine Joy shani in predicting glom erular filtration rate . Estimated GFR is not appl icable for dialysis patien ts Lounge Car Attendant ID - PIAYA LSpecimen slightly icteric(CELLAVISION MANUAL DIFF) 2021-12-31 11:06:14 Test Item Value Reference Range Interpretation Comments NEUTROPHILS - REL 60 % (CELLAVISION)(BEAKER) (test code = 2816) LYMPHOCYTES - REL 27 % (CELLAVISION)(BEAKER) (test code = 2817) MONOCYTES - REL 11 % (CELLAVISION)(BEAKER) (test code = 2818) BANDS - REL (CELLAVISION)(BEAKER) 2 % 0-10 (test code = 2826) NEUTROPHILS - ABS 18.54 K/ul 1.56-6.13 H (CELLAVISION)(BEAKER) (test code = 2830) LYMPHOCYTES - ABS 8.34 K/ul 1.18-3.74 H (CELLAVISION)(BEAKER) (test code = 2831) MONOCYTES - ABS 3.40 K/uL 0.24-0.36 H (CELLAVISION)(BEAKER) (test code = 2832) BANDS - ABS (CELLAVISION)(BEAKER) 0.62 K/uL 0.00-0.80 (test code = 2840) TOTAL COUNTED (BEAKER) (test code 100 = 1351) MANUAL NRBC PER 100 CELLS 11 /100 WBC 0-0 H (BEAKER) (test code = 1353) WBC MORPHOLOGY (BEAKER) (test Normal code = 487) PLT MORPHOLOGY (BEAKER) (test Normal code = 486) POLYCHROMATOPHILLIC RBCS(BEAKER) 2+ moderate (test code = 478) ANISOCYTOSIS (BEAKER) (test code 1+ few = 961) MICROCYTES (BEAKER) (test code = 1+ few 965) MACROCYTES (BEAKER) (test code = 1+ few 964) POIKILOCYTES (BEAKER) (test code 2+ moderate = 966) TARGET CELLS (BEAKER) (test code 1+ few = 480) SICKLE CELLS (BEAKER) (test code 2+ moderate = 767) ARTIFACT (CELLAVISION)(BEAKER) Present (test code = 3432) PLATELET CONCENTRATION Increased (CELLAVISION)(BEAKER) (test code = 3438) Lounge Car Attendant ID - [id number] ID - Martine OverholtUser comments: Slide comments:CBC W/PLT COUNT & AUTO [id number] 11:06:13 Test Item Value Reference Range Interpretation Comments WHITE BLOOD CELL COUNT (BEAKER) 30.9 K/ L 3.5-10.5 H (test code = 775) RED BLOOD CELL COUNT (BEAKER) 2.48 M/ L 3.93-5.22 L (test code = 761) HEMOGLOBIN (BEAKER) (test code = 8.2 GM/DL 11.2-15.7 L 410) HEMATOCRIT (BEAKER) (test code = 24.2 % 34.1-44.9 L 411) MEAN CORPUSCULAR VOLUME (BEAKER) 97.6 fL 79.4-94.8 H (test code = 753) MEAN CORPUSCULAR HEMOGLOBIN 33.1 pg 25.6-32.2 H (BEAKER) (test code = 751) MEAN CORPUSCULAR HEMOGLOBIN CONC 33.9 GM/DL 32.2-35.5 (BEAKER) (test code = 752) RED CELL DISTRIBUTION WIDTH 21.8 % 11.7-14.4 H (BEAKER) (test code = 412) PLATELET COUNT (BEAKER) (test 738 K/CU MM 150-450 H code = 756) MEAN PLATELET VOLUME (BEAKER) 9.6 fL 9.4-12.3 (test code = 754) NUCLEATED RED BLOOD CELLS 5 /100 WBC 0-0 H (BEAKER) (test code = 413) BASIC METABOLIC [id number] 10:23:17 Test Item Value Reference Range Interpretation Comments SODIUM (BEAKER) 137 meq/L 136-145 (test code = 381) POTASSIUM 4.0 meq/L 3.5-5.1 (BEAKER) (test code = 379) CHLORIDE (BEAKER) 100 meq/L 98-107 (test code = 382) CO2 (BEAKER) 29 meq/L 22-29 (test code = 355) BLOOD UREA 5 mg/dL 7-21 L NITROGEN (BEAKER) (test code = 354) CREATININE 0.58 mg/dL 0.57-1.25 (BEAKER) (test code = 358) GLUCOSE RANDOM 130 mg/dL 70-105 H (BEAKER) (test code = 652) CALCIUM (BEAKER) 9.3 mg/dL 8.4-10.2 (test code = 697) EGFR (BEAKER) 125 Interpretatio n of eGFR (test code = mL/min/1.73 values Stage De scription 1092) sq m Result G1 Starr l or high >=90 G2 Mildly decreased 60-89 G3a Mildl y to moderately 45-5 9 G3b Moderately to s everely 30-44 G4 Severl y decreased 15-29 G5 Kidney failure <15Reported eGF R is based on the CKD-EPI 2020 equation that d oes not use a race coefficientEsti mated GFR is not as accur ate as Creatinine Joy shani in predicting glom erular filtration rate . Estimated GFR is not appl icable for dialysis patien ts Lounge Car Attendant ID - MITCHCBC W/PLT COUNT & AUTO [id number] 03:54:02 Test Item Value Reference Range Interpretation Comments WHITE BLOOD CELL COUNT (BEAKER) 37.5 K/ L 3.5-10.5 H (test code = 775) RED BLOOD CELL COUNT (BEAKER) 2.49 M/ L 3.93-5.22 L (test code = 761) HEMOGLOBIN (BEAKER) (test code = 8.1 GM/DL 11.2-15.7 L 410) HEMATOCRIT (BEAKER) (test code = 23.6 % 34.1-44.9 L 411) MEAN CORPUSCULAR VOLUME (BEAKER) 94.8 fL 79.4-94.8 (test code = 753) MEAN CORPUSCULAR HEMOGLOBIN 32.5 pg 25.6-32.2 H (BEAKER) (test code = 751) MEAN CORPUSCULAR HEMOGLOBIN CONC 34.3 GM/DL 32.2-35.5 (BEAKER) (test code = 752) RED CELL DISTRIBUTION WIDTH 19.6 % 11.7-14.4 H (BEAKER) (test code = 412) PLATELET COUNT (BEAKER) (test 777 K/CU MM 150-450 H code = 756) MEAN PLATELET VOLUME (BEAKER) 9.8 fL 9.4-12.3 (test code = 754) NUCLEATED RED BLOOD CELLS 4 /100 WBC 0-0 H (BEAKER) (test code = 413) (CELLAVISION MANUAL DIFF)2021-12-30 03:54:02 Test Item Value Reference Range Interpretation Comments NEUTROPHILS - REL 52 % (CELLAVISION)(BEAKER) (test code = 2816) LYMPHOCYTES - REL 37 % (CELLAVISION)(BEAKER) (test code = 2817) MONOCYTES - REL 6 % (CELLAVISION)(BEAKER) (test code = 2818) EOSINOPHILS - REL 2 % (CELLAVISION)(BEAKER) (test code = 2819) MYELOCYTES - REL 1 % 0-0 H (CELLAVISION)(BEAKER) (test code = 2822) BANDS - REL (CELLAVISION)(BEAKER) 2 % 0-10 (test code = 2826) NEUTROPHILS - ABS 19.50 K/ul 1.56-6.13 H (CELLAVISION)(BEAKER) (test code = 2830) LYMPHOCYTES - ABS 13.88 K/ul 1.18-3.74 H (CELLAVISION)(BEAKER) (test code = 2831) MONOCYTES - ABS 2.25 K/uL 0.24-0.36 H (CELLAVISION)(BEAKER) (test code = 2832) EOSINOPHILS - ABS 0.75 K/uL 0.04-0.36 H (CELLAVISION)(BEAKER) (test code = 2834) MYELOCYTES-ABS 0.38 K/uL 0.00-0.00 H (CELLAVISION)(BEAKER) (test code = 2837) BANDS - ABS (CELLAVISION)(BEAKER) 0.75 K/uL 0.00-0.80 (test code = 2840) TOTAL COUNTED (BEAKER) (test code 100 = 1351) MANUAL NRBC PER 100 CELLS 4 /100 WBC 0-0 H (BEAKER) (test code = 1353) SMUDGE CELLS (BEAKER) (test code Present = 1371) LARGE PLT(BEAKER) (test code = Present 2156) VACUOLATED NEUTROPHILS (BEAKER) Present (test code = 483) POLYCHROMATOPHILLIC RBCS(BEAKER) 3+ many (test code = 478) ANISOCYTOSIS (BEAKER) (test code 1+ few = 961) MACROCYTES (BEAKER) (test code = 1+ few 964) POIKILOCYTES (BEAKER) (test code 1+ few = 966) TARGET CELLS (BEAKER) (test code 3+ many = 480) SCHISTOCYTES (BEAKER) (test code 1+ few = 765) SICKLE CELLS (BEAKER) (test code 1+ few = 767) ELLIPTOCYTES (BEAKER) (test code 3+ many = 962) OVALOCYTES (BEAKER) (test code = 2+ moderate 477) TEAR DROP CELLS (BEAKER) (test 1+ few code = 481) STOMATOCYTES (BEAKER) (test code 2+ moderate = 479) MARISA CELLS (BEAKER) (test code = 1+ few 474) BURT-JOLLY BODIES (BEAKER) 3+ many (test code = 475) BASOPHILIC STIPPLING (BEAKER) Present (test code = 473) ARTIFACT (CELLAVISION)(BEAKER) Present (test code = 3432) PLATELET CONCENTRATION Increased (CELLAVISION)(BEAKER) (test code = 3438) Lounge Car Attendant ID - Cornelius Santos comments: Slide comments:BASIC METABOLIC PANEL 2021-12-30 03:27:46 Test Item Value Reference Range Interpretation Comments SODIUM (BEAKER) 138 meq/L 136-145 (test code = 381) POTASSIUM 4.2 meq/L 3.5-5.1 (BEAKER) (test code = 379) CHLORIDE (BEAKER) 101 meq/L 98-107 (test code = 382) CO2 (BEAKER) 26 meq/L 22-29 (test code = 355) BLOOD UREA 6 mg/dL 7-21 L NITROGEN (BEAKER) (test code = 354) CREATININE 0.57 mg/dL 0.57-1.25 (BEAKER) (test code = 358) GLUCOSE RANDOM 98 mg/dL 70-105 (BEAKER) (test code = 652) CALCIUM (BEAKER) 9.6 mg/dL 8.4-10.2 (test code = 697) EGFR (BEAKER) 125 Interpretatio n of eGFR (test code = mL/min/1.73 values Stage De scription 1092) sq m Result G1 Starr l or high >=90 G2 Mildly decreased 60-89 G3a Mildl y to moderately 45-5 9 G3b Moderately to s everely 30-44 G4 Severl y decreased 15-29 G5 Kidney failure <15Reported eGF R is based on the CKD-EPI 2020 equation that d oes not use a race coefficientEsti mated GFR is not as accur ate as Creatinine Joy shani in predicting glom erular filtration rate . Estimated GFR is not appl icable for dialysis patien ts Lounge Car Attendant ID - PIETER [id number] 03:27:46 Test Item Value Reference Range Interpretation Comments MAGNESIUM (BEAKER) (test code = 1.5 mg/dL 1.6-2.6 L 627) Lounge Car Attendant ID - PIETER MHEPATIC FUNCTION [id number] 03:27:46 Test Item Value Reference Range Interpretation Comments TOTAL PROTEIN (BEAKER) (test code = 7.5 gm/dL 6.0-8.3 770) ALBUMIN (BEAKER) (test code = 1145) 4.1 g/dL 3.5-5.0 BILIRUBIN TOTAL (BEAKER) (test code 2.1 mg/dL 0.2-1.2 H = 377) BILIRUBIN DIRECT (BEAKER) (test 0.7 mg/dL 0.1-0.5 H code = 706) ALKALINE PHOSPHATASE (BEAKER) (test 94 U/L 40-150 code = 346) AST (SGOT) (BEAKER) (test code = 32 U/L 5-34 353) ALT (SGPT) (BEAKER) (test code = 50 U/L 6-55 347) Lounge Car Attendant ID - PIETER MSARS-COV2/RT-PCR ([facility])2021-12-29 20:53:09 Test Item Value Reference Range Interpretation Comments SARS-COV2/RT-PCR (test Negative Not Detected, Negative, code = 7378071) See external report for linked test SARS-COV-2 PERFORMING LAB [facility] (test code = 7696509) Negative result for this test determines that SARS-CoV-2 RNA was not present in the specimen above the Limit of Detection (LOD). However, Negative results do not preclude SARS-CoV-2 infection and should not be used as the sole basis for treatment or patient management decisions. Negative results must be combined with clinical observations, patient history, and epidemiological information. A false negative result may occur if a specimen is improperly collected, transported or handled. A false negative result should be considered if patient's recent exposures or clinical presentation indicate that COVID-19 (SARS-CoV-2) is likely and diagnostic tests for other causes of illness are negative. Re-testing should be considered in cases of suspected false negatives.The limit of detection for this assay is 800 copies/mL.This SARS CoV-2 test is a real-time RT-PCR test intended for the qualitative detection of nucleic acid from SARS-CoV-2 in a nasopharyngeal swab specimen collected from individuals suspected of COVID-19 by their healthcare provider.This test has not been Food and Drug Administration (FDA) cleared or approved. This is a modified version of an approved Emergency Use Authorization (EUA) and is in the process of review by the FDA. Once authorized by the FDA, the issued EUA will be effective until the declaration that circumstances exist justifying the authorization of the emergency use ofin vitro diagnostic tests for detection and/or diagnosis of COVID-19 is terminated under Section 564(b)(2) of the Act or the EUA is revoked under Section 564(g) of the Act.Fact Sheet for Healthcare Prov iders:https://www.[employer]/sites/default/files/product/documents/Fact_Sheet_HC _Pqarxwsex_Nuxh_MUGM-PoQ-9.pdfFact Sheet for Healthcare Patients:https://www.[employer]/sites/default/files/product/docume nts/Tugq_Pazcp_Fbddlgsa_Kypr_UVHS-GfY-0.pdfPerforming Laboratory:[facility] [place] [address](CELLAVISION MANUAL DIFF) 2021-12-29 07:16:35 Test Item Value Reference Range Interpretation Comments NEUTROPHILS - REL 52 % (CELLAVISION)(BEAKER) (test code = 2816) LYMPHOCYTES - REL 26 % (CELLAVISION)(BEAKER) (test code = 2817) MONOCYTES - REL 17 % (CELLAVISION)(BEAKER) (test code = 2818) BASOPHILS - REL 1 % (CELLAVISION)(BEAKER) (test code = 2820) MYELOCYTES - REL 4 % 0-0 H (CELLAVISION)(BEAKER) (test code = 2822) NEUTROPHILS - ABS 20.49 K/ul 1.56-6.13 H (CELLAVISION)(BEAKER) (test code = 2830) LYMPHOCYTES - ABS 10.24 K/ul 1.18-3.74 H (CELLAVISION)(BEAKER) (test code = 2831) MONOCYTES - ABS 6.70 K/uL 0.24-0.36 H (CELLAVISION)(BEAKER) (test code = 2832) BASOPHILS - ABS 0.39 K/uL 0.01-0.08 H (CELLAVISION)(BEAKER) (test code = 2835) MYELOCYTES-ABS 1.58 K/uL 0.00-0.00 H (CELLAVISION)(BEAKER) (test code = 2837) TOTAL COUNTED (BEAKER) (test code 100 = 1351) WBC MORPHOLOGY (BEAKER) (test Normal code = 487) CLUMPED PLATELETS (BEAKER) (test Present code = 436) GIANT PLATELETS (BEAKER) (test Present code = 313) POLYCHROMATOPHILLIC RBCS(BEAKER) 3+ many (test code = 478) ANISOCYTOSIS (BEAKER) (test code 1+ few = 961) MACROCYTES (BEAKER) (test code = 1+ few 964) POIKILOCYTES (BEAKER) (test code 2+ moderate = 966) SICKLE CELLS (BEAKER) (test code 1+ few = 767) ELLIPTOCYTES (BEAKER) (test code 1+ few = 962) ARTIFACT (CELLAVISION)(BEAKER) Present (test code = 3432) PLATELET CONCENTRATION Increased (CELLAVISION)(BEAKER) (test code = 3438) Lounge Car Attendant ID - emanuel Duke comments: Slide comments:CBC W/PLT COUNT & AUTO [id number] 07:16:31 Test Item Value Reference Range Interpretation Comments WHITE BLOOD CELL COUNT (BEAKER) 39.4 K/ L 3.5-10.5 H (test code = 775) RED BLOOD CELL COUNT (BEAKER) 2.44 M/ L 3.93-5.22 L (test code = 761) HEMOGLOBIN (BEAKER) (test code = 7.8 GM/DL 11.2-15.7 L 410) HEMATOCRIT (BEAKER) (test code = 22.5 % 34.1-44.9 L 411) MEAN CORPUSCULAR VOLUME (BEAKER) 92.2 fL 79.4-94.8 (test code = 753) MEAN CORPUSCULAR HEMOGLOBIN 32.0 pg 25.6-32.2 (BEAKER) (test code = 751) MEAN CORPUSCULAR HEMOGLOBIN CONC 34.7 GM/DL 32.2-35.5 (BEAKER) (test code = 752) RED CELL DISTRIBUTION WIDTH 18.6 % 11.7-14.4 H (BEAKER) (test code = 412) PLATELET COUNT (BEAKER) (test 697 K/CU MM 150-450 H code = 756) MEAN PLATELET VOLUME (BEAKER) 10.5 fL 9.4-12.3 (test code = 754) NUCLEATED RED BLOOD CELLS 1 /100 WBC 0-0 H (BEAKER) (test code = 413) (CELLAVISION MANUAL DIFF)2021-12-29 07:16:31 Test Item Value Reference Range Interpretation Comments NEUTROPHILS - REL 65 % (CELLAVISION)(BEAKER) (test code = 2816) LYMPHOCYTES - REL 26 % (CELLAVISION)(BEAKER) (test code = 2817) MONOCYTES - REL 7 % (CELLAVISION)(BEAKER) (test code = 2818) METAMYELOCYTES - REL 2 % 0-0 H (CELLAVISION)(BEAKER) (test code = 2821) NEUTROPHILS - ABS 24.96 K/ul 1.56-6.13 H (CELLAVISION)(BEAKER) (test code = 2830) LYMPHOCYTES - ABS 9.98 K/ul 1.18-3.74 H (CELLAVISION)(BEAKER) (test code = 2831) MONOCYTES - ABS 2.69 K/uL 0.24-0.36 H (CELLAVISION)(BEAKER) (test code = 2832) METAMYELOCYTES - ABS 0.77 K/uL 0.00-0.00 H (CELLAVISION)(BEAKER) (test code = 2836) TOTAL COUNTED (BEAKER) (test code 100 = 1351) MANUAL NRBC PER 100 CELLS (BEAKER) 1 /100 WBC 0-0 H (test code = 1353) WBC MORPHOLOGY (BEAKER) (test code Normal = 487) GIANT PLATELETS (BEAKER) (test Present code = 313) POLYCHROMATOPHILLIC RBCS(BEAKER) 3+ many (test code = 478) ANISOCYTOSIS (BEAKER) (test code = 1+ few 961) MACROCYTES (BEAKER) (test code = 1+ few 964) ARTIFACT (CELLAVISION)(BEAKER) Present (test code = 3432) PLATELET CONCENTRATION Increased (CELLAVISION)(BEAKER) (test code = 3438) Lounge Car Attendant ID - emanuel Duke comments: Slide comments:CBC W/PLT COUNT & AUTO [id number] 07:16:30 Test Item Value Reference Range Interpretation Comments WHITE BLOOD CELL COUNT (BEAKER) 38.4 K/ L 3.5-10.5 H (test code = 775) RED BLOOD CELL COUNT (BEAKER) 2.39 M/ L 3.93-5.22 L (test code = 761) HEMOGLOBIN (BEAKER) (test code = 7.8 GM/DL 11.2-15.7 L 410) HEMATOCRIT (BEAKER) (test code = 22.8 % 34.1-44.9 L 411) MEAN CORPUSCULAR VOLUME (BEAKER) 95.4 fL 79.4-94.8 H (test code = 753) MEAN CORPUSCULAR HEMOGLOBIN 32.6 pg 25.6-32.2 H (BEAKER) (test code = 751) MEAN CORPUSCULAR HEMOGLOBIN CONC 34.2 GM/DL 32.2-35.5 (BEAKER) (test code = 752) RED CELL DISTRIBUTION WIDTH 18.6 % 11.7-14.4 H (BEAKER) (test code = 412) PLATELET COUNT (BEAKER) (test 624 K/CU MM 150-450 H code = 756) MEAN PLATELET VOLUME (BEAKER) 10.0 fL 9.4-12.3 (test code = 754) NUCLEATED RED BLOOD CELLS 1 /100 WBC 0-0 H (BEAKER) (test code = 413) [id number] 06:49:49 Test Item Value Reference Range Interpretation Comments MAGNESIUM (BEAKER) (test code = 1.4 mg/dL 1.6-2.6 L 627) Lounge Car Attendant ID - PIETER EPATIC FUNCTION [id number] 06:49:49 Test Item Value Reference Range Interpretation Comments TOTAL PROTEIN (BEAKER) (test code = 7.2 gm/dL 6.0-8.3 770) ALBUMIN (BEAKER) (test code = 1145) 3.9 g/dL 3.5-5.0 BILIRUBIN TOTAL (BEAKER) (test code 2.0 mg/dL 0.2-1.2 H = 377) BILIRUBIN DIRECT (BEAKER) (test 0.7 mg/dL 0.1-0.5 H code = 706) ALKALINE PHOSPHATASE (BEAKER) (test 96 U/L 40-150 code = 346) AST (SGOT) (BEAKER) (test code = 20 U/L 5-34 353) ALT (SGPT) (BEAKER) (test code = 43 U/L 6-55 347) Lounge Car Attendant ID - PIETER MBASIC METABOLIC [id number] 06:49:48 Test Item Value Reference Range Interpretation Comments SODIUM (BEAKER) 139 meq/L 136-145 (test code = 381) POTASSIUM 3.7 meq/L 3.5-5.1 (BEAKER) (test code = 379) CHLORIDE (BEAKER) 103 meq/L 98-107 (test code = 382) CO2 (BEAKER) 29 meq/L 22-29 (test code = 355) BLOOD UREA 9 mg/dL 7-21 NITROGEN (BEAKER) (test code = 354) CREATININE 0.62 mg/dL 0.57-1.25 (BEAKER) (test code = 358) GLUCOSE RANDOM 98 mg/dL 70-105 (BEAKER) (test code = 652) CALCIUM (BEAKER) 9.0 mg/dL 8.4-10.2 (test code = 697) EGFR (BEAKER) 123 Interpretatio n of eGFR (test code = mL/min/1.73 values Stage De scription 1092) sq m Result G1 Starr l or high >=90 G2 Mildly decreased 60-89 G3a Mildl y to moderately 45-5 9 G3b Moderately to s everely 30-44 G4 Severl y decreased 15-29 G5 Kidney failure <15Reported eGF R is based on the CKD-EPI 2020 equation that d oes not use a race coefficientEsti mated GFR is not as accur ate as Creatinine Joy shani in predicting glom erular filtration rate . Estimated GFR is not appl icable for dialysis patien ts Lounge Car Attendant ID Deana STAPLETON MPREGNANCY SCREEN, [id number] 03:16:32 Test Item Value Reference Range Interpretation Comments TEST URINE (BEAKER) (test Negative Negative code = 583) TSH/FREE T4 IF [id number] 00:37:03 Test Item Value Reference Range Interpretation Comments THYROID STIMULATING HORMONE 1.144 uIU/mL 0.350-4.940 (BEAKER) (test code = 772) Lounge Car Attendant ID Deana HARRY [id number] 00:23:22 Test Item Value Reference Range Interpretation Comments PHOSPHORUS (BEAKER) (test code = 3.6 mg/dL 2.3-4.7 604) Lounge Car Attendant ID - PIERO LHEPATIC FUNCTION [id number] 00:23:22 Test Item Value Reference Range Interpretation Comments TOTAL PROTEIN (BEAKER) (test code = 7.6 gm/dL 6.0-8.3 770) ALBUMIN (BEAKER) (test code = 1145) 4.1 g/dL 3.5-5.0 BILIRUBIN TOTAL (BEAKER) (test code 1.9 mg/dL 0.2-1.2 H = 377) BILIRUBIN DIRECT (BEAKER) (test 0.7 mg/dL 0.1-0.5 H code = 706) ALKALINE PHOSPHATASE (BEAKER) (test 100 U/L 40-150 code = 346) AST (SGOT) (BEAKER) (test code = 19 U/L 5-34 353) ALT (SGPT) (BEAKER) (test code = 45 U/L 6-55 347) Lounge Car Attendant ID Deana BENITEZASIC METABOLIC [id number] 00:23:21 Test Item Value Reference Range Interpretation Comments SODIUM (BEAKER) 136 meq/L 136-145 (test code = 381) POTASSIUM 4.2 meq/L 3.5-5.1 (BEAKER) (test code = 379) CHLORIDE (BEAKER) 103 meq/L 98-107 (test code = 382) CO2 (BEAKER) 25 meq/L 22-29 (test code = 355) BLOOD UREA 10 mg/dL 7-21 NITROGEN (BEAKER) (test code = 354) CREATININE 0.61 mg/dL 0.57-1.25 (BEAKER) (test code = 358) GLUCOSE RANDOM 91 mg/dL 70-105 (BEAKER) (test code = 652) CALCIUM (BEAKER) 9.4 mg/dL 8.4-10.2 (test code = 697) EGFR (BEAKER) 123 Interpretatio n of eGFR (test code = mL/min/1.73 values Stage De scription 1092) sq m Result G1 Starr l or high >=90 G2 Mildly decreased 60-89 G3a Mildl y to moderately 45-5 9 G3b Moderately to s everely 30-44 G4 Severl y decreased 15-29 G5 Kidney failure <15Reported eGF R is based on the CKD-EPI 2020 equation that d oes not use a race coefficientEsti mated GFR is not as accur ate as Creatinine Joy mcleod in predicting glom erular filtration rate . Estimated GFR is not appl icable for dialysis patien ts Lounge Car Attendant ID - PIERO [id number] 00:23:21 Test Item Value Reference Range Interpretation Comments MAGNESIUM (BEAKER) (test code = 1.7 mg/dL 1.6-2.6 627) Lounge Car Attendant ID Deana HARRY LB-TYPE NATRIURETIC FACTOR (BNP)2021-12-29 00:22:19 Test Item Value Reference Range Interpretation Comments B-TYPE NATRIURETIC PEPTIDE (BEAKER) 12 pg/mL 0-100 (test code = 700) Lounge Car Attendant ID Deana HARRY LPROTHROMBIN [id number] 00:13:42 Test Item Value Reference Range Interpretation Comments PROTIME (AILEEN) 14.2 seconds 11.9-14.2 (test code = 759) INR (AILEEN) (test 1.13 See_Comment [Automat ed message] code = 370) The system [employer] generated this result transmitted ref erence range: <=5.90. The reference range was not used to int erpret this result as normal/abnormal . RECOMMENDED COUMADIN/WARFARIN INR THERAPY RANGESSTANDARD DOSE: 2.0 - 3.0 Includes: PROPHYLAXIS for venous thrombosis, systemic embolization; TREATMENT for venous thrombosis and/or pulmonary embolus.HIGH RISK: Target INR is 2.5-3.5 for patients with mechanical heart valves.RAD, CHEST, 1 VIEW, NON [id number] 23:56:00Reason for exam:->dyspnea; sickle cell crisisIs the patient ?->UnknownShould this be performed at the bedside?->Yes [facility] 1990 Sex: FFINAL REPORT History: dyspnea; sickle cell crisis. Comparison: 08/02/2018 Findings:A single view of the chest is submitted. The cardiac silhouette is at the upper limits of normal forsize. There is mild central vascular prominence and perihilar interstitial coarsening suggesting mild interstitial edema. There is no focal consolidation, pneumothorax, large pleural effusion or acute bony abnormality. A left IJ chest port remains in place. Signed: Marcy Eaton MDReport Verified Date/Time: 12/28/2021 23:56:16 HEPATITIS C [id number] 11:45:17 Test Item Value Reference Range Interpretation Comments HEPATITIS C ANTIBODY (BEAKER) Nonreactive Nonreactive (test code = 367) Lounge Car Attendant ID - DBHEPATITIS A ANTIBODY, [id number] 11:45:17 Test Item Value Reference Range Interpretation Comments HEPATITIS A IGM ANTIBODY (BEAKER) Nonreactive Nonreactive (test code = 498) Lounge Car Attendant ID - DBHEPATITIS B CORE ANTIBODY, [id number] 11:45:17 Test Item Value Reference Range Interpretation Comments HEPATITIS B CORE TOTAL ANTIBODY Nonreactive Nonreactive (BEAKER) (test code = 497) Lounge Car Attendant ID - DBHEPATITIS B SURFACE [id number] 11:45:12 Test Item Value Reference Range Interpretation Comments HEPATITIS B SURFACE ANTIGEN (2) Nonreactive Nonreactive (BEAKER) (test code = 2585) Specimen is considered negative for HBsAg.HEPATITIS PANEL, [id number] 19:51:14 Test Item Value Reference Range Interpretation Comments HEPATITIS A IGM ANTIBODY (BEAKER) Nonreactive Nonreactive (test code = 498) HEPATITIS B CORE IGM ANTIBODY Nonreactive Nonreactive (BEAKER) (test code = 645) HEPATITIS C ANTIBODY (BEAKER) Nonreactive Nonreactive (test code = 367) HEPATITIS B SURFACE ANTIGEN (2) Nonreactive Nonreactive (BEAKER) (test code = 2585) Lounge Car Attendant ID - DBHEPATITIS A ANTIBODY, [id number] 19:51:14 Test Item Value Reference Range Interpretation Comments HEPATITIS A IGM ANTIBODY (BEAKER) Nonreactive Nonreactive (test code = 498) HEPATITIS B CORE ANTIBODY, [id number] 19:51:14 Test Item Value Reference Range Interpretation Comments HEPATITIS B CORE IGM ANTIBODY Nonreactive Nonreactive (BEAKER) (test code = 645) HEPATITIS B SURFACE [id number] 19:51:14 Test Item Value Reference Range Interpretation Comments HEPATITIS B SURFACE ANTIGEN (2) Nonreactive Nonreactive (BEAKER) (test code = 2585) Specimen is considered negative for HBsAg.HEPATITIS C [id number] 19:51:14 Test Item Value Reference Range Interpretation Comments HEPATITIS C ANTIBODY (BEAKER) Nonreactive Nonreactive (test code = 367) SARS-COV2/RT-PCR ([facility])2019-11-14 17:47:00 Test Item Value Reference Range Interpretation Comments SARS-COV2/RT-PCR (test code = Negative Not Detected, Negative [id number]) SARS-COV-2 PERFORMING LAB [facility] (test code = 0802049) Negative results do not preclude SARS-CoV-2 infection [...] of the Act.Fact Sheet for Healthcare Pro viders:https://www.[employer]/Documents/Xpert%20Xpress%20SARS%20CoV-2/Fact%20Sh eets/3023802%57TQFR-EWJ-4%20HEALTHCARE%20PROVIDERS%20FACT%20SHEET.pdfFact Sheet for Healthcare Patients:https://www.[employer]/Documents/Xpert%20Xpress%20SARS%20CoV-2/Fact%20Sheets/3023801%20SARS-COV -2%20PATIENT%20FACT%20SHEET.pdfPerforming Laboratory:[facility], [place] [address]IPT W/PLT COUNT & AUTO DIFFERENTIAL 2018-08-10 08:25:00 [...] 3438) Received comment: User comments: Slide comments:RETICULOCYTE [id number] 08:06:00 Test Item Value Reference Range Interpretation Comments RETICULOCYTE COUNT PCT (BEAKER) (test 25.0 % 0.5-1.7 H code = 575) CBC W/PLT COUNT & AUTO [id number] 09:27:00 Test Item Value Reference Range Interpretation [...] 3438) Received comment: User comments: Slide comments:RETICULOCYTE [id number] 05:01:00 Test Item Value Reference Range Interpretation Comments RETICULOCYTE COUNT PCT (BEAKER) (test 21.6 % 0.5-1.7 H code = 575) CBC W/PLT COUNT & AUTO [id number] 15:17:00 Test Item Value Reference Range Interpretation [...] H (BEAKER) (test code = 413) RETICULOCYTE [id number] 08:44:00 Test Item Value Reference Range Interpretation Comments RETICULOCYTE COUNT PCT (BEAKER) (test 23.8 % 0.5-1.7 H code = 575) BLOOD [id number] 14:01:00 Test Item Value Reference Range Interpretation Comments CULTURE (BEAKER) (test No growth in 5 days code = 1095) BLOOD [id number] 12:01:00 Test Item Value Reference Range Interpretation Comments CULTURE (BEAKER) (test No growth in 5 days code = 1095) CBC W/PLT COUNT & AUTO [id number] 11:38:00 Test Item Value Reference Range Interpretation [...] 3438) Received comment: User comments: Slide comments:RETICULOCYTE [id number] 07:44:00 Test Item Value Reference Range Interpretation Comments RETICULOCYTE COUNT PCT (BEAKER) (test 27.0 % 0.5-1.7 H code = 575) RETICULOCYTE [id number] 07:19:00 Test Item Value Reference Range Interpretation Comments RETICULOCYTE COUNT PCT (BEAKER) (test 22.7 % 0.5-1.7 H code = 575) CBC W/PLT COUNT & AUTO [id number] 12:07:00 Test Item Value Reference Range Interpretation [...] 3438) Received comment: User comments: Slide comments:RETICULOCYTE [id number] 06:14:00 Test Item Value Reference Range Interpretation Comments RETICULOCYTE COUNT PCT (BEAKER) (test 21.9 % 0.5-1.7 H code = 575) [id number] 06:02:00 Test Item Value Reference Range Interpretation Comments PHOSPHORUS (BEAKER) (test code = 3.8 mg/dL 2.3-4.7 604) [id number] 06:02:00 Test Item Value Reference Range Interpretation Comments MAGNESIUM (BEAKER) (test code = 1.8 mg/dL 1.6-2.6 627) BASIC METABOLIC [id number] 06:02:00 Test Item Value Reference Range Interpretation [...] Specimen moderately ictericCBC W/PLT COUNT & AUTO [id number] 09:09:00 Test Item Value Reference Range Interpretation [...] = 3438) Received comment: User comments: Slide comments:[id number] 04:11:00 Test Item Value Reference Range Interpretation Comments PHOSPHORUS (BEAKER) (test code = 3.3 mg/dL 2.3-4.7 604) [id number] 04:11:00 Test Item Value Reference Range Interpretation Comments MAGNESIUM (BEAKER) (test code = 1.6 mg/dL 1.6-2.6 627) BASIC METABOLIC [id number] 04:11:00 Test Item Value Reference Range Interpretation [...] FOR DIALYSIS PATIEN TS. Specimen slightly ictericRETICULOCYTE [id number] 03:54:00 Test Item Value Reference Range Interpretation Comments RETICULOCYTE COUNT PCT (BEAKER) (test 20.4 % 0.5-1.7 H code = 575) CBC W/PLT COUNT & AUTO [id number] 18:30:00 Test Item Value Reference Range Interpretation [...] = 413) CBC W/PLT COUNT & AUTO [id number] 10:51:00 Test Item Value Reference Range Interpretation [...] 3438) Received comment: User comments: Slide comments:RETICULOCYTE [id number] 10:08:00 Test Item Value Reference Range Interpretation Comments RETICULOCYTE COUNT PCT (BEAKER) (test 14.4 % 0.5-1.7 H code = 575) CBC W/PLT COUNT & AUTO [id number] 09:30:00 Test Item Value Reference Range Interpretation [...] = 3438) Received comment: User comments: Slide comments:[id number] 03:32:00 Test Item Value Reference Range Interpretation Comments PHOSPHORUS (BEAKER) (test code = 3.5 mg/dL 2.3-4.7 604) [id number] 03:32:00 Test Item Value Reference Range Interpretation Comments MAGNESIUM (BEAKER) (test code = 1.8 mg/dL 1.6-2.6 627) BASIC METABOLIC [id number] 03:32:00 Test Item Value Reference Range Interpretation [...] ictericCT, CHEST WITH IV CONTRAST- PE TEST [id number] 14:01:00FINAL REPORT CT scan of the chest. [...] field, significantly smaller than on previous. Signed: Sachin Elaine MDReport Verified Date/Time: 08/02/2018 14:01:29 Reading Location: [address] Consult Reading Room URINALYSIS W/ REFLEX [...] 516) SOURCE(BEAKER) (test code = 2795) SCREEN, [id number] 11:15:00 Test Item Value Reference Range Interpretation Comments TEST URINE (BEAKER) (test Negative code = 583) RETICULOCYTE [id number] 04:43:00 Test Item Value Reference Range Interpretation Comments RETICULOCYTE COUNT PCT (BEAKER) (test 13.2 % 0.5-1.7 H code = 575) RAD, CHEST, 2 [id number] 03:54:00Reason for exam:->SICKLE CELL PAIN CRISISIs the [...] chest port is in place. Signed: Marcy Eaton MDReport Verified Date/Time: 08/02/2018 03:54:52 Reading Location: [address] Reading Room CBC W/PLT COUNT & AUTO [id number] 03:04:00 Test Item Value Reference Range Interpretation [...] (BEAKER) (test code = 417) COMPREHENSIVE METABOLIC [id number] 02:42:00 Test Item Value Reference Range Interpretation [...]
[2022-01-03] MEDS ORDERED: ALBUTEROL 2.5 MG/3 ML NEB SOL NEB PRN (19:14)
[2022-01-03] MEDS: HYDROMORPHONE HCL 1 MG/ML INJ IV PRN (19:57)
[2022-01-03] MEDS: DIPHENHYDRAMINE 50 MG/ML VIAL IV PRN (19:58)
[2022-01-03] MEDS: PROMETHAZINE INJ 25 MG/ML AMP IV PRN (19:59)
[2022-01-03] MEDS: Ringers Lactate 1,000 ML IV SCH (20:00)
[2022-01-03] MEDS: APIXABAN 2.5 MG TABLET PO SCH (20:00)
--- NOTE | 2022-01-03 23:54 | P.HP ---
Certification for Inpatient Patient admitted to: Inpatient With expected LOS: >2 Midnights Patient will require the following post-hospital care: None Practitioner: I am a practitioner with admitting privileges, knowledge of patient current condition, hospital course, and medical plan of care. Services: Services provided to patient in accordance with Admission requirements found in Title 42 Section 412.3 of the Code of Federal Regulations Patient History Date of Service: 01/04/22 Reason for admission: Sickle Cell Crisis History of Present Illness: Patient is a 31 year old female with sickle cell anemia and a history of pulmonary embolism who was transferred to this facility from [facility]. Patient was initially admitted to this facility 3 weeks ago for treatment of sickle cell crisis, developed bilateral lower rib pain and had imaging concerning for bilateral basilar lung infiltrates. Given her history of acute chest syndrome, she was transferred to [facility] for a formal hematology consultation 1 week ago. Hematology at [facility] evaluated her and deemed her stable for transfer back to this facility. She returns today with continued sickle cell pain all over. Allergies ondansetron HCl [From Zofran] Allergy (Mild, Verified 07/09/21 05:43) Nausea/Vomiting fentanyl [From Sublimaze (PF)] Allergy (Verified 12/20/21 02:30) Anaphylaxis morphine Allergy (Verified 07/09/21 05:43) Nausea/Vomiting Sulfa (Sulfonamide Antibiotics) Allergy (Verified 07/09/21 05:43) Nausea/Vomiting Home Medications: Folic Acid [Folic Acid*] 1 mg PO DAILY 08/01/12 Cholecalciferol (Vitamin D3) [Vitamin D 1000 Iu Tab*] 1,000 unit PO EVERY 7TH DAY 09/30/20 Apixaban [Eliquis *] 2.5 mg PO BID #60 tablet 12/21/20 Hydromorphone HCl [Dilaudid] 8 mg PO TID PRN 30 Days #60 tablet 10/25/21 Polyethyl Gly 3350 [Glycolax*] 17 gm PO DAILYPRN PRN #30 udbot 10/26/21 Promethazine Tab [Phenergan*] 25 mg PO Q4H PRN #30 tab 10/26/21 Ascorbic Acid [Vitamin C*] 500 mg PO DAILY 12/06/21 Voxelotor [Oxbryta] 500 mg PO DAILY 12/14/21 - Past Medical/Surgical History Diabetic: No -: Sickle Cell Anemia -: Pulmonary Embolism -: blood clot left lung -: port-a-cath placement Psychosocial/ Personal History: Patient lives at home with her girlfriend - Family History Mother -: Other (see notes) Notes: sickle cell trait Father -: Other (see notes) Notes: sickle cell trait - Social History Smoking Status: Never smoker Alcohol use: No CD- Drugs: Yes Caffeine use: No Place of Residence: Home Review of Systems Cardiovascular: Chest Pain Gastrointestinal: Abdominal Pain Musculoskeletal: Back Pain, Leg Pain Physical Examination - Vital Signs Temperature: 98 F Blood Pressure: 126/66 Pulse: 108 Respirations: 16 Pulse Ox (%): 91 - Physical Exam General: Alert, In no apparent distress HEENT: Atraumatic, PERRLA, EOMI, Sclerae nonicteric Neck: Supple, 2+ carotid pulse no bruit, No LAD, Without JVD or thyroid abnormality Respiratory: Clear to auscultation bilaterally, Normal air movement Cardiovascular: Regular rate/rhythm, Normal S1 S2 Gastrointestinal: Normal bowel sounds, No tenderness Musculoskeletal: No tenderness Integumentary: No rashes Neurological: Normal speech, Normal strength at 5/5 x4 extr, Normal tone, Normal affect Assessment and Plan - Problems (Diagnosis) (1) Sickle cell pain crisis Current Visit: Yes Status: Acute (2) Anemia, sickle cell with crisis Current Visit: Yes Status: Acute (3) History of pulmonary embolism Current Visit: No Status: Chronic - Plan -Dilaudid, phenegran, and Benadryl q4h PRN pain -Supportive measures with supplemental oxygen and IV fluids -Daily labs with reticulocyte count. -Patient denies any fever, chills or other new ROS findings aside from acute generalized pain similar to her previous sickle cell crisis -Monitor and replete electrolytes per protocol -Reconcile and continue home medications -Eliquis for VTE ppx -Full code Discharge Plan: Home Plan to discharge in: Greater than 2 days - Advance Directives Does patient have a Living Will: No Does patient have a Durable POA for Healthcare: No - Code Status/Comfort Care Code Status Assessed: Yes (Full) Critical Care: No Time Spent Managing Pts Care (In Minutes): 50
[2022-01-04] MEDS: PROMETHAZINE INJ 25 MG/ML AMP IV PRN ×6 (00:03→20:53)
[2022-01-04] MEDS: DIPHENHYDRAMINE 50 MG/ML VIAL IV PRN ×6 (00:03→20:53)
[2022-01-04] MEDS: HYDROMORPHONE HCL 1 MG/ML INJ IV PRN ×6 (00:04→20:53)
[2022-01-04 00:40] VITALS: BMI 28.6
[2022-01-04] MEDS ORDERED: HYDROMORPHONE HCL 2 MG/ML inj IV ONE ×2 (01:38→15:00)
[2022-01-04] MEDS: Ringers Lactate 1,000 ML IV SCH ×2 (05:31→16:51)
[2022-01-04 06:16] LABS: Absolute Lymphocytes (CBC) 8.9 K/uL (0.7-4.9); Hematocrit 20.9 % (36.0-45.0); Lymphocytes % 34.2 % (15.3-44.8); MCV 97.5 fL (80-100); MPV 7.7 fL (7.6-11.3); RBC Red Blood Cell Count 2.15 M/uL (3.86-4.86)
[2022-01-04 06:19] LABS: Magnesium 1.9 mg/dL (1.8-2.4); Potassium 3.9 mmol/L (3.5-5.1)
[2022-01-04 07:30] LABS: Anisocytosis 2+; Blood Morphology Comment NOTED (NOT SEEN); Macrocytosis 1+; Platelet Estimate INCR; Polychromasia 3+; Target Cells FEW; White Blood Cell Scan OK (OK)
[2022-01-04] MEDS: APIXABAN 2.5 MG TABLET PO SCH ×2 (08:37→20:53)
[2022-01-04 10:48] LABS: Absolute Lymphocytes (CBC) 7.6 K/uL (0.7-4.9); MCV 97.2 fL (80-100); MPV 7.2 fL (7.6-11.3); RBC Red Blood Cell Count 2.06 M/uL (3.86-4.86)
--- NOTE | 2022-01-04 13:26 | P.PN ---
Subjective Date of Service: 01/04/22 Subjective: No new changes Review of Systems 10-point ROS is otherwise unremarkable Physical Examination - Vital Signs Temperature: 97.3 F Blood Pressure: 133/63 Pulse: 96 Respirations: 18 Pulse Ox (%): 94 - Physical Exam General: Alert, In no apparent distress, Oriented x3 HEENT: Atraumatic, PERRLA, EOMI Neck: Supple, JVD not distended Respiratory: Clear to auscultation bilaterally, Normal air movement Cardiovascular: Regular rate/rhythm, Normal S1 S2 Gastrointestinal: Normal bowel sounds, No tenderness Musculoskeletal: No tenderness Integumentary: No rashes Neurological: Normal speech, Normal tone, Normal affect Lymphatics: No axilla or inguinal lymphadenopathy - Studies Laboratory Data (last 24 hrs) 01/04/22 10:31: WBC 23.00 H*, Hgb 7.2 L, Hct 20.0 L*, Plt Count 591 H 01/04/22 05:42: Sodium 139, Potassium 3.9, BUN 9, Creatinine 0.49 L, Glucose 116 H, Magnesium 1.9 01/04/22 05:42: WBC 26.00 H*, Hgb 7.3 L, Hct 20.9 L*, Plt Count 621 H Medications List Reviewed: Yes Assessment & Plan - Problems (Diagnosis) (1) Sickle cell pain crisis Current Visit: Yes Status: Acute - Plan 1. Continue with pain control 2. Transfused 2 units of packed red blood cells 3. Taper off IV pain medicines and start oral pain medication 4. Anticipate discharge home in the morning on oral Dilaudid as prescribed. Discharge Plan: Home Plan to discharge in: 24 Hours - Advance Directives Does patient have a Living Will: No Does patient have a Durable POA for Healthcare: No - Code Status/Comfort Care Code Status Assessed: Yes Code Status: Full Code Critical Care: No Time Spent Managing PTS Care (In Minutes): 35
[2022-01-04] MEDS ORDERED: ALBUTEROL 2.5 MG/3 ML NEB SOL NEB PRN (14:00)
--- NOTE | 2022-01-04 18:16 | CON ---
History Of Present Illness: The patient is a 31-year-old female, who has a significant past medical history of sickle cell disease and history of pulmonary embolism, coming in to the hospital with recu rrent sickle cell crisis causing her to have pain in her legs and bibasilar lung infiltrates. The pa wm denies any other problems at this time. No fever, nausea, vomiting, diarrhea, or constipation. Able to eat her food without any problems. Past Medical History: As per HPI. Social History: Nonsmoker, nondrinker. Family History: Noncontributory. Medications: Albuterol, Levaquin, Benadryl, Dilaudid, Phenergan. Allergies: ZOFRAN, FENTANYL, MORPHINE, SULFA DRUGS. Review of Systems: A 10-point review was performed. Physical Examination: General: This is a 31-year-old female, lying in bed, not in any distress except pain, generalized ac hes and pains. Vital Signs: Temperature 97.3, pulse 90, respiration 18, blood pressure 133/63. HEENT: Unremarkable. Neck: Supple. Lungs: Basal crackles. Heart: S1, S2. Regular. Abdomen: Soft, nontender. Bowel sounds present. Extremity: No edema. Laboratory Data: Shows WBC 23,000, hemoglobin 7.2, platelets 591. Chemistry shows sodium 139, potas sium 3.9, chloride 104, bicarb 29, BUN 9, creatinine 0.4, glucose 116. Assessment And Plan: A 31-year-old female with leukocytosis, coming in with sickle cell crisis, most likely reactive. I agree with IV hydration. We will hold off on antibiotic. If the patient spikes fever, we will recommend to repeat panculture and chest x-ray. Continue supportive care and pain ma nagement and IV hydration. We will follow the patient closely. The patient also has leukemoid react ion and sickle cell anemia. Thank you Dr. Castrejon for consult. NF/CHARLOTTEL Voice ID: [id number] Report ID: [id number]
[2022-01-04] MEDS: HYDROMORPHONE ORAL 4 MG TAB PO PRN (18:37)
[2022-01-04] MEDS: CEFTRIAXONE 1,000 MG in NA CHLORIDE 0.9% 50 ML IVPB SCH (19:32)
[2022-01-04] MEDS ORDERED: NA CHLORIDE 0.9% 0 ML ONE (20:44)
[2022-01-04] MEDS ORDERED: NA CHLORIDE 0.9% 250 ML ONE (20:56)
[2022-01-05] MEDS: HYDROMORPHONE HCL 1 MG/ML INJ IV PRN ×3 (00:55→09:52)
[2022-01-05] MEDS: PROMETHAZINE INJ 25 MG/ML AMP IV PRN ×3 (00:55→09:52)
[2022-01-05] MEDS: DIPHENHYDRAMINE 50 MG/ML VIAL IV PRN ×3 (00:55→09:52)
--- NOTE | 2022-01-05 01:38 | P.DS ---
Discharge Date: 01/05/22 Disposition: ROUTINE DISCHARGE Discharge Condition: GOOD Reason for Admission: Sickle Cell Crisis - Problems (1) Sickle cell pain crisis Current Visit: Yes Status: Acute Brief History of Present Illness: Patient is a 31 year old female with sickle cell anemia and a history of pulmonary embolism who was transferred to this facility from [facility]. Patient was initially admitted to this facility 3 weeks ago for treatment of sickle cell crisis, developed bilateral lower rib pain and had imaging concerning for bilateral basilar lung infiltrates. Given her history of acute chest syndrome, she was transferred to [facility] for a formal hematology consultation 1 week ago. Hematology at [facility] evaluated her and deemed her stable for transfer back to this facility. She returns today with continued sickle cell pain all over. Vital Signs/Physical Exam: Temp Pulse Resp BP Pulse Ox 97.3 F 96 H 18 133/63 94 01/05/22 01:24 01/05/22 01:24 01/05/22 01:24 01/05/22 01:24 01/05/22 01:24 General: Alert, In no apparent distress, Oriented x3 Laboratory Data at Discharge: WBC 23.00 K/uL (4.3-10.9) H* 01/04/22 10:31 Hgb 7.2 g/dL (12.0-15.0) L 01/04/22 10:31 Hct 20.0 % (36.0-45.0) L* 01/04/22 10:31 Plt Count 591 K/uL (152-406) H 01/04/22 10:31 Sodium 139 mmol/L (136-145) 01/04/22 05:42 Potassium 3.9 mmol/L (3.5-5.1) 01/04/22 05:42 BUN 9 mg/dL (7-18) 01/04/22 05:42 Creatinine 0.49 mg/dL (0.55-1.3) L 01/04/22 05:42 Glucose 116 mg/dL (74-106) H 01/04/22 05:42 Magnesium 1.9 mg/dL (1.8-2.4) 01/04/22 05:42 Home Medications: Folic Acid [Folic Acid*] 1 mg PO DAILY 08/01/12 Cholecalciferol (Vitamin D3) [Vitamin D 1000 Iu Tab*] 1,000 unit PO EVERY 7TH DAY 09/30/20 Apixaban [Eliquis *] 2.5 mg PO BID #60 tablet 12/21/20 Hydromorphone HCl [Dilaudid] 8 mg PO TID PRN 30 Days #60 tablet 10/25/21 Polyethyl Gly 3350 [Glycolax*] 17 gm PO DAILYPRN PRN #30 udbot 10/26/21 Promethazine Tab [Phenergan*] 25 mg PO Q4H PRN #30 tab 10/26/21 Ascorbic Acid [Vitamin C*] 500 mg PO DAILY 12/06/21 Voxelotor [Oxbryta] 500 mg PO DAILY 12/14/21 Physician Discharge Instructions: OK TO DC IV AND DC HOME FOLLOW-UP WITH PRIMARY CARE PROVIDER IN 1-2 WEEKS FOLLOW-UP WITH HEMATOLOGY IN 1-2 WEEKS RETURN TO THE ER IF SYMPTOMS WORSENS CALL DR. MASON AT [phone] IF ANY QUESTIONS REGARDING HOSPITAL STAY. PLEASE CALL THE FLOOR AT [phone] IF ANY MEDICATION OR NURSING QUESTIONS. Diet: Regular Activity: Fall precautions
[2022-01-05 06:09] VITALS: O2SAT 96
[2022-01-05] MEDS: Ringers Lactate 1,000 ML IV SCH ×2 (08:03→11:14)
[2022-01-05] MEDS: HYDROMORPHONE ORAL 4 MG TAB PO PRN (08:04)
[2022-01-05] MEDS: CEFTRIAXONE 1,000 MG in NA CHLORIDE 0.9% 50 ML IVPB SCH (08:04)
[2022-01-05] MEDS: APIXABAN 2.5 MG TABLET PO SCH (08:05)
[2022-01-05 08:17] LABS: Hematocrit 24.4 % (36.0-45.0); Lymphocytes % 40.8 % (15.3-44.8); MCV 96.6 fL (80-100); MPV 7.3 fL (7.6-11.3); RBC Red Blood Cell Count 2.53 M/uL (3.86-4.86)
[2022-01-05 08:29] LABS: Potassium 3.7 mmol/L (3.5-5.1)
[2022-01-05] MEDS ORDERED: NA CHLORIDE 0.9% 250 ML ONE (08:49)
[2022-01-05 11:57] VITALS: BP 117/68; TEMP 98.3
[2022-01-05] MEDS ORDERED: HEPARIN 500 UNIT/5 ML SYR IV PRN (12:28)
[2022-01-05 13:21] LABS: Hematocrit 28.7 % (36.0-45.0)
== END 2022-01-05 16:00 | disposition home or self-care (01) | DRG 812 ==
LOC: 2ND 17:12
PROVIDERS: ADMIT Hospitalist; ATTEND Hospitalist
PROC: 30233N1 Transfusion of Nonautologous Red Blood Cells into Peripheral Vein, Percutaneous Approach (ICD-10-PCS; principal; 2022-01-05)
DX: D57.00 Hb-SS disease with crisis, unspecified (principal); D72.823 Leukemoid reaction; Z86.711 Personal history of pulmonary embolism; Z88.2 Allergy status to sulfonamides
CPT/HCPCS: 36415; 36430; 80048; 83735; 85014; 85018; 85025; 85044; 85660; 86850; 86900; 86901; 86905; 86922; J1170; J1200; J1642; J2550; J7030; J7050; J7120; P9016

== ENCOUNTER 2022-03-27 18:36 | Inpatient (IN) | payer OTHER ==
--- OUTSIDE RECORDS SUMMARY | 2022-03-27 18:44 | XMS REPORT | Continuity of Care Document ---
:1990 Author Organization [facility] t Address [address] [place] [address] Support Name Relationship Address Phone VARUN EL Mother N [facility] [address] [phone] [place] [address] [phone] [place] [address] DENAE CHEEMA Unavailable [phone] MARIA M KENDRICK Unavailable [phone] ESTHER MCBRIDE OT N [facility] [address] [place] [address] BEN FRIAS OT [facility] [address] [place] [address] REHAN CHEEMA Unavailable [address] [facility] [phone] [place] [address] MARÍA ELENA EL Unavailable [address] [facility] [phone] [place] [address] NELDA EL Unavailable [address] [facility] [phone] [place] [address] MD AMY ALONZO JR Admitting Provider [address] [facility] [address] [place] [address] TRAY SIDDIQUI PA-C Primary Care Physician Donna SMITH #[address] [place] [address] MD SAMANTHA LILLY MDS A Emergency Provider [address] [address] [phone] [place] [address] ORIANA MCNAMARA MD Attending Provider [address] [phone] [place] [phone] VARUN EL Next of Kin [address] [place] [address] IZZY MULLEN, CHAU Castellanos Emergency Provider [address] [facility] [address] [place] [address] PHYSICIAN, NO Primary Care Physician Unavailable Unavailab MD AMARILIS Jones MD Emergency Provider [address] [place] [address] OTHER, ENTER NAME IN Primary Care Physician Unavailable Unav ailable NOTES KIP MULLEN MD JENNIFER Emergency Provider [address] [place] [address] ISABELLA MULLEN MD [facility] Admitting Provider [address] [place] [address] MORIS FRANCIS Primary Care Physician [address] [facility] [phone] [place] [address] [facility] A Emergency Provider [facility] [place] [address] MD TYLER WRIGHT Emergency Provider Unavailable Unavailable MD SAMUEL KUMAR Emergency Provider [address] [place] [address] [place] [address] MD LESLY NEWTON Emergency Provider [address] [place] [address] Care Team Providers Name Role Phone FELIX NASCIMENTO Primary Care Physician Unavailable CLIFTON DASILVA Attending Clinician Unavailable MARCUS MI Attending Clinician Unavailable MAURICIO GRISSOM Attending Clinician Unavailable Kym Land MD Attending Clinician Meenu Rodriguez MD Attending Clinician [phone] Kristina Sahni MD Attending Clinician KRISTINA SAHNI Attending Clinician Unavailable AURORA GUTIERREZ Attending Clinician Unavailable RAHEL CORREA Attending Clinician Unavailable JENNIFER SHAH Attending Clinician Unavailable AAMIR MCCLOUD I Attending Clinician Unavailable ASHLEY WOODRUFF Attending Clinician Unavailable VIVIANA MASON Admitting Clinician Unavailable CLIFTON DASILVA Admitting Clinician Unavailable MEENU RODRIGUEZ Admitting Clinician Unavailable AURORA GUTIERREZ Admitting Clinician Unavailable ENRIQUE PEGUERO Admitting Clinician Unavailable EARL CARTER Admitting Clinician Unavailable Payers Payer Name Policy Type Policy Number Effective Date Expiration Date Lester ibarra [facility] [id number] 2015 2024 [employer] OON 00:00:00 00:00:00 EXCEPT [facility] STAR [id number] 2021 PLAN 00:00:00 Problems Condition Condition Condition Status Onset Resolution Last Treating Co mments Source Name Details Category Date Date Treatment Clinician Date Leukocytos Leukocytos Disease Active [facility] 00[facility] Medical 00 [place] Pneumonia Pneumonia Disease Active [facility] 00[facility] Medical [place] 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 00:00: Medical 00 [place] 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[facility] cell 2[facility]28 [facility] crisis crisis 00:00: Medical [place] 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[facility] 2[facility]28 [facility] crisis crisis 00:00: Medical 00 Center Allergies, Adverse Reactions, Alerts Allergy Allergy Status Severity Reaction(s) Onset Inactive Treating Comm ents Source Name Type Date Date Clinician FENTANYL Allergy Active [facility] Medical Center MORPHINE Allergy Active [facility] 00:[facility]: Medical 00 Center SULFA Allergy Active [facility] (SULFONA 8-18 [facility] MIDE 00:00: Medical ANTIBIOT 00 Center ICS) Fentanyl Propensi Active Shortness Of [facility] ty to Breath 8-18 [facility] adverse 00:00: Medical reaction 00 Center s Morphine Propensi Active Shortness Of [facility] to Breath 8-18 [facility] adverse 00:00: Medical reaction 00 Center s Sulfa Propensi Active [facility] (Sulfona ty to 8-18 [facility] mide adverse 00:00: Medical Antibiot reaction 00 Center ics) s ONDANSET Allergy Active Low N\T\V [facility] RISHABH HCL 2-28 (PF) 00:00: 00 Ondanset Drug Active Nausea And [facility] r[facility]abh Hcl Intolera Vomiting 2-28 [facility] (Pf) nce 00:00: Medical 00 Center morphine DA Active [facility] 3[facility]11 [place] 00:00: d 00 Medical Center TEGEDERM DA Active [facility] DRESSING 8[facility]23 [place] 00:00: d 00 Medical Center Family History Family Member Diagnosis Comments Start Date Stop Date Source Natural brother Unremarkable [facility] Natural father Seizures [facility] Center Natural father Sickle cell trait [facility] Natural mother Sickle cell trait [facility] Natural sister [facility]remarkable [facility] Social History Social Habit Start Date Stop Date Quantity Comments Source History SDOH [facility] Non-Med Medical Center History SDOH [facility] Housing Places Medical Ce nter Lived History [facility] 2021-12-29 2021-12-[address] [facility] Transport Med 00:00:00 00:00:[address] History [facility] 2021-12-29 2021-12-[address] [facility] Housing Unable to 00:00:00 00:00:00 Medical Center Pay History [facility] 2021-12-29 2021-12-[address] [facility] Housing Homeless 00:00:00 00:00:00 Medical Center Last Year Alcohol intake 2021-12-28 2021-12-[address] [facility] [facility] 00:00:00 00:00:00 non-drinker of Medical Ce nter alcohol (finding) Tobacco use and 2015-07-10 2015-07-[address] [facility] exposure 00:00:00 00:00:00 Medical Center Sex Assigned At [address] [facility] 00:00:00 00:00:00 Medical Center Smoking Status Start Date Stop Date Source Never sm[facility] Medications Ordered Filled Start Stop Current Ordering Indication Dosage Frequency Signature Comments Components Source Medication Medication Date Date Medication? Clinician (SIG) Name Name folic acid Yes folate 2mg QD Take [address] (FOLVITE) 1 8-24 deficiency by mouth [facility] MG tablet 15:59: daily. Medica l 55 Center penicillin Yes 250mg Take [address] v potassium 8-24 mg by Lukes (VEETID) 15:59: mouth Medical 250 MG 55 every 12 Center tablet (twelve) hours. HYDROmorpho 2022-0 Yes 8mg Take [address] ne 8-24 by mouth [facility]ukes (DILAUDID) 15:59: every 6 Medi rita 8 MG tablet 55 (six) Center hours as needed for Pain. apixaban 2022-0 Yes 2.5mg Q.5D Take 2.[address] (Eliquis) 8-24 mg by Lukes 2.5 mg Tab 15:59: mouth 2 Medi rita tablet 55 (two) Center times daily . ALPRAZolam 2022-0 Yes 1mg Take [address] (XANAX) 1 8-24 by mouth 2 Luke s MG tablet 15:59: (two) Medical 55 times Center daily as needed for Anxiety. voxelotor 2021-0 Yes 500mg QD Take [address] 500 mg Tab 8-24 mg by Lukes 15:59: mouth Medical 55 daily. Center promethazin 2021-0 Yes prevention 25mg Take [address] e 8-24 of by mouth [facility]ukes (PHENERGAN) 15:59: post-operat every 6 Medical 25 MG 55 hima nausea (six) Center tablet and hours as vomiting needed for Nausea. folic acid 2021-0 Yes folate 2mg QD Take [address] (FOLVITE) 1 8-24 deficiency by mouth [facility]ukes MG tablet 15:59: daily. Medica l 55 Center penicillin 2021-0 Yes 250mg Take [address] v potassium 8-24 mg by Lukes (VEETID) 15:59: mouth Medical 250 MG 55 every 12 Center tablet (twelve) hours. HYDROmorpho 2022-0 Yes 8mg Take [address] ne 8-24 by mouth [facility]ukes (DILAUDID) 15:59: every 6 Medi rita 8 MG tablet 55 (six) Center hours as needed for Pain. apixaban 2022-0 Yes 2.5mg Q.5D Take 2.[address] (Eliquis) 8-24 mg by Lukes 2.5 mg Tab 15:59: mouth 2 Medi rita tablet 55 (two) Center times daily . ALPRAZolam 2022-0 Yes 1mg Take [address] (XANAX) 1 8-24 by mouth 2 Luke s MG tablet 15:59: (two) Medical 55 times Center daily as needed for Anxiety. voxelotor 0 Yes 500mg QD Take [address] 500 mg Tab 8-24 mg by Lukes 15:59: mouth Medical 55 daily. Center promethazin 0 Yes prevention 25mg Take [address] e 8-24 of by mouth Lukes (PHENERGAN) 15:59: post-operat every 6 Medical 25 MG 55 hima nausea (six) Center tablet and hours as vomiting needed for Nausea. folic acid 0 Yes folate 2mg QD Take [address] (FOLVITE) 1 8-24 deficiency by mouth [facility]ukes MG tablet 15:59: daily. Medica l 55 Center penicillin 2021-0 Yes 250mg Take [address] v potassium 8-24 mg by Lukes (VEETID) 15:59: mouth Medical 250 MG 55 every 12 Center tablet (twelve) hours. HYDROmorpho 0 Yes 8mg Take [address] ne 8-24 by mouth [facility]ukes (DILAUDID) 15:59: every 6 Medi rita 8 MG tablet 55 (six) Center hours as needed for Pain. apixaban 0 Yes 2.5mg Q.5D Take 2.[address] (Eliquis) 8-24 mg by Lukes 2.5 mg Tab 15:59: mouth 2 Medi rita tablet 55 (two) Center times daily . ALPRAZolam 0 Yes 1mg Take [address] (XANAX) 1 8-24 by mouth 2 Luke s MG tablet 15:59: (two) Medical 55 times Center daily as needed for Anxiety. voxelotor 0 Yes 500mg QD Take [address] 500 mg Tab 8-24 mg by Lukes 15:59: mouth Medical 55 daily. Center promethazin 0 Yes prevention 25mg Take [address] e 8-24 of by mouth Lukes (PHENERGAN) 15:59: post-operat every 6 Medical 25 MG 55 hima nausea (six) Center tablet and hours as vomiting needed for Nausea. folic acid 2021-0 Yes folate 2mg QD Take [address] (FOLVITE) 1 8-24 deficiency by mouth [facility]ukes MG tablet 15:59: daily. Medica l 55 Center penicillin 2021-0 Yes 250mg Take [address] v potassium 8-24 mg by Lukes (VEETID) 15:59: mouth Medical 250 MG 55 every 12 Center tablet (twelve) hours. HYDROmorpho 0 Yes 8mg Take [address] ne 8-24 by mouth [facility]ukes (DILAUDID) 15:59: every 6 Medi rita 8 MG tablet 55 (six) Center hours as needed for Pain. apixaban 0 Yes 2.5mg Q.5D Take 2.[address] (Eliquis) 8-24 mg by Lukes 2.5 mg Tab 15:59: mouth 2 Medi rita tablet 55 (two) Center times daily . ALPRAZolam Yes 1mg Take [address] (XANAX) 1 8-24 by mouth 2 Luke s MG tablet 15:59: (two) Medical 55 times Center daily as needed for Anxiety. voxelotor Yes 500mg QD Take [address] 500 mg Tab 8-24 mg by Lukes 15:59: mouth Medical 55 daily. Center promethazin Yes prevention 25mg Take [address] e 8-24 of by mouth Lukes (PHENERGAN) 15:59: post-operat every 6 Medical 25 MG 55 hima nausea (six) Center tablet and hours as vomiting needed for Nausea. folic acid Yes folate 2mg QD Take [...] mouth once Medi rita 00 a week. [place] VITAMIN D2 2019-0 Yes 1{capsu Q7D Take [address] [facility],000 unit 2-25 le} capsule by Ariana kes capsule 00:00: mouth once Medi rita 00 a week. [place] VITAMIN D2 2018-0 Yes 1{capsu Q7D Take [address] 50,000 unit 2-25 le} capsule by Ariana kes capsule 00:00: mouth once Medi rita 00 a week. [place] VITAMIN D2 2018-0 Yes 1{capsu Q7D Take [address] 50,000 unit 2-25 le} capsule by Ariana kes capsule 00:00: mouth once Medi rita 00 a week. [place] VITAMIN D2 2018-0 Yes 1{capsu Q7D Take [address] 50,000 unit 2-25 le} capsule by Ariana kes capsule 00:00: mouth once Medi rita 00 a week. [place] VITAMIN D2 2018-0 Yes 1{capsu Q7D Take [address] 50,000 unit 2-25 le} capsule by Ariana kes capsule 00:00: mouth once Medi rita 00 a week. [place] VITAMIN D2 2018-0 Yes 1{capsu Q7D Take [address] 50,000 unit 2-25 le} capsule by Ariana kes capsule 00:00: mouth once Medi rita 00 a week. [place] VITAMIN D2 2018-0 Yes 1{capsu Q7D Take [address] 50,000 unit 2-25 le} capsule by Ariana kes capsule 00:00: mouth once Medi rita 00 a week. [place] VITAMIN D2 2018-0 Yes 1{capsu Q7D Take [address] 50,000 unit 2-25 le} capsule by Ariana kes capsule 00:00: mouth once Medi rita 00 a week. [place] PROAIR HFA 2019-0 Yes 1{puff} Inhale 1 [...] 157.5 cm WEIGHT 2021-12-28 22:08:00 72.893 kg Systolic blood 2022-01-03 15:29:00 124 mm[Hg] [facility] Diastolic blood 2022-01-03 15:29:00 58 mm[Hg] [facility] Heart rate 2022-01-03 15:29:00 106 /min [facility] Body temperature 2022-01-03 15:29:00 36.11 [place]onna [facility] Respiratory rate 2022-01-03 15:29:00 20 /min [facility] Oxygen saturation in 2022-01-03 15:29:00 93 /min [facility] Arterial blood by Medical Ce nter Pulse oximetry Body weight 2022-01-03 05:27:00 72.485 kg [facility] BMI 2022-01-03 05:27:00 29.23 kg/m2 [facility] Body height 2021-12-28 22:08:00 157.5 cm [facility] Procedures Procedure Date / Time Performed Performing Clinician Sourc e BLOOD CULTURE 2022-01-03 09:49:00 QuinnKristina [facility] CBC W/PLT COUNT & AUTO 2022-01-03 03:49:00 Quinn, Kristina [facility] S t [facility] DIFFERENTIAL Medical Center BASIC METABOLIC PANEL 2022-01-03 03:49:00 Quinn, [facility] (7) [facility] Center CBC W/PLT COUNT & AUTO 2022-01-03 03:49:00 Quinn, Kristina [facility] S t [facility] DIFFERENTIAL Medical Center (CELLAVISION MANUAL 2022-01-03 03:49:00 Quinn, Kristina [facility] DIFF) Medical Center SARS-COV2/RT-PCR ([facility] & 2022-01-02 21:11:00 Rosio Pollack [facility] REF LABS) [facility] CBC W/PLT COUNT & AUTO 2022-01-02 03:16:00 Quinn, [facility] S t [facility] DIFFERENTIAL [facility] Center BASIC METABOLIC PANEL 2022-01-02 03:16:00 Quinn, Kristina [facility] (7) [facility] Center CBC W/PLT COUNT & AUTO 2022-01-02 03:16:00 [facility] DIFFERENTIAL Medical Center (CELLAVISION MANUAL 2022-01-02 03:16:00 Quinn, Kristina [facility] St L ukes DIFF) Medical Center CBC W/PLT COUNT & AUTO 2021-12-31 09:48:00 Quinn, [facility] S t [facility] DIFFERENTIAL [facility] Center BASIC METABOLIC PANEL 2021-12-31 09:48:00 Quinn, Kristina [facility] (7) Medical Center CBC W/PLT COUNT & AUTO 2021-12-31 09:48:00 Quinn, Kristina [facility] S [facility] DIFFERENTIAL Medical Center (CELLAVISION MANUAL 2021-12-31 09:48:00 Quinn, Kristina [facility] St L u[facility] DIFF) Medical Center BASIC METABOLIC PANEL 2021-12-30 02:41:00 Rosio Pollack [facility] () [facility] HEPATIC FUNCTION PANEL 2021-12-30 02:41:[address] [facility] MAGNESIUM 2021-12-30 02:41:[address] [facility] CBC W/PLT COUNT & AUTO 2021-12-30 02:41:[address] [facility] DIFFERENTIAL [facility] CBC W/PLT COUNT & AUTO 2021-12-30 02:41:00 Pollack Rosio Bhakta [facility] DIFFERENTIAL [facility] (CELLAVISION MANUAL 2021-12-30 02:41:[address] [facility] DIFF) [facility] SARS-COV2/RT-PCR ([facility] & 2021-12-29 13:19:00 Ranjeet [address]ta [facility] REF LABS[facility] 2D ECHO W/ DOPPLER 2021-12-29 10:56:17 Ranjeet Rosio Bhakta [facility] (CW/PW/COLOR) [facility] ECG 12-LEAD 2021-12-29 04:52:[address] [facility] [facility] ECG 12-LEAD 2021-12-29 04:52:19 Unknown, 7 [facility] ECG 12-LEAD 2021-12-29 04:52:19 Unknown, 7 [facility] ECG 12-LEAD 2021-12-29 04:50:49 Unknown, 7 [facility] ECG 12-LEAD 2021-12-29 04:50:49 Unknown, 7 [facility] BASIC METABOLIC PANEL 2021-12-29 04:50:00 Ranjeet Rosio Reyesen [facility] (7) [facility] HEPATIC FUNCTION PANEL 2021-12-29 04:50:00 Rosio Pollack Livia [facility] MAGNESIUM 2021-12-29 04:50:[address] Pollack [address] [facility] CBC W/PLT COUNT & AUTO 2021-12-29 04:50:[address] [facility] DIFFERENTIAL [facility] CBC W/PLT COUNT & AUTO 2021-12-29 04:50:00 Ranjeet Rosio Reyesbekah Kess[facility] DIFFERENTIAL [facility] (CELLAVISION MANUAL 2021-12-29 04:50:[address] [facility] DIFF) [facility] SCREEN, URINE 2021-12-29 01:52:00 Rosio Pollack [facility] BASIC METABOLIC PANEL 2021-12-28 23:44:00 Ranjeet Rosio Livia I [facility] (7) [facility] HEPATIC FUNCTION PANEL 2021-12-28 23:44:[address] [facility] MAGNESIUM 2021-12-28 23:44:00 Rosio Poll[address] Livia JUDITH [facility] PHOSPHORUS 2021-12-28 23:44:[address] [facility] TSH/FREE T4 IF INDICATED 2021-12-28 23:44:[address] [facility] B-TYPE NATRIURETIC 2021-12-28 23:44:00 Ros[facility]NP[facility] CBC W/PLT COUNT & AUTO 2021-12-28 23:44:00 Rosio Pollack [facility] DIFFERENTIAL [facility] PROTHROMBIN TIME/INR 2021-12-28 23:44:[address] [facility] TYPE AND SCREEN, 2021-12-28 23:44:00 Rosio Pollack [facility] AUTOMATED [facility] CBC W/PLT COUNT & AUTO 2021-12-28 23:44:00 Rosio Pollack [facility] DIFFERENTIAL [facility] (CELLAVISION MANUAL 2021-12-28 23:44:00 Rosio Pollack [facility] DIFF) [facility] XR CHEST 1 VIEW PORTABLE 2021-12-28 23:31:00 Rosio Pollack [facility] / BEDSIDE [facility] HEPATITIS B SURFACE 2021-09-26 05:00:00 [facility] HEPATITIS A ANTIBODY, 2021-09-26 05:00:00 [facility] HEPATITIS C ANTIBODY 2021-09-26 05:00:00 [facility] HEPATITIS B CORE 2021-09-26 05:00:00 [facility] HEPATITIS B SURFACE 2021-09-24 21:59:00 [facility] Center HEPATITIS B CORE 2021-09-24 21:59:00 [facility] ANTIBODY, [facility] HEPATITIS A ANTIBODY, 2021-09-24 21:59:00 [facility] HEPATITIS C ANTIBODY 2021-09-24 21:59:00 [facility] HEPATITIS PANEL, ACUTE 2021-09-24 21:59:00 [facility] Plan of Care Planned Activity Planned Date Details Comments Source Future Scheduled 2022-01-11 INFLUENZA VACCINE (#1) [facility] 00:00:00 [code = INFLUENZA Medical Ce nter VACCINE (#1)] Future Scheduled 2022-01-11 INFLUENZA VACCINE (#1) [facility] 00:00:00 [code = INFLUENZA Medical Ce nter VACCINE (#1)] Future Scheduled 2022-01-11 INFLUENZA VACCINE (#1) [facility] 00:00:00 [code = INFLUENZA Medical Ce nter VACCINE (#1)] Future Scheduled 2022-01-11 INFLUENZA VACCINE (#1) [facility] [...] [facility] Test 00:00:00 (12+) [code = [facility] Center DEPRESSION SCREENING (12+)] Future Scheduled 2020-05-[address] [facility] Test 00:00:00 (12+) [code = [facility] Center DEPRESSION SCREENING (12+)] Future [...] Medica l Center cervix (procedure) [code = 207833085] Future Scheduled 2012-09-[address] [facility] [facility] Test 00:00:00 malignant neoplasm of Medica l Center cervix (procedure) [code = 578627097] Future Scheduled 2012-09-[address] [facility] [facility] Test 00:00:00 malignant neoplasm of Medica l Center cervix (procedure) [code = 354550450] Future Scheduled 2012-09-[address] [facility] [facility] Test 00:00:00 malignant neoplasm of Medica l Center cervix (procedure) [code = 068617331] Future Scheduled 2012-09-[address] [facility] [facility] Test 00:00:00 malignant neoplasm of Medica l Center cervix (procedure) [code = 599611914] Future Scheduled 2012-09-[address] [facility] [facility] Test 00:00:00 malignant neoplasm of Medica l Center cervix (procedure) [code = 730881418] Future Scheduled 2012-09-[address] [facility] [facility] Test 00:00:00 malignant neoplasm of Medica l Center cervix (procedure) [code = 762869676] Future Scheduled 2012-09-[address] [facility] Test 00:00:00 malignant neoplasm of Medica l Center cervix (procedure) [code = 933697113] Future Scheduled 2012-09-[address] [facility] Test 00:00:00 malignant neoplasm of Medica l Center cervix (procedure) [code = 974854886] Future Scheduled [address] [facility] [facility] Test 00:00:00 (procedure) [code = [facility] Center [id number]] Future Scheduled [address] Test 00:00:00 (procedure) [code = [facility] Center 01289545] Future Scheduled [address] [facility] Test 00:00:00 (procedure) [code = [facility] Center 09686242] Future Scheduled [address] Test 00:00:00 (procedure) [code = [facility] Center 75102873] Future Scheduled [address] [facility] Test 00:00:00 (procedure) [code = [facility] Center 46422029] Future Scheduled 2010-09-05 DTAP/TDAP/TD VACCINES [facility] 00:[facility]:00 0-64 YRS (1 - PCV) Medical C enter [code = PNEUMOCOCCAL VACCINE 0-64 YRS (1 - PCV)] Future Scheduled 1997-09-[address] [facility] Test 00:00:00 0-64 YRS (1 - PCV) Medical C enter [code = PNEUMOCOCCAL VACCINE 0-64 YRS (1 - PCV)] Future Scheduled 1997-09-[address] [facility] Test 00:00:00 0-64 YRS (1 - PCV) Medical C enter [code = PNEUMOCOCCAL VACCINE 0-64 YRS (1 - PCV)] Future Scheduled 1997-09-[address] [facility] Test 00:00:00 0-64 YRS (1 - PCV) Medical C enter [code = PNEUMOCOCCAL VACCINE 0-64 YRS (1 - PCV)] Future Scheduled 1992-03-07 COVID-19 VACCINE (#1) [facility] 00:00:00 [code = COVID-[address] VACCINE (#1)] Future Scheduled 1992-03-07 COVID-19 VACCINE (#1) [facility] 00:00:00 [code = COVID-[address] VACCINE (#1)] Future Scheduled 1992-03-07 COVID-19 VACCINE (#1) [facility] 00:00:00 [code = COVID-[address] VACCINE (#1)] Future Scheduled 1992-03-07 COVID-19 VACCINE (#1) [facility] Test 00:00:00 [code = COVID-[address] VACCINE (#1)] Encounters Start End Encounter Admission Attending Care Care Encounter Source Date/Time Date/Time Type Type Clinicians Facility Department ID 2022-03-14 Outpatient [facility] [id number] [place] 15:10:41 [id number] [facility] 2022-03-12 Emergency HFD HFD [id number] ALICIA - 22:24:00 [place] [facility] 2022-03-13 2022-03-[address] [facility] [id number] [facility] 13:47:00 17:30:00 [place] 2022-02-19 2022-03-[address] [facility] [id number] [facility] 07:38:00 17:27:00 MARCUS 2022-01-09 2022-01-09 [facility] [id number] [facility] 00:00:00 00:00:00 MAURICIO 2021-12-28 2022-01-03 [facility] [id number] 21:57:00 15:59:00 Encounter Meenu Rodriguezm Kristina Medic [facility] 2021-12-28 2022-01-03 Inpatient QUINN KRISTINA [facility] Med 2 [id number] [facility] 21:57:00 15:59:00 2021-12-28 2022-01-03 [facility] [id number] 21:57:00 15:59:00 Encounter Meenu Rodriguez Kristina Medic al [place] 2021-12-29 2021-12-[address] [facility] [id number] [facility] 00:00:00 23:59:00 Eric Medicin e 2021-12-29 2021-12-29 Orders [facility] [id number] 00:00:00 00:00:00 [facility] 2021-12-29 2021-12-29 Orders [facility] [id number] 00:00:00 00:00:00 Only [facility] 2021-09-26 2021-09-26 Lab [facility] [id number] 00:00:00 00:00:00 [facility] 2021-09-26 2021-09-26 Lab [facility] [id number] [address] 00:00:00 00:00:00 [facility] 2021-09-25 2021-09-25 Lab [facility] [id number] [address] 00:00:00 00:00:00 [facility] 2021-09-25 2021-09-25 Lab [facility] [id number] [address] 00:00:00 00:00:00 [facility] 2021-06-05 2021-06-08 Inpatient E BRENDA BL MED [id number] MHBL 04:10:00 13:24:00 [facility] 2021-06-03 2021-06-03 Emergency E SUNNY MHBL MHBL 7525 MHBL 02:02:00 14:43:00 RAHEL 2021-04-04 2021-04-04 Emergency E JENNIFER SHAH MHBL MHBL 7524 MHBL 02:21:00 06:06:00 2021-02-26 2021-03-04 Inpatient E AME, SW MHSW 7523 MHSW 15:00:00 16:50:00 AAMIR 2021-02-18 2021-02-23 Inpatient E BRENDA, MHBL MED [id number] MHBL 16:11:00 16:32:00 [facility] 2019-06-14 2019-06-14 Emergency E MHBL MHBL 7520 MHBL 16:16:00 16:16:00 2019-06-09 2019-06-09 Inpatient E MHSW MED 7519 MHSW 09:53:00 05:29:00 2019-06-05 2019-06-05 Emergency E MHBL MHBL 7518 MHBL 00:19:00 00:19:00 2019-04-29 2019-04-29 Emergency E SW MHSW 7517 MHSW 19:58:00 19:58:00 2019-03-26 2019-03-26 [...] Time Test Comments Results Result Comments Source BLOOD CULTURE 2022-01-08 13:00:55 Test Item Value Reference Range Interpretation Comme nts CULTURE (BEAKER) (test code = 1095) No growth in 5 days BLOOD [id number] 13:00:55 Test Item Value Reference Range Interpretation Comments CULTURE (BEAKER) (test No growth in 5 days code = 1095) CBC W/PLT COUNT & AUTO [id number] 07:10:44 Test Item Value Reference Range Interpretation Comments WHITE BLOOD CELL COUNT (BEAKER) 28.4 K/ L 3.5-10.5 H (test code = 775) RED BLOOD CELL COUNT (BEAKER) 2.13 M/ L 3.93-5.22 L (test code = 761) HEMOGLOBIN (BEAKER) (test code = 7.0 GM/DL 11.2-15.7 L 410) HEMATOCRIT (BEAKER) (test code = 19.8 % 34.1-44.9 L 411) MEAN CORPUSCULAR VOLUME (BEAKER) 93.0 fL 79.4-94.8 (test code = 753) MEAN CORPUSCULAR HEMOGLOBIN 32.9 pg 25.6-32.2 H (BEAKER) (test code = 751) MEAN CORPUSCULAR HEMOGLOBIN CONC 35.4 GM/DL 32.2-35.5 (BEAKER) (test code = 752) RED CELL DISTRIBUTION WIDTH 22.2 % 11.7-14.4 H (BEAKER) (test code = 412) PLATELET COUNT (BEAKER) (test 582 K/CU MM 150-450 H code = 756) MEAN PLATELET VOLUME (BEAKER) 9.8 fL 9.4-12.3 (test code = 754) NUCLEATED RED BLOOD CELLS 3 /100 WBC 0-0 H (BEAKER) (test code = 413) (CELLAVISION MANUAL DIFF)2022-01-03 07:10:44 Test Item Value [...] CONCENTRATION Increased (CELLAVISION)(BEAKER) (test code = 3438) Waist Pleater ID - emanuel Duke comments: Slide comments:BASIC METABOLIC PANEL 2022-01-03 04:33:47 [...] not appl icable for dialysis patien ts Waist Pleater ID - PIETER MSpecimen slightly ictericSARS-CoV2/RT-PCR (Asymptomatic ONLY)2022-01-03 01:56:54 Test Item Value Reference Range Interpretation Comments SARS-COV2/RT-PCR Negative Not Detected, (test code = Negative, See 67526-4) external report for linked test SARS-COV-2 [facility] PERFORMING LAB (test code = 85027-2) RUSLAN (test code = Negative result for this RUSLAN) test determines that SARS-CoV-2 RNA was not [...] be considered in cases of suspected false negatives. The limit of detection for this assay is 800 copies/mL. This SARS CoV-2 test is a real-time RT-PCR [...] of the Act. Fact Sheet for Healthcare Providers:https://www.HealthLoop/sites/default/f reza/product/documents/F act_Sheet_HC_Providers_L gbr_NUMN-LyF-6.pdf Fact Sheet for Healthcare Patients:https://www.Infinit/sites/default/fi les/product/documents/Fa ct_Sheet_Patients_Lyra_S ARS-CoV-2.pdf Performing Laboratory:[facility] [place] [address] [facility]2022-01-03 01:56:54 Test Item Value Reference Range Interpretation Comments SARS-COV2/RT-PCR Negative Not Detected, (test code = Negative, See 77769-3) external report for linked test SARS-COV-2 [facility] PERFORMING LAB (test code = 48411-3) RUSLAN (test code = Negative result for this RUSLAN) test determines that SARS-CoV-2 RNA was not [...] be considered in cases of suspected false negatives. The limit of detection for this assay is 800 copies/mL. This SARS CoV-2 test is a real-time RT-PCR [...] of the Act. Fact Sheet for Healthcare Providers:https://www.HealthLoop/sites/default/f reza/product/documents/F act_Sheet_HC_Providers_L kdl_UUXH-OkC-1.pdf Fact Sheet for Healthcare Patients:https://www.Infinit/sites/default/fi les/product/documents/Fa ct_Sheet_Patients_Lyra_S ARS-CoV-2.pdf Performing Laboratory:[facility], [place] [address] [place], [place] [address]ARS-CoV2/RT-PCR (Asymptomatic ONLY)2022-01-03 01:56:54 Test Item Value Reference Range Interpretation Comments SARS-COV2/RT-PCR Negative Not Detected, (test code = Negative, See 92202-0) external report for linked test SARS-COV-2 [facility] PERFORMING LAB (test code = 32226-1) RUSLAN (test code = Negative result for this RUSLAN) test determines that SARS-CoV-2 RNA was not [...] be considered in cases of suspected false negatives. The limit of detection for this assay is 800 copies/mL. This SARS CoV-2 test is a real-time RT-PCR [...] of the Act. Fact Sheet for Healthcare Providers:https://www.HealthLoop/sites/default/f reza/product/documents/F act_Sheet_HC_Providers_L xfo_HHDT-WoG-6.pdf Fact Sheet for Healthcare Patients:https://www.Infinit/sites/default/fi les/product/documents/Fa ct_Sheet_Patients_Lyra_S ARS-CoV-2.pdf Performing Laboratory:[facility], [place] [address] [place], [place] [address]ARS-CoV2/RT-PCR (Asymptomatic ONLY)2022-01-03 01:56:54 Test Item Value Reference Range Interpretation Comments SARS-COV2/RT-PCR Negative Not Detected, (test code = Negative, See 94604-6) external report for linked test SARS-COV-2 [facility] PERFORMING LAB (test code = 31891-2) RUSLAN (test code = Negative result for this RUSLAN) test determines that SARS-CoV-2 RNA was not [...] be considered in cases of suspected false negatives. The limit of detection for this assay is 800 copies/mL. This SARS CoV-2 test is a real-time RT-PCR [...] of the Act. Fact Sheet for Healthcare Providers:https://www.HealthLoop/sites/default/f reza/product/documents/F act_Sheet_HC_Providers_L qge_GGQT-FmP-9.pdf Fact Sheet for Healthcare Patients:https://www.Infinit/sites/default/fi les/product/documents/Fa ct_Sheet_Patients_Lyra_S ARS-CoV-2.pdf Performing Laboratory:[facility] [place] [address] [facility])2022-01-03 01:56:54 Test Item Value Reference Range Interpretation Comments SARS-COV2/RT-PCR (test Negative Not Detected, Negative, code = 1520138) See external report for linked test SARS-COV-2 PERFORMING LAB [facility] (test code = 6712413) Negative result for this test determines that [...] of the Act.Fact Sheet for Healthcare Prov iders:https://www.MRO/sites/default/files/product/documents/Fact_Sheet_HC _Gducpmsfu_Nebb_GJAH-WeJ-0.pdfFact Sheet for Healthcare Patients:https://www.MRO/sites/default/files/product/docume nts/Nvls_Ejgpz_Sdatuyas_Liyp_ZTCG-SwY-8.pdfPerforming Laboratory:[facility] [place] [address](CELLAVISION MANUAL DIFF) 2022-01-02 07:09:24 Test Item Value [...] 767) ARTIFACT (CELLAVISION)(BEAKER) Present (test code = 7972) PAPPENHEIMER 1+ few (CELLAVISION)(BEAKER) (test code = 3435) PLATELET CONCENTRATION Increased (CELLAVISION)(BEAKER) (test code = 3438) Waist Pleater ID - Martine OverholtUser comments: Slide comments:CBC W/PLT COUNT & AUTO [id number] 07:09:23 Test Item Value Reference Range Interpretation [...] (BEAKER) (test code = 413) BASIC METABOLIC [id number] 03:43:56 Test Item Value Reference Range Interpretation [...] eGFR (test code = mL/min/1.73 values Stage D escription 1092) sq m Result G1 Starr l [...] not appl icable for dialysis patien ts Waist Pleater ID - PIAYA LSpecimen slightly icteric(CELLAVISION MANUAL [...] CONCENTRATION Increased (CELLAVISION)(BEAKER) (test code = 3438) Waist Pleater ID - 6000Operator ID - Martine OverholtUser comments: Slide comments:CBC W/PLT COUNT & AUTO [id number] 11:06:13 Test Item Value Reference Range Interpretation [...] (BEAKER) (test code = 413) BASIC METABOLIC [id number] 10:23:17 Test Item Value Reference Range Interpretation [...] not appl icable for dialysis patien ts Waist Pleater ID - MITCHCBC W/PLT COUNT & AUTO [id number] 03:54:02 Test Item Value Reference Range Interpretation [...] CONCENTRATION Increased (CELLAVISION)(BEAKER) (test code = 3438) Waist Pleater ID - Cornelius Santos comments: Slide comments:BASIC [...] high >=90 G2 Mildly decreased 60-89 G3a Mild ly to moderately 45-5 9 G3b Moderately to [...] not appl icable for dialysis patien ts Waist Pleater ID - PIETER [id number] 03:27:46 Test Item Value Reference Range Interpretation Comments MAGNESIUM (BEAKER) (test code = 1.5 mg/dL 1.6-2.6 L 627) Waist Pleater ID - PIETER MHEPATIC FUNCTION [id number] 03:27:46 Test Item Value Reference Range Interpretation [...] (SGPT) (BEAKER) (test code = 50 U/L 6-58 114) Waist Pleater ID - PIETER MSARS-COV2/RT-PCR ([facility])2021-12-29 20:53:09 Test Item Value Reference Range Interpretation Comments SARS-COV2/RT-PCR (test Negative Not Detected, Negative, code = 8055002) See external report for linked test SARS-COV-2 PERFORMING LAB [facility] (test code = 0180622) Negative result for this test determines that [...] of the Act.Fact Sheet for Healthcare Prov iders:https://www.MRO/sites/default/files/product/documents/Fact_Sheet_HC _Ncqecnmer_Jzww_RARO-IxD-2.pdfFact Sheet for Healthcare Patients:https://www.Jibe Mobile.Farseer/sites/default/files/product/docume nts/Rzof_Zuafj_Gggxglnk_Bwrz_LMBJ-ElX-0.pdfPerforming Laboratory:[facility], [place] [address]Goagnfxamxxfm 2D echo w/ doppler (cw/pw/color)2021-12-29 15:36:58Ejection FractionSLEH ECHO [facility]LAB [facility] w/ doppler (cw/pw/color)2021-12-29 15:36:58Ejection FractionSLEH ECHO [facility]ARTLAB [facility] echo w/ doppler (cw/pw/color) 2021-12-29 15:36:58Ejection FractionSLEH ECHO [facility]ARTLAB [facility] echo w/ doppler (cw/pw/color)2021-12-29 15:36:58Ejection FractionSLE ECHO [facility](CELLAVISION MANUAL DIFF)2021-12-29 07:16:35 Test Item Value Reference Range Interpretation [...] CONCENTRATION Increased (CELLAVISION)(BEAKER) (test code = 3438) Waist Pleater ID - emanuel Duke comments: Slide comments:CBC W/PLT COUNT & AUTO [id number] 07:16:31 Test Item Value Reference Range Interpretation [...] CONCENTRATION Increased (CELLAVISION)(BEAKER) (test code = 3438) Waist Pleater ID - emanuel Duke comments: Slide comments:CBC W/PLT COUNT & AUTO [id number] 07:16:30 Test Item Value Reference Range Interpretation [...] 0-0 H (BEAKER) (test code = 413) [id number] 06:49:49 Test Item Value Reference Range Interpretation Comments MAGNESIUM (BEAKER) (test code = 1.4 mg/dL 1.6-2.6 L 627) Waist Pleater ID - PIETER EPATIC FUNCTION [id number] 06:49:49 Test Item Value Reference Range Interpretation [...] (test code = 43 U/L 6-55 347) Waist Pleater ID Deana STAPLETON MBASIC METABOLIC [id number] 06:49:48 Test Item Value Reference Range Interpretation [...] not appl icable for dialysis patien ts Waist Pleater ID - PIETER MPregnancy Screen, [id number] 03:16:32 Test Item Value Reference Range Interpretation Comments Preg Test, Ur (test code = 2111-05) Negative Negative Lab Interpretation (test code = Normal 44369-8) [facility] [id number] 03:16:32 Test Item Value Reference Range Interpretation Comments Preg Test, Ur (test code = 2111-) Negative Negative Lab Interpretation (test code = Normal 64677-1) [facility], [id number] 03:16:32 Test Item Value Reference Range Interpretation Comments Preg Test, Ur (test code = 2-1) Negative Negative Lab Interpretation (test code = Normal 31260-5) [facility], [id number] 03:16:32 Test Item Value Reference Range Interpretation Comments Preg Test, Ur (test code = 2-1) Negative Negative Lab Interpretation (test code = Normal 04217-8) [facility], [id number] 03:16:32 Test Item Value Reference Range Interpretation Comments TEST URINE (BEAKER) (test Negative Negative code = 583) TSH/FREE T4 IF [id number] 00:37:03 Test Item Value Reference Range Interpretation Comments THYROID STIMULATING HORMONE 1.144 uIU/mL 0.350-4.940 (BEAKER) (test code = 772) Waist Pleater ID - PIERO [id number] 00:23:22 Test Item Value Reference Range Interpretation Comments PHOSPHORUS (BEAKER) (test code = 3.6 mg/dL 2.3-4.7 604) Waist Pleater ID - PIERO LHEPATIC FUNCTION [id number] 00:23:22 Test Item Value Reference Range Interpretation [...] (test code = 45 U/L 6-55 347) Waist Pleater ID - PIERO LBASIC METABOLIC [id number] 00:23:21 Test Item Value Reference Range Interpretation [...] not appl icable for dialysis patien ts Waist Pleater ID - PIERO [id number] 00:23:21 Test Item Value Reference Range Interpretation Comments MAGNESIUM (BEAKER) (test code = 1.7 mg/dL 1.6-2.6 627) Waist Pleater ID - PIERO LB-TYPE NATRIURETIC FACTOR (BNP)2021-12-29 00:22:19 Test Item Value Reference Range Interpretation Comments B-TYPE NATRIURETIC PEPTIDE (BEAKER) 12 pg/mL 0-100 (test code = 700) Waist Pleater ID - PIERO LPROTHROMBIN TIME/[id number] 00:13:42 Test Item Value Reference Range Interpretation Comments PROTIME (BEAKER) 14.2 seconds 11.9-14.2 (test code = 759) INR (BEAKER) (test 1.13 See_Comment [Automat ed message] code = 370) The system easyfolio generated this result transmitted ref erence range: <=5.90. The reference range was not used to int erpret this result as normal/abnormal . RECOMMENDED COUMADIN/WARFARIN INR THERAPY RANGESSTANDARD DOSE: 2.0 - 3.0 Includes: PROPHYLAXIS for venous thrombosis, systemic embolization; TREATMENT for venous thrombosis and/or pulmonary embolus.HIGH RISK: Target INR is 2.5-3.5 for patients with mechanical heart valves.RAD, CHEST, 1 VIEW, NON [id number] 23:56:00Reason for exam:->dyspnea; sickle cell crisisIs the patient ?->UnknownShould this be performed at the bedside?->Yes [facility] 1990 Sex: FFINAL REPORT [...] Marcy Eaton MDReport Verified Date/Time: 12/28/2021 23:56:16 Hepatitis B core antibody, [id number] 11:45:17 Test Item Value Reference Range Interpretation Comments Hep B Core Total Ab (test Nonreactive Nonreactive code = 46183-9) RUSLAN (test code = RUSLAN) Waist Pleater ID - DB Lab Interpretation (test Normal code = 74875-5) [facility] [id number] 11:45:17 Test Item Value Reference Range Interpretation Comments Hep A IgM (test code = Nonreactive Nonreactive 17225-7) RUSLAN (test code = RUSLAN) Waist Pleater ID - DB Lab Interpretation (test Normal code = 02390-4) [facility] C [id number] 11:45:17 Test Item Value Reference Range Interpretation Comments Hepatitis C Ab (test code = Nonreactive Nonreactive 11298-6) RUSLAN (test code = RUSLAN) Waist Pleater ID - DB Lab Interpretation (test Normal code = 48140-7) [facility] B core antibody, [id number] 11:45:17 Test Item Value Reference Range Interpretation Comments Hep B Core Total Ab (test Nonreactive Nonreactive code = 30501-3) RUSLAN (test code = RUSLAN) Waist Pleater ID - DB Lab Interpretation (test Normal code = 02844-1) [facility], [id number] 11:45:17 Test Item Value Reference Range Interpretation Comments Hep A IgM (test code = Nonreactive Nonreactive 73125-3) RUSLAN (test code = RUSLAN) Waist Pleater ID - DB Lab Interpretation (test Normal code = 41273-3) [facility] C [id number] 11:45:17 Test Item Value Reference Range Interpretation Comments Hepatitis C Ab (test code = Nonreactive Nonreactive 87232-7) RUSLAN (test code = RUSLAN) Waist Pleater ID - DB Lab Interpretation (test Normal code = 12078-7) [facility] B core antibody, [id number] 11:45:17 Test Item Value Reference Range Interpretation Comments Hep B Core Total Ab (test Nonreactive Nonreactive code = 34901-1) RUSLAN (test code = RUSLAN) Waist Pleater ID - DB Lab Interpretation (test Normal code = 43738-0) [facility], [id number] 11:45:17 Test Item Value Reference Range Interpretation Comments Hep A IgM (test code = Nonreactive Nonreactive 53186-8) RUSLAN (test code = RUSLAN) Waist Pleater ID - DB Lab Interpretation (test Normal code = 71097-2) [facility] C [id number] 11:45:17 Test Item Value Reference Range Interpretation Comments Hepatitis C Ab (test code = Nonreactive Nonreactive 16351-8) RUSLAN (test code = RUSLAN) Waist Pleater ID - DB Lab Interpretation (test Normal code = 00221-5) [facility], [id number] 11:45:17 Test Item Value Reference Range Interpretation Comments Hep A IgM (test code = Nonreactive Nonreactive 53364-1) RUSLAN (test code = RUSLAN) Waist Pleater ID - DB Lab Interpretation (test Normal code = 46203-9) [facility] C [id number] 11:45:17 Test Item Value Reference Range Interpretation Comments Hepatitis C Ab (test code = Nonreactive Nonreactive 46628-2) RUSLAN (test code = RUSLAN) Waist Pleater ID - DB Lab Interpretation (test Normal code = 72260-0) [facility] B core antibody, [id number] 11:45:17 Test Item Value Reference Range Interpretation Comments Hep B Core Total Ab (test Nonreactive Nonreactive code = 29910-6) RUSLAN (test code = RUSLAN) Waist Pleater ID - DB Lab Interpretation (test Normal code = 97049-6) [facility] C [id number] 11:45:17 Test Item Value Reference Range Interpretation Comments HEPATITIS C ANTIBODY (BEAKER) Nonreactive Nonreactive (test code = 367) Waist Pleater ID - DBHEPATITIS A ANTIBODY, [id number] 11:45:17 Test Item Value Reference Range Interpretation Comments HEPATITIS A IGM ANTIBODY (BEAKER) Nonreactive Nonreactive (test code = 498) Waist Pleater ID - [facility] CORE ANTIBODY, [id number] 11:45:17 Test Item Value Reference Range Interpretation Comments HEPATITIS B CORE TOTAL ANTIBODY Nonreactive Nonreactive (BEAKER) (test code = 497) Waist Pleater ID - [facility] B surface [id number] 11:45:12 Test Item Value Reference Range Interpretation Comments Hepatitis B surface Nonreactive Nonreactive antigen (test code = 5195-3) RUSLAN (test code = RUSLAN) Specimen is considered negative for HBsAg. Lab Interpretation (test Normal code = 06560-2) [facility] B surface [id number] 11:45:12 Test Item Value Reference Range Interpretation Comments Hepatitis B surface Nonreactive Nonreactive antigen (test code = 5195-3) RUSLAN (test code = RUSLAN) Specimen is considered negative for HBsAg. Lab Interpretation (test Normal code = 49765-3) [facility] B surface [id number] 11:45:12 Test Item Value Reference Range Interpretation Comments Hepatitis B surface Nonreactive Nonreactive antigen (test code = 5195-3) RUSLAN (test code = RUSLAN) Specimen is considered negative for HBsAg. Lab Interpretation (test Normal code = 76317-7) [facility] B surface [id number] 11:45:12 Test Item Value Reference Range Interpretation Comments Hepatitis B surface Nonreactive Nonreactive antigen (test code = 5195-3) RUSLAN (test code = RUSLAN) Specimen is considered negative for HBsAg. Lab Interpretation (test Normal code = 39638-4) [facility] B SURFACE [id number] 11:45:12 Test Item Value Reference Range Interpretation Comments HEPATITIS B SURFACE ANTIGEN (2) Nonreactive Nonreactive (BEAKER) (test code = 2585) Specimen is considered negative for HBsAg.Hepatitis B core antibody, IgM 2021-09-25 19:51:14 Test Item Value Reference Range Interpretation Comments Hep B C IgM (test code = 55542-4) Nonreactive Nonreactive Lab Interpretation (test code = Normal 60842-9) [facility] panel, [id number] 19:51:14 Test Item Value Reference Range Interpretation Comments Hep A IgM (test code = Nonreactive Nonreactive 12956-4) Hep B C IgM (test code = Nonreactive Nonreactive 24521-8) Hepatitis C Ab (test code = Nonreactive Nonreactive 22512-0) Hepatitis B surface antigen Nonreactive Nonreactive (test code = 5195-3) RUSLAN (test code = RUSLAN) Waist Pleater ID - DB Lab Interpretation (test Normal code = 56587-1) [facility] B core antibody, [id number] 19:51:14 Test Item Value Reference Range Interpretation Comments Hep B C IgM (test code = 45095-6) Nonreactive Nonreactive Lab Interpretation (test code = Normal 79104-8) [facility] panel, [id number] 19:51:14 Test Item Value Reference Range Interpretation Comments Hep A IgM (test code = Nonreactive Nonreactive 32941-8) Hep B C IgM (test code = Nonreactive Nonreactive 66704-9) Hepatitis C Ab (test code = Nonreactive Nonreactive 15311-7) Hepatitis B surface antigen Nonreactive Nonreactive (test code = 5195-3) RUSLAN (test code = RUSLAN) Waist Pleater ID - DB Lab Interpretation (test Normal code = 47440-5) [facility], [id number] 19:51:14 Test Item Value Reference Range Interpretation Comments Hep B C IgM (test code = 92759-9) Nonreactive Nonreactive Lab Interpretation (test code = Normal 67760-4) [facility] panel, [id number] 19:51:14 Test Item Value Reference Range Interpretation Comments Hep A IgM (test code = Nonreactive Nonreactive 23790-4) Hep B C IgM (test code = Nonreactive Nonreactive 08047-9) Hepatitis C Ab (test code = Nonreactive Nonreactive 23361-9) Hepatitis B surface antigen Nonreactive Nonreactive (test code = 5195-3) RUSLAN (test code = RUSLAN) Waist Pleater ID - DB Lab Interpretation (test Normal code = 16566-6) [facility] panel, [id number] 19:51:14 Test Item Value Reference Range Interpretation Comments Hep A IgM (test code = Nonreactive Nonreactive 87682-7) Hep B C IgM (test code = Nonreactive Nonreactive 65634-1) Hepatitis C Ab (test code = Nonreactive Nonreactive 52354-8) Hepatitis B surface antigen Nonreactive Nonreactive (test code = 5195-3) RUSLAN (test code = RUSLAN) Waist Pleater ID - DB Lab Interpretation (test Normal code = 71062-5) [facility], [id number] 19:51:14 Test Item Value Reference Range Interpretation Comments Hep B C IgM (test code = 84058-8) Nonreactive Nonreactive Lab Interpretation (test code = Normal 08400-7) [facility] PANEL, [id number] 19:51:14 Test Item Value Reference Range Interpretation Comments HEPATITIS A IGM ANTIBODY (BEAKER) Nonreactive Nonreactive (test code = 498) HEPATITIS B CORE IGM ANTIBODY Nonreactive Nonreactive (BEAKER) (test code = 645) HEPATITIS C ANTIBODY (BEAKER) Nonreactive Nonreactive (test code = 367) HEPATITIS B SURFACE ANTIGEN (2) Nonreactive Nonreactive (BEAKER) (test code = 2585) Waist Pleater ID - DBHEPATITIS A ANTIBODY, [id number] 19:51:14 Test Item Value Reference Range Interpretation Comments HEPATITIS A IGM ANTIBODY (BEAKER) Nonreactive Nonreactive (test code = 498) HEPATITIS B CORE ANTIBODY, [id number] 19:51:14 Test Item Value Reference Range Interpretation Comments HEPATITIS B CORE IGM ANTIBODY Nonreactive Nonreactive (BEAKER) (test code = 645) HEPATITIS B SURFACE [id number] 19:51:14 Test Item Value Reference Range Interpretation Comments HEPATITIS B SURFACE ANTIGEN (2) Nonreactive Nonreactive (BEAKER) (test code = 2585) Specimen is considered negative for HBsAg.HEPATITIS C [id number] 19:51:14 Test Item Value Reference Range Interpretation Comments HEPATITIS C ANTIBODY (BEAKER) Nonreactive Nonreactive (test code = 367) SARS-COV2/RT-PCR ([facility])2019-11-14 17:47:00 Test Item Value Reference Range Interpretation Comments SARS-COV2/RT-PCR (test code = Negative Not Detected, Negative [id number]) SARS-COV-2 PERFORMING LAB [facility] (test code = 2306193) Negative results do not preclude SARS-CoV-2 infection [...] of the Act.Fact Sheet for Healthcare Pro viders:https://www.[employer]arseer/Documents/Xpert%20Xpress%20SARS%20CoV-2/Fact%20Sh eets/302-3802%65LSWH-KCY-3%20HEALTHCARE%20PROVIDERS%20FACT%20SHEET.pdfFact Sheet for Healthcare Patients:https://www.[employer]/Documents/Xpert%20Xpress%20SARS%20CoV-2/Fact%20Sheets/302-3801%20SARS-COV -2%20PATIENT%20FACT%20SHEET.pdfPerforming Laboratory:[place] [address] [address] Lopez[place], [place] [address]YKG W/PLT COUNT & AUTO DIFFERENTIAL 2018-08-10 08:25:00 [...] 3438) Received comment: User comments: Slide comments:RETICULOCYTE [id number] 08:06:00 Test Item Value Reference Range Interpretation Comments RETICULOCYTE COUNT PCT (BEAKER) (test 25.0 % 0.5-1.7 H code = 575) CBC W/PLT COUNT & AUTO [id number] 09:27:00 Test Item Value Reference Range Interpretation [...] 3438) Received comment: User comments: Slide comments:RETICULOCYTE [id number] 05:01:00 Test Item Value Reference Range Interpretation Comments RETICULOCYTE COUNT PCT (BEAKER) (test 21.6 % 0.5-1.7 H code = 575) CBC W/PLT COUNT & AUTO [id number] 15:17:00 Test Item Value Reference Range Interpretation [...] H (BEAKER) (test code = 413) RETICULOCYTE [id number] 08:44:00 Test Item Value Reference Range Interpretation Comments RETICULOCYTE COUNT PCT (BEAKER) (test 23.8 % 0.5-1.7 H code = 575) BLOOD [id number] 14:01:00 Test Item Value Reference Range Interpretation Comments CULTURE (BEAKER) (test No growth in 5 days code = 1095) BLOOD [id number] 12:01:00 Test Item Value Reference Range Interpretation Comments CULTURE (BEAKER) (test No growth in 5 days code = 1095) CBC W/PLT COUNT & AUTO [id number] 11:38:00 Test Item Value Reference Range Interpretation [...] 3438) Received comment: User comments: Slide comments:RETICULOCYTE [id number] 07:44:00 Test Item Value Reference Range Interpretation Comments RETICULOCYTE COUNT PCT (BEAKER) (test 27.0 % 0.5-1.7 H code = 575) RETICULOCYTE [id number] 07:19:00 Test Item Value Reference Range Interpretation Comments RETICULOCYTE COUNT PCT (BEAKER) (test 22.7 % 0.5-1.7 H code = 575) CBC W/PLT COUNT & AUTO [id number] 12:07:00 Test Item Value Reference Range Interpretation [...] 3438) Received comment: User comments: Slide comments:RETICULOCYTE [id number] 06:14:00 Test Item Value Reference Range Interpretation Comments RETICULOCYTE COUNT PCT (BEAKER) (test 21.9 % 0.5-1.7 H code = 575) [id number] 06:02:00 Test Item Value Reference Range Interpretation Comments PHOSPHORUS (BEAKER) (test code = 3.8 mg/dL 2.3-4.7 604) [id number] 06:02:00 Test Item Value Reference Range Interpretation Comments MAGNESIUM (BEAKER) (test code = 1.8 mg/dL 1.6-2.6 627) BASIC METABOLIC [id number] 06:02:00 Test Item Value Reference Range Interpretation [...] Specimen moderately ictericCBC W/PLT COUNT & AUTO [id number] 09:09:00 Test Item Value Reference Range Interpretation [...] = 3438) Received comment: User comments: Slide comments:[id number] 04:11:00 Test Item Value Reference Range Interpretation Comments PHOSPHORUS (BEAKER) (test code = 3.3 mg/dL 2.3-4.7 604) [id number] 04:11:00 Test Item Value Reference Range Interpretation Comments MAGNESIUM (BEAKER) (test code = 1.6 mg/dL 1.6-2.6 627) BASIC METABOLIC [id number] 04:11:00 Test Item Value Reference Range Interpretation [...] FOR DIALYSIS PATIEN TS. Specimen slightly ictericRETICULOCYTE [id number] 03:54:00 Test Item Value Reference Range Interpretation Comments RETICULOCYTE COUNT PCT (BEAKER) (test 20.4 % 0.5-1.7 H code = 575) CBC W/PLT COUNT & AUTO [id number] 18:30:00 Test Item Value Reference Range Interpretation [...] = 413) CBC W/PLT COUNT & AUTO [id number] 10:51:00 Test Item Value Reference Range Interpretation [...] 3438) Received comment: User comments: Slide comments:RETICULOCYTE [id number] 10:08:00 Test Item Value Reference Range Interpretation Comments RETICULOCYTE COUNT PCT (BEAKER) (test 14.4 % 0.5-1.7 H code = 575) CBC W/PLT COUNT & AUTO [id number] 09:30:00 Test Item Value Reference Range Interpretation [...] = 3438) Received comment: User comments: Slide comments:[id number] 03:32:00 Test Item Value Reference Range Interpretation Comments PHOSPHORUS (BEAKER) (test code = 3.5 mg/dL 2.3-4.7 604) [id number] 03:32:00 Test Item Value Reference Range Interpretation Comments MAGNESIUM (BEAKER) (test code = 1.8 mg/dL 1.6-2.6 627) BASIC METABOLIC [id number] 03:32:00 Test Item Value Reference Range Interpretation [...] ictericCT, CHEST WITH IV CONTRAST- PE TEST [id number] 14:01:00FINAL REPORT CT scan of the chest. [...] MDReport Verified Date/Time: 08/02/2018 14:01:29 Reading Location: [address] Ortho Consult Reading Room URINALYSIS W/ REFLEX [...] 516) SOURCE(BEAKER) (test code = 2795) SCREEN, [id number] 11:15:00 Test Item Value Reference Range Interpretation Comments TEST URINE (BEAKER) (test Negative code = 583) RETICULOCYTE [id number] 04:43:00 Test Item Value Reference Range Interpretation Comments RETICULOCYTE COUNT PCT (BEAKER) (test 13.2 % 0.5-1.7 H code = 575) RAD, CHEST, 2 [id number] 03:54:00Reason for exam:->SICKLE CELL PAIN CRISISIs the [...] MDReport Verified Date/Time: 08/02/2018 03:54:52 Reading Location: [address] Reading Room CBC W/PLT COUNT & AUTO [id number] 03:04:00 Test Item Value Reference Range Interpretation [...] (BEAKER) (test code = 417) COMPREHENSIVE METABOLIC [id number] 02:42:00 Test Item Value Reference Range Interpretation [...] = 358) GLUCOSE RANDOM 104 mg/dL 70-110 (HD BiosciencesAKER) (test code = 652) CALCIUM (BEAKER) 9.5 mg/dL 8.5-10.5 (test code = 697) AST (SGOT) (HD BiosciencesAKER) 25 U/L 5-40 (test code = 353) ALT (SGPT) (HD BiosciencesAKER) 18 U/L 5-50 (test code = 347) EGFR (HD BiosciencesAKER) (test 221 ESTIMATE D GFR IS code = 1092) mL/min/1.73 sq NOT ACCURA TE m CREATININE CLEARANCE IN PREDICTING GLOMERULAR FILTRATION RATE . ESTIMATED GFR I S NOT APPLICABLE FOR DIALYSIS PATIEN TS.
[2022-03-27] MEDS ORDERED: DIPHENHYDRAMINE 50 MG/ML VIAL ONE (19:21)
[2022-03-27] MEDS ORDERED: METOCLOPRAMIDE 10 MG/2mL INJ ONE (19:21)
[2022-03-27] MEDS ORDERED: HYDROMORPHONE HCL 1 MG/ML INJ ONE (19:22)
[2022-03-27] MEDS ORDERED: KETOROLAC 30 MG/ML INJ ONE (19:22)
[2022-03-27] MEDS ORDERED: NACHLORIDE 0.45% 1,000 ML IV ONE (19:22)
[2022-03-27 20:46] LABS: Absolute Lymphocytes (CBC) 0.7 K/uL (0.7-4.9); Lymphocytes % 2.5 % (15.3-44.8); MCV 94.1 fL (80-100); MPV 7.8 fL (7.6-11.3); RBC Red Blood Cell Count 2.97 M/uL (3.86-4.86)
[2022-03-27 21:33] LABS: Urine Blood 2+ (Negative); Urine Glucose Negative (Negative); Urine Protein 1+ (Negative)
[2022-03-27 21:45] LABS: Albumin 3.9 g/dL (3.4-5.0); Bilirubin Total 2.4 mg/dL (0.2-1.0); Potassium 3.4 mmol/L (3.5-5.1); Protein, Total 7.7 g/dL (6.4-8.2)
[2022-03-27] MEDS ORDERED: HYDROMORPHONE HCL 0.5 MG/0.5 ML INJ ONE (21:59)
[2022-03-27 22:00] LABS: Blood Morphology Comment NOT SEEN (NOT SEEN); Platelet Estimate INCR; Platelets, Giant PRESENT
[2022-03-27 22:14] LABS: Specific Gravity 1.012 (1.005-1.030); Urine Bilirubin NEGATIVE (Negative); Urine Blood 3+ (OVER) (Negative); Urine Clarity Turbid (Clear); Urine Color Yellow (Yellow); Urine Glucose NEGATIVE (Negative); Urine Mucus 1+ /HPF (None Seen); Urine Protein 1+ (Negative); Urine RBC 21-50 /HPF (None Seen); Urine Urobilinogen Normal (Normal); Urine WBC Clump Rare /HPF (None Seen)
--- NOTE | 2022-03-27 22:17 | ER ---
Nurse's Notes [facility] Name: Gume Ortega Age: 31 yrs Sex: Female : 1990 Arrival Date: 03/27/2022 Time: 18:37 Bed 8 Private MD: Neil Benitez E Diagnosis: Other sickle-cell disorders with crisis;Nausea with vomiting, unspecified Presentation: 03/27 19:07 Chief complaint: Patient states: Pain all over and vomiting since this morning. jl7 Coronavirus screen: At this time, the client does not indicate any symptoms associated with coronavirus-19. Ebola Screen: No symptoms or risks identified at this time. Initial Sepsis Screen: Does the patient meet any 2 criteria? No. Patient's initial sepsis screen is negative. Does the patient have a suspected source of infection? No. Patient's initial sepsis screen is negative. Risk Assessment: Do you want to hurt yourself or someone else? Patient reports no desire to harm self or others. Onset of symptoms was March 27, 2022. 19:07 Method Of Arrival: Wheelchair jl7 19:07 Acuity: MARILUZ 3 jl7 Triage Assessment: 19:09 General: Appears in no apparent distress. uncomfortable, Behavior is cooperative, jl7 agitated, fussy. Pain: Complains of pain in all over Pain currently is 10 out of 10 on a pain scale. GI: Reports nausea, vomiting. 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 - Social history:: Smoking status: Patient denies any tobacco usage or history of. Patient uses street drugs, marijuana. - Family history:: not pertinent. Screenin:29 Abuse screen: Denies threats or abuse. Denies injuries from another. Nutritional kd3 screening: No deficits noted. Tuberculosis screening: No symptoms or risk factors identified. Fall Risk None identified. Assessment: 20:05 General: Appears uncomfortable, Behavior is calm, cooperative. Neuro: Level of kd3 Consciousness is awake, alert, obeys commands, Oriented to person, place, time, situation. Respiratory: Airway is patent Trachea midline Respiratory effort is even, unlabored, Respiratory pattern is regular, symmetrical. GI: Pt is actively vomiting. 20:05 Pain: Complains of pain in generalized pain. Cardiovascular: Patient's skin is warm and kd3 dry. 20:33 General: lab at bedside . kd3 22:03 Reassessment: Patient and/or family updated on plan of care and expected duration. Pain kd3 level reassessed. Patient is alert, oriented x 3, equal unlabored respirations, skin warm/dry/pink. Patient states feeling better. Patient states symptoms have improved. General: Appears uncomfortable, Behavior is calm, cooperative. Neuro: Level of Consciousness is awake, alert, obeys commands, Oriented to person, place, time, situation. Respiratory: Airway is patent Trachea midline Respiratory effort is even, unlabored, Respiratory pattern is regular, symmetrical. 03/28 13:36 Reassessment: attempted to call report to second floor. kc6 Vital Signs: 03/27 19:07 BP 135 / 69; Pulse 100; Resp 24; Temp 98.1; Pulse Ox 100% on R/A; Weight 70.76 kg; jl7 Height 5 ft. 2 in. (157.48 cm); Pain 10/10; 20:31 BP 140 / 73; Pulse 54; Resp 16 S; Pulse Ox 100% on R/A; kd3 22:02 BP 100 / 56; Pulse 65; Resp 18; Pulse Ox 100% on R/A; kd3 19:07 Body Mass Index 28.53 (70.76 kg, 157.48 cm) jl7 ED Course: 18:37 Patient arrived in ED. am2 18:37 Neil Benitez MD is Private Physician. am2 19:07 Phillip Manuel MD is Attending Physician. rt 19:09 Triage completed. jl7 19:09 Arm band placed on right wrist. jl7 19:12 Acacia Andersen, SHYAM is Primary Nurse. kd3 21:18 CMP Sent. kd3 21:18 Lipase Sent. kd3 21:18 Test, Serum Sent. kd3 21:18 UA MICROSCOPIC Sent. kd3 21:18 UA Sent. kd3 21:18 LDH Sent. kd3 21:19 Patient has correct armband on for positive identification. kd3 22:16 Macie Lakhani PA-C is Hospitalizing Provider. rt 03/28 13:59 No provider procedures requiring assistance completed. Patient admitted, IV remains in kc6 place. Administered Medications: 03/27 19:51 Drug: Reglan (metoCLOPramide) 10 mg Route: IVP; Site: Port-a-cath; kd3 21:17 Follow up: Response: No adverse reaction; Pain is decreased kd3 19:51 Drug: Benadryl (diphenhydrAMINE) 25 mg Route: IVP; Site: Port-a-cath; kd3 21:17 Follow up: Response: No adverse reaction; Nausea is decreased kd3 19:51 Drug: Dilaudid (HYDROmorphone) 1 mg Route: IVP; Site: Port-a-cath; kd3 21:18 Follow up: Response: No adverse reaction; Pain is decreased kd3 19:51 Drug: Ketorolac 30 mg Route: IVP; Site: Port-a-cath; kd3 21:18 Follow up: Response: No adverse reaction; Pain is decreased kd3 19:51 Drug: NS 0.45 % 1000 ml Route: IV; Rate: bolus; Site: Port-a-cath; kd3 20:37 Drug: Dilaudid (HYDROmorphone) 1 mg Route: IVP; Site: Port-a-cath; kd3 21:18 Follow up: Response: No adverse reaction; Pain is decreased kd3 22:02 Drug: Dilaudid (HYDROmorphone) 0.5 mg Route: IVP; Site: Port-a-cath; kd3 Medication: 21:19 VIS not applicable for this client. kd3 Outcome: 22:16 Decision to Hospitalize by Provider. rt 03/28 13:59 Admitted to Med/surg accompanied by tech, via stretcher, room 211, with chart, Report kc6 called to Dana Blackwell RN Condition: stable Instructed on the need for admit. 14:18 Patient left the ED. kc6 Signatures: Mateusz Butler RN RN jl7 Ching Matt Kyli, RN RN kd3 Janine Pride RN RN kc6 Phillip Manuel MD MD rt
--- NOTE | 2022-03-27 22:17 | EDPHYS ---
Physician Documentation [facility] Name: Gume Ortega Age: 31 yrs Sex: Female : 1990 Arrival Date: 03/27/2022 Time: 18:37 Bed 8 Private MD: Neil Bneitez E ED Physician Phillip Manuel HPI: 03/27 19:19 This 31 yrs old Black Female presents to ER via Wheelchair with complaints of Sickle rt Cell Crisis, Vomiting, Shortness Of Breath. 19:19 Onset: The symptoms/episode began/occurred 1 day(s) ago. The symptoms are aggravated by rt nothing. The symptoms are alleviated by nothing. Associated signs and symptoms: Pertinent negatives: abdominal pain. Severity of symptoms: At their worst the symptoms were moderate. With known sickle cell disease presents to the ED with pain all over her body unrelieved with her home medications. She also reports nausea vomiting today without significant abdominal pain. This is not typical of her sickle cell pain crises. The patient denies fever, chills, chest pain. Denies other acute complaints at this time, symptoms are moderate in severity, no other aggravating or alleviating factors.. 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 - Social history:: Smoking status: Patient denies any tobacco usage or history of. Patient uses street drugs, marijuana. - Family history:: not pertinent. ROS: 19:19 Eyes: Negative for injury, pain, redness, and discharge, ENT: Negative for injury, rt pain, and discharge, Neck: Negative for injury, pain, and swelling, Cardiovascular: Negative for chest pain, palpitations, and edema, Respiratory: Negative for shortness of breath, cough, wheezing, and pleuritic chest pain, : Negative for injury, bleeding, discharge, and swelling, MS/Extremity: Negative for injury and deformity, Skin: Negative for injury, rash, and discoloration, Neuro: Negative for headache, weakness, numbness, tingling, and seizure, Psych: Negative for depression, anxiety, suicide ideation, homicidal ideation, and hallucinations. 19:19 Constitutional: Positive for body aches, Negative for fever. 19:19 Abdomen/GI: Positive for nausea and vomiting, Negative for abdominal pain. Exam: 19:19 Constitutional: This is a well developed, well nourished patient who is awake, alert, rt and in no acute distress. Head/Face: Normocephalic, atraumatic. Eyes: Pupils equal round and reactive to light, extra-ocular motions intact. Lids and lashes normal. Conjunctiva and sclera are non-icteric and not injected. Cornea within normal limits. Periorbital areas with no swelling, redness, or edema. ENT: Nares patent. No nasal discharge, no septal abnormalities noted. Tympanic membranes are normal and external auditory canals are clear. Oropharynx with no redness, swelling, or masses, exudates, or evidence of obstruction, uvula midline. Mucous membranes moist. Neck: Trachea midline, no thyromegaly or masses palpated, and no cervical lymphadenopathy. Supple, full range of motion without nuchal rigidity, or vertebral point tenderness. No Meningismus. Chest/axilla: Normal chest wall appearance and motion. Nontender with no deformity. No lesions are appreciated. Cardiovascular: Regular rate and rhythm with a normal S1 and S2. No gallops, murmurs, or rubs. Normal PMI, no JVD. No pulse deficits. Respiratory: Lungs have equal breath sounds bilaterally, clear to auscultation and percussion. No rales, rhonchi or wheezes noted. No increased work of breathing, no retractions or nasal flaring. Abdomen/GI: Soft, non-tender, with normal bowel sounds. No distension or tympany. No guarding or rebound. No evidence of tenderness throughout. Skin: Warm, dry with normal turgor. Normal color with no rashes, no lesions, and no evidence of cellulitis. MS/ Extremity: Pulses equal, no cyanosis. Neurovascular intact. Full, normal range of motion. Neuro: Awake and alert, GCS 15, oriented to person, place, time, and situation. Cranial nerves II-XII grossly intact. Motor strength 5/5 in all extremities. Sensory grossly intact. Cerebellar exam normal. Normal gait. Psych: Awake, alert, with orientation to person, place and time. Behavior, mood, and affect are within normal limits. Vital Signs: 19:07 BP 135 / 69; Pulse 100; Resp 24; Temp 98.1; Pulse Ox 100% on R/A; Weight 70.76 kg; jl7 Height 5 ft. 2 in. (157.48 cm); Pain 10/10; 20:31 BP 140 / 73; Pulse 54; Resp 16 S; Pulse Ox 100% on R/A; kd3 22:02 BP 100 / 56; Pulse 65; Resp 18; Pulse Ox 100% on R/A; kd3 19:07 Body Mass Index 28.53 (70.76 kg, 157.48 cm) jl7 MDM: 19:08 Patient medically screened. rt 22:17 Differential diagnosis: sickle cell pain crisis, infection, acute chest syndrome, rt pancreatitis. Data reviewed: vital signs, nurses notes, old medical records, lab test result(s). 03/27 19:14 Order name: CBC with Diff; Complete Time: 22:18 rt 03/27 19:14 Order name: CMP; Complete Time: 21:54 rt 03/27 19:14 Order name: Lipase; Complete Time: 21:54 rt 03/27 19:14 Order name: Test, Serum; Complete Time: 21:54 rt 03/27 19:14 Order name: UA; Complete Time: 22:18 rt 03/27 19:14 Order name: UA MICROSCOPIC rt 03/27 19:14 Order name: LDH; Complete Time: 21:54 rt 03/27 19:14 Order name: Retic Count; Complete Time: 22:18 rt 03/27 21:33 Order name: Urine Dipstick-Ancillary; Complete Time: 21:44 EDMS 03/27 21:43 Order name: Urine --Ancillary (enter results); Complete Time: 21:54 mw2 03/27 22:00 Order name: Manual Differential; Complete Time: 22:18 EDMS 03/27 22:15 Order name: COVID-19 SARS RT PCR rt 03/27 22:18 Order name: Urine Culture EDMS 03/28 05:06 Order name: CBC with Automated Diff EDMS 03/28 05:06 Order name: Retic Count EDMS 03/28 05:09 Order name: Basic Metabolic Panel EDMS 03/28 05:09 Order name: Phosphorus EDMS 03/28 05:09 Order name: Magnesium EDMS 03/28 11:00 Order name: RAD EDMS Administered Medications: 19:51 Drug: Reglan (metoCLOPramide) 10 mg Route: IVP; Site: Port-a-cath; kd3 21:17 Follow up: Response: No adverse reaction; Pain is decreased kd3 19:51 Drug: Benadryl (diphenhydrAMINE) 25 mg Route: IVP; Site: Port-a-cath; kd3 21:17 Follow up: Response: No adverse reaction; Nausea is decreased kd3 19:51 Drug: Dilaudid (HYDROmorphone) 1 mg Route: IVP; Site: Port-a-cath; kd3 21:18 Follow up: Response: No adverse reaction; Pain is decreased kd3 19:51 Drug: Ketorolac 30 mg Route: IVP; Site: Port-a-cath; kd3 21:18 Follow up: Response: No adverse reaction; Pain is decreased kd3 19:51 Drug: NS 0.45 % 1000 ml Route: IV; Rate: bolus; Site: Port-a-cath; kd3 20:37 Drug: Dilaudid (HYDROmorphone) 1 mg Route: IVP; Site: Port-a-cath; kd3 21:18 Follow up: Response: No adverse reaction; Pain is decreased kd3 22:02 Drug: Dilaudid (HYDROmorphone) 0.5 mg Route: IVP; Site: Port-a-cath; kd3 Disposition Summary: 03/27/22 22:16 Hospitalization Ordered Hospitalization Status: Inpatient Admission rt Provider: Macie Lakhani rt Condition: Stable rt Problem: an acute exacerbation rt Symptoms: have improved rt Bed/Room Type: Standard rt Location: Telemetry/MedSurg (Inpatient)(03/28/22 13:21) bd Room Assignment: 211(03/28/22 13:21) bd Diagnosis - Other sickle-cell disorders with crisis rt - Nausea with vomiting, unspecified rt Forms: - Medication Reconciliation Form rt - SBAR form rt Signatures: Dispatcher [employer] EDCarol Ann Dietrich Cindy RN RN Mateusz Dang RN RN jl7 Acacia Andersen RN RN kd3 Phillip Manuel MD MD rt Corrections: (The following items were deleted from the chart) 23:38 22:16 Telemetry/MedSurg (observation) rt cg 23:38 22:16 rt cg 03/28 13:21 03/27 23:38 [facility] ER HOLD cg bd 03/28 13:21 03/27 23:38 ERHOLD- cg bd
--- NOTE | 2022-03-27 23:40 | P.HP ---
Certification for Inpatient Patient admitted to: Inpatient With expected LOS: >2 Midnights Patient will require the following post-hospital care: None Practitioner: I am a practitioner with admitting privileges, knowledge of patient current condition, hospital course, and medical plan of care. Services: Services provided to patient in accordance with Admission requirements found in Title 42 Section 412.3 of the Code of Federal Regulations Patient History Date of Service: 03/28/22 Reason for admission: Sickle Cell Crisis History of Present Illness: Patient is a 31-year-old female with history of sickle cell anemia and previous pulmonary embolism on chronic anticoagulation therapy who presented to the emergency department for acute generalized pain and suspected sickle cell crisis. She reports her pain began this morning with associated nausea and vomiting which she reports is not atypical for her during sickle cell crisis. She denies any fever, chills or other new/acute symptoms other than generalized pain. Her labs were significant for WBC 29.9, hgb 9.4, 5.4% retic, potassium 3.4, tibi 2.4, urine positive for UTI. Patient still with significant pain after multiple rounds of IV narcotic pain medication. ED provider wishes to admit for sickle cell crisis. Allergies ondansetron HCl [From Zofran] Allergy (Mild, Verified 03/28/22 00:34) Nausea/Vomiting fentanyl [From Sublimaze (PF)] Allergy (Verified 03/28/22 00:34) Anaphylaxis morphine Allergy (Verified 03/28/22 00:34) Nausea/Vomiting Sulfa (Sulfonamide Antibiotics) Allergy (Verified 03/28/22 00:34) Nausea/Vomiting Home medications list reviewed: Yes Home Medications: Folic Acid [Folic Acid*] 1 mg PO DAILY 08/01/12 Cholecalciferol (Vitamin D3) [Vitamin D 1000 Iu Tab*] 1,000 unit PO EVERY 7TH DAY 09/30/20 Apixaban [Eliquis *] 2.5 mg PO BID #60 tablet 12/21/20 Hydromorphone HCl [Dilaudid] 8 mg PO TID PRN 30 Days #60 tablet 10/25/21 Polyethyl Gly 3350 [Glycolax*] 17 gm PO DAILYPRN PRN #30 udbot 10/26/21 Promethazine Tab [Phenergan*] 25 mg PO Q4H PRN #30 tab 10/26/21 Ascorbic Acid [Vitamin C*] 500 mg PO DAILY 12/06/21 Voxelotor [Oxbryta] 500 mg PO DAILY 12/14/21 - Past Medical/Surgical History Diabetic: No -: Sickle Cell Anemia -: Pulmonary Embolism -: port-a-cath placement Psychosocial/ Personal History: Patient lives at home with her girlfriend - Family History Mother -: Other (see notes) Notes: sickle cell trait Father -: Other (see notes) Notes: sickle cell trait - Social History Smoking Status: Never smoker Alcohol use: No CD- Drugs: Yes Caffeine use: No Place of Residence: Home Review of Systems Respiratory: Shortness of Breath Gastrointestinal: Nausea, Vomiting, Abdominal Pain Physical Examination - Physical Exam General: Alert, In no apparent distress HEENT: Atraumatic, PERRLA, EOMI, Sclerae nonicteric Neck: Supple, 2+ carotid pulse no bruit, No LAD, Without JVD or thyroid abnormality Respiratory: Clear to auscultation bilaterally, Normal air movement Cardiovascular: Regular rate/rhythm, Normal S1 S2 Gastrointestinal: Normal bowel sounds, No tenderness Musculoskeletal: No tenderness Integumentary: No rashes Neurological: Normal speech, Normal strength at 5/5 x4 extr, Normal tone, Normal affect - Studies Laboratory Data (last 24 hrs) 03/27/22 21:02: Sodium 141, Potassium 3.4 L, BUN 6 L, Creatinine 0.58, Glucose 94, Total Bilirubin 2.4 H, AST 19, ALT 26, Alkaline Phosphatase 77, Lipase 41 L 03/27/22 20:28: WBC 29.90 H*, Hgb 9.4 L, Hct 28.0 L, Plt Count 558 H Assessment and Plan - Problems (Diagnosis) (1) Anemia, sickle cell with crisis Current Visit: Yes Status: Acute (2) History of pulmonary embolism Current Visit: Yes Status: Chronic (3) UTI (urinary tract infection) Current Visit: Yes Status: Acute Qualifiers: Urinary tract infection type: acute cystitis Hematuria presence: with hematuria Qualified Code(s): N30.01 - Acute cystitis with hematuria - Plan Supportive measures with Dilaudid, phenegran, benadryl, supplemental oxygen, IV fluids. Daily labs with reticulocyte count. Chest xray pending. Patient denies chest pain. Patient denies any fever, chills or other new ROS findings aside from acute generalized pain similar to her previous sickle cell crisis. Continue rocephin for UTI. Monitor and replete electrolytes per protocol. Reconcile and continue home medications. Continue Eliquis 2.5 mg p.o. twice daily, patient has been compliant with this medication. Full code. Discharge Plan: Home Plan to discharge in: Greater than 2 days - Advance Directives Does patient have a Living Will: No Does patient have a Durable POA for Healthcare: No - Code Status/Comfort Care Code Status Assessed: Yes (Full) Critical Care: No Time Spent Managing Pts Care (In Minutes): 50
[2022-03-28] MEDS: NA CHLORIDE 0.9% 1,000 ML IV SCH ×3 (00:35→22:41)
[2022-03-28] MEDS ORDERED: ACETAMINOPHEN 500 MG TAB PO PRN (00:35)
[2022-03-28] MEDS ORDERED: ALBUTEROL 2.5 MG/3 ML NEB SOL NEB PRN ×2 (00:35→16:00)
[2022-03-28] MEDS: HYDROMORPHONE HCL 1 MG/ML INJ IV PRN ×6 (00:48→21:06)
[2022-03-28] MEDS: PROMETHAZINE INJ 25 MG/ML AMP IV PRN ×3 (00:49→21:06)
[2022-03-28] MEDS ORDERED: IPRATROPIUM BROM 0.5MG/2.5ML ONE (04:10)
[2022-03-28] MEDS ORDERED: ALBUTEROL 2.5 MG/3 ML NEB SOL ONE (04:10)
[2022-03-28] MEDS ORDERED: HYDROMORPHONE HCL 1 MG/ML INJ ONE ×3 (04:46→12:41)
[2022-03-28 05:01] LABS: Absolute Lymphocytes (CBC) 7.6 K/uL (0.7-4.9); Lymphocytes % 30.3 % (15.3-44.8); MCV 93.4 fL (80-100); MPV 7.8 fL (7.6-11.3); RBC Red Blood Cell Count 2.19 M/uL (3.86-4.86)
[2022-03-28 05:06] LABS: Hematocrit 20.5 % (36.0-45.0)
[2022-03-28 05:08] LABS: Magnesium 1.8 mg/dL (1.8-2.4); Phosphorus 3.8 mg/dL (2.5-4.9); Potassium 3.7 mmol/L (3.5-5.1)
[2022-03-28] MEDS: DIPHENHYDRAMINE 50 MG/ML VIAL IV PRN ×2 (05:32→17:13)
[2022-03-28] MEDS ORDERED: DIPHENHYDRAMINE 50 MG/ML VIAL ONE (05:33)
[2022-03-28] MEDS ORDERED: PNEUMOCOCCAL VACCINE 0.5 ML IMVAC ONE (08:00)
[2022-03-28] MEDS ORDERED: INFLUENZA VACCINE (for 6+ mo) 0.5 ML DOSE IMVAC ONE (08:00)
[2022-03-28] MEDS ORDERED: CEFTRIAXONE 1,000 MG in NA CHLORIDE 0.9% 50 ML IVPB SCH (09:00)
[2022-03-28] MEDS ORDERED: APIXABAN 2.5 MG TABLET PO SCH (09:00)
[2022-03-28] MEDS ORDERED: CEFTRIAXONE 1000 MG/VIAL ONE (09:47)
[2022-03-28] MEDS ORDERED: NA CHLORIDE 0.9% 50 ML IV ONE (09:48)
[2022-03-28] MEDS ORDERED: NA CHLORIDE 0.9% 1,000 ML ONE (10:50)
--- NOTE | 2022-03-28 10:59 | RAD REPORT ---
EXAM DESCRIPTION: RAD - Chest Single View - 03/28/2022 2:18 am CLINICAL HISTORY: The patient is 31 years old and is Female; sickle cell crisis TECHNIQUE: Frontal view of the chest. COMPARISON: Chest radiograph September 15, 2021 FINDINGS: LUNGS: Unremarkable. No consolidation. PLEURAL SPACE: Unremarkable. No pneumothorax. HEART: The cardiac silhouette is prominent. MEDIASTINUM: Unremarkable. BONES/JOINTS: Unremarkable. TUBES, LINES AND DEVICES: A left chest port is present with the tip at the SVC/RA junction. UPPER ABDOMEN: Unremarkable as visualized. IMPRESSION: No acute cardiopulmonary process. Electronically signed by: Syeda Colón MD 03/28/2022 2:27 AM COLOR STRIPPER Due to temporary technical issues with the PACS/Fluency reporting system, reports are being signed by the in house radiologists without review as a courtesy to insure prompt reporting. The interpreting radiologist is fully responsible for the content of the report.
[2022-03-28] MEDS ORDERED: HOME MED 1 EA UNK (Hydromorphone Hcl [Dilaudid] 8 MG Tablet) PO PRN (14:58)
[2022-03-28] MEDS: HYDROMORPHONE ORAL 4 MG TAB PO PRN (15:29)
[2022-03-28 15:45] LABS: Absolute Lymphocytes (CBC) 5.3 K/uL (0.7-4.9); Lymphocytes % 30.6 % (15.3-44.8); MCV 92.5 fL (80-100); MPV 7.8 fL (7.6-11.3); RBC Red Blood Cell Count 2.19 M/uL (3.86-4.86)
[2022-03-28 15:55] LABS: Hematocrit 20.2 % (36.0-45.0)
[2022-03-28 15:59] LABS: Albumin 3.3 g/dL (3.4-5.0); Bilirubin Total 2.6 mg/dL (0.2-1.0); Potassium 3.8 mmol/L (3.5-5.1); Protein, Total 6.6 g/dL (6.4-8.2)
[2022-03-28] MEDS ORDERED: POTASSIUM CL SA 10 MEQ TAB PO ONE (17:00)
[2022-03-28] MEDS: APIXABAN 2.5 MG TABLET PO SCH (21:06)
[2022-03-28] MEDS: ALPRAZOLAM 1 MG TABLET PO PRN (22:41)
[2022-03-29] MEDS: DIPHENHYDRAMINE 50 MG/ML VIAL IV PRN ×4 (01:11→21:32)
[2022-03-29] MEDS: PROMETHAZINE INJ 25 MG/ML AMP IV PRN ×6 (01:11→21:47)
[2022-03-29] MEDS: HYDROMORPHONE HCL 1 MG/ML INJ IV PRN ×6 (01:11→21:46)
--- NOTE | 2022-03-29 02:33 | P.PN ---
Subjective Date of Service: 03/28/22 STILL HAVING A LOT OF PAIN. MONITOR LABS. HEMOGLOBIN IS DOWN TO 7.0. Review of Systems 10-point ROS is otherwise unremarkable Physical Examination - Vital Signs Temperature: 97.6 F Blood Pressure: 119/67 Pulse: 85 Respirations: 16 Pulse Ox (%): 98 - Physical Exam General: Alert, In no apparent distress HEENT: Atraumatic, PERRLA, EOMI Neck: Supple, JVD not distended Respiratory: Clear to auscultation bilaterally, Normal air movement Cardiovascular: Regular rate/rhythm, Normal S1 S2 Gastrointestinal: Normal bowel sounds, No tenderness Musculoskeletal: No tenderness Integumentary: No rashes Neurological: Normal speech, Normal tone, Normal affect Lymphatics: No axilla or inguinal lymphadenopathy - Studies Medications List Reviewed: Yes Assessment & Plan - Problems (Diagnosis) (1) Sickle cell pain crisis Current Visit: No Status: Acute (2) Leucocytosis Current Visit: No Status: Chronic Qualifiers: Leukocytosis type: unspecified Qualified Code(s): D72.829 - Elevated white blood cell count, unspecified - Plan PLAN: 1. MONITOR H&H 2. MONITOR PAIN CONTROL 3. MONITOR LFTS 4. CONTINUE WITH ANTI EMETICS 5. ANTICIPATE DISCHARGE OVER THE NEXT 48 HOURS. Discharge Plan: Home Plan to discharge in: Greater than 2 days - Advance Directives Does patient have a Living Will: No Does patient have a Durable POA for Healthcare: No - Code Status/Comfort Care Code Status Assessed: Yes Code Status: Full Code Critical Care: No Time Spent Managing PTS Care (In Minutes): 35
[2022-03-29 06:23] LABS: Absolute Lymphocytes (CBC) 7.1 K/uL (0.7-4.9); Lymphocytes % 44.6 % (15.3-44.8); MCV 92.6 fL (80-100); MPV 7.8 fL (7.6-11.3); Potassium 3.8 mmol/L (3.5-5.1); RBC Red Blood Cell Count 2.02 M/uL (3.86-4.86)
[2022-03-29 06:38] LABS: Hematocrit 18.7 % (36.0-45.0)
[2022-03-29] MEDS: NA CHLORIDE 0.9% 1,000 ML IV SCH (06:41)
[2022-03-29] MEDS: APIXABAN 2.5 MG TABLET PO SCH ×2 (09:00→21:32)
[2022-03-29] MEDS ORDERED: POTASSIUM CL SA 10 MEQ TAB PO ONE (09:00)
[2022-03-29] MEDS ORDERED: VITAMIN D 1000 UNIT TAB PO SCH (09:00)
[2022-03-29] MEDS: FOLIC ACID 1 MG TABLET PO SCH (09:54)
[2022-03-29 10:14] LABS: Anisocytosis 2+; Blood Morphology Comment NOTED (NOT SEEN); Platelet Estimate INCR; White Blood Cell Scan OK (OK)
[2022-03-29 10:15] LABS: Poikilocytosis 1+
[2022-03-29] MEDS ORDERED: NA CHLORIDE 0.9% 250 ML ONE ×2 (13:49→18:04)
--- NOTE | 2022-03-29 14:02 | P.PN ---
Date of Service: 03/29/22 Subjective Hemoglobin is down to 6.6. We will transfuse 2 units of packed red blood cells. Review of Systems 10-point ROS is otherwise unremarkable Physical Examination - Vital Signs Reviewed - Physical Exam General: Alert, In no apparent distress Respiratory: Clear to auscultation bilaterally, Normal air movement Cardiovascular: Regular rate/rhythm, Normal S1 S2 Gastrointestinal: Normal bowel sounds, No tenderness Neurological: Normal speech, Normal tone, Normal affect Assessment & Plan - Problems (Diagnosis) (1) Sickle cell pain crisis Current Visit: No Status: Acute (2) Leucocytosis Current Visit: No Status: Chronic Qualifiers: Leukocytosis type: unspecified Qualified Code(s): D72.829 - Elevated white blood cell count, unspecified - Plan Plan of care as mentioned below: 1. MONITOR H&H-2 units of packed red blood cells 2. MONITOR PAIN CONTROL 3. MONITOR LFTS 4. CONTINUE WITH ANTI EMETICS 5. ANTICIPATE DISCHARGE OVER THE NEXT 48-72 HOURS.
[2022-03-30] MEDS: HYDROMORPHONE HCL 1 MG/ML INJ IV PRN ×6 (01:18→21:44)
[2022-03-30] MEDS: PROMETHAZINE INJ 25 MG/ML AMP IV PRN ×6 (01:19→21:44)
[2022-03-30] MEDS: NA CHLORIDE 0.9% 1,000 ML IV SCH ×2 (01:20→02:35)
[2022-03-30] MEDS: ALPRAZOLAM 1 MG TABLET PO PRN (01:20)
[2022-03-30 01:48] LABS: Hematocrit 25.7 % (36.0-45.0)
[2022-03-30] MEDS: DIPHENHYDRAMINE 50 MG/ML VIAL IV PRN ×2 (05:35→17:23)
[2022-03-30 07:25] LABS: Absolute Lymphocytes (CBC) 6.9 K/uL (0.7-4.9); Lymphocytes % 39.6 % (15.3-44.8); MCV 88.8 fL (80-100); MPV 8.8 fL (7.6-11.3); RBC Red Blood Cell Count 3.04 M/uL (3.86-4.86)
[2022-03-30 07:44] LABS: Albumin 3.4 g/dL (3.4-5.0); Bilirubin Total 2.8 mg/dL (0.2-1.0); Magnesium 1.8 mg/dL (1.8-2.4); Potassium 3.8 mmol/L (3.5-5.1); Protein, Total 6.6 g/dL (6.4-8.2)
[2022-03-30] MEDS ORDERED: POTASSIUM CL SA 10 MEQ TAB PO ONE (09:00)
[2022-03-30] MEDS ORDERED: MAGNESIUM SULFATE 1 gm IVPB 1 GM/100 ML BAG IV ONE (09:00)
[2022-03-30] MEDS: APIXABAN 2.5 MG TABLET PO SCH ×2 (09:05→20:25)
[2022-03-30] MEDS: FOLIC ACID 1 MG TABLET PO SCH (09:05)
--- NOTE | 2022-03-30 11:11 | P.PN ---
Subjective Date of Service: 03/30/22 Chief Complaint: Sickle Cell Crisis No acute events overnight. She reports generalized myalgias and body aches. She grades her pain a 10/10 this morning. Review of Systems 10-point ROS is otherwise unremarkable Musculoskeletal: Other (generalized body pain) Physical Examination - Vital Signs Temperature: 97.2 F Blood Pressure: 99/51 Pulse: 63 Respirations: 18 Pulse Ox (%): 96 - Studies Microbiology Data (last 24 hrs): 03/27/22 21:30 Clean Catch Urine [place] Count - Final <10,000 CFU/ML. 03/27/22 21:30 Clean Catch Urine - Final MIXED LIZETTE. Medications List Reviewed: Yes Assessment And Plan - Plan - Physical Exam General: Alert, In no apparent distress, Oriented x3 HEENT: Atraumatic, PERRLA, Mucous membr. moist/pink, EOMI, Sclerae nonicteric Neck: Supple, JVD not distended Respiratory: Clear to auscultation bilaterally, without wheezes, rhonchi, or rales. Left-sided chest port noted. Cardiovascular: No edema, Regular rate/rhythm, Normal S1 S2, No gallops, No rubs, No murmurs Gastrointestinal: Normal bowel sounds, Soft and benign, Non-distended, No tenderness, No rebound, No guarding Musculoskeletal: No clubbing Integumentary: No rashes Neurological: Normal speech, Normal affect # Acute Sickle Cell Vaso-Occlusive Pain Crisis # Acute on Chronic Anemia due to above # Suspect Reactive Leukocytosis due to Pain # Microscopic Hematuria She reports generalized body pain, similar to her prior episodes of sickle cell pain crisis. She reports prior history of acute chest syndrome "several years ago." - Evaluation thus far: - Presenting Hgb = 9.4 (near baseline) - Hemoglobin dropped to 6.5 and she received 2 units pRBCs - No thrombocytopenia or splenic tenderness to suggest splenic/hepatic sequestration - Reticulocyte count = 0.16 - Chest x-ray = "no acute cardiopulmonary process." - Peripheral blood smear = 1+ sickle cells - Management plan: - IV hydration Lactated Ringers' @ 100 mL/hr - Pain control: - PRN acetaminophen, hydromorphone - Monitor respiratory status - Incentive spirometry - Continue home folic acid - Wanted to trial hydroxyurea - but she reports that she is intolerant to this # History of Pulmonary Embolism - Continue home apixaban Jimenez Salinas M.D.
[2022-03-30] MEDS: Ringers Lactate 1,000 ML IV SCH ×3 (11:25→22:00)
[2022-03-30] MEDS: HYDROMORPHONE ORAL 4 MG TAB PO PRN (11:25)
[2022-03-31 01:20] VITALS: BMI 28.5
[2022-03-31] MEDS: HYDROMORPHONE HCL 1 MG/ML INJ IV PRN ×3 (01:44→09:32)
[2022-03-31] MEDS: PROMETHAZINE INJ 25 MG/ML AMP IV PRN ×6 (01:45→22:09)
[2022-03-31] MEDS: DIPHENHYDRAMINE 50 MG/ML VIAL IV PRN ×3 (01:45→18:17)
[2022-03-31 05:33] LABS: Absolute Lymphocytes (CBC) 5.7 K/uL (0.7-4.9); Lymphocytes % 31.6 % (15.3-44.8); MCV 89.1 fL (80-100); MPV 8.2 fL (7.6-11.3); RBC Red Blood Cell Count 3.03 M/uL (3.86-4.86)
[2022-03-31] MEDS: Ringers Lactate 1,000 ML IV SCH ×3 (05:42→17:40)
[2022-03-31 05:48] LABS: Albumin 3.5 g/dL (3.4-5.0); Bilirubin Total 2.6 mg/dL (0.2-1.0); Protein, Total 6.7 g/dL (6.4-8.2)
[2022-03-31 05:50] LABS: Magnesium 1.8 mg/dL (1.8-2.4); Potassium 4.7 mmol/L (3.5-5.1)
[2022-03-31] MEDS: ALPRAZOLAM 1 MG TABLET PO PRN ×2 (06:24→21:17)
[2022-03-31] MEDS ORDERED: MAGNESIUM SULFATE 1 gm IVPB 1 GM/100 ML BAG IV ONE (07:00)
[2022-03-31] MEDS: FOLIC ACID 1 MG TABLET PO SCH (09:32)
[2022-03-31] MEDS: APIXABAN 2.5 MG TABLET PO SCH ×2 (09:32→21:17)
--- NOTE | 2022-03-31 12:37 | P.PN ---
Subjective Date of Service: 03/31/22 Chief Complaint: Sickle Cell Crisis No acute events overnight. She reports generalized myalgias and body aches, currently graded a 10/10 in severity. Review of Systems 10-point ROS is otherwise unremarkable General: Other (generalized body pain) Physical Examination - Vital Signs Temperature: 97.1 F Blood Pressure: 110/61 Pulse: 61 Respirations: 12 Pulse Ox (%): 96 - Studies Medications List Reviewed: Yes Assessment And Plan - Plan - Physical Exam General: Alert, In no apparent distress, Oriented x3 HEENT: Atraumatic, Mucous membr. moist/pink, Sclerae nonicteric Neck: JVD not distended Respiratory: Clear to auscultation bilaterally, without wheezes, rhonchi, or rales. Left-sided chest port noted. Cardiovascular: No edema, Regular rate/rhythm, Normal S1 S2, No gallops, No rubs, No murmurs Gastrointestinal: Normal bowel sounds, Soft, Non-distended, No tenderness, No rebound, No guarding Musculoskeletal: No clubbing Integumentary: No rashes Neurological: Normal speech, Normal affect # Acute Sickle Cell Vaso-Occlusive Pain Crisis # Acute on Chronic Anemia due to above # Suspect Reactive Leukocytosis due to Pain # Microscopic Hematuria She reports generalized body pain, similar to her prior episodes of sickle cell pain crisis. She reports prior history of acute chest syndrome "several years ag o." - Evaluation thus far: - Presenting Hgb = 9.4 (near baseline) - Hemoglobin dropped to 6.5 and she received 2 units pRBCs - No thrombocytopenia or splenic tenderness to suggest splenic/hepatic sequestration - Reticulocyte count = 0.16 - Chest x-ray = "no acute cardiopulmonary process." - Peripheral blood smear = 1+ sickle cells - Management plan: - IV hydration Lactated Ringers' @ 100 mL/hr - Pain control: - PRN acetaminophen, hydromorphone - increase IV hydromorphone from 1 mg to 1.5 mg - Monitor respiratory status - Incentive spirometry - Continue home folic acid - Wanted to trial hydroxyurea - but she reports that she is intolerant to this # History of Pulmonary Embolism - Continue home apixaban Jimenez Salinas M.D.
[2022-03-31] MEDS: HYDROMORPHONE HCL 2 MG/ML inj IV PRN ×3 (14:08→22:10)
[2022-04-01] MEDS ORDERED: HYDROMORPHONE HCL 0.5 MG/0.5 ML INJ IV ONE (00:26)
[2022-04-01] MEDS: DIPHENHYDRAMINE 50 MG/ML VIAL IV PRN ×3 (02:13→18:27)
[2022-04-01] MEDS: HYDROMORPHONE HCL 2 MG/ML inj IV PRN ×5 (02:14→22:16)
[2022-04-01] MEDS: PROMETHAZINE INJ 25 MG/ML AMP IV PRN ×5 (02:14→22:17)
[2022-04-01] MEDS: Ringers Lactate 1,000 ML IV SCH ×3 (02:21→14:15)
[2022-04-01 05:24] LABS: Absolute Lymphocytes (CBC) 6.3 K/uL (0.7-4.9); Hematocrit 27.1 % (36.0-45.0); MCV 90.3 fL (80-100); MPV 8.3 fL (7.6-11.3)
[2022-04-01 05:44] LABS: Albumin 3.5 g/dL (3.4-5.0); Bilirubin Total 2.3 mg/dL (0.2-1.0); Magnesium 1.7 mg/dL (1.8-2.4); Potassium 3.5 mmol/L (3.5-5.1); Protein, Total 6.6 g/dL (6.4-8.2)
[2022-04-01] MEDS: FOLIC ACID 1 MG TABLET PO SCH (08:58)
[2022-04-01] MEDS: APIXABAN 2.5 MG TABLET PO SCH ×2 (08:58→21:07)
--- NOTE | 2022-04-01 13:27 | P.PN ---
Subjective Date of Service: 04/01/22 Chief Complaint: Sickle Cell Crisis No acute events overnight. She reports that her pain is persistent and remains generalized. She grades the pain a 10/10 in severity. She denies any chest pain or shortness of breath. Review of Systems 10-point ROS is otherwise unremarkable General: Other (generalized pain) Physical Examination - Vital Signs Temperature: 97.6 F Blood Pressure: 114/59 Pulse: 71 Respirations: 12 Pulse Ox (%): 97 - Studies Medications List Reviewed: Yes Assessment And Plan - Plan - Physical Exam General: Alert, In no apparent distress, Oriented x3 HEENT: Atraumatic, Mucous membr. moist/pink, Sclerae nonicteric Neck: JVD not distended Respiratory: Clear to auscultation bilaterally, without wheezes, rhonchi, or rales. Left-sided chest port noted. Cardiovascular: No edema, Regular rate/rhythm, Normal S1 S2, No gallops, No rubs, No murmurs Gastrointestinal: Normal bowel sounds, Soft, Non-distended, No tenderness, No rebound, No guarding Musculoskeletal: No clubbing Integumentary: No rashes Neurological: Normal speech, Normal affect # Acute Sickle Cell Vaso-Occlusive Pain Crisis # Acute on Chronic Anemia due to above # Suspect Reactive Leukocytosis due to Pain # Microscopic Hematuria She reports generalized body pain, similar to her prior episodes of sickle cell pain crisis. She reports prior history of acute chest syndrome "several years ago." - Evaluation thus far: - Presenting Hgb = 9.4 (near baseline) - Hemoglobin dropped to 6.5 and she received 2 units pRBCs - No thrombocytopenia or splenic tenderness to suggest splenic/hepatic sequestration - Reticulocyte count = 0.16 - Chest x-ray = "no acute cardiopulmonary process." - Peripheral blood smear = 1+ sickle cells - Management plan: - IV hydration Lactated Ringers' @ 100 mL/hr - Pain control: - PRN acetaminophen, hydromorphone - Monitor respiratory status and blood pressure - Incentive spirometry - Continue home folic acid - Wanted to trial hydroxyurea - but she reports that she is intolerant to this # History of Pulmonary Embolism - Continue home apixaban Jimenez Salinas M.D.
[2022-04-01] MEDS: ALPRAZOLAM 1 MG TABLET PO PRN (16:15)
[2022-04-01] MEDS ORDERED: POTASSIUM CL SA 10 MEQ TAB PO ONE (21:00)
[2022-04-01] MEDS ORDERED: MAGNESIUM SULFATE 1 gm IVPB 1 GM/100 ML BAG IV ONE (21:21)
[2022-04-02] MEDS: Ringers Lactate 1,000 ML IV SCH ×3 (00:17→18:30)
[2022-04-02] MEDS: PROMETHAZINE INJ 25 MG/ML AMP IV PRN ×6 (02:11→22:33)
[2022-04-02] MEDS: HYDROMORPHONE HCL 2 MG/ML inj IV PRN ×4 (02:11→14:26)
[2022-04-02] MEDS: DIPHENHYDRAMINE 50 MG/ML VIAL IV PRN ×3 (02:11→18:34)
[2022-04-02 06:57] LABS: Magnesium 1.8 mg/dL (1.8-2.4); Potassium 3.9 mmol/L (3.5-5.1)
[2022-04-02 07:01] LABS: Absolute Lymphocytes (CBC) 5.2 K/uL (0.7-4.9); Hematocrit 26.7 % (36.0-45.0); Lymphocytes % 29.2 % (15.3-44.8); MCV 90.8 fL (80-100); MPV 8.5 fL (7.6-11.3); RBC Red Blood Cell Count 2.94 M/uL (3.86-4.86)
[2022-04-02] MEDS: HYDROMORPHONE ORAL 4 MG TAB PO PRN (08:01)
[2022-04-02] MEDS: FOLIC ACID 1 MG TABLET PO SCH (08:01)
[2022-04-02] MEDS: APIXABAN 2.5 MG TABLET PO SCH ×2 (08:01→21:32)
[2022-04-02] MEDS: ALPRAZOLAM 1 MG TABLET PO PRN ×2 (08:06→21:35)
--- NOTE | 2022-04-02 15:33 | P.PN ---
Subjective Date of Service: 04/02/22 Chief Complaint: Sickle Cell Crisis No acute events overnight. She reports that her pain is unchanged, remaining at a 10/10 in severity. She denies any chest pain or shortness of breath. Review of Systems 10-point ROS is otherwise unremarkable General: Other (generalized pain) Physical Examination - Vital Signs Temperature: 97.4 F Blood Pressure: 99/56 Pulse: 72 Respirations: 16 Pulse Ox (%): 98 - Studies Medications List Reviewed: Yes Assessment And Plan - Plan - Physical Exam General: Alert, In no apparent distress, Oriented x3 HEENT: Atraumatic, Mucous membr. moist/pink, Sclerae nonicteric Neck: JVD not distended Respiratory: Clear to auscultation bilaterally, without wheezes, rhonchi, or rales. Left-sided chest port noted. Cardiovascular: No edema, Regular rate/rhythm, Normal S1 S2, No gallops, No rubs, No murmurs Gastrointestinal: Normal bowel sounds, Soft, Non-distended, No tenderness, No rebound, No guarding Musculoskeletal: No clubbing Integumentary: No rashes Neurological: Normal speech, Normal affect # Acute Sickle Cell Vaso-Occlusive Pain Crisis # Acute on Chronic Anemia due to above # Suspect Reactive Leukocytosis due to Pain # Microscopic Hematuria She reports generalized body pain, similar to her prior episodes of sickle cell pain crisis. She reports prior history of acute chest syndrome "several years ago." - Evaluation thus far: - Presenting Hgb = 9.4 (near baseline) - Hemoglobin dropped to 6.5 and she received 2 units pRBCs - No thrombocytopenia or splenic tenderness to suggest splenic/hepatic sequestration - Reticulocyte count = 0.16 - Chest x-ray = "no acute cardiopulmonary process." - Peripheral blood smear = 1+ sickle cells - Management plan: - IV hydration Lactated Ringers' @ 100 mL/hr - Pain control: - PRN acetaminophen, hydromorphone - Will add methocarbamol today - Monitor respiratory status and blood pressure - Incentive spirometry - Continue home folic acid - Wanted to trial hydroxyurea - but she reports that she is intolerant to this # History of Pulmonary Embolism - Continue home apixaban Jimenez Salinas M.D.
[2022-04-02 16:03] LABS: Hematocrit 26.6 % (36.0-45.0); Lymphocytes % 31.2 % (15.3-44.8); MCV 89.3 fL (80-100); MPV 8.4 fL (7.6-11.3); RBC Red Blood Cell Count 2.98 M/uL (3.86-4.86)
[2022-04-02] MEDS: HYDROMORPHONE HCL 1 MG/ML INJ IV PRN ×2 (18:31→22:33)
[2022-04-02] MEDS ORDERED: MAGNESIUM SULFATE 1 gm IVPB 1 GM/100 ML BAG IV ONE (19:11)
[2022-04-02] MEDS ORDERED: POTASSIUM CL SA 10 MEQ TAB PO ONE (20:00)
[2022-04-03] MEDS: DIPHENHYDRAMINE 50 MG/ML VIAL IV PRN ×3 (02:24→16:18)
[2022-04-03] MEDS: HYDROMORPHONE HCL 1 MG/ML INJ IV PRN ×5 (02:24→20:23)
[2022-04-03] MEDS: PROMETHAZINE INJ 25 MG/ML AMP IV PRN ×5 (02:25→20:23)
[2022-04-03] MEDS ORDERED: HYDROMORPHONE HCL 0.5 MG/0.5 ML INJ IV ONE (04:24)
[2022-04-03] MEDS: Ringers Lactate 1,000 ML IV SCH ×4 (04:40→23:09)
[2022-04-03 05:19] LABS: Magnesium 2.1 mg/dL (1.8-2.4)
[2022-04-03] MEDS: FOLIC ACID 1 MG TABLET PO SCH (08:08)
[2022-04-03] MEDS: APIXABAN 2.5 MG TABLET PO SCH ×2 (08:08→20:24)
[2022-04-03] MEDS: HYDROMORPHONE ORAL 4 MG TAB PO PRN ×2 (13:31→23:36)
--- NOTE | 2022-04-03 14:18 | P.PN ---
Subjective Date of Service: 04/03/22 Chief Complaint: Sickle Cell Crisis No acute events overnight. She reports that her pain has persistently been at 10/10 in severity. She denies any chest pain or shortness of breath. She reports that her mood has been slightly down due to her persistent pain. I offered a Psychiatry consult and she agreed to proceed. Review of Systems 10-point ROS is otherwise unremarkable General: Other (generalized pain) Physical Examination - Vital Signs Temperature: 97.4 F Blood Pressure: 100/58 Pulse: 72 Respirations: 18 Pulse Ox (%): 97 - Studies Medications List Reviewed: Yes Assessment And Plan - Plan - Physical Exam General: Alert, In no apparent distress, Oriented x3 HEENT: Atraumatic, Mucous membr. moist/pink, Sclerae nonicteric Neck: JVD not distended Respiratory: Clear to auscultation bilaterally, without wheezes, rhonchi, or rales. Left-sided chest port noted. Cardiovascular: No edema, Regular rate/rhythm, Normal S1 S2, No gallops, No rubs, No murmurs Gastrointestinal: Normal bowel sounds, Soft, Non-distended, No tenderness, No rebound, No guarding Musculoskeletal: No clubbing Integumentary: No rashes Neurological: Normal speech, Normal affect # Acute Sickle Cell Vaso-Occlusive Pain Crisis # Acute on Chronic Anemia due to above # Suspect Reactive Leukocytosis due to Pain # Microscopic Hematuria She reports generalized body pain, similar to her prior episodes of sickle cell pain crisis. She reports prior history of acute chest syndrome "several years ago." - Evaluation thus far: - Presenting Hgb = 9.4 (near baseline) - Hemoglobin dropped to 6.5 and she received 2 units pRBCs - No thrombocytopenia or splenic tenderness to suggest splenic/hepatic sequestration - Reticulocyte count = 0.16 - Chest x-ray = "no acute cardiopulmonary process." - Peripheral blood smear = 1+ sickle cells - Management plan: - IV hydration Lactated Ringers' @ 100 mL/hr - Pain control: - PRN acetaminophen, hydromorphone, methocarbamol - Monitor respiratory status and blood pressure - Incentive spirometry - Continue home folic acid - Wanted to trial hydroxyurea - but she reports that she is intolerant to this - May benefit from Pain Medicine specialist as an outpatient - Consulted Psychiatry for depressed mood/coping mechanism due to persistent pain - recommendations appreciated # History of Pulmonary Embolism - Continue home apixaban Jimenez Salinas M.D.
[2022-04-03] MEDS: ALPRAZOLAM 1 MG TABLET PO PRN (20:34)
[2022-04-04] MEDS: HYDROMORPHONE HCL 1 MG/ML INJ IV PRN (00:24)
[2022-04-04] MEDS: PROMETHAZINE INJ 25 MG/ML AMP IV PRN ×5 (00:24→23:46)
[2022-04-04] MEDS: DIPHENHYDRAMINE 50 MG/ML VIAL IV PRN ×3 (00:25→20:24)
[2022-04-04] MEDS ORDERED: HYDROMORPHONE HCL 0.5 MG/0.5 ML INJ IV PRN (06:33)
[2022-04-04] MEDS ORDERED: HYDROMORPHONE HCL 1 MG/ML INJ IV PRN (08:58)
[2022-04-04] MEDS ORDERED: VITAMIN D 1000 UNIT TAB PO SCH (09:00)
[2022-04-04] MEDS: FOLIC ACID 1 MG TABLET PO SCH (09:08)
[2022-04-04] MEDS: APIXABAN 2.5 MG TABLET PO SCH ×2 (09:09→20:23)
[2022-04-04] MEDS: Ringers Lactate 1,000 ML IV SCH ×2 (09:13→20:23)
[2022-04-04] MEDS: HYDROMORPHONE ORAL 4 MG TAB PO PRN ×3 (10:19→20:22)
[2022-04-04] MEDS: ALPRAZOLAM 1 MG TABLET PO PRN ×2 (10:19→20:23)
[2022-04-04] MEDS ORDERED: methocarbamoL 500 MG TAB PO PRN (12:05)
[2022-04-04] MEDS ORDERED: HYDROMORPHONE HCL 1 MG/ML INJ IV ONE ×3 (13:00→23:34)
[2022-04-04] MEDS: PREGABALIN 75 MG CAP PO SCH ×2 (13:03→20:23)
[2022-04-04] MEDS: methocarbamoL 500 MG TAB PO SCH ×2 (13:03→20:23)
[2022-04-04] MEDS ORDERED: methocarbamoL 500 MG TAB PO SCH (14:00)
--- NOTE | 2022-04-04 15:48 | P.PN ---
Subjective Date of Service: 04/04/22 Chief Complaint: Sickle Cell Crisis No acute events overnight. She reports persistent pain, grading it a 10/10 in severity. She denies any chest pain or shortness of breath. Consulted Pain Medicine, Dr. Castorena, who was able to make some recommendations to wean off of IV hydromorphone. Review of Systems 10-point ROS is otherwise unremarkable General: Other (generalized pain) Physical Examination - Vital Signs Temperature: 98.1 F Blood Pressure: 97/61 Pulse: 81 Respirations: 18 Pulse Ox (%): 97 - Studies Medications List Reviewed: Yes Assessment And Plan - Plan - Physical Exam General: Alert, In no apparent distress, Oriented x3 HEENT: Atraumatic, Mucous membr. moist/pink, Sclerae nonicteric Neck: JVD not distended Respiratory: Clear to auscultation bilaterally, without wheezes, rhonchi, or rales. Left-sided chest port noted. Cardiovascular: No edema, Regular rate/rhythm, Normal S1 S2, No gallops, No rubs, No murmurs Gastrointestinal: Normal bowel sounds, Soft, Non-distended, No tenderness, No rebound, No guarding Musculoskeletal: No clubbing Integumentary: No rashes Neurological: Normal speech, Normal affect # Acute Sickle Cell Vaso-Occlusive Pain Crisis # Acute on Chronic Anemia due to above # Suspect Reactive Leukocytosis due to Pain # Microscopic Hematuria She reports generalized body pain, similar to her prior episodes of sickle cell pain crisis. She reports prior history of acute chest syndrome "several years ago." - Evaluation thus far: - Presenting Hgb = 9.4 (near baseline) - Hemoglobin dropped to 6.5 and she received 2 units pRBCs - No thrombocytopenia or splenic tenderness to suggest splenic/hepatic sequestration - Reticulocyte count = 0.16 - Chest x-ray = "no acute cardiopulmonary process." - Peripheral blood smear = 1+ sickle cells - Management plan: - IV hydration Lactated Ringers' @ 100 mL/hr - Consulted Pain Medicine and spoke with Dr. Omar Castorena - recommendations appreciated - Stated that he felt she would benefit from a pain pump - Recommended discontinuing IV hydromorphone and starting: - Hydromorphone 8 mg PO q4hr PRN - Methocarbamol 1000 mg PO q8hr - Pregabalin 75 mg PO q8hr - Monitor respiratory status and blood pressure - Incentive spirometry - Continue home folic acid - Wanted to trial hydroxyurea - but she reports that she is intolerant to this - Consulted Psychiatry for depressed mood/coping mechanism due to persistent pain - recommendations appreciated - Dr. Vega not retail operations specialist due to holidays # History of Pulmonary Embolism - Continue home apixaban Jimenez Salinas M.D.
[2022-04-05] MEDS: HYDROMORPHONE ORAL 4 MG TAB PO PRN ×6 (01:26→22:39)
[2022-04-05] MEDS: methocarbamoL 500 MG TAB PO SCH ×3 (05:38→21:46)
[2022-04-05] MEDS: DIPHENHYDRAMINE 50 MG/ML VIAL IV PRN ×3 (05:39→22:38)
[2022-04-05] MEDS: Ringers Lactate 1,000 ML IV SCH ×2 (05:39→15:20)
[2022-04-05] MEDS: PREGABALIN 75 MG CAP PO SCH ×3 (05:39→21:46)
[2022-04-05] MEDS: PROMETHAZINE INJ 25 MG/ML AMP IV PRN ×5 (05:39→22:39)
[2022-04-05] MEDS ORDERED: DRISDOL (VITAMIN D=ERGOCALCIFEROL) 50000 UNIT CAP PO SCH (09:00)
[2022-04-05] MEDS ORDERED: HYDROMORPHONE HCL 1 MG/ML INJ IV ONE ×2 (09:30→17:39)
[2022-04-05] MEDS: APIXABAN 2.5 MG TABLET PO SCH ×2 (09:34→21:46)
[2022-04-05] MEDS: FOLIC ACID 1 MG TABLET PO SCH (09:34)
[2022-04-05] MEDS: ALPRAZOLAM 1 MG TABLET PO PRN ×2 (10:24→21:46)
--- NOTE | 2022-04-05 16:32 | P.PN ---
Subjective Date of Service: 04/05/22 Chief Complaint: Sickle Cell Crisis No acute events overnight. She reports that the PO regimen we started her on seems to be helping. She was able to make it about 7-8 hours without IV pain medication. She was very optimistic this morning on rounds. She denies any chest pain or shortness of breath. Review of Systems 10-point ROS is otherwise unremarkable General: Other (generalized pain) Physical Examination - Vital Signs Temperature: 97.6 F Blood Pressure: 116/57 Pulse: 89 Respirations: 12 Pulse Ox (%): 97 - Studies Medications List Reviewed: Yes Assessment And Plan - Plan - Physical Exam General: Alert, In no apparent distress, Oriented x3 HEENT: Atraumatic, Mucous membr. moist/pink, Sclerae nonicteric Neck: JVD not distended Respiratory: Clear to auscultation bilaterally, without wheezes, rhonchi, or rales. Left-sided chest port noted. Cardiovascular: No edema, Regular rate/rhythm, Normal S1 S2, No gallops, No rubs, No murmurs Gastrointestinal: Normal bowel sounds, Soft, Non-distended, No tenderness, No rebound, No guarding Musculoskeletal: No clubbing Integumentary: No rashes Neurological: Normal speech, Normal affect # Acute Sickle Cell Vaso-Occlusive Pain Crisis # Acute on Chronic Anemia due to above # Suspect Reactive Leukocytosis due to Pain # Microscopic Hematuria She reports generalized body pain, similar to her prior episodes of sickle cell pain crisis. She reports prior history of acute chest syndrome "several years ago." - Evaluation thus far: - Presenting Hgb = 9.4 (near baseline) - Hemoglobin dropped to 6.5 and she received 2 units pRBCs - No thrombocytopenia or splenic tenderness to suggest splenic/hepatic sequestration - Reticulocyte count = 0.16 - Chest x-ray = "no acute cardiopulmonary process." - Peripheral blood smear = 1+ sickle cells - Management plan: - IV hydration Lactated Ringers' @ 100 mL/hr - Consulted Pain Medicine and spoke with Dr. Omar Castorena - recommendations appreciated - Stated that he felt she would benefit from a pain pump - Recommended discontinuing IV hydromorphone and starting: - Hydromorphone 8 mg PO q4hr PRN - Methocarbamol 1000 mg PO q8hr - Pregabalin 75 mg PO q8hr - Monitor respiratory status and blood pressure - Continue this regimen and once able to tolerate pain for >24 hours without IV pain medication, begin discharge planning and follow-up - Incentive spirometry - Continue home folic acid - Wanted to trial hydroxyurea - but she reports that she is intolerant to this - Consulted Psychiatry for depressed mood/coping mechanism due to persistent pain - recommendations appreciated - Dr. Vega not test conductor due to holidays # History of Pulmonary Embolism - Continue home apixaban Jimenez Salinas M.D.
[2022-04-06] MEDS: Ringers Lactate 1,000 ML IV SCH ×4 (00:10→20:37)
[2022-04-06] MEDS ORDERED: HYDROMORPHONE HCL 1 MG/ML INJ IV ONE ×3 (01:36→17:45)
[2022-04-06] MEDS: PROMETHAZINE INJ 25 MG/ML AMP IV PRN ×5 (03:10→21:55)
[2022-04-06] MEDS: HYDROMORPHONE ORAL 4 MG TAB PO PRN ×5 (03:10→21:55)
[2022-04-06] MEDS: methocarbamoL 500 MG TAB PO SCH ×3 (05:57→20:38)
[2022-04-06] MEDS: PREGABALIN 75 MG CAP PO SCH ×3 (05:57→20:37)
[2022-04-06] MEDS: FOLIC ACID 1 MG TABLET PO SCH (07:59)
[2022-04-06] MEDS: APIXABAN 2.5 MG TABLET PO SCH ×2 (08:00→20:38)
[2022-04-06] MEDS: DIPHENHYDRAMINE 50 MG/ML VIAL IV PRN ×2 (08:00→17:48)
[2022-04-06] MEDS: ALPRAZOLAM 1 MG TABLET PO PRN ×2 (08:45→20:38)
--- NOTE | 2022-04-06 16:13 | P.PN ---
Subjective Date of Service: 04/06/22 Chief Complaint: Sickle Cell Crisis No acute events overnight. She reports that her pain is gradually becoming less severe. She feels that the PO medications are slowly working. She denies any chest pain or shortness of breath. Review of Systems 10-point ROS is otherwise unremarkable General: Other (generalized body pain) Physical Examination - Vital Signs Temperature: 98.2 F Blood Pressure: 114/64 Pulse: 86 Respirations: 18 Pulse Ox (%): 97 - Studies Medications List Reviewed: Yes Assessment And Plan - Plan - Physical Exam General: Alert, In no apparent distress, Oriented x3 HEENT: Atraumatic, Mucous membr. moist/pink, Sclerae nonicteric Neck: JVD not distended Respiratory: Clear to auscultation bilaterally, without wheezes, rhonchi, or rales. Left-sided chest port noted. Cardiovascular: No edema, Regular rate/rhythm, Normal S1 S2, No gallops, No rubs, No murmurs Gastrointestinal: Normal bowel sounds, Soft, Non-distended, No tenderness, No rebound, No guarding Musculoskeletal: No clubbing Integumentary: No rashes Neurological: Normal speech, Normal affect # Acute Sickle Cell Vaso-Occlusive Pain Crisis # Acute on Chronic Anemia due to above # Suspect Reactive Leukocytosis due to Pain # Microscopic Hematuria She reports generalized body pain, similar to her prior episodes of sickle cell pain crisis. She reports prior history of acute chest syndrome "several years ago." - Evaluation thus far: - Presenting Hgb = 9.4 (near baseline) - Hemoglobin dropped to 6.5 and she received 2 units pRBCs - No thrombocytopenia or splenic tenderness to suggest splenic/hepatic sequestration - Reticulocyte count = 0.16 - Chest x-ray = "no acute cardiopulmonary process." - Peripheral blood smear = 1+ sickle cells - Management plan: - IV hydration Lactated Ringers' @ 100 mL/hr - Consulted Pain Medicine and spoke with Dr. Omar Castorena - recommendations appreciated - Stated that he felt she would benefit from a pain pump - Recommended discontinuing IV hydromorphone and starting: - Hydromorphone 8 mg PO q4hr PRN - Methocarbamol 1000 mg PO q8hr - Pregabalin 75 mg PO q8hr - Monitor respiratory status and blood pressure - Continue this regimen and once able to tolerate pain for >24 hours without IV pain medication, begin discharge planning and follow-up - Incentive spirometry - Continue home folic acid - Wanted to trial hydroxyurea - but she reports that she is intolerant to this - Consulted Psychiatry for depressed mood/coping mechanism due to persistent pain - recommendations appreciated - Dr. Vega not tv production assistant due to holidays - Follow-up as an outpatient # History of Pulmonary Embolism - Continue home apixaban Jimenez Salinas M.D.
[2022-04-07] MEDS ORDERED: HYDROMORPHONE HCL 1 MG/ML INJ IV ONE ×3 (00:35→17:49)
[2022-04-07] MEDS: PROMETHAZINE INJ 25 MG/ML AMP IV PRN ×5 (02:12→22:10)
[2022-04-07] MEDS: DIPHENHYDRAMINE 50 MG/ML VIAL IV PRN ×4 (02:12→22:09)
[2022-04-07] MEDS: HYDROMORPHONE ORAL 4 MG TAB PO PRN ×4 (02:12→23:56)
[2022-04-07] MEDS: PREGABALIN 75 MG CAP PO SCH ×3 (05:47→20:13)
[2022-04-07] MEDS: methocarbamoL 500 MG TAB PO SCH ×3 (05:48→20:14)
[2022-04-07] MEDS: Ringers Lactate 1,000 ML IV SCH ×4 (05:49→15:53)
[2022-04-07] MEDS: APIXABAN 2.5 MG TABLET PO SCH ×2 (08:29→20:14)
[2022-04-07] MEDS: FOLIC ACID 1 MG TABLET PO SCH (08:29)
--- NOTE | 2022-04-07 13:06 | P.PN ---
Subjective Date of Service: 04/07/22 Chief Complaint: Sickle Cell Crisis No acute events overnight. She reports that her pain is gradually improving. She has been able to space out her IV hydromorphone doses better. She denies any chest pain or shortness of breath. Review of Systems 10-point ROS is otherwise unremarkable General: Other (generalized pain) Physical Examination - Vital Signs Temperature: 97.5 F Blood Pressure: 103/59 Pulse: 75 Respirations: 16 Pulse Ox (%): 94 - Studies Medications List Reviewed: Yes Assessment And Plan - Plan - Physical Exam General: Alert, In no apparent distress, Oriented x3 HEENT: Atraumatic, Mucous membr. moist/pink, Sclerae nonicteric Neck: JVD not distended Respiratory: Clear to auscultation bilaterally, without wheezes, rhonchi, or rales. Left-sided chest port noted. Cardiovascular: No edema, Regular rate/rhythm, Normal S1 S2, No gallops, No rubs, No murmurs Gastrointestinal: Normal bowel sounds, Soft, Non-distended, No tenderness, No rebound, No guarding Musculoskeletal: No clubbing Integumentary: No rashes Neurological: Normal speech, Normal affect # Acute Sickle Cell Vaso-Occlusive Pain Crisis # Acute on Chronic Anemia due to above # Suspect Reactive Leukocytosis due to Pain # Microscopic Hematuria She reports generalized body pain, similar to her prior episodes of sickle cell pain crisis. She reports prior history of acute chest syndrome "several years ago." - Evaluation thus far: - Presenting Hgb = 9.4 (near baseline) - Hemoglobin dropped to 6.5 and she received 2 units pRBCs - No thrombocytopenia or splenic tenderness to suggest splenic/hepatic sequestration - Reticulocyte count = 0.16 - Chest x-ray = "no acute cardiopulmonary process." - Peripheral blood smear = 1+ sickle cells - Management plan: - IV hydration Lactated Ringers' @ 100 mL/hr - Consulted Pain Medicine and spoke with Dr. Omar Castorena - recommendations appreciated - Stated that he felt she would benefit from a pain pump - Recommended discontinuing IV hydromorphone and starting: - Hydromorphone 8 mg PO q4hr PRN - Methocarbamol 1000 mg PO q8hr - Pregabalin 75 mg PO q8hr - Intermittent doses of IV hydromorphone for break-through pain - Monitor respiratory status and blood pressure - Continue this regimen and once able to tolerate pain for >24 hours without IV pain medication, begin discharge planning and follow-up - Incentive spirometry - Continue home folic acid - Wanted to trial hydroxyurea - but she reports that she is intolerant to this - Consulted Psychiatry for depressed mood/coping mechanism due to persistent pain - recommendations appreciated - Dr. Vega not medical education manager due to holidays - Follow-up as an outpatient # History of Pulmonary Embolism - Continue home apixaban Jimenez Salinas M.D.
[2022-04-07] MEDS: ALPRAZOLAM 1 MG TABLET PO PRN (20:13)
[2022-04-08] MEDS: Ringers Lactate 1,000 ML IV SCH ×5 (01:00→22:13)
[2022-04-08] MEDS: PROMETHAZINE INJ 25 MG/ML AMP IV PRN ×5 (04:03→21:55)
[2022-04-08] MEDS: HYDROMORPHONE ORAL 4 MG TAB PO PRN ×4 (04:03→20:48)
[2022-04-08] MEDS: DIPHENHYDRAMINE 50 MG/ML VIAL IV PRN ×4 (04:03→21:54)
[2022-04-08] MEDS: methocarbamoL 500 MG TAB PO SCH ×3 (04:44→20:49)
[2022-04-08] MEDS: PREGABALIN 75 MG CAP PO SCH ×3 (04:45→20:49)
[2022-04-08] MEDS ORDERED: HYDROMORPHONE HCL 1 MG/ML INJ IV ONE ×4 (05:32→21:57)
[2022-04-08] MEDS: FOLIC ACID 1 MG TABLET PO SCH (08:27)
[2022-04-08] MEDS: APIXABAN 2.5 MG TABLET PO SCH ×2 (08:28→20:49)
[2022-04-08] MEDS: ALPRAZOLAM 1 MG TABLET PO PRN (13:08)
[2022-04-09] MEDS: HYDROMORPHONE ORAL 4 MG TAB PO PRN ×3 (00:38→08:59)
[2022-04-09] MEDS ORDERED: HYDROMORPHONE HCL 1 MG/ML INJ IV ONE ×3 (04:03→12:00)
[2022-04-09] MEDS: PROMETHAZINE INJ 25 MG/ML AMP IV PRN ×3 (04:20→12:54)
[2022-04-09] MEDS: DIPHENHYDRAMINE 50 MG/ML VIAL IV PRN ×2 (04:21→10:04)
[2022-04-09] MEDS: methocarbamoL 500 MG TAB PO SCH ×2 (05:01→12:15)
[2022-04-09] MEDS: PREGABALIN 75 MG CAP PO SCH ×2 (05:01→12:15)
[2022-04-09] MEDS: ALPRAZOLAM 1 MG TABLET PO PRN (05:10)
[2022-04-09] MEDS: FOLIC ACID 1 MG TABLET PO SCH (07:59)
[2022-04-09] MEDS: APIXABAN 2.5 MG TABLET PO SCH (08:00)
[2022-04-09] MEDS: Ringers Lactate 1,000 ML IV SCH ×2 (09:00→12:00)
[2022-04-09] MEDS ORDERED: HEPARIN 500 UNIT/5 ML SYR IV PRN (09:18)
[2022-04-09 12:23] VITALS: O2SAT 95
[2022-04-09 12:58] VITALS: BP 116/67; TEMP 97.4
== END 2022-04-09 14:15 | disposition home or self-care (01) | DRG 812 ==
LOC: ER 18:36 → ERHOLD 23:34 → 2ND 03-28 13:50
PROVIDERS: ADMIT Hospitalist; ATTEND Hospitalist
PROC: 30233N1 Transfusion of Nonautologous Red Blood Cells into Peripheral Vein, Percutaneous Approach (ICD-10-PCS; principal; 2022-03-29)
DX: D57.00 Hb-SS disease with crisis, unspecified (principal); N30.01 Acute cystitis with hematuria; D72.829 Elevated white blood cell count, unspecified; Z88.1 Allergy status to other antibiotic agents; Z88.5 Allergy status to narcotic agent; Z79.01 Long term (current) use of anticoagulants; Z79.899 Other long term (current) drug therapy; Z86.711 Personal history of pulmonary embolism; Z20.822 Contact with and (suspected) exposure to COVID-19
CPT/HCPCS: 36415; 36430; 71045; 80048; 80053; 81001; 81003; 81015; 81025; 83615; 83690; 83735; 84100; 84703; 85014; 85018; 85025; 85044; 85660; 86850; 86900; 86901; 86902; 87086; 87088; 94010; 94760; 96374; 96375; 99285; J1170; J1200; J1642; J2550; J2765; J2800; J3475; J7030; J7050; J7120; J7613; J7644; P9016; U0003

== ENCOUNTER 2022-08-01 09:14 | Inpatient (IN) | payer OTHER ==
--- OUTSIDE RECORDS SUMMARY | 2022-08-01 09:21 | XMS REPORT | Continuity of Care Document ---
:1990 Author Organization [facility] t Address [address] [facility] [address] [place]. [address] [place] [address] Support Name Relationship Address Phone VARUN [place]TEGA [place] [address] [phone] [place] [address] VARUN ORTEGA OR N Y [address] [place] [address] HIPOLITO MCBRIDE MO Unavailable ESTHER MCBRIDE [facility] [address] [phone] [place] [address] BEN FRIAS OT N [facility] [address] [place] [address] REHAN CHEEMA Unavailable [phone] [facility] [phone] [place] [address] TAMMIE ORTEGAA Unavailable [phone] [facility] [phone] [place] [address] SIENNA NELDA Unavailable [phone] [facility] [phone] [place] [address] MD AMY ALONZO JR Admitting Provider [address] [facility] [address] [place] [address] TRAY SIDDIQUI PA-Checo Primary Care Physician [address] [facility] [address] [place] [address] MD CAROLINA LILLY MD A Emergency Provider [address] [place] [address] NAIMA MULLEN, ORIANA Attending Provider [address] [place] [address] CHAU MAGANA MD Emergency Provider [address] [facility] [address] [place] [address] PHYSICIAN, NO Primary Care Physician Unavailable Unavailab MD AMARILIS Jones MD Emergency Provider [address] [place] [address] OTHER, ENTER NAME IN Primary Care Physician Unavailable Unav ailable NOTES MD JENNIFER SHIN MD Emergency Provider [address] [facility] [address] MD TYRON MASON MD Admitting Provider [address] [phone] [place] [address] MORIS FRANCIS Primary Care Physician 201 [facility] [place] [address] MD SWETHA CROWE Ck Emergency Provider [facility] [place] [place] [address] MD TYLER WRIGHT Emergency Provider Unavailable Unavailable MD SAMUEL KUMAR Emergency Provider [address] [phone] [place] [address] MD LESLY NEWTON Emergency Provider [address] [place] [address] [address] Or[address]ga Brother [address] [place] [address] Lima Cheema Grandparent Unavailable Francis Plasencia Father Unavailable Care Team Providers Name Role Phone Shaikh PAZ, Radha Cordova Primary Care Physician [phone] KAIN RUFF Attending Clinician Unavailable ELLIE HERNANDEZ Attending Clinician Unavailable CLIFTON DASILVA Attending Clinician Unavailable MARCUS MI Attending Clinician Unavailable MAURICIO GRISSOM Attending Clinician Unavailable Kym Land MD Attending Clinician Meenu Rodriguez MD Attending Clinician Kristina Sahni MD Attending Clinician KRISTINA SAHNI Attending Clinician Unavailable AURORA GUTIERREZ Attending Clinician Unavailable RAHEL CORREA Attending Clinician Unavailable JENNIFER SHAH Attending Clinician Unavailable AAMIR MCCLOUD I Attending Clinician Unavailable ASHLEY WOODRUFF Attending Clinician Unavailable ELIAS THOMPSON Admitting Clinician Unavailable VIVIANA MASON Admitting Clinician Unavailable CLIFTON DASILVA Admitting Clinician Unavailable MEENU RODRIGUEZ Admitting Clinician Unavailable AURORA GUTIERREZ Admitting Clinician Unavailable ENRIQUE PEGUERO Admitting Clinician Unavailable EARL CARTER Admitting Clinician Unavailable Payers Payer Name Policy Type Policy Number Effective Date Expiration Date S stacey [facility] [id number] 2015 2024 [employer] OON 00:00:00 00:00:00 EXCEPT [facility] STAR [id number] 2021 PLAN 00:00:00 Problems Condition Condition Condition Status Onset Resolution Last Treating Co mments Source Name Details Category Date Date Treatment Clinician Date Leukocytos Leukocytos Disease Active [facility] 00[facility] Medical 00 [place] Pneumonia Pneumonia Disease Active [facility] 00[facility]: Medical [place] 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 00:00: Medical 00 [place] 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[facility] cell cell 2-28 [facility] crisis crisis 00:00: Medical [place] 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[facility] cell [...] MIDE 00:00: Medical ANTIBIOT 00 Center ICS) Sulfa Propensi Active [facility] (Sulfona ty to 8-18 [facility] mide adverse 00:00: Medical Antibiot reaction 00 [place] ics) s Fentanyl Propensi Active Shortness Of [facility] [...] d 00 Medical Center TEGEDERM DA Active [place] [facility]23 [place] 00:[facility]: d 00 [facility] Family History Family Member Diagnosis Comments Start Date Stop Date Source Natural brother Unremarkable [facility] Natural father Seizures [facility] Natural father Sickle cell trait [facility] Natural mother Sickle cell trait [facility] Natural sister Unremarkable [facility] Social History Social Habit Start Date Stop Date Quantity Comments Source History [facility] Transport Non-Med Medical Center History [facility] Housing Places Medical Ce nter Lived History [facility] 2021-12-29 2021-12-[address] [facility] Transport Med 00:00:00 00:00:[address] History [facility] 2021-12-29 2021-12-[address] [facility] Housing Unable to 00:00:00 00:00:00 Medical Center Pay History [facility] 2021-12-29 2021-12-[address] [facility] Housing Homeless 00:00:00 00:00:00 Medical Center Last Year Alcohol intake 2021-12-28 2021-12-28 Current [facility] 00:00:00 00:00:00 non-drinker of Medical Ce nter alcohol (finding) Tobacco use and 2015-07-10 2015-07-[address] [facility] exposure 00:00:00 00:00:00 non-user Medical Center Sex Assigned At [address] Ariana kes 00:00:00 00:00:00 Medical Center Smoking Status Start Date Stop Date Source Never smoked tobacco [facility] Center Medications Ordered Filled Start Stop Current Ordering Indication Dosage Frequency Signature Comments Components Source Medication Medication Date Date Medication? Clinician (SIG) Name Name folic acid Yes folate 2mg QD Take [address] (FOLVITE) 1 8-24 deficiency by mouth [facility] MG tablet 15:59: daily. Medica l 55 Center penicillin 0 Yes 250mg Take 250 [...] 15:59: daily. Medica l 55 Center penicillin 0 Yes 250mg Take [address] v potassium 8-24 mg by Lukes (VEETID) 15:59: mouth Medical 250 MG 55 every 12 Center tablet (twelve) hours. HYDROmorpho 2021-0 Yes 8mg Take [address] ne 8-24 by mouth [facility] (DILAUDID) 15:59: every 6 Medi rita 8 MG tablet 55 (six) Center hours as needed for Pain. apixaban 2022-0 Yes 2.5mg Q.5D Take 2.[address] (Eliquis) 8-24 mg by [facility]ukes 2.5 mg Tab 15:59: mouth 2 Medi rita tablet 55 (two) Center times daily . ALPRAZolam 2-0 Yes 1mg Take [address] (XANAX) 1 8-24 by mouth 2 Luke s MG tablet 15:59: (two) Medical 55 times Center daily as needed for Anxiety. voxelotor 202-0 Yes 500mg QD Take [address] [...] every 12 Center tablet (twelve) hours. HYDROmorpho 2021-0 Yes 8mg Take [address] ne 8-24 by mouth [facility] (DILAUDID) 15:59: every 6 Medi rita 8 MG tablet 55 (six) Center hours as needed for Pain. apixaban 2021-0 Yes 2.5mg Q.5D Take 2.[address] (Eliquis) 8-24 mg by Lukes 2.5 mg Tab 15:59: mouth 2 Medi rita tablet 55 (two) Center times daily . ALPRAZolam 2022-0 Yes 1mg Take [address] (XANAX) 1 8-24 by mouth 2 Luke s MG tablet 15:59: (two) Medical 55 times Center daily as needed for Anxiety. voxelotor 202-0 Yes 500mg QD Take [address] 500 mg Tab 8-24 mg by Lukes 15:59: mouth Medical 55 daily. Center promethazin 2022-0 Yes prevention 25mg Take [address] e 8-24 of by mouth [facility]ukes (PHENERGAN) 15:59: post-operat every 6 Medical 25 MG 55 hima nausea (six) Center tablet and hours as vomiting needed for Nausea. folic acid 0 Yes folate 2mg QD Take [address] (FOLVITE) 1 8-24 deficiency by mouth [facility]ukes MG tablet 15:59: daily. Medica l 55 Center penicillin 0 Yes 250mg Take 250 [...] 15:59: daily. Medica l 55 Center penicillin 0 Yes 250mg Take [address] v potassium 8-24 mg by Lukes (VEETID) 15:59: mouth Medical 250 MG 55 every 12 Center tablet (twelve) hours. HYDROmorpho 2-0 Yes 8mg Take 8 mg C HI [...] Center daily as needed for Anxiety. voxelotor 202-0 Yes 500mg QD Take [address] [...] Center daily as needed for Anxiety. voxelotor 2022-0 Yes 500mg QD Take [address] [...] 55 (two) Center times daily . ALPRAZolam 2021-0 Yes 1mg Take 1 mg CH I [...] every 12 Center tablet (twelve) hours. HYDROmorpho 2-0 Yes 8mg Take 8 mg C HI [...] Center daily as needed for Anxiety. voxelotor 202-0 Yes 500mg QD Take [address] [...] 14:39: daily. Medica l 58 Center penicillin 20190 Yes 250mg Take [address] [...] 14:39: daily. Medica l 58 Center penicillin 20190 Yes 250mg Take [address] [...] mouth once Medi rita 00 a week. [place] VITAMIN D2 Yes 1{capsu Q7D Take [address] 50,000 unit 2-25 le} capsule by Ariana kes capsule 00:00: mouth once Medi rita 00 a week. [place] VITAMIN D2 2018-0 Yes 1{capsu Q7D Take [address] 50,000 unit 2-25 le} capsule by Ariana kes capsule 00:00: mouth once Medi rita 00 a week. [place] VITAMIN D2 2018- Yes 1{capsu Q7D Take [address] 50,000 unit 2-25 le} capsule by Ariana kes capsule 00:00: mouth once Medi rita 00 a week. [place] VITAMIN D2 2018-0 Yes 1{capsu Q7D Take [address] 50,000 unit 2-25 le} capsule by Ariana kes capsule 00:00: mouth once Medi rita 00 a week. [place] VITAMIN D2 2019-0 Yes 1{capsu Q7D Take [address] 50,000 unit 2-25 le} capsule by Ariana kes capsule 00:00: mouth once Medi rita 00 a week. [place] VITAMIN D2 2018-0 Yes 1{capsu Q7D Take [address] 50,000 unit 2-25 le} capsule by Ariana kes capsule 00:00: mouth once Medi rita 00 a week. [place] VITAMIN D2 2018-0 Yes 1{capsu Q7D Take [address] 50,000 unit 2-25 le} capsule by Ariana kes capsule 00:00: mouth once Medi rita 00 a week. [place] VITAMIN D2 Yes 1{capsu Q7D Take [address] 50,000 unit 2-25 le} capsule by Ariana kes capsule 00:00: mouth once Medi rita 00 a week. [place] VITAMIN D2 2018- Yes 1{capsu Q7D Take [address] 50,000 unit 2-25 le} capsule by Ariana kes capsule 00:00: mouth once Medi rita 00 a week. [place] VITAMIN D2 Yes 1{capsu Q7D Take [address] 50,000 unit 2-25 le} capsule by Ariana kes capsule 00:00: mouth once Medi rita 00 a week. [place] VITAMIN D2 2018-0 Yes 1{capsu Q7D Take [address] 50,000 unit 2-25 le} capsule by Ariana kes capsule 00:00: mouth once Medi rita 00 a week. [place] VITAMIN D2 2018-0 Yes 1{capsu Q7D Take [address] 50,000 unit 2-25 le} capsule by Ariana kes capsule 00:00: mouth once Medi rita 00 a week. [place] VITAMIN D2 2018-0 Yes 1{capsu Q7D Take [address] 50,000 unit 2-25 le} capsule by Ariana kes capsule 00:00: mouth once Medi rita 00 a week. Center PROAIR HFA 2019-0 Yes 1{puff} Inhale [address] 90 2-22 puff by Lukes mcg/actuati 00:00: mouth via M ubaldo on inhaler 00 inhaler Center every 6 [...] kg Systolic blood 2022-01-03 15:29:00 124 mm[Hg] [facility] Diastolic blood 2022-01-03 15:29:00 58 mm[Hg] [facility] Heart rate 2022-01-03 15:29:00 106 /min [facility] Body temperature 2022-01-03 15:29:00 36.11 [place] [facility] Respiratory rate 2022-01-03 15:29:00 20 /min [facility] Oxygen saturation in 2022-01-03 15:29:00 93 /min [facility] Arterial blood by Medical Ce nter Pulse oximetry Body weight 2022-01-03 05:27:00 72.485 kg [facility] BMI 2022-01-03 05:27:00 29.23 kg/m2 [facility] Body height 2021-12-28 22:08:00 157.5 cm [facility] Procedures Procedure Date / Time Performed Performing Clinician [facility] e BLOOD CULTURE 2022-01-03 09:49:00 B[place], [facility] CBC W/PLT COUNT & AUTO 2022-01-03 03:49:00 Bora, [facility] BASIC METABOLIC PANEL 2022-01-03 03:49:00 Bora, [facility] CBC W/PLT COUNT & AUTO 2022-01-03 03:49:00 Bora, [facility] (CELLAVISION MANUAL 2022-01-03 03:49:00 Bora, [facility] DIFF) [facility] SARS-COV2/RT-PCR ([facility] & 2022-01-02 21:11:00 Rosio Pollack [facility] REF [facility] CBC W/PLT COUNT & AUTO 2022-01-02 03:16:00 B[place], [facility] BASIC METABOLIC PANEL 2022-01-02 03:16:00 Bora, [facility] CBC W/PLT COUNT & AUTO 2022-01-02 03:16:00 Bora, [facility] (CELLAVISION MANUAL 2022-01-02 03:16:00 Bora, [facility] DIFF) [facility] CBC W/PLT COUNT & AUTO 2021-12-31 09:48:00 B[place], [facility] BASIC METABOLIC PANEL 2021-12-31 09:48:00 Bora, [facility] CBC W/PLT COUNT & AUTO 2021-12-31 09:48:00 Bora, [facility] (CELLAVISION MANUAL 2021-12-31 09:48:00 Bora, [facility] DIFF) [facility] BASIC METABOLIC PANEL 2021-12-30 02:41:00 Rosio Pollack [facility] HEPATIC FUNCTION PANEL 2021-12-30 02:41:00 Rosio Pollack [facility] MAGNESIUM 2021-12-30 02:41:00 Rosio Pollack [facility] CBC W/PLT COUNT & AUTO 2021-12-30 02:41:[address] [facility] DIFFERENTIAL [facility] CBC W/PLT COUNT & AUTO 2021-12-30 02:41:[address] [facility] DIFFERENTIAL [facility] (CELLAVISION MANUAL 2021-12-30 02:41:00 Rosio Pollack [facility] DIFF) [facility] SARS-COV2/RT-PCR ([facility] & 2021-12-29 13:19:[address] [facility] REF LABS) [facility] 2D ECHO W/ DOPPLER 2021-12-29 10:56:17 [facility] (CW/PW[facility]) [facility] ECG 12-LEAD 2021-12-29 04:52:19 Rosio Pollack [facility] ECG 12-LEAD 2021-12-29 04:52:19 Unknown, 7 [facility] ECG 12-LEAD 2021-12-29 04:52:19 Unknown, 7 [facility] ECG 12-LEAD 2021-12-29 04:50:49 Unknown, 7 [facility] ECG 12-LEAD 2021-12-29 04:50:49 Unknown, 7 [facility] BASIC METABOLIC PANEL 2021-12-29 04:50:00 Rosio Pollack [facility] HEPATIC FUNCTION PANEL 2021-12-29 04:50:00 PollackRosio [facility] MAGNESIUM 2021-12-29 04:50:00 PollackRosio [facility] CBC W/PLT COUNT & AUTO 2021-12-29 04:50:[address] [facility] DIFFERENTIAL [facility] CBC W/PLT COUNT & AUTO 2021-12-29 04:50:[address] [facility] DIFFERENTIAL [facility] (CELLAVISION MANUAL 2021-12-29 04:50:00 Rosio Pollack [facility] DIFF) [facility] SCREEN, URINE 2021-12-29 01:52:00 Rosio Pollack [facility] BASIC METABOLIC PANEL 2021-12-28 23:44:00 Rosio Pollack [facility] HEPATIC FUNCTION PANEL 2021-12-28 23:44:00 Rosio Pollack [facility] MAGNESIUM 2021-12-28 23:44:00 Rosio Pollack [facility] PHOSPHORUS 2021-12-28 23:44:00 Rosio Pollack [facility] TSH/FREE T4 IF INDICATED 2021-12-28 23:44:00 Rosio Pollack [facility] B-TYPE NATRIURETIC 2021-12-28 23:44:00 [facility] FA[facility]NP[facility] CBC W/PLT COUNT & AUTO 2021-12-28 23:44:00 Rosio Pollack [facility] DIFFERENTIAL [facility] PROTHROMBIN TIME/INR 2021-12-28 23:44:00 Rosio Pollack [facility] TYPE AND SCREEN, 2021-12-28 23:44:00 Rosio Pollack [facility] AUTOMATED [facility] CBC W/PLT COUNT & AUTO 2021-12-28 23:44:[address] [facility] DIFFERENTIAL [facility] (CELLAVISION MANUAL 2021-12-28 23:44:[address] [facility] DIFF) [facility] XR CHEST 1 VIEW PORTABLE 2021-12-28 23:31:00 Rosio Pollack [facility] / BEDSIDE [facility] HEPATITIS B SURFACE 2021-09-26 05:00:00 [facility] HEPATITIS A ANTIBODY, 2021-09-26 05:00:[address] [facility] IGM [facility] HEPATITIS C ANTIBODY 2021-09-26 05:00:00 [facility] HEPATITIS B CORE 2021-09-26 05:00:[address] [facility] ANTIBODY, TOTAL [facility] HEPATITIS B SURFACE 2021-09-24 21:59:00 JUDITH Torres L ukes ANTIGEN [facility] HEPATITIS B CORE 2021-09-24 21:59:[address] [facility] s ANTIBODY, IGM [facility] HEPATITIS A ANTIBODY, 2021-09-24 21:59:00 JUDITH Torres dejon IGM [facility] HEPATITIS C ANTIBODY 2021-09-24 21:59:00 [facility] HEPATITIS PANEL, ACUTE 2021-09-24 21:59:00 [facility] Plan of Care Planned Activity Planned Date Details Comments Source Future Scheduled 2022-12-[address] [facility] Test 00:[facility] Scre[facility] (12+) [code = Tobacco Cessation Counseling and Screening (12+)] Future Scheduled 2022-12-[address] [facility] Test 00:00:00 [facility] r Screening (12+) [code = Tobacco Cessation Counseling and Screening (12+)] Future Scheduled 2022-12-[address] [facility] Test 00:00:00 [facility] r Screening (12+) [code = Tobacco Cessation Counseling and Screening (12+)] Future Scheduled 2022-12-[address] [facility] Test 00:00:00 [facility] r Screening (12+) [code = Tobacco Cessation Counseling and Screening (12+)] Future Scheduled 2022-12-[address] [facility] Test 00:00:00 [facility] r Screening (12+) [code = Tobacco Cessation Counseling and Screening (12+)] Future Scheduled 2022-05-[address] [facility] Test 00:00:00 (12+) [code = Medical Center DEPRESSION SCREENING (12+)] Future Scheduled 2022-05-[address] [facility] Test 00:00:00 (12+) [code = Medical Center DEPRESSION SCREENING (12+)] Future Scheduled 2022-05-[address] [facility] Test 00:00:00 (12+) [code = Medical Center DEPRESSION SCREENING (12+)] Future Scheduled 2022-05-[address] [facility] Test 00:00:00 (12+) [code = Medical Center DEPRESSION SCREENING (12+)] Future Scheduled 2022-01-11 INFLUENZA VACCINE (#1) C [...] Medica l Center cervix (procedure) [code = 569134345] Future Scheduled 2012-09-[address] [facility] 00:00:00 malignant neoplasm of Medica l Center cervix (procedure) [code = 497008991] Future Scheduled 2012-09-[address] [facility] [facility] Test 00:00:00 malignant neoplasm of Medica l Center cervix (procedure) [code = 985997829] Future Scheduled 2012-09-[address] [facility] Test 00:00:00 malignant neoplasm of Medica l Center cervix (procedure) [code = 221098920] Future Scheduled 2012-09-[address] [facility] [facility] Test 00:00:00 malignant neoplasm of Medica l Center cervix (procedure) [code = 278034538] Future Scheduled 2012-09-[address] [facility] [facility] Test 00:00:00 malignant neoplasm of Medica l Center cervix (procedure) [code = 408358499] Future Scheduled 2012-09-[address] [facility] [facility] Test 00:00:00 malignant neoplasm of Medica l Center cervix (procedure) [code = 391339240] Future Scheduled 2012-09-[address] [facility] Test 00:00:00 malignant neoplasm of Medica l Center cervix (procedure) [code = 643160017] Future Scheduled 2012-09-[address] [facility] Test 00:00:00 malignant neoplasm of Medica l Center cervix (procedure) [code = 620920082] Future Scheduled 2012-09-[address] [facility] Test 00:00:00 malignant neoplasm of Medica l Center cervix (procedure) [code = 748214113] Future Scheduled 2012-09-[address] [facility] Test 00:00:00 malignant neoplasm of Medica l Center cervix (procedure) [code = 326047638] Future Scheduled 2012-09-[address] [facility] Test 00:00:00 malignant neoplasm of Medica l Center cervix (procedure) [code = 387344055] Future Scheduled 2012-09-[address] [facility] Test 00:00:00 malignant neoplasm of Medica l Center cervix (procedure) [code = 223573369] Future Scheduled 2012-09-[address] [facility] Test 00:00:00 malignant neoplasm of Medica l Center cervix (procedure) [code = 490982855] Future Scheduled [address] Test 00:00:00 (procedure) [code = [facility] 36456340] Future Scheduled [address] Test 00:00:00 (procedure) [code = [facility] 20369961] Future Scheduled [address] Test 00:00:00 (procedure) [code = [facility] 65028026] Future Scheduled [address] Test 00:00:00 (procedure) [code = [facility] 17562992] Future Scheduled [address] Test 00:00:00 (procedure) [code = [facility] 04468701] Future Scheduled 2010-09-05 DTAP/TDAP/TD VACCINES CH I [...] Clinicians Facility Department ID 2022-03-14 Outpatient [facility] [id number] PA 15:10:41 [id number] [facility] 2022-03-12 Emergency HFD [facility] [id number] ALICIA - 22:24:00 [facility] ent 2022-06-17 2022-06-[address] [facility] MED [id number] FB 21:54:00 17:25:00 NADA 2022-05-16 2022-05-16 Emergency E DAVID [facility] [id number] [facility] 01:31:00 13:37:00 ELLIE 2022-03-13 2022-03-19 Inpatient E VIDYA [facility] MED [id number] [facility] 13:47:00 17:30:00 CLIFTON 2022-02-19 2022-03-06 Inpatient E HIWOT [facility] MED [id number] [facility] 07:38:00 17:27:00 MARCUS 2022-01-09 2022-01-09 Outpatient SATISH GRISSOM [facility] [id number] [facility] 00:00:00 00:00:00 MAURICIO 2021-12-28 2022-01-03 [facility] [id number] 21:57:00 15:59:00 Encounter Meenu Rodriguez, Kristina Medic al [place] 2021-12-28 2022-01-03 Inpatient UR KRISTINA SAHNI [facility] Med 2 [id number] [facility] 21:57:00 15:59:00 2021-12-28 2022[facility]01-03 [facility] [id number] 21:57:00 15:59:00 Encounter Meenu Rodriguez, Kristina Medic al Center 2021-12-29 2021-12-29 Outpatient [facility] [id number] [employer] 00:00:00 23:59:00 [facility] 2021-12-29 2021-12-29 [facility] [id number] 00:00:00 00:00:00 Only [facility] 2021-12-29 2021-12-29 [facility] [id number] 00:00:00 00:00:00 Only [facility] 2021-09-26 2021-09-26 Lab [facility] [id number] 00:00:00 00:00:00 [facility] 2021-09-26 2021-09-26 Lab [facility] [id number] 00:00:00 00:00:00 [facility] 2021-09-25 2021-09-25 Lab [facility] [id number] 00:00[facility]00 [facility]00[facility]00 [facility] 2021-09-25 2021-09-25 Lab [facility] [id number] 00:00:00 00:00:00 [facility] 2021-06-05 2021-06-08 Inpatient E PERLITA GUTIERREZ MED [id number] [facility] 04:10:00 13:24:00 [facility] 2021-06-03 2021-06-03 Emergency E SUNNY GABRIELE BL [id number] [facility] 02:02:00 14:43:00 RAHEL 2021-04-04 2021-04-04 Emergency E JENNIFER SHAH BL BL [id number] [facility] 02:21:00 06:06:00 2021-02-26 2021-03-04 Inpatient E CARLOS MCCLOUDSW SW [id number] [facility] 15:00:00 16:50:00 AAMIR 2021-02-18 2021-02-23 Inpatient E PERLITA GUTIERREZ MED [id number] [facility] 16:11:00 16:32:00 [facility] 2019-06-14 [...] 1095) No growth in 5 days BLOOD [id number] 13:00:55 Test Item Value Reference Range Interpretation Comments CULTURE (BEAKER) (test No growth in 5 days code = 1095) CBC W/PLT COUNT & AUTO [id number] 07:10:44 Test Item Value Reference Range Interpretation [...] CONCENTRATION Increased (CELLAVISION)(BEAKER) (test code = 3438) Pipefitter ID - emanuel balsaraUser comments: Slide comments:BASIC METABOLIC PANEL 2022-01-03 04:33:47 [...] not appl icable for dialysis patien ts Pipefitter ID - PIETER MSpecimen slightly ictericSARS-CoV2/RT-PCR (Asymptomatic ONLY)2022-01-03 01:56:54 Test Item Value Reference Range Interpretation Comments SARS-COV2/RT-PCR Negative Not Detected, (test code = Negative, See 86870-8) external report for linked test SARS-COV-2 [facility] PERFORMING LAB (test code = 43530-0) RUSLAN (test code = Negative result for [...] of the Act. Fact Sheet for Healthcare Providers:https://www.Perfect Earth/sites/default/f reza/product/documents/F act_Sheet_HC_Providers_L gqd_OFWS-ViG-7.pdf Fact Sheet for Healthcare Patients:https://www.CloudSplit.Arledia/sites/default/fi les/product/documents/Fa ct_Sheet_Patients_Lyra_S ARS-CoV-2.pdf Performing Laboratory:[facility] [place] [address] [facility]2022-01-03 01:56:54 Test Item Value Reference Range Interpretation Comments SARS-COV2/RT-PCR Negative Not Detected, (test code = Negative, See 95896-0) external report for linked test SARS-COV-2 [facility] PERFORMING LAB (test code = 55101-2) RUSLAN (test code = Negative result for [...] of the Act. Fact Sheet for Healthcare Providers:https://www.Perfect Earth/sites/default/f reza/product/documents/F act_Sheet_HC_Providers_L cye_BGJF-VuH-1.pdf Fact Sheet for Healthcare Patients:https://www.Coordi-Care's/sites/default/fi les/product/documents/Fa ct_Sheet_Patients_Lyra_S ARS-CoV-2.pdf Performing Laboratory:[facility] [place] [address] [facility] (Asymptomatic ONLY)2022-01-03 01:56:54 Test Item Value Reference Range Interpretation Comments SARS-COV2/RT-PCR Negative Not Detected, (test code = Negative, See 61426-2) external report for linked test SARS-COV-2 [facility] PERFORMING LAB (test code = 84761-9) RUSLAN (test code = Negative result for [...] of the Act. Fact Sheet for Healthcare Providers:https://www.Genometry idel.com/sites/default/f reza/product/documents/F act_Sheet_HC_Providers_L puk_EGEC-KeM-3.pdf Fact Sheet for Healthcare Patients:https://www.jonathan del.com/sites/default/fi les/product/documents/Fa ct_Sheet_Patients_Lyra_S ARS-CoV-2.pdf Performing Laboratory:[facility], [place] [address] [place], [place] [address]ARS-CoV2/RT-PCR (Asymptomatic ONLY)2022-01-03 01:56:54 Test Item Value Reference Range Interpretation Comments SARS-COV2/RT-PCR Negative Not Detected, (test code = Negative, See 03498-9) external report for linked test SARS-COV-2 [facility] PERFORMING LAB (test code = 06436-2) RUSLAN (test code = Negative result for [...] of the Act. Fact Sheet for Healthcare Providers:https://www.Genometry ideShort Fuze.Arledia/sites/default/f reza/product/documents/F act_Sheet_HC_Providers_L pfq_ILWQ-VzL-9.pdf Fact Sheet for Healthcare Patients:https://www.CloudSplit.Arledia/sites/default/fi les/product/documents/Fa ct_Sheet_Patients_Lyra_S ARS-CoV-2.pdf Performing Laboratory:[facility] [place] [place] [address] [facility]omatic ONLY)2022-01-03 01:56:54 Test Item Value Reference Range Interpretation Comments SARS-COV2/RT-PCR Negative Not Detected, (test code = Negative, See 72016-5) external report for linked test SARS-COV-2 [facility] PERFORMING LAB (test code = 42326-1) RUSLAN (test code = Negative result for [...] of the Act. Fact Sheet for Healthcare Providers:https://www.Ecowell.Arledia/sites/default/f reza/product/documents/F act_Sheet_HC_Providers_L neq_LZNO-RrV-2.pdf Fact Sheet for Healthcare Patients:https://www.CloudSplit.com/sites/default/fi les/product/documents/Fa ct_Sheet_Patients_Ly_S ARS-CoV-2.pdf Performing Laboratory:[facility] [place] [address] [facility]omatic ONLY[facility]2022-01-03 01:56:54 Test Item Value Reference Range Interpretation Comments SARS-COV2/RT-PCR Negative Not Detected, (test code = Negative, See 55792-5) external report for linked test SARS-COV-2 [facility] PERFORMING LAB (test code = 48576-2) RUSLAN (test code = Negative result for [...] of the Act. Fact Sheet for Healthcare Providers:https://www.Ecowell.Arledia/sites/default/f reza/product/documents/F act_Sheet_HC_Providers_L gui_PEWU-GaJ-3.pdf Fact Sheet for Healthcare Patients:https://www.CloudSplit.Arledia/sites/default/fi les/product/documents/Fa ct_Sheet_Patients_Ly_S ARS-CoV-2.pdf Performing Laboratory:[facility] [place] [address] [facility]omatic ONLY)2022-01-03 01:56:54 Test Item Value Reference Range Interpretation Comments SARS-COV2/RT-PCR Negative Not Detected, (test code = Negative, See 02275-6) external report for linked test SARS-COV-2 [facility] PERFORMING LAB (test code = 42972-3) RUSLAN (test code = Negative result for [...] of the Act. Fact Sheet for Healthcare Providers:https://www.Perfect Earth/sites/default/f reza/product/documents/F act_Sheet_HC_Providers_L mfs_YXBN-CqE-1.pdf Fact Sheet for Healthcare Patients:https://www.Coordi-Care's/sites/default/fi les/product/documents/Fa ct_Sheet_Patients_Lyra_S ARS-CoV-2.pdf Performing Laboratory:[facility] [place] [address] [facility]As[facility]omatic ONLY)2022-01-03 01:56:54 Test Item Value Reference Range Interpretation Comments SARS-COV2/RT-PCR Negative Not Detected, (test code = Negative, See 30379-9) external report for linked test SARS-COV-2 [facility] PERFORMING LAB (test code = 72073-3) RUSLAN (test code = Negative result for [...] of the Act. Fact Sheet for Healthcare Providers:https://www.Perfect Earth/sites/default/f reza/product/documents/F act_Sheet_HC_Providers_L rgg_UCDT-MuA-1.pdf Fact Sheet for Healthcare Patients:https://www.Coordi-Care's/sites/default/fi les/product/documents/Fa ct_Sheet_Patients_Lyra_S ARS-CoV-2.pdf Performing Laboratory:[facility] [place] [address] [facility] (Asymptomatic ONLY)2022-01-03 01:56:54 Test Item Value Reference Range Interpretation Comments SARS-COV2/RT-PCR Negative Not Detected, (test code = Negative, See 13824-8) external report for linked test SARS-COV-2 [facility] PERFORMING LAB (test code = 74879-9) RUSLAN (test code = Negative result for [...] of the Act. Fact Sheet for Healthcare Providers:https://www.Perfect Earth/sites/default/f reza/product/documents/F act_Sheet_HC_Providers_L ltv_UNWN-WfB-6.pdf Fact Sheet for Healthcare Patients:https://www.Coordi-Care's/sites/default/fi les/product/documents/Fa ct_Sheet_Patients_Lyra_S ARS-CoV-2.pdf Performing Laboratory:[place] [address] [address]/RT-PCR ([facility])2022-01-03 01:56:54 Test Item Value Reference Range Interpretation Comments SARS-COV2/RT-PCR (test Negative Not Detected, Negative, code = 9721504) See external report for linked test SARS-COV-[address] [facility] (test code = 1273681) Negative result for this test determines that [...] of the Act.Fact Sheet for Healthcare Prov iders:https://www.Samanta Shoes/sites/default/files/product/documents/Fact_Sheet_HC _Fcmtmoshc_Hljn_APHC-QhI-0.pdfFact Sheet for Healthcare Patients:https://www.Samanta Shoes/sites/default/files/product/docume nts/Lvet_Jdftl_Xfgxghbg_Idgh_RUCE-DhM-3.pdfPerforming Laboratory:[facility] [place] [address](CELLAVISION MANUAL DIFF) 2022-01-02 07:09:24 Test Item Value [...] CONCENTRATION Increased (CELLAVISION)(BEAKER) (test code = 3438) Pipefitter ID - Martine OverholtUser comments: Slide comments:CBC W/PLT COUNT & AUTO [id number] 07:09:23 Test Item Value Reference Range Interpretation [...] (BEAKER) (test code = 413) BASIC METABOLIC [id number] 03:43:56 Test Item Value Reference Range Interpretation [...] not appl icable for dialysis patien ts Pipefitter ID - PIAYA LSpecimen slightly icteric(CELLAVISION MANUAL [...] 767) ARTIFACT (CELLAVISION)(BEAKER) Present (test code = 1352) PLATELET CONCENTRATION Increased (CELLAVISION)(BEAKER) (test code = 3438) Pipefitter ID - 6000Operator ID - Martine OverholtUser comments: Slide comments:CBC W/PLT COUNT & AUTO [id number] 11:06:13 Test Item Value Reference Range Interpretation [...] (BEAKER) (test code = 413) BASIC METABOLIC [id number] 10:23:17 Test Item Value Reference Range Interpretation [...] not appl icable for dialysis patien ts Pipefitter ID - MITCHCBC W/PLT COUNT & AUTO [id number] 03:54:02 Test Item Value Reference Range Interpretation [...] CONCENTRATION Increased (CELLAVISION)(BEAKER) (test code = 3438) Pipefitter ID - Cornelius Santos comments: Slide comments:BASIC [...] not appl icable for dialysis patien ts Pipefitter ID - PIETER [id number] 03:27:46 Test Item Value Reference Range Interpretation Comments MAGNESIUM (BEAKER) (test code = 1.5 mg/dL 1.6-2.6 L 627) Pipefitter ID - PIETER MHEPATIC FUNCTION [id number] 03:27:46 Test Item Value Reference Range Interpretation [...] (test code = 50 U/L 6-55 347) Pipefitter ID - PIETER MSARS-COV2/RT-PCR ([facility])2021-12-29 20:53:09 Test Item Value Reference Range Interpretation Comments SARS-COV2/RT-PCR (test Negative Not Detected, Negative, code = 5974995) See external report for linked test SARS-COV-[address] [facility] (test code = 2583497) Negative result for this test determines that [...] of the Act.Fact Sheet for Healthcare Prov iders:https://www.Samanta Shoes/sites/default/files/product/documents/Fact_Sheet_HC _Zbdvamwoe_Alxf_YIKB-QaM-9.pdfFact Sheet for Healthcare Patients:https://www.Samanta Shoes/sites/default/files/product/docume nts/Hhjk_Zhkbi_Ymapkogb_Sqbe_CMNQ-KaU-7.pdfPerforming Laboratory:[place] [address], [place] [address]Enrptvyvnbqwt 2D echo w/ doppler (cw/pw/color)2021-12-29 15:36:58Ejection FractionSLEH ECHO HEARTLAB [facility] do[facility] (cw/pw/color)2021-12-29 15:36:58Ejection FractionSLEH ECHO HEARTLAB [facility] w/ doppler (cw/pw/color) 2021-12-29 15:36:58Ejection FractionSLEH ECHO HEARTLAB [facility]/ doppler (cw/pw/color)2021-12-29 15:36:58Ejection [facility]SLEH [facility]w/pw/color)2021-12-29 15:36:58Ejection FractionSLEH ECHO HEARTLAB [facility] Transthoracic 2D echo w/ doppler (cw/pw/color)2021-12-29 15:36:58Ejection FractionSLEH ECHO HEARTLAB [facility] Transthoracic 2D echo w/ doppler (cw/pw/color)2021-12-29 15:36:58Ejection FractionSLEH ECHO HEARTLAB [facility] Transthoracic 2D echo w/ doppler (cw/pw/color)2021-12-29 15:36:58Ejection FractionSLEH ECHO HEARTLAB [facility] Transthoracic 2D echo w/ doppler (cw/pw/color)2021-12-29 15:36:58Ejection FractionSLE ECHO [facility] (CELLAVISION MANUAL DIFF)2021-12-29 07:16:35 Test Item Value Reference [...] CONCENTRATION Increased (CELLAVISION)(BEAKER) (test code = 3438) Pipefitter ID - emanuel Duke comments: Slide comments:CBC W/PLT COUNT & AUTO [id number] 07:16:31 Test Item Value Reference Range Interpretation [...] 964) ARTIFACT (CELLAVISION)(BEAKER) Present (test code = 4942) PLATELET CONCENTRATION Increased (CELLAVISION)(BEAKER) (test code = 3438) Pipefitter ID - emanuel Duke comments: Slide comments:CBC W/PLT COUNT & AUTO [id number] 07:16:30 Test Item Value Reference Range Interpretation [...] 0-0 H (BEAKER) (test code = 413) [id number] 06:49:49 Test Item Value Reference Range Interpretation Comments MAGNESIUM (BEAKER) (test code = 1.4 mg/dL 1.6-2.6 L 627) Pipefitter ID - PIETER CARLOSEPATIC FUNCTION [id number] 06:49:49 Test Item Value Reference Range Interpretation [...] (test code = 43 U/L 6-55 347) Pipefitter ID - PIETER MBASIC METABOLIC [id number] 06:49:48 Test Item Value Reference Range Interpretation [...] not appl icable for dialysis patien ts Pipefitter ID - PIETER MPregnancy Screen, [id number] 03:16:32 Test Item Value Reference Range Interpretation Comments Preg Test, Ur (test code = 2112-1) Negative Negative Lab Interpretation (test code = Normal 09413-9) [facility] [id number] 03:16:32 Test Item Value Reference Range Interpretation Comments Preg Test, Ur (test code = 2112-1) Negative Negative Lab Interpretation (test code = Normal 33957-4) [facility], [id number] 03:16:32 Test Item Value Reference Range Interpretation Comments Preg Test, Ur (test code = 2112-1) Negative Negative Lab Interpretation (test code = Normal 86835-5) [facility], [id number] 03:16:32 Test Item Value Reference Range Interpretation Comments Preg Test, Ur (test code = 2112-1) Negative Negative Lab Interpretation (test code = Normal 54737-0) [facility], [id number] 03:16:32 Test Item Value Reference Range Interpretation Comments Preg Test, Ur (test code = 2112-1) Negative Negative Lab Interpretation (test code = Normal 79667-2) [facility], [id number] 03:16:32 Test Item Value Reference Range Interpretation Comments Preg Test, Ur (test code = 2112-1) Negative Negative Lab Interpretation (test code = Normal 73043-5) [facility], [id number] 03:16:32 Test Item Value Reference Range Interpretation Comments Preg Test, Ur (test code = 2112-1) Negative Negative Lab Interpretation (test code = Normal 15842-5) [facility], [id number] 03:16:32 Test Item Value Reference Range Interpretation Comments Preg Test, Ur (test code = 2112-1) Negative Negative Lab Interpretation (test code = Normal 50278-4) [facility], [id number] 03:16:32 Test Item Value Reference Range Interpretation Comments Preg Test, Ur (test code = 2112-1) Negative Negative Lab Interpretation (test code = Normal 10957-4) [facility] HospitalPREG[facility]NCY SCREEN, [id number] 03:16:32 Test Item Value Reference Range Interpretation Comments TEST URINE (BEAKER) (test Negative Negative code = 583) TSH/FREE T4 IF [id number] 00:37:03 Test Item Value Reference Range Interpretation Comments THYROID STIMULATING HORMONE 1.144 uIU/mL 0.350-4.940 (BEAKER) (test code = 772) Pipefitter ID Deana HARRY [id number] 00:23:22 Test Item Value Reference Range Interpretation Comments PHOSPHORUS (BEAKER) (test code = 3.6 mg/dL 2.3-4.7 604) Pipefitter ID Deana HARRY LHEPATIC FUNCTION [id number] 00:23:22 Test Item Value Reference Range Interpretation [...] (test code = 45 U/L 6-55 347) Pipefitter LIVIA HARRY LBASIC METABOLIC [id number] 00:23:21 Test Item Value Reference Range Interpretation [...] not appl icable for dialysis patien ts Pipefitter ID - PIERO [id number] 00:23:21 Test Item Value Reference Range Interpretation Comments MAGNESIUM (AILEEN) (test code = 1.7 mg/dL 1.6-2.6 627) Pipefitter ID - PIERO LB-TYPE NATRIURETIC FACTOR (BNP)2021-12-29 00:22:19 Test Item Value Reference Range Interpretation Comments B-TYPE NATRIURETIC PEPTIDE (AILEEN) 12 pg/mL 0-100 (test code = 700) Pipefitter ID - PIERO LPROTHROMBIN TIME/[id number] 00:13:42 Test Item Value Reference Range Interpretation Comments PROTIME (AILEEN) 14.2 seconds 11.9-14.2 (test code = 759) INR (AILEEN) (test 1.13 See_Comment [Automat ed message] code = 370) The system sonarDesign generated this result transmitted ref erence range: <=5.90. The reference range was not used to int erpret this result as normal/abnormal . RECOMMENDED COUMADIN/WARFARIN INR THERAPY RANGESSTANDARD DOSE: 2.0 - 3.0 Includes: PROPHYLAXIS for venous thrombosis, systemic embolization; TREATMENT for venous thrombosis and/or pulmonary embolus.HIGH RISK: Target INR is 2.5-3.5 for patients with mechanical heart valves.RAD, CHEST, 1 VIEW, NON [id number] 23:56:00Reason for exam:->dyspnea; sickle cell crisisIs the patient ?->UnknownShould this be performed at the bedside?->Yes [facility] 1990 Sex: FFINAL REPORT History: dyspnea; [...] port remains in place. Signed: Marcy Eaton [facility] Verified Date/Time: 12/28/2021 23:56:16 Hepatitis B core antibody, [id number] 11:45:17 Test Item Value Reference Range Interpretation Comments Hep B Core Total Ab (test Nonreactive Nonreactive code = 50295-8) RUSLAN (test code = RUSLAN) Pipefitter ID - DB Lab Interpretation (test Normal code = 81328-9) [facility] [id number] 11:45:17 Test Item Value Reference Range Interpretation Comments Hep A IgM (test code = Nonreactive Nonreactive 46598-8) RUSLAN (test code = RUSLAN) Pipefitter ID - DB Lab Interpretation (test Normal code = 80799-8) [facility] [id number] 11:45:17 Test Item Value Reference Range Interpretation Comments Hepatitis C Ab (test code = Nonreactive Nonreactive 64382-9) RUSLAN (test code = RUSLAN) Pipefitter ID - DB Lab Interpretation (test Normal code = 02316-7) [facility] core antibody, [id number] 11:45:17 Test Item Value Reference Range Interpretation Comments Hep B Core Total Ab (test Nonreactive Nonreactive code = 93536-1) RUSLAN (test code = RUSLAN) Pipefitter ID - DB Lab Interpretation (test Normal code = 60363-6) [facility], [id number] 11:45:17 Test Item Value Reference Range Interpretation Comments Hep A IgM (test code = Nonreactive Nonreactive 10035-9) RUSLAN (test code = RUSLAN) Pipefitter ID - DB Lab Interpretation (test Normal code = 39538-7) [facility] C [id number] 11:45:17 Test Item Value Reference Range Interpretation Comments Hepatitis C Ab (test code = Nonreactive Nonreactive 43251-2) RUSLAN (test code = RUSLAN) Pipefitter ID - DB Lab Interpretation (test Normal code = 28954-2) [facility] B core antibody, [id number] 11:45:17 Test Item Value Reference Range Interpretation Comments Hep B Core Total Ab (test Nonreactive Nonreactive code = 97978-0) RUSLAN (test code = RUSLAN) Pipefitter ID - DB Lab Interpretation (test Normal code = 79434-2) [facility], [id number] 11:45:17 Test Item Value Reference Range Interpretation Comments Hep A IgM (test code = Nonreactive Nonreactive 05605-2) RUSLAN (test code = RUSLAN) Pipefitter ID - DB Lab Interpretation (test Normal code = 02639-7) [facility] C [id number] 11:45:17 Test Item Value Reference Range Interpretation Comments Hepatitis C Ab (test code = Nonreactive Nonreactive 79734-3) RUSLAN (test code = RUSLAN) Pipefitter ID - DB Lab Interpretation (test Normal code = 74629-5) [facility] B core antibody, [id number] 11:45:17 Test Item Value Reference Range Interpretation Comments Hep B Core Total Ab (test Nonreactive Nonreactive code = 68649-8) RUSLAN (test code = RUSLAN) Pipefitter ID - DB Lab Interpretation (test Normal code = 86875-6) [facility], [id number] 11:45:17 Test Item Value Reference Range Interpretation Comments Hep A IgM (test code = Nonreactive Nonreactive 22467-7) RUSLAN (test code = RUSLAN) Pipefitter ID - DB Lab Interpretation (test Normal code = 83926-3) [facility] C [id number] 11:45:17 Test Item Value Reference Range Interpretation Comments Hepatitis C Ab (test code = Nonreactive Nonreactive 65651-7) RUSLAN (test code = RUSLAN) Pipefitter ID - DB Lab Interpretation (test Normal code = 90043-6) [facility] B core antibody, [id number] 11:45:17 Test Item Value Reference Range Interpretation Comments Hep B Core Total Ab (test Nonreactive Nonreactive code = 16392-7) RUSLAN (test code = RUSLAN) Pipefitter ID - DB Lab Interpretation (test Normal code = 40180-0) [facility], [id number] 11:45:17 Test Item Value Reference Range Interpretation Comments Hep A IgM (test code = Nonreactive Nonreactive 09021-3) RUSLAN (test code = RUSLAN) Pipefitter ID - DB Lab Interpretation (test Normal code = 75658-8) [facility] C [id number] 11:45:17 Test Item Value Reference Range Interpretation Comments Hepatitis C Ab (test code = Nonreactive Nonreactive 62345-2) RUSLAN (test code = RUSLAN) Pipefitter ID - DB Lab Interpretation (test Normal code = 40477-7) [facility] B core antibody, [id number] 11:45:17 Test Item Value Reference Range Interpretation Comments Hep B Core Total Ab (test Nonreactive Nonreactive code = 43104-8) RUSLAN (test code = RUSLAN) Pipefitter ID - DB Lab Interpretation (test Normal code = 81854-4) [facility], [id number] 11:45:17 Test Item Value Reference Range Interpretation Comments Hep A IgM (test code = Nonreactive Nonreactive 74102-0) RUSLAN (test code = RUSLAN) Pipefitter ID - DB Lab Interpretation (test Normal code = 72382-5) [facility] C [id number] 11:45:17 Test Item Value Reference Range Interpretation Comments Hepatitis C Ab (test code = Nonreactive Nonreactive 72900-8) RUSLAN (test code = RUSLAN) Pipefitter ID - DB Lab Interpretation (test Normal code = 17679-1) [facility] B core antibody, [id number] 11:45:17 Test Item Value Reference Range Interpretation Comments Hep B Core Total Ab (test Nonreactive Nonreactive code = 38885-3) RUSLAN (test code = RUSLAN) Pipefitter ID - DB Lab Interpretation (test Normal code = 22848-7) [facility], [id number] 11:45:17 Test Item Value Reference Range Interpretation Comments Hep A IgM (test code = Nonreactive Nonreactive 55436-2) RUSLAN (test code = RUSLAN) Pipefitter ID - DB Lab Interpretation (test Normal code = 68370-5) [facility] C [id number] 11:45:17 Test Item Value Reference Range Interpretation Comments Hepatitis C Ab (test code = Nonreactive Nonreactive 11050-1) RUSLAN (test code = RUSLAN) Pipefitter ID - DB Lab Interpretation (test Normal code = 11754-8) [facility] B core antibody, [id number] 11:45:17 Test Item Value Reference Range Interpretation Comments Hep B Core Total Ab (test Nonreactive Nonreactive code = 10766-1) RUSLAN (test code = RUSLAN) Pipefitter ID - DB Lab Interpretation (test Normal code = 98960-3) [facility], [id number] 11:45:17 Test Item Value Reference Range Interpretation Comments Hep A IgM (test code = Nonreactive Nonreactive 41611-5) RUSLAN (test code = RUSLAN) Pipefitter ID - DB Lab Interpretation (test Normal code = 59455-1) [facility] C [id number] 11:45:17 Test Item Value Reference Range Interpretation Comments Hepatitis C Ab (test code = Nonreactive Nonreactive 51623-0) RUSLAN (test code = RUSLAN) Pipefitter ID - DB Lab Interpretation (test Normal code = 32869-9) [facility], [id number] 11:45:17 Test Item Value Reference Range Interpretation Comments Hep A IgM (test code = Nonreactive Nonreactive 08006-3) RUSLAN (test code = RUSLAN) Pipefitter ID - DB Lab Interpretation (test Normal code = 93565-0) [facility] [id number] 11:45:17 Test Item Value Reference Range Interpretation Comments Hepatitis C Ab (test code = Nonreactive Nonreactive 78998-4) RUSLAN (test code = RUSLAN) Pipefitter ID - DB Lab Interpretation (test Normal code = 35586-0) [facility] core antibody, [id number] 11:45:17 Test Item Value Reference Range Interpretation Comments Hep B Core Total Ab (test Nonreactive Nonreactive code = 15444-8) RUSLAN (test code = RUSLAN) Pipefitter ID - DB Lab Interpretation (test Normal code = 53324-0) [facility]IS C [id number] 11:45:17 Test Item Value Reference Range Interpretation Comments HEPATITIS C ANTIBODY (BEAKER) Nonreactive Nonreactive (test code = 367) Pipefitter ID - DBHEPATITIS A ANTIBODY, [id number] 11:45:17 Test Item Value Reference Range Interpretation Comments HEPATITIS A IGM ANTIBODY (BEAKER) Nonreactive Nonreactive (test code = 498) Pipefitter ID - DBHEPATITIS B CORE ANTIBODY, [id number] 11:45:17 Test Item Value Reference Range Interpretation Comments HEPATITIS B CORE TOTAL ANTIBODY Nonreactive Nonreactive (BEAKER) (test code = 497) Pipefitter ID - DBHepatitis B surface [id number] 11:45:12 Test Item Value Reference Range Interpretation Comments Hepatitis B surface Nonreactive Nonreactive antigen (test code = 5195-3) RUSLAN (test code = RUSLAN) Specimen is considered negative for HBsAg. Lab Interpretation (test Normal code = 73607-9) [facility] surface [id number] 11:45:12 Test Item Value Reference Range Interpretation Comments Hepatitis B surface Nonreactive Nonreactive antigen (test code = 5195-3) RUSLAN (test code = RUSLAN) Specimen is considered negative for HBsAg. Lab Interpretation (test Normal code = 17534-6) [facility] surface [id number] 11:45:12 Test Item Value Reference Range Interpretation Comments Hepatitis B surface Nonreactive Nonreactive antigen (test code = 5195-3) RUSLAN (test code = RUSLAN) Specimen is considered negative for HBsAg. Lab Interpretation (test Normal code = 41896-0) [facility] surface [id number] 11:45:12 Test Item Value Reference Range Interpretation Comments Hepatitis B surface Nonreactive Nonreactive antigen (test code = 5195-3) RUSLAN (test code = RUSLAN) Specimen is considered negative for HBsAg. Lab Interpretation (test Normal code = 14995-6) [facility] surface [id number] 11:45:12 Test Item Value Reference Range Interpretation Comments Hepatitis B surface Nonreactive Nonreactive antigen (test code = 5195-3) RUSLAN (test code = RUSLAN) Specimen is considered negative for HBsAg. Lab Interpretation (test Normal code = 16666-2) [facility] B surface [id number] 11:45:12 Test Item Value Reference Range Interpretation Comments Hepatitis B surface Nonreactive Nonreactive antigen (test code = 5195-3) RUSLAN (test code = RUSLAN) Specimen is considered negative for HBsAg. Lab Interpretation (test Normal code = 27896-6) [facility] surface [id number] 11:45:12 Test Item Value Reference Range Interpretation Comments Hepatitis B surface Nonreactive Nonreactive antigen (test code = 5195-3) RUSLAN (test code = RUSLAN) Specimen is considered negative for HBsAg. Lab Interpretation (test Normal code = 21721-3) [facility] [id number] 11:45:12 Test Item Value Reference Range Interpretation Comments Hepatitis B surface Nonreactive Nonreactive antigen (test code = 5195-3) RUSLAN (test code = RUSLAN) Specimen is considered negative for HBsAg. Lab Interpretation (test Normal code = 27271-9) [facility] [id number] 11:45:12 Test Item Value Reference Range Interpretation Comments Hepatitis B surface Nonreactive Nonreactive antigen (test code = 5195-3) RUSLAN (test code = RUSLAN) Specimen is considered negative for HBsAg. Lab Interpretation (test Normal code = 07104-7) [facility] B SURFACE [id number] 11:45:12 Test Item Value Reference Range Interpretation Comments HEPATITIS B SURFACE ANTIGEN (2) Nonreactive Nonreactive (BEAKER) (test code = 2585) Specimen is considered negative for HBsAg.Hepatitis B core antibody, IgM 2021-09-25 19:51:14 Test Item Value Reference Range Interpretation Comments Hep B C IgM (test code = 55757-4) Nonreactive Nonreactive Lab Interpretation (test code = Normal 59078-2) [facility] panel, [id number] 19:51:14 Test Item Value Reference Range Interpretation Comments Hep A IgM (test code = Nonreactive Nonreactive 19948-2) Hep B C IgM (test code = Nonreactive Nonreactive 76849-0) Hepatitis C Ab (test code = Nonreactive Nonreactive 53544-3) Hepatitis B surface antigen Nonreactive Nonreactive (test code = 5195-3) RUSLAN (test code = RUSLAN) Pipefitter ID - DB Lab Interpretation (test Normal code = 79414-4) [facility] B core antibody, [id number] 19:51:14 Test Item Value Reference Range Interpretation Comments Hep B C IgM (test code = 41190-0) Nonreactive Nonreactive Lab Interpretation (test code = Normal 97525-5) [facility] panel, [id number] 19:51:14 Test Item Value Reference Range Interpretation Comments Hep A IgM (test code = Nonreactive Nonreactive 95882-5) Hep B C IgM (test code = Nonreactive Nonreactive 75818-6) Hepatitis C Ab (test code = Nonreactive Nonreactive 16094-4) Hepatitis B surface antigen Nonreactive Nonreactive (test code = 5195-3) RUSLAN (test code = RUSLAN) Pipefitter ID - DB Lab Interpretation (test Normal code = 60658-4) [facility], [id number] 19:51:14 Test Item Value Reference Range Interpretation Comments Hep B C IgM (test code = 62511-3) Nonreactive Nonreactive Lab Interpretation (test code = Normal 15782-8) [facility] panel, [id number] 19:51:14 Test Item Value Reference Range Interpretation Comments Hep A IgM (test code = Nonreactive Nonreactive 18141-7) Hep B C IgM (test code = Nonreactive Nonreactive 47295-7) Hepatitis C Ab (test code = Nonreactive Nonreactive 67428-3) Hepatitis B surface antigen Nonreactive Nonreactive (test code = 5195-3) RUSLAN (test code = RUSLAN) Pipefitter ID - DB Lab Interpretation (test Normal code = 91245-8) [facility], [id number] 19:51:14 Test Item Value Reference Range Interpretation Comments Hep B C IgM (test code = 46077-5) Nonreactive Nonreactive Lab Interpretation (test code = Normal 69376-4) [facility] panel, [id number] 19:51:14 Test Item Value Reference Range Interpretation Comments Hep A IgM (test code = Nonreactive Nonreactive 11887-3) Hep B C IgM (test code = Nonreactive Nonreactive 69147-2) Hepatitis C Ab (test code = Nonreactive Nonreactive 79673-1) Hepatitis B surface antigen Nonreactive Nonreactive (test code = 5195-3) RUSLAN (test code = RUSLAN) Pipefitter ID - DB Lab Interpretation (test Normal code = 52463-7) [facility] B core antibody, [id number] 19:51:14 Test Item Value Reference Range Interpretation Comments Hep B C IgM (test code = 41378-9) Nonreactive Nonreactive Lab Interpretation (test code = Normal 98639-3) [facility] panel, [id number] 19:51:14 Test Item Value Reference Range Interpretation Comments Hep A IgM (test code = Nonreactive Nonreactive 20403-1) Hep B C IgM (test code = Nonreactive Nonreactive 86648-7) Hepatitis C Ab (test code = Nonreactive Nonreactive 85773-9) Hepatitis B surface antigen Nonreactive Nonreactive (test code = 5195-3) RUSLAN (test code = RUSLAN) Pipefitter ID - DB Lab Interpretation (test Normal code = 71320-4) [facility], [id number] 19:51:14 Test Item Value Reference Range Interpretation Comments Hep B C IgM (test code = 00235-5) Nonreactive Nonreactive Lab Interpretation (test code = Normal 18725-5) [facility] panel, [id number] 19:51:14 Test Item Value Reference Range Interpretation Comments Hep A IgM (test code = Nonreactive Nonreactive 67528-0) Hep B C IgM (test code = Nonreactive Nonreactive 66360-6) Hepatitis C Ab (test code = Nonreactive Nonreactive 15877-2) Hepatitis B surface antigen Nonreactive Nonreactive (test code = 5195-3) RUSLAN (test code = RUSLAN) Pipefitter ID - DB Lab Interpretation (test Normal code = 98198-8) [facility], [id number] 19:51:14 Test Item Value Reference Range Interpretation Comments Hep B C IgM (test code = 10111-1) Nonreactive Nonreactive Lab Interpretation (test code = Normal 61288-7) [facility] panel, [id number] 19:51:14 Test Item Value Reference Range Interpretation Comments Hep A IgM (test code = Nonreactive Nonreactive 27659-9) Hep B C IgM (test code = Nonreactive Nonreactive 96722-2) Hepatitis C Ab (test code = Nonreactive Nonreactive 01429-0) Hepatitis B surface antigen Nonreactive Nonreactive (test code = 5195-3) RUSLAN (test code = RUSLAN) Pipefitter ID - DB Lab Interpretation (test Normal code = 55562-8) [facility], [id number] 19:51:14 Test Item Value Reference Range Interpretation Comments Hep B C IgM (test code = 67824-2) Nonreactive Nonreactive Lab Interpretation (test code = Normal 38951-5) [facility] panel, [id number] 19:51:14 Test Item Value Reference Range Interpretation Comments Hep A IgM (test code = Nonreactive Nonreactive 50451-7) Hep B C IgM (test code = Nonreactive Nonreactive 17112-4) Hepatitis C Ab (test code = Nonreactive Nonreactive 99556-0) Hepatitis B surface antigen Nonreactive Nonreactive (test code = 5195-3) RUSLAN (test code = RUSLAN) Pipefitter ID - DB Lab Interpretation (test Normal code = 85336-0) [facility], [id number] 19:51:14 Test Item Value Reference Range Interpretation Comments Hep B C IgM (test code = 76585-6) Nonreactive Nonreactive Lab Interpretation (test code = Normal 60844-3) [facility], [id number] 19:51:14 Test Item Value Reference Range Interpretation Comments Hep A IgM (test code = Nonreactive Nonreactive 23220-8) Hep B C IgM (test code = Nonreactive Nonreactive 57076-5) Hepatitis C Ab (test code = Nonreactive Nonreactive 52074-8) Hepatitis B surface antigen Nonreactive Nonreactive (test code = 5195-3) RUSLAN (test code = RUSLAN) Pipefitter ID - DB Lab Interpretation (test Normal code = 14008-6) [facility], [id number] 19:51:14 Test Item Value Reference Range Interpretation Comments HEPATITIS A IGM ANTIBODY (BEAKER) Nonreactive Nonreactive (test code = 498) HEPATITIS B CORE IGM ANTIBODY Nonreactive Nonreactive (BEAKER) (test code = 645) HEPATITIS C ANTIBODY (BEAKER) Nonreactive Nonreactive (test code = 367) HEPATITIS B SURFACE ANTIGEN (2) Nonreactive Nonreactive (BEAKER) (test code = 2585) Pipefitter ID - DBHEPATITIS A ANTIBODY, [id number] 19:51:14 Test Item Value Reference Range Interpretation Comments HEPATITIS A IGM ANTIBODY (BEAKER) Nonreactive Nonreactive (test code = 498) HEPATITIS B CORE ANTIBODY, [id number] 19:51:14 Test Item Value Reference Range Interpretation Comments HEPATITIS B CORE IGM ANTIBODY Nonreactive Nonreactive (BEAKER) (test code = 645) HEPATITIS B SURFACE [id number] 19:51:14 Test Item Value Reference Range Interpretation Comments HEPATITIS B SURFACE ANTIGEN (2) Nonreactive Nonreactive (BEAKER) (test code = 2585) Specimen is considered negative for HBsAg.HEPATITIS C [id number] 19:51:14 Test Item Value Reference Range Interpretation Comments HEPATITIS C ANTIBODY (BEAKER) Nonreactive Nonreactive (test code = 367) SARS-COV2/RT-PCR ([facility])2019-11-14 17:47:00 Test Item Value Reference Range Interpretation Comments SARS-COV2/RT-PCR (test code = Negative Not Detected, Negative 1954851) SARS-COV-[address] [facility] (test code = 9868641) Negative results do not preclude SARS-CoV-2 infection [...] of the Act.Fact Sheet for Healthcare Pro viders:https://www.myVBO/Documents/Xpert%20Xpress%20SARS%20CoV-2/Fact%20Sh eets/3023802%80WYVF-UKZ-3%20HEALTHCARE%20PROVIDERS%20FACT%20SHEET.pdfFact Sheet for Healthcare Patients:https://www.Aarki/Documents/Xpert%20Xpress%20SARS%20CoV-2/Fact%20Sheets/3023801%20SARS-COV -2%20PATIENT%20FACT%20SHEET.pdfPerforming Laboratory:[facility], [place] [address]HVZ W/PLT COUNT & AUTO DIFFERENTIAL 2018-08-10 08:25:00 [...] 3438) Received comment: User comments: Slide comments:RETICULOCYTE [id number] 08:06:00 Test Item Value Reference Range Interpretation Comments RETICULOCYTE COUNT PCT (BEAKER) (test 25.0 % 0.5-1.7 H code = 575) CBC W/PLT COUNT & AUTO [id number] 09:27:00 Test Item Value Reference Range Interpretation [...] 3438) Received comment: User comments: Slide comments:RETICULOCYTE [id number] 05:01:00 Test Item Value Reference Range Interpretation Comments RETICULOCYTE COUNT PCT (BEAKER) (test 21.6 % 0.5-1.7 H code = 575) CBC W/PLT COUNT & AUTO [id number] 15:17:00 Test Item Value Reference Range Interpretation [...] H (BEAKER) (test code = 413) RETICULOCYTE [id number] 08:44:00 Test Item Value Reference Range Interpretation Comments RETICULOCYTE COUNT PCT (BEAKER) (test 23.8 % 0.5-1.7 H code = 575) BLOOD [id number] 14:01:00 Test Item Value Reference Range Interpretation Comments CULTURE (BEAKER) (test No growth in 5 days code = 1095) BLOOD [id number] 12:01:00 Test Item Value Reference Range Interpretation Comments CULTURE (BEAKER) (test No growth in 5 days code = 1095) CBC W/PLT COUNT & AUTO [id number] 11:38:00 Test Item Value Reference Range Interpretation [...] 3438) Received comment: User comments: Slide comments:RETICULOCYTE [id number] 07:44:00 Test Item Value Reference Range Interpretation Comments RETICULOCYTE COUNT PCT (BEAKER) (test 27.0 % 0.5-1.7 H code = 575) RETICULOCYTE [id number] 07:19:00 Test Item Value Reference Range Interpretation Comments RETICULOCYTE COUNT PCT (BEAKER) (test 22.7 % 0.5-1.7 H code = 575) CBC W/PLT COUNT & AUTO [id number] 12:07:00 Test Item Value Reference Range Interpretation [...] 3438) Received comment: User comments: Slide comments:RETICULOCYTE [id number] 06:14:00 Test Item Value Reference Range Interpretation Comments RETICULOCYTE COUNT PCT (BEAKER) (test 21.9 % 0.5-1.7 H code = 575) [id number] 06:02:00 Test Item Value Reference Range Interpretation Comments PHOSPHORUS (BEAKER) (test code = 3.8 mg/dL 2.3-4.7 604) [id number] 06:02:00 Test Item Value Reference Range Interpretation Comments MAGNESIUM (BEAKER) (test code = 1.8 mg/dL 1.6-2.6 627) BASIC METABOLIC [id number] 06:02:00 Test Item Value Reference Range Interpretation [...] Specimen moderately ictericCBC W/PLT COUNT & AUTO [id number] 09:09:00 Test Item Value Reference Range Interpretation [...] = 3438) Received comment: User comments: Slide comments:[id number] 04:11:00 Test Item Value Reference Range Interpretation Comments PHOSPHORUS (BEAKER) (test code = 3.3 mg/dL 2.3-4.7 604) [id number] 04:11:00 Test Item Value Reference Range Interpretation Comments MAGNESIUM (BEAKER) (test code = 1.6 mg/dL 1.6-2.6 627) BASIC METABOLIC [id number] 04:11:00 Test Item Value Reference Range Interpretation [...] FOR DIALYSIS PATIEN TS. Specimen slightly ictericRETICULOCYTE [id number] 03:54:00 Test Item Value Reference Range Interpretation Comments RETICULOCYTE COUNT PCT (BEAKER) (test 20.4 % 0.5-1.7 H code = 575) CBC W/PLT COUNT & AUTO [id number] 18:30:00 Test Item Value Reference Range Interpretation [...] = 413) CBC W/PLT COUNT & AUTO [id number] 10:51:00 Test Item Value Reference Range Interpretation [...] 3438) Received comment: User comments: Slide comments:RETICULOCYTE [id number] 10:08:00 Test Item Value Reference Range Interpretation Comments RETICULOCYTE COUNT PCT (BEAKER) (test 14.4 % 0.5-1.7 H code = 575) CBC W/PLT COUNT & AUTO [id number] 09:30:00 Test Item Value Reference Range Interpretation [...] = 3438) Received comment: User comments: Slide comments:[id number] 03:32:00 Test Item Value Reference Range Interpretation Comments PHOSPHORUS (BEAKER) (test code = 3.5 mg/dL 2.3-4.7 604) [id number] 03:32:00 Test Item Value Reference Range Interpretation Comments MAGNESIUM (BEAKER) (test code = 1.8 mg/dL 1.6-2.6 627) BASIC METABOLIC [id number] 03:32:00 Test Item Value Reference Range Interpretation [...] ictericCT, CHEST WITH IV CONTRAST- PE TEST [id number] 14:01:00FINAL REPORT CT scan of the chest. [...] significantly smaller than on previous. Signed: Sachin Elaineeport Verified Date/Time: 08/02/2018 14:01:29 Reading Location: [address] Reading Room URINALYSIS W/ REFLEX URINE CULTURE [...] 516) SOURCE(BEAKER) (test code = 2795) SCREEN, [id number] 11:15:00 Test Item Value Reference Range Interpretation Comments TEST URINE (BEAKER) (test Negative code = 583) RETICULOCYTE [id number] 04:43:00 Test Item Value Reference Range Interpretation Comments RETICULOCYTE COUNT PCT (BEAKER) (test 13.2 % 0.5-1.7 H code = 575) RAD, CHEST, 2 [id number] 03:54:00Reason for exam:->SICKLE CELL PAIN CRISISIs the [...] MDReport Verified Date/Time: 08/02/2018 03:54:52 Reading Location: [address] Reading Room CBC W/PLT COUNT & AUTO [id number] 03:04:00 Test Item Value Reference Range Interpretation [...] (BEAKER) (test code = 417) COMPREHENSIVE METABOLIC [id number] 02:42:00 Test Item Value Reference Range Interpretation [...]
[2022-08-01] MEDS ORDERED: METOCLOPRAMIDE 10 MG/2mL INJ ONE (09:45)
[2022-08-01] MEDS ORDERED: DIPHENHYDRAMINE 50 MG/ML VIAL ONE (09:45)
[2022-08-01] MEDS ORDERED: NA CHLORIDE 0.9% 1,000 ML ONE ×3 (09:46→14:14)
[2022-08-01] MEDS ORDERED: HYDROMORPHONE HCL 1 MG/ML INJ ONE ×2 (09:46→11:58)
[2022-08-01] MEDS ORDERED: KETOROLAC 30 MG/ML INJ ONE (09:46)
--- NOTE | 2022-08-01 10:02 | RAD REPORT ---
EXAM DESCRIPTION: Lucretia Rogers (2 Views)08/01/2022 9:53 am CLINICAL HISTORY: Cough COMPARISON: 2021 FINDINGS: The lungs appear clear of acute infiltrate. The heart is normal size. Central venous catheter in place IMPRESSION: No acute abnormalities displayed
[2022-08-01 10:28] LABS: Absolute Lymphocytes (CBC) 4.3 K/uL (0.7-4.9); Hematocrit 22.7 % (36.0-45.0); Lymphocytes % 21.4 % (15.3-44.8); MCV 99.3 fL (80-100); MPV 7.7 fL (7.6-11.3); RBC Red Blood Cell Count 2.28 M/uL (3.86-4.86)
[2022-08-01 10:59] LABS: Albumin 4.1 g/dL (3.4-5.0); Bilirubin Total 4.3 mg/dL (0.2-1.0); Potassium 3.7 mEq/L (3.5-5.1); Protein, Total 7.4 g/dL (6.4-8.2)
[2022-08-01 11:44] LABS: Anisocytosis 2+; Blood Morphology Comment NOTED (NOT SEEN); Ovalocytes 1+; Platelet Estimate INCR; Polychromasia 2+; Target Cells 1+
[2022-08-01] MEDS ORDERED: NA CHLORIDE 0.9% 50 ML ONE (11:59)
--- NOTE | 2022-08-01 12:24 | EDPHYS ---
Physician Documentation [facility] Name: Gume Ortega Age: 31 yrs Sex: Female : 1990 Arrival Date: 08/01/2022 Time: 09:18 Bed 2 Private MD: ED Physician Phillip Manuel HPI: 08/01 10:30 This 31 yrs old Black Female presents to ER via Ambulatory with complaints of Sickle kb Cell crisis. 10:30 The patient or guardian reports cough, that is intermittent, described as mild. Onset: kb The symptoms/episode began/occurred 3 day(s) ago. Severity of symptoms: At their worst the symptoms were moderate, in the emergency department the symptoms are unchanged. Modifying factors: The symptoms are alleviated by nothing, the symptoms are aggravated by nothing. Associated signs and symptoms: The patient has no apparent associated signs or symptoms. The patient has not experienced similar symptoms in the past. The patient has not recently seen a physician. Pt reports pain all over that started 3 days ago that is similar to previous sickle cell crisis. Also reports cough with green sputum.. 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 - Social history:: Smoking status: Patient denies any tobacco usage or history of. Patient uses street drugs, marijuana. ROS: 10:28 Constitutional: Negative for fever, chills, and weight loss. kb 10:28 Constitutional: Negative for fever, chills, and weight loss. 10:28 Constitutional: Positive for body aches. 10:28 Respiratory: Positive for cough, Negative for dyspnea on exertion, hemoptysis, orthopnea, pleurisy, shortness of breath, sputum production, wheezing. 10:28 All other systems are negative. Exam: 10:29 Constitutional: This is a well developed, well nourished patient who is awake, alert, kb and in no acute distress. Head/Face: Normocephalic, atraumatic. ENT: Moist Mucous membranes Cardiovascular: Regular rate and rhythm with a normal S1 and S2. No gallops, murmurs, or rubs. No pulse deficits. Respiratory: Respirations even and unlabored. No increased work of breathing. Talking in full sentences Abdomen/GI: Soft, non-tender. No distention Skin: Warm, dry with normal turgor. Normal color. MS/ Extremity: Pulses equal, no cyanosis. Neurovascular intact. Full, normal range of motion. Neuro: Awake and alert, GCS 15, oriented to person, place, time, and situation. Moves all extremities. Normal gait. Vital Signs: 09:38 BP 114 / 66; Pulse 107; Resp 16; Temp 98.3(TE); Pulse Ox 96% on R/A; Weight 72.57 kg; ss Height 5 ft. 2 in. ; Pain 10/10; 10:16 BP 127 / 81; Pulse 74; Resp 15 S; Pulse Ox 97% on R/A; Pain 10/10; kc6 10:53 BP 104 / 57; Pulse 69; Resp 16; Pulse Ox 100% on R/A; Pain 10/10; sg5 11:13 BP 102 / 53; Pulse 61; Resp 12 S; Pulse Ox 97% on R/A; Pain 10/10; kc6 14:23 BP 93 / 53; Pulse 69; Resp 18 S; Pulse Ox 92% on R/A; kc6 09:38 Body Mass Index 29.26 (72.57 kg, 157.48 cm) ss 09:38 Pain Scale: Adult ss 10:16 Pain Scale: Adult kc6 10:53 Pain Scale: Adult sg5 11:13 Pain Scale: Adult kc6 MDM: 09:29 Patient medically screened. kb 10:29 Data reviewed: vital signs, nurses notes. kb 10:29 Differential diagnosis: viral Infection, bacterial infection, URI, bronchitis, kb pneumonia sickle cell. 12:21 Consideration of Admission/Observation Patient was admitted/placed on observation. kb Management of patient was discussed with the following: Hospitalist: Liz DIGESTER OPERATOR HELPER accepts pt for admission under Dr Castrejon. Counseling: I had a detailed discussion with the patient and/or guardian regarding: the historical points, exam findings, and any diagnostic results supporting the discharge/admit diagnosis, lab results, radiology results, the need for further work-up and treatment in the hospital. 08/01 09:35 Order name: CBC with Diff; Complete Time: 11:48 kb 08/01 09:35 Order name: CMP; Complete Time: 11:10 kb 08/01 09:35 Order name: Retic Count; Complete Time: 11:48 kb 08/01 09:35 Order name: LDH; Complete Time: 11:10 kb 08/01 11:44 Order name: Manual Differential; Complete Time: 11:48 EDMS 08/01 14:20 Order name: Phosphorus; Complete Time: 14:23 EDMS 08/01 14:20 Order name: Creatine Phosphokinase; Complete Time: 14:23 EDMS 08/01 14:20 Order name: NT PRO-BNP; Complete Time: 14:23 EDMS 08/01 14:20 Order name: T4 Free; Complete Time: 14:23 EDMS 08/01 14:20 Order name: Magnesium; Complete Time: 14:23 EDMS 08/01 14:20 Order name: Thyroid Stimulating Hormone; Complete Time: 14:23 EDMS 08/01 09:36 Order name: Chest Pa And Lat (2 Views) XRAY; Complete Time: 10:07 kb 08/01 12:46 Order name: Thorax Wo Con; Complete Time: 14:03 EDMS 08/01 09:35 Order name: IV Start; Complete Time: 10:15 kb Administered Medications: 10:15 Drug: HYDROmorphone IVP 1 mg Route: IVP; Site: Port-a-cath; kc6 11:50 Follow up: Response: No adverse reaction; Pain is unchanged, physician notified; RASS: kc6 Alert and Calm (0) 10:15 Drug: Ketorolac IVP 15 mg Route: IVP; Site: Port-a-cath; kc6 11:50 Follow up: Response: No adverse reaction; Pain is unchanged, physician notified; RASS: kc6 Alert and Calm (0) 10:16 Drug: NS 0.9% IV 1000 ml Route: IV; Rate: 100 ml/hr; Site: Port-a-cath; kc6 11:49 Follow up: Response: No adverse reaction; IV Status: Completed infusion; IV Intake: kc6 1000ml 10:16 Drug: metoCLOPramide IVP 10 mg Route: IVP; Site: Port-a-cath; kc6 11:50 Follow up: Response: No adverse reaction kc6 10:16 Drug: diphenhydrAMINE IVP 12.5 mg Route: IVP; Site: Port-a-cath; kc6 11:50 Follow up: Response: No adverse reaction kc6 11:55 Drug: NS 0.9% IV 1000 ml Route: IV; Rate: 1000 ml; Site: Port-a-cath; kc6 13:50 Follow up: IV Intake: 1000ml sg5 14:22 Follow up: IV Status: Completed infusion kc6 11:55 Drug: HYDROmorphone IVP 1 mg Route: IVP; Site: Port-a-cath; kc6 12:50 Follow up: Urine output 50 ml; Response: No adverse reaction sg5 16:52 CANCELLED (for meditech[facility]): NS 0.9% IV 50 ml IV at calculated rate once; used to mix kc6 dilaudid into for infusion Disposition: 18:10 Co-signature as Attending Physician, Phillip Manuel MD I reviewed the patient's care rt provided by the Advanced Practice Provider and agree with the diagnosis and treatment plan. Disposition Summary: 08/01/22 12:23 Hospitalization Ordered Hospitalization Status: Observation kb Provider: Apolinar Castrejon [facility] kb Condition: Stable kb Problem: an acute exacerbation kb Symptoms: are unchanged kb Bed/Room Type: Standard Room Assignment: 203(08/01/22 16:21) eb Diagnosis - Other sickle-cell disorders - intractable pain kb Forms: - Medication Reconciliation Form kb - SBAR form kb Signatures: Dispatcher [employer] Melissa Pickard, [facility] HEARTP-Radha Fink RN RN Virginia Lizarraga Kaitlyn, RN RN kc6 Phillip Manuel MD MD rt Brandi Rodriguez RN sg5 Corrections: (The following items were deleted from the chart) 16:21 12:23 kb eb 16:52 16:30 NS 0.9% IV 50 ml IV at calculated rate once; used to mix dilaudid into for kc6 infusion ordered. kb
--- NOTE | 2022-08-01 12:24 | ER ---
Nurse's Notes [facility] Name: Gume Ortega Age: 31 yrs Sex: Female : 1990 Arrival Date: 08/01/2022 Time: 09:18 Bed 2 Private MD: Diagnosis: Other sickle-cell disorders-intractable pain Presentation: 08/01 09:38 Chief complaint: Patient states: pain all over x 3 days. Also c/o cough. Coronavirus ss screen: Client denies travel out of the [place] in the last 14 days. Ebola Screen: Patient denies exposure to infectious person. Patient denies travel to an Ebola-affected area in the 21 days before illness onset. Initial Sepsis Screen: Does the patient meet any 2 criteria? No. Patient's initial sepsis screen is negative. Does the patient have a suspected source of infection? No. Patient's initial sepsis screen is negative. Risk Assessment: Do you want to hurt yourself or someone else? Patient reports no desire to harm self or others. Onset of symptoms was July 29, 2022. 09:38 Method Of Arrival: Ambulatory 09:38 Acuity: MARILUZ 3 ss DIGESTER: 17:59 LMP N/A - Irregular menses sg5 Historical: - Allergies: 09:41 Fentanyl; ss 09:41 Morphine; ss 09:41 Sulfa (Sulfonamide Antibiotics); ss 09:41 Zofran; ss - PMHx: 09:41 Anxiety; blood clot in lung; Sickle Cell; ss - PSHx: 09:41 Port placed to Left Chest; ss - Immunization history:: Last tetanus immunization: up to date. - Social history:: Smoking status: Patient denies any tobacco usage or history of. Patient uses street drugs, marijuana. Screenin:42 [facility] ED Fall Risk Assessment (Adult) History of falling in the last 3 months, sg5 including since admission No falls in past 3 months (0 pts). Abuse screen: Denies threats or abuse. Nutritional screening: No deficits noted. Tuberculosis screening: No symptoms or risk factors identified. Assessment: 09:42 General: Appears comfortable, Behavior is calm, cooperative, appropriate for age. Pain: sg5 Complains of pain in Generalized Body Pain Pain currently is 7 out of 10 on a pain scale. at worst was 10 out of 10 on a pain scale. Neuro: No deficits noted. Level of Consciousness is awake, alert, obeys commands, Oriented to person, place, time, situation, Appropriate for age. Cardiovascular: Capillary refill < 3 seconds. Cardiovascular: No deficits noted. Respiratory: No deficits noted. Breath sounds are clear bilaterally. GI: No deficits noted. No signs and/or symptoms were reported involving the gastrointestinal system. : No deficits noted. No signs and/or symptoms were reported regarding the genitourinary system. EENT: No deficits noted. No signs and/or symptoms were reported regarding the EENT system. Derm: No deficits noted. No signs and/or symptoms reported regarding the dermatologic system. Musculoskeletal: No deficits noted. No signs and/or symptoms reported regarding the musculoskeletal system. 10:42 Reassessment: Patient appears in no apparent distress at this time. No changes from [facility] previously documented assessment. Patient and/or family updated on plan of care and expected duration. Pain level reassessed. Patient is alert, oriented x 3, equal unlabored respirations, skin warm/dry/pink. 11:42 Reassessment: Patient appears in no apparent distress at this time. No changes from [facility] previously documented assessment. Patient and/or family updated on plan of care and expected duration. Pain level reassessed. Patient is alert, oriented x 3, equal unlabored respirations, skin warm/dry/pink. 12:42 Reassessment: Patient appears in no apparent distress at this time. No changes from [facility] previously documented assessment. Patient and/or family updated on plan of care and expected duration. Pain level reassessed. Patient is alert, oriented x 3, equal unlabored respirations, skin warm/dry/pink. 13:42 Reassessment: Patient appears in no apparent distress at this time. No changes from [facility] previously documented assessment. Patient and/or family updated on plan of care and expected duration. Pain level reassessed. Patient is alert, oriented x 3, equal unlabored respirations, skin warm/dry/pink. 14:00 Reassessment: please see [facility] for further charting. [facility] Vital Signs: 09:38 BP 114 / 66; Pulse 107; Resp 16; Temp 98.3(TE); Pulse Ox 96% on R/A; Weight 72.57 kg; ss Height 5 ft. 2 in. ; Pain 10/10; 10:16 BP 127 / 81; Pulse 74; Resp 15 S; Pulse Ox 97% on R/A; Pain 10/10; kc6 10:53 BP 104 / 57; Pulse 69; Resp 16; Pulse Ox 100% on R/A; Pain 10/10; sg5 11:13 BP 102 / 53; Pulse 61; Resp 12 S; Pulse Ox 97% on R/A; Pain 10/10; kc6 14:23 BP 93 / 53; Pulse 69; Resp 18 S; Pulse Ox 92% on R/A; kc6 09:38 Body Mass Index 29.26 (72.57 kg, 157.48 cm) ss 09:38 Pain Scale: Adult ss 10:16 Pain Scale: Adult kc6 10:53 Pain Scale: Adult sg5 11:13 Pain Scale: Adult kc6 ED Course: 09:18 Patient arrived in ED. mr 09:28 GeorgeMelissa, [facility] kb 09:28 Phillip Manuel MD is Attending Physician. kb 09:38 Mathew Navarrete, SHYAM is Primary Nurse. bp 09:41 Triage completed. ss 09:41 Arm band placed on right wrist. ss 09:42 Patient has correct armband on for positive identification. Placed in gown. Bed in low sg5 position. Call light in reach. Side rails up X 1. Valuables Left with patient. 09:55 Chest Pa And Lat (2 Views) XRAY In Process Unspecified. EDMS 10:15 Accessed Port-a-Cath. Blood collected. using accessed w/ # 20 Peters needle, ,sterile kc6 technique, per hospital protocol. Clean \T\ dry. Dressing intact. Good blood return. Flushes easily. 12:22 Apolinar Castrejon MD is Hospitalizing Provider. kb 17:58 No provider procedures requiring assistance completed. Patient admitted, IV remains in sg5 place. Administered Medications: 10:15 Drug: HYDROmorphone IVP 1 mg Route: IVP; Site: Port-a-cath; kc6 11:50 Follow up: Response: No adverse reaction; Pain is unchanged, physician notified; RASS: kc6 Alert and Calm (0) 10:15 Drug: Ketorolac IVP 15 mg Route: IVP; Site: Port-a-cath; kc6 11:50 Follow up: Response: No adverse reaction; Pain is unchanged, physician notified; RASS: kc6 Alert and Calm (0) 10:16 Drug: NS 0.9% IV 1000 ml Route: IV; Rate: 100 ml/hr; Site: Port-a-cath; kc6 11:49 Follow up: Response: No adverse reaction; IV Status: Completed infusion; IV Intake: kc6 1000ml 10:16 Drug: metoCLOPramide IVP 10 mg Route: IVP; Site: Port-a-cath; kc6 11:50 Follow up: Response: No adverse reaction kc6 10:16 Drug: diphenhydrAMINE IVP 12.5 mg Route: IVP; Site: Port-a-cath; kc6 11:50 Follow up: Response: No adverse reaction kc6 11:55 Drug: NS 0.9% IV 1000 ml Route: IV; Rate: 1000 ml; Site: Port-a-cath; kc6 13:50 Follow up: IV Intake: 1000ml sg5 14:22 Follow up: IV Status: Completed infusion kc6 11:55 Drug: HYDROmorphone IVP 1 mg Route: IVP; Site: Port-a-cath; kc6 12:50 Follow up: Urine output 50 ml; Response: No adverse reaction sg5 16:52 CANCELLED (for [facility]): NS 0.9% IV 50 ml IV at calculated rate once; used to mix kc6 dilaudid into for infusion Medication: 09:42 VIS not applicable for this client. sg5 Intake: 11:49 IV: 1000ml; Total: 1000ml. kc6 13:50 IV: 1000ml; Total: 2000ml. sg5 Output: 12:50 Urine: 50ml; Total: 50ml. sg5 Outcome: 12:23 Decision to Hospitalize by Provider. kb 17:58 Admitted to Med/surg room 203, Report called to bala sg5 17:58 Condition: good 17:58 Instructed on the need for admit. 18:11 Patient left the ED. kc6 Signatures: Dispatcher [employer] EDMS Melissa Vazquez, HERPETOLOGIST-C HERPETOLOGIST-Harry Laura BerriosRadha, RN RN Mathew Lacy RN RN bp Campbell, Kaitlyn, RN RN [facility] Brandi Rodriguez RN RN sg5
[2022-08-01] MEDS ORDERED: HYDROCODONE/APAP 10/325 TAB PO PRN (12:45)
[2022-08-01] MEDS ORDERED: ACETAMINOPHEN 325 MG TABLET PO PRN (12:45)
[2022-08-01] MEDS: NA CHLORIDE 0.9% 1,000 ML IV SCH (13:00)
[2022-08-01] MEDS ORDERED: GUAIFENESIN/CODEINE 5ML UCUP PO PRN (13:14)
[2022-08-01] MEDS ORDERED: ONDANSETRON 4 MG/2 ML VIAL IV PRN (13:16)
[2022-08-01] MEDS ORDERED: ALPRAZOLAM 1 MG TABLET PO PRN (13:17)
--- NOTE | 2022-08-01 13:20 | P.HP ---
Certification for Inpatient Patient admitted to: Inpatient With expected LOS: >2 Midnights Patient will require the following post-hospital care: None Practitioner: I am a practitioner with admitting privileges, knowledge of patient current condition, hospital course, and medical plan of care. Services: Services provided to patient in accordance with Admission requirements found in Title 42 Section 412.3 of the Code of Federal Regulations Patient History Date of Service: 08/01/22 Reason for admission: Sickle cell crisis. History of Present Illness: Patient is a 31-year-old female with a past medical history significant for anxiety disorder, PE, sickle cell disease who presents with complaint of generalized body pain that has been ongoing for the past 3 days. Patient reported that she ran out of narcotics a week ago. Patient rated pain as 10/10 in severity and described pain as aching in quality. Patient also reports persistent cough with green sputum that has been ongoing for the past 1 and half weeks. Patient denies any other signs and symptoms. Symptoms are aggravated or relieved by nothing. Patient decided to present to the hospital due to worsening symptoms. Allergies ondansetron HCl [From Zofran] Allergy (Mild, Verified 03/28/22 00:34) Nausea/Vomiting fentanyl [From Sublimaze (PF)] Allergy (Verified 03/28/22 00:34) Anaphylaxis morphine Allergy (Verified 03/28/22 00:34) Nausea/Vomiting Sulfa (Sulfonamide Antibiotics) Allergy (Verified 03/28/22 00:34) Nausea/Vomiting Home Medications: Folic Acid [Folic Acid*] 1 mg PO DAILY 08/01/12 Cholecalciferol (Vitamin D3) [Vitamin D 1000 Iu Tab*] 50,000 unit PO EVERY 7TH DAY 09/30/20 Apixaban [Eliquis *] 2.5 mg PO BID #60 tablet 12/21/20 ALPRAZolam [Xanax*] 1 mg PO BIDP PRN 03/28/22 Hydromorphone HCl [Dilaudid] 8 mg PO QID PRN #60 tab 04/09/22 Pregabalin [Lyrica*] 75 mg PO Q8H #90 cap 04/09/22 Promethazine Tab [Phenergan*] 25 mg PO Q6HP PRN #30 tab 04/09/22 methocarbamoL [Robaxin*] 1,000 mg PO Q8H #60 tab 04/09/22 - Past Medical/Surgical History Diabetic: No -: Sickle Cell Anemia -: Pulmonary Embolism -: blood clot left lung -: port-a-cath placement Psychosocial/ Personal History: Patient lives at home with her girlfriend - Family History Mother -: Other (see notes) Notes: sickle cell trait Father -: Other (see notes) Notes: sickle cell trait - Social History Smoking Status: Never smoker Alcohol use: No CD- Drugs: Yes Caffeine use: No Place of Residence: Home Review of Systems General: Unremarkable Eyes: Unremarkable ENT: Unremarkable Respiratory: Unremarkable Cardiovascular: Unremarkable Gastrointestinal: Unremarkable Genitourinary: Unremarkable Musculoskeletal: Other (Generalized body pains) Integumentary: Unremarkable Neurological: Unremarkable Lymphatics: Unremarkable Physical Examination - Physical Exam General: Alert, In no apparent distress, Oriented x3, Cooperative HEENT: Atraumatic, PERRLA, Mucous membr. moist/pink, EOMI, Sclerae nonicteric Neck: Supple, 2+ carotid pulse no bruit, No LAD, Without JVD or thyroid abnormality Respiratory: Clear to auscultation bilaterally, Normal air movement Cardiovascular: No edema, Regular rate/rhythm, Normal S1 S2 Capillary refill: <2 Seconds Gastrointestinal: Normal bowel sounds, Non-distended, No tenderness Musculoskeletal: No tenderness Integumentary: No rashes, No breakdown Neurological: Normal speech, Normal tone, Normal affect Lymphatics: No axilla or inguinal lymphadenopathy - Studies Laboratory Data (last 24 hrs) 08/01/22 10:14: Sodium 138, Potassium 3.7, BUN 7, Creatinine 0.53 L, Glucose 97, Total Bilirubin 4.3 H, AST 34, ALT 42, Alkaline Phosphatase 106 08/01/22 10:14: WBC 20.10 H, Hgb 8.1 L, Hct 22.7 L, Plt Count 496 H Assessment and Plan - Plan --Sickle cell crisis. Patient placed on Narcotics. Continue IV hydration. Continue home medications. --Anxiety disorder. Continue Xanax. --History of PE. Continue Eliquis. --Peripheral neuropathy. Continue home medication. --Cough. CT chest indicates " No focal consolidation. Complete improvement of small left pleural effusion and left basilar airspace opacities. Partial improvement on the right with few residual reticular patchy airspace opacities, suggesting mild residual or recurrent airway inflammatory changes". Patient placed on antitussives. --Leukocytosis. Likely reactive. Blood cultures pending. We will continue to monitor WBC. --Sickle cell anemia. H&H stable--8.1/22.7. We will continue to monitor hemoglobin and transfuse if less than 7.0. --DVT prophylaxis with Eliquis. Discharge Plan: Home Plan to discharge in: Greater than 2 days - Advance Directives Does patient have a Living Will: No Does patient have a Durable POA for Healthcare: No - Code Status/Comfort Care Code Status Assessed: Yes Physician Review: Patient Assessed, Agree with Above Assessment and Plan Critical Care: No
[2022-08-01] MEDS: PREGABALIN 75 MG CAP PO SCH ×2 (14:00→21:54)
[2022-08-01] MEDS: methocarbamoL 500 MG TAB PO SCH ×2 (14:00→21:54)
--- NOTE | 2022-08-01 14:03 | RAD REPORT ---
EXAM DESCRIPTION: CT - Thorax Wo Con - 08/01/2022 1:02 pm CLINICAL HISTORY: Persistent cough COMPARISON: Thorax Wo Con dated 12/25/2021; CTANGIO CHEST FOR PE dated 08/07/2012 TECHNIQUE: Axial thin cut images of the chest were obtained without IV contrast. Multiplanar reforma ts were generated and reviewed. All CT scans are performed using dose optimization technique as appropriate and may include automated exposure control or mA/KV adjustment according to patient size. FINDINGS: Left chest wall port in place, with catheter tip terminating at the superior cavoatrial ju nction. No mass or consolidation in the lung parenchyma. Peripheral reticular patchy opacities in the right lower lobe and scattered linear atelectatic changes, partially improved since the prior exam. Bibasilar subsegmental opacities and/ or atelectasis on the prior CT have since improved. Small focus of scarring in the right upper lobe, axial image 17/61 is stable. No pleural thickening or pleural e ffusion. Trace left pleural effusion has also resolved. No pneumothorax. Mild cardiomegaly. No abnormal mediastinal or hilar masses or lymphadenopathy seen. No significant aortic or pulmonary a rtery findings. Assessment is limited in the absence of IV contrast. No chest wall mass or abnormal axillary lymphadenopathy. Evaluation of the solid abdominal structures reveals no suspicious findings. IMPRESSION: No focal consolidation. Complete improvement of small left pleural effusion and left bas ilar airspace opacities. Partial improvement on the right with few residual reticular patchy airspace opacities, suggesting mild residual or recurrent airway inflammatory changes. Mild cardiomegaly, stable.
[2022-08-01] MEDS ORDERED: methocarbamoL 500 MG TAB ONE (14:14)
[2022-08-01] MEDS ORDERED: PREGABALIN 75 MG CAP PO ONE (14:14)
[2022-08-01 14:20] LABS: Phosphorus 3.4 mg/dL (2.5-4.9); Thyroid Stimulating Hormone 1.68 uIU/mL (0.358-3.740)
[2022-08-01 14:21] VITALS: BMI 28.9
[2022-08-01] MEDS: HYDROMORPHONE HCL 1 MG/ML INJ IV PRN ×2 (18:57→21:54)
[2022-08-01] MEDS ORDERED: DIPHENHYDRAMINE 50 MG/ML VIAL IV PRN (19:28)
[2022-08-01] MEDS ORDERED: PROMETHAZINE INJ 25 MG/ML AMP IV PRN (19:29)
[2022-08-01 21:22] LABS: Absolute Lymphocytes (CBC) 6.8 K/uL (0.7-4.9); Hematocrit 22.6 % (36.0-45.0); MCV 98.1 fL (80-100); MPV 8.2 fL (7.6-11.3)
[2022-08-01 21:25] LABS: Anisocytosis 2+; Blood Morphology Comment NOTED (NOT SEEN); Platelet Estimate INCR; White Blood Cell Scan OK (OK)
[2022-08-01] MEDS: APIXABAN 2.5 MG TABLET PO SCH (21:54)
[2022-08-01] MEDS: DIPHENHYDRAMINE 50 MG/ML VIAL IV PRN (21:54)
[2022-08-02] MEDS: HYDROMORPHONE HCL 1 MG/ML INJ IV PRN ×8 (01:02→22:48)
[2022-08-02] MEDS: NA CHLORIDE 0.9% 1,000 ML IV SCH ×2 (01:02→10:44)
[2022-08-02] MEDS: DIPHENHYDRAMINE 50 MG/ML VIAL IV PRN ×4 (04:18→22:48)
[2022-08-02] MEDS ORDERED: GUAIFENESIN/CODEINE 5ML UCUP PO PRN (04:38)
[2022-08-02] MEDS: methocarbamoL 500 MG TAB PO SCH ×3 (04:58→19:47)
[2022-08-02] MEDS: PREGABALIN 75 MG CAP PO SCH ×3 (04:58→19:47)
[2022-08-02 05:23] LABS: Absolute Lymphocytes (CBC) 4.7 K/uL (0.7-4.9); Hematocrit 20.3 % (36.0-45.0); Lymphocytes % 15.9 % (15.3-44.8); MCV 99.6 fL (80-100); MPV 8.7 fL (7.6-11.3); RBC Red Blood Cell Count 2.04 M/uL (3.86-4.86)
[2022-08-02 05:39] LABS: Potassium 4.2 mEq/L (3.5-5.1)
[2022-08-02] MEDS: FOLIC ACID 1 MG TABLET PO SCH (07:36)
[2022-08-02] MEDS: ASPIRIN 81 MG CHEWABLE TABLET PO SCH (07:36)
[2022-08-02] MEDS: APIXABAN 2.5 MG TABLET PO SCH ×2 (07:37→19:47)
[2022-08-02] MEDS ORDERED: ENOXAPARIN 40 MG/0.4 ML SQ SCH (09:00)
[2022-08-02] MEDS ORDERED: DRISDOL (VITAMIN D=ERGOCALCIFEROL) 50000 UNIT CAP PO SCH (12:00)
[2022-08-02] MEDS ORDERED: VITAMIN D 1000 UNIT TAB PO SCH (12:00)
[2022-08-03] MEDS: HYDROMORPHONE HCL 1 MG/ML INJ IV PRN ×7 (02:46→21:58)
[2022-08-03] MEDS: PREGABALIN 75 MG CAP PO SCH ×3 (05:46→21:57)
[2022-08-03] MEDS: NA CHLORIDE 0.9% 1,000 ML IV SCH (05:46)
[2022-08-03] MEDS: DIPHENHYDRAMINE 50 MG/ML VIAL IV PRN ×3 (05:46→18:51)
[2022-08-03] MEDS: methocarbamoL 500 MG TAB PO SCH ×3 (05:46→21:57)
[2022-08-03] MEDS ORDERED: NA CHLORIDE 0.9% 250 ML ONE (07:24)
[2022-08-03] MEDS: APIXABAN 2.5 MG TABLET PO SCH ×2 (08:49→21:57)
[2022-08-03] MEDS: ASPIRIN 81 MG CHEWABLE TABLET PO SCH (08:50)
[2022-08-03] MEDS: FOLIC ACID 1 MG TABLET PO SCH (08:50)
[2022-08-03 13:16] LABS: Absolute Lymphocytes (CBC) 5.4 K/uL (0.7-4.9); Hematocrit 23.5 % (36.0-45.0); Lymphocytes % 27.2 % (15.3-44.8); MCV 97.5 fL (80-100); MPV 7.8 fL (7.6-11.3); RBC Red Blood Cell Count 2.42 M/uL (3.86-4.86)
[2022-08-03 13:26] LABS: Potassium 3.8 mEq/L (3.5-5.1)
--- NOTE | 2022-08-03 16:36 | P.PN ---
Subjective Date of Service: 08/02/22 Subjective: No new changes, No C/O voiced, Improving Review of Systems 10-point ROS is otherwise unremarkable Physical Examination - Vital Signs Temperature: 98.0 F Blood Pressure: 104/53 Pulse: 74 Respirations: 16 Pulse Ox (%): 92 - Physical Exam General: Alert, In no apparent distress, Oriented x3 Respiratory: Clear to auscultation bilaterally, Normal air movement Cardiovascular: Regular rate/rhythm, Normal S1 S2, No murmurs Gastrointestinal: Normal bowel sounds, Soft and benign, Non-distended, No tenderness Musculoskeletal: No clubbing, No swelling, No tenderness Neurological: Normal speech, Normal tone, Normal affect Lymphatics: No axilla or inguinal lymphadenopathy - Studies Medications List Reviewed: Yes Assessment & Plan - Problems (Diagnosis) (1) Anemia, sickle cell with crisis Current Visit: No Status: Acute - Plan Plan: 1. IV fluids 2. Folic acid 3. Pain control 4. O2 per protocol 5. Monitor H&H 6. Outpatient hematology follow-up Discharge Plan: Home Plan to discharge in: Greater than 2 days - Advance Directives Does patient have a Living Will: No Does patient have a Durable POA for Healthcare: No - Code Status/Comfort Care Code Status Assessed: Yes Code Status: Full Code Physician Review: Patient Assessed, Agree with Above Assessment and Plan Critical Care: No Time Spent Managing PTS Care (In Minutes): 35
--- NOTE | 2022-08-03 16:38 | P.PN ---
Date of Service: 08/03/22 Subjective Patient doing well with no new complaints. Review of Systems 10-point ROS is otherwise unremarkable Physical Examination - Vital Signs Reviewed - Physical Exam General: Alert, In no apparent distress, Oriented x3 Respiratory: Clear to auscultation bilaterally, Normal air movement Cardiovascular: Regular rate/rhythm, Normal S1 S2, No murmurs Gastrointestinal: Normal bowel sounds, Soft and benign, Non-distended, No tenderness Musculoskeletal: No clubbing, No swelling, No tenderness Neurological: Normal speech, Normal tone, Normal affect Assessment & Plan - Problems (Diagnosis) (1) Anemia, sickle cell with crisis Current Visit: No Status: Acute - Plan Continue with plan of care as mentioned below: 1. IV fluids 2. Folic acid 3. Pain control 4. O2 per protocol 5. Hemoglobin decreased. Transfuse 1 unit of packed red blood cells. 6. Outpatient hematology follow-up Discharge Plan: Home Plan to discharge in: Greater than 2 days - Advance Directives Does patient have a Living Will: No Does patient have a Durable POA for Healthcare: No - Code Status/Comfort Care Code Status Assessed: Yes Code Status: Full Code Physician Review: Patient Assessed, Agree with Above Assessment and Plan Critical Care: No Time Spent Managing PTS Care (In Minutes): 35
[2022-08-04] MEDS: HYDROMORPHONE HCL 1 MG/ML INJ IV PRN ×5 (00:57→13:07)
[2022-08-04] MEDS: NA CHLORIDE 0.9% 1,000 ML IV SCH (01:55)
[2022-08-04] MEDS: DIPHENHYDRAMINE 50 MG/ML VIAL IV PRN ×2 (03:56→09:41)
[2022-08-04 04:32] LABS: Absolute Lymphocytes (CBC) 4.6 K/uL (0.7-4.9); Hematocrit 24.6 % (36.0-45.0); Lymphocytes % 24.6 % (15.3-44.8); MCV 98.7 fL (80-100); MPV 8.3 fL (7.6-11.3)
[2022-08-04 04:45] LABS: Potassium 3.7 mEq/L (3.5-5.1)
[2022-08-04] MEDS: methocarbamoL 500 MG TAB PO SCH ×2 (05:36→13:06)
[2022-08-04] MEDS: PREGABALIN 75 MG CAP PO SCH ×2 (05:36→13:06)
[2022-08-04] MEDS ORDERED: POTASSIUM 25 MEQ EFFERV TAB PO ONE (09:00)
[2022-08-04] MEDS: ASPIRIN 81 MG CHEWABLE TABLET PO SCH (09:40)
[2022-08-04] MEDS: FOLIC ACID 1 MG TABLET PO SCH (09:41)
[2022-08-04] MEDS: APIXABAN 2.5 MG TABLET PO SCH (09:41)
[2022-08-04 12:06] VITALS: BP 112/59; TEMP 97.9; O2SAT 96
[2022-08-04] MEDS ORDERED: HEPARIN 500 UNIT/5 ML SYR IV PRN (12:59)
--- NOTE | 2022-08-12 22:51 | P.DS ---
Discharge Date: 08/04/22 Disposition: ROUTINE DISCHARGE Discharge Condition: GOOD Reason for Admission: Sickle cell crisis. - Problems (1) Anemia, sickle cell with crisis Status: Acute Brief History of Present Illness: Patient is a 31-year-old female with a past medical history significant for anxiety disorder, PE, sickle cell disease who presents with complaint of generalized body pain that has been ongoing for the past 3 days. Patient reported that she ran out of narcotics a week ago. Patient rated pain as 10/10 in severity and described pain as aching in quality. Patient also reports persistent cough with green sputum that has been ongoing for the past 1 and half weeks. Patient denies any other signs and symptoms. Symptoms are aggravated or relieved by nothing. Patient decided to present to the hospital due to worsening symptoms. Hospital Course: Patient has done well during hospital stay. Clinically, patient is doing better. Pain is well controlled. Will continue with outpatient pain control. At this time, patient is stable for discharge home. Patient will follow-up with consultants and PCP as an outpatient. Vital Signs/Physical Exam: Temp Pulse Resp BP Pulse Ox 97.9 F 67 14 112/59 L 96 08/04/22 12:00 08/04/22 12:00 08/04/22 13:07 08/04/22 12:00 08/04/22 13:07 General: Alert, In no apparent distress, Oriented x3 Laboratory Data at Discharge: WBC 18.80 thou/uL (4.3-10.9) H 08/04/22 04:00 Hgb 8.8 g/dL (12.0-15.0) L 08/04/22 04:00 Hct 24.6 % (36.0-45.0) L 08/04/22 04:00 Plt Count 487 thou/uL (152-406) H 08/04/22 04:00 Sodium 138 mEq/L (136-145) 08/04/22 04:00 Potassium 3.7 mEq/L (3.5-5.1) 08/04/22 04:00 BUN 7 mg/dL (7-18) 08/04/22 04:00 Creatinine 0.50 mg/dL (0.55-1.02) L 08/04/22 04:00 Glucose 112 mg/dL (74-106) H 08/04/22 04:00 Phosphorus 3.4 mg/dL (2.5-4.9) 08/01/22 13:37 Magnesium 2.0 mg/dL (1.6-2.4) 08/01/22 13:37 Total Bilirubin 4.3 mg/dL (0.2-1.0) H 08/01/22 10:14 AST 34 U/L (15-37) 08/01/22 10:14 ALT 42 U/L (13-56) 08/01/22 10:14 Alkaline Phosphatase 106 U/L (45-117) 08/01/22 10:14 Home Medications: Folic Acid [Folic Acid*] 1 mg PO DAILY 08/01/12 Cholecalciferol (Vitamin D3) [Vitamin D 1000 Iu Tab*] 50,000 unit PO EVERY 7TH DAY 09/30/20 Apixaban [Eliquis *] 2.5 mg PO BID #60 tablet 12/21/20 Pregabalin [Lyrica*] 75 mg PO Q8H #90 cap 04/09/22 Promethazine Tab [Phenergan*] 25 mg PO Q6HP PRN #30 tab 04/09/22 methocarbamoL [Robaxin*] 1,000 mg PO Q8H #60 tab 04/09/22 ALPRAZolam [Xanax*] 1 mg PO BIDP PRN #60 tab 08/04/22 Hydromorphone HCl [Dilaudid] 8 mg PO QID PRN #60 tab 08/04/22 New Medications: Hydromorphone HCl [Dilaudid] 8 mg PO QID PRN #60 tab PRN Reason: Pain Scale 8-10 (Severe) ALPRAZolam [Xanax*] 1 mg PO BIDP PRN #60 tab PRN Reason: Anxiety Physician Discharge Instructions: -DC IV and DC home -Follow-up with PCP in 1 to 2 weeks -Follow-up with Hematology in 1 to 2 weeks -Please call Dr. Castrejon at [phone] if any questions regarding hospital stay -Please call nursing station at [phone] if any nursing or medication questions -Return to the emergency room if symptoms worsen Diet: Regular Activity: Fall precautions Time spent managing pt's care (in minutes): 35
== END 2022-08-04 15:39 | disposition home or self-care (01) | DRG 812 ==
LOC: ER 09:14 → ERHOLD 12:44 → 2ND 17:51
PROVIDERS: ADMIT Hospitalist; ATTEND Hospitalist
PROC: 30233N1 Transfusion of Nonautologous Red Blood Cells into Peripheral Vein, Percutaneous Approach (ICD-10-PCS; principal; 2022-08-03)
DX: D57.00 Hb-SS disease with crisis, unspecified (principal); F41.9 Anxiety disorder, unspecified; G62.9 Polyneuropathy, unspecified; D72.829 Elevated white blood cell count, unspecified; Z88.5 Allergy status to narcotic agent; Z88.1 Allergy status to other antibiotic agents; Z88.8 Allergy status to other drugs, medicaments and biological substances; Z79.01 Long term (current) use of anticoagulants; Z86.711 Personal history of pulmonary embolism; Z79.899 Other long term (current) drug therapy; Z20.822 Contact with and (suspected) exposure to COVID-19
CPT/HCPCS: 36415; 71046; 71250; 80048; 80053; 82550; 83615; 83735; 83880; 84100; 84439; 84443; 85014; 85018; 85025; 85044; 85660; 86850; 86900; 86901; 86902; 86922; 87040; 96361; 96374; 96375; 99285; J1170; J1200; J1642; J2765; J7030; J7050; P9016

== ENCOUNTER 2022-09-23 19:14 | Inpatient (IN) | payer OTHER ==
--- OUTSIDE RECORDS SUMMARY | 2022-09-23 19:23 | XMS REPORT | Continuity of Care Document ---
:1990 Author Organization [facility] t Address [address] [facility] [place]. [address] [place] [address] Support Name Relationship Address Phone [place] [address] [phone] [place] [address] [place] OR N Y [address] [place] [address] HIPOLITO MCBRIDE MO Unavailable [place] [address] [phone] [place] [address] DENAE CHEEMA Unavailable [phone] MARIA M KENDRICK Unavailable [phone] [place] [address] [phone] [place] [address] [address] [place] [address] [phone] [place] [address] REHAN CHEEMA Unavailable [phone] [facility] [phone] [place] [address] MARÍA ELENA EL Unavailable [address] [facility] [phone] [place] [address] NELDA EL Unavailable [address] [facility] [phone] [place] [address] MD AMY ALONZO JR Admitting Provider [address] [facility] JEAN PIERRE [address] [place] [address] TRAY SIDDIQUI PA-C Primary Care Physician Donna SMITH [address] [place] [address] VIJAYA MULLEN MD TOKS A Emergency Provider [address] [place] [address] LN [phone] [place] [address] NAIMA MULLEN, ORIANA Attending Provider [address] [place] [address] IZZY MULLEN, CHAU Castellanos Emergency Provider [address] [facility] [address] [place] [address] PHYSICIAN, NO Primary Care Physician Unavailable UnavailMD AMARILIS Gutierrez MD Emergency Provider [address] [place] [address] OTHER, ENTER NAME IN Primary Care Physician Unavailable Unav ailable NOTES KIP MULLEN MD JENNIFER Emergency Provider [address] [place] [address] ISABELLA MULLEN MD [facility] Admitting Provider [address] [phone] [place] [address] MORIS FRANCIS Primary Care Physician [address] [facility] [phone] [place] [address] MD RODNEY CROWE Emergency Provider [facility] [place] [address] MD TYLER WRIGHT Emergency Provider Unavailable Unavailable MD SAMUEL KUMAR Emergency Provider [address] [place] [address] MD LESLY NEWTON Emergency Provider [address] [place] [address] Care Team Providers Name Role Phone FELIX NASCIMENTO Primary Care Physician Unavailable KAIN RUFF Attending Clinician Unavailable ELLIE HERNANDEZ Attending Clinician Unavailable CLIFTON DASILVA Attending Clinician Unavailable MARCUS MI Attending Clinician Unavailable MAURICIO GRISSOM Attending Clinician Unavailable Kym Land MD Attending Clinician Meenu Rodriguez MD Attending Clinician [phone] Kristina Sahni MD Attending Clinician KRISTINA [...] Number Effective Date Expiration Date S stacey [facility] [id number] 2015 2024 STARPLUS OON 00:00:00 00:00:00 EXCEPT 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 00:00: Medical [place] 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[facility] cell cell 2-28 [facility] crisis crisis 00:00: Medical [place] 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[facility] cell cell 2-28 [facility] crisis crisis 00:00: Medical 00 [place] Allergies, Adverse Reactions, Alerts Allergy Allergy Status Severity Reaction(s) Onset Inactive Treating Comm ents Source Name Type Date Date Clinician FENTANYL Allergy Active High [facility] 00[facility]: Medical [place] MORPHINE Allergy Active High [facility] 00:[facility]: Medical 00 [place] SULFA Allergy Active [facility] (SULFONA 8-18 [facility] MIDE 00:00: Medical ANTIBIOT 00 [place] ICS) Sulfa Propensi Active [facility] (Sulfona ty to 8-18 [facility] mide adverse 00:00: Medical Antibiot reaction 00 [place] ics) s Fentanyl Propensi Active Shortness Of [facility] ty to Breath 8-18 [facility] adverse 00:00: Medical reaction 00 [place] s Morphine Propensi Active Shortness Of [facility] ty to Breath 8-18 [facility] adverse 00:00: Medical reaction 00 [place] s Sulfa Propensi Active [facility] (Sulfona ty to 12-28 [facility] mide adverse 00:00: Medical Antibiot reaction 00 Center ics) s ONDANSET Allergy Active Low N\T\V [facility] RISHABH HCL 2-28 (PF) 00:00: 00 Ondanset Drug Active Nausea And [facility] rishabh Hcl Intolera Vomiting 2- [facility] (Pf) nce 00:00: Medical Center morphine DA Active SV [facility] 3[facility]11 [place] 00:00: d 00 Medical Center TEGEDERM DA Active OR [facility] DRESSING 8-23 [place] 00:00: d 00 Medical Center Family History Family Member Diagnosis Comments Start Date Stop Date Source Natural brother Unremarkable [facility] Natural father Seizures [facility] Natural father Sickle cell trait [facility] Natural mother Sickle cell trait [facility] Natural sister Unremarkable [facility] Social History Social Habit Start Date Stop Date Quantity Comments Source History [facility] Non-Med Medical Center History [facility] Places Medical Ce nter Lived History [facility] 2021-12-29 2021-12-[address] [facility] [facility] Transport Med 00:00:00 00:00:[address] [facility] 2021-12-29 2021-12-[address] [facility] Housing Unable to 00:00:00 00:00:00 Medical Center Pay History [facility] 2021-12-29 2021-12-[address] [facility] Housing Homeless 00:00:00 00:00:00 Medical Center Last Year Alcohol intake 2021-12-28 2021-12-28 Current [facility] es 00:00:00 00:00:00 non-drinker of Medical Ce nter alcohol (finding) Tobacco use and 2015-07-10 2015-07-[address] [facility] exposure 00:00:00 00:00:00 non-user Medical Center Sex Assigned At [address] Ariana kes 00:00:00 00:00:00 Medical Center Smoking Status Start Date Stop Date Source Never smoked tobacco [facility] Medications Ordered Filled Start Stop Current Ordering Indication Dosage Frequency Signature Comments Components Source Medication Medication Date Date Medication? Clinician (SIG) Name Name folic acid 0 Yes folate 2mg QD Take [address] (FOLVITE) 1 8-24 deficiency by mouth [facility] MG tablet 15:59: daily. Medica l 55 Center penicillin 2021-0 Yes 250mg Take [address] v potassium 8-24 mg by [facility]ukes (VEETID) 15:59: mouth Medical 250 MG 55 every 12 Center tablet (twelve) hours. HYDROmorpho 202-0 Yes 8mg Take 8 mg C HI [...] every 12 Center tablet (twelve) hours. HYDROmorpho 202-0 Yes 8mg Take [address] ne 8-24 by mouth [facility] (DILAUDID) 15:59: every 6 Medi rita 8 MG tablet 55 (six) Center hours as needed for Pain. apixaban 0 Yes 2.5mg Q.5D Take 2.[address] (Eliquis) 8-24 mg by [facility]ukes 2.5 mg Tab 15:59: mouth 2 Medi riat tablet 55 (two) Center times daily . [...] mouth once Medi rita 00 a week. [place] VITAMIN D2 2019-0 Yes 1{capsu Q7D Take [address] 50,000 unit 2-25 le} capsule by Ariana kes capsule 00:00: mouth once Medi rita 00 a week. [place] VITAMIN D2 2019-0 Yes 1{capsu Q7D Take [address] 50,000 unit 2-25 le} capsule by Ariana kes capsule 00:00: mouth once Medi rita 00 a week. [place] VITAMIN D2 2019-0 Yes 1{capsu Q7D Take [address] 50,000 unit 2-25 le} capsule by Ariana kes capsule 00:00: mouth once Medi rita 00 a week. [place] VITAMIN D2 2019-0 Yes 1{capsu Q7D Take [address] 50,000 unit 2-25 le} capsule by Ariana kes capsule 00:00: mouth once Medi rita 00 a week. [place] VITAMIN D2 2019-0 Yes 1{capsu Q7D Take [address] 50,000 unit 2-25 le} capsule by Ariana kes capsule 00:00: mouth once Medi rita 00 a week. [place] VITAMIN D2 2019-0 Yes 1{capsu Q7D Take [address] 50,000 unit 2-25 le} capsule by Ariana kes capsule 00:00: mouth once Medi rita 00 a week. [place] VITAMIN D2 2019-0 Yes 1{capsu Q7D Take [address] 50,000 unit 2-25 le} capsule by Ariana kes capsule 00:00: mouth once Medi rita 00 a week. [place] VITAMIN D2 2019-0 Yes 1{capsu Q7D Take [address] 50,000 unit 2-25 le} capsule by Ariana kes capsule 00:00: mouth once Medi rita 00 a week. [place] VITAMIN D2 2019-0 Yes 1{capsu Q7D Take [address] 50,000 unit 2-25 le} capsule by Ariana kes capsule 00:00: mouth once Medi rita 00 a week. [place] VITAMIN D2 Yes 1{capsu Q7D Take [address] 50,000 unit 2-25 le} capsule by Ariana kes capsule 00:00: mouth once Medi rita 00 a week. [place] VITAMIN D2 Yes 1{capsu Q7D Take [address] 50,000 unit 2-25 le} capsule by Ariana kes capsule 00:00: mouth once Medi rita 00 a week. [place] VITAMIN D2 Yes 1{capsu Q7D Take [address] 50,000 unit 2-25 le} capsule by Ariana kes capsule 00:00: mouth once Medi rita 00 a week. [place] VITAMIN D2 Yes 1{capsu Q7D Take 1 [...] 6 (six) hours as needed. PROAIR HFA 0 Yes 1{puff} Inhale [address] 90 [...] kg Systolic blood 2022-01-03 15:29:00 124 mm[Hg] [facility] Diastolic blood 2022-01-03 15:29:00 58 mm[Hg] [facility] Heart rate 2022-01-03 15:29:00 106 /min [facility] Body temperature 2022-01-03 15:29:00 36.11 [place] [facility] Respiratory rate 2022-01-03 15:29:00 20 /min [facility] Oxygen saturation in 2022-01-03 15:29:00 93 /min [facility] Arterial blood by Medical Ce nter Pulse oximetry Body weight 2022-01-03 05:27:00 72.485 kg [facility] BMI 2022-01-03 05:27:00 29.23 kg/m2 [facility] Body height 2021-12-28 22:08:00 157.5 cm [facility] Procedures Procedure Date / Time Performed Performing Clinician Sour e BLOOD CULTURE 2022-01-03 09:49:00 Bora, [facility] CBC W/PLT COUNT & AUTO 2022-01-03 03:49:00 Bora, [facility] BASIC METABOLIC PANEL 2022-01-03 03:49:00 Bora, [facility] CBC W/PLT COUNT & AUTO 2022-01-03 03:49:00 Bora, [facility] (CELLAVISION MANUAL 2022-01-03 03:49:00 Bora, [facility] DIFF) [facility] SARS-COV2/RT-PCR ([facility] & 2022-01-02 21:11:00 Rosio Pollack [facility] REF LABS) [facility] CBC W/PLT COUNT & AUTO 2022-01-02 03:16:00 Bora, [facility] BASIC METABOLIC PANEL 2022-01-02 03:16:00 Bora, [facility] CBC W/PLT COUNT & AUTO 2022-01-02 03:16:00 Bora, [facility] (CELLAVISION MANUAL 2022-01-02 03:16:00 Bora, [facility] DIFF) Medical [place] CBC W/PLT COUNT & AUTO 2021-12-31 09:48:00 Bora, [facility] BASIC METABOLIC PANEL 2021-12-31 09:48:00 Bora, [facility] CBC W/PLT COUNT & AUTO 2021-12-31 09:48:00 Bora, [facility] (CELLAVISION MANUAL 2021-12-31 09:48:00 Bora, [facility]) [facility] BASIC METABOLIC PANEL 2021-12-30 02:41:00 Rosio Pollack CH I [facility] HEPATIC FUNCTION PANEL 2021-12-30 02:41:00 Rosio Pollack HI [facility] MAGNESIUM 2021-12-30 02:41:[address] [facility] [facility] CBC W/PLT COUNT & AUTO 2021-12-30 02:41:[address] [facility] DIFFERENTIAL [facility] CBC W/PLT COUNT & AUTO 2021-12-30 02:41:[address] [facility] DIFFERENTIAL [facility] (CELLAVISION MANUAL 2021-12-30 02:41:[address] [facility] DIFF) [facility] SARS-COV2/RT-PCR ([facility] & 2021-12-29 13:19:00 Ranjeet [address] [facility] REF LABS) [facility] 2D ECHO W/ DOPPLER 2021-12-29 10:56:17 PollackRosio [facility] (CW/PW/COLOR) [facility] ECG 12-LEAD 2021-12-29 04:52:19 Pollack Rosio Bhakta [facility] ECG 12-LEAD 2021-12-29 04:52:19 Unknown, 7 [facility] ECG 12-LEAD 2021-12-29 04:52:19 Unknown, 7 [facility] ECG 12-LEAD 2021-12-29 04:50:49 Unknown, 7 [facility] ECG 12-LEAD 2021-12-29 04:50:49 Unknown, 7 [facility] BASIC METABOLIC PANEL 2021-12-29 04:50:00 Ranjeet Rosio Reyesbekah LANDERS I [facility] HEPATIC FUNCTION PANEL 2021-12-29 04:50:00 Ranjeet Rosio Livia Kessler HI [facility] MAGNESIUM 2021-12-29 04:50:00 Ranjeet Rosio Bhakta [facility] CBC W/PLT COUNT & AUTO 2021-12-29 04:50:[address] [facility] DIFFERENTIAL [facility] CBC W/PLT COUNT & AUTO 2021-12-29 04:50:00 Rosio Pollack Livia C [facility] DIFFERENTIAL [facility] (CELLAVISION MANUAL 2021-12-29 04:50:00 Ranjeet Rosio Bhakta [facility] DIFF) [facility] SCREEN, URINE 2021-12-29 01:52:00 Rosio Pollack [facility] BASIC METABOLIC PANEL 2021-12-28 23:44:00 Rosio Pollack CH [facility] HEPATIC FUNCTION PANEL 2021-12-28 23:44:00 Rosio Pollack HI [facility] MAGNESIUM 2021-12-28 23:44:00 Rosio Pollack [facility] PHOSPHORUS 2021-12-28 23:44:00 Rosio Pollack [facility] TSH/FREE T4 IF INDICATED 2021-12-28 23:44:00 Rosio Pollack [facility] B-TYPE NATRIURETIC 2021-12-28 23:44:00 Rosio Pollack [facility] FA[facility] (BNP[facility] CBC W/PLT COUNT & AUTO 2021-12-28 23:44:00 Rosio Pollack [facility] PROTHROMBIN TIME/INR 2021-12-28 23:44:00 Rosio Pollack [facility] TYPE AND SCREEN, 2021-12-28 23:44:00 Rosio Pollack [facility] AUTOMATED [facility] CBC W/PLT COUNT & AUTO 2021-12-28 23:44:00 Rosio Pollack [facility] DIFFERENTIAL [facility] (CELLAVISION MANUAL 2021-12-28 23:44:00 Rosio Pollack [facility] DIFF) [facility] XR CHEST 1 VIEW PORTABLE 2021-12-28 23:31:00 Rosio Pollack [facility] / BEDSIDE [facility] HEPATITIS B SURFACE 2021-09-26 05:00:00 [facility] HEPATITIS A ANTIBODY, 2021-09-26 05:00:00 [facility] HEPATITIS C ANTIBODY 2021-09-26 05:00:00 [facility] HEPATITIS B CORE 2021-09-26 05:00:[address] [facility] ANTIBODY, TOTAL [facility] HEPATITIS B SURFACE 2021-09-24 21:59:[address] [facility] ANTIGEN [facility] HEPATITIS B CORE 2021-09-24 21:59:00 [facility] IGM [facility] HEPATITIS A ANTIBODY, 2021-09-24 21:59:00 [facility] IGM [facility] HEPATITIS C ANTIBODY 2021-09-24 21:59:00 [facility] HEPATITIS PANEL, ACUTE 2021-09-24 21:59:00 [facility] Plan of Care Planned Activity Planned Date Details Comments Source Future Scheduled 2023-01-[address] [facility] Test 00:00:00 (Season Ended) [code = [facility] INFLUENZA VACCINE (Season Ended)] Future Scheduled 2023-01-[address] [facility] Test 00:00:00 (Season Ended) [code = [facility] INFLUENZA VACCINE (Season Ended)] Future Scheduled 2022-12-[address] [facility] Test 00:00:00 (12+) [code = [facility] DEPRESSION SCREENING (12+)] Future Scheduled 2020-05-[address] [facility] Test 00:00:00 (12+) [code = [facility] DEPRESSION SCREENING (12+)] Future Scheduled 2020-01-12 [...] Medica l Center cervix (procedure) [code = 412414824] Future Scheduled 2012-09-[address] [facility] Test 00:00:00 malignant neoplasm of Medica l Center cervix (procedure) [code = 800600955] Future Scheduled 2012-09-[address] [facility] Test 00:00:00 malignant neoplasm of Medica l Center cervix (procedure) [code = 106697797] Future Scheduled 2012-09-[address] [facility] Test 00:00:00 malignant neoplasm of Medica l Center cervix (procedure) [code = 231580601] Future Scheduled 2012-09-[address] [facility] Test 00:00:00 malignant neoplasm of Medica l Center cervix (procedure) [code = 972599662] Future Scheduled 2012-09-[address] [facility] Test 00:00:00 malignant neoplasm of Medica l Center cervix (procedure) [code = 783994792] Future Scheduled 2012-09-[address] [facility] Test 00:00:00 malignant neoplasm of Medica l Center cervix (procedure) [code = 092174955] Future Scheduled 2012-09-[address] [facility] Test 00:00:00 malignant neoplasm of Medica l Center cervix (procedure) [code = 600806200] Future Scheduled 2012-09-[address] [facility] Test 00:00:00 malignant neoplasm of Medica l Center cervix (procedure) [code = 697399915] Future Scheduled 2012-09-[address] [facility] Test 00:00:00 malignant neoplasm of Medica l Center cervix (procedure) [code = 716764660] Future Scheduled 2012-09-[address] [facility] Test 00:00:00 malignant neoplasm of Medica l Center cervix (procedure) [code = 224133182] Future Scheduled 2012-09-[address] [facility] Test 00:00:00 malignant neoplasm of Medica l Center cervix (procedure) [code = 920903449] Future Scheduled 2012-09-[address] [facility] Test 00:00:00 malignant neoplasm of Medica l Center cervix (procedure) [code = 884972864] Future Scheduled 2012-09-[address] [facility] Test 00:00:00 malignant neoplasm of Medica l Center cervix (procedure) [code = 438258632] Future Scheduled 2012-09-[address] [facility] Test 00:00:00 malignant neoplasm of Medica l Center cervix (procedure) [code = 088890747] Future Scheduled 2012-09-[address] [facility] Test 00:00:00 malignant neoplasm of Medica l Center cervix (procedure) [code = 756668971] Future Scheduled [address] [facility] Test 00:00:00 (procedure) [code = [facility] Center 20264433] Future Scheduled [address] [facility] Test 00:00:00 (procedure) [code = [facility] 96329648] Future Scheduled [address] [facility] Test 00:00:00 (procedure) [code = [facility] 97142707] Future Scheduled [address] [facility] Test 00:00:00 (procedure) [code = [facility] 13566664] Future Scheduled [address] [facility] Test 00:00:00 (procedure) [code = [facility] 36502369] Future Scheduled 2010-09-05 DTAP/TDAP/TD VACCINES CH I [...] Type Clinicians Facility Department ID 2022-03-14 Outpatient [facility] [id number] [place] 15:10:41 [id number] [facility] 2022-03-12 Emergency HFD HFD [id number] ALICIA - 22:24:00 [facility] 2022-06-17 2022-06-26 Inpatient E SPEEDY [facility] MED [id number] [facility] 21:54:00 17:25:00 NADA 2022-05-16 2022-05-16 Emergency E [facility] [id number] [facility] 01:31:00 13:37:00 ELLIE 2022-03-13 2022-03-19 Inpatient E VIDYA [facility] MED [id number] [facility] 13:47:00 17:30:00 [place] 2022-02-19 2022-03-06 Inpatient E HIWOT [facility] MED [id number] [facility] 07:38:00 17:27:00 MARCUS 2022-01-09 2022-01-09 Outpatient SATISH GRISSOM [facility] [id number] [facility] 00:00:00 00:00:00 MAURICIO 2021-12-28 2022-01-03 Hospital UR GregtachoDeanaShaw Kym [facility] [id number] [facility] 21:57:00 15:59:00 Encounter Meenu Rodriguez Amna [facility] 2021-12-28 2022-01-03 Inpatient UR KRISTINA SAHNI [facility] General Med 2 [id number] [facility] 21:57:00 15:59:00 2021-12-28 2022-01-03 [facility] Kym Land [facility] [id number] 21:57:00 15:59:00 Encounter Meenu Rodriguez Amna Medic [facility] 2021-12-29 2021-12-29 Outpatient [place]CM BC [id number] [facility] 00:00:00 23:59:00 [facility] 2021-12-29 2021-12-[address] [facility] [id number] 00:00:00 00:00:00 Only [facility] 2021-12-29 2021-12-[address] [facility] [id number] 00:00:00 00:00:00 [facility] 2021-09-26 2021-09-[address] [facility] [id number] 00:00:00 00:00:00 [facility] 2021-09-26 2021-09-[address] [facility] [id number] [facility]00 [facility] [facility] [id number] [facility]:00[facility]00 [facility]00[facility]-09-[facility]-09-[address] [facility] [id number] 00:00:00 00:00:00 [facility] 2021-06-05 2021-06-08 Inpatient E PERLITA GUTIERREZ MED [id number] [facility] 04:10:00 13:24:00 [facility] 2021-06-03 2021-06-03 Emergency E PERLITA CORREA BL 7525 BL 02:02:00 14:43:00 RAHEL 2021-04-04 2021-04-04 Emergency E JENNIFER SHAH GABRIELE BL [id number] [facility] 02:21:00 06:06:00 2021-02-26 2021-03-04 [facility] [id number] [facility] 15:00:00 16:50:00 AAMIR 2021-02-18 2021-02-23 [...] 1095) No growth in 5 days BLOOD [id number] 13:00:55 Test Item Value Reference Range Interpretation Comments CULTURE (BEAKER) (test No growth in 5 days code = 1095) CBC W/PLT COUNT & AUTO [id number] 07:10:44 Test Item Value Reference Range Interpretation [...] K/uL 0.00-0.00 H (CELLAVISION)(BEAKER) (test code = 7258) TOTAL COUNTED (BEAKER) (test code 100 = [...] CONCENTRATION Increased (CELLAVISION)(BEAKER) (test code = 3438) Battery Tester ID - emanuel Srikanth comments: Slide comments:BASIC [...] not appl icable for dialysis patien ts Battery Tester ID - PIETER MSpecimen slightly ictericSARS-CoV2/RT-PCR (Asymptomatic ONLY)2022-01-03 01:56:54 Test Item Value Reference Range Interpretation Comments SARS-COV2/RT-PCR Negative Not Detected, (test code = Negative, See 43841-0) external report for linked test SARS-COV-2 [facility] (test code = 82135-4) RUSLAN (test code = Negative result for [...] of the Act. Fact Sheet for Healthcare Providers:https://www.[employer].GroupTalent/sites/default/f reza/product/documents/F act_Sheet_HC_Providers_L ekx_SXOD-RbG-2.pdf Fact Sheet for Healthcare Patients:https://www.[employer].GroupTalent/sites/default/fi les/product/documents/Fa ct_Sheet_Patients_Lyra_S ARS-CoV-2.pdf Performing Laboratory:[facility] [place] [address] [facility]Asymptomatic ONLY)2022-01-03 01:56:54 Test Item Value Reference Range Interpretation Comments SARS-COV2/RT-PCR Negative Not Detected, (test code = Negative, See 82412-9) external report for linked test SARS-COV-2 [facility] (test code = 71554-5) RUSLAN (test code = Negative result for [...] of the Act. Fact Sheet for Healthcare Providers:https://www.exozet idel.GroupTalent/sites/default/f reza/product/documents/F act_Sheet_HC_Providers_L tkg_LABJ-ZtW-1.pdf Fact Sheet for Healthcare Patients:https://www.[employer] del.GroupTalent/sites/default/fi les/product/documents/Fa ct_Sheet_Patients_Lyra_S ARS-CoV-2.pdf Performing Laboratory:[facility] [place] [address] [facility] (Asymptomatic ONLY)2022-01-03 01:56:54 Test Item Value Reference Range Interpretation Comments SARS-COV2/RT-PCR Negative Not Detected, (test code = Negative, See 96889-6) external report for linked test SARS-COV-2 [facility] (test code = 57233-0) RUSLAN (test code = Negative result for [...] of the Act. Fact Sheet for Healthcare Providers:https://www.exozet idePlayMaker CRM.GroupTalent/sites/default/f reza/product/documents/F act_Sheet_HC_Providers_L bps_IPLV-GsW-3.pdf Fact Sheet for Healthcare Patients:https://www.[employer] del.GroupTalent/sites/default/fi les/product/documents/Fa ct_Sheet_Patients_Lyra_S ARS-CoV-2.pdf Performing Laboratory:[facility] [place] [address] [facility]2022-01-03 01:56:54 Test Item Value Reference Range Interpretation Comments SARS-COV2/RT-PCR Negative Not Detected, (test code = Negative, See 31903-3) external report for linked test SARS-COV-2 [facility] (test code = 38320-2) RUSLAN (test code = Negative result for [...] of the Act. Fact Sheet for Healthcare Providers:https://www.[employer].GroupTalent/sites/default/f reza/product/documents/F act_Sheet_HC_Providers_L mro_QNDX-XpR-1.pdf Fact Sheet for Healthcare Patients:https://www.[employer].GroupTalent/sites/default/fi les/product/documents/Fa ct_Sheet_Patients_Jesus_S ARS-CoV-2.pdf Performing Laboratory:[facility] [place] [address] [facility] (Asymptomatic ONLY)2022-01-03 01:56:54 Test Item Value Reference Range Interpretation Comments SARS-COV2/RT-PCR Negative Not Detected, (test code = Negative, See 88502-8) external report for linked test SARS-COV-2 [facility] (test code = 07811-3) RUSLAN (test code = Negative result for [...] of the Act. Fact Sheet for Healthcare Providers:https://www.[employer]om[employer].GroupTalent/sites/default/f reza/product/documents/F act_Sheet_HC_Providers_L frk_KZRJ-OeL-3.pdf Fact Sheet for Healthcare Patients:https://www.Virgin Play/sites/default/fi les/product/documents/Fa ct_Sheet_Patients_Ly_S ARS-CoV-2.pdf Performing Laboratory:[facility] [place] [address] [facility] (Asymptomatic ONLY)2022-01-03 01:56:54 Test Item Value Reference Range Interpretation Comments SARS-COV2/RT-PCR Negative Not Detected, (test code = Negative, See 31727-4) external report for linked test SARS-COV-2 [facility] (test code = 24621-2) RUSLAN (test code = Negative result for [...] of the Act. Fact Sheet for Healthcare Providers:https://www.[employer]/sites/default/f reza/product/documents/F act_Sheet_HC_Providers_L zoy_ZAQG-RgP-3.pdf Fact Sheet for Healthcare Patients:https://www.[employer]/sites/default/fi les/product/documents/Fa ct_Sheet_Patients_Lyra_S ARS-CoV-2.pdf Performing Laboratory:[facility] [place] [address] [facility] (Asymptomatic ONLY)2022-01-03 01:56:54 Test Item Value Reference Range Interpretation Comments SARS-COV2/RT-PCR Negative Not Detected, (test code = Negative, See 01786-4) external report for linked test SARS-COV-2 [facility] (test code = 31432-8) RUSLAN (test code = Negative result for [...] of the Act. Fact Sheet for Healthcare Providers:https://www.[employer]/sites/default/f reza/product/documents/F act_Sheet_HC_Providers_L eyd_QRGH-VkR-7.pdf Fact Sheet for Healthcare Patients:https://www.[employer]/sites/default/fi les/product/documents/Fa ct_Sheet_Patients_Lyra_S ARS-CoV-2.pdf Performing Laboratory:[facility], [place] [address] [place], [place] [address]ARS-CoV2/RT-PCR (Asymptomatic ONLY)2022-01-03 01:56:54 Test Item Value Reference Range Interpretation Comments SARS-COV2/RT-PCR Negative Not Detected, (test code = Negative, See 37577-7) external report for linked test SARS-COV-2 [facility] (test code = 91386-9) RUSLAN (test code = Negative result for [...] of the Act. Fact Sheet for Healthcare Providers:https://www.[employer]/sites/default/f reza/product/documents/F act_Sheet_HC_Providers_L egt_RYRG-AdD-7.pdf Fact Sheet for Healthcare Patients:https://www.[employer]/sites/default/fi les/product/documents/Fa ct_Sheet_Patients_Lyra_S ARS-CoV-2.pdf Performing Laboratory:[facility], [place] [address] [place], [place] [address]ARS-CoV2/RT-PCR (Asymptomatic ONLY)2022-01-03 01:56:54 Test Item Value Reference Range Interpretation Comments SARS-COV2/RT-PCR Negative Not Detected, (test code = Negative, See 39852-0) external report for linked test SARS-COV-2 [facility] (test code = 82283-1) RUSLAN (test code = Negative result for [...] of the Act. Fact Sheet for Healthcare Providers:https://www.[employer]/sites/default/f reza/product/documents/F act_Sheet_HC_Providers_L lqa_VNIY-EqF-5.pdf Fact Sheet for Healthcare Patients:https://www.[employer]/sites/default/fi les/product/documents/Fa ct_Sheet_Patients_Lyra_S ARS-CoV-2.pdf Performing Laboratory:[facility], [place] [address] [place], [place] [address]ARS-CoV2/RT-PCR (Asymptomatic ONLY)2022-01-03 01:56:54 Test Item Value Reference Range Interpretation Comments SARS-COV2/RT-PCR Negative Not Detected, (test code = Negative, See 29058-2) external report for linked test SARS-COV-2 [facility] (test code = 61680-4) RUSLAN (test code = Negative result for [...] of the Act. Fact Sheet for Healthcare Providers:https://www.[employer]/sites/default/f reza/product/documents/F act_Sheet_HC_Providers_L prf_ZSIN-IyW-7.pdf Fact Sheet for Healthcare Patients:https://www.[employer]/sites/default/fi les/product/documents/Fa ct_Sheet_Patients_Lyra_S ARS-CoV-2.pdf Performing Laboratory:[facility] [place] [address] [facility] (Asymptomatic ONLY)2022-01-03 01:56:54 Test Item Value Reference Range Interpretation Comments SARS-COV2/RT-PCR Negative Not Detected, (test code = Negative, See 83450-5) external report for linked test SARS-COV-2 [facility] (test code = 52680-6) RUSLAN (test code = Negative result for [...] of the Act. Fact Sheet for Healthcare Providers:https://www.[employer]/sites/default/f reza/product/documents/F act_Sheet_HC_Providers_L yim_UFID-MeW-6.pdf Fact Sheet for Healthcare Patients:https://www.[employer]/sites/default/fi les/product/documents/Fa ct_Sheet_Patients_Lyra_S ARS-CoV-2.pdf Performing Laboratory:[facility], [place] [address] [place], [place] [address]ARS-COV2/RT-PCR ([facility])2022-01-03 01:56:54 Test Item Value Reference Range Interpretation Comments SARS-COV2/RT-PCR (test Negative Not Detected, Negative, code = 2994155) See external report for linked test SARS-COV-[address] [facility] (test code = 6521511) Negative result for this test determines that [...] of the Act.Fact Sheet for Healthcare Prov iders:https://www.Lazy Angel/sites/default/files/product/documents/Fact_Sheet_HC _Flgenfrzy_Alrp_RVFQ-MeD-3.pdfFact Sheet for Healthcare Patients:https://www.L[employer] Angel/sites/default/files/product/docume nts/Nixp_Wanbx_Mjqxqjic_Wgvh_HOZF-BrG-9.pdfPerforming Laboratory:[facility] [place] [address](CELLAVISION MANUAL DIFF) 2022-01-02 07:09:24 Test Item Value [...] 767) ARTIFACT (CELLAVISION)(BEAKER) Present (test code = 6462) PAPPENHEIMER 1+ few (CELLAVISION)(BEAKER) (test code = 3435) PLATELET CONCENTRATION Increased (CELLAVISION)(BEAKER) (test code = 3438) Battery Tester ID - Martine OverholtUser comments: Slide comments:CBC W/PLT COUNT & AUTO [id number] 07:09:23 Test Item Value Reference Range Interpretation [...] (BEAKER) (test code = 413) BASIC METABOLIC [id number] 03:43:56 Test Item Value Reference Range Interpretation [...] 30-44 G4 Severl y decreased 15-29 G5 Kidne y failure <15Reported eGF R is based on the CKD-EPI 2020 equation that d oes not use a race coefficientEsti mated GFR is not as accur ate as Creatinine Joy shani in predicting glom erular filtration rate . Estimated GFR is not appl icable for dialysis patien ts Battery Tester ID - PIAYA LSpecimen slightly icteric(CELLAVISION MANUAL [...] CONCENTRATION Increased (CELLAVISION)(BEAKER) (test code = 3438) Battery Tester ID - 6000Operator ID - Martine OverholtUser comments: Slide comments:CBC W/PLT COUNT & AUTO [id number] 11:06:13 Test Item Value Reference Range Interpretation [...] (BEAKER) (test code = 413) BASIC METABOLIC [id number] 10:23:17 Test Item Value Reference Range Interpretation [...] not appl icable for dialysis patien ts Battery Tester ID - MITCHCBC W/PLT COUNT & AUTO [id number] 03:54:02 Test Item Value Reference Range Interpretation [...] CONCENTRATION Increased (CELLAVISION)(BEAKER) (test code = 3438) Battery Tester ID - Cornelius Santos comments: Slide comments:BASIC [...] not appl icable for dialysis patien ts Battery Tester ID - PIETER [id number] 03:27:46 Test Item Value Reference Range Interpretation Comments MAGNESIUM (BEAKER) (test code = 1.5 mg/dL 1.6-2.6 L 627) Battery Tester ID - PIETER MHEPATIC FUNCTION [id number] 03:27:46 Test Item Value Reference Range Interpretation [...] (test code = 50 U/L 6-55 347) Battery Tester ID - PIETER KIRKRS-COV2/RT-PCR ([facility])2021-12-29 20:53:09 Test Item Value Reference Range Interpretation Comments SARS-COV2/RT-PCR (test Negative Not Detected, Negative, code = 9691275) See external report for linked test SARS-COV-[address] [facility] (test code = 5580081) Negative result for this test determines that [...] of the Act.Fact Sheet for Healthcare Prov iders:https://www.O[employer]city.com/sites/default/files/product/documents/Fact_Sheet_HC _Zzcjtplwl_Esns_WSKY-KsG-0.pdfFact Sheet for Healthcare Patients:https://www.[employer].GroupTalent/sites/default/files/product/docume nts/Dbrp_Jcplc_Awegqogr_Azei_IVTK-PxD-5.pdfPerforming Laboratory:[place] [address] [place] [address]Rkvytqkqqtnrr 2D echo w/ doppler (cw/pw/color)2021-12-29 15:36:58Ejection FractionSLEH ECHO HEARTLAB [facility] (cw/pw/color)2021-12-29 15:36:58Ejection FractionSLEH ECHO [facility]ARTLAB [facility] w/ doppler (cw/pw/color) 2021-12-29 15:36:58Ejection FractionSLEH ECHO HEARTLAB [facility] w/ doppler (cw/pw/color)2021-12-29 15:36:58Ejection FractionSLEH ECHO HEARTLAB [facility] w/ doppler (cw/pw/color)2021-12-29 15:36:58Ejection FractionSLEH ECHO HEARTLAB [facility] Transthoracic 2D echo w/ doppler (cw/pw/color)2021-12-29 15:36:58Ejection FractionSLEH ECHO HEARTLAB [facility] Transthoracic 2D echo w/ doppler (cw/pw/color)2021-12-29 15:36:58Ejection FractionSLEH ECHO HEARTLAB [facility] Transthoracic 2D echo w/ doppler (cw/pw/color)2021-12-29 15:36:58Ejection FractionSLEH ECHO HEARTLAB [facility] Transthoracic 2D echo w/ doppler (cw/pw/color)2021-12-29 15:36:58Ejection FractionSLEH ECHO HEARTLAB [facility] Transthoracic 2D echo w/ doppler (cw/pw/color)2021-12-29 15:36:58Ejection FractionSLEH ECHO HEARTLAB [facility] Transthoracic 2D echo w/ doppler (cw/pw/color)2021-12-29 15:36:58Ejection FractionSLEH ECHO HEARTLAB MKCKESSON [facility] (CELLAVISION MANUAL DIFF)2021-12-29 07:16:35 Test Item Value [...] CONCENTRATION Increased (CELLAVISION)(BEAKER) (test code = 3438) Battery Tester ID - emanuel Duke comments: Slide comments:CBC W/PLT COUNT & AUTO [id number] 07:16:31 Test Item Value Reference Range Interpretation [...] CONCENTRATION Increased (CELLAVISION)(BEAKER) (test code = 3438) Battery Tester ID - emanuel Duke comments: Slide comments:CBC W/PLT COUNT & AUTO [id number] 07:16:30 Test Item Value Reference Range Interpretation [...] 0-0 H (BEAKER) (test code = 413) [id number] 06:49:49 Test Item Value Reference Range Interpretation Comments MAGNESIUM (BEAKER) (test code = 1.4 mg/dL 1.6-2.6 L 627) Battery Tester ID - PIETER EPATIC FUNCTION [id number] 06:49:49 Test Item Value Reference Range Interpretation [...] (test code = 43 U/L 6-55 347) Battery Tester ID - PIETER MBASIC METABOLIC [id number] 06:49:48 Test Item Value Reference Range Interpretation [...] 70-105 (BEAKER) (test code = 652) CALCIUM (AILEEN) 9.0 mg/dL 8.4-10.2 (test code = 697) EGFR (AILEEN) 123 Interpretatio n of eGFR (test code [...] not appl icable for dialysis patien ts Battery Tester ID - PIETER MPregnancy Screen, [id number] 03:16:32 Test Item Value Reference Range Interpretation Comments Preg Test, Ur (test code = 2111-1) Negative Negative Lab Interpretation (test code = Normal 76887-8) [facility], [id number] 03:16:32 Test Item Value Reference Range Interpretation Comments Preg Test, Ur (test code = 2111-1) Negative Negative Lab Interpretation (test code = Normal 29758-4) [facility], [id number] 03:16:32 Test Item Value Reference Range Interpretation Comments Preg Test, Ur (test code = 2-1) Negative Negative Lab Interpretation (test code = Normal 37126-8) [facility], [id number] 03:16:32 Test Item Value Reference Range Interpretation Comments Preg Test, Ur (test code = 2112-1) Negative Negative Lab Interpretation (test code = Normal 81781-3) [facility], [id number] 03:16:32 Test Item Value Reference Range Interpretation Comments Preg Test, Ur (test code = 2112-1) Negative Negative Lab Interpretation (test code = Normal 04245-4) [facility], [id number] 03:16:32 Test Item Value Reference Range Interpretation Comments Preg Test, Ur (test code = 2112-1) Negative Negative Lab Interpretation (test code = Normal 01710-4) [facility], [id number] 03:16:32 Test Item Value Reference Range Interpretation Comments Preg Test, Ur (test code = 2112-1) Negative Negative Lab Interpretation (test code = Normal 65840-4) [facility], [id number] 03:16:32 Test Item Value Reference Range Interpretation Comments Preg Test, Ur (test code = 2112-1) Negative Negative Lab Interpretation (test code = Normal 62782-3) [facility], [id number] 03:16:32 Test Item Value Reference Range Interpretation Comments Preg Test, Ur (test code = 2112-1) Negative Negative Lab Interpretation (test code = Normal 75050-0) [facility], [id number] 03:16:32 Test Item Value Reference Range Interpretation Comments Preg Test, Ur (test code = 2112-1) Negative Negative Lab Interpretation (test code = Normal 68425-5) [facility], [id number] 03:16:32 Test Item Value Reference Range Interpretation Comments Preg Test, Ur (test code = 2112-1) Negative Negative Lab Interpretation (test code = Normal 51674-7) [facility] CampusPREGNANCY SCREEN, [id number] 03:16:32 Test Item Value Reference Range Interpretation Comments TEST URINE (BEAKER) (test Negative Negative code = 583) TSH/FREE T4 IF [id number] 00:37:03 Test Item Value Reference Range Interpretation Comments THYROID STIMULATING HORMONE 1.144 uIU/mL 0.350-4.940 (BEAKER) (test code = 772) Battery Tester ID - PIERO [id number] 00:23:22 Test Item Value Reference Range Interpretation Comments PHOSPHORUS (BEAKER) (test code = 3.6 mg/dL 2.3-4.7 604) Battery Tester ID - PIERO LHEPATIC FUNCTION [id number] 00:23:22 Test Item Value Reference Range Interpretation [...] (test code = 45 U/L 6-55 347) Battery Tester ID - PIERO LBASIC METABOLIC [id number] 00:23:21 Test Item Value Reference Range Interpretation [...] De scription 1092) sq m Result G1 Norm al or high >=90 G2 Mildly decreased 60-89 [...] not appl icable for dialysis patien ts Battery Tester ID - PIMARY [id number] 00:23:21 Test Item Value Reference Range Interpretation Comments MAGNESIUM (BEAKER) (test code = 1.7 mg/dL 1.6-2.6 627) Battery Tester ID - PIERO LB-TYPE NATRIURETIC FACTOR (BNP)2021-12-29 00:22:19 Test Item Value Reference Range Interpretation Comments B-TYPE NATRIURETIC PEPTIDE (BEAKER) 12 pg/mL 0-100 (test code = 700) Battery Tester ID - PIERO LPROTHROMBIN TIME/[id number] 00:13:42 Test Item Value Reference Range Interpretation Comments PROTIME (BEAKER) 14.2 seconds 11.9-14.2 (test code = 759) INR (BEAKER) (test 1.13 See_Comment [Automat ed message] code = 370) The system Encite generated this result transmitted ref erence range: <=5.90. The reference range was not used to int erpret this result as normal/abnormal . RECOMMENDED COUMADIN/WARFARIN INR THERAPY RANGESSTANDARD DOSE: 2.0 - 3.0 Includes: PROPHYLAXIS for venous thrombosis, systemic embolization; TREATMENT for venous thrombosis and/or pulmonary embolus.HIGH RISK: Target INR is 2.5-3.5 for patients with mechanical heart valves.RAD, CHEST, 1 VIEW, NON [id number] 23:56:00Reason for exam:->dyspnea; sickle cell crisisIs the patient ?->UnknownShould this be performed at the bedside?->Yes [facility] 1990 Sex: FFINAL REPORT [...] Date/Time: 12/28/2021 23:56:16 Hepatitis B core antibody, [id number] 11:45:17 Test Item Value Reference Range Interpretation Comments Hep B Core Total Ab (test Nonreactive Nonreactive code = 12806-4) RUSLAN (test code = RUSLAN) Battery Tester ID - DB Lab Interpretation (test Normal code = 00357-6) [facility] A antibody, [id number] 11:45:17 Test Item Value Reference Range Interpretation Comments Hep A IgM (test code = Nonreactive Nonreactive 52996-2) RUSLAN (test code = RUSLAN) Battery Tester ID - DB Lab Interpretation (test Normal code = 64782-7) [facility] C [id number] 11:45:17 Test Item Value Reference Range Interpretation Comments Hepatitis C Ab (test code = Nonreactive Nonreactive 01086-9) RUSLAN (test code = RUSLAN) Battery Tester ID - DB Lab Interpretation (test Normal code = 71883-6) [facility]Hep[facility] core antibody, [id number] 11:45:17 Test Item Value Reference Range Interpretation Comments Hep B Core Total Ab (test Nonreactive Nonreactive code = 48073-9) RUSLAN (test code = RUSLAN) Battery Tester ID - DB Lab Interpretation (test Normal code = 35459-0) [facility] A antibody, [id number] 11:45:17 Test Item Value Reference Range Interpretation Comments Hep A IgM (test code = Nonreactive Nonreactive 50524-8) RUSLAN (test code = RUSLAN) Battery Tester ID - DB Lab Interpretation (test Normal code = 44228-6) [facility] C [id number] 11:45:17 Test Item Value Reference Range Interpretation Comments Hepatitis C Ab (test code = Nonreactive Nonreactive 03735-7) RUSLAN (test code = RUSLAN) Battery Tester ID - DB Lab Interpretation (test Normal code = 87270-9) [facility] B core antibody, [id number] 11:45:17 Test Item Value Reference Range Interpretation Comments Hep B Core Total Ab (test Nonreactive Nonreactive code = 22140-7) RUSLAN (test code = RUSLAN) Battery Tester ID - DB Lab Interpretation (test Normal code = 97379-5) [facility], [id number] 11:45:17 Test Item Value Reference Range Interpretation Comments Hep A IgM (test code = Nonreactive Nonreactive 80125-1) RUSLAN (test code = RUSLAN) Battery Tester ID - DB Lab Interpretation (test Normal code = 89569-5) [facility] C [id number] 11:45:17 Test Item Value Reference Range Interpretation Comments Hepatitis C Ab (test code = Nonreactive Nonreactive 17940-8) RUSLAN (test code = RUSLAN) Battery Tester ID - DB Lab Interpretation (test Normal code = 30965-9) [facility] B core antibody, [id number] 11:45:17 Test Item Value Reference Range Interpretation Comments Hep B Core Total Ab (test Nonreactive Nonreactive code = 54781-4) RUSLAN (test code = RUSLAN) Battery Tester ID - DB Lab Interpretation (test Normal code = 57268-1) [facility], [id number] 11:45:17 Test Item Value Reference Range Interpretation Comments Hep A IgM (test code = Nonreactive Nonreactive 42223-1) RUSLAN (test code = RUSLAN) Battery Tester ID - DB Lab Interpretation (test Normal code = 73363-4) [facility] C [id number] 11:45:17 Test Item Value Reference Range Interpretation Comments Hepatitis C Ab (test code = Nonreactive Nonreactive 31355-6) RUSLAN (test code = RUSLAN) Battery Tester ID - DB Lab Interpretation (test Normal code = 75225-2) [facility] B core antibody, [id number] 11:45:17 Test Item Value Reference Range Interpretation Comments Hep B Core Total Ab (test Nonreactive Nonreactive code = 13913-5) RUSLAN (test code = RUSLAN) Battery Tester ID - DB Lab Interpretation (test Normal code = 41402-4) [facility], [id number] 11:45:17 Test Item Value Reference Range Interpretation Comments Hep A IgM (test code = Nonreactive Nonreactive 54653-2) RUSLAN (test code = RUSLAN) Battery Tester ID - DB Lab Interpretation (test Normal code = 94769-7) [facility] C [id number] 11:45:17 Test Item Value Reference Range Interpretation Comments Hepatitis C Ab (test code = Nonreactive Nonreactive 85239-4) RUSLAN (test code = RUSLAN) Battery Tester ID - DB Lab Interpretation (test Normal code = 32715-2) [facility] B core antibody, [id number] 11:45:17 Test Item Value Reference Range Interpretation Comments Hep B Core Total Ab (test Nonreactive Nonreactive code = 73067-0) RUSLAN (test code = RUSLAN) Battery Tester ID - DB Lab Interpretation (test Normal code = 92462-1) [facility], [id number] 11:45:17 Test Item Value Reference Range Interpretation Comments Hep A IgM (test code = Nonreactive Nonreactive 73030-5) RUSLAN (test code = RUSLAN) Battery Tester ID - DB Lab Interpretation (test Normal code = 02418-0) [facility] C [id number] 11:45:17 Test Item Value Reference Range Interpretation Comments Hepatitis C Ab (test code = Nonreactive Nonreactive 31151-0) RUSLAN (test code = RUSLAN) Battery Tester ID - DB Lab Interpretation (test Normal code = 81461-0) [facility], [id number] 11:45:17 Test Item Value Reference Range Interpretation Comments Hep B Core Total Ab (test Nonreactive Nonreactive code = 26337-5) RUSLAN (test code = RUSLAN) Battery Tester ID - DB Lab Interpretation (test Normal code = 16030-2) [facility], [id number] 11:45:17 Test Item Value Reference Range Interpretation Comments Hep A IgM (test code = Nonreactive Nonreactive 36256-9) RUSLAN (test code = RUSLAN) Battery Tester ID - DB Lab Interpretation (test Normal code = 66027-6) [facility] C [id number] 11:45:17 Test Item Value Reference Range Interpretation Comments Hepatitis C Ab (test code = Nonreactive Nonreactive 29620-8) RUSLAN (test code = RUSLAN) Battery Tester ID - DB Lab Interpretation (test Normal code = 24475-0) [facility] B core antibody, [id number] 11:45:17 Test Item Value Reference Range Interpretation Comments Hep B Core Total Ab (test Nonreactive Nonreactive code = 91643-7) RUSLAN (test code = RUSLAN) Battery Tester ID - DB Lab Interpretation (test Normal code = 77703-7) [facility] A antibody, [id number] 11:45:17 Test Item Value Reference Range Interpretation Comments Hep A IgM (test code = Nonreactive Nonreactive 98947-9) RUSLAN (test code = RUSLAN) Battery Tester ID - DB Lab Interpretation (test Normal code = 97908-0) [facility] [id number] 11:45:17 Test Item Value Reference Range Interpretation Comments Hepatitis C Ab (test code = Nonreactive Nonreactive 45610-4) RUSLAN (test code = RUSLAN) Battery Tester ID - DB Lab Interpretation (test Normal code = 64433-6) [facility] B core antibody, [id number] 11:45:17 Test Item Value Reference Range Interpretation Comments Hep B Core Total Ab (test Nonreactive Nonreactive code = 57595-8) RUSLAN (test code = RUSLAN) Battery Tester ID - DB Lab Interpretation (test Normal code = 90944-9) [facility], [id number] 11:45:17 Test Item Value Reference Range Interpretation Comments Hep A IgM (test code = Nonreactive Nonreactive 42469-9) RUSLAN (test code = RUSLAN) Battery Tester ID - DB Lab Interpretation (test Normal code = 23530-1) [facility] [id number] 11:45:17 Test Item Value Reference Range Interpretation Comments Hepatitis C Ab (test code = Nonreactive Nonreactive 95821-3) RUSLAN (test code = RUSLAN) Battery Tester ID - DB Lab Interpretation (test Normal code = 89006-2) [facility], [id number] 11:45:17 Test Item Value Reference Range Interpretation Comments Hep B Core Total Ab (test Nonreactive Nonreactive code = 03005-0) RUSLAN (test code = RUSLAN) Battery Tester ID - DB Lab Interpretation (test Normal code = 81502-5) [facility], [id number] 11:45:17 Test Item Value Reference Range Interpretation Comments Hep A IgM (test code = Nonreactive Nonreactive 53792-5) RUSLAN (test code = RUSLAN) Battery Tester ID - DB Lab Interpretation (test Normal code = 94861-9) [facility] [id number] 11:45:17 Test Item Value Reference Range Interpretation Comments Hepatitis C Ab (test code = Nonreactive Nonreactive 80995-5) RUSLAN (test code = RUSLAN) Battery Tester ID - DB Lab Interpretation (test Normal code = 48446-7) [facility], [id number] 11:45:17 Test Item Value Reference Range Interpretation Comments Hep A IgM (test code = Nonreactive Nonreactive 19856-5) RUSLAN (test code = RUSLAN) Battery Tester ID - DB Lab Interpretation (test Normal code = 77092-7) [facility] [id number] 11:45:17 Test Item Value Reference Range Interpretation Comments Hepatitis C Ab (test code = Nonreactive Nonreactive 78466-3) RUSLAN (test code = RUSLAN) Battery Tester ID - DB Lab Interpretation (test Normal code = 50930-5) [facility], [id number] 11:45:17 Test Item Value Reference Range Interpretation Comments Hep B Core Total Ab (test Nonreactive Nonreactive code = 79363-0) RUSLAN (test code = RUSLAN) Battery Tester ID - DB Lab Interpretation (test Normal code = 77640-2) [facility] [id number] 11:45:17 Test Item Value Reference Range Interpretation Comments HEPATITIS C ANTIBODY (BEAKER) Nonreactive Nonreactive (test code = 367) Battery Tester ID - DBPATITIS A ANTIBODY, [id number] 11:45:17 Test Item Value Reference Range Interpretation Comments HEPATITIS A IGM ANTIBODY (BEAKER) Nonreactive Nonreactive (test code = 498) Battery Tester ID - DBHEPATITIS B CORE ANTIBODY, [id number] 11:45:17 Test Item Value Reference Range Interpretation Comments HEPATITIS B CORE TOTAL ANTIBODY Nonreactive Nonreactive (BEAKER) (test code = 497) Battery Tester ID - DBHepatitis B surface [id number] 11:45:12 Test Item Value Reference Range Interpretation Comments Hepatitis B surface Nonreactive Nonreactive antigen (test code = 5195-3) RUSLAN (test code = RUSLAN) Specimen is considered negative for HBsAg. Lab Interpretation (test Normal code = 12061-6) [facility] [id number] 11:45:12 Test Item Value Reference Range Interpretation Comments Hepatitis B surface Nonreactive Nonreactive antigen (test code = 5195-3) RUSLAN (test code = RUSLAN) Specimen is considered negative for HBsAg. Lab Interpretation (test Normal code = 03602-0) [facility] [id number] 11:45:12 Test Item Value Reference Range Interpretation Comments Hepatitis B surface Nonreactive Nonreactive antigen (test code = 5195-3) RUSLAN (test code = RUSLAN) Specimen is considered negative for HBsAg. Lab Interpretation (test Normal code = 82690-8) [facility] [id number] 11:45:12 Test Item Value Reference Range Interpretation Comments Hepatitis B surface Nonreactive Nonreactive antigen (test code = 5195-3) RUSLAN (test code = RUSLAN) Specimen is considered negative for HBsAg. Lab Interpretation (test Normal code = 57522-7) [facility] [id number] 11:45:12 Test Item Value Reference Range Interpretation Comments Hepatitis B surface Nonreactive Nonreactive antigen (test code = 5195-3) RUSLAN (test code = RUSLAN) Specimen is considered negative for HBsAg. Lab Interpretation (test Normal code = 48499-6) [facility] [id number] 11:45:12 Test Item Value Reference Range Interpretation Comments Hepatitis B surface Nonreactive Nonreactive antigen (test code = 5195-3) RUSLAN (test code = RUSLAN) Specimen is considered negative for HBsAg. Lab Interpretation (test Normal code = 42244-2) [facility] B surface [id number] 11:45:12 Test Item Value Reference Range Interpretation Comments Hepatitis B surface Nonreactive Nonreactive antigen (test code = 5195-3) RUSLAN (test code = RUSLAN) Specimen is considered negative for HBsAg. Lab Interpretation (test Normal code = 11784-0) [facility] B surface [id number] 11:45:12 Test Item Value Reference Range Interpretation Comments Hepatitis B surface Nonreactive Nonreactive antigen (test code = 5195-3) RUSLAN (test code = RUSLAN) Specimen is considered negative for HBsAg. Lab Interpretation (test Normal code = 48717-6) [facility] B surface [id number] 11:45:12 Test Item Value Reference Range Interpretation Comments Hepatitis B surface Nonreactive Nonreactive antigen (test code = 5195-3) RUSLAN (test code = RUSLAN) Specimen is considered negative for HBsAg. Lab Interpretation (test Normal code = 27677-4) [facility] B surface [id number] 11:45:12 Test Item Value Reference Range Interpretation Comments Hepatitis B surface Nonreactive Nonreactive antigen (test code = 5195-3) RUSLAN (test code = RUSLAN) Specimen is considered negative for HBsAg. Lab Interpretation (test Normal code = 25173-4) [facility] B surface [id number] 11:45:12 Test Item Value Reference Range Interpretation Comments Hepatitis B surface Nonreactive Nonreactive antigen (test code = 5195-3) RUSLAN (test code = RUSLAN) Specimen is considered negative for HBsAg. Lab Interpretation (test Normal code = 58466-1) [facility] B SURFACE [id number] 11:45:12 Test Item Value Reference Range Interpretation Comments HEPATITIS B SURFACE ANTIGEN (2) Nonreactive Nonreactive (BEAKER) (test code = 2585) Specimen is considered negative for HBsAg.Hepatitis B core antibody, IgM 2021-09-25 19:51:14 Test Item Value Reference Range Interpretation Comments Hep B C IgM (test code = 68473-0) Nonreactive Nonreactive Lab Interpretation (test code = Normal 41897-5) [facility] panel, [id number] 19:51:14 Test Item Value Reference Range Interpretation Comments Hep A IgM (test code = Nonreactive Nonreactive 28084-6) Hep B C IgM (test code = Nonreactive Nonreactive 76995-5) Hepatitis C Ab (test code = Nonreactive Nonreactive 15284-3) Hepatitis B surface antigen Nonreactive Nonreactive (test code = 5195-3) RUSLAN (test code = RUSLAN) Battery Tester ID - DB Lab Interpretation (test Normal code = 41640-3) [facility] B core antibody, [id number] 19:51:14 Test Item Value Reference Range Interpretation Comments Hep B C IgM (test code = 35311-4) Nonreactive Nonreactive Lab Interpretation (test code = Normal 88392-8) [facility], [id number] 19:51:14 Test Item Value Reference Range Interpretation Comments Hep A IgM (test code = Nonreactive Nonreactive 56607-5) Hep B C IgM (test code = Nonreactive Nonreactive 10352-8) Hepatitis C Ab (test code = Nonreactive Nonreactive 00931-5) Hepatitis B surface antigen Nonreactive Nonreactive (test code = 5195-3) RUSLAN (test code = RUSLAN) Battery Tester ID - DB Lab Interpretation (test Normal code = 36301-8) [facility] antibody, [id number] 19:51:14 Test Item Value Reference Range Interpretation Comments Hep B C IgM (test code = 76829-7) Nonreactive Nonreactive Lab Interpretation (test code = Normal 75576-6) [facility] panel, [id number] 19:51:14 Test Item Value Reference Range Interpretation Comments Hep A IgM (test code = Nonreactive Nonreactive 19160-1) Hep B C IgM (test code = Nonreactive Nonreactive 29791-0) Hepatitis C Ab (test code = Nonreactive Nonreactive 64171-8) Hepatitis B surface antigen Nonreactive Nonreactive (test code = 5195-3) RUSLAN (test code = RUSLAN) Battery Tester ID - DB Lab Interpretation (test Normal code = 62540-8) [facility], [id number] 19:51:14 Test Item Value Reference Range Interpretation Comments Hep B C IgM (test code = 04409-4) Nonreactive Nonreactive Lab Interpretation (test code = Normal 98532-4) [facility], [id number] 19:51:14 Test Item Value Reference Range Interpretation Comments Hep A IgM (test code = Nonreactive Nonreactive 34068-9) Hep B C IgM (test code = Nonreactive Nonreactive 00278-0) Hepatitis C Ab (test code = Nonreactive Nonreactive 02335-9) Hepatitis B surface antigen Nonreactive Nonreactive (test code = 5195-3) RUSLAN (test code = RUSLAN) Battery Tester ID - DB Lab Interpretation (test Normal code = 63749-1) [facility] B core antibody, [id number] 19:51:14 Test Item Value Reference Range Interpretation Comments Hep B C IgM (test code = 67160-7) Nonreactive Nonreactive Lab Interpretation (test code = Normal 52551-3) [facility] panel, [id number] 19:51:14 Test Item Value Reference Range Interpretation Comments Hep A IgM (test code = Nonreactive Nonreactive 66311-8) Hep B C IgM (test code = Nonreactive Nonreactive 24359-8) Hepatitis C Ab (test code = Nonreactive Nonreactive 74366-7) Hepatitis B surface antigen Nonreactive Nonreactive (test code = 5195-3) RUSLAN (test code = RUSLAN) Battery Tester ID - DB Lab Interpretation (test Normal code = 36329-1) [facility], [id number] 19:51:14 Test Item Value Reference Range Interpretation Comments Hep B C IgM (test code = 85555-4) Nonreactive Nonreactive Lab Interpretation (test code = Normal 54369-7) [facility], [id number] 19:51:14 Test Item Value Reference Range Interpretation Comments Hep A IgM (test code = Nonreactive Nonreactive 76668-0) Hep B C IgM (test code = Nonreactive Nonreactive 53922-2) Hepatitis C Ab (test code = Nonreactive Nonreactive 90253-0) Hepatitis B surface antigen Nonreactive Nonreactive (test code = 5195-3) RUSLAN (test code = RUSLAN) Battery Tester ID - DB Lab Interpretation (test Normal code = 00166-0) [facility], [id number] 19:51:14 Test Item Value Reference Range Interpretation Comments Hep B C IgM (test code = 78963-6) Nonreactive Nonreactive Lab Interpretation (test code = Normal 09630-4) [facility] panel, [id number] 19:51:14 Test Item Value Reference Range Interpretation Comments Hep A IgM (test code = Nonreactive Nonreactive 45759-7) Hep B C IgM (test code = Nonreactive Nonreactive 33327-3) Hepatitis C Ab (test code = Nonreactive Nonreactive 56422-0) Hepatitis B surface antigen Nonreactive Nonreactive (test code = 5195-3) RUSLAN (test code = RUSLAN) Battery Tester ID - DB Lab Interpretation (test Normal code = 57410-6) [facility] B core antibody, [id number] 19:51:14 Test Item Value Reference Range Interpretation Comments Hep B C IgM (test code = 76984-6) Nonreactive Nonreactive Lab Interpretation (test code = Normal 21922-4) [facility] panel, [id number] 19:51:14 Test Item Value Reference Range Interpretation Comments Hep A IgM (test code = Nonreactive Nonreactive 82471-3) Hep B C IgM (test code = Nonreactive Nonreactive 20775-3) Hepatitis C Ab (test code = Nonreactive Nonreactive 44852-0) Hepatitis B surface antigen Nonreactive Nonreactive (test code = 5195-3) RUSLAN (test code = RUSLAN) Battery Tester ID - DB Lab Interpretation (test Normal code = 88152-5) [facility] B core antibody, [id number] 19:51:14 Test Item Value Reference Range Interpretation Comments Hep B C IgM (test code = 32428-2) Nonreactive Nonreactive Lab Interpretation (test code = Normal 43383-2) [facility] panel, [id number] 19:51:14 Test Item Value Reference Range Interpretation Comments Hep A IgM (test code = Nonreactive Nonreactive 03091-5) Hep B C IgM (test code = Nonreactive Nonreactive 56456-9) Hepatitis C Ab (test code = Nonreactive Nonreactive 31496-1) Hepatitis B surface antigen Nonreactive Nonreactive (test code = 5195-3) RUSLAN (test code = RUSLAN) Battery Tester ID - DB Lab Interpretation (test Normal code = 09490-6) [facility] B core antibody, [id number] 19:51:14 Test Item Value Reference Range Interpretation Comments Hep B C IgM (test code = 57192-2) Nonreactive Nonreactive Lab Interpretation (test code = Normal 36344-7) [facility] panel, [id number] 19:51:14 Test Item Value Reference Range Interpretation Comments Hep A IgM (test code = Nonreactive Nonreactive 61355-1) Hep B C IgM (test code = Nonreactive Nonreactive 69179-7) Hepatitis C Ab (test code = Nonreactive Nonreactive 08042-1) Hepatitis B surface antigen Nonreactive Nonreactive (test code = 5195-3) RUSLAN (test code = RUSLAN) Battery Tester ID - DB Lab Interpretation (test Normal code = 94406-6) [facility] B core antibody, [id number] 19:51:14 Test Item Value Reference Range Interpretation Comments Hep B C IgM (test code = 20877-5) Nonreactive Nonreactive Lab Interpretation (test code = Normal 93047-8) [facility] panel, [id number] 19:51:14 Test Item Value Reference Range Interpretation Comments Hep A IgM (test code = Nonreactive Nonreactive 12564-0) Hep B C IgM (test code = Nonreactive Nonreactive 22249-1) Hepatitis C Ab (test code = Nonreactive Nonreactive 25892-2) Hepatitis B surface antigen Nonreactive Nonreactive (test code = 5195-3) RUSLAN (test code = RUSLAN) Battery Tester ID - DB Lab Interpretation (test Normal code = 58171-1) [facility] PANEL, [id number] 19:51:14 Test Item Value Reference Range Interpretation Comments HEPATITIS A IGM ANTIBODY (BEAKER) Nonreactive Nonreactive (test code = 498) HEPATITIS B CORE IGM ANTIBODY Nonreactive Nonreactive (BEAKER) (test code = 645) HEPATITIS C ANTIBODY (BEAKER) Nonreactive Nonreactive (test code = 367) HEPATITIS B SURFACE ANTIGEN (2) Nonreactive Nonreactive (BEAKER) (test code = 2585) Battery Tester ID - DBHEPATITIS A ANTIBODY, [id number] 19:51:14 Test Item Value Reference Range Interpretation Comments HEPATITIS A IGM ANTIBODY (BEAKER) Nonreactive Nonreactive (test code = 498) HEPATITIS B CORE ANTIBODY, [id number] 19:51:14 Test Item Value Reference Range Interpretation Comments HEPATITIS B CORE IGM ANTIBODY Nonreactive Nonreactive (BEAKER) (test code = 645) HEPATITIS B SURFACE [id number] 19:51:14 Test Item Value Reference Range Interpretation Comments HEPATITIS B SURFACE ANTIGEN (2) Nonreactive Nonreactive (BEAKER) (test code = 2585) Specimen is considered negative for HBsAg.HEPATITIS C [id number] 19:51:14 Test Item Value Reference Range Interpretation Comments HEPATITIS C ANTIBODY (BEAKER) Nonreactive Nonreactive (test code = 367) SARS-COV2/RT-PCR ([facility])2019-11-14 17:47:00 Test Item Value Reference Range Interpretation Comments SARS-COV2/RT-PCR (test code = Negative Not Detected, Negative 0547942) SARS-COV-[address] [facility] (test code = 0099172) Negative results do not preclude SARS-CoV-2 infection [...] of the Act.Fact Sheet for Healthcare Pro viders:https://www.[employer]/Documents/Xpert%20Xpress%20SARS%20CoV-2/Fact%20Sh eets/302-3802%82RWWU-BAC-1%20HEALTHCARE%20PROVIDERS%20FACT%20SHEET.pdfFact Sheet for Healthcare Patients:https://www.[employer]/Documents/Xpert%20Xpress%20SARS%20CoV-2/Fact%20Sheets/302-3801%20SARS-COV -2%20PATIENT%20FACT%20SHEET.pdfPerforming Laboratory:[address]vanessaTsaile [facility], [place] [address]BTT W/PLT COUNT & AUTO DIFFERENTIAL 2018-08-10 08:25:00 [...] 3438) Received comment: User comments: Slide comments:RETICULOCYTE [id number] 08:06:00 Test Item Value Reference Range Interpretation Comments RETICULOCYTE COUNT PCT (BEAKER) (test 25.0 % 0.5-1.7 H code = 575) CBC W/PLT COUNT & AUTO [id number] 09:27:00 Test Item Value Reference Range Interpretation [...] 3438) Received comment: User comments: Slide comments:RETICULOCYTE [id number] 05:01:00 Test Item Value Reference Range Interpretation Comments RETICULOCYTE COUNT PCT (BEAKER) (test 21.6 % 0.5-1.7 H code = 575) CBC W/PLT COUNT & AUTO [id number] 15:17:00 Test Item Value Reference Range Interpretation [...] H (BEAKER) (test code = 413) RETICULOCYTE [id number] 08:44:00 Test Item Value Reference Range Interpretation Comments RETICULOCYTE COUNT PCT (BEAKER) (test 23.8 % 0.5-1.7 H code = 575) BLOOD [id number] 14:01:00 Test Item Value Reference Range Interpretation Comments CULTURE (BEAKER) (test No growth in 5 days code = 1095) BLOOD [id number] 12:01:00 Test Item Value Reference Range Interpretation Comments CULTURE (BEAKER) (test No growth in 5 days code = 1095) CBC W/PLT COUNT & AUTO [id number] 11:38:00 Test Item Value Reference Range Interpretation [...] 3438) Received comment: User comments: Slide comments:RETICULOCYTE [id number] 07:44:00 Test Item Value Reference Range Interpretation Comments RETICULOCYTE COUNT PCT (BEAKER) (test 27.0 % 0.5-1.7 H code = 575) RETICULOCYTE [id number] 07:19:00 Test Item Value Reference Range Interpretation Comments RETICULOCYTE COUNT PCT (BEAKER) (test 22.7 % 0.5-1.7 H code = 575) CBC W/PLT COUNT & AUTO [id number] 12:07:00 Test Item Value Reference Range Interpretation [...] 3438) Received comment: User comments: Slide comments:RETICULOCYTE [id number] 06:14:00 Test Item Value Reference Range Interpretation Comments RETICULOCYTE COUNT PCT (BEAKER) (test 21.9 % 0.5-1.7 H code = 575) [id number] 06:02:00 Test Item Value Reference Range Interpretation Comments PHOSPHORUS (BEAKER) (test code = 3.8 mg/dL 2.3-4.7 604) [id number] 06:02:00 Test Item Value Reference Range Interpretation Comments MAGNESIUM (BEAKER) (test code = 1.8 mg/dL 1.6-2.6 627) BASIC METABOLIC [id number] 06:02:00 Test Item Value Reference Range Interpretation [...] Specimen moderately ictericCBC W/PLT COUNT & AUTO [id number] 09:09:00 Test Item Value Reference Range Interpretation [...] = 3438) Received comment: User comments: Slide comments:[id number] 04:11:00 Test Item Value Reference Range Interpretation Comments PHOSPHORUS (BEAKER) (test code = 3.3 mg/dL 2.3-4.7 604) [id number] 04:11:00 Test Item Value Reference Range Interpretation Comments MAGNESIUM (BEAKER) (test code = 1.6 mg/dL 1.6-2.6 627) BASIC METABOLIC [id number] 04:11:00 Test Item Value Reference Range Interpretation [...] FOR DIALYSIS PATIEN TS. Specimen slightly ictericRETICULOCYTE [id number] 03:54:00 Test Item Value Reference Range Interpretation Comments RETICULOCYTE COUNT PCT (BEAKER) (test 20.4 % 0.5-1.7 H code = 575) CBC W/PLT COUNT & AUTO [id number] 18:30:00 Test Item Value Reference Range Interpretation [...] = 413) CBC W/PLT COUNT & AUTO [id number] 10:51:00 Test Item Value Reference Range Interpretation [...] 3438) Received comment: User comments: Slide comments:RETICULOCYTE [id number] 10:08:00 Test Item Value Reference Range Interpretation Comments RETICULOCYTE COUNT PCT (BEAKER) (test 14.4 % 0.5-1.7 H code = 575) CBC W/PLT COUNT & AUTO [id number] 09:30:00 Test Item Value Reference Range Interpretation [...] = 3438) Received comment: User comments: Slide comments:[id number] 03:32:00 Test Item Value Reference Range Interpretation Comments PHOSPHORUS (BEAKER) (test code = 3.5 mg/dL 2.3-4.7 604) [id number] 03:32:00 Test Item Value Reference Range Interpretation Comments MAGNESIUM (BEAKER) (test code = 1.8 mg/dL 1.6-2.6 627) BASIC METABOLIC [id number] 03:32:00 Test Item Value Reference Range Interpretation [...] ictericCT, CHEST WITH IV CONTRAST- PE TEST [id number] 14:01:00FINAL REPORT CT scan of the chest. [...] [place]ort Verified Date/Time: 08/02/2018 14:01:29 Reading Location: [facility] [id number] Ortho Consult Reading Room URINALYSIS W/ [...] 516) SOURCE(BEAKER) (test code = 2795) SCREEN, [id number] 11:15:00 Test Item Value Reference Range Interpretation Comments TEST URINE (BEAKER) (test Negative code = 583) RETICULOCYTE [id number] 04:43:00 Test Item Value Reference Range Interpretation Comments RETICULOCYTE COUNT PCT (BEAKER) (test 13.2 % 0.5-1.7 H code = 575) RAD, CHEST, 2 [id number] 03:54:00Reason for exam:->SICKLE CELL PAIN CRISISIs the [...] MDReport Verified Date/Time: 08/02/2018 03:54:52 Reading Location: [address] Reading Room CBC W/PLT COUNT & AUTO [id number] 03:04:00 Test Item Value Reference Range Interpretation [...] (BEAKER) (test code = 417) COMPREHENSIVE METABOLIC [id number] 02:42:00 Test Item Value Reference Range Interpretation [...]
[2022-09-23] MEDS ORDERED: KETAMINE HCL IN 0.9 % NACL 50 MG/5 ML SYRINGE IV ONE (20:22)
[2022-09-23] MEDS ORDERED: NA CHLORIDE 0.9% 1,000 ML ONE ×2 (20:22→21:18)
[2022-09-23] MEDS ORDERED: NA CHLORIDE 0.9% 50 ML ONE (20:25)
--- NOTE | 2022-09-23 20:41 | RAD REPORT ---
EXAM DESCRIPTION: RAD - Chest Single View - 09/23/2022 8:35 pm CLINICAL HISTORY: CHEST PAIN Chest pain. COMPARISON: Chest Pa And Lat (2 Views) dated 08/01/2022; Chest Single View dated 03/28/2022; Chest Si ngle View dated 12/23/2021; Chest Single View dated 12/14/2021 FINDINGS: Portable technique limits examination quality. The lungs are grossly clear. The heart is mildly prominent. No displaced fractures.Left-sided port ca theter has tip in the SVC. IMPRESSION: No acute intrathoracic process suspected.
[2022-09-23 20:46] LABS: Lymphocytes % 32.4 % (15.3-44.8); MCV 99.3 fL (80-100); MPV 7.9 fL (7.6-11.3); RBC Red Blood Cell Count 2.01 M/uL (3.86-4.86)
[2022-09-23 20:48] LABS: Protime INR 1.09
[2022-09-23 21:05] LABS: ALT/SGPT 51 U/L (13-56); AST/SGOT 41 U/L (15-37); Albumin 3.8 g/dL (3.4-5.0); Alkaline Phosphatase 97 U/L (45-117); BUN Blood Urea Nitrogen 7 mg/dL (7-18); Bicarbonate 26 mEq/L (21-32); Bilirubin Direct 0.6 mg/dL (0-0.2); Bilirubin Indirect, Calculated 2.3 mg/dL (0.2-0.8); Bilirubin Total 2.9 mg/dL (0.2-1.0); Creatine Phosphokinase 23 U/L (26-192); Glomerular Filtration Rate 136 ml/min (=/>90); Glucose Level 84 mg/dL (74-106); NT PRO-BNP 96 pg/mL (<125); Potassium 4.2 mEq/L (3.5-5.1); Protein, Total 7.6 g/dL (6.4-8.2); Sodium Level 137 mEq/L (136-145)
[2022-09-23] MEDS ORDERED: HYDROMORPHONE HCL 1 MG/ML INJ ONE ×2 (21:17→22:25)
[2022-09-23 21:21] LABS: Troponin High Sensitivity < 3.0 pg/mL (<58.9)
[2022-09-23 21:34] LABS: Anisocytosis 1+; Blood Morphology Comment NOTED (NOT SEEN); Platelet Estimate INCR; Platelets, Giant NOTED; Poikilocytosis 2+; Polychromasia 2+; Target Cells 1+
[2022-09-23 21:35] LABS: Rouleau NOTED
--- NOTE | 2022-09-23 21:58 | ER ---
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 worsened around 1400 today. lg3 Coronavirus screen: Client denies travel out of the [place] in the last 14 days. At this time, the client does not indicate any symptoms associated with coronavirus-19. Ebola Screen: No symptoms or risks identified at this time. Initial Sepsis Screen: Does the patient meet any 2 criteria? No. Patient's initial sepsis screen is negative. Does the patient have a suspected source of infection? No. Patient's initial sepsis screen is negative. Risk Assessment: Do you want to hurt yourself or someone else? Patient reports no desire to harm self or others. Onset of symptoms is unknown. 19:34 Method Of Arrival: Ambulatory lg3 19:34 Acuity: MARILUZ 3 lg3 Triage Assessment: 19:36 General: Appears distressed, uncomfortable, Behavior is calm, cooperative. Pain: lg3 Complains of pain in everywhere Pain currently is 10 out of 10 on a pain scale. EENT: No deficits noted. No signs and/or symptoms were reported regarding the EENT system. Neuro: No deficits noted. Rodríguez Agitation-Sedation Scale (RASS): +1 Restless Level of Consciousness is awake, alert, obeys commands, Oriented to person, place, time, situation. Cardiovascular: No deficits noted. Denies chest pain, shortness of breath, Capillary refill < 3 seconds Clubbing of nail beds is absent JVD is absent. Respiratory: No deficits noted. Airway is patent Trachea midline Respiratory effort is even, unlabored, Respiratory pattern is regular, symmetrical. GI: No deficits noted. No signs and/or symptoms were reported involving the gastrointestinal system. Abdomen is round non-distended. : No deficits noted. No signs and/or symptoms were reported regarding the genitourinary system. Derm: No deficits noted. No signs and/or symptoms reported regarding the dermatologic system. Skin is intact, is healthy with good turgor, Skin is dry, Skin is normal, Skin temperature is warm. Musculoskeletal: Circulation, motion, and sensation intact. Range of motion: intact in all extremities. NUTRITION SERVICES ASSOCIATE: 19:36 LMP N/A - Irregular menses lg3 Historical: - Allergies: 19:36 Fentanyl; lg3 19:36 Morphine; lg3 19:36 Sulfa (Sulfonamide Antibiotics); lg3 19:36 Zofran; lg3 - Home Meds: 19:36 alprazolam 1 mg Oral tab [Active]; dilaudid 8 mg every 6 hours [Active]; Eliquis oral lg3 [Active]; Folic Acid Oral [Active]; Vitamin D Oral [Active]; - PMHx: 19:36 Anxiety; blood clot in lung; Sickle Cell; lg3 - PSHx: 19:36 Port placed to Left Chest; lg3 - Immunization history:: Adult Immunizations up to date, Client reports receiving the 1st dose of the Covid vaccine, Flu vaccine is not up to date. - Social history:: Smoking status: Patient denies any tobacco usage or history of. Patient uses street drugs, marijuana, Patient/guardian denies using alcohol. Screenin:40 [facility] ED Fall Risk Assessment (Adult) Score/Fall Risk Level 0 - 2 = Low Risk. Abuse eh3 screen: Denies threats or abuse. Denies injuries from another. Nutritional screening: No deficits noted. Tuberculosis screening: No symptoms or risk factors identified. Assessment: 19:40 General: Appears distressed, uncomfortable, Behavior is cooperative, appropriate for eh3 age. Pain: Complains of pain in back. Neuro: Level of Consciousness is awake, alert, obeys commands, Oriented to person, place, time, situation. Cardiovascular: Capillary refill < 3 seconds Patient's skin is warm and dry. Respiratory: Airway is patent Respiratory effort is even, unlabored, Respiratory pattern is regular, symmetrical. GI: Abdomen is round non-distended. : No signs and/or symptoms were reported regarding the genitourinary system. EENT: No signs and/or symptoms were reported regarding the EENT system. Derm: Skin is healthy with good turgor. Musculoskeletal: Circulation, motion, and sensation intact. 20:30 Reassessment: Patient and/or family updated on plan of care and expected duration. Pain eh3 level reassessed. Patient is alert, oriented x 3, equal unlabored respirations, skin warm/dry/pink. Patient states symptoms have not improved. 21:30 Reassessment: Patient appears in no apparent distress at this time. Patient and/or pf1 family updated on plan of care and expected duration. Pain level reassessed. Patient is alert, oriented x 3, equal unlabored respirations, skin warm/dry/pink. Patient states symptoms have improved. Vital Signs: 19:34 BP 116 / 62; Pulse 77; Resp 16 S; Temp 98.6(O); Pulse Ox 96% on R/A; Weight 65.77 kg lg3 (R); Height 5 ft. 2 in. (R); Pain 10/10; 20:30 BP 111 / 77; Pulse 71; Resp 20; Pulse Ox 98% on R/A; eh3 21:00 BP 114 / 61; Pulse 66; Resp 16; Pulse Ox 98% on R/A; eh3 19:34 Body Mass Index 26.52 (65.77 kg, 157.48 cm) lg3 19:34 Pain Scale: Adult lg3 ED Course: 19:24 Patient arrived in ED. mr 19:30 [facility] Michelle[facility] snw 19:30 Ishan Bah MD is Attending Physician. snw 19:35 Triage completed. lg3 19:36 Arm band placed on right wrist. lg3 19:40 Patient has correct armband on for positive identification. Placed in gown. Bed in low eh3 position. Call light in reach. Side rails up X2. Client placed on continuous cardiac and pulse oximetry monitoring. NIBP monitoring applied. Door closed. Noise minimized. Lights dimmed. Warm blanket given. 19:41 Angely Guerra, SHYAM is Primary Nurse. eh3 20:10 Accessed Port-a-Cath. using accessed w/ # 20 Peters needle, ,sterile technique, Clean \T\ eh3 dry. Dressing intact. Good blood return. Flushes easily. 20:37 XRAY Chest (1 view) In Process Unspecified. EDMS 21:00 Report given to SHYAM Vazquez. eh3 21:10 Diet: Patient given snack. Patient given juice. Patient given water. eh3 21:51 TS Sent. pf1 21:57 Moshe Moreno MD is Hospitalizing Provider. snw 22:00 No provider procedures requiring assistance completed. pf1 22:38 Patient admitted, IV remains in place. pf1 Administered Medications: 20:20 Drug: NS 0.9% IV 1000 ml Route: IV; Rate: 250 ml/hr; Site: Port-a-cath; 3 22:38 Follow up: Response: No adverse reaction; Marked relief of symptoms; IV Status: pf1 Infusion continued upon admission 20:20 Drug: Ketamine IVP 0.2 mg/kg Route: IVP; Site: Port-a-cath; 3 20:42 Follow up: Response: Pain is unchanged, physician notified 3 21:10 Drug: NS 0.9% IV 1000 ml Route: IV; Rate: 1 bolus; Site: Port-a-cath; 3 22:38 Follow up: Response: No adverse reaction; Marked relief of symptoms; IV Status: pf1 Infusion continued upon admission 21:10 Drug: HYDROmorphone IVP 1 mg Route: IVP; Site: Port-a-cath; 3 22:00 Follow up: Response: No adverse reaction; Marked relief of symptoms; Pain is decreased pf1 22:20 Drug: HYDROmorphone IVP 1 mg Route: IVP; Site: Port-a-cath; 1 22:38 Follow up: Response: No adverse reaction; Pain is unchanged, physician notified pf1 Medication: 22:38 VIS not applicable for this client. pf1 Outcome: 21:58 Decision to Hospitalize by Provider. snw 22:27 Admitted to Med/surg accompanied by nurse, via wheelchair, room 206, with chart, Report pf1 called to SHYAM Squires 22:38 Patient left the ED. pf1 22:38 Condition: stable pf1 22:38 Instructed on the need for admit, Demonstrated understanding of instructions. pf1 Signatures: Dispatcher [employer] EDMS Brooke Michelle, ANISH CAREER COORDINATOR-Laura Canada Lacie, RN RN 3 Angely Guerra, SHYAM RN 3 Marlen Rodgers RN RN pf1
--- NOTE | 2022-09-23 21:58 | EDPHYS ---
Physician Documentation [facility] Name: Gume Ortega Age: 32 yrs Sex: Female : 1990 Arrival Date: 09/23/2022 Time: 19:14 Bed 4 Private MD: ED Physician Ishan Bah HPI: 09/23 19:55 This 32 yrs old Black Female presents to ER via Ambulatory with complaints of Sickle snw Cell crisis. 19:55 generalized pain, patient states she has been trying to stay hydrated and is trying to snw eat but had not been able to keep it down.. 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 - Social history:: Smoking status: Patient denies any tobacco usage or history of. Patient uses street drugs, marijuana, Patient/guardian denies using alcohol. ROS: 19:54 Eyes: Negative for injury, pain, redness, and discharge, ENT: Negative for injury, snw pain, and discharge, Neck: Negative for injury, pain, and swelling, Cardiovascular: Negative for chest pain, palpitations, and edema, Respiratory: Negative for shortness of breath, cough, wheezing, and pleuritic chest pain, Abdomen/GI: Negative for abdominal pain, nausea, vomiting, diarrhea, and constipation, Back: Negative for injury and pain, : Negative for injury, bleeding, discharge, and swelling, MS/Extremity: Negative for injury and deformity, Skin: Negative for injury, rash, and discoloration, Neuro: Negative for headache, weakness, numbness, tingling, and seizure. 19:54 Constitutional: Positive for generalized pain, vomiting. Exam: 19:54 Constitutional: This is a well developed, well nourished patient who is awake, alert, snw and in no acute distress. Head/Face: Normocephalic, atraumatic. 19:54 ENT: Nares patent. No nasal discharge, no septal abnormalities noted. Tympanic membranes are normal and external auditory canals are clear. Oropharynx with no redness, swelling, or masses, exudates, or evidence of obstruction, uvula midline. Mucous membranes moist. Neck: Trachea midline, no thyromegaly or masses palpated, and no cervical lymphadenopathy. Supple, full range of motion without nuchal rigidity, or vertebral point tenderness. No Meningismus. Chest/axilla: Normal chest wall appearance and motion. Nontender with no deformity. No lesions are appreciated. Cardiovascular: Regular rate and rhythm with a normal S1 and S2. No gallops, murmurs, or rubs. Normal PMI, no JVD. No pulse deficits. Respiratory: Lungs have equal breath sounds bilaterally, clear to auscultation and percussion. No rales, rhonchi or wheezes noted. No increased work of breathing, no retractions or nasal flaring. Back: No spinal tenderness. No costovertebral tenderness. Full range of motion. 19:54 Skin: Warm, dry with normal turgor. Normal color with no rashes, no lesions, and no evidence of cellulitis. MS/ Extremity: Pulses equal, no cyanosis. Neurovascular intact. Full, normal range of motion. Neuro: Awake and alert, GCS 15, oriented to person, place, time, and situation. Cranial nerves II-XII grossly intact. Motor strength 5/5 in all extremities. Sensory grossly intact. Cerebellar exam normal. Normal gait. Psych: Awake, alert, with orientation to person, place and time. Behavior, mood, and affect are within normal limits. 19:54 Eyes: Extraocular movements: no acute changes, Conjunctiva: pale. 19:54 Abdomen/GI: Inspection: distension, that is mild, Bowel sounds: diminished, Palpation: mild abdominal tenderness, in all quadrants. Vital Signs: 19:34 BP 116 / 62; Pulse 77; Resp 16 S; Temp 98.6(O); Pulse Ox 96% on R/A; Weight 65.77 kg lg3 (R); Height 5 ft. 2 in. (R); Pain 10/10; 20:30 BP 111 / 77; Pulse 71; Resp 20; Pulse Ox 98% on R/A; eh3 21:00 BP 114 / 61; Pulse 66; Resp 16; Pulse Ox 98% on R/A; eh3 19:34 Body Mass Index 26.52 (65.77 kg, 157.48 cm) lg3 19:34 Pain Scale: Adult lg3 MDM: 19:39 Patient medically screened. snw 21:55 Differential Diagnosis sepsis, sickle cell crisis. Data reviewed: vital signs, nurses snw notes. Management of patient was discussed with the following: Hospitalist: Darryl Shipman. I considered the following discharge prescriptions or medication management in the emergency department Medications were administered in the Emergency Department. See MAR. Counseling: I had a detailed discussion with the patient and/or guardian regarding: the historical points, exam findings, and any diagnostic results supporting the discharge/admit diagnosis, lab results, radiology results, the need for further work-up and treatment in the hospital. Response to treatment: There is no appreciated change of the patient's symptoms at this time. 09/23 19:32 Order name: Basic Metabolic Panel; Complete Time: 21:24 snw 09/23 19:32 Order name: CBC with Diff; Complete Time: 21:35 snw 09/23 19:32 Order name: LFT's; Complete Time: 21:24 snw 09/23 19:32 Order name: Magnesium; Complete Time: 21:24 snw 09/23 19:32 Order name: NT PRO-BNP; Complete Time: 21:24 snw 09/23 19:32 Order name: PT-INR; Complete Time: 20:53 snw 09/23 19:32 Order name: Troponin HS; Complete Time: 21:24 snw 09/23 19:32 Order name: Retic Count; Complete Time: 21:35 snw 09/23 19:32 Order name: CPK; Complete Time: 21:24 snw 09/23 19:32 Order name: Test, Urine snw 09/23 19:32 Order name: Urinalysis w/ reflexes snw 09/23 19:32 Order name: Lactate w/ 2H reflex if indic.; Complete Time: 21:03 snw 09/23 19:32 Order name: Blood Culture Adult (2) snw 09/23 19:50 Order name: TS; Complete Time: 22:31 snw 09/23 20:52 Order name: Manual Differential; Complete Time: 21:35 EDMS 09/23 19:32 Order name: XRAY Chest (1 view); Complete Time: 20:44 snw 09/23 19:32 Order name: EKG; Complete Time: 19:33 snw 09/23 19:32 Order name: Cardiac monitoring; Complete Time: 20:12 snw 09/23 19:32 Order name: EKG - Nurse/Tech; Complete Time: 20:12 snw 09/23 19:32 Order name: IV Saline Lock; Complete Time: 20:12 snw 09/23 19:32 Order name: Labs collected and sent; Complete Time: 20:12 snw 09/23 19:32 Order name: O2 Per Protocol; Complete Time: 20:12 snw 09/23 19:32 Order name: O2 Sat Monitoring; Complete Time: 20:12 snw EC:50 Rate is 74 beats/min. Rhythm is regular. QRS Brooks is Normal. NC interval is normal. snw Clinical impression: NSR w/ Non-specific ST/T Changes. Administered Medications: 20:20 Drug: NS 0.9% IV 1000 ml Route: IV; Rate: 250 ml/hr; Site: Port-a-cath; 3 22:38 Follow up: Response: No adverse reaction; Marked relief of symptoms; IV Status: pf1 Infusion continued upon admission 20:20 Drug: Ketamine IVP 0.2 mg/kg Route: IVP; Site: Port-a-cath; 3 20:42 Follow up: Response: Pain is unchanged, physician notified 3 21:10 Drug: NS 0.9% IV 1000 ml Route: IV; Rate: 1 bolus; Site: Port-a-cath; 3 22:38 Follow up: Response: No adverse reaction; Marked relief of symptoms; IV Status: pf1 Infusion continued upon admission 21:10 Drug: HYDROmorphone IVP 1 mg Route: IVP; Site: Port-a-cath; 3 22:00 Follow up: Response: No adverse reaction; Marked relief of symptoms; Pain is decreased pf1 22:20 Drug: HYDROmorphone IVP 1 mg Route: IVP; Site: Port-a-cath; pf1 22:38 Follow up: Response: No adverse reaction; Pain is unchanged, physician notified pf1 Disposition: 09/24 05:20 Co-signature as Attending Physician, Ishan Bah MD I agree with the assessment sp4 and plan of care. I reviewed the patient's care provided by the Advanced Practice Provider and agree with the diagnosis and treatment plan. Disposition Summary: 09/23/22 21:58 Hospitalization Ordered Hospitalization Status: Observation snw Provider: Moshe Moreno snw Location: Telemetry/MedSurg (observation) snw Condition: Stable snw Problem: an acute exacerbation snw Symptoms: are unchanged snw Bed/Room Type: Standard snw Room Assignment: 206(09/23/22 22:05) kl Diagnosis - Other sickle-cell disorders without crisis - intractable pain snw Forms: - Medication Reconciliation Form snw - SBAR form snw Signatures: Dispatcher [employer] EDMS Sabina Urbina RN RN Brooke Taveras, CLINICAL LAB SCIENTIST-C CLINICAL LAB SCIENTIST-Csnw Enoch Chavez CLINICAL LAB SCIENTIST-C CLINICAL LAB SCIENTIST-Cla1 Taylor Combs RN RN lg3 Angely Guerra RN RN 3 Marlen Rodgers RN RN pf1 Ishan Bah MD MD sp4 Corrections: (The following items were deleted from the chart) 09/23 22:05 21:58 snw kl
--- NOTE | 2022-09-23 22:43 | P.HP ---
Certification for Inpatient Patient admitted to: Inpatient With expected LOS: >2 Midnights Patient will require the following post-hospital care: None Practitioner: I am a practitioner with admitting privileges, knowledge of patient current condition, hospital course, and medical plan of care. Services: Services provided to patient in accordance with Admission requirements found in Title 42 Section 412.3 of the Code of Federal Regulations Patient History Date of Service: 09/23/22 Reason for admission: Sickle cell anemia, intractable pain History of Present Illness: 32-year-old female with history of anxiety, sickle cell anemia, history of PE presents emergency department for worsening generalized pain. She reports her pain has been increasing over the course of last 1 week, around 1500 today she began having severe pain that was unrelieved with her oral Dilaudid. At home she takes Dilaudid 8 mg p.o. 4 times daily in addition to other adjunctive medications. She denies any new or changing symptoms specifically no fever, chills, dysuria, cough, abdominal pain. She was evaluated in the emergency department her labs were significant for leukocytosis white blood cell count 20.6 hemoglobin 7.0 hematocrit 20.0 platelets 602 T. bili 2.9 T. bili 0.6 indirect bilirubin 2.3 lactic acid 0.5 sickle cells 1+ absolute reticulocyte 0.28. ED requesting admission for sickle cell anemia/intractable pain. Allergies ondansetron HCl [From Zofran] Allergy (Mild, Verified 03/28/22 00:34) Nausea/Vomiting fentanyl [From Sublimaze (PF)] Allergy (Verified 03/28/22 00:34) Anaphylaxis morphine Allergy (Verified 03/28/22 00:34) Nausea/Vomiting Sulfa (Sulfonamide Antibiotics) Allergy (Verified 03/28/22 00:34) Nausea/Vomiting Home Medications: Folic Acid [Folic Acid*] 1 mg PO DAILY 08/01/12 Cholecalciferol (Vitamin D3) [Vitamin D 1000 Iu Tab*] 50,000 unit PO EVERY 7TH DAY 09/30/20 Apixaban [Eliquis *] 2.5 mg PO BID #60 tablet 12/21/20 Pregabalin [Lyrica*] 75 mg PO Q8H #90 cap 04/09/22 Promethazine Tab [Phenergan*] 25 mg PO Q6HP PRN #30 tab 04/09/22 methocarbamoL [Robaxin*] 1,000 mg PO Q8H #60 tab 04/09/22 ALPRAZolam [Xanax*] 1 mg PO BIDP PRN #60 tab 08/04/22 Hydromorphone HCl [Dilaudid] 8 mg PO QID PRN #60 tab 08/04/22 - Past Medical/Surgical History Diabetic: No -: Sickle Cell Anemia -: Pulmonary Embolism -: blood clot left lung -: port-a-cath placement Psychosocial/ Personal History: Patient lives at home with her girlfriend - Family History Mother -: Other (see notes) Notes: sickle cell trait Father -: Other (see notes) Notes: sickle cell trait - Social History Smoking Status: Never smoker Alcohol use: No CD- Drugs: Yes Caffeine use: No Place of Residence: Home Review of Systems 10-point ROS is otherwise unremarkable General: Other (Severe generalized pain) Physical Examination - Physical Exam General: Alert, In no apparent distress, Oriented x3 HEENT: Atraumatic, PERRLA, Mucous membr. moist/pink, EOMI, Sclerae nonicteric Neck: Supple, 2+ carotid pulse no bruit, No LAD, Without JVD or thyroid abnormality Respiratory: Clear to auscultation bilaterally, Normal air movement Cardiovascular: Regular rate/rhythm, Normal S1 S2 Gastrointestinal: Normal bowel sounds, No tenderness Musculoskeletal: No tenderness Integumentary: No rashes Neurological: Normal gait, Normal speech, Normal strength at 5/5 x4 extr, Normal tone, Normal affect Lymphatics: No axilla or inguinal lymphadenopathy - Studies Laboratory Data (last 24 hrs) 09/23/22 20:30: PT 12.0, INR 1.09 09/23/22 20:30: WBC 21.60 H, Hgb 7.0 L, Hct 20.0 L, Plt Count 602 H 09/23/22 20:30: Sodium 137, Potassium 4.2, BUN 7, Creatinine 0.40 L, Glucose 84, Magnesium 2.0, Total Bilirubin 2.9 H, AST 41 H, ALT 51, Alkaline Phosphatase 97 Assessment and Plan - Plan Assessment: Sickle cell anemia, intractable pain History of PE Plan: Sickle cell anemia, intractable pain Continue IVF, supplemental oxygen, folic acid, as needed opiates for pain in addition to patient's home adjunctive medications including Lyrica, Robaxin. Chest x-ray shows mild cardiomegaly no signs of acute chest, patient denies chills, fevers, dysuria, abdominal pain, cough, shortness of breath or any new symptoms. History of PE Continue Eliquis. DVT PPX: Continue Eliquis Code status: Full Discharge Plan: Home Plan to discharge in: 72 Hours - Advance Directives Does patient have a Living Will: No Does patient have a Durable POA for Healthcare: No - Code Status/Comfort Care Code Status Assessed: Yes (Full code) Critical Care: No Time Spent Managing Pts Care (In Minutes): 55
[2022-09-23] MEDS ORDERED: ALPRAZOLAM 1 MG TABLET PO PRN (22:51)
[2022-09-23] MEDS ORDERED: methocarbamoL 500 MG TAB PO PRN (22:51)
[2022-09-23] MEDS: Ringers Lactate 1,000 ML IV SCH (23:31)
[2022-09-23 23:44] VITALS: BMI 26.5
[2022-09-24] MEDS: HYDROMORPHONE HCL 2 MG/ML inj IV PRN ×7 (01:17→20:55)
[2022-09-24] MEDS: DIPHENHYDRAMINE 50 MG/ML VIAL IV PRN ×6 (01:50→20:55)
[2022-09-24] MEDS: Ringers Lactate 1,000 ML IV SCH ×2 (04:35→18:06)
[2022-09-24 05:13] LABS: Absolute Lymphocytes (CBC) 7.3 K/uL (0.7-4.9); Hematocrit 19.2 % (36.0-45.0); MCV 100.1 fL (80-100); MPV 8.3 fL (7.6-11.3); RBC Red Blood Cell Count 1.92 M/uL (3.86-4.86)
[2022-09-24 05:24] LABS: Potassium 3.4 mEq/L (3.5-5.1)
--- NOTE | 2022-09-24 06:57 | P.PN ---
Date of Service: 09/24/22 Subjective: Feels about the same as yesterday Generalized pain all over no new / worsening problems mild cough afebrile, no chest pain ROS: 10 point ROS as noted above, otherwise negative Physical Exam: GEN: Alert, oriented, uncomfortable appearing HEENT: Normal conjunctiva, sclera anicteric CV: Regular rate and rhythm, no edema Pulm: Nonlabored respirations on room air, clear bilaterally ABD: Soft, nontender, nondistended Neuro: Normal speech, normal affect Left-sided chest port vitals reviewed Problem List: Sickle cell anemia, intractable pain / pain crisis History of PE Sickle cell anemia, intractable pain / pain crisis Continue IVF, supplemental oxygen, folic acid continue pain medication as needed in addition to patient's home adjunctive medications including Lyrica, Robaxin. CXR - shows mild cardiomegaly no signs of acute chest; clear bilaterally afebrile low threshold for antibiotics hgb 6.6 retic count up to 17 daily labs no hypoxia; vitals stable, no transfusion indicated at this time History of PE Continue Eliquis VTE: Eliquis Code: Full Dispo: Home ~3 days
[2022-09-24] MEDS: PREGABALIN 75 MG CAP PO SCH ×2 (08:07→20:54)
[2022-09-24] MEDS: FOLIC ACID 1 MG TABLET PO SCH (08:07)
[2022-09-24] MEDS: APIXABAN 2.5 MG TABLET PO SCH ×2 (08:07→20:54)
[2022-09-24] MEDS ORDERED: POTASSIUM CL SA 10 MEQ TAB PO ONE (09:00)
--- NOTE | 2022-09-24 11:43 | EKG ---
Test Date: 2022-09-23 Test Time: 19:47:35 Dental Internship: [place] MEASUREMENT RESULTS: Intervals: Rate: 74 [place]: 124 QRSD: 86 QT: 392 QTc: 435 [place]: P: 12 [place]: 124 QRS: 54 T: 54 INTERPRETIVE STATEMENTS: Normal sinus rhythm Normal ECG Compared to ECG 12/04/2021 16:50:21 No significant changes Electronically Signed On 09-24-22 11:41:30 CDT by Jeremie Pan
[2022-09-24 11:53] VITALS: O2SAT 96
[2022-09-24] MEDS: PROMETHAZINE INJ 25 MG/ML AMP IV PRN (15:05)
[2022-09-25] MEDS: DIPHENHYDRAMINE 50 MG/ML VIAL IV PRN ×4 (00:02→13:04)
[2022-09-25] MEDS: HYDROMORPHONE HCL 2 MG/ML inj IV PRN ×6 (00:03→15:49)
[2022-09-25] MEDS: PROMETHAZINE INJ 25 MG/ML AMP IV PRN ×5 (00:11→15:50)
[2022-09-25 03:41] LABS: Absolute Lymphocytes (CBC) 6.5 K/uL (0.7-4.9); Hematocrit 18.4 % (36.0-45.0); Lymphocytes % 33.8 % (15.3-44.8); MCV 97.5 fL (80-100); MPV 8.4 fL (7.6-11.3); RBC Red Blood Cell Count 1.88 M/uL (3.86-4.86)
[2022-09-25 03:56] LABS: Potassium 4.6 mEq/L (3.5-5.1)
[2022-09-25] MEDS: Ringers Lactate 1,000 ML IV SCH (05:20)
[2022-09-25] MEDS: PREGABALIN 75 MG CAP PO SCH (08:37)
[2022-09-25] MEDS: APIXABAN 2.5 MG TABLET PO SCH (08:38)
[2022-09-25] MEDS: FOLIC ACID 1 MG TABLET PO SCH (08:38)
--- NOTE | 2022-09-25 09:09 | P.DS ---
Admission Date: 09/23/22 Discharge Date: 09/25/22 Disposition: ROUTINE DISCHARGE Discharge Condition: FAIR Reason for Admission: Sickle cell anemia, intractable pain - Problems (1) Sickle cell pain crisis Status: Acute (2) Chronic anemia Status: Chronic (3) History of pulmonary embolism Status: Chronic (4) Leucocytosis Status: Chronic Qualifiers: Leukocytosis type: unspecified Qualified Code(s): D72.829 - Elevated white blood cell count, unspecified Brief History of Present Illness: 32-year-old female with history of anxiety, sickle cell anemia, history of PE presents emergency department for worsening generalized pain. She reports her pain has been increasing over the course of last 1 week, around 1500 today she began having severe pain that was unrelieved with her oral Dilaudid. At home she takes Dilaudid 8 mg p.o. 4 times daily in addition to other adjunctive medications. She denied any new or changing symptoms specifically no fever, chills, dysuria, cough, abdominal pain. She was evaluated in the emergency department her labs were significant for leukocytosis white blood cell count 20.6 hemoglobin 7.0 hematocrit 20.0 platelets 602 T. bili 2.9 T. bili 0.6 indirect bilirubin 2.3 lactic acid 0.5 sickle cells 1+ absolute reticulocyte 0.28. Patient was admitted for further management. Hospital Course: Patient admitted to the medical floor and treated with supportive measures including IV hydration, IV hydromorphone as needed for pain. CBC monitor showed slight drop in hemoglobin. Hemoglobin remained stable at 6.6, reticulocyte count stable, blood cultures did not yield any growth. Patient noted to be functional, sitting up in bed, no tachycardia or tachypnea, stable on room air. Her pain scale did not follow a consistent pattern. Patient takes Dilaudid 8 mg every 6 hours as needed at home. Patient was getting the IV Dilaudid [id number] and her pain scale decreases from 10/10 to 1/10 within 10 minutes of a dose of 2 mg IV hydromorphone highly suggestive of IV opioid aberrant use. Patient vitals are stable. She is discharged to continue her home medications including oral hydromorphone. Vital Signs/Physical Exam: Temp Pulse Resp BP Pulse Ox 98.5 F 89 18 101/54 L 90 L 09/25/22 08:00 09/25/22 08:00 09/25/22 08:00 09/25/22 08:00 09/25/22 08:00 General: Alert, In no apparent distress, Oriented x3 Neck: JVD not distended Respiratory: Clear to auscultation bilaterally, Normal air movement Cardiovascular: Regular rate/rhythm, Normal S1 S2 Gastrointestinal: Soft and benign, Non-distended Musculoskeletal: No swelling Integumentary: No cyanosis Neurological: Normal strength at 5/5 x4 extr Laboratory Data at Discharge: WBC 19.10 thou/uL (4.3-10.9) H 09/25/22 03:00 Hgb 6.6 g/dL (12.0-15.0) L 09/25/22 03:00 Hct 18.4 % (36.0-45.0) L 09/25/22 03:00 Plt Count 445 thou/uL (152-406) H 09/25/22 03:00 PT 12.0 SECONDS (9.5-12.5) 09/23/22 20:30 INR 1.09 09/23/22 20:30 Sodium 137 mEq/L (136-145) 09/25/22 03:00 Potassium 4.6 mEq/L (3.5-5.1) D 09/25/22 03:00 BUN 10 mg/dL (7-18) 09/25/22 03:00 Creatinine 0.51 mg/dL (0.55-1.02) L 09/25/22 03:00 Glucose 81 mg/dL (74-106) 09/25/22 03:00 Magnesium 2.0 mg/dL (1.6-2.4) 09/23/22 20:30 Total Bilirubin 2.9 mg/dL (0.2-1.0) H 09/23/22 20:30 AST 41 U/L (15-37) H 09/23/22 20:30 ALT 51 U/L (13-56) 09/23/22 20:30 Alkaline Phosphatase 97 U/L (45-117) 09/23/22 20:30 Home Medications: Folic Acid [Folic Acid*] 1 mg PO DAILY 08/01/12 Cholecalciferol (Vitamin D3) [Vitamin D 1000 Iu Tab*] 50,000 unit PO EVERY 7TH DAY 09/30/20 Apixaban [Eliquis *] 2.5 mg PO BID #60 tablet 12/21/20 Pregabalin [Lyrica*] 75 mg PO Q8H #90 cap 04/09/22 Promethazine Tab [Phenergan*] 25 mg PO Q6HP PRN #30 tab 04/09/22 methocarbamoL [Robaxin*] 1,000 mg PO Q8H #60 tab 04/09/22 ALPRAZolam [Xanax*] 1 mg PO BIDP PRN #60 tab 08/04/22 Hydromorphone [Dilaudid*] 8 mg PO Q6HP PRN #24 tab 09/25/22 New Medications: Hydromorphone [Dilaudid*] 8 mg PO Q6HP PRN #24 tab PRN Reason: Pain Diet: AHA Activity: Ad gina Followup: NONE,NONE [Primary Care Provider] - 1 Week Time spent managing pt's care (in minutes): 32
[2022-09-25 18:07] VITALS: BP 113/56; TEMP 98.1
== END 2022-09-25 17:23 | disposition home or self-care (01) | DRG 812 ==
LOC: ER 19:14 → ERHOLD 22:00 → 2ND 22:23
PROVIDERS: ADMIT Hospitalist; ATTEND Internal Medicine
DX: D57.00 Hb-SS disease with crisis, unspecified (principal); Z88.5 Allergy status to narcotic agent; Z88.1 Allergy status to other antibiotic agents; Z88.8 Allergy status to other drugs, medicaments and biological substances; Z79.01 Long term (current) use of anticoagulants; Z79.899 Other long term (current) drug therapy; Z86.711 Personal history of pulmonary embolism
CPT/HCPCS: 36415; 71045; 80048; 80076; 82550; 83605; 83735; 83880; 84484; 85025; 85044; 85610; 86850; 86900; 86901; 87040; 93005; 94760; 96361; 96374; 96375; 99285; J1170; J1200; J2550; J7030; J7120

== ENCOUNTER 2022-10-12 21:15 | Inpatient (IN) | payer OTHER ==
--- OUTSIDE RECORDS SUMMARY | 2022-10-12 21:28 | XMS REPORT | Continuity of Care Document ---
:1990 Author Organization [facility] t Address [address] [facility]. [place]. [address] [place] [address] Support Name Relationship Address Phone VARUN EL MO N [facility] [address] [place] [address] HIPOLITO MCBRIDE MO Unavailable [place] [address] [phone] [place] [address] DENAE CHEEMA Unavailable [phone] MARIA M KENDRICK Unavailable [phone] ESTHER MCBRIDE OT N [facility] [address] [place] [address] [place] [address] [address] [facility] [address] [place] [address] REHAN CHEEMA Unavailable [address] [facility] [phone] [place] [address] MARÍA ELENA EL Unavailable [address] [facility] [phone] [place] [address] NELDA EL Unavailable [address] [facility] [phone] [place] [address] MD AMY ALONZO JR Admitting Provider [address] [facility] JE[address] [place] [address] TRAY SIDDIQUI PA-C Primary Care Physician [address] [place] [address] VIJAYA MULLEN MD TOKS A Emergency Provider [address] [place] [address] ORIANA MCNAMARA MD Attending Provider [address] [place] [address] VARUN EL Next of Kin [address] [place] [address] IZZY MULLEN, CHAU Castellanos Emergency Provider [address] [facility] [address] [place] [address] PHYSICIAN, NO Primary Care Physician Unavailable UnavailMD AMARILIS Gutierrez MD Emergency Provider [address] [phone] [place] [address] OTHER, ENTER NAME IN Primary Care Physician Unavailable Unav ailable NOTES KIP MULLEN MD JENNIFER Emergency Provider [address] [place] [address] ISABELLA MULLEN MD [facility] Ad[facility] Provider [address] [phone] [place] [address] MORIS FRANCIS Primary Care Physician [address] [facility] [phone] [place] [address] MD SWETHA CROWE Ck Emergency Provider [facility] [place] [address] MD TYLER WRIGHT Emergency Provider Unavailable Unavailable MD SAMUEL KUMAR Emergency Provider [address] [place] [address] MD LESLY NEWTON Emergency Provider [address] [place] [address] Care Team Providers Name Role Phone FLEIX NASCIMENTO Primary Care Physician Unavailable KAIN RUFF [...] Number Effective Date Expiration Date S stacey [facility] [id number] 2015 2024 [employer] OON 00:00:00 00:00:00 EXCEPT [facility] STAR [id number] 2021 PLAN 00:00:00 Problems Condition Condition Condition Status Onset Resolution Last Treating Co mments Source Name Details Category Date Date Treatment Clinician Date Leukocytos Leukocytos Disease Active [facility] 00 [place] Pneumonia Pneumonia Disease Active [facility] Medical [place] 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 00:00: Medical [place] 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[facility] 2[facility]28 [facility] crisis crisis 00:00: Medical 00 [place] 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[facility] cell cell 2-28 [facility] crisis crisis 00:00: Medical 00 [place] Allergies, Adverse Reactions, Alerts Allergy Allergy Status Severity Reaction(s) Onset Inactive Treating Comm ents Source Name Type Date Date Clinician FENTANYL Allergy Active [facility] MORPHINE Allergy Active [facility] 00[facility] Medical 00 Center SULFA Allergy Active [facility] (SULFONA 8-18 [facility] MIDE 00:00: Medical ANTIBIOT 00 [place] ICS) Sulfa Propensi Active [facility] (Sulfona ty to 8-18 [facility] mide adverse 00:00: Medical Antibiot reaction 00 [place] ics) s Fentanyl Propensi Active Shortness Of [facility] ty to Breath 8-18 [facility] adverse 00:00: Medical reaction 00 [place] s Morphine Propensi Active Shortness Of [facility] ty to Breath 8-18 [facility] adverse 00:00: Medical reaction 00 Center s Sulfa Propensi Active [facility] (Sulfona ty to 8 [facility] mide adverse 00:00: Medical Antibiot reaction 00 Center ics) s ONDANSET Allergy Active Low N\T\V [facility] RISHABH HCL 2-28 (PF) 00:00: 00 Ondanset Drug Active Nausea And [facility] rishabh Hcl Intolera Vomiting 2- [facility] (Pf) nce 00:00: Medical Center morphine DA Active [facility] 3[facility]11 [place] 00:00: d 00 Medical Center TEGEDERM DA Active [place] [facility] DRESSING 8- [place] 00:00: d 00 Medical Center Family History Family Member Diagnosis Comments Start Date Stop Date Source Natural brother Unremarkable [facility] Natural father Seizures [facility] Natural father Sickle cell trait [facility] Natural mother Sickle cell trait [facility] Natural sister Unremarkable [facility] Social History Social Habit Start Date Stop Date Quantity Comments Source History [facility] Transport Non-Med Medical Center History [facility] Housing Places Medical Ce nter Lived History [facility] 2021-12-29 2021-12-[address] [facility] [facility] Transport Med 00:00:00 00:00:[address] History [facility] 2021-12-29 2021-12-[address] [facility] Housing Unable to 00:00:00 00:00:00 Medical Center Pay History [facility] 2021-12-29 2021-12-[address] [facility] Housing Homeless 00:00:00 00:00:00 Medical Center Last Year Alcohol intake 2021-12-28 2021-12-28 Current [facility] 00:00:00 00:00:00 non-drinker of Medical Ce nter alcohol (finding) Tobacco use and 2015-07-10 2015-07-[address] [facility] exposure 00:00:00 00:00:00 non-user Medical Center Sex Assigned At [address] Ariana kes 00:00:00 00:00:00 Medical Center Smoking Status Start Date Stop Date Source Never smoked tobacco [facility] Medications Ordered Filled Start Stop Current Ordering Indication Dosage Frequency Signature Comments Components Source Medication Medication Date Date Medication? Clinician (SIG) Name Name folic acid 2021-0 Yes folate 2mg QD Take [address] (FOLVITE) 1 8-24 deficiency by mouth [facility] MG tablet 15:59: daily. Medica l 55 Center penicillin 2-0 Yes 250mg Take [address] [...] 15:59: daily. Medica l 55 Center penicillin 2-0 Yes 250mg Take [address] [...] 15:59: mouth Medical 55 daily. Center promethazin 2-0 Yes prevention 25mg Take [address] e 8-24 of by mouth [facility]ukes (PHENERGAN) 15:59: post-operat every 6 Medical 25 MG 55 hima nausea (six) Center tablet and hours as vomiting needed for Nausea. HYDROmorpho 2022-0 Yes 8mg Take 8 mg [...] 55 every 12 Center tablet (twelve) hours. folic acid Yes folate 2mg QD Take [...] mouth once Medi rita 00 a week. [place] VITAMIN D2 Yes 1{capsu Q7D Take [address] [facility],000 unit 2-25 le} capsule by Ariana kes capsule 00:00: mouth once Medi rita 00 a week. [place] VITAMIN D2 2018- Yes 1{capsu Q7D Take [address] [facility],000 unit 2-25 le} capsule by Ariana kes capsule 00:00: mouth once Medi rita 00 a week. [place] VITAMIN D2 2018- Yes 1{capsu Q7D Take [address] [facility],000 unit 2-25 le} capsule by Ariana kes capsule 00:00: mouth once Medi rita 00 a week. [place] VITAMIN D2 2018-0 Yes 1{capsu Q7D Take [address] 50,000 unit 2-25 le} capsule by Ariana kes capsule 00:00: mouth once Medi rita 00 a week. [place] VITAMIN D2 2019-0 Yes 1{capsu Q7D Take [address] [facility],000 unit 2-25 le} capsule by Ariana kes capsule 00:00: mouth once Medi rita 00 a week. [place] VITAMIN D2 2019-0 Yes 1{capsu Q7D Take [address] [facility],000 unit 2-25 le} capsule by Ariana kes capsule 00:00: mouth once Medi rita 00 a week. [place] VITAMIN D2 2019-0 Yes 1{capsu Q7D Take [address] [facility],000 unit 2-25 le} capsule by Ariana kes capsule 00:00: mouth once Medi rita 00 a week. [place] VITAMIN D2 2019-0 Yes 1{capsu Q7D Take [address] [facility],000 unit 2-25 le} capsule by Ariana kes capsule 00:00: mouth once Medi rita 00 a week. [place] VITAMIN D2 2019-0 Yes 1{capsu Q7D Take [address] [facility],000 unit 2-25 le} capsule by Ariana kes capsule 00:00: mouth once Medi rita 00 a week. [place] VITAMIN D2 2019-0 Yes 1{capsu Q7D Take [address] 50,000 unit 2-25 le} capsule by Ariana kes capsule 00:00: mouth once Medi rita 00 a week. [place] VITAMIN D2 2019-0 Yes 1{capsu Q7D Take [address] [facility],000 unit 2-25 le} capsule by Ariana kes capsule 00:00: mouth once Medi rita 00 a week. [place] VITAMIN D2 2019-0 Yes 1{capsu Q7D Take [address] 50,000 unit 2-25 le} capsule by Ariana kes capsule 00:00: mouth once Medi rita 00 a week. [place] VITAMIN D2 2019-0 Yes 1{capsu Q7D Take [address] 50,000 unit 2-25 le} capsule by Ariana kes capsule 00:00: mouth once Medi rita 00 a week. [place] VITAMIN D2 2019-0 Yes 1{capsu Q7D Take [address] 50,000 unit 2-25 le} capsule by Ariana kes capsule 00:00: mouth once Medi rita 00 a week. [place] VITAMIN D2 2019-0 Yes 1{capsu Q7D Take [address] [facility],000 unit 2-25 le} capsule by Ariana kes capsule 00:00: mouth once Medi rita 00 a week. Center VITAMIN D2 2018- Yes 1{capsu Q7D Take [...] kg Systolic blood 2022-01-03 15:29:00 124 mm[Hg] [facility] Diastolic blood 2022-01-03 15:29:00 58 mm[Hg] [facility] Heart rate 2022-01-03 15:29:00 106 /min [facility] Body temperature 2022-01-03 15:29:00 36.11 [place] [facility] Respiratory rate 2022-01-03 15:29:00 20 /min [facility] Oxygen saturation in 2022-01-03 15:29:00 93 /min [facility] Arterial blood by Medical Ce nter Pulse oximetry Body weight 2022-01-03 05:27:00 72.485 kg [facility] BMI 2022-01-03 05:27:00 29.23 kg/m2 [facility] Body height 2021-12-28 22:08:00 157.5 cm [facility] Procedures Procedure Date / Time Performed Performing Clinician Sour e BLOOD CULTURE 2022-01-03 09:49:00 Bora, [facility] CBC W/PLT COUNT & AUTO 2022-01-03 03:49:00 Bora, [facility] BASIC METABOLIC PANEL 2022-01-03 03:49:00 Bora, [facility] CBC W/PLT COUNT & AUTO 2022-01-03 03:49:00 Bora, [facility] (CELLAVISION MANUAL 2022-01-03 03:49:00 Bora, [facility] DIFF) [facility] SARS-COV2/RT-PCR ([facility] & 2022-01-02 21:11:00 Rosio Pollack [facility] REF LABS) [facility] CBC W/PLT COUNT & AUTO 2022-01-02 03:16:00 Bora, [facility] BASIC METABOLIC PANEL 2022-01-02 03:16:00 Bora, [facility] CBC W/PLT COUNT & AUTO 2022-01-02 03:16:00 Bora, [facility] (CELLAVISION MANUAL 2022-01-02 03:16:00 Bora, [facility] DIFF) Medical [place] CBC W/PLT COUNT & AUTO 2021-12-31 09:48:00 Bora, [facility] BASIC METABOLIC PANEL 2021-12-31 09:48:00 Bora, [facility] CBC W/PLT COUNT & AUTO 2021-12-31 09:48:00 Bora, [facility] (CELLAVISION MANUAL 2021-12-31 09:48:00 [facility], [facility] BASIC METABOLIC PANEL 2021-12-30 02:41:00 Rosio Pollack CH I [facility] HEPATIC FUNCTION PANEL 2021-12-30 02:41:00 Rosio Pollack HI [facility] MAGNESIUM 2021-12-30 02:41:[address] [facility] CBC W/PLT COUNT & AUTO 2021-12-30 02:41:[address] [facility] DIFFERENTIAL [facility] CBC W/PLT COUNT & AUTO 2021-12-30 02:41:[address] [facility] DIFFERENTIAL [facility] (CELLAVISION MANUAL 2021-12-30 02:41:00 Pollack Rosio Bhakta [facility] DIFF) [facility] SARS-COV2/RT-PCR ([facility] & 2021-12-29 13:19:00 Ranjeet Rosio Reyesbekah [facility] REF LABS) [facility] 2D ECHO W/ DOPPLER 2021-12-29 10:56:17 [facility] ([facility]) [facility] ECG 12-LEAD 2021-12-29 04:52:19 PollackRosio [facility] ECG 12-LEAD 2021-12-29 04:52:19 Unknown, Hl7 [facility] ECG 12-LEAD 2021-12-29 04:52:19 Unknown, 7 [facility] ECG 12-LEAD 2021-12-29 04:50:49 Unknown, 7 [facility] ECG 12-LEAD 2021-12-29 04:50:49 Unknown, 7 [facility] BASIC METABOLIC PANEL 2021-12-29 04:50:00 Ranjeet Rosio Reyesen CH I [facility] HEPATIC FUNCTION PANEL 2021-12-29 04:50:00 Ranjeet Rosio Livia Kessler HI [facility] MAGNESIUM 2021-12-29 04:50:00 Ranjeet Rosio Bhakta [facility] CBC W/PLT COUNT & AUTO 2021-12-29 04:50:[address] [facility] DIFFERENTIAL [facility] CBC W/PLT COUNT & AUTO 2021-12-29 04:50:00 Ranjeet Rosio Reyesbekah Kessler [facility] DIFFERENTIAL [facility] (CELLAVISION MANUAL 2021-12-29 04:50:00 Rosio Pollack Livia [facility] DIFF) [facility] SCREEN, URINE 2021-12-29 01:52:00 Rosio Pollack [facility] BASIC METABOLIC PANEL 2021-12-28 23:44:00 Rosio Pollack CH I [facility] HEPATIC FUNCTION PANEL 2021-12-28 23:44:00 Rosio Pollack HI [facility] MAGNESIUM 2021-12-28 23:44:00 Rosio Pollack [facility] PHOSPHORUS 2021-12-28 23:44:00 Rosio Pollack [facility] TSH/FREE T4 IF INDICATED 2021-12-28 23:44:00 Rosio Pollack [facility] B-TYPE NATRIURETIC 2021-12-28 23:44:00 Rosio Pollack Livia [facility] FACTOR (BNP) [facility] CBC W/PLT COUNT & AUTO 2021-12-28 23:44:00 Rosio Pollack [facility] DIFFERENTIAL [facility] PROTHROMBIN TIME/INR 2021-12-28 23:44:00 Rosio Pollack [facility] TYPE AND SCREEN, 2021-12-28 23:44:00 Rosio Pollack [facility] AUTOMATED [facility] CBC W/PLT COUNT & AUTO 2021-12-28 23:44:00 Rosio Pollack [facility] DIFFERENTIAL [facility] (CELLAVISION MANUAL 2021-12-28 23:44:00 Rosio Pollack [facility] DIFF) [facility] XR CHEST 1 VIEW PORTABLE 2021-12-28 23:31:00 Rosio Pollack [facility] / BEDSIDE [facility] HEPATITIS B SURFACE 2021-09-26 05:00:00 [facility] HEPATITIS A ANTIBODY, 2021-09-26 05:00:00 [facility] HEPATITIS C ANTIBODY 2021-09-26 05:00:00 [facility] HEPATITIS B CORE 2021-09-26 05:00:[address] [facility] ANTIBODY, TOTAL [facility] HEPATITIS B SURFACE 2021-09-24 21:59:[address] [facility] ANTIGEN [facility] HEPATITIS B CORE 2021-09-24 21:59:[address] [facility] ANTIBODY, IGM [facility] HEPATITIS A ANTIBODY, 2021-09-24 21:59:00 JUDITH [facility] IGM [facility] HEPATITIS C ANTIBODY 2021-09-24 21:59:00 [facility] HEPATITIS PANEL, ACUTE 2021-09-24 21:59:00 [facility] Plan of Care Planned Activity Planned Date Details Comments Source Future Scheduled 2023-01-[address] [facility] Test 00:00:00 (Season Ended) [code = [facility] INFLUENZA VACCINE (Season Ended)] Future Scheduled 2023-01-[address] [facility] Test 00:00:00 (Season Ended) [code = [facility] INFLUENZA VACCINE (Season Ended)] Future Scheduled 2023-01-[address] [facility] Test 00:00:00 (Season Ended) [code = [facility] INFLUENZA VACCINE (Season Ended)] Future Scheduled 2022-12-28 [...] [facility] Test 00:00:00 (12+) [code = [facility] DEPRESSION SCREENING (12+)] Future Scheduled 2020-05-[address] [facility] Test 00:00:00 (12+) [code = [facility] DEPRESSION SCREENING (12+)] Future Scheduled 2020-01-12 [...] Medica l Center cervix (procedure) [code = 063289185] Future Scheduled 2012-09-[address] [facility] Test 00:00:00 malignant neoplasm of Medica l Center cervix (procedure) [code = 836493795] Future Scheduled 2012-09-[address] [facility] Test 00:00:00 malignant neoplasm of Medica l Center cervix (procedure) [code = 626745261] Future Scheduled 2012-09-[address] [facility] Test 00:00:00 malignant neoplasm of Medica l Center cervix (procedure) [code = 747834587] Future Scheduled 2012-09-[address] [facility] Test 00:00:00 malignant neoplasm of Medica l Center cervix (procedure) [code = 376262111] Future Scheduled 2012-09-[address] [facility] Test 00:00:00 malignant neoplasm of Medica l Center cervix (procedure) [code = 195978395] Future Scheduled 2012-09-[address] [facility] Test 00:00:00 malignant neoplasm of Medica l Center cervix (procedure) [code = 918804723] Future Scheduled 2012-09-[address] [facility] Test 00:00:00 malignant neoplasm of Medica l Center cervix (procedure) [code = 279608555] Future Scheduled 2012-09-[address] [facility] Test 00:00:00 malignant neoplasm of Medica l Center cervix (procedure) [code = 013751450] Future Scheduled 2012-09-[address] [facility] Test 00:00:00 malignant neoplasm of Medica l Center cervix (procedure) [code = 674080502] Future Scheduled 2012-09-[address] [facility] Test 00:00:00 malignant neoplasm of Medica l Center cervix (procedure) [code = 178731653] Future Scheduled 2012-09-[address] [facility] Test 00:00:00 malignant neoplasm of Medica l Center cervix (procedure) [code = 488544226] Future Scheduled 2012-09-[address] [facility] Test 00:00:00 malignant neoplasm of Medica l Center cervix (procedure) [code = 952516510] Future Scheduled 2012-09-[address] [facility] Test 00:00:00 malignant neoplasm of Medica l Center cervix (procedure) [code = 453056885] Future Scheduled 2012-09-[address] [facility] Test 00:00:00 malignant neoplasm of Medica l Center cervix (procedure) [code = 105776045] Future Scheduled 2012-09-[address] [facility] Test 00:00:00 malignant neoplasm of Medica l Center cervix (procedure) [code = 931080139] Future Scheduled 2012-09-[address] [facility] Test 00:00:00 malignant neoplasm of Medica l Center cervix (procedure) [code = 052792430] Future Scheduled [address] [facility] Test 00:00:00 (procedure) [code = [facility] 75819374] Future Scheduled [address] [facility] Test 00:00:00 (procedure) [code = [facility] 25794218] Future Scheduled [address] [facility] Test 00:00:00 (procedure) [code = [facility] 58569490] Future Scheduled [address] [facility] Test 00:00:00 (procedure) [code = [facility] 42728086] Future Scheduled [address] [facility] Test 00:00:00 (procedure) [code = [facility] 09535773] Future Scheduled 2010-09-05 DTAP/TDAP/TD VACCINES CH I [...] Lukes Test 00:00:00 [code = COVID-[address] VACCINE (#1)] Future Scheduled 1992-03-07 COVID-19 [...] Type Clinicians Facility Department ID 2022-03-14 Outpatient [facility] [id number] [place] 15:10:41 [id number] [facility] 2022-03-12 Emergency [facility] [id number] ALICIA - 22:24:00 [facility] ent 2022-06-17 2022-06-26 Inpatient E SPEEDY, FB MED [id number] [facility] 21:54:00 17:25:00 NADA 2022-05-16 2022-05-16 Emergency E DAVID, [facility] [id number] [facility] 01:31:00 13:37:00 ELLIE 2022-03-13 2022-03-19 Inpatient E VIDYA, [facility] MED [id number] [facility] 13:47:00 17:30:00 CLIFTON 2022-02-19 2022-03-06 Inpatient E HIWOT [facility] MED [id number] [facility] 07:38:00 17:27:00 MARCUS 2022-01-09 2022-01-09 Outpatient SATISH GRISSOM, [facility] [id number] [facility] 00:00:00 00:00:00 MAURICIO 2021-12-28 2022-01-03 [employer] [id number] 21:57:00 15:59:00 Encounter Meenu Rodriguezm, Kristina Medic [facility] 2021-12-28 2022-01-03 Inpatient UR [facility] Med 2 [id number] [facility] 21:57:00 15:59:00 2021-12-28 2022-01-03 [facility] [id number] 21:57:00 15:59:00 Encounter Meenu Rodriguez, Kristina Medic al [place] 2021-12-29 2021-12-29 Outpatient [facility] [id number] [facility] 00:00:00 23:59:00 [facility] 2021-12-29 2021-12-29 Orders [facility] [id number] 00:00:00 00:00:[address] [facility] 2021-12-29 2021-12-29 Orders [facility] [id number] 00:00:00 00:00:[address] [facility] 2021-09-26 2021-09-26 Lab [facility] [id number] 00:00:00 00:00:00 [facility] 2021-09-25 2021-09-25 Lab [facility] [id number] 00:00:00 00:00:00 [facility] 2021-06-05 2021-06-08 Inpatient E SAJJA, [facility] MED [id number] [facility] 04:10:00 13:24:00 AURORA 2021-06-03 2021-06-03 Emergency E SUNNY, MHBL [facility]BL [id number] [facility] 02:02:00 14:43:00 RAHEL 2021-04-04 2021-04-04 Emergency E JENNIFER SHAH MHBL [facility]BL [id number] [facility] 02:21:00 06:06:00 2021-02-26 2021-03-04 Inpatient E DULCEJEREMYORO, [facility] [id number] [facility] 15:00:00 16:50:00 AAMIR [...] MHBL 20:51:00 20:51:00 2019-01-05 2019-01-05 [facility] [id number] [facility] 06:56:00 06:56:00 2019-01-03 2019-01-03 Emergency [facility] [id number] [facility] 04:27:00 04:27:00 2018-07-20 2018-07-20 [id number] BL 10:30:00 10:30:00 Results Test Description Test Time Test Comments Results Result Comments Source BLOOD CULTURE 2022-01-08 13:00:55 Test Item Value Reference Range Interpretation Comme nts CULTURE (BEAKER) (test code = 1095) No growth in 5 days BLOOD [id number] 13:00:55 Test Item Value Reference Range Interpretation Comments CULTURE (BEAKER) (test No growth in 5 days code = 1095) CBC W/PLT COUNT & AUTO [id number] 07:10:44 Test Item Value Reference Range Interpretation [...] CONCENTRATION Increased (CELLAVISION)(BEAKER) (test code = 3438) Tribal Judge ID - emanuel Duke comments: Slide comments:BASIC [...] not appl icable for dialysis patien ts Tribal Judge ID - PIETER MSpecimen slightly ictericSARS-CoV2/RT-PCR (Asymptomatic ONLY)2022-01-03 01:56:54 Test Item Value Reference Range Interpretation Comments SARS-COV2/RT-PCR Negative Not Detected, (test code = Negative, See 16463-4) external report for linked test [facility]COV-2 [facility] (test code = 86901-6) R[facility] (test code = Negative result for [...] of the Act. Fact Sheet for Healthcare Providers:https://www.[employer]edInvest/sites/default/f reza/product/documents/F act_Sheet_HC_Providers_L bjd_STSJ-LqE-4.pdf Fact Sheet for Healthcare Patients:https://www.Savorfull/sites/default/fi les/product/documents/Fa ct_Sheet_Patients_Lyra_S ARS-CoV-2.pdf Performing Laboratory:[facility] [place] [address] [facility] (Asymptomatic ONLY)2022-01-03 01:56:54 Test Item Value Reference Range Interpretation Comments SARS-COV2/RT-PCR Negative Not Detected, (test code = Negative, See 94638-8) external report for linked test SARS-COV-2 [facility] JESUS PERFORMING LAB (test code = 01181-8) RUSLAN (test code = Negative result for [...] of the Act. Fact Sheet for Healthcare Providers:https://www.[employer]/sites/default/f reza/product/documents/F act_Sheet_HC_Providers_L opu_NMPT-WmV-6.pdf Fact Sheet for Healthcare Patients:https://www.Savorfull/sites/default/fi les/product/documents/Fa ct_Sheet_Patients_Lyra_S ARS-CoV-2.pdf Performing Laboratory:[facility] [place] [address] [facility]2022-01-03 01:56:54 Test Item Value Reference Range Interpretation Comments SARS-COV2/RT-PCR Negative Not Detected, (test code = Negative, See 80629-3) external report for linked test SARS-COV-2 [facility] PERFORM[facility] (test code = 62068-5) RUSLAN (test code = Negative result for [...] of the Act. Fact Sheet for Healthcare Providers:https://www.[employer]/sites/default/f reza/product/documents/F act_Sheet_HC_Providers_L qmh_NDNJ-WnX-7.pdf Fact Sheet for Healthcare Patients:https://www.Savorfull/sites/default/fi les/product/documents/Fa ct_Sheet_Patients_Lyra_S ARS-CoV-2.pdf Performing Laboratory:[facility]-CoV2/RT-PCR (Asymptomatic ONLY)2022-01-03 01:56:54 Test Item Value Reference Range Interpretation Comments SARS-COV2/RT-PCR Negative Not Detected, (test code = Negative, See 87896-1) external report for linked test SARS-COV-2 [facility] PERFORM[facility] LAB (test code = 90283-5) RUSLAN (test code = Negative result for [...] of the Act. Fact Sheet for Healthcare Providers:https://www.[employer]/sites/default/f reza/product/documents/F act_Sheet_HC_Providers_L emw_LICD-AcV-0.pdf Fact Sheet for Healthcare Patients:https://www.Savorfull/sites/default/fi les/product/documents/Fa ct_Sheet_Patients_Lyra_S ARS-CoV-2.pdf Performing Laboratory:[facility] [place] [address] [facility]omatic [facility]2022-01-03 01:56:54 Test Item Value Reference Range Interpretation Comments SARS-COV2/RT-PCR Negative Not Detected, (test code = Negative, See 90206-6) external report for linked test SARS-COV-2 [facility] PERFORM[facility] (test code = 83414-3) RUSLAN (test code = Negative result for [...] of the Act. Fact Sheet for Healthcare Providers:https://www.[employer]/sites/default/f reza/product/documents/F act_Sheet_HC_Providers_L vaz_MNBC-WiV-7.pdf Fact Sheet for Healthcare Patients:https://www.Savorfull/sites/default/fi les/product/documents/Fa ct_Sheet_Patients_Lyra_S ARS-CoV-2.pdf Performing Laboratory:[facility], [place] [address] [place], [place] [address]ARS-CoV2/RT-PCR (Asymptomatic ONLY)2022-01-03 01:56:54 Test Item Value Reference Range Interpretation Comments SARS-COV2/RT-PCR Negative Not Detected, (test code = Negative, See 63345-9) external report for linked test SARS-COV-2 [facility] PERFORM[facility] (test code = 17856-5) RUSLAN (test code = Negative result for [...] of the Act. Fact Sheet for Healthcare Providers:https://www.[employer]/sites/default/f reza/product/documents/F act_Sheet_HC_Providers_L suh_GTEQ-IzN-5.pdf Fact Sheet for Healthcare Patients:https://www.Savorfull/sites/default/fi les/product/documents/Fa ct_Sheet_Patients_Lyra_S ARS-CoV-2.pdf Performing Laboratory:[facility] [place], [place] [address] [place], [place] [address]ARS-CoV2/RT-PCR (Asymptomatic ONLY)2022-01-03 01:56:54 Test Item Value Reference Range Interpretation Comments SARS-COV2/RT-PCR Negative Not Detected, (test code = Negative, See 36930-5) external report for linked test SARS-COV-2 [facility] PERFORM[facility] (test code = 15962-1) RUSLAN (test code = Negative result for [...] of the Act. Fact Sheet for Healthcare Providers:https://www.[employer]/sites/default/f reza/product/documents/F act_Sheet_HC_Providers_L jeq_RPSL-VyV-2.pdf Fact Sheet for Healthcare Patients:https://www.Savorfull/sites/default/fi les/product/documents/Fa ct_Sheet_Patients_Lyra_S ARS-CoV-2.pdf Performing Laboratory:[facility] [place] [address] [facility]omatic [facility]2022-01-03 01:56:54 Test Item Value Reference Range Interpretation Comments SARS-COV2/RT-PCR Negative Not Detected, (test code = Negative, See 64009-1) external report for linked test SARS-COV-2 [facility] PER[facility] (test code = 46342-5) RUSLAN (test code = Negative result for [...] of the Act. Fact Sheet for Healthcare Providers:https://www.FRINGE COSMETICSl.Worlds/sites/default/f reza/product/documents/F act_Sheet_HC_Providers_L kaz_QUDP-LaW-0.pdf Fact Sheet for Healthcare Patients:https://www.[employer].Worlds/sites/default/fi les/product/documents/Fa ct_Sheet_Patients_Lyra_S ARS-CoV-2.pdf Performing Laboratory:[facility] [place] [address] [facility]As[facility]omatic ONLY)2022-01-03 01:56:54 Test Item Value Reference Range Interpretation Comments SARS-COV2/RT-PCR Negative Not Detected, (test code = Negative, See 60707-5) external report for linked test SARS-COV-2 [facility] PER[facility] (test code = 64716-3) RUSLAN (test code = Negative result for [...] of the Act. Fact Sheet for Healthcare Providers:https://www.BucketFeet idel.Worlds/sites/default/f reza/product/documents/F act_Sheet_HC_Providers_L urg_MVYM-SaK-8.pdf Fact Sheet for Healthcare Patients:https://www.jonathan del.com/sites/default/fi les/product/documents/Fa ct_Sheet_Patients_Lyra_S ARS-CoV-2.pdf Performing Laboratory:[facility], [place] [address] [place], [place] [address]ARS-CoV2/RT-PCR (Asymptomatic ONLY)2022-01-03 01:56:54 Test Item Value Reference Range Interpretation Comments SARS-COV2/RT-PCR Negative Not Detected, (test code = Negative, See 64188-8) external report for linked test SARS-COV-2 [facility] PERFORM[facility] (test code = 36700-4) RUSLAN (test code = Negative result for [...] of the Act. Fact Sheet for Healthcare Providers:https://www.BucketFeet ideAdKeeper.Worlds/sites/default/f reza/product/documents/F act_Sheet_HC_Providers_L eeh_MRGK-PoK-8.pdf Fact Sheet for Healthcare Patients:https://www.Brightpearl del.com/sites/default/fi les/product/documents/Fa ct_Sheet_Patients_Lyra_S ARS-CoV-2.pdf Performing Laboratory:[facility] [place] [address] [facility]As[facility]omatic ONLY)2022-01-03 01:56:54 Test Item Value Reference Range Interpretation Comments SARS-COV2/RT-PCR Negative Not Detected, (test code = Negative, See 14512-2) external report for linked test SARS-COV-2 [facility] PERFORM[facility] (test code = 21473-6) RUSLAN (test code = Negative result for [...] of the Act. Fact Sheet for Healthcare Providers:https://www.[employer].Worlds/sites/default/f reza/product/documents/F act_Sheet_HC_Providers_L akz_LMZM-BdT-2.pdf Fact Sheet for Healthcare Patients:https://www.[employer].com/sites/default/fi les/product/documents/Fa ct_Sheet_Patients_Jesus_S ARS-CoV-2.pdf Performing Laboratory:[facility] [place] [address] [facility] (Asymptomatic ONLY)2022-01-03 01:56:54 Test Item Value Reference Range Interpretation Comments SARS-COV2/RT-PCR Negative Not Detected, (test code = Negative, See 90321-7) external report for linked test SARS-COV-2 [facility] PER[facility] (test code = 32683-2) RUSLAN (test code = Negative result for [...] of the Act. Fact Sheet for Healthcare Providers:https://www.[employer]E COSMET[employer]Sl.Worlds/sites/default/f reza/product/documents/F act_Sheet_HC_Providers_L ndj_QXDR-KlV-4.pdf Fact Sheet for Healthcare Patients:https://www.Savorfull/sites/default/fi les/product/documents/Fa ct_Sheet_Patients_Lyra_S ARS-CoV-2.pdf Performing Laboratory:[facility] [place] [address] [facility])2022-01-03 01:56:54 Test Item Value Reference Range Interpretation Comments SARS-COV2/RT-PCR (test Negative Not Detected, Negative, code = 2340082) See external report for linked test SARS-COV-2 PERFORMING [facility] (test code = 0164634) Negative result for this test determines that [...] of the Act.Fact Sheet for Healthcare Prov iders:https://www.[employer]/sites/default/files/product/documents/Fact_Sheet_HC _Imomshkxd_Rrfv_BLUM-OpH-5.pdfFact Sheet for Healthcare Patients:https://www.[employer]/sites/default/files/product/docume nts/Imjo_Pxzuq_Jzgfyktv_Jnhv_PYDR-EhA-9.pdfPerforming Laboratory:[facility] [place] [address](CELLAVISION MANUAL DIFF) 2022-01-02 07:09:24 Test Item Value [...] CONCENTRATION Increased (CELLAVISION)(BEAKER) (test code = 3438) Tribal Judge ID - Martine OverholtUser comments: Slide comments:CBC W/PLT COUNT & AUTO [id number] 07:09:23 Test Item Value Reference Range Interpretation [...] (BEAKER) (test code = 413) BASIC METABOLIC [id number] 03:43:56 Test Item Value Reference Range Interpretation [...] not appl icable for dialysis patien ts Tribal Judge ID - PIAYA LSpecimen slightly icteric(CELLAVISION MANUAL [...] CONCENTRATION Increased (CELLAVISION)(BEAKER) (test code = 3438) Tribal Judge ID - [id number] ID - Martine OverholtUser comments: Slide comments:CBC W/PLT COUNT & AUTO [id number] 11:06:13 Test Item Value Reference Range Interpretation [...] (BEAKER) (test code = 413) BASIC METABOLIC [id number] 10:23:17 Test Item Value Reference Range Interpretation [...] not appl icable for dialysis patien ts Tribal Judge ID - MITCHCBC W/PLT COUNT & AUTO [id number] 03:54:02 Test Item Value Reference Range Interpretation [...] CONCENTRATION Increased (CELLAVISION)(BEAKER) (test code = 3438) Tribal Judge ID - Cornelius Santos comments: Slide comments:BASIC [...] not appl icable for dialysis patien ts Tribal Judge ID - PIETER [id number] 03:27:46 Test Item Value Reference Range Interpretation Comments MAGNESIUM (BEAKER) (test code = 1.5 mg/dL 1.6-2.6 L 627) Tribal Judge ID - PIETER MHEPATIC FUNCTION [id number] 03:27:46 Test Item Value Reference Range Interpretation [...] (test code = 50 U/L 6-55 347) Tribal Judge ID - PIETER MSARS-COV2/RT-PCR ([facility])2021-12-29 20:53:09 Test Item Value Reference Range Interpretation Comments SARS-COV2/RT-PCR (test Negative Not Detected, Negative, code = 8803530) See external report for linked test SARS-COV-2 PERFORMING LAB [facility] (test code = 0419999) Negative result for this test determines that [...] of the Act.Fact Sheet for Healthcare Prov iders:https://www.[employer]/sites/default/files/product/documents/Fact_Sheet_HC _Sdogzhcmj_Qcte_OZWI-RyG-0.pdfFact Sheet for Healthcare Patients:https://www.[employer]/sites/default/files/product/docume nts/Xrjc_Aoonj_Duvrdzpe_Pxvw_MOVI-UoQ-7.pdfPerforming Laboratory:[address], [place] [address]Gkkdolojncvij 2D echo w/ doppler (cw/pw/color)2021-12-29 15:36:58Ejection FractionSLEH ECHO [facility] (cw/pw/color)2021-12-29 15:36:58Ejection FractionSLEH ECHO [facility] w/ doppler (cw/pw/color) 2021-12-29 15:36:58Ejection FractionSLEH ECHO [facility] w/ doppler (cw/pw/color)2021-12-29 15:36:58Ejection FractionSLEH ECHO [facility] w/ doppler (cw/pw/color)2021-12-29 15:36:58Ejection FractionSLEH ECHO HEARTLAB [facility] Transthoracic 2D echo w/ doppler (cw/pw/color)2021-12-29 15:36:58Ejection FractionSLEH ECHO HEARTLAB [facility] Transthoracic 2D echo w/ doppler (cw/pw/color)2021-12-29 15:36:58Ejection FractionSLEH ECHO HEARTLAB [facility] Transthoracic 2D echo w/ doppler (cw/pw/color)2021-12-29 15:36:58Ejection FractionSLE ECHO [facility]ARTLAB [facility] Transthoracic 2D echo w/ doppler (cw/pw/color)2021-12-29 15:36:58Ejection FractionSLE ECHO [facility]ARTLAB [facility] Transthoracic 2D echo w/ doppler (cw/pw/color)2021-12-29 15:36:58[facility] Tran[facility] 2D echo w/ doppler (cw/pw/color)2021-12-29 15:36:58Ejection FractionSLE ECHO [facility]ARTLAB [facility] Transthoracic 2D echo w/ doppler (cw/pw/color)2021-12-29 15:36:58Ejection FractionSLE ECHO [facility] (CELLAVISION MANUAL DIFF)2021-12-29 07:16:35 Test Item [...] CONCENTRATION Increased (CELLAVISION)(BEAKER) (test code = 3438) Tribal Judge ID - emanuel Duke comments: Slide comments:CBC W/PLT COUNT & AUTO [id number] 07:16:31 Test Item Value Reference Range Interpretation [...] CONCENTRATION Increased (CELLAVISION)(BEAKER) (test code = 3438) Tribal Judge ID Deana yoderLavon comments: Slide comments:CBC W/PLT COUNT & AUTO [id number] 07:16:30 Test Item Value Reference Range Interpretation [...] 0-0 H (BEAKER) (test code = 413) [id number] 06:49:49 Test Item Value Reference Range Interpretation Comments MAGNESIUM (BEAKER) (test code = 1.4 mg/dL 1.6-2.6 L 627) Tribal Judge ID - PIETER MHEPATIC FUNCTION [id number] 06:49:49 Test Item Value Reference Range Interpretation [...] (test code = 43 U/L 6-55 347) Tribal Judge ID - PIETER MBASIC METABOLIC [id number] 06:49:48 Test Item Value Reference Range Interpretation [...] eGF R is based on the CKD-EPI 2021 equation that d oes not use a race coefficientEsti mated GFR is not as accur ate as Creatinine Joy shani in predicting glom erular filtration rate . Estimated GFR is not appl icable for dialysis patien ts Tribal Judge ID - PIETER MPregnancy Screen, [id number] 03:16:32 Test Item Value Reference Range Interpretation Comments Preg Test, Ur (test code = 2112-1) Negative Negative Lab Interpretation (test code = Normal 28845-4) [facility], [id number] 03:16:32 Test Item Value Reference Range Interpretation Comments Preg Test, Ur (test code = 2112-1) Negative Negative Lab Interpretation (test code = Normal 74274-3) [facility], [id number] 03:16:32 Test Item Value Reference Range Interpretation Comments Preg Test, Ur (test code = 2112-1) Negative Negative Lab Interpretation (test code = Normal 48223-3) [facility], [id number] 03:16:32 Test Item Value Reference Range Interpretation Comments Preg Test, Ur (test code = 2112-1) Negative Negative Lab Interpretation (test code = Normal 61812-2) [facility], [id number] 03:16:32 Test Item Value Reference Range Interpretation Comments Preg Test, Ur (test code = 2112-1) Negative Negative Lab Interpretation (test code = Normal 14523-4) [facility], [id number] 03:16:32 Test Item Value Reference Range Interpretation Comments Preg Test, Ur (test code = 2112-1) Negative Negative Lab Interpretation (test code = Normal 36344-7) [facility], [id number] 03:16:32 Test Item Value Reference Range Interpretation Comments Preg Test, Ur (test code = 2112-1) Negative Negative Lab Interpretation (test code = Normal 62919-5) [facility], [id number] 03:16:32 Test Item Value Reference Range Interpretation Comments Preg Test, Ur (test code = 2112-1) Negative Negative Lab Interpretation (test code = Normal 70037-5) [facility], [id number] 03:16:32 Test Item Value Reference Range Interpretation Comments Preg Test, Ur (test code = 2112-1) Negative Negative Lab Interpretation (test code = Normal 43134-9) [facility], [id number] 03:16:32 Test Item Value Reference Range Interpretation Comments Preg Test, Ur (test code = 2112-1) Negative Negative Lab Interpretation (test code = Normal 55013-2) [facility], [id number] 03:16:32 Test Item Value Reference Range Interpretation Comments Preg Test, Ur (test code = 2112-1) Negative Negative Lab Interpretation (test code = Normal 48498-6) [facility], [id number] 03:16:32 Test Item Value Reference Range Interpretation Comments Preg Test, Ur (test code = 2112-1) Negative Negative Lab Interpretation (test code = Normal 72413-6) [facility] CenterPREGNANCY SCREEN, [id number] 03:16:32 Test Item Value Reference Range Interpretation Comments TEST URINE (BEAKER) (test Negative Negative code = 583) TSH/FREE T4 IF [id number] 00:37:03 Test Item Value Reference Range Interpretation Comments THYROID STIMULATING HORMONE 1.144 uIU/mL 0.350-4.940 (BEAKER) (test code = 772) Tribal Judge ID - PIERO [id number] 00:23:22 Test Item Value Reference Range Interpretation Comments PHOSPHORUS (BEAKER) (test code = 3.6 mg/dL 2.3-4.7 604) Tribal Judge ID - PIERO LHEPATIC FUNCTION [id number] 00:23:22 Test Item Value Reference Range Interpretation [...] (test code = 45 U/L 6-55 347) Tribal Judge ID - PIERO LBASIC METABOLIC [id number] 00:23:21 Test Item Value Reference Range Interpretation [...] not appl icable for dialysis patien ts Tribal Judge ID - PIERO [id number] 00:23:21 Test Item Value Reference Range Interpretation Comments MAGNESIUM (BEAKER) (test code = 1.7 mg/dL 1.6-2.6 627) Tribal Judge ID - PIERO LB-TYPE NATRIURETIC FACTOR (BNP)2021-12-29 00:22:19 Test Item Value Reference Range Interpretation Comments B-TYPE NATRIURETIC PEPTIDE (BEAKER) 12 pg/mL 0-100 (test code = 700) Tribal Judge ID - PIERO LPROTHROMBIN TIME/[id number] 00:13:42 Test Item Value Reference Range Interpretation Comments PROTIME (BEAKER) 14.2 seconds 11.9-14.2 (test code = 759) INR (BEAKER) (test 1.13 See_Comment [Automat ed message] code = 370) The system [employer] generated this result transmitted ref erence range: <=5.90. The reference range was not used to int erpret this result as normal/abnormal . RECOMMENDED COUMADIN/WARFARIN INR THERAPY RANGESSTANDARD DOSE: 2.0 - 3.0 Includes: PROPHYLAXIS for venous thrombosis, systemic embolization; TREATMENT for venous thrombosis and/or pulmonary embolus.HIGH RISK: Target INR is 2.5-3.5 for patients with mechanical heart valves.RAD, CHEST, 1 VIEW, NON [id number] 23:56:00Reason for exam:->dyspnea; sickle cell crisisIs the patient ?->UnknownShould this be performed at the bedside?->Yes [facility] 1990 Sex: [...] Date/Time: 12/28/2021 23:56:16 Hepatitis B core antibody, [id number] 11:45:17 Test Item Value Reference Range Interpretation Comments Hep B Core Total Ab (test Nonreactive Nonreactive code = 84657-6) RUSLAN (test code = RUSLAN) Tribal Judge ID - DB Lab Interpretation (test Normal code = 76178-3) [facility] [id number] 11:45:17 Test Item Value Reference Range Interpretation Comments Hep A IgM (test code = Nonreactive Nonreactive 80423-5) RUSLAN (test code = RUSLAN) Tribal Judge ID - DB Lab Interpretation (test Normal code = 73161-4) [facility] C [id number] 11:45:17 Test Item Value Reference Range Interpretation Comments Hepatitis C Ab (test code = Nonreactive Nonreactive 21128-4) RUSLAN (test code = RUSLAN) Tribal Judge ID - DB Lab Interpretation (test Normal code = 83589-4) [facility] B core antibody, [id number] 11:45:17 Test Item Value Reference Range Interpretation Comments Hep B Core Total Ab (test Nonreactive Nonreactive code = 64973-9) RUSLAN (test code = RUSLAN) Tribal Judge ID - DB Lab Interpretation (test Normal code = 77740-1) [facility], [id number] 11:45:17 Test Item Value Reference Range Interpretation Comments Hep A IgM (test code = Nonreactive Nonreactive 16203-8) RUSLAN (test code = RUSLAN) Tribal Judge ID - DB Lab Interpretation (test Normal code = 25976-4) [facility] C [id number] 11:45:17 Test Item Value Reference Range Interpretation Comments Hepatitis C Ab (test code = Nonreactive Nonreactive 28618-6) RUSLAN (test code = RUSLAN) Tribal Judge ID - DB Lab Interpretation (test Normal code = 82718-6) [facility] B core antibody, [id number] 11:45:17 Test Item Value Reference Range Interpretation Comments Hep B Core Total Ab (test Nonreactive Nonreactive code = 74619-8) RUSLAN (test code = RUSLAN) Tribal Judge ID - DB Lab Interpretation (test Normal code = 09078-8) [facility], [id number] 11:45:17 Test Item Value Reference Range Interpretation Comments Hep A IgM (test code = Nonreactive Nonreactive 91706-7) RUSLAN (test code = RUSLAN) Tribal Judge ID - DB Lab Interpretation (test Normal code = 21622-3) [facility] C [id number] 11:45:17 Test Item Value Reference Range Interpretation Comments Hepatitis C Ab (test code = Nonreactive Nonreactive 82188-2) RUSLAN (test code = RUSLAN) Tribal Judge ID - DB Lab Interpretation (test Normal code = 06150-1) [facility] B core antibody, [id number] 11:45:17 Test Item Value Reference Range Interpretation Comments Hep B Core Total Ab (test Nonreactive Nonreactive code = 32053-7) RUSLAN (test code = RUSLAN) Tribal Judge ID - DB Lab Interpretation (test Normal code = 25430-9) [facility] A antibody, [id number] 11:45:17 Test Item Value Reference Range Interpretation Comments Hep A IgM (test code = Nonreactive Nonreactive 89413-2) RUSLAN (test code = RUSLAN) Tribal Judge ID - DB Lab Interpretation (test Normal code = 13818-8) [facility] [id number] 11:45:17 Test Item Value Reference Range Interpretation Comments Hepatitis C Ab (test code = Nonreactive Nonreactive 60137-8) RUSLAN (test code = RUSLAN) Tribal Judge ID - DB Lab Interpretation (test Normal code = 41739-6) [facility] B core antibody, [id number] 11:45:17 Test Item Value Reference Range Interpretation Comments Hep B Core Total Ab (test Nonreactive Nonreactive code = 25492-2) RUSLAN (test code = RUSLAN) Tribal Judge ID - DB Lab Interpretation (test Normal code = 71384-4) [facility], [id number] 11:45:17 Test Item Value Reference Range Interpretation Comments Hep A IgM (test code = Nonreactive Nonreactive 76194-9) RUSLAN (test code = RUSLAN) Tribal Judge ID - DB Lab Interpretation (test Normal code = 04336-5) [facility] C [id number] 11:45:17 Test Item Value Reference Range Interpretation Comments Hepatitis C Ab (test code = Nonreactive Nonreactive 31204-7) RUSLAN (test code = RUSLAN) Tribal Judge ID - DB Lab Interpretation (test Normal code = 81066-3) [facility] B core antibody, [id number] 11:45:17 Test Item Value Reference Range Interpretation Comments Hep B Core Total Ab (test Nonreactive Nonreactive code = 25350-0) RUSLAN (test code = RUSLAN) Tribal Judge ID - DB Lab Interpretation (test Normal code = 43806-0) [facility] A antibody, [id number] 11:45:17 Test Item Value Reference Range Interpretation Comments Hep A IgM (test code = Nonreactive Nonreactive 29842-6) RUSLAN (test code = RUSLAN) Tribal Judge ID - DB Lab Interpretation (test Normal code = 79462-5) [facility] C [id number] 11:45:17 Test Item Value Reference Range Interpretation Comments Hepatitis C Ab (test code = Nonreactive Nonreactive 75509-3) RUSLAN (test code = RUSLAN) Tribal Judge ID - DB Lab Interpretation (test Normal code = 93757-5) [facility] B core antibody, [id number] 11:45:17 Test Item Value Reference Range Interpretation Comments Hep B Core Total Ab (test Nonreactive Nonreactive code = 43111-1) RUSLAN (test code = RUSLAN) Tribal Judge ID - DB Lab Interpretation (test Normal code = 92377-6) [facility], [id number] 11:45:17 Test Item Value Reference Range Interpretation Comments Hep A IgM (test code = Nonreactive Nonreactive 92044-9) RUSLAN (test code = RUSLAN) Tribal Judge ID - DB Lab Interpretation (test Normal code = 50558-1) [facility] C [id number] 11:45:17 Test Item Value Reference Range Interpretation Comments Hepatitis C Ab (test code = Nonreactive Nonreactive 19956-9) RUSLAN (test code = RUSLAN) Tribal Judge ID - DB Lab Interpretation (test Normal code = 37792-4) [facility] B core antibody, [id number] 11:45:17 Test Item Value Reference Range Interpretation Comments Hep B Core Total Ab (test Nonreactive Nonreactive code = 47609-9) RUSLAN (test code = RUSLAN) Tribal Judge ID - DB Lab Interpretation (test Normal code = 72035-3) [facility] [id number] 11:45:17 Test Item Value Reference Range Interpretation Comments Hep A IgM (test code = Nonreactive Nonreactive 62356-0) RUSLAN (test code = RUSALN) Tribal Judge ID - DB Lab Interpretation (test Normal code = 50276-2) [facility] C [id number] 11:45:17 Test Item Value Reference Range Interpretation Comments Hepatitis C Ab (test code = Nonreactive Nonreactive 60321-7) RUSLAN (test code = RUSLAN) Tribal Judge ID - DB Lab Interpretation (test Normal code = 60144-3) [facility] B core antibody, [id number] 11:45:17 Test Item Value Reference Range Interpretation Comments Hep B Core Total Ab (test Nonreactive Nonreactive code = 76031-2) RUSLAN (test code = RUSLAN) Tribal Judge ID - DB Lab Interpretation (test Normal code = 35284-9) [facility], [id number] 11:45:17 Test Item Value Reference Range Interpretation Comments Hep A IgM (test code = Nonreactive Nonreactive 99474-2) RUSLAN (test code = RUSLAN) Tribal Judge ID - DB Lab Interpretation (test Normal code = 89889-9) [facility] C [id number] 11:45:17 Test Item Value Reference Range Interpretation Comments Hepatitis C Ab (test code = Nonreactive Nonreactive 66944-2) RUSLAN (test code = RUSLAN) Tribal Judge ID - DB Lab Interpretation (test Normal code = 95304-5) [facility], [id number] 11:45:17 Test Item Value Reference Range Interpretation Comments Hep B Core Total Ab (test Nonreactive Nonreactive code = 80713-8) RUSLAN (test code = RUSLAN) Tribal Judge ID - DB Lab Interpretation (test Normal code = 57429-7) [facility], [id number] 11:45:17 Test Item Value Reference Range Interpretation Comments Hep A IgM (test code = Nonreactive Nonreactive 24123-5) RUSLAN (test code = RUSLAN) Tribal Judge ID - DB Lab Interpretation (test Normal code = 89803-7) [facility] C [id number] 11:45:17 Test Item Value Reference Range Interpretation Comments Hepatitis C Ab (test code = Nonreactive Nonreactive 65868-2) RUSLAN (test code = RUSLAN) Tribal Judge ID - DB Lab Interpretation (test Normal code = 93646-0) [facility], [id number] 11:45:17 Test Item Value Reference Range Interpretation Comments Hep B Core Total Ab (test Nonreactive Nonreactive code = 41442-1) RUSLAN (test code = RUSLAN) Tribal Judge ID - DB Lab Interpretation (test Normal code = 23852-9) [facility], [id number] 11:45:17 Test Item Value Reference Range Interpretation Comments Hep A IgM (test code = Nonreactive Nonreactive 09981-6) RUSLAN (test code = RUSLAN) Tribal Judge ID - DB Lab Interpretation (test Normal code = 13627-9) [facility] C [id number] 11:45:17 Test Item Value Reference Range Interpretation Comments Hepatitis C Ab (test code = Nonreactive Nonreactive 88098-5) RUSLAN (test code = RUSLAN) Tribal Judge ID - DB Lab Interpretation (test Normal code = 96441-6) [facility] C [id number] 11:45:17 Test Item Value Reference Range Interpretation Comments HEPATITIS C ANTIBODY (BEAKER) Nonreactive Nonreactive (test code = 367) Tribal Judge ID - DBHEPATITIS A ANTIBODY, [id number] 11:45:17 Test Item Value Reference Range Interpretation Comments HEPATITIS A IGM ANTIBODY (BEAKER) Nonreactive Nonreactive (test code = 498) [facility]al Judge ID [facility] CORE [facility]TIBODY, [id number] 11:45:17 Test Item Value Reference Range Interpretation Comments HEPATITIS B CORE TOTAL ANTIBODY Nonreactive Nonreactive (BEAKER) (test code = 497) [facility] surface [id number] 11:45:12 Test Item Value Reference Range Interpretation Comments Hepatitis B surface Nonreactive Nonreactive antigen (test code = 5195-3) RUSLAN (test code = RUSLAN) Specimen is considered negative for HBsAg. Lab Interpretation (test Normal code = 24455-1) [facility] B surface [id number] 11:45:12 Test Item Value Reference Range Interpretation Comments Hepatitis B surface Nonreactive Nonreactive antigen (test code = 5195-3) RUSLAN (test code = RUSLAN) Specimen is considered negative for HBsAg. Lab Interpretation (test Normal code = 22616-5) [facility] B surface [id number] 11:45:12 Test Item Value Reference Range Interpretation Comments Hepatitis B surface Nonreactive Nonreactive antigen (test code = 5195-3) RUSLAN (test code = RUSLAN) Specimen is considered negative for HBsAg. Lab Interpretation (test Normal code = 01929-2) [facility] [id number] 11:45:12 Test Item Value Reference Range Interpretation Comments Hepatitis B surface Nonreactive Nonreactive antigen (test code = 5195-3) RUSLAN (test code = RUSLAN) Specimen is considered negative for HBsAg. Lab Interpretation (test Normal code = 63174-9) [facility] B surface [id number] 11:45:12 Test Item Value Reference Range Interpretation Comments Hepatitis B surface Nonreactive Nonreactive antigen (test code = 5195-3) RUSLAN (test code = RUSLAN) Specimen is considered negative for HBsAg. Lab Interpretation (test Normal code = 63439-8) [facility] B surface [id number] 11:45:12 Test Item Value Reference Range Interpretation Comments Hepatitis B surface Nonreactive Nonreactive antigen (test code = 5195-3) RUSLAN (test code = RUSLAN) Specimen is considered negative for HBsAg. Lab Interpretation (test Normal code = 10371-7) [facility] B surface [id number] 11:45:12 Test Item Value Reference Range Interpretation Comments Hepatitis B surface Nonreactive Nonreactive antigen (test code = 5195-3) RUSLAN (test code = RUSLAN) Specimen is considered negative for HBsAg. Lab Interpretation (test Normal code = 70448-8) [facility] [id number] 11:45:12 Test Item Value Reference Range Interpretation Comments Hepatitis B surface Nonreactive Nonreactive antigen (test code = 5195-3) RUSLAN (test code = RUSLAN) Specimen is considered negative for HBsAg. Lab Interpretation (test Normal code = 24794-0) [facility] B surface [id number] 11:45:12 Test Item Value Reference Range Interpretation Comments Hepatitis B surface Nonreactive Nonreactive antigen (test code = 5195-3) RUSLAN (test code = RUSLAN) Specimen is considered negative for HBsAg. Lab Interpretation (test Normal code = 46601-4) [facility] B surface [id number] 11:45:12 Test Item Value Reference Range Interpretation Comments Hepatitis B surface Nonreactive Nonreactive antigen (test code = 5195-3) RUSLAN (test code = RUSLAN) Specimen is considered negative for HBsAg. Lab Interpretation (test Normal code = 90833-9) [facility] B surface [id number] 11:45:12 Test Item Value Reference Range Interpretation Comments Hepatitis B surface Nonreactive Nonreactive antigen (test code = 5195-3) RUSLAN (test code = RUSLAN) Specimen is considered negative for HBsAg. Lab Interpretation (test Normal code = 63924-4) [facility] B SURFACE [id number] 11:45:12 Test Item Value Reference Range Interpretation Comments HEPATITIS B SURFACE ANTIGEN (2) Nonreactive Nonreactive (BEAKER) (test code = 2585) Specimen is considered negative for HBsAg.Hepatitis B core antibody, IgM 2021-09-25 19:51:14 Test Item Value Reference Range Interpretation Comments Hep B C IgM (test code = 93006-1) Nonreactive Nonreactive Lab Interpretation (test code = Normal 92806-8) [facility] panel, [id number] 19:51:14 Test Item Value Reference Range Interpretation Comments Hep A IgM (test code = Nonreactive Nonreactive 28520-9) Hep B C IgM (test code = Nonreactive Nonreactive 95951-5) Hepatitis C Ab (test code = Nonreactive Nonreactive 41689-6) Hepatitis B surface antigen Nonreactive Nonreactive (test code = 5195-3) RUSLAN (test code = RUSLAN) Tribal Judge ID - DB Lab Interpretation (test Normal code = 54704-5) [facility] B core antibody, [id number] 19:51:14 Test Item Value Reference Range Interpretation Comments Hep B C IgM (test code = 90222-4) Nonreactive Nonreactive Lab Interpretation (test code = Normal 85156-5) [facility], [id number] 19:51:14 Test Item Value Reference Range Interpretation Comments Hep A IgM (test code = Nonreactive Nonreactive 53488-7) Hep B C IgM (test code = Nonreactive Nonreactive 90596-3) Hepatitis C Ab (test code = Nonreactive Nonreactive 42782-9) Hepatitis B surface antigen Nonreactive Nonreactive (test code = 5195-3) RUSLAN (test code = RUSLAN) Tribal Judge ID - DB Lab Interpretation (test Normal code = 02474-4) [facility], [id number] 19:51:14 Test Item Value Reference Range Interpretation Comments Hep B C IgM (test code = 55792-7) Nonreactive Nonreactive Lab Interpretation (test code = Normal 19239-4) [facility] panel, [id number] 19:51:14 Test Item Value Reference Range Interpretation Comments Hep A IgM (test code = Nonreactive Nonreactive 06804-5) Hep B C IgM (test code = Nonreactive Nonreactive 37237-1) Hepatitis C Ab (test code = Nonreactive Nonreactive 11170-6) Hepatitis B surface antigen Nonreactive Nonreactive (test code = 5195-3) RUSLAN (test code = RUSLAN) Tribal Judge ID - DB Lab Interpretation (test Normal code = 56793-1) [facility], [id number] 19:51:14 Test Item Value Reference Range Interpretation Comments Hep B C IgM (test code = 55406-1) Nonreactive Nonreactive Lab Interpretation (test code = Normal 23692-1) [facility], [id number] 19:51:14 Test Item Value Reference Range Interpretation Comments Hep A IgM (test code = Nonreactive Nonreactive 00560-2) Hep B C IgM (test code = Nonreactive Nonreactive 09698-4) Hepatitis C Ab (test code = Nonreactive Nonreactive 06227-5) Hepatitis B surface antigen Nonreactive Nonreactive (test code = 5195-3) RUSLAN (test code = RUSLAN) Tribal Judge ID - DB Lab Interpretation (test Normal code = 70300-9) [facility] B core antibody, [id number] 19:51:14 Test Item Value Reference Range Interpretation Comments Hep B C IgM (test code = 48835-6) Nonreactive Nonreactive Lab Interpretation (test code = Normal 86406-0) [facility] panel, [id number] 19:51:14 Test Item Value Reference Range Interpretation Comments Hep A IgM (test code = Nonreactive Nonreactive 03902-6) Hep B C IgM (test code = Nonreactive Nonreactive 89079-7) Hepatitis C Ab (test code = Nonreactive Nonreactive 07116-2) Hepatitis B surface antigen Nonreactive Nonreactive (test code = 5195-3) RUSLAN (test code = RUSLAN) Tribal Judge ID - DB Lab Interpretation (test Normal code = 06059-1) [facility] B core antibody, [id number] 19:51:14 Test Item Value Reference Range Interpretation Comments Hep B C IgM (test code = 34626-7) Nonreactive Nonreactive Lab Interpretation (test code = Normal 39580-0) [facility] panel, [id number] 19:51:14 Test Item Value Reference Range Interpretation Comments Hep A IgM (test code = Nonreactive Nonreactive 57750-6) Hep B C IgM (test code = Nonreactive Nonreactive 38765-2) Hepatitis C Ab (test code = Nonreactive Nonreactive 28201-2) Hepatitis B surface antigen Nonreactive Nonreactive (test code = 5195-3) RUSLAN (test code = RUSLAN) Tribal Judge ID - DB Lab Interpretation (test Normal code = 97328-5) [facility], [id number] 19:51:14 Test Item Value Reference Range Interpretation Comments Hep B C IgM (test code = 96331-1) Nonreactive Nonreactive Lab Interpretation (test code = Normal 94828-7) [facility] panel, [id number] 19:51:14 Test Item Value Reference Range Interpretation Comments Hep A IgM (test code = Nonreactive Nonreactive 71443-1) Hep B C IgM (test code = Nonreactive Nonreactive 36384-5) Hepatitis C Ab (test code = Nonreactive Nonreactive 76954-9) Hepatitis B surface antigen Nonreactive Nonreactive (test code = 5195-3) RUSLAN (test code = RUSLAN) Tribal Judge ID - DB Lab Interpretation (test Normal code = 52056-7) [facility], [id number] 19:51:14 Test Item Value Reference Range Interpretation Comments Hep B C IgM (test code = 58083-8) Nonreactive Nonreactive Lab Interpretation (test code = Normal 96856-7) [facility], [id number] 19:51:14 Test Item Value Reference Range Interpretation Comments Hep A IgM (test code = Nonreactive Nonreactive 12897-0) Hep B C IgM (test code = Nonreactive Nonreactive 29848-1) Hepatitis C Ab (test code = Nonreactive Nonreactive 52678-0) Hepatitis B surface antigen Nonreactive Nonreactive (test code = 5195-3) RUSLAN (test code = RUSLAN) Tribal Judge ID - DB Lab Interpretation (test Normal code = 11762-8) [facility] B core antibody, [id number] 19:51:14 Test Item Value Reference Range Interpretation Comments Hep B C IgM (test code = 81681-3) Nonreactive Nonreactive Lab Interpretation (test code = Normal 81310-2) [facility] panel, [id number] 19:51:14 Test Item Value Reference Range Interpretation Comments Hep A IgM (test code = Nonreactive Nonreactive 50089-8) Hep B C IgM (test code = Nonreactive Nonreactive 63868-5) Hepatitis C Ab (test code = Nonreactive Nonreactive 29207-4) Hepatitis B surface antigen Nonreactive Nonreactive (test code = 5195-3) RUSLAN (test code = RUSLAN) Tribal Judge ID - DB Lab Interpretation (test Normal code = 08587-4) [facility], [id number] 19:51:14 Test Item Value Reference Range Interpretation Comments Hep B C IgM (test code = 73356-0) Nonreactive Nonreactive Lab Interpretation (test code = Normal 20817-8) [facility], [id number] 19:51:14 Test Item Value Reference Range Interpretation Comments Hep A IgM (test code = Nonreactive Nonreactive 55701-1) Hep B C IgM (test code = Nonreactive Nonreactive 06045-3) Hepatitis C Ab (test code = Nonreactive Nonreactive 47710-9) Hepatitis B surface antigen Nonreactive Nonreactive (test code = 5195-3) RUSLAN (test code = RUSLAN) Tribal Judge ID - DB Lab Interpretation (test Normal code = 48609-8) [facility], [id number] 19:51:14 Test Item Value Reference Range Interpretation Comments Hep B C IgM (test code = 22286-8) Nonreactive Nonreactive Lab Interpretation (test code = Normal 98683-4) [facility], [id number] 19:51:14 Test Item Value Reference Range Interpretation Comments Hep A IgM (test code = Nonreactive Nonreactive 01102-1) Hep B C IgM (test code = Nonreactive Nonreactive 43715-5) Hepatitis C Ab (test code = Nonreactive Nonreactive 40801-8) Hepatitis B surface antigen Nonreactive Nonreactive (test code = 5195-3) RUSLAN (test code = RUSLAN) Tribal Judge ID - DB Lab Interpretation (test Normal code = 95416-1) [facility], [id number] 19:51:14 Test Item Value Reference Range Interpretation Comments HEPATITIS A IGM ANTIBODY (BEAKER) Nonreactive Nonreactive (test code = 498) HEPATITIS B CORE IGM ANTIBODY Nonreactive Nonreactive (BEAKER) (test code = 645) HEPATITIS C ANTIBODY (BEAKER) Nonreactive Nonreactive (test code = 367) HEPATITIS B SURFACE ANTIGEN (2) Nonreactive Nonreactive (BEAKER) (test code = 2585) Tribal Judge ID - DBHEPATITIS A ANTIBODY, [id number] 19:51:14 Test Item Value Reference Range Interpretation Comments HEPATITIS A IGM ANTIBODY (BEAKER) Nonreactive Nonreactive (test code = 498) HEPATITIS B CORE ANTIBODY, [id number] 19:51:14 Test Item Value Reference Range Interpretation Comments HEPATITIS B CORE IGM ANTIBODY Nonreactive Nonreactive (BEAKER) (test code = 645) HEPATITIS B SURFACE [id number] 19:51:14 Test Item Value Reference Range Interpretation Comments HEPATITIS B SURFACE ANTIGEN (2) Nonreactive Nonreactive (BEAKER) (test code = 2585) Specimen is considered negative for HBsAg.HEPATITIS C [id number] 19:51:14 Test Item Value Reference Range Interpretation Comments HEPATITIS C ANTIBODY (BEAKER) Nonreactive Nonreactive (test code = 367) SARS-COV2/RT-PCR ([facility])2019-11-14 17:47:00 Test Item Value Reference Range Interpretation Comments SARS-COV2/RT-PCR (test code = Negative Not Detected, Negative 8071053) SARS-COV-2 PERFORMING LAB [facility] (test code = 6962979) Negative results do not preclude SARS-CoV-2 infection [...] of the Act.Fact Sheet for Healthcare Pro viders:https://www.Dataslide.Worlds/Documents/Xpert%20Xpress%20SARS%20CoV-2/Fact%20Sh eets/559-1632%53OCGC-UKA-8%20HEALTHCARE%20PROVIDERS%20FACT%20SHEET.pdfFact Sheet for Healthcare Patients:https://www.Alverix.Worlds/Documents/Xpert%20Xpress%20SARS%20CoV-2/Fact%20Sheets/302-4157%20SARS-COV -2%20PATIENT%20FACT%20SHEET.pdfPerforming Laboratory:[place] [address], [place] [address]ILI W/PLT COUNT & AUTO DIFFERENTIAL 2018-08-10 08:25:00 [...] 3438) Received comment: User comments: Slide comments:RETICULOCYTE [id number] 08:06:00 Test Item Value Reference Range Interpretation Comments RETICULOCYTE COUNT PCT (BEAKER) (test 25.0 % 0.5-1.7 H code = 575) CBC W/PLT COUNT & AUTO [id number] 09:27:00 Test Item Value Reference Range Interpretation [...] 3438) Received comment: User comments: Slide comments:RETICULOCYTE [id number] 05:01:00 Test Item Value Reference Range Interpretation Comments RETICULOCYTE COUNT PCT (BEAKER) (test 21.6 % 0.5-1.7 H code = 575) CBC W/PLT COUNT & AUTO [id number] 15:17:00 Test Item Value Reference Range Interpretation [...] H (BEAKER) (test code = 413) RETICULOCYTE [id number] 08:44:00 Test Item Value Reference Range Interpretation Comments RETICULOCYTE COUNT PCT (BEAKER) (test 23.8 % 0.5-1.7 H code = 575) BLOOD [id number] 14:01:00 Test Item Value Reference Range Interpretation Comments CULTURE (BEAKER) (test No growth in 5 days code = 1095) BLOOD [id number] 12:01:00 Test Item Value Reference Range Interpretation Comments CULTURE (BEAKER) (test No growth in 5 days code = 1095) CBC W/PLT COUNT & AUTO [id number] 11:38:00 Test Item Value Reference Range Interpretation [...] 3438) Received comment: User comments: Slide comments:RETICULOCYTE [id number] 07:44:00 Test Item Value Reference Range Interpretation Comments RETICULOCYTE COUNT PCT (BEAKER) (test 27.0 % 0.5-1.7 H code = 575) RETICULOCYTE [id number] 07:19:00 Test Item Value Reference Range Interpretation Comments RETICULOCYTE COUNT PCT (BEAKER) (test 22.7 % 0.5-1.7 H code = 575) CBC W/PLT COUNT & AUTO [id number] 12:07:00 Test Item Value Reference Range Interpretation [...] 3438) Received comment: User comments: Slide comments:RETICULOCYTE [id number] 06:14:00 Test Item Value Reference Range Interpretation Comments RETICULOCYTE COUNT PCT (BEAKER) (test 21.9 % 0.5-1.7 H code = 575) [id number] 06:02:00 Test Item Value Reference Range Interpretation Comments PHOSPHORUS (BEAKER) (test code = 3.8 mg/dL 2.3-4.7 604) [id number] 06:02:00 Test Item Value Reference Range Interpretation Comments MAGNESIUM (BEAKER) (test code = 1.8 mg/dL 1.6-2.6 627) BASIC METABOLIC [id number] 06:02:00 Test Item Value Reference Range Interpretation [...] Specimen moderately ictericCBC W/PLT COUNT & AUTO [id number] 09:09:00 Test Item Value Reference Range Interpretation [...] = 3438) Received comment: User comments: Slide comments:[id number] 04:11:00 Test Item Value Reference Range Interpretation Comments PHOSPHORUS (BEAKER) (test code = 3.3 mg/dL 2.3-4.7 604) [id number] 04:11:00 Test Item Value Reference Range Interpretation Comments MAGNESIUM (BEAKER) (test code = 1.6 mg/dL 1.6-2.6 627) BASIC METABOLIC [id number] 04:11:00 Test Item Value Reference Range Interpretation [...] FOR DIALYSIS PATIEN TS. Specimen slightly ictericRETICULOCYTE [id number] 03:54:00 Test Item Value Reference Range Interpretation Comments RETICULOCYTE COUNT PCT (BEAKER) (test 20.4 % 0.5-1.7 H code = 575) CBC W/PLT COUNT & AUTO [id number] 18:30:00 Test Item Value Reference Range Interpretation [...] = 413) CBC W/PLT COUNT & AUTO [id number] 10:51:00 Test Item Value Reference Range Interpretation [...] K/uL 0.00-0.00 H (CELLAVISION)(BEAKER) (test code = 2738) TOTAL COUNTED (BEAKER) (test code 100 = [...] 3438) Received comment: User comments: Slide comments:RETICULOCYTE [id number] 10:08:00 Test Item Value Reference Range Interpretation Comments RETICULOCYTE COUNT PCT (BEAKER) (test 14.4 % 0.5-1.7 H code = 575) CBC W/PLT COUNT & AUTO [id number] 09:30:00 Test Item Value Reference Range Interpretation [...] = 3438) Received comment: User comments: Slide comments:[id number] 03:32:00 Test Item Value Reference Range Interpretation Comments PHOSPHORUS (BEAKER) (test code = 3.5 mg/dL 2.3-4.7 604) [id number] 03:32:00 Test Item Value Reference Range Interpretation Comments MAGNESIUM (BEAKER) (test code = 1.8 mg/dL 1.6-2.6 627) BASIC METABOLIC [id number] 03:32:00 Test Item Value Reference Range Interpretation [...] ictericCT, CHEST WITH IV CONTRAST- PE TEST [id number] 14:01:00FINAL REPORT CT scan of the chest. [...] MDReport Verified Date/Time: 08/02/2018 14:01:29 Reading Location: [address] Reading Room URINALYSIS W/ REFLEX URINE [...] 516) SOURCE(BEAKER) (test code = 2795) SCREEN, [id number] 11:15:00 Test Item Value Reference Range Interpretation Comments TEST URINE (BEAKER) (test Negative code = 583) RETICULOCYTE [id number] 04:43:00 Test Item Value Reference Range Interpretation Comments RETICULOCYTE COUNT PCT (BEAKER) (test 13.2 % 0.5-1.7 H code = 575) RAD, CHEST, 2 [id number] 03:54:00Reason for exam:->SICKLE CELL PAIN CRISISIs the [...] Reading Room CBC W/PLT COUNT & AUTO [id number] 03:04:00 Test Item Value Reference Range Interpretation [...] (BEAKER) (test code = 417) COMPREHENSIVE METABOLIC [id number] 02:42:00 Test Item Value Reference Range Interpretation [...]
--- NOTE | 2022-10-12 22:20 | RAD REPORT ---
EXAM DESCRIPTION: RADChest Single View10/12/2022 9:50 pm CLINICAL HISTORY: COUGH COMPARISON: Chest Single View dated 09/23/2022; Chest Pa And Lat (2 Views) dated 08/01/2022; Chest Sin gle View dated 03/28/2022; Chest Single View dated 12/23/2021 TECHNIQUE: Portable AP view of the chest. FINDINGS: The lungs are clear. No pneumothorax or effusion. The cardiomediastinal contours are unch anged. IMPRESSION: No acute cardiopulmonary process. No significant interval change.
[2022-10-12 22:25] LABS: Absolute Lymphocytes (CBC) 0.9 K/uL (0.7-4.9); Hematocrit 27.1 % (36.0-45.0); Lymphocytes % 3.4 % (15.3-44.8); MCV 101.3 fL (80-100); MPV 7.8 fL (7.6-11.3); RBC Red Blood Cell Count 2.68 M/uL (3.86-4.86)
[2022-10-12] MEDS ORDERED: NA CHLORIDE 0.9% 1,000 ML ONE (22:26)
[2022-10-12] MEDS ORDERED: HYDROMORPHONE HCL 1 MG/ML INJ ONE (22:26)
[2022-10-12] MEDS ORDERED: PROMETHAZINE INJ 25 MG/ML AMP ONE (22:26)
[2022-10-12] MEDS ORDERED: FOLIC ACID 5 MG/ML VIAL ONE (22:28)
[2022-10-12 22:30] LABS: Protime INR 1.19
[2022-10-12 22:41] LABS: ALT/SGPT 28 U/L (13-56); AST/SGOT 21 U/L (15-37); Albumin 4.4 g/dL (3.4-5.0); Alkaline Phosphatase 86 U/L (45-117); BUN Blood Urea Nitrogen 4 mg/dL (7-18); Bicarbonate 25 mEq/L (21-32); Bilirubin Direct 0.8 mg/dL (0-0.2); Bilirubin Indirect, Calculated 2.9 mg/dL (0.2-0.8); Bilirubin Total 3.7 mg/dL (0.2-1.0); Glomerular Filtration Rate 136 ml/min (=/>90); Glucose Level 137 mg/dL (74-106); Magnesium 1.7 mg/dL (1.6-2.4); NT PRO-BNP 198 pg/mL (<125); Potassium 3.2 mEq/L (3.5-5.1); Protein, Total 7.9 g/dL (6.4-8.2); Sodium Level 141 mEq/L (136-145)
[2022-10-12 22:46] LABS: Troponin High Sensitivity < 3.0 pg/mL (<58.9)
[2022-10-12 23:13] LABS: Blood Morphology Comment NOTED (NOT SEEN); Platelet Estimate ADEQ; Target Cells 2+
--- NOTE | 2022-10-12 23:26 | EDPHYS ---
Physician Documentation [facility] Name: Gume Otrega Age: 32 yrs Sex: Female : 1990 Arrival Date: 10/12/2022 Time: 21:15 Bed 8 Private MD: ED Physician Nelson Duffy HPI: 10/12 21:58 This 32 yrs old Black Female presents to ER via EMS with complaints of sickle cell cassidy crisis. 21:58 pain all over. Onset: The symptoms/episode began/occurred 2 day(s) ago. Severity of cassidy symptoms: At their worst the symptoms were mild in the emergency department the symptoms are unchanged. The patient has not experienced similar symptoms in the past. Historical: - Allergies: 21:21 Fentanyl; jb4 21:21 Morphine; jb4 21:21 Sulfa (Sulfonamide Antibiotics); jb4 21:21 Zofran; jb4 - Home Meds: 21:21 alprazolam 1 mg Oral tab [Active]; dilaudid 8 mg every 6 hours [Active]; jb4 - PMHx: 21:21 Anxiety; blood clot in lung; Sickle Cell; jb4 - PSHx: 21:21 Port placed to Left Chest; jb4 - Immunization history:: Adult Immunizations not up to date. - Social history:: Smoking status: Patient denies any tobacco usage or history of. Patient uses street drugs, marijuana. ROS: 22:00 Constitutional: Negative for fever, chills, and weight loss, Eyes: Negative for injury, cassidy pain, redness, and discharge, ENT: Negative for injury, pain, and discharge, Neck: Negative for injury, pain, and swelling, Cardiovascular: Negative for chest pain, palpitations, and edema, Respiratory: Negative for shortness of breath, cough, wheezing, and pleuritic chest pain, Abdomen/GI: Negative for abdominal pain, nausea, vomiting, diarrhea, and constipation, Back: Negative for injury and pain, : Negative for injury, bleeding, discharge, and swelling, MS/Extremity: Negative for injury and deformity, Skin: Negative for injury, rash, and discoloration, Neuro: Negative for headache, weakness, numbness, tingling, and seizure, Psych: Negative for depression, anxiety, suicide ideation, homicidal ideation, and hallucinations, Allergy/Immunology: Negative for hives, rash, and allergies, Endocrine: Negative for neck swelling, polydipsia, polyuria, polyphagia, and marked weight changes, Hematologic/Lymphatic: Negative for swollen nodes, abnormal bleeding, and unusual bruising. Exam: 22:00 Constitutional: This is a well developed, well nourished patient who is awake, alert, cassidy and in no acute distress. Head/Face: Normocephalic, atraumatic. Eyes: Pupils equal round and reactive to light, extra-ocular motions intact. Lids and lashes normal. Conjunctiva and sclera are non-icteric and not injected. Cornea within normal limits. Periorbital areas with no swelling, redness, or edema. ENT: Nares patent. No nasal discharge, no septal abnormalities noted. Tympanic membranes are normal and external auditory canals are clear. Oropharynx with no redness, swelling, or masses, exudates, or evidence of obstruction, uvula midline. Mucous membranes moist. Neck: Trachea midline, no thyromegaly or masses palpated, and no cervical lymphadenopathy. Supple, full range of motion without nuchal rigidity, or vertebral point tenderness. No Meningismus. Chest/axilla: Normal chest wall appearance and motion. Nontender with no deformity. No lesions are appreciated. Cardiovascular: Regular rate and rhythm with a normal S1 and S2. No gallops, murmurs, or rubs. Normal PMI, no JVD. No pulse deficits. Respiratory: Lungs have equal breath sounds bilaterally, clear to auscultation and percussion. No rales, rhonchi or wheezes noted. No increased work of breathing, no retractions or nasal flaring. Abdomen/GI: Soft, non-tender, with normal bowel sounds. No distension or tympany. No guarding or rebound. No evidence of tenderness throughout. Female : Normal external genitalia. Skin: Warm, dry with normal turgor. Normal color with no rashes, no lesions, and no evidence of cellulitis. MS/ Extremity: Pulses equal, no cyanosis. Neurovascular intact. Full, normal range of motion. Neuro: Awake and alert, GCS 15, oriented to person, place, time, and situation. Cranial nerves II-XII grossly intact. Motor strength 5/5 in all extremities. Sensory grossly intact. Cerebellar exam normal. Normal gait. 22:00 Musculoskeletal/extremity: DVT Exam: No signs of deep vein thrombosis. no pain, no swelling, no tenderness, negative Homans' sign noted on exam, no appreciated bluish discoloration, no erythema, no increased warmth. 22:06 ECG was reviewed by the Attending Physician. [facility] Vital Signs: 21:17 BP 135 / 56; Pulse 46; Resp 18; Temp 97.7(TE); Pulse Ox 100% on R/A; Weight 68.04 kg jb4 (R); Height 5 ft. 2 in. (R); Pain 10/10; 22:00 BP 122 / 70; Pulse 54; Resp 18; Pulse Ox 100% ; vc1 23:00 BP 124 / 87; Pulse 46; Resp 18; Pulse Ox 100% ; vc1 10/13 00:01 BP 137 / 88; Pulse 52; Resp 16; Pulse Ox 100% on 2 lpm NC; [facility] 10/12 21:17 Body Mass Index 27.44 (68.04 kg, 157.48 cm) [facility] 10/12 21:17 Pain Scale: Adult [facility] MDM: 10/12 21:25 Patient medically screened. [facility] 22:02 Differential Diagnosis sepsis. Data reviewed: vital signs, nurses notes, lab test [facility] result(s), EKG, radiologic studies, plain films. Consideration of Admission/Observation Escalation of care including admission/observation considered. I considered the following discharge prescriptions or medication management in the emergency department Medications were administered in the Emergency Department. See MAR. Test considered but Not performed: CT: no ct chest and abd. Care significantly affected by the following chronic conditions: anxiety, clot in lung, sickle cell , hgb runs 7 usually. 10/12 21:27 Order name: Basic Metabolic Panel; Complete Time: 23:12 [facility] 10/12 21:27 Order name: CBC with Diff; Complete Time: 23:23 [facility] 10/12 21:27 Order name: LFT's; Complete Time: 23:12 [facility] 10/12 21:27 Order name: Magnesium; Complete Time: 23:12 [facility] 10/12 21:27 Order name: NT PRO-BNP; Complete Time: 23:12 [facility] 10/12 21:27 Order name: PT-INR; Complete Time: 23:12 [facility] 10/12 21:27 Order name: Troponin HS; Complete Time: 23:12 [facility] 10/12 21:27 Order name: Retic Count; Complete Time: 23:23 [facility] 10/12 21:27 Order name: Blood Culture Adult (2) [facility] 10/12 21:27 Order name: Lactate w/ 2H reflex if indic.; Complete Time: 23:12 [facility] 10/12 21:27 Order name: UDS [facility] 10/12 20:27 Order name: Urinalysis w/ reflexes [facility] 10/12 21:27 Order name: PREGU [facility] 10/12 22:40 Order name: Manual Differential; Complete Time: 23:23 EDMS 10/12 21:27 Order name: XRAY Chest (1 view); Complete Time: 23:12 [facility] 10/12 21:27 Order name: EKG; Complete Time: 21:29 [facility] 10/12 21: Order name: Cardiac monitoring; Complete Time: :37 [facility] 10/12 20: Order name: EKG - Nurse/Tech; Complete Time: :37 [facility] 10/12 20:27 Order name: IV Saline Lock; Complete Time: 22:37 [facility] 10/12 20:27 Order name: Labs collected and sent; Complete Time: 22:37 [facility] 10/12 20: Order name: O2 Per Protocol; Complete Time: 22:37 [facility] 10/12 20: Order name: O2 Sat Monitoring; Complete Time: :37 [facility] 10/12 20:27 Order name: Oxygen: 2 liters; Complete Time: 22:47 [facility] EC:06 Rate is 45 beats/min. Rhythm is regular. QRS [place] is Normal. [place] interval is normal. QRS cassidy interval is normal. QT interval is normal. No Q waves. T waves are Normal. No ST changes noted. Clinical impression: Sinus bradycardia and No evidence of ischemia. Interpreted by me. Reviewed by me. Administered Medications: 22:37 Drug: foLIC Acid IVPB 1 mg Route: IVPB; Site: Port-a-cath; 4 22:37 Drug: HYDROmorphone IVP 1 mg Route: IVP; Site: Port-a-cath; 4 22:37 Drug: Promethazine IVP 12.5 mg Route: IVP; Site: Port-a-cath; 4 22:37 Drug: NS 0.9% IV 1000 ml Route: IV; Rate: 1 bolus; Site: Port-a-cath; 4 10/13 00:52 Drug: Promethazine IVP 12.5 mg Route: IVP; Site: Port-a-cath; jb4 00:52 Drug: HYDROmorphone IVP 1 mg Route: IVP; Site: Port-a-cath; jb4 00:52 Drug: diphenhydrAMINE IVP 25 mg Route: IVP; Site: Port-a-cath; jb4 Disposition Summary: 10/12/22 23:25 Hospitalization Ordered Hospitalization Status: Observation cassidy Provider: Karl De Leon cha Location: Telemetry/MedSurg (Inpatient) cassidy Condition: Fair cassidy Problem: new cassidy Symptoms: have improved cassidy Bed/Room Type: Standard cassidy Room Assignment: 216(10/12/22 23:48) mw Diagnosis - Other sickle-cell disorders with crisis, unspecified cassidy Forms: - Medication Reconciliation Form cassidy - SBAR form cassidy Signatures: Dispatcher [employer] EDChasity Jansen RN Nelson Ibarra MD MD cha Bryson, James, RN RN Macie Pena PA-C PA-C sb4 Corrections: (The following items were deleted from the chart) 10/12 23:48 23:25 cassidy mw
--- NOTE | 2022-10-12 23:26 | ER ---
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 Pt reports nausea and vomiting. Was given 10mg of Reglan IM. Coronavirus screen: At this time, the client does not indicate any symptoms associated with coronavirus-19. Ebola Screen: No symptoms or risks identified at this time. Initial Sepsis Screen: Does the patient meet any 2 criteria? No. Patient's initial sepsis screen is negative. Does the patient have a suspected source of infection? No. Patient's initial sepsis screen is negative. Risk Assessment: Do you want to hurt yourself or someone else? Patient reports no desire to harm self or others. Onset of symptoms was October 12, 2022. Transition of care: patient was not received from another setting of care. 21:17 Method Of Arrival: EMS: [facility] jb4 21:17 Acuity: MARILUZ 3 jb4 Historical: - Allergies: 21:21 Fentanyl; jb4 21:21 Morphine; jb4 21:21 Sulfa (Sulfonamide Antibiotics); jb4 21:21 Zofran; jb4 - Home Meds: 21:21 alprazolam 1 mg Oral tab [Active]; dilaudid 8 mg every 6 hours [Active]; jb4 - PMHx: 21:21 Anxiety; blood clot in lung; Sickle Cell; jb4 - PSHx: 21:21 Port placed to Left Chest; jb4 - Immunization history:: Adult Immunizations not up to date. - Social history:: Smoking status: Patient denies any tobacco usage or history of. Patient uses street drugs, marijuana. Screenin:30 [facility] ED Fall Risk Assessment (Adult) History of falling in the last 3 months, jb4 including since admission No falls in past 3 months (0 pts) Confusion or Disorientation No (0 pts) Score/Fall Risk Level 0 - 2 = Low Risk Oriented to surroundings, Maintained a safe environment. Abuse screen: Denies threats or abuse. Nutritional screening: No deficits noted. Tuberculosis screening: No symptoms or risk factors identified. Assessment: 21:30 General: Appears in no apparent distress. uncomfortable, Behavior is calm, cooperative, jb4 appropriate for age. Pain: Complains of pain in abdomen Pain does not radiate. Pain currently is 10 out of 10 on a pain scale. Quality of pain is described as aching. Neuro: Level of Consciousness is awake, alert, obeys commands, Oriented to person, place, time, situation. Cardiovascular: Patient's skin is warm and dry. Respiratory: Airway is patent Respiratory effort is even, unlabored, Respiratory pattern is regular, symmetrical. GI: Abdomen is flat, non-distended, Pt is actively vomiting bile, Reports lower abdominal pain, upper abdominal pain, nausea, vomiting. : No signs and/or symptoms were reported regarding the genitourinary system. EENT: No signs and/or symptoms were reported regarding the EENT system. Derm: Skin is intact, Skin is dry, Skin is normal, Skin temperature is warm. Musculoskeletal: Circulation, motion, and sensation intact. Range of motion: intact in all extremities. 23:00 Reassessment: Patient appears in no apparent distress at this time. Patient and/or jb4 family updated on plan of care and expected duration. Pain level reassessed. Patient is alert, oriented x 3, equal unlabored respirations, skin warm/dry/pink. Vital Signs: 21:17 BP 135 / 56; Pulse 46; Resp 18; Temp 97.7(TE); Pulse Ox 100% on R/A; Weight 68.04 kg jb4 (R); Height 5 ft. 2 in. (R); Pain 10/10; 22:00 BP 122 / 70; Pulse 54; Resp 18; Pulse Ox 100% ; vc1 23:00 BP 124 / 87; Pulse 46; Resp 18; Pulse Ox 100% ; vc1 0603 00:01 BP 137 / 88; Pulse 52; Resp 16; Pulse Ox 100% on 2 lpm NC; jb4 10/12 21:17 Body Mass Index 27.44 (68.04 kg, 157.48 cm) jb4 10/12 21:17 Pain Scale: Adult 4 ED Course: 10/12 21:17 Patient arrived in ED. jb4 21:20 Triage completed. jb4 21:21 Arm band placed on right wrist. jb4 21:25 Nelson Duffy MD is Attending Physician. [facility] 21:36 Side rails up X2. Assisted with dressing. Cleaned of incontinence. Linen changed. [facility] 21:39 Steve Villavicencio, RN is Primary Nurse. jb4 21:52 XRAY Chest (1 view) In Process Unspecified. [facility] 23:24 Karl De Leon MD is Hospitalizing Provider. [facility] 23:25 Assisted with dressing. Cleaned of incontinence. [facility] 10/13 01:03 No provider procedures requiring assistance completed. Patient admitted, IV remains in jb4 place. Administered Medications: 10/12 22:37 Drug: foLIC Acid IVPB 1 mg Route: IVPB; Site: Port-a-cath; jb4 22:37 Drug: HYDROmorphone IVP 1 mg Route: IVP; Site: Port-a-cath; jb4 22:37 Drug: Promethazine IVP 12.5 mg Route: IVP; Site: Port-a-cath; jb4 22:37 Drug: NS 0.9% IV 1000 ml Route: IV; Rate: 1 bolus; Site: Port-a-cath; jb4 10/13 00:52 Drug: Promethazine IVP 12.5 mg Route: IVP; Site: Port-a-cath; jb4 00:52 Drug: HYDROmorphone IVP 1 mg Route: IVP; Site: Port-a-cath; jb4 00:52 Drug: diphenhydrAMINE IVP 25 mg Route: IVP; Site: Port-a-cath; 4 Outcome: 10/12 23:25 Decision to Hospitalize by Provider. [facility] 10/13 01:03 Admitted to Med/surg accompanied by tech, via stretcher, room 216, with oxygen, with 4 chart. Condition: stable Discharge instructions given to patient, Instructed on the need for admit, Demonstrated understanding of instructions. 01:04 Patient left the ED. 4 Signatures: Dispatcher [employer] EDNelson Vieira MD MD cha Bryson, James, RN RN jb4 Gena Henry 4 Emi Pratt RN RN vc1
--- NOTE | 2022-10-12 23:36 | P.HP ---
Certification for Inpatient Patient admitted to: Inpatient With expected LOS: >2 Midnights Patient will require the following post-hospital care: None Practitioner: I am a practitioner with admitting privileges, knowledge of patient current condition, hospital course, and medical plan of care. Services: Services provided to patient in accordance with Admission requirements found in Title 42 Section 412.3 of the Code of Federal Regulations Patient History Date of Service: 10/12/22 Reason for admission: Sickle Cell Crisis History of Present Illness: Ms. Ortega is a 32-year-old female with past medical history of sickle cell anemia and previous pulmonary embolism on chronic anticoagulation therapy who presented to the emergency department for abdominal pain, nausea, vomiting, and suspected sickle cell crisis. She denies any fever, chills, chest pain or other new/acute symptoms. Her labs are significant for WBC 26.9, hgb 9.4, 10.9% retic, potassium 3.2, tibi 3.7, chest xray negative. She has been bradycardic but vitals otherwise stable. ED provider wishes to admit patient for further management of sickle cell crisis. Allergies ondansetron HCl [From Zofran] Allergy (Mild, Verified 03/28/22 00:34) Nausea/Vomiting fentanyl [From Sublimaze (PF)] Allergy (Verified 03/28/22 00:34) Anaphylaxis morphine Allergy (Verified 03/28/22 00:34) Nausea/Vomiting Sulfa (Sulfonamide Antibiotics) Allergy (Verified 03/28/22 00:34) Nausea/Vomiting Home Medications: Folic Acid [Folic Acid*] 1 mg PO DAILY 08/01/12 Cholecalciferol (Vitamin D3) [Vitamin D 1000 Iu Tab*] 50,000 unit PO EVERY 7TH DAY 09/30/20 Apixaban [Eliquis *] 2.5 mg PO BID #60 tablet 12/21/20 Pregabalin [Lyrica*] 75 mg PO Q8H #90 cap 04/09/22 Promethazine Tab [Phenergan*] 25 mg PO Q6HP PRN #30 tab 04/09/22 methocarbamoL [Robaxin*] 1,000 mg PO Q8H #60 tab 04/09/22 ALPRAZolam [Xanax*] 1 mg PO BIDP PRN #60 tab 08/04/22 Hydromorphone [Dilaudid*] 8 mg PO Q6HP PRN #24 tab 09/25/22 - Past Medical/Surgical History Diabetic: No -: Sickle Cell Anemia -: Pulmonary Embolism -: port-a-cath placement Psychosocial/ Personal History: Patient lives at home with her girlfriend - Family History Mother -: Other (see notes) Notes: sickle cell trait Father -: Other (see notes) Notes: sickle cell trait - Social History Smoking Status: Current some day smoker (vapes) Alcohol use: No CD- Drugs: Yes Caffeine use: No Place of Residence: Home Review of Systems Gastrointestinal: Nausea, Vomiting, Abdominal Pain Physical Examination - Vital Signs Temperature: 97.7 F Blood Pressure: 124/87 Pulse: 46 Respirations: 18 Pulse Ox (%): 100 - Physical Exam General: Alert, In no apparent distress HEENT: Atraumatic, EOMI, Sclerae nonicteric Neck: Supple, 2+ carotid pulse no bruit Respiratory: Clear to auscultation bilaterally, Normal air movement Cardiovascular: Regular rate/rhythm, Normal S1 S2 Gastrointestinal: Normal bowel sounds, No tenderness Musculoskeletal: No tenderness Integumentary: No rashes Neurological: Normal speech, Normal affect - Studies Laboratory Data (last 24 hrs) 10/12/22 22:00: PT 13.1 H, INR 1.19 10/12/22 22:00: WBC 26.90 H, Hgb 9.4 L, Hct 27.1 L, Plt Count 533 H 10/12/22 22:00: Sodium 141, Potassium 3.2 L, BUN 4 L, Creatinine 0.39 L, Glucose 137 H, Magnesium 1.7, Total Bilirubin 3.7 H, AST 21, ALT 28, Alkaline Phosphatase 86 Assessment and Plan - Problems (Diagnosis) (1) Sickle cell pain crisis Current Visit: Yes Status: Acute - Plan Patient is admitted for further management of sickle cell crisis. Supportive measures with Dilaudid, phenegran, benadryl, supplemental oxygen, IV fluids. Daily labs with reticulocyte count. Chest xray negative for acute findings. Denies any fever, chills or other new ROS findings aside from acute generalized pain similar to her previous sickle cell crisis. Monitor and replete electrolytes per protocol. Reconcile and continue home medications. Continue Eliquis 2.5 mg p.o. twice daily, patient has been compliant with this medication. Full code. Discharge Plan: Home Plan to discharge in: Greater than 2 days - Advance Directives Does patient have a Living Will: No Does patient have a Durable POA for Healthcare: No - Code Status/Comfort Care Code Status Assessed: Yes Code Status: Full Code Physician Review: Patient Assessed, Agree with Above Assessment and Plan Critical Care: No Time Spent Managing Pts Care (In Minutes): 50
[2022-10-13] MEDS: NA CHLORIDE 0.9% 1,000 ML IV SCH ×3 (00:30→21:06)
[2022-10-13] MEDS ORDERED: PROMETHAZINE INJ 25 MG/ML AMP ONE (00:49)
[2022-10-13] MEDS ORDERED: DIPHENHYDRAMINE 50 MG/ML VIAL ONE (00:49)
[2022-10-13] MEDS ORDERED: HYDROMORPHONE HCL 1 MG/ML INJ ONE (00:50)
[2022-10-13 01:26] VITALS: BMI 26.6
[2022-10-13] MEDS: HYDROMORPHONE HCL 1 MG/ML INJ IV PRN ×5 (05:00→21:06)
[2022-10-13] MEDS: PROMETHAZINE INJ 25 MG/ML AMP IV PRN ×5 (05:00→21:06)
[2022-10-13 05:13] LABS: Absolute Lymphocytes (CBC) 6.9 K/uL (0.7-4.9); Hematocrit 23.7 % (36.0-45.0); Lymphocytes % 28.3 % (15.3-44.8); MCV 102.2 fL (80-100); MPV 7.9 fL (7.6-11.3); RBC Red Blood Cell Count 2.32 M/uL (3.86-4.86)
[2022-10-13 07:59] LABS: Urine Bacteria 20-50 /HPF (<20); Urine Bilirubin NEGATIVE (Negative); Urine Blood Negative (Negative); Urine Clarity Clear (Clear); Urine Color Light-Yellow (Yellow); Urine Glucose NEGATIVE (Negative); Urine Mucus Slight /HPF (None Seen); Urine Protein NEGATIVE (Negative); Urine RBC <5 /HPF (None Seen); Urine Urobilinogen Normal (Normal); Urine pH 6.5 (5.0-7.0)
[2022-10-13 08:02] LABS: Barbiturates NEGATIVE (NEGATIVE); Benzodiazepines NEGATIVE (NEGATIVE); Cocaine POSITIVE (NEGATIVE); METHAMPHETAM NEGATIVE (NEGATIVE); Methadone NEGATIVE (NEGATIVE); Opiates NEGATIVE (NEGATIVE); Phencyclidine NEGATIVE (NEGATIVE); THC Cannibis POSITIVE (NEGATIVE)
[2022-10-13] MEDS: DIPHENHYDRAMINE 50 MG/ML VIAL IV PRN ×2 (08:56→17:01)
[2022-10-13] MEDS ORDERED: POTASSIUM CL SA 10 MEQ TAB PO ONE (09:00)
--- NOTE | 2022-10-13 10:43 | P.PN ---
Subjective Date of Service: 10/14/22 Chief Complaint: Sickle Cell Crisis Subjective: No new changes, Improving Physical Examination - Vital Signs Temperature: 98.2 F Blood Pressure: 95/46 Pulse: 55 Respirations: 18 Pulse Ox (%): 100 - Physical Exam General: Alert HEENT: Atraumatic, Normocephalic Neck: Supple Respiratory: Normal air movement Cardiovascular: Regular rate/rhythm, Normal S1 S2 Gastrointestinal: Soft and benign Musculoskeletal: No swelling Neurological: Normal speech - Studies Laboratory Data (last 24 hrs) 10/12/22 22:00: PT 13.1 H, INR 1.19 10/12/22 22:00: WBC 26.90 H, Hgb 9.4 L, Hct 27.1 L, Plt Count 533 H 10/12/22 22:00: Sodium 141, Potassium 3.2 L, BUN 4 L, Creatinine 0.39 L, Glucose 137 H, Magnesium 1.7, Total Bilirubin 3.7 H, AST 21, ALT 28, Alkaline Phosphatase 86 Assessment And Plan - Plan Sickle cell crisisimproving History of PE Volume depletion Plan: Patient continues to exhibit significant pain generally. We will continue IV hydration and IV Dilaudid doses. Continue to review symptomatology closely. Disposition: Discharge home in the next 24 to 48 hours. Physician Review: Patient Assessed, Agree with Above Assessment and Plan
[2022-10-14] MEDS: DIPHENHYDRAMINE 50 MG/ML VIAL IV PRN ×3 (02:06→18:19)
[2022-10-14] MEDS: PROMETHAZINE INJ 25 MG/ML AMP IV PRN ×6 (02:06→22:02)
[2022-10-14] MEDS: HYDROMORPHONE HCL 1 MG/ML INJ IV PRN ×6 (02:06→22:01)
[2022-10-14 05:38] LABS: Absolute Lymphocytes (CBC) 6.4 K/uL (0.7-4.9); Hematocrit 20.6 % (36.0-45.0); Lymphocytes % 42.6 % (15.3-44.8); MCV 101.1 fL (80-100); MPV 7.9 fL (7.6-11.3); RBC Red Blood Cell Count 2.04 M/uL (3.86-4.86)
[2022-10-14] MEDS: NA CHLORIDE 0.9% 1,000 ML IV SCH ×2 (06:30→17:34)
--- NOTE | 2022-10-14 09:55 | P.PN ---
Subjective Date of Service: 10/14/22 Chief Complaint: Sickle Cell Crisis Subjective: No new changes, Improving Physical Examination - Vital Signs Temperature: 98.1 F Blood Pressure: 97/51 Pulse: 65 Respirations: 14 Pulse Ox (%): 95 - Physical Exam General: Alert, Oriented x3 HEENT: Atraumatic, Normocephalic Neck: Supple Cardiovascular: Regular rate/rhythm, Normal S1 S2 Gastrointestinal: Soft and benign Musculoskeletal: No swelling Neurological: Normal speech Assessment And Plan - Plan Sickle cell crisis-improving History of PE Volume depletion-resolved Plan: Patient continues to have some pain however she reports some significant improvement. We will continue IV hydration. We will review pain medication. For possible discharge in a.m. Physician Review: Patient Assessed, Agree with Above Assessment and Plan
--- NOTE | 2022-10-14 14:20 | EKG ---
Test Date: 2022-10-12 Test Time: 21:46:34 Radiosonde Operator: MATTI MEASUREMENT RESULTS: Intervals: Rate: 45 DC: 128 QRSD: 94 QT: 470 QTc: 406 [place]: P: 7 DC: 128 QRS: 54 T: 53 INTERPRETIVE STATEMENTS: Sinus bradycardia Otherwise normal ECG Compared to ECG 09/23/2022 19:47:35 Sinus rhythm no longer present Electronically Signed On 10-14-22 14:17:30 CDT by Dev Zavala
[2022-10-14] MEDS ORDERED: NA CHLORIDE 0.9% 250 ML IV SCH (22:00)
[2022-10-15] MEDS: HYDROMORPHONE HCL 1 MG/ML INJ IV PRN ×7 (02:00→22:24)
[2022-10-15] MEDS: PROMETHAZINE INJ 25 MG/ML AMP IV PRN ×5 (02:01→22:24)
[2022-10-15] MEDS: DIPHENHYDRAMINE 50 MG/ML VIAL IV PRN ×4 (02:01→22:24)
[2022-10-15] MEDS: NA CHLORIDE 0.9% 1,000 ML IV SCH ×3 (03:41→18:15)
[2022-10-15 04:48] LABS: Magnesium 1.6 mg/dL (1.6-2.4); Phosphorus 3.3 mg/dL (2.5-4.9); Potassium 3.7 mEq/L (3.5-5.1)
[2022-10-15 04:59] LABS: Absolute Lymphocytes (CBC) 5.6 K/uL (0.7-4.9); Hematocrit 18.9 % (36.0-45.0); MCV 100.7 fL (80-100); MPV 8.8 fL (7.6-11.3); RBC Red Blood Cell Count 1.87 M/uL (3.86-4.86)
[2022-10-15] MEDS ORDERED: POTASSIUM CL SA 10 MEQ TAB PO ONE (06:00)
[2022-10-15] MEDS ORDERED: MAGNESIUM SULFATE 1 gm IVPB 1 GM/100 ML BAG IV ONE (06:00)
[2022-10-15] MEDS ORDERED: NA CHLORIDE 0.9% 250 ML IV SCH (08:00)
[2022-10-15] MEDS ORDERED: NA CHLORIDE 0.9% 250 ML ONE (09:26)
[2022-10-15 18:17] LABS: Hematocrit 23.9 % (36.0-45.0)
--- NOTE | 2022-10-15 18:55 | P.PN ---
Subjective Date of Service: 10/15/22 Chief Complaint: Sickle Cell Crisis No acute events overnight. She reports significant generalized body aches, which she grades a 10/10 in severity. Her hemoglobin has dropped to 6.5 this morning. She denies any evidence of bleeding. She denies any chest pain, palpitations, or shortness of breath Review of Systems 10-point ROS is otherwise unremarkable Musculoskeletal: Other (generalized myalgias) Physical Examination - Vital Signs Temperature: 97.9 F Blood Pressure: 109/49 Pulse: 79 Respirations: 18 Pulse Ox (%): 94 Assessment And Plan - Plan - Physical Exam General: Alert, In no apparent distress, Oriented x3 HEENT: Atraumatic, Mucous membr. moist/pink, Sclerae nonicteric Neck: JVD not distended Respiratory: Clear to auscultation bilaterally, without wheezes, rhonchi, or rales. Left-sided chest port noted. Cardiovascular: No edema, Regular rate/rhythm, Normal S1 S2, No gallops, No rubs, No murmurs Gastrointestinal: Normal bowel sounds, Soft, Non-distended, No tenderness, No rebound, No guarding Musculoskeletal: No clubbing Integumentary: No rashes Neurological: Normal speech, Normal affect # Acute Sickle Cell Vaso-Occlusive Pain Crisis # Acute on Chronic Anemia due to above # Suspect Reactive Leukocytosis due to Pain She reports generalized body pain, similar to her prior episodes of sickle cell pain crisis. She reports prior history of acute chest syndrome "several years ago." - Evaluation thus far: - Presenting Hgb = 9.4 (near baseline) - Hemoglobin dropped to 6.5 and she received 1 units pRBCs - No thrombocytopenia or splenic tenderness to suggest splenic/hepatic sequestration - Reticulocyte count = 0.19 - Chest x-ray = "no acute cardiopulmonary process. No significant interval change." - Management plan: - IV hydration Lactated Ringers' @ 100 mL/hr - Continue IV hydromorphone for acute pain crisis - Incentive spirometry - Continue home folic acid - Wanted to trial hydroxyurea - but she reports that she is intolerant to this # History of Pulmonary Embolism - Continue home apixaban Jimenez Salinas M.D.
[2022-10-15] MEDS: APIXABAN 2.5 MG TABLET PO SCH (22:22)
[2022-10-15] MEDS: Ringers Lactate 1,000 ML IV SCH (22:32)
[2022-10-16] MEDS: HYDROMORPHONE HCL 1 MG/ML INJ IV PRN ×8 (01:12→21:53)
[2022-10-16] MEDS: DIPHENHYDRAMINE 50 MG/ML VIAL IV PRN ×4 (03:56→21:53)
[2022-10-16] MEDS: PROMETHAZINE INJ 25 MG/ML AMP IV PRN ×4 (03:56→21:54)
[2022-10-16 04:34] LABS: Absolute Lymphocytes (CBC) 7.4 K/uL (0.7-4.9); Lymphocytes % 39.8 % (15.3-44.8); MCV 96.3 fL (80-100); MPV 8.7 fL (7.6-11.3); RBC Red Blood Cell Count 2.59 M/uL (3.86-4.86)
[2022-10-16 04:57] LABS: Magnesium 1.7 mg/dL (1.6-2.4); Potassium 3.7 mEq/L (3.5-5.1)
[2022-10-16] MEDS: Ringers Lactate 1,000 ML IV SCH ×4 (05:00→18:58)
[2022-10-16] MEDS ORDERED: POTASSIUM CL SA 10 MEQ TAB PO ONE (07:17)
[2022-10-16] MEDS: APIXABAN 2.5 MG TABLET PO SCH ×2 (08:27→21:53)
[2022-10-16] MEDS: FOLIC ACID 1 MG TABLET PO SCH (08:27)
[2022-10-16] MEDS ORDERED: MAGNESIUM SULFATE 1 gm IVPB 1 GM/100 ML BAG IV ONE (09:00)
--- NOTE | 2022-10-16 18:27 | P.PN ---
Subjective Date of Service: 10/16/22 Chief Complaint: Sickle Cell Crisis No acute events overnight. She reports that her generalized myalgias are unchanged compared to yesterday. She grades her pain a 10/10 in severity. Her hemoglobin levels have been stable s/p pRBC transfusion. She denies any chest pain, palpitations, or shortness of breath Review of Systems 10-point ROS is otherwise unremarkable Musculoskeletal: Other (generalized myalgias) Physical Examination - Vital Signs Temperature: 98.6 F Blood Pressure: 124/61 Pulse: 66 Respirations: 20 Pulse Ox (%): 96 Assessment And Plan - Plan - Physical Exam General: Alert, In no apparent distress, Oriented x3 HEENT: Atraumatic, Mucous membr. moist/pink, Sclerae nonicteric Neck: JVD not distended Respiratory: Clear to auscultation bilaterally, without wheezes, rhonchi, or rales. Left-sided chest port noted. Cardiovascular: No edema, Regular rate/rhythm, No murmurs Gastrointestinal: Normal bowel sounds, Soft, Non-distended, No tenderness Musculoskeletal: No clubbing Integumentary: No rashes Neurological: Normal speech, Normal affect # Acute Sickle Cell Vaso-Occlusive Pain Crisis # Acute on Chronic Anemia due to above # Suspect Reactive Leukocytosis due to Pain She reports generalized body pain, similar to her prior episodes of sickle cell pain crisis. She reports prior history of acute chest syndrome "several years a go." - Evaluation thus far: - Presenting Hgb = 9.4 (near baseline) - Hemoglobin dropped to 6.5 and she received 1 units pRBCs - No thrombocytopenia or splenic tenderness to suggest splenic/hepatic sequestration - Reticulocyte count = 0.19 - Chest x-ray = "no acute cardiopulmonary process. No significant interval change." - Management plan: - IV hydration Lactated Ringers' @ 100 mL/hr - Continue IV hydromorphone for acute pain crisis - Started methocarbamol - Incentive spirometry - Continue home folic acid - Wanted to trial hydroxyurea - but she reports that she is intolerant to this # History of Pulmonary Embolism - Continue home apixaban Jimenez Salinas M.D.
[2022-10-17] MEDS: HYDROMORPHONE HCL 1 MG/ML INJ IV PRN ×4 (00:52→09:57)
[2022-10-17] MEDS: PROMETHAZINE INJ 25 MG/ML AMP IV PRN ×4 (03:52→21:18)
[2022-10-17] MEDS: DIPHENHYDRAMINE 50 MG/ML VIAL IV PRN ×4 (03:52→22:03)
[2022-10-17 05:35] LABS: Absolute Lymphocytes (CBC) 5.7 K/uL (0.7-4.9); Hematocrit 24.2 % (36.0-45.0); Lymphocytes % 34.9 % (15.3-44.8); MCV 98.2 fL (80-100); MPV 9.1 fL (7.6-11.3); RBC Red Blood Cell Count 2.46 M/uL (3.86-4.86)
[2022-10-17 05:48] LABS: Magnesium 1.9 mg/dL (1.6-2.4); Potassium 3.7 mEq/L (3.5-5.1)
[2022-10-17] MEDS: Ringers Lactate 1,000 ML IV SCH ×4 (06:53→21:00)
[2022-10-17] MEDS ORDERED: HYDROMORPHONE ORAL 4 MG TAB PO PRN ×2 (07:14→15:00)
[2022-10-17] MEDS ORDERED: POTASSIUM CL SA 10 MEQ TAB PO ONE (09:00)
[2022-10-17] MEDS: APIXABAN 2.5 MG TABLET PO SCH ×2 (09:07→21:18)
[2022-10-17] MEDS: FOLIC ACID 1 MG TABLET PO SCH (09:07)
[2022-10-17] MEDS: HYDROMORPHONE ORAL 4 MG TAB PO PRN (13:08)
[2022-10-17] MEDS ORDERED: HYDROMORPHONE HCL 1 MG/ML INJ IV ONE ×2 (16:28→21:09)
--- NOTE | 2022-10-17 20:38 | P.PN ---
Subjective Date of Service: 10/17/22 Chief Complaint: Sickle Cell Crisis No acute events overnight. She appears more comfortable this morning on rounds. She states that her pain remains at a 10/10 in severity, but also mentions that it is improved compared to yesterday. Plan to transition off of IV pain medications to PO this afternoon. She denies any chest pain, palpitations, or shortness of breath. Review of Systems 10-point ROS is otherwise unremarkable General: Other (generalized body aches) Physical Examination - Vital Signs Temperature: 97.1 F Blood Pressure: 110/65 Pulse: 76 Respirations: 18 Pulse Ox (%): 96 Assessment And Plan - Plan - Physical Exam General: Alert, In no apparent distress, Oriented x3 HEENT: Atraumatic, Mucous membr. moist/pink, Sclerae nonicteric Neck: JVD not distended Respiratory: Clear to auscultation bilaterally, without wheezes, rhonchi, or rales. Left-sided chest port noted. Cardiovascular: No edema, Regular rate/rhythm, No murmurs Gastrointestinal: Normal bowel sounds, Soft, Non-distended, No tenderness Musculoskeletal: No clubbing Integumentary: No rashes Neurological: Normal speech, Normal affect # Acute Sickle Cell Vaso-Occlusive Pain Crisis # Acute on Chronic Anemia due to above # Suspect Reactive Leukocytosis due to Pain She reports generalized body pain, similar to her prior episodes of sickle cell pain crisis. She reports prior history of acute chest syndrome "several years ago." - Evaluation thus far: - Presenting Hgb = 9.4 (near baseline) - Hemoglobin dropped to 6.5 and she received 1 units pRBCs - No thrombocytopenia or splenic tenderness to suggest splenic/hepatic sequestration - Reticulocyte count = 0.19 - Chest x-ray = "no acute cardiopulmonary process. No significant interval change." - Management plan: - IV hydration Lactated Ringers' @ 100 mL/hr - Transition from IV hydromorphone to PO hydromorphone - Started methocarbamol - Incentive spirometry - Continue home folic acid - Wanted to trial hydroxyurea - but she reports that she is intolerant to this # History of Pulmonary Embolism - Continue home apixaban Jimenez Salinas M.D.
[2022-10-18] MEDS: PROMETHAZINE INJ 25 MG/ML AMP IV PRN ×4 (01:39→20:19)
[2022-10-18] MEDS: HYDROMORPHONE ORAL 4 MG TAB PO PRN ×3 (01:40→17:37)
[2022-10-18] MEDS ORDERED: HYDROMORPHONE HCL 1 MG/ML INJ IV ONE ×3 (04:38→19:55)
[2022-10-18] MEDS: DIPHENHYDRAMINE 50 MG/ML VIAL IV PRN ×3 (05:02→20:20)
[2022-10-18] MEDS: APIXABAN 2.5 MG TABLET PO SCH ×2 (08:47→20:18)
[2022-10-18] MEDS: FOLIC ACID 1 MG TABLET PO SCH (08:47)
[2022-10-18] MEDS ORDERED: methocarbamoL 500 MG TAB PO PRN (09:40)
[2022-10-18] MEDS: Ringers Lactate 1,000 ML IV SCH ×3 (12:18→22:12)
--- NOTE | 2022-10-18 20:19 | P.PN ---
Subjective Date of Service: 10/18/22 Chief Complaint: Sickle Cell Crisis Overnight, she required a few doses of IV hydromorphone. She reports generalized body aches. She grades her pain a 10/10 in severity. She feels that she is gradually improving. She denies any chest pain, palpitations, or shortness of breath. Review of Systems 10-point ROS is otherwise unremarkable Musculoskeletal: Other (generalized body aches) Physical Examination - Vital Signs Temperature: 97 F Blood Pressure: 105/47 Pulse: 64 Respirations: 18 Pulse Ox (%): 96 - Studies Microbiology Data (last 24 hrs): 10/12/22 22:31 Blood - Blood Aerobic Blood Culture - Final No growth in 5 days. 10/12/22 22:31 Blood - Blood Anaerobic Blood Culture - Final No growth in 5 days. 10/12/22 22:31 Blood - Blood Aerobic Blood Culture - Final No growth in 5 days. 10/12/22 22:31 Blood - Blood Anaerobic Blood Culture - Final No growth in 5 days. Assessment And Plan - Plan - Physical Exam General: Alert, In no apparent distress, Oriented x3 HEENT: Atraumatic, Mucous membr. moist/pink, Sclerae nonicteric Neck: JVD not distended Respiratory: Clear to auscultation bilaterally, without wheezes, rhonchi, or rales. Left-sided chest port noted. Cardiovascular: No edema, Regular rate/rhythm, No murmurs Gastrointestinal: Normal bowel sounds, Soft, Non-distended, No tenderness Musculoskeletal: No clubbing Integumentary: No rashes Neurological: Normal speech, Normal affect # Acute Sickle Cell Vaso-Occlusive Pain Crisis # Acute on Chronic Anemia due to above # Suspect Reactive Leukocytosis due to Pain She reports generalized body pain, similar to her prior episodes of sickle cell pain crisis. She reports prior history of acute chest syndrome "several years ago." - Evaluation thus far: - Presenting Hgb = 9.4 (near baseline) - Hemoglobin dropped to 6.5 and she received 1 units pRBCs - No thrombocytopenia or splenic tenderness to suggest splenic/hepatic sequestration - Reticulocyte count = 0.19 - Chest x-ray = "no acute cardiopulmonary process. No significant interval change." - Management plan: - IV hydration Lactated Ringers' @ 100 mL/hr - Transition from IV hydromorphone to PO hydromorphone - Can utilize IV doses for breakthrough pain - Transition from IV methocarbamol to PO methocarbamol - Incentive spirometry - Continue home folic acid - Wanted to trial hydroxyurea - but she reports that she is intolerant to this # History of Pulmonary Embolism - Continue home apixaban Jimenez Salinas M.D.
[2022-10-18] MEDS: methocarbamoL 500 MG TAB PO SCH (21:00)
[2022-10-19] MEDS: HYDROMORPHONE ORAL 4 MG TAB PO PRN ×4 (00:41→23:54)
[2022-10-19] MEDS ORDERED: HYDROMORPHONE HCL 1 MG/ML INJ IV ONE ×3 (04:43→21:23)
[2022-10-19] MEDS: DIPHENHYDRAMINE 50 MG/ML VIAL IV PRN ×3 (05:05→21:41)
[2022-10-19 05:45] LABS: Absolute Lymphocytes (CBC) 7.1 K/uL (0.7-4.9); Hematocrit 23.6 % (36.0-45.0); MCV 97.4 fL (80-100); MPV 8.6 fL (7.6-11.3); RBC Red Blood Cell Count 2.42 M/uL (3.86-4.86)
[2022-10-19] MEDS: methocarbamoL 500 MG TAB PO SCH ×3 (06:19→21:41)
[2022-10-19] MEDS ORDERED: POTASSIUM CL SA 10 MEQ TAB PO ONE (08:02)
--- NOTE | 2022-10-19 09:34 | RAD REPORT ---
EXAM DESCRIPTION: RAD - Chest Single View - 10/19/2022 8:50 am CLINICAL HISTORY: leukocytosis Chest pain. COMPARISON: Chest Single View dated 10/12/2022; Chest Single View dated 09/23/2022; Chest Pa And Lat (2 Views) dated 08/01/2022; Chest Single View dated 03/28/2022 FINDINGS: Portable technique limits examination quality. Interstitial prominence is noted bilaterally, mild. The heart is upper limit normal in size. No displ aced fractures.Left port catheter its tip in the SVC.
[2022-10-19] MEDS: APIXABAN 2.5 MG TABLET PO SCH ×2 (09:37→21:41)
[2022-10-19] MEDS: FOLIC ACID 1 MG TABLET PO SCH (09:37)
[2022-10-19] MEDS: Ringers Lactate 1,000 ML IV SCH ×3 (09:38→21:43)
[2022-10-19 12:56] LABS: Absolute Lymphocytes (CBC) 5.2 K/uL (0.7-4.9); Hematocrit 22.3 % (36.0-45.0); Lymphocytes % 32.2 % (15.3-44.8); MPV 8.9 fL (7.6-11.3)
[2022-10-19 14:09] LABS: Blood Morphology Comment NOT SEEN (NOT SEEN); Platelet Estimate ADEQ
--- NOTE | 2022-10-19 14:25 | RAD REPORT ---
EXAM DESCRIPTION: TASIAChest Pa And Lat (2 Views)10/19/2022 1:09 pm CLINICAL HISTORY: Cough COMPARISON: October 19, 2022 and July 2022 FINDINGS: Mild bibasilar opacities unchanged. Remainder lungs appear clear of acute infiltrate Heart is normal size Central venous line in place IMPRESSION: Mild bibasilar lung opacities may represent mild atelectasis
--- NOTE | 2022-10-19 16:23 | P.PN ---
Subjective Date of Service: 10/19/22 Chief Complaint: Sickle Cell Crisis Overnight, she required a few doses of IV hydromorphone, but she is able to space them out further apart. She reports generalized body aches is persistent, but gradually improving. She grades her pain a 10/10 in severity. She denies any chest pain, palpitations, or shortness of breath. Review of Systems 10-point ROS is otherwise unremarkable General: Other (generalized pain) Physical Examination - Vital Signs Temperature: 98.6 F Blood Pressure: 95/45 Pulse: 56 Respirations: 16 Pulse Ox (%): 96 Assessment And Plan - Plan - Physical Exam General: Alert, In no apparent distress, Oriented x3 HEENT: Atraumatic, Mucous membr. moist/pink, Sclerae nonicteric Neck: JVD not distended Respiratory: Clear to auscultation bilaterally, without wheezes, rhonchi, or rales. Left-sided chest port noted. Cardiovascular: No edema, Regular rate/rhythm, No murmurs Gastrointestinal: Normal bowel sounds, Soft, Non-distended, No tenderness Musculoskeletal: No clubbing Integumentary: No rashes Neurological: Normal speech, Normal affect # Acute Sickle Cell Vaso-Occlusive Pain Crisis # Acute on Chronic Anemia due to above # Chronic Leukocytosis - suspect Reactive due to Pain She reports generalized body pain, similar to her prior episodes of sickle cell pain crisis. She reports prior history of acute chest syndrome "several years ago." - Evaluation thus far: - Presenting Hgb = 9.4 (near baseline) - Hemoglobin dropped to 6.5 and she received 1 units pRBCs - No thrombocytopenia or splenic tenderness to suggest splenic/hepatic sequestration - Reticulocyte count = 0.19 - Chest x-ray = "no acute cardiopulmonary process. No significant interval change." - Repeat chest x-ray due to persistent leukocytosis - Management plan: - IV hydration Lactated Ringers' @ 100 mL/hr - Transition from IV hydromorphone to PO hydromorphone - Can utilize IV doses for breakthrough pain - Transition from IV methocarbamol to PO methocarbamol - Incentive spirometry - Continue home folic acid - Wanted to trial hydroxyurea - but she reports that she is intolerant to this # History of Pulmonary Embolism - Continue home apixaban Jimenez Salinas M.D.
[2022-10-20] MEDS ORDERED: HYDROMORPHONE HCL 1 MG/ML INJ IV ONE ×4 (03:55→23:03)
[2022-10-20] MEDS: DIPHENHYDRAMINE 50 MG/ML VIAL IV PRN ×4 (04:16→23:15)
[2022-10-20] MEDS: HYDROMORPHONE ORAL 4 MG TAB PO PRN ×3 (06:00→17:59)
[2022-10-20] MEDS: methocarbamoL 500 MG TAB PO SCH ×3 (06:00→21:06)
[2022-10-20] MEDS: APIXABAN 2.5 MG TABLET PO SCH ×2 (08:45→21:06)
[2022-10-20] MEDS: Ringers Lactate 1,000 ML IV SCH ×2 (08:45→18:02)
[2022-10-20] MEDS: FOLIC ACID 1 MG TABLET PO SCH (08:45)
--- NOTE | 2022-10-20 19:20 | P.PN ---
Subjective Date of Service: 10/20/22 Chief Complaint: Sickle Cell Crisis She continues to experience 10/10 pain. She states that the pain is generalized. She states that it is slowly improving. She denies any fevers, chills, chest pain, palpitations, or shortness of breath. Review of Systems 10-point ROS is otherwise unremarkable General: Other (generalized pain) Physical Examination - Vital Signs Temperature: 97.0 F Blood Pressure: 111/55 Pulse: 83 Respirations: 16 Pulse Ox (%): 94 Assessment And Plan - Plan - Physical Exam General: Alert, In no apparent distress, Oriented x3 HEENT: Atraumatic, Mucous membr. moist/pink, Sclerae nonicteric Neck: JVD not distended Respiratory: Clear to auscultation bilaterally, without wheezes, rhonchi, or rales. Left-sided chest port noted. Cardiovascular: No edema, Regular rate/rhythm, No murmurs Gastrointestinal: Normal bowel sounds, Soft, Non-distended, No tenderness Musculoskeletal: No clubbing Integumentary: No rashes Neurological: Normal speech, Normal affect # Acute Sickle Cell Vaso-Occlusive Pain Crisis # Acute on Chronic Anemia due to above # Chronic Leukocytosis - suspect Reactive due to Pain She reports generalized body pain, similar to her prior episodes of sickle cell pain crisis. She reports prior history of acute chest syndrome "several years ago." - Evaluation thus far: - Presenting Hgb = 9.4 (near baseline) - Hemoglobin dropped to 6.5 and she received 1 units pRBCs - No thrombocytopenia or splenic tenderness to suggest splenic/hepatic sequestration - Reticulocyte count = 0.19 - Chest x-ray = "no acute cardiopulmonary process. No significant interval change." - Repeat chest x-ray (1-view) = "interstitial prominence is noted bilaterally, mild. The heart is upper limit normal in size. No displaced fractures.Left port catheter its tip in the SVC." - Repeat chest x-ray (2-view) = "mild bibasilar lung opacities may represent mild atelectasis" - Although clinically she does not appear to have acute chest syndrome, will obtain CT chest to evaluate given the mention of pulmonary opacities on x-ray - Management plan: - IV hydration Lactated Ringers' @ 100 mL/hr - Transition from IV hydromorphone to PO hydromorphone - Can utilize IV doses for breakthrough pain - Transition from IV methocarbamol to PO methocarbamol - Incentive spirometry - Continue home folic acid - Wanted to trial hydroxyurea - but she reports that she is intolerant to this # History of Pulmonary Embolism - Continue home apixaban Jimenez Salinas M.D.
--- NOTE | 2022-10-20 19:47 | RAD REPORT ---
EXAM DESCRIPTION: CT - Thorax Wo Con - 10/20/2022 7:36 pm CLINICAL HISTORY: evaluate for acute chest syndrome COMPARISON: Thorax Wo Con dated 08/01/2022; Thorax Wo Con dated 12/25/2021; CTANGIO CHEST FOR PE dated 08/07/2012 FINDINGS: Chest Wall: No suspicious thyroid nodules or pathologic lymphadenopathy. Left upper chest wall Port-A-Cath. Lungs: Cystic-type nodule right upper lobe is unchanged since 08/01/2022 and of doubtful significance . No acute process in the lungs identified. Small nonspecific subpleural nodular foci that are of yoko btful clinical significance are unchanged. Pleura: No significant effusions or pneumothorax. Mediastinum/oli: No pathologic lymphadenopathy. Pulmonary arteries/Aorta: Limited evaluation without contrast. No aortic aneurysm. Heart: No significant pericardial effusion. Normal heart size. Upper abdomen: No acute abnormality. Bladder splenectomy. Bones: No acute abnormality. All CT scans are performed using dose optimization technique as appropriate and may include automated exposure control or mA/KV adjustment according to patient size. IMPRESSION: No acute findings within the chest. Specifically, no edema or evidence of pneumonia is i dentified. Mild chronic lung changes.
[2022-10-21] MEDS: HYDROMORPHONE ORAL 4 MG TAB PO PRN ×3 (03:00→18:36)
[2022-10-21] MEDS: Ringers Lactate 1,000 ML IV SCH ×2 (04:38→14:52)
[2022-10-21] MEDS: methocarbamoL 500 MG TAB PO SCH ×3 (05:15→20:19)
[2022-10-21] MEDS ORDERED: HYDROMORPHONE HCL 1 MG/ML INJ IV ONE ×4 (05:19→20:36)
[2022-10-21] MEDS: DIPHENHYDRAMINE 50 MG/ML VIAL IV PRN ×3 (05:36→20:44)
[2022-10-21] MEDS: FOLIC ACID 1 MG TABLET PO SCH (09:01)
[2022-10-21] MEDS: APIXABAN 2.5 MG TABLET PO SCH ×2 (09:01→20:17)
--- NOTE | 2022-10-21 15:41 | P.PN ---
Subjective Date of Service: 10/21/22 Chief Complaint: Sickle Cell Crisis Overnight, she required several doses of IV hydromorphone. On rounds, she is sitting up eating breakfast and appears comfortable. She reports that her generalized pain remains at a 10/10 in severity. She reports that her pain is gradually improving when compared to admission. She denies any fevers, chills, chest pain, palpitations, or shortness of breath. Review of Systems 10-point ROS is otherwise unremarkable General: Other (generalized pain) Physical Examination - Vital Signs Temperature: 98.7 F Blood Pressure: 107/47 Pulse: 67 Respirations: 18 Pulse Ox (%): 94 Assessment And Plan - Plan - Physical Exam General: Alert, In no apparent distress, Oriented x3 HEENT: Atraumatic, Mucous membr. moist/pink, Sclerae nonicteric Neck: JVD not distended Respiratory: Clear to auscultation bilaterally, without wheezes, rhonchi, or rales. Left-sided chest port noted. Cardiovascular: No edema, Regular rate/rhythm, No murmurs Gastrointestinal: Soft, Non-distended, No tenderness Musculoskeletal: No clubbing Integumentary: No rashes Neurological: Normal speech, Normal affect # Acute Sickle Cell Vaso-Occlusive Pain Crisis # Acute on Chronic Anemia due to above # Chronic Leukocytosis - suspect Reactive due to Pain She reports generalized body pain, similar to her prior episodes of sickle cell pain crisis. She reports prior history of acute chest syndrome "several years ago." - Evaluation thus far: - Presenting Hgb = 9.4 (near baseline) - Hemoglobin dropped to 6.5 and she received 1 units pRBCs - No thrombocytopenia or splenic tenderness to suggest splenic/hepatic sequestration - Reticulocyte count = 0.19 - Chest x-ray = "no acute cardiopulmonary process. No significant interval change." - Repeat chest x-ray (1-view) = "interstitial prominence is noted bilaterally, mild. The heart is upper limit normal in size. No displaced fractures.Left port catheter its tip in the SVC." - Repeat chest x-ray (2-view) = "mild bibasilar lung opacities may represent mild atelectasis" - CT chest = "no acute findings within the chest. Specifically, no edema or evidence of pneumonia is identified. Mild chronic lung changes." - Management plan: - IV hydration Lactated Ringers' @ 100 mL/hr - Transition from IV hydromorphone to PO hydromorphone - Can utilize IV doses for breakthrough pain - Increased methocarbamol from 500 mg to 1000 mg - Incentive spirometry - Continue home folic acid - Wanted to trial hydroxyurea - but she reports that she is intolerant to this # History of Pulmonary Embolism - Continue home apixaban Jimenez Salinas M.D.
[2022-10-21] MEDS ORDERED: methocarbamoL 500 MG TAB PO SCH (16:00)
[2022-10-22] MEDS: Ringers Lactate 1,000 ML IV SCH ×2 (00:58→11:44)
[2022-10-22] MEDS: HYDROMORPHONE ORAL 4 MG TAB PO PRN (00:58)
[2022-10-22] MEDS ORDERED: HYDROMORPHONE HCL 1 MG/ML INJ IV ONE ×3 (03:13→13:45)
[2022-10-22] MEDS: methocarbamoL 500 MG TAB PO SCH ×2 (03:45→11:43)
[2022-10-22] MEDS: DIPHENHYDRAMINE 50 MG/ML VIAL IV PRN ×2 (03:46→09:05)
[2022-10-22 05:06] LABS: Absolute Lymphocytes (CBC) 3.5 K/uL (0.7-4.9); Hematocrit 22.9 % (36.0-45.0); Lymphocytes % 22.1 % (15.3-44.8); MCV 96.2 fL (80-100); RBC Red Blood Cell Count 2.38 M/uL (3.86-4.86)
[2022-10-22 05:21] LABS: Phosphorus 3.4 mg/dL (2.5-4.9)
[2022-10-22 05:37] LABS: Magnesium 1.7 mg/dL (1.6-2.4)
[2022-10-22] MEDS ORDERED: MAGNESIUM SULFATE 1 gm IVPB 1 GM/100 ML BAG IV ONE (07:26)
[2022-10-22] MEDS: FOLIC ACID 1 MG TABLET PO SCH (09:02)
[2022-10-22] MEDS: APIXABAN 2.5 MG TABLET PO SCH (09:14)
[2022-10-22 10:45] VITALS: BP 112/48; TEMP 98.8
[2022-10-22 12:18] VITALS: O2SAT 95
[2022-10-22] MEDS ORDERED: HEPARIN 500 UNIT/5 ML SYR IV PRN (14:26)
== END 2022-10-22 15:04 | disposition home or self-care (01) | DRG 812 ==
LOC: ER 21:15 → ERHOLD 23:27 → 2ND 10-13 00:10
PROVIDERS: ADMIT Internal Medicine Nephrology; ATTEND Hospitalist
PROC: 30233N1 Transfusion of Nonautologous Red Blood Cells into Peripheral Vein, Percutaneous Approach (ICD-10-PCS; principal; 2022-10-15)
DX: D57.00 Hb-SS disease with crisis, unspecified (principal); E86.1 Hypovolemia; D72.829 Elevated white blood cell count, unspecified; F17.200 Nicotine dependence, unspecified, uncomplicated; Z88.5 Allergy status to narcotic agent; Z88.1 Allergy status to other antibiotic agents; Z88.8 Allergy status to other drugs, medicaments and biological substances; Z79.899 Other long term (current) drug therapy; Z86.711 Personal history of pulmonary embolism; Z79.01 Long term (current) use of anticoagulants
CPT/HCPCS: 36415; 36430; 71045; 71046; 71250; 80048; 80076; 80307; 81001; 81025; 83605; 83735; 83880; 84100; 84132; 84484; 85014; 85018; 85025; 85044; 85610; 85660; 86850; 86900; 86901; 86902; 86920; 87040; 93005; 94010; 94760; 96374; 96375; 99285; J1170; J1200; J1642; J2550; J2800; J3475; J7030; J7050; J7120; P9016

== ENCOUNTER 2023-03-30 22:07 | Inpatient (IN) | payer OTHER ==
--- OUTSIDE RECORDS SUMMARY | 2023-03-30 22:17 | XMS REPORT | Continuity of Care Document ---
:1990 Author Organization [facility] t Address [address] [facility] [place]. [address] [place] [address] Support Name Relationship Address Phone VARUN ORTEGA Mother Unavailable REHAN CHEEMA Unavailable [id number] [facility] [phone] [place] [address] [phone] [place] [address] DENAE CHEEMA Unavailable [phone] MARIA M KENDRICK Unavailable [phone] Unavailable E Unavailable Unavailable Varun Ortega Other [id number] [phone] [place] [id number] CAMILLA ORTEGA Unavailable Unavailable Unavailable Katie Cheema Grandparent Unavailable MARÍA ELENA ORTEGA Unavailable [id number] [facility] [phone] [place] [address] NELDA ORTEGA Unavailable [address] [facility] [phone] [place] [address] MD AMY ALONZO JR Admitting Provider [address] [facility] [address] [place] [address] TRAY SIDDIQUI PA-C Primary Care Physician [address] [facility] [address] [place] [address] VIJAYA MULLEN MD TOKS A Emergency Provider [address] [facility] [address] [phone] [place] [address] NAIMA MULLEN, ORIANA Attending Provider [address] [phone] [place] [address] VARUN ORTEGA Next of Kin [address] [place] [address] IZZY MULLEN, CHAU Castellanos Emergency Provider 8 [facility] [address] [place] [address] PHYSICIAN, NO Primary Care Physician Unavailable Unavailab MD AMARILIS Jones MD Emergency Provider [address] [place] [address] OTHER, ENTER NAME IN Primary Care Physician Unavailable Unav ailable NOTES KIP MULLEN MD JENNIFER Emergency Provider [address] [place] [address] ISABELLA MULLEN MD [facility] Admitting Provider [address] [phone] [place] [address] MORIS FRANCIS Primary Care Physician [address] [place] [place] [address] MD RODNEY CROWE Emergency Provider [facility] [place] [address] MD TYLER WRIGHT Emergency Provider Unavailable Unavailable MD SAMUEL KUMAR Emergency Provider [address] [place] [address] MD [facility] Emergency Provider 104 [facility] [place] [address] VARUN [place]TEGA [address] [facility] [address] [phone] [place] [address] HIPOLITO MCBRIDE MO Unavailable ELHAM ORTEGA MO Unavailable ESTHER MCBRIDE [address] [phone] [place] [address] [address] [phone] [place] [address] Care Team Providers Name Role Phone KRYSTAL NASCIMENTODillan TOMAS Primary Care Physician Unavailable Doctor Unassigned, [place] Attending Clinician Unavailable Avelina Georges LVN Attending Clinician NOEMY REAVES Attending Clinician Unavailable Jesus Jara MD Attending Clinician Yolanda Lizarraga MD Attending Clinician Noemy Reaves MD Attending Clinician MATTHEW JARA Attending Clinician Unavailable KAIN RUFF Attending Clinician Unavailable ELLIE HERNANDEZ Attending Clinician Unavailable CLIFTON DASILVA Attending Clinician Unavailable MARCUS MI Attending Clinician Unavailable MAURICIO GRISSOM Attending Clinician Unavailable KRISTINA SAHNI Attending Clinician Unavailable Shanda MULLEN, Kym Attending Clinician Meenu Rodriguez MD Attending Clinician [phone] Kristina Sahni MD Attending Clinician AURORA GUTIERREZ Attending Clinician Unavailable RAHEL CORREA Attending Clinician Unavailable JENNIFER SHAH Attending Clinician Unavailable AAMIR MCCLOUD I Attending Clinician Unavailable ASHLEY WOODRUFF Attending Clinician Unavailable JESUS JARA Admitting Clinician Unavailable Jesus Jara MD Admitting Clinician AAMIR MCCLOUD I Admitting Clinician Unavailable ELIAS THOMPSON Admitting Clinician Unavailable VIVIANA CASTREJON Admitting Clinician Unavailable CLIFTON DASILVA Admitting Clinician Unavailable MEENU RODRIGUEZ Admitting Clinician Unavailable AURORA GUTIERREZ Admitting Clinician Unavailable ENRIQUE PEGUERO Admitting Clinician Unavailable EARL CARTER Admitting Clinician Unavailable Payers Payer Name Policy Type Policy Number Effective Date Expiration Date S Formerly [facility], 1928–1983 [id number] 2015 2024 STARPLUS OON 00:00:00 00:00:00 EXCEPT [facility] [id number] 2021 PLAN 00:00:00 Problems Condition Condition Condition Status Onset Resolution Last Treating Co mments Source Name Details Category Date Date Treatment Clinician Date Obesity Obesity Disease Active Univers (BMI (BMI 9-14 ity of 30-39.9) 30-39.9) 00:00: [address] 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Univers cell cell 9-09 ity of crisis crisis 00:00: [address] Leukocytos Leukocytos Disease Active [facility] 00[facility]: [address] Pneumonia Pneumonia Disease Active [facility] Center 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 00:00: Medical 00 [place] 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[facility] cell cell 2-28 [facility] crisis crisis 00:00: Medical 00 [place] 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[facility] cell cell 2-28 [facility] crisis crisis 00:00: Medical 00 Center Allergies, Adverse Reactions, Alerts Allergy Allergy Status Severity Reaction(s) Onset Inactive Treating Comm ents Source Name Type Date Date Clinician Ondanset Drug Active Nausea Univers rishabh Hcl Intolera and/or 01-19 ity of nce Vomiting 00:00: [place] 00 Medical Cecil MORPHINE DRUG Active High SOB 2022-0 Univers INGREDI 01-19 ity of 00:00: [place] [facility] ONDANSET DRUG Active High N/V 2022-0 Univers RISHABH HCL INGREDI 01-19 ity of 00:00: [place] 00 [facility] SULFA DRUG Active Med SOB 0 Univers DYNE 909 ity of 00:00: [place] 00 [facility] Morphine Drug Active Shortness of 0 Un dany Allergy Breath 01-19 ity of 00:00: [place] 00 [facility] Sulfa Propensi Active Shortness of 2022-0 Un dany Dyne ty to Breath 9-09 ity of adverse 00:00: [place] reaction 00 [facility] Fentanyl Propensi Active Shortness Of 2021-[address] ty to Breath 8-18 [facility] adverse 00:00: Medical reaction 00 [place] s Morphine Propensi Active Shortness Of 2021-[address] ty to Breath 8-18 [facility] adverse 00:00: Medical reaction 00 Center s Sulfa Propensi Active 2021-[address] (Sulfona ty to 8-18 [facility] mide adverse 00:00: Medical Antibiot reaction 00 Center ics) s FENTANYL Allergy Active High Sob 2021- [facility] 00[facility]00: Medical 00 Center MORPHINE Allergy Active High Sob 2021-[address] [facility] 8[facility]18 [facility] 00:00: Medical 00 [place] SULFA Allergy Active 2021-[address] (SULFONA 8-18 [facility] MIDE 00:00: Medical ANTIBIOT 00 Center ICS) Sulfa Propensi Active 2022-[address] (Sulfona ty to 18 [facility] mide adverse 00:00: Medical Antibiot reaction 00 Center ics) s Ondanset Drug Active Nausea And [facility] rishabh Hcl Intolera Vomiting 2- [facility] (Pf) nce 00:00: Medical 00 Center ONDANSET Allergy Active Low N\\T\\V SLEH RISHABH HCL 2-28 (PF) 00:00: 00 morphine DA Active [facility] 3[facility]11 [place] 00:00: d 00 Medical Center TEGEDERM DA Active [facility] DRESSING 8- [place] 00:[facility]: d 00 Medical Center Family History Family Member Diagnosis Comments Start Date Stop Date Source Natural brother Unremarkable [facility] Natural father Seizures [facility] Natural father Sickle cell trait [facility] Natural mother Sickle cell trait [facility] Natural sister Unremarkable [facility] Social History Social Habit Start Date Stop Date Quantity Comments Source Sexual orientation [facility] Gender identity [facility] y [facility] History SDOH [facility]-Med Medical [facility] Medical Ce nter Lived History of Social 2023-01-21 2023-01-21 Univers ity of function 00:00:00 00:00:00 [facility] History SDOH 2021-12-29 2021-12-[address] [facility] Transport Med 00:00:00 00:00:[address] History SDNJ 2021-12-29 2021-12-[address] [facility] Housing Unable to 00:00:00 00:00:00 Medical Center Pay History [facility] 2021-12-29 2021-12-[address] [facility] Housing Homeless 00:00:00 00:00:00 Medical Center Last Year Alcohol intake 2021-12-28 2021-12-[address] [facility] 00:00:00 00:00:00 non-drinker of Medical Ce nter alcohol (finding) Tobacco use and 2015-07-10 2015-07-[address] [facility] k[facility] exposure 00:00:00 00:00:00 tobacco non-user Medical Center Sex Assigned At [address] [facility] 00:00:00 00:00:00 Medical Center Smoking Status Start Date Stop Date Source Tobacco smoking consumption [facility] [place] [facility] Never smoked tobacco [facility] Medications Ordered Filled Start Stop Current Ordering Indication Dosage Frequency Signature Comments Components Source Medication Medication Date Date Medication? Clinician (SIG) Name Name heparin 2022-0 2022- No 5mL 500 Units Univ ers lock flush 01-25 (5 mL), IV it y of (HEPARIN 17:15: 16:31 Push, [place] LOCKFLUSH(P 00 :00 ONCE, 1 Medic al ORCINE)(PF) dose, On Bran ch ) 100 Fri unit/mL 01/25/23 at injection 1215, 500 Units Routine HYDROmorpho 2023-0 Yes 8mg Take 1 Univ ers ne 8 mg 9-15 tablet by ity of tablet 11:39: mouth [place] 42 every 6 Medical (six) Branch hours as needed for Pain (scale 4-6). foLIC acid 3-0 Yes 2mg Take 2 Unive rs 1 mg tablet 9-15 tablets by it y of 11:39: mouth in [place] 42 the Medical morning. Branch apixaban 2022-0 Yes 2.5mg Take 1 Univer s (ELIQUIS) 9-15 tablet by ity o f 2.5 mg 11:39: mouth in [place] tablet 42 the Medical morning Branch and 1 tablet in the evening. ALPRAZolam 2023-0 Yes 1mg Take 1 Unive rs 1 mg tablet 9-15 tablet by ity of 11:39: mouth 2 [place] 42 (two) Medical times Branch daily as needed for Anxiety. HYDROmorpho 2023-0 Yes 8mg Take 1 Univ ers ne 8 mg 9-15 tablet by ity of tablet 11:39: mouth [place] 42 every 6 Medical (six) Branch hours as needed for Pain (scale 4-6). foLIC acid 2023-0 Yes 2mg Take 2 Unive rs 1 mg tablet 9-15 tablets by it y of 11:39: mouth in [place] 42 the Medical morning. Branch apixaban 2023-0 Yes 2.5mg Take 1 Univer s (ELIQUIS) 9-15 tablet by ity o f 2.5 mg 11:39: mouth in [place] tablet 42 the Medical morning Branch and 1 tablet in the evening. ALPRAZolam 2023-0 Yes 1mg Take 1 Unive rs 1 mg tablet 9-15 tablet by ity of 11:39: mouth 2 [place] 42 (two) Medical times Branch daily as needed for Anxiety. HYDROmorpho 2022-0 Yes 8mg Take 1 Univ ers ne 8 mg 9-15 tablet by ity of tablet 11:39: mouth [place] 42 every 6 Medical (six) Branch hours as needed for Pain (scale 4-6). foLIC acid 2022-0 Yes 2mg Take 2 Unive rs 1 mg tablet 9-15 tablets by it y of 11:39: mouth in [place] 42 the Medical morning. Branch apixaban 2022-0 Yes 2.5mg Take 1 Univer s (ELIQUIS) 9-15 tablet by ity o f 2.5 mg 11:39: mouth in [place] tablet 42 the Medical morning Branch and 1 tablet in the evening. ALPRAZolam 2022-0 Yes 1mg Take 1 Unive rs 1 mg tablet 9-15 tablet by ity of 11:39: mouth 2 [place] 42 (two) Medical times Branch daily as needed for Anxiety. HYDROmorpho 2022-0 Yes 1mg 1 mg, Slow Univers ne 01-24 IV Push, ity of (DILAUDID) 21:15: Q8HPRN[place] injection 1 00 Starting Medi rita mg on Iman[place] Branch 01/24/23 at 1615, Until Discontinu ed, Routine, As needed pain scale 7 10, second line therapy must use oral narcotics first
U se approved by (Faculty): [facility] ketorolac 2022-0 2022- No 15mg 15 mg, Unive rs (TORADOL) 01-24 Slow IV ity of injection 11:00: 12:18 Push, [place] 15 mg 00 :00 ONCE, 1 Medical dose, On Branch Imani 01/24/23 at 0600, Routine HYDROmorpho 2022-0 2022- No 1mg 1 mg, Slow Univers ne 01-23 IV Push, ity of (DILAUDID) 06:38: 21:02 Q4HPRN, [place] as injection 1 03 :25 Starting Medi rita mg on Wed Branch 01/23/23 at 0138, Until Imani 01/24/23 at 1602, Routine, Pain (scale 7-10), Second line therapy
Use approved by (Faculty): [facility] HYDROmorpho Yes 4mg 4 mg, Unive rs ne 01-23 Oral, ity of (DILAUDID) 06:37: Q4HPRN, [place] tablet 4 mg 13 Starting Medi rita on Sat01/23/23 at 0137, Until Discontinu ed, Routine, psin scale 4-11 first line ketorolac 2022- No 15mg 15 mg, Unive rs (TORADOL) 01-22 Slow IV ity of injection 23:00: 10:59 Push, Q6H, [place] 15 mg 00 :00 6 doses, Medical First dose Branch on Sat01/22/23 at 1800, Last dose on Sat01/24/23 at 0000, Routine proMETHazin Yes 12.5mg 12.5 mg, Univers e 01-22 IV ity of (PHENERGAN) 15:19: Piggyback, [place] 12.5 mg in 31 at 200 Medical NaCl 0.9% mL/hr Branch (NS) 50 mL Administer IV over 15 piggyback Minutes, Q4HPRN, Starting on Sat01/22/23 at 1019, Until Discontinu ed, Routine, Nausea and Vomiting (N/V) HYDROmorpho 2022- No 1.5mg 1.5 mg, U nivers ne 01-21 Slow IV ity of (DILAUDID) 11:45: 06:38 Push, [place] injection 00 :25 Q4HPRN, Medical 1.5 mg Starting Branch on Sat01/21/23 at 0645, Until Sat01/23/23 at 0138, Routine, Pain (scale 7-10), Second line therapy
Use approved by (Faculty): [facility] HYDROcodone 2022- No 1{tbl} 1 tablet, Univers -acetaminop 01-21 Oral, ity of hen (NORCO) 11:41: 06:38 Q4HPRN, [place] 10-325 mg 10 :25 Starting Medica l tablet 1 on Sat Branch tablet 01/21/23 at 0641, Until Sat01/23/23 at 0138, Routine, Pain scale 4-10 first-line therapy HYDROmorpho 2022- No 1.5mg 1.5 mg, U nivers ne 01-20 Slow IV ity of (DILAUDID) 22:15: 11:42 Push, [place] injection 00 :30 Q3HPRN, Medical 1.5 mg Starting Branch on [place] 01/20/23 at 1715, Until 01/21/23 at 0642, Routine, Pain (scale 7-10)
U se approved by (Faculty): [facility] HYDROmorpho 2022- No 1mg 1 mg, Slow Univers ne 01-20 IV Push, ity of (DILAUDID) 05:00: 04:14 ONCE, 1 [place] as injection 1 00 :00 dose, On Medi rita mg [facility] 01/20/23 at 0000, Routine
Use approved by (Faculty): [facility] methocarbam Yes 500mg 500 mg, Un dany oL 01-19 Oral, Q6H, ity of (ROBAXIN) 17:00: First dose [place] tablet 500 00 on Sat Medical mg 01/19/23 at Branch 1200, Until Discontinu ed, Routine diphenhydrA Yes 25mg 25 mg, Univ ers MINE 01-19 Oral, ity of (BENADRYL) 15:08: Q6HPRN, [place] tablet 25 41 Starting Medica l mg on Sat Branch 01/19/23 at 1008, Until Discontinu ed, Routine, Itching oxyCODONE Yes 10mg 10 mg, Univer s CR 01-19 Oral, ity of (oxyCONTIN 14:45: Q12H, [place] CR) 12 hr 00 First dose Medi rita tablet 10 on Sat Branch mg 01/19/23 at 0945, Until Discontinu ed, Routine
swat team member approving Restricted medication : HARRY FAJARDO HYDROmorpho 2022- No 1.5mg 1.5 mg, U nivers ne 01-19 Slow IV ity of (DILAUDID) 14:30: 22:05 Push, [place] injection 06 :49 Q4HPRN, Medical 1.5 mg Starting Branch on [facility] 01/19/23 at 0930, Until 01/20/23 at 1705, Routine, Pain (scale 7-10)
U se approved by (Faculty): [facility] HYDROcodone 0 2022- No 1{tbl} 1 tablet, Univers -acetaminop 01-19 Oral, ity of hen (NORCO) 14:29: 11:42 Q4HPRN, [place] 10-325 mg 35 :30 Starting Medica l tablet 1 on [facility] Branch tablet 01/19/23 at 0929, Until 01/21/23 at 0642, Routine, Pain (scale 4-6) foLIC acid Yes 2mg 2 mg, Univer s (FOLATE) 01-19 Oral, ity of tablet 2 mg 14:00: DAILY, [place] 00 First dose Medical on [facility] Branch 01/19/23 at 0900, Until Discontinu ed, Routine apixaban Yes 2.5mg 2.5 mg, Unive rs (ELIQUIS) 01-19 Oral, BID, ity of tablet 2.5 13:00: First dose [place] mg 00 on [facility] Medical 01/19/23 at Branch 0800, Until Discontinu ed, Routine
Indicatio ns: DVT/PE ALPRAZolam Yes 1mg 1 mg, Univer s (XANAX) 01-19 Oral, ity of tablet 1 mg 10:00: BIDPRN, [place] as 44 Starting Medical on [facility] Branch 01/19/23 at 0500, Until Discontinu ed, Routine, Anxiety HYDROmorpho 2022- No 8mg 8 mg, Univ ers ne 01-19 Oral, ity of (DILAUDID) 09:59: 14:30 Q4HPRN, [place] as tablet 8 mg 10 :24 Starting Medi rita on [facility] Branch 01/19/23 at 0459, Until 01/19/23 at 0930, Routine, Pain (scale 4-6) NaCl 0.9% 2022-0 Yes 1000mL at 125 Univ ers (NS) IV 01-19 mL/hr, IV ity of infusion 09:45: [place]fusion, [place] 1,000 mL 00 CONTINUOUS Medic al , Starting Branch on 01/19/23 at 0445, Until Discontinu ed, Routine HYDROmorpho 2022-0 2022- No 1mg 1 mg, Slow Univers ne 01-19 IV Push, ity of (DILAUDID) 09:39: 14:30 Q4HPRN, [place] injection 1 04 :24 Starting Medi rita mg on Sat Branch 01/19/23 at 0439, Until 01/19/23 at 0930, Routine, Pain (scale 7-10)
U se approved by (Faculty): [facility] ondansetron 0 2022- No 4mg 4 mg, Slow Univers (ZOFRAN 01-19 IV Push, ity of (PF)) 09:38: 15:21 Q6HPRN, [place] injection 4 19 :21 Starting Medi rita mg on Sat Branch 01/19/23 at 0438, Until 01/22/23 at 1021, Routine, Nausea and Vomiting (N/V) acetaminoph Yes 650mg 650 mg, Un dany en 01-19 Oral, ity of (TYLENOL) 09:38: Q6HPRN, [place] tablet 650 04 Starting Medic al mg on Sat Branch 01/19/23 at 0438, Until Discontinu ed, Routine, Pain (scale 1-3) folic acid 0 Yes folate 2mg QD [...] 15:59: daily. Medica l 55 Center penicillin 2022-0 Yes 250mg Take [address] [...] 15:59: daily. Medica l 55 Center penicillin 2022-0 Yes 250mg Take [address] [...] mouth once Medi rita 00 a week. [place] VITAMIN D2 2018- Yes 1{capsu Q7D Take [address] [facility],000 unit 2-25 le} capsule by Ariana kes capsule 00:00: mouth once Medi rita 00 a week. [place] VITAMIN D2 2018-0 Yes 1{capsu Q7D Take [address] [facility],000 unit 2-25 le} capsule by Ariana kes capsule 00:00: mouth once Medi rita 00 a week. [place] VITAMIN D2 2018- Yes 1{capsu Q7D Take [address] [facility],000 unit 2-25 le} capsule by Ariana kes capsule 00:00: mouth once Medi rita 00 a week. [place] VITAMIN D2 0 Yes 1{capsu Q7D Take [address] [facility],000 unit 2-25 le} capsule by Ariana kes capsule 00:00: mouth once Medi rita 00 a week. [place] VITAMIN D2 2018-0 Yes 1{capsu Q7D Take [address] [facility],000 unit 2-25 le} capsule by Ariana kes capsule 00:00: mouth once Medi rita 00 a week. [place] VITAMIN D2 2018-0 Yes 1{capsu Q7D Take [address] [facility],000 unit 2-25 le} capsule by Ariana kes capsule 00:00: mouth once Medi rita 00 a week. [place] VITAMIN D2 2018-0 Yes 1{capsu Q7D Take [address] [facility],000 unit 2-25 le} capsule by Ariana kes capsule 00:00: mouth once Medi rita 00 a week. [place] VITAMIN D2 2018-0 Yes 1{capsu Q7D Take [address] [facility],000 unit 2-25 le} capsule by Ariana kes capsule 00:00: mouth once Medi rita 00 a week. [place] VITAMIN D2 2019-0 Yes 1{capsu Q7D Take [address] [facility],000 unit 2-25 le} capsule by Ariana kes capsule 00:00: mouth once Medi rita 00 a week. [place] VITAMIN D2 2019-0 Yes 1{capsu Q7D Take [address] [facility],000 unit 2-25 le} capsule by Ariana kes capsule 00:00: mouth once Medi rita 00 a week. [place] VITAMIN D2 2019-0 Yes 1{capsu Q7D Take [address] [facility],000 unit 2-25 le} capsule by Ariana kes capsule 00:00: mouth once Medi rita 00 a week. [place] VITAMIN D2 2019-0 Yes 1{capsu Q7D Take [address] [facility],000 unit 2-25 le} capsule by Ariana kes capsule 00:00: mouth once Medi rita 00 a week. [place] VITAMIN D2 2019-0 Yes 1{capsu Q7D Take [address] [facility],000 unit 2-25 le} capsule by Ariana kes capsule 00:00: mouth once Medi rita 00 a week. [place] VITAMIN D2 2019-0 Yes 1{capsu Q7D Take [address] [facility],000 unit 2-25 le} capsule by Ariana kes capsule 00:00: mouth once Medi rita 00 a week. [place] VITAMIN D2 2019-0 Yes 1{capsu Q7D Take [address] [facility],000 unit 2-25 le} capsule by Ariana kes capsule 00:00: mouth once Medi rita 00 a week. [place] VITAMIN D2 2019-0 Yes 1{capsu Q7D Take [address] [facility],000 unit 2-25 le} capsule by Ariana kes capsule 00:00: mouth once Medi rita 00 a week. [place] VITAMIN D2 2019-0 Yes 1{capsu Q7D Take [address] 50,000 unit 2-25 le} capsule by Ariana kes capsule 00:00: mouth once Medi rita 00 a week. [place] VITAMIN D2 2019-0 Yes 1{capsu Q7D Take [address] [facility],000 unit 2-25 le} capsule by Ariana kes capsule 00:00: mouth once Medi rita 00 a week. [place] VITAMIN D2 2019-0 Yes 1{capsu Q7D Take [address] [facility],000 unit 2-25 le} capsule by Ariana kes capsule 00:00: mouth once Medi rita 00 a week. [place] PROAIR HFA Yes 1{puff} Inhale 1 [facility] [...] Name Observation Time Observation Value Comments Source Systolic blood 2023-01-25 12:26:00 129 mm[Hg] Univer [facility] Diastolic blood 2023-01-25 12:26:00 69 [facility]Hg[facility] 2023-01-25 12:26:00 69 /min [facility] Body temperature 2023-01-25 12:26:00 36.67 [place] [facility] Respiratory rate 2023-01-25 12:26:00 18 /min [facility] Oxygen saturation in 2023-01-25 12:26:00 93 /min [facility] Arterial blood by [facility] Pulse oximetry Branch Body weight 2023-01-25 08:17:00 77.52 kg [facility] BMI 2023-01-25 08:17:00 31.26 kg/m2 [facility] Body height 2023-01-19 09:20:00 157.5 cm [facility] WEIGHT 2022-01-03 05:27:00 72.485 kg WEIGHT 2022-01-02 [...] kg Systolic blood 2022-01-03 15:29:00 124 mm[Hg] [facility] Diastolic blood 2022-01-03 15:29:00 58 mm[Hg] [facility] Heart rate 2022-01-03 15:29:00 106 /min [facility] Body temperature 2022-01-03 15:29:00 36.11 [place] [facility] Respiratory rate 2022-01-03 15:29:00 20 /min [facility] Oxygen saturation in 2022-01-03 15:29:00 93 /min [facility] Arterial blood by Medical Ce nter Pulse oximetry Body weight 2022-01-03 05:27:00 72.485 kg [facility] BMI 2022-01-03 05:27:00 29.23 kg/m2 [facility] Body height 2021-12-28 22:08:00 157.5 cm [facility] Procedures Procedure Date / Time Performing Clinician Source Performed EXTERNAL PROVIDER 2023-01-30 05:01:00 Doctor Unassigned, No Univ [facility] RECORDS Name Medical Branch BASIC METABOLIC PANEL 2023-01-25 10:54:00 Carolina Rosa [facility] (NA, K, CL, CO2, Medical Branch GLUCOSE, BUN, CREATININE, CA) CBC WITHOUT DIFF 2023-01-25 10:54:00 Sergey Valenzuela [facility] HB INDIRECT ANTIGLOBULIN 2023-01-25 10:54:00 Carolina Rosa [facility] TEST [facility] CBC WITHOUT DIFF 2023-01-24 11:00:00 Sergey Valenzuela [facility] CBC WITH DIFF 2023-01-23 09:37:00 Zia [facility] PHOSPHORUS 2023-01-22 11:12:00 Zia [facility] MAGNESIUM 2023-01-22 11:12:00 Zia [facility] BASIC METABOLIC PANEL 2023-01-22 11:12:00 Carrie [facility] (NA, K, CL, CO2, Medical Branch GLUCOSE, BUN, CREATININE, CA) CBC WITH DIFF 2023-01-22 11:12:00 Carrie [facility] TEST, URINE 2023-01-22 02:45:00 Moe [facility] XR CHEST 2 VW 2023-01-21 22:04:00 Moe [facility] BASIC METABOLIC PANEL 2023-01-21 10:55:00 Carrie [facility] (NA, K, CL, CO2, [facility] GLUCOSE, BUN, CREATININE, CA) CBC WITH DIFF 2023-01-21 10:55:00 Carrie [facility] RETICULOCYTES AUTOMATED 2023-01-21 10:55:00 Moe [facility] COMP. METABOLIC PANEL 2023-01-20 10:15[id number] CBC WITHOUT DIFF 2023-01-20 10:15:00 Papi [facility] HEPATIC FUNCTION PANEL 2023-01-19 09:58:00 Papi [facility] ([id number]) (ALB,T.PRO,BILI Medical Branch T,BU/BC,ALT,AST,ALK PHOS) BASIC METABOLIC PANEL 2023-01-19 09:58:[facility] ([facility], K, CL, CO2, Medical Branch GLUCOSE, BUN, CREATININE, CA) CBC WITH DIFF 2023-01-19 09:58:00 [facility] PROTHROMBIN TIME / INR 2023-01-19 09:58:00 Papi [facility] ACTIVATED PARTIAL 2023-01-19 09:58:00 Papi [facility] RETICULOCYTES AUTOMATED 2023-01-19 09:58:00 Papi [facility] BLOOD CULTURE 2022-01-03 09:49:00 [place], [facility] CBC W/PLT COUNT & AUTO 2022-01-03 03:49:00 [place], [facility] DIFFERENTIAL [place] BASIC METABOLIC PANEL 2022-01-03 03:49:00 [place], [facility] CBC W/PLT COUNT & AUTO 2022-01-03 03:49:00 B[place], [facility] DIFFERENTIAL Center (CELLAVISION MANUAL 2022-01-03 03:49:00 B[place], [facility] Medical DIFF) Center SARS-COV2/RT-PCR ([facility] 2022-01-02 21:11:00 Rosio oPllack [facility] REF LABS) [facility] CBC W/PLT COUNT & AUTO 2022-01-02 03:16:00 [place], [facility] DIFFERENTIAL Center BASIC METABOLIC PANEL 2022-01-02 03:16:00 B[place], [facility] CBC W/PLT COUNT & AUTO 2022-01-02 03:16:00 B[place], [facility] DIFFERENTIAL Center (CELLAVISION MANUAL 2022-01-02 03:16:00 B[place], [facility] Medical DIFF) Center CBC W/PLT COUNT & AUTO 2021-12-31 09:48:00 B[place], [facility] DIFFERENTIAL Center BASIC METABOLIC PANEL 2021-12-31 09:48:00 B[place], [facility] CBC W/PLT COUNT & AUTO 2021-12-31 09:48:00 B[place], [facility] DIFFERENTIAL Center (CELLAVISION MANUAL 2021-12-31 09:48:00 B[place], [facility] DIFF Center BASIC METABOLIC PANEL 2021-12-30 02:41:00 PollackRosio CH I [facility] HEPATIC FUNCTION PANEL 2021-12-30 02:41:00 PollackRosio Checo HI [facility] MAGNESIUM 2021-12-30 02:41:00 PollackRosio [facility] CBC W/PLT COUNT & AUTO 2021-12-30 02:41:00 PollackRosio Checo HI [facility] DIFFERENTIAL [facility] CBC W/PLT COUNT & AUTO 2021-12-30 02:41:00 PollackRosio Checo HI [facility] DIFFERENTIAL [facility] (CELLAVISION MANUAL 2021-12-30 02:41:00 Ranjeet Rosio Bhakta [facility] DIFF) [facility] SARS-COV2/RT-PCR ([facility] 2021-12-29 13:19:00 Ranjeet Rsoio Bhakta [facility] REF LABS) [facility] 2D ECHO W/ DOPPLER 2021-12-29 10:56:17 PollackRosio [facility] (CW/PW/COLOR) [facility] 2D ECHO W/ DOPPLER 2021-12-29 10:56:17 Ranjeet Rosio Bhakta [facility] (CW/PW/COLOR) [facility] ECG 12-LEAD 2021-12-29 04:52:19 Ranjeet Rosio Bhakta [facility] ECG 12-LEAD 2021-12-29 04:52:19 Unknown, [facility] ECG 12-LEAD 2021-12-29 04:50:49 Unknown, [facility] BASIC METABOLIC PANEL 2021-12-29 04:50:00 RanjeetRosio CH [facility] HEPATIC FUNCTION PANEL 2021-12-29 04:50:00 Ranjeet Rosio Bhakta Checo [facility] MAGNESIUM 2021-12-29 04:50:00 Ranjeet Rosio Bhakta [facility] CBC W/PLT COUNT & AUTO 2021-12-29 04:50:00 Rosio Pollack [facility] DIFFERENTIAL [facility] CBC W/PLT COUNT & AUTO 2021-12-29 04:50:00 Rosio Pollack [facility] DIFFERENTIAL [facility] (CELLAVISION MANUAL 2021-12-29 04:50:00 Rosio Pollack [facility] DIFF) [facility] SCREEN, URINE 2021-12-29 01:52:00 Rosio Pollack [facility] BASIC METABOLIC PANEL 2021-12-28 23:44:00 Rosio Pollack CH I [facility] HEPATIC FUNCTION PANEL 2021-12-28 23:44:00 Rosio Pollack [facility] MAGNESIUM 2021-12-28 23:44:00 Rosio Pollack [facility] PHOSPHORUS 2021-12-28 23:44:00 Rosio Pollack [facility] TSH/FREE T4 IF INDICATED 2021-12-28 23:44:00 Rosio Pollack [facility] B-TYPE NATRIURETIC 2021-12-28 23:44:00 Rosio Pollack [facility] FACTOR (BNP) [facility] CBC W/PLT COUNT & AUTO 2021-12-28 23:44:00 Rosio Pollack [facility] DIFFERENTIAL [facility] PROTHROMBIN TIME/INR 2021-12-28 23:44:00 Rosio Pollack [facility] TYPE AND SCREEN, 2021-12-28 23:44:00 Rosio Pollack [facility] AUTOMATED [facility] CBC W/PLT COUNT & AUTO 2021-12-28 23:44:00 Rosio Pollack [facility] DIFFERENTIAL [facility] (CELLAVISION MANUAL 2021-12-28 23:44:00 Rosio Pollack [facility] DIFF) [facility] XR CHEST 1 VIEW PORTABLE 2021-12-28 23:31:00 Rosio Pollack [facility] / BEDSIDE [facility] HEPATITIS B SURFACE 2021-09-26 05:00:00 [facility] HEPATITIS A ANTIBODY, 2021-09-26 05:00:00 [facility] HEPATITIS C ANTIBODY 2021-09-26 05:00:00 [facility] HEPATITIS B CORE 2021-09-26 05:00:00 [facility] ANTIBODY, TOTAL Center HEPATITIS B SURFACE 2021-09-24 21:59:00 [facility] ANTIGEN [place]oyers HEPATITIS B CORE 2021-09-24 21:59:00 [facility] ANTIBODY, I[facility] Center HEPATITIS A ANTIBODY, 2021-09-24 21:59:00 [facility] HEPATITIS C ANTIBODY 2021-09-24 21:59:00 [facility] HEPATITIS PANEL, ACUTE 2021-09-24 21:59:00 [facility] Plan of Care Planned Activity Planned Date Details Comments Source Future Scheduled 2023-01-11 Influenza Vaccine (#1) [facility] [code = Influenza Vaccine Me dical Center (#1)] Future Scheduled 2023-01-11 INFLUENZA VACCINE (Season [facility] 00:00:00 Ended) [code = INFLUENZA Med ical Center VACCINE (Season Ended)] Future Scheduled 2023-01-11 INFLUENZA VACCINE (Season [facility] 00:00:00 Ended) [code = INFLUENZA Med ical Center VACCINE (Season Ended)] Future Scheduled 2023-01-11 INFLUENZA VACCINE (Season [facility] 00:00:00 Ended) [code = INFLUENZA Med ical Center VACCINE (Season Ended)] Future Scheduled 2023-01-11 Influenza Vaccine (#1) [facility] 00:00:00 [code = Influenza Vaccine Me dical Center (#1)] Future Scheduled 2023-01-11 Influenza Vaccine (#1) [facility] 00:00:00 [code = Influenza Vaccine Me dical Center (#1)] Future Scheduled 2022-12-[address] [facility] 00:00:00 Counseling and Screening Med ical Center (12+) [code = Tobacco Cessation Counseling and Screening (12+)] Future Scheduled 2022-12-[address] [facility] 00:00:00 Counseling and Screening Med ical Center (12+) [code = Tobacco Cessation Counseling and Screening (12+)] Future Scheduled 2022-12-[address] [facility] 00:00:00 Counseling and Screening Med ical Center (12+) [code = Tobacco Cessation Counseling and Screening (12+)] Future Scheduled 2022-12-[address] [facility] 00:00:00 Counseling and Screening Med ical Center (12+) [code = Tobacco Cessation Counseling and Screening (12+)] Future Scheduled 2022-12-[address] [facility] 00:00:00 Counseling and Screening Med ical Center (12+) [code = Tobacco Cessation Counseling and Screening (12+)] Future Scheduled 2022-12-[address] [facility] 00:00:00 Counseling and Screening Med ical Center (12+) [code = Tobacco Cessation Counseling and Screening (12+)] Future Scheduled 2022-12-[address] [facility] 00:00:00 Counseling and Screening Med ical Center (12+) [code = Tobacco Cessation Counseling and Screening (12+)] Future Scheduled 2022-12-[address] [facility] 00:00:00 Counseling and Screening Med ical Center (12+) [code = Tobacco Cessation Counseling and Screening (12+)] Future Scheduled 2022-12-[address] [facility] 00:00:00 Counseling and Screening Med ical Center (12+) [code = Tobacco Cessation Counseling and Screening (12+)] Future Scheduled 2022-12-[address] [facility] 00:00:00 Counseling and Screening Med ical Center (12+) [code = Tobacco Cessation Counseling and Screening (12+)] Future Scheduled 2022-12-[address] [facility] 00:00:00 Counseling and Screening Med ical Center (12+) [code = Tobacco Cessation Counseling and Screening (12+)] Future Scheduled 2022-05-[address] [facility] 00:00:00 (12+) [code = DEPRESSION Med ical Center SCREENING (12+)] Future Scheduled 2022-05-[address] [facility] 00:00:00 (12+) [code = DEPRESSION Med ical Center SCREENING (12+)] Future Scheduled 2022-05-[address] [facility] 00:00:00 (12+) [code = DEPRESSION Med ical Center SCREENING (12+)] Future Scheduled 2022-05-[address] [facility] 00:00:00 (12+) [code = DEPRESSION Med ical Center SCREENING (12+)] Future Scheduled 2022-05-[address] [facility] 00:00:00 (12+) [code = DEPRESSION Med ical Center SCREENING (12+)] Future Scheduled 2022-05-[address] [facility] 00:00:00 (12+) [code = DEPRESSION Med ical Center SCREENING (12+)] Future Scheduled 2022-05-[address] [facility] 00:00:00 (12+) [code = DEPRESSION Med ical Center SCREENING (12+)] Future Scheduled 2022-05-[address] [facility] 00:00:00 (12+) [code = DEPRESSION Med ical Center SCREENING (12+)] Future Scheduled 2022-05-[address] [facility] 00:00:00 (12+) [code = DEPRESSION Med ical Center SCREENING (12+)] Future Scheduled 2022-05-[address] [facility] 00:00:00 (12+) [code = DEPRESSION Med ical Center SCREENING (12+)] Future Scheduled 2022-01-11 INFLUENZA VACCINE (#1) [facility] 00:00:00 [code = INFLUENZA VACCINE Me dical Center (#1)] Future Scheduled 2022-01-11 INFLUENZA VACCINE (#1) [facility] 00:00:00 [code = INFLUENZA VACCINE Me dical Center (#1)] Future Scheduled 2022-01-11 INFLUENZA VACCINE (#1) [facility] 00:00:00 [code = INFLUENZA VACCINE Me dical Center (#1)] Future Scheduled 2022-01-11 INFLUENZA VACCINE (#1) [facility] 00:00:00 [code = INFLUENZA VACCINE Me dical Center (#1)] Future Scheduled 2022-01-11 INFLUENZA VACCINE (#1) [facility] 00:00:00 [code = INFLUENZA VACCINE Me dical Center (#1)] Future Scheduled 2022-01-11 INFLUENZA VACCINE (#1) [facility] 00:00:00 [code = INFLUENZA VACCINE Me dical Center (#1)] Future Scheduled 2022-01-11 INFLUENZA VACCINE (#1) [facility] 00:00:00 [code = INFLUENZA VACCINE Me dical Center (#1)] Future Scheduled 2022-01-11 INFLUENZA VACCINE (#1) [facility] 00:00:00 [code = INFLUENZA VACCINE Me dical Center (#1)] Future Scheduled 2022-01-11 INFLUENZA VACCINE (#1) [facility] 00:00:00 [code = INFLUENZA VACCINE Me dical Center (#1)] Future Scheduled 2021-01-11 INFLUENZA VACCINE (#1) [facility] 00:00:00 [code = INFLUENZA VACCINE Me dical Center (#1)] Future Scheduled 2021-01-11 INFLUENZA VACCINE (#1) [facility] 00:00:00 [code = INFLUENZA VACCINE Me dical Center (#1)] Future Scheduled 2020-05-[address] [facility] 00:00:00 (12+) [code = DEPRESSION Med ical Center SCREENING (12+)] Future Scheduled 2020-05-[address] [facility] 00:00:00 (12+) [code = DEPRESSION Med ical Center SCREENING (12+)] Future Scheduled 2020-01-12 INFLUENZA VACCINE (#1) [facility] 00:00:00 [code = INFLUENZA VACCINE Me dical Center (#1)] Future Scheduled 2020-01-12 INFLUENZA VACCINE (#1) [facility] 00:00:00 [code = INFLUENZA VACCINE Me dical Center (#1)] Future Scheduled 2020-01-12 INFLUENZA VACCINE (#1) [facility] 00:00:00 [code = INFLUENZA VACCINE Me dical Center (#1)] Future Scheduled 2012-09-05 Screening for malignant [facility] 00:00:00 neoplasm of cervix Medical C enter (procedure) [code = 464975818] Future Scheduled 2012-09-05 Screening for malignant [facility] 00:00:00 neoplasm of cervix Medical C enter (procedure) [code = 485205059] Future Scheduled 2012-09-05 Screening for malignant [facility] 00:00:00 neoplasm of cervix Medical C enter (procedure) [code = 643902670] Future Scheduled 2012-09-05 Screening for malignant [facility] 00:00:00 neoplasm of cervix Medical C enter (procedure) [code = 675688420] Future Scheduled 2012-09-05 Screening for malignant [facility] 00:00:00 neoplasm of cervix Medical C enter (procedure) [code = 228474352] Future Scheduled 2012-09-05 Screening for malignant [facility] 00:00:00 neoplasm of cervix Medical C enter (procedure) [code = 536970104] Future Scheduled 2012-09-05 Screening for malignant [facility] 00:00:00 neoplasm of cervix Medical C enter (procedure) [code = 655847783] Future Scheduled 2012-09-05 Screening for malignant [facility] 00:00:00 neoplasm of cervix Medical C enter (procedure) [code = 323431545] Future Scheduled 2012-09-05 Screening for malignant [facility] 00:00:00 neoplasm of cervix Medical C enter (procedure) [code = 478435860] Future Scheduled 2012-09-05 Screening for malignant [facility] 00:00:00 neoplasm of cervix Medical C enter (procedure) [code = 588763358] Future Scheduled 2012-09-05 Screening for malignant [facility] 00:00:00 neoplasm of cervix Medical C enter (procedure) [code = 732277447] Future Scheduled 2012-09-05 Screening for malignant [facility] 00:00:00 neoplasm of cervix Medical C enter (procedure) [code = 216133845] Future Scheduled 2012-09-05 Screening for malignant [facility] 00:00:00 neoplasm of cervix Medical C enter (procedure) [code = 555106044] Future Scheduled 2012-09-05 Screening for malignant [facility] 00:00:00 neoplasm of cervix Medical C enter (procedure) [code = 653266499] Future Scheduled 2012-09-05 Screening for malignant [facility] 00:00:00 neoplasm of cervix Medical C enter (procedure) [code = 366462356] Future Scheduled 2012-09-05 Screening for malignant [facility] 00:00:00 neoplasm of cervix Medical C enter (procedure) [code = 870472044] Future Scheduled 2012-09-05 Screening for malignant [facility] 00:00:00 neoplasm of cervix Medical C enter (procedure) [code = 720518360] Future Scheduled 2012-09-05 Screening for malignant [facility] 00:00:00 neoplasm of cervix Medical C enter (procedure) [code = 373990937] Future Scheduled 2012-09-05 Screening for malignant [facility] 00:00:00 neoplasm of cervix Medical C enter (procedure) [code = 914180721] Future Scheduled 2012-09-05 Screening for malignant [facility] 00:00:00 neoplasm of cervix Medical C enter (procedure) [code = 978733757] Future Scheduled 2011 Lipid panel (procedure) [facility] 00:00:00 [code = 89971574] Medical Ce nter Future Scheduled 2011 Lipid panel (procedure) [facility] 00:00:00 [code = 90875878] Medical Ce nter Future Scheduled 2011 Lipid panel (procedure) [facility] 00:00:00 [code = 12940176] Medical Ce nter Future Scheduled 2011 Lipid panel (procedure) [facility] 00:00:00 [code = 22076705] Medical Ce nter Future Scheduled 2011 Lipid panel (procedure) [facility] 00:00:00 [code = 48369909] Medical Ce nter Future Scheduled 2010-09-05 DTAP/TDAP/TD VACCINES ([address] [facility] 00:00:00 - Tdap) [code = Medical Cent er DTAP/TDAP/TD VACCINES (1 - Tdap)] Future Scheduled 2010-09-05 DTAP/TDAP/TD VACCINES ([address] [facility] 00:00:00 - Tdap) [code = Medical Cent er DTAP/TDAP/TD VACCINES (1 - Tdap)] Future Scheduled 2010-09-05 DTAP/TDAP/TD VACCINES ([address] [facility] 00:00:00 - Tdap) [code = Medical Cent er DTAP/TDAP/TD VACCINES (1 - Tdap)] Future Scheduled 2010-09-05 DTAP/TDAP/TD VACCINES ([address] [facility] 00:00:00 - Tdap) [code = Medical Cent er DTAP/TDAP/TD VACCINES (1 - Tdap)] Future Scheduled 2010-09-05 DTAP/TDAP/TD VACCINES ([address] [facility] 00:00:00 - Tdap) [code = Medical Cent er DTAP/TDAP/TD VACCINES (1 - Tdap)] Future Scheduled 2010-09-05 DTAP/TDAP/TD VACCINES ([address] [facility] 00:00:00 - Tdap) [code = Medical Cent er DTAP/TDAP/TD VACCINES (1 - Tdap)] Future Scheduled 2010-09-05 DTAP/TDAP/TD VACCINES ([address] [facility] 00:00:00 - Tdap) [code = Medical Cent er DTAP/TDAP/TD VACCINES (1 - Tdap)] Future Scheduled 2010-09-05 DTAP/TDAP/TD VACCINES ([address] [facility] 00:00:00 - Tdap) [code = Medical Cent er DTAP/TDAP/TD VACCINES (1 - Tdap)] Future Scheduled 2010-09-05 DTAP/TDAP/TD VACCINES ([address] [facility] 00:00:00 - Tdap) [code = Medical Cent er DTAP/TDAP/TD VACCINES (1 - Tdap)] Future Scheduled 2010-09-05 DTAP/TDAP/TD VACCINES ([address] [facility] 00:00:00 - Tdap) [code = Medical Cent er DTAP/TDAP/TD VACCINES (1 - Tdap)] Future Scheduled 2010-09-05 DTAP/TDAP/TD VACCINES ([address] [facility] 00:00:00 - Tdap) [code = Medical Cent er DTAP/TDAP/TD VACCINES (1 - Tdap)] Future Scheduled 2010-09-05 DTAP/TDAP/TD VACCINES ([address] [facility] 00:00:00 - Tdap) [code = Medical Cent er DTAP/TDAP/TD VACCINES (1 - Tdap)] Future Scheduled 2010-09-05 DTAP/TDAP/TD VACCINES ([address] [facility] 00:00:00 - Tdap) [code = Medical Cent er DTAP/TDAP/TD VACCINES (1 - Tdap)] Future Scheduled 2010-09-05 DTAP/TDAP/TD VACCINES ([address] [facility] 00:00:00 - Tdap) [code = Medical Cent er DTAP/TDAP/TD VACCINES (1 - Tdap)] Future Scheduled 2010-09-05 DTAP/TDAP/TD VACCINES ([address] [facility] 00:00:00 - Tdap) [code = Medical Cent er DTAP/TDAP/TD VACCINES (1 - Tdap)] Future Scheduled 2010-09-05 DTAP/TDAP/TD VACCINES ([address] [facility] 00:00:00 - Tdap) [code = Medical Cent er DTAP/TDAP/TD VACCINES (1 - Tdap)] Future Scheduled 2010-09-05 DTAP/TDAP/TD VACCINES ([address] [facility] 00:00:00 - Tdap) [code = Medical Cent er DTAP/TDAP/TD VACCINES (1 - Tdap)] Future Scheduled 2006-09-[address] Human immunodeficiency [facility] 00:00:00 virus screening Medical Cent er (procedure) [code = [id number]] Future Scheduled 2003 COVID-19 VACCINE (1) [facility] 00:00:00 [code = COVID-19 VACCINE Med ical Center (1)] Future Scheduled 2003 COVID-19 VACCINE (1) [facility] 00:00:00 [code = COVID-19 VACCINE Med ical Center (1)] Future Scheduled 1997-09-05 Pneumococcal Vaccine: [facility] 00:00:00 0-64 Years (1 - PCV) Medical Center [code = Pneumococcal Vaccine: 0-64 Years (1 - PCV)] Future Scheduled 1997-09-05 PNEUMOCOCCAL VACCINE 0-[address] [facility] 00:00:00 YRS (1 of 3 - PCV13) Medical Center [code = PNEUMOCOCCAL VACCINE 0-64 YRS (1 of 3 - PCV13)] Future Scheduled 1997-09-05 PNEUMOCOCCAL VACCINE 0-[address] [facility] 00:00:00 YRS (1 - PCV) [code = Medica l Center PNEUMOCOCCAL VACCINE 0-64 YRS (1 - PCV)] Future Scheduled 1997-09-05 PNEUMOCOCCAL VACCINE 0-[address] [facility] 00:00:00 YRS (1 - PCV) [code = Medica l Center PNEUMOCOCCAL VACCINE 0-64 YRS (1 - PCV)] Future Scheduled 1997-09-05 PNEUMOCOCCAL VACCINE 0-[address] [facility] 00:00:00 YRS (1 - PCV) [code = Medica l Center PNEUMOCOCCAL VACCINE 0-64 YRS (1 - PCV)] Future Scheduled 1997-09-05 PNEUMOCOCCAL VACCINE 0-[address] [facility] 00:00:00 YRS (1 of 3 - PCV13) Medical Center [code = PNEUMOCOCCAL VACCINE 0-64 YRS (1 of 3 - PCV13)] Future Scheduled 1997-09-05 PNEUMOCOCCAL VACCINE 0-[address] [facility] 00:00:00 YRS (1 - PCV) [code = Medica l Center PNEUMOCOCCAL VACCINE 0-64 YRS (1 - PCV)] Future Scheduled 1997-09-05 PNEUMOCOCCAL VACCINE 0-[address] [facility] 00:00:00 YRS (1 - PCV) [code = Medica l Center PNEUMOCOCCAL VACCINE 0-64 YRS (1 - PCV)] Future Scheduled 1997-09-05 PNEUMOCOCCAL VACCINE 0-[address] [facility] 00:00:00 YRS (1 - PCV) [code = Medica l Center PNEUMOCOCCAL VACCINE 0-64 YRS (1 - PCV)] Future Scheduled 1997-09-05 PNEUMOCOCCAL VACCINE 0-[address] [facility] 00:00:00 YRS (1 - PCV) [code = Medica l Center PNEUMOCOCCAL VACCINE 0-64 YRS (1 - PCV)] Future Scheduled 1997-09-05 PNEUMOCOCCAL VACCINE 0-[address] [facility] 00:00:00 YRS (1 of 3 - PCV13) Medical Center [code = PNEUMOCOCCAL VACCINE 0-64 YRS (1 of 3 - PCV13)] Future Scheduled 1997-09-05 PNEUMOCOCCAL VACCINE 0-[address] [facility] 00:00:00 YRS (1 - PCV) [code = Medica l Center PNEUMOCOCCAL VACCINE 0-64 YRS (1 - PCV)] Future Scheduled 1997-09-05 PNEUMOCOCCAL VACCINE 0-[address] [facility] 00:00:00 YRS (1 - PCV) [code = Medica l Center PNEUMOCOCCAL VACCINE 0-64 YRS (1 - PCV)] Future Scheduled 1997-09-05 PNEUMOCOCCAL VACCINE 0-[address] [facility] 00:00:00 YRS (1 - PCV) [code = Medica l Center PNEUMOCOCCAL VACCINE 0-64 YRS (1 - PCV)] Future Scheduled 1997-09-05 PNEUMOCOCCAL VACCINE 0-[address] [facility] 00:00:00 YRS (1 - PCV) [code = Medica l Center PNEUMOCOCCAL VACCINE 0-64 YRS (1 - PCV)] Future Scheduled 1997-09-05 PNEUMOCOCCAL VACCINE 0-[address] [facility] 00:00:00 YRS (1 - PCV) [code = Medica Center PNEUMOCOCCAL VACCINE 0-64 YRS (1 - PCV)] Future Scheduled 1997-09-05 PNEUMOCOCCAL VACCINE 0-[address] [facility] 00:00:00 YRS (1 of 4 - PCV13) Medical Center [code = PNEUMOCOCCAL VACCINE 0-64 YRS (1 of 4 - PCV13)] Future Scheduled 1997-09-05 Pneumococcal Vaccine: [facility] 00:00:00 0-64 Years (1 - PCV) Medical Center [code = Pneumococcal Vaccine: 0-64 Years (1 - PCV)] Future Scheduled 1997-09-05 Pneumococcal Vaccine: [facility] 00:00:00 0-64 Years (1 - PCV) Medical Center [code = Pneumococcal Vaccine: 0-64 Years (1 - PCV)] Future Scheduled 1997-09-05 PNEUMOCOCCAL VACCINE 0-[address] [facility] 00:00:00 YRS (1 of 4 - PCV13) Medical Center [code = PNEUMOCOCCAL VACCINE 0-64 YRS (1 of 4 - PCV13)] Future Scheduled 1992-03-07 COVID-19 VACCINE (#1) [facility]:00 [code = COVID-19 VACCINE Med ical Center (#1)] Future Scheduled 1992-03-07 COVID-19 VACCINE (#1) [facility]:00:00 [code = COVID-19 VACCINE Med ical Center (#1)] Future Scheduled 1992-03-07 COVID-19 VACCINE (#1) [facility]:00:00 [code = COVID-19 VACCINE Med ical Center (#1)] Future Scheduled 1992-03-07 COVID-19 VACCINE (#1) [facility]:00:00 [code = COVID-19 VACCINE Med ical Center (#1)] Future Scheduled 1992-03-07 COVID-19 VACCINE (#1) [facility] 00:00:00 [code = COVID-19 VACCINE Med ical Center (#1)] Future Scheduled 1992-03-07 COVID-19 VACCINE (#1) [facility]:00:00 [code = COVID-19 VACCINE Med ical Center (#1)] Future Scheduled 1992-03-07 COVID-19 VACCINE (#1) [facility]:00:00 [code = COVID-19 VACCINE Med ical Center (#1)] Future Scheduled 1992-03-07 COVID-19 VACCINE (#1) [facility]:00:00 [code = COVID-19 VACCINE Med ical Center (#1)] Future Scheduled 1992-03-07 COVID-19 VACCINE (#1) [facility]:00:00 [code = COVID-19 VACCINE Med ical Center (#1)] Future Scheduled 1992-03-07 COVID-19 VACCINE (#1) [facility]:00:00 [code = COVID-19 VACCINE Med ical Center (#1)] Future Scheduled 1992-03-07 COVID-19 VACCINE (#1) [facility]:00:00 [code = COVID-19 VACCINE Med ical Center (#1)] Future Scheduled 1992-03-07 COVID-19 VACCINE (#1) [facility]:00:00 [code = COVID-19 VACCINE Med ical Center (#1)] Future Scheduled 1992-03-07 COVID-19 VACCINE (#1) [facility]:00:00 [code = COVID-19 VACCINE Med ical Center (#1)] Future Scheduled 1992-03-07 COVID-19 VACCINE (#1) [facility] 00:00:00 [code = COVID-19 VACCINE Med ical Center (#1)] Future Scheduled 1992-03-07 COVID-19 VACCINE (#1) [facility]:00 [code = COVID-19 VACCINE Med ical Center (#1)] Encounters Start End Encounter Admission Attending Care Care Encounter Source Date/Time Date/Time Type Type Clinicians Facility Department ID 2022-11-15 Emergency HFD HFD [id number] ALICIA - 08:34:11 [facility] Depart ent 2022-03-14 Outpatient [facility] [id number] DC 15:10:41 [id number] [facility] 2022-03-12 Emergency HFD HFD [id number] ALICIA - 22:24:00 [facility] ent 2023-01-30 2023-01-30 Orders Doctor JENNIFER [id number] Univers 00:00:00 00:00:00 Only Unassigned, ALEX [id number] ity of [place] [facility] [id number] Raheel as [id number] [facility] [address] 2023-01-28 2023-01-28 Transition Georges BRITTANIEWanda [id number] Univers 00:00:00 00:00:00 of Care Avelina ANDRE [id number] ity [id number] [id number] [facility] [address] 2023-01-19 2023-01-25 Inpatient U JELLY [facility] [id number] Univers 04:20:00 11:39:00 NOEMY itelinor of [facility] 2023-01-19 2023-01-25 Hospital Jesus Jara [facility] [id number] 04:20:00 11:39:00 Encounter Zia [facility] [id number] ity of Noemy [place]aves [id number] Beattie [phone] [address] ([facility]) 2022-11-16 2022-12-09 Inpatient E [facility] MED [id number] MHSW 12:45:00 13:26:00 MATTHEW 2022-06-17 2022-06-26 Inpatient E SPEEDY FB MED 7530 MHFB 21:54:00 17:25:00 NADA 2022-05-16 2022-05-16 Emergency E DAVID ROQUE [address] 7529 MHSW 01:31:00 13:37:00 ELLIE 2022-03-13 2022-03-19 Inpatient E VIDYA [facility] MED [id number] [facility] 13:47:00 17:30:00 CLIFTON 2022-02-19 2022-03-06 Inpatient E HIWOT [facility] MED [id number] [facility] 07:38:00 17:27:00 MARCUS 2022-01-09 2022-01-09 Outpatient EL JACIEL, [facility] [id number] SLE 00:00:00 00:00:00 MAURICIO 2021-12-28 2022-01-03 Inpatient UR KRISTINA [facility] Med 2 [id number] SLE 21:57:00 15:59:00 2021-12-28 2022-01-03 Hospital UR Kym Land [facility] [id number] 21:57:00 15:59:00 [facility]counter [facility] 2021-12-29 2021-12-29 Orders [facility] [id number] 00:00:00 00:00:00 Only [facility] 2021-09-26 2021-09-26 Lab [facility] [id number] 00:00:00 00:00:00 [facility] 2021-09-25 2021-09-25 Lab [facility] [id number] 00:00:00 00:00:00 [facility] 2021-06-05 2021-06-08 Inpatient E BRENDA [facility] MED 7526 [facility] 04:10:00 13:24:00 AURORA 2021-06-03 2021-06-03 Emergency E SUNNY MHBL MHBL 7525 MHBL 02:02:00 14:43:00 RAHEL 2021-04-04 2021-04-04 Emergency E JENNIFER SHAH MHBL MHBL 7524 MHBL 02:21:00 06:06:00 2021-02-26 2021-03-04 Inpatient E AME, MHSW MHSW 7523 MHSW 15:00:00 16:50:00 AAMIR 2021-02-18 2021-02-23 Inpatient E BRENDA [facility] MED 7521 [facility]BL 16:11:00 16:32:00 AURORA [...] Test Comments Results Result Comments Source CBC WITH DIFF 2023-01-23 11:50:49 Test Item Value Reference Range Interpretation Comme nts WBC (test code = 6690-2) 14.58 See_Comment H [A utomated message] The system which ge nerated this result transmit wilfred reference range: 4.30 - 1 1.10 10*3/?L. The reference r demarco was not used to interpr et this result as normal/abnor mal. RBC (test code = 789-8) 2.09 See_Comment L [Au tomated message] The system which ge nerated this result transmit wilfred reference range: 3.93 - 5 .25 10*6/?L. The reference r demarco was not used to interpr et this result as normal/abnor mal. HGB (test code = 718-7) 7.0 g/dL 11.6-15.0 L HCT (test code = 4544-3) 19.2 % 35.7-45.2 L MCV (test code = 787-2) 91.9 fL 80.6-95.5 MCH (test code = 785-6) 33.5 pg 25.9-32.8 H MCHC (test code = 786-4) 36.5 g/dL 31.6-35.1 H RDW-SD (test code = 39053-7) 59.3 fL 39.0-49.9 H RDW-CV (test code = 788-0) 17.6 % 12.0-15.5 H PLT (test code = 777-3) 521 See_Comment H [Au tomated message] The system which ge nerated this result transmit wilfred reference range: 166 - 35 8 10*3/?L. The reference range was not used to interpret th is result as normal/abnormal . MPV (test code = 85956-4) 10.1 fL 9.5-12.9 NRBC/100 WBC (test code = 1.6 See_Comment [ Automated message] The 6426216932) system which ge nerated this result transmit wilfred reference range: 0.0 - 10 .0 /100 WBCs. The reference r demarco was not used to interpr et this result as normal/abnor mal. NRBC x10^3 (test code = 0.23 See_Comment [Au tomated message] The 7923350838) system which ge nerated this result transmit wilfred reference range: 10*3/?L. The reference range was not u sed to interpret this result as normal/abnormal . GRAN MAT (NEUT) % (test code 43.8 % = 770-8) IMM GRAN % (test code = 1.10 % 8021534542) LYMPH % (test code = 736-9) 34.2 % MONO % (test code = 5905-5) 14.8 % EOS % (test code = 713-8) 5.2 % BASO % (test code = 706-2) 0.9 % GRAN MAT x10^3(ANC) (test 6.39 10*3/uL 1.88-7.09 code = 3256561728) IMM GRAN x10^3 (test code = 0.16 10*3/uL 0.00-0.06 H 2023280921) LYMPH x10^3 (test code = 4.98 10*3/uL 1.32-3.29 H 731-0) MONO x10^3 (test code = 2.16 10*3/uL 0.33-0.92 H 742-7) EOS x10^3 (test code = 0.76 10*3/uL 0.03-0.39 H 711-2) BASO x10^3 (test code = 0.13 10*3/uL 0.01-0.07 H 704-7) HJ BODIES (test code = Present A 7793-3) SICKLE CELLS (test code = 2+ A 801-1) SIDEROTIC GRAN (test code = Suggestive of A 7795-8) Lab Interpretation (test Abnormal code = 45543-1) [facility] WITH [id number] 11:39:43 Test Item Value Reference Range Interpretation Comments WBC (test code = 22.13 See_Comment H [Automated 6690-2) message] The system which generated this result transmit wilfred reference range : 4.30 - 11.10 10*3/?L. The reference range was not used to interpret this result as normal/abnormal . RBC (test code = 2.20 See_Comment L [Automated 789-8) message] The system which generated this result transmit wilfred reference range : 3.93 - 5.25 10*6/?L. The reference range was not used to interpret this result as normal/abnormal . HGB (test code = 7.5 g/dL 11.6-15.0 L 718-7) HCT (test code = 20.8 % 35.7-45.2 L 4544-3) MCV (test code = 94.5 fL 80.6-95.5 787-2) MCH (test code = 34.1 pg 25.9-32.8 H 785-6) MCHC (test code = 36.1 g/dL 31.6-35.1 H 786-4) RDW-SD (test code = 68.9 fL 39.0-49.9 H 77255-2) RDW-CV (test code = 21.1 % 12.0-15.5 H 788-0) PLT (test code = 492 See_Comment H [Automated 777-3) message] The system which generated this result transmit wilfred reference range : 166 - 358 10*3/ ?L. The reference range was not u sed to interpret th is result as normal/abnormal . MPV (test code = 10.0 fL 9.5-12.9 12563-9) NRBC/100 WBC (test 2.3 See_Comment [Automat ed code = 9181793064) message] The system which generated this result transmit wilfred reference range : 0.0 - 10.0 /100 WBCs. The reference range was not used to interpret this result as normal/abnormal . NRBC x10^3 (test code 0.51 See_Comment [Auto mated = 4804335377) message] The system which generated this result transmit wilfred reference range : 10*3/?L. The reference range was not used to interpret this result as normal/abnormal . GRAN MAT (NEUT) % 48.9 % (test code = 770-8) IMM GRAN % (test code 4.30 % = 7608401158) LYMPH % (test code = 32.1 % 736-9) MONO % (test code = 10.9 % 5905-5) EOS % (test code = 2.5 % 713-8) BASO % (test code = 1.3 % 706-2) GRAN MAT x10^3(ANC) 10.82 10*3/uL 1.88-7.09 H (test code = 0959917258) IMM GRAN x10^3 (test 0.96 10*3/uL 0.00-0.06 H code = 1040879220) LYMPH x10^3 (test code 7.10 10*3/uL 1.32-3.29 H = 731-0) MONO x10^3 (test code 2.42 10*3/uL 0.33-0.92 H = 742-7) EOS x10^3 (test code = 0.55 10*3/uL 0.03-0.39 H 711-2) BASO x10^3 (test code 0.28 10*3/uL 0.01-0.07 H = 704-7) HJ BODIES (test code = Present A 7793-3) POLYCHROMASIA (test 2+ See_Comment [Automa wilfred code = 86855-8) message] The system which generated this result transmit wilfred reference range : 2+. The referen ce range was not u sed to interpret th is result as normal/abnormal . SICKLE CELLS (test 2+ A code = 801-1) Lab Interpretation Abnormal (test code = 95050-2) [facility] [id number] 11:39:43 Test Item Value Reference Range Interpretation Comments RETIC Count Automated 0.51-1.90 H (test code = 0957994585) RETIC Absolute Count 0.4055 See_Comment H Dilutio n protocol (test code = 9018631813) use d to correct reticulocyte parameters for the presence of an interfering sub stance or condition. [Automated mess age] The system whic h generated this result transmitted ref erence range: 0.0230 - 0.0950 10*6/?L. The reference range was not used to int erpret this result as normal/abnormal . IRF % (test code = 45.00 % 2.10-12.60 H 5621404443) RETIC-HE (test code = 32.7 pg 28.1-35.8 4869210271) Lab Interpretation (test Abnormal code = 99433-9) [facility]OL[facility] PAN[facility] (NA, K, CL, CO2, GLUCOSE, BUN, CREATININE, CA)2023-01-19 10:32:19 Test Item Value Reference Range Interpretation Comments NA (test code = 139 mmol/L 135-145 6433948988) K (test code = 4.4 mmol/L 3.5-5.0 2208192954) CL (test code = 106 mmol/L 98-108 1168633347) CO2 TOTAL (test code = 24 mmol/L 23-31 9884695659) AGAP (test code = 9 2-16 3123502862) BUN (test code = 16 mg/dL 7-23 5322735051) GLUCOSE (test code = 96 mg/dL 70-110 1534035741) CREATININE (test code = 0.65 mg/dL 0.50-1.04 0240477724) CALCIUM (test code = 8.0 mg/dL 8.6-10.6 L 9024354238) eGFR (test code = 106.3 mL/min/1.73m2 6759521774) RUSLAN (test code = RUSLAN) Association of Glomerular Filtration Rate (GFR) and Staging of Kidney Disease* + --+ --+ ------+| GFR (mL/min/1.73 m2) ?| With Kidney Damage ?| ?Without Kidney Damage+ --------+ --------+ +| ?>90 ?| ?Stage one ?| ? Normal ?+ ---+ ---+ -------+| ?60-89 ?| ?Stage two ?| ? Decreased GFR ? + --+ --+ ------+| ?30-59 ?| ?Stage three ?| ? Stage three ? + --+ --+ ------+| ?15-29 ?| ?Stage four ? | ? Stage four ?+ ---+ ---+ -------+| ?<15 (or dialysis) ? ?| ?Stage five ? | ? Stage five ?+ ---+ ---+ -------+ *Each stage assumes the associated GFR level has been in effect for at least three months. ?Stages 1 to 5, with or without kidney disease, indicate chronic kidney disease. Notes: Determination of stages one and two (with eGFR >59mL/min/1.73 m2) requires estimation of kidney damage for at least three months as defined by structural or functional abnormalities of the kidney, manifested by either:Pathological abnormalities or Markers of kidney damage (including abnormalities in the composition of the blood or urine or abnormalities in imaging tests). Lab Interpretation Abnormal (test code = 07692-7) [facility]villeHEPAT[facility] FUNCTION PANEL (96780) (ALB,T.PRO,BILI T,BU/BC,ALT,AST,ALK PHOS)2023-01-19 10:32:19 Test Item Value Reference Range Interpretation Comments TOTAL BILI (test code = 7707880996) 3.0 mg/dL 0.1-1.1 H BILI UNCON (test code = 2780077848) 2.8 mg/dL 0.1-1.1 H BILI CONJ (test code = 3668242540) 0.0 mg/dL 0.0-0.3 T PROTEIN (test code = 7413225272) 7.3 g/dL 6.3-8.2 ALBUMIN (test code = 0515856375) 4.1 g/dL 3.5-5.0 ALK PHOS (test code = 8573700988) 123 U/L 34-122 H ALTv (test code = 1742-6) 57 U/L 5-35 H AST(SGOT) (test code = 5455805792) 68 U/L 13-40 H Lab Interpretation (test code = Abnormal 56403-6) [facility]villeProthrombin Time / [id number] 10:19:36 Test Item Value Reference Range Interpretation Comments PROTIME PATIENT (test 11.7 See_Comment [Auto mated message] code = 5964-2) The system [employer] ich generated this result transmitted ref erence range: 10.1 - 1 2.6 Seconds. The re ference range was not u sed to interpret this result as normal/abnor mal. INR (test code = 6301-6) 1.0 Nor mal INR <1.1; Warfarin Therap eutic range 2.0 to 3. 0 or 2.5 to 3.5, dep ending upon the indica tions. Lab Interpretation (test Normal code = 41835-5) [facility]villeaPTT2023-09-09 10:19:36 Test Item Value Reference Range Interpretation Comments APTT Patient (test code = 26 See_Comment [ Automated message] 3173-2) The system [employer] h generated this result transmitted ref erence range: 26 - 36 Seconds. The re ference range was not u sed to interpret this result as normal/abnor mal. Lab Interpretation (test Normal code = 84480-6) [facility]villeBLOOD [id number] 13:00:55 Test Item Value Reference Range Interpretation Comments CULTURE (BEAKER) (test No growth in 5 days code = 1095) BLOOD [id number] 13:00:55 Test Item Value Reference Range Interpretation Comments CULTURE (BEAKER) (test No growth in 5 days code = 1095) CBC W/PLT COUNT & AUTO [id number] 07:10:44 Test Item Value Reference Range Interpretation [...] CONCENTRATION Increased (CELLAVISION)(BEAKER) (test code = 3438) Human Resource Professional ID - emanuel Duke comments: Slide comments:BASIC [...] not appl icable for dialysis patien ts Human Resource Professional ID - PIETER MSpecimen slightly ictericSARS-CoV2/RT-PCR (Asymptomatic ONLY)2022-01-03 01:56:54 Test Item Value Reference Range Interpretation Comments SARS-COV2/RT-PCR Negative Not Detected, (test code = Negative, See 37917-1) external report for linked test SARS-COV-2 [facility] PERFORMING LAB (test code = 31573-4) RUSLAN (test code = Negative result for [...] of the Act. Fact Sheet for Healthcare Providers:https://www.[employer]utmeg Education/sites/default/f reza/product/documents/F act_Sheet_HC_Providers_L adw_ZFVW-AtN-9.pdf Fact Sheet for Healthcare Patients:https://www.Inmobiliarie/sites/default/fi les/product/documents/Fa ct_Sheet_Patients_Lyra_S ARS-CoV-2.pdf Performing Laboratory:[facility] [place] [address] [facility]2022-01-03 01:56:54 Test Item Value Reference Range Interpretation Comments SARS-COV2/RT-PCR Negative Not Detected, (test code = Negative, See 21510-0) external report for linked test SARS-COV-2 [facility] PERFORMING [facility] (test code = 23204-5) RUSLAN (test code = Negative result for [...] of the Act. Fact Sheet for Healthcare Providers:https://www.[employer] Education/sites/default/f reza/product/documents/F act_Sheet_HC_Providers_L rrw_GTZV-CyL-7.pdf Fact Sheet for Healthcare Patients:https://www.Inmobiliarie/sites/default/fi les/product/documents/Fa ct_Sheet_Patients_Lyra_S ARS-CoV-2.pdf Performing Laboratory:[facility] [place] [address] [facility] (As[facility]omatic ONLY)2022-01-03 01:56:54 Test Item Value Reference Range Interpretation Comments SARS-COV2/RT-PCR Negative Not Detected, (test code = Negative, See 61255-2) external report for linked test SARS-COV-2 [facility] PERFORMING LAB (test code = 40563-6) RUSLAN (test code = Negative result for [...] of the Act. Fact Sheet for Healthcare Providers:https://www.Spacecom idel.FlowPay/sites/default/f reza/product/documents/F act_Sheet_HC_Providers_L onw_HMSY-UdT-9.pdf Fact Sheet for Healthcare Patients:https://www.jonathan del.com/sites/default/fi les/product/documents/Fa ct_Sheet_Patients_Lyra_S ARS-CoV-2.pdf Performing Laboratory:[facility] [place] [address] [facility] (Asymptomatic ONLY)2022-01-03 01:56:54 Test Item Value Reference Range Interpretation Comments SARS-COV2/RT-PCR Negative Not Detected, (test code = Negative, See 94120-0) external report for linked test SARS-COV-2 [facility] PERFORMING LAB (test code = 23395-6) RUSLAN (test code = Negative result for [...] of the Act. Fact Sheet for Healthcare Providers:https://www.Spacecom idel.FlowPay/sites/default/f reza/product/documents/F act_Sheet_HC_Providers_L zoq_ISUY-WuG-5.pdf Fact Sheet for Healthcare Patients:https://www.[employer]C [employer] del.FlowPay/sites/default/fi les/product/documents/Fa ct_Sheet_Patients_Lyra_S ARS-CoV-2.pdf Performing Laboratory:[facility] [place] [address] [facility] (As[facility]omatic ONLY)2022-01-03 01:56:54 Test Item Value Reference Range Interpretation Comments SARS-COV2/RT-PCR Negative Not Detected, (test code = Negative, See 86360-1) external report for linked test SARS-COV-2 [facility] PERFORMING LAB (test code = 74393-8) RUSLAN (test code = Negative result for [...] of the Act. Fact Sheet for Healthcare Providers:https://www.IMScouting.FlowPay/sites/default/f reza/product/documents/F act_Sheet_HC_Providers_L feo_IUDI-QwU-5.pdf Fact Sheet for Healthcare Patients:https://www.FlyCleaners.FlowPay/sites/default/fi les/product/documents/Fa ct_Sheet_Patients_Lyra_S ARS-CoV-2.pdf Performing Laboratory:[facility] [place] [address] [facility] (Asymptomatic ONLY)2022-01-03 01:56:54 Test Item Value Reference Range Interpretation Comments SARS-COV2/RT-PCR Negative Not Detected, (test code = Negative, See 47943-5) external report for linked test SARS-COV-2 [facility] PERFORMING LAB (test code = 75532-7) RUSLAN (test code = Negative result for [...] of the Act. Fact Sheet for Healthcare Providers:https://www.IMScouting.FlowPay/sites/default/f reza/product/documents/F act_Sheet_HC_Providers_L xpy_XFNU-XoD-0.pdf Fact Sheet for Healthcare Patients:https://www.FlyCleaners.com/sites/default/fi les/product/documents/Fa ct_Sheet_Patients_Ly_S ARS-CoV-2.pdf Performing Laboratory:[facility] [place] [address] [facility] (As[facility]omatic ONLY)2022-01-03 01:56:54 Test Item Value Reference Range Interpretation Comments SARS-COV2/RT-PCR Negative Not Detected, (test code = Negative, See 70540-7) external report for linked test SARS-COV-2 [facility] PERFORM[facility] LAB (test code = 88475-8) RUSLAN (test code = Negative result for [...] of the Act. Fact Sheet for Healthcare Providers:https://www.IMScouting.FlowPay/sites/default/f reza/product/documents/F act_Sheet_HC_Providers_L uci_SHEM-EjR-9.pdf Fact Sheet for Healthcare Patients:https://www.Inmobiliarie/sites/default/fi les/product/documents/Fa ct_Sheet_Patients_Lyra_S ARS-CoV-2.pdf Performing Laboratory:[facility] [place] [address] [facility]As[facility]omatic ONLY)2022-01-03 01:56:54 Test Item Value Reference Range Interpretation Comments SARS-COV2/RT-PCR Negative Not Detected, (test code = Negative, See 77527-0) external report for linked test SARS-COV-2 [facility] PERFORM[facility] (test code = 03241-6) RUSLAN (test code = Negative result for [...] of the Act. Fact Sheet for Healthcare Providers:https://www.[employer] Education/sites/default/f reza/product/documents/F act_Sheet_HC_Providers_L nne_DIGV-EkM-4.pdf Fact Sheet for Healthcare Patients:https://www.Inmobiliarie/sites/default/fi les/product/documents/Fa ct_Sheet_Patients_Lyra_S ARS-CoV-2.pdf Performing Laboratory:[facility] [place] [address] [facility]omatic ONLY)2022-01-03 01:56:54 Test Item Value Reference Range Interpretation Comments SARS-COV2/RT-PCR Negative Not Detected, (test code = Negative, See 13992-4) external report for linked test SARS-COV-2 [facility] PERFORM[facility] (test code = 85108-1) RUSLAN (test code = Negative result for [...] of the Act. Fact Sheet for Healthcare Providers:https://www.[employer] Education/sites/default/f reza/product/documents/F act_Sheet_HC_Providers_L jwo_AOCS-TvZ-5.pdf Fact Sheet for Healthcare Patients:https://www.Inmobiliarie/sites/default/fi les/product/documents/Fa ct_Sheet_Patients_Lyra_S ARS-CoV-2.pdf Performing Laboratory:[facility], [place] [address] [place], [place] [address]ARS-CoV2/RT-PCR (Asymptomatic ONLY)2022-01-03 01:56:54 Test Item Value Reference Range Interpretation Comments SARS-COV2/RT-PCR Negative Not Detected, (test code = Negative, See 05018-8) external report for linked test SARS-COV-2 [facility] PERFORM[facility] (test code = 34936-9) RUSLAN (test code = Negative result for [...] of the Act. Fact Sheet for Healthcare Providers:https://www.[employer] Education/sites/default/f reza/product/documents/F act_Sheet_HC_Providers_L ucm_PFQE-GdZ-9.pdf Fact Sheet for Healthcare Patients:https://www.Inmobiliarie/sites/default/fi les/product/documents/Fa ct_Sheet_Patients_Lyra_S ARS-CoV-2.pdf Performing Laboratory:[facility] [place] [address] [facility]omatic ONLY)2022-01-03 01:56:54 Test Item Value Reference Range Interpretation Comments SARS-COV2/RT-PCR Negative Not Detected, (test code = Negative, See 63783-3) external report for linked test SARS-COV-2 [facility] PERFORM[facility] (test code = 34619-6) RUSLAN (test code = Negative result for [...] of the Act. Fact Sheet for Healthcare Providers:https://www.[employer] Education/sites/default/f reza/product/documents/F act_Sheet_HC_Providers_L nht_OKAF-DvX-2.pdf Fact Sheet for Healthcare Patients:https://www.Inmobiliarie/sites/default/fi les/product/documents/Fa ct_Sheet_Patients_Lyra_S ARS-CoV-2.pdf Performing Laboratory:[facility], [place] [address] [place], [place] [address]ARS-CoV2/RT-PCR (Asymptomatic ONLY)2022-01-03 01:56:54 Test Item Value Reference Range Interpretation Comments SARS-COV2/RT-PCR Negative Not Detected, (test code = Negative, See 19471-1) external report for linked test SARS-COV-2 [facility] PERFORM[facility] (test code = 18530-1) RUSLAN (test code = Negative result for [...] of the Act. Fact Sheet for Healthcare Providers:https://www.[employer] Education/sites/default/f reza/product/documents/F act_Sheet_HC_Providers_L uhj_FKJT-CbI-9.pdf Fact Sheet for Healthcare Patients:https://www.Inmobiliarie/sites/default/fi les/product/documents/Fa ct_Sheet_Patients_Lyra_S ARS-CoV-2.pdf Performing Laboratory:[facility], [place] [address] [place], [place] [address]ARS-CoV2/RT-PCR (Asymptomatic ONLY)2022-01-03 01:56:54 Test Item Value Reference Range Interpretation Comments SARS-COV2/RT-PCR Negative Not Detected, (test code = Negative, See 25306-8) external report for linked test SARS-COV-2 [facility] PERFORM[facility] (test code = 48645-7) RUSLAN (test code = Negative result for [...] of the Act. Fact Sheet for Healthcare Providers:https://www.[employer] Education/sites/default/f reza/product/documents/F act_Sheet_HC_Providers_L fot_MUEV-PrN-0.pdf Fact Sheet for Healthcare Patients:https://www.Inmobiliarie/sites/default/fi les/product/documents/Fa ct_Sheet_Patients_Lyra_S ARS-CoV-2.pdf Performing Laboratory:[facility] [place] [address] [facility]2022-01-03 01:56:54 Test Item Value Reference Range Interpretation Comments SARS-COV2/RT-PCR Negative Not Detected, (test code = Negative, See 27659-9) external report for linked test SARS-COV-2 [facility] PERFORM[facility] LAB (test code = 45743-4) RUSLAN (test code = Negative result for [...] of the Act. Fact Sheet for Healthcare Providers:https://www.[employer] Education/sites/default/f reza/product/documents/F act_Sheet_HC_Providers_L ptk_VOOD-GtI-0.pdf Fact Sheet for Healthcare Patients:https://www.Inmobiliarie/sites/default/fi les/product/documents/Fa ct_Sheet_Patients_Lyra_S ARS-CoV-2.pdf Performing Laboratory:[facility] [place] [address] [facility])2022-01-03 01:56:54 Test Item Value Reference Range Interpretation Comments SARS-COV2/RT-PCR (test Negative Not Detected, Negative, code = 3529474) See external report for linked test SARS-COV-2 PERFORMING LAB [facility] (test code = 5208450) Negative result for this test determines that [...] of the Act.Fact Sheet for Healthcare Prov iders:https://www.[employer]/sites/default/files/product/documents/Fact_Sheet_HC _Pfcvhpdjb_Zumn_FNVZ-GoQ-1.pdfFact Sheet for Healthcare Patients:https://www.[employer]/sites/default/files/product/docume nts/Rdgp_Wbfjr_Yabhbjky_Fumd_RISR-IpX-8.pdfPerforming Laboratory:[facility] [place] [address](CELLAVISION MANUAL DIFF) 2022-01-02 07:09:24 Test Item Value [...] CONCENTRATION Increased (CELLAVISION)(BEAKER) (test code = 3438) Human Resource Professional ID - Martine OverholtUser comments: Slide comments:CBC W/PLT COUNT & AUTO [id number] 07:09:23 Test Item Value Reference Range Interpretation [...] (BEAKER) (test code = 413) BASIC METABOLIC [id number] 03:43:56 Test Item Value Reference Range Interpretation [...] G3b Moderately to s everely 30-44 G4 Sever ly decreased 15-29 G5 Kidney failure <15Repo rted eGFR is based on the CKD-EPI 2020 equation t hat does not use a race coefficientEsti mated GFR is not as accur ate as Creatinine Joy shani in predicting glom erular filtration rate . Estimated GFR is not appl icable for dialysis patien ts Human Resource Professional ID - PIAYA LSpecimen slightly icteric(CELLAVISION MANUAL [...] CONCENTRATION Increased (CELLAVISION)(BEAKER) (test code = 3438) Human Resource Professional ID - [id number] ID - Martine OverholtUser comments: Slide comments:CBC W/PLT COUNT & AUTO [id number] 11:06:13 Test Item Value Reference Range Interpretation [...] (BEAKER) (test code = 413) BASIC METABOLIC [id number] 10:23:17 Test Item Value Reference Range Interpretation [...] decreased 60-89 G3a Mildl y to moderately 45- 59 G3b Moderately to s everely 30-44 G4 Severl y decreased 15-29 G5 Kidney failure <15Reported eGF R is based on the CKD-EPI 2020 equation that d oes not use a race coefficientEsti mated GFR is not as accur ate as Creatinine Joy shani in predicting glom erular filtration rate . Estimated GFR is not appl icable for dialysis patien ts Human Resource Professional ID - MITCHCBC W/PLT COUNT & AUTO [id number] 03:54:02 Test Item Value Reference Range Interpretation [...] CONCENTRATION Increased (CELLAVISION)(BEAKER) (test code = 3438) Human Resource Professional ID - Cornelius Santos comments: Slide comments:BASIC [...] not appl icable for dialysis patien ts Human Resource Professional ID - PIETER [id number] 03:27:46 Test Item Value Reference Range Interpretation Comments MAGNESIUM (BEAKER) (test code = 1.5 mg/dL 1.6-2.6 L 627) Human Resource Professional ID - PIETER MHEPATIC FUNCTION [id number] 03:27:46 Test Item Value Reference Range Interpretation [...] (test code = 50 U/L 6-55 347) Human Resource Professional ID - PIETER MSARS-COV2/RT-PCR ([facility])2021-12-29 20:53:09 Test Item Value Reference Range Interpretation Comments SARS-COV2/RT-PCR (test Negative Not Detected, Negative, code = 2165703) See external report for linked test SARS-COV-2 PERFORMING LAB [facility] JESUS (test code = 7328023) Negative result for this test determines that [...] of the Act.Fact Sheet for Healthcare Prov iders:https://www.[employer]/sites/default/files/product/documents/Fact_Sheet_HC _Gkluwtbrl_Xbma_XIJZ-JqT-9.pdfFact Sheet for Healthcare Patients:https://www.[employer]/sites/default/files/product/docume nts/Vjac_Seyjy_Pkdtmxjd_Ghxp_OLSI-AoD-2.pdfPerforming Laboratory:[facility], [place] [address]Fbgloczjiqcbv 2D echo w/ doppler (cw/pw/color)2021-12-29 15:36:58Ejection FractionSLEH ECHO HEARTLAB [facility] 2D echo w/ doppler (cw/pw/color)2021-12-29 15:36:58Ejection FractionSLEH ECHO HE[facility]LAB [facility]/ do[facility] (cw/pw/color) 2021-12-29 15:36:58Ejection FractionSLEH ECHO HEARTLAB [facility] w/ doppler (cw/pw/color)2021-12-29 15:36:58Ejection FractionSLEH ECHO HEARTLAB [facility]/ doppler (cw/pw/color)2021-12-29 15:36:58Ejection FractionSLEH ECHO HEARTLAB [facility] Transthoracic 2D echo w/ doppler (cw/pw/color)2021-12-29 15:36:58Ejection FractionSLEH ECHO HEARTLAB [facility] Transthoracic 2D echo w/ doppler (cw/pw/color)2021-12-29 15:36:58Ejection FractionSLEH ECHO HEARTLAB [facility] Tran[facility] 2D echo w/ doppler (cw/pw/color)2021-12-29 15:36:58Ejection FractionSLEH ECHO HEARTLAB [facility] Transthoracic 2D echo w/ doppler (cw/pw/color)2021-12-29 15:36:58Ejection FractionSLEH ECHO HEARTLAB [facility] Transthoracic 2D echo w/ doppler (cw/pw/color)2021-12-29 15:36:58Ejection FractionSLEH ECHO HEARTLAB [facility] Transthoracic 2D echo w/ doppler (cw/pw/color)2021-12-29 15:36:58Ejection FractionSLEH ECHO HEARTLAB [facility] Transthoracic 2D echo w/ doppler (cw/pw/color)2021-12-29 15:36:58Ejection FractionSLEH ECHO HEARTLAB [facility] Transthoracic 2D echo w/ doppler (cw/pw/color)2021-12-29 15:36:58Ejection FractionSLEH ECHO HEARTLAB [facility] Transthoracic 2D echo w/ doppler (cw/pw/color)2021-12-29 15:36:58Ejection FractionSLE ECHO [facility] (CELLAVISION MANUAL DIFF)2021-12-29 07:16:35 Test Item Value [...] CONCENTRATION Increased (CELLAVISION)(BEAKER) (test code = 3438) Human Resource Professional ID - emanuel Duke comments: Slide comments:CBC W/PLT COUNT & AUTO [id number] 07:16:31 Test Item Value Reference Range Interpretation [...] CONCENTRATION Increased (CELLAVISION)(BEAKER) (test code = 3438) Human Resource Professional ID - emanuel Duke comments: Slide comments:CBC W/PLT COUNT & AUTO [id number] 07:16:30 Test Item Value Reference Range Interpretation [...] 0-0 H (BEAKER) (test code = 413) [id number] 06:49:49 Test Item Value Reference Range Interpretation Comments MAGNESIUM (BEAKER) (test code = 1.4 mg/dL 1.6-2.6 L 627) Human Resource Professional ID - PIETER EPATIC FUNCTION [id number] 06:49:49 Test Item Value Reference Range Interpretation [...] (test code = 43 U/L 6-55 347) Human Resource Professional LIVIA STAPLETON MBASIC METABOLIC [id number] 06:49:48 Test Item Value Reference Range Interpretation [...] not appl icable for dialysis patien ts Human Resource Professional LIVIA STAPLETON MPregnancy Screen, [id number] 03:16:32 Test Item Value Reference Range Interpretation Comments Preg Test, Ur (test code = 2111-1) Negative Negative Lab Interpretation (test code = Normal 87811-2) [facility] [id number] 03:16:32 Test Item Value Reference Range Interpretation Comments Preg Test, Ur (test code = 2-1) Negative Negative Lab Interpretation (test code = Normal 44738-1) [facility], [id number] 03:16:32 Test Item Value Reference Range Interpretation Comments Preg Test, Ur (test code = 2112-1) Negative Negative Lab Interpretation (test code = Normal 96889-0) [facility], [id number] 03:16:32 Test Item Value Reference Range Interpretation Comments Preg Test, Ur (test code = 2112-1) Negative Negative Lab Interpretation (test code = Normal 01440-0) [facility], [id number] 03:16:32 Test Item Value Reference Range Interpretation Comments Preg Test, Ur (test code = 2112-1) Negative Negative Lab Interpretation (test code = Normal 26606-6) [facility], [id number] 03:16:32 Test Item Value Reference Range Interpretation Comments Preg Test, Ur (test code = 2112-1) Negative Negative Lab Interpretation (test code = Normal 38927-8) [facility] Screen, [id number] 03:16:32 Test Item Value Reference Range Interpretation Comments Preg Test, Ur (test code = 2112-1) Negative Negative Lab Interpretation (test code = Normal 49577-2) [facility], [id number] 03:16:32 Test Item Value Reference Range Interpretation Comments Preg Test, Ur (test code = 2112-1) Negative Negative Lab Interpretation (test code = Normal 22601-8) [facility], [id number] 03:16:32 Test Item Value Reference Range Interpretation Comments Preg Test, Ur (test code = 2112-1) Negative Negative Lab Interpretation (test code = Normal 35416-2) [facility], [id number] 03:16:32 Test Item Value Reference Range Interpretation Comments Preg Test, Ur (test code = 2112-1) Negative Negative Lab Interpretation (test code = Normal 19005-9) [facility] Screen, [id number] 03:16:32 Test Item Value Reference Range Interpretation Comments Preg Test, Ur (test code = 2112-1) Negative Negative Lab Interpretation (test code = Normal 92989-7) [facility] Screen, [id number] 03:16:32 Test Item Value Reference Range Interpretation Comments Preg Test, Ur (test code = 2112-1) Negative Negative Lab Interpretation (test code = Normal 61730-4) [facility], [id number] 03:16:32 Test Item Value Reference Range Interpretation Comments Preg Test, Ur (test code = 2112-1) Negative Negative Lab Interpretation (test code = Normal 04650-7) [facility]Preancy Screen, [id number] 03:16:32 Test Item Value Reference Range Interpretation Comments Preg Test, Ur (test code = 2112-1) Negative Negative Lab Interpretation (test code = Normal 18068-0) [facility], [id number] 03:16:32 Test Item Value Reference Range Interpretation Comments TEST URINE (BEAKER) (test Negative Negative code = 583) TSH/FREE T4 IF [id number] 00:37:03 Test Item Value Reference Range Interpretation Comments THYROID STIMULATING HORMONE 1.144 uIU/mL 0.350-4.940 (BEAKER) (test code = 772) Human Resource Professional ID - PIAYA [id number] 00:23:22 Test Item Value Reference Range Interpretation Comments PHOSPHORUS (BEAKER) (test code = 3.6 mg/dL 2.3-4.7 604) Human Resource Professional ID - PIAYA LHEPATIC FUNCTION [id number] 00:23:22 Test Item Value Reference Range Interpretation [...] (test code = 45 U/L 6-55 347) Human Resource Professional ID - PIERO LBASIC METABOLIC [id number] 00:23:21 Test Item Value Reference Range Interpretation [...] not appl icable for dialysis patien ts Human Resource Professional ID - PIERO [id number] 00:23:21 Test Item Value Reference Range Interpretation Comments MAGNESIUM (BEAKER) (test code = 1.7 mg/dL 1.6-2.6 627) Human Resource Professional ID - PIERO LB-TYPE NATRIURETIC FACTOR (BNP)2021-12-29 00:22:19 Test Item Value Reference Range Interpretation Comments B-TYPE NATRIURETIC PEPTIDE (BEAKER) 12 pg/mL 0-100 (test code = 700) Human Resource Professional ID - PIERO LPROTHROMBIN TIME/[id number] 00:13:42 Test Item Value Reference Range Interpretation Comments PROTIME (BEAKER) 14.2 seconds 11.9-14.2 (test code = 759) INR (SUNITHAAKER) (test 1.13 See_Comment [Automat ed message] code = 370) The system [employer] generated this result transmitted ref erence range: <=5.90. The reference range was not used to int erpret this result as normal/abnormal . RECOMMENDED COUMADIN/WARFARIN INR THERAPY RANGESSTANDARD DOSE: 2.0 - 3.0 Includes: PROPHYLAXIS for venous thrombosis, systemic embolization; TREATMENT for venous thrombosis and/or pulmonary embolus.HIGH RISK: Target INR is 2.5-3.5 for patients with mechanical heart valves.RAD, CHEST, 1 VIEW, NON [id number] 23:56:00Reason for exam:->dyspnea; sickle cell crisisIs the patient ?->UnknownShould this be performed at the bedside?->Yes [facility] 1990 Sex: FFINAL REPORT [...] Date/Time: 12/28/2021 23:56:16 Hepatitis B core antibody, [id number] 11:45:17 Test Item Value Reference Range Interpretation Comments Hep B Core Total Ab (test Nonreactive Nonreactive code = 71939-0) RUSLAN (test code = RUSLAN) Human Resource Professional ID - DB Lab Interpretation (test Normal code = 47749-9) [facility] [id number] 11:45:17 Test Item Value Reference Range Interpretation Comments Hep A IgM (test code = Nonreactive Nonreactive 49044-2) RUSLAN (test code = RUSLAN) Human Resource Professional ID - DB Lab Interpretation (test Normal code = 56479-1) [facility] C [id number] 11:45:17 Test Item Value Reference Range Interpretation Comments Hepatitis C Ab (test code = Nonreactive Nonreactive 82917-1) RUSLAN (test code = RUSLAN) Human Resource Professional ID - DB Lab Interpretation (test Normal code = 85401-3) [facility] B core antibody, [id number] 11:45:17 Test Item Value Reference Range Interpretation Comments Hep B Core Total Ab (test Nonreactive Nonreactive code = 02711-7) RUSLAN (test code = RUSLAN) Human Resource Professional ID - DB Lab Interpretation (test Normal code = 79843-3) [facility], [id number] 11:45:17 Test Item Value Reference Range Interpretation Comments Hep A IgM (test code = Nonreactive Nonreactive 91496-4) RUSLAN (test code = RUSLAN) Human Resource Professional ID - DB Lab Interpretation (test Normal code = 68252-9) [facility] C [id number] 11:45:17 Test Item Value Reference Range Interpretation Comments Hepatitis C Ab (test code = Nonreactive Nonreactive 93351-6) RUSLAN (test code = RUSLAN) Human Resource Professional ID - DB Lab Interpretation (test Normal code = 59368-6) [facility] B core antibody, [id number] 11:45:17 Test Item Value Reference Range Interpretation Comments Hep B Core Total Ab (test Nonreactive Nonreactive code = 11804-2) RUSLAN (test code = RUSLAN) Human Resource Professional ID - DB Lab Interpretation (test Normal code = 27517-2) [facility], [id number] 11:45:17 Test Item Value Reference Range Interpretation Comments Hep A IgM (test code = Nonreactive Nonreactive 96446-6) RUSLAN (test code = RUSLAN) Human Resource Professional ID - DB Lab Interpretation (test Normal code = 83788-5) [facility] C [id number] 11:45:17 Test Item Value Reference Range Interpretation Comments Hepatitis C Ab (test code = Nonreactive Nonreactive 63417-7) RUSLAN (test code = RUSLAN) Human Resource Professional ID - DB Lab Interpretation (test Normal code = 50059-2) [facility] B core antibody, [id number] 11:45:17 Test Item Value Reference Range Interpretation Comments Hep B Core Total Ab (test Nonreactive Nonreactive code = 00052-9) RUSLAN (test code = RUSLAN) Human Resource Professional ID - DB Lab Interpretation (test Normal code = 31384-4) [facility], [id number] 11:45:17 Test Item Value Reference Range Interpretation Comments Hep A IgM (test code = Nonreactive Nonreactive 81215-7) RUSLAN (test code = RUSLAN) Human Resource Professional ID - DB Lab Interpretation (test Normal code = 60377-0) [facility] [id number] 11:45:17 Test Item Value Reference Range Interpretation Comments Hepatitis C Ab (test code = Nonreactive Nonreactive 87616-1) RUSALN (test code = RUSLAN) Human Resource Professional ID - DB Lab Interpretation (test Normal code = 98288-3) [facility] B core antibody, [id number] 11:45:17 Test Item Value Reference Range Interpretation Comments Hep B Core Total Ab (test Nonreactive Nonreactive code = 73921-8) RUSLAN (test code = RUSLAN) Human Resource Professional ID - DB Lab Interpretation (test Normal code = 55650-6) [facility], [id number] 11:45:17 Test Item Value Reference Range Interpretation Comments Hep A IgM (test code = Nonreactive Nonreactive 65552-6) RUSLAN (test code = RUSLAN) Human Resource Professional ID - DB Lab Interpretation (test Normal code = 10699-8) [facility] C [id number] 11:45:17 Test Item Value Reference Range Interpretation Comments Hepatitis C Ab (test code = Nonreactive Nonreactive 18514-2) RUSLAN (test code = RUSLAN) Human Resource Professional ID - DB Lab Interpretation (test Normal code = 78316-0) [facility] B core antibody, [id number] 11:45:17 Test Item Value Reference Range Interpretation Comments Hep B Core Total Ab (test Nonreactive Nonreactive code = 71422-6) RUSLAN (test code = RUSLAN) Human Resource Professional ID - DB Lab Interpretation (test Normal code = 76937-6) [facility] A antibody, [id number] 11:45:17 Test Item Value Reference Range Interpretation Comments Hep A IgM (test code = Nonreactive Nonreactive 34724-7) RUSLAN (test code = RUSLAN) Human Resource Professional ID - DB Lab Interpretation (test Normal code = 92527-7) [facility] C [id number] 11:45:17 Test Item Value Reference Range Interpretation Comments Hepatitis C Ab (test code = Nonreactive Nonreactive 50763-9) RUSLAN (test code = RUSLAN) Human Resource Professional ID - DB Lab Interpretation (test Normal code = 95187-8) [facility] B core antibody, [id number] 11:45:17 Test Item Value Reference Range Interpretation Comments Hep B Core Total Ab (test Nonreactive Nonreactive code = 76204-0) RUSLAN (test code = RUSLAN) Human Resource Professional ID - DB Lab Interpretation (test Normal code = 63175-0) [facility] A antibody, [id number] 11:45:17 Test Item Value Reference Range Interpretation Comments Hep A IgM (test code = Nonreactive Nonreactive 19906-7) RUSLAN (test code = RUSLAN) Human Resource Professional ID - DB Lab Interpretation (test Normal code = 11238-7) [facility] C [id number] 11:45:17 Test Item Value Reference Range Interpretation Comments Hepatitis C Ab (test code = Nonreactive Nonreactive 20209-5) RUSLAN (test code = RUSLAN) Human Resource Professional ID - DB Lab Interpretation (test Normal code = 22540-2) [facility] B core antibody, [id number] 11:45:17 Test Item Value Reference Range Interpretation Comments Hep B Core Total Ab (test Nonreactive Nonreactive code = 78205-7) RUSLAN (test code = RUSLAN) Human Resource Professional ID - DB Lab Interpretation (test Normal code = 10757-2) [facility], [id number] 11:45:17 Test Item Value Reference Range Interpretation Comments Hep A IgM (test code = Nonreactive Nonreactive 46678-3) RUSLAN (test code = RUSLAN) Human Resource Professional ID - DB Lab Interpretation (test Normal code = 65824-2) [facility] C [id number] 11:45:17 Test Item Value Reference Range Interpretation Comments Hepatitis C Ab (test code = Nonreactive Nonreactive 56256-9) RUSLAN (test code = RUSLAN) Human Resource Professional ID - DB Lab Interpretation (test Normal code = 50955-2) [facility] B core antibody, [id number] 11:45:17 Test Item Value Reference Range Interpretation Comments Hep B Core Total Ab (test Nonreactive Nonreactive code = 51269-1) RUSLAN (test code = RUSLAN) Human Resource Professional ID - DB Lab Interpretation (test Normal code = 18704-2) [facility], [id number] 11:45:17 Test Item Value Reference Range Interpretation Comments Hep A IgM (test code = Nonreactive Nonreactive 98553-7) RUSLAN (test code = RUSLAN) Human Resource Professional ID - DB Lab Interpretation (test Normal code = 96162-1) [facility] C [id number] 11:45:17 Test Item Value Reference Range Interpretation Comments Hepatitis C Ab (test code = Nonreactive Nonreactive 12379-2) RUSLAN (test code = RUSLAN) Human Resource Professional ID - DB Lab Interpretation (test Normal code = 86773-9) [facility] B core antibody, [id number] 11:45:17 Test Item Value Reference Range Interpretation Comments Hep B Core Total Ab (test Nonreactive Nonreactive code = 01010-9) RUSLAN (test code = RUSLAN) Human Resource Professional ID - DB Lab Interpretation (test Normal code = 69922-0) [facility], [id number] 11:45:17 Test Item Value Reference Range Interpretation Comments Hep A IgM (test code = Nonreactive Nonreactive 82642-9) RUSLAN (test code = RUSLAN) Human Resource Professional ID - DB Lab Interpretation (test Normal code = 17483-4) [facility] C [id number] 11:45:17 Test Item Value Reference Range Interpretation Comments Hepatitis C Ab (test code = Nonreactive Nonreactive 12717-5) RUSLAN (test code = RUSLAN) Human Resource Professional ID - DB Lab Interpretation (test Normal code = 70465-6) [facility], [id number] 11:45:17 Test Item Value Reference Range Interpretation Comments Hep B Core Total Ab (test Nonreactive Nonreactive code = 95076-4) RUSLAN (test code = RUSLAN) Human Resource Professional ID - DB Lab Interpretation (test Normal code = 62752-4) [facility] A antibody, [id number] 11:45:17 Test Item Value Reference Range Interpretation Comments Hep A IgM (test code = Nonreactive Nonreactive 09800-1) RUSLAN (test code = RUSLAN) Human Resource Professional ID - DB Lab Interpretation (test Normal code = 64090-9) [facility] C [id number] 11:45:17 Test Item Value Reference Range Interpretation Comments Hepatitis C Ab (test code = Nonreactive Nonreactive 68765-1) RUSLAN (test code = RUSLAN) Human Resource Professional ID - DB Lab Interpretation (test Normal code = 44086-7) [facility] C [id number] 11:45:17 Test Item Value Reference Range Interpretation Comments HEPATITIS C ANTIBODY (BEAKER) Nonreactive Nonreactive (test code = 367) Human Resource Professional ID - DBHEPATITIS A ANTIBODY, [id number] 11:45:17 Test Item Value Reference Range Interpretation Comments HEPATITIS A IGM ANTIBODY (BEAKER) Nonreactive Nonreactive (test code = 498) Human Resource Professional ID - DBHET.[facility] CORE ANTIBODY, [id number] 11:45:17 Test Item Value Reference Range Interpretation Comments HEPATITIS B CORE TOTAL ANTIBODY Nonreactive Nonreactive (BEAKER) (test code = 497) Human Resource Professional ID - DBHej[facility] hospitaltis B surface fadmufe6058-70-92 11:45:12 Test Item Value Reference Range Interpretation Comments Hepatitis B surface Nonreactive Nonreactive antigen (test code = 5195-3) RUSLAN (test code = RUSLAN) Specimen is considered negative for HBsAg. Lab Interpretation (test Normal code = 37860-6) [facility] [id number] 11:45:12 Test Item Value Reference Range Interpretation Comments Hepatitis B surface Nonreactive Nonreactive antigen (test code = 5195-3) RUSLAN (test code = RUSLAN) Specimen is considered negative for HBsAg. Lab Interpretation (test Normal code = 76503-2) [facility] [id number] 11:45:12 Test Item Value Reference Range Interpretation Comments Hepatitis B surface Nonreactive Nonreactive antigen (test code = 5195-3) RUSLAN (test code = RUSLAN) Specimen is considered negative for HBsAg. Lab Interpretation (test Normal code = 09322-9) [facility] [id number] 11:45:12 Test Item Value Reference Range Interpretation Comments Hepatitis B surface Nonreactive Nonreactive antigen (test code = 5195-3) RUSLAN (test code = RUSLAN) Specimen is considered negative for HBsAg. Lab Interpretation (test Normal code = 48964-4) [facility] B surface [id number] 11:45:12 Test Item Value Reference Range Interpretation Comments Hepatitis B surface Nonreactive Nonreactive antigen (test code = 5195-3) RUSLAN (test code = RUSLAN) Specimen is considered negative for HBsAg. Lab Interpretation (test Normal code = 16107-9) [facility] [id number] 11:45:12 Test Item Value Reference Range Interpretation Comments Hepatitis B surface Nonreactive Nonreactive antigen (test code = 5195-3) RUSLAN (test code = RUSLAN) Specimen is considered negative for HBsAg. Lab Interpretation (test Normal code = 38447-7) [facility] [id number] 11:45:12 Test Item Value Reference Range Interpretation Comments Hepatitis B surface Nonreactive Nonreactive antigen (test code = 5195-3) RUSLAN (test code = RUSLAN) Specimen is considered negative for HBsAg. Lab Interpretation (test Normal code = 92627-7) [facility] [id number] 11:45:12 Test Item Value Reference Range Interpretation Comments Hepatitis B surface Nonreactive Nonreactive antigen (test code = 5195-3) RUSLAN (test code = RUSLAN) Specimen is considered negative for HBsAg. Lab Interpretation (test Normal code = 06555-9) [facility] [id number] 11:45:12 Test Item Value Reference Range Interpretation Comments Hepatitis B surface Nonreactive Nonreactive antigen (test code = 5195-3) RUSLAN (test code = RUSLAN) Specimen is considered negative for HBsAg. Lab Interpretation (test Normal code = 55015-0) [facility] B surface [id number] 11:45:12 Test Item Value Reference Range Interpretation Comments Hepatitis B surface Nonreactive Nonreactive antigen (test code = 5195-3) RUSLAN (test code = RUSLAN) Specimen is considered negative for HBsAg. Lab Interpretation (test Normal code = 64408-7) [facility] B surface [id number] 11:45:12 Test Item Value Reference Range Interpretation Comments Hepatitis B surface Nonreactive Nonreactive antigen (test code = 5195-3) RUSLAN (test code = RUSLAN) Specimen is considered negative for HBsAg. Lab Interpretation (test Normal code = 46563-7) [facility] B SURFACE [id number] 11:45:12 Test Item Value Reference Range Interpretation Comments HEPATITIS B SURFACE ANTIGEN (2) Nonreactive Nonreactive (BEAKER) (test code = 2585) Specimen is considered negative for HBsAg.Hepatitis B core antibody, IgM 2021-09-25 19:51:14 Test Item Value Reference Range Interpretation Comments Hep B C IgM (test code = 42870-4) Nonreactive Nonreactive Lab Interpretation (test code = Normal 13839-7) [facility] [id number] 19:51:14 Test Item Value Reference Range Interpretation Comments Hep A IgM (test code = Nonreactive Nonreactive 44576-4) Hep B C IgM (test code = Nonreactive Nonreactive 17226-0) Hepatitis C Ab (test code = Nonreactive Nonreactive 17408-1) Hepatitis B surface antigen Nonreactive Nonreactive (test code = 5195-3) RUSLAN (test code = RUSLAN) Human Resource Professional ID - DB Lab Interpretation (test Normal code = 30664-7) [facility], [id number] 19:51:14 Test Item Value Reference Range Interpretation Comments Hep B C IgM (test code = 02754-4) Nonreactive Nonreactive Lab Interpretation (test code = Normal 65939-7) [facility], [id number] 19:51:14 Test Item Value Reference Range Interpretation Comments Hep A IgM (test code = Nonreactive Nonreactive 48200-6) Hep B C IgM (test code = Nonreactive Nonreactive 86249-9) Hepatitis C Ab (test code = Nonreactive Nonreactive 89642-0) Hepatitis B surface antigen Nonreactive Nonreactive (test code = 5195-3) RUSLAN (test code = RUSLAN) Human Resource Professional ID - DB Lab Interpretation (test Normal code = 25797-8) [facility] B core antibody, [id number] 19:51:14 Test Item Value Reference Range Interpretation Comments Hep B C IgM (test code = 44680-7) Nonreactive Nonreactive Lab Interpretation (test code = Normal 87607-9) [facility] panel, [id number] 19:51:14 Test Item Value Reference Range Interpretation Comments Hep A IgM (test code = Nonreactive Nonreactive 45434-2) Hep B C IgM (test code = Nonreactive Nonreactive 18448-2) Hepatitis C Ab (test code = Nonreactive Nonreactive 61636-9) Hepatitis B surface antigen Nonreactive Nonreactive (test code = 5195-3) RUSLAN (test code = RUSLAN) Human Resource Professional ID - DB Lab Interpretation (test Normal code = 67545-6) [facility], [id number] 19:51:14 Test Item Value Reference Range Interpretation Comments Hep B C IgM (test code = 02197-4) Nonreactive Nonreactive Lab Interpretation (test code = Normal 30825-6) [facility], [id number] 19:51:14 Test Item Value Reference Range Interpretation Comments Hep A IgM (test code = Nonreactive Nonreactive 97496-7) Hep B C IgM (test code = Nonreactive Nonreactive 00488-6) Hepatitis C Ab (test code = Nonreactive Nonreactive 16799-9) Hepatitis B surface antigen Nonreactive Nonreactive (test code = 5195-3) RUSLAN (test code = RUSLAN) Human Resource Professional ID - DB Lab Interpretation (test Normal code = 09967-5) [facility], [id number] 19:51:14 Test Item Value Reference Range Interpretation Comments Hep B C IgM (test code = 25688-2) Nonreactive Nonreactive Lab Interpretation (test code = Normal 91576-9) [facility] panel, [id number] 19:51:14 Test Item Value Reference Range Interpretation Comments Hep A IgM (test code = Nonreactive Nonreactive 83683-7) Hep B C IgM (test code = Nonreactive Nonreactive 88733-1) Hepatitis C Ab (test code = Nonreactive Nonreactive 86977-9) Hepatitis B surface antigen Nonreactive Nonreactive (test code = 5195-3) RUSLAN (test code = RUSLAN) Human Resource Professional ID - DB Lab Interpretation (test Normal code = 63207-5) [facility] B core antibody, [id number] 19:51:14 Test Item Value Reference Range Interpretation Comments Hep B C IgM (test code = 37844-9) Nonreactive Nonreactive Lab Interpretation (test code = Normal 19655-9) [facility] panel, [id number] 19:51:14 Test Item Value Reference Range Interpretation Comments Hep A IgM (test code = Nonreactive Nonreactive 73192-1) Hep B C IgM (test code = Nonreactive Nonreactive 79493-9) Hepatitis C Ab (test code = Nonreactive Nonreactive 88055-2) Hepatitis B surface antigen Nonreactive Nonreactive (test code = 5195-3) RUSLAN (test code = RUSLAN) Human Resource Professional ID - DB Lab Interpretation (test Normal code = 88868-6) [facility] B core antibody, [id number] 19:51:14 Test Item Value Reference Range Interpretation Comments Hep B C IgM (test code = 62927-6) Nonreactive Nonreactive Lab Interpretation (test code = Normal 02749-9) [facility] panel, [id number] 19:51:14 Test Item Value Reference Range Interpretation Comments Hep A IgM (test code = Nonreactive Nonreactive 34899-1) Hep B C IgM (test code = Nonreactive Nonreactive 41016-2) Hepatitis C Ab (test code = Nonreactive Nonreactive 47186-3) Hepatitis B surface antigen Nonreactive Nonreactive (test code = 5195-3) RUSLAN (test code = RUSLAN) Human Resource Professional ID - DB Lab Interpretation (test Normal code = 68009-4) [facility], [id number] 19:51:14 Test Item Value Reference Range Interpretation Comments Hep B C IgM (test code = 90117-1) Nonreactive Nonreactive Lab Interpretation (test code = Normal 57148-3) [facility] panel, [id number] 19:51:14 Test Item Value Reference Range Interpretation Comments Hep A IgM (test code = Nonreactive Nonreactive 49854-9) Hep B C IgM (test code = Nonreactive Nonreactive 39563-3) Hepatitis C Ab (test code = Nonreactive Nonreactive 54086-3) Hepatitis B surface antigen Nonreactive Nonreactive (test code = 5195-3) RUSLAN (test code = RUSLAN) Human Resource Professional ID - DB Lab Interpretation (test Normal code = 05593-3) [facility] B core antibody, [id number] 19:51:14 Test Item Value Reference Range Interpretation Comments Hep B C IgM (test code = 35747-4) Nonreactive Nonreactive Lab Interpretation (test code = Normal 18593-1) [facility] panel, [id number] 19:51:14 Test Item Value Reference Range Interpretation Comments Hep A IgM (test code = Nonreactive Nonreactive 39721-3) Hep B C IgM (test code = Nonreactive Nonreactive 27978-6) Hepatitis C Ab (test code = Nonreactive Nonreactive 47418-9) Hepatitis B surface antigen Nonreactive Nonreactive (test code = 5195-3) RUSLAN (test code = RUSLAN) Human Resource Professional ID - DB Lab Interpretation (test Normal code = 52580-3) [facility], [id number] 19:51:14 Test Item Value Reference Range Interpretation Comments Hep B C IgM (test code = 25863-8) Nonreactive Nonreactive Lab Interpretation (test code = Normal 17517-7) [facility] panel, [id number] 19:51:14 Test Item Value Reference Range Interpretation Comments Hep A IgM (test code = Nonreactive Nonreactive 13873-2) Hep B C IgM (test code = Nonreactive Nonreactive 91982-5) Hepatitis C Ab (test code = Nonreactive Nonreactive 15764-4) Hepatitis B surface antigen Nonreactive Nonreactive (test code = 5195-3) RUSLAN (test code = RUSLAN) Human Resource Professional ID - DB Lab Interpretation (test Normal code = 94803-6) [facility], [id number] 19:51:14 Test Item Value Reference Range Interpretation Comments Hep B C IgM (test code = 62141-0) Nonreactive Nonreactive Lab Interpretation (test code = Normal 89907-7) [facility], [id number] 19:51:14 Test Item Value Reference Range Interpretation Comments Hep A IgM (test code = Nonreactive Nonreactive 10917-1) Hep B C IgM (test code = Nonreactive Nonreactive 40475-1) Hepatitis C Ab (test code = Nonreactive Nonreactive 57651-5) Hepatitis B surface antigen Nonreactive Nonreactive (test code = 5195-3) RUSLAN (test code = RUSLAN) Human Resource Professional ID - DB Lab Interpretation (test Normal code = 48376-0) [facility], [id number] 19:51:14 Test Item Value Reference Range Interpretation Comments HEPATITIS A IGM ANTIBODY (BEAKER) Nonreactive Nonreactive (test code = 498) HEPATITIS B CORE IGM ANTIBODY Nonreactive Nonreactive (BEAKER) (test code = 645) HEPATITIS C ANTIBODY (BEAKER) Nonreactive Nonreactive (test code = 367) HEPATITIS B SURFACE ANTIGEN (2) Nonreactive Nonreactive (BEAKER) (test code = 2585) Human Resource Professional ID - DBHEPATITIS A ANTIBODY, [id number] 19:51:14 Test Item Value Reference Range Interpretation Comments HEPATITIS A IGM ANTIBODY (BEAKER) Nonreactive Nonreactive (test code = 498) HEPATITIS B CORE ANTIBODY, [id number] 19:51:14 Test Item Value Reference Range Interpretation Comments HEPATITIS B CORE IGM ANTIBODY Nonreactive Nonreactive (BEAKER) (test code = 645) HEPATITIS B SURFACE [id number] 19:51:14 Test Item Value Reference Range Interpretation Comments HEPATITIS B SURFACE ANTIGEN (2) Nonreactive Nonreactive (BEAKER) (test code = 2585) Specimen is considered negative for HBsAg.HEPATITIS C [id number] 19:51:14 Test Item Value Reference Range Interpretation Comments HEPATITIS C ANTIBODY (BEAKER) Nonreactive Nonreactive (test code = 367) SARS-COV2/RT-PCR ([facility])2019-11-14 17:47:00 Test Item Value Reference Range Interpretation Comments SARS-COV2/RT-PCR (test code = Negative Not Detected, Negative 0404309) SARS-COV-2 PERFORMING LAB [facility] (test code = 4058338) Negative results do not preclude SARS-CoV-2 infection [...] of the Act.Fact Sheet for Healthcare Pro viders:https://www.Hashgo/Documents/Xpert%20Xpress%20SARS%20CoV-2/Fact%20Sh eets/162-5832%77AWLW-REY-3%20HEALTHCARE%20PROVIDERS%20FACT%20SHEET.pdfFact Sheet for Healthcare Patients:https://www.bettercodes.org.FlowPay/Documents/Xpert%20Xpress%20SARS%20CoV-2/Fact%20Sheets/3023801%20SARS-COV -2%20PATIENT%20FACT%20SHEET.pdfPerforming Laboratory:[facility], [place] [address]WTS W/PLT COUNT & AUTO DIFFERENTIAL 2018-08-10 08:25:00 [...] 3438) Received comment: User comments: Slide comments:RETICULOCYTE [id number] 08:06:00 Test Item Value Reference Range Interpretation Comments RETICULOCYTE COUNT PCT (BEAKER) (test 25.0 % 0.5-1.7 H code = 575) CBC W/PLT COUNT & AUTO [id number] 09:27:00 Test Item Value Reference Range Interpretation [...] 3438) Received comment: User comments: Slide comments:RETICULOCYTE [id number] 05:01:00 Test Item Value Reference Range Interpretation Comments RETICULOCYTE COUNT PCT (BEAKER) (test 21.6 % 0.5-1.7 H code = 575) CBC W/PLT COUNT & AUTO [id number] 15:17:00 Test Item Value Reference Range Interpretation [...] H (BEAKER) (test code = 413) RETICULOCYTE [id number] 08:44:00 Test Item Value Reference Range Interpretation Comments RETICULOCYTE COUNT PCT (BEAKER) (test 23.8 % 0.5-1.7 H code = 575) BLOOD [id number] 14:01:00 Test Item Value Reference Range Interpretation Comments CULTURE (BEAKER) (test No growth in 5 days code = 1095) BLOOD [id number] 12:01:00 Test Item Value Reference Range Interpretation Comments CULTURE (BEAKER) (test No growth in 5 days code = 1095) CBC W/PLT COUNT & AUTO [id number] 11:38:00 Test Item Value Reference Range Interpretation [...] 3438) Received comment: User comments: Slide comments:RETICULOCYTE [id number] 07:44:00 Test Item Value Reference Range Interpretation Comments RETICULOCYTE COUNT PCT (BEAKER) (test 27.0 % 0.5-1.7 H code = 575) RETICULOCYTE [id number] 07:19:00 Test Item Value Reference Range Interpretation Comments RETICULOCYTE COUNT PCT (BEAKER) (test 22.7 % 0.5-1.7 H code = 575) CBC W/PLT COUNT & AUTO [id number] 12:07:00 Test Item Value Reference Range Interpretation [...] 3438) Received comment: User comments: Slide comments:RETICULOCYTE [id number] 06:14:00 Test Item Value Reference Range Interpretation Comments RETICULOCYTE COUNT PCT (BEAKER) (test 21.9 % 0.5-1.7 H code = 575) [id number] 06:02:00 Test Item Value Reference Range Interpretation Comments PHOSPHORUS (BEAKER) (test code = 3.8 mg/dL 2.3-4.7 604) [id number] 06:02:00 Test Item Value Reference Range Interpretation Comments MAGNESIUM (BEAKER) (test code = 1.8 mg/dL 1.6-2.6 627) BASIC METABOLIC [id number] 06:02:00 Test Item Value Reference Range Interpretation [...] Specimen moderately ictericCBC W/PLT COUNT & AUTO [id number] 09:09:00 Test Item Value Reference Range Interpretation [...] = 3438) Received comment: User comments: Slide comments:[id number] 04:11:00 Test Item Value Reference Range Interpretation Comments PHOSPHORUS (BEAKER) (test code = 3.3 mg/dL 2.3-4.7 604) [id number] 04:11:00 Test Item Value Reference Range Interpretation Comments MAGNESIUM (BEAKER) (test code = 1.6 mg/dL 1.6-2.6 627) BASIC METABOLIC [id number] 04:11:00 Test Item Value Reference Range Interpretation [...] FOR DIALYSIS PATIEN TS. Specimen slightly ictericRETICULOCYTE [id number] 03:54:00 Test Item Value Reference Range Interpretation Comments RETICULOCYTE COUNT PCT (BEAKER) (test 20.4 % 0.5-1.7 H code = 575) CBC W/PLT COUNT & AUTO [id number] 18:30:00 Test Item Value Reference Range Interpretation [...] = 413) CBC W/PLT COUNT & AUTO [id number] 10:51:00 Test Item Value Reference Range Interpretation [...] K/uL 0.00-0.00 H (CELLAVISION)(BEAKER) (test code = 8368) TOTAL COUNTED (BEAKER) (test code 100 = [...] 3438) Received comment: User comments: Slide comments:RETICULOCYTE [id number] 10:08:00 Test Item Value Reference Range Interpretation Comments RETICULOCYTE COUNT PCT (BEAKER) (test 14.4 % 0.5-1.7 H code = 575) CBC W/PLT COUNT & AUTO [id number] 09:30:00 Test Item Value Reference Range Interpretation [...] = 3438) Received comment: User comments: Slide comments:[id number] 03:32:00 Test Item Value Reference Range Interpretation Comments PHOSPHORUS (BEAKER) (test code = 3.5 mg/dL 2.3-4.7 604) [id number] 03:32:00 Test Item Value Reference Range Interpretation Comments MAGNESIUM (BEAKER) (test code = 1.8 mg/dL 1.6-2.6 627) BASIC METABOLIC [id number] 03:32:00 Test Item Value Reference Range Interpretation [...] ictericCT, CHEST WITH IV CONTRAST- PE TEST [id number] 14:01:00FINAL REPORT CT scan of the chest. [...] MDReport Verified Date/Time: 08/02/2018 14:01:29 Reading Location: [facility] C013X [facility] Consult Reading Room [...] 516) SOURCE(BEAKER) (test code = 2795) SCREEN, [id number] 11:15:00 Test Item Value Reference Range Interpretation Comments TEST URINE (BEAKER) (test Negative code = 583) RETICULOCYTE [id number] 04:43:00 Test Item Value Reference Range Interpretation Comments RETICULOCYTE COUNT PCT (BEAKER) (test 13.2 % 0.5-1.7 H code = 575) RAD, CHEST, 2 [id number] 03:54:00Reason for exam:->SICKLE CELL PAIN CRISISIs the [...] MDReport Verified Date/Time: 08/02/2018 03:54:52 Reading Location: [address] Reading Room CBC W/PLT COUNT & AUTO [id number] 03:04:00 Test Item Value Reference Range Interpretation [...] (BEAKER) (test code = 417) COMPREHENSIVE METABOLIC [id number] 02:42:00 Test Item Value Reference Range Interpretation [...] S NOT APPLICABLE FOR DIALYSIS PATIEN TS. Consult Notes Date/Time Note Provider Source 2023-01-21 15:45:00 [id number]:45:00Associated Order(s): [facility] Consult Hematology Consult HematologyConsult performed by: Carolina Rosa MDConsult ordered by: Brigida Butler FNPReason for consult: I was asked to see this patient by HORACIO Doyle for recommendations regarding management of sickle cell crisis.Subjective This is a 32-year-old woman with a history of sickle cell disease who is followed by Dr. Heath Inman of [facility]. No prior records are currently available. Per the patient's history, she was unable to tolerate hydroxyurea due to suicidal ideation. She reports receiving a monthly IV infusion for the past 1.5 years but is unable to tell me the name of the medication or what it is for specifically. She does take oral folate daily. She reports having had "many" blood transfusions in the past, but doesn't believe she has iron overload. She reports her baseline Hgb is around 7. She reports about 3-6 pain crises per year. She reports taking Dilaudid 8 mg about 4 times per day as needed as an outpatient.She was admitted 2 days ago with a sickle cell crisis. She reports pain all over her body, and currently reports pain that is not controlled. She just received pain medication within 30 minutes of my visit. She does have pain in the chest along with generalized across her body. She denies cough, SOB or fever. PAST MEDICAL HISTORY Sickle cell disease; pulmonary embolism; generalized anxiety disorder. FAMILY HISTORY: Noncontributory to the current illness ALLERGIESNo Known Allergies MEDICATIONSFolate 1 mg po dailyEliquis 2.5 mg po bidAlprazolam 1 mg po bid prn anxietyHydromorphone 8 mg po q6 hour prn pain SOCIAL HISTORYSocioeconomic History? Marital status: SingleTobacco Use? Smoking status: UnknownReview of SystemsReview of Systems Constitutional: Negative for appetite change and fever. HENT: Negative for trouble swallowing. Eyes: Negative for visual disturbance. Respiratory: Negative for cough and shortness of breath. Cardiovascular: Positive for chest pain. Negative for palpitations. Gastrointestinal: Positive for abdominal pain. Negative for constipation, diarrhea, nausea and vomiting. Genitourinary: Negative for dysuria and hematuria. Musculoskeletal: Positive for arthralgias and back pain. Neurological: Negative for weakness. Hematological: Does not bruise/bleed easily. Objective Vital signs for last 24 hours:Temp: [36.4 ?C (97.5 ?F)-36.9 ?C (98.5 ?F)] 36.6 ?C (97.8 ?F)Pulse: [55-87] 82Resp: [18-20] 18BP: (95-135)/(44-90) 128/78Intake/Output this shift:I/O this shift:In: 6387 [I.V.:6387]Out: - Physical ExamPhysical ExamVitals and nursing note reviewed. Constitutional: Appearance: She is ill-appearing. HENT: Mouth/Throat: Pharynx: No oropharyngeal exudate. Cardiovascular: Rate and Rhythm: Regular rhythm. Tachycardia present. Pulmonary: Effort: Pulmonary effort is normal. Breath sounds: Normal breath sounds. Abdominal: General: Bowel sounds are normal. Palpations: Abdomen is soft. There is no mass. Tenderness: There is no abdominal tenderness. Musculoskeletal: Right lower leg: No edema. Left lower leg: No edema. Lymphadenopathy: Cervical: No cervical adenopathy. Upper Body: Right upper body: No supraclavicular adenopathy. Left upper body: No supraclavicular adenopathy. Neurological: General: No focal deficit present. Mental Status: She is alert and oriented to person, place, and time. Labs Latest Reference Range & Units 01/19/23 04:58 01/20/23 05:15 01/21/23 05:55 WBC x10^3 4.30 - 11.10 10*3/?L 22.13 (H) 16.33 (H) 13.28 (H) RBC x10^6 3.93 - 5.25 10*6/?L 2.20 (L) 2.09 (L) 2.07 (L) HGB 11.6 - 15.0 g/dL 7.5 (L) 7.0 (L) 7.1 (L) HCT 35.7 - 45.2 % 20.8 (L) 19.6 (L) 19.3 (L) MCV 80.6 - 95.5 fL 94.5 93.8 93.2 MCH 25.9 - 32.8 pg 34.1 (H) 33.5 (H) 34.3 (H) MCHC 31.6 - 35.1 g/dL 36.1 (H) 35.7 (H) 36.8 (H) RDW-SD 39.0 - 49.9 fL 68.9 (H) 64.1 (H) 64.3 (H) RDW-CV 12.0 - 15.5 % 21.1 (H) 19.2 (H) 19.1 (H) PLT x10^3 166 - 358 10*3/?L 492 (H) 504 (H) 494 (H) MPV 9.5 - 12.9 fL 10.0 9.6 9.5 NRBC /100 WBC 0.0 - 10.0 /100 WBCs 2.3 3.2 3.0 NRBC x10^3 10*3/?L 0.51 0.52 0.40 GRAN MAT (NEUT) % % 48.9 45.1 IMM GRAN % % 4.30 1.40 LYMPH% % 32.1 34.2 MONO % % 10.9 14.4 EOS % % 2.5 4.1 BASO % % 1.3 0.8 GRAN MAT x10^3(ANC) 1.88 - 7.09 10*3/uL 10.82 (H) 5.99 IMM GRAN x10^3 0.00 - 0.06 10*3/uL 0.96 (H) 0.18 (H) LYMPH x10^3 1.32 - 3.29 10*3/uL 7.10 (H) 4.54 (H) MONO x10^3 0.33 - 0.92 10*3/uL 2.42 (H) 1.91 (H) EOS x10^3 0.03 - 0.39 10*3/uL 0.55 (H) 0.55 (H) BASO x10^3 0.01 - 0.07 10*3/uL 0.28 (H) 0.11 (H) RETIC% 0.51 - 1.90 % >17.97 (H) 12.54 (H) RETIC#x10^6 0.0230 - 0.0950 10*6/?L 0.4055 (H) 0.2510 (H) IRF % 2.10 - 12.60 % 45.00 (H) 44.60 (H) RETIC HEM CONC 28.1 - 35.8 pg 32.7 33.4 HJ BODIES - Present ! Present ! POLYCHROMASIA 2+ 2+ SICKLE CELLS - 2+ ! 2+ ! NA 135 - 145 mmol/L 139 136 137 K 3.5 - 5.0 mmol/L 4.4 4.2 4.3 CL 98 - 108 mmol/L 106 105 103 CO2 TOTAL 23 - 31 mmol/L 24 24 27 AGAP 2 - 16 9 7 7 BUN 7 - 23 mg/dL 16 11 10 GLUCOSE 70 - 110 mg/dL 96 88 87 CREATININE 0.50 - 1.04 mg/dL 0.65 0.48 (L) 0.50 eGFR mL/min/1.73m2 106.3 150.8 143.9 TOTAL BILI 0.1 - 1.1 mg/dL 3.0 (H) 3.2 (H) BILI UNCON 0.1 - 1.1 mg/dL 2.8 (H) BILI CONJ 0.0 - 0.3 mg/dL 0.0 CALCIUM 8.6 - 10.6 mg/dL 8.0 (L) 7.9 (L) 8.2 (L) T PROTEIN 6.3 - 8.2 g/dL 7.3 6.6 ALBUMIN 3.5 - 5.0 g/dL 4.1 3.6 ALK PHOS 34 - 122 U/L 123 (H) 74 ALTv 5 - 35 U/L 57 (H) 45 (H) AST(SGOT) 13 - 40 U/L 68 (H) 48 (H) ASSESSMENT AND PLAN:This is a 32 yo woman with sickle cell disease admitted with pain crisis. We will obtain CXR to ensure there is no concern for chest syndrome, although her exam is unremarkable. She reports that her pain is not significantly improved from admission. I recommend continuing adequate pain control, O2, IVF, folate and monitoring CBC and reticulocyte count. Since her baseline Hgb is 7, I would not recommend transfusing unless it drops significantly below that (probably 6 or lower), unless there is concern for acute chest syndrome. 48208-2Iyylvfv lmsnWG9489-58-77P64:01:31Consult noteTXT1.2.840.504320.1.13.104.2.7.2.24995 9|[id number] for patient yqzl79539-1Pudkjzx noteLN[address] Py[id number] ZDMSKGXVOCYNVABE3820-20-76F38:01:311.2.840 .685919.1.72.3.15|1.2.840.600449.1.13.104. [id number] 2023-01-19 11:23:54 7888-76-88Z72:23:54Formatting of this note [facility] is different from the original.[facility] Consult ReportRequesting Physician: Jesus Jara MDDATE OF SERVICE: 01/19/2023NAME: Ajit Ortega#: [id number] Complaint:We were asked to help manage pain Ajit Ortega, 32 year old, female who presents with pain related to sickle cell crisis.HPIPatient is a 32 year old Black or female who presented to the ED with severe abdominal pain, back pain, and BLE joint pain secondary to sickle cell crisis. She is in obvious pain. She takes Dilaudid as an outpatient. She takes 4 per day for many years. Pain is aching, throbbing, and deep into the bone. Pain medications aren't working very well. Pain management has been asked to assist with pain control.ALLERGY:Morphine, Zofran [ondansetron hcl], and Sulfa dyne SOCIAL HISTORY:Social History Tobacco Use Smoking Status Unknown Smokeless Tobacco Not on file Social History Substance and Sexual Activity Alcohol Use None Social History Substance and Sexual Activity Drug Use Not on file FAMILY HISTORY:History reviewed. No pertinent family history.MEDICATIONS:Current Facility-Administered Medications Medication Dose Route Frequency Last Rate Last Admin acetaminophen (TYLENOL) tablet 650 mg 650 mg Oral Q6HPRN ALPRAZolam (XANAX) tablet 1 mg 1 mg Oral BIDPRN apixaban (ELIQUIS) tablet 2.5 mg 2.5 mg Oral BID 2.5 mg at 01/19/23 0858 diphenhydrAMINE (BENADRYL) tablet 25 mg 25 mg Oral Q6HPRN 25 mg at 01/19/23 1057 foLIC acid (FOLATE) tablet 2 mg 2 mg Oral DAILY 2 mg at 01/19/23 0858 HYDROcodone-acetaminophen (NORCO) 10-325 mg tablet 1 tablet 1 tablet Oral Q4HPRN HYDROmorphone (DILAUDID) injection 1.5 mg 1.5 mg Slow IV Push Q4HPRN NaCl 0.9% (NS) IV infusion 1,000 mL 1,000 mL IV Infusion CONTINUOUS 125 mL/hr at 01/19/23 0715 Rate Verify at 01/19/23 0715 ondansetron (ZOFRAN (PF)) injection 4 mg 4 mg Slow IV Push Q6HPRN oxyCODONE CR (oxyCONTIN CR) 12 hr tablet 10 mg 10 mg Oral Q12H 10 mg at 01/19/23 1057 PAST MEDICAL HISTORY:History reviewed. No pertinent past medical history.SURGICAL HISTORY:History reviewed. No pertinent surgical history.REVIEW OF SYSTEMS 14 Point ROS undertaken and negative except as noted:General: (-) fever, (-) chills, (-) weight lossEndo: (-) heat intolerance, (-) diabetes, (-) cold intoleranceHEENT: (-) headache, (-) change in vision, (-) sore throatNeck: (-) pain, (-) difficulty swallowing, (-) massResp: (-) cough, (-) shortness of breath, (-) wheezingCardio: (-) chest pain, (-) palpitations, (-) syncopeGI: (+) abdominal pain, (-) vomiting, (-) diarrheaGU: (-) dysuria, (-) hematuria, (-) increased frequencySkin: (-) rash, (-) lesionVasc: (-) claudicationNeuro: (-) numbness, (-) weakness, (-) change in speechMSS: (-) muscle pain, (+) joint pain, (+) back painPsych: (-) anxiety, (-) depression, (-) psychiatric disorderPHYSICAL EXAMINATIONVitals: 01/19/23 0420 01/19/23 0720 BP: 121/73 108/65 Pulse: 82 73 Resp: 16 18 Temp: 36.7 ?C (98.1 ?F) 36.6 ?C (97.9 ?F) TempSrc: Oral SpO2: 93% 94% Weight: 73 kg (160 lb 14.4 oz) Height: 1.575 m (5' 2") Pain Scale: General: awake, alert, and oriented; no apparent distress. In painHEENT: normocephalic, atraumatic, PERRLA with EOMINeck: supple, no lymphadenopathy, no bruits, no JVDCardio: regular rate and rhythm, no murmurs, rubs, or gallopsLungs: clear to auscultation bilaterally, no rhonchi, no crackles, no wheezesAbdomen: soft; non-tender; non-distended; normoactive bowel soundsGenital/rectal: deferredExtremities: no clubbing, cyanosis, or edema. Distal pulses palpableSkin: no rashes, lesionsMuscle: normal RUE, LUE, RLE, LLE, normal ROM. TTP back and hipsNeuro: cranial nerves grossly intact; sensation grossly intact; muscle strength grossly normal in all four extremitiesLymphatics: no lymphadenopathyPsychology: normal mood and affectReview of Data:LABS - reviewed pertinent labs as below:CBCWBC (10*3/?L) Date Value 01/19/2023 22.13 (H) RBC (10*6/?L) Date Value 01/19/2023 2.20 (L) PLT (10*3/?L) Date Value 01/19/2023 492 (H) HGB (g/dL) Date Value 01/19/2023 7.5 (L) HCT (%) Date Value 01/19/2023 20.8 (L) CMPNA (mmol/L) Date Value 01/19/2023 139 K (mmol/L) Date Value 01/19/2023 4.4 CALCIUM (mg/dL) Date Value 01/19/2023 8.0 (L) CL (mmol/L) Date Value 01/19/2023 106 BUN (mg/dL) Date Value 01/19/2023 16 CREATININE (mg/dL) Date Value 01/19/2023 0.65 GLUCOSE (mg/dL) Date Value 01/19/2023 96 CO2 TOTAL (mmol/L) Date Value 01/19/2023 24 ALBUMIN (g/dL) Date Value 01/19/2023 4.1 T PROTEIN (g/dL) Date Value 01/19/2023 7.3 TOTAL BILI (mg/dL) Date Value 01/19/2023 3.0 (H) BILI UNCON (mg/dL) Date Value 01/19/2023 2.8 (H) BILI CONJ (mg/dL) Date Value 01/19/2023 0.0 ALTv (U/L) Date Value 01/19/2023 57 (H) AST(SGOT) (U/L) Date Value 01/19/2023 68 (H) ALK PHOS (U/L) Date Value 01/19/2023 123 (H) IMAGING - reviewed, pertinent results as below:No final results containing an impression from the past 48 hours were found.ASSESSMENT/PLAN:Ajit Ortega is a 32 year old female presents with the following:Acute pain secondary to sickle cell-She is followed by [facility] and gets a monthly infusion, next due at the end of the month-DC Dilaudid 8 mg PO q4h PRN (DC 01/19)-Tylenol 650 mg PO q6h PRN pain scale 1-3-[place] 10/325 mg PO q4h PRN pain scale 4-6 (incr freq 01/19)-Dilaudid 1.5 mg IV q4h PRN pain scale 7-10 (incr dose 01/19)-OxyContin 10 mg PO q12h (01/19)Low back pain-Pain medication as outlined aboveBilateral hip pain-Pain medication as outlined aboveAbdominal pain-Pain medication as outlined aboveChronic pain, long-term opioid use-Patient takes Dilaudid 8 mg 4-5/day as outpatient, prescribed by Dr. Apolinar Castrejon-Pain medication as outlined aboveMuscle spasms-Robaxin 500 mg PO q6h (01/19)Disposition:Rx:Pharmacy: [facility] [phone]) [phone] [place] [address] past medical history: Sickle cell disease, PE, generalized anxietyPast surgical history: No pertinent surgical historyFamily history: NoncontributorySocial history: No tobacco, alcohol, or illicit drug useAllergies: Morphine, Zofran, Sulfa DyneGoals: To provide safe and effective pain relief with PT/OT, wound care, during sleep, and to improve QOLPatient will require monitoring while using narcotic medications.Risks vs benefits of opioid medications were reviewed, including, but not limited to respiratory depression, accidental opioid overdose, dependency, altered mental status, drowsiness/sedation.All questions were answered.All diagnostics over last 24 hrs reviewedPlan of care discussed with patient and nurseThank you Jesus Jara MD for this kind consult and for allowing us to participate in the care of your patient. Case discussed with Dr. Henry whom agrees with assessment and plan.Please don't hesitate to call for any question.Harry Fajardo, AUTOMOTIVE SERVICE CONSULTANT, AGAP, [phone] WEEKEND RECEPTIONIST report reviewed:Ajit Jordan 1990 [address] [id number] SummarySummaryTotal Prescriptions 19Total Private Pay 4Total Prescribers 5Total Pharmacies 10/22/2022 1 ALPRAZOLAM 1 MG TABLET 60.00 30 Mo Rick [id number] [facility] 1 4.00 [place]22/2022 10/22/2022 1 HYDROMORPHONE 4 MG TABLET 120.00 24 Mo Rick [id number] [facility] ([facility] 0 100.00 [place]2022 10/22/2022 1 ALPRAZOLAM 1 MG TABLET 60.00 30 Mo Rick [id number] [facility] ([facility]) 0 4.00 [place]25/2022 09/25/2022 1 HYDROMORPHONE 4 MG TABLET 24.00 10 Lisa Fozia [id number] [facility] ([facility]) 0 48.00 [place]02/2022 08/04/2022 1 ALPRAZOLAM 1 MG TABLET 60.00 30 Mo Rick [id number] [facility] ([facility] 1 4.00 [place]04[place]2022 08/04/2022 1 HYDROMORPHONE 8 MG TABLET 60.00 15 Mo Rick [id number] [facility] ([facility]) 0 160.00 [place]04[place]2022 08/04/2022 1 ALPRAZOLAM 1 MG TABLET 60.00 30 Mo Rick [id number] [facility] ([facility]) 0 4.00 [place]16[place]2022 05/16/2022 1 HYDROMORPHONE 4 MG TABLET 24.00 6 Br Hob [id number] [facility] ([facility]) 0 80.00 [place]09[place]2022 04/09/2022 1 HYDROMORPHONE 8 MG TABLET 60.00 15 Mo Rick [id number] [facility] ([facility]) 0 160.00 [place]25[place]2022 01/25/2022 1 ALPRAZOLAM 1 MG TABLET 30.00 15 Mo Rick [id number] [facility] ([facility]) 0 4.00 [place]25[place]2022 01/25/2022 1 HYDROMORPHONE 8 MG TABLET 60.00 15 Mo Rick [id number] [facility] ([facility]) 0 160.00 [place] [place]29/2021 11/27/2021 1 HYDROMORPHONE 8 MG TABLET 60.00 10 Pa Lev [id number] [facility] ([facility]) 0 240.00 [place]26[place]2021 10/26/2021 1 ALPRAZOLAM 1 MG TABLET 30.00 15 Mo Rick [id number] [facility] ([facility]) 0 4.00 [place]25[place]2021 10/25/2021 1 HYDROMORPHONE 8 MG TABLET 60.00 30 Mo Rick [id number] [facility] ([facility]) 0 80.00 [place]2021 07/06/2021 1 CLONAZEPAM 0.5 MG TABLET 40.00 20 Mo Rick [id number] [facility] ([facility]60) 0 2.00 [place]2021 06/06/2021 1 HYDROMORPHONE 8 MG TABLET 60.00 20 Pa Lev [id number] [facility] ([facility]) 0 120.00 MME [place]06[place]2021 04/12/2021 1 HYDROMORPHONE 8 MG TABLET 60.00 60 Pa Lev [id number] [facility] ([facility]) 0 40.00 [place]10[place]2021 04/10/2021 1 HYDROCODONE-ACETAMIN 10-325 MG 20.00 5 Ji Umesh [id number] [facility] ([facility]60) 0 40.00 [place]/08/2021 03/08/2021 1 HYDROMORPHONE 8 MG TABLET 60.00 60 Pa Lev [id number] [facility] ([facility]60) 0 40.00 MME Private Pay [facility] [address] [place] [id number] ([phone]) [phone] [place] [address] ssociated attestation - Noel Henry Jr., MD - 01/20/2023 10:47 PM CDT I have reviewed the chart and agree with the plan.Noel Henry [id number] [id number], Jose [id number] MD Namrata2023-09-10T22:47:05Consult [id number] 9|[id number] for patient qukz29355-1Pjbxheu noteLNUT[address] Pd[id number] ZOARTOVFDEXTCNOT3116-54-32B47:47:051.2.840 .[id number]|1.2.840.390753.1.13.104. [id number] History and Physical Notes Date/Time Note Provider Source 2023-01-19 04:42:07 5814-03-26T06:42:07Formatting of this note [facility] is different from the original.[facility] HISTORY & PHYSICALPCP: Elias Shepherd Date of Service: 3CHIEF COMPLAINT: sickle cell crisisHistory of Present IllnessMs Ajit Ortega is a 32-year-old female with a past medical history of sickle cell, history of pulmonary embolism, generalized anxiety disorder presents as a transfer from [facility] for sickle cell crisis. Patient reports having generalized pain everywhere for the last 3 days including chest pain, back pain, abdominal pain. She was seen in the ER given fluids given pain medications offered admission but patient declined. She had ongoing pain the next few days which was unbearable. And she also ran out of her home oral Dilaudid. She came to the ER for further evaluation. In ED she was slightly tachycardic but rest of vitals are within normal limits. Routine labs noted WBC count of 20 and bilirubin of 3.0, rest of labs are unremarkable., Patient received IV fluids, fentanyl was still symptomatic and received additional fluids and IV Dilaudid. Patient was transferred to [facility] for further management of sickle cell crisis. Patient reports that she follows [facility] and gets a monthly infusion, next due at the end of the month.PAST MEDICAL HISTORY History reviewed. No pertinent past medical history.History reviewed. No pertinent surgical history.History reviewed. No pertinent family history.ALLERGIESNo Known AllergiesMEDICATIONSNo current facility-administered medications on file prior to encounter. No current outpatient medications on file prior to encounter. SOCIAL HISTORYSocial History Socioeconomic History Marital status: Single Tobacco Use Smoking status: Unknown REVIEW OF SYSTEMS(-)=Negative,(+)=Positive General: (+) fatigue, (+) malaise, (-) fever, (-) chillsSkin: (-) rash, (-) lesionHEENT: (+) headache, (-) change in vision, (-) nasal discharge, (-) sore throatNeck: (-) pain, (-) difficulty swallowingHeme: (-) bleeding disorderResp: (-) cough, (-) shortness of breath, (-) dyspnea on exertionCardio: (+) chest pain, (-) palpitations, (-) syncopeGI: (+) abdominal pain, (-) nausea, (-) vomiting, (-) diarrhea, (-) constipationGU: (-) dysuria, (-) hematuria, (-) increased frequencyEndo: (-) diabetes, (-) renal insufficiency, (-) thyroid diseaseNeuro: (-) numbness, (-) tingling, (-) weaknessBack: (+) pain, (-)spasmsMSS: (+) muscle pain, (+) joint pain, (-) claudicationPsych: (-) anxiety, (-) depressionPHYSICAL EXAMINATIONVitals: 01/19/23 0420 BP: 121/73 Pulse: 82 Resp: 16 Temp: 36.7 ?C (98.1 ?F) TempSrc: Oral SpO2: 93% Weight: 73 kg (160 lb 14.4 oz) Height: 1.575 m (5' 2") Pain Scale: NumericalGeneral: alert and oriented x 4 ; moderate distress, ill-appearingHEENT: pupils equal, round, reactive to light; extraocular movements intact; oropharynx clear; moist mucous membranes, normocephalic atraumaticNeck: supple, no lymphadenopathy, no bruits, no JVD, full range of motionLungs: clear to auscultation bilaterally, no crackles or wheezesCardio: S1, S2 normal; no murmurs, rubs or gallops, regular rate and rhythmAbdomen: soft; non-tender; non-distended; normoactive bowel soundsExtremities: no clubbing, cyanosis, or edemaSkin: no rashesNeuro: cranial nerves II through XII grossly intact; sensation grossly intact; muscle strength 5 out of 5 in all four extremities, no focal deficitsLABS - reviewed pertinent labs as below:No results found for this or any previous visit (from the past 24 hour(s)).IMAGING - reviewed, pertinent results as below: No results found for this visit on 01/19/23.ASSESSMENT/Aria Jordan is a 32 year old female with PMH as listed above, admitted to the hospital with:# Sickle cell crisisCheck CBC, CMP, reticulocyte count IV fluidsPain control: Tylenol/p.o. Dilaudid/IV DilaudidResume home folic acidPain management consult# History of pulmonary embolismContinue home Eliquis# Generalized anxiety disorderContinue home XanaxFENGI regularProphylaxis: DVT-EliquisStress Ulcer: no indication for prophylaxisCode Status: FULLDiagnosis and work up and finding and current plan was discussed with patient in detail and all question were answered and patient verballized understanding.This note was created using a voice-recognition transcribing system. Incorrect words or phrases may have been missed during proofreading. Please interpret accordingly. Jesus Jara MD 01/19/2023 04:42 [facility] [id number] and physical zbjuIS1198-12-21Y08:16:05History and physical [id number] 9|[id number] for patient iaiv46276-1Qatdeia and physical noteLN[address] Lu[id number] SDLYSWZQDYQQLFSM5723-28-80K92:16:051.2.840 .524104.1.72.3.15|[id number]. [id number]
[2023-03-30 22:34] VITALS: BMI 28.2
[2023-03-30] MEDS ORDERED: ALBUTEROL 2.5 MG/3 ML NEB SOL NEB PRN (22:46)
[2023-03-30] MEDS ORDERED: ONDANSETRON 4 MG/2 ML VIAL IV PRN (22:46)
[2023-03-30] MEDS ORDERED: ACETAMINOPHEN 500 MG TAB PO PRN (22:46)
--- NOTE | 2023-03-30 23:00 | P.HP ---
Certification for Inpatient With expected LOS: <2 Midnights Patient will require the following post-hospital care: None Practitioner: I am a practitioner with admitting privileges, knowledge of patient current condition, hospital course, and medical plan of care. Services: Services provided to patient in accordance with Admission requirements found in Title 42 Section 412.3 of the Code of Federal Regulations <MelendezAmber white - Last Filed: 03/31/23 01:16> Patient History Date of Service: 03/31/23 Reason for admission: Sickle cell crisis History of Present Illness: Ms. Ortega, a 32-year-old female patient with a past medical history of sickle cell anemia who was transferred from [facility] for further management of sickle cell pain. The onset of pain was 1 day ago and pain is generalized and long lasting not controlled by pain medication she takes at home that is Dilaudid 4 mg every 4 hours as needed. Pain increases with changing the position or transfer. Patient had similar episodes in the past. Patient has known history of sickle cell anemia with frequent episodes of pain, currently on Dilaudid by mouth as needed for pain. Patient started severe pain this morning and patient called the EMS for further help. Patient denies chest pain, shortness of breath. Patient denies fever chills, nausea or vomiting. Patie nt's vital signs are stable. On exam patient is alert oriented x3, answering all the questions appropriately. Severity of pain is 10 out of 10. CBC done in [facility] is significant for elevated WBC of 27,000, low hemoglobin 7.9 and hematocrit 21.9. Metabolic panel is within normal limits repeat labs CBC BMP mag phos, ordered. Chest x-ray ordered. Home medications list reviewed: Yes - Past Medical/Surgical History Has patient received pneumonia vaccine in the past: No Diabetic: No -: Sickle Cell Anemia -: Pulmonary Embolism -: blood clot left lung -: port-a-cath placement Psychosocial/ Personal History: Patient lives at home with her girlfriend - Family History Mother -: Other (see notes) Notes: sickle cell trait Father -: Other (see notes) Notes: sickle cell trait - Social History Alcohol use: No CD- Drugs: Yes Caffeine use: No <Amber Melendez - Last Filed: 03/31/23 01:16> Date of Service: 04/01/23 <Apolinar Castrejon - Last Filed: 04/01/23 01:33> Allergies ondansetron HCl [From Zofran] Allergy (Mild, Verified 03/28/22 00:34) Nausea/Vomiting fentanyl [From Sublimaze (PF)] Allergy (Verified 03/28/22 00:34) Anaphylaxis morphine Allergy (Verified 03/28/22 00:34) Nausea/Vomiting Sulfa (Sulfonamide Antibiotics) Allergy (Verified 03/28/22 00:34) Nausea/Vomiting Home Medications: Folic Acid [Folic Acid*] 1 mg PO DAILY 08/01/12 Cholecalciferol (Vitamin D3) [Vitamin D 1000 Iu Tab*] 50,000 unit PO EVERY 7TH DAY 09/30/20 Apixaban [Eliquis *] 2.5 mg PO BID #60 tablet 12/21/20 Promethazine Tab [Phenergan*] 25 mg PO Q6HP PRN #30 tab 04/09/22 Hydromorphone [Dilaudid*] 8 mg PO Q6HP PRN #24 tab 09/25/22 ALPRAZolam [Xanax*] 1 mg PO BIDP PRN #60 tab 10/22/22 Review of Systems 10-point ROS is otherwise unremarkable <Amber Melendez - Last Filed: 03/31/23 01:16> Physical Examination - Physical Exam General: Alert, Oriented x3 HEENT: Atraumatic, Normocephalic, PERRLA Neck: Supple, 2+ carotid pulse no bruit Respiratory: Clear to auscultation bilaterally, Normal air movement Cardiovascular: No edema, Normal pulses, Regular rate/rhythm Capillary refill: <2 Seconds Gastrointestinal: Normal bowel sounds, Soft and benign Musculoskeletal: No clubbing, No swelling, Other (pain the right little toe) Integumentary: No rashes, No breakdown, No significant lesion Neurological: Normal gait, Normal tone, Normal affect <Abmer Melendez - Last Filed: 03/31/23 01:16> - Studies Laboratory Data (last 24 hrs) 03/31/23 03/31/23 05:00 05:00 WBC 24.80 H Hgb 7.8 L Hct 22.0 L Plt Count 361 Sodium 141 Potassium 3.8 BUN 4 L Creatinine 0.47 L Glucose 87 Phosphorus 3.3 Magnesium 1.8 <Apolinar Castrejon - Last Filed: 04/01/23 01:33> Assessment and Plan - Problems (Diagnosis) (1) Anemia, sickle cell with crisis Current Visit: No Status: Acute (2) Chronic pain Current Visit: No Status: Acute (3) Sickle cell pain crisis Current Visit: No Status: Acute - Plan Acute Patient is admitted for further management of sickle cell pain crisis. Supportive measures with Dilaudid, supplemental oxygen, IV fluids. Daily labs with reticulocyte count. IV antibiotic for the elevated WBC count, will check lactic acid Chest xray negative for acute findings. Denies any fever, chills or other new ROS findings aside from acute generalized pain similar to her previous sickle cell crisis. Monitor and replete electrolytes per protocol. Reconcile and continue home medications. Continue Eliquis 2.5 mg p.o. twice daily, patient has been compliant with this medication. Full code. Discharge Plan: Home Plan to discharge in: 48 Hours - Advance Directives Does patient have a Living Will: No Does patient have a Durable POA for Healthcare: No - Code Status/Comfort Care Code Status Assessed: Yes (full code) Code Status: Full Code Physician Review: Patient Assessed, Agree with Above Assessment and Plan Critical Care: No Time Spent Managing Pts Care (In Minutes): 55 (minutes) <Amber Melendez - Last Filed: 03/31/23 01:16> Date of Service: 03/31/23 Patient well-known to me from multiple prior admission for sickle cell pain crisis. Patient is also been transferred in the past for acute chest syndrome but this work-up was completely unremarkable. She gets admitted for pain control and she requires Dilaudid 2 mg every 3-4 hours along with requesting Phenergan and Benadryl with her Dilaudid. She is scheduled to see a end finder twisting department [place] which she has seen in the past but has not routinely followed up with them. She has been prescribed Dilaudid 8 mg 3 times a day at home. However, she runs out of her prescriptions and she starts having her pain crises. She requires inpatient hospitalization for pain control. At this time, patient will be admitted to the hospital for further evaluation. <Apolinar Castrejon - Last Filed: 04/01/23 01:33>
[2023-03-30 23:24] LABS: RBC Red Blood Cell Count 2.27 M/uL (3.86-4.86)
[2023-03-30] MEDS: HYDROMORPHONE HCL 2 MG/ML inj IV PRN (23:27)
[2023-03-30 23:32] LABS: Magnesium 1.9 mg/dL (1.6-2.4); Phosphorus 3.6 mg/dL (2.5-4.9); Potassium 4.1 mEq/L (3.5-5.1)
[2023-03-31] MEDS: HYDROCODONE/APAP 5/325 MG TAB PO PRN ×3 (02:00→12:54)
[2023-03-31] MEDS: HYDROMORPHONE HCL 2 MG/ML inj IV PRN ×7 (03:16→23:20)
[2023-03-31] MEDS: NA CHLORIDE 0.9% 1,000 ML IV SCH ×4 (03:21→19:47)
[2023-03-31 06:30] LABS: Absolute Lymphocytes (CBC) 7.4 K/uL (0.7-4.9); Lymphocytes % 29.9 % (15.3-44.8); MCV 100.3 fL (80-100); MPV 8.8 fL (7.6-11.3); Platelets 361 thou/uL (152-406); RBC Red Blood Cell Count 2.19 M/uL (3.86-4.86)
[2023-03-31 06:45] LABS: Magnesium 1.8 mg/dL (1.6-2.4); Phosphorus 3.3 mg/dL (2.5-4.9); Potassium 3.8 mEq/L (3.5-5.1)
--- NOTE | 2023-03-31 08:17 | RAD REPORT ---
EXAM DESCRIPTION: RAD - Chest Pa And Lat (2 Views) - 03/31/2023 6:51 am CLINICAL HISTORY: Elevated WBC Chest pain. COMPARISON: <Comparisons> FINDINGS: Mildly prominent interstitial lung markings which is nonspecific but may indicate a viral infection. The heart is mildly enlarged in size. No displaced fractures. Left port catheter has its t ip in the right atrium. IMPRESSION: Mildly prominent interstitial lung markings could indicate interstitial infection.
[2023-03-31] MEDS ORDERED: CEFTRIAXONE 1,000 MG in NA CHLORIDE 0.9% 50 ML IVPB SCH (09:00)
[2023-03-31] MEDS ORDERED: MAGNESIUM SULFATE 1 gm IVPB 1 GM/100 ML BAG IV ONE (09:00)
[2023-03-31] MEDS: APIXABAN 2.5 MG TABLET PO SCH ×2 (09:04→19:47)
[2023-03-31 09:26] LABS: Anisocytosis 1+; Blood Morphology Comment NOTED (NOT SEEN); Howell-Jolly Bodies NOTED; Platelet Estimate ADEQ; Poikilocytosis 1+
[2023-03-31] MEDS: DIPHENHYDRAMINE 50 MG/ML VIAL IV PRN ×2 (16:01→23:19)
[2023-03-31] MEDS: PROMETHAZINE 25 MG TABLET PO PRN ×2 (16:03→23:19)
[2023-04-01] MEDS ORDERED: ALPRAZOLAM 1 MG TABLET PO PRN (01:33)
--- NOTE | 2023-04-01 01:51 | P.PN ---
Subjective Date of Service: 03/31/23 Patient continues to have significant pain. Continue with Dilaudid for pain control along with Benadryl and Phenergan for patient's request. We accessed her Port-A-Cath. Continue with pain regimen at this time. Wean off of pain medication and patient is wanting to try to go home in the morning. We will go ahead and monitor her H&H and her complete blood panel. Anticipate discharge over the next 48 to 72 hours. Patient will need to follow-up with her band and cuff cutter in [place] over the next week. Review of Systems 10-point ROS is otherwise unremarkable Physical Examination - Vital Signs Temperature: 97.9 F Blood Pressure: 107/46 Pulse: 63 Respirations: 18 Pulse Ox (%): 98 - Physical Exam General: Alert, In no apparent distress, Oriented x3 HEENT: Atraumatic, PERRLA, EOMI Neck: Supple, JVD not distended Respiratory: Clear to auscultation bilaterally, Normal air movement Cardiovascular: Regular rate/rhythm, Normal S1 S2 Gastrointestinal: Normal bowel sounds, No tenderness Musculoskeletal: No tenderness Integumentary: No rashes Neurological: Normal speech, Normal tone, Normal affect Lymphatics: No axilla or inguinal lymphadenopathy - Studies Laboratory Data (last 24 hrs) 03/31/23 03/31/23 05:00 05:00 WBC 24.80 H Hgb 7.8 L Hct 22.0 L Plt Count 361 Sodium 141 Potassium 3.8 BUN 4 L Creatinine 0.47 L Glucose 87 Phosphorus 3.3 Magnesium 1.8 Medications List Reviewed: Yes Assessment & Plan - Problems (Diagnosis) (1) Anemia, sickle cell with crisis Current Visit: No Status: Acute (2) History of pulmonary embolism Current Visit: No Status: Chronic (3) Leucocytosis Current Visit: No Status: Chronic Qualifiers: Leukocytosis type: unspecified Qualified Code(s): D72.829 - Elevated white blood cell count, unspecified - Plan Plan: 1. Sickle cell pain crisis; continue with IV fluids and pain control. Patient uses Dilaudid for pain control and is requesting it every 3 hours. Also Phenergan and Benadryl as part of patient's sickle cell pain crisis cocktail. Patient is on Dilaudid 8 mg at home and I believe she ran out of her prescriptions. Once we get her prescription restarted then we should be able to work on discharging her home with outpatient follow-up. Continue with anticoagulation Discharge Plan: Home Plan to discharge in: Greater than 2 days - Advance Directives Does patient have a Living Will: No Does patient have a Durable POA for Healthcare: No - Code Status/Comfort Care Code Status: Full Code Physician Review: Patient Assessed, Agree with Above Assessment and Plan Critical Care: No Time Spent Managing PTS Care (In Minutes): 35
[2023-04-01] MEDS: HYDROMORPHONE HCL 2 MG/ML inj IV PRN ×4 (02:06→11:47)
[2023-04-01] MEDS: NA CHLORIDE 0.9% 1,000 ML IV SCH ×3 (03:45→21:25)
[2023-04-01] MEDS: DIPHENHYDRAMINE 50 MG/ML VIAL IV PRN ×3 (05:11→21:13)
[2023-04-01] MEDS: PROMETHAZINE 25 MG TABLET PO PRN ×3 (05:11→21:12)
[2023-04-01 06:16] LABS: Absolute Lymphocytes (CBC) 3.1 K/uL (0.7-4.9); Hematocrit 16.8 % (36.0-45.0); Lymphocytes % 23.8 % (15.3-44.8); MCV 100.4 fL (80-100); MPV 8.6 fL (7.6-11.3); Platelets 322 thou/uL (152-406); RBC Red Blood Cell Count 1.68 M/uL (3.86-4.86)
[2023-04-01 06:17] LABS: Magnesium 1.8 mg/dL (1.6-2.4); Phosphorus 3.4 mg/dL (2.5-4.9); Potassium 3.8 mEq/L (3.5-5.1)
[2023-04-01 07:29] LABS: Blood Morphology Comment NOTED (NOT SEEN); Platelet Estimate ADEQ; White Blood Cell Scan OK (OK)
[2023-04-01 07:30] LABS: Anisocytosis 1+
[2023-04-01] MEDS: APIXABAN 2.5 MG TABLET PO SCH ×2 (08:42→21:12)
[2023-04-01] MEDS: FOLIC ACID 1 MG TABLET PO SCH (08:42)
[2023-04-01] MEDS ORDERED: POTASSIUM CL SA 10 MEQ TAB PO ONE (09:00)
--- NOTE | 2023-04-01 09:50 | P.CNS ---
Chief Complaint: Sickle cell crisis Allergies ondansetron HCl [From Zofran] Allergy (Mild, Verified 03/28/22 00:34) Nausea/Vomiting fentanyl [From Sublimaze (PF)] Allergy (Verified 03/28/22 00:34) Anaphylaxis morphine Allergy (Verified 03/28/22 00:34) Nausea/Vomiting Sulfa (Sulfonamide Antibiotics) Allergy (Verified 03/28/22 00:34) Nausea/Vomiting Home Medications: Folic Acid [Folic Acid*] 1 mg PO DAILY 08/01/12 Cholecalciferol (Vitamin D3) [Vitamin D 1000 Iu Tab*] 50,000 unit PO EVERY 7TH DAY 09/30/20 Apixaban [Eliquis *] 2.5 mg PO BID #60 tablet 12/21/20 Promethazine Tab [Phenergan*] 25 mg PO Q6HP PRN #30 tab 04/09/22 Hydromorphone [Dilaudid*] 8 mg PO Q6HP PRN #24 tab 09/25/22 ALPRAZolam [Xanax*] 1 mg PO BIDP PRN #60 tab 10/22/22 - Past Medical/Surgical History Diabetic: No -: Sickle Cell Anemia -: Pulmonary Embolism -: blood clot left lung -: port-a-cath placement Psychosocial/ Personal History: Patient lives at home with her girlfriend - Family History Mother Medical History: Other (see notes) Notes: sickle cell trait Father Medical History: Other (see notes) Notes: sickle cell trait - Social History Smoking Status: Unknown if ever smoked Alcohol use: No CD- Drugs: Yes Caffeine use: No Place of Residence: Home Physical Examination Temp Pulse Resp BP Pulse Ox 97.7 F 69 16 116/65 98 04/01/23 08:00 04/01/23 08:00 04/01/23 08:00 04/01/23 08:00 04/01/23 08:00 Laboratory Data (last 24 hrs) 04/01/23 04/01/23 05:20 05:20 WBC 13.10 H Hgb 5.8 L* D Hct 16.8 L Plt Count 322 Sodium 142 Potassium 3.8 BUN 6 L Creatinine 0.43 L Glucose 86 Phosphorus 3.4 Magnesium 1.8 Conclusions/Impression: Assessment & Plan - Problems (Diagnosis) (1) Anemia, sickle cell with crisis Current Visit: No Status: Acute (2) History of pulmonary embolism Current Visit: No Status: Chronic (3) Leucocytosis Current Visit: No Status: Chronic Qualifiers: Leukocytosis type: unspecified Qualified Code(s): D72.829 - Elevated white blood cell count, unspecified - Plan Plan: 1. Sickle cell pain crisis; continue with IV fluids and pain control. Patient uses Dilaudid for pain control and is requesting it every 3 hours. Also Phenergan and Benadryl as part of patient's sickle cell pain crisis cocktail. Patient is on Dilaudid 8 mg at home and I believe she ran out of her prescriptions. Once we get her prescription restarted then we should be able to work on discharging her home with outpatient follow-up. Continue with anticoagulation Discharge Plan: Home Plan to discharge in: Greater than 2 days - Advance Directives Does patient have a Living Will: No Does patient have a Durable POA for Healthcare: No - Code Status/Comfort Care Code Status: Full Code Physician Review: Patient Assessed, Agree with Above Assessment and Plan Critical Care: No Time Spent Managing PTS Care (In Minutes): 35
--- NOTE | 2023-04-01 11:53 | RAD REPORT ---
EXAM DESCRIPTION: Chest Single View CLINICAL HISTORY: 32-year-old female with leukocytosis. TECHNIQUE: Single view, AP portable chest was obtained. COMPARISON: None. FINDINGS: Left chest wall port catheter tip terminates at the SVC atrial junction. Unremarkable cardiac and mediastinal silhouette. Heart size is normal. Lungs are clear without focal opacity, pneumothorax or pleural effusions. The visualized bones are within normal limits. IMPRESSION: No acute cardiopulmonary abnormalities. Electronically signed by: Taylor Foster MD 03/31/2023 12:15 AM INTERMODAL CUST[employer]ER SERVICE Due to temporary technical issues with the PACS/Fluency reporting system, reports are being signed by the in house radiologist without review as a courtesy to ensure prompt reporting. The interpreting r adiologist is fully responsible for the content of the report.
[2023-04-01] MEDS ORDERED: ALBUTEROL 2.5 MG/3 ML NEB SOL NEB PRN (12:00)
[2023-04-01] MEDS ORDERED: MAGNESIUM SULFATE 1 gm IVPB 1 GM/100 ML BAG IV ONE (12:00)
--- NOTE | 2023-04-01 14:58 | P.PN ---
Subjective Date of Service: 04/01/23 Chief Complaint: Sickle cell crisis Subjective: No new changes, Improving Physical Examination - Vital Signs Temperature: 97.7 F Blood Pressure: 116/65 Pulse: 69 Respirations: 16 Pulse Ox (%): 98 - Physical Exam General: Alert, Oriented x3 HEENT: Atraumatic, Normocephalic Neck: Supple Respiratory: Normal air movement Cardiovascular: Regular rate/rhythm, Normal S1 S2 Gastrointestinal: Soft and benign Musculoskeletal: No swelling Neurological: Normal speech - Studies Laboratory Data (last 24 hrs) 04/01/23 04/01/23 05:20 05:20 WBC 13.10 H Hgb 5.8 L* D Hct 16.8 L Plt Count 322 Sodium 142 Potassium 3.8 BUN 6 L Creatinine 0.43 L Glucose 86 Phosphorus 3.4 Magnesium 1.8 Medications List Reviewed: Yes Assessment And Plan - Plan Assessment & Plan - Problems (Diagnosis) (1) Anemia, sickle cell with crisis Current Visit: No Status: Acute (2) History of pulmonary embolism Current Visit: No Status: Chronic (3) Leucocytosis Current Visit: No Status: Chronic Qualifiers: Leukocytosis type: unspecified Qualified Code(s): D72.829 - Elevated white blood cell count, unspecified - Plan Plan: 1. Sickle cell pain crisis; continue with IV fluids and pain control. Presently on Dilaudid 2 mg IV every 3 and she is having significant discomfort. She is on oral Dilaudid at home. We will start Dilaudid 4 mg p.o. daily and titrate to achieve better pain control. We will continue IV Dilaudid at 1 mg every 6h as needed for additional pain control. Discharge Plan: Home Plan to discharge in: In next 24 to 48 hours. - Advance Directives Does patient have a Living Will: No Does patient have a Durable POA for Healthcare: No - Code Status/Comfort Care Code Status: Full Code Physician Review: Patient Assessed, Agree with Above Assessment and Plan Critical Care: No Time Spent Managing PTS Care (In Minutes): 30. Physician Review: Patient Assessed, Agree with Above Assessment and Plan
[2023-04-01] MEDS: HYDROMORPHONE HCL 1 MG/ML INJ IV PRN ×2 (15:36→21:14)
[2023-04-02] MEDS ORDERED: NA CHLORIDE 0.9% 250 ML ONE (00:58)
[2023-04-02] MEDS: HYDROMORPHONE ORAL 4 MG TAB PO PRN ×2 (01:00→09:39)
[2023-04-02] MEDS: DIPHENHYDRAMINE 50 MG/ML VIAL IV PRN ×4 (03:37→23:19)
[2023-04-02] MEDS: PROMETHAZINE 25 MG TABLET PO PRN ×2 (03:38→23:18)
[2023-04-02] MEDS: HYDROMORPHONE HCL 1 MG/ML INJ IV PRN ×4 (03:39→23:17)
[2023-04-02 07:37] LABS: Absolute Lymphocytes (CBC) 6.4 K/uL (0.7-4.9); Lymphocytes % 37.5 % (15.3-44.8); MCV 96.8 fL (80-100); MPV 8.3 fL (7.6-11.3); Platelets 366 thou/uL (152-406); RBC Red Blood Cell Count 2.48 M/uL (3.86-4.86)
[2023-04-02 07:56] LABS: Phosphorus 3.2 mg/dL (2.5-4.9); Potassium 4.1 mEq/L (3.5-5.1)
[2023-04-02] MEDS: NA CHLORIDE 0.9% 1,000 ML IV SCH ×3 (08:38→23:17)
[2023-04-02] MEDS: FOLIC ACID 1 MG TABLET PO SCH (08:39)
[2023-04-02] MEDS: APIXABAN 2.5 MG TABLET PO SCH ×2 (08:39→20:55)
[2023-04-02 09:34] LABS: Anisocytosis 1+; Blood Morphology Comment NOTED (NOT SEEN); Platelet Estimate ADEQ; White Blood Cell Scan OK (OK)
--- NOTE | 2023-04-02 12:46 | P.PN ---
Subjective Date of Service: 04/02/23 Chief Complaint: Sickle cell crisis Subjective: No new changes, Improving Physical Examination - Vital Signs Temperature: 97.8 F Blood Pressure: 119/61 Pulse: 67 Respirations: 16 Pulse Ox (%): 95 - Physical Exam General: Alert, Oriented x3 HEENT: Atraumatic Neck: Supple Respiratory: Normal air movement Cardiovascular: Normal pulses, Regular rate/rhythm Gastrointestinal: Soft and benign Musculoskeletal: No swelling Neurological: Normal speech, Normal strength at 5/5 x4 extr - Studies Laboratory Data (last 24 hrs) 04/02/23 04/02/23 07:20 07:20 WBC 17.00 H Hgb 8.8 L D Hct 24.0 L Plt Count 366 Sodium 137 D Potassium 4.1 BUN 5 L Creatinine 0.55 Glucose 93 Phosphorus 3.2 Magnesium 2.0 Medications List Reviewed: Yes Assessment And Plan - Plan Assessment & Plan - Problems (Diagnosis) (1) Anemia, sickle cell with crisis Current Visit: No Status: Acute (2) History of pulmonary embolism Current Visit: No Status: Chronic (3) Leucocytosis Current Visit: No Status: Chronic Qualifiers: Leukocytosis type: unspecified Qualified Code(s): D72.829 - Elevated white blood cell count, unspecified - Plan Plan: 1. Sickle cell pain crisis; continue with IV fluids and pain control. Patient is now much better with oral Dilaudid doses. We will transition oral Dilaudid to 8 mg every 8h in preparation for discharge. We will continue IV Dilaudid at 1 mg every 6h as needed for additional breakthrough pain control. Discharge Plan: Home Plan to discharge in: In next 24 hours. - Advance Directives Does patient have a Living Will: No Does patient have a Durable POA for Healthcare: No - Code Status/Comfort Care Code Status: Full Code Physician Review: Patient Assessed, Agree with Above Assessment and Plan Critical Care: No Time Spent Managing PTS Care (In Minutes): 25. Physician Review: Patient Assessed, Agree with Above Assessment and Plan
[2023-04-02] MEDS: HYDROMORPHONE ORAL 4 MG TAB PO SCH ×2 (13:51→20:55)
[2023-04-03] MEDS: HYDROMORPHONE HCL 1 MG/ML INJ IV PRN ×2 (05:44→11:59)
[2023-04-03] MEDS: PROMETHAZINE 25 MG TABLET PO PRN (05:45)
[2023-04-03] MEDS: DIPHENHYDRAMINE 50 MG/ML VIAL IV PRN ×2 (05:46→11:58)
[2023-04-03] MEDS: NA CHLORIDE 0.9% 1,000 ML IV SCH (05:50)
[2023-04-03] MEDS: FOLIC ACID 1 MG TABLET PO SCH (08:44)
[2023-04-03] MEDS: HYDROMORPHONE ORAL 4 MG TAB PO SCH (08:44)
[2023-04-03] MEDS: APIXABAN 2.5 MG TABLET PO SCH (08:44)
[2023-04-03 09:12] VITALS: O2SAT 93
[2023-04-03 12:07] VITALS: BP 93/48; TEMP 96.5
--- NOTE | 2023-04-03 12:37 | P.DS ---
Admission Date: 03/30/23 Discharge Date: 04/03/23 Disposition: ROUTINE DISCHARGE Discharge Condition: GOOD Reason for Admission: Sickle cell crisis Brief History of Present Illness: 32-year-old female patient with a medical history significant for sickle cell disease was admitted for management of sickle cell crisis. She was in significant pain and oral pain medication cannot control. She was admitted for IV hydration and pain medicine Hospital Course: She was started on IV Dilaudid and this was titrated to achieve good effect. Oral pain medication was restarted and titrated to achieve adequate oral pain medicine control throughout the stay of index admission. She was deemed stable for discharge today to continue with oral medication as prescribed and outpatient follow-up with her primary doctor and other care provider for management of her sickle cell disease. Vital Signs/Physical Exam: Temp Pulse Resp BP Pulse Ox 96.5 F L 63 19 93/48 L 93 04/03/23 12:00 04/03/23 12:00 04/03/23 12:00 04/03/23 12:00 04/03/23 12:00 General: Alert, Oriented x3 HEENT: Atraumatic, Normocephalic Neck: Supple Respiratory: Normal air movement Cardiovascular: Regular rate/rhythm, Normal S1 S2 Gastrointestinal: Soft and benign Musculoskeletal: No swelling Neurological: Normal speech Laboratory Data at Discharge: WBC 17.00 thou/uL (4.3-10.9) H 04/02/23 07:20 Hgb 8.8 g/dL (12.0-15.0) L D 04/02/23 07:20 Hct 24.0 % (36.0-45.0) L 04/02/23 07:20 Plt Count 366 thou/uL (152-406) 04/02/23 07:20 Sodium 137 mEq/L (136-145) D 04/02/23 07:20 Potassium 4.1 mEq/L (3.5-5.1) 04/02/23 07:20 BUN 5 mg/dL (7-18) L 04/02/23 07:20 Creatinine 0.55 mg/dL (0.55-1.02) 04/02/23 07:20 Glucose 93 mg/dL (74-106) 04/02/23 07:20 Phosphorus 3.2 mg/dL (2.5-4.9) 04/02/23 07:20 Magnesium 2.0 mg/dL (1.6-2.4) 04/02/23 07:20 Home Medications: Folic Acid [Folic Acid*] 1 mg PO DAILY 08/01/12 Cholecalciferol (Vitamin D3) [Vitamin D 1000 Iu Tab*] 50,000 unit PO EVERY 7TH DAY 09/30/20 Apixaban [Eliquis *] 2.5 mg PO BID #60 tablet 12/21/20 Promethazine Tab [Phenergan*] 25 mg PO Q6HP PRN #30 tab 04/09/22 Hydromorphone [Dilaudid*] 8 mg PO Q6HP PRN #24 tab 09/25/22 ALPRAZolam [Xanax*] 1 mg PO BIDP PRN #60 tab 10/22/22 Diet: Regular Activity: Ad gina
[2023-04-03] MEDS ORDERED: HEPARIN 500 UNIT/5 ML SYR IV PRN (13:31)
== END 2023-04-03 14:18 | disposition home or self-care (01) | DRG 812 ==
LOC: 4TH 22:07
PROVIDERS: ADMIT Hospitalist; ATTEND Internal Medicine Nephrology
DX: D57.00 Hb-SS disease with crisis, unspecified (principal); G89.29 Other chronic pain; D72.829 Elevated white blood cell count, unspecified; Z88.5 Allergy status to narcotic agent; Z88.2 Allergy status to sulfonamides; Z88.8 Allergy status to other drugs, medicaments and biological substances; Z79.01 Long term (current) use of anticoagulants; Z79.899 Other long term (current) drug therapy; Z86.711 Personal history of pulmonary embolism
CPT/HCPCS: 36415; 71045; 71046; 80048; 82947; 83605; 83735; 84100; 85025; 85044; 86850; 86900; 86901; 86920; 94760; J0696; J1170; J1200; J1642; J3475; J7030; J7050; P9016; Q0169